=== PATIENT | female | born 1940 | race Caucasian/White ===

== ENCOUNTER 2016-03-29 20:23 | Inpatient (IN) | payer MEDICARE, BC ==
[2016-03-29 20:57] LABS: Basophils # (A) 0.1 k/uL (0-0.2); Basophils % (A) 1 %; CH 30.2; Eosinophils # (A) 0.1 k/uL (0-0.7); Eosinophils % (A) 1 %; HCT 44.2 % (34.0-46.0); HDW 2.35; HGB 13.9 gm/dL (11.4-16.0); Luc # (Auto) 0.12; Luc % (Auto) 1; Lymphocytes # (A) 1.9 k/uL (1.0-4.8); Lymphocytes % (A) 15 %; MCH 29.8 pg (25.0-35.0); MCHC 31.4 g/dL (31.0-37.0); Mean Platelet Volume 7.9; Monocytes # (A) 0.6 k/uL (0-1.0); Monocytes % (A) 5 %; Neutrophils # (A) 9.8 k/uL (1.3-7.7); Neutrophils % (A) 77 %; RBC 4.65 m/uL (3.80-5.40); RDW 12.7 % (11.5-15.5); WBC 12.6 k/uL (3.8-10.6)
[2016-03-29 21:14] LABS: Calcium 10.4 mg/dL (8.4-10.2); Potassium 4.7 mmol/L (3.5-5.1); Total Bilirubin 0.6 mg/dL (0.2-1.3); Total Protein 8.1 g/dL (6.3-8.2)
[2016-03-29 21:15] LABS: INR 1.2 (<1.1); Partial Thromboplastin Time 25.5 sec (22.0-30.0); Prothrombin Time 11.5 sec (9.0-12.0)
[2016-03-29 21:35] LABS: Creatine Kinase 48 U/L (30-135)
--- NOTE | 2016-03-29 21:37 | XR ---
EXAMINATION TYPE: XR chest 1V portable DATE OF EXAM: 03/29/2016 9:01 PM COMPARISON: August 07, 2013 HISTORY: Pain TECHNIQUE: Single frontal view of the chest is obtained. FINDINGS: EKG leads are noted. There is mild silhouetting of the pulmonary vasculature bilaterally by a subtle fine reticular pattern of increased density. This suggests mild interstitial phase pulmonar y edema if clinically corroborated. Cardiac silhouette size appears top normal. Pleural spaces are negative. Bones and soft tissues are unremarkable. IMPRESSION: SUBTLE BILATERAL INTERSTITIAL PATTERN SUGGESTS MILD INTERSTITIAL PHASE PULMONARY EDEMA.
--- NOTE | 2016-03-29 21:45 | ED ---
Chest Pain HPI - General Chief Complaint: Chest Pain Stated Complaint: Dr Mcadams/Chest tightness Time Seen by Provider: 03/29/16 20:37 Source: patient, family, RN notes reviewed Mode of arrival: ambulatory Limitations: no limitations - History of Present Illness Initial Comments: This patient is a 75-year-old woman who complains of some episodes of chest pain which is been going on yesterday and today. The patient states that she gets a heavy feeling when she exerts like going up and down the stairs. She states that it is over the sternal area, mild, heavy, and intermittent. She states that it goes away after she sits and rests for moment. The patient also has been having a little bit of dyspnea when she exerts herself. She denies diaphoresis, nausea or vomiting, dyspnea at rest, palpitations or syncope. The patient notes that probably last week she had cold-like symptoms and thought that she had cold or flu. She still has just a little bit of a nonproductive cough, though she states that symptoms are better than they had been. She had not had any preceding chest pains. MD Complaint: chest pain Onset/Timin -: days(s) Onset: during exertion Pain Location: substernal Pain Radiation: none Severity: mild Quality: heaviness Consistency: intermittent Improves With: rest Worsens With: exertion Other Symptoms: cough Treatments Prior to Arrival: none - Related Data Home Medications Medication Instructions Recorded Confirmed Calcium Carbonate [Calcium] 600 mg PO DAILY 03/29/16 03/29/16 Fenofibrate Nanocrystallized 145 mg PO HS 03/29/16 03/29/16 [Fenofibrate] Levothyroxine Sodium [Synthroid] 125 mcg PO DAILY 03/29/16 03/29/16 Loratadine [Claritin] 10 mg PO DAILY 03/29/16 03/29/16 Metoprolol Succinate (ER) [Toprol 25 mg PO HS 03/29/16 03/29/16 Xl] Metoprolol Succinate (ER) [Toprol 50 mg PO [facility] 03/29/16 03/29/16 Xl] Multivit-Min/FA/Lycopene/Lut 1 tab PO DAILY 03/29/16 03/29/16 [Centrum Silver Tablet] Omeprazole 20 mg PO DAILY PRN 03/29/16 03/29/16 Previous Rx's Medication Instructions Recorded Furosemide [Lasix] 20 mg PO DAILY #10 tab 03/29/16 Allergies Allergy/AdvReac Type Severity Reaction Status Date / Time clarithromycin [From Biaxin] Allergy Unknown Verified 03/29/16 20:55 gemifloxacin [From Factive] Allergy Unknown Verified 03/29/16 20:55 prednisone Allergy Unknown Verified 03/29/16 20:55 Review of Systems ROS Statement: Those systems with pertinent positive or pertinent negative responses have been documented in the HPI. ROS Other: All systems not noted in ROS Statement are negative. Constitutional: Denies: fever, chills, weakness Respiratory: Reports: cough. Denies: dyspnea, wheezes, hemoptysis Cardiovascular: Reports: chest pain, dyspnea on exertion, orthopnea. Denies: palpitations, edema, syncope Gastrointestinal: Denies: abdominal pain, nausea, vomiting Genitourinary: Denies: dysuria, hematuria Musculoskeletal: Denies: back pain Skin: Denies: rash Neurological: Denies: headache, weakness, numbness EKG Findings - EKG Results: EKG: interpreted by KARLENE, sinus rhythm, normal axis, normal QRS, normal ST/T EKG shows: tachycardia (Rate 111) Past Medical History Past Medical History: Hyperlipidemia, Hypertension, Thyroid Disorder History of Any Multi-Drug Resistant Organisms: None Reported Past Surgical History: Section, Orthopedic Surgery Additional Past Surgical History / Comment(s): total right knee replacement Past Psychological History: No Psychological Hx Reported Smoking Status: Never smoker Past Alcohol Use History: None Reported Past Drug Use History: None Reported General Exam Limitations: no limitations General appearance: alert, in no apparent distress Head exam: Present: atraumatic, normocephalic Eye exam: Present: normal appearance. Absent: scleral icterus, conjunctival injection ENT exam: Present: normal oropharynx Neck exam: Present: normal inspection Respiratory exam: Present: rales (Bilateral lower lung stoll). Absent: respiratory distress, wheezes, rhonchi, stridor, chest wall tenderness, accessory muscle use, decreased breath sounds, prolonged expiratory Cardiovascular Exam: Present: regular rate, normal rhythm, normal heart sounds. Absent: systolic murmur, diastolic murmur, rubs, gallop GI/Abdominal exam: Present: soft. Absent: distended, tenderness, guarding, rebound, mass Extremities exam: Present: normal inspection, normal capillary refill. Absent: pedal edema, calf tenderness Back exam: Present: normal inspection. Absent: CVA tenderness (R), CVA tenderness (L) Neurological exam: Present: alert Skin exam: Present: warm, dry, intact, normal color. Absent: rash, cyanosis, diaphoretic, erythema, petechiae, pallor, mottled Course Vital Signs 03/29/16 03/29/16 03/29/16 20:32 21:02 21:37 Temperature 97.6 F 98.3 F Pulse Rate 102 H 88 Respiratory 20 22 20 Rate Blood Pressure 175/77 156/92 O2 Sat by Pulse 88 L 97 Oximetry 03/29/16 03/29/16 22:00 22:45 Temperature Pulse Rate 97 99 Respiratory 18 20 Rate Blood Pressure 155/70 153/72 O2 Sat by Pulse 97 85 L Oximetry - Reevaluation(s) Reevaluation #1: 03/29/16 23:02 Patient ambulated to the bathroom prior to discharge and pulse oximetry is down to 85% and she does have some dyspnea, therefore will admit patient to have the echocardiogram and cardiology consultation. Sats have improved with the nasal cannula. Chest Pain MDM - MDM Patient is a 75-year-old woman who presents mainly with exertional dyspnea and on the exam she does have some findings suggestive of mild CHF. In addition her room air pulse oximetry was low on arrival. The workup does reveal some mild CHF. I discussed the findings with the patient and I was going to admit her in the hospital to have echocardiogram and cardiology consultation, but the patient states that she would like to have this done as outpatient possible, and she does feel better following medications. Will give a course of diuretics to use at home and we have reviewed appropriate return parameters. She is going to call the cardiology office in the morning to establish follow- up if there is any difficulty with this plan return here to have the workup as an inpatient. At this point I suspect the patient may have had some mild cardiomyopathy following the upper respiratory infection as she does not describe any symptoms suggestive of a missed WI or ischemia. Disposition Clinical Impression: CHF (congestive heart failure) Disposition: ADMITTED IP TO THIS HOSP Condition: Fair Instructions: Heart Failure (ED) Additional Instructions: As we discussed, follow-up with the applications consultant's tomorrow or the next day. Call the office first thing for an appointment. They will perform an echocardiogram. If your symptoms recur return to the hospital and this test and a cardiology consultation will be arranged as an inpatient. Should any of the other symptoms that we discussed develop return immediately. Prescriptions: Furosemide [Lasix] 20 mg PO DAILY #10 tab Referrals: Paul Bonilla DO [Primary Care Provider] - 1-2 days Melvin Oviedo MD [STAFF PHYSICIAN] - 1-2 days
[2016-03-29 21:47] LABS: Creatine Kinase MB 1.2 ng/mL (0.0-2.4); Troponin I <0.012 ng/mL (0.000-0.034)
[2016-03-29] MEDS ORDERED: NITROGLYCERIN OINT 1 INCH/GM PACKET TOPICAL STA (21:54)
[2016-03-29] MEDS ORDERED: FUROSEMIDE 10 MG/ML 4 ML VIAL IV STA (21:54)
[2016-03-29] MEDS ORDERED: PANTOPRAZOLE 40 MG TABLET PO PRN (23:01)
[2016-03-30] MEDS: FUROSEMIDE 10 MG/ML 4 ML VIAL IV SCH ×2 (01:04→12:01)
[2016-03-30 03:38] VITALS: BMI 26.6
[2016-03-30] MEDS ORDERED: METOPROLOL TARTRATE 50 MG TAB PO SCH (09:00)
[2016-03-30] MEDS: CALCIUM CARBONATE 500 MG CHEWABLE PO SCH (09:01)
[2016-03-30] MEDS: MULTIVITAMINS, THERA 1 EACH TAB PO SCH (09:02)
[2016-03-30] MEDS: NITROGLYCERIN OINT 1 INCH/GM PACKET TOPICAL SCH ×2 (09:02→12:00)
[2016-03-30] MEDS: LEVOTHYROXINE 125 MCG TAB PO SCH (09:02)
[2016-03-30] MEDS ORDERED: NITROGLYCERIN SL TABS 0.4 MG TAB SUBLINGUAL PRN (10:12)
[2016-03-30 10:47] LABS: Cholesterol 168 mg/dL (<200); HDL Cholesterol 34 mg/dL (40-60); Triglycerides 156 mg/dL (<150)
--- NOTE | 2016-03-30 11:50 | ECHOF ---
Referral Reason:Heart Failure MEASUREMENTS -------- HEIGHT: 157.5 cm WEIGHT: 65.8 kg BP: 138/70 RVIDd: 2.1 cm (< 3.3) IVSd: 1.1 cm (0.6 - 1.1) LVIDd: 4.3 cm (3.9 - 5.3) LVPWd: 1.2 cm (0.6 - 1.1) IVSs: 1.8 cm LVIDs: 3.2 cm LVPWs: 1.7 cm LA Diam: 3.8 cm (2.7 - 3.8) LAESV Index (A-L): 31.08 ml/m Ao Diam: 2.5 cm (2.0 - 3.7) AV Cusp: 1.2 cm (1.5 - 2.6) LA Diam: 4.0 cm (2.7 - 3.8) MV EXCURSION: 9.024 mm (> 18.000) MV EF SLOPE: 17 mm/s (70 - 150) EPSS: 1.0 cm MV E Lobo: 1.38 m/s MV DecT: 273 ms MV A Lobo: 0.03 m/s MV E/A Ratio: 53.54 AV maxP.29 mmHg AV meanP.45 mmHg AR PHT: 2656 ms RAP: 5.00 mmHg RVSP: 43.21 mmHg FINDINGS -------- Sinus rhythm. This was a technically good study. There is borderline concentric left ventricular hypertrophy. Overall left ventricular systolic function is normal with, an EF between 55 - 60 %. The right ventricle is normal in size. LA is midly dilated 29-33ml/m2. The right atrial size is normal. Aortic valve is trileaflet and is mildly thickened. There is mild aortic regurgitation. Peak/mean gradient across the Aortic Valve is 19.29mmHg / 9.45mmHg. The mitral valve leaflets are mildly thickened. Mild mitral annular calcification present. There is trace mitral regurgitation. The peak and mean MV gradients are 20.38mmHg 8.84mmHg as measured by doppler. Mild mitral stenosis. Mild tricuspid regurgitation present. There is mild pulmonary hypertension. The right ventricular systolic pressure, as measured by Doppler, is 43.21mmHg. Pulmonic valve appears structurally normal. The aortic root size is normal. Normal inferior vena cava with normal inspiratory collapse consistent with estimated right atrial pressure of 5 mmHg. There is a small, generalized pericardial effusion present. CONCLUSIONS -------- 1. Sinus rhythm. 2. Peak/mean gradient across the Aortic Valve is 19.29mmHg / 9.45mmHg. 3. The mitral valve leaflets are mildly thickened. 4. Mild mitral annular calcification present. 5. There is trace mitral regurgitation. 6. The peak and mean MV gradients are 20.38mmHg 8.84mmHg as measured by doppler. 7. Mild mitral stenosis. 8. Mild tricuspid regurgitation present. 9. There is mild pulmonary hypertension. 10. The right ventricular systolic pressure, as measured by Doppler, is 43.21mmHg. 11. Pulmonic valve appears structurally normal. 12. This was a technically good study. 13. The aortic root size is normal. 14. There is a small, generalized pericardial effusion present. 15. There is borderline concentric left ventricular hypertrophy. 16. Overall left ventricular systolic function is normal with, an EF between 55 - 60 %. 17. The right ventricle is normal in size. 18. LA is midly dilated 29-33ml/m2. 19. The right atrial size is normal. 20. Aortic valve is trileaflet and is mildly thickened. 21. There is mild aortic regurgitation. CENTRIFUGE SEPARATOR TENDER: Karen Raygoza RDCS
--- NOTE | 2016-03-30 13:21 | ECHOS ---
DATE OF SERVICE: 03/30/2016 AGE: 75Y SEX: F HT: 62 WT: 145 lbs. Protocol Hamzah: X Others: Stress Echo Stage: II Dur. of Exercise: 4 minutes *Heart Rate Blood Pressure *Rest: 86 Rest: 120/61 * *Max. Achieved: 125 Maximum BP: 147/56 85% PMHR: 125 100% PMHR: 147 *METS: 5 INDICATIONS: Chest pain. MEDICATIONS: CLINICAL INFORMATION: Patient admitted to the hospital with chest pressure suggestive of angina, some left ventricular dysfunction, possibly felt to be secondary to ischemia, history of hypertension, family history of coronary artery disease. Patient is not a smoker. Not a diabetic. Patient has mild aortic regurgitation, mild mitral regurgitation and mitral annular stenosis. Resting ECG shows sinus rhythm, rate of 86 beats per minute, LA interval of 0.16, QRS of 0.08, normal ST-T waves. Utilizing a standard Hamzah protocol, a symptom limited treadmill test was performed. Patient exercised for total of 4 minutes, attained a peak heart rate of 125 beats per minute, which is approximately 85% predicted maximum heart rate. Exercise test was terminated because of fatigue and leg cramps. Patient did not have any significant ST segment deviations indicative of ischemia. Minimal J-point depression was noted without any symptoms. Patient's baseline images show normal thickening and contractility. Postexercise images show improved contractility and thickening consistent with normal stress echocardiogram. STOCKROOM WORKER IMPRESSION: 1. Normal stress echocardiogram. 2. Patient has average level of cardiopulmonary fitness as indicated by VO2 max and METs. The patient attained peak metabolic activity equivalent to 5 METs.
--- NOTE | 2016-03-30 14:31 | CONS ---
DATE OF CONSULTATION: PATIENT IS ALLERGIC TO ( ) ERYTHROMYCIN, PREDNISONE, ( )FLOXACIN. Patient admitted to the hospital with increasing chest heaviness and pressure with exertion and also some shortness of breath. Patient was found to have mild pulmonary congestion. Patient is known to have long-standing history of hypertension for over 10 years, has been on metoprolol 75 mg p.o. daily. Patient is also on Lasix 20 mg p.o. daily at home. Patient is on Fenofibrate 160 mg p.o. daily. Patient is a nonsmoker. Other medications include: 1. Protonix 40 mg p.o. daily. 2. Levothyroxine 125 mcg p.o. daily. 3. Aspirin 1 tablet daily. Patient is a nonsmoker, not a diabetic. No previous history of myocardial infarction. Patient is fairly active, walks about 1 and 1/4 mile every day. Lives with her . Patient has 2 sons and one daughter and babysits her grandkids and fairly active. Patient has been experiencing these symptoms of exertional chest pain, heaviness and pressure, across the epicardium, associated with some shortness of breath for the last couple of weeks. Patient's symptoms highly suggestive of new onset of angina. Needs work-up for angina. We will get an echocardiogram and a stress echo and patient is on appropriate medications and has been on nitrates and beta blockers. Patient needs to be checked for any lipid panel, was not done. Patient's past history and review of systems are essentially unremarkable other than what is stated in the presenting illness. Physical examination revealed well-developed, well-nourished 75-year-old female not in acute distress, oriented x3 with a pulse rate of 90 beats per minute and regular, blood pressure of 120/74, respirations 20. Head normocephalic. HEENT unremarkable. Neck is supple. No JVD. CARDIAC EXAMINATION: Regular rate and rhythm. S1 and S2. Early diastolic murmur noted in the aortic area, grade 2/6 and S3 gallop is noted. Lungs are clinically clear to auscultation and percussion. ABDOMEN: Soft, no organomegaly. Active bowel sounds. EXTREMITIES: Peripheral pulses. No pedal edema. SENIOR DIRECTOR examination: Grossly within normal limits. We will also do BNP levels and get the stress echo. We will also get a lipid panel. ASSESSMENT: 1. New onset of unstable angina. 2. Left ventricular dysfunction, probably secondary to ischemia without any overt failure. 3. Hypertension. 4. Rule out hyperlipidemia. RECOMMENDATIONS: Concur with current therapy. Will proceed with stress echocardiogram and echocardiogram and get BNP levels and lipid panel. If lipids are elevated, we will start her on lipid-lowering agents.
--- NOTE | 2016-03-30 14:47 | CONS ---
DATE OF CONSULTATION: ADDENDUM: Addendum to the additional diagnosis is mild mitral stenosis. RECOMMENDATIONS: Patient advised to increase the Lopressor to 50 mg p.o. b.i.d., continue Lasix 40 mg p.o. daily along with Fenofibrate, aspirin, nitroglycerin as needed. Patient advised to follow with me in 1 to 2 weeks from now. Patient had a normal stress echo and normal stress echo. Echocardiogram showed mild aortic regurgitation, mild mitral regurgitation and beta rosario is recommended because of mitral stenosis.
[2016-03-30] MEDS: IPRATROPIUM-ALBUTEROL 3 ML NEB INHALATION SCH ×3 (15:36→19:30)
--- NOTE | 2016-03-30 16:03 | HP ---
DATE OF ADMISSION: 03/30/2016 PRESENTING COMPLAINT: Short of breath, cough. HISTORY OF PRESENTING COMPLAINT: This is a very pleasant 75-year-old patient of Dr. Jj whose chronic stable medical conditions include hypertension, hyperlipidemia, hypothyroid. The patient does not have any prior cardiac history. Patient has been battling a cold for about 3 weeks, for one week she has become more short of breath and some chest tightness. Denies any edema. No orthopnea. She has got a cough. No fever. Feels congested. Patient went to her family doctor. She was told she has an enlarged heart and possibly CHF and came to the ER, given Lasix. The patient now having some chest tightness. REVIEW OF SYSTEMS: CONSTITUTIONAL: Tired. HEENT: None. RESPIRATORY: As above. CARDIOVASCULAR: As above. GASTROINTESTINAL: None. GENITOURINARY: None. MUSCULOSKELETAL: None. Dermatological: None. HEMATOLOGICAL: None. LYMPHATICS: None. PSYCHIATRY: None. NEUROLOGICAL: None. PAST MEDICAL HISTORY: Hypertension, hyperlipidemia and hypothyroid. PAST SURGICAL HISTORY: , right total knee replacement. SOCIAL HISTORY: No smoking. No alcohol. . FAMILY HISTORY: Noncontributory to presentation. HOME MEDICATIONS: 1. Omeprazole 20 mg daily p.r.n. 2. Centrum Silver 1 tablet p.o. daily. 3. Toprol-XL 25 mg at night. 50 mg in morning. 4. ( ). 5. Biaxin. 6. Prednisone. On examination vital signs on presentation: Temperature 97.6, pulse 102, respirations 20, blood pressure 175/77, pulse ox 88% on room air. Repeat 156/92. GENERAL APPEARANCE: Average build, sitting up, not in distress. EYES: Pupils equal. Conjunctivae normal. HEENT: External appearance of nose and ears normal. Oral cavity normal. NECK: JVD not raised. Mass not palpable. RESPIRATORY: Effort increased. LUNGS: Bilateral coarse basal crackles. CARDIOVASCULAR: First and second sounds normal. No edema. ABDOMEN: Soft, nontender. Liver and spleen not palpable. LYMPHATIC: No lymph nodes palpable in the neck and axilla. PSYCHIATRY: Alert and oriented x3. Mood and affect normal. Dermatological: Pupils equal. Cranial nerves grossly intact. Power and sensation grossly intact. INVESTIGATIONS: White count 12.6, hemoglobin 13.9. Potassium 4.7. BUN 21, creatinine 1.16. Troponin is actually negative, proBNP 496. Chest x-ray shows some bilateral interstitial pattern. 2-D echocardiogram shows preserved LV function. EF 55% to 60%. ASSESSMENT: 1. Possible bilateral viral pneumonitis. Given that patient proBNP is low, no edema. No JVD. Minimal orthopnea. 2. Possible mild congestive heart failure exacerbation on presentation from diastolic dysfunction. 3. Essential hypertension. 4. Hyperlipidemia. 5. Hypothyroidism. PLAN: Patient initially put on Lasix. We will put the patient on Claritin-D, bronchodilator. Home medications will be resumed. Cardiology was consulted, who ordered a stress test. Care was discussed in detail with the patient and at the bedside. Questions were answered.
[2016-03-30] MEDS: guaiFENesin 600 MG TABLET.ER PO SCH (16:14)
[2016-03-30] MEDS: LORATADINE-PSEUDOEPH 5-120 MG 1 EACH TAB.ER.12H PO SCH (16:14)
[2016-03-30] MEDS: ENOXAPARIN 40 MG/0.4 ML SYRINGE SQ SCH (16:15)
[2016-03-30] MEDS ORDERED: METOPROLOL TARTRATE 25 MG TAB PO SCH (21:00)
[2016-03-30] MEDS ORDERED: FENOFIBRATE 160 MG TAB PO SCH (21:00)
[2016-03-31] MEDS: guaiFENesin 600 MG TABLET.ER PO SCH ×2 (00:39→08:20)
[2016-03-31] MEDS: LORATADINE-PSEUDOEPH 5-120 MG 1 EACH TAB.ER.12H PO SCH ×2 (00:39→08:19)
[2016-03-31] MEDS: METOPROLOL TARTRATE 50 MG TAB PO SCH ×2 (00:39→08:19)
[2016-03-31] MEDS: CALCIUM CARBONATE 500 MG CHEWABLE PO SCH (00:40)
[2016-03-31] MEDS: ASPIRIN 325 MG TAB PO SCH ×2 (00:41→08:19)
[2016-03-31 07:18] VITALS: BP 150/63; RESP 16; TEMP 97.5
[2016-03-31] MEDS: LEVOTHYROXINE 125 MCG TAB PO SCH (08:19)
[2016-03-31] MEDS: MULTIVITAMINS, THERA 1 EACH TAB PO SCH (08:19)
[2016-03-31] MEDS: ENOXAPARIN 40 MG/0.4 ML SYRINGE SQ SCH (08:20)
[2016-03-31] MEDS ORDERED: LORATADINE 10 MG TAB PO SCH (09:00)
[2016-03-31] MEDS ORDERED: FUROSEMIDE 40 MG TAB PO SCH (09:00)
[2016-03-31] MEDS: IPRATROPIUM-ALBUTEROL 3 ML NEB INHALATION SCH ×2 (09:12→12:04)
[2016-03-31 12:16] VITALS: PULSE 84
--- NOTE | 2016-04-01 15:28 | DS ---
DATE OF ADMISSION: 03/29/2016 DATE OF DISCHARGE: 03/31/2016 FINAL DIAGNOSES: 1. Possible bilateral viral pneumonitis. 2. 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 3. Essential hypertension. 4. Hyperlipidemia. 5. Hypothyroidism. HOSPITAL COURSE: This patient for about a month has been having short of breath, cough, some ( ) sputum production. Physical exam did show bilateral crackles. A 2-D echo showed preserved LV function, even with Lasix the crackles did not change much. I think probably the patient has viral pneumonitis. BNP was not bad. There is low white count. The patient does feel better with better with Claritin-D and some bronchodilators. If the patient's symptoms do not get better as an outpatient, she will need a ( ) CT scan to rule out any pulmonary fibrosis, but I still think it is primarily a viral pneumonitis. CONSULTATIONS: Dr. Delta Schaefer from Cardiology. Patient did have a stress echocardiogram that was unremarkable. Day of discharge care was discussed in detail with the patient. On examination showed bilateral crackles bases. A 2-D echo showed preserved LV function. LDL is 108. Troponins are negative. ProBNP if 496; repeat is 574. DISCHARGE MEDICATIONS: 1. Calcium 600 mg p.o. daily. 2. TriCor 145 p.o. q.h.s. 3. Lasix 20 mg p.o. daily. 4. Synthroid 125 mcg p.o. daily. 5. Centrum Silver 1 tablet p.o. daily. 6. Omeprazole 20 mg daily. 7. Ventolin HFA 1 to 2 puffs q.6 p.r.n. 8. Lasix 20 mg daily. 9. Claritin-D 1 tablet twice a day, 14 tablets. 10. Lopressor 50 mg p.o. b.i.d., new dose. 11. Mucinex 1200 mg p.o. q.12. Follow with Dr. Oviedo in 10 days; follow with Dr. Bonilla in 3 days. DC planning more than 35 minutes.
== END 2016-03-31 15:19 | disposition home or self-care (01) | DRG 193 ==
LOC: EC 20:23 → 3SUR 22:57
PROVIDERS: ADMIT Hospitalist; ATTEND Hospitalist
PROC: 4A02XM4 Measurement of Cardiac Total Activity, External Approach (ICD-10-PCS; principal; 2016-03-30)
PROC: B246ZZZ Ultrasonography of Right and Left Heart (ICD-10-PCS; 2016-03-30)
DX: J12.9 Viral pneumonia, unspecified (principal); I50.33 Acute on chronic diastolic (congestive) heart failure; I11.0 Hypertensive heart disease with heart failure; E78.5 Hyperlipidemia, unspecified; R00.0 Tachycardia, unspecified; E03.9 Hypothyroidism, unspecified; I08.0 Rheumatic disorders of both mitral and aortic valves; Z79.899 Other long term (current) drug therapy; Z88.8 Allergy status to other drugs, medicaments and biological substances; Z88.1 Allergy status to other antibiotic agents; Z96.651 Presence of right artificial knee joint; Z86.19 Personal history of other infectious and parasitic diseases
CPT/HCPCS: 36415; 71010; 80053; 80061; 82550; 82553; 83735; 83880; 84484; 85025; 85610; 85730; 93005; 93017; 93306; 93350; 94640; 94760; 96374; 99285

== ENCOUNTER 2016-04-01 09:39 | Inpatient (IN) | payer MEDICARE, BC ==
[2016-04-01] MEDS ORDERED: IBUPROFEN 600 MG TAB PO STA (10:01)
[2016-04-01] MEDS ORDERED: ACETAMINOPHEN TAB 500 MG TAB PO STA (10:01)
--- NOTE | 2016-04-01 10:16 | ED ---
General Adult HPI - General Chief complaint: Shortness of Breath Stated complaint: SOB, RECENTLY DISCHARGED Time Seen by Provider: 04/01/16 09:45 Source: patient, RN notes reviewed Mode of arrival: ambulatory Limitations: no limitations - History of Present Illness Initial comments: This is a 75-year-old female presents to the emergency department complaining of difficulty breathing. Patient states she came into the hospital on was discharged yesterday and told she had some fluid on the lungs. Patient states at home today she was still having difficulty breathing and felt some chills. Patient denies any chest pain or palpitations. Patient denies coughing up any sputum. Patient denies any significant cough. Patient denies any lightheadedness dizziness or near syncopal episode. Patient denies any headache. Patient denies abdominal pain patient denies nausea vomiting or diarrhea. She states she has been on Lasix but has not helped her shortness of breath. - Related Data Home Medications Medication Instructions Recorded Confirmed Calcium Carbonate [Calcium] 600 mg PO DAILY 03/29/16 04/01/16 Fenofibrate Nanocrystallized 145 mg PO HS 03/29/16 04/01/16 [Fenofibrate] Levothyroxine Sodium [Synthroid] 125 mcg PO DAILY 03/29/16 04/01/16 Multivit-Min/FA/Lycopene/Lut 1 tab PO DAILY 03/29/16 04/01/16 [Centrum Silver Tablet] Omeprazole 20 mg PO DAILY PRN 03/29/16 04/01/16 Previous Rx's Medication Instructions Recorded Furosemide [Lasix] 20 mg PO DAILY #10 tab 03/29/16 Albuterol Inhaler [Ventolin Hfa 1 - 2 puff INHALATION Q6HR PRN #1 03/31/16 Inhaler] inhaler Furosemide [Lasix] 20 mg PO DAILY #30 tab 03/31/16 Loratadine-Pseudoeph 5-120 mg 1 each PO Q12HR #14 tab.er.12h 03/31/16 [Claritin-D 12 Hour] Metoprolol Tartrate [Lopressor] 50 mg PO BID #60 tab 03/31/16 guaiFENesin [Mucinex] 1,200 mg PO Q12HR #20 tablet.er 03/31/16 Allergies Allergy/AdvReac Type Severity Reaction Status Date / Time clarithromycin [From Biaxin] Allergy Unknown Verified 04/01/16 09:46 gemifloxacin [From Factive] Allergy Unknown Verified 04/01/16 09:46 prednisone Allergy Unknown Verified 04/01/16 09:46 Review of Systems ROS Statement: Those systems with pertinent positive or pertinent negative responses have been documented in the HPI. ROS Other: All systems not noted in ROS Statement are negative. Past Medical History Past Medical History: Hyperlipidemia, Hypertension, Thyroid Disorder History of Any Multi-Drug Resistant Organisms: None Reported Past Surgical History: Section, Orthopedic Surgery Additional Past Surgical History / Comment(s): total right knee replacement Past Anesthesia/Blood Transfusion Reactions: No Reported Reaction Past Psychological History: No Psychological Hx Reported Smoking Status: Never smoker Past Alcohol Use History: None Reported Past Drug Use History: None Reported General Exam - General Exam Comments Initial Comments: GENERAL: Patient is well-developed and well-nourished. Patient is nontoxic and well- hydrated and is in mild distress. ENT: Neck is soft and supple. No significant lymphadenopathy is noted. Oropharynx is clear. Moist mucous membranes. Neck has full range of motion without eliciting any pain. EYES: The sclera were anicteric and conjunctiva were pink and moist. Extraocular movements were intact and pupils were equal round and reactive to light. Eyelids were unremarkable. PULMONARY: Crackles bilateral bases CARDIOVASCULAR: Patient is tachycardic at 130 beats a minute. ABDOMEN: Soft and nontender with normal bowel sounds. No palpable organomegaly was noted. There is no palpable pulsatile mass. SKIN: Skin is clear with no lesions or rashes and otherwise unremarkable. NEUROLOGIC: Patient is alert and oriented x3. Cranial nerves II through XII are grossly intact. Motor and sensory are also intact. Normal speech, volume and content. Symmetrical smile. MUSCULOSKELETAL: Normal extremities with adequate strength and full range of motion. s. LYMPHATICS: No significant lymphadenopathy is noted PSYCHIATRIC: Normal psychiatric evaluation. Limitations: no limitations Course Vital Signs 04/01/16 04/01/16 04/01/16 09:41 10:00 11:10 Temperature 97.2 F L 100.9 F H 97.9 F Pulse Rate 132 H 114 H Respiratory 24 17 Rate Blood Pressure 125/58 124/60 O2 Sat by Pulse 84 L 92 L Oximetry 04/01/16 04/01/16 11:31 11:57 Temperature 99.2 F Pulse Rate 111 H 113 H Respiratory 20 24 Rate Blood Pressure 113/53 O2 Sat by Pulse 91 L 84 L Oximetry Medical Decision Making - Medical Decision Making EKG shows sinus tachycardia with an occasional PAC at 126 bpm. It is under 28 QRS 72 QT interval 326 QTC of 472. Patient's EKG shows no ST segment elevation or depression or T-wave abdomen is noted Patient's computed tomography scan showed no pulmonary embolism or pneumonia. Patient's CAT scan did show some mediastinal adenopathy. Patient however continued to sat in the low 80s when he took her off the oxygen and when she ambulated. I spoke with Dr. Monroy on going to start steroids and the patient start the patient on antibiotics and consult pulmonology as well as infectious disease. Patient also to breathing treatments on the floor. Wrote admitting orders. - Lab Data Result diagrams: 04/01/16 10:03 04/01/16 10:03 Lab Results 04/01/16 04/01/16 04/01/16 Range/Units 10:03 10:03 10:03 WBC 24.2 H (3.8-10.6) k/uL RBC 4.55 (3.80-5.40) m/uL Hgb 13.9 (11.4-16.0) gm/dL Hct 42.4 (34.0-46.0) % MCV 93.2 (80.0-100.0) fL MCH 30.5 (25.0-35.0) pg MCHC 32.7 (31.0-37.0) g/dL RDW 12.7 (11.5-15.5) % Plt Count 370 (150-450) k/uL Neutrophils % 94 % Lymphocytes % 3 % Monocytes % 2 % Eosinophils % 1 % Basophils % 0 % Neutrophils # 22.6 H (1.3-7.7) k/uL Lymphocytes # 0.6 L (1.0-4.8) k/uL Monocytes # 0.4 (0-1.0) k/uL Eosinophils # 0.3 (0-0.7) k/uL Basophils # 0.1 (0-0.2) k/uL PT (9.0-12.0) sec INR (<1.1) APTT (22.0-30.0) sec D-Dimer 1.89 H (<0.60) mg/L FEU Sodium (137-145) mmol/L Potassium (3.5-5.1) mmol/L Chloride (98-107) mmol/L Carbon Dioxide (22-30) mmol/L Anion Gap mmol/L BUN (7-17) mg/dL Creatinine (0.52-1.04) mg/dL Est GFR (MDRD) Af Amer (>60 ml/min/1.73 sqM) Est GFR (MDRD) Non-Af (>60 ml/min/1.73 sqM) Glucose (74-99) mg/dL Plasma Lactic Acid Gabriel (0.7-2.0) mmol/L Calcium (8.4-10.2) mg/dL Total Bilirubin (0.2-1.3) mg/dL AST (14-36) U/L ALT (9-52) U/L Alkaline Phosphatase (38-126) U/L Total Creatine Kinase 61 (30-135) U/L CK-MB (CK-2) 1.0 (0.0-2.4) ng/mL CK-MB (CK-2) Rel Index 1.6 Troponin I 0.013 (0.000-0.034) ng/mL NT-Pro-B Natriuret Pep pg/mL Total Protein (6.3-8.2) g/dL Albumin (3.5-5.0) g/dL Urine Color Urine Appearance (Clear) Urine pH (5.0-8.0) Ur Specific [place] (1.001-1.035) Urine Protein (Negative) Urine Glucose (UA) (Negative) Urine Ketones (Negative) Urine Blood (Negative) Urine Nitrate (Negative) Urine Bilirubin (Negative) Urine Urobilinogen (<2.0) mg/dL Ur Leukocyte Esterase (Negative) Urine RBC (0-5) /hpf Urine WBC (0-5) /hpf Ur Squamous Epith Cells (0-4) /hpf Urine Bacteria (None) /hpf Hyaline Casts (0-2) /lpf Urine Mucus (None) /hpf Influenza Type A RNA (Not Detectd) Influenza Type B (PCR) (Not Detectd) 04/01/16 04/01/16 04/01/16 Range/Units 10:03 10:03 10:03 WBC (3.8-10.6) k/uL RBC (3.80-5.40) m/uL Hgb (11.4-16.0) gm/dL Hct (34.0-46.0) % MCV (80.0-100.0) fL MCH (25.0-35.0) pg MCHC (31.0-37.0) g/dL RDW (11.5-15.5) % Plt Count (150-450) k/uL Neutrophils % % Lymphocytes % % Monocytes % % Eosinophils % % Basophils % % Neutrophils # (1.3-7.7) k/uL Lymphocytes # (1.0-4.8) k/uL Monocytes # (0-1.0) k/uL Eosinophils # (0-0.7) k/uL Basophils # (0-0.2) k/uL PT (9.0-12.0) sec INR (<1.1) APTT (22.0-30.0) sec D-Dimer (<0.60) mg/L FEU Sodium 141 (137-145) mmol/L Potassium 4.7 (3.5-5.1) mmol/L Chloride 100 (98-107) mmol/L Carbon Dioxide 26 (22-30) mmol/L Anion Gap 15 mmol/L BUN 27 H (7-17) mg/dL Creatinine 0.89 (0.52-1.04) mg/dL Est GFR (MDRD) Af Amer >60 (>60 ml/min/1.73 sqM) Est GFR (MDRD) Non-Af >60 (>60 ml/min/1.73 sqM) Glucose 148 H (74-99) mg/dL Plasma Lactic Acid Gabriel 2.2 H* (0.7-2.0) mmol/L Calcium 10.3 H (8.4-10.2) mg/dL Total Bilirubin 1.1 (0.2-1.3) mg/dL AST 37 H (14-36) U/L ALT 33 (9-52) U/L Alkaline Phosphatase 81 (38-126) U/L Total Creatine Kinase (30-135) U/L CK-MB (CK-2) (0.0-2.4) ng/mL CK-MB (CK-2) Rel Index Troponin I (0.000-0.034) ng/mL NT-Pro-B Natriuret Pep 639 pg/mL Total Protein 7.9 (6.3-8.2) g/dL Albumin 4.0 (3.5-5.0) g/dL Urine Color Urine Appearance (Clear) Urine pH (5.0-8.0) Ur Specific [place] (1.001-1.035) Urine Protein (Negative) Urine Glucose (UA) (Negative) Urine Ketones (Negative) Urine Blood (Negative) Urine Nitrate (Negative) Urine Bilirubin (Negative) Urine Urobilinogen (<2.0) mg/dL Ur Leukocyte Esterase (Negative) Urine RBC (0-5) /hpf Urine WBC (0-5) /hpf Ur Squamous Epith Cells (0-4) /hpf Urine Bacteria (None) /hpf Hyaline Casts (0-2) /lpf Urine Mucus (None) /hpf Influenza Type A RNA (Not Detectd) Influenza Type B (PCR) (Not Detectd) 04/01/16 04/01/16 04/01/16 Range/Units 10:03 10:40 10:45 WBC (3.8-10.6) k/uL RBC (3.80-5.40) m/uL Hgb (11.4-16.0) gm/dL Hct (34.0-46.0) % MCV (80.0-100.0) fL MCH (25.0-35.0) pg MCHC (31.0-37.0) g/dL RDW (11.5-15.5) % Plt Count (150-450) k/uL Neutrophils % % Lymphocytes % % Monocytes % % Eosinophils % % Basophils % % Neutrophils # (1.3-7.7) k/uL Lymphocytes # (1.0-4.8) k/uL Monocytes # (0-1.0) k/uL Eosinophils # (0-0.7) k/uL Basophils # (0-0.2) k/uL PT 11.8 (9.0-12.0) sec INR 1.2 (<1.1) APTT 23.4 (22.0-30.0) sec D-Dimer (<0.60) mg/L FEU Sodium (137-145) mmol/L Potassium (3.5-5.1) mmol/L Chloride (98-107) mmol/L Carbon Dioxide (22-30) mmol/L Anion Gap mmol/L BUN (7-17) mg/dL Creatinine (0.52-1.04) mg/dL Est GFR (MDRD) Af Amer (>60 ml/min/1.73 sqM) Est GFR (MDRD) Non-Af (>60 ml/min/1.73 sqM) Glucose (74-99) mg/dL Plasma Lactic Acid Gabriel (0.7-2.0) mmol/L Calcium (8.4-10.2) mg/dL Total Bilirubin (0.2-1.3) mg/dL AST (14-36) U/L ALT (9-52) U/L Alkaline Phosphatase (38-126) U/L Total Creatine Kinase (30-135) U/L CK-MB (CK-2) (0.0-2.4) ng/mL CK-MB (CK-2) Rel Index Troponin I (0.000-0.034) ng/mL NT-Pro-B Natriuret Pep pg/mL Total Protein (6.3-8.2) g/dL Albumin (3.5-5.0) g/dL Urine Color Yellow Urine Appearance Cloudy H (Clear) Urine pH 5.0 (5.0-8.0) Ur Specific [place] 1.019 (1.001-1.035) Urine Protein 1+ H (Negative) Urine Glucose (UA) Negative (Negative) Urine Ketones Negative (Negative) Urine Blood Trace H (Negative) Urine Nitrate Negative (Negative) Urine Bilirubin Negative (Negative) Urine Urobilinogen 2.0 (<2.0) mg/dL Ur Leukocyte Esterase Trace H (Negative) Urine RBC 2 (0-5) /hpf Urine WBC 5 (0-5) /hpf Ur Squamous Epith Cells 2 (0-4) /hpf Urine Bacteria Rare H (None) /hpf Hyaline Casts 5 H (0-2) /lpf Urine Mucus Many H (None) /hpf Influenza Type A RNA Not Detected (Not Detectd) Influenza Type B (PCR) Not Detected (Not Detectd) Critical Care Time Critical Care Time: Yes Total Critical Care Time: 35 Disposition Clinical Impression: Dyspnea, Leukocytosis, Mediastinal adenopathy, Hypoxia Disposition: ADMITTED IP TO THIS [facility] Time of Disposition: 12:44
[2016-04-01 10:22] LABS: Basophils # (A) 0.1 k/uL (0-0.2); Basophils % (A) 0 %; CH 30.2; CHCM 32.5; Eosinophils # (A) 0.3 k/uL (0-0.7); Eosinophils % (A) 1 %; HCT 42.4 % (34.0-46.0); HDW 2.35; HGB 13.9 gm/dL (11.4-16.0); Luc # (Auto) 0.14; Luc % (Auto) 1; Lymphocytes # (A) 0.6 k/uL (1.0-4.8); Lymphocytes % (A) 3 %; MCH 30.5 pg (25.0-35.0); MCHC 32.7 g/dL (31.0-37.0); MCV 93.2 fL (80.0-100.0); Mean Platelet Volume 7.4; Monocytes # (A) 0.4 k/uL (0-1.0); Monocytes % (A) 2 %; Neutrophils # (A) 22.6 k/uL (1.3-7.7); Neutrophils % (A) 94 %; RBC 4.55 m/uL (3.80-5.40); RDW 12.7 % (11.5-15.5); WBC 24.2 k/uL (3.8-10.6); WBC (Perox) 25.24
[2016-04-01 10:28] LABS: ALT 33 U/L (9-52); AST 37 U/L (14-36); Alkaline Phosphatase 81 U/L (38-126); Anion Gap 15 mmol/L; Blood Urea Nitrogen 27 mg/dL (7-17); Calcium 10.3 mg/dL (8.4-10.2); Carbon Dioxide 26 mmol/L (22-30); Chloride 100 mmol/L (98-107); Glucose 148 mg/dL (74-99); INR 1.2 (<1.1); Non-African American GFR(MDRD) >60 (>60 ml/min/1.73 sqM); Partial Thromboplastin Time 23.4 sec (22.0-30.0); Potassium 4.7 mmol/L (3.5-5.1); Prothrombin Time 11.8 sec (9.0-12.0); Sodium 141 mmol/L (137-145); Total Bilirubin 1.1 mg/dL (0.2-1.3); Total Protein 7.9 g/dL (6.3-8.2)
--- NOTE | 2016-04-01 10:40 | XR ---
EXAMINATION TYPE: XR chest 2V DATE OF EXAM: 04/01/2016 10:21 AM COMPARISON: 03/29/2016 INDICATION: Short of breath TECHNIQUE: Frontal and lateral views of the chest are obtained. FINDINGS: The heart size is normal. The pulmonary vasculature is normal. The lungs are clear. IMPRESSION: 1. No acute pulmonary process.
[2016-04-01] MEDS ORDERED: SODIUM CHLORIDE 0.9% 500 ML IV STA (10:43)
[2016-04-01 10:52] LABS: Troponin I 0.013 ng/mL (0.000-0.034)
[2016-04-01 10:55] LABS: Appearance,Urine Cloudy (Clear); Bacteria,Urine Rare /hpf; Bilirubin,Urine Negative (Negative); Glucose,Urine (UA) Negative (Negative); Ketones,Urine Negative (Negative); Leukocyte Esterase,Urine Trace (Negative); Mucus,Urine Many /hpf; Nitrite,Urine Negative (Negative); Protein,Urine 1+ (Negative); RBC,Urine 2 /hpf (0-5); Specific Gravity,Urine 1.019 (1.001-1.035); Squamous Epithelial Cell,Urine 2 /hpf (0-4); UA Billing (MACRO vs. MICRO) MICRO; WBC,Urine 5 /hpf (0-5)
[2016-04-01] MEDS ORDERED: RX INFO: IV CONTRAST WAS GIVEN 1 EACH MISC MISCELLANE PRN (11:32)
[2016-04-01] MEDS ORDERED: SODIUM CHLORIDE 0.9% 1,000 ML IV ONE ×2 (11:32→12:44)
--- NOTE | 2016-04-01 12:03 | CT ---
CT CHEST FOR PULMONARY EMBOLISM. EXAMINATION TYPE: CT chest angio for PE DATE OF EXAM: 04/01/2016 11:52 AM INDICATION: SOB CT DLP: 194 mGycm, Automated exposure control for dose reduction was used. CONTRAST: Patient injected with 62 ml mL of Omnipaque 350. COMPARISON: NONE TECHNIQUE: CT of the chest is performed on a spiral scan at 2 mm thick sections. Study is performed with intravenous contrast timed for evaluation for pulmonary embolism. This will limit additional po rtions of the evaluation. 3-D MIP images reconstructed by the technologist are reviewed on the compu ter in the coronal and sagittal planes. FINDINGS: No persistent filling defects are evident to suggest an acute pulmonary embolism. There is enlarged nodes adjacent aortic arch. Measure 1. 2.1 cm in the 1.1 cm pretracheal lymph node is enlarged present. Subcarinal adenopathy is present. Some smaller additional adenopathy is present. Some right hilar adenopathy is likely present. Small axillary lymph nodes are present bilaterally. S upaclavicular adenopathy not identified. The ascending aorta diameter at the level of the main pulmo nary artery is 3.6 cm. The main pulmonary artery diameter at the bifurcation is 3.2 cm. Coronary art edilia calcification may be present. No suspicious infiltrates or lung masses are identified in the lung windows. Limited CT section through the upper abdomen are unremarkable. IMPRESSIONS: 1. No acute pulmonary embolism. 2. Enlarged mediastinal adenopathy. Additional workup is
[2016-04-01] MEDS ORDERED: methylPREDNISolone SOD SUCCI 125 MG/2 ML VIAL IV STA (12:20)
[2016-04-01] MEDS ORDERED: IPRATROPIUM-ALBUTEROL 3 ML NEB INHALATION STA (12:20)
[2016-04-01] MEDS ORDERED: PIPERACILLIN-TAZOBACTAM 3.375 GM in DEXTROSE/WATER 1 50ML.BAG IVPB STA (12:46)
[2016-04-01 14:25] VITALS: BMI 26.6
[2016-04-01] MEDS: IPRATROPIUM-ALBUTEROL 3 ML NEB INHALATION SCH ×2 (15:50→19:50)
[2016-04-01 17:15] LABS: Glucose,Whole Blood 186 mg/dL (75-99)
[2016-04-01] MEDS: methylPREDNISolone SOD SUCCI 125 MG/2 ML VIAL IV SCH (17:26)
[2016-04-01] MEDS: INSULIN LISPRO (humaLOG) 300 UNIT/3 ML VIAL SQ SCH ×2 (17:26→22:19)
[2016-04-01 21:46] LABS: Glucose,Whole Blood 236 mg/dL (75-99)
[2016-04-01] MEDS: PIPERACILLIN-TAZOBACTAM 3.375 GM in DEXTROSE/WATER 1 50ML.BAG IVPB SCH (22:19)
[2016-04-01] MEDS: FENOFIBRATE 160 MG TAB PO SCH (22:19)
[2016-04-01] MEDS: METOPROLOL TARTRATE 50 MG TAB PO SCH (22:19)
[2016-04-02] MEDS: IPRATROPIUM-ALBUTEROL 3 ML NEB INHALATION SCH ×7 (00:33→23:37)
[2016-04-02] MEDS: methylPREDNISolone SOD SUCCI 125 MG/2 ML VIAL IV SCH ×2 (01:20→05:38)
[2016-04-02] MEDS: PIPERACILLIN-TAZOBACTAM 3.375 GM in DEXTROSE/WATER 1 50ML.BAG IVPB SCH ×3 (05:39→21:20)
[2016-04-02 07:12] LABS: Glucose,Whole Blood 162 mg/dL (75-99)
[2016-04-02] MEDS: PANTOPRAZOLE 40 MG TABLET PO PRN (08:38)
[2016-04-02] MEDS: DOXYCYCLINE 50 MG CAP PO SCH ×2 (08:38→21:09)
[2016-04-02] MEDS: METOPROLOL TARTRATE 50 MG TAB PO SCH ×2 (08:40→21:09)
[2016-04-02] MEDS: LEVOTHYROXINE 125 MCG TAB PO SCH (08:40)
[2016-04-02] MEDS: INSULIN LISPRO (humaLOG) 300 UNIT/3 ML VIAL SQ SCH ×4 (08:40→21:10)
--- NOTE | 2016-04-02 10:45 | CONS ---
DATE OF CONSULTATION: 04/01/2016 Reason for consultation is pneumonia. HISTORY OF PRESENT ILLNESS: The patient is a 75-year-old female who was recently admitted to [facility] from 03/30 to 03/31 where the patient was treated for possible mild congestive heart failure exacerbation from diastolic and possible bilateral viral pneumonitis. The patient was discharged home on Lasix, Claritin-D, Mucinex and was to follow up with the Cardiology and her primary care physician. The patient said she went home. She was doing okay; however, in the evening, the patient started having increasing shortness of breath. The patient does have a cough, producing some yellowish sputum but no hemoptysis and the patient complaining of pain in the lower side of the chest area as well. With these symptoms, the patient presented back to the [facility] ER. The patient did have a fever of 100.9. Patient did have a CT angiogram that was negative for PE; however, it shows evidence of a pretracheal and subchondral left adenopathy. No suspicious inferior lung masses on the lung window. Patient also had a chest x-ray which was negative for any acute pulmonary process. The patient did have elevated white count of 4000. was significant positive, influenza PCR was negative. Patient was started on Zosyn. I was asked to see the patient for further recommendation regarding antibiotic. REVIEW OF SYSTEMS: CONSTITUTIONAL: Positive for weakness along with a fever. EYES: No complaint. ENT: No complaint. RESPIRATORY: As per HPI. CARDIOVASCULAR: No complaint. GENITOURINARY: No complaint. GASTROINTESTINAL: No complaint. MUSCULOSKELETAL: No complaint. ENT: No complaint. PSYCHOLOGICAL: No complaint. ENDOCRINE: No complaint. NEUROLOGIC: No complaint. Past medical history is significant for hypertension, hyperlipidemia, hypothyroidism, and diastolic dysfunction. PAST SURGICAL HISTORY: , right knee replacement. SOCIAL HISTORY: No history of smoking, drinking or drug use. She is , lives with her . FAMILY HISTORY: Pertinent findings were noticed. Allergic to CLARITHROMYCIN, PREDNISONE and GEMIFLOXACIN. Medications currently include the patient is on Humalog, Solu-Medrol, pip-tazobactam. On examination, blood pressure is 117/62 with a pulse of 71, temperature 98.3, T-max is 100.9, she is 93% on 2 L nasal cannula. General description is an elderly female, lying in bed, in no distress. No tachypnea or accessory muscle of respiration use. HEENT examination shows pallor or scleral icterus. Oral mucosal membranes dry. NECK: Trachea central. There is no thyromegaly. LUNGS: Unlabored breathing. Coarse breath sounds on the right base. No wheeze. HEART: S1, S2 with regular rate and rhythm. Abdomen is soft, no tenderness. EXTREMITIES: No edema of the feet. SKIN EXAMINATION: No rash or mass palpable. NEUROLOGICAL: Patient is awake, alert, oriented x3. Mood and affect normal. LABS: Hemoglobin is 13.9, white count of 24.2 with a BUN of 27, creatinine 0.89, plasma lactic acid elevated at 2.2. Urine is negative. She did have blood cultures obtained which are currently pending. DIAGNOSTIC IMPRESSION AND PLAN: 1. Patient presents to the hospital with sepsis and patient did have fever of 101 with elevated white count and tachycardia meeting criteria for SIRS/ sepsis Source is likely pneumonia. The patient has been in the hospital and is treated for possible viral bronchitis, more likely to include bacteria pneumonia, community acquired with gram-negative pathogen. 2. Patient to have CLARITHROMYCIN and GEMIFLOXACIN allergy to limit the number of antibiotics that will be safe to use. PLAN: 1. We will continue patient is Zosyn. I will add doxycycline for atypical. 2. Obtain sputum for culture and sensitivity. 3. Will follow up on clinical condition and cultures to further adjust the medication if needed. Thank you for this consultation. Will follow this patient along with you. ZHANE
--- NOTE | 2016-04-02 10:58 | P.CNPUL ---
History of Present Illness Consult date: 04/02/16 Reason for consult: dyspnea, asthma, abnormal CXR/CT Chief complaint: Shortness of breath History of present illness: This is a 75-year-old female who apparently was recently inpatient for an episode of shortness of breath possibly related to fluid overload. She was recently in the hospital and discharged with a diagnosis of possible CHF/fluid overload. She was given some diuretics. She was readmitted to the hospital with complaints of increasing shortness of breath. She had a CT angiogram of the chest which was negative for PE PE. The patient's CT did show evidence of some diffuse adenopathy which will require further evaluation. No infiltrates. There was no fluid overload. Her BNP was only modestly elevated. She apparently had seen Dr. Dean in the past without a firm diagnosis. She'll need a follow-up in our clinic for better evaluation. No coughing. No phlegm production. Review of Systems A 12 point review of system is positive for shortness of breath. The patient's had 2 admissions in the hospital recently for the same complaint. She feels a lot better currently. Doesn't take any pulmonary medications at home on a regular basis. Past Medical History Past Medical History: Hyperlipidemia, Hypertension, Thyroid Disorder History of Any Multi-Drug Resistant Organisms: None Reported Past Surgical History: Section, Orthopedic Surgery Additional Past Surgical History / Comment(s): total right knee replacement Past Anesthesia/Blood Transfusion Reactions: No Reported Reaction Past Psychological History: No Psychological Hx Reported Smoking Status: Never smoker Past Alcohol Use History: None Reported Past Drug Use History: None Reported Medications and Allergies Home Medications Medication Instructions Recorded Confirmed Type Calcium Carbonate [Calcium] 600 mg PO DAILY 03/29/16 04/01/16 History Fenofibrate Nanocrystallized 145 mg PO HS 03/29/16 04/01/16 History [Fenofibrate] Levothyroxine Sodium [Synthroid] 125 mcg PO DAILY 03/29/16 04/01/16 History Multivit-Min/FA/Lycopene/Lut 1 tab PO DAILY 03/29/16 04/01/16 History [Centrum Silver Tablet] Omeprazole 20 mg PO DAILY PRN 03/29/16 04/01/16 History Albuterol Inhaler [Ventolin Hfa 1 - 2 puff INHALATION RT-Q6H PRN 04/01/16 History Inhaler] Cholecalciferol [Vitamin D3] 1,000 unit PO DAILY 04/01/16 04/01/16 History Loratadine [Claritin] 10 mg PO DAILY PRN 04/01/16 04/01/16 History Metoprolol Tartrate [Lopressor] 25 mg PO HS 04/01/16 04/01/16 History Metoprolol Tartrate [Lopressor] 50 mg PO QAM 04/01/16 04/01/16 History guaiFENesin [Mucinex] 1,200 mg PO Q12HR PRN 04/01/16 04/01/16 History Allergies Allergy/AdvReac Type Severity Reaction Status Date / Time clarithromycin [From Biaxin] Allergy Unknown Verified 04/01/16 12:55 gemifloxacin [From Factive] Allergy Unknown Verified 04/01/16 12:55 prednisone Allergy Unknown Verified 04/01/16 12:55 Physical Exam Osteopathic Statement: *. No significant issues noted on an osteopathic structural exam other than those noted in the History and Physical/Consult. Vitals: Vital Signs Temp Pulse Pulse Resp BP BP Pulse Ox 04/02/16 08:45 96 04/02/16 08:35 96 97 04/02/16 07:00 96.4 F L 94 18 117/53 97 04/02/16 04:11 92 04/02/16 04:01 88 04/02/16 01:19 97.7 F 118/56 04/01/16 23:00 91 16 97/52 95 04/01/16 22:18 114 H 136/63 04/01/16 20:01 109 H 04/01/16 19:54 108 H 04/01/16 16:24 71 18 04/01/16 15:00 98.3 F 71 18 117/62 93 L 04/01/16 13:12 95 04/01/16 13:00 97.3 F L 96 107 H 17 104/57 89 L 04/01/16 12:57 98.0 F 96 17 104/55 92 L Intake and Output 04/01/16 04/02/16 04/02/16 22:59 06:59 14:59 Other: # Voids 2 1 Weight 70 kg Patient Weight 04/03/16 06:59 Weight 70 kg No acute distress, oriented 3. HEENT examination is grossly unremarkable. Mucous membranes are moist. She is wearing nasal O2. Supple. Full range of motion. No adenopathy. Cardiovascular examination reveals regular rhythm rate. S1-S2 normal. Lungs are clear breath sounds are equal. No wheezes or rhonchi. There is no crackles. Abdomen soft bowel sounds are heard. Extremities are intact. Results - Laboratory Findings CBC and BMP: 04/01/16 10:03 04/01/16 10:03 PT/INR, D-dimer PT 11.8 sec (9.0-12.0) 04/01/16 10:03 INR 1.2 (<1.1) 04/01/16 10:03 D-Dimer 1.89 mg/L FEU (<0.60) H 04/01/16 10:03 Abnormal lab findings: Abnormal Labs 04/01/16 04/01/16 04/02/16 17:14 21:36 07:10 POC Glucose (mg/dL) 186 H 236 H 162 H - Diagnostic Findings Chest x-ray: image reviewed CT scan - chest: image reviewed (Chest x-ray CAT scan are reviewed. There is no evidence of pulmonary embolism. There are some borderline enlarged lymph nodes in the chest. This could represent either lymphoma or sarcoidosis or some other entity altogether. Additional outpatient evaluation is warranted.) Assessment and Plan (1) Dyspnea Status: Acute (2) Mediastinal adenopathy Status: Acute (3) CHF (congestive heart failure) Status: Acute Plan: Plan The patient's labs x-rays and other data is reviewed. The patient may have something such as sarcoidosis going on. Another possibility would be lymphoma. She does not appear to be significantly ill at this time and I would suspect the former as opposed to the latter. She'll need a Mike level and a 24-hour urine calcium. A sed rate is not ready done should be done. This recommendation suggestions are forthcoming. Additional studies: Include a PET scan and sampling of the lymph nodes. Additional recommendations suggestions are forthcoming. Prognosis is guarded. Time with Patient: Greater than 30
[2016-04-02 11:43] LABS: Glucose,Whole Blood 126 mg/dL (75-99)
--- NOTE | 2016-04-02 12:57 | HP ---
DATE OF ADMISSION: 04/01/2016 PRESENTING COMPLAINT: Short of breath. HISTORY OF PRESENTING COMPLAINT: This is a pleasant 75-year-old patient who I discharged yesterday. The patient initially admitted to the hospital on 03/31 and initially felt to be congestive heart failure. The patient 2-D echo showed preserved LV function. A stress test was negative. Patient had significant bilateral crackles and was felt to be more of viral pneumonitis. Patient's BNP in fact done twice was only 496 and 574. The patient is felt to have viral pneumonitis. Patient was treated with Claritin-D, some bronchodilators, after which she really felt much better. Patient went home and overnight patient started feeling tired, low-grade fever, some more cough ( ) with a low fever, tachycardia. White count had jumped up. At this point, patient may be felt to have a secondary bacterial infection. CT scan of the chest was negative for PE. REVIEW OF SYSTEMS: CONSTITUTIONAL: Weak, tired, febrile. HEENT: None. RESPIRATORY: Short of breath, cough, some sputum. CARDIOVASCULAR: None. GASTROINTESTINAL: None. GENITOURINARY: None. MUSCULOSKELETAL: None. Dermatological: None. HEMATOLOGICAL: None. LYMPHATICS: None. PSYCHIATRY: None. NEUROLOGICAL: None. past medical history of hypertension, hyperlipidemia and hypothyroid. PAST SURGICAL HISTORY: , right total knee joint replacement. SOCIAL HISTORY: No smoking or alcohol. . FAMILY HISTORY: Noncontributory to the presentation. HOME MEDICATIONS: per discharge summary on 03/31/2016: 1. Calcium 600 mg p.o. daily. 2. TriCor 145 mg p.o. q.h.s. 3. Lasix 20 mg p.o. daily. 4. Synthroid 125 mcg p.o. daily. 5. Centrum Silver 1 tablet p.o. daily. 6. Omeprazole 20 mg p.o. daily. 7. Ventolin HFA 1 to 2 puffs q.6 p.r.n. 8. Lasix. 9. Claritin-D one tablet p.o. q.12. for 14 tablets. 10. Lopressor 50 mg b.i.d. 11. ( ) mg p.o. q.12. On examination T-max 100.9, pulse 130, respiratory rate 24, blood pressure 125/58, pulse ox 84% on room air. GENERAL APPEARANCE: Sitting up, tired appearing. EYES: Pupils equal, conjunctivae normal. HEENT: Oral cavity normal. NECK: JVD not raised. Mass not palpable. RESPIRATORY: Effort increased. LUNGS: Bilateral crackles. CARDIOVASCULAR: First and second seconds are normal. No edema. ABDOMEN: Soft. Liver and spleen not palpable. LYMPHATIC: No lymph nodes palpable in the neck or axilla. PSYCHIATRY: Alert and oriented x3. Mood and affect normal. NEUROLOGICAL: Pupils equal. Cranial nerves grossly intact. Power and sensation grossly intact. INVESTIGATIONS: White count 24.2, potassium 4.7. BUN 27, creatinine 0.89. Lactic acid 2.2. CT scan of the chest negative for PE. ASSESSMENT: 1. Acute viral bilateral pneumonitis with possibly superimposed bacterial infection causing sepsis-like picture. 2. Essential hypertension. 3. Hyperlipidemia. 4. Hypothyroidism. PLAN: Patient's home medications will be resumed. Patient is put on IV Zosyn and IV Solu-Medrol. Care was discussed with the patient. Consultation to pulmonary; ID, we will also get a cardiology opinion. Care was discussed at length with the patient.
--- NOTE | 2016-04-02 13:41 | P.CRDCN ---
History of Present Illness Consult date: 04/02/16 Chief complaint: Shortness of breath History of present illness: This is a 75-year-old female with history of hypertension and was recently admitted to the hospital with increasing cough and shortness of breath. Patient had cardiac evaluation at the time with an echocardiogram and also a stress echo. Echo Cardigan showed normal LV function and a stress echo was negative for ischemia. It was felt that patient most probably has viral pneumonia and bronchitis and was treated with bronchodilators . Apparently patient felt better and was discharged home but within 24 hours patient came back with complaints of increasing shortness of breath and some cough. Her chest x-ray did not reveal any significant pathology. Her white count was elevated to 24,000. Her BNP level is within normal limits for the age. Patient has significant bilateral inspiratory rales disproportionate to the findings on the chest x-ray. Computed tomography scan of the chest was negative for pulmonary emboli but has shown enlargement of the mediastinal lymph nodes. The possibility of sarcoidosis is being considered. The possibility of pulmonary fibrosis also may be considered. The findings are not consistent with CHF. She was put on steroids and antibiotics and she seemed to be feeling better at this time. I'm not suggesting any further cardiac workup at this stage. Further recommendations depend upon the clinical course and input from the emery grinder. Review of Systems REVIEW OF SYSTEMS: CONSTITUTIONAL:. Patient is doing better since admission EYES: Denies diplopia, blurring of vision EARS, NOSE, MOUTH, THROAT: Denies headaches, denies sore throat. CARDIOVASCULAR: As per the chart GASTROINTESTINAL: Denies change in appetite, denies abdominal pain, denies diarrhea GENITOURINARY: Denies hematuria, denies infections. MUSKULOSKELETAL: Denies pain, denies swelling. Denies any cramps or claudication INTEGUMENTARY: Denies rash, denies eczema. NEUROLOGICAL: Denies focal weakness, or visual disturbance. Denies any dizziness or syncope PSYCHIATRIC: Denies anxiety, denies depression. HEMATOLOGIC/LYMPHATIC: Denies any bleeding, denies enlarged lymph nodes. Past Medical History Past Medical History: Hyperlipidemia, Hypertension, Thyroid Disorder History of Any Multi-Drug Resistant Organisms: None Reported Past Surgical History: Section, Orthopedic Surgery Additional Past Surgical History / Comment(s): total right knee replacement Past Anesthesia/Blood Transfusion Reactions: No Reported Reaction Past Psychological History: No Psychological Hx Reported Smoking Status: Never smoker Past Alcohol Use History: None Reported Past Drug Use History: None Reported Medications and Allergies Home Medications Medication Instructions Recorded Confirmed Type Calcium Carbonate [Calcium] 600 mg PO DAILY 03/29/16 04/01/16 History Fenofibrate Nanocrystallized 145 mg PO HS 03/29/16 04/01/16 History [Fenofibrate] Levothyroxine Sodium [Synthroid] 125 mcg PO DAILY 03/29/16 04/01/16 History Multivit-Min/FA/Lycopene/Lut 1 tab PO DAILY 03/29/16 04/01/16 History [Centrum Silver Tablet] Omeprazole 20 mg PO DAILY PRN 03/29/16 04/01/16 History Albuterol Inhaler [Ventolin Hfa 1 - 2 puff INHALATION RT-Q6H PRN 04/01/16 History Inhaler] Cholecalciferol [Vitamin D3] 1,000 unit PO DAILY 04/01/16 04/01/16 History Loratadine [Claritin] 10 mg PO DAILY PRN 04/01/16 04/01/16 History Metoprolol Tartrate [Lopressor] 25 mg PO HS 04/01/16 04/01/16 History Metoprolol Tartrate [Lopressor] 50 mg PO QAM 04/01/16 04/01/16 History guaiFENesin [Mucinex] 1,200 mg PO Q12HR PRN 04/01/16 04/01/16 History Allergies Allergy/AdvReac Type Severity Reaction Status Date / Time clarithromycin [From Biaxin] Allergy Unknown Verified 04/01/16 12:55 gemifloxacin [From Factive] Allergy Unknown Verified 04/01/16 12:55 prednisone Allergy Unknown Verified 04/01/16 12:55 Physical Exam Vitals: Vital Signs Temp Pulse Pulse Resp BP Pulse Ox 04/02/16 08:45 96 04/02/16 08:35 96 97 04/02/16 08:00 18 04/02/16 07:00 96.4 F L 94 18 117/53 97 04/02/16 04:11 92 04/02/16 04:01 88 04/02/16 01:19 97.7 F 118/56 04/01/16 23:00 91 16 97/52 95 04/01/16 22:18 114 H 136/63 04/01/16 20:01 109 H 04/01/16 19:54 108 H 04/01/16 16:24 71 18 04/01/16 15:00 98.3 F 71 18 117/62 93 L Intake and Output 04/01/16 04/02/16 04/02/16 22:59 06:59 14:59 Other: # Voids 2 1 Weight 70 kg Patient Weight 04/03/16 06:59 Weight 70 kg GENERAL EXAM: Patient is alert and oriented and doesn't appear to be in any acute distress HEENT: Normocephalic. Normal reaction of pupils, equal size, normal range of extraocular motion. No erythema or exudates in the throat. NECK: No masses, no nuchal rigidity. CHEST: No chest wall deformity. LUNGS: Equal air entry with with bilateral inspiratory rales HEART: S1 and S2 normal with no audible mumurs or gallops. Regular rhythm, femorals equal on both sides.. ABDOMEN: No hepatosplenomegaly, normal bowel sounds, no guarding or rigidity. SKIN: No rashes CENTRAL NERVOUS SYSTEM: No focal deficits. EXTREMITIES: No cyanosis, clubbing or edema. Results 04/01/16 10:03 04/01/16 10:03 Current Medications Generic Name Dose Route Start Last Admin Trade Name Freq PRN Reason Stop Dose Admin Albuterol/Ipratropium 3 ml 04/01/16 16:00 04/02/16 12:31 Duoneb 0.5 Mg-3 Mg/3 Ml Soln INHALATION Not Given RT-Q4H PAUL Doxycycline Monohydrate 100 mg 04/02/16 09:00 04/02/16 08:38 Vibramycin PO 100 mg BID PAUL Administration Fenofibrate 160 mg 04/01/16 21:00 04/01/16 22:19 Lofibra PO 160 mg HS PAUL Administration Piperacillin/Tazobactam/ 50 mls @ 12.5 mls/hr 04/01/16 22:00 04/02/16 13:18 Dextrose 3.375 gm/ IV Solution IVPB 12.5 mls/hr Q8H PAUL Administration Insulin Human Lispro 0 unit 04/01/16 17:30 04/02/16 12:41 Humalog SQ Not Given ACHS PAUL Protocol Levothyroxine Sodium 125 mcg 04/02/16 09:00 04/02/16 08:40 Synthroid PO 125 mcg DAILY PAUL Administration Metoprolol Tartrate 25 mg 04/01/16 21:00 04/01/16 22:19 Lopressor PO 25 mg HS PAUL Administration Metoprolol Tartrate 50 mg 04/02/16 09:00 04/02/16 08:40 Lopressor PO 50 mg QAM PAUL Administration Miscellaneous Information 1 each 04/01/16 11:32 04/01/16 11:59 Rx Info: Iv Contrast Was Given MISCELLANE 04/03/16 11:32 1 each DAILY PRN Administration Per Protocol Pantoprazole Sodium 40 mg 04/01/16 20:31 04/02/16 08:38 Protonix PO 40 mg DAILY PRN Administration Heartburn Intake and Output 04/01/16 04/02/16 04/02/16 22:59 06:59 14:59 Other: # Voids 2 1 Weight 70 kg Patient Weight 04/03/16 06:59 Weight 70 kg EKG Interpretations (text) Sinus rhythm without any acute changes Assessment and Plan (1) Pneumonia Status: Acute (2) Dyspnea Status: Acute (3) Leukocytosis Status: Acute (4) Mediastinal adenopathy Status: Acute Plan: Clinically her findings are not consistent with congestive heart failure. BNP levels are all within normal limits. Echo Cardigan showed normal LV function. I feel that her symptoms are mostly pulmonary related. The possibility of sarcoidosis, idiopathic pulmonary fibrosis should be considered . No further cardiac testing is suggested. Further recommendation will depend upon the clinical course and recommendations from emery grinder
[2016-04-02 16:03] LABS: CH 29.7; CHCM 30.7; HCT 37.3 % (34.0-46.0); HGB 11.4 gm/dL (11.4-16.0); Hypochromasia Slight; MCH 29.7 pg (25.0-35.0); MCHC 30.5 g/dL (31.0-37.0); MCV 97.2 fL (80.0-100.0); Mean Platelet Volume 7.3; RBC 3.84 m/uL (3.80-5.40); RDW 12.7 % (11.5-15.5); WBC 24.2 k/uL (3.8-10.6)
[2016-04-02 17:02] LABS: Glucose,Whole Blood 163 mg/dL (75-99)
[2016-04-02 20:38] LABS: Glucose,Whole Blood 151 mg/dL (75-99)
[2016-04-02] MEDS: FENOFIBRATE 160 MG TAB PO SCH (21:09)
--- NOTE | 2016-04-02 23:46 | PN ---
DATE OF SERVICE: 04/02/2016 PRESENTING COMPLAINT: Short of breath. INTERVAL HISTORY: This patient is feeling much better today. [place] to be ( ) infection, probably viral pneumonitis. Feels much better. Does not seem to have any cardiac presentation. Feels much better today. Tolerating a diet. Seen by Pulmonary and ID. Review of systems done for constitutional, cardiovascular, GI, pulmonary; relevant findings as above. Current medications include Vibramycin and IV Zosyn. Steroids were discontinued. On examination, temperature 97.2, pulse 90, respiration 17, blood pressure 120/76, pulse ox 94% on 2 L. GENERAL APPEARANCE: Sitting up, not in distress. EYES: Pupils equal. Conjunctivae normal. NECK: JVD not raised. Mass not palpable. RESPIRATORY: Effort increased. LUNGS: Bilateral crackles. CARDIOVASCULAR: First and second sounds normal. No edema. ABDOMEN: Soft, non-tender. Liver and spleen not palpable. PSYCHIATRY: Alert and oriented x3. Mood and affect normal. INVESTIGATIONS: White count 24.2, hemoglobin 11.4. Accu-Cheks are noted. ESR 49. ASSESSMENT: 1. Acute viral bilateral pneumonitis with possible superimposed bacterial infection causing sepsis on presentation. Responded well to antibiotics. Patient is clinically doing much better. Differential includes sarcoidosis per Pulmonary ( ) acute white count rise and addition of antibiotics with significant clinical improvement is more of an infection picture. Of course, underlying sarcoidosis cannot be ruled out. 2. Essential hypertension. 3. Hyperlipidemia. 4. Hypothyroidism. PLAN: Continue with antibiotics right now. Care was discussed with the patient. ( ) come back. Clinically patient is doing much better.
[2016-04-03] MEDS: IPRATROPIUM-ALBUTEROL 3 ML NEB INHALATION SCH ×5 (03:50→19:32)
[2016-04-03] MEDS: PIPERACILLIN-TAZOBACTAM 3.375 GM in DEXTROSE/WATER 1 50ML.BAG IVPB SCH ×3 (05:42→21:05)
[2016-04-03 07:12] LABS: Glucose,Whole Blood 100 mg/dL (75-99)
[2016-04-03] MEDS: INSULIN LISPRO (humaLOG) 300 UNIT/3 ML VIAL SQ SCH ×2 (07:41→12:38)
[2016-04-03] MEDS: LEVOTHYROXINE 125 MCG TAB PO SCH (08:00)
[2016-04-03] MEDS: DOXYCYCLINE 50 MG CAP PO SCH ×2 (08:01→21:06)
[2016-04-03] MEDS: METOPROLOL TARTRATE 50 MG TAB PO SCH ×2 (08:01→21:36)
--- NOTE | 2016-04-03 09:49 | PN ---
DATE OF SERVICE: 04/02/2016 Reason for follow-up is pneumonia. INTERVAL HISTORY: The patient is afebrile. Her breathing has slightly improved. She continues to have a cough though not as productive. The patient denies having any chest pain, abdominal pain or any diarrhea. On examination, blood pressure is 121/76 with a pulse of 92, temperature 97.2. She is 94% on 2 liters nasal cannula. General description is an elderly female in the bed in no distress. RESPIRATORY SYSTEM: Unlabored breathing. Some coarse crackles at the bases. HEART: S1, S2 regular rate and rhythm. ABDOMEN: Soft, no tenderness. EXTREMITIES: No the feet. LABS: White count still elevated 24.2. Blood culture negative. Sputum is currently pending. DIAGNOSTIC IMPRESSION AND PLAN: Patient with left lower lobe pneumonia, likely community-acquired, but gram-negative cannot be entirely excluded. We are waiting for the sputum culture to finalize. Though the patient's fever has improved, white count still elevated and could be related to the steroid the patient was one. Continue with supportive care. Continue with Zosyn at this point. Family present at beside. Their questions and concerns were answered. HZANE
[2016-04-03 10:03] LABS: ALT 34 U/L (9-52); AST 33 U/L (14-36); Alkaline Phosphatase 81 U/L (38-126); Anion Gap 11 mmol/L; Blood Urea Nitrogen 22 mg/dL (7-17); Calcium 9.9 mg/dL (8.4-10.2); Carbon Dioxide 26 mmol/L (22-30); Chloride 106 mmol/L (98-107); Glucose 89 mg/dL (74-99); Non-African American GFR(MDRD) 54 (>60 ml/min/1.73 sqM); Potassium 4.7 mmol/L (3.5-5.1); Sodium 143 mmol/L (137-145); Total Bilirubin 0.5 mg/dL (0.2-1.3); Total Protein 6.3 g/dL (6.3-8.2)
[2016-04-03 10:32] LABS: Basophils % (A) 0 %; CH 29.5; CHCM 30.2; Eosinophils % (A) 0 %; HCT 35.9 % (34.0-46.0); HDW 2.27; HGB 11.2 gm/dL (11.4-16.0); Hypochromasia Moderate; Luc # (Auto) 0.16; Luc % (Auto) 1; Lymphocytes # (A) 2.1 k/uL (1.0-4.8); Lymphocytes % (A) 11 %; MCH 30.5 pg (25.0-35.0); MCHC 31.1 g/dL (31.0-37.0); MCV 98.1 fL (80.0-100.0); Mean Platelet Volume 7.1; Monocytes # (A) 0.8 k/uL (0-1.0); Monocytes % (A) 4 %; Neutrophils # (A) 16.8 k/uL (1.3-7.7); Neutrophils % (A) 84 %; RBC 3.67 m/uL (3.80-5.40); RDW 12.7 % (11.5-15.5); WBC 19.9 k/uL (3.8-10.6)
[2016-04-03 12:27] LABS: Glucose,Whole Blood 102 mg/dL (75-99)
--- NOTE | 2016-04-03 13:49 | P.PN ---
Subjective Progress note dated 04/03/2016 This is a 75-year-old female Y saw in consultation yesterday. She was initially admitted with a diagnosis of shortness of breath, likely related to underlying fluid overload CHF. She was treated with diuretics and did seem to improve a bit. She was discharged and readmitted. She had increasing shortness of breath. She was CT angiogram the chest which was negative for pulmonary embolism. She had some diffuse adenopathy though in the mediastinum and thoracic areas of this will need to be evaluated further. This could be related this could relate to a reactive adenopathy or something ominous like lymphoma or something less significant like sarcoidosis. Anyway the patient is doing much better today. Will likely be discharged. The patient will need follow-up with me. I give the patient my business cards today. The patient will probably benefit from pulmonary function testing. We did order an Mike level sed rate and serum calcium and 24-hour urine calcium. The patient will also probably benefit from PET scan. May benefit from a biopsy down the road. Objective - Vital Signs Vital signs: Vital Signs Temp 97.3 F L 04/03/16 07:00 Pulse 72 04/03/16 12:17 Resp 18 04/03/16 08:00 BP 120/68 04/03/16 07:00 Pulse Ox 95 04/03/16 07:00 Intake & Output 04/02/16 04/03/16 04/03/16 18:59 06:59 18:59 Intake Total 850 Output Total 100 Balance -100 850 Weight 70 kg 72 kg Intake: Oral 850 Output: Urine 100 Other: # Voids 2 3 - Exam No acute distress, oriented 3. HEENT examination is grossly unremarkable Supple. Full range of motion. No adenopathy or thyromegaly. Neck veins are flat. Cardiovascular examination reveals regular rhythm rate. S1-S2 normal. No murmur. No S3-S4. Lungs reveal relatively clear breath sounds. A few scattered mild rhonchi. No wheezes or crackles. Abdomen soft Extremities are intact. - Labs CBC & Chem 7: 04/03/16 08:50 04/03/16 08:50 Labs: Abnormal Lab Results - Last 24 Hours (Table) 04/02/16 04/02/16 04/02/16 Range/Units 11:20 15:56 17:00 WBC 24.2 H (3.8-10.6) k/uL RBC (3.80-5.40) m/uL Hgb (11.4-16.0) gm/dL MCHC 30.5 L (31.0-37.0) g/dL Neutrophils # (1.3-7.7) k/uL ESR 49 H (0-20) mm/hr BUN (7-17) mg/dL POC Glucose (mg/dL) 163 H (75-99) mg/dL Albumin (3.5-5.0) g/dL 04/02/16 04/03/16 04/03/16 Range/Units 20:21 07:10 08:50 WBC 19.9 H (3.8-10.6) k/uL RBC 3.67 L (3.80-5.40) m/uL Hgb 11.2 L (11.4-16.0) gm/dL MCHC (31.0-37.0) g/dL Neutrophils # 16.8 H (1.3-7.7) k/uL ESR (0-20) mm/hr BUN (7-17) mg/dL POC Glucose (mg/dL) 151 H 100 H (75-99) mg/dL Albumin (3.5-5.0) g/dL 04/03/16 04/03/16 Range/Units 08:50 12:25 WBC (3.8-10.6) k/uL RBC (3.80-5.40) m/uL Hgb (11.4-16.0) gm/dL MCHC (31.0-37.0) g/dL Neutrophils # (1.3-7.7) k/uL ESR (0-20) mm/hr BUN 22 H (7-17) mg/dL POC Glucose (mg/dL) 102 H (75-99) mg/dL Albumin 3.2 L (3.5-5.0) g/dL Assessment and Plan (1) Dyspnea Status: Acute (2) Mediastinal adenopathy Status: Acute (3) CHF (congestive heart failure) Status: Acute Plan: Plan The patient's labs x-rays and other data is reviewed. The patient may have something such as sarcoidosis going on. Another possibility would be lymphoma. She does not appear to be significantly ill at this time and I would suspect the former as opposed to the latter. She'll need a Mike level and a 24-hour urine calcium. A sed rate is not ready done should be done. This recommendation suggestions are forthcoming. Additional studies: Include a PET scan and sampling of the lymph nodes. Additional recommendations suggestions are forthcoming. Prognosis is guarded. Plan dated 04/03/2016 The patient's doing relatively well. The patient will likely be discharged. I did order a sed rate and an Mike level. We also ordered a 24-hour urine calcium. The patient will follow-up in the office. We gave the patient one of my cards. As mentioned above, the patient will probably benefit from a pulmonary function test in 6 [address] distance possible PET scan and/or biopsy. Additional recommendations suggestions are forthcoming. Time with Patient: Less than 30
[2016-04-03] MEDS ORDERED: INFLUENZA VACCINE (3YR+) 60 MCG/0.5 ML SYRINGE IM ONE (15:18)
[2016-04-03 16:45] LABS: Glucose,Whole Blood 139 mg/dL (75-99)
[2016-04-03] MEDS ORDERED: IPRATROPIUM-ALBUTEROL 3 ML NEB INHALATION PRN (20:00)
[2016-04-03 20:28] LABS: Glucose,Whole Blood 105 mg/dL (75-99)
[2016-04-03] MEDS: FENOFIBRATE 160 MG TAB PO SCH (21:06)
[2016-04-03] MEDS ORDERED: METOPROLOL TARTRATE 25 MG TAB PO SCH (21:30)
--- NOTE | 2016-04-03 22:50 | PN ---
DATE OF SERVICE: 04/03/2016 PRESENTING COMPLAINT: Short of breath. INTERVAL HISTORY: This is a patient who presented with viral pneumonitis with secondary bacterial infection. Doing better. Sputum cultures are pending. I discussed with Dr. Patrick from [place]. Patient has been up and about in the hallway. Dr. Freed ( ) work her up for sarcoidosis as an outpatient. Review of systems done for constitutional, cardiovascular, GI, pulmonary; relevant findings as above. Current medications are reviewed and include IV Zosyn. On examination, temperature 96.2, pulse 84, respiration 18, blood pressure 140/84, pulse ox 93% on room air. GENERAL APPEARANCE: Comfortable. EYES: Pupils equal. Conjunctivae normal. NECK: JVD not raised. Mass not palpable. RESPIRATORY: Effort increased. LUNGS: Bilateral lower base crackles. CARDIOVASCULAR: First and second sounds normal. No edema. ABDOMEN: Soft, nontender. Liver and spleen not palpable. PSYCHIATRY: Alert and oriented x3. Mood and affect normal. INVESTIGATIONS: White count 9.9. Potassium 4.7. BUN 22, creatinine 1.0. ASSESSMENT: 1. Acute viral bilateral pneumonitis with superimposed secondary bacterial infection with clinical improvement. 2. Essential hypertension. 3. Hyperlipidemia. 4. Hypothyroidism. 5. Outpatient workup to rule out sarcoidosis. PLAN: Care was discussed with the patient. Await sputum cultures. Continue with antibiotics. Looking at discharge hopefully tomorrow based on sputum culture results. Patient's blood cultures have been negative.
[2016-04-03] MEDS: PANTOPRAZOLE 40 MG TABLET PO PRN (23:55)
[2016-04-04] MEDS: PIPERACILLIN-TAZOBACTAM 3.375 GM in DEXTROSE/WATER 1 50ML.BAG IVPB SCH ×2 (05:44→12:44)
--- NOTE | 2016-04-04 08:01 | PN ---
DATE OF SERVICE: 04/03/2016 Reason for followup is pneumonia. INTERVAL HISTORY: The patient is afebrile. Her breathing has slightly improved. She continued to have a cough that is getting more clear sputum. No hemoptysis. Denies any chest pain. No abdominal pain. No nausea, vomiting or any diarrhea. On examination, blood pressure is 140/84 with a pulse of 70, temperature 96.2. She is 93% on room air. General description is an elderly female, up in the bed in no distress. RESPIRATORY SYSTEM: Unlabored breathing. Coarse crackles at right base. No wheeze. HEART: S1, S2. Regular rate and rhythm. ABDOMEN: Soft, no tenderness. EXTREMITIES: No edema of feet. LABS: Hemoglobin 11.2, white count 19.9 with a BUN of 22, creatinine 1.0. Sputum cultures are currently pending. Blood culture has been negative. DIAGNOSTIC IMPRESSION AND PLAN: Patient with left lower lobe pneumonia in a patient who had been recently hospitalized and treated for viral pneumonitis and possible congestive heart failure coming back with bacterial pneumonia with a question of community acquired versus nasocomial pathogen. Patient responded to Zosyn that will be continued. Awaiting for the sputum culture to finalize to determine discharge antibiotics. Continue supportive care. ZHANE
[2016-04-04] MEDS: IPRATROPIUM-ALBUTEROL 3 ML NEB INHALATION SCH ×3 (08:13→15:40)
[2016-04-04 08:18] VITALS: BP 136/76; RESP 19; TEMP 97.5
[2016-04-04] MEDS: DOXYCYCLINE 50 MG CAP PO SCH (08:22)
[2016-04-04] MEDS: LEVOTHYROXINE 125 MCG TAB PO SCH (08:23)
[2016-04-04] MEDS: METOPROLOL TARTRATE 50 MG TAB PO SCH (08:23)
[2016-04-04 09:27] LABS: CH 29.9; CHCM 30.6; HCT 41.1 % (34.0-46.0); HDW 2.29; HGB 12.6 gm/dL (11.4-16.0); Hypochromasia Slight; MCHC 30.7 g/dL (31.0-37.0); MCV 97.8 fL (80.0-100.0); Mean Platelet Volume 7.8; RDW 12.6 % (11.5-15.5); WBC 13.4 k/uL (3.8-10.6)
--- NOTE | 2016-04-04 16:05 | PN ---
DATE OF SERVICE: 04/04/2016 Reason for follow-up pneumonia. INTERVAL HISTORY: The patient is afebrile. Breathing has improved. Denies having any chest pain. Occasional cough. Getting more clear now. No hemoptysis. No abdominal pain. No diarrhea. On examination, blood pressure is 136/76 with a pulse of 84, temperature 97.5. She is 91% on room air. General description is an elderly female, up in the bed in no distress. RESPIRATORY SYSTEM: Unlabored breathing. Some coarse crackles at the base. No wheeze. HEART: S1, S2. Regular rate and rhythm. ABDOMEN: Soft, no tenderness. LABS: Hemoglobin is 12.3, white count 13.4. Sputum is usual respiratory bertrand. DIAGNOSTIC IMPRESSION AND PLAN: Patient with pneumonia, likely community acquired. Sputum has been negative for any resistant pathogen. Patient with multiple allergies, antibiotics for discharge will be Ceftin 500 mg b.i.d. for another 10 days with outpatient follow-up. [facility]
[2016-04-04 17:20] VITALS: PULSE 85
--- NOTE | 2016-04-06 10:25 | DS ---
DATE OF ADMISSION: 04/01/2016 DATE OF DISCHARGE: 04/04/2016 FINAL DIAGNOSES: 1. Acute viral bacterial pneumonitis with superimposed secondary bacterial infection, possible pneumonia. 2. Essential hypertension. 3. Hyperlipidemia. 4. Hypothyroidism. CONSULTATION: Dr. Patrick from infectious disease, Dr. Valencia from cardiology, Dr. Freed from pulmonary. HOSPITAL COURSE: This very pleasant lady was just discharged from the hospital, readmitted not feeling well; cough, some sputum production. White count had gone up. Patient was put on antibiotics in form of Zosyn to which she responded well. Seen by Dr. Freed from pulmonary. He will do further workup as an outpatient for sarcoidosis. I discussed with Dr. Patrick. Patient's sputum cultures were negative. Blood cultures were negative. Patient responded well to the antibiotics. The diagnosis entirely clear at this point, but the patient really felt well, very keen to go home. On exam, the patient has crackles. Congestive heart failure was not felt to be present. DISCHARGE MEDICATIONS: 1. TriCor 145 mg p.o. q.h.s. 2. Synthroid 125 mcg p.o. daily. 3. Centrum Silver 1 tablet p.o. daily. 4. Omeprazole 20 mg daily. 5. Ventolin 1 to 2 puffs every 6 hours p.r.n. 6. Vitamin D3 1000 units p.o. daily. 7. Claritin 10 mg p.o. daily. 8. Mucinex 1200 mg p.o. q.12 p.r.n. 9. Ceftin 500 mg p.o. b.i.d. for 20 tablets. 10. Lopressor 50 mg p.o. b.i.d. Follow up with Dr. Freed on 04/12/2016, Dr. Bonilla on 04/11/2016, Dr. Patrick on 04/12/2016. Care was discussed with the patient.
== END 2016-04-04 17:30 | disposition home or self-care (01) | DRG 871 ==
LOC: EC 09:39 → 4MS4W 12:44
PROVIDERS: ADMIT Hospitalist; ATTEND Hospitalist
PROC: 3E0234Z Introduction of Serum, Toxoid and Vaccine into Muscle, Percutaneous Approach (ICD-10-PCS; principal; 2016-04-03)
DX: A41.9 Sepsis, unspecified organism (principal); J12.9 Viral pneumonia, unspecified; I11.0 Hypertensive heart disease with heart failure; J15.9 Unspecified bacterial pneumonia; I50.30 Unspecified diastolic (congestive) heart failure; E87.5 Hyperkalemia; J20.8 Acute bronchitis due to other specified organisms; Z23 Encounter for immunization; E78.5 Hyperlipidemia, unspecified; E03.9 Hypothyroidism, unspecified; R59.0 Localized enlarged lymph nodes; Z96.651 Presence of right artificial knee joint; J45.909 Unspecified asthma, uncomplicated; D86.9 Sarcoidosis, unspecified; Z79.899 Other long term (current) drug therapy
CPT/HCPCS: 36415; 71020; 71275; 80053; 81001; 81050; 82164; 82340; 82550; 82553; 83605; 83880; 84484; 85025; 85027; 85379; 85610; 85652; 85730; 87040; 87070; 87205; 87502; 93005; 94640; 94760; 96361; 96374; 99291

== ENCOUNTER 2016-04-05 13:57 | Inpatient (IN) | payer MEDICARE, BC ==
[2016-04-05] MEDS ORDERED: ACETAMINOPHEN TAB 500 MG TAB PO STA (14:18)
[2016-04-05] MEDS ORDERED: IBUPROFEN IV 600 MG in SODIUM CHLORIDE 0.9% 250 ML IV STA (14:18)
[2016-04-05] MEDS ORDERED: SODIUM CHLORIDE 0.9% 500 ML IV SCH (14:30)
[2016-04-05] MEDS ORDERED: methylPREDNISolone SOD SUCCI 125 MG/2 ML VIAL IV STA (14:56)
[2016-04-05] MEDS ORDERED: IPRATROPIUM-ALBUTEROL 3 ML NEB INHALATION STA (14:56)
--- NOTE | 2016-04-05 15:01 | ED ---
General Adult HPI - General Chief complaint: Shortness of Breath Stated complaint: SOB Time Seen by Provider: 04/05/16 14:00 Source: patient, RN notes reviewed Mode of arrival: wheelchair Limitations: no limitations - History of Present Illness Initial comments: This is a 75-year-old female whose been to the emergency department 2 times before for shortness of breath. Patient comes in and complains that she continues to be short of breath and is satting at 84% on a pulse oximeter home. Patient states she was in the hospital and told she had a bacterial infection or possibly sarcoidosis and sent home but she didn't have a nebulizer or any steroids at home and she does not have any oxygen home in the hospital sitting in bed she is oxygenating at 85% on room air. Patient denies any fever or chills. Patient denies any chest pain or palpitations. Patient denies any headache patient denies numbness weakness. Patient denies abdominal pain patient denies nausea vomiting or diarrhea. - Related Data Home Medications Medication Instructions Recorded Confirmed Fenofibrate Nanocrystallized 145 mg PO HS 03/29/16 04/05/16 [Fenofibrate] Levothyroxine Sodium [Synthroid] 125 mcg PO DAILY 03/29/16 04/05/16 Multivit-Min/FA/Lycopene/Lut 1 tab PO DAILY 03/29/16 04/05/16 [Centrum Silver Tablet] Omeprazole 20 mg PO DAILY PRN 03/29/16 04/05/16 Albuterol Inhaler [Ventolin Hfa 1 - 2 puff INHALATION RT-Q6H PRN 04/01/16 Inhaler] Cholecalciferol [Vitamin D3] 1,000 unit PO DAILY 04/01/16 04/05/16 Loratadine [Claritin] 10 mg PO DAILY PRN 04/01/16 04/05/16 guaiFENesin [Mucinex] 1,200 mg PO Q12HR PRN 04/01/16 04/05/16 Previous Rx's Medication Instructions Recorded Cefuroxime Axetil [Ceftin] 500 mg PO BID #20 tab 04/04/16 Metoprolol Tartrate [Lopressor] 50 mg PO BID #0 04/04/16 Allergies Allergy/AdvReac Type Severity Reaction Status Date / Time clarithromycin [From Biaxin] Allergy Unknown Verified 04/05/16 14:07 gemifloxacin [From Factive] Allergy Unknown Verified 04/05/16 14:07 prednisone Allergy Unknown Verified 04/05/16 14:07 Review of Systems ROS Statement: Those systems with pertinent positive or pertinent negative responses have been documented in the HPI. ROS Other: All systems not noted in ROS Statement are negative. Past Medical History Past Medical History: Heart Failure, Hyperlipidemia, Hypertension, Thyroid Disorder History of Any Multi-Drug Resistant Organisms: None Reported Past Surgical History: Section, Orthopedic Surgery Additional Past Surgical History / Comment(s): total right knee replacement Past Anesthesia/Blood Transfusion Reactions: No Reported Reaction Past Psychological History: No Psychological Hx Reported Smoking Status: Never smoker Past Alcohol Use History: None Reported Past Drug Use History: None Reported General Exam - General Exam Comments Initial Comments: GENERAL: Patient is well-developed and well-nourished. Patient is nontoxic and well- hydrated and is in mild distress. ENT: Neck is soft and supple. No significant lymphadenopathy is noted. Oropharynx is clear. Moist mucous membranes. Neck has full range of motion without eliciting any pain. There is no thyroid enlargement and no masses were felt. EYES: The sclera were anicteric and conjunctiva were pink and moist. Extraocular movements were intact and pupils were equal round and reactive to light. Eyelids were unremarkable. PULMONARY: Patient has crackles in bilateral bases. CARDIOVASCULAR: There is a regular rate and rhythm without any murmurs gallops or rubs. ABDOMEN: Soft and nontender with normal bowel sounds. No palpable organomegaly was noted. There is no palpable pulsatile mass. SKIN: Skin is clear with no lesions or rashes and otherwise unremarkable. NEUROLOGIC: Patient is alert and oriented x3. Cranial nerves II through XII are grossly intact. Motor and sensory are also intact. Normal speech, volume and content. Symmetrical smile. MUSCULOSKELETAL: Normal extremities with adequate strength and full range of motion. No lower extremity swelling or edema. No calf tenderness. LYMPHATICS: No significant lymphadenopathy is noted PSYCHIATRIC: Normal psychiatric evaluation. Limitations: no limitations Course Vital Signs 04/05/16 04/05/16 04/05/16 14:04 15:19 15:22 Temperature 97.8 F Pulse Rate 96 88 88 Respiratory 20 17 Rate Blood Pressure 137/89 125/66 O2 Sat by Pulse 85 L 92 L Oximetry 04/05/16 15:32 Temperature Pulse Rate 90 Respiratory Rate Blood Pressure O2 Sat by Pulse Oximetry Medical Decision Making - Medical Decision Making EKG shows normal sinus rhythm at a rate of 92 bpm VA interval 244 QRS is 70 QT interval 366 Q-T C is 452 per patient's EKG shows no ST segment elevation or depression or T wave abnormalities are noted Chest x-ray shows no acute abnormality. Once patient states oxygen she sats in the low 90s feels considerably better. Patient received breathing treatments and steroids in the emergency department. Spoke Dr. Monroy admit the patient consult pulmonology and hematology. Patient will receive breathing treatments and steroids on the floor hematology and pulmonology will be consult. - Lab Data Result diagrams: 04/05/16 14:21 04/05/16 14:21 Lab Results 04/05/16 04/05/16 04/05/16 Range/Units 14:21 14:21 14:21 WBC 26.6 H* (3.8-10.6) k/uL RBC 4.43 (3.80-5.40) m/uL Hgb 13.3 (11.4-16.0) gm/dL Hct 42.0 (34.0-46.0) % MCV 94.6 (80.0-100.0) fL MCH 29.9 (25.0-35.0) pg MCHC 31.6 (31.0-37.0) g/dL RDW 12.7 (11.5-15.5) % Plt Count 399 (150-450) k/uL Neutrophils % PURCHASING COORDINATOR Neutrophils % (Manual) 89.5 % Lymphocytes % PURCHASING COORDINATOR Lymphocytes % (Manual) 7.0 % Monocytes % PURCHASING COORDINATOR Monocytes % (Manual) 2.5 % Eosinophils % PURCHASING COORDINATOR Eosinophils % (Manual) 1.0 % Basophils % PURCHASING COORDINATOR Neutrophils # PURCHASING COORDINATOR Neutrophils # (Manual) 23.8 H (1.3-7.7) k/uL Lymphocytes # PURCHASING COORDINATOR Lymphocytes # (Manual) 1.9 (1.0-4.8) k/uL Monocytes # PURCHASING COORDINATOR Monocytes # (Manual) 0.7 (0-1.0) k/uL Eosinophils # PURCHASING COORDINATOR Eosinophils # (Manual) 0.3 (0-0.7) k/uL Basophils # PURCHASING COORDINATOR Nucleated RBCs 0 (0-0) /100 WBC Manual Slide Review Performed RBC Morphology Normal Sodium 140 (137-145) mmol/L Potassium 4.6 (3.5-5.1) mmol/L Chloride 101 (98-107) mmol/L Carbon Dioxide 27 (22-30) mmol/L Anion Gap 12 mmol/L BUN 21 H (7-17) mg/dL Creatinine 0.90 (0.52-1.04) mg/dL Est GFR (MDRD) Af Amer >60 (>60 ml/min/1.73 sqM) Est GFR (MDRD) Non-Af >60 (>60 ml/min/1.73 sqM) Glucose 105 H (74-99) mg/dL Calcium 10.2 (8.4-10.2) mg/dL Total Bilirubin 0.9 (0.2-1.3) mg/dL AST 29 (14-36) U/L ALT 33 (9-52) U/L Alkaline Phosphatase 70 (38-126) U/L Total Creatine Kinase 22 L (30-135) U/L CK-MB (CK-2) 0.6 (0.0-2.4) ng/mL CK-MB (CK-2) Rel Index 2.7 Troponin I <0.012 (0.000-0.034) ng/mL Total Protein 7.2 (6.3-8.2) g/dL Albumin 3.7 (3.5-5.0) g/dL Disposition Clinical Impression: Dyspnea, Leukocytosis, Hypoxia Disposition: ADMITTED IP TO THIS HOSP Referrals: Paul Bonilla DO [Primary Care Provider] - 1-2 days Time of Disposition: 16:03
[2016-04-05 15:14] LABS: ALT 33 U/L (9-52); AST 29 U/L (14-36); Alkaline Phosphatase 70 U/L (38-126); Anion Gap 12 mmol/L; Blood Urea Nitrogen 21 mg/dL (7-17); Calcium 10.2 mg/dL (8.4-10.2); Carbon Dioxide 27 mmol/L (22-30); Chloride 101 mmol/L (98-107); Glucose 105 mg/dL (74-99); Non-African American GFR(MDRD) >60 (>60 ml/min/1.73 sqM); Potassium 4.6 mmol/L (3.5-5.1); Sodium 140 mmol/L (137-145); Total Bilirubin 0.9 mg/dL (0.2-1.3); Total Protein 7.2 g/dL (6.3-8.2)
[2016-04-05 15:15] LABS: CH 30.1; CHCM 31.9; HDW 2.19; HGB 13.3 gm/dL (11.4-16.0); MCH 29.9 pg (25.0-35.0); MCHC 31.6 g/dL (31.0-37.0); MCV 94.6 fL (80.0-100.0); Mean Platelet Volume 7.2; RBC 4.43 m/uL (3.80-5.40); RDW 12.7 % (11.5-15.5); WBC (Perox) 27.46
--- NOTE | 2016-04-05 15:19 | XR ---
EXAMINATION TYPE: XR chest 2V DATE OF EXAM: 04/05/2016 3:16 PM COMPARISON: 04/01/2016 HISTORY: Shortness of breath TECHNIQUE: Frontal and lateral views of the chest are obtained. FINDINGS: Scattered senescent parenchymal changes noted. Hyperinflation compatible with COPD. No evidence for infiltrate. No evidence for atelectasis. Heart size is stable. Mediastinal structures are stable and grossly unremarkable. No evidence for hilar prominence. Degenerative changes dorsal spine. IMPRESSION: 1. No evidence for acute pulmonary disease.
[2016-04-05 15:28] LABS: Creatine Kinase 22 U/L (30-135); WBC 26.6 k/uL (3.8-10.6)
[2016-04-05 15:42] LABS: Creatine Kinase MB 0.6 ng/mL (0.0-2.4); Troponin I <0.012 ng/mL (0.000-0.034)
[2016-04-05 15:43] LABS: Add Differential Manual Differential
[2016-04-05 15:47] LABS: Manual Review Performed; Nucleated Red Blood Cells 0 /100 WBC (0-0); RBC Morphology Normal; Total Cells Counted 200
[2016-04-05] MEDS: INSULIN LISPRO (humaLOG) 300 UNIT/3 ML VIAL SQ SCH ×2 (17:27→21:45)
[2016-04-05 17:28] LABS: Glucose,Whole Blood 118 mg/dL (75-99)
[2016-04-05] MEDS: IPRATROPIUM-ALBUTEROL 3 ML NEB INHALATION PRN (19:43)
[2016-04-05] MEDS: METOPROLOL TARTRATE 50 MG TAB PO SCH (20:36)
[2016-04-05] MEDS: CEFUROXIME 250 MG TAB PO SCH (20:37)
[2016-04-05] MEDS ORDERED: FENOFIBRATE 160 MG TAB PO SCH (21:00)
[2016-04-05 21:42] LABS: Glucose,Whole Blood 156 mg/dL (75-99)
[2016-04-05] MEDS: methylPREDNISolone SOD SUCCI 125 MG/2 ML VIAL IV SCH (23:09)
[2016-04-06] MEDS: methylPREDNISolone SOD SUCCI 125 MG/2 ML VIAL IV SCH ×2 (05:25→12:05)
[2016-04-06 07:33] LABS: Glucose,Whole Blood 153 mg/dL (75-99)
[2016-04-06] MEDS: IPRATROPIUM-ALBUTEROL 3 ML NEB INHALATION PRN ×2 (07:39→11:23)
[2016-04-06] MEDS: CEFUROXIME 250 MG TAB PO SCH (07:51)
[2016-04-06] MEDS: INSULIN LISPRO (humaLOG) 300 UNIT/3 ML VIAL SQ SCH ×2 (07:51→12:05)
[2016-04-06] MEDS: METOPROLOL TARTRATE 50 MG TAB PO SCH (07:51)
--- NOTE | 2016-04-06 10:17 | P.CNPUL ---
History of Present Illness Consult date: 04/06/16 Reason for consult: dyspnea, cough, asthma Chief complaint: Shortness of breath History of present illness: This is a 75-year-old female that has been admitted and discharged now for the third time. This is her third admission to the hospital for shortness of breath and low pulse oximetry. She was initially admitted and was diagnosed as having "" CHF. She was treated with diuretics seen by cardiology and discharged home. Subsequent to that she came back in and she was seen also by number of doctors on the second admission. I saw her for the pulmonary standpoint and thought that she had reactive bronchospasm and bronchial inflammation. She never mentioned to me that she was previously diagnosed with asthma. The other reason for my evaluation was that her she had a CAT scan which ruled out PE but did show some diffuse adenopathy and we gave some consideration to something like sarcoid. Anyway on this admission, she apparently was home and she noted that her pulse ox was again low. She apparently had a pulse oximetry that a friend had. She also was short of breath. A bit of a cough. Some wheezing. A bit of clear phlegm production. No fever no chills. For that reason she came back into the ER which she was evaluated and admitted. It comes out on this admission, that she did have a previous diagnosis of asthma I suspect this was going on. The patient initially began with this in mid February when she went to the [facility] and was diagnosed as having bronchitis and treated with an antibiotic. Since that time, she's had on and off episodes of shortness of breath cough wheezing and chest tightness. Also a bit of phlegm production. No fever no chills. No nausea vomiting or diarrhea. Review of Systems A 12 point review of system is positive for ongoing shortness breath chest tightness wheezing cough. The symptoms all began in mid February as mentioned above. Past Medical History Past Medical History: Heart Failure, Hyperlipidemia, Hypertension, Thyroid Disorder Additional Past Medical History / Comment(s): HAD A PNE VACCINE AFTER AGE 67 BUT NOT SURE OF DATE,OFFICE CLOSED AT TIME OF THIS ADMIT. History of Any Multi-Drug Resistant Organisms: None Reported Past Surgical History: Section, Orthopedic Surgery Additional Past Surgical History / Comment(s): total right knee replacement Past Anesthesia/Blood Transfusion Reactions: No Reported Reaction Additional Past Anesthesia/Blood Transfusion Reaction / Comment(s): clausterphobia Past Psychological History: No Psychological Hx Reported Smoking Status: Never smoker Past Alcohol Use History: Occasional Past Drug Use History: None Reported - Past Family History Father Additional Family Medical History / Comment(s): smoker-had problems related to that Mother Additional Family Medical History / Comment(s): smoker-problems related to that Medications and Allergies Home Medications Medication Instructions Recorded Confirmed Type Fenofibrate Nanocrystallized 145 mg PO HS 03/29/16 04/05/16 History [Fenofibrate] Levothyroxine Sodium [Synthroid] 125 mcg PO DAILY 03/29/16 04/05/16 History Multivit-Min/FA/Lycopene/Lut 1 tab PO DAILY 03/29/16 04/05/16 History [Centrum Silver Tablet] Omeprazole 20 mg PO DAILY PRN 03/29/16 04/05/16 History Albuterol Inhaler [Ventolin Hfa 1 - 2 puff INHALATION RT-Q6H PRN 04/01/16 History Inhaler] Cholecalciferol [Vitamin D3] 1,000 unit PO DAILY 04/01/16 04/05/16 History Loratadine [Claritin] 10 mg PO DAILY PRN 04/01/16 04/05/16 History guaiFENesin [Mucinex] 1,200 mg PO Q12HR PRN 04/01/16 04/05/16 History Allergies Allergy/AdvReac Type Severity Reaction Status Date / Time clarithromycin [From Biaxin] Allergy Unknown Verified 04/05/16 14:07 gemifloxacin [From Factive] Allergy Unknown Verified 04/05/16 14:07 prednisone Allergy Unknown Verified 04/05/16 14:07 Physical Exam Osteopathic Statement: *. No significant issues noted on an osteopathic structural exam other than those noted in the History and Physical/Consult. Vitals: Vital Signs Temp Pulse Pulse Resp BP BP Pulse Ox 04/06/16 07:53 80 04/06/16 07:39 76 04/06/16 07:00 96.8 F L 69 18 137/64 98 04/05/16 23:00 97.6 F 76 16 126/68 97 04/05/16 19:49 84 04/05/16 19:43 82 04/05/16 18:11 97.0 F L 88 16 120/68 94 L 04/05/16 16:57 98.1 F 95 17 140/65 92 L Intake and Output 04/05/16 04/06/16 04/06/16 22:59 06:59 14:59 Intake Total 240 60 Balance 240 60 Intake: Oral 240 60 Other: # Voids 2 1 # Bowel Movements 0 0 No acute distress. No audible wheezing. She's not dyspneic. She is wearing nasal O2. HEENT examination is grossly unremarkable. Mucous membranes are moist. No oral lesions. Neck supple. Full range of motion. No adenopathy. Cardiovascular examination reveals regular rhythm rate. S1-S2 normal. No S3- S4 or murmur. Lungs reveal a few scattered wheezes. Breath sounds diminished. Slight prolongation. No crackles. Abdomen soft bowel sounds are heard. Extremities are intact. Results - Laboratory Findings CBC and BMP: 04/05/16 14:21 04/05/16 14:21 Abnormal lab findings: Abnormal Labs 04/05/16 04/05/16 04/06/16 17:26 21:38 07:30 POC Glucose (mg/dL) 118 H 156 H 153 H - Diagnostic Findings Chest x-ray: image reviewed (Chest x-ray labs and medications are reviewed.) Assessment and Plan (1) Asthma Status: Acute (2) Bronchospasm with bronchitis, acute Status: Acute (3) Mediastinal adenopathy Status: Acute Plan: Plan I suspect the patient may have some underlying asthma. Is likely active which explains her clinical syndrome that she has been having since mid February. The patient should be given prednisone with a burst and taper. She can get 40 mg for 4 days 30 mg for 4 days 20 mm 4 days 10 mg 4 days and stop. In addition I will send her home on a rescue inhaler something like pro-air Proventil or Ventolin HFA. She should also go home on Singulair 10 g at bedtime finally, she should go home on a combination inhaled corticosteroid/long-acting beta agonist such as Advair or Breo dulera or Symbicort high-dose. She can come back and see me in the office to workup this problem and also to reevaluate her adenopathy which may be at reactive or may be something more significant. Time with Patient: Greater than 30
[2016-04-06 12:06] LABS: Glucose,Whole Blood 143 mg/dL (75-99)
[2016-04-06 15:13] VITALS: BP 147/74; PULSE 92; RESP 16; TEMP 97.2
[2016-04-06] MEDS ORDERED: SYMBICORT 160-4.5 MCG INHALER INHALATION SCH (20:00)
[2016-04-06] MEDS ORDERED: MONTELUKAST 10 MG TAB PO SCH (21:00)
--- NOTE | 2016-04-25 11:13 | HP ---
DATE OF ADMISSION: HISTORY AND PHYSICAL AND DISCHARGE SUMMARY CHIEF COMPLAINT: Difficulty in breathing. HISTORY OF PRESENT ILLNESS: This 75-year-old female that was seen by 2 other physicians in the past was admitted twice for difficulty in breathing. Patient initially was thought to be in congestive heart failure, was thereafter started on diuretics. Patient was having some wheezing, which was initially thought to be cardiac asthma. Patient was seen by our sizing end bander. Patient was thought to have some underlying reactive airway disease. Patient was recommended to be discharged home on prednisone and inhaled steroids and albuterol p.r.n. Patient; however, was sent home without an oral prednisone taper. Comes back in to the hospital, was improved by the time of my examination. States that she has cough with significant exertion. Denies having any chest pressure, nausea, vomiting, diarrhea, or urinary frequency or urgency. REVIEW OF SYSTEMS: Fourteen-point review of systems was done; none pertinent than what was mentioned. Past medical history includes diastolic congestive heart failure, hyperlipidemia, hypertension, thyroid disorder. SURGICAL HISTORY: and orthopedic surgery. Medications include: 1. Fenofibrate. 2. Synthroid. 3. Centrum. 4. Omeprazole. 5. Ventolin. 6. Vitamin D3. 7. Claritin. 8. Mucinex. Medications and doses were reviewed appropriately and reconciled on admission and discharge. ALLERGIES: CLARITHROMYCIN, GEMIFLOXACIN and PREDNISONE. PHYSICAL EXAM: VITALS: Heart rate is 80, temperature is 96.8, respiratory rate is 16, blood pressure 126/68. GENERALLY: Patient appears to be alert, oriented x3. HEENT: The pupils are equal and reactive to light and accommodation. HEART: S1, S2 present. No murmur appreciated. LUNGS: Scattered expiratory wheezing on deep effort. No rhonchi or rales noted. ABDOMINAL EXAM: Soft, nontender, no organomegaly appreciated. GENITOURINARY: No Caldwell in place. EXTREMITIES: Pulses can be palpated distally. Denies any tenderness on gross palpation. SKIN: On a gross skin exam does not appear to have any purpura or any skin rashes that were noted. NEUROLOGICALLY: Grossly cranial nerves 2-12 intact. No motor or sensory deficits noted. LABORATORY DATA: On the day of examination, hemoglobin 13.3, hematocrit 42, white count is 26.6, platelets 399. Sodium 140, potassium 4.6, chloride 101, bicarb 27, BUN 21, creatinine 0.90. ASSESSMENT AND PLAN: 1. Reactive airway disease with an acute exacerbation. 2. Acute bronchitis causing above. 3. Mediastinal adenopathy. 4. Diastolic congestive heart failure. 5. Hypertension. 6. Hypothyroidism. 7. Dyslipidemia. PLAN: Patient was improved on the day of discharge. Patient will be given a prolonged taper of steroids, inhaled steroids and Ventolin p.r.n. inhaler. Patient is to follow up with Dr. Abbe Freed for outpatient PFTs and continuation of treatment. This was discussed with the patient and patient's and her son. Time spent in the patient care was over 45 minutes.
== END 2016-04-06 16:03 | disposition home or self-care (01) | DRG 202 ==
LOC: EC 13:57 → 4MS4W 16:09
PROVIDERS: ADMIT Internal Medicine; ATTEND Internal Medicine
DX: J20.9 Acute bronchitis, unspecified (principal); J12.9 Viral pneumonia, unspecified; I50.9 Heart failure, unspecified; E03.9 Hypothyroidism, unspecified; I10 Essential (primary) hypertension; E78.5 Hyperlipidemia, unspecified; J45.909 Unspecified asthma, uncomplicated; R09.02 Hypoxemia; R59.0 Localized enlarged lymph nodes; D72.829 Elevated white blood cell count, unspecified; Z96.651 Presence of right artificial knee joint; Z79.899 Other long term (current) drug therapy; Z88.1 Allergy status to other antibiotic agents; Z88.8 Allergy status to other drugs, medicaments and biological substances
CPT/HCPCS: 36415; 71020; 80053; 82550; 82553; 83605; 84484; 85025; 93005; 94640; 96374; 99285

== ENCOUNTER → 2016-08-15 | Outpatient (CLI) | payer MEDICARE, BC ==
--- NOTE | 2016-08-15 12:02 | BD ---
EXAMINATION TYPE: MG DEXA axial skeleton. DATE OF EXAM: 08/15/2016 COMPARISON: NONE CLINICAL HISTORY: [id number] SCREENING FOR OSTEOPOROSIS Height: 62 Weight: 145.0 FRAX RISK QUESTIONS: Alcohol (3 or more units per day): no Family History (Parent hip fracture): no Glucocorticoids (More than 3mos): no (Ex: prednisone, prednisolone, methylprednisolone, dexamethasone, and hydrocortisone). History of Fracture in Adulthood: no Secondary Osteoporosis: 1. Type 1 Diabetes: no 2. Hyperthyroidism: no 3. Menopause before 45: no 4. Malnutrition: no 5. Chronic liver disease: no Rheumatoid Arthritis: no Current Tobacco Use: no RISK FACTORS HISTORY OF: Hip Fracture (Right/Left): no Spine Fracture: no History of Wrist Fracture: no Surgery to Spine/Hip(right/left)/Wrist (right/left): no Family History of Osteoporosis: yes mother Active: yes Diet low in dairy products/other sources of calcium: no Postmenopausal woman: age 56 Lost more than 2 inches in height since high school: no Frequent falls: no Adrenal Insufficiency: no MEDICATIONS: tri cor, Toprol, omeprazole, loratadine, singulair, Symbicort Thyroid Medications: synthroid How Lon years Additional History: EXAM MEASUREMENTS: Bone mineral densitometry was performed using the [employer] System. Bone mineral density as measured about the Lumbar spine is: ----- L1-L4(G/cm2): 1.206 T Score Values are as follows: ----- L2: -0.5 ----- L3: -1.1 ----- L4: 1.5 ----- L1-L4: 0.2 Bone mineral density has: increased 0.2 % since study of: 05.27.2013 Bone mineral density about the R hip (g/cm2): 0.878 Bone mineral density about the L hip (g/cm2): 0.901 T Score values are as follows: -----R Neck: -1.1 -----L Neck: -1.0 -----R Total: -1.0 -----L Total: -0.9 Bone mineral density has: decreased -5.4 % since study of: 05.27.2013 IMPRESSION: No evidence for osteoporosis or osteopenia. NOTE: T-SCORE=SD OF THE YOUNG ADULT MEAN.
== END | disposition home or self-care (01) ==
LOC: RADBDWWP 09:10
PROVIDERS: ATTEND Family Medicine
DX: Z13.820 Encounter for screening for osteoporosis (principal); Z78.0 Asymptomatic menopausal state
CPT/HCPCS: 77080

== ENCOUNTER → 2017-06-21 | Outpatient (CLI) | payer MEDICARE, BC ==
--- NOTE | 2017-06-25 09:53 | MM ---
Reason for exam: screening (asymptomatic). Last mammogram was performed 1 year and 4 months ago. History: Patient is postmenopausal. Physical Findings: A clinical breast exam by your physician is recommended on an annual basis and results should be correlated with mammographic findings. MG 3D Screening Mammo W/Cad Bilateral CC and MLO view(s) were taken. Prior study comparison: February 22, 2016, mammogram, performed at [facility]. November 09, 2014, mammogram, performed at [facility]. The breast tissue is heterogeneously dense. This may lower the sensitivity of mammography. Finding: There are typically benign linear calcifications in both breasts. There is a chronic nodularity bilaterally. There is no discrete abnormality. Left skin lesions. ASSESSMENT: Benign, BI-RAD 2 RECOMMENDATION: Routine screening mammogram of both breasts in 1 year.
== END ==
LOC: RADMAMWWP 06:58
PROVIDERS: ATTEND Family Medicine
DX: Z12.31 Encounter for screening mammogram for malignant neoplasm of breast (principal)
CPT/HCPCS: 77063; 77067

== ENCOUNTER 2017-08-04 06:30 | Inpatient (IN) | payer MEDICARE, BC ==
[2017-08-04] MEDS ORDERED: cefTRIAXone IN SWFI 2,000 MG/20 ML SYRINGE IVP STA (07:20)
[2017-08-04] MEDS ORDERED: IPRATROPIUM 0.5 MG/2.5 ML NEBU INHALATION STA (07:20)
[2017-08-04] MEDS ORDERED: SODIUM CHLORIDE 0.9% 1,000 ML IV STA (07:20)
[2017-08-04] MEDS ORDERED: ALBUTEROL NEBULIZED 2.5 MG/3 ML INHALATION STA (07:20)
[2017-08-04 07:30] LABS: Basophils # (A) 0.1 k/uL (0-0.2); Basophils % (A) 1 %; Eosinophils # (A) 0.1 k/uL (0-0.7); Eosinophils % (A) 1 %; HCT 41.5 % (34.0-46.0); HGB 13.2 gm/dL (11.4-16.0); Lymphocytes # (A) 1.4 k/uL (1.0-4.8); Lymphocytes % (A) 13 %; MCH 29.7 pg (25.0-35.0); MCHC 31.8 g/dL (31.0-37.0); MCV 93.6 fL (80.0-100.0); Mean Platelet Volume 7.5; Monocytes % (A) 10 %; Neutrophils # (A) 7.6 k/uL (1.3-7.7); Neutrophils % (A) 74 %; Platelet Count 403 k/uL (150-450); RBC 4.44 m/uL (3.80-5.40); RDW 13.2 % (11.5-15.5); WBC 10.4 k/uL (3.8-10.6)
[2017-08-04 07:42] LABS: Albumin 4.3 g/dL (3.5-5.0); Calcium 10.3 mg/dL (8.4-10.2); INR 1.1 (<1.2); Partial Thromboplastin Time 24.9 sec (22.0-30.0); Potassium 4.4 mmol/L (3.5-5.1); Prothrombin Time 10.9 sec (9.0-12.0); Total Bilirubin 0.7 mg/dL (0.2-1.3); Total Protein 8.4 g/dL (6.3-8.2)
--- NOTE | 2017-08-04 07:47 | XR ---
EXAMINATION TYPE: XR chest 2V DATE OF EXAM: 08/04/2017 COMPARISON: 04/05/2016 HISTORY: Cough and difficulty breathing. TECHNIQUE: Frontal and lateral views of the chest are obtained. FINDINGS: There is a new trace right pleural effusion obscuring the costophrenic angle. Interstitial prominence is unchanged from the prior of 04/05/2016. Cardia mediastinal silhouette is enlarged. Biap ical lucency and slight pulmonary hyperinflation are again compatible with underlying COPD. Degenerat hazel changes of the osseous structures are again noted. IMPRESSION: New trace right pleural effusion. No focal consolidation to suggest pneumonia. There is cardiomegaly and decompensated congestive heart failure could be considered.
[2017-08-04 08:05] LABS: D-Dimer 2.4 mg/L FEU (<0.60)
[2017-08-04 08:06] LABS: Creatine Kinase MB 0.9 ng/mL (0.0-2.4); Troponin I 0.02 ng/mL (0.000-0.034)
[2017-08-04] MEDS ORDERED: RX INFO: IV CONTRAST WAS GIVEN 1 EACH MISC MISCELLANE PRN (08:10)
[2017-08-04] MEDS ORDERED: FUROSEMIDE 10 MG/ML 4 ML VIAL IV STA (08:10)
--- NOTE | 2017-08-04 08:59 | CT ---
EXAMINATION TYPE: CT angio chest DATE OF EXAM: 08/04/2017 COMPARISON: NONE HISTORY: SOB, cough, elevated d dimer CT DLP: 186.7 mGycm. Automated Exposure Control for Dose Reduction was Utilized. CONTRAST: CTA scan of the thorax is performed with IV Contrast, patient injected with 51 mL of Isovue 370, pulm onary embolism protocol. MIP Images are created on CT scanner and reviewed. FINDINGS: LUNGS: The lungs are grossly clear, there is no concerning parenchymal mass or nodule identified. T here is no pleural effusion or there is a small layering right pleural effusion and associated right basilar subsegmental atelectasis. Focal patchy reticular nodular opacity seen within the inferior rig ht lower lobe on series 5 image 63 and 64 laterally. The tracheobronchial tree is patent. Pleural par enchymal scarring is seen at the lung bases. No pulmonary masses identified. MEDIASTINUM: There is satisfactory enhancement of the pulmonary artery and its branches, there is no CT evidence for pulmonary embolism. Mild prominent and few slightly enlarged mediastinal lymph nodes are seen. Enlarged mediastinal nodes within the prevascular space measures 1.1 cm in short axis. Prec arinal lymph node measures 1.2 cm in short axis. Subcarinal lymph node measures 1.0 cm in short axis. In conglomeration of right hilar lymph nodes measure 1.3 cm in short axis. No axillary adenopathy is visualized.. No cardiomegaly or pericardial effusion is seen. Main pulmonary artery is within norm al limits of size measuring 2.8 cm as is the ascending thoracic aorta measuring 3.7 cm. Moderate thre e-vessel coronary artery calcifications are noted. OTHER: Solitary benign granulomas seen within the spleen. Mild multilevel degenerative changes of the spine are noted. IMPRESSION: 1. No evidence of pulmonary embolism. 2. Small focal area of tree-in-bud opacity in the inferior right upper lobe indicates pneumonitis. Th is could be of infectious or inflammatory etiology. 3. Small right pleural effusion and right basilar compressive atelectasis. 4. Mild mediastinal adenopathy that may be reactive.
--- NOTE | 2017-08-04 10:21 | ED ---
SOB HPI - General Chief Complaint: Shortness of Breath Stated Complaint: SOB,cough Time Seen by Provider: 08/04/17 07:08 Source: patient, family Mode of arrival: ambulatory Limitations: no limitations - History of Present Illness Initial Comments: 76 years old female comes in with a shortness of breath for about 2 days she said she has been coughing up phlegm she denies any chest pain but she did notice some discomfort with deep breaths though when she coughs her chest hurts more so when she takes a deep breaths also causes chest to hurt. Denies any fever or any chills no headaches no neck stiffness no abdominal pain no frequency urgency dysuria no symptoms of TIA or CVA - Related Data Home Medications Medication Instructions Recorded Confirmed Fenofibrate Nanocrystallized 145 mg PO HS 03/29/16 08/04/17 [Fenofibrate] Multivit-Min/FA/Lycopen/Lutein 1 tab PO DAILY 03/29/16 08/04/17 [Centrum Silver Tablet] Omeprazole 20 mg PO DAILY PRN 03/29/16 08/04/17 Cholecalciferol [Vitamin D3] 1,000 unit PO DAILY 04/01/16 08/04/17 Loratadine [Claritin] 10 mg PO DAILY PRN 04/01/16 08/04/17 Albuterol Nebulized [Ventolin 2.5 mg INHALATION RT-Q4H PRN 08/04/17 08/04/17 Nebulized] Calcium Carbonate/Vitamin D3 1 tab PO DAILY 08/04/17 08/04/17 [Calcium 600-Vit D3 200 Tablet] Cyanocobalamin [Vitamin B-12] 500 mcg PO DAILY 08/04/17 08/04/17 Digoxin [Digitek] 125 mcg PO DAILY 08/04/17 08/04/17 Furosemide [Lasix] 20 mg PO DAILY 08/04/17 08/04/17 Levothyroxine Sodium [Synthroid] 175 mcg PO DAILY 08/04/17 08/04/17 Magnesium Oxide [Mag-Ox] 250 mg PO DAILY 08/04/17 08/04/17 Metoprolol Succinate (ER) [Toprol 75 mg PO DAILY 08/04/17 08/04/17 Xl] Potassium Chloride [K-Tab ER] 8 meq PO DAILY 08/04/17 08/04/17 Previous Rx's Medication Instructions Recorded Budesonide-Formot 160-4.5 Mcg 2 puff INHALATION RT-BID #1 inhaler 04/06/16 [Symbicort 160-4.5 Mcg Inhaler] Montelukast [Singulair] 10 mg PO HS #30 tab 04/06/16 Allergies Allergy/AdvReac Type Severity Reaction Status Date / Time clarithromycin [From Biaxin] Allergy Unknown Verified 08/04/17 10:06 gemifloxacin [From Factive] Allergy Unknown Verified 08/04/17 10:06 prednisone Allergy Unknown Verified 08/04/17 10:06 amoxicillin [From Augmentin] AdvReac Nausea & Verified 08/04/17 10:06 Vomiting & Diarrhea clavulanic acid AdvReac Nausea & Verified 08/04/17 10:06 [From Augmentin] Vomiting & Diarrhea Review of Systems ROS Statement: Those systems with pertinent positive or pertinent negative responses have been documented in the HPI. ROS Other: All systems not noted in ROS Statement are negative. Past Medical History Past Medical History: Heart Failure, Hyperlipidemia, Hypertension, Mitral Valve Prolapse (MVP), Thyroid Disorder Additional Past Medical History / Comment(s): HAD A PNE VACCINE AFTER AGE 67 BUT NOT SURE OF DATE,OFFICE CLOSED AT TIME OF THIS ADMIT. History of Any Multi-Drug Resistant Organisms: None Reported Past Surgical History: Section, Orthopedic Surgery Additional Past Surgical History / Comment(s): total right knee replacement Past Anesthesia/Blood Transfusion Reactions: No Reported Reaction Additional Past Anesthesia/Blood Transfusion Reaction / Comment(s): clausterphobia Past Psychological History: No Psychological Hx Reported Smoking Status: Never smoker Past Alcohol Use History: Occasional Past Drug Use History: None Reported - Past Family History Father Additional Family Medical History / Comment(s): smoker-had problems related to that Mother Additional Family Medical History / Comment(s): smoker-problems related to that General Exam - General Exam Comments Initial Comments: General: The patient is awake and alert, in no distress, and does not appear acutely ill. O2 sat is on the lower side was 87 Skin: Skin is warm and dry and no rashes or lesions are noted. Eye: Pupils are equal, round and reactive to light, extra-ocular movements are intact; there is normal conjunctiva bilaterally. Ears, nose, mouth and throat: There are moist mucous membranes and no oral lesions. Neck: The neck is supple, there is no tenderness or JVD. Cardiovascular: There is a regular rate and rhythm. No murmur, rub or gallop is appreciated. Respiratory: To auscultation bilateral, noticed crackles at the bases noticed loss of evidence of loss of secretions with inspiration and expiration bilateral Gastrointestinal: Soft, non-distended, non-tender abdomen without masses or organomegaly noted. There is no rebound or guarding present. Bowel sounds are unremarkable. Back: There is no tenderness to palpation in the midline. There is no obvious deformity. Musculoskeletal: Normal ROM, no tenderness, There is no pedal edema. There is no calf tenderness or swelling. No cords were appreciated. Neurological: CN II-XII intact, Cranial nerves III through XII are intact. There are no obvious motor or sensory deficits. Coordination appears grossly intact. Speech is normal. Psychiatric: Cooperative, appropriate mood & affect, normal judgment. Limitations: no limitations Course Vital Signs 08/04/17 08/04/17 08/04/17 06:33 07:34 07:52 Temperature 98 F Pulse Rate 98 88 93 Respiratory 20 Rate Blood Pressure 143/67 O2 Sat by Pulse 93 L Oximetry 08/04/17 09:19 Temperature 98.6 F Pulse Rate 93 Respiratory 22 Rate Blood Pressure 121/56 O2 Sat by Pulse 87 L Oximetry I am EKG is normal sinus rhythm ventricular rate is 90 MA interval is 148 QRS duration is 68 QT/QTc is 336/411. This EKG does not reveal any ST elevation or ST depression upon reassessment noticed that chest x-ray is positive for pneumonia and d- dimer is elevated we did the CT angiogram the study was negative CBC is unremarkable d-dimer was 2.4 troponin is fine EKG is normal O2 sat improved with the oxygen without the oxygen was 8586 and 87 considering his her question of pneumonia/pneumonitis some fluid overload she be admitted to the hospital this metabolic set and steroids though she has a prednisone ALLERGY listed on the chart but she said she tolerates that she has had several times in the past steroid courses she be on diuretics as well will allow consult Dr. Freed her claim adjuster Medical Decision Making - Lab Data Result diagrams: 08/04/17 06:50 08/04/17 06:50 Lab Results 08/04/17 08/04/17 08/04/17 Range/Units 06:50 06:50 06:50 WBC 10.4 (3.8-10.6) k/uL RBC 4.44 (3.80-5.40) m/uL Hgb 13.2 (11.4-16.0) gm/dL Hct 41.5 (34.0-46.0) % MCV 93.6 (80.0-100.0) fL MCH 29.7 (25.0-35.0) pg MCHC 31.8 (31.0-37.0) g/dL RDW 13.2 (11.5-15.5) % Plt Count 403 (150-450) k/uL Neutrophils % 74 % Lymphocytes % 13 % Monocytes % 10 % Eosinophils % 1 % Basophils % 1 % Neutrophils # 7.6 (1.3-7.7) k/uL Lymphocytes # 1.4 (1.0-4.8) k/uL Monocytes # 1.0 (0-1.0) k/uL Eosinophils # 0.1 (0-0.7) k/uL Basophils # 0.1 (0-0.2) k/uL PT (9.0-12.0) sec INR (<1.2) APTT (22.0-30.0) sec D-Dimer (<0.60) mg/L FEU Sodium 142 (137-145) mmol/L Potassium 4.4 (3.5-5.1) mmol/L Chloride 98 (98-107) mmol/L Carbon Dioxide 28 (22-30) mmol/L Anion Gap 16 mmol/L BUN 23 H (7-17) mg/dL Creatinine 0.86 (0.52-1.04) mg/dL Est GFR (CKD-EPI)AfAm 78 (>60 ml/min/1.73 sqM) Est GFR (CKD-EPI)NonAf 67 (>60 ml/min/1.73 sqM) Glucose 97 (74-99) mg/dL Calcium 10.3 H (8.4-10.2) mg/dL Total Bilirubin 0.7 (0.2-1.3) mg/dL AST 34 (14-36) U/L ALT 25 (9-52) U/L Alkaline Phosphatase 98 (38-126) U/L Total Creatine Kinase 47 (30-135) U/L CK-MB (CK-2) 0.9 (0.0-2.4) ng/mL CK-MB (CK-2) Rel Index 1.9 Troponin I 0.020 (0.000-0.034) ng/mL Total Protein 8.4 H (6.3-8.2) g/dL Albumin 4.3 (3.5-5.0) g/dL 08/04/17 Range/Units 06:50 WBC (3.8-10.6) k/uL RBC (3.80-5.40) m/uL Hgb (11.4-16.0) gm/dL Hct (34.0-46.0) % MCV (80.0-100.0) fL MCH (25.0-35.0) pg MCHC (31.0-37.0) g/dL RDW (11.5-15.5) % Plt Count (150-450) k/uL Neutrophils % % Lymphocytes % % Monocytes % % Eosinophils % % Basophils % % Neutrophils # (1.3-7.7) k/uL Lymphocytes # (1.0-4.8) k/uL Monocytes # (0-1.0) k/uL Eosinophils # (0-0.7) k/uL Basophils # (0-0.2) k/uL PT 10.9 (9.0-12.0) sec INR 1.1 (<1.2) APTT 24.9 (22.0-30.0) sec D-Dimer 2.40 H (<0.60) mg/L FEU Sodium (137-145) mmol/L Potassium (3.5-5.1) mmol/L Chloride (98-107) mmol/L Carbon Dioxide (22-30) mmol/L Anion Gap mmol/L BUN (7-17) mg/dL Creatinine (0.52-1.04) mg/dL Est GFR (CKD-EPI)AfAm (>60 ml/min/1.73 sqM) Est GFR (CKD-EPI)NonAf (>60 ml/min/1.73 sqM) Glucose (74-99) mg/dL Calcium (8.4-10.2) mg/dL Total Bilirubin (0.2-1.3) mg/dL AST (14-36) U/L ALT (9-52) U/L Alkaline Phosphatase (38-126) U/L Total Creatine Kinase (30-135) U/L CK-MB (CK-2) (0.0-2.4) ng/mL CK-MB (CK-2) Rel Index Troponin I (0.000-0.034) ng/mL Total Protein (6.3-8.2) g/dL Albumin (3.5-5.0) g/dL Disposition Clinical Impression: Hypoxia, Pneumonitis, Pneumonia Clinical Impression: (Ruled Out): CHF (congestive heart failure) Disposition: ADMITTED IP TO THIS HOSP Condition: Good Referrals: Paul Bonilla DO [Primary Care Provider] - 1-2 days
[2017-08-04] MEDS ORDERED: ALBUTEROL NEBULIZED 2.5 MG/3 ML INHALATION PRN (10:39)
[2017-08-04] MEDS ORDERED: LORATADINE 10 MG TAB PO PRN (10:39)
[2017-08-04] MEDS ORDERED: PANTOPRAZOLE 40 MG TABLET PO PRN (10:39)
[2017-08-04] MEDS ORDERED: LEVOFLOXACIN 750MG-D5W PMX 500 MG in DEXTROSE/WATER 1 150ML.BAG IVPB SCH (10:45)
[2017-08-04] MEDS ORDERED: IPRATROPIUM-ALBUTEROL 3 ML NEB INHALATION PRN (11:24)
--- NOTE | 2017-08-04 11:38 | P.CNPUL ---
History of Present Illness Consult date: 08/04/17 Reason for consult: dyspnea, cough, asthma, hypoxemia, pneumonia, abnormal CXR/ CT Chief complaint: Shortness of breath, wheezing History of present illness: Pulmonary consult dated 08/04/2017 76-year-old female with history of chronic bronchial asthma comes into the emergency part complaining of shortness of breath cough wheezing and shortness of breath. The patient was apparently seen at the outpatient clinic by mireille. She apparently was treated with some Augmentin and became nauseated with vomiting. She states that she's got chest tightness wheezing cough and shortness of breath. She believes her asthma is active. I see her in the office for asthma. Her asthma has been relatively stable maintained on Symbicort 160/4.5, 2 puffs twice a day Singulair 10 mg at bedtime and a rescue inhaler used when necessary. She does have a history of hypothyroidism hypertension CHF mitral valve prolapse and of course a chronic bronchial asthma. She also suffers from hyperlipidemia. She had a chest x-ray that suggested fluid overload. I don't believe that to be the case. In addition she had a computed tomography scan which suggested some pneumonitis/alveolitis. I don't believe she has deanna pneumonia. Review of Systems A 12 point review of system is positive for shortness of breath chest tightness wheezing cough chest congestion and minimal phlegm production. She also had some nausea vomiting secondary to Augmentin. Past Medical History Past Medical History: Heart Failure, Hyperlipidemia, Hypertension, Mitral Valve Prolapse (MVP), Thyroid Disorder Additional Past Medical History / Comment(s): HAD A PNE VACCINE AFTER AGE 67 BUT NOT SURE OF DATE,OFFICE CLOSED AT TIME OF THIS ADMIT. History of Any Multi-Drug Resistant Organisms: None Reported Past Surgical History: Section, Orthopedic Surgery Additional Past Surgical History / Comment(s): total right knee replacement Past Anesthesia/Blood Transfusion Reactions: No Reported Reaction Additional Past Anesthesia/Blood Transfusion Reaction / Comment(s): clausterphobia Past Psychological History: No Psychological Hx Reported Smoking Status: Never smoker Past Alcohol Use History: Occasional Past Drug Use History: None Reported - Past Family History Father Additional Family Medical History / Comment(s): smoker-had problems related to that Mother Additional Family Medical History / Comment(s): smoker-problems related to that Medications and Allergies Home Medications Medication Instructions Recorded Confirmed Type Fenofibrate Nanocrystallized 145 mg PO HS 03/29/16 08/04/17 History [Fenofibrate] Multivit-Min/FA/Lycopen/Lutein 1 tab PO DAILY 03/29/16 08/04/17 History [Centrum Silver Tablet] Omeprazole 20 mg PO DAILY PRN 03/29/16 08/04/17 History Cholecalciferol [Vitamin D3] 1,000 unit PO DAILY 04/01/16 08/04/17 History Loratadine [Claritin] 10 mg PO DAILY PRN 04/01/16 08/04/17 History Budesonide-Formot 160-4.5 Mcg 2 puff INHALATION RT-BID #1 inhaler 04/06/1608/04 Rx [Symbicort 160-4.5 Mcg Inhaler] Montelukast [Singulair] 10 mg PO HS #30 tab 04/06/16 08/04/17 Rx Albuterol Nebulized [Ventolin 2.5 mg INHALATION RT-Q4H PRN 08/04/17 08/04/17 History Nebulized] Calcium Carbonate/Vitamin D3 1 tab PO DAILY 08/04/17 08/04/17 History [Calcium 600-Vit D3 200 Tablet] Cyanocobalamin [Vitamin B-12] 500 mcg PO DAILY 08/04/17 08/04/17 History Digoxin [Digitek] 125 mcg PO DAILY 08/04/17 08/04/17 History Furosemide [Lasix] 20 mg PO DAILY 08/04/17 08/04/17 History Levothyroxine Sodium [Synthroid] 175 mcg PO DAILY 08/04/17 08/04/17 History Magnesium Oxide [Mag-Ox] 250 mg PO DAILY 08/04/17 08/04/17 History Metoprolol Succinate (ER) [Toprol 75 mg PO DAILY 08/04/17 08/04/17 History Xl] Potassium Chloride [K-Tab ER] 8 meq PO DAILY 08/04/17 08/04/17 History Allergies Allergy/AdvReac Type Severity Reaction Status Date / Time clarithromycin [From Biaxin] Allergy Unknown Verified 08/04/17 10:06 gemifloxacin [From Factive] Allergy Unknown Verified 08/04/17 10:06 prednisone Allergy Unknown Verified 08/04/17 10:06 amoxicillin [From Augmentin] AdvReac Nausea & Verified 08/04/17 10:06 Vomiting & Diarrhea clavulanic acid AdvReac Nausea & Verified 08/04/17 10:06 [From Augmentin] Vomiting & Diarrhea Physical Exam Osteopathic Statement: *. No significant issues noted on an osteopathic structural exam other than those noted in the History and Physical/Consult. Vitals: Vital Signs Temp Pulse Resp BP Pulse Ox 08/04/17 10:38 97.4 F L 89 16 127/64 96 08/04/17 09:19 98.6 F 93 22 121/56 87 L 08/04/17 07:52 93 08/04/17 07:34 88 08/04/17 06:33 98 F 98 20 143/67 93 L Intake and Output 08/03/17 08/04/17 08/04/17 22:59 06:59 14:59 Other: Weight 62.596 kg No acute distress, oriented 3. Nasal O2 in place. HEENT examination is grossly unremarkable. Mucous membranes are moist. No oral lesions. Neck supple. Full range of motion. No adenopathy thyromegaly or neck vein distention. Cardiovascular examination reveals regular rhythm rate. S1-S2 normal. No S3 or S4. No discernible murmur noted. Lungs reveal a few scattered rhonchi. There is some expiratory wheezing. Breath sounds are equal bilaterally. Slight prolongation on forced maneuver. Abdomen soft bowel sounds are heard. No masses or tenderness. Extremities are intact. No cyanosis clubbing or edema. Skin is without rash or lesion. Neurologic examination is brief but nonfocal. Results - Laboratory Findings CBC and BMP: 08/04/17 06:50 08/04/17 06:50 PT/INR, D-dimer PT 10.9 sec (9.0-12.0) 08/04/17 06:50 INR 1.1 (<1.2) 08/04/17 06:50 D-Dimer 2.40 mg/L FEU (<0.60) H 08/04/17 06:50 Abnormal lab findings: Abnormal Labs 08/04/17 08/04/17 06:50 06:50 D-Dimer 2.40 H BUN 23 H Calcium 10.3 H Total Protein 8.4 H - Diagnostic Findings Chest x-ray: report reviewed, image reviewed CT scan - chest: report reviewed (Labs x-rays and medications are all reviewed.) , image reviewed Assessment and Plan Assessment: Assessment Asthma exacerbation complicated by purulent tracheobronchitis/possible pneumonitis. I seriously doubt heart failure. History of hyperlipidemia History of hypertension History of mitral valve prolapse History of hypothyroidism History of heart failure Recent ALLERGIC reaction or side effect from Augmentin. Plan: Plan dated 08/04/2017 The patient will get Rocephin at 1 g every 24. She will get Solu-Medrol at 60 mg every 6. We added back her Singulair Symbicort and updrafts with albuterol and Atrovent. She probably could be discharged home tomorrow. She is also getting nasal O2 2 L. Chest x-ray and computed tomography scan are not very impressive. Labs are reviewed. Time with Patient: Greater than 30
[2017-08-04 11:40] VITALS: BMI 25.2
[2017-08-04] MEDS: IPRATROPIUM-ALBUTEROL 3 ML NEB INHALATION SCH ×3 (11:52→20:07)
[2017-08-04] MEDS: methylPREDNISolone SOD SUCCI 125 MG/2 ML VIAL IV SCH ×2 (12:10→17:17)
[2017-08-04] MEDS ORDERED: ACETAMINOPHEN TAB 500 MG TAB PO PRN (18:00)
[2017-08-04] MEDS ORDERED: ALPRAZolam 0.25 MG TAB PO PRN (18:00)
[2017-08-04] MEDS ORDERED: BUDESONIDE 0.5 MG/2 ML NEBU INHALATION SCH (20:00)
[2017-08-04] MEDS: SYMBICORT 160-4.5 MCG INHALER INHALATION SCH (20:07)
[2017-08-04 20:38] LABS: Glucose,Whole Blood 197 mg/dL (75-99)
[2017-08-04] MEDS ORDERED: MONTELUKAST 10 MG TAB PO SCH (21:00)
[2017-08-04] MEDS ORDERED: FENOFIBRATE 160 MG TAB PO SCH (21:00)
[2017-08-04] MEDS ORDERED: MELATONIN 3 MG TABLET PO SCH (21:00)
--- NOTE | 2017-08-04 21:35 | HP ---
HISTORY AND PHYSICAL DATE OF SERVICE: 08/04/2017 CHIEF COMPLAINT: Shortness of breath. HISTORY OF PRESENT ILLNESS: This 76-year-old woman with a past medical history of multiple medical problems, including CHF, history of hypertension, hyperlipidemia, of history of mitral valve prolapse, history of hypothyroidism, bronchial asthma, being followed by Dr. Bonilla in the outpatient setting, is having shortness of breath in the last 2 weeks. Because increasing shortness of breath, cough and sputum, patient came to [facility], admitted for further evaluation and treatment. A chest x-ray was done on admission which showed right pleural effusion. No focal signs for pneumonia as noted and a CTA was also done which showed some pneumonitis and small right pleural effusion and atelectasis. Otherwise no pulmonary embolism. Patient admitted for further evaluation and treatment. There is no history of fever, rigors. No history of headache, loss of consciousness, seizures. PAST MEDICAL HISTORY: History of CHF, hypertension, hypertension, mitral valve prolapse, history of hypothyroidism. MEDICATIONS PRIOR TO ADMISSION: Include home medications are: 1. Toprol-XL 70 mg p.o. daily. 2. Digitek 0.12 mg p.o. 3. Ventolin 2.5 q.4h p.r.n. 4. Magnesium oxide 250 mg daily. 5. B12 500 mcg p.o. daily. 6. Calcium with vitamin D p.o. daily. 7. Potassium chloride 8 mg p.o. daily. 8. Lasix 20 mg p.o. daily. 9. Omeprazole 20 mg daily p.r.n. 10.Multivitamin 1 p.o. daily. 11.Singular 10 mg q.h.s. 12.Claritin 10 mg daily p.r.n. 13.Synthroid 107 mcg p.o. daily. 14.Fenofibrate 140 mg p.o. q.h.s. 15.Vitamin D3 1000 daily. 16.Symbicort 160/4.5, 2 puffs b.i.d. ALLERGIES: CLARITIN, PREDNISONE, AMOXICILLIN. FAMILY HISTORY: History of smoking-related problems, COPD. SOCIAL HISTORY: No history of smoking. No history of alcohol intake. REVIEW OF SYSTEMS: ENT: Diminished hearing, diminished vision. CARDIOVASCULAR: As mentioned earlier. RESPIRATORY: As mentioned earlier. GI: No nausea or vomiting. : No dysuria. NERVOUS: No numbness or weakness. ALLERGY/IMMUNOLOGY: No asthma or hay fever. MUSCULOSKELETAL: As mentioned earlier. HEMATOLOGY/ONCOLOGY: No history of anemia. ENDOCRINE: No history of diabetes, hypothyroidism. CONSTITUTIONAL: As mentioned earlier. DERMATOLOGY: Negative. RHEUMATOLOGY: Negative. PSYCHIATRY: As mentioned earlier. PHYSICAL EXAMINATION: Alert and oriented x3. Pulse 92, blood pressure 130/60, respirations 18, temperature 98.2, pulse ox 98% on room air. HEENT: Conjunctivae normal. Oral mucosa moist. NECK: No jugular venous distention. No carotid bruits. No lymph node enlargement. CARDIOVASCULAR: S1, S2 muffled. RESPIRATORY: Breath sounds diminished in the bases. A few scattered rhonchi and crackles. Expiratory wheezing also present. ABDOMEN: Soft, nontender. No mass palpable. LEGS: No edema. No swelling. NERVOUS SYSTEM: Higher functions as mentioned earlier. Moves all 4 limbs. No focal motor or sensory deficits. LYMPHATIC: No lymphadenopathy in neck or axillae. SKIN: No ulcer, rash or bleeding. LABS: CBC within normal limits. is 2.40. Calcium is 10.3. ASSESSMENT: 1. Shortness of breath, possibly multifactorial, with asthma acute exacerbation as well as congestive heart failure acute exacerbation. 2. Possible pneumonia, right lower lobe. 3. History of congestive heart failure. 4. Hypertension. 5. Hyperlipidemia. 6. Mitral valve prolapse. 7. Hypothyroidism. 8.degenerative joint disease. 9. History of claustrophobia. RECOMMENDATIONS AND DISCUSSION: In this 76-year-old woman who presented with multiple complex medical issues, will monitor the patient closely. Continue with the current medications. Shortness of breath with a history of multifactorial. There could be a contribution of congestive heart failure exacerbation and minimal right pleural effusion. I would recommend IV diuretics, antibiotics, bronchodilators and closely follow with Dr. Freed. Otherwise, tree-in-bud appearance was appreciated. Resume the home medications. DVT prophylaxis. Prognosis guarded because of multiple complex medical issues. Further recommendations to follow. A copy of this will be forwarded to Dr. Bonilla, who is the primary care physician. See orders for further details. I would also recommend resuming the home medications and also monitor Accu-Cheks a.c. and at bedtime. IV steroids have been initiated. The prognosis is guarded because of multiple complex medical issues. MMODL / IJN: [id number] / ZHANE
[2017-08-04] MEDS: INSULIN ASPART 100 UNIT/ML 1 ML 10 ML VIAL SQ SCH (22:03)
[2017-08-04] MEDS: HEPARIN SODIUM,PORCINE 5,000 UNIT/ML 1 ML VIAL SQ SCH (22:04)
[2017-08-05] MEDS: methylPREDNISolone SOD SUCCI 125 MG/2 ML VIAL IV SCH ×3 (00:07→11:54)
[2017-08-05] MEDS ORDERED: LEVOTHYROXINE 88 MCG TAB PO SCH (06:30)
[2017-08-05] MEDS: IPRATROPIUM-ALBUTEROL 3 ML NEB INHALATION SCH ×2 (07:00→11:11)
[2017-08-05] MEDS: SYMBICORT 160-4.5 MCG INHALER INHALATION SCH (07:00)
[2017-08-05] MEDS: INSULIN ASPART 100 UNIT/ML 1 ML 10 ML VIAL SQ SCH ×2 (07:21→11:55)
[2017-08-05] MEDS: HEPARIN SODIUM,PORCINE 5,000 UNIT/ML 1 ML VIAL SQ SCH (07:23)
[2017-08-05 07:31] LABS: Glucose,Whole Blood 151 mg/dL (75-99)
[2017-08-05 07:45] LABS: Calcium 9.8 mg/dL (8.4-10.2); Potassium 4.6 mmol/L (3.5-5.1)
[2017-08-05 07:58] LABS: Basophils % (A) 0 %; Eosinophils % (A) 0 %; HCT 39.8 % (34.0-46.0); HGB 12.8 gm/dL (11.4-16.0); Lymphocytes # (A) 0.7 k/uL (1.0-4.8); Lymphocytes % (A) 12 %; MCHC 32.1 g/dL (31.0-37.0); MCV 93.5 fL (80.0-100.0); Mean Platelet Volume 7.4; Monocytes # (A) 0.3 k/uL (0-1.0); Monocytes % (A) 5 %; Neutrophils # (A) 5.3 k/uL (1.3-7.7); Neutrophils % (A) 83 %; Platelet Count 354 k/uL (150-450); RBC 4.26 m/uL (3.80-5.40); RDW 13.1 % (11.5-15.5); WBC 6.3 k/uL (3.8-10.6)
[2017-08-05] MEDS ORDERED: CHOLECALCIFEROL 1,000 UNIT TAB PO SCH (09:00)
[2017-08-05] MEDS ORDERED: METOPROLOL SUCCINATE (ER) 25 MG TAB.ER.24H PO SCH (09:00)
[2017-08-05] MEDS ORDERED: POTASSIUM CHLORIDE ER 10 MEQ TAB.ER.PRT PO SCH (09:00)
[2017-08-05] MEDS ORDERED: cefTRIAXone IN SWFI 2,000 MG/20 ML SYRINGE IVP SCH (09:00)
[2017-08-05] MEDS ORDERED: MAGNESIUM OXIDE 400 MG TAB PO SCH (09:00)
[2017-08-05] MEDS ORDERED: FUROSEMIDE 20 MG TAB PO SCH (09:00)
[2017-08-05] MEDS ORDERED: cefTRIAXone IN SWFI 1,000 MG/10 ML SYRINGE IVP SCH (09:00)
[2017-08-05] MEDS ORDERED: DIGOXIN 125 MCG TAB PO SCH (09:00)
[2017-08-05] MEDS ORDERED: CALCIUM CARB-VIT D 500MG-200UN 1 EACH TAB PO SCH (09:00)
[2017-08-05] MEDS ORDERED: FUROSEMIDE 40 MG TAB PO SCH (09:00)
[2017-08-05 11:24] VITALS: PULSE 88
[2017-08-05 11:38] LABS: Glucose,Whole Blood 143 mg/dL (75-99)
[2017-08-05] MEDS ORDERED: CYANOCOBALAMIN 500 MCG TAB PO SCH (12:00)
[2017-08-05] MEDS ORDERED: MULTIVITAMINS, THERA 1 EACH TAB PO SCH (12:00)
--- NOTE | 2017-08-05 14:27 | P.PN ---
Subjective Progress Note Date: 08/05/17 Principal diagnosis: Asthma exacerbation Progress note dated 08/05/2017 76-year-old female admitted with a diagnosis of asthma exacerbation complicated by purulent tracheobronchitis/possible pneumonitis. The patient is doing much better today. On room air her saturations between 92-95%. She's feeling well. Would like to be discharged. She has a history of hyperlipidemia hypertension mitral valve prolapse hypothyroidism and a history of heart failure. She also apparently recently had a reaction to Augmentin antibiotic. She denies any chest tightness wheezing cough or shortness of breath. No fever or chills. She is not coughing up any phlegm. Objective - Vital Signs Vital signs: Vital Signs Temp 97.4 F L 08/05/17 05:50 Pulse 88 08/05/17 11:23 Resp 18 08/05/17 05:50 BP 128/60 08/05/17 05:50 Pulse Ox 92 L 08/05/17 11:53 Intake & Output 08/04/17 08/05/17 08/05/17 18:59 06:59 18:59 Weight 62.596 kg Other: Voiding Method Toilet Toilet Toilet # Voids 2 1 - Exam No acute distress, oriented 3. HEENT examination is grossly unremarkable. Mucous membranes are moist. No oral lesions. Neck supple. Full range of motion. No adenopathy thyromegaly or neck vein distention. Cardiovascular examination reveals regular rhythm rate. S1-S2 normal. No S3 or S4. No discernible murmur noted. Lungs reveal scattered rhonchi. No crackles. No wheezes. Breath sounds are equal bilaterally. Breath sounds are much improved compared to yesterday's exam. Abdomen soft bowel sounds are heard. No masses or tenderness. Extremities are intact. No cyanosis clubbing or edema. Skin is without rash or lesion. Neurologic examination is brief but nonfocal. - Labs CBC & Chem 7: 08/05/17 07:06 08/05/17 07:06 Labs: Abnormal Lab Results - Last 24 Hours (Table) 08/04/17 08/05/17 08/05/17 Range/Units 20:24 07:06 07:06 Lymphocytes # 0.7 L (1.0-4.8) k/uL Chloride 97 L (98-107) mmol/L BUN 39 H (7-17) mg/dL Glucose 151 H (74-99) mg/dL POC Glucose (mg/dL) 197 H (75-99) mg/dL 08/05/17 08/05/17 Range/Units 07:09 11:32 Lymphocytes # (1.0-4.8) k/uL Chloride (98-107) mmol/L BUN (7-17) mg/dL Glucose (74-99) mg/dL POC Glucose (mg/dL) 151 H 143 H (75-99) mg/dL Assessment and Plan Assessment: Assessment Asthma exacerbation complicated by purulent tracheobronchitis/possible pneumonitis. I seriously doubt heart failure. History of hyperlipidemia History of hypertension History of mitral valve prolapse History of hypothyroidism History of heart failure Recent ALLERGIC reaction or side effect from Augmentin. Plan: Plan dated 08/04/2017 The patient will get Rocephin at 1 g every 24. She will get Solu-Medrol at 60 mg every 6. We added back her Singulair Symbicort and updrafts with albuterol and Atrovent. She probably could be discharged home tomorrow. She is also getting nasal O2 2 L. Chest x-ray and computed tomography scan are not very impressive. Labs are reviewed. Plan dated 08/05/2017 The patient's electrolyte profile looks pretty good. BUN and creatinine are 39 and 0.90. CBC is completely normal. CT angiogram was negative for pulmonary embolism. There was a small focal area of tree-in-bud opacity in the inferior right upper lobe indicating pneumonitis. There is a small right pleural effusion and some atelectasis at the right base. All in all she is doing well. She could be discharged home on her normal asthma medications a brief prednisone burst and taper 30 mg for 4 days 20 mg 4 days 10 mg for 4 days and stop. In addition, she should be sent home on a short course of antibiotics. I need to see my office in the next week or so. Time with Patient: Less than 30
[2017-08-05 14:33] VITALS: BP 125/68; RESP 16; TEMP 97.2
--- NOTE | 2017-08-06 06:28 | DS ---
DISCHARGE SUMMARY FINAL DIAGNOSES: 1. Shortness of breath, possibly acute asthma, acute exacerbation as well as acute tracheobronchitis. 2. Possible pneumonia right lower lobe. 3. History of congestive heart failure with possible acute on chronic congestive heart failure acute exacerbation. 4. Hypertension. 5. Hyperlipidemia. 6. Mitral valve prolapse. 7. Hypothyroidism. 8. History of degenerative joint disease. 9. History of claustrophobia. DISCHARGE DISPOSITION: The patient will be discharged in stable condition with guarded prognosis. HISTORY OF PRESENT ILLNESS: This 76-year-old woman with a past medical history of multiple medical problems was admitted with shortness of breath thought to be multifactorial and the patient was treated with diuretics. Patient improved significantly. On exam, vital signs stable. Cardiology: S1, S2. Abdomen soft. Nervous system: No focal deficits. Dr. Freed saw the patient, cleared the patient for discharge. DISCHARGE INSTRUCTIONS: 1. Discharge diet is cardiac diet. 2. Fluid restriction 1500 mL. 3. Follow up with Dr. Hermila Bonilla in 2 to 3 days. 4. Follow up with Dr. Freed as recommended. 5. Follow up with Cardiology as recommended. DISCHARGE MEDICATIONS: 1. Symbicort 160/4.5 two puffs b.i.d. 2. Calcium with vitamin D 1 p.o. daily. 3. Ceftin 500 mg p.o. b.i.d. for 4 days. 4. Vitamin D3 1000 daily. 5. Vitamin B12 500 mg. 6. Digitek 0.125 mg p.o. daily. 7. Fenofibrate 140 mg q.h.s. 8. Lasix 20 mg p.o. daily. 9. DuoNeb q.i.d. and p.r.n. 10.Synthroid 175 mcg. 11.Claritin 10 mg p.o. daily. 12.Magnesium oxide 250 mg b.i.d. 13.Metoprolol 75 mg. 14.Singular 10 mg q.h.s. 15.Multivitamins 1 p.o. daily. 16.Omeprazole 20 mg. 17.K-tab ER 8 mEq p.o. daily. 18.Prednisone 40 mg daily for 3 days, 30 for 3 days, 20 for 3 days, 10 for 3 days. Once again, the patient is being discharged in stable condition with guarded prognosis. MMODL / IJN: [id number] /
[2017-08-06 13:06] LABS: Hemoglobin A1C 5.7 % (4.0-6.0)
--- NOTE | 2017-08-12 10:08 | CDI ---
Documentation Clarification Form Date: 08/12/2017 12:00:00 AM From: Nicole Turner-- Phone: [phone] Admit Date: 08/04/2017 10:46:00 AM Patient Name: Ulises Grande Visit Number: [id number] Discharge Date: ATTENTION: The Clinical Documentation Specialists (CDI) and [facility] Coding Staff appreciate your assistance in clarifying documentation. Please respond to the clarification below the line at the bottom and electronically sign. The CDI & [facility] Coding staff will review the response and follow-up if needed. Please note: Queries are made part of the Legal Health Record. If you have any questions, please contact the author of this message via ITS. Dr. Jaya Chavarria: History/Risk Factors:. Documentation of Acute and Chronic CHF in H and P and DCS. Clinical Indicators: Patient had pneumonia and history of CHF VS/Pulse OX: 98% BNP: 1840 Echocardiogram Results: Chest X Ray: cardiomegaly and decompensated CHF to be considered. Treatment: diuretics Home on Lasix In your professional opinion, can you please clarify the acuity and type of CHF if known? Systolic Heart Failure: Diastolic Heart Failure: Systolic & Diastolic Heart Failure: Unable to Determine: Unable to Determine MTDD
== END 2017-08-05 17:09 | disposition home or self-care (01) | DRG 202 ==
LOC: EC 06:30 → 5MS5E 10:46
PROVIDERS: ADMIT Hospitalist; ATTEND Hospitalist
DX: J45.901 Unspecified asthma with (acute) exacerbation (principal); J18.9 Pneumonia, unspecified organism; J98.11 Atelectasis; J20.9 Acute bronchitis, unspecified; E03.9 Hypothyroidism, unspecified; E78.5 Hyperlipidemia, unspecified; F40.240 Claustrophobia; I11.0 Hypertensive heart disease with heart failure; I34.1 Nonrheumatic mitral (valve) prolapse; I50.9 Heart failure, unspecified; M19.90 Unspecified osteoarthritis, unspecified site; R09.02 Hypoxemia; Z79.51 Long term (current) use of inhaled steroids; Z79.899 Other long term (current) drug therapy; Z82.5 Family history of asthma and other chronic lower respiratory diseases; Z88.0 Allergy status to penicillin; Z96.651 Presence of right artificial knee joint; Z88.1 Allergy status to other antibiotic agents; Z88.2 Allergy status to sulfonamides; Z88.8 Allergy status to other drugs, medicaments and biological substances; Z79.890 Hormone replacement therapy
CPT/HCPCS: 36415; 71046; 71275; 80048; 80053; 82550; 82553; 83036; 83880; 84484; 85025; 85379; 85610; 85730; 93005; 94640; 94760; 96361; 96374; 96375; 99285

== ENCOUNTER → 2018-10-28 | Outpatient (CLI) | payer MEDICARE, BC ==
--- NOTE | 2018-10-29 09:57 | MM ---
Reason for exam: screening (asymptomatic). Last mammogram was performed 1 year and 4 months ago. History: Patient is postmenopausal. Physical Findings: A clinical breast exam by your physician is recommended on an annual basis and results should be correlated with mammographic findings. MG 3D Screening Mammo W/Cad Bilateral CC and MLO view(s) were taken. Prior study comparison: June 21, 2017, bilateral MG 3d screening mammo w/cad. February 22, 2016, mammogram, performed at [facility]. The breast tissue is heterogeneously dense. This may lower the sensitivity of mammography. Stable benign calcifications. There is no discrete abnormality. No significant changes when compared with prior studies. ASSESSMENT: Benign, BI-RAD 2 RECOMMENDATION: Routine screening mammogram of both breasts in 1 year.
== END | disposition home or self-care (01) ==
LOC: RADMAMWWP 07:37
PROVIDERS: ATTEND Family Medicine
DX: Z12.31 Encounter for screening mammogram for malignant neoplasm of breast (principal)
CPT/HCPCS: 77063; 77067

== ENCOUNTER → 2021-02-16 | Outpatient (CLI) | payer MEDICARE, BC ==
--- NOTE | 2021-02-17 08:51 | BD ---
EXAMINATION TYPE: Axial Bone Density DATE OF EXAM: 02/16/2021 COMPARISON: NONE CLINICAL HISTORY: Height: 5 FT 1 3/4 IN Weight: 127 FRAX RISK QUESTIONS: Alcohol (3 or more units per day): NO Family History (Parent hip fracture): NO Glucocorticoids (More than 3mos): MAYBE (Ex: prednisone, prednisolone, methylprednisolone, dexamethasone, and hydrocortisone). History of Fracture in Adulthood: YES Secondary Osteoporosis: 1. Type 1 Diabetes: NO 2. Hyperthyroidism: NO 3. Menopause before 45: NO 4. Malnutrition: NO 5. Chronic liver disease: NO Rheumatoid Arthritis: YES Current Tobacco Use: NO RISK FACTORS HISTORY OF: Surgery to Spine/Hip(right/left)/Wrist (right/left): NO Family History of Osteoporosis: NO Active: YES Diet low in dairy products/other sources of calcium: NO Postmenopausal woman: YES Take estrogen and/or progesterone medications: NO Lost more than 2 inches in height since high school: YES Frequent falls: NO Poor Health: GOOD Hyperparathyroidism: NO Adrenal Insufficiency: NO MEDICATIONS: Thyroid Medications: YES Which medication: LEVOTHYROXINE How Lon PLUS YEARS Additional Medications: LEVOTHYROXINE, METOPROLOL, DIGOXIN, H20 PILL, CHOLESTEROL, OMEPRAZOLE, SYMBIC ORT, SINGULAIR, LORATADINE, TOPROL, Additional History: EXAM MEASUREMENTS: Bone mineral densitometry was performed using the 10Six System. Bone mineral density as measured about the Lumbar spine is: ----- L1-L4(G/cm2): 1.128 T Score Values are as follows: ----- L2: -1.0 ----- L3: -0.1 ----- L4: -0.1 ----- L1-L4: -0.4 Bone mineral density has: INCREASED 3.8 % since study of: 2017 Bone mineral density about the R hip (g/cm2): 0.836 Bone mineral density about the L hip (g/cm2): 0.817 T Score values are as follows: -----R Neck: -1.5 -----L Neck: -1.6 -----R Total: -1.7 -----L Total: -1.8 Bone mineral density has: DECREASED -11.0% since study of: 2017 IMPRESSION: Osteopenia NOTE: T-SCORE=SD OF THE YOUNG ADULT MEAN.
== END | disposition home or self-care (01) ==
LOC: RADBDWWP 15:37
PROVIDERS: ATTEND Family Medicine
DX: M85.89 Other specified disorders of bone density and structure, multiple sites (principal); Z78.0 Asymptomatic menopausal state
CPT/HCPCS: 77080

== ENCOUNTER → 2021-06-09 | Outpatient (CLI) | payer MEDICARE, BC ==
--- NOTE | 2021-06-09 14:50 | CT ---
EXAMINATION TYPE: CT chest wo con DATE OF EXAM: 06/09/2021 INDICATION: Pulmonary hypertension and difficulty breathing. CT DLP: 378.5 mGy.cm Automated Exposure Control for Dose Reduction was Utilized. TECHNIQUE AND CONTRAST: Axial CT scan of the chest in the prone and supine position without IV contrast administration as per high-resolution protocol. COMPARISON: CT dated 08/04/2017 FINDINGS: Small right pleural fluid with suspected adjacent pleural thickening, empyema cannot be excluded. Min imal right posterior basal subpleural reticulation and minimal fibrotic changes. Bilateral basal line ar pulmonary atelectasis. Unremarkable remainder of the lungs with no areas of consolidation, groundglass opacities, other area s of reticulations, honeycombing, cystic changes, traction bronchiectasis or pulmonary calcification. Pulmonary nodules are suboptimally assessed by this CT scan. Patent trachea and main bronchi. No left-sided pleural effusion. Cardiomegaly with coronary and arter ial atherosclerotic calcifications. The pulmonary trunk measuring up to 2.4 cm suggestive of pulmonar y hypertension. Subcentimeter prevascular, other mediastinal and hilar lymph nodes, appreciated previously. 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 Questionable osteopenia. Degenerative changes of the thoracic spine. IMPRESSION: Small right pleural effusion with adjacent thickened pleura, empyema cannot be excluded, please corre late clinically. Minimal right basal posterior pulmonary changes, nonspecific. No convincing evidence of interstitial lung disease. Cardiomegaly with suspected pulmonary hypertension. Other findings as described above.
== END | disposition home or self-care (01) ==
LOC: RADCTMAIN 13:44
PROVIDERS: ATTEND Internal Medicine Critical Care Medicine
DX: I51.7 Cardiomegaly (principal); J98.4 Other disorders of lung
CPT/HCPCS: 71250

== ENCOUNTER 2021-08-09 18:30 | Inpatient (IN) | payer MEDICARE, BC ==
[2021-08-09] MEDS ORDERED: NITROGLYCERIN OINT 1 INCH/GM PACKET TOPICAL STA (18:50)
[2021-08-09] MEDS ORDERED: NITROGLYCERIN SL TABS 0.4 MG TAB SUBLINGUAL STA (18:50)
[2021-08-09] MEDS ORDERED: ASPIRIN 81 MG PO STA (18:50)
[2021-08-09] MEDS ORDERED: HEPARIN SODIUM 1,000 UN/ML (10ML VL) IVP ONE (18:59)
[2021-08-09] MEDS ORDERED: SODIUM CHLORIDE 0.9% 1,000 ML IV ONE (19:02)
--- NOTE | 2021-08-09 19:02 | ED ---
General Adult HPI - General Chief complaint: Chest Pain Stated complaint: Chest pain Time Seen by Provider: 08/09/21 18:45 Source: patient, RN notes reviewed, old records reviewed Mode of arrival: ambulatory Limitations: no limitations - History of Present Illness Initial comments: This is a 80-year-old female presents emergency Department complaining of severe chest heaviness starting at 3:00 this afternoon. Patient states she didn't come to the emergency department at that time because her grandson was there and she did not want interrupt his visit. Patient states she has shortness of breath and is very nauseated and vomited times one. Patient denies any coronary artery disease first out but states both of her parents had coronary artery disease per patient denies any smoking. Patient does have high blood pressure and high cholesterol. Patient states she's on digoxin but she does know what for. Patient denies any abdominal pain patient denies any back pain. Patient denies any extremity pain or jaw pain. Patient denies headache patient denies numbness weakness. Patient denies any swelling to the legs or calf tenderness. - Related Data Home Medications Medication Instructions Recorded Confirmed Multivit-Min/FA/Lycopen/Lutein 1 tab PO DAILY 03/29/16 08/09/21 [Centrum Silver Tablet] Omeprazole 20 mg PO DAILY 03/29/16 08/09/21 Digoxin [Digitek] 125 mcg PO DAILY 08/04/17 08/09/21 Furosemide [Lasix] 20 mg PO DAILY 08/04/17 08/09/21 Metoprolol Succinate (ER) [Toprol 75 mg PO DAILY 08/04/17 08/09/21 XL] Potassium Chloride [K-Tab ER] 8 meq PO DAILY 08/04/17 08/09/21 Albuterol Inhaler [Ventolin Hfa 2 puff INHALATION RT-QID PRN 08/09/21 08/09/21 Inhaler] Alendronate Sodium [Fosamax] 70 mg PO Q7D 08/09/21 08/09/21 Atorvastatin [Lipitor] 20 mg PO DAILY 08/09/21 08/09/21 Calcium Carbonate [Calcium] 600 mg PO DAILY 08/09/21 08/09/21 Cholecalciferol [Vitamin D3 (25 50 mcg PO DAILY 08/09/21 08/09/21 Mcg = 1000 Iu)] Ipratropium-Albuterol Nebulize 3 ml INHALATION RT-BID PRN 08/09/21 08/09/21 [Duoneb 0.5 mg-3 mg/3 ml Soln] Levothyroxine Sodium [Synthroid] 112 mcg PO DAILY 08/09/21 08/09/21 Magnesium Oxide [Darden] 500 mg PO DAILY 08/09/21 08/09/21 Montelukast [Singulair] 10 mg PO DAILY 08/09/21 08/09/21 Indiahoma-3 Acid Ethyl Esters [Lovaza] 1 gm PO QID 08/09/21 08/09/21 Previous Rx's Medication Instructions Recorded Budesonide-Formot 160-4.5 Mcg 2 puff INHALATION RT-BID #1 inhaler 04/06/16 [Symbicort 160-4.5 Mcg Inhaler] Allergies Allergy/AdvReac Type Severity Reaction Status Date / Time clarithromycin [From Biaxin] Allergy Unknown Verified 08/09/21 18:56 gemifloxacin [From Factive] Allergy Unknown Verified 08/09/21 18:56 prednisone Allergy Unknown Verified 08/09/21 18:56 amoxicillin [From Augmentin] AdvReac Nausea & Verified 08/09/21 18:56 Vomiting & Diarrhea clavulanic acid AdvReac Nausea & Verified 08/09/21 18:56 [From Augmentin] Vomiting & Diarrhea Review of Systems ROS Statement: Those systems with pertinent positive or pertinent negative responses have been documented in the HPI. ROS Other: All systems not noted in ROS Statement are negative. Past Medical History Past Medical History: Heart Failure, Hyperlipidemia, Hypertension, Mitral Valve Prolapse (MVP), Thyroid Disorder Additional Past Medical History / Comment(s): HAD A PNE VACCINE AFTER AGE 67 BUT NOT SURE OF DATE,OFFICE CLOSED AT TIME OF THIS ADMIT. History of Any Multi-Drug Resistant Organisms: None Reported Past Surgical History: Section, Orthopedic Surgery Additional Past Surgical History / Comment(s): total right knee replacement Past Anesthesia/Blood Transfusion Reactions: No Reported Reaction Additional Past Anesthesia/Blood Transfusion Reaction / Comment(s): claust erphobia Past Psychological History: No Psychological Hx Reported Smoking Status: Never smoker Past Alcohol Use History: Occasional Past Drug Use History: None Reported - Past Family History Father Additional Family Medical History / Comment(s): smoker-had problems related to that Mother Additional Family Medical History / Comment(s): smoker-problems related to that General Exam - General Exam Comments Initial Comments: GENERAL: Patient is well-developed and well-nourished. Patient is nontoxic and well- hydrated and is in mild distress. ENT: Neck is soft and supple. No significant lymphadenopathy is noted. Oropharynx is clear. Moist mucous membranes. Neck has full range of motion without eliciting any pain. EYES: The sclera were anicteric and conjunctiva were pink and moist. Extraocular movements were intact and pupils were equal round and reactive to light. Eyelids were unremarkable. PULMONARY: Unlabored respirations. Good breath sounds bilaterally. No audible rales rhonchi or wheezing was noted. CARDIOVASCULAR: There is a regular rate and rhythm without any murmurs gallops or rubs. ABDOMEN: Soft and nontender with normal bowel sounds. SKIN: Skin is clear with no lesions or rashes and otherwise unremarkable. NEUROLOGIC: Patient is alert and oriented x3. Cranial nerves II through XII are grossly intact. Motor and sensory are also intact. Normal speech, volume and content. Symmetrical smile. MUSCULOSKELETAL: Normal extremities with adequate strength and full range of motion. LYMPHATICS: No significant lymphadenopathy is noted PSYCHIATRIC: Normal psychiatric evaluation. Limitations: no limitations Course Vital Signs 08/09/21 08/09/21 18:33 18:47 Temperature 97.4 F L Pulse Rate 69 63 Respiratory 20 18 Rate Blood Pressure 183/68 184/82 O2 Sat by Pulse 97 97 Oximetry Medical Decision Making - Medical Decision Making EKG shows sinus rhythm at 63 bpm OH interval 137 QRS is 86 QT interval 384 QTC is 392. Patient has marked ST segment elevation in V1 and V2 and V3 and slight ST segment elevation in V4. Soon as I received EKG I called a STEMI overhead. I spoke with Dr. Schaefer shortly thereafter he agreed and stated that he will come in to take the patient to the catheterization lab. I spoke with [facility] hospitalist and they agreed to admit the patient and the patient remaining orders. Dr. Schaefer arrived at the emergency department at 7:21 PM - Lab Data Result diagrams: 08/09/21 18:56 08/09/21 18:56 Lab Results 08/09/21 08/09/21 08/09/21 Range/Units 18:56 18:56 18:56 WBC 12.9 H (3.8-10.6) k/uL RBC 4.24 (3.80-5.40) m/uL Hgb 13.0 (11.4-16.0) gm/dL Hct 41.7 (34.0-46.0) % MCV 98.3 (80.0-100.0) fL MCH 30.6 (25.0-35.0) pg MCHC 31.1 (31.0-37.0) g/dL RDW 12.2 (11.5-15.5) % Plt Count 337 (150-450) k/uL MPV 7.8 Neutrophils % 64 % Lymphocytes % 27 % Monocytes % 6 % Eosinophils % 0 % Basophils % 1 % Neutrophils # 8.2 H (1.3-7.7) k/uL Lymphocytes # 3.4 (1.0-4.8) k/uL Monocytes # 0.8 (0-1.0) k/uL Eosinophils # 0.1 (0-0.7) k/uL Basophils # 0.1 (0-0.2) k/uL PT 10.5 (9.0-12.0) sec INR 1.0 (<1.2) APTT 23.6 (22.0-30.0) sec Sodium 137 (137-145) mmol/L Potassium 4.2 (3.5-5.1) mmol/L Chloride 101 (98-107) mmol/L Carbon Dioxide 27 (22-30) mmol/L Anion Gap 9 mmol/L BUN 21 H (7-17) mg/dL Creatinine 0.91 (0.52-1.04) mg/dL Est GFR (CKD-EPI)AfAm 70 (>60 ml/min/1.73 sqM) Est GFR (CKD-EPI)NonAf 61 (>60 ml/min/1.73 sqM) Glucose 232 H (74-99) mg/dL Calcium 9.7 (8.4-10.2) mg/dL Magnesium 1.8 (1.6-2.3) mg/dL Total Bilirubin 0.4 (0.2-1.3) mg/dL AST 35 (14-36) U/L ALT 26 (4-34) U/L Alkaline Phosphatase 81 (38-126) U/L Total Protein 7.7 (6.3-8.2) g/dL Albumin 4.2 (3.5-5.0) g/dL Lipase 232 (23-300) U/L Critical Care Time Critical Care Time: Yes Total Critical Care Time: 35 Disposition Clinical Impression: ST elevation myocardial infarction (STEMI) Disposition: ADMITTED IP TO THIS HOSP Time of Disposition: 19:01
[2021-08-09 19:05] LABS: Basophils # (A) 0.1 k/uL (0-0.2); Basophils % (A) 1 %; Eosinophils # (A) 0.1 k/uL (0-0.7); Eosinophils % (A) 0 %; HCT 41.7 % (34.0-46.0); Lymphocytes # (A) 3.4 k/uL (1.0-4.8); Lymphocytes % (A) 27 %; MCH 30.6 pg (25.0-35.0); MCHC 31.1 g/dL (31.0-37.0); MCV 98.3 fL (80.0-100.0); Mean Platelet Volume 7.8; Monocytes # (A) 0.8 k/uL (0-1.0); Monocytes % (A) 6 %; Neutrophils # (A) 8.2 k/uL (1.3-7.7); Neutrophils % (A) 64 %; Platelet Count 337 k/uL (150-450); RBC 4.24 m/uL (3.80-5.40); RDW 12.2 % (11.5-15.5); WBC 12.9 k/uL (3.8-10.6)
[2021-08-09 19:11] LABS: Partial Thromboplastin Time 23.6 sec (22.0-30.0); Prothrombin Time 10.5 sec (9.0-12.0)
[2021-08-09 19:20] LABS: Albumin 4.2 g/dL (3.5-5.0); Calcium 9.7 mg/dL (8.4-10.2); Magnesium 1.8 mg/dL (1.6-2.3); Potassium 4.2 mmol/L (3.5-5.1); Total Bilirubin 0.4 mg/dL (0.2-1.3); Total Protein 7.7 g/dL (6.3-8.2)
[2021-08-09] MEDS ORDERED: VERAPAMIL 2.5 MG/ML 2 ML AMP ONE (19:28)
[2021-08-09] MEDS ORDERED: HEPARIN SODIUM,PORCINE 30 ML 30 ML ONE (19:36)
[2021-08-09] MEDS ORDERED: HEPARIN SODIUM 1,000 UN/ML (10ML VL) ONE (19:39)
[2021-08-09] MEDS ORDERED: LIDOCAINE 1% INJ 10MG/ML (30 ML VIAL-PF) SQ ONE (19:41)
[2021-08-09] MEDS ORDERED: MIDAZOLAM 2 MG/2 ML VIAL IV ONE (19:41)
--- NOTE | 2021-08-09 19:42 | XR ---
EXAMINATION TYPE: XR chest 1V portable DATE OF EXAM: 08/09/2021 7:13 PM COMPARISON: Chest radiographs from 08/04/2012 TECHNIQUE: XR chest 1V portable Frontal view of the chest. CLINICAL INDICATION:Female, 80 years old with history of Chest Pain; FINDINGS: Lungs/Pleura: There is no evidence of pleural effusion, focal consolidation, or pneumothorax. Pulmonary vascularity: Unremarkable. Heart/mediastinum: Cardiomediastinal silhouette is enlarged and stable. Musculoskeletal: No acute osseous pathology. IMPRESSION: 1. No acute cardiopulmonary disease/process. 2. Similar cardiomegaly
[2021-08-09] MEDS: HEPARIN SODIUM 1,000 UN/ML (10ML VL) IV ONE ×3 (19:47→20:41)
[2021-08-09] MEDS ORDERED: IV FLUID CONTINUATION 1,000 ML IV ONE ×2 (19:49)
[2021-08-09] MEDS ORDERED: HYDROmorphone 0.5 MG/0.5 ML SYRINGE IVP ONE (20:15)
--- NOTE | 2021-08-09 20:15 | CONS ---
CONSULTATION This is a 80-year-old lady with history of hypertension, hyperlipidemia, borderline diabetes, who is under the care of Dr. Bonilla and Dr. Valencia. She had a stress test 2 years ago, an echo about a year and a half ago, and these according to the patient were normal. She has been on a combination of beta blockers and also atorvastatin. She had chest discomfort, tightness and pressure at 3 p.m. which continued to persist, got worse at 6 p.m. and she decided to come into the emergency room. Earlier in the day she had no symptoms. She ambulated and went shopping. She also has bronchial asthma and hypothyroidism. I evaluated her in the emergency room. She was comfortable, had a pain of about 4/10. EKG revealed precordial ST elevation. Clinical picture was that of acute anterior ST-elevation PR and she was advised prompt cardiac catheterization. Rationale, risks, benefits and options were explained to the patient and her . They understood all details and wished to proceed with the procedure. MEDICATIONS: Medications at home include levothyroxine, atorvastatin, potassium supplements, Singulair, metoprolol succinate 75 mg daily, digoxin 0.125 mg daily, Fosamax and Lasix 20 mg daily. ALLERGIES: She is allergic to SOME ANTIBIOTICS IN THE FORM OF AMOXICILLIN AND BIAXIN. PHYSICAL EXAMINATION: On examination, blood pressure is 160/70, pulse rate is 70 per minute, regular. HEENT unremarkable. Fundus was not examined by me. Neck is supple. There is no JVD. I do not hear a carotid bruit. Heart exam reveals S1, S2 with an ejection systolic murmur 2/6 at the base of the heart with well preserved second heart sound. Lungs are clear. Abdomen is soft, nontender. Lower extremities reveal palpable pulses. No edema. Central nervous system was normal. EKG revealed a sinus mechanism with precordial ST elevation. IMPRESSION: 1. Acute anterior ST-elevation myocardial infarction. 2. History of hypertension. 3. Hyperlipidemia. 4. Hypothyroidism. 5. History of borderline diabetes. RECOMMENDATIONS: Prompt cardiac cardiac catheterization and PCI advised. Risks, benefits and options explained. Patient and her understand and wish to proceed with the procedure. MMODL / IJN: [id number] /
[2021-08-09] MEDS ORDERED: CLOPIDOGREL 75 MG TAB ONE (20:25)
[2021-08-09] MEDS ORDERED: CLOPIDOGREL 75 MG TAB PO ONE (20:30)
[2021-08-09] MEDS ORDERED: IOPAMIDOL-370 125ML BTL INJ ONE (20:30)
[2021-08-09] MEDS ORDERED: IOPAMIDOL-370 100ML BTL INJ ONE (20:42)
[2021-08-09] MEDS ORDERED: amLODIPine 5 MG TAB ONE (20:48)
[2021-08-09] MEDS ORDERED: amLODIPine 5 MG TAB PO ONE (20:50)
[2021-08-09] MEDS ORDERED: MAG HYDROX/AL HYDROX/SIMETH 30 ML CUP PO PRN (21:18)
[2021-08-09] MEDS ORDERED: ATROPINE SULFATE 0.1 MG/ML 10ML SYRINGE IV PRN (21:18)
[2021-08-09] MEDS ORDERED: RX INFO: IV CONTRAST WAS GIVEN 1 EACH MISC MISCELLANE PRN (21:18)
[2021-08-09] MEDS ORDERED: NITROGLYCERIN SL TABS 0.4 MG TAB SUBLINGUAL PRN (21:18)
[2021-08-09 21:29] LABS: Glucose,Whole Blood 139 mg/dL (75-99)
[2021-08-09] MEDS ORDERED: SODIUM CHLORIDE 0.9% 1,000 ML in EMPTY BAG 1 BAG IV SCH (21:30)
[2021-08-09] MEDS: lisinopriL 10 MG TAB PO SCH (22:19)
[2021-08-09] MEDS: ATORVASTATIN 80 MG TAB PO SCH (22:19)
[2021-08-09] MEDS: ZOLPIDEM 5 MG TAB PO PRN (22:56)
[2021-08-09 23:10] LABS: ALT 28 U/L (4-34); AST 79 U/L (14-36); African American GFR (CKD) 79 (>60 ml/min/1.73 sqM); Albumin 3.8 g/dL (3.5-5.0); Alkaline Phosphatase 80 U/L (38-126); Anion Gap 7 mmol/L; Blood Urea Nitrogen 18 mg/dL (7-17); Calcium 9.1 mg/dL (8.4-10.2); Carbon Dioxide 28 mmol/L (22-30); Chloride 101 mmol/L (98-107); Glucose 145 mg/dL (74-99); Non-African American GFR(CKD) 69 (>60 ml/min/1.73 sqM); Potassium 4.5 mmol/L (3.5-5.1); Sodium 136 mmol/L (137-145); Total Bilirubin 0.4 mg/dL (0.2-1.3); Total Protein 7.2 g/dL (6.3-8.2)
[2021-08-09 23:27] LABS: T4, Free (Free Thyroxine) 2.35 ng/dL (0.78-2.19)
[2021-08-10] MEDS ORDERED: ACETAMINOPHEN TAB 325 MG TAB PO PRN (00:50)
[2021-08-10 07:22] LABS: African American GFR (CKD) >90 (>60 ml/min/1.73 sqM); Anion Gap 7 mmol/L; Blood Urea Nitrogen 17 mg/dL (7-17); Carbon Dioxide 25 mmol/L (22-30); Chloride 106 mmol/L (98-107); Glucose 104 mg/dL (74-99); Non-African American GFR(CKD) 86 (>60 ml/min/1.73 sqM); Sodium 138 mmol/L (137-145)
[2021-08-10 07:30] LABS: Potassium 4.7 mmol/L (3.5-5.1)
--- NOTE | 2021-08-10 08:12 | CC ---
CARDIAC CATHETERIZATION REPORT DATE OF SERVICE: 08/09/2021. PROCEDURE: 1. Left heart catheterization and coronary angiography. 2. PTCA and stenting of a subtotally occluded mid LAD, heavily calcified with 3 drug- eluting stents. Performed in the setting of an acute anterior ST-elevation IN with reperfusion accomplished in 86 minutes. PERFORMED BY: Dr. Marion Schaefer. Moderate conscious sedation time was 1 hour and 3 minutes. CLINICAL INFORMATION: Mrs. Ulises Grande is 80 years of age and she has hypothyroidism bronchial asthma, hypertension, and hyperlipidemia. She had chest pain around 2:30 or 3 o'clock this afternoon and continued to persist, came into the emergency room, had precordial ST elevation. Was advised prompt cardiac catheterization and PCI and brought in for the procedure. PROCEDURE NOTE: Under local anesthesia and strict aseptic precautions, a 6-Marshallese introducer was placed in the right femoral artery. I started off with a standard left 6-Marshallese Jose M type guide catheter of 4.0 curved and performed intervention of the LAD. I then used a right Jose M catheter to check LV pressures and right coronary angiography was performed. Then the sheath was taken out and Angio-Seal device used to secure hemostasis and she was sent to the room in a stable condition. Results were discussed with the patient and her . CARDIAC CATHETERIZATION FINDINGS: Left ventricular end-diastolic pressure was 16 mmHg with less than 10 mm gradient across aortic valve. CORONARY ANGIOGRAPHY FINDINGS: RIGHT CORONARY ARTERY: This is a dominant vessel, has minor irregularities. No significant obstructive disease and distally bifurcates into larger PDA a smaller PLV, both of which supply a sizable amount of myocardium. There are minor irregularities in the branches of the RCA, but no significant disease. LEFT MAIN CORONARY ARTERY: Short, patent disease-free vessel that immediately bifurcates into LAD and circumflex. No significant disease. LEFT ANTERIOR DESCENDING CORONARY ARTERY: This is a good caliber vessel extends along the anterior wall. There is a heavy calcification of the LAD noted. The proximal portion of the LAD is heavily calcified and there is evidence of a good-sized septal branch and a good-sized diagonal branch which is actually the second diagonal branch and immediately after the diagonal branch there was a 99% stenosis with haziness and thrombus and sluggish flow in the rest of the LAD. The mid LAD is the culprit lesion with thrombus and calcification but proximal to the lesion there is a long area of about 35% narrowing with heavy calcification noted. There is a smaller diagonal that comes off proximal to it which has about 60% narrowing, but it is a very small diagonal. LEFT POSTERIOR CIRCUMFLEX CORONARY ARTERY: Nondominant vessel large in caliber and distribution gives off 2 large obtuse marginals and distally continues as a posterolateral branch. There are minor irregularities but no significant disease. Left ventriculogram was not performed. FINAL IMPRESSION: This patient has a subtotal 99% mid LAD lesion with thrombus and proximal LAD is heavily calcified. Circumflex has no significant disease and RCA is dominant without significant disease. Filling pressures are mildly elevated. Left main is free of significant disease. RECOMMENDATIONS: I proceeded to perform PCI of LAD expeditiously. PCI PROCEDURE DETAILS: I used a left standard Jose M type guide catheter to cannulate the left coronary artery and a run-through wire was advanced and positioned in the diagonal. A whisper wire with a J-tip and a steep curve was used to get into the LAD and wire was kept distally. A 3.0 caliber trek balloon was used to pre-dilate the lesion. Reperfusion was accomplished in 86 minutes. I then tried to deploy a stent but I had difficulty because of proximal calcification. I then used a 3.0 caliber NC Trek balloon and dilated the proximal area. I deployed a 3.25 caliber 15 mm long Xience stent starting just before the lesion extending into the LAD and jailing the diagonal branch. Excellent angiographic result was achieved and the flow in the diagonal was preserved, but proximal to the lesion there was a significant area of narrowing noted hazy and also heavily calcified. I pre-dilated the proximal segment and then deployed an 18 mm long 3.25 caliber Xience stent and deployed this at 13-14 atmospheres. I noted that proximal to it was an area of heavy calcification and this was addressed with another 3.25 caliber 8 mm long Xience stent, which was the most proximal stent. The entire stented segment was then post dilated with a 3.5 caliber 20 mm NC Trek balloon. The proximal area was difficult to open. After considerable efforts at 15 atmospheres with a 4.0 NC Trek balloon, I was able to open the proximal segment. Excellent flow was noted. Patient was symptom free. EKG improved. The sheath was taken out and Angio- Seal device used to secure hemostasis. I gave patient a total of nearly 6500 of heparin from the time she came to the ER and ACT was 248. There was a small hematoma in the right groin and therefore did not give any additional heparin. Instead I gave 600 mg of Plavix. She was sent to the room in a stable condition and results were discussed with the patient and family. Excellent angiographic result was achieved. There was heavy calcification proximal to the lesion but at the lesion there was thrombus. Excellent angiographic result was achieved with complete resolution of chest pain, improvement in EKG remarkably, and patient was hemodynamically stable. The patient will be on dual antiplatelet therapy for 1 year without interruption. The patient was sent to the ICU. Details were discussed with the patient and family. MMAMPAROL / IJN: [id number] /
[2021-08-10 08:45] LABS: Basophils # (A) 0.1 k/uL (0-0.2); Basophils % (A) 0 %; Eosinophils % (A) 0 %; HGB 11.6 gm/dL (11.4-16.0); Lymphocytes # (A) 2.2 k/uL (1.0-4.8); Lymphocytes % (A) 18 %; MCH 31.1 pg (25.0-35.0); MCHC 32.1 g/dL (31.0-37.0); Mean Platelet Volume 8.7; Monocytes % (A) 8 %; Neutrophils # (A) 8.8 k/uL (1.3-7.7); Neutrophils % (A) 72 %; Platelet Count 256 k/uL (150-450); RBC 3.71 m/uL (3.80-5.40); RDW 12.1 % (11.5-15.5); WBC 12.3 k/uL (3.8-10.6)
--- NOTE | 2021-08-10 08:51 | P.HPIM ---
History of Present Illness This is a pleasant 80 years old female with past medical history of Heart Failure, Hyperlipidemia, Hypertension, Mitral Valve Prolapse (MVP), Rheumatoid Arthritis, hypothyroidism Presents because of chest pain, found to have STEMI and patient underwent urgent cardiac cath and already 3 stents placed in her coronary arteries as per patient (no full report) This morning she was lying in her recliner, she denies chest pain currently, no dyspnea, no other complaints. Her chest pain was 10 on admission and currently 0/10. She denies any vomiting or diarrhea, no urinary symptoms, no headache or weakness or numbness She denies smoking, alcohol or illicit drugs. She is breathing quietly. Patient hemodynamically stable, slightly tachypneic. She is saturating 93% on room air. CBC of WBC 12.9. Trace of CBC Is Unremarkable, INR, BMP and Liver Enzymes Are Unremarkable. Glucose Is Elevated at 139. TSH Is Normal. Chest x-ray: No acute cardiopulmonary process EKG showing ST elevation in the V2 to V4. Review of Systems CONSTITUTIONAL: No fever, no malaise, no fatigue. HEENT: No recent visual problems or hearing problems. Denied any sore throat. CARDIOVASCULAR: No orthopnea, PND, no palpitations, no syncope. PULMONARY: No shortness of breath, no cough, no hemoptysis. GASTROINTESTINAL: No diarrhea, no nausea, no vomiting, no abdominal pain. Normoactive bowel sounds. NEUROLOGICAL: No headaches, no weakness, no numbness. HEMATOLOGICAL: Denies any bleeding or petechiae. GENITOURINARY: Denies any burning micturition, frequency, or urgency. MUSCULOSKELETAL/RHEUMATOLOGICAL: Denies any joint pain, swelling, or any muscle pain. ENDOCRINE: Denies any polyuria or polydipsia. Past Medical History Past Medical History: Heart Failure, Hyperlipidemia, Hypertension, Mitral Valve Prolapse (MVP), Rheumatoid Arthritis (RA), Thyroid Disorder Additional Past Medical History / Comment(s): HAD A PNE VACCINE AFTER AGE 67 BUT NOT SURE OF DATE,OFFICE CLOSED AT TIME OF THIS ADMIT. History of Any Multi-Drug Resistant Organisms: None Reported Past Surgical History: Section, Orthopedic Surgery Additional Past Surgical History / Comment(s): total right knee replacement Past Anesthesia/Blood Transfusion Reactions: No Reported Reaction Additional Past Anesthesia/Blood Transfusion Reaction / Comment(s): clausterphobia Past Psychological History: No Psychological Hx Reported Smoking Status: Never smoker Past Alcohol Use History: Occasional Past Drug Use History: None Reported - Past Family History Father Additional Family Medical History / Comment(s): smoker-had problems related to that Mother Additional Family Medical History / Comment(s): smoker-problems related to that Medications and Allergies Home Medications Medication Instructions Recorded Confirmed Type Multivit-Min/FA/Lycopen/Lutein 1 tab PO DAILY 03/29/16 08/09/21 History [Centrum Silver Tablet] Omeprazole 20 mg PO DAILY 03/29/16 08/09/21 History Budesonide-Formot 160-4.5 Mcg 2 puff INHALATION RT-BID #1 inhaler 04/06/16 08/09/21 Rx [Symbicort 160-4.5 Mcg Inhaler] Digoxin [Digitek] 125 mcg PO DAILY 08/04/17 08/09/21 History Furosemide [Lasix] 20 mg PO DAILY 08/04/17 08/09/21 History Metoprolol Succinate (ER) [Toprol 75 mg PO DAILY 08/04/17 08/09/21 History XL] Potassium Chloride [K-Tab ER] 8 meq PO DAILY 08/04/17 08/09/21 History Albuterol Inhaler [Ventolin Hfa 2 puff INHALATION RT-QID PRN 08/09/21 08/09/21 History Inhaler] Alendronate Sodium [Fosamax] 70 mg PO Q7D 08/09/21 08/09/21 History Atorvastatin [Lipitor] 20 mg PO DAILY 08/09/21 08/09/21 History Calcium Carbonate [Calcium] 600 mg PO DAILY 08/09/21 08/09/21 History Cholecalciferol [Vitamin D3 (25 50 mcg PO DAILY 08/09/21 08/09/21 History Mcg = 1000 Iu)] Ipratropium-Albuterol Nebulize 3 ml INHALATION RT-BID PRN 08/09/21 08/09/21 History [Duoneb 0.5 mg-3 mg/3 ml Soln] Levothyroxine Sodium [Synthroid] 112 mcg PO DAILY 08/09/21 08/09/21 History Magnesium Oxide [Darden] 500 mg PO DAILY 08/09/21 08/09/21 History Montelukast [Singulair] 10 mg PO DAILY 08/09/21 08/09/21 History Goode-3 Acid Ethyl Esters [Lovaza] 1 gm PO QID 08/09/21 08/09/21 History Allergies Allergy/AdvReac Type Severity Reaction Status Date / Time clarithromycin [From Biaxin] Allergy Unknown Verified 08/09/21 18:56 gemifloxacin [From Factive] Allergy Unknown Verified 08/09/21 18:56 prednisone Allergy Unknown Verified 08/09/21 18:56 amoxicillin [From Augmentin] AdvReac Nausea & Verified 08/09/21 18:56 Vomiting & Diarrhea clavulanic acid AdvReac Nausea & Verified 08/09/21 18:56 [From Augmentin] Vomiting & Diarrhea Physical Exam Vitals: Vital Signs Temp Pulse Pulse Resp BP BP Pulse Ox 08/10/21 06:30 66 28 H 93 L 08/10/21 06:15 64 5 L 118/64 85 L 08/10/21 06:00 64 32 H 113/58 93 L 08/10/21 05:45 65 14 104/54 94 L 08/10/21 05:30 66 12 107/55 94 L 08/10/21 05:15 64 12 113/98 92 L 08/10/21 05:00 69 13 103/70 94 L 08/10/21 04:45 66 14 104/77 94 L 08/10/21 04:30 12 118/50 94 L 08/10/21 04:15 64 10 L 108/63 94 L 08/10/21 04:00 64 73 9 L 112/75 93 L 08/10/21 03:45 65 11 L 94/59 95 08/10/21 03:30 66 20 102/60 92 L 08/10/21 03:15 65 19 106/58 92 L 08/10/21 03:00 64 24 108/60 92 L 08/10/21 02:45 67 17 132/68 91 L 08/10/21 02:30 70 19 114/59 95 08/10/21 02:15 68 5 L 119/61 92 L 08/10/21 02:00 68 14 127/61 93 L 08/10/21 01:45 67 0 L 129/62 93 L 08/10/21 01:30 68 0 L 134/71 92 L 08/10/21 01:15 70 13 122/62 94 L 08/10/21 01:00 68 4 L 118/60 93 L 06/02/22 00:45 67 16 103/91 97 08/10/21 00:30 64 10 L 64/54 94 L 08/10/21 00:15 66 11 L 116/73 94 L 08/10/21 00:00 98 F 64 73 20 120/66 94 L 08/09/21 23:45 65 10 L 88/62 94 L 08/09/21 23:30 67 11 L 130/71 95 08/09/21 23:15 69 6 L 115/54 92 L 08/09/21 23:10 67 5 L 115/54 95 08/09/21 23:00 65 4 L 128/66 95 08/09/21 22:45 70 18 118/103 95 08/09/21 22:33 73 16 133/75 08/09/21 22:30 75 15 133/95 94 L 08/09/21 22:15 73 21 135/73 95 08/09/21 22:03 80 14 135/73 08/09/21 22:00 76 17 111/72 94 L 08/09/21 21:48 84 14 111/72 08/09/21 21:45 85 11 L 119/78 08/09/21 21:33 97.7 F 81 15 119/78 08/09/21 21:30 83 15 133/82 94 L 08/09/21 21:23 94 L 08/09/21 19:10 71 18 184/89 98 08/09/21 18:58 68 18 181/74 98 08/09/21 18:53 74 18 178/88 98 08/09/21 18:47 63 18 184/82 97 08/09/21 18:33 97.4 F L 69 20 183/68 97 Intake and Output 08/09/21 08/09/21 08/10/21 14:59 22:59 06:59 Intake Total 475 600 Output Total 100 300 Balance 375 300 Intake: IV 475 600 Sodium Chloride 0.9% 1, 75 600 000 ml @ 75 mls/hr IV . [id number] ONE Rx#:[id number] Output: Urine 100 300 Other: Voiding Method External Catheter # Voids 1 1 Weight 56.699 kg 61.8 kg GENERAL: The patient is alert and oriented x3, not in any acute distress. Well developed, well nourished. HEENT: Pupils are round and equally reacting to light. EOMI. No scleral icterus. No conjunctival pallor. Normocephalic, atraumatic. No pharyngeal erythema. No thyromegaly. CARDIOVASCULAR: S1 and S2 present. No murmurs, rubs, or gallops. PULMONARY: Chest is clear to auscultation, no wheezing or crackles. ABDOMEN: Soft, nontender, nondistended, normoactive bowel sounds. No palpable o rganomegaly. MUSCULOSKELETAL: No joint swelling or deformity. EXTREMITIES: No cyanosis, clubbing, or pedal edema. NEUROLOGICAL: Gross neurological examination did not reveal any focal deficits. SKIN: No rashes. No petechiae Results CBC & Chem 7: 08/10/21 06:25 08/10/21 06:25 Labs: Abnormal Lab Results - Last 24 Hours (Table) 08/09/21 08/09/21 08/09/21 Range/Units 13:00 18:56 18:56 WBC 12.9 H (3.8-10.6) k/uL Neutrophils # 8.2 H (1.3-7.7) k/uL Sodium 136 L (137-145) mmol/L BUN 18 H 21 H (7-17) mg/dL Glucose 145 H 232 H (74-99) mg/dL POC Glucose (mg/dL) (75-99) mg/dL AST 79 H (14-36) U/L Troponin I (0.000-0.034) ng/mL Free T4 2.35 H (0.78-2.19) ng/dL 08/09/21 08/09/21 Range/Units 21:26 21:44 WBC (3.8-10.6) k/uL Neutrophils # (1.3-7.7) k/uL Sodium (137-145) mmol/L BUN (7-17) mg/dL Glucose (74-99) mg/dL POC Glucose (mg/dL) 139 H (75-99) mg/dL AST (14-36) U/L Troponin I 13.500 H* (0.000-0.034) ng/mL Free T4 (0.78-2.19) ng/dL Thrombosis Risk Factor Assmnt - Choose All That Apply Any of the Below Risk Factors Present?: Yes Each Factor Represents 1 point: Acute AL Other Risk Factors: Yes Each Risk Factor Represents 2 Points: Patient confined to bed Each Risk Factor Represents 3 Points: Age 75 years or older Other congenital or acquired thrombophilia - If yes, enter type in comment: No Thrombosis Risk Factor Assessment Total Risk Factor Score: 6 Thrombosis Risk Factor Assessment Level: High Risk Assessment and Plan Assessment: Chest pain suspicious for acute anterior STEMI, status post and the cath and stent placement Hyperlipidemia Hypertension History of mitral valve prolapse History of rheumatoid arthritis History of chronic heart failure, no acute exacerbation Hypothyroidism Plan: This is a pleasant 80 years old female who presents with STEMI status post cardiac cath Continue with aspirin and Plavix Cardiology consult Continue with metoprolol and statin Labs and medication were reviewed.. Continue same treatment. Continue with symptomatic treatment. Resume home medication. Monitor lytes and vitals. DVT and GI prophylaxis. Further recommendations depends on the clinical course of the patient DVT prophylaxis: Subcutaneous heparin GI Prophylaxis: Pepcid
[2021-08-10] MEDS ORDERED: FAMOTIDINE 20 MG/2 ML VIAL IV SCH (09:00)
[2021-08-10] MEDS: METOPROLOL TARTRATE 12.5 MG TAB PO SCH ×2 (09:28→20:00)
[2021-08-10] MEDS: CLOPIDOGREL 75 MG TAB PO SCH (09:29)
[2021-08-10] MEDS: HEPARIN SODIUM,PORCINE/PF 5,000 UNIT/0.5 ML SYRINGE SQ SCH ×2 (09:29→20:00)
[2021-08-10] MEDS: lisinopriL 10 MG TAB PO SCH (09:29)
[2021-08-10] MEDS: ASPIRIN 81 MG PO SCH (09:29)
[2021-08-10 09:45] LABS: LDL Cholesterol,Calculated 77.4 mg/dL (0.0-131.0); VLDL Calculation 14.04 mg/dL (5.00-40.00)
--- NOTE | 2021-08-10 10:13 | CA ---
Transthoracic Echo Report Name: Ulises Grande Age: 80 Gender: F : 1940 Exam Date: 08/10/2021 07:31 Exam Location: [facility] Ht (in): 62 Wt (lb): 125 Ordering Physician: Aniya Schaefer MD ([id number]) Attending/Referring Phys: Saddle Maker Pita Bennett RDCS Procedure CPT: Indications: STEMI ANT Assess LV FX Cardiac Hx: Technical Quality: Fair Contrast 1: Total Dose (mL): Contrast 2: Total Dose (mL): MEASUREMENTS (Male / Female) Normal Values 2D ECHO LV Diastolic Diameter PLAX 4.1 cm 4.2 - 5.9 / 3.9 - 5.3 cm LV Systolic Diameter PLAX 2.3 cm IVS Diastolic Thickness 1.3 cm 0.6 - 1.0 / 0.6 - 0.9 cm LVPW Diastolic Thickness 1.6 cm 0.6 - 1.0 / 0.6 - 0.9 cm LV Relative Wall Thickness 0.7 RV Internal Dim ED PLAX 2.2 cm LA Volume 74.7 cm??? 18 - 58 / 22 - 52 cm??? M-MODE Aortic Root Diameter MM 2.9 cm AV Cusp Separation MM 1.6 cm DOPPLER AV Peak Velocity 266.2 cm/s AV Peak Gradient 28.3 mmHg AV Mean Velocity 189.2 cm/s AV Mean Gradient 16.6 mmHg AV Velocity Time Integral 56.5 cm AI Peak Velocity 408.5 cm/s AI Peak Gradient 66.7 mmHg AI Pressure Half Time 445.1 ms LVOT Peak Velocity 144.9 cm/s LVOT Peak Gradient 8.4 mmHg MV Peak Velocity 243.2 cm/s MV Peak Gradient 23.7 mmHg MV Mean Velocity 178.3 cm/s MV Mean Gradient 13.4 mmHg MV Velocity Time Integral 92.2 cm MV Area PHT 1.5 cm??? Mitral E Point Velocity 189.8 cm/s Mitral A Point Velocity 196.8 cm/s Mitral E to A Ratio 1.0 MV Deceleration Time 512.3 ms MV E' Velocity 3.2 cm/s Mitral E to MV E' Ratio 59.3 TR Peak Velocity 346.0 cm/s TR Peak Gradient 47.9 mmHg Right Ventricular Systolic Press 51.5 mmHg FINDINGS Left Ventricle Mildly increased left ventricular wall thickness. Apical septal, apex, inferior apex is hypokinetic. Left ventricular ejection fraction is estimated at 45-50 %. Right Ventricle Normal right ventricular size. Moderate to severe pulmonary hypertension. Right Atrium Normal right atrial size. Left Atrium Severely increased left atrial volume. Mitral Valve Severe mitral annular calcification. Mild to moderate mitral regurgitation. [id number]-lojchq mitral stenosis. Aortic Valve Trileaflet aortic valve. Mild aortic stenosis with a peak gradient of 28 mmHg and a mean gradient of 16 mmHg. [id number]-rw-jruenctv aortic regurgitation. Tricuspid Valve Structurally normal tricuspid valve. Moderate tricuspid regurgitation. Pulmonic Valve Structurally normal pulmonic valve. Trace pulmonic regurgitation. Pericardium No pericardial effusion. Aorta Normal size aortic root and proximal ascending aorta. CONCLUSIONS Mild LVH Left ventricular ejection fraction 45-50% with apical septum, apex and inferior apex hypokinesis Moderate to severe pulmonary hypertension with RVSP 58 Severely dilated left atrium Severe mitral annular calcification Mild to moderate mitral regurgitation Mitral valve area 1.5 cm??? by pressure half time however more significant by mean gradient Moderate to severe mitral stenosis with a mean gradient of 14 mmHg at a heart rate of 79. Consider WILLIAM to further assess severity of mitral stenosis if clinically indicated. Mild to moderate aortic regurgitation Mild aortic stenosis with mean gradient 16 mmHg Moderate tricuspid regurgitation No pericardial effusion Previewed by: Dr. Kaleb Jain DO (Electronically Signed) Final Date: 10 August 2021 10:12
[2021-08-10 10:34] VITALS: BMI 24.9
--- NOTE | 2021-08-10 14:32 | PN ---
PROGRESS NOTE Mrs. Mchugh presented with acute anterior ST-elevation MT yesterday. I performed stenting of LAD, a very heavily calcified vessel, with excellent result. She is doing well. Her groin site is clean and dry with a good pulse. Vitals are stable. No JVD. S1- S2 heard normally. Short systolic murmur at the base is audible, unchanged. Lungs are clear. Abdomen and lower extremity exam unchanged. Plan is to continue current medications, increase activity. She has an echocardiogram performed. We will see how it is. We will send her to telemetry. Possible discharge in the next 36 hours. Discussed my thoughts in detail with the patient. Will increase activity and continue current medications, including dual antiplatelet therapy. Her echocardiogram was performed earlier today and revealed an ejection fraction of 45% to 50% with apical septal and inferoapical hypokinesia with moderate to severe pulmonary hypertension and mild aortic stenosis. Will continue current medications, increase activity, and move her to telemetry. MMAMPAROL / IJN: [id number] /
[2021-08-10] MEDS ORDERED: ALBUTEROL NEBULIZED 2.5 MG/3 ML INHALATION PRN (19:54)
[2021-08-10] MEDS ORDERED: IPRATROPIUM-ALBUTEROL 3 ML NEB INHALATION PRN (19:54)
[2021-08-10] MEDS: ZOLPIDEM 5 MG TAB PO PRN (20:00)
[2021-08-10] MEDS: ATORVASTATIN 80 MG TAB PO SCH (20:00)
[2021-08-10] MEDS: SYMBICORT 160-4.5 MCG INHALER INHALATION SCH (20:09)
[2021-08-11] MEDS ORDERED: LEVOTHYROXINE 112 MCG TAB PO SCH (06:30)
[2021-08-11] MEDS: SYMBICORT 160-4.5 MCG INHALER INHALATION SCH (08:05)
[2021-08-11] MEDS ORDERED: FAMOTIDINE 20 MG/2 ML VIAL IV SCH (09:00)
[2021-08-11] MEDS: ASPIRIN 81 MG PO SCH (09:45)
[2021-08-11] MEDS: CLOPIDOGREL 75 MG TAB PO SCH (09:45)
[2021-08-11] MEDS: lisinopriL 10 MG TAB PO SCH (09:45)
[2021-08-11] MEDS: METOPROLOL TARTRATE 12.5 MG TAB PO SCH (09:45)
[2021-08-11] MEDS: HEPARIN SODIUM,PORCINE/PF 5,000 UNIT/0.5 ML SYRINGE SQ SCH (09:45)
[2021-08-11 10:59] LABS: Basophils % (A) 0 %; Eosinophils % (A) 0 %; HCT 38.4 % (34.0-46.0); HGB 11.7 gm/dL (11.4-16.0); Lymphocytes # (A) 1.6 k/uL (1.0-4.8); Lymphocytes % (A) 16 %; MCH 30.3 pg (25.0-35.0); MCHC 30.4 g/dL (31.0-37.0); MCV 99.5 fL (80.0-100.0); Mean Platelet Volume 7.6; Monocytes # (A) 0.9 k/uL (0-1.0); Monocytes % (A) 9 %; Neutrophils # (A) 7.2 k/uL (1.3-7.7); Neutrophils % (A) 73 %; Platelet Count 255 k/uL (150-450); RBC 3.86 m/uL (3.80-5.40); RDW 12.2 % (11.5-15.5); WBC 9.9 k/uL (3.8-10.6)
[2021-08-11 16:23] VITALS: BP 104/53; PULSE 78; RESP 15; TEMP 98.1
--- NOTE | 2021-08-11 16:56 | PN ---
PROGRESS NOTE Mrs. Grande underwent stenting of LAD performed by me day before yesterday. She is doing well, has no chest pain or shortness of breath. Ejection fraction is 45% to 50% with wall motion abnormality and pulmonary hypertension. She has mild aortic stenosis and also some calcific mitral valve narrowing with pulmonary hypertension. She is doing well overall. No chest pain. Ambulating without symptoms. Vitals are stable. JVD 1 cm. S1-S2 heard normally. Short systolic murmur at the base is audible. Lungs are clear. Abdomen is soft, nontender. Right groin is clean and dry with a good pulse. Patient will be discharged later on today and she will see Dr. Oviedo in one week. Advised to continue current medications, including dual antiplatelet therapy. MMODL / IJN: [id number] /
--- NOTE | 2021-08-11 21:13 | P.DS ---
Providers Date of admission: 08/09/21 19:02 Attending physician: Jaya Chavarria Consults: 08/09/21 19:02 Consult Physician Urgent Consulting Provider: Cardiology [place] Consult Reason/Comments: STEMI Do you want consulting provider notified?: Yes 08/09/21 21:18 Consult Physician Routine Consulting Provider: Cardiology Francisco Consult Reason/Comments: Post Interventional patient Do you want consulting provider notified?: Already Contacted Primary care physician: Paul Bonilla [facility] Course: Anterior STEMI status post PCI to LAD Ischemic cardiomyopathy with ejection fraction 45-50%, mild Moderate stenosis, mitral regurgitation and tricuspid regurgitation, symptomatic. Follow-up as an outpatient with educational psychology professor Hyperlipidemia Hypertension History of mitral valve prolapse History of rheumatoid arthritis History of chronic heart failure, no acute exacerbation Hypothyroidism Hospital course: This is a pleasant 80 years old female with past medical history of Heart Failure, Hyperlipidemia, Hypertension, Mitral Valve Prolapse (MVP), Rheumatoid Arthritis, hypothyroidism Presents because of chest pain, found to have STEMI and patient underwent urgent cardiac cath and already stents placed in her coronary arteries Importance of adherence to aspirin and Plavix are explained to the patient extensively Hemoglobin A1c is 6.2% On the day of discharge patient denies chest pain or dyspnea, no abdominal pain, no change in urine or bowel habits. No fever Patient was cleared for discharge by educational psychology professor. Problems and management plan were discussed with the patient and he verbalized understanding and acceptance Patient was found stable and can be discharged home however he needs follow-up as an outpatient. Patient was instructed to follow up with PCP Dr. Bonilla within one week and patient agrees Patient was instructed to follow up with educational psychology professor Dr. Oviedo in one week and she agrees Physical exam Gen: patient is a AAOx3, no distress CVS: S1-S2, RRR, no murmur Lungs: B/L CTA, no wheezing Abdomen: soft, no distention, no tenderness, positive bowel sounds Extremity: no leg edema or induration Time spent more than 35 minutes Plan - Discharge Summary Discharge Rx Participant: No New Discharge Prescriptions: New Aspirin 81 mg PO DAILY #30 tab Nitroglycerin Sl Tabs [Nitrostat] 0.4 mg SUBLINGUAL Q5M PRN #14 tab PRN Reason: Chest Pain Clopidogrel [Plavix] 75 mg PO DAILY #30 tab Atorvastatin [Lipitor] 80 mg PO HS #30 tab Metoprolol Tartrate [Lopressor] 12.5 mg PO BID #60 tab lisinopriL [Zestril] 10 mg PO DAILY #30 tab Continue Omeprazole 20 mg PO DAILY Multivit-Min/FA/Lycopen/Lutein [Centrum Silver Tablet] 1 tab PO DAILY Budesonide-Formot 160-4.5 Mcg [Symbicort 160-4.5 Mcg Inhaler] 2 puff INHALATION RT-BID #1 inhaler Ipratropium-Albuterol Nebulize [Duoneb 0.5 mg-3 mg/3 ml Soln] 3 ml INHALATION RT-BID PRN PRN Reason: Shortness Of Breath [place]-3 Acid Ethyl Esters [Lovaza] 1 gm PO QID Magnesium Oxide [Darden] 500 mg PO DAILY Levothyroxine Sodium [Synthroid] 112 mcg PO DAILY Cholecalciferol [Vitamin D3 (25 Mcg = 1000 Iu)] 50 mcg PO DAILY Montelukast [Singulair] 10 mg PO DAILY Albuterol Inhaler [Ventolin Hfa Inhaler] 2 puff INHALATION RT-QID PRN PRN Reason: Shortness Of Breath Alendronate Sodium [Fosamax] 70 mg PO Q7D Discontinued Metoprolol Succinate (ER) [Toprol XL] 75 mg PO DAILY Digoxin [Digitek] 125 mcg PO DAILY Potassium Chloride [K-Tab ER] 8 meq PO DAILY Furosemide [Lasix] 20 mg PO DAILY Calcium Carbonate [Calcium] 600 mg PO DAILY Atorvastatin [Lipitor] 20 mg PO DAILY Discharge Medication List Multivit-Min/FA/Lycopen/Lutein [Centrum Silver Tablet] 1 tab PO DAILY 03/29/16 [History] Omeprazole 20 mg PO DAILY 03/29/16 [History] Budesonide-Formot 160-4.5 Mcg [Symbicort 160-4.5 Mcg Inhaler] 2 puff INHALATION RT-BID #1 inhaler 04/06/16 [Rx] Albuterol Inhaler [Ventolin Hfa Inhaler] 2 puff INHALATION RT-QID PRN 08/09/21 [History] Alendronate Sodium [Fosamax] 70 mg PO Q7D 08/09/21 [History] Cholecalciferol [Vitamin D3 (25 Mcg = 1000 Iu)] 50 mcg PO DAILY 08/09/21 [History] Ipratropium-Albuterol Nebulize [Duoneb 0.5 mg-3 mg/3 ml Soln] 3 ml INHALATION RT-BID PRN 08/09/21 [History] Levothyroxine Sodium [Synthroid] 112 mcg PO DAILY 08/09/21 [History] Magnesium Oxide [Darden] 500 mg PO DAILY 08/09/21 [History] Montelukast [Singulair] 10 mg PO DAILY 08/09/21 [History] [place]-3 Acid Ethyl Esters [Lovaza] 1 gm PO QID 08/09/21 [History] Aspirin 81 mg PO DAILY #30 tab 08/11/21 [Rx] Atorvastatin [Lipitor] 80 mg PO HS #30 tab 08/11/21 [Rx] Clopidogrel [Plavix] 75 mg PO DAILY #30 tab 08/11/21 [Rx] Metoprolol Tartrate [Lopressor] 12.5 mg PO BID #60 tab 08/11/21 [Rx] Nitroglycerin Sl Tabs [Nitrostat] 0.4 mg SUBLINGUAL Q5M PRN #14 tab 08/11/21 [Rx] lisinopriL [Zestril] 10 mg PO DAILY #30 tab 08/11/21 [Rx] Follow up Appointment(s)/Referral(s): Melvin Oviedo MD [STAFF PHYSICIAN] - 08/18/21 3:30 pm (Patient will be seeing Dr Sandra) Paul Bonilla DO [Primary Care Provider] - 08/15/21 1:30 pm ( Patient will be seeing Nurse Practitioner Rafi) Patient Instructions/Handouts: Heart Attack (DC), Heart Healthy Diet (DC), Hypertension (DC), Hyperlipidemia (DC) Activity/Diet/Wound Care/Special Instructions: Heart healthy diet activity is restricted until you see your doctor Discharge Disposition: HOME SELF-CARE
--- NOTE | 2021-08-16 06:38 | CDI ---
Documentation Clarification Form Date: 08/16/21 From: Sarahi Gomes Admit Date: 08/09/2021 07:02:00 PM Patient Name: Ulises Grande Visit Number: [id number] Discharge Date: 08/11/2021 05:58:00 PM ATTENTION: The Clinical Documentation Specialists (CDI) and [facility] Coding Staff appreciate your assistance in clarifying documentation. Please respond to the clarification below the line at the bottom and electronically sign. The CDI & [facility] Coding staff will review the response and follow-up if needed. Please note: Queries are made part of the Legal Health Record. If you have any questions, please contact the author of this message via ITS. Dr. Aniya Schaefer, Your patient has the documented diagnosis of chronic heart failure, no acute exacerbation in the H&P. Additional information regarding the type of CHF is requested. History/Risk Factors: Pulmonary HTN, HTN, CAD with calcification, involvement of all 3 valves, rheumatoid arthritis, ischemic cardiomyopathy, hypothyroidism, hypercholesterolemia, HLD, bronchial asthma, prediabetic Clinical Indicators: Presents with STEMI of anterior wall and ischemic cardiomyopathy. Has chronic heart failure. VS/Pulse OX: T 97.4, P 69, R 20, BP 183/60, O2 97 BNP: None Echocardiogram Results: Left ventricular ejection fraction is estimated at 45- 50 Chest X Ray: No acute cardiopulmonary disease/process. Treatment: Lasix 20 mg PO daily, Toprol XL 75 mg PO, Lopressor 12.5 mg PO BID In your professional opinion, can you please clarify the type of CHF if known? [ ] Chronic Systolic Heart Failure (reduced EF) [ ] Chronic Diastolic Heart Failure (preserved EF) [ ] Chronic Systolic & Diastolic Heart Failure [ ] Other, please specify_Acute on chronic systolic Heart Failure [ ] Unable to determine MTDD
== END 2021-08-11 17:58 | disposition home or self-care (01) | DRG 246 ==
LOC: EC 18:30 → 2SICU 19:02
PROVIDERS: ADMIT Hospitalist; ATTEND Hospitalist
PROC: 4A023N7 Measurement of Cardiac Sampling and Pressure, Left Heart, Percutaneous Approach (ICD-10-PCS; principal; 2021-08-09 19:24)
PROC: B2111ZZ Fluoroscopy of Multiple Coronary Arteries using Low Osmolar Contrast (ICD-10-PCS; principal; 2021-08-09 19:24)
PROC: 027036Z Dilation of Coronary Artery, One Artery with Three Drug-eluting Intraluminal Devices, Percutaneous Approach (ICD-10-PCS; principal; 2021-08-09 19:24)
DX: I21.09 ST elevation (STEMI) myocardial infarction involving other coronary artery of anterior wall (principal); I50.23 Acute on chronic systolic (congestive) heart failure; I27.20 Pulmonary hypertension, unspecified; I11.0 Hypertensive heart disease with heart failure; I25.119 Atherosclerotic heart disease of native coronary artery with unspecified angina pectoris; M06.9 Rheumatoid arthritis, unspecified; I25.84 Coronary atherosclerosis due to calcified coronary lesion; I08.3 Combined rheumatic disorders of mitral, aortic and tricuspid valves; I25.5 Ischemic cardiomyopathy; E03.9 Hypothyroidism, unspecified; E78.00 Pure hypercholesterolemia, unspecified; E78.5 Hyperlipidemia, unspecified; J45.909 Unspecified asthma, uncomplicated; R73.03 Prediabetes; Z79.83 Long term (current) use of bisphosphonates; Z79.51 Long term (current) use of inhaled steroids; Z79.890 Hormone replacement therapy; Z79.899 Other long term (current) drug therapy; Z96.651 Presence of right artificial knee joint; Z98.891 History of uterine scar from previous surgery; Z88.1 Allergy status to other antibiotic agents; Z88.0 Allergy status to penicillin; Z88.8 Allergy status to other drugs, medicaments and biological substances; Z82.49 Family history of ischemic heart disease and other diseases of the circulatory system; Z81.2 Family history of tobacco abuse and dependence
CPT/HCPCS: 36415; 71045; 80048; 80053; 80061; 82306; 83036; 83690; 83735; 84439; 84443; 84484; 85025; 85610; 85730; 93005; 93306; 93458; 94640; 96374; 99285

== ENCOUNTER 2021-10-06 19:20 | Inpatient (IN) | payer MEDICARE, BC ==
[2021-10-06 20:09] LABS: Basophils % (A) 1 %; Eosinophils # (A) 0.1 k/uL (0-0.7); Eosinophils % (A) 1 %; HCT 36.8 % (34.0-46.0); HGB 11.9 gm/dL (11.4-16.0); Lymphocytes # (A) 1.8 k/uL (1.0-4.8); Lymphocytes % (A) 30 %; MCH 31.4 pg (25.0-35.0); MCHC 32.2 g/dL (31.0-37.0); MCV 97.2 fL (80.0-100.0); Mean Platelet Volume 7.7; Monocytes # (A) 0.5 k/uL (0-1.0); Monocytes % (A) 8 %; Neutrophils # (A) 3.5 k/uL (1.3-7.7); Neutrophils % (A) 59 %; Platelet Count 158 k/uL (150-450); RBC 3.79 m/uL (3.80-5.40); RDW 13.5 % (11.5-15.5); WBC 5.9 k/uL (3.8-10.6)
[2021-10-06 20:20] LABS: Albumin 4.1 g/dL (3.5-5.0); Calcium 9.2 mg/dL (8.4-10.2); Magnesium 1.9 mg/dL (1.6-2.3); Potassium 4.4 mmol/L (3.5-5.1); Total Bilirubin 0.6 mg/dL (0.2-1.3); Total Protein 7.4 g/dL (6.3-8.2)
[2021-10-06 20:21] LABS: Partial Thromboplastin Time 23.9 sec (22.0-30.0); Prothrombin Time 10.8 sec (9.0-12.0)
--- NOTE | 2021-10-06 20:42 | XR ---
EXAMINATION TYPE: XR chest 2V DATE OF EXAM: 10/06/2021 8:28 PM COMPARISON: Chest radiographs from 08/04/2017 TECHNIQUE: XR chest 2V Frontal view of the chest. CLINICAL INDICATION:Female, 81 years old with history of Chest Pain; FINDINGS: Lungs/Pleura: There is no evidence of pleural effusion, focal consolidation, or pneumothorax. Basila r atelectasis present. Pulmonary vascularity: Mild pulmonary vascular congestion. Heart/mediastinum: Cardiomediastinal silhouette is enlarged and stable. Musculoskeletal: No acute osseous pathology. IMPRESSION: Cardiomegaly with pulmonary vascular congestion correlate with serum BNP for congestive heart failure .
[2021-10-06] MEDS ORDERED: NITROGLYCERIN OINT 1 INCH/GM PACKET TOPICAL STA (21:11)
[2021-10-06] MEDS ORDERED: ALPRAZolam 0.25 MG TAB PO STA (21:12)
[2021-10-06] MEDS ORDERED: ASPIRIN 81 MG PO STA (21:12)
[2021-10-06] MEDS ORDERED: FUROSEMIDE 10 MG/ML 4 ML VIAL IV STA (21:12)
[2021-10-06] MEDS ORDERED: NALOXONE 0.4 MG/ML 1 ML VIAL IV PRN (21:13)
--- NOTE | 2021-10-06 21:13 | ED ---
Chest Pain HPI - General Chief Complaint: Chest Pain Stated Complaint: chest pain Source: patient, family Mode of arrival: ambulatory Limitations: no limitations - History of Present Illness Initial Comments: 81-year-old female with past history of coronary artery disease, status post STEMI with intervention last month who presents to the emergency department today with chest pain. States that she was at home watching TV when she had sudden onset of substernal chest pain. States it radiated up to her neck. She had associated shortness of breath. Has been taking her Plavix as directed without any missed doses. No history of DVT or PE. No calf pain or swelling. She did take 2 nitro's and states that it brought her pain from a 10 to a 5. No fevers, chills or cough. He follows with Dr. pickett. No other alleviating, precipitating or modifying factors - Related Data Home Medications Medication Instructions Recorded Confirmed Multivit-Min/FA/Lycopen/Lutein 1 tab PO DAILY 03/29/16 08/09/21 [Centrum Silver Tablet] Omeprazole 20 mg PO DAILY 03/29/16 08/09/21 Albuterol Inhaler [Ventolin Hfa 2 puff INHALATION RT-QID PRN 08/09/21 08/09/21 Inhaler] Alendronate Sodium [Fosamax] 70 mg PO Q7D 08/09/21 08/09/21 Cholecalciferol [Vitamin D3 (25 50 mcg PO DAILY 08/09/21 08/09/21 Mcg = 1000 Iu)] Ipratropium-Albuterol Nebulize 3 ml INHALATION RT-BID PRN 08/09/21 08/09/21 [Duoneb 0.5 mg-3 mg/3 ml Soln] Levothyroxine Sodium [Synthroid] 112 mcg PO DAILY 08/09/21 08/09/21 Magnesium Oxide [Darden] 500 mg PO DAILY 08/09/21 08/09/21 Montelukast [Singulair] 10 mg PO DAILY 08/09/21 08/09/21 [place]-3 Acid Ethyl Esters [Lovaza] 1 gm PO QID 08/09/21 08/09/21 Previous Rx's Medication Instructions Recorded Budesonide-Formot 160-4.5 Mcg 2 puff INHALATION RT-BID #1 inhaler 04/06/16 [Symbicort 160-4.5 Mcg Inhaler] Aspirin 81 mg PO DAILY #30 tab 08/11/21 Atorvastatin [Lipitor] 80 mg PO HS #30 tab 08/11/21 Clopidogrel [Plavix] 75 mg PO DAILY #30 tab 08/11/21 Metoprolol Tartrate [Lopressor] 12.5 mg PO BID #60 tab 08/11/21 Nitroglycerin Sl Tabs [Nitrostat] 0.4 mg SUBLINGUAL Q5M PRN #14 tab 08/11/21 lisinopriL [Zestril] 10 mg PO DAILY #30 tab 08/11/21 Allergies Allergy/AdvReac Type Severity Reaction Status Date / Time clarithromycin [From Biaxin] Allergy Unknown Verified 10/06/21 19:28 gemifloxacin [From Factive] Allergy Unknown Verified 10/06/21 19:28 prednisone Allergy Unknown Verified 10/06/21 19:28 amoxicillin [From Augmentin] AdvReac Nausea & Verified 10/06/21 19:28 Vomiting & Diarrhea clavulanic acid AdvReac Nausea & Verified 10/06/21 19:28 [From Augmentin] Vomiting & Diarrhea Review of Systems ROS Statement: Those systems with pertinent positive or pertinent negative responses have been documented in the HPI. ROS Other: All systems not noted in ROS Statement are negative. EKG Findings - EKG Comments: EKG Findings:: EKG demonstrates a sinus rhythm with a rate of 88. ND interval 176. QRS 78. QTC 373. No acute ST segment elevations or depressions Past Medical History Past Medical History: Heart Failure, Hyperlipidemia, Hypertension, Mitral Valve Prolapse (MVP), Rheumatoid Arthritis (RA), Thyroid Disorder Additional Past Medical History / Comment(s): HAD A PNE VACCINE AFTER AGE 67 BUT NOT SURE OF DATE,OFFICE CLOSED AT TIME OF THIS ADMIT. History of Any Multi-Drug Resistant Organisms: None Reported Past Surgical History: Section, Orthopedic Surgery Additional Past Surgical History / Comment(s): total right knee replacement Past Anesthesia/Blood Transfusion Reactions: No Reported Reaction Additional Past Anesthesia/Blood Transfusion Reaction / Comment(s): clausterphobia Past Psychological History: No Psychological Hx Reported Smoking Status: Never smoker Past Alcohol Use History: Occasional Past Drug Use History: None Reported - Past Family History Father Additional Family Medical History / Comment(s): smoker-had problems related to that Mother Additional Family Medical History / Comment(s): smoker-problems related to that General Exam Limitations: no limitations Course Vital Signs 10/06/21 10/06/21 19:24 21:34 Temperature 97.9 F Pulse Rate 99 90 Respiratory 20 16 Rate Blood Pressure 146/69 O2 Sat by Pulse 97 96 Oximetry Chest Pain MDM - MDM Upon arrival patient was placed into room 4. A thorough history and physical exam was performed. Patient given an aspirin and Nitropaste. Laboratory studies are conducted and reviewed. Troponin 0.025. Recommended admission in order trend her troponins which the patient did agree to. Chest x-ray demonstrates some vascular congestion and therefore I did give her dose of Lasix. Spoke with Dr. Campbell who agreed to admit the patient. Disposition Clinical Impression: CHF (congestive heart failure), Chest pain Disposition: ADMITTED IP TO THIS [facility] Condition: Stable Is patient prescribed a controlled substance at d/c from ED?: No Time of Disposition: 21:13 Decision to Admit Reason: Admit from EC Decision Date: 10/06/21 Decision Time: 21:13
[2021-10-07] MEDS ORDERED: HEPARIN SODIUM 1,000 UN/ML (10ML VL) IV ONE ×2 (01:55→16:16)
[2021-10-07] MEDS ORDERED: HEPARIN SODIUM 1,000 UN/ML (10ML VL) IV PRN (01:55)
[2021-10-07] MEDS: HEPARIN SOD,PORK IN 0.45% NACL 25,000 UNIT in 0.45% NACL 1 250ML.BAG IV SCH ×2 (02:34→22:03)
[2021-10-07 03:32] LABS: Basophils % (A) 0 %; Eosinophils % (A) 0 %; HCT 43.3 % (34.0-46.0); HGB 13.7 gm/dL (11.4-16.0); Lymphocytes # (A) 1.9 k/uL (1.0-4.8); Lymphocytes % (A) 23 %; MCH 31.1 pg (25.0-35.0); MCHC 31.7 g/dL (31.0-37.0); MCV 97.9 fL (80.0-100.0); Mean Platelet Volume 7.5; Monocytes # (A) 0.7 k/uL (0-1.0); Monocytes % (A) 8 %; Neutrophils # (A) 5.5 k/uL (1.3-7.7); Neutrophils % (A) 66 %; Platelet Count 178 k/uL (150-450); RBC 4.42 m/uL (3.80-5.40); RDW 13.4 % (11.5-15.5); WBC 8.3 k/uL (3.8-10.6)
--- NOTE | 2021-10-07 03:43 | P.HPIM ---
History of Present Illness H&P Date: 10/06/21 The patient is a 81-year-old female with a PMH of hypertension, hyperlipidemia, mitral valve prolapse, systolic CHF, CAD status post STEMI in 08/2021 status post PCI to LAD presents to the emergency room with complaints of chest discomfort. The patient reports that she was at home resting comfortably when she suddenly developed a pressure-like substernal chest discomfort, 10 out of 10, with associated palpitations, radiating up into the head. She reports that D Gonzalez improved her pain, and at time of interview it had improved to a 3 out of 10. She denied extremity shortness of breath, nausea, diaphoresis, dizziness, or vomiting. Reports the pain is somewhat similar to when she had her TN last month. Denied experiencing orthopnea, PND, lower extremity edema, fever, chills, cough, abdominal pain, diarrhea. EKG in the emergency room reveals sinus rhythm at 88 bpm with left axis deviation. Chest x-ray revealed cardiomegaly with pulmonary vascular congestion. Laboratory evaluation was remarkable for troponin of 0.025 and proBNP 79. Review of systems: Pertinent positives and negatives as discussed in HPI, a complete review of systems was performed and all other systems are negative. Physical examination: General: non toxic, no distress, appears at stated age, normal weight Derm: no unusual rashes/lesions, warm Head: atraumatic, normocephalic, symmetric Eyes: EOMI, no lid lag, anicteric sclera, pupils equal round reactive to light ENT: Nose and ears atraumatic Neck: No cervical lymphadenopathy, trachea midline, supple Mouth: no lip lesion, mucus membranes moist Cardiovascular: S1S2 reg, no murmur, positive dorsalis pedis pulse bilateral, no edema Lungs: CTA bilateral, no rhonchi, no rales, no accessory muscle use Abdominal: soft, nontender to palpation, no guarding Ext: muscle strength 5 out of 5 in all 4 extremities grossly, no gross muscle atrophy, no contractures, Neuro: CN II-XI grossly intact, no gross focal neuro deficits Psych: Alert, oriented, appropriate affect Assessment/plan Chest pain, rule out ACS -Continue with aspirin, statin -Cardiac monitoring -Cardiology consulted Chronic conditions: Hypertension, hyperlipidemia, asthma -Continue home meds DVT prophylaxis -Heparin subcu The patient is admitted with an anticipated less than 2 midnight stay for evaluation of chest pain CODE STATUS: Full Code Discussed with: Patient Anticipated discharge date: in am Anticipated discharge place: Home Past Medical History Past Medical History: Heart Failure, Hyperlipidemia, Hypertension, Mitral Valve Prolapse (MVP), Rheumatoid Arthritis (RA), Thyroid Disorder Additional Past Medical History / Comment(s): HAD A PNE VACCINE AFTER AGE 67 BUT NOT SURE OF DATE,OFFICE CLOSED AT TIME OF THIS ADMIT. History of Any Multi-Drug Resistant Organisms: None Reported Past Surgical History: Section, Orthopedic Surgery Additional Past Surgical History / Comment(s): total right knee replacement Past Anesthesia/Blood Transfusion Reactions: No Reported Reaction Additional Past Anesthesia/Blood Transfusion Reaction / Comment(s): clausterphobia Past Psychological History: No Psychological Hx Reported Smoking Status: Never smoker Past Alcohol Use History: Occasional Past Drug Use History: None Reported - Past Family History Father Additional Family Medical History / Comment(s): smoker-had problems related to that Mother Additional Family Medical History / Comment(s): smoker-problems related to that Medications and Allergies Home Medications Medication Instructions Recorded Confirmed Type Multivit-Min/FA/Lycopen/Lutein 1 tab PO DAILY 03/29/16 10/06/21 History [Centrum Silver Tablet] Omeprazole 20 mg PO DAILY 03/29/16 10/06/21 History Budesonide-Formot 160-4.5 Mcg 2 puff INHALATION RT-BID #1 inhaler 04/06/16 10/06/21 Rx [Symbicort 160-4.5 Mcg Inhaler] Albuterol Inhaler [Ventolin Hfa 2 puff INHALATION RT-QID PRN 08/09/21 10/06/21 History Inhaler] Alendronate Sodium [Fosamax] 70 mg PO MO 08/09/21 10/06/21 History Cholecalciferol [Vitamin D3 (25 50 mcg PO DAILY 08/09/21 10/06/21 History Mcg = 1000 Iu)] Ipratropium-Albuterol Nebulize 3 ml INHALATION RT-BID PRN 08/09/21 10/06/21 History [Duoneb 0.5 mg-3 mg/3 ml Soln] Levothyroxine Sodium [Synthroid] 112 mcg PO DAILY 08/09/21 10/06/21 History Magnesium Oxide [Darden] 500 mg PO DAILY 08/09/21 10/06/21 History Montelukast [Singulair] 10 mg PO DAILY 08/09/21 10/06/21 History [place]-3 Acid Ethyl Esters [Lovaza] 2 gm PO BID 08/09/21 10/06/21 History Aspirin 81 mg PO DAILY #30 tab 08/11/21 10/06/21 Rx Atorvastatin [Lipitor] 80 mg PO HS #30 tab 08/11/21 10/06/21 Rx Clopidogrel [Plavix] 75 mg PO DAILY #30 tab 08/11/21 10/06/21 Rx Nitroglycerin Sl Tabs [Nitrostat] 0.4 mg SUBLINGUAL Q5M PRN #14 tab 08/11/21 10/06/21 Rx ALPRAZolam [Xanax] 0.25 mg PO Q8HR PRN 10/06/21 10/06/21 History Empagliflozin [Jardiance] 10 mg PO DAILY 10/06/21 10/06/21 History Metoprolol Tartrate [Lopressor] 12.5 mg PO BID 10/06/21 10/06/21 History lisinopriL [Zestril] 10 mg PO HS 10/06/21 10/06/21 History modafiniL [Provigil] 100 mg PO DAILY PRN 10/06/21 10/06/21 History Allergies Allergy/AdvReac Type Severity Reaction Status Date / Time clarithromycin [From Biaxin] Allergy Unknown Verified 10/06/21 22:57 gemifloxacin [From Factive] Allergy Unknown Verified 10/06/21 22:57 prednisone Allergy Unknown Verified 10/06/21 22:57 amoxicillin [From Augmentin] AdvReac Nausea & Verified 10/06/21 22:57 Vomiting & Diarrhea clavulanic acid AdvReac Nausea & Verified 10/06/21 22:57 [From Augmentin] Vomiting & Diarrhea Physical Exam Vitals: Vital Signs Temp Pulse Pulse Resp BP BP Pulse Ox 10/06/21 22:21 98.1 F 88 18 127/69 96 10/06/21 21:34 90 16 146/69 96 10/06/21 19:24 97.9 F 99 20 97 Intake and Output 10/06/21 10/06/21 10/07/21 14:59 22:59 06:59 Other: Weight 56.699 kg Results CBC & Chem 7: 10/07/21 03:11 10/07/21 03:11 Labs: Abnormal Lab Results - Last 24 Hours (Table) 10/06/21 10/06/21 Range/Units 20:02 20:02 RBC 3.79 L (3.80-5.40) m/uL BUN 19 H (7-17) mg/dL Glucose 105 H (74-99) mg/dL AST 43 H (14-36) U/L Thrombosis Risk Factor Assmnt - Choose All That Apply Each Factor Represents 1 point: Heart failure (<1month) Each Risk Factor Represents 3 Points: Age 75 years or older Thrombosis Risk Factor Assessment Total Risk Factor Score: 4 Thrombosis Risk Factor Assessment Level: Moderate Risk
[2021-10-07] MEDS: ATORVASTATIN 80 MG TAB PO SCH ×2 (03:48→22:02)
[2021-10-07 03:53] LABS: Partial Thromboplastin Time 24.2 sec (22.0-30.0); Prothrombin Time 10.6 sec (9.0-12.0)
[2021-10-07 04:01] LABS: Calcium 9.8 mg/dL (8.4-10.2); Potassium 4.1 mmol/L (3.5-5.1)
[2021-10-07] MEDS: LEVOTHYROXINE 112 MCG TAB PO SCH (05:33)
[2021-10-07] MEDS ORDERED: HEPARIN SODIUM,PORCINE 10,000 UNIT in SODIUM CHLORIDE 0.9% 1,000 ML IRRIGATION PRN (07:00)
[2021-10-07] MEDS ORDERED: HEPARIN SODIUM,PORCINE 2,500 UNIT in SODIUM CHLORIDE 0.9% 250 ML IRRIGATION PRN (07:00)
[2021-10-07] MEDS ORDERED: NITROGLYCERIN SL TABS 0.4 MG TAB SUBLINGUAL ONE (08:16)
--- NOTE | 2021-10-07 08:18 | P.CRDCN ---
History of Present Illness History of present illness: HISTORY OF PRESENTING ILLNESS Patient is a pleasant 80-year-old female with history of hypertension and hyperlipidemia borderline diabetes mellitus CAD status post anterior STEMI August 2021 rheumatoid arthritis who presents secondary to feeling of chest pressure and feeling her heart racing. She states it feels similar to her [place] back in August. She denies any associated nausea or diaphoresis or significant shortness breath. She is having some leg cramping she relates to taking Lasix in termittently. She did have stenting of her LAD in August and felt much better after that. She has been doing very well up until last night. Blood work shows hemoglobin 11.9, platelets 158, white blood cell 5.9, troponin 0.02, her 0.06, 0.05, proBNP 789. She was given nitro yesterday as well as Nitropaste and feels much better with only a mild pressure type sensation however unclear if this is also related to how she was sleeping in bed. REVIEW OF SYSTEMS At the time of my exam: CONSTITUTIONAL: Denies fever or chills. CARDIOVASCULAR: +chest pain, No shortness of breath, orthopnea, PND or pa lpitations. RESPIRATORY: Denies cough. GASTROINTESTINAL: Denies abdominal pain, diarrhea, constipation, nausea or vomiting. MUSCULOSKELETAL: Denies myalgias. NEUROLOGIC: Denies numbness, tingling or weakness. ENDOCRINE: Denies fatigue, weight change, polydipsia or polyurina. GENITOURINARY: Denies burning, hematuria or urgency with micturation. HEMATOLOGIC: Denies history of anemia or bleeding. PHYSICAL EXAMINATION Vital signs reviewed. CONSTITUTIONAL: No apparent distress. HEENT: Head is normocephalic. Pupils are equal, round. Sclerae anicteric. Mucous membranes of the mouth are moist. No JVD. No carotid bruit. CHEST EXAMINATION: Lungs are clear to auscultation. No chest wall tenderness is noted on palpation or with deep breathing. HEART EXAMINATION: Regular rate and rhythm. S1, S2 heard. No murmurs, gallops or rub. ABDOMEN: Soft, nontender. Positive bowel sounds. EXTREMITIES: 2+ peripheral pulses, no lower extremity edema and no calf tenderness. NEUROLOGIC EXAMINATION: Patient is awake, alert and oriented x3. ASSESSMENT 1. Non-STEMI appears type I mechanism 2. CAD with prior history of STEMI and PCI of LAD August 2021 3. Hypertension 4. Moderate to severe mitral stenosis by prior echo 5. Aortic stenosis 6. Rheumatoid arthritis 7. Borderline diabetes mellitus PLAN New chest pain concerning for type I mechanism non-STEMI. Discussed recommendations for heart catheterization patient is agreeable. Continue with heparin IV. Check 2-D echo. Increase metoprolol to 25 twice a day which should help as well with possible mitral stenosis. Further recommendations follow. Past Medical History Past Medical History: Heart Failure, Hyperlipidemia, Hypertension, Mitral Valve Prolapse (MVP), Rheumatoid Arthritis (RA), Thyroid Disorder Additional Past Medical History / Comment(s): HAD A PNE VACCINE AFTER AGE 67 BUT NOT SURE OF DATE,OFFICE CLOSED AT TIME OF THIS ADMIT. History of Any Multi-Drug Resistant Organisms: None Reported Past Surgical History: Section, Orthopedic Surgery Additional Past Surgical History / Comment(s): total right knee replacement Past Anesthesia/Blood Transfusion Reactions: No Reported Reaction Additional Past Anesthesia/Blood Transfusion Reaction / Comment(s): clausterphobia Past Psychological History: No Psychological Hx Reported Smoking Status: Never smoker Past Alcohol Use History: Occasional Past Drug Use History: None Reported - Past Family History Father Additional Family Medical History / Comment(s): smoker-had problems related to that Mother Additional Family Medical History / Comment(s): smoker-problems related to that Medications and Allergies Home Medications Medication Instructions Recorded Confirmed Type Multivit-Min/FA/Lycopen/Lutein 1 tab PO DAILY 03/29/16 10/06/21 History [Centrum Silver Tablet] Omeprazole 20 mg PO DAILY 03/29/16 10/06/21 History Budesonide-Formot 160-4.5 Mcg 2 puff INHALATION RT-BID #1 inhaler 04/06/16 10/06/21 Rx [Symbicort 160-4.5 Mcg Inhaler] Albuterol Inhaler [Ventolin Hfa 2 puff INHALATION RT-QID PRN 08/09/21 10/06/21 History Inhaler] Alendronate Sodium [Fosamax] 70 mg PO MO 08/09/21 10/06/21 History Cholecalciferol [Vitamin D3 (25 50 mcg PO DAILY 08/09/21 10/06/21 History Mcg = 1000 Iu)] Ipratropium-Albuterol Nebulize 3 ml INHALATION RT-BID PRN 08/09/21 10/06/21 History [Duoneb 0.5 mg-3 mg/3 ml Soln] Levothyroxine Sodium [Synthroid] 112 mcg PO DAILY 08/09/21 10/06/21 History Magnesium Oxide [Darden] 500 mg PO DAILY 08/09/21 10/06/21 History Montelukast [Singulair] 10 mg PO DAILY 08/09/21 10/06/21 History [place]-3 Acid Ethyl Esters [Lovaza] 2 gm PO BID 08/09/21 10/06/21 History Aspirin 81 mg PO DAILY #30 tab 08/11/21 10/06/21 Rx Atorvastatin [Lipitor] 80 mg PO HS #30 tab 08/11/21 10/06/21 Rx Clopidogrel [Plavix] 75 mg PO DAILY #30 tab 08/11/21 10/06/21 Rx Nitroglycerin Sl Tabs [Nitrostat] 0.4 mg SUBLINGUAL Q5M PRN #14 tab 08/11/21 10/06/21 Rx ALPRAZolam [Xanax] 0.25 mg PO Q8HR PRN 10/06/21 10/06/21 History Empagliflozin [Jardiance] 10 mg PO DAILY 10/06/21 10/06/21 History Metoprolol Tartrate [Lopressor] 12.5 mg PO BID 10/06/21 10/06/21 History lisinopriL [Zestril] 10 mg PO HS 10/06/21 10/06/21 History modafiniL [Provigil] 100 mg PO DAILY PRN 10/06/21 10/06/21 History Allergies Allergy/AdvReac Type Severity Reaction Status Date / Time clarithromycin [From Biaxin] Allergy Unknown Verified 10/06/21 22:57 gemifloxacin [From Factive] Allergy Unknown Verified 10/06/21 22:57 prednisone Allergy Unknown Verified 10/06/21 22:57 amoxicillin [From Augmentin] AdvReac Nausea & Verified 10/06/21 22:57 Vomiting & Diarrhea clavulanic acid AdvReac Nausea & Verified 10/06/21 22:57 [From Augmentin] Vomiting & Diarrhea Physical Exam Vitals: Vital Signs Temp Pulse Pulse Resp BP BP Pulse Ox 10/07/21 07:00 98.3 F 109 H 20 164/64 96 10/07/21 04:08 88 18 10/07/21 02:21 97.9 F 88 18 147/72 97 10/06/21 22:21 98.1 F 88 18 127/69 96 10/06/21 21:34 90 16 146/69 96 10/06/21 19:24 97.9 F 99 20 97 Intake and Output 10/06/21 10/07/21 10/07/21 22:59 06:59 14:59 Other: Voiding Method Toilet # Voids 5 1 Weight 56.699 kg Results 10/07/21 03:11 10/07/21 03:11 Cardiac Enzymes 10/06/21 10/06/21 10/07/21 Range/Units 20:02 20:02 00:19 AST 43 H (14-36) U/L Troponin I 0.025 0.061 H* (0.000-0.034) ng/mL 10/07/21 Range/Units 03:11 AST (14-36) U/L Troponin I 0.058 H* (0.000-0.034) ng/mL Coagulation 10/06/21 10/07/21 Range/Units 20:02 03:11 PT 10.8 10.6 (9.0-12.0) sec APTT 23.9 24.2 (22.0-30.0) sec CBC 10/06/21 10/07/21 Range/Units 20:02 03:11 WBC 5.9 8.3 (3.8-10.6) k/uL RBC 3.79 L 4.42 (3.80-5.40) m/uL Hgb 11.9 13.7 (11.4-16.0) gm/dL Hct 36.8 43.3 (34.0-46.0) % Plt Count 158 178 (150-450) k/uL Comprehensive Metabolic Panel 10/06/21 10/07/21 Range/Units 20:02 03:11 Sodium 138 140 (137-145) mmol/L Potassium 4.4 4.1 (3.5-5.1) mmol/L Chloride 105 102 (98-107) mmol/L Carbon Dioxide 27 29 (22-30) mmol/L BUN 19 H 18 H (7-17) mg/dL Creatinine 0.88 0.89 (0.52-1.04) mg/dL Glucose 105 H 102 H (74-99) mg/dL Calcium 9.2 9.8 (8.4-10.2) mg/dL AST 43 H (14-36) U/L ALT 32 (4-34) U/L Alkaline Phosphatase 72 (38-126) U/L Total Protein 7.4 (6.3-8.2) g/dL Albumin 4.1 (3.5-5.0) g/dL Current Medications Generic Name Dose Route Start Last Admin Trade Name Freq PRN Reason Stop Dose Admin Atorvastatin Calcium 80 mg 10/07/21 03:30 10/07/21 03:48 Atorvastatin 80 Mg Tab PO 80 mg HS PAUL Administration Budesonide/Formoterol Fumarate 2 puff 10/07/21 08:00 Symbicort 160-4.5 Mcg Inhaler INHALATION RT-BID [facility] Clopidogrel Bisulfate 75 mg 10/07/21 09:00 Clopidogrel 75 Mg Tab PO DAILY [facility] Heparin Sodium (Porcine) 0 unit 10/07/21 01:55 Heparin Sodium 1,000 Un/Ml (10ml Vl) IV PER PROTOCOL PRN Low PTT Protocol Heparin Sodium/Sodium Chloride 250 mls @ 6.804 mls/hr 10/07/21 02:00 10/07/21 02:34 25,000 unit/ Sodium Chloride IV 12 units/kg/hr .Q24H PAUL 6.804 mls/hr Administration Protocol 12 UNITS/KG/HR Levothyroxine Sodium 112 mcg 10/07/21 06:30 10/07/21 05:33 Levothyroxine 112 Mcg Tab PO 112 mcg DAILY@0630 PAUL Administration Lisinopril 10 mg 10/07/21 21:00 Lisinopril 10 Mg Tab PO HS [facility] Metoprolol Tartrate 25 mg 10/07/21 09:00 Metoprolol Tartrate 25 Mg Tab PO BID [facility] Montelukast Sodium 10 mg 10/07/21 09:00 Montelukast 10 Mg Tab PO DAILY [facility] Naloxone HCl 0.2 mg 10/06/21 21:13 Naloxone 0.4 Mg/Ml 1 Ml Vial IV Q2M PRN Opioid Reversal Intake and Output 10/06/21 10/07/21 10/07/21 22:59 06:59 14:59 Other: Voiding Method Toilet # Voids 5 1 Weight 56.699 kg 10/07/21 03:11 10/07/21 03:11
[2021-10-07] MEDS ORDERED: ALPRAZolam 0.5 MG TAB PO PRN (08:19)
[2021-10-07] MEDS ORDERED: ATORVASTATIN 80 MG TAB PO STA (08:19)
[2021-10-07] MEDS ORDERED: ASPIRIN 325 MG TAB PO STA (08:19)
[2021-10-07] MEDS ORDERED: NITROGLYCERIN SL TABS 0.4 MG TAB SUBLINGUAL PRN (08:19)
[2021-10-07] MEDS: SYMBICORT 160-4.5 MCG INHALER INHALATION SCH ×2 (08:21→20:00)
[2021-10-07] MEDS: METOPROLOL TARTRATE 25 MG TAB PO SCH ×2 (08:47→22:02)
[2021-10-07] MEDS: CLOPIDOGREL 75 MG TAB PO SCH (08:47)
[2021-10-07] MEDS: MONTELUKAST 10 MG TAB PO SCH (08:47)
[2021-10-07] MEDS ORDERED: METOPROLOL TARTRATE 12.5 MG TAB PO SCH (09:00)
[2021-10-07 11:38] LABS: Glucose,Whole Blood 101 mg/dL (70-110)
--- NOTE | 2021-10-07 12:02 | CA ---
Transthoracic Echo Report Name: Ulises Grande Age: 81 Gender: F : 1940 Exam Date: 10/07/2021 09:02 Exam Location: [facility] Ht (in): 62 Wt (lb): 125 Ordering Physician: Kaleb Jain DO ([email or web address]) Attending/Referring Phys: Bakery Clerk Jennifer Nicole RDCS Procedure CPT: Indications: re: new NSTEMI Cardiac Hx: Technical Quality: Good Contrast 1: Total Dose (mL): Contrast 2: Total Dose (mL): MEASUREMENTS (Male / Female) Normal Values 2D ECHO LV Diastolic Diameter PLAX 3.5 cm 4.2 - 5.9 / 3.9 - 5.3 cm LV Systolic Diameter PLAX 2.9 cm IVS Diastolic Thickness 1.5 cm 0.6 - 1.0 / 0.6 - 0.9 cm LVPW Diastolic Thickness 1.3 cm 0.6 - 1.0 / 0.6 - 0.9 cm LV Relative Wall Thickness 0.8 RV Internal Dim ED PLAX 3.0 cm LVOT Diameter 2.0 cm LA Systolic Diameter LX 3.6 cm 3.0 - 4.0 / 2.7 - 3.8 cm LA Volume 49.3 cm??? 18 - 58 / 22 - 52 cm??? M-MODE Aortic Root Diameter MM 2.9 cm MV E Point Septal Separation 0.6 cm AV Cusp Separation MM 1.7 cm DOPPLER AV Peak Velocity 289.7 cm/s AV Peak Gradient 33.6 mmHg AV Mean Velocity 203.3 cm/s AV Mean Gradient 19.0 mmHg AV Velocity Time Integral 49.4 cm AI Peak Velocity 393.4 cm/s AI Peak Gradient 61.9 mmHg AI Pressure Half Time 456.2 ms MV Peak Velocity 210.9 cm/s MV Peak Gradient 17.8 mmHg MV Mean Velocity 150.4 cm/s MV Mean Gradient 10.1 mmHg MV Velocity Time Integral 57.4 cm MV Area PHT 1.6 cm??? Mitral E Point Velocity 189.8 cm/s Mitral A Point Velocity 207.6 cm/s Mitral E to A Ratio 0.9 MV Deceleration Time 479.5 ms TR Peak Velocity 344.3 cm/s TR Peak Gradient 47.4 mmHg Right Ventricular Systolic Press 51.2 mmHg FINDINGS Left Ventricle Left ventricular ejection fraction is estimated at 60-65 %. Left ventricular cavity size normal. Mild to moderate concentric left ventricular hypertrophy. Right Ventricle Normal right ventricular size and function. Moderate pulmonary hypertension. Right Atrium Normal right atrial size. Left Atrium Normal left atrial size. Mitral Valve Moderate thickening/calcification of the anterior mitral valve leaflet. Moderate thickening/calcification of the posterior mitral valve leaflet. Ncnjcfdj-em-adyare mitral stenosis with mean gradient of 10 mmHg Aortic Valve Focal thickening of the aortic valve cusps. Mild aortic stenosis with a peak gradient of 34 mmHg and a mean gradient of 19 mmHg. Mild aortic regurgitation. Tricuspid Valve Mild tricuspid regurgitation. Pulmonic Valve Trace pulmonic regurgitation. Pericardium No pericardial effusion. Normal pericardium. Aorta Normal size aortic root and proximal ascending aorta. CONCLUSIONS Left ventricular ejection fraction 60-65% Mild to moderate LVH RVSP 51 Moderate to severe mitral calcification Moderate to severe mitral stenosis with mean gradient 10 mmHg with a heart rate 88 bpm. Consider WILLIAM if mitral stenosis a clinical concern. Mild aortic regurgitation Mild aortic stenosis Previewed by: Dr. Kaleb Jain DO (Electronically Signed) Final Date: 07 October 2021 12:01
[2021-10-07] MEDS ORDERED: VERAPAMIL 2.5 MG/ML 2 ML AMP ONE (15:50)
[2021-10-07] MEDS ORDERED: IV FLUID CONTINUATION 1,000 ML IV ONE (15:53)
[2021-10-07] MEDS ORDERED: fentaNYL (PF) 50 MCG/ML 2 ML AMP ONE (16:04)
[2021-10-07] MEDS ORDERED: fentaNYL (PF) 50 MCG/ML 2 ML AMP IV ONE (16:06)
[2021-10-07] MEDS ORDERED: MIDAZOLAM 2 MG/2 ML VIAL IV ONE (16:06)
[2021-10-07] MEDS ORDERED: LIDOCAINE 1% INJ 10MG/ML (5 ML VIAL-PF) SQ ONE (16:10)
[2021-10-07] MEDS ORDERED: VERAPAMIL SYRINGE (5 MG/10 ML) INTRAARTER ONE (16:11)
[2021-10-07] MEDS ORDERED: IOPAMIDOL-370 125ML BTL INJ ONE (16:22)
[2021-10-07] MEDS ORDERED: RX INFO: IV CONTRAST WAS GIVEN 1 EACH MISC MISCELLANE PRN (16:39)
--- NOTE | 2021-10-07 16:39 | P.CARDCATH ---
Description of Procedure: PROCEDURES PERFORMED: Left heart catheterization, bilateral coronary angiography INDICATION: NSTEMI CONSENT:I have discussed the risks, benefits and alternative therapies for the above-mentioned procedure and for both sedation/analgesia as well as necessary blood product administration, if indicated, as they pertain to this patient. The patient has indicated understanding and acceptance of the risks and procedures discussed. PROCEDURE: After the risks, benefits and alternatives of the above mentioned procedure explained in detail with the patient, informed consent was obtained. Patient was taken to the catheterization lab and prepped and draped in usual fashion. 1% lidocaine was used to anesthetize the right radial artery. A 6- Luxembourger sheath was placed in the right radial artery using modified Seldinger technique. Left coronary angiography was performed with a 5-Luxembourger JL 3.5 catheter and right coronary angiography was performed with a 5-Luxembourger JR5 catheter in various views. A 5-Luxembourger FR5 catheter was inserted into the left ventricle and pressure measurements were obtained. The right radial sheath was removed and a TR band was placed with hemostasis achieved. The patient tolerated the procedure well. Patient was transported back to the post catheterization holding area in stable condition. Conscious Sedation: Patient was monitored under the direct supervision of vision of myself for conscious sedation using Versed and fentanyl for a total duration of 18 minutes HEMODYNAMICS: Aorta: 122/78 LV: 121/1, LVEDP 3 SELECTIVE CORONARY ARTERIOGRAPHY: LEFT MAIN: The left main is a large caliber vessel which bifurcates into the LAD and circumflex. There is no significant stenosis. LEFT ANTERIOR DESCENDING CORONARY ARTERY: LAD is a large caliber vessel which wraps around to the apex. There is a proximal LAD 30-40% stenosis at the level of the beginning of her stent and otherwise minimal 10% in-stent stenosis of the mid LAD. 30-40% stenosis appears similar to prior intervention. LEFT CIRCUMFLEX CORONARY ARTERY: Left circumflex is a moderate caliber vessel with mild luminal irregularities. RIGHT CORONARY ARTERY: The right coronary artery is a large caliber vessel which gives off a PDA and PLV branch and is the dominant vessel. There are mild luminal irregularities. FINAL IMPRESSION: 1. CAD as described above including minimal luminal irregularities, patent LAD stent with only 30-40% proximal LAD stenosis similar to prior intervention. 2. Low left sided filling pressures, however left atrial pressures may be elevated with history of mitral stenosis PLAN: 1. Aggressive risk factor modification per most recent ACC/AHA guidelines. 2. Symptoms of chest pressure and mildly elevated troponins may be a result of mitral stenosis. Aggressive rate controlling regimen and you increase beta rosario and monitor response.
[2021-10-07] MEDS ORDERED: SODIUM CHLORIDE 0.9% 1,000 ML IV SCH (16:45)
--- NOTE | 2021-10-07 18:16 | P.PN ---
Subjective Progress Note Date: 10/07/21 Hospital course: The patient is a 81-year-old female with a PMH of hypertension, hyperlipidemia, mitral valve prolapse, systolic CHF, CAD status post STEMI in 08/2021 status post PCI to LAD presents to the emergency room with complaints of chest discomfort. The patient reports that she was at home resting comfortably when she suddenly developed a pressure-like substernal chest discomfort, 10 out of 10, with associated palpitations, radiating up into the head. She reports that D Gonzalez improved her pain, and at time of interview it had improved to a 3 out of 10. She denied extremity shortness of breath, nausea, diaphoresis, dizziness, or vomiting. Reports the pain is somewhat similar to when she had her [place] last month. Denied experiencing orthopnea, PND, lower extremity edema, fever, chills, cough, abdominal pain, diarrhea. EKG in the emergency room reveals sinus rhythm at 88 bpm with left axis deviation. Chest x-ray revealed cardiomegaly with pulmonary vascular congestion. Laboratory evaluation was remarkable for troponin of 0.025 and proBNP 79. Patient was admitted under our services with consultation to cardiology. After admission it was noted patient's repeat troponin elevated from 0.025-0.061 patient was started on IV heparin per ACS protocol for NSTEMI. Third troponin resulting at 0.058. Echocardiogram completed revealing normal EF of 60-65% with mild to moderate LVH, moderate to severe mitral calcification, moderate to severe mitral stenosis, and mild aortic regurgitation and stenosis. Cardiology evaluated planning to take patient for cardiac cath later today. Physical examination: Patient seen and fully evaluated at bedside this morning. Patient was sitting up at the edge of bed and reported feeling well. Patient reports she has had full resolution of previous reported chest pain/discomfort. Patient on heparin infusion and awaiting to go down for cardiac cath later this afternoon. Morning labs unremarkable. General: non toxic, no distress, appears at stated age. Thin build. Derm: warm, dry Head: atraumatic, normocephalic, symmetric Eyes: EOMI, no lid lag, anicteric sclera Mouth: no lip lesion, mucus membranes moist Cardiovascular: S1S2 reg, systolic murmur, positive posterior tibial pulse bilateral, Lungs: CTA bilateral, no rhonchi, no rales , no accessory muscle use Abdominal: soft, nontender to palpation, no guarding, no appreciable organomegaly Ext: no gross muscle atrophy, no edema, no contractures Neuro: CN II-XI grossly intact, no focal neuro deficits Psych: Alert, oriented, appropriate affect Assessment/plan NSTEMI -Continue heparin infusion per ACS protocol. -Continue with aspirin, atorvastatin, Plavix, lisinopril, and metoprolol. -PRN sublingual nitro as needed for chest pain. -Continuous Cardiac monitoring -Cardiology following, planning to take patient for cardiac cath later today. Hypertension -Monitor vital signs and continue daily medication regimen with lisinopril and metoprolol. Hyperlipidemia -Continue daily medication regimen with atorvastatin. Hypothyroidism -Continue daily medication regimen with levothyroxine. COPD/asthma, not in acute exacerbation. -Continue Singulair and Symbicort daily Chronic conditions: Hypertension, hyperlipidemia, asthma -Continue home meds CODE STATUS: Full Code DVT prophylaxis: Heparin Discussed with: Patient and RN Anticipated discharge date: in am Anticipated discharge place: Home Objective - Vital Signs Vital signs: Vital Signs Temp 98.3 F 10/07/21 07:00 Pulse 109 H 10/07/21 07:00 Resp 20 10/07/21 07:00 BP 164/64 10/07/21 07:00 Pulse Ox 96 10/07/21 07:00 FiO2 Intake & Output 10/06/21 10/07/21 10/07/21 18:59 06:59 18:59 Weight 56.699 kg Other: Voiding Method Toilet # Voids 5 1 - Labs CBC & Chem 7: 10/07/21 03:11 10/07/21 03:11 Labs: Abnormal Lab Results - Last 24 Hours (Table) 10/06/21 10/06/21 10/07/21 Range/Units 20:02 20:02 00:19 RBC 3.79 L (3.80-5.40) m/uL BUN 19 H (7-17) mg/dL Glucose 105 H (74-99) mg/dL AST 43 H (14-36) U/L Troponin I 0.061 H* (0.000-0.034) ng/mL 10/07/21 10/07/21 Range/Units 03:11 03:11 RBC (3.80-5.40) m/uL BUN 18 H (7-17) mg/dL Glucose 102 H (74-99) mg/dL AST (14-36) U/L Troponin I 0.058 H* (0.000-0.034) ng/mL
[2021-10-07] MEDS ORDERED: MELATONIN 3 MG TABLET PO PRN (21:00)
[2021-10-07] MEDS: lisinopriL 10 MG TAB PO SCH (22:02)
[2021-10-07] MEDS: ALPRAZolam 0.25 MG TAB PO PRN (22:02)
[2021-10-08] MEDS: LEVOTHYROXINE 112 MCG TAB PO SCH (05:23)
[2021-10-08 06:46] LABS: INR 1.1 (<1.2); Prothrombin Time 11.7 sec (9.0-12.0)
[2021-10-08] MEDS: SYMBICORT 160-4.5 MCG INHALER INHALATION SCH ×2 (08:31→20:51)
[2021-10-08] MEDS: CLOPIDOGREL 75 MG TAB PO SCH (08:32)
[2021-10-08] MEDS: METOPROLOL TARTRATE 25 MG TAB PO SCH ×2 (08:32→20:30)
[2021-10-08] MEDS: MONTELUKAST 10 MG TAB PO SCH (08:32)
[2021-10-08 09:27] LABS: Basophils # (A) 0.02 X 10*3/uL (0.00-0.10); Basophils % (A) 0.3 %; Eosinophils # (A) 0.04 X 10*3/uL (0.04-0.35); Eosinophils % (A) 0.6 %; HGB 11.4 g/dL (12.0-15.0); Immature Grans, Automated 0.2 %; Lymphocytes # (A) 1.53 X 10*3/uL (0.90-5.00); Lymphocytes % (A) 24.8 %; MCH 29.9 pg (27.0-32.0); MCV 99.7 fL (80.0-97.0); Mean Platelet Volume 10.8 fL (9.5-12.2); Monocytes # (A) 0.88 X 10*3/uL (0.20-1.00); Monocytes % (A) 14.2 %; NRBC Per 100 WBC 0 /100 WBCS (0.0-0.0); Neutrophils % (A) 59.9 %; Platelet Count 158 X 10*3/uL (140-440); RBC 3.81 X 10*6/uL (4.10-5.20); RDW 13.6 % (11.5-14.5); WBC 6.18 X 10*3/uL (4.50-10.00)
--- NOTE | 2021-10-08 09:42 | P.PN ---
Subjective HISTORY OF PRESENTING ILLNESS Patient is a pleasant 80-year-old female with history of hypertension and hyperlipidemia borderline diabetes mellitus CAD status post anterior STEMI August 2021 rheumatoid arthritis who presents secondary to feeling of chest pressure and feeling her heart racing. She states it feels similar to her [place] back in August. She denies any associated nausea or diaphoresis or significant shortness breath. She is having some leg cramping she relates to taking Lasix intermittently. She did have stenting of her LAD in August and felt much better after that. She has been doing very well up until last night. Blood work shows hemoglobin 11.9, platelets 158, white blood cell 5.9, troponin 0.02, her 0.06, 0.05, proBNP 789. She was given nitro yesterday as well as Nitropaste and feels much better with only a mild pressure type sensation however unclear if this is also related to how she was sleeping in bed. 10/08 Patient seen and examined. Patient underwent left heart catheterization yesterday which showed only mild 30-40% proximal LAD stenosis of the previous stent which appears similar to previous. She was chest pain-free after receiving increased dose of metoprolol yesterday. Echo shows preserved EF with continued moderate to severe mitral stenosis. Initially symptoms felt possibly related to the mitral valve and therefore metoprolol had been increased to better control the heart rate. Unfortunately she had repeat episode of chest pain this morning with T-wave inversions noted on EKG during chest pain. Chest pain only lasted approximately 10-15 minutes and currently feels well. PHYSICAL EXAMINATION Vital signs reviewed. CONSTITUTIONAL: No apparent distress. HEENT: Head is normocephalic. Pupils are equal, round. Sclerae anicteric. Mucous membranes of the mouth are moist. No JVD. No carotid bruit. CHEST EXAMINATION: Lungs are clear to auscultation. No chest wall tenderness is noted on palpation or with deep breathing. HEART EXAMINATION: Regular rate and rhythm. S1, S2 heard. +2/4 diastolc murmur, gallops or rub. ABDOMEN: Soft, nontender. Positive bowel sounds. EXTREMITIES: 2+ peripheral pulses, no lower extremity edema and no calf tenderness. NEUROLOGIC EXAMINATION: Patient is awake, alert and oriented x3. ASSESSMENT 1. Non-STEMI 2. CAD with prior history of STEMI and PCI of LAD August 2021 3. Hypertension 4. Moderate to severe mitral stenosis by prior echo 5. Aortic stenosis 6. Rheumatoid arthritis 7. Borderline diabetes mellitus 8. Continued episodes of chest pain with new ischemic changes on EKG concerning for vasospasm PLAN Left heart catheterization shows only 30-40% proximal LAD stenosis without any significant findings of thrombus and appears similar to prior angiograms. Patient however did have recurrence of chest pain today lasting approximately 10 minutes with ischemic changes and T-wave inversions in the lateral leads which were different than presenting EKG. May be consideration of vasospasm. Initial STEMI also appeared to possibly be more thrombo embolic without much other significant disease however current situation does not appear thromboembolic. Her heart rate is 77 when she was having the chest pain and appears less likely related to her mitral stenosis. Continue with increased dose of metoprolol and add Imdur and monitor. If patient chest pain-free likely discharge home in the next 24 hours. If patient continues to have chest pain may consider repeat heart catheterization and iFR/IVUS LAD. Objective - Vital Signs Vital signs: Vital Signs Temp 97.5 F L 10/08/21 07:00 Pulse 66 10/08/21 07:00 Resp 18 10/08/21 07:00 BP 100/59 10/08/21 07:00 Pulse Ox 97 10/08/21 07:00 FiO2 Intake & Output 10/07/21 10/08/21 10/08/21 18:59 06:59 18:59 Intake Total 163.05 1500 Balance 163.05 1500 Intake: IV 100 Intake, IV Titration 63.05 1000 Amount Heparin Sod,Pork in 0.45% 63.05 NaCl 25,000 unit In 0.45 % NaCl 1 250ml.bag @ 12 UNITS/KG/HR 6.804 mls/hr IV .Q24H PAUL Rx#: [id number] Sodium Chloride 0.9% 1, 1000 000 ml @ 75 mls/hr IV . [id number] PAUL Rx#:[id number] Oral 500 Other: Voiding Method Toilet Toilet # Voids 1 - Labs CBC & Chem 7: 10/08/21 03:13 10/07/21 03:11 Labs: Abnormal Lab Results - Last 24 Hours (Table) 10/08/21 Range/Units 03:13 RBC 3.81 L (4.10-5.20) X 10*6/uL Hgb 11.4 L (12.0-15.0) g/dL MCV 99.7 H (80.0-97.0) fL MCHC 30.0 L (32.0-37.0) g/dL
[2021-10-08] MEDS: ISOSORBIDE MONONITRATE ER 30 MG TAB.ER.24H PO SCH (10:22)
--- NOTE | 2021-10-08 14:37 | P.PN ---
Subjective Progress Note Date: 10/08/21 Hospital course: The patient is a 81-year-old female with a PMH of hypertension, hyperlipidemia, mitral valve prolapse, systolic CHF, CAD status post STEMI in 08/10/21 status post PCI to LAD presents to the emergency room with complaints of chest discomfort. The patient reports that she was at home resting comfortably when she suddenly developed a pressure-like substernal chest discomfort, 10 out of 10, with associated palpitations, radiating up into the head. She reports that D Gonzalez improved her pain, and at time of interview it had improved to a 3 out of 10. She denied extremity shortness of breath, nausea, diaphoresis, dizziness, or vomiting. Reports the pain is somewhat similar to when she had her [place] last month. Denied experiencing orthopnea, PND, lower extremity edema, fever, chills, cough, abdominal pain, diarrhea. EKG in the emergency room reveals sinus rhythm at 88 bpm with left axis deviation. Chest x-ray revealed cardiomegaly with pulmonary vascular congestion. Laboratory evaluation was remarkable for troponin of 0.025 and proBNP 79. Patient was admitted under our services with consultation to cardiology. After admission it was noted patient's repeat troponin elevated from 0.025-0.061 patient was started on IV heparin per ACS protocol for NSTEMI. Third troponin resulting at 0.058. Echocardiogram completed revealing normal EF of 60-65% with mild to moderate LVH, moderate to severe mitral calcification, moderate to severe mitral stenosis, and mild aortic regurgitation and stenosis. Cardiology evaluated and took pt for cardiac cath on 10/07/21 . Cardiac cath revealed patent LAD stent with only 30-40% proximal LAD stenosis similar to prior intervention. Concerned that symptoms of chest pressure and mildly elevated troponins were a result of mitral stenosis and they are recommending aggressive rate controlling regimen with increasing beta rosario and monitoring response. He again monitored overnight Physical examination: Patient seen and fully evaluated at bedside this morning. Patient was sitting up at the edge of bed, reports that this morning she was having an episode of pain/discomfort to her midsternal chest similar to previous pain felt upon arrival. An EKG was completed during time of chest pain and revealed normal sinus rhythm at 73 bpm with new onset T-wave inversion in leads V2 through V5 when compared to EKGs completed 10/06/21 and 10/07/21. Patient's chest pain lasted approximately 15 minutes and resolved spontaneously. Patient reports previously felt pain came on suddenly while at rest. She denied having any other complaints including headache, lightheadedness, dizziness, palpitations, shortness of breath, nausea, or experiencing any numbness/tingling/weakness in her extremities. Discussed with cardiology recommending continuing increased dose of metoprolol and starting patient on Imdur 30 mg daily with continued overnight monitoring. Cardiology reporting if patient remains free from chest pain may consider discharge tomorrow morning, however if chest pain returns cardiology to consider a repeat heart catheterization and iFR/IVUS to LAD. Patient currently remains free from any further chest pain or complaints. General: non toxic, no distress, appears at stated age. Thin build. Derm: warm, dry Head: atraumatic, normocephalic, symmetric Eyes: EOMI, no lid lag, anicteric sclera Mouth: no lip lesion, mucus membranes moist Cardiovascular: S1S2 reg, systolic murmur, positive posterior tibial pulse bilateral, Lungs: CTA bilateral, no rhonchi, no rales , no accessory muscle use Abdominal: soft, nontender to palpation, no guarding, no appreciable organomegaly Ext: no gross muscle atrophy, no edema, no contractures Neuro: CN II-XI grossly intact, no focal neuro deficits Psych: Alert, oriented, appropriate affect Assessment and plan of care: NSTEMI CAD with recent STEMI 08/10/21 status post PCI to LAD Moderate left ventricular hypertrophy Moderate to severe mitral calcification and mitral stenosis -Continue heparin infusion per ACS protocol. -Continue with aspirin, atorvastatin, Plavix, lisinopril, and metoprolol. -PRN sublingual nitro as needed for chest pain. -Continuous Cardiac monitoring -Cardiology following, planning to take patient for cardiac cath later today. Hypertension -Monitor vital signs and continue daily medication regimen with lisinopril and metoprolol. Hyperlipidemia -Continue daily medication regimen with atorvastatin. Hypothyroidism -Continue daily medication regimen with levothyroxine. COPD/asthma, not in acute exacerbation. -Continue Singulair and Symbicort daily CODE STATUS: Full Code DVT prophylaxis: Heparin Discussed with: Patient and RN Anticipated discharge date: Likely tomorrow morning Anticipated discharge place: Home A total of 39 minutes was spent on the care of this complex patient more than 50% of the time was spent in counseling and care coordination. I reviewed the documentation as provided by the VANESSA above, who is the original author of this note. I agree with the documented assessment and plan, with the following changes: none Objective - Vital Signs Vital signs: Vital Signs Temp 97.5 F L 10/08/21 07:00 Pulse 66 10/08/21 07:00 Resp 18 10/08/21 07:00 BP 100/59 10/08/21 07:00 Pulse Ox 97 10/08/21 07:00 FiO2 Intake & Output 10/07/21 10/08/21 10/08/21 18:59 06:59 18:59 Intake Total 163.05 1500 Balance 163.05 1500 Intake: IV 100 Intake, IV Titration 63.05 1000 Amount Heparin Sod,Pork in 0.45% 63.05 NaCl 25,000 unit In 0.45 % NaCl 1 250ml.bag @ 12 UNITS/KG/HR 6.804 mls/hr IV .Q24H PAUL Rx#: [id number] Sodium Chloride 0.9% 1, 1000 000 ml @ 75 mls/hr IV . [id number] PAUL Rx#:[id number] Oral 500 Other: Voiding Method Toilet Toilet # Voids 1 - Labs CBC & Chem 7: 10/08/21 03:13 10/07/21 03:11 Labs: Abnormal Lab Results - Last 24 Hours (Table) 10/08/21 Range/Units 03:13 RBC 3.81 L (4.10-5.20) X 10*6/uL Hgb 11.4 L (12.0-15.0) g/dL MCV 99.7 H (80.0-97.0) fL MCHC 30.0 L (32.0-37.0) g/dL
[2021-10-08] MEDS: lisinopriL 10 MG TAB PO SCH (20:30)
[2021-10-08] MEDS: ATORVASTATIN 80 MG TAB PO SCH (20:30)
[2021-10-08] MEDS: ALPRAZolam 0.25 MG TAB PO PRN (22:01)
[2021-10-09] MEDS: LEVOTHYROXINE 112 MCG TAB PO SCH (05:13)
[2021-10-09] MEDS: SYMBICORT 160-4.5 MCG INHALER INHALATION SCH ×2 (07:21→19:06)
[2021-10-09] MEDS: VERAPAMIL 40 MG TAB PO SCH ×2 (09:39→16:27)
[2021-10-09] MEDS: MONTELUKAST 10 MG TAB PO SCH (09:39)
[2021-10-09] MEDS: CLOPIDOGREL 75 MG TAB PO SCH (09:39)
[2021-10-09] MEDS: ISOSORBIDE MONONITRATE ER 30 MG TAB.ER.24H PO SCH (09:39)
--- NOTE | 2021-10-09 10:28 | P.PN ---
Subjective Progress Note Date: 10/09/21 HISTORY OF PRESENT ILLNESS: Patient is a pleasant 80-year-old female with history of hypertension and hyperlipidemia borderline diabetes mellitus CAD status post anterior STEMI August 2021 rheumatoid arthritis who presents secondary to feeling of chest pressure and feeling her heart racing. She states it feels similar to her [place] back in August. She denies any associated nausea or diaphoresis or significant shortness breath. She is having some leg cramping she relates to taking Lasix intermittently. She did have stenting of her LAD in August and felt much better after that. She has been doing very well up until last night. Blood work shows hemoglobin 11.9, platelets 158, white blood cell 5.9, troponin 0.02, her 0.06, 0.05, proBNP 789. She was given nitro yesterday as well as Nitropaste and feels much better with only a mild pressure type sensation however unclear if this is also related to how she was sleeping in bed. 10/08 Patient seen and examined. Patient underwent left heart catheterization yesterday which showed only mild 30-40% proximal LAD stenosis of the previous stent which appears similar to previous. She was chest pain-free after receiving increased dose of metoprolol yesterday. Echo shows preserved EF with continued moderate to severe mitral stenosis. Initially symptoms felt possibly related to the mitral valve and therefore metoprolol had been increased to better control the heart rate. Unfortunately she had repeat episode of chest pain this morning with T-wave inversions noted on EKG during chest pain. Chest pain only lasted approximately 10-15 minutes and currently feels well. 10/09/2021 Patient examined this morning at the bedside. Patient denies any shortness of breath. She reports having some mild chest pressure this morning, but denies any chest pain. EKG completed this morning is unchanged. Vital signs are stabl e. PHYSICAL EXAM: VITAL SIGNS: Reviewed. GENERAL: Well-developed in no acute distress. NECK: Supple. No JVD or thyromegaly LUNGS: Respirations even and unlabored. Lungs essentially clear to auscultation bilaterally. HEART: Regular rate and rhythm. S1 and S2 heard. EXTREMITIES: Normal range of motion. No clubbing or cyanosis. Peripheral pulses intact. No lower extremity edema ASSESSMENT: 1. Non-STEMI 2. CAD with prior history of STEMI and PCI of LAD August 2021 3. Hypertension 4. Moderate to severe mitral stenosis by prior echo 5. Aortic stenosis 6. Rheumatoid arthritis 7. Borderline diabetes mellitus 8. Continued episodes of chest pain with new ischemic changes on EKG concerning for vasospasm PLAN: Obtain limited echo to assess for wall motion abnormalities Discontinue metoprolol Begin verapamil 40 mg 3 times a day If limited echo does not reveal any new wall motion abnormalities, the patient may be discharged home today from a cardiac exam point in follow-up on an outpatient basis Nurse practitioner note has been reviewed by physician. Signing provider agrees with the documented findings, assessment, and plan of care. Objective - Vital Signs Vital signs: Vital Signs Temp 98 F 10/09/21 07:00 Pulse 74 10/09/21 07:00 Resp 16 10/09/21 07:00 BP 124/66 10/09/21 07:00 Pulse Ox 96 10/09/21 07:00 FiO2 Intake & Output 10/08/21 10/09/21 10/09/21 18:59 06:59 18:59 Intake Total 118 Balance 118 Intake: Oral 118 Other: Voiding Method Toilet Toilet # Voids 1 2 - Labs CBC & Chem 7: 10/08/21 03:13 10/07/21 03:11
[2021-10-09] MEDS: ALPRAZolam 0.25 MG TAB PO PRN (14:23)
[2021-10-09 14:34] VITALS: BP 136/56; PULSE 88; RESP 17; TEMP 97.7
--- NOTE | 2021-10-09 17:16 | CA ---
Transthoracic Echo Report Name: Ulises Grande Age: 81 Gender: F : 1940 Exam Date: 10/09/2021 11:37 Exam Location: [facility] [facility] Ht (in): 62 Wt (lb): 125 Ordering Physician: Laura Christian Attending/Referring Phys: [id number], Anahi Registered Respiratory Therapist Pita Bennett RDCS Procedure CPT: Indications: LV function, look at anterior wall motion abn Cardiac Hx: Technical Quality: Fair Contrast 1: Total Dose (mL): Contrast 2: Total Dose (mL): MEASUREMENTS (Male / Female) Normal Values FINDINGS Left Ventricle Limited study. Normal left ventricular wall motion. Left ventricular ejection fraction is estimated at 55-60%. Right Ventricle Right Atrium Left Atrium Mitral Valve Aortic Valve Tricuspid Valve Pulmonic Valve Pericardium Aorta CONCLUSIONS Left ventricular hypertrophy with preserved systolic function No anterior wall hypokinesis Technical mild mitral leaflets Aortic sclerosis Previewed by: Dr. Austin Haskins MD (Electronically Signed) Final Date: 09 October 2021 17:15
--- NOTE | 2021-10-09 18:51 | P.DS ---
Providers Date of admission: 10/08/21 11:23 Expected date of discharge: 10/09/21 Attending physician: Serina Campbell MD Consults: 10/06/21 21:20 Consult Physician Urgent Consulting Provider: [facility] Consult Reason/Comments: acute chest pain, possible acs Do you want consulting provider notified?: Yes Primary care physician: [facility] Course: Discharge Diagnosis: NSTEMI, cardiac cath completed revealed patent LAD stent with only 30-40% proximal LAD stenosis similar to prior intervention. Cardiology recommending continued cardiac medication regimen. Patient was started on long-acting nitro, Imdur. Episodes of chest pain with no ischemic changes on EKG concerning for vasospasms, patient was started on Imdur and verapamil and had no further episodes of chest pain or discomfort. Repeat echocardiogram was completed revealing a normal EF of 55-60% with no anterior wall hypokinesis and normal left ventricular wall motion. Repeat troponins negative. Patient recommended to follow-up outpatient with PCP in 1-2 days and cardiology in 1 week. CAD with recent STEMI 08/10/21 status post PCI to LAD Moderate left ventricular hypertrophy Moderate to severe mitral calcification and mitral stenosis Aortic stenosis Hypertension. Monitor vital signs and continue daily medication regimen with lisinopril and verapamil. Hyperlipidemia. Continue daily medication regimen with atorvastatin. Hypothyroidism. Continue daily medication regimen with levothyroxine. COPD/asthma, not in acute exacerbation. Continue Singulair and Symbicort daily Hospital Course: The patient is a 81-year-old female with a PMH of hypertension, hyperlipidemia, mitral valve prolapse, systolic CHF, CAD status post STEMI in 08/10/21 status post PCI to LAD presents to the emergency room with complaints of chest discomfort. The patient reports that she was at home resting comfortably when she suddenly developed a pressure-like substernal chest discomfort, 10 out of 10, with associated palpitations, radiating up into the head. She reports that D Gonzalez improved her pain, and at time of interview it had improved to a 3 out of 10. She denied extremity shortness of breath, nausea, diaphoresis, dizziness, or vomiting. Reports the pain is somewhat similar to when she had her [place] last month. Denied experiencing orthopnea, PND, lower extremity edema, fever, chills, cough, abdominal pain, diarrhea. EKG in the emergency room reveals sinus rhythm at 88 bpm with left axis deviation. Chest x-ray revealed cardiomegaly with pulmonary vascular congestion. Laboratory evaluation was remarkable for troponin of 0.025 and proBNP 79. Patient was admitted under our services with consultation to cardiology. After admission it was noted patient's repeat troponin elevated from 0.025-0.061 patient was started on IV heparin per ACS protocol for NSTEMI. Third troponin resulting at 0.058. Echocardiogram completed revealing normal EF of 60-65% with mild to moderate LVH, moderate to severe mitral calcification, moderate to severe mitral stenosis, and mild aortic regurgitation and stenosis. Cardiology evaluated and took pt for cardiac cath on 10/07/21 . Cardiac cath revealed patent LAD stent with only 30-40% proximal LAD stenosis similar to prior intervention. Concerned that symptoms of chest pressure and mildly elevated troponins were a result of mitral stenosis and they are recommending aggressive rate controlling regimen with increasing beta rosario and monitoring response. Patient again monitored overnight and additional medication changes were made by cardiology. Patient being started on verapamil and metoprolol has been discontinued. A repeat Echocardiogram was completed to evaluate for any new wall motion abnormalities. Echocardiogram revealing normal EF of 55-60% with no anterior wall hypokinesis and normal left ventricular wall motion. Cardiology recommending patient outpatient follow-up in the office in one week. Patient medically stable for discharge at this time and currently remains free from any chest pain or complaints prescriptions for Imdur and verapamil.were sent to [facility] per patient's request. Patient medically stable and follow up outpatient with PCP in 1-2 days and cardiology in 1 week. Physical examination: General: non toxic, no distress, appears at stated age. Thin build. Derm: warm, dry Head: atraumatic, normocephalic, symmetric Eyes: EOMI, no lid lag, anicteric sclera Mouth: no lip lesion, mucus membranes moist Cardiovascular: S1S2 reg, systolic murmur, positive posterior tibial pulse bilateral, Lungs: CTA bilateral, no rhonchi, no rales , no accessory muscle use Abdominal: soft, nontender to palpation, no guarding, no appreciable organomegaly Ext: no gross muscle atrophy, no edema, no contractures Neuro: CN II-XI grossly intact, no focal neuro deficits Psych: Alert, oriented, appropriate affect A total of 39 minutes of time were spent preparing this complex discharge summary. Pt was discharged on 10/09/21 at 6:37 PM. Patient Condition at Discharge: Stable Plan - Discharge Summary Discharge Rx Participant: No New Discharge Prescriptions: New Isosorbide Mononitrate ER [Imdur] 30 mg PO DAILY 30 Days #30 tab Verapamil [Isoptin] 40 mg PO TID 30 Days #90 tab Continue Omeprazole 20 mg PO DAILY Multivit-Min/FA/Lycopen/Lutein [Centrum Silver Tablet] 1 tab PO DAILY Budesonide-Formot 160-4.5 Mcg [Symbicort 160-4.5 Mcg Inhaler] 2 puff INHALATION RT-BID #1 inhaler Ipratropium-Albuterol Nebulize [Duoneb 0.5 mg-3 mg/3 ml Soln] 3 ml INHALATION RT-BID PRN PRN Reason: Shortness Of Breath Aspirin 81 mg PO DAILY #30 tab Nitroglycerin Sl Tabs [Nitrostat] 0.4 mg SUBLINGUAL Q5M PRN #14 tab PRN Reason: Chest Pain Clopidogrel [Plavix] 75 mg PO DAILY #30 tab Empagliflozin [Jardiance] 10 mg PO DAILY modafiniL [Provigil] 100 mg PO DAILY PRN PRN Reason: Motion Sickness [place]-3 Acid Ethyl Esters [Lovaza] 2 gm PO BID Magnesium Oxide [Darden] 500 mg PO DAILY Levothyroxine Sodium [Synthroid] 112 mcg PO DAILY Cholecalciferol [Vitamin D3 (25 Mcg = 1000 Iu)] 50 mcg PO DAILY Montelukast [Singulair] 10 mg PO DAILY Albuterol Inhaler [Ventolin Hfa Inhaler] 2 puff INHALATION RT-QID PRN PRN Reason: Shortness Of Breath Alendronate Sodium [Fosamax] 70 mg PO MO Atorvastatin [Lipitor] 80 mg PO HS #30 tab ALPRAZolam [Xanax] 0.25 mg PO Q8HR PRN PRN Reason: Anxiety lisinopriL [Zestril] 10 mg PO HS Discontinued Metoprolol Tartrate [Lopressor] 12.5 mg PO BID Discharge Medication List Multivit-Min/FA/Lycopen/Lutein [Centrum Silver Tablet] 1 tab PO DAILY 03/29/16 [History] Omeprazole 20 mg PO DAILY 03/29/16 [History] Budesonide-Formot 160-4.5 Mcg [Symbicort 160-4.5 Mcg Inhaler] 2 puff INHALATION RT-BID #1 inhaler 04/06/16 [Rx] Albuterol Inhaler [Ventolin Hfa Inhaler] 2 puff INHALATION RT-QID PRN 08/09/21 [History] Alendronate Sodium [Fosamax] 70 mg PO MO 08/09/21 [History] Cholecalciferol [Vitamin D3 (25 Mcg = 1000 Iu)] 50 mcg PO DAILY 08/09/21 [History] Ipratropium-Albuterol Nebulize [Duoneb 0.5 mg-3 mg/3 ml Soln] 3 ml INHALATION RT-BID PRN 08/09/21 [History] Levothyroxine Sodium [Synthroid] 112 mcg PO DAILY 08/09/21 [History] Magnesium Oxide [Darden] 500 mg PO DAILY 08/09/21 [History] Montelukast [Singulair] 10 mg PO DAILY 08/09/21 [History] [place]-3 Acid Ethyl Esters [Lovaza] 2 gm PO BID 08/09/21 [History] Aspirin 81 mg PO DAILY #30 tab 08/11/21 [Rx] Atorvastatin [Lipitor] 80 mg PO HS #30 tab 08/11/21 [Rx] Clopidogrel [Plavix] 75 mg PO DAILY #30 tab 08/11/21 [Rx] Nitroglycerin Sl Tabs [Nitrostat] 0.4 mg SUBLINGUAL Q5M PRN #14 tab 08/11/21 [Rx] ALPRAZolam [Xanax] 0.25 mg PO Q8HR PRN 10/06/21 [History] Empagliflozin [Jardiance] 10 mg PO DAILY 10/06/21 [History] lisinopriL [Zestril] 10 mg PO HS 10/06/21 [History] modafiniL [Provigil] 100 mg PO DAILY PRN 10/06/21 [History] Isosorbide Mononitrate ER [Imdur] 30 mg PO DAILY 30 Days #30 tab 10/09/21 [Rx] Verapamil [Isoptin] 40 mg PO TID 30 Days #90 tab 10/09/21 [Rx] Follow up Appointment(s)/Referral(s): Kaleb Jain DO [STAFF PHYSICIAN] - 1 Week Paul Bonilla DO [Primary Care Provider] - 1-2 days Patient Instructions/Handouts: Verapamil (By mouth), Angina (DC), Chest Pain (DC) Activity/Diet/Wound Care/Special Instructions: Activity: As tolerated. Take breaks as needed. Diet: Heart healthy and carb consistent diet. Avoid salts, or foods with hidden salts such as canned or boxed foods and frozen dinners. Extra salt makes your heart work harder and traps the fluid in your body for longer. Special Instructions: Take all of your medications as directed and remember to keep all of your doctor's appointments and follow-up as needed. Metoprolol has been discontinued do not resume this medication. You have been started on verapamil and isosorbide mononitrate. These prescriptions have been sent to [facility], please take as directed. Thank you for allowing us to participate in your care, it was truly a pleasure having you for our patient!!! Discharge Disposition: HOME SELF-CARE
== END 2021-10-09 19:10 | disposition home or self-care (01) | DRG 281 ==
LOC: EC 19:20 → 6NMEDSUR 21:14 → OBSVTOIN 10-08 11:23
PROVIDERS: ADMIT Internal Medicine; ATTEND Internal Medicine
PROC: B2111ZZ Fluoroscopy of Multiple Coronary Arteries using Low Osmolar Contrast (ICD-10-PCS; 2021-10-07)
PROC: B246ZZ4 Ultrasonography of Right and Left Heart, Transesophageal (ICD-10-PCS; 2021-10-07)
PROC: 4A023N7 Measurement of Cardiac Sampling and Pressure, Left Heart, Percutaneous Approach (ICD-10-PCS; principal; 2021-10-07 16:00)
PROC: B246ZZ4 Ultrasonography of Right and Left Heart, Transesophageal (ICD-10-PCS; 2021-10-09)
DX: I21.4 Non-ST elevation (NSTEMI) myocardial infarction (principal); I50.22 Chronic systolic (congestive) heart failure; E03.9 Hypothyroidism, unspecified; J44.9 Chronic obstructive pulmonary disease, unspecified; E78.5 Hyperlipidemia, unspecified; I25.119 Atherosclerotic heart disease of native coronary artery with unspecified angina pectoris; I08.0 Rheumatic disorders of both mitral and aortic valves; I34.1 Nonrheumatic mitral (valve) prolapse; M06.9 Rheumatoid arthritis, unspecified; I11.0 Hypertensive heart disease with heart failure; I25.2 Old myocardial infarction; R73.03 Prediabetes; Z79.02 Long term (current) use of antithrombotics/antiplatelets; Z79.51 Long term (current) use of inhaled steroids; Z79.82 Long term (current) use of aspirin; Z79.83 Long term (current) use of bisphosphonates; Z79.84 Long term (current) use of oral hypoglycemic drugs; Z79.890 Hormone replacement therapy; Z79.899 Other long term (current) drug therapy; Z95.5 Presence of coronary angioplasty implant and graft; Z96.651 Presence of right artificial knee joint; Z88.1 Allergy status to other antibiotic agents; Z88.8 Allergy status to other drugs, medicaments and biological substances
CPT/HCPCS: 36415; 71046; 80048; 80053; 82272; 83690; 83735; 83880; 84484; 85025; 85610; 85730; 93005; 93306; 93308; 93458; 94640; 96374; 99285

== ENCOUNTER → 2022-03-13 | Outpatient (CLI) | payer MEDICARE, BC ==
[2022-03-13 14:30] LABS: HCT 43.4 % (37.2-46.3); HGB 12.9 g/dL (12.0-15.0); MCH 30.2 pg (27.0-32.0); MCHC 29.7 g/dL (32.0-37.0); MCV 101.6 fL (80.0-97.0); Mean Platelet Volume 9.9 fL (9.5-12.2); NRBC Per 100 WBC 0 /100 WBCS (0.0-0.0); Platelet Count 402 X 10*3/uL (140-440); RBC 4.27 X 10*6/uL (4.10-5.20); RDW 15.4 % (11.5-14.5); WBC 21.06 X 10*3/uL (4.50-10.00)
[2022-03-13 14:46] LABS: African American GFR (CKD) 57.2 (60.0-200.0); Albumin 3.6 g/dL (3.8-4.9); Anion Gap 8.1 mmol/L (10.00-18.00); BUN/Creat Ratio 23.93 Ratio (12.00-20.00); Blood Urea Nitrogen 25.6 mg/dL (9.0-27.0); Calcium 10.5 mg/dL (8.7-10.3); Carbon Dioxide 33.2 mmol/L (20.0-27.5); Non-African American GFR(CKD) 49.3 (60.0-200.0); Phosphorus 3.8 mg/dL (2.4-5.1); Potassium 4.3 mmol/L (3.5-5.5)
== END | disposition home or self-care (01) ==
LOC: LABWHC1 09:22
PROVIDERS: ATTEND Internal Medicine
DX: I50.9 Heart failure, unspecified (principal); R06.02 Shortness of breath
CPT/HCPCS: 36415; 80069; 83880; 85027

== ENCOUNTER 2022-03-19 09:25 | Observation (INO) | payer MEDICARE, BC ==
[2022-03-19] MEDS ORDERED: ASPIRIN 81 MG PO STA (09:27)
--- NOTE | 2022-03-19 09:31 | ED ---
General Adult HPI - General Stated complaint: chest pain, SOB Time Seen by Provider: 03/19/22 09:28 Source: patient, RN notes reviewed Mode of arrival: ambulatory Limitations: no limitations - History of Present Illness Initial comments: This is a 81 year old female that presents to the emergency Department which he went chest pain. Patient states pain started this morning. Patient states that she's had a prior MN with 3 cardiac stents. Patient's nutrition aide is Dr. Jain. Patient states that she had lab work 6 days ago showed elevated white count. She has mild cough. Patient did take 81 mg aspirins morning. Patient states she took 2 nitro with helped her pain. Patient states pain centralized substernal radiates to her back. - Related Data Home Medications Medication Instructions Recorded Confirmed Multivit-Min/FA/Lycopen/Lutein 1 tab PO DAILY 03/29/16 10/06/21 [Centrum Silver Tablet] Omeprazole 20 mg PO DAILY 03/29/16 10/06/21 Albuterol Inhaler [Ventolin Hfa 2 puff INHALATION RT-QID PRN 08/09/21 10/06/21 Inhaler] Alendronate Sodium [Fosamax] 70 mg PO MO 08/09/21 10/06/21 Cholecalciferol [Vitamin D3 (25 50 mcg PO DAILY 08/09/21 10/06/21 Mcg = 1000 Iu)] Ipratropium-Albuterol Nebulize 3 ml INHALATION RT-BID PRN 08/09/21 10/06/21 [Duoneb 0.5 mg-3 mg/3 ml Soln] Levothyroxine Sodium [Synthroid] 112 mcg PO DAILY 08/09/21 10/06/21 Magnesium Oxide [Darden] 500 mg PO DAILY 08/09/21 10/06/21 Montelukast [Singulair] 10 mg PO DAILY 08/09/21 10/06/21 Bartlett-3 Acid Ethyl Esters [Lovaza] 2 gm PO BID 08/09/21 10/06/21 ALPRAZolam [Xanax] 0.25 mg PO Q8HR PRN 10/06/21 10/06/21 Empagliflozin [Jardiance] 10 mg PO DAILY 10/06/21 10/06/21 lisinopriL [Zestril] 10 mg PO HS 10/06/21 10/06/21 modafiniL [Provigil] 100 mg PO DAILY PRN 10/06/21 10/06/21 Previous Rx's Medication Instructions Recorded Budesonide-Formot 160-4.5 Mcg 2 puff INHALATION RT-BID #1 inhaler 04/06/16 [Symbicort 160-4.5 Mcg Inhaler] Aspirin 81 mg PO DAILY #30 tab 08/11/21 Atorvastatin [Lipitor] 80 mg PO HS #30 tab 08/11/21 Clopidogrel [Plavix] 75 mg PO DAILY #30 tab 08/11/21 Nitroglycerin Sl Tabs [Nitrostat] 0.4 mg SUBLINGUAL Q5M PRN #14 tab 08/11/21 Isosorbide Mononitrate ER [Imdur] 30 mg PO DAILY 30 Days #30 tab 10/09/21 Verapamil [Isoptin] 40 mg PO TID 30 Days #90 tab 10/09/21 Allergies Allergy/AdvReac Type Severity Reaction Status Date / Time clarithromycin [From Biaxin] Allergy Unknown Verified 03/19/22 09:32 gemifloxacin [From Factive] Allergy Unknown Verified 03/19/22 09:32 prednisone Allergy Unknown Verified 03/19/22 09:32 amoxicillin [From Augmentin] AdvReac Nausea & Verified 03/19/22 09:32 Vomiting & Diarrhea clavulanic acid AdvReac Nausea & Verified 03/19/22 09:32 [From Augmentin] Vomiting & Diarrhea Review of Systems ROS Statement: Those systems with pertinent positive or pertinent negative responses have been documented in the HPI. ROS Other: All systems not noted in ROS Statement are negative. Past Medical History Past Medical History: Heart Failure, Hyperlipidemia, Hypertension, Mitral Valve Prolapse (MVP), Rheumatoid Arthritis (RA), Thyroid Disorder Additional Past Medical History / Comment(s): HAD A PNE VACCINE AFTER AGE 67 BUT NOT SURE OF DATE,OFFICE CLOSED AT TIME OF THIS ADMIT. History of Any Multi-Drug Resistant Organisms: None Reported Past Surgical History: Section, Orthopedic Surgery Additional Past Surgical History / Comment(s): total right knee replacement Past Anesthesia/Blood Transfusion Reactions: No Reported Reaction Additional Past Anesthesia/Blood Transfusion Reaction / Comment(s): clausterphobia Past Psychological History: No Psychological Hx Reported Smoking Status: Never smoker Past Alcohol Use History: Occasional Past Drug Use History: None Reported - Past Family History Father Additional Family Medical History / Comment(s): smoker-had problems related to that Mother Additional Family Medical History / Comment(s): smoker-problems related to that General Exam Limitations: no limitations General appearance: alert, in no apparent distress Head exam: Present: atraumatic, normocephalic, normal inspection Eye exam: Present: normal appearance, PERRL, EOMI. Absent: scleral icterus, conjunctival injection, periorbital swelling ENT exam: Present: normal exam, normal oropharynx, mucous membranes moist Neck exam: Present: normal inspection. Absent: tenderness, meningismus, lymphadenopathy Respiratory exam: Present: decreased breath sounds. Absent: normal lung sounds bilaterally, respiratory distress, wheezes, rales, rhonchi, stridor Cardiovascular Exam: Present: regular rate, normal rhythm, normal heart sounds. Absent: systolic murmur, diastolic murmur, rubs, gallop, clicks GI/Abdominal exam: Present: soft, normal bowel sounds. Absent: distended, tenderness, guarding, rebound, rigid Neurological exam: Present: alert Skin exam: Present: warm, dry, intact, normal color. Absent: rash Course Vital Signs 03/19/22 03/19/22 09:30 10:00 Temperature 98 F Pulse Rate 90 86 Respiratory 18 18 Rate Blood Pressure 107/65 151/72 O2 Sat by Pulse 91 L 90 L Oximetry EKG Findings - EKG Comments: EKG Findings:: EKG performed at 9:42 sinus rhythm rate of 88 NJ 165 QRS 71 QT/QTC 346/391 - EKG Results: EKG: interpreted by KARLENE Medical Decision Making - Medical Decision Making Was pt. sent in by a medical professional or institution (, PA, PAYROLL ACCOUNTANT, urgent care, hospital, or [place] [facility]...) When possible be specific @ -No Did you speak to anyone other than the patient for history (EMS, parent, family, police, friend...)? What history was obtained from this source @ -No Did you review nursing and triage notes (agree or disagree)? Why? @ -I reviewed and agree with nursing and triage notes Were old charts reviewed (outside hosp., previous admission, EMS record, old EKG, old radiological studies, urgent care reports/EKG's, [place] [facility] [place] records)? Report findings @ -No old charts were reviewed Differential Diagnosis (chest pain, altered mental status, abdominal pain women, abdominal pain men, vaginal bleeding, weakness, fever, dyspnea, syncope, headache, dizziness, GI bleed, back pain, seizure, CVA, palpatations, mental health)? @ -Chest pain, pneumonia, CHF, URI, this is not an all inclusive list EKG interpreted by me (3pts min.). @ -As above X-rays interpreted by me (1pt min.). @ -Chest x-ray shows evidence of mild pulmonary edema, no other acute changes CT interpreted by me (1pt min.). @ -None done U/S interpreted by me (1pt. min.). @ -None done What testing was considered but not performed or refused? (CT, X-rays, U/S, labs)? Why? @ -None What meds were considered but not given or refused? Why? @ -None Did you discuss the management of the patient with other professionals (professionals i.e. , PA, PAYROLL ACCOUNTANT, lab, RT, psych nurse, social services manager, corporate quality manager, teacher, agricultural extension officer, supportive employment case manager)? Give summary @ -Hospitalist- patient be admitted for further cardiac workup, evaluation of leukocytosis. Was smoking cessation discussed for >3mins.? @ -No Was critical care preformed (if so, how long)? @ -No Were there social determinants of health that impacted care today? How? (Homelessness, low income, unemployed, alcoholism, drug addiction, transportation, low edu. Level, literacy, decrease access to med. care, [place] [facility], rehab)? @ -No Was there de-escalation of care discussed even if they declined (Discuss DNR or withdrawal of care, Hospice)? DNR status @ -No What co-morbidities impacted this encounter? (DM, HTN, Smoking, COPD, CAD, Cancer, CVA, ARF, Chemo, Hep., AIDS, mental health diagnosis, sleep apnea, mo rbid obesity)? @ -CAD Was patient admitted / discharged? Hospital course, mention meds given and route, prescriptions, significant lab abnormalities, going to OR and other pertinent info. @ -hospital course Undiagnosed new problem with uncertain prognosis? @ -No Drug Therapy requiring intensive monitoring for toxicity (Heparin, Nitro, Insulin, Cardizem)? @ -No Were any procedures done? @ -No Diagnosis/symptom? @ -Chest pain Acute, or Chronic, or Acute on Chronic? @ -acute Uncomplicated (without systemic symptoms) or Complicated (systemic symptoms)? @ -Uncomplicated Side effects of treatment? @ -No Exacerbation, Progression, or Severe Exacerbation? @ -No Poses a threat to life or bodily function? How? (Chest pain, [place], [place], pneumonia, PE, COPD, DKA, ARF, appy, cholecystitis, CVA, Diverticulitis, Homicidal, Jesenia cidal, threat to staff... and all critical care pts) @ -Yes Diagnosis/symptom? @ -Leukocytosis Acute, or Chronic, or Acute on Chronic? @ -acute Uncomplicated (without systemic symptoms) or Complicated (systemic symptoms)? @ -Uncomplicated Side effects of treatment? @ -none Exacerbation, Progression, or Severe Exacerbation] @ -no Poses a threat to life or bodily function? @ -yes - Lab Data Result diagrams: 03/19/22 10:09 03/19/22 10:09 Lab Results 03/19/22 03/19/22 03/19/22 Range/Units 10:09 10: 10:09 WBC 28.8 H (3.8-10.6) k/uL RBC 4.00 (3.80-5.40) m/uL Hgb 12.6 (11.4-16.0) gm/dL Hct 39.0 (34.0-46.0) % MCV 97.4 (80.0-100.0) fL MCH 31.5 (25.0-35.0) pg MCHC 32.3 (31.0-37.0) g/dL RDW 14.7 (11.5-15.5) % Plt Count 412 (150-450) k/uL MPV 7.6 Neutrophils % (Manual) 82 % Lymphocytes % (Manual) 7 % Monocytes % (Manual) 11 % Neutrophils # (Manual) 23.62 H (1.3-7.7) k/uL Lymphocytes # (Manual) 2.02 (1.0-4.8) k/uL Monocytes # (Manual) 3.17 H (0-1.0) k/uL Nucleated RBCs 0 (0-0) /100 WBC Manual Slide Review Performed Hypochromasia Moderate PT 10.6 (9.0-12.0) sec INR 1.0 (<1.2) APTT 23.8 (22.0-30.0) sec Sodium 137 (137-145) mmol/L Potassium 4.3 (3.5-5.1) mmol/L Chloride 103 (98-107) mmol/L Carbon Dioxide 27 (22-30) mmol/L Anion Gap 7 mmol/L BUN 18 H (7-17) mg/dL Creatinine 0.87 (0.52-1.04) mg/dL Est GFR (CKD-EPI)AfAm 73 (>60 ml/min/1.73 sqM) Est GFR (CKD-EPI)NonAf 64 (>60 ml/min/1.73 sqM) Glucose 115 H (74-99) mg/dL Calcium 8.8 (8.4-10.2) mg/dL Magnesium 1.9 (1.6-2.3) mg/dL Total Bilirubin 1.0 (0.2-1.3) mg/dL AST 47 H (14-36) U/L ALT 33 (4-34) U/L Alkaline Phosphatase 94 (38-126) U/L Troponin I (0.000-0.034) ng/mL NT-Pro-B Natriuret Pep pg/mL Total Protein 7.4 (6.3-8.2) g/dL Albumin 3.7 (3.5-5.0) g/dL Urine Color Urine Appearance (Clear) Urine pH (5.0-8.0) Ur Specific Barton (1.001-1.035) Urine Protein (Negative) Urine Glucose (UA) (Negative) Urine Ketones (Negative) Urine Blood (Negative) Urine Nitrite (Negative) Urine Bilirubin (Negative) Urine Urobilinogen (<2.0) mg/dL Ur Leukocyte Esterase (Negative) Urine RBC (0-5) /hpf Urine WBC (0-5) /hpf Ur Squamous Epith Cells (0-4) /hpf 03/19/22 03/19/22 03/19/22 Range/Units 10:09 10:09 11:40 WBC (3.8-10.6) k/uL RBC (3.80-5.40) m/uL Hgb (11.4-16.0) gm/dL Hct (34.0-46.0) % MCV (80.0-100.0) fL MCH (25.0-35.0) pg MCHC (31.0-37.0) g/dL RDW (11.5-15.5) % Plt Count (150-450) k/uL MPV Neutrophils % (Manual) % Lymphocytes % (Manual) % Monocytes % (Manual) % Neutrophils # (Manual) (1.3-7.7) k/uL Lymphocytes # (Manual) (1.0-4.8) k/uL Monocytes # (Manual) (0-1.0) k/uL Nucleated RBCs (0-0) /100 WBC Manual Slide Review Hypochromasia PT (9.0-12.0) sec INR (<1.2) APTT (22.0-30.0) sec Sodium (137-145) mmol/L Potassium (3.5-5.1) mmol/L Chloride (98-107) mmol/L Carbon Dioxide (22-30) mmol/L Anion Gap mmol/L BUN (7-17) mg/dL Creatinine (0.52-1.04) mg/dL Est GFR (CKD-EPI)AfAm (>60 ml/min/1.73 sqM) Est GFR (CKD-EPI)NonAf (>60 ml/min/1.73 sqM) Glucose (74-99) mg/dL Calcium (8.4-10.2) mg/dL Magnesium (1.6-2.3) mg/dL Total Bilirubin (0.2-1.3) mg/dL AST (14-36) U/L ALT (4-34) U/L Alkaline Phosphatase (38-126) U/L Troponin I <0.012 (0.000-0.034) ng/mL NT-Pro-B Natriuret Pep 799 pg/mL Total Protein (6.3-8.2) g/dL Albumin (3.5-5.0) g/dL Urine Color Yellow Urine Appearance Clear (Clear) Urine pH 5.5 (5.0-8.0) Ur Specific Barton 1.031 (1.001-1.035) Urine Protein Negative (Negative) Urine Glucose (UA) 4+ H (Negative) Urine Ketones Negative (Negative) Urine Blood Negative (Negative) Urine Nitrite Negative (Negative) Urine Bilirubin Negative (Negative) Urine Urobilinogen <2.0 (<2.0) mg/dL Ur Leukocyte Esterase Trace H (Negative) Urine RBC 2 (0-5) /hpf Urine WBC 7 H (0-5) /hpf Ur Squamous Epith Cells <1 (0-4) /hpf Disposition Clinical Impression: Leukocytosis, Chest pain Disposition: ADMITTED IP TO THIS HOSP Referrals: Paul Bonilla DO [Primary Care Provider] - 1-2 days Time of Disposition: 12:19
[2022-03-19 10:19] LABS: HGB 12.6 gm/dL (11.4-16.0); Hypochromasia Moderate; MCH 31.5 pg (25.0-35.0); MCHC 32.3 g/dL (31.0-37.0); MCV 97.4 fL (80.0-100.0); Mean Platelet Volume 7.6; Platelet Count 412 k/uL (150-450); RDW 14.7 % (11.5-15.5); WBC 28.8 k/uL (3.8-10.6)
[2022-03-19 10:28] LABS: Albumin 3.7 g/dL (3.5-5.0); Calcium 8.8 mg/dL (8.4-10.2); Magnesium 1.9 mg/dL (1.6-2.3); Total Protein 7.4 g/dL (6.3-8.2)
[2022-03-19 10:32] LABS: Potassium 4.3 mmol/L (3.5-5.1)
[2022-03-19 10:40] LABS: Partial Thromboplastin Time 23.8 sec (22.0-30.0); Prothrombin Time 10.6 sec (9.0-12.0)
--- NOTE | 2022-03-19 10:40 | XR ---
EXAMINATION TYPE: XR chest 2V DATE OF EXAM: 03/19/2022 10:28 AM COMPARISON: Chest radiographs from; 2922 TECHNIQUE: XR chest 2V Frontal and lateral views of the chest. CLINICAL INDICATION:Female, 81 years old with history of Chest Pain; FINDINGS: Lungs/Pleura: There is no evidence of pleural effusion, focal consolidation, or pneumothorax. Pulmonary vascularity: Pulmonary vascular congestion. Heart/mediastinum: Cardiomediastinal silhouette is enlarged and stable. Musculoskeletal: No acute osseous pathology. IMPRESSION: Cardiomegaly with pulmonary vascular congestion correlate for CHF exacerbation.
[2022-03-19 11:09] LABS: Lymphocytes # (M) 2.02 k/uL (1.0-4.8); Monocytes # (M) 3.17 k/uL (0-1.0); Neutrophils # (M) 23.62 k/uL (1.3-7.7); Neutrophils % (M) 82 %; Nucleated Red Blood Cells 0 /100 WBC (0-0); Total Cells Counted 100
[2022-03-19 12:08] LABS: Appearance,Urine Clear (Clear); Bilirubin,Urine Negative (Negative); Blood,Urine Negative (Negative); Color,Urine Yellow; Glucose,Urine (UA) 4+ (Negative); Ketones,Urine Negative (Negative); Leukocyte Esterase,Urine Trace (Negative); Nitrite,Urine Negative (Negative); PH, Urine 5.5 (5.0-8.0); Protein,Urine Negative (Negative); RBC,Urine 2 /hpf (0-5); Specific Gravity,Urine 1.031 (1.001-1.035); Squamous Epithelial Cell,Urine <1 /hpf (0-4); Urobilinogen,Urine <2.0 mg/dL (<2.0); WBC,Urine 7 /hpf (0-5)
[2022-03-19] MEDS ORDERED: NITROGLYCERIN SL TABS 0.4 MG TAB SUBLINGUAL PRN ×2 (12:25→15:07)
--- NOTE | 2022-03-19 14:09 | P.CRDCN ---
History of Present Illness Consult date: 03/19/22 Consult reason: chest pain History of present illness: HISTORY OF PRESENTING ILLNESS Patient is a 81-year-old female patient of Dr. Jain with history of hypertension and hyperlipidemia borderline diabetes mellitus CAD status post anterior STEMI August 2021, rheumatoid arthritis. Patient was hospitalized in September 2021 for non-ST elevated myocardial infarction underwent cardiac catheterization at that time which revealed minimal luminal irregularities, patent LAD stent with only 30-40% proximal LAD stenosis similar to prior intervention. We have been asked to see the patient for chest pain. Patient presented to the emergency center with chest pain that started while she was in bed at 6 AM. She also states she felt her ears racing and she had shortness of breath and some cough. Yesterday, she had sputum production following nebulizer treatment but no sputum production today. She states she recently was seen by Dr. Jain in the office and he had ordered blood work which surprisingly came back with elevated white count of 21. Patient does state she was on steroids between and for bronchitis possible pneumonia. When she was seen Dr. Jain, he increased her blood pressure medicine and added a wate r pill which she took for 5 days and completed the course on Saturday. Patient complains of feeling somewhat lightheaded with the chest pain, no nausea no diaphoresis. Chest pain was in the midsternal area and she is now feeling well and does not seem to have any pain. She is not sure what relieved her pain but could be nitroglycerin although she still had the pain when she arrived to the emergency center. Oxygen may have helped. EKG is a sinus rhythm at 88 bpm WBC 28.8, hemoglobin 12.6, platelet count 412. INR 1.0. Potassium 4.3, BUN 18 and creatinine 0.87. Troponin negative 1. ProBNP 799. AST 47 otherwise liver function tests are within normal limits. Chest x-ray reveals cardiomegaly with pulmonary vascular congestion correlate for heart failure exacerbation Home cardiac medications include aspirin 81 mg daily, atorvastatin 80 mg at bedtime, Plavix 75 mg daily Imdur 30 mg daily, Toprol-XL 100 mg daily, verapamil 120 mg daily, jardiance 10 mg daily Limited echocardiograms 10/09/2021: EF 55-60%, left ventricular hypertrophy, aortic sclerosis. REVIEW OF SYSTEMS At the time of my exam: CONSTITUTIONAL: Denies fever or chills. CARDIOVASCULAR: Denies chest pain, No shortness of breath, orthopnea, PND or palpitations. RESPIRATORY: Reports cough. GASTROINTESTINAL: Denies abdominal pain, diarrhea, constipation, nausea or vomiting. MUSCULOSKELETAL: Denies myalgias. NEUROLOGIC: Denies numbness, tingling or weakness. ENDOCRINE: Denies fatigue, weight change, polydipsia or polyurina. GENITOURINARY: Denies burning, hematuria or urgency with micturation. HEMATOLOGIC: Denies history of anemia or bleeding. PHYSICAL EXAMINATION Vital signs reviewed. CONSTITUTIONAL: No apparent distress. HEENT: Head is normocephalic. Pupils are equal, round. Sclerae anicteric. Mucous membranes of the mouth are moist. No JVD. No carotid bruit. CHEST EXAMINATION: Scattered rhonchi. No wheezing. HEART EXAMINATION: Regular rate and rhythm. S1, S2 heard. No murmurs, gallops or rub. ABDOMEN: Soft, nontender. Positive bowel sounds. EXTREMITIES: 2+ peripheral pulses, no lower extremity edema and no calf tenderness. NEUROLOGIC EXAMINATION: Patient is awake, alert and oriented x3. ASSESSMENT Chest pain rule out acute coronary syndrome with serial troponins Leukocytosis possibly related to recent bronchitis/pneumonia, possibly related to steroids CAD with prior history of STEMI and PCI of LAD August 2021 Hypertension Moderate to severe mitral stenosis by prior echo Aortic stenosis Rheumatoid arthritis Diabetes mellitus PLAN Resume patient's home cardiac medications Serial troponins Further recommendations based on patient's progress Thank you kindly for this consultation. Nurse practitioner note has been reviewed, I agree with the documented findings and plan of care. Patient was seen and examined. Past Medical History Past Medical History: Heart Failure, Hyperlipidemia, Hypertension, Mitral Valve Prolapse (MVP), Rheumatoid Arthritis (RA), Thyroid Disorder Additional Past Medical History / Comment(s): HAD A PNE VACCINE AFTER AGE 67 BUT NOT SURE OF DATE,OFFICE CLOSED AT TIME OF THIS ADMIT. History of Any Multi-Drug Resistant Organisms: None Reported Past Surgical History: Section, Orthopedic Surgery Additional Past Surgical History / Comment(s): total right knee replacement Past Anesthesia/Blood Transfusion Reactions: No Reported Reaction Additional Past Anesthesia/Blood Transfusion Reaction / Comment(s): clausterphobia Past Psychological History: No Psychological Hx Reported Smoking Status: Never smoker Past Alcohol Use History: Occasional Past Drug Use History: None Reported - Past Family History Father Additional Family Medical History / Comment(s): smoker-had problems related to that Mother Additional Family Medical History / Comment(s): smoker-problems related to that Medications and Allergies Home Medications Medication Instructions Recorded Confirmed Type Multivit-Min/FA/Lycopen/Lutein 1 tab PO DAILY 03/29/16 03/19/22 History [Centrum Silver Tablet] Omeprazole 20 mg PO DAILY 03/29/16 03/19/22 History Budesonide-Formot 160-4.5 Mcg 2 puff INHALATION RT-BID #1 inhaler 04/06/16 03/19/22 Rx [Symbicort 160-4.5 Mcg Inhaler] Albuterol Inhaler [Ventolin Hfa 2 puff INHALATION RT-QID PRN 08/09/21 03/19/22 History Inhaler] Alendronate Sodium [Fosamax] 70 mg PO MO 08/09/21 03/19/22 History Cholecalciferol [Vitamin D3 (25 50 mcg PO DAILY 08/09/21 03/19/22 History Mcg = 1000 Iu)] Ipratropium-Albuterol Nebulize 3 ml INHALATION RT-BID PRN 08/09/21 03/19/22 History [Duoneb 0.5 mg-3 mg/3 ml Soln] Levothyroxine Sodium [Synthroid] 112 mcg PO MOTUWETHFR 08/09/21 03/19/22 History Magnesium Oxide [Darden] 500 mg PO DAILY 08/09/21 03/19/22 History Montelukast [Singulair] 10 mg PO DAILY 08/09/21 03/19/22 History Aspirin 81 mg PO DAILY #30 tab 08/11/21 03/19/22 Rx Atorvastatin [Lipitor] 80 mg PO HS #30 tab 08/11/21 03/19/22 Rx Clopidogrel [Plavix] 75 mg PO DAILY #30 tab 08/11/21 03/19/22 Rx Nitroglycerin Sl Tabs [Nitrostat] 0.4 mg SUBLINGUAL Q5M PRN #14 tab 08/11/21 03/19/22 Rx ALPRAZolam [Xanax] 0.25 mg PO Q8HR PRN 10/06/21 03/19/22 History modafiniL [Provigil] 100 mg PO DAILY PRN 10/06/21 03/19/22 History Isosorbide Mononitrate ER [Imdur] 30 mg PO DAILY 30 Days #30 tab 10/09/21 03/19/22 Rx Acetaminophen [Tylenol Arthritis] 650 mg PO Q8HR PRN 03/19/22 03/19/22 History Empagliflozin [Jardiance] 10 mg PO DAILY 03/19/22 03/19/22 History Fluticasone Propionate 2 spray EA NOSTRIL DAILY 03/19/22 03/19/22 History Levothyroxine Sodium [Synthroid] 56 mcg PO SUSA 03/19/22 03/19/22 History Metoprolol Succinate (ER) [Toprol 100 mg PO DAILY 03/19/22 03/19/22 History Xl] Verapamil HCl [Verapamil ER] 120 mg PO DAILY 03/19/22 03/19/22 History Allergies Allergy/AdvReac Type Severity Reaction Status Date / Time clarithromycin [From Biaxin] Allergy Unknown Verified 03/19/22 12:20 gemifloxacin [From Factive] Allergy Unknown Verified 03/19/22 12:20 prednisone Allergy Unknown Verified 03/19/22 12:20 amoxicillin [From Augmentin] AdvReac Nausea & Verified 03/19/22 12:20 Vomiting & Diarrhea clavulanic acid AdvReac Nausea & Verified 03/19/22 12:20 [From Augmentin] Vomiting & Diarrhea Physical Exam Vitals: Vital Signs Temp Pulse Resp BP Pulse Ox 03/19/22 13:04 79 18 104/60 97 03/19/22 12:00 86 181 H 112/61 98 03/19/22 11:00 80 20 92/60 96 03/19/22 10:00 86 18 151/72 90 L 03/19/22 09:30 98 F 90 18 107/65 91 L Intake and Output 03/18/22 03/19/22 03/19/22 22:59 06:59 14:59 Other: Weight 53.977 kg Results 03/19/22 10:09 03/19/22 10:09 Cardiac Enzymes 03/19/22 03/19/22 Range/Units 10:09 10:09 AST 47 H (14-36) U/L Troponin I <0.012 (0.000-0.034) ng/mL Coagulation 03/19/22 Range/Units 10:09 PT 10.6 (9.0-12.0) sec APTT 23.8 (22.0-30.0) sec CBC 03/19/22 Range/Units 10:09 WBC 28.8 H (3.8-10.6) k/uL RBC 4.00 (3.80-5.40) m/uL Hgb 12.6 (11.4-16.0) gm/dL Hct 39.0 (34.0-46.0) % Plt Count 412 (150-450) k/uL Comprehensive Metabolic Panel 03/19/22 Range/Units 10:09 Sodium 137 (137-145) mmol/L Potassium 4.3 (3.5-5.1) mmol/L Chloride 103 (98-107) mmol/L Carbon Dioxide 27 (22-30) mmol/L BUN 18 H (7-17) mg/dL Creatinine 0.87 (0.52-1.04) mg/dL Glucose 115 H (74-99) mg/dL Calcium 8.8 (8.4-10.2) mg/dL AST 47 H (14-36) U/L ALT 33 (4-34) U/L Alkaline Phosphatase 94 (38-126) U/L Total Protein 7.4 (6.3-8.2) g/dL Albumin 3.7 (3.5-5.0) g/dL Current Medications Generic Name Dose Route Start Last Admin Trade Name Freq PRN Reason Stop Dose Admin Aspirin 325 mg 03/20/22 09:00 Aspirin 325 Mg Tab PO DAILY PAUL Nitroglycerin 0.4 mg 03/19/22 12:25 Nitroglycerin Sl Tabs 0.4 Mg Tab SUBLINGUAL Q5M PRN Chest Pain Intake and Output 03/18/22 03/19/22 03/19/22 22:59 06:59 14:59 Other: Weight 53.977 kg Patient Weight 03/20/22 06:59 Weight 53.977 kg 03/19/22 10:09 03/19/22 10:09
[2022-03-19] MEDS ORDERED: ALBUTEROL HFA INHALER INHALATION PRN (15:07)
[2022-03-19] MEDS ORDERED: ALPRAZolam 0.25 MG TAB PO PRN (15:07)
[2022-03-19] MEDS ORDERED: IPRATROPIUM-ALBUTEROL 3 ML NEB INHALATION PRN (15:07)
[2022-03-19] MEDS ORDERED: ACETAMINOPHEN TAB 325 MG TAB PO PRN (15:07)
[2022-03-19] MEDS ORDERED: FUROSEMIDE 10 MG/ML 4 ML VIAL IV STA (15:15)
--- NOTE | 2022-03-19 15:17 | P.HPIM ---
History of Present Illness H&P Date: 03/19/22 Chief Complaint: CP Patient is a 81-year-old female with history of CAD status post stent, hypertension, dyslipidemia, diastolic CHF LVEF 55-60%, hypothyroidism, asthma presenting with chest pain. She claims that she has had a chest cold over the last 2 weeks. She's been taking antibiotics and steroids on and off for the last couple months. Her last time she took steroids were and New Year's. She claims that she normally ambulates on her own, and has been able to climb stairs without any issues. However over the last few weeks she's been noticing increased shortness of breath. This morning, at 6 AM she woke up and went to the bathroom and after returning back to bed she noted substernal chest pressure that radiated to her back. She was also noticing some shortness of breath, and lightheadedness. She denied any diaphoresis, nausea, abdominal pain. She denies any recent fevers or chills. She denies any recent diarrhea, constipation, or urinary complaints. She denies any recent travel or sick contacts. She was recently seen by cardiology in the office, and was given 5 days of oral Lasix. She denies any significant orthopnea, PND, lower extremity swelling. She does not use oxygen at home. She denies any smoking, alcohol, illicit drug use. In the ED, temperature was 98, respiratory rate 18, pulse 90, blood pressure 107/65, 91% on room air. Chest x-ray showed cardiomegaly with pulmonary vascular congestion per radiology report. EKG showed normal sinus rhythm, no significant ST-T wave changes, anteroseptal leads with Q waves, reviewed by me. Laboratory workup showed WBC 28.8, BUN of 18, proBNP 799 (similar to prior), t roponin negative 2. AST mildly elevated. Patient seen and examined at bedside. Pertinent positives and negatives as discussed in HPI, a complete review of systems was performed and all other systems are negative. Vital signs reviewed General: nontoxic, no distress, appears at stated age Derm: warm, dry Head: atraumatic, normocephalic, symmetric Eyes: EOMI, no lid lag, anicteric sclera, pupils equal round reactive to light ENT: Nose and ears atraumatic Neck: No thyromegaly, supple Mouth: no lip lesion, mucus membranes moist Cardiovascular: S1S2 reg, systolic murmur, no edema Lungs: Bilateral rales up to mid lungs, no wheeze, no accessory muscle use, supplemental oxygen Abdominal: soft, nontender to palpation, no guarding, no appreciable organomegaly Ext: no gross muscle atrophy, muscle strength muscle strength 5 out of 5 in all 4 extremities, no contractures Neuro: CN II-XII grossly intact Psych: Alert, oriented, appropriate affect Assessment/Plan: Acute chest pain, rule out ACS History of coronary artery disease status post stent -ASA, Plavix, statin -Telemetry -continue to trend troponin -EKG sinus rhythm reviewed by me -CXR reported as cardiomegaly with pulmonary vascular congestion -cardiology consult Acute hypoxic respiratory failure Mild Acute Diastolic CHF exacerbation -Most recent LVEF was 55-60% -Chest x-ray reportedly shows pulmonary vascular congestion -IV Lasix 40 once -Cardiology consulted -Monitor urine output, BMP -Echo pending Leukocytosis -Increased neutrophils and monocytes -Could possibly be reactive, steroid-induced, versus hematological disorder -Infectious cause less likely -Continue to trend -will likely need outpatient follow-up if not resolving Chronic medical conditions: Asthma Hypertension - held verapamil due to low blood pressures Dyslipidemia Hypothyroidism -Continue home medications The patient is admitted with an anticipated less than 2 midnight stay for evaluation of chest pain. Surrogate decision-maker: spouse CODE STATUS: Full Code DVT prophylaxis: Subcu heparin Anticipated discharge date: 1-[address]: Likely home A total of 65 minutes was spent on the care of this complex patient more than 50% of the time was spent in counseling and care coordination. Past Medical History Past Medical History: Heart Failure, Hyperlipidemia, Hypertension, Mitral Valve Prolapse (MVP), Rheumatoid Arthritis (RA), Thyroid Disorder Additional Past Medical History / Comment(s): HAD A PNE VACCINE AFTER AGE 67 BUT NOT SURE OF DATE,OFFICE CLOSED AT TIME OF THIS ADMIT. History of Any Multi-Drug Resistant Organisms: None Reported Past Surgical History: Section, Orthopedic Surgery Additional Past Surgical History / Comment(s): total right knee replacement Past Anesthesia/Blood Transfusion Reactions: No Reported Reaction Additional Past Anesthesia/Blood Transfusion Reaction / Comment(s): clausterphobia Past Psychological History: No Psychological Hx Reported Smoking Status: Never smoker Past Alcohol Use History: Occasional Past Drug Use History: None Reported - Past Family History Father Additional Family Medical History / Comment(s): smoker-had problems related to that Mother Additional Family Medical History / Comment(s): smoker-problems related to that Medications and Allergies Home Medications Medication Instructions Recorded Confirmed Type Multivit-Min/FA/Lycopen/Lutein 1 tab PO DAILY 03/29/16 03/19/22 History [Centrum Silver Tablet] Omeprazole 20 mg PO DAILY 03/29/16 03/19/22 History Budesonide-Formot 160-4.5 Mcg 2 puff INHALATION RT-BID #1 inhaler 04/06/16 03/19/22 Rx [Symbicort 160-4.5 Mcg Inhaler] Albuterol Inhaler [Ventolin Hfa 2 puff INHALATION RT-QID PRN 08/09/21 03/19/22 History Inhaler] Alendronate Sodium [Fosamax] 70 mg PO MO 08/09/21 03/19/22 History Cholecalciferol [Vitamin D3 (25 50 mcg PO DAILY 08/09/21 03/19/22 History Mcg = 1000 Iu)] Ipratropium-Albuterol Nebulize 3 ml INHALATION RT-BID PRN 08/09/21 03/19/22 History [Duoneb 0.5 mg-3 mg/3 ml Soln] Levothyroxine Sodium [Synthroid] 112 mcg PO MOTUWETHFR 08/09/21 03/19/22 History Magnesium Oxide [Darden] 500 mg PO DAILY 08/09/21 03/19/22 History Montelukast [Singulair] 10 mg PO DAILY 08/09/21 03/19/22 History Aspirin 81 mg PO DAILY #30 tab 08/11/21 03/19/22 Rx Atorvastatin [Lipitor] 80 mg PO HS #30 tab 08/11/21 03/19/22 Rx Clopidogrel [Plavix] 75 mg PO DAILY #30 tab 08/11/21 03/19/22 Rx Nitroglycerin Sl Tabs [Nitrostat] 0.4 mg SUBLINGUAL Q5M PRN #14 tab 08/11/21 03/19/22 Rx ALPRAZolam [Xanax] 0.25 mg PO Q8HR PRN 10/06/21 03/19/22 History modafiniL [Provigil] 100 mg PO DAILY PRN 10/06/21 03/19/22 History Isosorbide Mononitrate ER [Imdur] 30 mg PO DAILY 30 Days #30 tab 10/09/21 03/19/22 Rx Acetaminophen [Tylenol Arthritis] 650 mg PO Q8HR PRN 03/19/22 03/19/22 History Empagliflozin [Jardiance] 10 mg PO DAILY 03/19/22 03/19/22 History Fluticasone Propionate 2 spray EA NOSTRIL DAILY 03/19/22 03/19/22 History Levothyroxine Sodium [Synthroid] 56 mcg PO SUSA 03/19/22 03/19/22 History Metoprolol Succinate (ER) [Toprol 100 mg PO DAILY 03/19/22 03/19/22 History Xl] Verapamil HCl [Verapamil ER] 120 mg PO DAILY 03/19/22 03/19/22 History Allergies Allergy/AdvReac Type Severity Reaction Status Date / Time clarithromycin [From Biaxin] Allergy Unknown Verified 03/19/22 12:20 gemifloxacin [From Factive] Allergy Unknown Verified 03/19/22 12:20 prednisone Allergy Unknown Verified 03/19/22 12:20 amoxicillin [From Augmentin] AdvReac Nausea & Verified 03/19/22 12:20 Vomiting & Diarrhea clavulanic acid AdvReac Nausea & Verified 03/19/22 12:20 [From Augmentin] Vomiting & Diarrhea Physical Exam Vitals: Vital Signs Temp Pulse Resp BP Pulse Ox 03/19/22 13:04 79 18 104/60 97 03/19/22 12:00 86 181 H 112/61 98 03/19/22 11:00 80 20 92/60 96 03/19/22 10:00 86 18 151/72 90 L 03/19/22 09:30 98 F 90 18 107/65 91 L Intake and Output 03/19/22 03/19/22 03/19/22 06:59 14:59 22:59 Other: Weight 53.977 kg Results CBC & Chem 7: 03/19/22 10:09 03/19/22 10:09 Labs: Abnormal Lab Results - Last 24 Hours (Table) 03/19/22 03/19/22 03/19/22 Range/Units 10:09 10:09 11:40 WBC 28.8 H (3.8-10.6) k/uL Neutrophils # (Manual) 23.62 H (1.3-7.7) k/uL Monocytes # (Manual) 3.17 H (0-1.0) k/uL BUN 18 H (7-17) mg/dL Glucose 115 H (74-99) mg/dL AST 47 H (14-36) U/L Urine Glucose (UA) 4+ H (Negative) Ur Leukocyte Esterase Trace H (Negative) Urine WBC 7 H (0-5) /hpf
[2022-03-19] MEDS: LEVOTHYROXINE 112 MCG TAB PO SCH (15:41)
[2022-03-19] MEDS ORDERED: REGADENOSON 0.4 MG/5 ML SYRINGE IV PRN (18:10)
[2022-03-19] MEDS ORDERED: CAFFEINE CITRATE 60 MG/3 ML VIAL IV PRN (18:10)
[2022-03-19] MEDS ORDERED: AMINOPHYLLINE 500 MG/20 ML VIAL IV PRN (18:10)
[2022-03-19] MEDS: SYMBICORT 160-4.5 MCG INHALER INHALATION SCH (20:50)
[2022-03-19] MEDS ORDERED: ATORVASTATIN 80 MG TAB PO SCH (21:00)
[2022-03-20] MEDS: LEVOTHYROXINE 112 MCG TAB PO SCH (06:24)
[2022-03-20] MEDS: SYMBICORT 160-4.5 MCG INHALER INHALATION SCH (08:23)
[2022-03-20 08:49] LABS: Basophils # (A) 0.07 X 10*3/uL (0.00-0.10); Basophils % (A) 0.6 %; Eosinophils # (A) 0.15 X 10*3/uL (0.04-0.35); Eosinophils % (A) 1.2 %; HCT 37.7 % (37.2-46.3); HGB 11.3 g/dL (12.0-15.0); Immature Grans, Automated 0.4 %; Lymphocytes # (A) 2.17 X 10*3/uL (0.90-5.00); Lymphocytes % (A) 17.9 %; MCH 30.1 pg (27.0-32.0); MCV 100.5 fL (80.0-97.0); Monocytes # (A) 1.15 X 10*3/uL (0.20-1.00); Monocytes % (A) 9.5 %; NRBC Per 100 WBC 0 /100 WBCS (0.0-0.0); Neutrophils # (A) 8.52 X 10*3/uL (1.80-7.70); Neutrophils % (A) 70.4 %; Platelet Count 296 X 10*3/uL (140-440); RBC 3.75 X 10*6/uL (4.10-5.20); RDW 15.3 % (11.5-14.5); WBC 12.11 X 10*3/uL (4.50-10.00)
[2022-03-20] MEDS ORDERED: PANTOPRAZOLE 40 MG TABLET PO SCH (09:00)
[2022-03-20] MEDS ORDERED: ISOSORBIDE MONONITRATE ER 30 MG TAB.ER.24H PO SCH (09:00)
[2022-03-20] MEDS ORDERED: MONTELUKAST 10 MG TAB PO SCH (09:00)
[2022-03-20] MEDS ORDERED: ASPIRIN 325 MG TAB PO SCH (09:00)
[2022-03-20] MEDS ORDERED: CLOPIDOGREL 75 MG TAB PO SCH (09:00)
[2022-03-20] MEDS ORDERED: MAGNESIUM OXIDE 400 MG TAB PO SCH (09:00)
[2022-03-20] MEDS ORDERED: METOPROLOL SUCCINATE (ER) 100 MG TAB.ER.24H PO SCH (09:00)
[2022-03-20] MEDS ORDERED: ASPIRIN 81 MG PO SCH (09:00)
[2022-03-20] MEDS ORDERED: DAPAGLIFLOZIN PROPANEDIOL 5 MG TABLET PO SCH (09:00)
[2022-03-20] MEDS ORDERED: MULTIVITAMINS, THERA 1 EACH TAB PO SCH (09:00)
[2022-03-20] MEDS ORDERED: FLUTICASONE 50MCG/SPRAY NASAL 16GM EA NOSTRIL SCH (09:00)
[2022-03-20] MEDS ORDERED: CHOLECALCIFEROL 25 MCG (1000 IU) TABLET PO SCH (09:00)
[2022-03-20 09:33] LABS: African American GFR (CKD) 70.5 (60.0-200.0); BUN/Creat Ratio 20.78 Ratio (12.00-20.00); Blood Urea Nitrogen 18.7 mg/dL (9.0-27.0); Calcium 9.2 mg/dL (8.7-10.3); Carbon Dioxide 32.2 mmol/L (20.0-27.5); Chloride 101 mmol/L (96-109); Chol/HDL Ratio 2.85 Ratio; Glucose 97 mg/dL (70-110); LDL Cholesterol,Calculated 51.1 mg/dL (0.0-131.0); Magnesium 2.2 mg/dL (1.5-2.4); Non-African American GFR(CKD) 60.8 (60.0-200.0); Potassium 4.5 mmol/L (3.5-5.5); Sodium 140 mmol/L (135-145); VLDL Calculation 19.58 mg/dL (5.00-40.00)
--- NOTE | 2022-03-20 11:16 | CA ---
Lexiscan Nuclear Stress Test Report Name: Ulises Grande Exam Date: 03/20/2022 09:42 Exam Location: [place] Stress Ht (in): 62 Wt (lb): 119 BSA: 1.53 Ordering Phys: Aniya Edgar MD Referring Phys: GI EDGAR,, Technologist: Sam Mahajan Age: 81 Gender: F : 1940 Procedure CPT: Indications: Reflex order-Stress test ICD-10 Codes: Patient History: Medications: SEE LIST Meds past 24 hrs: Pretest Chest Pain: STRESS TEST Lexiscan Protocol Exercise Duration (min:sec): 02:[address] Depressions (mm): Angina Score: Moore Score: Resting HR (bpm): 70 Peak HR (bpm): 93 Resting BP (mmHg): 136 / 64 Peak BP (mmHg): 128 / 54 MPHR: 141 Target HR: 120 % MPHR: 66 METS: 1.0 Total Dose: Peak Dose: Atropine: Double Product: 19873 BP Response: Stress Termination: PROTOCOL COMPLETE Stress Symptoms: CHEST PRESSURE Stress Summary: ECG ANALYSIS Resting ECG: Stress ECG: CONCLUSIONS Baseline EKG revealed a normal sinus rhythm with poor R-wave progression over the precordial leads. No significant ST segment abnormalities. With Lexiscan administration the heart rate change from 70-93 bpm and the blood pressure changed from 136/74-118/58. Patient had mild chest discomfort. EKG remained unremarkable. By EKG criteria this is a unremarkable Lexiscan stress test. The nuclear scan results which are more pertinent will be reported by the radiologist. Dr. Aniya Edgar MD (Electronically Signed) Final Date: 20 March 2022 11:16
--- NOTE | 2022-03-20 12:42 | NM ---
EXAMINATION TYPE: NM stress lexiscan cardiolite DATE OF EXAM: 03/20/2022 COMPARISON: Prior study 2009 HISTORY: Chest pain and shortness of breath. History of hypertension and asthma. History of three-ves jermaine coronary angioplasty. TECHNIQUE: After the intravenous administration of 9.2 mCi Tc 99m Sestamibi - Cardiolite resting SPE CT images acquired 45 minutes post injection. The patient received 0.4mg Lexiscan, 24.7 mCi Tc 99m Sestamibi - Stress images obtained [address] injection FINDINGS: Review of stress and rest SPECT images demonstrates no distinct perfusion abnormality. Gated analysi s shows normal wall motion with an estimated left ventricular ejection fraction of 66 %. IMPRESSION: No scintigraphic evidence for reversible ischemia.
--- NOTE | 2022-03-20 14:13 | P.PN ---
Subjective Progress Note Date: 03/20/22 HISTORY OF PRESENTING ILLNESS Patient is a 81-year-old female patient of Dr. Jain with history of hype rtension and hyperlipidemia borderline diabetes mellitus CAD status post anterior STEMI August 2021, rheumatoid arthritis. Patient was hospitalized in September 2021 for non-ST elevated myocardial infarction underwent cardiac catheterization at that time which revealed minimal luminal irregularities, juares nt LAD stent with only 30-40% proximal LAD stenosis similar to prior intervention. We have been asked to see the patient for chest pain. Patient presented to the emergency center with chest pain that started while she was in bed at 6 AM. She also states she felt her ears racing and she had shortness of breath and some cough. Yesterday, she had sputum production following nebulizer treatment but no sputum production today. She states she recently was seen by Dr. Jain in the office and he had ordered blood work which surprisingly came back with elevated white count of 21. Patient does state she was on steroids between and for bronchitis possible pneumonia. When she was seen Dr. Jain, he increased her blood pressure medicine and added a water pill which she took for 5 days and completed the course on Saturday. Patient complains of feeling somewhat lightheaded with the chest pain, no nausea no diaphoresis. Chest pain was in the midsternal area and she is now feeling well and does not seem to have any pain. She is not sure what relieved her pain but could be nitroglycerin although she still had the pain when she arrived to the emergency center. Oxygen may have helped. EKG is a sinus rhythm at 88 bpm WBC 28.8, hemoglobin 12.6, platelet count 412. INR 1.0. Potassium 4.3, BUN 18 and creatinine 0.87. Troponin negative 1. ProBNP 799. AST 47 otherwise liver function tests are within normal limits. Chest x-ray reveals cardiomegaly with pulmonary vascular congestion correlate for heart failure exacerbation Home cardiac medications include aspirin 81 mg daily, atorvastatin 80 mg at bedtime, Plavix 75 mg daily Imdur 30 mg daily, Toprol-XL 100 mg daily, verapamil 120 mg daily, jardiance 10 mg daily Limited echocardiograms 10/09/2021: EF 55-60%, left ventricular hypertrophy, aortic sclerosis. 03/20 Patient denies any chest pain or shortness of breath. Heart rate has been in the 60s to 80s, blood pressure 134/57, pulse ox 95% on room air. ekg monitor tech has been a sinus rhythm. Repeat blood work reveals WBC improved to 12.1, hemoglobin 11.3, platelet count 297. BUN 18 and creatinine 0.9. Potassium 4.5. Triglycerides 97, cholesterol 109, HDL 38 LDL 51. TSH 8.85 with a normal free T4 1 0.33. She underwent Lexiscan stress test which was negative for reversible ischemia. PHYSICAL EXAMINATION Vital signs reviewed. CONSTITUTIONAL: No apparent distress. HEENT: Head is normocephalic. Pupils are equal, round. Sclerae anicteric. Mucous membranes of the mouth are moist. No JVD. No carotid bruit. CHEST EXAMINATION: Scattered rhonchi. No wheezing. HEART EXAMINATION: Regular rate and rhythm. S1, S2 heard. No murmurs, gallops or rub. ABDOMEN: Soft, nontender. Positive bowel sounds. EXTREMITIES: 2+ peripheral pulses, no lower extremity edema and no calf tenderness. NEUROLOGIC EXAMINATION: Patient is awake, alert and oriented x3. ASSESSMENT Chest pain rule out acute coronary syndrome with serial troponins Leukocytosis possibly related to recent bronchitis/pneumonia, possibly related to steroids CAD with prior history of STEMI and PCI of LAD August 2021 Hypertension Moderate to severe mitral stenosis by prior echo Aortic stenosis Rheumatoid arthritis Diabetes mellitus PLAN Resume patient's home cardiac medications Patient is cleared for discharge home and may follow-up with Dr. Jain in the next 1-2 weeks. Nurse practitioner note has been reviewed, I agree with the documented findings and plan of care. Patient was seen and examined. Objective - Vital Signs Vital signs: Vital Signs Temp 97.5 F L 03/20/22 07:00 Pulse 64 03/20/22 07:00 Resp 18 03/20/22 07:00 BP 111/58 03/20/22 07:00 Pulse Ox 100 03/20/22 07:00 FiO2 Intake & Output 03/19/22 03/20/22 03/20/22 18:59 06:59 18:59 Weight 53.977 kg Other: # Voids 4 - Labs CBC & Chem 7: 03/20/22 06:04 03/20/22 06:04 Labs: Abnormal Lab Results - Last 24 Hours (Table) 03/19/22 03/19/22 03/19/22 Range/Units 10:09 10:09 11:40 WBC 28.8 H (3.8-10.6) k/uL RBC (4.10-5.20) X 10*6/uL Hgb (12.0-15.0) g/dL MCV (80.0-97.0) fL MCHC (32.0-37.0) g/dL RDW (11.5-14.5) % Immature Gran # (0.00-0.04) X 10*3/uL Neutrophils # (1.80-7.70) X 10*3/uL Neutrophils # (Manual) 23.62 H (1.3-7.7) k/uL Monocytes # (0.20-1.00) X 10*3/uL Monocytes # (Manual) 3.17 H (0-1.0) k/uL BUN 18 H (7-17) mg/dL Glucose 115 H (74-99) mg/dL AST 47 H (14-36) U/L Urine Glucose (UA) 4+ H (Negative) Ur Leukocyte Esterase Trace H (Negative) Urine WBC 7 H (0-5) /hpf 03/20/22 Range/Units 06:04 WBC 12.11 H (3.8-10.6) k/uL RBC 3.75 L (4.10-5.20) X 10*6/uL Hgb 11.3 L (12.0-15.0) g/dL MCV 100.5 H (80.0-97.0) fL MCHC 30.0 L (32.0-37.0) g/dL RDW 15.3 H (11.5-14.5) % Immature Gran # 0.05 H (0.00-0.04) X 10*3/uL Neutrophils # 8.52 H (1.80-7.70) X 10*3/uL Neutrophils # (Manual) (1.3-7.7) k/uL Monocytes # 1.15 H (0.20-1.00) X 10*3/uL Monocytes # (Manual) (0-1.0) k/uL BUN (7-17) mg/dL Glucose (74-99) mg/dL AST (14-36) U/L Urine Glucose (UA) (Negative) Ur Leukocyte Esterase (Negative) Urine WBC (0-5) /hpf
--- NOTE | 2022-03-20 15:23 | P.DS ---
Providers Date of admission: 03/19/22 12:32 Expected date of discharge: 03/20/22 Attending physician: Carole Almaguer DO Consults: 03/19/22 12:25 Consult Physician Urgent Consulting Provider: Melvin Oviedo Consult Reason/Comments: chest pain Do you want consulting provider notified?: Yes Primary care physician: Paul Bonilla [facility] Course: Discharge Diagnosis: Acute chest pain History of coronary artery disease status post stents Acute hypoxic respiratory failure Mild acute diastolic CHF exacerbation Leukocytosis Hospital Course: 11-year-old female with history of CAD status post stent, hypertension, dyslipidemia, diastolic CHF LVEF 55-60%, hypothyroidism, asthma presenting with chest pain. In the ED, temperature was 98, respiratory rate 18, pulse 90, blood pressure 107/65, 91% on room air. Chest x-ray showed cardiomegaly with pulmonary vascular congestion per radiology report. EKG showed normal sinus rhythm, no significant ST-T wave changes, anteroseptal leads with Q waves. Laboratory workup showed WBC 28.8, BUN of 18, proBNP 799 (similar to prior), troponin negative 2. AST mildly elevated. Based on exam as well as history, patient likely mild acute diastolic CHF exacerbation, given 1 dose of IV Lasix. Cardiology consulted. Stress test showed no reversible ischemia. Patient to follow-up with cardiology outpatient for echocardiogram. Leukocytosis improved, Likely reactive. Needs repeat CBC as an outpatient. Patient seen and examined at bedside. Vital signs reviewed and stable. General: nontoxic, no distress, appears at stated age Derm: warm, dry Head: atraumatic, normocephalic, symmetric Eyes: EOMI, no lid lag, anicteric sclera Mouth: no lip lesion, mucus membranes moist Cardiovascular: S1S2 reg, systolic murmur Lungs: CTA bilateral, no rhonchi, no rales , no accessory muscle use Abdominal: soft, nontender to palpation, no guarding, no appreciable organomegaly Ext: no gross muscle atrophy, no edema, no contractures Neuro: CN II-XI grossly intact, no focal neuro deficits Psych: Alert, oriented, appropriate affect A total of 33 minutes of time were spent preparing this complex discharge summary. Patient was discharged on at 15:18. Patient Condition at Discharge: Stable Plan - Discharge Summary New Discharge Prescriptions: Continue Omeprazole 20 mg PO DAILY Multivit-Min/FA/Lycopen/Lutein [Centrum Silver Tablet] 1 tab PO DAILY Budesonide-Formot 160-4.5 Mcg [Symbicort 160-4.5 Mcg Inhaler] 2 puff INHALATION RT-BID #1 inhaler Ipratropium-Albuterol Nebulize [Duoneb 0.5 mg-3 mg/3 ml Soln] 3 ml INHALATION RT-BID PRN PRN Reason: Shortness Of Breath Aspirin 81 mg PO DAILY #30 tab Nitroglycerin Sl Tabs [Nitrostat] 0.4 mg SUBLINGUAL Q5M PRN #14 tab PRN Reason: Chest Pain Clopidogrel [Plavix] 75 mg PO DAILY #30 tab modafiniL [Provigil] 100 mg PO DAILY PRN PRN Reason: Motion Sickness Isosorbide Mononitrate ER [Imdur] 30 mg PO DAILY 30 Days #30 tab Fluticasone Propionate 2 spray EA NOSTRIL DAILY Levothyroxine Sodium [Synthroid] 56 mcg PO SUSA Empagliflozin [Jardiance] 10 mg PO DAILY Metoprolol Succinate (ER) [Toprol XL] 100 mg PO DAILY Acetaminophen [Tylenol Arthritis] 650 mg PO Q8HR PRN PRN Reason: Pain Magnesium Oxide [Darden] 500 mg PO DAILY Levothyroxine Sodium [Synthroid] 112 mcg PO MOTUWETHFR Cholecalciferol [Vitamin D3 (25 Mcg = 1000 Iu)] 50 mcg PO DAILY Montelukast [Singulair] 10 mg PO DAILY Albuterol Inhaler [Ventolin Hfa Inhaler] 2 puff INHALATION RT-QID PRN PRN Reason: Shortness Of Breath Alendronate Sodium [Fosamax] 70 mg PO MO Atorvastatin [Lipitor] 80 mg PO HS #30 tab ALPRAZolam [Xanax] 0.25 mg PO Q8HR PRN PRN Reason: Anxiety Verapamil HCl [Verapamil ER] 120 mg PO DAILY Discharge Medication List Multivit-Min/FA/Lycopen/Lutein [Centrum Silver Tablet] 1 tab PO DAILY 03/29/16 [History] Omeprazole 20 mg PO DAILY 03/29/16 [History] Budesonide-Formot 160-4.5 Mcg [Symbicort 160-4.5 Mcg Inhaler] 2 puff INHALATION RT-BID #1 inhaler 04/06/16 [Rx] Albuterol Inhaler [Ventolin Hfa Inhaler] 2 puff INHALATION RT-QID PRN 08/09/21 [History] Alendronate Sodium [Fosamax] 70 mg PO MO 08/09/21 [History] Cholecalciferol [Vitamin D3 (25 Mcg = 1000 Iu)] 50 mcg PO DAILY 08/09/21 [History] Ipratropium-Albuterol Nebulize [Duoneb 0.5 mg-3 mg/3 ml Soln] 3 ml INHALATION RT-BID PRN 08/09/21 [History] Levothyroxine Sodium [Synthroid] 112 mcg PO MOTUWETHFR 08/09/21 [History] Magnesium Oxide [Darden] 500 mg PO DAILY 08/09/21 [History] Montelukast [Singulair] 10 mg PO DAILY 08/09/21 [History] Aspirin 81 mg PO DAILY #30 tab 08/11/21 [Rx] Atorvastatin [Lipitor] 80 mg PO HS #30 tab 08/11/21 [Rx] Clopidogrel [Plavix] 75 mg PO DAILY #30 tab 08/11/21 [Rx] Nitroglycerin Sl Tabs [Nitrostat] 0.4 mg SUBLINGUAL Q5M PRN #14 tab 08/11/21 [Rx] ALPRAZolam [Xanax] 0.25 mg PO Q8HR PRN 10/06/21 [History] modafiniL [Provigil] 100 mg PO DAILY PRN 10/06/21 [History] Isosorbide Mononitrate ER [Imdur] 30 mg PO DAILY 30 Days #30 tab 10/09/21 [Rx] Acetaminophen [Tylenol Arthritis] 650 mg PO Q8HR PRN 03/19/22 [History] Empagliflozin [Jardiance] 10 mg PO DAILY 03/19/22 [History] Fluticasone Propionate 2 spray EA NOSTRIL DAILY 03/19/22 [History] Levothyroxine Sodium [Synthroid] 56 mcg PO SUSA 03/19/22 [History] Metoprolol Succinate (ER) [Toprol XL] 100 mg PO DAILY 03/19/22 [History] Verapamil HCl [Verapamil ER] 120 mg PO DAILY 03/19/22 [History] Follow up Appointment(s)/Referral(s): Kaleb Jain DO [STAFF PHYSICIAN] - 1 Week Paul Bonilla DO [Primary Care Provider] - 1-2 days Patient Instructions/Handouts: Chest Pain (DC) Activity/Diet/Wound Care/Special Instructions: Please see your PCP in 1-2 days, please see your show card writer as soon as possible. Discharge Disposition: HOME SELF-CARE
[2022-03-20 16:10] VITALS: BP 116/60; PULSE 75; RESP 16; TEMP 98.1
--- NOTE | 2022-03-21 07:11 | CA ---
Transthoracic Echo Report Name: Ulises Grande Age: 81 Gender: F : 1940 Exam Date: 03/20/2022 13:54 Exam Location: [facility] Ht (in): 62 Wt (lb): 119 Ordering Physician: Aron Sanderson Attending/Referring Phys: [id number], Kin Voicer Pita Bennett RDCS Procedure CPT: Indications: Chest Pain Cardiac Hx: Technical Quality: Fair Contrast 1: Total Dose (mL): Contrast 2: Total Dose (mL): MEASUREMENTS (Male / Female) Normal Values 2D ECHO LV Diastolic Diameter PLAX 3.5 cm 4.2 - 5.9 / 3.9 - 5.3 cm LV Systolic Diameter PLAX 2.3 cm IVS Diastolic Thickness 1.4 cm 0.6 - 1.0 / 0.6 - 0.9 cm LVPW Diastolic Thickness 1.6 cm 0.6 - 1.0 / 0.6 - 0.9 cm LV Relative Wall Thickness 0.8 RV Internal Dim ED PLAX 2.5 cm LA Volume 78.9 cm??? 18 - 58 / 22 - 52 cm??? M-MODE Aortic Root Diameter MM 3.0 cm LA Systolic Diameter MM 3.5 cm LA Ao Ratio MM 1.1 AV Cusp Separation MM 1.9 cm DOPPLER AV Peak Velocity 230.5 cm/s AV Peak Gradient 21.3 mmHg AV Mean Velocity 174.2 cm/s AV Mean Gradient 13.4 mmHg AV Velocity Time Integral 45.8 cm AI Peak Velocity 460.2 cm/s AI Peak Gradient 84.7 mmHg AI Pressure Half Time 495.8 ms LVOT Peak Velocity 119.0 cm/s LVOT Peak Gradient 5.7 mmHg MV Peak Velocity 230.5 cm/s MV Peak Gradient 21.3 mmHg MV Mean Velocity 184.8 cm/s MV Mean Gradient 14.1 mmHg MV Velocity Time Integral 80.2 cm MV Area PHT 1.6 cm??? Mitral E Point Velocity 217.9 cm/s Mitral A Point Velocity 225.5 cm/s Mitral E to A Ratio 1.0 MV Deceleration Time 471.5 ms MV E' Velocity 3.1 cm/s Mitral E to MV E' Ratio 70.4 TR Peak Velocity 349.0 cm/s TR Peak Gradient 48.7 mmHg Right Ventricular Systolic Press 53.7 mmHg FINDINGS Left Ventricle Moderately increased septal wall thickness. Moderately increased posterior wall thickness. Normal left ventricular systolic function with no obvious regional wall motion abnormalities. Left ventricular ejection fraction is estimated at 55-60 %. Right Ventricle Normal right ventricular size. Moderate pulmonary hypertension. Right ventricular systolic pressure estimated at 53 mm hg. Right Atrium Mild right atrial dilatation. Left Atrium Severely increased left atrial volume. Mildly increased left atrial area. Mitral Valve Severe mitral annular calcification. Moderate mitral stenosis. MV peak velocity 231 cm/s, MV peak Pg 21.3mmHg, mean Pg 14 mmHg, MV area by PHT 1.6 cm2. Moderate mitral regurgitation. Aortic Valve Mild aortic stenosis with a peak gradient of 21.3 mmHg and a mean gradient of 13.4 mmHg. [id number] aortic regurgitation. Tricuspid Valve Structurally normal tricuspid valve. Moderate tricuspid regurgitation. Pulmonic Valve Trace pulmonic regurgitation. Pericardium No pericardial effusion. Aorta Normal size aortic root and proximal ascending aorta. CONCLUSIONS Normal LV size and systolic function with [id number] concentric LVH. Enlarged atria. Calcified mitral annulus and mitral valve leaflets with some restriction suggestive mild to moderate mitral stenosis with mild to moderate regurgitation. There is also moderate pulmonary hypertension. There is mild to moderate aortic stenosis with calcification. Mild to moderate aortic regurgitation. No pericardial effusion Previewed by: Dr. Aniya Schaefer MD (Electronically Signed) Final Date: 21 March 2022 07:10
[2022-03-24] MEDS ORDERED: LEVOTHYROXINE 112 MCG TAB PO SCH (06:30)
== END 2022-03-20 16:37 | disposition home or self-care (01) ==
LOC: EC 09:25 → 6NMEDSUR 12:32
PROVIDERS: ADMIT Internal Medicine; ATTEND Internal Medicine
DX: R07.89 Other chest pain (principal); J96.01 Acute respiratory failure with hypoxia; I50.33 Acute on chronic diastolic (congestive) heart failure; I11.0 Hypertensive heart disease with heart failure; E11.9 Type 2 diabetes mellitus without complications; J45.909 Unspecified asthma, uncomplicated; I25.10 Atherosclerotic heart disease of native coronary artery without angina pectoris; I08.0 Rheumatic disorders of both mitral and aortic valves; I27.20 Pulmonary hypertension, unspecified; I25.2 Old myocardial infarction; D72.829 Elevated white blood cell count, unspecified; E03.9 Hypothyroidism, unspecified; R74.01 Elevation of levels of liver transaminase levels; E78.5 Hyperlipidemia, unspecified; M06.9 Rheumatoid arthritis, unspecified; F40.240 Claustrophobia; Z79.83 Long term (current) use of bisphosphonates; Z79.890 Hormone replacement therapy; Z79.84 Long term (current) use of oral hypoglycemic drugs; Z79.51 Long term (current) use of inhaled steroids; Z79.82 Long term (current) use of aspirin; Z79.02 Long term (current) use of antithrombotics/antiplatelets; Z79.899 Other long term (current) drug therapy; Z88.0 Allergy status to penicillin; Z88.1 Allergy status to other antibiotic agents; Z88.8 Allergy status to other drugs, medicaments and biological substances; Z95.5 Presence of coronary angioplasty implant and graft; Z96.651 Presence of right artificial knee joint; Z98.891 History of uterine scar from previous surgery; Z81.2 Family history of tobacco abuse and dependence
CPT/HCPCS: 96374; 99285; 36415; 94640 ×2; 93005; 93017; 93306; 84439; 83880; 80061; 80053; 80048; 84443; 83735 ×2; 84484; 85025 ×2; 85610; 85730; 81001; 87040; 83036; 71046; 78452; G0378 ×2; A9500; J1940; J2785

== ENCOUNTER 2022-03-30 10:54 | Observation (INO) | payer MEDICARE, BC ==
[2022-03-30] MEDS ORDERED: IPRATROPIUM-ALBUTEROL 3 ML NEB INHALATION STA (11:27)
--- NOTE | 2022-03-30 11:30 | ED ---
General Adult HPI - General Chief complaint: Shortness of Breath Stated complaint: low oxygen Time Seen by Provider: 03/30/22 11:00 Source: patient, family, RN notes reviewed Mode of arrival: ambulatory Limitations: no limitations - History of Present Illness Initial comments: Patient is a pleasant 81-year-old female presenting to the emergency Department with cough and dyspnea. Onset of symptoms was the past week. Patient has not felt well over the past 2 weeks. Patient does have cough with occasional green sputum. No fever. Patient feels fatigued and somewhat short of breath. She went to urgent care and was sent here secondary to hypoxia - Related Data Home Medications Medication Instructions Recorded Confirmed Multivit-Min/FA/Lycopen/Lutein 1 tab PO DAILY 03/29/16 03/30/22 [Centrum Silver Tablet] Omeprazole 20 mg PO DAILY 03/29/16 03/30/22 Albuterol Inhaler [Ventolin Hfa 2 puff INHALATION RT-QID PRN 08/09/21 03/30/22 Inhaler] Alendronate Sodium [Fosamax] 70 mg PO MO 08/09/21 03/30/22 Cholecalciferol [Vitamin D3 (25 50 mcg PO DAILY 08/09/21 03/30/22 Mcg = 1000 Iu)] Ipratropium-Albuterol Nebulize 3 ml INHALATION RT-BID PRN 08/09/21 03/30/22 [Duoneb 0.5 mg-3 mg/3 ml Soln] Levothyroxine Sodium [Synthroid] 112 mcg PO MOTUWETHFR 08/09/21 03/30/22 Magnesium Oxide [Darden] 500 mg PO DAILY 08/09/21 03/30/22 Montelukast [Singulair] 10 mg PO DAILY 08/09/21 03/30/22 ALPRAZolam [Xanax] 0.25 mg PO Q8HR PRN 10/06/21 03/30/22 modafiniL [Provigil] 100 mg PO DAILY PRN 10/06/21 03/30/22 Acetaminophen [Tylenol Arthritis] 650 mg PO Q8HR PRN 03/19/22 03/30/22 Empagliflozin [Jardiance] 10 mg PO DAILY 03/19/22 03/30/22 Fluticasone Propionate 2 spray EA NOSTRIL DAILY 03/19/22 03/30/22 Levothyroxine Sodium [Synthroid] 56 mcg PO SUSA 03/19/22 03/30/22 Metoprolol Succinate (ER) [Toprol 100 mg PO DAILY 03/19/22 03/30/22 XL] Verapamil HCl [Verapamil ER] 120 mg PO DAILY 03/19/22 03/30/22 Furosemide [Lasix] 40 mg PO DAILY 03/30/22 03/30/22 Previous Rx's Medication Instructions Recorded Budesonide-Formot 160-4.5 Mcg 2 puff INHALATION RT-BID #1 inhaler 04/06/16 [Symbicort 160-4.5 Mcg Inhaler] Aspirin 81 mg PO DAILY #30 tab 08/11/21 Atorvastatin [Lipitor] 80 mg PO HS #30 tab 08/11/21 Clopidogrel [Plavix] 75 mg PO DAILY #30 tab 08/11/21 Nitroglycerin Sl Tabs [Nitrostat] 0.4 mg SUBLINGUAL Q5M PRN #14 tab 08/11/21 Isosorbide Mononitrate ER [Imdur] 30 mg PO DAILY 30 Days #30 tab 10/09/21 Allergies Allergy/AdvReac Type Severity Reaction Status Date / Time clarithromycin [From Biaxin] Allergy Unknown Verified 03/30/22 12:34 gemifloxacin [From Factive] Allergy Unknown Verified 03/30/22 12:34 prednisone Allergy Unknown Verified 03/30/22 12:34 amoxicillin [From Augmentin] AdvReac Nausea & Verified 03/30/22 12:34 Vomiting & Diarrhea clavulanic acid AdvReac Nausea & Verified 03/30/22 12:34 [From Augmentin] Vomiting & Diarrhea Review of Systems ROS Statement: Those systems with pertinent positive or pertinent negative responses have been documented in the HPI. ROS Other: All systems not noted in ROS Statement are negative. Constitutional: Denies: fever Eyes: Denies: eye pain ENT: Denies: ear pain Respiratory: Reports: cough, dyspnea Cardiovascular: Denies: chest pain Endocrine: Reports: fatigue Gastrointestinal: Denies: abdominal pain Genitourinary: Denies: dysuria Musculoskeletal: Denies: back pain Skin: Denies: rash Neurological: Denies: weakness Past Medical History Past Medical History: Heart Failure, Hyperlipidemia, Hypertension, Mitral Valve Prolapse (MVP), Rheumatoid Arthritis (RA), Thyroid Disorder Additional Past Medical History / Comment(s): HAD A PNE VACCINE AFTER AGE 67 BUT NOT SURE OF DATE,OFFICE CLOSED AT TIME OF THIS ADMIT. History of Any Multi-Drug Resistant Organisms: None Reported Past Surgical History: Section, Orthopedic Surgery Additional Past Surgical History / Comment(s): total right knee replacement Past Anesthesia/Blood Transfusion Reactions: No Reported Reaction Additional Past Anesthesia/Blood Transfusion Reaction / Comment(s): clausterp hobia Past Psychological History: No Psychological Hx Reported Smoking Status: Never smoker Past Alcohol Use History: Occasional Past Drug Use History: None Reported - Past Family History Father Additional Family Medical History / Comment(s): smoker-had problems related to that Mother Additional Family Medical History / Comment(s): smoker-problems related to that General Exam Limitations: no limitations General appearance: alert, in no apparent distress Head exam: Present: normocephalic Eye exam: Present: normal appearance Neck exam: Present: normal inspection Respiratory exam: Present: rhonchi Cardiovascular Exam: Present: regular rate, normal rhythm GI/Abdominal exam: Present: soft. Absent: tenderness Extremities exam: Present: normal inspection. Absent: pedal edema, calf tenderness Neurological exam: Present: alert Psychiatric exam: Present: normal affect, normal mood Skin exam: Present: normal color Course Vital Signs 03/30/22 03/30/22 03/30/22 10:55 11:28 11:29 Temperature 97.6 F Pulse Rate 85 Respiratory 22 18 Rate Blood Pressure 124/63 O2 Sat by Pulse 92 L 88 L 97 Oximetry 03/30/22 03/30/22 03/30/22 12:31 12:58 13:03 Temperature Pulse Rate 71 73 77 Respiratory 18 Rate Blood Pressure 113/57 O2 Sat by Pulse 96 Oximetry EKG Findings - EKG Results: EKG: interpreted by ERMD (Left axis. Septal Q waves. No acute ST change.), sinus rhythm Medical Decision Making - Medical Decision Making Was pt. sent in by a medical professional or institution (, PA, [employer], urgent care, hospital, or usp...) When possible be specific @ -No Did you speak to anyone other than the patient for history (EMS, parent, family, police, friend...)? What history was obtained from this source @ - helps provide original history. Did you review nursing and triage notes (agree or disagree)? Why? @ -I reviewed and agree with nursing and triage notes Were old charts reviewed (outside hosp., previous admission, EMS record, old EKG, old radiological studies, urgent care reports/EKG's, usp records)? Report findings @ -No old charts were reviewed Differential Diagnosis (chest pain, altered mental status, abdominal pain women, abdominal pain men, vaginal bleeding, weakness, fever, dyspnea, syncope, headache, dizziness, GI bleed, back pain, seizure, CVA, palpatations, mental health)? @ -Differential Dyspnea: Coronary syndrome, arrhythmia, tamponade, asthma, COPD, pulmonary embolism, pneumonia, pneumothorax, pulmonary effusion, anaphylaxis, diabetic ketoacidosis, flailed chest, pulmonary contusion, diaphragmatic rupture, anemia, neuromusc ular, this is not meant to be an all-inclusive list. EKG interpreted by me (3pts min.). @ -As above X-rays interpreted by me (1pt min.). @ -As above CT interpreted by me (1pt min.). @ -None done U/S interpreted by me (1pt. min.). @ -None done What testing was considered but not performed or refused? (CT, X-rays, U/S, labs)? Why? @ -None What meds were considered but not given or refused? Why? @ -None Did you discuss the management of the patient with other professionals (professionals i.e. , PA, [employer], lab, RT, psych nurse, mental health social worker, lawyer criminal, teacher, low altitude air defense officer, child support case officer)? Give summary @ -Case discussed with Dr. Barry, who will admit cover Dr. Bonilla. She requests consult with Dr. Pascual Was smoking cessation discussed for >3mins.? @ -No Was critical care preformed (if so, how long)? @ -No Were there social determinants of health that impacted care today? How? (Homelessness, low income, unemployed, alcoholism, drug addiction, transportation, low edu. Level, literacy, decrease access to med. care, senior care, rehab)? @ -No Was there de-escalation of care discussed even if they declined (Discuss DNR or withdrawal of care, Hospice)? DNR status @ -No What co-morbidities impacted this encounter? (DM, HTN, Smoking, COPD, CAD, Cancer, CVA, ARF, Chemo, Hep., AIDS, mental health diagnosis, sleep apnea, morbid obesity)? @ -None Was patient admitted / discharged? Hospital course, mention meds given and rou te, prescriptions, significant lab abnormalities, going to OR and other pertinent info. @ -Patient reevaluated. Patient remains hypoxic. A barton will be admitted with specialist consult . Patient clinically presents as infectious/pneumonia. Chest x-ray and BNP are somewhat suspicious for possible CHF and this will need further evaluation Undiagnosed new problem with uncertain prognosis? @ -No Drug Therapy requiring intensive monitoring for toxicity (Heparin, Nitro, Insulin, Cardizem)? @ -No Were any procedures done? @ -No Diagnosis/symptom? @ -Dyspnea Acute, or Chronic, or Acute on Chronic? @ -Acute on chronic Uncomplicated (without systemic symptoms) or Complicated (systemic symptoms)? @ -Complicated with hypoxia Side effects of treatment? @ -No Exacerbation, Progression, or Severe Exacerbation? @ -Severe exacerbation Poses a threat to life or bodily function? How? (Chest pain, [place], [place], pneumonia, PE, COPD, DKA, ARF, appy, cholecystitis, CVA, Diverticulitis, Homicidal, Suicidal, threat to staff... and all critical care pts) @ -Potential threat to life and bodily function through hypoxia - Lab Data Result diagrams: 03/30/22 11:28 03/30/22 11:28 Lab Results 03/30/22 03/30/22 03/30/22 Range/Units 11:28 11:28 11:28 WBC 17.9 H (3.8-10.6) k/uL RBC 3.68 L (3.80-5.40) m/uL Hgb 11.3 L (11.4-16.0) gm/dL Hct 35.4 (34.0-46.0) % MCV 96.2 (80.0-100.0) fL MCH 30.8 (25.0-35.0) pg MCHC 32.0 (31.0-37.0) g/dL RDW 15.0 (11.5-15.5) % Plt Count 241 (150-450) k/uL MPV 8.2 Neutrophils % 87 % Lymphocytes % 8 % Monocytes % 4 % Eosinophils % 0 % Basophils % 0 % Neutrophils # 15.5 H (1.3-7.7) k/uL Lymphocytes # 1.4 (1.0-4.8) k/uL Monocytes # 0.7 (0-1.0) k/uL Eosinophils # 0.1 (0-0.7) k/uL Basophils # 0.0 (0-0.2) k/uL PT 10.3 (9.0-12.0) sec INR 1.0 (<1.2) APTT 25.0 (22.0-30.0) sec D-Dimer 0.59 (<0.60) mg/L FEU Sodium 137 (137-145) mmol/L Potassium 4.5 (3.5-5.1) mmol/L Chloride 98 (98-107) mmol/L Carbon Dioxide 33 H (22-30) mmol/L Anion Gap 6 mmol/L BUN 18 H (7-17) mg/dL Creatinine 0.75 (0.52-1.04) mg/dL Est GFR (CKD-EPI)AfAm 88 (>60 ml/min/1.73 sqM) Est GFR (CKD-EPI)NonAf 76 (>60 ml/min/1.73 sqM) Glucose 96 (74-99) mg/dL Plasma Lactic Acid Gabriel (0.7-2.0) mmol/L Calcium 9.6 (8.4-10.2) mg/dL Magnesium 2.1 (1.6-2.3) mg/dL Total Bilirubin 1.1 (0.2-1.3) mg/dL AST 55 H (14-36) U/L ALT 37 H (4-34) U/L Alkaline Phosphatase 113 (38-126) U/L Troponin I (0.000-0.034) ng/mL NT-Pro-B Natriuret Pep pg/mL Total Protein 8.2 (6.3-8.2) g/dL Albumin 3.8 (3.5-5.0) g/dL Influenza Type A (PCR) (Not Detectd) Influenza Type B (PCR) (Not Detectd) RSV (PCR) (Not Detectd) SARS-CoV-2 (PCR) (Not Detectd) 03/30/22 03/30/22 03/30/22 Range/Units 11:28 11:28 11:28 WBC (3.8-10.6) k/uL RBC (3.80-5.40) m/uL Hgb (11.4-16.0) gm/dL Hct (34.0-46.0) % MCV (80.0-100.0) fL MCH (25.0-35.0) pg MCHC (31.0-37.0) g/dL RDW (11.5-15.5) % Plt Count (150-450) k/uL MPV Neutrophils % % Lymphocytes % % Monocytes % % Eosinophils % % Basophils % % Neutrophils # (1.3-7.7) k/uL Lymphocytes # (1.0-4.8) k/uL Monocytes # (0-1.0) k/uL Eosinophils # (0-0.7) k/uL Basophils # (0-0.2) k/uL PT (9.0-12.0) sec INR (<1.2) APTT (22.0-30.0) sec D-Dimer (<0.60) mg/L FEU Sodium (137-145) mmol/L Potassium (3.5-5.1) mmol/L Chloride (98-107) mmol/L Carbon Dioxide (22-30) mmol/L Anion Gap mmol/L BUN (7-17) mg/dL Creatinine (0.52-1.04) mg/dL Est GFR (CKD-EPI)AfAm (>60 ml/min/1.73 sqM) Est GFR (CKD-EPI)NonAf (>60 ml/min/1.73 sqM) Glucose (74-99) mg/dL Plasma Lactic Acid Gabriel 1.3 (0.7-2.0) mmol/L Calcium (8.4-10.2) mg/dL Magnesium (1.6-2.3) mg/dL Total Bilirubin (0.2-1.3) mg/dL AST (14-36) U/L ALT (4-34) U/L Alkaline Phosphatase (38-126) U/L Troponin I <0.012 (0.000-0.034) ng/mL NT-Pro-B Natriuret Pep pg/mL Total Protein (6.3-8.2) g/dL Albumin (3.5-5.0) g/dL Influenza Type A (PCR) Not Detected (Not Detectd) Influenza Type B (PCR) Not Detected (Not Detectd) RSV (PCR) Not Detected (Not Detectd) SARS-CoV-2 (PCR) Not Detected (Not Detectd) 03/30/22 Range/Units 11:28 WBC (3.8-10.6) k/uL RBC (3.80-5.40) m/uL Hgb (11.4-16.0) gm/dL Hct (34.0-46.0) % MCV (80.0-100.0) fL MCH (25.0-35.0) pg MCHC (31.0-37.0) g/dL RDW (11.5-15.5) % Plt Count (150-450) k/uL MPV Neutrophils % % Lymphocytes % % Monocytes % % Eosinophils % % Basophils % % Neutrophils # (1.3-7.7) k/uL Lymphocytes # (1.0-4.8) k/uL Monocytes # (0-1.0) k/uL Eosinophils # (0-0.7) k/uL Basophils # (0-0.2) k/uL PT (9.0-12.0) sec INR (<1.2) APTT (22.0-30.0) sec D-Dimer (<0.60) mg/L FEU Sodium (137-145) mmol/L Potassium (3.5-5.1) mmol/L Chloride (98-107) mmol/L Carbon Dioxide (22-30) mmol/L Anion Gap mmol/L BUN (7-17) mg/dL Creatinine (0.52-1.04) mg/dL Est GFR (CKD-EPI)AfAm (>60 ml/min/1.73 sqM) Est GFR (CKD-EPI)NonAf (>60 ml/min/1.73 sqM) Glucose (74-99) mg/dL Plasma Lactic Acid Gabriel (0.7-2.0) mmol/L Calcium (8.4-10.2) mg/dL Magnesium (1.6-2.3) mg/dL Total Bilirubin (0.2-1.3) mg/dL AST (14-36) U/L ALT (4-34) U/L Alkaline Phosphatase (38-126) U/L Troponin I (0.000-0.034) ng/mL NT-Pro-B Natriuret Pep 1870 pg/mL Total Protein (6.3-8.2) g/dL Albumin (3.5-5.0) g/dL Influenza Type A (PCR) (Not Detectd) Influenza Type B (PCR) (Not Detectd) RSV (PCR) (Not Detectd) SARS-CoV-2 (PCR) (Not Detectd) - Radiology Data Interpreted by me: Chest x-ray does have increased interstitial markings and cardiomegaly. Disposition Clinical Impression: Dyspnea Disposition: ADMITTED IP TO THIS HOSP Is patient prescribed a controlled substance at d/c from ED?: No Referrals: Paul Bonilla DO [Primary Care Provider] - 1-2 days Time of Disposition: 13:46
[2022-03-30 11:58] LABS: Basophils % (A) 0 %; Eosinophils # (A) 0.1 k/uL (0-0.7); Eosinophils % (A) 0 %; HCT 35.4 % (34.0-46.0); HGB 11.3 gm/dL (11.4-16.0); Lymphocytes # (A) 1.4 k/uL (1.0-4.8); Lymphocytes % (A) 8 %; MCH 30.8 pg (25.0-35.0); MCV 96.2 fL (80.0-100.0); Mean Platelet Volume 8.2; Monocytes # (A) 0.7 k/uL (0-1.0); Monocytes % (A) 4 %; Neutrophils # (A) 15.5 k/uL (1.3-7.7); Neutrophils % (A) 87 %; Platelet Count 241 k/uL (150-450); RBC 3.68 m/uL (3.80-5.40); WBC 17.9 k/uL (3.8-10.6)
--- NOTE | 2022-03-30 12:01 | XR ---
EXAMINATION TYPE: XR chest 2V DATE OF EXAM: 03/30/2022 11:49 AM COMPARISON: Chest radiographs from 03/19/2022. TECHNIQUE: XR chest 2V Frontal and lateral views of the chest. CLINICAL INDICATION:Female, 81 years old with history of difficulty breathing; FINDINGS: Lungs/Pleura: No evidence of focal consolidation or pneumothorax. Blunting of the costophrenic angles is present. Pulmonary vascularity: Unremarkable. Heart/mediastinum: Cardiomediastinal silhouette is enlarged and stable. Atherosclerotic calcificatio ns are seen in the aorta. Musculoskeletal: Multiple level degenerative disc disease changes seen throughout the spine. No acute osseous abnormality. IMPRESSION: Cardiomegaly, pulmonary vascular congestion and trace bilateral pleural effusions. Correlate with BNP for congestive heart failure.
[2022-03-30 12:14] LABS: Prothrombin Time 10.3 sec (9.0-12.0)
[2022-03-30 12:21] LABS: Albumin 3.8 g/dL (3.5-5.0); Calcium 9.6 mg/dL (8.4-10.2); Magnesium 2.1 mg/dL (1.6-2.3); Total Bilirubin 1.1 mg/dL (0.2-1.3); Total Protein 8.2 g/dL (6.3-8.2)
[2022-03-30 12:26] LABS: Potassium 4.5 mmol/L (3.5-5.1)
[2022-03-30] MEDS ORDERED: IPRATROPIUM-ALBUTEROL 3 ML NEB INHALATION PRN (13:47)
[2022-03-30] MEDS ORDERED: LEVOFLOXACIN 750MG-D5W PMX 750 MG in DEXTROSE/WATER 1 150ML.BAG IVPB STA (13:47)
[2022-03-30] MEDS ORDERED: PNEUMONIA PROTOCOL UTILIZED 1 EACH MISC PO PRN (13:47)
[2022-03-30] MEDS ORDERED: ALBUTEROL HFA INHALER INHALATION PRN (17:48)
[2022-03-30] MEDS ORDERED: modafiniL 100 MG TAB PO PRN (17:48)
[2022-03-30] MEDS ORDERED: NITROGLYCERIN SL TABS 0.4 MG TAB SUBLINGUAL PRN (17:48)
[2022-03-30] MEDS ORDERED: ALPRAZolam 0.25 MG TAB PO PRN (17:48)
[2022-03-30] MEDS: LEVOTHYROXINE 112 MCG TAB PO SCH (18:02)
[2022-03-30] MEDS: ACETAMINOPHEN TAB 325 MG TAB PO PRN (18:35)
--- NOTE | 2022-03-30 19:05 | P.HPIM ---
History of Present Illness H&P Date: 03/30/22 Chief Complaint: Shortness of breath 81-year-old female with history of CHF, hypertension, hyperlipidemia, hypothyroidism, presenting to the emergency Department with cough and dyspnea. Onset of symptoms was the past week. Patient has not felt well over the past 2 weeks. Patient does have cough with occasional green sputum. No fever. Patient feels fatigued and somewhat short of breath. She went to urgent care and was sent here secondary to hypoxia Workup completed in ED EKG reveals sinus rhythm with left axis deviation, septal Q waves and no acute ST changes Chest x-ray reveals increased interstitial markings consistent with CHF Blood work reveals a WBC of 17.9, hemoglobin of 11.3 and platelet count of 241, sodium 137, potassium 4.5, BUN/creatinine of 18/0.75, AST/ALT elevated at 55/37, troponin of less than 0.012, BNP of 1870, Influenza A and B, RSV and COVID-19 is negative Review of Systems REVIEW OF SYSTEMS: CONSTITUTIONAL: No fever, no malaise, no fatigue. HEENT: No recent visual problems or hearing problems. Denied any sore throat. CARDIOVASCULAR: No chest pain, orthopnea, PND, no palpitations, no syncope. PULMONARY: shortness of breath, no cough, no hemoptysis. GASTROINTESTINAL: No diarrhea, no nausea, no vomiting, no abdominal pain. NEUROLOGICAL: No headaches, no weakness, no numbness. HEMATOLOGICAL: Denies any bleeding or petechiae. GENITOURINARY: Denies any burning micturition, frequency, or urgency. MUSCULOSKELETAL/RHEUMATOLOGICAL: Denies any joint pain, swelling, or any muscle pain. ENDOCRINE: Denies any polyuria or polydipsia. The rest of the 14-point review of systems is negative. Past Medical History Past Medical History: Heart Failure, Hyperlipidemia, Hypertension, Myocardial Infarction (NC), Mitral Valve Prolapse (MVP), Rheumatoid Arthritis (RA), Thyroid Disorder Additional Past Medical History / Comment(s): HAD A PNE VACCINE AFTER AGE 67 BUT NOT SURE OF DATE,OFFICE CLOSED AT TIME OF THIS ADMIT. Last Myocardial Infarction Date:: History of Any Multi-Drug Resistant Organisms: None Reported Past Surgical History: Section, Orthopedic Surgery Additional Past Surgical History / Comment(s): total right knee replacement, heart cath with three stens Past Anesthesia/Blood Transfusion Reactions: No Reported Reaction Additional Past Anesthesia/Blood Transfusion Reaction / Comment(s): clausterphobia Past Psychological History: No Psychological Hx Reported Smoking Status: Never smoker Past Alcohol Use History: Occasional Past Drug Use History: None Reported - Past Family History Father Additional Family Medical History / Comment(s): smoker-had problems related to that Mother Additional Family Medical History / Comment(s): smoker-problems related to that Medications and Allergies Home Medications Medication Instructions Recorded Confirmed Type Multivit-Min/FA/Lycopen/Lutein 1 tab PO DAILY 03/29/16 03/30/22 History [Centrum Silver Tablet] Omeprazole 20 mg PO DAILY 03/29/16 03/30/22 History Budesonide-Formot 160-4.5 Mcg 2 puff INHALATION RT-BID #1 inhaler 04/06/16 03/30/22 Rx [Symbicort 160-4.5 Mcg Inhaler] Albuterol Inhaler [Ventolin Hfa 2 puff INHALATION RT-QID PRN 08/09/21 03/30/22 History Inhaler] Alendronate Sodium [Fosamax] 70 mg PO MO 08/09/21 03/30/22 History Cholecalciferol [Vitamin D3 (25 50 mcg PO DAILY 08/09/21 03/30/22 History Mcg = 1000 Iu)] Ipratropium-Albuterol Nebulize 3 ml INHALATION RT-BID PRN 08/09/21 03/30/22 History [Duoneb 0.5 mg-3 mg/3 ml Soln] Levothyroxine Sodium [Synthroid] 112 mcg PO MOTUWETHFR 08/09/21 03/30/22 History Magnesium Oxide [Draden] 500 mg PO DAILY 08/09/21 03/30/22 History Montelukast [Singulair] 10 mg PO DAILY 08/09/21 03/30/22 History Aspirin 81 mg PO DAILY #30 tab 08/11/21 03/30/22 Rx Atorvastatin [Lipitor] 80 mg PO HS #30 tab 08/11/21 03/30/22 Rx Clopidogrel [Plavix] 75 mg PO DAILY #30 tab 08/11/21 03/30/22 Rx Nitroglycerin Sl Tabs [Nitrostat] 0.4 mg SUBLINGUAL Q5M PRN #14 tab 08/11/21 03/30/22 Rx ALPRAZolam [Xanax] 0.25 mg PO Q8HR PRN 10/06/21 03/30/22 History modafiniL [Provigil] 100 mg PO DAILY PRN 10/06/21 03/30/22 History Isosorbide Mononitrate ER [Imdur] 30 mg PO DAILY 30 Days #30 tab 10/09/21 03/30/22 Rx Acetaminophen [Tylenol Arthritis] 650 mg PO Q8HR PRN 03/19/22 03/30/22 History Empagliflozin [Jardiance] 10 mg PO DAILY 03/19/22 03/30/22 History Fluticasone Propionate 2 spray EA NOSTRIL DAILY 03/19/22 03/30/22 History Levothyroxine Sodium [Synthroid] 56 mcg PO SUSA 03/19/22 03/30/22 History Metoprolol Succinate (ER) [Toprol 100 mg PO DAILY 03/19/22 03/30/22 History XL] Verapamil HCl [Verapamil ER] 120 mg PO DAILY 03/19/22 03/30/22 History Furosemide [Lasix] 40 mg PO DAILY 03/30/22 03/30/22 History Allergies Allergy/AdvReac Type Severity Reaction Status Date / Time clarithromycin [From Biaxin] Allergy Unknown Verified 03/30/22 12:34 gemifloxacin [From Factive] Allergy Unknown Verified 03/30/22 12:34 prednisone Allergy Unknown Verified 03/30/22 12:34 amoxicillin [From Augmentin] AdvReac Nausea & Verified 03/30/22 12:34 Vomiting & Diarrhea clavulanic acid AdvReac Nausea & Verified 03/30/22 12:34 [From Augmentin] Vomiting & Diarrhea Physical Exam Vitals: Vital Signs Temp Pulse Pulse Resp BP BP BP 03/30/22 18:45 97.5 F L 79 101/53 03/30/22 14:55 97.8 F 78 114/56 03/30/22 14:39 97.8 F 03/30/22 14:00 77 18 104/63 03/30/22 13:03 77 03/30/22 13:00 74 113/57 03/30/22 12:58 73 03/30/22 12:31 71 18 113/57 03/30/22 11:29 03/30/22 11:28 18 03/30/22 10:55 97.6 F 85 22 124/63 Pulse Ox 03/30/22 18:45 98 03/30/22 14:55 96 03/30/22 14:39 03/30/22 14:00 95 03/30/22 13:03 03/30/22 13:00 99 03/30/22 12:58 03/30/22 12:31 96 03/30/22 11:29 97 03/30/22 11:28 88 L 03/30/22 10:55 92 L Intake and Output 03/30/22 03/30/22 03/30/22 06:59 14:59 22:59 Intake Total 118 Balance 118 Intake: Oral 118 Other: Weight 53.524 kg 53.524 kg PHYSICAL EXAMINATION: GENERAL: The patient is alert and oriented x3, not in any acute distress. Well developed, well nourished. HEENT: Pupils are round and equally reacting to light. EOMI. No scleral icterus. No conjunctival pallor. Normocephalic, atraumatic. No pharyngeal erythema. No thyromegaly. CARDIOVASCULAR: S1 and S2 present. No murmurs, rubs, or gallops. PULMONARY: Positive wheezing and crackles. ABDOMEN: Soft, nontender, nondistended, normoactive bowel sounds. No palpable organomegaly. MUSCULOSKELETAL: No joint swelling or deformity. EXTREMITIES: No cyanosis, clubbing, or pedal edema. NEUROLOGICAL: Gross neurological examination did not reveal any focal deficits. SKIN: No rashes. Results CBC & Chem 7: 03/30/22 11:28 03/30/22 11:28 Labs: Abnormal Lab Results - Last 24 Hours (Table) 03/30/22 03/30/22 Range/Units 11:28 11:28 WBC 17.9 H (3.8-10.6) k/uL RBC 3.68 L (3.80-5.40) m/uL Hgb 11.3 L (11.4-16.0) gm/dL Neutrophils # 15.5 H (1.3-7.7) k/uL Carbon Dioxide 33 H (22-30) mmol/L BUN 18 H (7-17) mg/dL AST 55 H (14-36) U/L ALT 37 H (4-34) U/L Thrombosis Risk Factor Assmnt - Choose All That Apply Any of the Below Risk Factors Present?: No Other Risk Factors: Yes Each Risk Factor Represents 2 Points: Age 61-74 years Thrombosis Risk Factor Assessment Total Risk Factor Score: 2 Thrombosis Risk Factor Assessment Level: Low Risk Assessment and Plan Assessment: 1. Community-acquired pneumonia/sepsis - As indicated by elevated white blood count of 17,000, tachypnea and pulse ox of 88% - Patient has been placed on Levaquin 750 mg IV daily - DuoNeb nebulizer treatments 4 times a day and when necessary - Consult ID for further evaluation 2. Acute exacerbation CHF; chest x-ray reveals increased interstitial markings consistent with CHF; BNP is elevated at 1870; troponin is negative at 0.012 - Patient has been placed on Lasix 40 mg IV every 12 hours; we will monitor strict LIBBY's, daily weights, low salt and fluid restricted diet - Continue with home dose of Farxiga - Consult cardiology for further recommendations 3. Transaminitis; AST/ALT is elevated at 55/37; possibly related to statin use; we will monitor liver enzymes closely and hold statins if transaminases continue to trend up 4. Mild AK I; BUN is elevated at 18 with creatinine normal at 0.75; we will hold off on IV fluid hydration given CHF exacerbation; we will monitor renal function and electrolytes; strict LIBBY's and daily weights; avoid nephrotoxins and hypotension 5. Hypertension; metoprolol 100 mg daily along with verapamil 120 mg daily 6. Hyperlipidemia; Lipitor 80 mg daily 7. Hypothyroidism; continue with home dose of levothyroxine 56 MCG alternating with 112 MCG daily 8. Asthma/COPD; we will continue with home inhaler therapy; DuoNeb nebulizer treatments; Singulair 10 mg daily 9. History of CAD; continue with home dose of aspirin, statins and Plavix along with Imdur 30 mg daily and beta blockers
[2022-03-30] MEDS: ATORVASTATIN 80 MG TAB PO SCH (19:51)
[2022-03-30] MEDS: FUROSEMIDE 10 MG/ML 4 ML VIAL IV SCH (19:51)
[2022-03-30] MEDS: IPRATROPIUM-ALBUTEROL 3 ML NEB INHALATION SCH ×2 (20:15)
[2022-03-30] MEDS: SYMBICORT 160-4.5 MCG INHALER INHALATION SCH (20:15)
--- NOTE | 2022-03-30 22:09 | P.CONS ---
History of Present Illness - Reason for Consult Consult date: 03/30/22 Dyspnea, leukocytosis Requesting physician: Shreyas Munson - Chief Complaint Shortness of breath and cough x few days - History of Present Illness Patient is a 81-year-old female with a past medical history significant for hypertension hyperlipidemia congestive heart failure presenting to ER for evaluation of increasing shortness of breath and cough and station sym ptom has been going on and off for the last few weeks and the patient mentions she has been treated with a 2 different courses of oral antibiotics and steroids last treatment has been around [place] patient mentioned started having increasing symptom or shortness of breath on minimal exertion even at rest for the last 1 week patient also have a cough which is motivated intensity milligrams some creamy sputum or hemoptysis patient denies having any pleuritic chest pain has been complaining of some chills but denies any high-grade fever with these symptoms the patient did went to the local urgent care with the patient was noticed to be hypoxic and the patient was sent to the ER for further evaluation on arrival to the ER patient was afebrile however she did have a white count of 17.9 with a left shift patient did have a chest x-ray with interstitial infiltrate consistent with possible CHF patient did have a negative influenza RSV and covid PCR patient was given a dose of Levaquin has been admitted to the hospital infectious disease was consulted for further management of antibiotic therapy Review of Systems Positive point has been mentioned in the HPI rest of the systems are negative Past Medical History Past Medical History: Heart Failure, Hyperlipidemia, Hypertension, Mitral Valve Prolapse (MVP), Rheumatoid Arthritis (RA), Thyroid Disorder Additional Past Medical History / Comment(s): HAD A PNE VACCINE AFTER AGE 67 BUT NOT SURE OF DATE,OFFICE CLOSED AT TIME OF THIS ADMIT. History of Any Multi-Drug Resistant Organisms: None Reported Past Surgical History: Section, Orthopedic Surgery Additional Past Surgical History / Comment(s): total right knee replacement Past Anesthesia/Blood Transfusion Reactions: No Reported Reaction Additional Past Anesthesia/Blood Transfusion Reaction / Comm: clausterphobia Past Psychological History: No Psychological Hx Reported Smoking Status: Never smoker Past Alcohol Use History: Occasional Past Drug Use History: None Reported - Past Family History Father Additional Family Medical History / Comment(s): smoker-had problems related to that Mother Additional Family Medical History / Comment(s): smoker-problems related to that Medications and Allergies Home Medications Medication Instructions Recorded Confirmed Type Multivit-Min/FA/Lycopen/Lutein 1 tab PO DAILY 03/29/16 03/30/22 History [Centrum Silver Tablet] Omeprazole 20 mg PO DAILY 03/29/16 03/30/22 History Budesonide-Formot 160-4.5 Mcg 2 puff INHALATION RT-BID #1 inhaler 04/06/16 03/30/22 Rx [Symbicort 160-4.5 Mcg Inhaler] Alendronate Sodium [Fosamax] 70 mg PO MO 08/09/21 03/30/22 History Cholecalciferol [Vitamin D3 (25 50 mcg PO DAILY 08/09/21 03/30/22 History Mcg = 1000 Iu)] Ipratropium-Albuterol Nebulize 3 ml INHALATION RT-BID PRN 08/09/21 03/30/22 History [Duoneb 0.5 mg-3 mg/3 ml Soln] Levothyroxine Sodium [Synthroid] 112 mcg PO MOTUWETHFR 08/09/21 03/30/22 History Magnesium Oxide [Darden] 500 mg PO DAILY 08/09/21 03/30/22 History Montelukast [Singulair] 10 mg PO DAILY 08/09/21 03/30/22 History Aspirin 81 mg PO DAILY #30 tab 08/11/21 03/30/22 Rx Atorvastatin [Lipitor] 80 mg PO HS #30 tab 08/11/21 03/30/22 Rx Clopidogrel [Plavix] 75 mg PO DAILY #30 tab 08/11/21 03/30/22 Rx Nitroglycerin Sl Tabs [Nitrostat] 0.4 mg SUBLINGUAL Q5M PRN #14 tab 08/11/21 03/30/22 Rx ALPRAZolam [Xanax] 0.25 mg PO Q8HR PRN 10/06/21 03/30/22 History modafiniL [Provigil] 100 mg PO DAILY PRN 10/06/21 03/30/22 History Isosorbide Mononitrate ER [Imdur] 30 mg PO DAILY 30 Days #30 tab 10/09/21 03/30/22 Rx Acetaminophen [Tylenol Arthritis] 650 mg PO Q8HR PRN 03/19/22 03/30/22 History Empagliflozin [Jardiance] 10 mg PO DAILY 03/19/22 03/30/22 History Fluticasone Propionate 2 spray EA NOSTRIL DAILY 03/19/22 03/30/22 History Levothyroxine Sodium [Synthroid] 56 mcg PO SUSA 03/19/22 03/30/22 History Metoprolol Succinate (ER) [Toprol 100 mg PO DAILY 03/19/22 03/30/22 History XL] Verapamil HCl [Verapamil ER] 120 mg PO DAILY 03/19/22 03/30/22 History Albuterol Inhaler [Ventolin Hfa 2 puff INHALATION RT-QID PRN #1 04/02/22 Rx Inhaler] each Furosemide [Lasix] 40 mg PO BID@0900,1600 #60 tab 04/02/22 Rx cefUROXime axetiL [Cefuroxime] 500 mg PO BID 7 Days #14 tab 04/02/22 Rx Allergies Allergy/AdvReac Type Severity Reaction Status Date / Time clarithromycin [From Biaxin] Allergy Unknown Verified 03/30/22 12:34 gemifloxacin [From Factive] Allergy Unknown Verified 03/30/22 12:34 prednisone Allergy Unknown Verified 03/30/22 12:34 amoxicillin [From Augmentin] AdvReac Nausea & Verified 03/30/22 12:34 Vomiting & Diarrhea clavulanic acid AdvReac Nausea & Verified 03/30/22 12:34 [From Augmentin] Vomiting & Diarrhea Physical Exam Vitals: Vital Signs Temp Pulse Resp BP Pulse Ox 03/30/22 13:03 77 03/30/22 13:00 74 113/57 99 03/30/22 12:58 73 03/30/22 12:31 71 18 113/57 96 03/30/22 11:29 97 03/30/22 11:28 18 88 L 03/30/22 10:55 97.6 F 85 22 124/63 92 L Intake and Output 03/29/22 03/30/22 03/30/22 22:59 06:59 14:59 Other: Weight 53.524 kg GENERAL DESCRIPTION: Elderly female lying in bed, no distress. No tachypnea or accessory muscle of respiration use. HEENT: Shows Pallor , no scleral icterus. Oral mucous membrane is dry. No pharyngeal erythema or thrush NECK: Trachea central, no thyromegaly. LUNGS: Unlabored breathing. Decreased breath sound the bases HEART: S1, S2, regular rate and rhythm. No loud murmur ABDOMEN: Soft, no tenderness , guarding or rigidity, no organomegaly EXTREMITIES: No edema of feet. SKIN: No rash, no masses palpable. NEUROLOGICAL: The patient is awake, alert, oriented x3, mood and affect normal. Results CBC & Chem 7: 04/02/22 05:43 04/02/22 05:43 Labs: Abnormal Lab Results - Last 24 Hours (Table) 03/30/22 03/30/22 Range/Units 11:28 11:28 WBC 17.9 H (3.8-10.6) k/uL RBC 3.68 L (3.80-5.40) m/uL Hgb 11.3 L (11.4-16.0) gm/dL Neutrophils # 15.5 H (1.3-7.7) k/uL Carbon Dioxide 33 H (22-30) mmol/L BUN 18 H (7-17) mg/dL AST 55 H (14-36) U/L ALT 37 H (4-34) U/L Assessment and Plan (1) Leukocytosis Current Visit: No Status: Acute Code(s): D72.829 - ELEVATED WHITE BLOOD CELL COUNT, UNSPECIFIED SNOMED Code(s): 504694324 (2) Pneumonia Current Visit: No Status: Acute Code(s): J18.9 - PNEUMONIA, UNSPECIFIED ORGANISM SNOMED Code(s): 974057358 Plan: 1patient presented to hospital with increasing shortness of breath cough bringing up some greenish sputum symptom has been going on for about a week patient did have elevated white count chest x-ray with interstitial infiltrate with concern for possible committed community-acquired pneumonia 2we will obtain a sputum for gram stain and culture 3-we will check a CRP and pro calcitonin level 4Patient with multiple antibiotic ALLERGIES that would limit the number of antibiotic safe to use 5we will start the patient on Rocephin and Zithromax while waiting for the culture finalized We will follow on clinical condition and cultures to further adjust medication if needed Thank you for this consultation will follow this patient with you Time with Patient: Greater than 30
[2022-03-31] MEDS: LEVOTHYROXINE 112 MCG TAB PO SCH (05:51)
[2022-03-31] MEDS: PANTOPRAZOLE 40 MG TABLET PO SCH (05:51)
--- NOTE | 2022-03-31 07:49 | XR ---
EXAMINATION TYPE: XR chest 2V DATE OF EXAM: 03/31/2022 COMPARISON: 03/30/2022 HISTORY: Shortness of breath TECHNIQUE: Frontal and lateral views of the chest are obtained. FINDINGS: There is mild pulmonary vascular congestion and a small right pleural effusion unchanged c ompared to previous. There is no airspace consolidation.. The heart is not enlarged. The osseous stru ctures are intact. IMPRESSION: No significant interval change in the mild acute cardiopulmonary disease. Findings are m ore consistent with mild CHF versus pneumonia although interstitial pneumonia not excluded. Short-ter m follow-up to resolution is recommended.
[2022-03-31] MEDS: FUROSEMIDE 10 MG/ML 4 ML VIAL IV SCH ×2 (08:12→19:48)
[2022-03-31] MEDS: DAPAGLIFLOZIN PROPANEDIOL 5 MG TABLET PO SCH (08:12)
[2022-03-31] MEDS: ASPIRIN 81 MG PO SCH (08:12)
[2022-03-31] MEDS: CLOPIDOGREL 75 MG TAB PO SCH (08:12)
[2022-03-31] MEDS: AZITHROMYCIN 250 MG TAB PO SCH (08:13)
[2022-03-31] MEDS: MULTIVITAMINS, THERA 1 EACH TAB PO SCH (08:13)
[2022-03-31] MEDS: VERAPAMIL SR 120 MG TABLET.ER PO SCH (08:13)
[2022-03-31] MEDS: CHOLECALCIFEROL 25 MCG (1000 IU) TABLET PO SCH (08:13)
[2022-03-31] MEDS: METOPROLOL SUCCINATE (ER) 100 MG TAB.ER.24H PO SCH (08:13)
[2022-03-31] MEDS: MONTELUKAST 10 MG TAB PO SCH (08:13)
[2022-03-31] MEDS: MAGNESIUM OXIDE 400 MG TAB PO SCH (08:13)
[2022-03-31] MEDS: ISOSORBIDE MONONITRATE ER 30 MG TAB.ER.24H PO SCH (08:14)
[2022-03-31] MEDS: FLUTICASONE 50MCG/SPRAY NASAL 16GM EA NOSTRIL SCH (08:14)
--- NOTE | 2022-03-31 08:15 | P.CRDCN ---
History of Present Illness Consult date: 03/31/22 Chief complaint: SOB History of present illness: This is a very pleasant 81-year-old female patient with a past medical history significant for coronary artery disease with previous stenting of the LAD and recent heart catheterization showing patent stent in the LAD and mild nonobstructive coronary artery disease as well as borderline diabetes and hypertension and dyslipidemia and valvular heart disease presented to the hospital complaining of increasing shortness of breath. The symptoms started about a week ago. She describes progressive exertional dyspnea with no orthopnea or PND. She has no cough and no sputum production beach she has no fever and no chills. No symptoms of chest pain or chest discomfort and no lower extremities edema noted. She has no change in her weight. She has been compliant with her medications. Because of the shortness of breath became worse. To the hospital for further investigation. She underwent a workup including chest x-ray showed evidence of heart failure and pulmonary vascular congestions and possible underlying pneumonia. The EKG showed sinus rhythm with Q waves anteriorly and multiple patient QRS. NT proBNP came to be elevated. The rest of the blood work came in to be unremarkable. She was given Lasix and she has improved in the shortness of breath. When she was seen and evaluated this morning bilateral rhonchi and diminished breathing sounds bilaterally but she has no lower extremities edema noted. The most recent echo from 2022 revealed normal biventricular systolic function with evidence of moderate aortic regurgitation and moderate aortic stenosis and moderate mitral regurgitation and moderate mitral stenosis and moderate pulmonary hypertension. Assessment Congestive heart failure exacerbation with evidence off left more than right heart failure, related to heart failure with preserved ejection fraction inpatient was underlying valvular heart disease Coronary artery disease with previous stenting of the LAD. The stent is patent on recent heart catheterization Borderline diabetes and hypertension and dyslipidemia Plan Agree about keeping the patient on IV Lasix for additional 24 hours Monitor the kidney function and electrolytes Further recommendation to follow No need to repeat an echocardiogram in the light of recent echo Past Medical History Past Medical History: Heart Failure, Hyperlipidemia, Hypertension, Mitral Valve Prolapse (MVP), Rheumatoid Arthritis (RA), Thyroid Disorder Additional Past Medical History / Comment(s): HAD A PNE VACCINE AFTER AGE 67 BUT NOT SURE OF DATE,OFFICE CLOSED AT TIME OF THIS ADMIT. Last Myocardial Infarction Date:: History of Any Multi-Drug Resistant Organisms: None Reported Past Surgical History: Section, Orthopedic Surgery Additional Past Surgical History / Comment(s): total right knee replacement Past Anesthesia/Blood Transfusion Reactions: No Reported Reaction Additional Past Anesthesia/Blood Transfusion Reaction / Comment(s): clausterphobia Past Psychological History: No Psychological Hx Reported Smoking Status: Never smoker Past Alcohol Use History: Occasional Past Drug Use History: None Reported - Past Family History Father Additional Family Medical History / Comment(s): smoker-had problems related to that Mother Additional Family Medical History / Comment(s): smoker-problems related to that Medications and Allergies Home Medications Medication Instructions Recorded Confirmed Type Multivit-Min/FA/Lycopen/Lutein 1 tab PO DAILY 03/29/16 03/30/22 History [Centrum Silver Tablet] Omeprazole 20 mg PO DAILY 03/29/16 03/30/22 History Budesonide-Formot 160-4.5 Mcg 2 puff INHALATION RT-BID #1 inhaler 04/06/16 03/30/22 Rx [Symbicort 160-4.5 Mcg Inhaler] Albuterol Inhaler [Ventolin Hfa 2 puff INHALATION RT-QID PRN 08/09/21 03/30/22 History Inhaler] Alendronate Sodium [Fosamax] 70 mg PO MO 08/09/21 03/30/22 History Cholecalciferol [Vitamin D3 (25 50 mcg PO DAILY 08/09/21 03/30/22 History Mcg = 1000 Iu)] Ipratropium-Albuterol Nebulize 3 ml INHALATION RT-BID PRN 08/09/21 03/30/22 History [Duoneb 0.5 mg-3 mg/3 ml Soln] Levothyroxine Sodium [Synthroid] 112 mcg PO MOTUWETHFR 08/09/21 03/30/22 History Magnesium Oxide [Darden] 500 mg PO DAILY 08/09/21 03/30/22 History Montelukast [Singulair] 10 mg PO DAILY 08/09/21 03/30/22 History Aspirin 81 mg PO DAILY #30 tab 08/11/21 03/30/22 Rx Atorvastatin [Lipitor] 80 mg PO HS #30 tab 08/11/21 03/30/22 Rx Clopidogrel [Plavix] 75 mg PO DAILY #30 tab 08/11/21 03/30/22 Rx Nitroglycerin Sl Tabs [Nitrostat] 0.4 mg SUBLINGUAL Q5M PRN #14 tab 08/11/21 03/30/22 Rx ALPRAZolam [Xanax] 0.25 mg PO Q8HR PRN 10/06/21 03/30/22 History modafiniL [Provigil] 100 mg PO DAILY PRN 10/06/21 03/30/22 History Isosorbide Mononitrate ER [Imdur] 30 mg PO DAILY 30 Days #30 tab 10/09/21 03/30/22 Rx Acetaminophen [Tylenol Arthritis] 650 mg PO Q8HR PRN 03/19/22 03/30/22 History Empagliflozin [Jardiance] 10 mg PO DAILY 03/19/22 03/30/22 History Fluticasone Propionate 2 spray EA NOSTRIL DAILY 03/19/22 03/30/22 History Levothyroxine Sodium [Synthroid] 56 mcg PO SUSA 03/19/22 03/30/22 History Metoprolol Succinate (ER) [Toprol 100 mg PO DAILY 03/19/22 03/30/22 History XL] Verapamil HCl [Verapamil ER] 120 mg PO DAILY 03/19/22 03/30/22 History Furosemide [Lasix] 40 mg PO DAILY 03/30/22 03/30/22 History Allergies Allergy/AdvReac Type Severity Reaction Status Date / Time clarithromycin [From Biaxin] Allergy Unknown Verified 03/30/22 12:34 gemifloxacin [From Factive] Allergy Unknown Verified 03/30/22 12:34 prednisone Allergy Unknown Verified 03/30/22 12:34 amoxicillin [From Augmentin] AdvReac Nausea & Verified 03/30/22 12:34 Vomiting & Diarrhea clavulanic acid AdvReac Nausea & Verified 03/30/22 12:34 [From Augmentin] Vomiting & Diarrhea Physical Exam Vitals: Vital Signs Temp Pulse Pulse Resp BP BP BP 03/31/22 07:00 97.9 F 84 16 110/63 03/31/22 00:43 98.2 F 84 18 113/55 03/30/22 20:30 76 03/30/22 20:15 78 03/30/22 18:45 97.5 F L 79 101/53 03/30/22 14:55 97.8 F 78 114/56 03/30/22 14:39 97.8 F 03/30/22 14:00 77 18 104/63 03/30/22 13:03 77 03/30/22 13:00 74 113/57 03/30/22 12:58 73 03/30/22 12:31 71 18 113/57 03/30/22 11:29 03/30/22 11:28 18 03/30/22 10:55 97.6 F 85 22 124/63 Pulse Ox 03/31/22 07:00 96 03/31/22 00:43 97 03/30/22 20:30 03/30/22 20:15 03/30/22 18:45 98 03/30/22 14:55 96 03/30/22 14:39 03/30/22 14:00 95 03/30/22 13:03 03/30/22 13:00 99 03/30/22 12:58 03/30/22 12:31 96 03/30/22 11:29 97 03/30/22 11:28 88 L 03/30/22 10:55 92 L Intake and Output 03/30/22 03/31/22 03/31/22 22:59 06:59 14:59 Intake Total 118 Balance 118 Intake: Oral 118 Other: Voiding Method Toilet # Voids 1 5 Weight 53.524 kg Results 03/30/22 11:28 03/30/22 11:28 Cardiac Enzymes 03/30/22 03/30/22 Range/Units 11:28 11:28 AST 55 H (14-36) U/L Troponin I <0.012 (0.000-0.034) ng/mL Coagulation 03/30/22 Range/Units 11:28 PT 10.3 (9.0-12.0) sec APTT 25.0 (22.0-30.0) sec CBC 03/30/22 Range/Units 11:28 WBC 17.9 H (3.8-10.6) k/uL RBC 3.68 L (3.80-5.40) m/uL Hgb 11.3 L (11.4-16.0) gm/dL Hct 35.4 (34.0-46.0) % Plt Count 241 (150-450) k/uL Comprehensive Metabolic Panel 03/30/22 Range/Units 11:28 Sodium 137 (137-145) mmol/L Potassium 4.5 (3.5-5.1) mmol/L Chloride 98 (98-107) mmol/L Carbon Dioxide 33 H (22-30) mmol/L BUN 18 H (7-17) mg/dL Creatinine 0.75 (0.52-1.04) mg/dL Glucose 96 (74-99) mg/dL Calcium 9.6 (8.4-10.2) mg/dL AST 55 H (14-36) U/L ALT 37 H (4-34) U/L Alkaline Phosphatase 113 (38-126) U/L Total Protein 8.2 (6.3-8.2) g/dL Albumin 3.8 (3.5-5.0) g/dL Current Medications Generic Name Dose Route Start Last Admin Trade Name Freq PRN Reason Stop Dose Admin Acetaminophen 650 mg 03/30/22 17:48 03/30/22 18:35 Acetaminophen Tab 325 Mg Tab PO 650 mg Q6HR PRN Administration Fever and/ or Pain Albuterol Sulfate 2 puff 03/30/22 17:48 Albuterol Hfa Inhaler INHALATION RT-QID PRN Shortness Of Breath Albuterol/Ipratropium 3 ml 03/30/22 16:00 03/30/22 20:15 Ipratropium-Albuterol 3 Ml Neb INHALATION 3 ml RT-QID PAUL Administration Albuterol/Ipratropium 3 ml 03/30/22 13:47 Ipratropium-Albuterol 3 Ml Neb INHALATION RT-Q4H PRN shortness of breath Alprazolam 0.25 mg 03/30/22 17:48 Alprazolam 0.25 Mg Tab PO Q8HR PRN Anxiety Aspirin 81 mg 03/31/22 09:00 Aspirin 81 Mg PO DAILY [facility] Atorvastatin Calcium 80 mg 03/30/22 21:00 03/30/22 19:51 Atorvastatin 80 Mg Tab PO 80 mg HS PAUL Administration Azithromycin 250 mg 03/31/22 09:00 Azithromycin 250 Mg Tab PO 04/02/22 09:01 DAILY [facility] Protocol Budesonide/Formoterol Fumarate 2 puff 03/30/22 20:00 03/30/22 20:15 Symbicort 160-4.5 Mcg Inhaler INHALATION 2 puff RT-BID PAUL Administration Cholecalciferol 50 mcg 03/31/22 09:00 Cholecalciferol 25 Mcg (1000 Iu) Tablet PO DAILY [facility] Clopidogrel Bisulfate 75 mg 03/31/22 09:00 Clopidogrel 75 Mg Tab PO DAILY [facility] Dapagliflozin 5 mg 03/31/22 09:00 Dapagliflozin Propanediol 5 Mg Tablet PO DAILY [facility] Fluticasone Propionate 2 spray 03/31/22 09:00 Fluticasone 50mcg/[place] Nasal 16gm EA NOSTRIL DAILY [facility] Furosemide 40 mg 03/30/22 21:00 03/30/22 19:51 Furosemide 10 Mg/Ml 4 Ml Vial IV 40 mg Q12HR [facility] Administration Ceftriaxone Sodium 2 gm/ 50 mls @ 100 mls/hr 03/31/22 09:00 Sodium Chloride IVPB Q24HR [facility] Protocol Isosorbide Mononitrate 30 mg 03/31/22 09:00 Isosorbide Mononitrate Er 30 Mg Tab.Er.24h PO DAILY [facility] Levothyroxine Sodium 56 mcg 03/31/22 06:30 03/31/22 05:51 Levothyroxine 112 Mcg Tab PO 56 mcg SUSA [facility] Administration Levothyroxine Sodium 112 mcg 03/30/22 18:00 03/30/22 18:02 Levothyroxine 112 Mcg Tab PO Not Given [id number] [facility] Magnesium Oxide 400 mg 03/31/22 09:00 Magnesium Oxide 400 Mg Tab PO DAILY [facility] Metoprolol Succinate 100 mg 03/31/22 09:00 Metoprolol Succinate (Er) 100 Mg Tab.Er.24h PO DAILY [facility] Miscellaneous Information 1 each 03/30/22 13:47 Pneumonia Protocol Utilized 1 Each Misc PO ONCE PRN Per Protocol Modafinil 100 mg 03/30/22 17:48 Modafinil 100 Mg Tab PO DAILY PRN Motion Sickness Montelukast Sodium 10 mg 03/31/22 09:00 Montelukast 10 Mg Tab PO DAILY [facility] Multivitamins 1 each 03/31/22 09:00 Multivitamins, Thera 1 Each Tab PO DAILY [facility] Nitroglycerin 0.4 mg 03/30/22 17:48 Nitroglycerin Sl Tabs 0.4 Mg Tab SUBLINGUAL Q5M PRN Chest Pain Pantoprazole Sodium 40 mg 03/31/22 07:30 03/31/22 05:51 Pantoprazole 40 Mg Tablet PO 40 mg DAILY@0730 [facility] Administration Verapamil HCl 120 mg 03/31/22 09:00 Verapamil Sr 120 Mg Tablet.Er PO DAILY PAUL Intake and Output 03/30/22 03/31/22 03/31/22 22:59 06:59 14:59 Intake Total 118 Balance 118 Intake: Oral 118 Other: Voiding Method Toilet # Voids 1 5 Weight 53.524 kg 03/30/22 11:28 03/30/22 11:28
[2022-03-31] MEDS: IPRATROPIUM-ALBUTEROL 3 ML NEB INHALATION SCH ×4 (08:41→20:06)
[2022-03-31] MEDS: SYMBICORT 160-4.5 MCG INHALER INHALATION SCH ×2 (08:42→20:06)
[2022-03-31] MEDS ORDERED: FUROSEMIDE 40 MG TAB PO SCH (09:00)
[2022-03-31 09:18] LABS: Basophils # (A) 0.06 X 10*3/uL (0.00-0.10); Basophils % (A) 0.6 %; Eosinophils # (A) 0.03 X 10*3/uL (0.04-0.35); Eosinophils % (A) 0.3 %; HCT 35.2 % (37.2-46.3); HGB 10.5 g/dL (12.0-15.0); Immature Grans, Automated 0.6 %; Lymphocytes # (A) 1.81 X 10*3/uL (0.90-5.00); MCH 30.3 pg (27.0-32.0); MCHC 29.8 g/dL (32.0-37.0); MCV 101.7 fL (80.0-97.0); Mean Platelet Volume 10.8 fL (9.5-12.2); Monocytes # (A) 0.96 X 10*3/uL (0.20-1.00); Monocytes % (A) 9.6 %; NRBC Per 100 WBC 0 /100 WBCS (0.0-0.0); Neutrophils # (A) 7.13 X 10*3/uL (1.80-7.70); Neutrophils % (A) 70.9 %; Platelet Count 200 X 10*3/uL (140-440); RBC 3.46 X 10*6/uL (4.10-5.20); RDW 14.9 % (11.5-14.5); WBC 10.05 X 10*3/uL (4.50-10.00)
[2022-03-31 09:47] LABS: ALT 33 U/L (8-44); AST 39 U/L (13-35); African American GFR (CKD) 62.1 (60.0-200.0); Albumin 3.5 g/dL (3.8-4.9); Albumin/Globulin Ratio 0.92 (1.60-3.17); Alkaline Phosphatase 83 U/L (41-126); Bilirubin, Conjugated <0.20 mg/dL (0.20-0.40); Blood Urea Nitrogen 14.8 mg/dL (9.0-27.0); Calcium 9.9 mg/dL (8.7-10.3); Carbon Dioxide 33.4 mmol/L (20.0-27.5); Chloride 97 mmol/L (96-109); Globulin 3.8 g/dL (1.6-3.3); Glucose 91 mg/dL (70-110); Non-African American GFR(CKD) 53.5 (60.0-200.0); Potassium 4.2 mmol/L (3.5-5.5); Sodium 139 mmol/L (135-145); Total Protein 7.3 g/dL (6.2-8.2)
--- NOTE | 2022-03-31 12:33 | P.PN ---
Subjective Progress Note Date: 03/31/22 Principal diagnosis: Leukocytosis and possible pneumonia Patient is a 81-year-old female with a past medical history significant for hypertension hyperlipidemia congestive heart failure presenting to ER for evaluation of increasing shortness of breath and cough and station symptom has been going on and off for the last few weeks, patient sent to the ER because of hypoxemia noticed to have an elevated white count and concern for possible pneumonia. on today's evaluation that is 03/31/2022, the patient denies having any fever or any chills, the patient is breathing comfortably currently on room air however did mention slight shortness of breath on exertion no chest pain though no worsening cough or sputum production no abdominal pain no diarrhea Objective - Vital Signs Vital signs: Vital Signs Temp 97.9 F 03/31/22 07:00 Pulse 80 03/31/22 08:54 Resp 16 03/31/22 07:00 BP 110/63 03/31/22 07:00 Pulse Ox 95 03/31/22 08:42 FiO2 Intake & Output 03/30/22 03/31/22 03/31/22 18:59 06:59 18:59 Intake Total 118 118 Balance 118 118 Weight 53.524 kg Intake: Oral 118 118 Other: Voiding Method Toilet # Voids 5 - Exam GENERAL DESCRIPTION: An elderly female up in the chair RESPIRATORY SYSTEM: Unlabored breathing , decreased breath sounds at bases HEART: S1 S2 regular rate and rhythm , ABDOMEN: Soft , no tenderness EXTREMITIES: No edema feet - Labs CBC & Chem 7: 03/31/22 05:58 03/31/22 05:58 Labs: Abnormal Lab Results - Last 24 Hours (Table) 03/30/22 03/30/22 03/31/22 Range/Units 11:28 11:28 05:58 WBC 17.9 H 10.05 H (3.8-10.6) k/uL RBC 3.68 L 3.46 L (3.80-5.40) m/uL Hgb 11.3 L 10.5 L (11.4-16.0) gm/dL Hct 35.2 L (37.2-46.3) % MCV 101.7 H (80.0-97.0) fL MCHC 29.8 L (32.0-37.0) g/dL RDW 14.9 H (11.5-14.5) % Immature Gran # 0.06 H (0.00-0.04) X 10*3/uL Neutrophils # 15.5 H (1.3-7.7) k/uL Eosinophils # 0.03 L (0.04-0.35) X 10*3/uL Carbon Dioxide 33 H (22-30) mmol/L Anion Gap (10.00-18.00) mmol/L BUN 18 H (7-17) mg/dL Est GFR (CKD-EPI)NonAf (60.0-200.0) Conjugated Bilirubin (0.20-0.40) mg/dL AST 55 H (14-36) U/L ALT 37 H (4-34) U/L C-Reactive Protein (0.00-0.80) mg/dL Albumin (3.8-4.9) g/dL Globulin (1.6-3.3) g/dL Albumin/Globulin Ratio (1.60-3.17) g/dL 03/31/22 Range/Units 05:58 WBC (3.8-10.6) k/uL RBC (3.80-5.40) m/uL Hgb (11.4-16.0) gm/dL Hct (37.2-46.3) % MCV (80.0-97.0) fL MCHC (32.0-37.0) g/dL RDW (11.5-14.5) % Immature Gran # (0.00-0.04) X 10*3/uL Neutrophils # (1.3-7.7) k/uL Eosinophils # (0.04-0.35) X 10*3/uL Carbon Dioxide 33.4 H (22-30) mmol/L Anion Gap 8.60 L (10.00-18.00) mmol/L BUN (7-17) mg/dL Est GFR (CKD-EPI)NonAf 53.5 L (60.0-200.0) Conjugated Bilirubin <0.20 L (0.20-0.40) mg/dL AST 39 H (14-36) U/L ALT (4-34) U/L C-Reactive Protein 6.00 H (0.00-0.80) mg/dL Albumin 3.5 L (3.8-4.9) g/dL Globulin 3.8 H (1.6-3.3) g/dL Albumin/Globulin Ratio 0.92 L (1.60-3.17) g/dL Microbiology - Last 24 Hours (Table) 03/31/22 00:03 Sputum Culture - Preliminary Sputum Assessment and Plan (1) Pneumonia Current Visit: No Status: Acute Code(s): J18.9 - PNEUMONIA, UNSPECIFIED ORGANISM SNOMED Code(s): 538664428 Plan: 1patient presented to hospital with increasing shortness of breath cough bringing up some greenish sputum symptom has been going on for about a week patient did have elevated white count chest x-ray with interstitial infiltrate with concern for possible committed community-acquired pneumonia 2 sputum for gram stain and culture are currently pending 3- CRP and pro calcitonin level currently pending 4patient to continue with Rocephin and Zithromax while waiting for the culture finalized and monitor clinical course closely Time with Patient: Less than 30
[2022-03-31] MEDS ORDERED: LEVOFLOXACIN 750 MG TAB PO SCH (14:00)
--- NOTE | 2022-03-31 19:15 | P.PN ---
Subjective Progress Note Date: 03/31/22 81-year-old female with history of CHF, hypertension, hyperlipidemia, hypothyroidism, presenting to the emergency Department with cough and dyspnea. Onset of symptoms was the past week. Patient has not felt well over the past 2 weeks. Patient does have cough with occasional green sputum. No fever. Vamsi khanna feels fatigued and somewhat short of breath. She went to urgent care and was sent here secondary to hypoxia Workup completed in ED EKG reveals sinus rhythm with left axis deviation, septal Q waves and no acute ST changes Chest x-ray reveals increased interstitial markings consistent with CHF Blood work reveals a WBC of 17.9, hemoglobin of 11.3 and platelet count of 241, sodium 137, potassium 4.5, BUN/creatinine of 18/0.75, AST/ALT elevated at 55/37, troponin of less than 0.012, BNP of 1870, Influenza A and B, RSV and COVID-19 is negative Objective - Vital Signs Vital signs: Vital Signs Temp 97.8 F 03/31/22 13:42 Pulse 84 03/31/22 13:42 Resp 16 03/31/22 13:42 BP 107/61 03/31/22 13:42 Pulse Ox 94 L 03/31/22 13:42 FiO2 Intake & Output 03/30/22 03/31/22 03/31/22 18:59 06:59 18:59 Intake Total 118 243 Balance 118 243 Weight 53.524 kg Intake: Oral 118 243 Other: Voiding Method Toilet # Voids 5 - Exam GENERAL: The patient is alert and oriented x3, not in any acute distress. Well developed, well nourished. HEENT: Pupils are round and equally reacting to light. EOMI. No scleral icterus. No conjunctival pallor. Normocephalic, atraumatic. No pharyngeal erythema. No thyromegaly. CARDIOVASCULAR: S1 and S2 present. No murmurs, rubs, or gallops. PULMONARY: Positive wheezing and crackles. ABDOMEN: Soft, nontender, nondistended, normoactive bowel sounds. No palpable organomegaly. MUSCULOSKELETAL: No joint swelling or deformity. EXTREMITIES: No cyanosis, clubbing, or pedal edema. NEUROLOGICAL: Gross neurological examination did not reveal any focal deficits. SKIN: No rashes. - Labs CBC & Chem 7: 03/31/22 05:58 03/31/22 05:58 Labs: Abnormal Lab Results - Last 24 Hours (Table) 03/31/22 03/31/22 Range/Units 05:58 05:58 WBC 10.05 H (4.50-10.00) X 10*3/uL RBC 3.46 L (4.10-5.20) X 10*6/uL Hgb 10.5 L (12.0-15.0) g/dL Hct 35.2 L (37.2-46.3) % MCV 101.7 H (80.0-97.0) fL MCHC 29.8 L (32.0-37.0) g/dL RDW 14.9 H (11.5-14.5) % Immature Gran # 0.06 H (0.00-0.04) X 10*3/uL Eosinophils # 0.03 L (0.04-0.35) X 10*3/uL Carbon Dioxide 33.4 H (20.0-27.5) mmol/L Anion Gap 8.60 L (10.00-18.00) mmol/L Est GFR (CKD-EPI)NonAf 53.5 L (60.0-200.0) Conjugated Bilirubin <0.20 L (0.20-0.40) mg/dL AST 39 H (13-35) U/L C-Reactive Protein 6.00 H (0.00-0.80) mg/dL Albumin 3.5 L (3.8-4.9) g/dL Globulin 3.8 H (1.6-3.3) g/dL Albumin/Globulin Ratio 0.92 L (1.60-3.17) g/dL Microbiology - Last 24 Hours (Table) 03/30/22 11:41 Blood Culture - Preliminary Blood No Growth after 24 hours 03/30/22 11:24 Blood Culture - Preliminary Blood No Growth after 24 hours 03/31/22 00:03 Sputum Culture - Preliminary Sputum Assessment and Plan Assessment: 1. Community-acquired pneumonia/sepsis - As indicated by elevated white blood count of 17,000, tachypnea and pulse ox of 88% - Patient has been placed on Levaquin 750 mg IV daily - DuoNeb nebulizer treatments 4 times a day and when necessary - Consult ID for further evaluation 2. Acute exacerbation CHF; chest x-ray reveals increased interstitial markings consistent with CHF; BNP is elevated at 1870; troponin is negative at 0.012 - Patient has been placed on Lasix 40 mg IV every 12 hours; we will monitor strict LIBBY's, daily weights, low salt and fluid restricted diet - Continue with home dose of Farxiga - Consult cardiology for further recommendations 3. Transaminitis; AST/ALT is elevated at 55/37; possibly related to statin use; we will monitor liver enzymes closely and hold statins if transaminases continue to trend up 4. Mild AK I; BUN is elevated at 18 with creatinine normal at 0.75; we will hold off on IV fluid hydration given CHF exacerbation; we will monitor renal function and electrolytes; strict LIBBY's and daily weights; avoid nephrotoxins and hypotension 5. Hypertension; metoprolol 100 mg daily along with verapamil 120 mg daily 6. Hyperlipidemia; Lipitor 80 mg daily 7. Hypothyroidism; continue with home dose of levothyroxine 56 MCG alternating with 112 MCG daily 8. Asthma/COPD; we will continue with home inhaler therapy; DuoNeb nebulizer treatments; Singulair 10 mg daily 9. History of CAD; continue with home dose of aspirin, statins and Plavix along with Imdur 30 mg daily and beta blockers
[2022-03-31] MEDS: ATORVASTATIN 80 MG TAB PO SCH (19:48)
[2022-04-01 02:18] VITALS: RESP 16
[2022-04-01] MEDS: PANTOPRAZOLE 40 MG TABLET PO SCH (06:12)
[2022-04-01] MEDS: LEVOTHYROXINE 112 MCG TAB PO SCH (06:12)
[2022-04-01] MEDS: VERAPAMIL SR 120 MG TABLET.ER PO SCH (08:28)
[2022-04-01] MEDS: ASPIRIN 81 MG PO SCH (08:28)
[2022-04-01] MEDS: FUROSEMIDE 10 MG/ML 4 ML VIAL IV SCH (08:28)
[2022-04-01] MEDS: DAPAGLIFLOZIN PROPANEDIOL 5 MG TABLET PO SCH (08:28)
[2022-04-01] MEDS: AZITHROMYCIN 250 MG TAB PO SCH (08:28)
[2022-04-01] MEDS: METOPROLOL SUCCINATE (ER) 100 MG TAB.ER.24H PO SCH (08:28)
[2022-04-01] MEDS: MONTELUKAST 10 MG TAB PO SCH (08:28)
[2022-04-01] MEDS: CHOLECALCIFEROL 25 MCG (1000 IU) TABLET PO SCH (08:28)
[2022-04-01] MEDS: MAGNESIUM OXIDE 400 MG TAB PO SCH (08:28)
[2022-04-01] MEDS: CLOPIDOGREL 75 MG TAB PO SCH (08:28)
[2022-04-01] MEDS: MULTIVITAMINS, THERA 1 EACH TAB PO SCH (08:28)
[2022-04-01] MEDS: ISOSORBIDE MONONITRATE ER 30 MG TAB.ER.24H PO SCH (08:28)
--- NOTE | 2022-04-01 08:28 | P.PN ---
Subjective Progress Note Date: 04/01/22 Principal diagnosis: Heart failure This is a very pleasant 81-year-old female patient with a past medical history significant for coronary artery disease with previous stenting of the LAD and recent heart catheterization showing patent stent in the LAD and mild nonobstructive coronary artery disease as well as borderline diabetes and hypertension and dyslipidemia and valvular heart disease presented to the hospital complaining of increasing shortness of breath. The symptoms started about a week ago. She describes progressive exertional dyspnea with no orthopnea or PND. She has no cough and no sputum production beach she has no fever and no chills. No symptoms of chest pain or chest discomfort and no lower extremities edema noted. She has no change in her weight. She has been compliant with her medications. Because of the shortness of breath became worse. To the hospital for further investigation. She underwent a workup including chest x-ray showed evidence of heart failure and pulmonary vascular congestions and possible underlying pneumonia. The EKG showed sinus rhythm with Q waves anteriorly and multiple patient QRS. NT proBNP came to be elevated. The rest of the blood work came in to be unremarkable. She was given Lasix and she has improved in the shortness of breath. When she was seen and evaluated this morning bilateral rhonchi and diminished breathing sounds bilaterally but she has no lower extremities edema noted. The most recent echo from 2022 revealed normal biventricular systolic function with evidence of moderate aortic regurgitation and moderate aortic stenosis and moderate mitral regurgitation and moderate mitral stenosis and moderate pulmonary hypertension. April [id number] The patient was seen this morning. She is feeling better. The shortness of breath has improved. No lower extremities edema noted as well. She is not on oxygen at this point. On physical examination she does have clear breathing sounds bilaterally with no lower exam is edema noted. From a perivascular standpoint of view, the patient is discharged home. I'm going to stop the Lasix IV and start the patient on Lasix by mouth with a higher dose than before at 40 mg twice a day. The patient can be discharged home later on today. Assessment Congestive heart failure exacerbation with evidence off left more than right heart failure, related to heart failure with preserved ejection fraction inpatient was underlying valvular heart disease Coronary artery disease with previous stenting of the LAD. The stent is patent on recent heart catheterization Borderline diabetes and hypertension and dyslipidemia Plan DC Lasix IV and start the patient on Lasix by mouth The patient can be discharged Objective - Vital Signs Vital signs: Vital Signs Temp 98.1 F 04/01/22 07:00 Pulse 79 04/01/22 07:00 Resp 16 04/01/22 07:00 BP 118/63 04/01/22 07:00 Pulse Ox 91 L 04/01/22 07:00 FiO2 Intake & Output 03/31/22 04/01/22 04/01/22 18:59 06:59 18:59 Intake Total 368 Balance 368 Intake: Oral 368 Other: Voiding Method Toilet # Voids 6 4 - Labs CBC & Chem 7: 03/31/22 05:58 03/31/22 05:58 Labs: Abnormal Lab Results - Last 24 Hours (Table) 03/31/22 03/31/22 Range/Units 05:58 05:58 WBC 10.05 H (4.50-10.00) X 10*3/uL RBC 3.46 L (4.10-5.20) X 10*6/uL Hgb 10.5 L (12.0-15.0) g/dL Hct 35.2 L (37.2-46.3) % MCV 101.7 H (80.0-97.0) fL MCHC 29.8 L (32.0-37.0) g/dL RDW 14.9 H (11.5-14.5) % Immature Gran # 0.06 H (0.00-0.04) X 10*3/uL Eosinophils # 0.03 L (0.04-0.35) X 10*3/uL Carbon Dioxide 33.4 H (20.0-27.5) mmol/L Anion Gap 8.60 L (10.00-18.00) mmol/L Est GFR (CKD-EPI)NonAf 53.5 L (60.0-200.0) Conjugated Bilirubin <0.20 L (0.20-0.40) mg/dL AST 39 H (13-35) U/L C-Reactive Protein 6.00 H (0.00-0.80) mg/dL Albumin 3.5 L (3.8-4.9) g/dL Globulin 3.8 H (1.6-3.3) g/dL Albumin/Globulin Ratio 0.92 L (1.60-3.17) g/dL Microbiology - Last 24 Hours (Table) 03/31/22 00:03 Gram Stain - Preliminary Sputum Sputum Culture - Preliminary 03/30/22 11:41 Blood Culture - Preliminary Blood No Growth after 24 hours 03/30/22 11:24 Blood Culture - Preliminary Blood No Growth after 24 hours
[2022-04-01] MEDS: FLUTICASONE 50MCG/SPRAY NASAL 16GM EA NOSTRIL SCH (08:29)
[2022-04-01] MEDS: IPRATROPIUM-ALBUTEROL 3 ML NEB INHALATION SCH ×4 (08:34→19:40)
[2022-04-01] MEDS: SYMBICORT 160-4.5 MCG INHALER INHALATION SCH ×2 (08:34→19:40)
[2022-04-01 09:40] LABS: Basophils # (A) 0.06 X 10*3/uL (0.00-0.10); Basophils % (A) 0.6 %; Eosinophils # (A) 0.03 X 10*3/uL (0.04-0.35); Eosinophils % (A) 0.3 %; HCT 35.7 % (37.2-46.3); HGB 10.7 g/dL (12.0-15.0); Lymphocytes # (A) 2.08 X 10*3/uL (0.90-5.00); MCH 30.1 pg (27.0-32.0); MCV 100.3 fL (80.0-97.0); Mean Platelet Volume 10.3 fL (9.5-12.2); Monocytes # (A) 1.17 X 10*3/uL (0.20-1.00); Monocytes % (A) 11.8 %; NRBC Per 100 WBC 0 /100 WBCS (0.0-0.0); Neutrophils # (A) 6.46 X 10*3/uL (1.80-7.70); Neutrophils % (A) 65.3 %; Platelet Count 230 X 10*3/uL (140-440); RBC 3.56 X 10*6/uL (4.10-5.20); RDW 14.7 % (11.5-14.5)
[2022-04-01 10:15] LABS: African American GFR (CKD) 55.3 (60.0-200.0); Anion Gap 9.2 mmol/L (10.00-18.00); BUN/Creat Ratio 12.73 Ratio (12.00-20.00); Calcium 9.8 mg/dL (8.7-10.3); Carbon Dioxide 33.8 mmol/L (20.0-27.5); Non-African American GFR(CKD) 47.7 (60.0-200.0); Potassium 4.3 mmol/L (3.5-5.5)
[2022-04-01] MEDS: ACETAMINOPHEN TAB 325 MG TAB PO PRN (15:37)
[2022-04-01] MEDS: FUROSEMIDE 40 MG TAB PO SCH (15:44)
--- NOTE | 2022-04-01 18:06 | P.PN ---
Subjective Progress Note Date: 04/01/22 Principal diagnosis: Leukocytosis and possible pneumonia Patient is a 81-year-old female with a past medical history significant for hypertension hyperlipidemia congestive heart failure presenting to ER for evaluation of increasing shortness of breath and cough and station symptom has been going on and off for the last few weeks, patient sent to the ER because of hypoxemia noticed to have an elevated white count and concern for possible pneumonia. on today's evaluation that is 04/01/2022, the patient remains to be afebrile, the patient is breathing comfortably on room air , the patient denies chest pain though no worsening cough or sputum production no abdominal pain no diarrhea Objective - Vital Signs Vital signs: Vital Signs Temp 98 F 04/01/22 14:25 Pulse 99 04/01/22 14:25 Resp 16 04/01/22 14:25 BP 109/53 04/01/22 14:25 Pulse Ox 98 04/01/22 14:25 FiO2 Intake & Output 03/31/22 04/01/22 04/01/22 18:59 06:59 18:59 Intake Total 368 118 Balance 368 118 Intake: Oral 368 118 Other: Voiding Method Toilet Toilet # Voids 6 4 7 - Exam GENERAL DESCRIPTION: An elderly female up in the chair RESPIRATORY SYSTEM: Unlabored breathing , decreased breath sounds at bases HEART: S1 S2 regular rate and rhythm , ABDOMEN: Soft , no tenderness EXTREMITIES: No edema feet - Labs CBC & Chem 7: 04/01/22 03:16 04/01/22 03:16 Labs: Abnormal Lab Results - Last 24 Hours (Table) 04/01/22 04/01/22 Range/Units 03:16 03:16 RBC 3.56 L (4.10-5.20) X 10*6/uL Hgb 10.7 L (12.0-15.0) g/dL Hct 35.7 L (37.2-46.3) % MCV 100.3 H (80.0-97.0) fL MCHC 30.0 L (32.0-37.0) g/dL RDW 14.7 H (11.5-14.5) % Immature Gran # 0.10 H (0.00-0.04) X 10*3/uL Monocytes # 1.17 H (0.20-1.00) X 10*3/uL Eosinophils # 0.03 L (0.04-0.35) X 10*3/uL Chloride 95 L (96-109) mmol/L Carbon Dioxide 33.8 H (20.0-27.5) mmol/L Anion Gap 9.20 L (10.00-18.00) mmol/L Est GFR (CKD-EPI)AfAm 55.3 L (60.0-200.0) Est GFR (CKD-EPI)NonAf 47.7 L (60.0-200.0) Glucose 111 H (70-110) mg/dL Microbiology - Last 24 Hours (Table) 03/30/22 11:41 Blood Culture - Preliminary Blood No Growth after 48 hours 03/30/22 11:24 Blood Culture - Preliminary Blood No Growth after 48 hours 03/31/22 00:03 Gram Stain - Preliminary Sputum Sputum Culture - Preliminary Assessment and Plan (1) Pneumonia Current Visit: No Status: Acute Code(s): J18.9 - PNEUMONIA, UNSPECIFIED ORGANISM SNOMED Code(s): 111239310 Plan: 1patient presented to hospital with increasing shortness of breath cough bringing up some greenish sputum symptom has been going on for about a week patient did have elevated white count chest x-ray with interstitial infiltrate with concern for possible committed community-acquired pneumonia 2 sputum for gram stain and culture currently pending 3- CRP and pro calcitonin level mildly elevated 4patient to continue with Rocephin and Zithromax while waiting for the culture finalized and hopefully finish therapy with oral antibiotics Time with Patient: Less than 30
--- NOTE | 2022-04-01 18:56 | P.PN ---
Subjective Progress Note Date: 04/01/22 Principal diagnosis: Community-acquired pneumonia/sepsis Acute exacerbation CHF Transaminitis Mild acute renal injury 81-year-old female with history of CHF, hypertension, hyperlipidemia, hypothyroidism, presenting to the emergency Department with cough and dyspnea. Onset of symptoms was the past week. Patient has not felt well over the past 2 weeks. Patient does have cough with occasional green sputum. No fever. Patient feels fatigued and somewhat short of breath. She went to urgent care and was sent here secondary to hypoxia Workup completed in ED EKG reveals sinus rhythm with left axis deviation, septal Q waves and no acute ST changes Chest x-ray reveals increased interstitial markings consistent with CHF Blood work reveals a WBC of 17.9, hemoglobin of 11.3 and platelet count of 241, sodium 137, potassium 4.5, BUN/creatinine of 18/0.75, AST/ALT elevated at 55/37, troponin of less than 0.012, BNP of 1870, Influenza A and B, RSV and COVID-19 is negative 04/01/2022, the patient is seen and evaluated in room at bedside; remains to be afebrile, the patient is breathing comfortably on room air , the patient denies chest pain though no worsening cough or sputum production no abdominal pain no diarrhea patient presented to hospital with increasing shortness of breath cough bringing up some greenish sputum symptom has been going on for about a week patient did have elevated white count chest x-ray with interstitial infiltrate with concern for possible committed community-acquired pneumonia sputum for gram stain and culture currently pending - CRP and pro calcitonin level mildly elevated patient to continue with Rocephin and Zithromax while waiting for the culture finalized and hopefully finish therapy with oral antibiotics Objective - Vital Signs Vital signs: Vital Signs Temp 98.1 F 04/01/22 07:00 Pulse 84 04/01/22 12:20 Resp 16 04/01/22 07:00 BP 118/63 04/01/22 07:00 Pulse Ox 92 L 04/01/22 08:37 FiO2 Intake & Output 03/31/22 04/01/22 04/01/22 18:59 06:59 18:59 Intake Total 368 Balance 368 Intake: Oral 368 Other: Voiding Method Toilet Toilet # Voids 6 4 - Exam GENERAL: The patient is alert and oriented x3, not in any acute distress. Well developed, well nourished. HEENT: Pupils are round and equally reacting to light. EOMI. No scleral icterus. No conjunctival pallor. Normocephalic, atraumatic. No pharyngeal erythema. No thyromegaly. CARDIOVASCULAR: S1 and S2 present. No murmurs, rubs, or gallops. PULMONARY: Positive wheezing and crackles. ABDOMEN: Soft, nontender, nondistended, normoactive bowel sounds. No palpable organomegaly. MUSCULOSKELETAL: No joint swelling or deformity. EXTREMITIES: No cyanosis, clubbing, or pedal edema. NEUROLOGICAL: Gross neurological examination did not reveal any focal deficits. SKIN: No rashes. - Labs CBC & Chem 7: 04/01/22 03:16 04/01/22 03:16 Labs: Abnormal Lab Results - Last 24 Hours (Table) 04/01/22 04/01/22 Range/Units 03:16 03:16 RBC 3.56 L (4.10-5.20) X 10*6/uL Hgb 10.7 L (12.0-15.0) g/dL Hct 35.7 L (37.2-46.3) % MCV 100.3 H (80.0-97.0) fL MCHC 30.0 L (32.0-37.0) g/dL RDW 14.7 H (11.5-14.5) % Immature Gran # 0.10 H (0.00-0.04) X 10*3/uL Monocytes # 1.17 H (0.20-1.00) X 10*3/uL Eosinophils # 0.03 L (0.04-0.35) X 10*3/uL Chloride 95 L (96-109) mmol/L Carbon Dioxide 33.8 H (20.0-27.5) mmol/L Anion Gap 9.20 L (10.00-18.00) mmol/L Est GFR (CKD-EPI)AfAm 55.3 L (60.0-200.0) Est GFR (CKD-EPI)NonAf 47.7 L (60.0-200.0) Glucose 111 H (70-110) mg/dL Microbiology - Last 24 Hours (Table) 03/31/22 00:03 Gram Stain - Preliminary Sputum Sputum Culture - Preliminary 03/30/22 11:41 Blood Culture - Preliminary Blood No Growth after 24 hours 03/30/22 11:24 Blood Culture - Preliminary Blood No Growth after 24 hours Assessment and Plan Assessment: 1. Community-acquired pneumonia/sepsis - As indicated by elevated white blood count of 17,000, tachypnea and pulse ox of 88% - Patient has been placed on Levaquin 750 mg IV daily - DuoNeb nebulizer treatments 4 times a day and when necessary - Consult ID for further evaluation 2. Acute exacerbation CHF; chest x-ray reveals increased interstitial markings consistent with CHF; BNP is elevated at 1870; troponin is negative at 0.012 - Patient has been placed on Lasix 40 mg IV every 12 hours; we will monitor strict LIBBY's, daily weights, low salt and fluid restricted diet - Continue with home dose of Farxiga - Consult cardiology for further recommendations 3. Transaminitis; AST/ALT is elevated at 55/37; possibly related to statin use; we will monitor liver enzymes closely and hold statins if transaminases continue to trend up 4. Mild AK I; BUN is elevated at 18 with creatinine normal at 0.75; we will hold off on IV fluid hydration given CHF exacerbation; we will monitor renal function and electrolytes; strict LIBBY's and daily weights; avoid nephrotoxins and hypotension 5. Hypertension; metoprolol 100 mg daily along with verapamil 120 mg daily 6. Hyperlipidemia; Lipitor 80 mg daily 7. Hypothyroidism; continue with home dose of levothyroxine 56 MCG alternating with 112 MCG daily 8. Asthma/COPD; we will continue with home inhaler therapy; DuoNeb nebulizer treatments; Singulair 10 mg daily 9. History of CAD; continue with home dose of aspirin, statins and Plavix along with Imdur 30 mg daily and beta blockers
[2022-04-01] MEDS: ATORVASTATIN 80 MG TAB PO SCH (20:07)
[2022-04-02] MEDS: LEVOTHYROXINE 112 MCG TAB PO SCH (06:40)
[2022-04-02] MEDS: PANTOPRAZOLE 40 MG TABLET PO SCH (06:41)
[2022-04-02] MEDS: IPRATROPIUM-ALBUTEROL 3 ML NEB INHALATION SCH ×2 (07:16→11:07)
[2022-04-02] MEDS: SYMBICORT 160-4.5 MCG INHALER INHALATION SCH (07:16)
[2022-04-02 08:25] VITALS: BP 111/60; TEMP 97.7
[2022-04-02] MEDS: ASPIRIN 81 MG PO SCH (08:43)
[2022-04-02] MEDS: CLOPIDOGREL 75 MG TAB PO SCH (08:44)
[2022-04-02] MEDS: CHOLECALCIFEROL 25 MCG (1000 IU) TABLET PO SCH (08:44)
[2022-04-02] MEDS: AZITHROMYCIN 250 MG TAB PO SCH (08:44)
[2022-04-02] MEDS: FLUTICASONE 50MCG/SPRAY NASAL 16GM EA NOSTRIL SCH (08:45)
[2022-04-02] MEDS: ISOSORBIDE MONONITRATE ER 30 MG TAB.ER.24H PO SCH (08:45)
[2022-04-02] MEDS: DAPAGLIFLOZIN PROPANEDIOL 5 MG TABLET PO SCH (08:45)
[2022-04-02] MEDS: FUROSEMIDE 40 MG TAB PO SCH (08:45)
[2022-04-02] MEDS: METOPROLOL SUCCINATE (ER) 100 MG TAB.ER.24H PO SCH (08:46)
[2022-04-02] MEDS: MONTELUKAST 10 MG TAB PO SCH (08:46)
[2022-04-02] MEDS: VERAPAMIL SR 120 MG TABLET.ER PO SCH (08:46)
[2022-04-02] MEDS: MAGNESIUM OXIDE 400 MG TAB PO SCH (08:46)
[2022-04-02] MEDS: MULTIVITAMINS, THERA 1 EACH TAB PO SCH (08:46)
[2022-04-02 08:51] LABS: Basophils # (A) 0.07 X 10*3/uL (0.00-0.10); Basophils % (A) 0.8 %; Eosinophils # (A) 0.05 X 10*3/uL (0.04-0.35); Eosinophils % (A) 0.5 %; HCT 34.4 % (37.2-46.3); HGB 10.5 g/dL (12.0-15.0); Immature Grans, Automated 1.3 %; Lymphocytes % (A) 23.8 %; MCH 30.1 pg (27.0-32.0); MCHC 30.5 g/dL (32.0-37.0); MCV 98.6 fL (80.0-97.0); Mean Platelet Volume 10.3 fL (9.5-12.2); Monocytes # (A) 0.98 X 10*3/uL (0.20-1.00); Monocytes % (A) 10.6 %; NRBC Per 100 WBC 0 /100 WBCS (0.0-0.0); Neutrophils # (A) 5.83 X 10*3/uL (1.80-7.70); Platelet Count 212 X 10*3/uL (140-440); RBC 3.49 X 10*6/uL (4.10-5.20); RDW 14.8 % (11.5-14.5); WBC 9.25 X 10*3/uL (4.50-10.00)
[2022-04-02 09:33] LABS: African American GFR (CKD) 81.3 (60.0-200.0); BUN/Creat Ratio 17.75 Ratio (12.00-20.00); Blood Urea Nitrogen 14.2 mg/dL (9.0-27.0); Calcium 9.4 mg/dL (8.7-10.3); Non-African American GFR(CKD) 70.1 (60.0-200.0); Potassium 4.1 mmol/L (3.5-5.5)
--- NOTE | 2022-04-02 10:03 | P.PN ---
Subjective Progress Note Date: 04/02/22 History of present illness: This is a very pleasant 81-year-old female patient with a past medical history significant for coronary artery disease with previous stenting of the LAD and recent heart catheterization showing patent stent in the LAD and mild nonobstructive coronary artery disease as well as borderline diabetes and hypertension and dyslipidemia and valvular heart [facility]ness of breath. The symptoms started about a week ago. She describes progressive exertional dyspnea with no orthopnea or PND. She has no cough and no sputum production beach she has no fever and no chills. No symptoms of chest pain or chest discomfort and no lower extremities edema noted. She has no change in her weight. She has been compliant with her medications. Because of the shortness of breath became worse. To the hospital for further investigation. She underwent a workup including chest x-ray showed evidence of heart failure and pulmonary vascular congestions and possible underlying pneumonia. The EKG showed sinus rhythm with Q waves anteriorly and multiple patient QRS. NT proBNP came to be elevated. The rest of the blood work came in to be unremarkable. She was given Lasix and she has improved in the shortness of breath. When she was seen and evaluated this morning bilateral rhonchi and diminished breathing sounds bilaterally but she has no lower extremities edema noted. The most recent echo from 2022 revealed normal biventricular systolic function with evidence of moderate aortic regurgitation and moderate aortic stenosis and moderate mitral regurgitation and moderate mitral stenosis and moderate pulmonary hypertension. April [id number] The patient was seen this morning. She is feeling better. The shortness of b reath has improved. No lower extremities edema noted as well. She is not on oxygen at this point. On physical examination she does have clear breathing sounds bilaterally with no lower exam is edema noted. From a perivascular standpoint of view, the patient is discharged home. I'm going to stop the Lasix IV and start the patient on Lasix by mouth with a higher dose than before at 40 mg twice a day. The patient can be discharged home later on today. 04/02 Patient has been transitioned to oral Lasix patient denies any new concerns today. Pulse ox is 92-95% on room air, heart rate in the 70s, blood pressure 111/60. Repeat blood work reveals WBC 9.2, hemoglobin 10.5. Potassium 4.1, BUN 14 and creatinine 0.8. Physical examination: Gen: This i 81-year-old female. She is resting in bed and appears to be comfortable and in no acute distress. VS: reviewed HEENT: Head is atraumatic, normocephalic. Pupils equal, round. Sclerae is anicteric. NECK: Supple. No JVD. LUNGS: Clear to auscultation. No wheezes or rhonchi. No intercostal retractions. HEART: Regular rate and rhythm. ABDOMEN: Soft. No tenderness. EXTREMITIES: No pedal edema. NEUROLOGICAL: Patient is awake, alert and oriented x3. Assessment: Congestive heart failure exacerbation with evidence of left more than right heart failure, related to heart failure with preserved ejection fraction inpatient was underlying valvular heart disease Coronary artery disease with previous stenting of the LAD. The stent is patent on recent heart catheterization Borderline diabetes and hypertension and dyslipidemia Plan: Continue oral Lasix Patient is cleared for discharge and follow-up with Dr. Jain in the officerse practitioner note has been reviewed, I agree with documented findings and plan of care. Patient was seen and examined. Objective - Vital Signs Vital signs: Vital Signs Temp 97.7 F 04/02/22 07:00 Pulse 78 04/02/22 07:29 Resp 16 04/02/22 07:00 BP 111/60 04/02/22 07:00 Pulse Ox 92 L 04/02/22 07:16 FiO2 Intake & Output 04/01/22 04/02/22 04/02/22 18:59 06:59 18:59 Intake Total 118 Balance 118 Intake: Oral 118 Other: Voiding Method Toilet Toilet # Voids 7 2 - Labs CBC & Chem 7: 04/02/22 05:43 04/02/22 05:43 Labs: Abnormal Lab Results - Last 24 Hours (Table) 03/31/22 04/01/22 04/01/22 Range/Units 05:58 03:16 03:16 RBC 3.56 L (4.10-5.20) X 10*6/uL Hgb 10.7 L (12.0-15.0) g/dL Hct 35.7 L (37.2-46.3) % MCV 100.3 H (80.0-97.0) fL MCHC 30.0 L (32.0-37.0) g/dL RDW 14.7 H (11.5-14.5) % Immature Gran # 0.10 H (0.00-0.04) X 10*3/uL Monocytes # 1.17 H (0.20-1.00) X 10*3/uL Eosinophils # 0.03 L (0.04-0.35) X 10*3/uL Chloride 95 L (96-109) mmol/L Carbon Dioxide 33.8 H (20.0-27.5) mmol/L Anion Gap 9.20 L (10.00-18.00) mmol/L Est GFR (CKD-EPI)AfAm 55.3 L (60.0-200.0) Est GFR (CKD-EPI)NonAf 47.7 L (60.0-200.0) Glucose 111 H (70-110) mg/dL Procalcitonin 0.14 H (0.02-0.09) ng/mL Microbiology - Last 24 Hours (Table) 03/30/22 11:41 Blood Culture - Preliminary Blood No Growth after 48 hours 03/30/22 11:24 Blood Culture - Preliminary Blood No Growth after 48 hours 03/31/22 00:03 Gram Stain - Preliminary Sputum Sputum Culture - Preliminary
--- NOTE | 2022-04-02 10:55 | XR ---
EXAMINATION TYPE: XR chest 1V DATE OF EXAM: 04/02/2022 CLINICAL HISTORY: Difficulty breathing progress study. TECHNIQUE: Single AP portable upright view of the chest is obtained. COMPARISON: Chest x-ray from 2 days earlier and older studies FINDINGS: Osseous structures remain demineralized. Stable mild cardiomegaly. Stable small right pleu ral effusion. Some increased interstitial markings bilaterally remain present. No new focal airspace opacity or pneumothorax seen bilaterally. IMPRESSION: No significant change from 2 days earlier. Possible continued CHF exacerbation with mild cardiomegaly and possible mild interstitial edema and perhaps small right pleural effusion or pleural thickening
[2022-04-02 11:19] VITALS: PULSE 74
--- NOTE | 2022-04-02 12:15 | P.PN ---
Subjective Progress Note Date: 04/02/22 Principal diagnosis: Leukocytosis and possible pneumonia Patient is a 81-year-old female with a past medical history significant for hypertension hyperlipidemia congestive heart failure presenting to ER for evaluation of increasing shortness of breath and cough and station symptom has been going on and off for the last few weeks, patient sent to the ER because of hypoxemia noticed to have an elevated white count and concern for possible pneumonia. on today's evaluation that is 04/02/2022, the patient continues to be afebrile, the patient is breathing comfortably on room air , the patient denies chest pain, breathing more comfortably, occasional cough and sputum production no nausea no vomiting no diarrhea Objective - Vital Signs Vital signs: Vital Signs Temp 97.7 F 04/02/22 07:00 Pulse 78 04/02/22 07:29 Resp 16 04/02/22 07:00 BP 111/60 04/02/22 07:00 Pulse Ox 92 L 04/02/22 07:16 FiO2 Intake & Output 04/01/22 04/02/22 04/02/22 18:59 06:59 18:59 Intake Total 118 Balance 118 Intake: Oral 118 Other: Voiding Method Toilet Toilet # Voids 7 2 - Exam GENERAL DESCRIPTION: An elderly female up in the chair RESPIRATORY SYSTEM: Unlabored breathing , decreased breath sounds at bases HEART: S1 S2 regular rate and rhythm , ABDOMEN: Soft , no tenderness EXTREMITIES: No edema feet - Labs CBC & Chem 7: 04/02/22 05:43 04/02/22 05:43 Labs: Abnormal Lab Results - Last 24 Hours (Table) 03/31/22 04/02/22 04/02/22 Range/Units 05:58 05:43 05:43 RBC 3.49 L (4.10-5.20) X 10*6/uL Hgb 10.5 L (12.0-15.0) g/dL Hct 34.4 L (37.2-46.3) % MCV 98.6 H (80.0-97.0) fL MCHC 30.5 L (32.0-37.0) g/dL RDW 14.8 H (11.5-14.5) % Immature Gran # 0.12 H (0.00-0.04) X 10*3/uL Carbon Dioxide 33.0 H (20.0-27.5) mmol/L Anion Gap 8.00 L (10.00-18.00) mmol/L Procalcitonin 0.14 H (0.02-0.09) ng/mL Microbiology - Last 24 Hours (Table) 03/30/22 11:41 Blood Culture - Preliminary Blood No Growth after 48 hours 03/30/22 11:24 Blood Culture - Preliminary Blood No Growth after 48 hours 03/31/22 00:03 Gram Stain - Preliminary Sputum Sputum Culture - Preliminary Assessment and Plan (1) Pneumonia Current Visit: No Status: Acute Code(s): J18.9 - PNEUMONIA, UNSPECIFIED ORGANISM SNOMED Code(s): 351668439 Plan: 1patient presented to hospital with increasing shortness of breath cough bringing up some greenish sputum symptom has been going on for about a week patient did have elevated white count chest x-ray with interstitial infiltrate with concern for possible committed community-acquired pneumonia 2 sputum for gram stain and culture currently pending 3- CRP and pro calcitonin level mildly elevated 4patient seemed to have shown clinical improvement on Rocephin and Zithromax plan to finish short course of oral Ceftin and close outpatient follow-up Time with Patient: Less than 30
[2022-04-02] MEDS ORDERED: NON FORMULARY DRUG (Alendronate Sodium [Fosamax] 70 MG Tablet) PO SCH (17:48)
--- NOTE | 2022-04-02 19:18 | P.DS ---
Providers Date of admission: 03/30/22 13:47 Attending physician: Marc Pimentel MD Consults: 03/30/22 13:47 Consult Physician Routine Consulting Provider: Patricia Patrick Consult Reason/Comments: dyspnea Do you want consulting provider notified?: Yes 03/30/22 13:51 Consult Physician Routine Consulting Provider: Melvin Oviedo Consult Reason/Comments: dyspnea, eval for chf Do you want consulting provider notified?: Yes Primary care physician: Paul Bonilla Hospital Course: Diagnoses: 1. Community-acquired pneumonia/sepsis improved 2. Acute exacerbation CHF; improved 3. Transaminitis; AST/ALT is elevated . Significantly improved 4. Mild LETICIA; improved 5. Hypertension; 6. Hyperlipidemia; 7. Hypothyroidism; 8. Asthma/COPD; 9. History of CAD; Hospital course: This is a pleasant 81-year-old female with history of CHF, hypertension, hyperlipidemia, hypothyroidism, presenting to the emergency Department with cough and dyspnea. Onset of symptoms was the past week. Patient has not felt well over the past 2 weeks. Patient was found to have community acquired pneumonia, acute CHF exacerbation, she was been treated with ceftriaxone and Zithromax and diuretics, reverser and infectious disease evaluated the patient. Patient showed interval improvement. Today she was sitting up in bed, already dressed up and ready for discharge as she stated to me when i walked into her room this morning. Labs came back normal and stable, discussed the case with infectious disease team who cleared her for discharge with short course of oral Ceftin. Patient does not qualify for home oxygen, checked with the bed side nurse Marv. Patient denies any other new symptoms. Problems and management plan were discussed with the patient and he verbalized understanding and acceptance Patient was found stable and can be discharged home in guarded prognosis however he needs follow-up as an outpatient. Patient was instructed to follow up with PCP Dr. Bonilla within one week and patient agrees Patient was instructed to follow up with her reverser Dr. Jain in [address] Sherman is Dr. Crowe and she confirmed to me she has appointment with them on 04/26 that she is to follow up with Physical exam Gen: patient is a AAOx3, no distress CVS: S1-S2, RRR, no murmur Lungs: B/L CTA, no wheezing Abdomen: soft, no distention, no tenderness, positive bowel sounds Extremity: no leg edema or induration Time spent more than 35 minutes Patient Condition at Discharge: Good Plan - Discharge Summary Discharge Rx Participant: No New Discharge Prescriptions: New Furosemide [Lasix] 40 mg PO BID@0900,1600 #60 tab cefUROXime axetiL [Cefuroxime] 500 mg PO BID 7 Days #14 tab Continue Omeprazole 20 mg PO DAILY Multivit-Min/FA/Lycopen/Lutein [Centrum Silver Tablet] 1 tab PO DAILY Budesonide-Formot 160-4.5 Mcg [Symbicort 160-4.5 Mcg Inhaler] 2 puff INHALATION RT-BID #1 inhaler Ipratropium-Albuterol Nebulize [Duoneb 0.5 mg-3 mg/3 ml Soln] 3 ml INHALATION RT-BID PRN PRN Reason: Shortness Of Breath Aspirin 81 mg PO DAILY #30 tab Nitroglycerin Sl Tabs [Nitrostat] 0.4 mg SUBLINGUAL Q5M PRN #14 tab PRN Reason: Chest Pain Clopidogrel [Plavix] 75 mg PO DAILY #30 tab modafiniL [Provigil] 100 mg PO DAILY PRN PRN Reason: Motion Sickness Isosorbide Mononitrate ER [Imdur] 30 mg PO DAILY 30 Days #30 tab Fluticasone Propionate 2 spray EA NOSTRIL DAILY Levothyroxine Sodium [Synthroid] 56 mcg PO SUSA Empagliflozin [Jardiance] 10 mg PO DAILY Metoprolol Succinate (ER) [Toprol XL] 100 mg PO DAILY Acetaminophen [Tylenol Arthritis] 650 mg PO Q8HR PRN PRN Reason: Pain Magnesium Oxide [Darden] 500 mg PO DAILY Levothyroxine Sodium [Synthroid] 112 mcg PO MOTUWETHFR Cholecalciferol [Vitamin D3 (25 Mcg = 1000 Iu)] 50 mcg PO DAILY Montelukast [Singulair] 10 mg PO DAILY Alendronate Sodium [Fosamax] 70 mg PO MO Atorvastatin [Lipitor] 80 mg PO HS #30 tab ALPRAZolam [Xanax] 0.25 mg PO Q8HR PRN PRN Reason: Anxiety Verapamil HCl [Verapamil ER] 120 mg PO DAILY Albuterol Inhaler [Ventolin Hfa Inhaler] 2 puff INHALATION RT-QID PRN #1 each PRN Reason: Shortness Of Breath Discontinued Furosemide [Lasix] 40 mg PO DAILY Discharge Medication List Multivit-Min/FA/Lycopen/Lutein [Centrum Silver Tablet] 1 tab PO DAILY 03/29/16 [History] Omeprazole 20 mg PO DAILY 03/29/16 [History] Budesonide-Formot 160-4.5 Mcg [Symbicort 160-4.5 Mcg Inhaler] 2 puff INHALATION RT-BID #1 inhaler 04/06/16 [Rx] Alendronate Sodium [Fosamax] 70 mg PO MO 08/09/21 [History] Cholecalciferol [Vitamin D3 (25 Mcg = 1000 Iu)] 50 mcg PO DAILY 08/09/21 [History] Ipratropium-Albuterol Nebulize [Duoneb 0.5 mg-3 mg/3 ml Soln] 3 ml INHALATION RT-BID PRN 08/09/21 [History] Levothyroxine Sodium [Synthroid] 112 mcg PO MOTUWETHFR 08/09/21 [History] Magnesium Oxide [Darden] 500 mg PO DAILY 08/09/21 [History] Montelukast [Singulair] 10 mg PO DAILY 08/09/21 [History] Aspirin 81 mg PO DAILY #30 tab 08/11/21 [Rx] Atorvastatin [Lipitor] 80 mg PO HS #30 tab 08/11/21 [Rx] Clopidogrel [Plavix] 75 mg PO DAILY #30 tab 08/11/21 [Rx] Nitroglycerin Sl Tabs [Nitrostat] 0.4 mg SUBLINGUAL Q5M PRN #14 tab 08/11/21 [Rx] ALPRAZolam [Xanax] 0.25 mg PO Q8HR PRN 10/06/21 [History] modafiniL [Provigil] 100 mg PO DAILY PRN 10/06/21 [History] Isosorbide Mononitrate ER [Imdur] 30 mg PO DAILY 30 Days #30 tab 10/09/21 [Rx] Acetaminophen [Tylenol Arthritis] 650 mg PO Q8HR PRN 03/19/22 [History] Empagliflozin [Jardiance] 10 mg PO DAILY 03/19/22 [History] Fluticasone Propionate 2 spray EA NOSTRIL DAILY 03/19/22 [History] Levothyroxine Sodium [Synthroid] 56 mcg PO SUSA 03/19/22 [History] Metoprolol Succinate (ER) [Toprol XL] 100 mg PO DAILY 03/19/22 [History] Verapamil HCl [Verapamil ER] 120 mg PO DAILY 03/19/22 [History] Albuterol Inhaler [Ventolin Hfa Inhaler] 2 puff INHALATION RT-QID PRN #1 each 04/02/22 [Rx] Furosemide [Lasix] 40 mg PO BID@0900,1600 #60 tab 04/02/22 [Rx] cefUROXime axetiL [Cefuroxime] 500 mg PO BID 7 Days #14 tab 04/02/22 [Rx] Follow up Appointment(s)/Referral(s): Kaleb Jain DO [STAFF PHYSICIAN] - 04/11/22 3:00 pm Abbe Freed DO [Doctor of Osteopathic Medicine] - 04/26/22 Paul Bonilla DO [Primary Care Provider] - 1-2 days Patient Instructions/Handouts: Heart Failure (DC), Pneumonia (DC) Activity/Diet/Wound Care/Special Instructions: Heart healthy diet activity is restricted till you see your doctor Discharge Disposition: HOME SELF-CARE
== END 2022-04-02 12:47 | disposition home or self-care (01) ==
LOC: EC 10:54 → 6NMEDSUR 13:47
PROVIDERS: ADMIT Internal Medicine; ATTEND Internal Medicine
DX: R06.02 Shortness of breath (principal); A41.9 Sepsis, unspecified organism; J18.9 Pneumonia, unspecified organism; I50.9 Heart failure, unspecified; R74.01 Elevation of levels of liver transaminase levels; R94.5 Abnormal results of liver function studies; I10 Essential (primary) hypertension; E03.9 Hypothyroidism, unspecified; I25.2 Old myocardial infarction; Z20.822 Contact with and (suspected) exposure to COVID-19; J45.909 Unspecified asthma, uncomplicated; I25.10 Atherosclerotic heart disease of native coronary artery without angina pectoris; Z95.5 Presence of coronary angioplasty implant and graft; N17.9 Acute kidney failure, unspecified; R73.03 Prediabetes; E78.5 Hyperlipidemia, unspecified; I34.1 Nonrheumatic mitral (valve) prolapse; M06.9 Rheumatoid arthritis, unspecified; E07.9 Disorder of thyroid, unspecified; Z79.51 Long term (current) use of inhaled steroids; Z79.82 Long term (current) use of aspirin; Z79.02 Long term (current) use of antithrombotics/antiplatelets; Z79.890 Hormone replacement therapy; Z79.899 Other long term (current) drug therapy; Z88.1 Allergy status to other antibiotic agents; Z88.0 Allergy status to penicillin; Z88.8 Allergy status to other drugs, medicaments and biological substances
CPT/HCPCS: 96376 ×2; 96366 ×4; 96375; 96365; 99285; 36415; 94640 ×8; 94760 ×3; 93005; 85379; 83880; 80053; 80048 ×3; 80076; 83605; 83735; 84484; 85025 ×4; 85610; 85730; 86140; 87040; 87070; 87205; 84145; 87636; 71045; 71046 ×2; G0378 ×4; J1940 ×3; J0696 ×3; J1956

== ENCOUNTER → 2022-06-15 | Outpatient (CLI) | payer MEDICARE, BC ==
[2022-06-16 04:08] LABS: T4, Free (Free Thyroxine) 1.82 ng/dL (0.800-1.800)
== END | disposition home or self-care (01) ==
LOC: LABWHC1 15:26
PROVIDERS: ATTEND Family Medicine
DX: E03.8 Other specified hypothyroidism (principal)
CPT/HCPCS: 36415; 84439; 84443

== ENCOUNTER → 2022-08-13 | Outpatient (CLI) | payer MEDICARE, BC ==
[2022-08-13 16:01] LABS: Chol/HDL Ratio 5.29 Ratio; LDL Cholesterol,Calculated 167.2 mg/dL
[2022-08-13 16:02] LABS: ALT 27 U/L; AST 27 U/L
== END | disposition home or self-care (01) ==
LOC: LABWHC1 09:31
PROVIDERS: ATTEND Nurse Practitioner Acute Care
DX: E78.2 Mixed hyperlipidemia (principal)
CPT/HCPCS: 36415; 80061; 84450; 84460

== ENCOUNTER 2023-03-17 13:07 | Emergency (ER) | payer MEDICARE, BC ==
[2023-03-17] MEDS ORDERED: LIDOCAINE 1%-EPI 1:100,000 20 ML VIAL SQ STA (13:25)
[2023-03-17] MEDS ORDERED: DIPH,PERTUS(ACELL)TETVAC-LF 0.5 ML VIAL IM ONE (13:26)
--- NOTE | 2023-03-17 13:50 | ED ---
General Adult HPI - General Chief complaint: Fall Stated complaint: Fall/head injury Time Seen by Provider: 03/17/23 13:16 Source: patient Mode of arrival: ambulatory Limitations: no limitations - History of Present Illness Initial comments: Dictation was produced using [employer] dictation software. please excuse any grammatical, word or spelling errors. Chief Complaint: 82-year-old female presents after fall History of Present Illness: Patient is an 82-year-old female presents emergency department after fall. Fall occurred approximately 20 minutes prior to arrival. She states that she was walking she was in pain intention holding onto a dog leash when she tripped and fell forward. She hit her head. No loss of consciousness. No headache. No take any blood thinners. Patient otherwise relatively healthy. The ROS documented in this emergency department record has been reviewed and confirmed by me. Those systems with pertinent positive or negative responses have been documented in the HPI. All other systems are other negative and/or noncontributory. - Related Data Home Medications Medication Instructions Recorded Confirmed Multivit-Min/FA/Lycopen/Lutein 1 tab PO DAILY 03/29/16 03/30/22 [Centrum Silver Tablet] Omeprazole 20 mg PO DAILY 03/29/16 03/30/22 Alendronate Sodium [Fosamax] 70 mg PO MO 08/09/21 03/30/22 Cholecalciferol [Vitamin D3 (25 50 mcg PO DAILY 08/09/21 03/30/22 Mcg = 1000 Iu)] Ipratropium-Albuterol Nebulize 3 ml INHALATION RT-BID PRN 08/09/21 03/30/22 [Duoneb 0.5 mg-3 mg/3 ml Soln] Levothyroxine Sodium [Synthroid] 112 mcg PO MOTUWETHFR 08/09/21 03/30/22 Magnesium Oxide [Darden] 500 mg PO DAILY 08/09/21 03/30/22 Montelukast [Singulair] 10 mg PO DAILY 08/09/21 03/30/22 ALPRAZolam [Xanax] 0.25 mg PO Q8HR PRN 10/06/21 03/30/22 modafiniL [Provigil] 100 mg PO DAILY PRN 10/06/21 03/30/22 Acetaminophen [Tylenol Arthritis] 650 mg PO Q8HR PRN 03/19/22 03/30/22 Empagliflozin [Jardiance] 10 mg PO DAILY 03/19/22 03/30/22 Fluticasone Propionate 2 spray EA NOSTRIL DAILY 03/19/22 03/30/22 Levothyroxine Sodium [Synthroid] 56 mcg PO SUSA 03/19/22 03/30/22 Metoprolol Succinate (ER) [Toprol 100 mg PO DAILY 03/19/22 03/30/22 XL] Verapamil HCl [Verapamil ER] 120 mg PO DAILY 03/19/22 03/30/22 Previous Rx's Medication Instructions Recorded Budesonide-Formot 160-4.5 Mcg 2 puff INHALATION RT-BID #1 inhaler 04/06/16 [Symbicort 160-4.5 Mcg Inhaler] Aspirin 81 mg PO DAILY #30 tab 08/11/21 Atorvastatin [Lipitor] 80 mg PO HS #30 tab 08/11/21 Clopidogrel [Plavix] 75 mg PO DAILY #30 tab 08/11/21 Nitroglycerin Sl Tabs [Nitrostat] 0.4 mg SUBLINGUAL Q5M PRN #14 tab 08/11/21 Isosorbide Mononitrate ER [Imdur] 30 mg PO DAILY 30 Days #30 tab 10/09/21 Albuterol Inhaler [Ventolin Hfa 2 puff INHALATION RT-QID PRN #1 04/02/22 Inhaler] each Furosemide [Lasix] 40 mg PO BID@0900,1600 #60 tab 04/02/22 cefUROXime axetiL [Cefuroxime] 500 mg PO BID 7 Days #14 tab 04/02/22 Allergies Allergy/AdvReac Type Severity Reaction Status Date / Time clarithromycin [From Biaxin] Allergy Unknown Verified 03/17/23 13:14 gemifloxacin [From Factive] Allergy Unknown Verified 03/17/23 13:14 prednisone Allergy Unknown Verified 03/17/23 13:14 amoxicillin [From Augmentin] AdvReac Nausea & Verified 03/17/23 13:14 Vomiting & Diarrhea clavulanic acid AdvReac Nausea & Verified 03/17/23 13:14 [From Augmentin] Vomiting & Diarrhea Review of Systems ROS Statement: Those systems with pertinent positive or pertinent negative responses have been documented in the HPI. ROS Other: All systems not noted in ROS Statement are negative. Past Medical History Past Medical History: Heart Failure, Hyperlipidemia, Hypertension, Mitral Valve Prolapse (MVP), Rheumatoid Arthritis (RA), Thyroid Disorder Additional Past Medical History / Comment(s): HAD A PNE VACCINE AFTER AGE 67 BUT NOT SURE OF DATE,OFFICE CLOSED AT TIME OF THIS ADMIT. Last Myocardial Infarction Date:: History of Any Multi-Drug Resistant Organisms: None Reported Past Surgical History: Section, Orthopedic Surgery Additional Past Surgical History / Comment(s): total right knee replacement Past Anesthesia/Blood Transfusion Reactions: No Reported Reaction Additional Past Anesthesia/Blood Transfusion Reaction / Comment(s): clausterphobia Past Psychological History: No Psychological Hx Reported Smoking Status: Never smoker Past Alcohol Use History: Occasional Past Drug Use History: None Reported - Past Family History Father Additional Family Medical History / Comment(s): smoker-had problems related to that Mother Additional Family Medical History / Comment(s): smoker-problems related to that General Exam - General Exam Comments Initial Comments: PHYSICAL EXAM: General Impression: Alert and oriented x3, not in acute distress HEENT: Abrasion to the left forehead and left cheek, extra-ocular movements intact, pupils equal and reactive to light bilaterally, mucous membranes moist. Cardiovascular: Heart regular rate and rhythm Chest: Able to complete full sentences, no retractions, no tachypnea Abdomen: abdomen soft, non-tender, non-distended, no organomegaly Musculoskeletal: Pulses present and equal in all extremities, no peripheral edema Motor: no focal deficits noted Neurological: CN II-XII grossly intact, no focal motor or sensory deficits noted Skin: Intact with no visualized rashes Psych: Normal affect and mood Limitations: no limitations Course Vital Signs 03/17/23 13:12 Temperature 98 F Pulse Rate 79 Respiratory 20 Rate Blood Pressure 141/64 O2 Sat by Pulse 99 Oximetry Procedures - Laceration Laceration #1 Consent Obtained: verbal consent Indication: laceration Site: face Description: linear Size of Sutures: 6-0 Technique: simple, interrupted Patient Tolerated Procedure: well Medical Decision Making - Medical Decision Making Was pt. sent in by a medical professional or institution (, PA, ENVELOPE MACHINE ADJUSTER, urgent care, hospital, or correction...) When possible be specific @ -No Did you speak to anyone other than the patient for history (EMS, parent, family, police, friend...)? What history was obtained from this source @ -No Did you review nursing and triage notes (agree or disagree)? Why? @ -I reviewed and agree with nursing and triage notes Were old charts reviewed (outside hosp., previous admission, EMS record, old EKG, old radiological studies, urgent care reports/EKG's, correction records)? Report findings @ -No old charts were reviewed Differential Diagnosis (chest pain, altered mental status, abdominal pain women, abdominal pain men, vaginal bleeding, musculoskeletal, weakness, fever, dyspnea, syncope, headache, dizziness, GI bleed, back pain, seizure, CVA, palpatations, mental health)? @ -not applicable EKG interpreted by me (3pts min.). @ -None done X-rays interpreted by me (1pt min.). @ -None done CT interpreted by me (1pt min.). @ -Computed tomography scan of brain and C-spine shows no acute process U/S interpreted by me (1pt. min.). @ -None done What testing was considered but not performed or refused? (CT, X-rays, U/S, labs)? Why? @ -None What meds were considered but not given or refused? Why? @ -None Did you discuss the management of the patient with other professionals (professionals i.e. , PA, ENVELOPE MACHINE ADJUSTER, lab, RT, psych nurse, social media marketing analyst, breading machine tender, teacher, medical officer, shoe parts caser)? Give summary @ -No Was smoking cessation discussed for >3mins.? @ -No Was critical care preformed (if so, how long)? @ -No Were there social determinants of health that impacted care today? How? (Homelessness, low income, unemployed, alcoholism, drug addiction, transportation, low edu. Level, literacy, decrease access to med. care, longterm, rehab)? @ -No Was there de-escalation of care discussed even if they declined (Discuss DNR or withdrawal of care, Hospice)? DNR status @ -No What co-morbidities impacted this encounter? (DM, HTN, Smoking, COPD, CAD, Cancer, CVA, ARF, Chemo, Hep., AIDS, mental health diagnosis, sleep apnea, morbid obesity)? @ -None Was patient admitted / discharged? Hospital course, mention meds given and route, prescriptions, significant lab abnormalities, going to OR and other pertinent info. @ -82-year-old female presents to the emergency department after head injury secondary to trip and fall. Vital signs upon arrival are stable. Patient does not taken and correlation medications. Computed tomography scan unremarkable. Lacerations were repaired at the bedside using nonabsorbable sutures. See procedure note for further detail. Patient instructed to have sutures removed in 3-5 days Undiagnosed new problem with uncertain prognosis? @ -No Drug Therapy requiring intensive monitoring for toxicity (Heparin, Nitro, Insulin, Cardizem)? @ -No Were any procedures done? @ -No Diagnosis/symptom? Acute, or Chronic, or Acute on Chronic? Uncomplicated (without systemic symptoms) or Complicated (systemic symptoms)? @ -Closed head injury, facial lacerations Side effects of treatment? @ -No Exacerbation, Progression, or Severe Exacerbation? @ -No Poses a threat to life or bodily function? How? (Chest pain, [place], [place], pneumonia, PE, COPD, DKA, ARF, appy, cholecystitis, CVA, Diverticulitis, Homicidal, Suicidal, threat to staff... and all critical care pts) @ -No Disposition Clinical Impression: Laceration Disposition: HOME SELF-CARE Condition: Good Instructions (If sedation given, give patient instructions): Fall Prevention for Older Adults (ED) Additional Instructions: suture removal in 5 days Is patient prescribed a controlled substance at d/c from ED?: No Referrals: Paul Bonilla DO [Primary Care Provider] - 1-2 days Time of Disposition: 14:39
--- NOTE | 2023-03-17 14:28 | CT ---
EXAMINATION TYPE: CT brain franklyn wo con DATE OF EXAM: 03/17/2023 COMPARISON: None HISTORY: 82-year-old female Pain after Fall CT DLP: 1204.4 mGycm Automated exposure control for dose reduction was used. Technique: Examination of the head was done in axial plane without intravenous contrast. Coronal and sagittal reconstructions performed. CT of the cervical spine was obtained in axial plane without intravenous injection of contrast mater ial. Coronal and sagittal reformatted images were obtained from the axial views for evaluation of f ractures, spinal alignment and canal. FINDINGS: Head: There is no evidence of acute intracranial hemorrhage, acute ischemic changes, mass, mass-effect, or extra-axial fluid collection. There is no effacement of cerebral sulci or basal subarachnoid cister ns. There is no hydrocephalus. There is no midline shift. Hall-white matter distinction is preserv ed. Benign basal ganglionic calcifications on the right. Paranasal sinuses and mastoid air cells well pneumatized. Leftward nasal septal deviation. Cervical spine: No greatest cervical junction anomaly, predental space widening, or prevertebral soft tissue swelling . Moderate to advanced spondylitic change mid to lower cervical spine. Degenerative grade 1 retrolisthesis C3-C4, C4-C5, C5-C6. 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 Additional disc osteophyte complexes. This may contribute to severe spinal canal stenosis at C5-C6, m oderate to severe at T6-T7, and moderate at C4-C5. Mild additional levels which could be further eval uated with MRI if indicated. No acute fracture seen of the cervical spine. Variable moderate neuroforaminal stenoses throughout, more moderate to severe on the right at C5-C6. Sagittal and coronal reformatted images confirm above findings. COMBINED IMPRESSION: 1. No acute intracranial abnormality seen. 2. No acute fracture of the cervical spine. Moderately advanced spondylotic change with degenerative grade 1 retrolisthesis C3-C6 levels. 3. Disc osteophyte complexes may contribute to severe spinal canal stenosis at C5-C6 and moderate to severe at C6-C7. Consider outpatient MRI to further evaluate if clinically indicated.
[2023-03-17 15:16] VITALS: BP 129/71; PULSE 74; RESP 18; TEMP 98.1
== END 2023-03-17 15:36 | disposition home or self-care (01) ==
LOC: EC 13:07
DX: S01.412A Laceration without foreign body of left cheek and temporomandibular area, initial encounter (principal); I11.0 Hypertensive heart disease with heart failure; I50.9 Heart failure, unspecified; I25.2 Old myocardial infarction; E07.9 Disorder of thyroid, unspecified; Z23 Encounter for immunization; Z79.890 Hormone replacement therapy; Z88.8 Allergy status to other drugs, medicaments and biological substances; Z88.0 Allergy status to penicillin; Z88.1 Allergy status to other antibiotic agents; W01.10XA Fall on same level from slipping, tripping and stumbling with subsequent striking against unspecified object, initial encounter
CPT/HCPCS: 12011; 70450; 72125; 90471; 90715; 99284

== ENCOUNTER 2023-03-25 13:17 | Emergency (ER) | payer MEDICARE, BC ==
[2023-03-25] MEDS ORDERED: ACETAMINOPHEN TAB 325 MG TAB PO STA (14:14)
--- NOTE | 2023-03-25 15:19 | CT ---
EXAMINATION TYPE: CT brain wo con CT DLP: 1132.4 mGycm, Automated exposure control for dose reduction was used. DATE OF EXAM: 03/25/2023 3:13 PM COMPARISON: 03/17/2023. CLINICAL INDICATION:Female, 82 years old with history of head injury, pt tripped over a wood sign tod ay and hit left side of forehead TECHNIQUE: Brain: Axial CT images of the brain were obtained with coronal and sagittal reformats created and rev iewed. Contrast used: None. Oral contrast used: None. FINDINGS: Brain: Extra-axial spaces: No abnormal extra-axial fluid collections. Ventricular system: Within normal limits Cerebral parenchyma: No acute intraparenchymal hemorrhage or mass effect. The rodríguez-white junction is well differentiated. Cerebellum: Unremarkable. Mass effect: No evidence of midline shift. Intracranial vasculature: unremarkable Soft tissues: Left clavicle subcutaneous hematoma with foci of gas. Measuring 22 by millimeters. Calvarium/osseous structures: No depressed skull fracture. Paranasal sinuses and mastoid air cells: Mild scattered paranasal sinus disease. Visualized orbits: Orbital contents are intact. IMPRESSION: 1. No acute intracranial process. 2. Left frontal scalp hematoma/laceration without evidence of fracture.
--- NOTE | 2023-03-25 16:04 | ED ---
Fall HPI - General Chief Complaint: Fall Stated Complaint: fell facial injury Time Seen by Provider: 03/25/23 14:07 Source: patient, RN notes reviewed Mode of arrival: wheelchair - History of Present Illness Initial Comments: Patient an 82-year-old female presented ER with chief complaint of a fall. Patient states she was trying to walk around her car and tripped over a wood b eam. Patient states she did hit her head but denies any loss of consciousness. She does take a baby aspirin daily. Patient denies any neck pain. Patient denies any other injuries. - Related Data Home Medications Medication Instructions Recorded Confirmed Multivit-Min/FA/Lycopen/Lutein 1 tab PO DAILY 03/29/16 03/30/22 [Centrum Silver Tablet] Omeprazole 20 mg PO DAILY 03/29/16 03/30/22 Alendronate Sodium [Fosamax] 70 mg PO MO 08/09/21 03/30/22 Cholecalciferol [Vitamin D3 (25 50 mcg PO DAILY 08/09/21 03/30/22 Mcg = 1000 Iu)] Ipratropium-Albuterol Nebulize 3 ml INHALATION RT-BID PRN 08/09/21 03/30/22 [Duoneb 0.5 mg-3 mg/3 ml Soln] Levothyroxine Sodium [Synthroid] 112 mcg PO MOTUWETHFR 08/09/21 03/30/22 Magnesium Oxide [Darden] 500 mg PO DAILY 08/09/21 03/30/22 Montelukast [Singulair] 10 mg PO DAILY 08/09/21 03/30/22 ALPRAZolam [Xanax] 0.25 mg PO Q8HR PRN 10/06/21 03/30/22 modafiniL [Provigil] 100 mg PO DAILY PRN 10/06/21 03/30/22 Acetaminophen [Tylenol Arthritis] 650 mg PO Q8HR PRN 03/19/22 03/30/22 Empagliflozin [Jardiance] 10 mg PO DAILY 03/19/22 03/30/22 Fluticasone Propionate 2 spray EA NOSTRIL DAILY 03/19/22 03/30/22 Levothyroxine Sodium [Synthroid] 56 mcg PO SUSA 03/19/22 03/30/22 Metoprolol Succinate (ER) [Toprol 100 mg PO DAILY 03/19/22 03/30/22 XL] Verapamil HCl [Verapamil ER] 120 mg PO DAILY 03/19/22 03/30/22 Previous Rx's Medication Instructions Recorded Budesonide-Formot 160-4.5 Mcg 2 puff INHALATION RT-BID #1 inhaler 04/06/16 [Symbicort 160-4.5 Mcg Inhaler] Aspirin 81 mg PO DAILY #30 tab 08/11/21 Atorvastatin [Lipitor] 80 mg PO HS #30 tab 08/11/21 Clopidogrel [Plavix] 75 mg PO DAILY #30 tab 08/11/21 Nitroglycerin Sl Tabs [Nitrostat] 0.4 mg SUBLINGUAL Q5M PRN #14 tab 08/11/21 Isosorbide Mononitrate ER [Imdur] 30 mg PO DAILY 30 Days #30 tab 10/09/21 Albuterol Inhaler [Ventolin Hfa 2 puff INHALATION RT-QID PRN #1 04/02/22 Inhaler] each Furosemide [Lasix] 40 mg PO BID@0900,1600 #60 tab 04/02/22 cefUROXime axetiL [Cefuroxime] 500 mg PO BID 7 Days #14 tab 04/02/22 Allergies Allergy/AdvReac Type Severity Reaction Status Date / Time clarithromycin [From Biaxin] Allergy Unknown Verified 03/25/23 13:55 gemifloxacin [From Factive] Allergy Unknown Verified 03/25/23 13:55 prednisone Allergy Unknown Verified 03/25/23 13:55 amoxicillin [From Augmentin] AdvReac Nausea & Verified 03/25/23 13:55 Vomiting & Diarrhea clavulanic acid AdvReac Nausea & Verified 03/25/23 13:55 [From Augmentin] Vomiting & Diarrhea Review of Systems ROS Statement: Those systems with pertinent positive or pertinent negative responses have been documented in the HPI. ROS Other: All systems not noted in ROS Statement are negative. Past Medical History Past Medical History: Heart Failure, Hyperlipidemia, Hypertension, Mitral Valve Prolapse (MVP), Rheumatoid Arthritis (RA), Thyroid Disorder Additional Past Medical History / Comment(s): HAD A PNE VACCINE AFTER AGE 67 BUT NOT SURE OF DATE,OFFICE CLOSED AT TIME OF THIS ADMIT. Last Myocardial Infarction Date:: History of Any Multi-Drug Resistant Organisms: None Reported Past Surgical History: Section, Orthopedic Surgery Additional Past Surgical History / Comment(s): total right knee replacement Past Anesthesia/Blood Transfusion Reactions: No Reported Reaction Additional Past Anesthesia/Blood Transfusion Reaction / Comment(s): clausterphobia Past Psychological History: No Psychological Hx Reported Smoking Status: Never smoker Past Alcohol Use History: Occasional Past Drug Use History: None Reported - Past Family History Father Additional Family Medical History / Comment(s): smoker-had problems related to that Mother Additional Family Medical History / Comment(s): smoker-problems related to that General Exam Limitations: no limitations General appearance: alert, in no apparent distress Head exam: Present: atraumatic, normocephalic, other (Abrasion and hematoma noted to left forehead) Eye exam: Present: normal appearance, PERRL, EOMI. Absent: scleral icterus, conjunctival injection, periorbital swelling Pupils: Present: normal accommodation ENT exam: Present: normal exam, normal oropharynx, mucous membranes moist Neck exam: Present: normal inspection. Absent: tenderness, meningismus, lymphadenopathy Respiratory exam: Present: normal lung sounds bilaterally. Absent: respiratory distress, wheezes, rales, rhonchi, stridor Cardiovascular Exam: Present: regular rate, normal rhythm, normal heart sounds. Absent: systolic murmur, diastolic murmur, rubs, gallop, clicks Neurological exam: Present: alert, oriented X3, CN II-XII intact Psychiatric exam: Present: normal affect, normal mood Skin exam: Present: warm, dry, intact, normal color. Absent: rash Course Vital Signs 03/25/23 13:53 Temperature 98 F Pulse Rate 85 Respiratory 16 Rate Blood Pressure 132/63 O2 Sat by Pulse 96 Oximetry Medical Decision Making - Medical Decision Making Was pt. sent in by a medical professional or institution (, PA, SHOT CORE DRILL OPERATOR, urgent care, hospital, or care home...) When possible be specific @ -No Did you speak to anyone other than the patient for history (EMS, parent, family, police, friend...)? What history was obtained from this source @ -No Did you review nursing and triage notes (agree or disagree)? Why? @ -I reviewed and agree with nursing and triage notes Were old charts reviewed (outside hosp., previous admission, EMS record, old EKG, old radiological studies, urgent care reports/EKG's, care home records)? Report findings @ -No old charts were reviewed Differential Diagnosis (chest pain, altered mental status, abdominal pain women, abdominal pain men, vaginal bleeding, weakness, fever, dyspnea, syncope, headache, dizziness, GI bleed, back pain, seizure, CVA, palpatations, mental health, musculoskeletal)? @ -[Differential Headache: Migraine, tension, cluster, carbon monoxide, central venous thrombosis, pension karma temporal arteritis, acute closure glaucoma, intercranial hemorrhage, mastoiditis, sinusitis, head injury, this is not meant to be an all-inclusive list. EKG interpreted by me (3pts min.). @ -None X-rays interpreted by me (1pt min.). @ -None done CT interpreted by me (1pt min.). @ -CT brain in by me shows no acute intracranial process. There is a scalp hematoma present on left forehead. U/S interpreted by me (1pt. min.). @ -None done What testing was considered but not performed or refused? (CT, X-rays, U/S, labs)? Why? @ -None What meds were considered but not given or refused? Why? @ -None Did you discuss the management of the patient with other professionals (professionals i.e. , PA, SHOT CORE DRILL OPERATOR, lab, RT, psych nurse, social science professor, business solutions architect, teacher, disabilities services officer, clinical case manager)? Give summary @ -No Was smoking cessation discussed for >3mins.? @ -No Was critical care preformed (if so, how long)? @ -No Were there social determinants of health that impacted care today? How? (Homelessness, low income, unemployed, alcoholism, drug addiction, transportation, low edu. Level, literacy, decrease access to med. care, fpc, rehab)? @ -No Was there de-escalation of care discussed even if they declined (Discuss DNR or withdrawal of care, Hospice)? DNR status @ -No What co-morbidities impacted this encounter? (DM, HTN, Smoking, COPD, CAD, Cancer, CVA, ARF, Chemo, Hep., AIDS, mental health diagnosis, sleep apnea, morbid obesity)? @ -None Was patient admitted / discharged? Hospital course, mention meds given and route, prescriptions, significant lab abnormalities, going to OR and other pertinent info. @ -Discharge. Patient is an 82-year-old female presented ER with chief complaint of a fall and head injury. Vitals stable. History and physical exam were completed. No acute neurological findings. There was a small abrasion noted to left forehead. Minimal active bleeding. Patient's tetanus is up-to-date. CT brain tumor by me shows no acute intracranial process. There is a scalp hematoma present. I discussed imaging findings with patient. Return parameters were discussed. Patient be discharged stable condition with follow- up to PCP. Patient expressed understanding and agreement with care plan. Undiagnosed new problem with uncertain prognosis? @ -No Drug Therapy requiring intensive monitoring for toxicity (Heparin, Nitro, Insulin, Cardizem)? @ -No Were any procedures done? @ -No Diagnosis/symptom? @ -Scalp hematoma Acute, or Chronic, or Acute on Chronic? @ -Acute Uncomplicated (without systemic symptoms) or Complicated (systemic symptoms)? @ -Uncomplicated Side effects of treatment? @ -No Exacerbation, Progression, or Severe Exacerbation? @ -No Poses a threat to life or bodily function? How? (Chest pain, [place], [place], pneumonia, PE, COPD, DKA, ARF, appy, cholecystitis, CVA, Diverticulitis, Homicidal, Suicidal, threat to staff... and all critical care pts) @ -No - Radiology Data Radiology results: report reviewed, image reviewed Disposition Clinical Impression: Fall, Scalp hematoma Disposition: HOME SELF-CARE Condition: Stable Instructions (If sedation given, give patient instructions): Fall Prevention (ED) Additional Instructions: Please return to ER for any new or worsening symptoms. Is patient prescribed a controlled substance at d/c from ED?: No Referrals: Paul Bonilla DO [Primary Care Provider] - 1-2 days Time of Disposition: 16:03
[2023-03-25 16:48] VITALS: BP 127/68; PULSE 80; RESP 18; TEMP 97.6
== END 2023-03-25 16:35 | disposition home or self-care (01) ==
LOC: EC 13:17
DX: S01.01XA Laceration without foreign body of scalp, initial encounter (principal); I11.0 Hypertensive heart disease with heart failure; I25.2 Old myocardial infarction; E78.5 Hyperlipidemia, unspecified; I50.9 Heart failure, unspecified; E07.9 Disorder of thyroid, unspecified; Z79.02 Long term (current) use of antithrombotics/antiplatelets; Z79.82 Long term (current) use of aspirin; Z79.84 Long term (current) use of oral hypoglycemic drugs; Z79.899 Other long term (current) drug therapy; Z79.890 Hormone replacement therapy; Z88.0 Allergy status to penicillin; Z88.1 Allergy status to other antibiotic agents; Z88.8 Allergy status to other drugs, medicaments and biological substances; W18.30XA Fall on same level, unspecified, initial encounter; Y93.01 Activity, walking, marching and hiking
CPT/HCPCS: 70450; 99284

== ENCOUNTER → 2023-04-18 | Outpatient (CLI) | payer MEDICARE, BC ==
--- NOTE | 2023-04-19 10:35 | MM ---
Reason for Exam: Screening (asymptomatic). Last mammogram was performed 1 year(s) and 1 month(s) ago. Patient History: Menarche at age 20. First Full-Term at age 27. Postmenopausal. Risk Values: Nicci 5 year model risk: 1.7%. NCI Lifetime model risk: 2.6%. Prior Study Comparison: 02/22/2016 Screening Mammogram, [facility]. 06/21/2017 Bilateral Screening Mammogram, [facility]. 10/28/2018 Bilateral Screening Mammogram, [facility]. Tissue Density: The breast tissue is heterogeneously dense. This may lower the sensitivity of mammography. Findings: Analyzed By CAD. There is no suspicious group of microcalcifications or new suspicious mass in either breast. Overall Assessment: Benign, BI-RAD 2 Management: Screening Mammogram of both breasts in 1 year. . Patient should continue monthly self-breast exams. A clinical breast exam by your physician is recommended on an annual basis. This exam should not preclude additional follow-up of suspicious palpable abnormalities. Note on Nicci scores and lifetime risk: 1. A Nicci score greater than 3% is considered moderate risk. If this is the case, consider specialist referral to assess eligibility for a risk reducing agent. 2. If overall lifetime risk for the development of breast cancer is 20% or higher, the patient may qualify for future screening with alternating mammogram and breast MRI. Electronically signed and approved by: Francisco Osorio M.D. Radiologis
== END | disposition home or self-care (01) ==
LOC: RADMAMWWP 08:34
PROVIDERS: ATTEND Family Medicine
DX: Z12.31 Encounter for screening mammogram for malignant neoplasm of breast (principal); Z78.0 Asymptomatic menopausal state
CPT/HCPCS: 77063; 77067

== ENCOUNTER 2023-05-26 09:39 | Inpatient (IN) | payer MEDICARE, BC ==
[2023-05-26] MEDS: FUROSEMIDE 10 MG/ML 4 ML VIAL IV STA (09:58)
--- NOTE | 2023-05-26 09:58 | ED ---
General Adult HPI - General Chief complaint: Shortness of Breath Stated complaint: sob/chest pain Time Seen by Provider: 05/26/23 09:40 Source: patient, EMS, RN notes reviewed, old records reviewed Mode of arrival: EMS Limitations: no limitations - History of Present Illness Initial comments: This is an 82-year-old female who has a past medical history significant for coronary artery disease and has had a stent placed, she also is a diabetic and she also has aortic stenosis. Patient comes in today stating that she started having difficulty breathing this morning at about 7:00 she stated that it came on rather quickly. Patient states she felt relatively well yesterday. Patient states initially she had chest pressure that is let up quite a bit at this point in time. Patient denies any fever chills or cough or patient Nuys abdominal pain patient has nausea vomiting diarrhea. Patient Nuys any history of congestive heart failure. Patient denies any history of COPD. Patient states she never smoked. Patient denies any headache patient denies lightheadedness or dizziness. Patient's main complaint now is that she is having significant dy spnea. Patient was put on nonrebreather because when EMS arrived to the house she was oxygenating in high 60s the patient was 87% on arrival to the emergency department and once we got her settled in on a nonrebreather she was 90% - Related Data Home Medications Medication Instructions Recorded Confirmed Multivit-Min/FA/Lycopen/Lutein 1 tab PO DAILY 03/29/16 05/26/23 [Centrum Silver Tablet] Omeprazole 20 mg PO DAILY 03/29/16 05/26/23 Alendronate Sodium [Fosamax] 70 mg PO MO 08/09/21 05/26/23 Cholecalciferol [Vitamin D3 (25 50 mcg PO DAILY 08/09/21 05/26/23 Mcg = 1000 Iu)] Levothyroxine Sodium [Synthroid] 112 mcg PO MOTUWETHFR 08/09/21 05/26/23 Magnesium Oxide [Darden] 500 mg PO DAILY 08/09/21 05/26/23 Montelukast [Singulair] 10 mg PO HS 08/09/21 05/26/23 ALPRAZolam [Xanax] 0.25 mg PO Q8HR PRN 10/06/21 05/26/23 modafiniL [Provigil] 200 mg PO DAILY PRN 10/06/21 05/26/23 Acetaminophen [Tylenol Arthritis] 650 mg PO Q8HR PRN 03/19/22 05/26/23 Empagliflozin [Jardiance] 10 mg PO DAILY 03/19/22 05/26/23 Levothyroxine Sodium [Synthroid] 56 mcg PO SUSA 03/19/22 05/26/23 Metoprolol Succinate (ER) [Toprol 100 mg PO DAILY 03/19/22 05/26/23 XL] Ascorbic Acid [Vitamin C] 1,000 mg PO DAILY 05/26/23 05/26/23 Aspirin 81 mg PO AC-BRKFST 05/26/23 05/26/23 Atorvastatin [Lipitor] 80 mg PO DAILY 05/26/23 05/26/23 Calcium Carbonate [Calcium] 600 mg PO DAILY 05/26/23 05/26/23 Furosemide [Lasix] 40 mg PO DAILY 05/26/23 05/26/23 Verapamil HCl [Verapamil ER PM] 1 cap PO DAILY 05/26/23 05/26/23 Zinc 200mg 200 mg PO DAILY 05/26/23 05/26/23 Previous Rx's Medication Instructions Recorded Budesonide-Formot 160-4.5 Mcg 2 puff INHALATION RT-BID #1 inhaler 04/06/16 [Symbicort 160-4.5 Mcg Inhaler] Isosorbide Mononitrate ER [Imdur] 30 mg PO DAILY 30 Days #30 tab 10/09/21 Allergies Allergy/AdvReac Type Severity Reaction Status Date / Time clarithromycin [From Biaxin] Allergy Unknown Verified 05/26/23 11:52 gemifloxacin [From Factive] Allergy Unknown Verified 05/26/23 11:52 prednisone Allergy Unknown Verified 05/26/23 11:52 amoxicillin [From Augmentin] AdvReac Nausea & Verified 05/26/23 11:52 Vomiting & Diarrhea clavulanic acid AdvReac Nausea & Verified 05/26/23 11:52 [From Augmentin] Vomiting & Diarrhea Review of Systems ROS Statement: Those systems with pertinent positive or pertinent negative responses have been documented in the HPI. ROS Other: All systems not noted in ROS Statement are negative. Past Medical History Past Medical History: Heart Failure, Hyperlipidemia, Hypertension, Mitral Valve Prolapse (MVP), Rheumatoid Arthritis (RA), Thyroid Disorder Additional Past Medical History / Comment(s): HAD A PNE VACCINE AFTER AGE 67 BUT NOT SURE OF DATE,OFFICE CLOSED AT TIME OF THIS ADMIT. Last Myocardial Infarction Date:: History of Any Multi-Drug Resistant Organisms: None Reported Past Surgical History: Section, Orthopedic Surgery Additional Past Surgical History / Comment(s): total right knee replacement Past Anesthesia/Blood Transfusion Reactions: No Reported Reaction Additional Past Anesthesia/Blood Transfusion Reaction / Comment(s): clausterphobia Past Psychological History: No Psychological Hx Reported Smoking Status: Never smoker Past Alcohol Use History: Occasional Past Drug Use History: None Reported - Past Family History Father Additional Family Medical History / Comment(s): smoker-had problems related to that Mother Additional Family Medical History / Comment(s): smoker-problems related to that General Exam - General Exam Comments Initial Comments: GENERAL: Patient is well-developed and well-nourished. Patient is nontoxic and well- hydrated and is in moderate distress. ENT: Neck is soft and supple. No significant lymphadenopathy is noted. Oropharynx is clear. Moist mucous membranes. Neck has full range of motion without eliciting any pain. EYES: The sclera were anicteric and conjunctiva were pink and moist. Extraocular movements were intact and pupils were equal round and reactive to light. Eyelids were unremarkable. PULMONARY: Patient's respiratory rate is 30. Patient has crackles bilaterally up through the midportion of her lungs. CARDIOVASCULAR: There is a regular rate and rhythm without any murmurs gallops or rubs. ABDOMEN: Soft and nontender with normal bowel sounds. SKIN: Skin is clear with no lesions or rashes and otherwise unremarkable. NEUROLOGIC: Patient is alert and oriented x3. Cranial nerves II through XII are grossly intact. Motor and sensory are also intact. Normal speech, volume and content. Symmetrical smile. MUSCULOSKELETAL: Normal extremities with adequate strength and full range of motion. No lower extremity swelling or edema. No calf tenderness. LYMPHATICS: No significant lymphadenopathy is noted PSYCHIATRIC: Normal psychiatric evaluation. Limitations: no limitations Course Vital Signs 05/26/23 05/26/23 05/26/23 09:42 09:46 09:54 Temperature 98.2 F Pulse Rate 94 92 Respiratory 30 H 30 H 11 L Rate Blood Pressure 146/71 145/74 O2 Sat by Pulse 87 L 94 L Oximetry 05/26/23 05/26/23 05/26/23 10:00 10:05 11:00 Temperature Pulse Rate 92 90 89 Respiratory 26 H 30 H 34 H Rate Blood Pressure 145/74 128/63 120/57 O2 Sat by Pulse 94 L 98 Oximetry 05/26/23 05/26/23 05/26/23 11:21 11:30 11:38 Temperature Pulse Rate 90 93 99 Respiratory 25 H Rate Blood Pressure 109/58 O2 Sat by Pulse 98 Oximetry Medical Decision Making - Medical Decision Making EKG is interpreted by myself. EKG is of poor quality and shows a sinus rhythm with occasional PVC at 93 bpm [place] interval 132 QRS of 74 QT interval 356 QTc is 407. No obvious ST segment ovation is noted Was pt. sent in by a medical professional or institution (, PA, PROGRAM SUPPORT ASSISTANT, urgent care, hospital, or senior care...) When possible be specific @ -No Did you speak to anyone other than the patient for history (EMS, parent, family, police, friend...)? What history was obtained from this source @ -Family and EMS gave most of the history Did you review nursing and triage notes (agree or disagree)? Why? @ -I reviewed and agree with nursing and triage notes Were old charts reviewed (outside hosp., previous admission, EMS record, old EKG, old radiological studies, urgent care reports/EKG's, senior care records)? Report findings @ -I reviewed prior charts and prior lab work and prior radiological studies on this patient Differential Diagnosis (chest pain, altered mental status, abdominal pain women, abdominal pain men, vaginal bleeding, weakness, fever, dyspnea, syncope, headache, dizziness, GI bleed, back pain, seizure, CVA, palpatations, mental health, musculoskeletal)? @ -MDM differential dyspnea EKG interpreted by me (3pts min.). @ -As above X-rays interpreted by me (1pt min.). @ -Chest x-ray shows diffuse pneumonia CT interpreted by me (1pt min.). @ -None done U/S interpreted by me (1pt. min.). @ -None done What testing was considered but not performed or refused? (CT, X-rays, U/S, labs)? Why? @ -None What meds were considered but not given or refused? Why? @ -None Did you discuss the management of the patient with other professionals (prof kavon i.e. , PA, PROGRAM SUPPORT ASSISTANT, lab, RT, psych nurse, social sciences lecturer, burglar alarm operator, teacher, weapons officer naval activity, case specialist)? Give summary @ -I spoke with Dr. Pimentel and she agreed to admit the patient Was smoking cessation discussed for >3mins.? @ -No Was critical care preformed (if so, how long)? @ -35 minutes Were there social determinants of health that impacted care today? How? (Homelessness, low income, unemployed, alcoholism, drug addiction, transportation, low edu. Level, literacy, decrease access to med. care, correction, rehab)? @ -No Was there de-escalation of care discussed even if they declined (Discuss DNR or withdrawal of care, Hospice)? DNR status @ -No What co-morbidities impacted this encounter? (DM, HTN, Smoking, COPD, CAD, Cancer, CVA, ARF, Chemo, Hep., AIDS, mental health diagnosis, sleep apnea, morbid obesity)? @ -None Was patient admitted / discharged? Hospital course, mention meds given and route, prescriptions, significant lab abnormalities, going to OR and other pertinent info. @ -Patient received a breathing treatment while in the emergency department and was feeling considerably better and oxygenating much better. Patient also was given antibiotics in the emergency department. I spoke with Dr. Pimentel and she agreed to admit the patient admit the patient wrote admitting Ortho consulted pulmonary and ID Undiagnosed new problem with uncertain prognosis? @ -No Drug Therapy requiring intensive monitoring for toxicity (Heparin, Nitro, Insulin, Cardizem)? @ -No Were any procedures done? @ -No Diagnosis/symptom? @ -Pneumonia Acute, or Chronic, or Acute on Chronic? @ -Acute Uncomplicated (without systemic symptoms) or Complicated (systemic symptoms)? @ -Complicated Side effects of treatment? @ -No Exacerbation, Progression, or Severe Exacerbation? @ -No Poses a threat to life or bodily function? How? (Chest pain, USA, ME, pneumonia, PE, COPD, DKA, ARF, appy, cholecystitis, CVA, Diverticulitis, Homicidal, Suicidal, threat to staff... and all critical care pts) @ -Yes this could lead to hypoxia and endorgan dysfunction Diagnosis/symptom? @ -Sepsis Acute, or Chronic, or Acute on Chronic? @ -Acute Uncomplicated (without systemic symptoms) or Complicated (systemic symptoms)? @ -Default Side effects of treatment? @ -None Exacerbation, Progression, or Severe Exacerbation] @ -No Poses a threat to life or bodily function? @ -Yes this can lead to hypotension and endorgan dysfunction - Lab Data Result diagrams: 05/26/23 09:54 05/26/23 09:54 Lab Results 05/26/23 05/26/23 05/26/23 Range/Units 09:54 09:54 09:54 WBC 24.4 H (3.8-10.6) k/uL RBC 4.14 (3.80-5.40) m/uL Hgb 12.8 (11.4-16.0) gm/dL Hct 41.5 (34.0-46.0) % MCV 100.4 H (80.0-100.0) fL MCH 31.0 (25.0-35.0) pg MCHC 30.9 L (31.0-37.0) g/dL RDW 15.7 H (11.5-15.5) % Plt Count 300 (150-450) k/uL MPV 8.3 Neutrophils % 88 % Lymphocytes % 7 % Monocytes % 3 % Eosinophils % 0 % Basophils % 0 % Neutrophils # 21.6 H (1.3-7.7) k/uL Lymphocytes # 1.7 (1.0-4.8) k/uL Monocytes # 0.8 (0-1.0) k/uL Eosinophils # 0.1 (0-0.7) k/uL Basophils # 0.1 (0-0.2) k/uL Hypochromasia Slight Macrocytosis Slight PT 11.0 (10.0-12.5) sec INR 1.0 (<1.2) APTT 23.9 (22.0-30.0) sec D-Dimer 1.04 H (<0.60) mg/L FEU Sodium 142 (137-145) mmol/L Potassium 4.2 (3.5-5.1) mmol/L Chloride 107 (98-107) mmol/L Carbon Dioxide 28 (22-30) mmol/L Anion Gap 7 mmol/L BUN 15 (7-17) mg/dL Creatinine 0.73 (0.52-1.04) mg/dL Est GFR (CKD-EPI)AfAm >90 (>60 ml/min/1.73 sqM) Est GFR (CKD-EPI)NonAf 78 (>60 ml/min/1.73 sqM) Glucose 111 H (74-99) mg/dL Plasma Lactic Acid Gabriel (0.7-2.0) mmol/L Calcium 8.7 (8.4-10.2) mg/dL Magnesium 2.2 (1.6-2.3) mg/dL Total Bilirubin 0.7 (0.2-1.3) mg/dL AST 41 H (14-36) U/L ALT 27 (4-34) U/L Alkaline Phosphatase 96 (38-126) U/L Troponin I (0.000-0.034) ng/mL NT-Pro-B Natriuret Pep 875 pg/mL Total Protein 7.7 (6.3-8.2) g/dL Albumin 3.6 (3.5-5.0) g/dL Urine Color Urine Appearance (Clear) Urine pH (5.0-8.0) Ur Specific [place] (1.001-1.035) Urine Protein (Negative) Urine Glucose (UA) (Negative) Urine Ketones (Negative) Urine Blood (Negative) Urine Nitrite (Negative) Urine Bilirubin (Negative) Urine Urobilinogen (<2.0) mg/dL Ur Leukocyte Esterase (Negative) 05/26/23 05/26/23 05/26/23 Range/Units 09:54 09:54 11:24 WBC (3.8-10.6) k/uL RBC (3.80-5.40) m/uL Hgb (11.4-16.0) gm/dL Hct (34.0-46.0) % MCV (80.0-100.0) fL MCH (25.0-35.0) pg MCHC (31.0-37.0) g/dL RDW (11.5-15.5) % Plt Count (150-450) k/uL MPV Neutrophils % % Lymphocytes % % Monocytes % % Eosinophils % % Basophils % % Neutrophils # (1.3-7.7) k/uL Lymphocytes # (1.0-4.8) k/uL Monocytes # (0-1.0) k/uL Eosinophils # (0-0.7) k/uL Basophils # (0-0.2) k/uL Hypochromasia Macrocytosis PT (10.0-12.5) sec INR (<1.2) APTT (22.0-30.0) sec D-Dimer (<0.60) mg/L FEU Sodium (137-145) mmol/L Potassium (3.5-5.1) mmol/L Chloride (98-107) mmol/L Carbon Dioxide (22-30) mmol/L Anion Gap mmol/L BUN (7-17) mg/dL Creatinine (0.52-1.04) mg/dL Est GFR (CKD-EPI)AfAm (>60 ml/min/1.73 sqM) Est GFR (CKD-EPI)NonAf (>60 ml/min/1.73 sqM) Glucose (74-99) mg/dL Plasma Lactic Acid Gabriel 1.5 (0.7-2.0) mmol/L Calcium (8.4-10.2) mg/dL Magnesium (1.6-2.3) mg/dL Total Bilirubin (0.2-1.3) mg/dL AST (14-36) U/L ALT (4-34) U/L Alkaline Phosphatase (38-126) U/L Troponin I <0.012 (0.000-0.034) ng/mL NT-Pro-B Natriuret Pep pg/mL Total Protein (6.3-8.2) g/dL Albumin (3.5-5.0) g/dL Urine Color Colorless Urine Appearance Clear (Clear) Urine pH 6.5 (5.0-8.0) Ur Specific [place] 1.006 (1.001-1.035) Urine Protein Negative (Negative) Urine Glucose (UA) 4+ H (Negative) Urine Ketones Negative (Negative) Urine Blood Negative (Negative) Urine Nitrite Negative (Negative) Urine Bilirubin Negative (Negative) Urine Urobilinogen <2.0 (<2.0) mg/dL Ur Leukocyte Esterase Negative (Negative) 05/26/23 Range/Units 11:24 WBC (3.8-10.6) k/uL RBC (3.80-5.40) m/uL Hgb (11.4-16.0) gm/dL Hct (34.0-46.0) % MCV (80.0-100.0) fL MCH (25.0-35.0) pg MCHC (31.0-37.0) g/dL RDW (11.5-15.5) % Plt Count (150-450) k/uL MPV Neutrophils % % Lymphocytes % % Monocytes % % Eosinophils % % Basophils % % Neutrophils # (1.3-7.7) k/uL Lymphocytes # (1.0-4.8) k/uL Monocytes # (0-1.0) k/uL Eosinophils # (0-0.7) k/uL Basophils # (0-0.2) k/uL Hypochromasia Macrocytosis PT (10.0-12.5) sec INR (<1.2) APTT (22.0-30.0) sec D-Dimer (<0.60) mg/L FEU Sodium (137-145) mmol/L Potassium (3.5-5.1) mmol/L Chloride (98-107) mmol/L Carbon Dioxide (22-30) mmol/L Anion Gap mmol/L BUN (7-17) mg/dL Creatinine (0.52-1.04) mg/dL Est GFR (CKD-EPI)AfAm (>60 ml/min/1.73 sqM) Est GFR (CKD-EPI)NonAf (>60 ml/min/1.73 sqM) Glucose (74-99) mg/dL Plasma Lactic Acid Gabriel 1.3 (0.7-2.0) mmol/L Calcium (8.4-10.2) mg/dL Magnesium (1.6-2.3) mg/dL Total Bilirubin (0.2-1.3) mg/dL AST (14-36) U/L ALT (4-34) U/L Alkaline Phosphatase (38-126) U/L Troponin I (0.000-0.034) ng/mL NT-Pro-B Natriuret Pep pg/mL Total Protein (6.3-8.2) g/dL Albumin (3.5-5.0) g/dL Urine Color Urine Appearance (Clear) Urine pH (5.0-8.0) Ur Specific [place] (1.001-1.035) Urine Protein (Negative) Urine Glucose (UA) (Negative) Urine Ketones (Negative) Urine Blood (Negative) Urine Nitrite (Negative) Urine Bilirubin (Negative) Urine Urobilinogen (<2.0) mg/dL Ur Leukocyte Esterase (Negative) Critical Care Time Critical Care Time: Yes Total Critical Care Time: 35 Disposition Clinical Impression: Pneumonia, Sepsis Disposition: ADMITTED IP TO THIS HOSP Referrals: Paul Bonilla DO [Primary Care Provider] - 1-2 days Time of Disposition: 12:32
[2023-05-26] MEDS: NITROGLYCERIN OINT 1 INCH/GM PACKET TOPICAL STA (10:08)
[2023-05-26 10:19] LABS: Basophils # (A) 0.1 k/uL (0-0.2); Basophils % (A) 0 %; Eosinophils # (A) 0.1 k/uL (0-0.7); Eosinophils % (A) 0 %; HCT 41.5 % (34.0-46.0); HGB 12.8 gm/dL (11.4-16.0); Hypochromasia Slight; Lymphocytes # (A) 1.7 k/uL (1.0-4.8); Lymphocytes % (A) 7 %; MCHC 30.9 g/dL (31.0-37.0); MCV 100.4 fL (80.0-100.0); Macrocytosis Slight; Mean Platelet Volume 8.3; Monocytes # (A) 0.8 k/uL (0-1.0); Monocytes % (A) 3 %; Neutrophils # (A) 21.6 k/uL (1.3-7.7); Neutrophils % (A) 88 %; Platelet Count 300 k/uL (150-450); RBC 4.14 m/uL (3.80-5.40); RDW 15.7 % (11.5-15.5); WBC 24.4 k/uL (3.8-10.6)
[2023-05-26 10:26] LABS: ALT 27 U/L (4-34); AST 41 U/L (14-36); African American GFR (CKD) >90 (>60 ml/min/1.73 sqM); Albumin 3.6 g/dL (3.5-5.0); Alkaline Phosphatase 96 U/L (38-126); Anion Gap 7 mmol/L; Blood Urea Nitrogen 15 mg/dL (7-17); Calcium 8.7 mg/dL (8.4-10.2); Carbon Dioxide 28 mmol/L (22-30); Chloride 107 mmol/L (98-107); Glucose 111 mg/dL (74-99); Magnesium 2.2 mg/dL (1.6-2.3); Non-African American GFR(CKD) 78 (>60 ml/min/1.73 sqM); Potassium 4.2 mmol/L (3.5-5.1); Sodium 142 mmol/L (137-145); Total Bilirubin 0.7 mg/dL (0.2-1.3); Total Protein 7.7 g/dL (6.3-8.2)
[2023-05-26 10:30] LABS: Partial Thromboplastin Time 23.9 sec (22.0-30.0)
[2023-05-26 10:34] LABS: NT-Pro-B-Type Natriuretic Pept 875 pg/mL
--- NOTE | 2023-05-26 10:56 | XR ---
EXAMINATION TYPE: XR chest 2V DATE OF EXAM: 05/26/2023 10:18 AM CLINICAL INDICATION:Female, 82 years old with history of difficulty breathing; [facility] COMPARISON: Chest radiographs from 03/30/2022 TECHNIQUE: XR chest 2V Frontal and lateral views of the chest. FINDINGS: Lungs/Pleura: No evidence of focal consolidation or pneumothorax. Blunting of the costophrenic angles is present. Pulmonary vascularity: Pulmonary vascular congestion. Heart/mediastinum: Cardiomediastinal silhouette is enlarged and stable. Musculoskeletal: No acute osseous pathology. IMPRESSION: 1. Similar multifocal airspace opacities. 2. Stable support lines and tubes.
[2023-05-26] MEDS: IPRATROPIUM-ALBUTEROL 3 ML NEB INHALATION STA (11:21)
[2023-05-26] MEDS: cefTRIAXone IN SWFI 1,000 MG/10 ML SYRINGE IVP STA ×2 (11:29→11:30)
[2023-05-26 12:22] LABS: Appearance,Urine Clear (Clear); Bilirubin,Urine Negative (Negative); Blood,Urine Negative (Negative); Color,Urine Colorless; Glucose,Urine (UA) 4+ (Negative); Ketones,Urine Negative (Negative); Leukocyte Esterase,Urine Negative (Negative); Nitrite,Urine Negative (Negative); PH, Urine 6.5 (5.0-8.0); Protein,Urine Negative (Negative); Specific Gravity,Urine 1.006 (1.001-1.035); Urobilinogen,Urine <2.0 mg/dL (<2.0)
[2023-05-26] MEDS ORDERED: PNEUMONIA PROTOCOL UTILIZED 1 EACH MISC PO PRN (12:32)
--- NOTE | 2023-05-26 13:04 | CT ---
EXAMINATION TYPE: CT chest angio for PE CT DLP: 198.9 mGycm, Automated exposure control for dose reduction was used. DATE OF EXAM: 05/26/2023 12:47 PM COMPARISON: Chest radiograph from same day. Multiple CTs of the chest with most recent on . 06/09/2021 CLINICAL INDICATION:Female, 82 years old with history of Elevated D-dimer, dyspnea; pe TECHNIQUE/CONTRAST: CTA scan of the thorax is performed with IV Contrast, patient injected with 65 mL of Isovue 370, MIP images are created and reviewed these are created on a separate workstation.. FINDINGS: Pulmonary Artery: There is no evidence for a filling defect within the pulmonary vasculature to sugge st acute pulmonary embolism. The pulmonary artery is of normal size. Lungs/Pleura: No evidence of focal consolidation, pleural effusion or pneumothorax. Multifocal airspa ce opacities are seen throughout the lungs. Airway: Large airways are patent. Heart: Enlarged enlarged for size. There is severe coronary artery atherosclerosis. Mild aortic valve calcifications are present. Vasculature: No evidence of aortic aneurysm. Mediastinum: Nonenlarged lymph nodes throughout the mediastinum including right low paratracheal [place] uring 14 mm short axis, AP window measuring 18 mm in short axis, subcarinal measuring 19 mm in short axis. Small hiatal hernia is present. Musculoskeletal: No acute osseous abnormalities Soft Tissues: Unremarkable. Lower neck: No significant findings. Upper Abdomen: No significant findings. IMPRESSION: 1. No evidence of pulmonary embolism. 2. Scattered airspace opacities throughout the lungs with cardiomegaly. Findings could represent mult ifocal pneumonia with superimposed congestive heart failure changes not excluded. Correlate with seru m BNP and clinical correlation. Follow up recommendations for incidental pulmonary nodules, if there are any, are per Fleisch 3. Multiple enlarged lymph nodes are seen throughout the mediastinum which have been seen dating back to 2017 appears slightly larger on today's exam. Given acute process in the chest/infection/congesti ve heart failure this could be reactive. Attention follow-up imaging
[2023-05-26] MEDS: AZITHROMYCIN 500 MG in SODIUM CHLORIDE 0.9% 250 ML IVPB STA (13:29)
[2023-05-26] MEDS: methylPREDNISolone SOD SUCCI 125 MG/2 ML VIAL IV STA (13:33)
--- NOTE | 2023-05-26 14:39 | P.HPIM ---
History of Present Illness H&P Date: 05/26/23 Chief Complaint: Shortness of breath 82-year-old female who has a past medical history significant for hypertension, hyperlipidemia, hypothyroidism, coronary artery disease and has had a stent placed, she also is a diabetic and she also has aortic stenosis. Patient comes in today stating that she started having difficulty breathing this morning at about 7:00 she stated that it came on rather quickly. Patient states she felt relatively well yesterday. Patient states initially she had chest pressure that is let up quite a bit at this point in time. Patient denies any fever chills or cough or patient Nuys abdominal pain patient has nausea vomiting diarrhea. Patient Nuys any history of congestive heart failure. Patient denies any history of COPD. Patient states she never smoked. Patient denies any headache patient denies lightheadedness or dizziness. Patient's main complaint now is that she is having significant dyspnea. Patient was put on nonrebreather b ecause when EMS arrived to the house she was oxygenating in high 60s the patient was 87% on arrival to the emergency department and once we got her settled in on a nonrebreather she was 90% Blood work completed in ED reveals a WBC of 24.4, hemoglobin of 12.8 and platelet count of 300, D-dimer elevated at 1.04, sodium 142, potassium 4.2, BUN/creatinine of 15/0.73, AST mildly elevated at 41 BNP of 875, UA is unremarkable Chest x-ray reveals multifocal airspace opacities CTA chest is negative for PE reveals scattered airspace opacities; throughout the lungs with cardiomegaly consistent with multifocal pneumonia with superimposed CHF multiple enlarged lymph nodes are seen throughout the mediast inum; which are slightly larger than previous exams in 2017; given possible infectious process, enlarged lymph nodes could be reactive Review of Systems REVIEW OF SYSTEMS: CONSTITUTIONAL: No fever, no malaise, no fatigue. HEENT: No recent visual problems or hearing problems. Denied any sore throat. CARDIOVASCULAR: No chest pain, orthopnea, PND, no palpitations, no syncope. PULMONARY: No shortness of breath, no cough, no hemoptysis. GASTROINTESTINAL: No diarrhea, no nausea, no vomiting, no abdominal pain. NEUROLOGICAL: No headaches, no weakness, no numbness. HEMATOLOGICAL: Denies any bleeding or petechiae. GENITOURINARY: Denies any burning micturition, frequency, or urgency. MUSCULOSKELETAL/RHEUMATOLOGICAL: Denies any joint pain, swelling, or any muscle pain. ENDOCRINE: Denies any polyuria or polydipsia. The rest of the 14-point review of systems is negative. Past Medical History Past Medical History: Heart Failure, Hyperlipidemia, Hypertension, Mitral Valve Prolapse (MVP), Rheumatoid Arthritis (RA), Thyroid Disorder Additional Past Medical History / Comment(s): HAD A PNE VACCINE AFTER AGE 67 BUT NOT SURE OF DATE,OFFICE CLOSED AT TIME OF THIS ADMIT. Last Myocardial Infarction Date:: History of Any Multi-Drug Resistant Organisms: None Reported Past Surgical History: Section, Orthopedic Surgery Additional Past Surgical History / Comment(s): total right knee replacement Past Anesthesia/Blood Transfusion Reactions: No Reported Reaction Additional Past Anesthesia/Blood Transfusion Reaction / Comment(s): cla usterphobia Past Psychological History: No Psychological Hx Reported Smoking Status: Never smoker Past Alcohol Use History: Occasional Past Drug Use History: None Reported - Past Family History Father Additional Family Medical History / Comment(s): smoker-had problems related to that Mother Additional Family Medical History / Comment(s): smoker-problems related to that Medications and Allergies Home Medications Medication Instructions Recorded Confirmed Type Multivit-Min/FA/Lycopen/Lutein 1 tab PO DAILY 03/29/16 05/26/23 History [Centrum Silver Tablet] Omeprazole 20 mg PO DAILY 03/29/16 05/26/23 History Budesonide-Formot 160-4.5 Mcg 2 puff INHALATION RT-BID #1 inhaler 04/06/16 05/26/23 Rx [Symbicort 160-4.5 Mcg Inhaler] Alendronate Sodium [Fosamax] 70 mg PO MO 08/09/21 05/26/23 History Cholecalciferol [Vitamin D3 (25 50 mcg PO DAILY 08/09/21 05/26/23 History Mcg = 1000 Iu)] Levothyroxine Sodium [Synthroid] 112 mcg PO MOTUWETHFR 08/09/21 05/26/23 History Magnesium Oxide [Darden] 500 mg PO DAILY 08/09/21 05/26/23 History Montelukast [Singulair] 10 mg PO HS 08/09/21 05/26/23 History ALPRAZolam [Xanax] 0.25 mg PO Q8HR PRN 07/29/22 03/17/24 History modafiniL [Provigil] 200 mg PO DAILY PRN 10/06/21 05/26/23 History Isosorbide Mononitrate ER [Imdur] 30 mg PO DAILY 30 Days #30 tab 10/09/21 05/26/23 Rx Acetaminophen [Tylenol Arthritis] 650 mg PO Q8HR PRN 03/19/22 05/26/23 History Empagliflozin [Jardiance] 10 mg PO DAILY 03/19/22 05/26/23 History Levothyroxine Sodium [Synthroid] 56 mcg PO SUSA 03/19/22 05/26/23 History Metoprolol Succinate (ER) [Toprol 100 mg PO DAILY 03/19/22 05/26/23 History XL] Ascorbic Acid [Vitamin C] 1,000 mg PO DAILY 05/26/23 05/26/23 History Aspirin 81 mg PO AC-BRKFST 05/26/23 05/26/23 History Atorvastatin [Lipitor] 80 mg PO DAILY 05/26/23 05/26/23 History Calcium Carbonate [Calcium] 600 mg PO DAILY 05/26/23 05/26/23 History Furosemide [Lasix] 40 mg PO DAILY 05/26/23 05/26/23 History Verapamil HCl [Verapamil ER PM] 1 cap PO DAILY 05/26/23 05/26/23 History Zinc 200mg 200 mg PO DAILY 05/26/23 05/26/23 History Allergies Allergy/AdvReac Type Severity Reaction Status Date / Time clarithromycin [From Biaxin] Allergy Unknown Verified 05/26/23 11:52 gemifloxacin [From Factive] Allergy Unknown Verified 05/26/23 11:52 prednisone Allergy Unknown Verified 05/26/23 11:52 amoxicillin [From Augmentin] AdvReac Nausea & Verified 05/26/23 11:52 Vomiting & Diarrhea clavulanic acid AdvReac Nausea & Verified 05/26/23 11:52 [From Augmentin] Vomiting & Diarrhea Physical Exam Vitals: Vital Signs Temp Pulse Resp BP Pulse Ox 05/26/23 13:20 98.2 F 97 20 112/57 94 L 05/26/23 11:38 99 05/26/23 11:30 93 25 H 109/58 98 05/26/23 11:21 90 05/26/23 11:00 89 34 H 120/57 05/26/23 10:05 90 30 H 128/63 98 05/26/23 10:00 92 26 H 145/74 94 L 05/26/23 09:54 92 11 L 145/74 94 L 05/26/23 09:46 30 H 05/26/23 09:42 98.2 F 94 30 H 146/71 87 L Intake and Output 05/25/23 05/26/23 05/26/23 22:59 06:59 14:59 Other: Weight 65.771 kg General appearance: Present: average body habitus, cooperative, no acute distress Eyes: Present: anicteric sclerae, EOMI, PERRLA, normal appearance ENT: Present: hearing grossly normal, normal oropharynx Neck: Present: normal ROM. Absent: lymphadenopathy, rigidity, thyromegaly Carotids: negative: bruit present Thyroid: bilateral: normal size, negative: enlarged, nodule Respiratory: bilateral: CTA, negative: rales, rhonchi, wheezing Cardiovascular: regular: normal: S1, S2 Gastrointestinal: Present: normal bowel sounds, soft. Absent: distended, organomegaly, tenderness Integumentary: Present: normal turgor. Absent: jaundiced, rash, ulcer Neurologic: Present: CNII-XII intact. Absent: focal deficits Musculoskeletal: Present: gait normal, strength equal bilaterally Psychiatric: Present: A&O x's 3, appropriate affect, intact judgment & insight Results CBC & Chem 7: 05/26/23 09:54 05/26/23 09:54 Labs: Abnormal Lab Results - Last 24 Hours (Table) 05/26/23 05/26/23 05/26/23 Range/Units 09:54 09:54 09:54 WBC 24.4 H (3.8-10.6) k/uL MCV 100.4 H (80.0-100.0) fL MCHC 30.9 L (31.0-37.0) g/dL RDW 15.7 H (11.5-15.5) % Neutrophils # 21.6 H (1.3-7.7) k/uL D-Dimer 1.04 H (<0.60) mg/L FEU Glucose 111 H (74-99) mg/dL AST 41 H (14-36) U/L Urine Glucose (UA) (Negative) 05/26/23 Range/Units 11:24 WBC (3.8-10.6) k/uL MCV (80.0-100.0) fL MCHC (31.0-37.0) g/dL RDW (11.5-15.5) % Neutrophils # (1.3-7.7) k/uL D-Dimer (<0.60) mg/L FEU Glucose (74-99) mg/dL AST (14-36) U/L Urine Glucose (UA) 4+ H (Negative) Assessment and Plan Assessment: 1. Multifocal pneumonia -Patient has been placed on IV Rocephin 2 g daily along with azithromycin 500 mg IV daily; continue with O2 per nasal cannula with plans to titrate keeping O2 saturation greater than 92% -Will monitor CBC, CRP and procalcitonin 2. Acute exacerbation CHF -Patient takes Lasix 40 mg daily at home; will hold with home dose and start patient on Lasix 40 mg IV every 12 hours; will monitor strict LIBBY's, daily weights, low-salt and fluid restricted diet -- Monitor EKG and trend troponin; order 2D echo -Consult cardiology 3. Leukocytosis; likely related to multifocal pneumonia; white blood count is up to 24 upon admission; patient has been placed on IV antibiotics; will monitor CBC, CRP and procalcitonin 4. Hypertension; Toprol-XL 100 mg daily, verapamil ER 100 mg capsule daily 5. Hyperlipidemia; Lipitor 80 mg daily 6. Hypothyroidism; levothyroxine 112 mcg's every Saturday and Saturday and 56 mcg on Saturdays and Sundays 7. History of CAD/CHF; patient takes aspirin, atorvastatin, metoprolol, Imdur 30 mg daily and Lasix 40 mg daily; Jardiance 10 mg daily 8. COPD; not in exacerbation; will continue with home inhaler therapy, Singulair 10 mg daily DVT prophylaxis; SCDs/subcu heparin CODE STATUS; full code
[2023-05-26] MEDS: ACETAMINOPHEN TAB 325 MG TAB PO PRN (15:30)
[2023-05-26] MEDS: IPRATROPIUM-ALBUTEROL 3 ML NEB INHALATION SCH (15:44)
[2023-05-26 16:37] LABS: Glucose,Whole Blood 169 mg/dL (70-110)
[2023-05-26] MEDS: methylPREDNISolone SOD SUCCI 125 MG/2 ML VIAL IV SCH (17:52)
[2023-05-26] MEDS: LEVOTHYROXINE 50 MCG TAB PO SCH (17:53)
[2023-05-26] MEDS: SYMBICORT 160-4.5 MCG INHALER INHALATION SCH (20:29)
--- NOTE | 2023-05-26 20:54 | P.CONS ---
History of Present Illness - Reason for Consult Consult date: 05/26/23 Pneumonia Requesting physician: Raghu Roberts - Chief Complaint Increasing shortness of breath x 1 day - History of Present Illness Patient is a 82-year-old female with a past medical history significant for hypertension hyperlipidemia rheumatoid arthritis mitral valve prolapse and heart failure with presenting to the hospital for evaluation of increasing shortness of breath. The patient mention she has not been feeling well for the last few days however this morning when she woke up noticed to have increasing shortness of breath felt very weak and did have some chest pressure patient also have a cough which has been moderate intensity but not bring up any sputum patient denies having any nausea no vomiting no choking on the food no abdominal pain or any diarrhea with the symptoms the patient was brought into the hospital on arrival to the ER the patient was afebrile patient was nontachycardic or hypotensive patient was hypoxic with O2 sats of 87% on room air patient had 104.4 with a left shift creatinine was 0.73 liver isms normal electrolytes are normal urine has been negative patient did have a chest x-ray multifocal airspace opacity correlate for pneumonia versus CHF patient also have a CT angiogram of the chest negative for PE did show scattered airspace opacity throughout the lungs with cardiomegaly multifocal pneumonia with superimposed congestive heart failure patient has been admitted to the hospital started on Rocephin and Zithromax infectious disease was consulted for further management of antibiotic therapy Review of Systems Positive point and negatives has been mentioned in the HPI, complete review of systems was performed and all other systems are negative Past Medical History Past Medical History: Heart Failure, Hyperlipidemia, Hypertension, Mitral Valve Prolapse (MVP), Rheumatoid Arthritis (RA), Thyroid Disorder Additional Past Medical History / Comment(s): HAD A PNE VACCINE AFTER AGE 67 BUT NOT SURE OF DATE,OFFICE CLOSED AT TIME OF THIS ADMIT. Last Myocardial Infarction Date:: History of Any Multi-Drug Resistant Organisms: None Reported Past Surgical History: Section, Orthopedic Surgery Additional Past Surgical History / Comment(s): total right knee replacement Past Anesthesia/Blood Transfusion Reactions: No Reported Reaction Additional Past Anesthesia/Blood Transfusion Reaction / Comm: clausterphobia Past Psychological History: No Psychological Hx Reported Smoking Status: Never smoker Past Alcohol Use History: Occasional Past Drug Use History: None Reported - Past Family History Father Additional Family Medical History / Comment(s): smoker-had problems related to that Mother Additional Family Medical History / Comment(s): smoker-problems related to that Medications and Allergies Home Medications Medication Instructions Recorded Confirmed Type Multivit-Min/FA/Lycopen/Lutein 1 tab PO DAILY 03/29/16 05/26/23 History [Centrum Silver Tablet] Omeprazole 20 mg PO DAILY 03/29/16 05/26/23 History Budesonide-Formot 160-4.5 Mcg 2 puff INHALATION RT-BID #1 inhaler 04/06/16 05/26/23 Rx [Symbicort 160-4.5 Mcg Inhaler] Alendronate Sodium [Fosamax] 70 mg PO MO 08/09/21 05/26/23 History Cholecalciferol [Vitamin D3 (25 50 mcg PO DAILY 08/09/21 05/26/23 History Mcg = 1000 Iu)] Levothyroxine Sodium [Synthroid] 112 mcg PO MOTUWETHFR 08/09/21 05/26/23 History Magnesium Oxide [Darden] 500 mg PO DAILY 08/09/21 05/26/23 History Montelukast [Singulair] 10 mg PO HS 08/09/21 05/26/23 History ALPRAZolam [Xanax] 0.25 mg PO Q8HR PRN 10/06/21 05/26/23 History modafiniL [Provigil] 200 mg PO DAILY PRN 10/06/21 05/26/23 History Isosorbide Mononitrate ER [Imdur] 30 mg PO DAILY 30 Days #30 tab 10/09/21 05/26/23 Rx Acetaminophen [Tylenol Arthritis] 650 mg PO Q8HR PRN 03/19/22 05/26/23 History Empagliflozin [Jardiance] 10 mg PO DAILY 03/19/22 05/26/23 History Levothyroxine Sodium [Synthroid] 56 mcg PO SUSA 03/19/22 05/26/23 History Metoprolol Succinate (ER) [Toprol 100 mg PO DAILY 03/19/22 05/26/23 History XL] Ascorbic Acid [Vitamin C] 1,000 mg PO DAILY 05/26/23 05/26/23 History Aspirin 81 mg PO AC-BRKFST 05/26/23 05/26/23 History Atorvastatin [Lipitor] 80 mg PO DAILY 05/26/23 05/26/23 History Calcium Carbonate [Calcium] 600 mg PO DAILY 05/26/23 05/26/23 History Furosemide [Lasix] 40 mg PO DAILY 05/26/23 05/26/23 History Verapamil HCl [Verapamil ER PM] 1 cap PO DAILY 05/26/23 05/26/23 History Zinc 200mg 200 mg PO DAILY 05/26/23 05/26/23 History Albuterol Inhaler [Ventolin Hfa 2 puff INHALATION RT-QID PRN #1 05/31/23 Rx Inhaler] each predniSONE See Taper PO DIRECTED #30 tab 05/31/23 Rx Allergies Allergy/AdvReac Type Severity Reaction Status Date / Time clarithromycin [From Biaxin] Allergy Unknown Verified 05/26/23 11:52 gemifloxacin [From Factive] Allergy Unknown Verified 05/26/23 11:52 prednisone Allergy Unknown Verified 05/26/23 11:52 amoxicillin [From Augmentin] AdvReac Nausea & Verified 05/26/23 11:52 Vomiting & Diarrhea clavulanic acid AdvReac Nausea & Verified 05/26/23 11:52 [From Augmentin] Vomiting & Diarrhea Physical Exam Vitals: Vital Signs Temp Pulse Resp BP Pulse Ox 05/26/23 13:20 98.2 F 97 20 112/57 94 L 05/26/23 11:38 99 05/26/23 11:30 93 25 H 109/58 98 05/26/23 11:21 90 05/26/23 11:00 89 34 H 120/57 05/26/23 10:05 90 30 H 128/63 98 05/26/23 10:00 92 26 H 145/74 94 L 05/26/23 09:54 92 11 L 145/74 94 L 05/26/23 09:46 30 H 05/26/23 09:42 98.2 F 94 30 H 146/71 87 L Intake and Output 05/25/23 05/26/23 05/26/23 22:59 06:59 14:59 Other: Weight 65.771 kg GENERAL DESCRIPTION: Elderly female lying in bed, no distress. No tachypnea or accessory muscle of respiration use. HEENT: Shows Pallor , no scleral icterus. Oral mucous membrane is dry. No pha ryngeal erythema or thrush NECK: Trachea central, no thyromegaly. LUNGS: Unlabored breathing. Coarse breath sounds bilaterally HEART: S1, S2, regular rate and rhythm. No loud murmur ABDOMEN: Soft, no tenderness , guarding or rigidity, no organomegaly EXTREMITIES: No edema of feet. SKIN: No rash, no masses palpable. NEUROLOGICAL: The patient is awake, alert, oriented x3, mood and affect normal. Results CBC & Chem 7: 05/31/23 10:19 05/31/23 10:19 Labs: Abnormal Lab Results - Last 24 Hours (Table) 05/26/23 05/26/23 05/26/23 Range/Units 09:54 09:54 09:54 WBC 24.4 H (3.8-10.6) k/uL MCV 100.4 H (80.0-100.0) fL MCHC 30.9 L (31.0-37.0) g/dL RDW 15.7 H (11.5-15.5) % Neutrophils # 21.6 H (1.3-7.7) k/uL D-Dimer 1.04 H (<0.60) mg/L FEU Glucose 111 H (74-99) mg/dL AST 41 H (14-36) U/L Urine Glucose (UA) (Negative) 05/26/23 Range/Units 11:24 WBC (3.8-10.6) k/uL MCV (80.0-100.0) fL MCHC (31.0-37.0) g/dL RDW (11.5-15.5) % Neutrophils # (1.3-7.7) k/uL D-Dimer (<0.60) mg/L FEU Glucose (74-99) mg/dL AST (14-36) U/L Urine Glucose (UA) 4+ H (Negative) Assessment and Plan (1) Leukocytosis Status: Acute Code(s): D72.829 - ELEVATED WHITE BLOOD CELL COUNT, UNSPECIFIED SNOMED Code(s): 073951473 (2) Pneumonia Status: Acute Code(s): J18.9 - PNEUMONIA, UNSPECIFIED ORGANISM SNOMED Code(s): 639801375 Plan: 1patient presented hospital with increasing shortness of breath which is likely multifactorial question of possible fluid overload with congestive heart failure underlying pneumonia cannot entirely excluded 2-we will try to obtain a sputum for Gram stain culture check a CRP and procalcitonin and NT-proBNP level 3-continue with Rocephin and Zithromax while waiting for the workup to be completed We will follow on clinical condition and cultures to further adjust medication if needed Thank you for this consultation we will follow the patient along with you Dictation was produced using [employer] dictation software. please excuse any grammatical, word or spelling errors. Time with Patient: Greater than 30
[2023-05-26 20:55] LABS: Glucose,Whole Blood 205 mg/dL (70-110)
[2023-05-26 21:52] LABS: Magnesium 2.4 mg/dL (1.6-2.3); Potassium 4.1 mmol/L (3.5-5.1)
[2023-05-26] MEDS: MONTELUKAST 10 MG TAB PO SCH (22:38)
[2023-05-26] MEDS: FUROSEMIDE 10 MG/ML 4 ML VIAL IV SCH (22:38)
[2023-05-26] MEDS: ALPRAZolam 0.25 MG TAB PO PRN (22:39)
--- NOTE | 2023-05-27 01:26 | P.CNPUL ---
History of Present Illness Consult date: 05/27/23 Requesting physician: Raghu Roberts Reason for consult: pneumonia Chief complaint: Shortness of breath and cough History of present illness: I am seeing this patient in consultation today 05/27/2023 after she presented with several days of cough and developed acute shortness of breath starting yesterday morning. Patient is an 82-year-old white female with past medical history significant for chronic bronchial asthma, mitral valve prolapse, hypertension, hyperlipidemia, CAD with previous stent, and a lifelong non- smoker. She does follow in the pulmonary office with Dr. Freed for management of her asthma. She is currently taking combination of Symbicort inhaler, DuoNebs [id number], albuterol rescue inhaler, and Singulair. She was to be transitioned to Trelegy inhaler on her last office visit. Last week, she noted that her grandson has been coughing and sneezing for the last 3 to 4 days, he comes to their house after school. She then developed similar symptoms including a dry nonproductive cough, chills, myalgias. When she woke up yesterday morning, she was acutely short of breath, and could not catch her breath. On arrival to the emergency room she was found to be hypoxic with an SpO2 in the 60s. She did test positive for COVID on arrival. She has received her initial set of COVID vaccinations along with 1 booster injection. She was initially placed on a nonrebreather. Chest x-ray showed multifocal airspace disease and blunting of bilateral costophrenic angles. Chest CTA did not show any evidence of pulmonary embolism. It did show scattered airspace opacities throughout bilateral lungs with cardiomegaly. Concerning for multifocal pneumonia, however, superimposed congestive heart failure changes were not excluded. There were multiple enlarged lymph nodes seen throughout the mediastinum which have been previously noted dating back to 2017, however slightly larger on this exam, likely reactive. CBC on arrival shows leukocytosis with a WBC count of 24.4, hemoglobin 12.8, hematocrit 41.5, platelets 300. D-dimer was 1.04. BMP unremarkable. Troponin less than 0.012. NT proBNP 875. Lactic acid level 1.5. Patient is currently resting comfortably in bed, on 6 L/min high flow nasal cannula, in no acute distress. She is afebrile. Vital signs are stable. Review of Systems REVIEW OF SYSTEMS: CONSTITUTIONAL: Denies any recent significant weight loss or weight gain. Admits generalized fatigue, malaise, and myalgias. Admits to chills. Denies fever. EYES: Denies change in vision. EARS, NOSE, MOUTH, THROAT: Denies headaches, denies sore throat. CARDIOVASCULAR: Denies chest pain, palpitations, syncope, lower extremity swelling RESPIRATORY: See HPI GASTROINTESTINAL: Denies change in appetite, abdominal pain, nausea and vomiting, or diarrhea GENITOURINARY: Denies hematuria, denies infections. MUSKULOSKELETAL: Denies pain, denies swelling. INTEGUMENTARY: Denies rash, denies eczema. NEUROLOGICAL: Denies recent memory loss, no recent seizure activity. PSYCHIATRIC: Denies anxiety, denies depression. HEMATOLOGIC/LYMPHATIC: Denies anemia, denies enlarged lymph node Past Medical History Past Medical History: Heart Failure, Hyperlipidemia, Hypertension, Mitral Valve Prolapse (MVP), Rheumatoid Arthritis (RA), Thyroid Disorder Additional Past Medical History / Comment(s): HAD A PNE VACCINE AFTER AGE 67 BUT NOT SURE OF DATE,OFFICE CLOSED AT TIME OF THIS ADMIT. Last Myocardial Infarction Date:: History of Any Multi-Drug Resistant Organisms: None Reported Past Surgical History: Section, Orthopedic Surgery Additional Past Surgical History / Comment(s): total right knee replacement Past Anesthesia/Blood Transfusion Reactions: No Reported Reaction Additional Past Anesthesia/Blood Transfusion Reaction / Comment(s): clausterphobia Past Psychological History: No Psychological Hx Reported Smoking Status: Never smoker Past Alcohol Use History: Occasional Past Drug Use History: None Reported - Past Family History Father Additional Family Medical History / Comment(s): smoker-had problems related to that Mother Additional Family Medical History / Comment(s): smoker-problems related to that Medications and Allergies Home Medications Medication Instructions Recorded Confirmed Type Multivit-Min/FA/Lycopen/Lutein 1 tab PO DAILY 03/29/16 05/26/23 History [Centrum Silver Tablet] Omeprazole 20 mg PO DAILY 03/29/16 05/26/23 History Budesonide-Formot 160-4.5 Mcg 2 puff INHALATION RT-BID #1 inhaler 04/06/16 05/26/23 Rx [Symbicort 160-4.5 Mcg Inhaler] Alendronate Sodium [Fosamax] 70 mg PO MO 08/09/21 05/26/23 History Cholecalciferol [Vitamin D3 (25 50 mcg PO DAILY 08/09/21 05/26/23 History Mcg = 1000 Iu)] Levothyroxine Sodium [Synthroid] 112 mcg PO MOTUWETHFR 08/09/21 05/26/23 History Magnesium Oxide [Darden] 500 mg PO DAILY 08/09/21 05/26/23 History Montelukast [Singulair] 10 mg PO HS 08/09/21 05/26/23 History ALPRAZolam [Xanax] 0.25 mg PO Q8HR PRN 10/06/21 05/26/23 History modafiniL [Provigil] 200 mg PO DAILY PRN 10/06/21 05/26/23 History Isosorbide Mononitrate ER [Imdur] 30 mg PO DAILY 30 Days #30 tab 10/09/21 05/26/23 Rx Acetaminophen [Tylenol Arthritis] 650 mg PO Q8HR PRN 03/19/22 05/26/23 History Empagliflozin [Jardiance] 10 mg PO DAILY 03/19/22 05/26/23 History Levothyroxine Sodium [Synthroid] 56 mcg PO SUSA 03/19/22 05/26/23 History Metoprolol Succinate (ER) [Toprol 100 mg PO DAILY 03/19/22 05/26/23 History XL] Ascorbic Acid [Vitamin C] 1,000 mg PO DAILY 05/26/23 05/26/23 History Aspirin 81 mg PO AC-BRKFST 05/26/23 05/26/23 History Atorvastatin [Lipitor] 80 mg PO DAILY 05/26/23 05/26/23 History Calcium Carbonate [Calcium] 600 mg PO DAILY 05/26/23 05/26/23 History Furosemide [Lasix] 40 mg PO DAILY 05/26/23 05/26/23 History Verapamil HCl [Verapamil ER PM] 1 cap PO DAILY 05/26/23 05/26/23 History Zinc 200mg 200 mg PO DAILY 05/26/23 05/26/23 History Allergies Allergy/AdvReac Type Severity Reaction Status Date / Time clarithromycin [From Biaxin] Allergy Unknown Verified 05/26/23 11:52 gemifloxacin [From Factive] Allergy Unknown Verified 05/26/23 11:52 prednisone Allergy Unknown Verified 05/26/23 11:52 amoxicillin [From Augmentin] AdvReac Nausea & Verified 05/26/23 11:52 Vomiting & Diarrhea clavulanic acid AdvReac Nausea & Verified 05/26/23 11:52 [From Augmentin] Vomiting & Diarrhea Physical Exam Vitals: Vital Signs Temp Pulse Pulse Resp BP BP Pulse Ox 05/26/23 23:08 96 05/26/23 20:45 93 05/26/23 20:30 94 05/26/23 20:00 98.8 F 98 20 134/80 90 L 05/26/23 17:15 98.4 F 94 21 111/53 96 05/26/23 15:54 90 05/26/23 15:44 92 92 L 05/26/23 14:00 96 21 05/26/23 13:50 97.5 F L 96 21 107/50 94 L 05/26/23 13:20 98.2 F 97 20 112/57 94 L 05/26/23 11:38 99 05/26/23 11:30 93 25 H 109/58 98 05/26/23 11:21 90 05/26/23 11:00 89 34 H 120/57 05/26/23 10:05 90 30 H 128/63 98 05/26/23 10:00 92 26 H 145/74 94 L 05/26/23 09:54 92 11 L 145/74 94 L 05/26/23 09:46 30 H 05/26/23 09:42 98.2 F 94 30 H 146/71 87 L Intake and Output 05/26/23 05/26/23 05/27/23 14:59 22:59 06:59 Intake Total 118 Balance 118 Intake: Oral 118 Other: Voiding Method External Catheter Weight 65.771 kg GENERAL EXAM: Alert, 82-year-old white female appearing stated age, comfortable in no apparent distress. HEAD: Normocephalic and atraumatic EYES: Normal reaction of pupils, equal size. NOSE: Clear with pink turbinates. THROAT: No erythema or exudates. NECK: No masses, no JVD. CHEST: No chest wall deformity. LUNGS: Equal air entry with diffuse rhonchi and crackles. On 6 L high flow nasal cannula. no conversational dyspnea or accessory muscle use while at rest CVS: S1 and S2 normal with grade 3 systolic murmur, regular rhythm. No other extra heart sounds ABDOMEN: No hepatosplenomegaly, active bowel sounds, no guarding or rigidity. SPINE: No scoliosis or deformity SKIN: No rashes CENTRAL NERVOUS SYSTEM: No focal deficits, tone is normal in all 4 extremities. EXTREMITIES: There is no peripheral edema, clubbing, or cyanosis. Peripheral pulses are intact. Results - Laboratory Findings CBC and BMP: 05/26/23 09:54 05/26/23 21:02 PT/INR, D-dimer PT 11.0 sec (10.0-12.5) 05/26/23 09:54 INR 1.0 (<1.2) 05/26/23 09:54 D-Dimer 1.04 mg/L FEU (<0.60) H 05/26/23 09:54 Abnormal lab findings: Abnormal Labs 05/26/23 05/26/23 05/26/23 09:54 09:54 09:54 WBC 24.4 H MCV 100.4 H MCHC 30.9 L RDW 15.7 H Neutrophils # 21.6 H D-Dimer 1.04 H Glucose 111 H POC Glucose (mg/dL) Magnesium AST 41 H Urine Glucose (UA) SARS-CoV-2 (PCR) 05/26/23 05/26/23 05/26/23 11:24 16:36 20:54 WBC MCV MCHC RDW Neutrophils # D-Dimer Glucose POC Glucose (mg/dL) 169 H 205 H Magnesium AST Urine Glucose (UA) 4+ H SARS-CoV-2 (PCR) 05/26/23 05/26/23 21:02 21:10 WBC MCV MCHC RDW Neutrophils # D-Dimer Glucose POC Glucose (mg/dL) Magnesium 2.4 H AST Urine Glucose (UA) SARS-CoV-2 (PCR) Detected A - Diagnostic Findings Chest x-ray: image reviewed CT scan - chest: image reviewed Assessment and Plan Assessment: Acute hypoxemic respiratory failure, secondary to acute COVID-pneumonia, Chest CTA did show scattered airspace opacities throughout bilateral lungs, concerning for multifocal pneumonia. Cardiomegaly noted. There were also multiple enlarged lymph nodes seen throughout the mediastinum dating back to 2017, however, slightly larger on this exam and likely reactive. Acute exacerbation of chronic bronchial asthma, secondary to above History of coronary artery disease with previous PCI/stent History of hyperlipidemia History of hypertension History of mitral valve prolapse History of heart failure preserved ejection fraction History of hypothyroidism Lifelong non-smoker Plan: Patient's medications, labs, imaging were reviewed Continue supplemental oxygen, currently on 6 L high flow nasal cannula, wean FiO2 as tolerated Continue supportive treatment. Continue combination of bronchodilators, Symbicort inhaler, and high-dose IV Solu-Medrol Continue empiric antibiotics, and a procalcitonin level is pending Lovenox for DVT prophylaxis Prognosis is guarded We will continue to follow, and additional recommendations are forthcoming I have personally seen and examined the patient, performed the documentation and the assessment and plan as written. Number of minutes spent on the visit:20 Time with Patient: Greater than 30
[2023-05-27] MEDS: ASPIRIN 81 MG PO SCH (06:21)
[2023-05-27 06:33] LABS: Glucose,Whole Blood 142 mg/dL (70-110)
--- NOTE | 2023-05-27 07:50 | XR ---
EXAMINATION TYPE: XR chest 1V portable DATE OF EXAM: 05/27/2023 7:06 AM CLINICAL INDICATION:Female, 82 years old with history of pneumonia; [facility] COMPARISON: Chest radiograph from one day prior. TECHNIQUE: XR chest 1V portable Frontal view of the chest. FINDINGS: Lungs/Pleura: Prominent interstitial lung markings are seen scattered throughout the lungs. No eviden ce of pneumothorax or pleural effusion. Pulmonary vascularity: Unremarkable. Heart/mediastinum: Cardiomediastinal silhouette is enlarged and stable. Musculoskeletal: No acute osseous pathology. IMPRESSION: Multifocal reticular opacities correlate for chronic interstitial lung disease with superimposed pneu monia/pulmonary vascular congestion not excluded.
[2023-05-27 08:13] LABS: African American GFR (CKD) 89 (>60 ml/min/1.73 sqM); Anion Gap 7 mmol/L; Blood Urea Nitrogen 20 mg/dL (7-17); Calcium 8.4 mg/dL (8.4-10.2); Carbon Dioxide 28 mmol/L (22-30); Chloride 104 mmol/L (98-107); Glucose 174 mg/dL (74-99); Non-African American GFR(CKD) 77 (>60 ml/min/1.73 sqM); Potassium 3.7 mmol/L (3.5-5.1); Sodium 139 mmol/L (137-145)
[2023-05-27 08:50] LABS: Basophils % (A) 0 %; Eosinophils % (A) 0 %; HCT 39.1 % (34.0-46.0); HGB 11.9 gm/dL (11.4-16.0); Hypochromasia Moderate; Lymphocytes # (A) 0.8 k/uL (1.0-4.8); Lymphocytes % (A) 4 %; MCH 31.2 pg (25.0-35.0); MCHC 30.5 g/dL (31.0-37.0); MCV 102.4 fL (80.0-100.0); Macrocytosis Slight; Mean Platelet Volume 8.3; Monocytes # (A) 0.4 k/uL (0-1.0); Monocytes % (A) 2 %; Neutrophils # (A) 17.2 k/uL (1.3-7.7); Neutrophils % (A) 93 %; Platelet Count 241 k/uL (150-450); RBC 3.82 m/uL (3.80-5.40); RDW 15.4 % (11.5-15.5); WBC 18.5 k/uL (3.8-10.6)
[2023-05-27] MEDS: PANTOPRAZOLE 40 MG TABLET PO SCH (09:14)
[2023-05-27] MEDS: ENOXAPARIN 40 MG/0.4 ML SYRINGE SQ SCH (09:14)
[2023-05-27] MEDS: ISOSORBIDE MONONITRATE ER 30 MG TAB.ER.24H PO SCH (09:15)
[2023-05-27] MEDS: AZITHROMYCIN 500 MG TAB PO SCH (09:15)
[2023-05-27] MEDS: ASCORBIC ACID 500 MG TAB PO SCH (09:15)
[2023-05-27] MEDS: CHOLECALCIFEROL 25 MCG (1000 IU) TABLET PO SCH (09:15)
[2023-05-27] MEDS: CALCIUM CARBONATE 500 MG CHEWABLE PO SCH (09:15)
[2023-05-27] MEDS: METOPROLOL SUCCINATE (ER) 100 MG TAB.ER.24H PO SCH (09:15)
[2023-05-27] MEDS: DAPAGLIFLOZIN PROPANEDIOL 5 MG TABLET PO SCH (09:15)
[2023-05-27] MEDS: ATORVASTATIN 80 MG TAB PO SCH (09:15)
[2023-05-27] MEDS: MAGNESIUM OXIDE 400 MG TAB PO SCH (09:19)
[2023-05-27 11:35] LABS: Glucose,Whole Blood 183 mg/dL (70-110)
[2023-05-27] MEDS: REMDESIVIR 200 MG in SODIUM CHLORIDE 0.9% 250 ML IVPB ONE (12:48)
--- NOTE | 2023-05-27 13:42 | P.CNPUL ---
History of Present Illness Consult date: 05/27/23 Reason for consult: dyspnea, pneumonia History of present illness: This is a 82-year-old female patient presented to the hospital because of wors ening shortness of breath and her symptoms started last week specifically around 05/22/2023. The patient and her were both sick. The patient came into the hospital and the patient was diagnosed having an acute COVID-19 infection and the presentation is typical of an acute COVID-19 pneumonia. The patient is currently on 6 L of O2 nasal cannula. She has received vaccination x 2 without any booster. She is known to have chronic bronchial asthma, coronary artery disease with previous stent and she is a lifetime non-smoker and she has history of hypertension hyperlipidemia. She has been followed up in our office regarding her asthma and she has been maintained on Symbicort as maintenance. Her symptoms are essentially related to cough which is essentially nonproductive and the patient generalized weakness and fatigue and congestion. Subsequently, the patient became progressively more short of breath and she came into the emergency room where she was found to be hypoxic. CT scan of the chest was done and showed no evidence of any pulm embolism and the patient had scattered b ilateral pulmonary airspace opacities throughout the lung stoll along with cardiomegaly. The patient has a white cell count of 18.5, hemoglobin 11.9 and a platelet count of 241. BUN is at 20 with a creatinine of 0.7 and sodium levels at 139. Procalcitonin level was also elevated at 3.27 with a LDH of 388. At this point in time, the patient is on a combination of Rocephin and Zithromax. The patient on IV Solu-Medrol. I discussed the case with infectious disease and opted to start the patient on remdesivir regarding her COVID-19 infection as the patient's presentation is more consistent with viral over bacterial pneumonia. Echocardiogram from 2022 showed normal LV function with an EF of around 55 to 60% and the patient had moderate-severe pulmonary artery pressure of 53. Review of Systems CONSTITUTIONAL: Denies any recent significant weight loss or weight gain. Admits generalized fatigue, malaise, and myalgias. Admits to chills. Denies fever. EYES: Denies change in vision. EARS, NOSE, MOUTH, THROAT: Denies headaches, denies sore throat. CARDIOVASCULAR: Denies chest pain, palpitations, syncope, lower extremity swelling RESPIRATORY: See HPI GASTROINTESTINAL: Denies change in appetite, abdominal pain, nausea and vomiting, or diarrhea GENITOURINARY: Denies hematuria, denies infections. MUSKULOSKELETAL: Denies pain, denies swelling. INTEGUMENTARY: Denies rash, denies eczema. NEUROLOGICAL: Denies recent memory loss, no recent seizure activity. PSYCHIATRIC: Denies anxiety, denies depression. HEMATOLOGIC/LYMPHATIC: Denies anemia, denies enlarged lymph node Past Medical History Past Medical History: Heart Failure, Hyperlipidemia, Hypertension, Mitral Valve Prolapse (MVP), Rheumatoid Arthritis (RA), Thyroid Disorder Additional Past Medical History / Comment(s): HAD A PNE VACCINE AFTER AGE 67 BUT NOT SURE OF DATE,OFFICE CLOSED AT TIME OF THIS ADMIT. Last Myocardial Infarction Date:: History of Any Multi-Drug Resistant Organisms: None Reported Past Surgical History: Section, Orthopedic Surgery Additional Past Surgical History / Comment(s): total right knee replacement Past Anesthesia/Blood Transfusion Reactions: No Reported Reaction Additional Past Anesthesia/Blood Transfusion Reaction / Comment(s): cl austerphobia Past Psychological History: No Psychological Hx Reported Smoking Status: Never smoker Past Alcohol Use History: Occasional Past Drug Use History: None Reported - Past Family History Father Additional Family Medical History / Comment(s): smoker-had problems related to that Mother Additional Family Medical History / Comment(s): smoker-problems related to that Medications and Allergies Home Medications Medication Instructions Recorded Confirmed Type Multivit-Min/FA/Lycopen/Lutein 1 tab PO DAILY 03/29/16 05/26/23 History [Centrum Silver Tablet] Omeprazole 20 mg PO DAILY 03/29/16 05/26/23 History Budesonide-Formot 160-4.5 Mcg 2 puff INHALATION RT-BID #1 inhaler 04/06/16 05/26/23 Rx [Symbicort 160-4.5 Mcg Inhaler] Alendronate Sodium [Fosamax] 70 mg PO MO 08/09/21 05/26/23 History Cholecalciferol [Vitamin D3 (25 50 mcg PO DAILY 08/09/21 05/26/23 History Mcg = 1000 Iu)] Levothyroxine Sodium [Synthroid] 112 mcg PO MOTUWETHFR 08/09/21 05/26/23 History Magnesium Oxide [Darden] 500 mg PO DAILY 08/09/21 05/26/23 History Montelukast [Singulair] 10 mg PO HS 08/09/21 05/26/23 History ALPRAZolam [Xanax] 0.25 mg PO Q8HR PRN 10/06/21 05/26/23 History modafiniL [Provigil] 200 mg PO DAILY PRN 10/06/21 05/26/23 History Isosorbide Mononitrate ER [Imdur] 30 mg PO DAILY 30 Days #30 tab 10/09/21 05/26/23 Rx Acetaminophen [Tylenol Arthritis] 650 mg PO Q8HR PRN 03/19/22 05/26/23 History Empagliflozin [Jardiance] 10 mg PO DAILY 03/19/22 05/26/23 History Levothyroxine Sodium [Synthroid] 56 mcg PO SUSA 03/19/22 05/26/23 History Metoprolol Succinate (ER) [Toprol 100 mg PO DAILY 03/19/22 05/26/23 History XL] Ascorbic Acid [Vitamin C] 1,000 mg PO DAILY 05/26/23 05/26/23 History Aspirin 81 mg PO AC-BRKFST 05/26/23 05/26/23 History Atorvastatin [Lipitor] 80 mg PO DAILY 05/26/23 05/26/23 History Calcium Carbonate [Calcium] 600 mg PO DAILY 05/26/23 05/26/23 History Furosemide [Lasix] 40 mg PO DAILY 05/26/23 05/26/23 History Verapamil HCl [Verapamil ER PM] 1 cap PO DAILY 05/26/23 05/26/23 History Zinc 200mg 200 mg PO DAILY 05/26/23 05/26/23 History Allergies Allergy/AdvReac Type Severity Reaction Status Date / Time clarithromycin [From Biaxin] Allergy Unknown Verified 05/26/23 11:52 gemifloxacin [From Factive] Allergy Unknown Verified 05/26/23 11:52 prednisone Allergy Unknown Verified 05/26/23 11:52 amoxicillin [From Augmentin] AdvReac Nausea & Verified 05/26/23 11:52 Vomiting & Diarrhea clavulanic acid AdvReac Nausea & Verified 05/26/23 11:52 [From Augmentin] Vomiting & Diarrhea Physical Exam Vitals: Vital Signs Temp Pulse Pulse Resp BP BP Pulse Ox 05/27/23 08:34 90 03/18/24 08:21 92 99 05/27/23 04:00 84 20 108/54 96 05/27/23 00:00 98.2 F 90 20 110/80 95 05/26/23 23:08 96 05/26/23 20:45 93 05/26/23 20:30 94 05/26/23 20:00 98.8 F 98 20 134/80 90 L 05/26/23 17:15 98.4 F 94 21 111/53 96 05/26/23 15:54 90 05/26/23 15:44 92 92 L 05/26/23 14:00 96 21 05/26/23 13:50 97.5 F L 96 21 107/50 94 L 05/26/23 13:20 98.2 F 97 20 112/57 94 L 05/26/23 11:38 99 05/26/23 11:30 93 25 H 109/58 98 05/26/23 11:21 90 05/26/23 11:00 89 34 H 120/57 Intake and Output 05/26/23 05/27/23 05/27/23 22:59 06:59 14:59 Intake Total 118 180 Output Total 1250 Balance 118 -1250 180 Intake: Oral 118 180 Output: Urine 1250 Other: Voiding Method External Catheter External Catheter Weight 62 kg 52 kg GENERAL EXAM: Alert, 82-year-old white female appearing stated age, comfortable in no apparent distress. Patient is currently on 6 days of O2 nasal cannula HEAD: Normocephalic and atraumatic EYES: Normal reaction of pupils, equal size. NOSE: Clear with pink turbinates. THROAT: No erythema or exudates. NECK: No masses, no JVD. CHEST: No chest wall deformity. LUNGS: Equal air entry with diffuse rhonchi and crackles. no conversational dyspnea or accessory muscle use while at rest CVS: S1 and S2 normal with grade 3 systolic murmur, regular rhythm. No other extra heart sounds ABDOMEN: No hepatosplenomegaly, active bowel sounds, no guarding or rigidity. SPINE: No scoliosis or deformity SKIN: No rashes CENTRAL NERVOUS SYSTEM: No focal deficits, tone is normal in all 4 extremities. EXTREMITIES: There is no peripheral edema, clubbing, or cyanosis. Peripheral pulses are intact. Results - Laboratory Findings CBC and BMP: 05/27/23 07:18 05/27/23 07:18 PT/INR, D-dimer PT 11.0 sec (10.0-12.5) 05/26/23 09:54 INR 1.0 (<1.2) 05/26/23 09:54 D-Dimer 1.04 mg/L FEU (<0.60) H 05/26/23 09:54 Abnormal lab findings: Abnormal Labs 05/26/23 05/26/23 05/26/23 09:54 09:54 09:54 WBC 24.4 H MCV 100.4 H MCHC 30.9 L RDW 15.7 H Neutrophils # 21.6 H Lymphocytes # D-Dimer 1.04 H BUN Glucose 111 H POC Glucose (mg/dL) Magnesium AST 41 H Urine Glucose (UA) SARS-CoV-2 (PCR) 05/26/23 05/26/23 05/26/23 11:24 16:36 20:54 WBC MCV MCHC RDW Neutrophils # Lymphocytes # D-Dimer BUN Glucose POC Glucose (mg/dL) 169 H 205 H Magnesium AST Urine Glucose (UA) 4+ H SARS-CoV-2 (PCR) 05/26/23 05/26/23 05/27/23 21:02 21:10 06:31 WBC MCV MCHC RDW Neutrophils # Lymphocytes # D-Dimer BUN Glucose POC Glucose (mg/dL) 142 H Magnesium 2.4 H AST Urine Glucose (UA) SARS-CoV-2 (PCR) Detected A 05/27/23 05/27/23 07:18 07:18 WBC 18.5 H MCV 102.4 H MCHC 30.5 L RDW Neutrophils # 17.2 H Lymphocytes # 0.8 L D-Dimer BUN 20 H Glucose 174 H POC Glucose (mg/dL) Magnesium AST Urine Glucose (UA) SARS-CoV-2 (PCR) - Diagnostic Findings Chest x-ray: image reviewed CT scan - chest: image reviewed Assessment and Plan Plan: Acute hypoxemic respiratory failure, currently on 6 L of O2 nasal cannula Acute COVID-19 related pneumonia with secondary hypoxic respiratory failure. Possibility of superinfection with bacteria is likely with an elevated procalcitonin level although the presentation is more consistent with a viral over bacterial infection. Chest CTA did show scattered airspace opacities throughout bilateral lungs, concerning for multifocal pneumonia. Cardiomegaly noted. There were also multiple enlarged lymph nodes seen throughout the mediastinum dating back to 2017, however, slightly larger on this exam and likely reactive. Acute exacerbation of chronic bronchial asthma, secondary to above Shortness of breath secondary to above Elevated procalcitonin level History of coronary artery disease with previous PCI/stent x3 History of hyperlipidemia History of hypertension Present LV function with normal ejection fraction. The patient has moderate to severe mitral calcification and moderate to severe mitral stenosis and mild aortic regurgitation and stenosis. LV function is preserved and the patient has an ejection fraction of 60 to 65%. RA History of hypothyroidism Lifelong non-smoker Plan Keep the patient on O2 and titrate oxygen flow to maintain saturation above 90% Continue IV Solu-Medrol start the patient on remdesivir per protocol Empiric antibiotic coverage with a combination of Rocephin and Zithromax IV Lasix Lovenox 40 mg subcu for DVT prophylaxis Monitor procalcitonin level LDH level is mildly elevated Repeat chest x-ray in the morning Resume home medications. Will continue to monitor the progress along with the rest of the consultants
[2023-05-27] MEDS: LEVOTHYROXINE 112 MCG TAB PO SCH (14:24)
[2023-05-27 16:18] LABS: Glucose,Whole Blood 171 mg/dL (70-110)
--- NOTE | 2023-05-27 17:33 | P.PN ---
Subjective Progress Note Date: 05/27/23 Principal diagnosis: Reason for follow-up is COVID-19 and pneumonia Patient is a 82-year-old female with a past medical history significant for hypertension hyperlipidemia rheumatoid arthritis mitral valve prolapse and heart failure with presenting to the hospital for evaluation of increasing shortness of breath., Patient COVID-19 PCR came back positive CT angiogram chest was negative for PE did shows scattered airspace opacity throughout the lungs concerning for pneumonia. On today's evaluation that is 05/27/2023, Patient is afebrile patient is currently on 2 L nasal cannula oxygen and mention breathing more comfortably today, the patient denies any chest pain or worsening cough and not bring up any sputum, the patient denies any nausea vomiting did not have any abdominal pain and no diarrhea Patient white count is down to 18.5 creatinine 0.74 procalcitonin 3.27, COVID test came back positive Objective - Vital Signs Vital signs: Vital Signs Temp 98.1 F 05/27/23 08:20 Pulse 86 05/27/23 11:44 Resp 19 05/27/23 08:20 BP 110/55 05/27/23 08:20 Pulse Ox 99 05/27/23 08:21 FiO2 Intake & Output 05/26/23 05/27/23 05/27/23 18:59 06:59 18:59 Intake Total 118 180 Output Total 1250 Balance 118 -1250 180 Weight 65.771 kg 62 kg 52 kg Intake: Oral 118 180 Output: Urine 1250 Other: Voiding Method External Catheter External Catheter External Catheter - Exam GENERAL DESCRIPTION: An elderly female lying in bed in no distress RESPIRATORY SYSTEM: Unlabored breathing , coarse breath sounds bilaterally HEART: S1 S2 regular rate and rhythm , ABDOMEN: Soft , no tenderness EXTREMITIES: No edema feet - Labs CBC & Chem 7: 05/27/23 07:18 05/27/23 07:18 Labs: Abnormal Lab Results - Last 24 Hours (Table) 05/26/23 05/26/23 05/26/23 Range/Units 16:36 20:54 21:02 WBC (3.8-10.6) k/uL MCV (80.0-100.0) fL MCHC (31.0-37.0) g/dL Neutrophils # (1.3-7.7) k/uL Lymphocytes # (1.0-4.8) k/uL BUN (7-17) mg/dL Glucose (74-99) mg/dL POC Glucose (mg/dL) 169 H 205 H (70-110) mg/dL Magnesium 2.4 H (1.6-2.3) mg/dL Lactate Dehydrogenase (120-246) U/L Procalcitonin (0.02-0.09) ng/mL SARS-CoV-2 (PCR) (Not Detectd) 05/26/23 05/27/23 05/27/23 Range/Units 21:10 06:31 07:18 WBC (3.8-10.6) k/uL MCV (80.0-100.0) fL MCHC (31.0-37.0) g/dL Neutrophils # (1.3-7.7) k/uL Lymphocytes # (1.0-4.8) k/uL BUN (7-17) mg/dL Glucose (74-99) mg/dL POC Glucose (mg/dL) 142 H (70-110) mg/dL Magnesium (1.6-2.3) mg/dL Lactate Dehydrogenase (120-246) U/L Procalcitonin 3.27 H (0.02-0.09) ng/mL SARS-CoV-2 (PCR) Detected A (Not Detectd) 05/27/23 05/27/23 05/27/23 Range/Units 07:18 07:18 07:18 WBC 18.5 H (3.8-10.6) k/uL MCV 102.4 H (80.0-100.0) fL MCHC 30.5 L (31.0-37.0) g/dL Neutrophils # 17.2 H (1.3-7.7) k/uL Lymphocytes # 0.8 L (1.0-4.8) k/uL BUN 20 H (7-17) mg/dL Glucose 174 H (74-99) mg/dL POC Glucose (mg/dL) (70-110) mg/dL Magnesium (1.6-2.3) mg/dL Lactate Dehydrogenase 388 H (120-246) U/L Procalcitonin (0.02-0.09) ng/mL SARS-CoV-2 (PCR) (Not Detectd) 05/27/23 Range/Units 11:34 WBC (3.8-10.6) k/uL MCV (80.0-100.0) fL MCHC (31.0-37.0) g/dL Neutrophils # (1.3-7.7) k/uL Lymphocytes # (1.0-4.8) k/uL BUN (7-17) mg/dL Glucose (74-99) mg/dL POC Glucose (mg/dL) 183 H (70-110) mg/dL Magnesium (1.6-2.3) mg/dL Lactate Dehydrogenase (120-246) U/L Procalcitonin (0.02-0.09) ng/mL SARS-CoV-2 (PCR) (Not Detectd) Assessment and Plan (1) COVID-19 Current Visit: Yes Status: Acute Code(s): U07.1 - COVID-19 SNOMED Code(s): 642118887 (2) Pneumonia Current Visit: Yes Status: Acute Code(s): J18.9 - PNEUMONIA, UNSPECIFIED ORGANISM SNOMED Code(s): 859472967 Plan: 1patient presented hospital with increasing shortness of breath which is likely multifactorial, the patient did have a COVID-19 collected evening of 05/26/2023 that came back positive last night patient also have elevated procalcitonin more likely combination of COVID-19 and possible component of secondary bacterial pneumonia 2patient has been started on remdesivir appropriately to continue along with steroids Lovenox and Rocephin, try to obtain a sputum to narrow down on antibiotics Dictation was produced using [email or web address] dictation software. please excuse any grammatical, word or spelling errors. Time with Patient: Less than 30
[2023-05-27 20:06] LABS: Glucose,Whole Blood 234 mg/dL (70-110)
[2023-05-27] MEDS ORDERED: DEXTROSE 50% SYRINGE 50 ML IVP PRN ×2 (20:27)
[2023-05-27] MEDS: INSULIN ASPART (NovoLOG) 100 UNIT/ML VIAL SQ SCH (20:43)
[2023-05-28 06:00] LABS: Glucose,Whole Blood 185 mg/dL (70-110)
[2023-05-28] MEDS: LEVOTHYROXINE 112 MCG TAB PO SCH (06:29)
--- NOTE | 2023-05-28 08:53 | XR ---
EXAMINATION TYPE: XR chest 1V DATE OF EXAM: 05/28/2023 6:32 AM CLINICAL INDICATION:Female, 82 years old with history of Pneumonia; COMPARISON: Chest radiograph from one day prior. TECHNIQUE: XR chest 1V Frontal view of the chest. FINDINGS: Lungs/Pleura: Similar multifocal reticular and hazy opacities throughout the lungs. There is no evide nce of pleural effusion, focal consolidation, or pneumothorax. Pulmonary vascularity: Pulmonary vascular congestion. Heart/mediastinum: Cardiomediastinal silhouette is enlarged and stable. Musculoskeletal: No acute osseous pathology. IMPRESSION: Multifocal reticular and hazy opacities not significantly changed given differences in technique. Fin dings could represent pulmonary vascular congestion with superimposed infection not excluded given po sitive covid test.
[2023-05-28] MEDS: ALBUTEROL HFA INHALER INHALATION SCH (09:09)
[2023-05-28 10:21] LABS: Basophils % (A) 0 %; Eosinophils % (A) 0 %; HGB 11.5 gm/dL (11.4-16.0); Hypochromasia Moderate; Lymphocytes # (A) 0.7 k/uL (1.0-4.8); Lymphocytes % (A) 3 %; MCH 31.1 pg (25.0-35.0); MCHC 30.4 g/dL (31.0-37.0); MCV 102.4 fL (80.0-100.0); Macrocytosis Slight; Mean Platelet Volume 7.8; Monocytes # (A) 0.8 k/uL (0-1.0); Monocytes % (A) 3 %; Neutrophils # (A) 21.1 k/uL (1.3-7.7); Neutrophils % (A) 93 %; Platelet Count 303 k/uL (150-450); RBC 3.71 m/uL (3.80-5.40); RDW 15.4 % (11.5-15.5); WBC 22.7 k/uL (3.8-10.6)
[2023-05-28 10:35] LABS: African American GFR (CKD) 86 (>60 ml/min/1.73 sqM); Anion Gap 11 mmol/L; Blood Urea Nitrogen 26 mg/dL (7-17); Calcium 8.2 mg/dL (8.4-10.2); Carbon Dioxide 27 mmol/L (22-30); Chloride 104 mmol/L (98-107); Glucose 180 mg/dL (74-99); Non-African American GFR(CKD) 75 (>60 ml/min/1.73 sqM); Potassium 3.9 mmol/L (3.5-5.1); Sodium 142 mmol/L (137-145)
--- NOTE | 2023-05-28 11:04 | P.PN ---
Subjective Progress Note Date: 05/28/23 This is a 82-year-old female patient presented to the hospital because of worsening shortness of breath and her symptoms started last week specifically around 05/22/2023. The patient and her were both sick. The patient came into the hospital and the patient was diagnosed having an acute COVID-19 infection and the presentation is typical of an acute COVID-19 pneumonia. The patient is currently on 6 L of O2 nasal cannula. She has received vaccination x 2 without any booster. She is known to have chronic bronchial asthma, coronary artery disease with previous stent and she is a lifetime non-smoker and she has history of hypertension hyperlipidemia. She has been followed up in our office regarding her asthma and she has been maintained on Symbicort as maintenance. Her symptoms are essentially related to cough which is essentially nonproductive and the patient generalized weakness and fatigue and congestion. Subsequently, the patient became progressively more short of breath and she came into the emergency room where she was found to be hypoxic. CT scan of the chest was done and showed no evidence of any pulm embolism and the patient had scattered bilateral pulmonary airspace opacities throughout the lung stoll along with cardiomegaly. The patient has a white cell count of 18.5, hemoglobin 11.9 and a platelet count of 241. BUN is at 20 with a creatinine of 0.7 and sodium levels at 139. Procalcitonin level was also elevated at 3.27 with a LDH of 388. At this point in time, the patient is on a combination of Rocephin and Zithromax. The patient on IV Solu-Medrol. I discussed the case with infectious disease and opted to start the patient on remdesivir regarding her COVID-19 infection as the patient's presentation is more consistent with viral over bacterial pneumonia. Echocardiogram from 2022 showed normal LV function with an EF of around 55 to 60% and the patient had moderate-severe pulmonary artery pressure of 53. On today's evaluation of 05/28/2023, the patient is being seen for a follow-up. The patient is feeling well. She gets short of breath with mobility and activity. No significant dyspnea at rest. Oxygenation is improved and the patient has been weaned down from 6 L down to 2 L of oxygen by nasal cannula. Noted the patient is currently on Solu-Medrol and remdesivir regarding COVID-19 related pneumonia. Her procalcitonin level was elevated at 3.27. Based on that, the patient was also covered with a combination of Rocephin and Zithromax. Remains on IV Solu-Medrol 60 mg every 6 hours. No new complaints. Sodium is at 142 with a potassium level of 3.9, BUN is at 26 with a creatinine of 0.7 and the patient CBC shows a WBC count 22.7 with a hemoglobin 11.5 and a platelet count of 303. She has neutrophilia. No significant lymphocytosis. Coagulation profile was normal with a D-dimer of 1.04 at the time of admission. She remains on Symbicort. She remains on lateral HFA [id number]. Repeat chest x-ray shows still bilateral pulm infiltrates although slightly improved compared to yesterday. Objective - Vital Signs Vital signs: Vital Signs Temp 97.6 F 05/28/23 08:09 Pulse 89 05/28/23 08:09 Resp 20 05/28/23 08:09 BP 117/56 05/28/23 08:09 Pulse Ox 97 05/28/23 08:09 FiO2 Intake & Output 05/27/23 05/28/23 05/28/23 18:59 06:59 18:59 Intake Total 950 500 Output Total 900 Balance 950 -400 Weight 52 kg 53 kg Intake: Intake, IV Titration 250 Amount Remdesivir 100 mg In 200 Sodium Chloride 0.9% 250 ml @ 250 mls/hr IVPB DAILY@1100 [facility] Rx#: [id number] cefTRIAXone 2 gm In 50 Sodium Chloride 0.9% 50 ml @ 100 mls/hr IVPB Q24HR [facility] Rx#:[id number] Oral 700 500 Output: Urine 900 Other: Voiding Method External Catheter Toilet External Catheter # Bowel Movements 1 - Exam GENERAL EXAM: Alert, 82-year-old white female appearing stated age, comfortable in no apparent distress. Patient is currently on 2 days of O2 nasal cannula HEAD: Normocephalic and atraumatic EYES: Normal reaction of pupils, equal size. NOSE: Clear with pink turbinates. THROAT: No erythema or exudates. NECK: No masses, no JVD. CHEST: No chest wall deformity. LUNGS: Equal air entry with diffuse rhonchi and crackles. no conversational dyspnea or accessory muscle use while at rest CVS: S1 and S2 normal with grade 3 systolic murmur, regular rhythm. No other extra heart sounds ABDOMEN: No hepatosplenomegaly, active bowel sounds, no guarding or rigidity. SPINE: No scoliosis or deformity SKIN: No rashes CENTRAL NERVOUS SYSTEM: No focal deficits, tone is normal in all 4 extremities. EXTREMITIES: There is no peripheral edema, clubbing, or cyanosis. Peripheral pulses are intact. - Labs CBC & Chem 7: 05/28/23 09:24 05/28/23 09:24 Labs: Abnormal Lab Results - Last 24 Hours (Table) 05/27/23 05/27/23 05/27/23 Range/Units 07:18 07:18 11:34 POC Glucose (mg/dL) 183 H (70-110) mg/dL Lactate Dehydrogenase 388 H (120-246) U/L Procalcitonin 3.27 H (0.02-0.09) ng/mL 05/27/23 05/27/23 05/28/23 Range/Units 16:17 20:04 05:59 POC Glucose (mg/dL) 171 H 234 H 185 H (70-110) mg/dL Lactate Dehydrogenase (120-246) U/L Procalcitonin (0.02-0.09) ng/mL Microbiology - Last 24 Hours (Table) 05/26/23 11:15 Blood Culture - Preliminary Blood 05/26/23 11:24 Blood Culture - Preliminary Blood Assessment and Plan Plan: Acute hypoxemic respiratory failure, currently on 2 L of O2 nasal cannula Acute COVID-19 related pneumonia with secondary hypoxic respiratory failure. Possibility of superinfection with bacteria is likely with an elevated procalcitonin level although the presentation is more consistent with a viral over bacterial infection. Chest CTA did show scattered airspace opacities throughout bilateral lungs, concerning for multifocal pneumonia. Cardiomegaly noted. There were also multiple enlarged lymph nodes seen throughout the mediastinum dating back to 2017, however, slightly larger on this exam and likely reactive. Acute exacerbation of chronic bronchial asthma, secondary to above Shortness of breath secondary to above Elevated procalcitonin level History of coronary artery disease with previous PCI/stent x3 History of hyperlipidemia History of hypertension Present LV function with normal ejection fraction. The patient has moderate to severe mitral calcification and moderate to severe mitral stenosis and mild aortic regurgitation and stenosis. LV function is preserved and the patient has an ejection fraction of 60 to 65%. RA History of hypothyroidism Lifelong non-smoker Plan Keep the patient on O2 and titrate oxygen flow to maintain saturation above 90%, currently improved and she is down to 2 L of oxygen by nasal cannula Continue IV Solu-Medrol Continue remdesivir per protocol Empiric antibiotic coverage with a combination of Rocephin Monitor procalcitonin level IV Lasix Lovenox 40 mg subcu for DVT prophylaxis LDH level is mildly elevated Repeat chest x-ray in the morning Resume home medications. Will continue to monitor the progress along with the rest of the consultants
[2023-05-28 11:32] LABS: Glucose,Whole Blood 153 mg/dL (70-110)
--- NOTE | 2023-05-28 11:39 | CA ---
Transthoracic Echo Report Name: Juan Francisco Grande Age: 82 Gender: F : 1940 Exam Date: 05/27/2023 14:24 Exam Location: [facility] Ht (in): Wt (lb): Ordering Physician: Marc Pimentel MD Attending/Referring Phys: [id number], Margarito [employer]ker Jennifer Nicole RDCS Procedure CPT: Indications: chf exacerbation Cardiac Hx: Technical Quality: Fair Contrast 1: Total Dose (mL): Contrast 2: Total Dose (mL): MEASUREMENTS (Male / Female) Normal Values 2D ECHO LV Diastolic Diameter PLAX 4.1 cm 4.2 - 5.9 / 3.9 - 5.3 cm LV Systolic Diameter PLAX 2.7 cm IVS Diastolic Thickness 1.1 cm 0.6 - 1.0 / 0.6 - 0.9 cm LVPW Diastolic Thickness 1.0 cm 0.6 - 1.0 / 0.6 - 0.9 cm LV Relative Wall Thickness 0.5 RV Internal Dim ED PLAX 2.9 cm LVOT Diameter 2.1 cm LA Systolic Diameter LX 4.4 cm 3.0 - 4.0 / 2.7 - 3.8 cm LV Diastolic Volume MOD BP 43.6 cm??? 67 - 155 / 56 - 104 cm??? LV Systolic Volume MOD BP 13.0 cm??? 22 - 58 / 19 - 49 cm??? LV Ejection Fraction MOD BP 70.3 % >= 55 % LV Diastolic Volume MOD 4C 38.9 cm??? LV Systolic Volume MOD 4C 11.0 cm??? LV Ejection Fraction MOD 4C 71.7 % LV Diastolic Length 4C 5.8 cm LV Systolic Length 4C 4.5 cm LV Diastolic Volume MOD 2C 49.7 cm??? LV Systolic Volume MOD 2C 15.2 cm??? LV Ejection Fraction MOD 2C 69.4 % LV Diastolic Length 2C 5.9 cm LV Systolic Length 2C 4.9 cm LA Volume 57.9 cm??? 18 - 58 / 22 - 52 cm??? DOPPLER AV Peak Velocity 259.1 cm/s AV Peak Gradient 26.9 mmHg AV Mean Velocity 178.3 cm/s AV Mean Gradient 14.3 mmHg AV Velocity Time Integral 51.6 cm AI Peak Velocity 369.2 cm/s AI Peak Gradient 54.5 mmHg AI Pressure Half Time 436.1 ms LVOT Peak Velocity 124.2 cm/s LVOT Peak Gradient 6.2 mmHg AV Area Cont Eq pk 1.6 cm??? MV Peak Velocity 289.8 cm/s MV Peak Gradient 33.6 mmHg MV Mean Velocity 219.9 cm/s MV Mean Gradient 21.0 mmHg MV Velocity Time Integral 87.4 cm MV Area PHT 1.4 cm??? MR Peak Velocity 416.2 cm/s MR Peak Gradient 69.3 mmHg TR Peak Velocity 364.9 cm/s TR Peak Gradient 53.3 mmHg Right Ventricular Systolic Press 57.9 mmHg FINDINGS Left Ventricle Left ventricular ejection fraction is estimated at 60-65 %. Left ventricular cavity size normal. Mildly increased septal wall thickness. Mildly increased posterior wall thickness. Right Ventricle Normal right ventricular size. Severe pulmonary hypertension. Right ventricular systolic pressure estimated at 58 mm hg. Right Atrium Right atrium not well visualized. Left Atrium Severe left atrial dilatation Mitral Valve Moderate thickening/calcification of the anterior mitral valve leaflet. Moderate thickening/calcification of the posterior mitral valve leaflet. Moderate mitral annular calcification. Mean gradient of 21 mmhg at heart rate 101 bpm which can falsely elevate gradients. Mitral valve area by pressure half time is 1.4 cm which puts it at severe stenosis range Aortic Valve Trileaflet aortic valve. Aortic valve sclerosis. Mild aortic stenosis with a peak gradient of 27 mmHg and a mean gradient of 14 mmHg. Mild aortic regurgitation. Tricuspid Valve Structurally normal tricuspid valve. [id number] tricuspid regurgitation. Pulmonic Valve Structurally normal pulmonic valve. Trace pulmonic regurgitation. Pericardium No pericardial effusion. Aorta Normal size aortic root and proximal ascending aorta. CONCLUSIONS Left ventricular ejection fraction is estimated at 60-65 %. Mild concentric LVH Severe pulmonary hypertension with RVSP estimated at 58 mmHg, Severe left atrial dilatation Polyvalvular calcification Suspect severe mitral stenosis with area 1.4 cm??? by PHT Mild aortic stenosis and aortic regurgitation Previewed by: Dr Toni Hong (Electronically Signed) Final Date: 28 May 2023 11:38
[2023-05-28] MEDS: REMDESIVIR 100 MG in SODIUM CHLORIDE 0.9% 250 ML IVPB SCH (12:45)
--- NOTE | 2023-05-28 14:54 | P.PN ---
Subjective Progress Note Date: 05/28/23 Principal diagnosis: Reason for follow-up is COVID-19 and pneumonia Patient is a 82-year-old female with a past medical history significant for hypertension hyperlipidemia rheumatoid arthritis mitral valve prolapse and heart failure with presenting to the hospital for evaluation of increasing shortness of breath., Patient COVID-19 PCR came back positive CT angiogram chest was negative for PE did shows scattered airspace opacity throughout the lungs concerning for pneumonia. On today's evaluation that is 05/28/2023, patient has been afebrile, patient is breathing comfortably today, patient is currently on 2 L nasal cannula oxygen, patient coughing decreased intensity with occasional sputum no chest pain no nausea vomiting no abdominal pain or diarrhea. Patient white count is 22.7, creatinine 0.76 blood cultures pending sputum cultures pending Objective - Vital Signs Vital signs: Vital Signs Temp 97.9 F 05/28/23 11:50 Pulse 84 05/28/23 11:50 Resp 18 05/28/23 11:50 BP 111/62 05/28/23 11:50 Pulse Ox 98 05/28/23 11:50 FiO2 Intake & Output 05/27/23 05/28/23 05/28/23 18:59 06:59 18:59 Intake Total 950 500 50 Output Total 900 Balance 950 -400 50 Weight 52 kg 53 kg Intake: Intake, IV Titration 250 50 Amount Remdesivir 100 mg In 200 Sodium Chloride 0.9% 250 ml @ 250 mls/hr IVPB DAILY@1100 [facility] Rx#: [id number] cefTRIAXone 2 gm In 50 50 Sodium Chloride 0.9% 50 ml @ 100 mls/hr IVPB Q24HR [facility] Rx#:[id number] Oral 700 500 Output: Urine 900 Other: Voiding Method External Catheter Toilet External Catheter # Bowel Movements 1 - Exam GENERAL DESCRIPTION: An elderly female lying in bed in no distress RESPIRATORY SYSTEM: Unlabored breathing , coarse breath sounds bilaterally HEART: S1 S2 regular rate and rhythm , ABDOMEN: Soft , no tenderness EXTREMITIES: No edema feet - Labs CBC & Chem 7: 05/28/23 09:24 05/28/23 09:24 Labs: Abnormal Lab Results - Last 24 Hours (Table) 05/27/23 05/27/23 05/28/23 Range/Units 16:17 20:04 05:59 WBC (3.8-10.6) k/uL RBC (3.80-5.40) m/uL MCV (80.0-100.0) fL MCHC (31.0-37.0) g/dL Neutrophils # (1.3-7.7) k/uL Lymphocytes # (1.0-4.8) k/uL BUN (7-17) mg/dL Glucose (74-99) mg/dL POC Glucose (mg/dL) 171 H 234 H 185 H (70-110) mg/dL Calcium (8.4-10.2) mg/dL 05/28/23 05/28/23 05/28/23 Range/Units 09:24 09:24 11:30 WBC 22.7 H (3.8-10.6) k/uL RBC 3.71 L (3.80-5.40) m/uL MCV 102.4 H (80.0-100.0) fL MCHC 30.4 L (31.0-37.0) g/dL Neutrophils # 21.1 H (1.3-7.7) k/uL Lymphocytes # 0.7 L (1.0-4.8) k/uL BUN 26 H (7-17) mg/dL Glucose 180 H (74-99) mg/dL POC Glucose (mg/dL) 153 H (70-110) mg/dL Calcium 8.2 L (8.4-10.2) mg/dL Microbiology - Last 24 Hours (Table) 05/26/23 11:15 Blood Culture - Preliminary Blood 05/26/23 11:24 Blood Culture - Preliminary Blood Assessment and Plan (1) COVID-19 Current Visit: Yes Status: Acute Code(s): U07.1 - COVID-19 SNOMED Code(s): 192654062 (2) Pneumonia Current Visit: Yes Status: Acute Code(s): J18.9 - PNEUMONIA, UNSPECIFIED ORGANISM SNOMED Code(s): 094386150 Plan: 1patient presented hospital with increasing shortness of breath which is likely multifactorial, the patient did have a COVID-19 collected evening of 05/26/2023 that came back positive last night patient also have elevated procalcitonin more likely combination of COVID-19 and possible component of secondary bacterial pneumonia 2patient did have some positive improvement and will continue with the remdesivir, along with steroids Lovenox and Rocephin, will follow-up on the sputum cultures 3worsening leukocytosis more likely steroid related and will monitor closely Dictation was produced using [employer] dictation software. please excuse any grammatical, word or spelling errors. Time with Patient: Less than 30
[2023-05-28 16:28] LABS: Glucose,Whole Blood 168 mg/dL (70-110)
[2023-05-28 20:15] LABS: Glucose,Whole Blood 215 mg/dL (70-110)
[2023-05-29 06:11] LABS: Glucose,Whole Blood 149 mg/dL (70-110)
--- NOTE | 2023-05-29 08:41 | XR ---
EXAMINATION TYPE: XR chest 1V DATE OF EXAM: 05/29/2023 6:53 AM CLINICAL INDICATION:Female, 82 years old with history of Pneumonia follow-up; COMPARISON: Chest radiographs from 05/28/2023 TECHNIQUE: XR chest 1V Frontal view of the chest. FINDINGS: Lungs/Pleura: Improved aeration of lungs on today's exam there is anything upper lobe airspace opacit ies present in right lower lobe airspace opacities. There is no evidence of pleural effusion, focal c onsolidation, or pneumothorax. Pulmonary vascularity: Unremarkable. Heart/mediastinum: Cardiomediastinal silhouette is enlarged and stable. Musculoskeletal: No acute osseous pathology. IMPRESSION: Improved aeration of the lungs with persistent multifocal airspace opacities.
[2023-05-29 09:54] LABS: African American GFR (CKD) >90 (>60 ml/min/1.73 sqM); Anion Gap 11 mmol/L; Blood Urea Nitrogen 30 mg/dL (7-17); Calcium 8.4 mg/dL (8.4-10.2); Carbon Dioxide 29 mmol/L (22-30); Chloride 100 mmol/L (98-107); Glucose 277 mg/dL (74-99); Non-African American GFR(CKD) 82 (>60 ml/min/1.73 sqM); Potassium 3.6 mmol/L (3.5-5.1); Sodium 140 mmol/L (137-145)
[2023-05-29 10:44] LABS: Basophils % (A) 0 %; Eosinophils % (A) 0 %; HCT 38.8 % (34.0-46.0); HGB 11.9 gm/dL (11.4-16.0); Hypochromasia Marked; Lymphocytes # (A) 0.6 k/uL (1.0-4.8); Lymphocytes % (A) 4 %; MCH 31.4 pg (25.0-35.0); MCHC 30.6 g/dL (31.0-37.0); MCV 102.7 fL (80.0-100.0); Macrocytosis Slight; Mean Platelet Volume 8.4; Monocytes # (A) 0.4 k/uL (0-1.0); Monocytes % (A) 2 %; Neutrophils # (A) 14.3 k/uL (1.3-7.7); Neutrophils % (A) 93 %; Platelet Count 264 k/uL (150-450); RBC 3.78 m/uL (3.80-5.40); RDW 15.4 % (11.5-15.5); WBC 15.3 k/uL (3.8-10.6)
[2023-05-29 11:21] LABS: Glucose,Whole Blood 193 mg/dL (70-110)
--- NOTE | 2023-05-29 11:51 | P.PN ---
Subjective Progress Note Date: 05/29/23 This is a 82-year-old female patient presented to the hospital because of worsening shortness of breath and her symptoms started last week specifically around 05/22/2023. The patient and her were both sick. The patient came into the hospital and the patient was diagnosed having an acute COVID-19 infection and the presentation is typical of an acute COVID-19 pneumonia. The patient is currently on 6 L of O2 nasal cannula. She has received vaccination x 2 without any booster. She is known to have chronic bronchial asthma, coronary artery disease with previous stent and she is a lifetime non-smoker and she has history of hypertension hyperlipidemia. She has been followed up in our office regarding her asthma and she has been maintained on Symbicort as maintenance. Her symptoms are essentially related to cough which is essentially nonproductive and the patient generalized weakness and fatigue and congestion. Subsequently, the patient became progressively more short of breath and she came into the emergency room where she was found to be hypoxic. CT scan of the chest was done and showed no evidence of any pulm embolism and the patient had scattered bilateral pulmonary airspace opacities throughout the lung stoll along with cardiomegaly. The patient has a white cell count of 18.5, hemoglobin 11.9 and a platelet count of 241. BUN is at 20 with a creatinine of 0.7 and sodium levels at 139. Procalcitonin level was also elevated at 3.27 with a LDH of 388. At this point in time, the patient is on a combination of Rocephin and Zithromax. The patient on IV Solu-Medrol. I discussed the case with infectious disease and opted to start the patient on remdesivir regarding her COVID-19 infection as the patient's presentation is more consistent with viral over bacterial pneumonia. Echocardiogram from 2022 showed normal LV function with an EF of around 55 to 60% and the patient had moderate-severe pulmonary artery pressure of 53. On today's evaluation of 05/28/2023, the patient is being seen for a follow-up. The patient is feeling well. She gets short of breath with mobility and activity. No significant dyspnea at rest. Oxygenation is improved and the patient has been weaned down from 6 L down to 2 L of oxygen by nasal cannula. Noted the patient is currently on Solu-Medrol and remdesivir regarding COVID-19 related pneumonia. Her procalcitonin level was elevated at 3.27. Based on that, the patient was also covered with a combination of Rocephin and Zithromax. Remains on IV Solu-Medrol 60 mg every 6 hours. No new complaints. Sodium is at 142 with a potassium level of 3.9, BUN is at 26 with a creatinine of 0.7 and the patient CBC shows a WBC count 22.7 with a hemoglobin 11.5 and a platelet count of 303. She has neutrophilia. No significant lymphocytosis. Coagulation profile was normal with a D-dimer of 1.04 at the time of admission. She remains on Symbicort. She remains on lateral HFA [id number]. Repeat chest x-ray shows still bilateral pulm infiltrates although slightly improved compared to yesterday. On today's evaluation of 05/29/2023, the patient is being seen for a follow-up. The patient is feeling better. She continues to have some persistent cough. Nevertheless, the repeat chest x-ray was done this morning shows improvement in the aeration of the lungs and there is some persistent multifocal pulmonary opacities. The patient remains on IV Solu-Medrol. The patient remains on remdesivir per protocol. The patient is also covered with Rocephin as a broad- spectrum antibiotic coverage. Repeat procalcitonin level from today is pending. Remains on Lovenox for DVT prophylaxis at 40 mg subcu on a daily basis. The white cell count is at 15.3 with a hemoglobin 11.9, BUN is at 30 with a catheter of 0.7 and sodium levels of 140. No other significant issues otherwise for now. She feels that she is gradually improving. Objective - Vital Signs Vital signs: Vital Signs Temp 98.1 F 05/29/23 04:00 Pulse 78 05/29/23 04:00 Resp 19 05/29/23 04:00 BP 120/62 05/29/23 04:00 Pulse Ox 99 05/29/23 08:21 FiO2 Intake & Output 05/28/23 05/29/23 05/29/23 18:59 06:59 18:59 Intake Total 650 720 Output Total 500 Balance 650 220 Weight 52.9 kg Intake: Intake, IV Titration 50 Amount cefTRIAXone 2 gm In 50 Sodium Chloride 0.9% 50 ml @ 100 mls/hr IVPB Q24HR [facility] Rx#:[id number] Oral 600 720 Output: Urine 500 Other: Voiding Method Toilet External Catheter - Exam GENERAL EXAM: Alert, 82-year-old white female appearing stated age, comfortable in no apparent distress. Patient is currently on 2 days of O2 nasal cannula HEAD: Normocephalic and atraumatic EYES: Normal reaction of pupils, equal size. NOSE: Clear with pink turbinates. THROAT: No erythema or exudates. NECK: No masses, no JVD. CHEST: No chest wall deformity. LUNGS: Equal air entry with diffuse rhonchi and crackles. no conversational dyspnea or accessory muscle use while at rest CVS: S1 and S2 normal with grade 3 systolic murmur, regular rhythm. No other extra heart sounds ABDOMEN: No hepatosplenomegaly, active bowel sounds, no guarding or rigidity. SPINE: No scoliosis or deformity SKIN: No rashes CENTRAL NERVOUS SYSTEM: No focal deficits, tone is normal in all 4 extremities. EXTREMITIES: There is no peripheral edema, clubbing, or cyanosis. Peripheral pulses are intact. - Labs CBC & Chem 7: 05/29/23 09:16 05/29/23 09:16 Labs: Abnormal Lab Results - Last 24 Hours (Table) 05/28/23 05/28/23 05/28/23 Range/Units 09:24 09:24 09:24 WBC 22.7 H (3.8-10.6) k/uL RBC 3.71 L (3.80-5.40) m/uL MCV 102.4 H (80.0-100.0) fL MCHC 30.4 L (31.0-37.0) g/dL Neutrophils # 21.1 H (1.3-7.7) k/uL Lymphocytes # 0.7 L (1.0-4.8) k/uL BUN 26 H (7-17) mg/dL Glucose 180 H (74-99) mg/dL POC Glucose (mg/dL) (70-110) mg/dL Hemoglobin A1c 6.2 H (<=6.0) % Calcium 8.2 L (8.4-10.2) mg/dL 05/28/23 05/28/23 05/28/23 Range/Units 11:30 16:27 20:13 WBC (3.8-10.6) k/uL RBC (3.80-5.40) m/uL MCV (80.0-100.0) fL MCHC (31.0-37.0) g/dL Neutrophils # (1.3-7.7) k/uL Lymphocytes # (1.0-4.8) k/uL BUN (7-17) mg/dL Glucose (74-99) mg/dL POC Glucose (mg/dL) 153 H 168 H 215 H (70-110) mg/dL Hemoglobin A1c (<=6.0) % Calcium (8.4-10.2) mg/dL 05/29/23 Range/Units 06:07 WBC (3.8-10.6) k/uL RBC (3.80-5.40) m/uL MCV (80.0-100.0) fL MCHC (31.0-37.0) g/dL Neutrophils # (1.3-7.7) k/uL Lymphocytes # (1.0-4.8) k/uL BUN (7-17) mg/dL Glucose (74-99) mg/dL POC Glucose (mg/dL) 149 H (70-110) mg/dL Hemoglobin A1c (<=6.0) % Calcium (8.4-10.2) mg/dL Microbiology - Last 24 Hours (Table) 05/26/23 11:15 Blood Culture - Preliminary Blood 05/26/23 11:24 Blood Culture - Preliminary Blood Assessment and Plan Plan: Acute hypoxemic respiratory failure, currently on 2 L of O2 nasal cannula, oxygenation is gradually improving Acute COVID-19 related pneumonia with secondary hypoxic respiratory failure. Possibility of superinfection with bacteria is likely with an elevated procalcitonin level although the presentation is more consistent with a viral over bacterial infection. Chest CTA did show scattered airspace opacities throughout bilateral lungs, concerning for multifocal pneumonia. Repeat chest x-ray from yesterday and today shows improvement in the aeration and pulmonary infiltrates although the patient continues to have bilateral persistent pulmonary infiltration and she has not completely recovered. She remains on Rocephin, IV Solu-Medrol and remdesivir. Acute exacerbation of chronic bronchial asthma, secondary to above, improving Shortness of breath secondary to above, improving Elevated procalcitonin level History of coronary artery disease with previous PCI/stent x3 History of hyperlipidemia History of hypertension Present LV function with normal ejection fraction. The patient has moderate to severe mitral calcification and moderate to severe mitral stenosis and mild aortic regurgitation and stenosis. LV function is preserved and the patient has an ejection fraction of 60 to 65%. RA History of hypothyroidism Lifelong non-smoker Plan Will continue same treatment for now as the patient continues to improve Chest x-ray shows improvement in aeration. There is some persistent filtration bilaterally Keep the patient on O2 and titrate oxygen flow to maintain saturation above 90%, currently improved and she is down to 2 L of oxygen by nasal cannula Continue IV Solu-Medrol Continue remdesivir per protocol Empiric antibiotic coverage with a combination of Rocephin Monitor procalcitonin level, repeat procalcitonin level from today still pending IV Lasix Lovenox 40 mg subcu for DVT prophylaxis LDH level is mildly elevated Resume home medications. Will continue to monitor the progress along with the rest of the consultants
--- NOTE | 2023-05-29 12:21 | P.PN ---
Subjective Progress Note Date: 05/27/23 82-year-old female who has a past medical history significant for hypertension, hyperlipidemia, hypothyroidism, coronary artery disease and has had a stent placed, she also is a diabetic and she also has aortic stenosis. Patient comes in today stating that she started having difficulty breathing this morning at about 7:00 she stated that it came on rather quickly. Patient states she felt relatively well yesterday. Patient states initially she had chest pressure that is let up quite a bit at this point in time. Patient denies any fever chills or cough or patient Nuys abdominal pain patient has nausea vomiting diarrhea. Patient Nuys any history of congestive heart failure. Patient denies any h istory of COPD. Patient states she never smoked. Patient denies any headache patient denies lightheadedness or dizziness. Patient's main complaint now is that she is having significant dyspnea. Patient was put on nonrebreather because when EMS arrived to the house she was oxygenating in high 60s the patient was 87% on arrival to the emergency department and once we got her settled in on a nonrebreather she was 90% Blood work completed in ED reveals a WBC of 24.4, hemoglobin of 12.8 and plate let count of 300, D-dimer elevated at 1.04, sodium 142, potassium 4.2, BUN/creatinine of 15/0.73, AST mildly elevated at 41 BNP of 875, UA is unremarkable Chest x-ray reveals multifocal airspace opacities CTA chest is negative for PE reveals scattered airspace opacities; throughout the lungs with cardiomegaly consistent with multifocal pneumonia with superimposed CHF multiple enlarged lymph nodes are seen throughout the mediastinum; which are slightly larger than previous exams in 2017; given p ossible infectious process, enlarged lymph nodes could be reactive 05/27/2023 Patient is sitting in the chair. Awake alert and oriented x 3. No complaints of chest pain. Still having shortness of breath and exertional dyspnea. Requiring oxygen at 6 L high flow this morning. Patient has been afebrile. No nausea or vomiting. Tolerating oral diet. Laboratory data showed WBC 18.4 hemoglobin 11.9 and platelets 241 LDH 388 and procalcitonin level is 3.27. Patient is being continued on antibiotics for pneumonia and continue with droplet and contact precautions. Current medications reviewed. Objective - Vital Signs Vital signs: Vital Signs Temp 98.1 F 05/27/23 08:20 Pulse 90 05/27/23 08:34 Resp 19 05/27/23 08:20 BP 110/55 05/27/23 08:20 Pulse Ox 99 05/27/23 08:21 FiO2 Intake & Output 05/26/23 05/27/23 05/27/23 18:59 06:59 18:59 Intake Total 118 180 Output Total 1250 Balance 118 -1250 180 Weight 65.771 kg 62 kg 52 kg Intake: Oral 118 180 Output: Urine 1250 Other: Voiding Method External Catheter External Catheter External Catheter - Exam PHYSICAL EXAMINATION: Patient is lying in the bed comfortably, no acute distress, awake alert and oriented.. HEENT: Normocephalic. Neck is supple. Pupils reactive. Nostrils clear. Oral cavity is moist. Neck reveals no JVD, carotid bruits, or thyromegaly. CHEST EXAMINATION: Trachea is central. Symmetrical expansion. Bilateral coarse breath sounds. Minimal expiratory wheeze. Nonlabored breathing.. CARDIAC: Normal S1, S2 with no gallops. No murmurs ABDOMEN: Soft. Bowel sounds normal. No organomegaly. No abdominal bruits. Extremities: reveal no edema. No clubbing or cyanosis Neurologically awake, alert, oriented x3 with well-coordinated movements. No focal deficits noted Skin: No rash or skin lesions. Psychiatric: Coperative. Nonsuicidal Musculoskeletal: No joint swelling or deformity. Normal range of motion. - Labs CBC & Chem 7: 05/29/23 09:16 05/29/23 09:16 Labs: Abnormal Lab Results - Last 24 Hours (Table) 05/26/23 05/26/23 05/26/23 Range/Units 11:24 16:36 20:54 WBC (3.8-10.6) k/uL MCV (80.0-100.0) fL MCHC (31.0-37.0) g/dL Neutrophils # (1.3-7.7) k/uL Lymphocytes # (1.0-4.8) k/uL BUN (7-17) mg/dL Glucose (74-99) mg/dL POC Glucose (mg/dL) 169 H 205 H (70-110) mg/dL Magnesium (1.6-2.3) mg/dL Lactate Dehydrogenase (120-246) U/L Urine Glucose (UA) 4+ H (Negative) SARS-CoV-2 (PCR) (Not Detectd) 05/26/23 05/26/23 05/27/23 Range/Units 21:02 21:10 06:31 WBC (3.8-10.6) k/uL MCV (80.0-100.0) fL MCHC (31.0-37.0) g/dL Neutrophils # (1.3-7.7) k/uL Lymphocytes # (1.0-4.8) k/uL BUN (7-17) mg/dL Glucose (74-99) mg/dL POC Glucose (mg/dL) 142 H (70-110) mg/dL Magnesium 2.4 H (1.6-2.3) mg/dL Lactate Dehydrogenase (120-246) U/L Urine Glucose (UA) (Negative) SARS-CoV-2 (PCR) Detected A (Not Detectd) 05/27/23 05/27/23 05/27/23 Range/Units 07:18 07:18 07:18 WBC 18.5 H (3.8-10.6) k/uL MCV 102.4 H (80.0-100.0) fL MCHC 30.5 L (31.0-37.0) g/dL Neutrophils # 17.2 H (1.3-7.7) k/uL Lymphocytes # 0.8 L (1.0-4.8) k/uL BUN 20 H (7-17) mg/dL Glucose 174 H (74-99) mg/dL POC Glucose (mg/dL) (70-110) mg/dL Magnesium (1.6-2.3) mg/dL Lactate Dehydrogenase 388 H (120-246) U/L Urine Glucose (UA) (Negative) SARS-CoV-2 (PCR) (Not Detectd) Assessment and Plan Assessment: Acute hypoxic respiratory failure requiring oxygen 6 L high flow via nasal cannu la. Acute COVID-19 infection with superimposed bacterial pneumonia. Procalcitonin level is elevated. Acute exacerbation of chronic bronchial asthma Coronary artery disease history of stent placement Chronic CHF with diastolic dysfunction. Moderate to severe mitral stenosis and mild aortic regurgitation and stenosis. EF 60 to 65%. Hypothyroidism Hyperlipidemia GI and DVT prophylaxis. On Lovenox subcu Plan: Patient is being continued on oxygen supplementation via nasal cannula. Patient was started on remdesivir course. Continue with IV Solu-Medrol and DuoNebs Continue with antibiotics ceftriaxone azithromycin and follow-up culture reports. Patient is on IV Lasix 40 mg twice daily Continue GI and DVT prophylaxis. Continue home medications and follow-up closely. Pulmonary is on board. Time with Patient: Greater than 30
--- NOTE | 2023-05-29 12:25 | P.PN ---
Subjective Progress Note Date: 05/28/23 82-year-old female who has a past medical history significant for hypertension, hyperlipidemia, hypothyroidism, coronary artery disease and has had a stent placed, she also is a diabetic and she also has aortic stenosis. Patient comes in today stating that she started having difficulty breathing this morning at about 7:00 she stated that it came on rather quickly. Patient states she felt relatively well yesterday. Patient states initially she had chest pressure that is let up quite a bit at this point in time. Patient denies any fever chills or cough or patient Nuys abdominal pain patient has nausea vomiting diarrhea. Patient Nuys any history of congestive heart failure. Patient denies any h istory of COPD. Patient states she never smoked. Patient denies any headache patient denies lightheadedness or dizziness. Patient's main complaint now is that she is having significant dyspnea. Patient was put on nonrebreather because when EMS arrived to the house she was oxygenating in high 60s the patient was 87% on arrival to the emergency department and once we got her settled in on a nonrebreather she was 90% Blood work completed in ED reveals a WBC of 24.4, hemoglobin of 12.8 and plate let count of 300, D-dimer elevated at 1.04, sodium 142, potassium 4.2, BUN/creatinine of 15/0.73, AST mildly elevated at 41 BNP of 875, UA is unremarkable Chest x-ray reveals multifocal airspace opacities CTA chest is negative for PE reveals scattered airspace opacities; throughout the lungs with cardiomegaly consistent with multifocal pneumonia with superimposed CHF multiple enlarged lymph nodes are seen throughout the mediastinum; which are slightly larger than previous exams in 2017; given p ossible infectious process, enlarged lymph nodes could be reactive 05/27/2023 Patient is sitting in the chair. Awake alert and oriented x 3. No complaints of chest pain. Still having shortness of breath and exertional dyspnea. Requiring oxygen at 6 L high flow this morning. Patient has been afebrile. No nausea or vomiting. Tolerating oral diet. Laboratory data showed WBC 18.4 hemoglobin 11.9 and platelets 241 LDH 388 and procalcitonin level is 3.27. Patient is being continued on antibiotics for pneumonia and continue with droplet and contact precautions. 05/28/2023 Patient is sitting in a chair. Awake alert and oriented x 3. No complaints of chest pain. Still having shortness of breath and exertional dyspnea. Currently on high flow 2 L via nasal cannula. Patient is being continued on IV Solu-Medrol and remdesivir course. Patient is also on antibiotics for possible superimposed bacterial pneumonia. Patient is on DVT prophylax with Lovenox subcu. Repeat chest x-ray showed bilateral pulmonary infiltrates slightly improved compared to yesterday. Patient is also on IV Lasix 40 mg twice daily. Laboratory data showed WBC 22.7 hemoglobin 11.5 and platelets 303 sodium 142 pot assium 3.9 chloride 104 bicarb is 27 BUN 26 and creatinine 0.76 and blood sugar 180. A1c level is 6.2 and calcium 8.2. Current medications reviewed. Objective - Vital Signs Vital signs: Vital Signs Temp 98.2 F 05/28/23 20:00 Pulse 61 05/28/23 20:00 Resp 19 05/28/23 20:00 BP 139/67 05/28/23 20:00 Pulse Ox 96 05/28/23 20:00 FiO2 Intake & Output 05/28/23 05/28/23 05/29/23 06:59 18:59 06:59 Intake Total 500 650 720 Output Total 900 Balance -400 650 720 Weight 53 kg Intake: Intake, IV Titration 50 Amount cefTRIAXone 2 gm In 50 Sodium Chloride 0.9% 50 ml @ 100 mls/hr IVPB Q24HR [facility] Rx#:[id number] Oral 500 600 720 Output: Urine 900 Other: Voiding Method Toilet Toilet External Catheter External Catheter - Exam PHYSICAL EXAMINATION: Patient is lying in the bed comfortably, no acute distress, awake alert and oriented.. HEENT: Normocephalic. Neck is supple. Pupils reactive. Nostrils clear. Oral cavity is moist. Neck reveals no JVD, carotid bruits, or thyromegaly. CHEST EXAMINATION: Trachea is central. Symmetrical expansion. Bilateral coarse breath sounds. Minimal expiratory wheeze. Nonlabored breathing.. CARDIAC: Normal S1, S2 with no gallops. No murmurs ABDOMEN: Soft. Bowel sounds normal. No organomegaly. No abdominal bruits. Extremities: reveal no edema. No clubbing or cyanosis Neurologically awake, alert, oriented x3 with well-coordinated movements. No focal deficits noted Skin: No rash or skin lesions. Psychiatric: Coperative. Nonsuicidal Musculoskeletal: No joint swelling or deformity. Normal range of motion. - Labs CBC & Chem 7: 05/29/23 09:16 05/29/23 09:16 Labs: Abnormal Lab Results - Last 24 Hours (Table) 05/28/23 05/28/23 05/28/23 Range/Units 05:59 09:24 09:24 WBC 22.7 H (3.8-10.6) k/uL RBC 3.71 L (3.80-5.40) m/uL MCV 102.4 H (80.0-100.0) fL MCHC 30.4 L (31.0-37.0) g/dL Neutrophils # 21.1 H (1.3-7.7) k/uL Lymphocytes # 0.7 L (1.0-4.8) k/uL BUN (7-17) mg/dL Glucose (74-99) mg/dL POC Glucose (mg/dL) 185 H (70-110) mg/dL Hemoglobin A1c 6.2 H (<=6.0) % Calcium (8.4-10.2) mg/dL 05/28/23 05/28/23 05/28/23 Range/Units 09:24 11:30 16:27 WBC (3.8-10.6) k/uL RBC (3.80-5.40) m/uL MCV (80.0-100.0) fL MCHC (31.0-37.0) g/dL Neutrophils # (1.3-7.7) k/uL Lymphocytes # (1.0-4.8) k/uL BUN 26 H (7-17) mg/dL Glucose 180 H (74-99) mg/dL POC Glucose (mg/dL) 153 H 168 H (70-110) mg/dL Hemoglobin A1c (<=6.0) % Calcium 8.2 L (8.4-10.2) mg/dL 05/28/23 Range/Units 20:13 WBC (3.8-10.6) k/uL RBC (3.80-5.40) m/uL MCV (80.0-100.0) fL MCHC (31.0-37.0) g/dL Neutrophils # (1.3-7.7) k/uL Lymphocytes # (1.0-4.8) k/uL BUN (7-17) mg/dL Glucose (74-99) mg/dL POC Glucose (mg/dL) 215 H (70-110) mg/dL Hemoglobin A1c (<=6.0) % Calcium (8.4-10.2) mg/dL Microbiology - Last 24 Hours (Table) 05/26/23 11:15 Blood Culture - Preliminary Blood 05/26/23 11:24 Blood Culture - Preliminary Blood Assessment and Plan Assessment: Acute hypoxic respiratory failure requiring oxygen 6 L high flow via nasal cannul->2L today Acute COVID-19 infection with superimposed bacterial pneumonia. Procalcitonin level is elevated. Acute exacerbation of chronic bronchial asthma Coronary artery disease history of stent placement Chronic CHF with diastolic dysfunction. Moderate to severe mitral stenosis and mild aortic regurgitation and stenosis. EF 60 to 65%. Hypothyroidism Hyperlipidemia GI and DVT prophylaxis. On Lovenox subcu Plan: Patient is being continued on oxygen supplementation via nasal cannula. Patient was started on remdesivir course. Continue with IV Solu-Medrol and DuoNebs Continue with antibiotics ceftriaxone azithromycin and follow-up culture rep orts. Patient is on IV Lasix 40 mg twice daily Continue GI and DVT prophylaxis. Continue home medications and follow-up closely. Pulmonary is on board. Time with Patient: Greater than 30
--- NOTE | 2023-05-29 15:02 | CDI ---
Documentation Clarification Form Date: 05/29/2023 02:44:56 PM From: Hermila Rizzo RN CCDS Phone: [phone] Admit Date: 05/26/2023 12:32:00 PM Patient Name: Juan Francisco Grande Visit Number: [id number] Discharge Date: ATTENTION: The Clinical Documentation Specialists (CDI) and [facility] Coding Staff appreciate your assistance in clarifying documentation. Please respond to the clarification below the line at the bottom and electronically sign. The CDI & [facility] Coding staff will review the response and follow-up if needed. Please note: Queries are made part of the Legal Health Record. If you have any questions, please contact the author of this message via ITS. Dr. Darren Iyer, The patient has Sepsis documented in the ED note 05/25. Based on this information and the findings below, is there an additional diagnosis that is clinically appropriate for this patient? History/Risk Factors: 82 year-old female presents to the ED for difficulty breathing that came on quickly with chest pressure. Medical History: Heart failure, HLD, HTN and RA. 05/25, H&P. Clinical Indicators: WBC, 05/25: 24.4 Procalcitonin, 05/26: 3.27 Lactate Dehydrogenase, 05/26: 388 SARS-CoV-2 (PCR), 05/25: Detected A Blood cultures, 05/28: No growth after 48 hours Sputum culture, 05/28: Gram stain Preliminary Few Polymorphonuclear leukocytes Few Gram Positive Cocci Vitals signs, 05/25: B/P 146/71; HR 94; Temp 98.2 F Oral; RR 30; SpO2 87% Non- Rebreather 15L Treatment: 05/26 Remdesivir 200mg IVPB x 1; 05/27 Remdesivir 100mg IVPB Daily x 4 bags ID Consult: Antibiotics: 05/25 Rocephin 1,000mg IVP x 2; Azithromycin 500mg IVPB x 1; 05/26 Zithromax 500mg PO Daily x 2 doses; 05/26 Ceftriaxone 2gm IVPB Q24H x 4 bags; Is there an additional diagnosis that is clinically appropriate for this patient? [ x ] Sepsis secondary to COVID 19 and bacterial pneumonia, present on admission [ ] No additional diagnosis/not clinically significant [ ] Other, please specify [ ] Unable to determine SIRS Criteria: 2 or more of the following may indicate SIRS Temperature < 96.8F (36C) or > 101.0F (38.3C) Heart Rate > 90 bpm Respiratory Rate > 20 breaths/min or PaCO2 < 32 mmHg White Blood Cell Count > 12,000 or < 4,000 cells/mm3 or > 10% bands (Template Last Reviewed: March 2022) MTDD
[2023-05-29 16:29] LABS: Glucose,Whole Blood 199 mg/dL (70-110)
[2023-05-29 20:03] LABS: Glucose,Whole Blood 171 mg/dL (70-110)
[2023-05-30 05:59] LABS: Glucose,Whole Blood 151 mg/dL (70-110)
[2023-05-30 08:09] LABS: Basophils % (A) 0 %; Eosinophils % (A) 0 %; HCT 36.9 % (34.0-46.0); HGB 11.3 gm/dL (11.4-16.0); Hypochromasia Slight; Lymphocytes # (A) 0.9 k/uL (1.0-4.8); Lymphocytes % (A) 7 %; MCH 30.7 pg (25.0-35.0); MCHC 30.6 g/dL (31.0-37.0); MCV 100.3 fL (80.0-100.0); Macrocytosis Slight; Mean Platelet Volume 8.3; Monocytes # (A) 0.5 k/uL (0-1.0); Monocytes % (A) 4 %; Neutrophils # (A) 10.9 k/uL (1.3-7.7); Neutrophils % (A) 88 %; Platelet Count 322 k/uL (150-450); RBC 3.68 m/uL (3.80-5.40); RDW 15.4 % (11.5-15.5); WBC 12.4 k/uL (3.8-10.6)
[2023-05-30 08:34] LABS: African American GFR (CKD) >90 (>60 ml/min/1.73 sqM); Anion Gap 5 mmol/L; Blood Urea Nitrogen 35 mg/dL (7-17); Calcium 8.8 mg/dL (8.4-10.2); Carbon Dioxide 32 mmol/L (22-30); Chloride 101 mmol/L (98-107); Glucose 161 mg/dL (74-99); Non-African American GFR(CKD) 83 (>60 ml/min/1.73 sqM); Potassium 3.9 mmol/L (3.5-5.1); Sodium 138 mmol/L (137-145)
[2023-05-30] MEDS: FUROSEMIDE 40 MG TAB PO SCH (10:11)
[2023-05-30 11:55] LABS: Glucose,Whole Blood 181 mg/dL (70-110)
--- NOTE | 2023-05-30 13:20 | P.PN ---
Subjective Progress Note Date: 05/29/23 Principal diagnosis: Reason for follow-up is COVID-19 and pneumonia Patient is a 82-year-old female with a past medical history significant for hypertension hyperlipidemia rheumatoid arthritis mitral valve prolapse and heart failure with presenting to the hospital for evaluation of increasing shortness of breath., Patient COVID-19 PCR came back positive CT angiogram chest was negative for PE did shows scattered airspace opacity throughout the lungs concerning for pneumonia. On today's evaluation that is 05/29/2023,the patient denies any fever or any chills, patient is breathing comfortably on 2 L nasal cannula oxygen the patient denies chest pain shortness of breath and cough is slightly decreased intensity mostly dry in nature, patient denies abdominal pain, no nausea vomiting or diarrhea. Patient white count is down to 15.3, creatinine 0.70 Objective - Vital Signs Vital signs: Vital Signs Temp 97.9 F 05/29/23 16:00 Pulse 75 05/29/23 16:00 Resp 18 05/29/23 16:00 BP 121/60 05/29/23 16:00 Pulse Ox 98 05/29/23 16:00 FiO2 Intake & Output 05/29/23 05/29/23 05/30/23 06:59 18:59 06:59 Intake Total 720 460 240 Output Total 500 900 Balance 220 -440 240 Weight 52.9 kg Intake: Oral 720 460 240 Output: Urine 500 900 Other: Voiding Method Toilet Toilet External Catheter External Catheter # Voids 2 - Exam GENERAL DESCRIPTION: An elderly female lying in bed in no distress RESPIRATORY SYSTEM: Unlabored breathing , coarse breath sounds bilaterally HEART: S1 S2 regular rate and rhythm , ABDOMEN: Soft , no tenderness EXTREMITIES: No edema feet - Labs CBC & Chem 7: 05/30/23 07:32 05/30/23 07:32 Labs: Abnormal Lab Results - Last 24 Hours (Table) 05/29/23 05/29/23 05/29/23 Range/Units 06:07 09:16 09:16 WBC 15.3 H (3.8-10.6) k/uL RBC 3.78 L (3.80-5.40) m/uL MCV 102.7 H (80.0-100.0) fL MCHC 30.6 L (31.0-37.0) g/dL Neutrophils # 14.3 H (1.3-7.7) k/uL Lymphocytes # 0.6 L (1.0-4.8) k/uL BUN (7-17) mg/dL Glucose (74-99) mg/dL POC Glucose (mg/dL) 149 H (70-110) mg/dL Procalcitonin 1.38 H (0.02-0.09) ng/mL 05/29/23 05/29/23 05/29/23 Range/Units 09:16 11:16 16:26 WBC (3.8-10.6) k/uL RBC (3.80-5.40) m/uL MCV (80.0-100.0) fL MCHC (31.0-37.0) g/dL Neutrophils # (1.3-7.7) k/uL Lymphocytes # (1.0-4.8) k/uL BUN 30 H (7-17) mg/dL Glucose 277 H (74-99) mg/dL POC Glucose (mg/dL) 193 H 199 H (70-110) mg/dL Procalcitonin (0.02-0.09) ng/mL 05/29/23 Range/Units 20:01 WBC (3.8-10.6) k/uL RBC (3.80-5.40) m/uL MCV (80.0-100.0) fL MCHC (31.0-37.0) g/dL Neutrophils # (1.3-7.7) k/uL Lymphocytes # (1.0-4.8) k/uL BUN (7-17) mg/dL Glucose (74-99) mg/dL POC Glucose (mg/dL) 171 H (70-110) mg/dL Procalcitonin (0.02-0.09) ng/mL Microbiology - Last 24 Hours (Table) 05/28/23 12:12 Gram Stain - Preliminary Sputum 05/26/23 11:15 Blood Culture - Preliminary Blood 05/26/23 11:24 Blood Culture - Preliminary Blood Assessment and Plan (1) COVID-19 Current Visit: Yes Status: Acute Code(s): U07.1 - COVID-19 SNOMED Code(s): 246969070 (2) Pneumonia Current Visit: Yes Status: Acute Code(s): J18.9 - PNEUMONIA, UNSPECIFIED ORGANISM SNOMED Code(s): 879952357 Plan: 1patient presented hospital with increasing shortness of breath which is likely multifactorial, the patient did have a COVID-19 collected evening of 05/26/2023 that came back positive last night patient also have elevated procalcitonin more likely combination of COVID-19 and possible component of secondary bacterial pneumonia 2patient to continue with the remdesivir antibiotic treatment on 5, along with steroids Lovenox and Rocephin, cultures currently pending 3patient white count is trending down we will monitor closely Dictation was produced using [employer] dictation software. please excuse any grammatical, word or spelling errors. Time with Patient: Less than 30
--- NOTE | 2023-05-30 13:21 | P.PN ---
Subjective Progress Note Date: 05/30/23 Principal diagnosis: Reason for follow-up is COVID-19 and pneumonia Patient is a 82-year-old female with a past medical history significant for hypertension hyperlipidemia rheumatoid arthritis mitral valve prolapse and heart failure with presenting to the hospital for evaluation of increasing shortness of breath., Patient COVID-19 PCR came back positive CT angiogram chest was negative for PE did shows scattered airspace opacity throughout the lungs concerning for pneumonia. On today's evaluation that is 05/30/2023,the patient remains to be afebrile, patient is breathing comfortably on room air without need for supplemental oxygen, the patient denies chest pain shortness of breath patient coughing decreased in intensity and more lucid per the patient, patient denies abdominal pain, no nausea vomiting or diarrhea. Patient white count is 12.4, creatinine 0.68, blood and sputum culture has been negative Objective - Vital Signs Vital signs: Vital Signs Temp 98.2 F 05/29/23 20:00 Pulse 88 05/30/23 04:00 Resp 18 05/30/23 04:00 BP 117/58 05/30/23 04:00 Pulse Ox 92 L 05/30/23 04:00 FiO2 Intake & Output 05/29/23 05/30/23 05/30/23 18:59 06:59 18:59 Intake Total 460 240 118 Output Total 900 200 Balance -440 40 118 Weight 52.4 kg Intake: Oral 460 240 118 Output: Urine 900 200 Other: Voiding Method Toilet Toilet External Catheter # Voids 2 - Exam GENERAL DESCRIPTION: An elderly female lying in bed in no distress RESPIRATORY SYSTEM: Unlabored breathing , clear to auscultation HEART: S1 S2 regular rate and rhythm , ABDOMEN: Soft , no tenderness EXTREMITIES: No edema feet - Labs CBC & Chem 7: 05/30/23 07:32 05/30/23 07:32 Labs: Abnormal Lab Results - Last 24 Hours (Table) 05/29/23 05/29/23 05/29/23 Range/Units 09:16 16:26 20:01 WBC (3.8-10.6) k/uL RBC (3.80-5.40) m/uL Hgb (11.4-16.0) gm/dL MCV (80.0-100.0) fL MCHC (31.0-37.0) g/dL Neutrophils # (1.3-7.7) k/uL Lymphocytes # (1.0-4.8) k/uL Carbon Dioxide (22-30) mmol/L BUN (7-17) mg/dL Glucose (74-99) mg/dL POC Glucose (mg/dL) 199 H 171 H (70-110) mg/dL Procalcitonin 1.38 H (0.02-0.09) ng/mL 05/30/23 05/30/23 05/30/23 Range/Units 05:56 07:32 07:32 WBC 12.4 H (3.8-10.6) k/uL RBC 3.68 L (3.80-5.40) m/uL Hgb 11.3 L (11.4-16.0) gm/dL MCV 100.3 H (80.0-100.0) fL MCHC 30.6 L (31.0-37.0) g/dL Neutrophils # 10.9 H (1.3-7.7) k/uL Lymphocytes # 0.9 L (1.0-4.8) k/uL Carbon Dioxide 32 H (22-30) mmol/L BUN 35 H (7-17) mg/dL Glucose 161 H (74-99) mg/dL POC Glucose (mg/dL) 151 H (70-110) mg/dL Procalcitonin (0.02-0.09) ng/mL 05/30/23 Range/Units 11:54 WBC (3.8-10.6) k/uL RBC (3.80-5.40) m/uL Hgb (11.4-16.0) gm/dL MCV (80.0-100.0) fL MCHC (31.0-37.0) g/dL Neutrophils # (1.3-7.7) k/uL Lymphocytes # (1.0-4.8) k/uL Carbon Dioxide (22-30) mmol/L BUN (7-17) mg/dL Glucose (74-99) mg/dL POC Glucose (mg/dL) 181 H (70-110) mg/dL Procalcitonin (0.02-0.09) ng/mL Microbiology - Last 24 Hours (Table) 05/28/23 12:12 Gram Stain - Final Sputum Sputum Culture - Final 05/26/23 11:15 Blood Culture - Preliminary Blood 05/26/23 11:24 Blood Culture - Preliminary Blood Assessment and Plan (1) COVID-19 Current Visit: Yes Status: Acute Code(s): U07.1 - COVID-19 SNOMED Code(s): 802790548 (2) Pneumonia Current Visit: Yes Status: Acute Code(s): J18.9 - PNEUMONIA, UNSPECIFIED ORGANISM SNOMED Code(s): 813342668 Plan: 1patient presented hospital with increasing shortness of breath which is likely multifactorial, the patient did have a COVID-19 collected evening of 05/26/2023 that came back positive last night patient also have elevated procalcitonin more likely combination of COVID-19 and possible component of secondary bacterial pneumonia 2patient to continue with the remdesivir day number 4 out of 5, along with steroids which has been switched to p.o. Lovenox 3as far as component of bacterial pneumonia sputum culture has been negative for any resistant pathogen and patient has completed 5-day course of Rocephin white count is trending down Dictation was produced using [employer] software. please excuse any grammatical, word or spelling errors. Time with Patient: Less than 30
[2023-05-30] MEDS: predniSONE 20 MG TAB PO SCH (14:19)
[2023-05-30 16:50] LABS: Glucose,Whole Blood 151 mg/dL (70-110)
--- NOTE | 2023-05-30 17:10 | P.PN ---
Subjective Progress Note Date: 05/30/23 This is a 82-year-old female patient presented to the hospital because of worsening shortness of breath and her symptoms started last week specifically around 05/22/2023. The patient and her were both sick. The patient came into the hospital and the patient was diagnosed having an acute COVID-19 infection and the presentation is typical of an acute COVID-19 pneumonia. The patient is currently on 6 L of O2 nasal cannula. She has received vaccination x 2 without any booster. She is known to have chronic bronchial asthma, coronary artery disease with previous stent and she is a lifetime non-smoker and she has history of hypertension hyperlipidemia. She has been followed up in our office regarding her asthma and she has been maintained on Symbicort as maintenance. Her symptoms are essentially related to cough which is essentially nonproductive and the patient generalized weakness and fatigue and congestion. Subsequently, the patient became progressively more short of breath and she came into the emergency room where she was found to be hypoxic. CT scan of the chest was done and showed no evidence of any pulm embolism and the patient had scattered bilateral pulmonary airspace opacities throughout the lung stoll along with cardiomegaly. The patient has a white cell count of 18.5, hemoglobin 11.9 and a platelet count of 241. BUN is at 20 with a creatinine of 0.7 and sodium levels at 139. Procalcitonin level was also elevated at 3.27 with a LDH of 388. At this point in time, the patient is on a combination of Rocephin and Zithromax. The patient on IV Solu-Medrol. I discussed the case with infectious disease and opted to start the patient on remdesivir regarding her COVID-19 infection as the patient's presentation is more consistent with viral over bacterial pneumonia. Echocardiogram from 2022 showed normal LV function with an EF of around 55 to 60% and the patient had moderate-severe pulmonary artery pressure of 53. On today's evaluation of 05/28/2023, the patient is being seen for a follow-up. The patient is feeling well. She gets short of breath with mobility and activity. No significant dyspnea at rest. Oxygenation is improved and the patient has been weaned down from 6 L down to 2 L of oxygen by nasal cannula. Noted the patient is currently on Solu-Medrol and remdesivir regarding COVID-19 related pneumonia. Her procalcitonin level was elevated at 3.27. Based on that, the patient was also covered with a combination of Rocephin and Zithromax. Remains on IV Solu-Medrol 60 mg every 6 hours. No new complaints. Sodium is at 142 with a potassium level of 3.9, BUN is at 26 with a creatinine of 0.7 and the patient CBC shows a WBC count 22.7 with a hemoglobin 11.5 and a platelet count of 303. She has neutrophilia. No significant lymphocytosis. Coagulation profile was normal with a D-dimer of 1.04 at the time of admission. She remains on Symbicort. She remains on lateral HFA [id number]. Repeat chest x-ray shows still bilateral pulm infiltrates although slightly improved compared to yesterday. On today's evaluation of 05/29/2023, the patient is being seen for a follow-up. The patient is feeling better. She continues to have some persistent cough. Nevertheless, the repeat chest x-ray was done this morning shows improvement in the aeration of the lungs and there is some persistent multifocal pulmonary opacities. The patient remains on IV Solu-Medrol. The patient remains on remdesivir per protocol. The patient is also covered with Rocephin as a broad- spectrum antibiotic coverage. Repeat procalcitonin level from today is pending. Remains on Lovenox for DVT prophylaxis at 40 mg subcu on a daily basis. The white cell count is at 15.3 with a hemoglobin 11.9, BUN is at 30 with a catheter of 0.7 and sodium levels of 140. No other significant issues otherwise for now. She feels that she is gradually improving. On today's evaluation of 05/30/2023, the patient is being seen for a follow-up. Doing well. No specific complaints. She is currently on room air oxygen with a pulse ox of 94%. Continues to have some cough. No significant sputum production. Labs from today showed a white cell count of 12, hemoglobin 11 and a platelet count of 322, BUN is at 35 with a creatinine of 0.68 and a sodium le vels at 138. Today's day 4 of remdesivir and the patient remains on IV Solu- Medrol which will be switched to oral prednisone. The patient is also on IV Rocephin. Clinically improving. Remains on Lasix 40 mg p.o. daily. Objective - Vital Signs Vital signs: Vital Signs Temp 98.2 F 05/29/23 20:00 Pulse 88 05/30/23 04:00 Resp 18 05/30/23 04:00 BP 117/58 05/30/23 04:00 Pulse Ox 92 L 05/30/23 04:00 FiO2 Intake & Output 05/29/23 05/30/23 05/30/23 18:59 06:59 18:59 Intake Total 460 240 118 Output Total 900 200 Balance -440 40 118 Weight 52.4 kg Intake: Oral 460 240 118 Output: Urine 900 200 Other: Voiding Method Toilet Toilet External Catheter # Voids 2 - Exam GENERAL EXAM: Alert, 82-year-old white female appearing stated age, comfortable in no apparent distress. Patient is currently on room air oxygen HEAD: Normocephalic and atraumatic EYES: Normal reaction of pupils, equal size. NOSE: Clear with pink turbinates. THROAT: No erythema or exudates. NECK: No masses, no JVD. CHEST: No chest wall deformity. LUNGS: Equal air entry with diffuse rhonchi and crackles. no conversational dyspnea or accessory muscle use while at rest CVS: S1 and S2 normal with grade 3 systolic murmur, regular rhythm. No other extra heart sounds ABDOMEN: No hepatosplenomegaly, active bowel sounds, no guarding or rigidity. SPINE: No scoliosis or deformity SKIN: No rashes CENTRAL NERVOUS SYSTEM: No focal deficits, tone is normal in all 4 extremities. EXTREMITIES: There is no peripheral edema, clubbing, or cyanosis. Peripheral pulses are intact. - Labs CBC & Chem 7: 05/30/23 07:32 05/30/23 07:32 Labs: Abnormal Lab Results - Last 24 Hours (Table) 05/29/23 05/29/23 05/29/23 Range/Units 09:16 09:16 11:16 WBC 15.3 H (3.8-10.6) k/uL RBC 3.78 L (3.80-5.40) m/uL Hgb (11.4-16.0) gm/dL MCV 102.7 H (80.0-100.0) fL MCHC 30.6 L (31.0-37.0) g/dL Neutrophils # 14.3 H (1.3-7.7) k/uL Lymphocytes # 0.6 L (1.0-4.8) k/uL Carbon Dioxide (22-30) mmol/L BUN (7-17) mg/dL Glucose (74-99) mg/dL POC Glucose (mg/dL) 193 H (70-110) mg/dL Procalcitonin 1.38 H (0.02-0.09) ng/mL 05/29/23 05/29/23 05/30/23 Range/Units 16:26 20:01 05:56 WBC (3.8-10.6) k/uL RBC (3.80-5.40) m/uL Hgb (11.4-16.0) gm/dL MCV (80.0-100.0) fL MCHC (31.0-37.0) g/dL Neutrophils # (1.3-7.7) k/uL Lymphocytes # (1.0-4.8) k/uL Carbon Dioxide (22-30) mmol/L BUN (7-17) mg/dL Glucose (74-99) mg/dL POC Glucose (mg/dL) 199 H 171 H 151 H (70-110) mg/dL Procalcitonin (0.02-0.09) ng/mL 05/30/23 05/30/23 Range/Units 07:32 07:32 WBC 12.4 H (3.8-10.6) k/uL RBC 3.68 L (3.80-5.40) m/uL Hgb 11.3 L (11.4-16.0) gm/dL MCV 100.3 H (80.0-100.0) fL MCHC 30.6 L (31.0-37.0) g/dL Neutrophils # 10.9 H (1.3-7.7) k/uL Lymphocytes # 0.9 L (1.0-4.8) k/uL Carbon Dioxide 32 H (22-30) mmol/L BUN 35 H (7-17) mg/dL Glucose 161 H (74-99) mg/dL POC Glucose (mg/dL) (70-110) mg/dL Procalcitonin (0.02-0.09) ng/mL Microbiology - Last 24 Hours (Table) 05/26/23 11:15 Blood Culture - Preliminary Blood 05/26/23 11:24 Blood Culture - Preliminary Blood 05/28/23 12:12 Gram Stain - Preliminary Sputum Assessment and Plan Plan: Acute hypoxemic respiratory failure, currently on room air oxygen Acute COVID-19 related pneumonia with secondary hypoxic respiratory failure. Possibility of superinfection with bacteria is likely with an elevated procalcitonin level although the presentation is more consistent with a viral over bacterial infection. Chest CTA did show scattered airspace opacities throughout bilateral lungs, concerning for multifocal pneumonia. Repeat chest x-ray from yesterday and today shows improvement in the aeration and pulmonary infiltrates although the patient continues to have bilateral persistent pulmonary infiltration and she has not completely recovered. She remains on Rocephin, IV Solu-Medrol and remdesivir day #4 Acute exacerbation of chronic bronchial asthma, secondary to above, improving Shortness of breath secondary to above, improving Elevated procalcitonin level History of coronary artery disease with previous PCI/stent x3 History of hyperlipidemia History of hypertension Present LV function with normal ejection fraction. The patient has moderate to severe mitral calcification and moderate to severe mitral stenosis and mild aortic regurgitation and stenosis. LV function is preserved and the patient has an ejection fraction of 60 to 65%. RA History of hypothyroidism Lifelong non-smoker Plan Will continue same treatment for now as the patient continues to improve Chest x-ray from yesterday was showing improvement Keep the patient on O2 and titrate oxygen flow to maintain saturation above 90%, currently improved and she is down to room air oxygen Stop IV Solu-Medrol start the patient on prednisone burst taper Continue remdesivir per protocol, currently day #4 Empiric antibiotic coverage with a combination of Rocephin Monitor procalcitonin level, repeat procalcitonin level has been downtrending IV LasixHas been discontinued and the patient is currently on 40 mg of Lasix Lovenox 40 mg subcu for DVT prophylaxis LDH level is mildly elevated Repeat chest x-ray in the morning will continue to follow
[2023-05-30 20:10] LABS: Glucose,Whole Blood 197 mg/dL (70-110)
[2023-05-31 06:23] LABS: Glucose,Whole Blood 108 mg/dL (70-110)
--- NOTE | 2023-05-31 08:37 | XR ---
EXAMINATION TYPE: XR chest 1V DATE OF EXAM: 05/31/2023 7:12 AM CLINICAL INDICATION:Female, 82 years old with history of pneumonia; [facility] COMPARISON: Chest radiographs from 05/29/2023 TECHNIQUE: XR chest 1V Frontal view of the chest. FINDINGS: Lungs/Pleura: Improved aeration of lungs on today's exam. No evidence of pneumothorax or large pleura l effusion. Pulmonary vascularity: Unremarkable. Heart/mediastinum: Cardiomediastinal silhouette is enlarged and stable. Musculoskeletal: No acute osseous pathology. IMPRESSION: Improved aeration of the lungs.
[2023-05-31 10:08] VITALS: BP 130/65; PULSE 79; RESP 16; TEMP 98.2
[2023-05-31 10:39] LABS: Basophils % (A) 0 %; Eosinophils # (A) 0.1 k/uL (0-0.7); Eosinophils % (A) 1 %; HCT 37.3 % (34.0-46.0); HGB 11.4 gm/dL (11.4-16.0); Hypochromasia Slight; Lymphocytes # (A) 1.9 k/uL (1.0-4.8); Lymphocytes % (A) 12 %; MCH 30.7 pg (25.0-35.0); MCHC 30.6 g/dL (31.0-37.0); MCV 100.2 fL (80.0-100.0); Macrocytosis Slight; Mean Platelet Volume 8.1; Monocytes # (A) 0.9 k/uL (0-1.0); Monocytes % (A) 6 %; Neutrophils # (A) 12.3 k/uL (1.3-7.7); Neutrophils % (A) 80 %; Platelet Count 354 k/uL (150-450); RBC 3.72 m/uL (3.80-5.40); RDW 15.2 % (11.5-15.5); WBC 15.4 k/uL (3.8-10.6)
[2023-05-31 11:45] LABS: Glucose,Whole Blood 120 mg/dL (70-110)
--- NOTE | 2023-05-31 11:48 | P.PN ---
Subjective Progress Note Date: 05/29/23 82-year-old female who has a past medical history significant for hypertension, hyperlipidemia, hypothyroidism, coronary artery disease and has had a stent placed, she also is a diabetic and she also has aortic stenosis. Patient comes in today stating that she started having difficulty breathing this morning at about 7:00 she stated that it came on rather quickly. Patient states she felt relatively well yesterday. Patient states initially she had chest pressure that is let up quite a bit at this point in time. Patient denies any fever chills or cough or patient Nuys abdominal pain patient has nausea vomiting diarrhea. Patient Nuys any history of congestive heart failure. Patient denies any h istory of COPD. Patient states she never smoked. Patient denies any headache patient denies lightheadedness or dizziness. Patient's main complaint now is that she is having significant dyspnea. Patient was put on nonrebreather because when EMS arrived to the house she was oxygenating in high 60s the patient was 87% on arrival to the emergency department and once we got her settled in on a nonrebreather she was 90% Blood work completed in ED reveals a WBC of 24.4, hemoglobin of 12.8 and plate let count of 300, D-dimer elevated at 1.04, sodium 142, potassium 4.2, BUN/creatinine of 15/0.73, AST mildly elevated at 41 BNP of 875, UA is unremarkable Chest x-ray reveals multifocal airspace opacities CTA chest is negative for PE reveals scattered airspace opacities; throughout the lungs with cardiomegaly consistent with multifocal pneumonia with superimposed CHF multiple enlarged lymph nodes are seen throughout the mediastinum; which are slightly larger than previous exams in 2017; given p ossible infectious process, enlarged lymph nodes could be reactive 05/27/2023 Patient is sitting in the chair. Awake alert and oriented x 3. No complaints of chest pain. Still having shortness of breath and exertional dyspnea. Requiring oxygen at 6 L high flow this morning. Patient has been afebrile. No nausea or vomiting. Tolerating oral diet. Laboratory data showed WBC 18.4 hemoglobin 11.9 and platelets 241 LDH 388 and procalcitonin level is 3.27. Patient is being continued on antibiotics for pneumonia and continue with droplet and contact precautions. 05/28/2023 Patient is sitting in a chair. Awake alert and oriented x 3. No complaints of chest pain. Still having shortness of breath and exertional dyspnea. Currently on high flow 2 L via nasal cannula. Patient is being continued on IV Solu-Medrol and remdesivir course. Patient is also on antibiotics for possible superimposed bacterial pneumonia. Patient is on DVT prophylax with Lovenox subcu. Repeat chest x-ray showed bilateral pulmonary infiltrates slightly improved compared to yesterday. Patient is also on IV Lasix 40 mg twice daily. Laboratory data showed WBC 22.7 hemoglobin 11.5 and platelets 303 sodium 142 pot assium 3.9 chloride 104 bicarb is 27 BUN 26 and creatinine 0.76 and blood sugar 180. A1c level is 6.2 and calcium 8.2. 05/29/2023 Patient is currently sitting in the chair. Feels better. Requiring 2 L oxygen via nasal cannula. No complaints of chest pain . Patient does have exertional dyspnea. No" complaints of fever or chills. No nausea vomiting. Patient is being continued on remdesivir and IV steroids anD Lasix is being changed to p.o. The laboratory data showed WBC 15.3 hemoglobin 11.9 and platelets 264 Sodium 140 potassium 3.6 1200 bicarb is 29 BUN 13 creatinine 0.70 and blood sugar 277 And procalcitonin level 1.33 Current medications reviewed. Objective - Vital Signs Vital signs: Vital Signs Temp 96.9 F L 05/29/23 08:40 Pulse 96 05/29/23 08:40 Resp 20 05/29/23 08:40 BP 143/66 05/29/23 08:40 Pulse Ox 99 05/29/23 08:40 FiO2 Intake & Output 05/28/23 05/29/23 05/29/23 18:59 06:59 18:59 Intake Total 650 720 110 Output Total 500 900 Balance 650 220 -790 Weight 52.9 kg Intake: Intake, IV Titration 50 Amount cefTRIAXone 2 gm In 50 Sodium Chloride 0.9% 50 ml @ 100 mls/hr IVPB Q24HR [facility] Rx#:[id number] Oral 600 720 110 Output: Urine 500 900 Other: Voiding Method Toilet Toilet External Catheter External Catheter - Exam PHYSICAL EXAMINATION: Patient is lying in the bed comfortably, no acute distress, awake alert and oriented.. HEENT: Normocephalic. Neck is supple. Pupils reactive. Nostrils clear. Oral cavity is moist. Neck reveals no JVD, carotid bruits, or thyromegaly. CHEST EXAMINATION: Trachea is central. Symmetrical expansion. Bilateral coarse breath sounds. Minimal expiratory wheeze. Nonlabored breathing.. CARDIAC: Normal S1, S2 with no gallops. No murmurs ABDOMEN: Soft. Bowel sounds normal. No organomegaly. No abdominal bruits. Extremities: reveal no edema. No clubbing or cyanosis Neurologically awake, alert, oriented x3 with well-coordinated movements. No focal deficits noted Skin: No rash or skin lesions. Psychiatric: Coperative. Nonsuicidal Musculoskeletal: No joint swelling or deformity. Normal range of motion. - Labs CBC & Chem 7: 05/31/23 10:19 05/30/23 07:32 Labs: Abnormal Lab Results - Last 24 Hours (Table) 05/28/23 05/28/23 05/28/23 Range/Units 09:24 16:27 20:13 WBC (3.8-10.6) k/uL RBC (3.80-5.40) m/uL MCV (80.0-100.0) fL MCHC (31.0-37.0) g/dL Neutrophils # (1.3-7.7) k/uL Lymphocytes # (1.0-4.8) k/uL BUN (7-17) mg/dL Glucose (74-99) mg/dL POC Glucose (mg/dL) 168 H 215 H (70-110) mg/dL Hemoglobin A1c 6.2 H (<=6.0) % 05/29/23 05/29/23 05/29/23 Range/Units 06:07 09:16 09:16 WBC 15.3 H (3.8-10.6) k/uL RBC 3.78 L (3.80-5.40) m/uL MCV 102.7 H (80.0-100.0) fL MCHC 30.6 L (31.0-37.0) g/dL Neutrophils # 14.3 H (1.3-7.7) k/uL Lymphocytes # 0.6 L (1.0-4.8) k/uL BUN 30 H (7-17) mg/dL Glucose 277 H (74-99) mg/dL POC Glucose (mg/dL) 149 H (70-110) mg/dL Hemoglobin A1c (<=6.0) % 05/29/23 Range/Units 11:16 WBC (3.8-10.6) k/uL RBC (3.80-5.40) m/uL MCV (80.0-100.0) fL MCHC (31.0-37.0) g/dL Neutrophils # (1.3-7.7) k/uL Lymphocytes # (1.0-4.8) k/uL BUN (7-17) mg/dL Glucose (74-99) mg/dL POC Glucose (mg/dL) 193 H (70-110) mg/dL Hemoglobin A1c (<=6.0) % Microbiology - Last 24 Hours (Table) 05/28/23 12:12 Gram Stain - Preliminary Sputum 05/26/23 11:15 Blood Culture - Preliminary Blood 05/26/23 11:24 Blood Culture - Preliminary Blood Assessment and Plan Assessment: Acute hypoxic respiratory failure requiring oxygen 6 L high flow via nasal cannul->2L today Acute COVID-19 infection with superimposed bacterial pneumonia. Procalcitonin level is elevated. Acute exacerbation of chronic bronchial asthma Coronary artery disease history of stent placement Chronic CHF with diastolic dysfunction. Moderate to severe mitral stenosis and mild aortic regurgitation and stenosis. EF 60 to 65%. Hypothyroidism Hyperlipidemia GI and DVT prophylaxis. On Lovenox subcu Plan: Patient is being continued on oxygen supplementation via nasal cannula. Patient was started on remdesivir course. Continue with IV Solu-Medrol and DuoNebs Continue with antibiotics ceftriaxone azithromycin and follow-up culture reports. Patient is on IV Lasix 40 mg twice daily. . Changed to by mouth. Continue GI and DVT prophylaxis. Continue home medications and follow-up closely. Pulmonary is on board. Time with Patient: Greater than 30
--- NOTE | 2023-05-31 11:49 | P.PN ---
Subjective Progress Note Date: 05/30/23 82-year-old female who has a past medical history significant for hypertension, hyperlipidemia, hypothyroidism, coronary artery disease and has had a stent placed, she also is a diabetic and she also has aortic stenosis. Patient comes in today stating that she started having difficulty breathing this morning at about 7:00 she stated that it came on rather quickly. Patient states she felt relatively well yesterday. Patient states initially she had chest pressure that is let up quite a bit at this point in time. Patient denies any fever chills or cough or patient Nuys abdominal pain patient has nausea vomiting diarrhea. Patient Nuys any history of congestive heart failure. Patient denies any h istory of COPD. Patient states she never smoked. Patient denies any headache patient denies lightheadedness or dizziness. Patient's main complaint now is that she is having significant dyspnea. Patient was put on nonrebreather because when EMS arrived to the house she was oxygenating in high 60s the patient was 87% on arrival to the emergency department and once we got her settled in on a nonrebreather she was 90% Blood work completed in ED reveals a WBC of 24.4, hemoglobin of 12.8 and plate let count of 300, D-dimer elevated at 1.04, sodium 142, potassium 4.2, BUN/creatinine of 15/0.73, AST mildly elevated at 41 BNP of 875, UA is unremarkable Chest x-ray reveals multifocal airspace opacities CTA chest is negative for PE reveals scattered airspace opacities; throughout the lungs with cardiomegaly consistent with multifocal pneumonia with superimposed CHF multiple enlarged lymph nodes are seen throughout the mediastinum; which are slightly larger than previous exams in 2017; given p ossible infectious process, enlarged lymph nodes could be reactive 05/27/2023 Patient is sitting in the chair. Awake alert and oriented x 3. No complaints of chest pain. Still having shortness of breath and exertional dyspnea. Requiring oxygen at 6 L high flow this morning. Patient has been afebrile. No nausea or vomiting. Tolerating oral diet. Laboratory data showed WBC 18.4 hemoglobin 11.9 and platelets 241 LDH 388 and procalcitonin level is 3.27. Patient is being continued on antibiotics for pneumonia and continue with droplet and contact precautions. 05/28/2023 Patient is sitting in a chair. Awake alert and oriented x 3. No complaints of chest pain. Still having shortness of breath and exertional dyspnea. Currently on high flow 2 L via nasal cannula. Patient is being continued on IV Solu-Medrol and remdesivir course. Patient is also on antibiotics for possible superimposed bacterial pneumonia. Patient is on DVT prophylax with Lovenox subcu. Repeat chest x-ray showed bilateral pulmonary infiltrates slightly improved compared to yesterday. Patient is also on IV Lasix 40 mg twice daily. Laboratory data showed WBC 22.7 hemoglobin 11.5 and platelets 303 sodium 142 pot assium 3.9 chloride 104 bicarb is 27 BUN 26 and creatinine 0.76 and blood sugar 180. A1c level is 6.2 and calcium 8.2. 05/29/2023 Patient is currently sitting in the chair. Feels better. Requiring 2 L oxygen via nasal cannula. No complaints of chest pain . Patient does have exertional dyspnea. No" complaints of fever or chills. No nausea vomiting. Patient is being continued on remdesivir and IV steroids anD Lasix is being changed to p.o. The laboratory data showed WBC 15.3 hemoglobin 11.9 and platelets 264 Sodium 140 potassium 3.6 1200 bicarb is 29 BUN 13 creatinine 0.70 and blood sugar 277 And procalcitonin level 1.33 05/30/2023 Patient is currently sitting in the chair. Able to walk to the bathroom. Shortness of breath is improving. Patient does have cough without sputum produc tion. No chest tightness. No complaints of chest pain. Patient has been afebrile. Oxygen titrated down to room air now. Patient is being continued on remdesivir and IV steroids and breathing treat ments. Patient is also on antibiotics for pneumonia Laboratory data showed Sodium 138 potassium 3.9 chloride 101 bicarb 32 BUN 35 and creatinine 0.68 and blood sugar 161 , Calcium 8.8 WBC 12.4 hemoglobin 11.3 and platelets 322 Current medications reviewed. Objective - Vital Signs Vital signs: Vital Signs Temp 98.2 F 05/29/23 20:00 Pulse 88 05/30/23 04:00 Resp 18 05/30/23 04:00 BP 117/58 05/30/23 04:00 Pulse Ox 92 L 05/30/23 04:00 FiO2 Intake & Output 05/29/23 05/30/23 05/30/23 18:59 06:59 18:59 Intake Total 460 240 118 Output Total 900 200 Balance -440 40 118 Weight 52.4 kg Intake: Oral 460 240 118 Output: Urine 900 200 Other: Voiding Method Toilet Toilet External Catheter # Voids 2 - Exam PHYSICAL EXAMINATION: Patient is lying in the bed comfortably, no acute distress, awake alert and oriented.. HEENT: Normocephalic. Neck is supple. Pupils reactive. Nostrils clear. Oral cavity is moist. Neck reveals no JVD, carotid bruits, or thyromegaly. CHEST EXAMINATION: Trachea is central. Symmetrical expansion. Bilateral coarse breath sounds. Minimal expiratory wheeze. Nonlabored breathing.. CARDIAC: Normal S1, S2 with no gallops. No murmurs ABDOMEN: Soft. Bowel sounds normal. No organomegaly. No abdominal bruits. Extremities: reveal no edema. No clubbing or cyanosis Neurologically awake, alert, oriented x3 with well-coordinated movements. No focal deficits noted Skin: No rash or skin lesions. Psychiatric: Coperative. Nonsuicidal Musculoskeletal: No joint swelling or deformity. Normal range of motion. - Labs CBC & Chem 7: 05/31/23 10:19 05/30/23 07:32 Labs: Abnormal Lab Results - Last 24 Hours (Table) 05/29/23 05/29/23 05/29/23 Range/Units 09:16 16:26 20:01 WBC (3.8-10.6) k/uL RBC (3.80-5.40) m/uL Hgb (11.4-16.0) gm/dL MCV (80.0-100.0) fL MCHC (31.0-37.0) g/dL Neutrophils # (1.3-7.7) k/uL Lymphocytes # (1.0-4.8) k/uL Carbon Dioxide (22-30) mmol/L BUN (7-17) mg/dL Glucose (74-99) mg/dL POC Glucose (mg/dL) 199 H 171 H (70-110) mg/dL Procalcitonin 1.38 H (0.02-0.09) ng/mL 05/30/23 05/30/23 05/30/23 Range/Units 05:56 07:32 07:32 WBC 12.4 H (3.8-10.6) k/uL RBC 3.68 L (3.80-5.40) m/uL Hgb 11.3 L (11.4-16.0) gm/dL MCV 100.3 H (80.0-100.0) fL MCHC 30.6 L (31.0-37.0) g/dL Neutrophils # 10.9 H (1.3-7.7) k/uL Lymphocytes # 0.9 L (1.0-4.8) k/uL Carbon Dioxide 32 H (22-30) mmol/L BUN 35 H (7-17) mg/dL Glucose 161 H (74-99) mg/dL POC Glucose (mg/dL) 151 H (70-110) mg/dL Procalcitonin (0.02-0.09) ng/mL 05/30/23 Range/Units 11:54 WBC (3.8-10.6) k/uL RBC (3.80-5.40) m/uL Hgb (11.4-16.0) gm/dL MCV (80.0-100.0) fL MCHC (31.0-37.0) g/dL Neutrophils # (1.3-7.7) k/uL Lymphocytes # (1.0-4.8) k/uL Carbon Dioxide (22-30) mmol/L BUN (7-17) mg/dL Glucose (74-99) mg/dL POC Glucose (mg/dL) 181 H (70-110) mg/dL Procalcitonin (0.02-0.09) ng/mL Microbiology - Last 24 Hours (Table) 05/28/23 12:12 Gram Stain - Final Sputum Sputum Culture - Final 05/26/23 11:15 Blood Culture - Preliminary Blood 05/26/23 11:24 Blood Culture - Preliminary Blood Assessment and Plan Assessment: Acute hypoxic respiratory failure requiring oxygen 6 L high flow via nasal cannul->2L -->RA today Acute COVID-19 infection with superimposed bacterial pneumonia. Procalcitonin level is elevated. Acute exacerbation of chronic bronchial asthma Coronary artery disease history of stent placement Chronic CHF with diastolic dysfunction. Moderate to severe mitral stenosis and mild aortic regurgitation and stenosis. EF 60 to 65%. Hypothyroidism Hyperlipidemia GI and DVT prophylaxis. On Lovenox subcu Plan: Patient is being continued on oxygen supplementation via nasal cannula. Patient was started on remdesivir course. Continue with IV Solu-Medrol and DuoNebs Continue with antibiotics ceftriaxone azithromycin and follow-up culture reports. Patient is on IV Lasix 40 mg twice daily. . Changed to by mouth. Continue GI and DVT prophylaxis. Continue home medications and follow-up closely. Pulmonary is on board. Time with Patient: Greater than 30
[2023-05-31 12:02] LABS: Calcium 9.3 mg/dL (8.4-10.2); Glucose 116 mg/dL (74-99); Potassium 3.7 mmol/L (3.5-5.1); Sodium 139 mmol/L (137-145)
[2023-05-31 12:34] LABS: African American GFR (CKD) 74 (>60 ml/min/1.73 sqM); Anion Gap 6 mmol/L; Blood Urea Nitrogen 40 mg/dL (7-17); Carbon Dioxide 36 mmol/L (22-30); Chloride 97 mmol/L (98-107); Non-African American GFR(CKD) 65 (>60 ml/min/1.73 sqM)
[2023-05-31 13:08] VITALS: BMI 20.5
--- NOTE | 2023-05-31 15:38 | P.PN ---
Subjective Progress Note Date: 05/31/23 This is a 82-year-old female patient presented to the hospital because of worsening shortness of breath and her symptoms started last week specifically around 05/22/2023. The patient and her were both sick. The patient came into the hospital and the patient was diagnosed having an acute COVID-19 infection and the presentation is typical of an acute COVID-19 pneumonia. The patient is currently on 6 L of O2 nasal cannula. She has received vaccination x 2 without any booster. She is known to have chronic bronchial asthma, coronary artery disease with previous stent and she is a lifetime non-smoker and she has history of hypertension hyperlipidemia. She has been followed up in our office regarding her asthma and she has been maintained on Symbicort as maintenance. Her symptoms are essentially related to cough which is essentially nonproductive and the patient generalized weakness and fatigue and congestion. Subsequently, the patient became progressively more short of breath and she came into the emergency room where she was found to be hypoxic. CT scan of the chest was done and showed no evidence of any pulm embolism and the patient had scattered bilateral pulmonary airspace opacities throughout the lung stoll along with cardiomegaly. The patient has a white cell count of 18.5, hemoglobin 11.9 and a platelet count of 241. BUN is at 20 with a creatinine of 0.7 and sodium levels at 139. Procalcitonin level was also elevated at 3.27 with a LDH of 388. At this point in time, the patient is on a combination of Rocephin and Zithromax. The patient on IV Solu-Medrol. I discussed the case with infectious disease and opted to start the patient on remdesivir regarding her COVID-19 infection as the patient's presentation is more consistent with viral over bacterial pneumonia. Echocardiogram from 2022 showed normal LV function with an EF of around 55 to 60% and the patient had moderate-severe pulmonary artery pressure of 53. On today's evaluation of 05/28/2023, the patient is being seen for a follow-up. The patient is feeling well. She gets short of breath with mobility and activity. No significant dyspnea at rest. Oxygenation is improved and the patient has been weaned down from 6 L down to 2 L of oxygen by nasal cannula. Noted the patient is currently on Solu-Medrol and remdesivir regarding COVID-19 related pneumonia. Her procalcitonin level was elevated at 3.27. Based on that, the patient was also covered with a combination of Rocephin and Zithromax. Remains on IV Solu-Medrol 60 mg every 6 hours. No new complaints. Sodium is at 142 with a potassium level of 3.9, BUN is at 26 with a creatinine of 0.7 and the patient CBC shows a WBC count 22.7 with a hemoglobin 11.5 and a platelet count of 303. She has neutrophilia. No significant lymphocytosis. Coagulation profile was normal with a D-dimer of 1.04 at the time of admission. She remains on Symbicort. She remains on lateral HFA [id number]. Repeat chest x-ray shows still bilateral pulm infiltrates although slightly improved compared to yesterday. On today's evaluation of 05/29/2023, the patient is being seen for a follow-up. The patient is feeling better. She continues to have some persistent cough. Nevertheless, the repeat chest x-ray was done this morning shows improvement in the aeration of the lungs and there is some persistent multifocal pulmonary opacities. The patient remains on IV Solu-Medrol. The patient remains on remdesivir per protocol. The patient is also covered with Rocephin as a broad- spectrum antibiotic coverage. Repeat procalcitonin level from today is pending. Remains on Lovenox for DVT prophylaxis at 40 mg subcu on a daily basis. The white cell count is at 15.3 with a hemoglobin 11.9, BUN is at 30 with a catheter of 0.7 and sodium levels of 140. No other significant issues otherwise for now. She feels that she is gradually improving. On today's evaluation of 05/30/2023, the patient is being seen for a follow-up. Doing well. No specific complaints. She is currently on room air oxygen with a pulse ox of 94%. Continues to have some cough. No significant sputum production. Labs from today showed a white cell count of 12, hemoglobin 11 and a platelet count of 322, BUN is at 35 with a creatinine of 0.68 and a sodium le vels at 138. Today's day 4 of remdesivir and the patient remains on IV Solu- Medrol which will be switched to oral prednisone. The patient is also on IV Rocephin. Clinically improving. Remains on Lasix 40 mg p.o. daily. On today's evaluation of 05/31/2023, the patient is being seen for a follow-up. The patient is doing very well. No specific complaints. Cough is still present although subsided significantly and the patient has no significant shortness of breath. Repeat chest x-ray was done today and the patient showed improved aeration of the lungs and there is improvement in the bilateral pulm infiltrates noted. The patient has no other active issues. Hemodynamically stable. Curr ently on prednisone burst taper and the patient is also completing her course of remdesivir today. White cell count of 15.4 with a hemoglobin 11.4 and a platelet count of 354. The BUN is at 40 with a creatinine of 0.8 and a sodium levels at 139. Her procalcitonin level has dropped from 3.2 down to 1.38. The patient is likely getting discharged today. She is on Lasix 40 mg p.o. daily. Objective - Vital Signs Vital signs: Vital Signs Temp 98.2 F 05/31/23 09:00 Pulse 79 05/31/23 09:00 Resp 16 05/31/23 09:00 BP 130/65 05/31/23 09:00 Pulse Ox 96 05/31/23 09:00 FiO2 Intake & Output 05/30/23 05/31/23 05/31/23 18:59 06:59 18:59 Intake Total 236 358 Output Total 1600 600 Balance -1364 -242 Weight 52.4 kg Intake: Oral 236 358 Output: Urine 1600 600 Other: Voiding Method Toilet Toilet # Voids 1 1 - Exam GENERAL EXAM: Alert, 82-year-old white female appearing stated age, comfortable in no apparent distress. Patient is currently on room air oxygen HEAD: Normocephalic and atraumatic EYES: Normal reaction of pupils, equal size. NOSE: Clear with pink turbinates. THROAT: No erythema or exudates. NECK: No masses, no JVD. CHEST: No chest wall deformity. LUNGS: Equal air entry with diffuse rhonchi and crackles. no conversational dyspnea or accessory muscle use while at rest CVS: S1 and S2 normal with grade 3 systolic murmur, regular rhythm. No other extra heart sounds ABDOMEN: No hepatosplenomegaly, active bowel sounds, no guarding or rigidity. SPINE: No scoliosis or deformity SKIN: No rashes CENTRAL NERVOUS SYSTEM: No focal deficits, tone is normal in all 4 extremities. EXTREMITIES: There is no peripheral edema, clubbing, or cyanosis. Peripheral pulses are intact. - Labs CBC & Chem 7: 05/31/23 10:19 05/31/23 10:19 Labs: Abnormal Lab Results - Last 24 Hours (Table) 05/30/23 05/30/23 05/31/23 Range/Units 16:48 20:03 10:19 WBC 15.4 H (3.8-10.6) k/uL RBC 3.72 L (3.80-5.40) m/uL MCV 100.2 H (80.0-100.0) fL MCHC 30.6 L (31.0-37.0) g/dL Neutrophils # 12.3 H (1.3-7.7) k/uL Chloride (98-107) mmol/L Carbon Dioxide (22-30) mmol/L BUN (7-17) mg/dL Glucose (74-99) mg/dL POC Glucose (mg/dL) 151 H 197 H (70-110) mg/dL 05/31/23 05/31/23 Range/Units 10:19 11:44 WBC (3.8-10.6) k/uL RBC (3.80-5.40) m/uL MCV (80.0-100.0) fL MCHC (31.0-37.0) g/dL Neutrophils # (1.3-7.7) k/uL Chloride 97 L (98-107) mmol/L Carbon Dioxide 36 H (22-30) mmol/L BUN 40 H (7-17) mg/dL Glucose 116 H (74-99) mg/dL POC Glucose (mg/dL) 120 H (70-110) mg/dL Microbiology - Last 24 Hours (Table) 05/28/23 12:12 Gram Stain - Final Sputum Sputum Culture - Final Assessment and Plan Plan: Acute hypoxemic respiratory failure, currently on room air oxygen Acute COVID-19 related pneumonia with secondary hypoxic respiratory failure. Possibility of superinfection with bacteria is likely with an elevated procalcitonin level although the presentation is more consistent with a viral over bacterial infection. Chest CTA did show scattered airspace opacities throughout bilateral lungs, concerning for multifocal pneumonia. Repeat chest x-ray from yesterday and today shows improvement in the aeration and pulmonary infiltrates although the patient continues to have bilateral persistent pulmonary infiltration and she has not completely recovered. She remains on Rocephin, IV Solu-Medrol and remdesivir day # 5. Clinically much improved and the patient has minimal residual cough. No significant shortness of breath. Chest x-ray from today shows further improvement in the bilateral pulmonary filtrates and the aeration bilaterally. Acute exacerbation of chronic bronchial asthma, secondary to above, improving Shortness of breath secondary to above, improving Elevated procalcitonin level History of coronary artery disease with previous PCI/stent x3 History of hyperlipidemia History of hypertension Present LV function with normal ejection fraction. The patient has moderate to severe mitral calcification and moderate to severe mitral stenosis and mild aortic regurgitation and stenosis. LV function is preserved and the patient has an ejection fraction of 60 to 65%. RA History of hypothyroidism Lifelong non-smoker Plan Patient is currently on room air oxygen Chest x-ray from today shows interval improvement of the bilateral pulm infiltrates Keep the patient on O2 and titrate oxygen flow to maintain saturation above 90%, currently improved and she is down to room air oxygen Completed prednisone burst taper on outpatient basis Completed a total of 5-day course of remdesivir Completed the course of IV antibiotics Monitor procalcitonin level, repeat procalcitonin level has been downtrending Lasix 40 mg p.o. daily Discharged home to be followed up on outpatient basis
--- NOTE | 2023-05-31 16:24 | P.PN ---
Subjective Progress Note Date: 05/31/23 Principal diagnosis: Reason for follow-up is COVID-19 and pneumonia Patient is a 82-year-old female with a past medical history significant for hypertension hyperlipidemia rheumatoid arthritis mitral valve prolapse and heart failure with presenting to the hospital for evaluation of increasing shortness of breath., Patient COVID-19 PCR came back positive CT angiogram chest was negative for PE did shows scattered airspace opacity throughout the lungs concerning for pneumonia. On today's evaluation that is 05/31/2023, the patient continues to be afebrile, the patient is on room air and breathing comfortably, the Pt denies having any chest pain cough has decreased in intensity with occasional sputum production, the patient denies having any abdominal pain no vomiting or any diarrhea, feeling better ready go home. Patient white count is 15.4, creatinine 0.86 Objective - Vital Signs Vital signs: Vital Signs Temp 98.2 F 05/31/23 09:00 Pulse 79 05/31/23 09:00 Resp 16 05/31/23 09:00 BP 130/65 05/31/23 09:00 Pulse Ox 96 05/31/23 09:00 FiO2 Intake & Output 05/30/23 05/31/23 05/31/23 18:59 06:59 18:59 Intake Total 236 240 Output Total 1600 600 Balance -1364 -360 Weight 52.4 kg Intake: Oral 236 240 Output: Urine 1600 600 Other: Voiding Method Toilet Toilet # Voids 1 1 - Exam GENERAL DESCRIPTION: An elderly female lying in bed in no distress RESPIRATORY SYSTEM: Unlabored breathing , clear to auscultation HEART: S1 S2 regular rate and rhythm , ABDOMEN: Soft , no tenderness EXTREMITIES: No edema feet - Labs CBC & Chem 7: 05/31/23 10:19 05/31/23 10:19 Labs: Abnormal Lab Results - Last 24 Hours (Table) 05/30/23 05/30/23 05/31/23 Range/Units 16:48 20:03 10:19 WBC 15.4 H (3.8-10.6) k/uL RBC 3.72 L (3.80-5.40) m/uL MCV 100.2 H (80.0-100.0) fL MCHC 30.6 L (31.0-37.0) g/dL Neutrophils # 12.3 H (1.3-7.7) k/uL Chloride (98-107) mmol/L Carbon Dioxide (22-30) mmol/L BUN (7-17) mg/dL Glucose (74-99) mg/dL POC Glucose (mg/dL) 151 H 197 H (70-110) mg/dL 05/31/23 05/31/23 Range/Units 10:19 11:44 WBC (3.8-10.6) k/uL RBC (3.80-5.40) m/uL MCV (80.0-100.0) fL MCHC (31.0-37.0) g/dL Neutrophils # (1.3-7.7) k/uL Chloride 97 L (98-107) mmol/L Carbon Dioxide 36 H (22-30) mmol/L BUN 40 H (7-17) mg/dL Glucose 116 H (74-99) mg/dL POC Glucose (mg/dL) 120 H (70-110) mg/dL Microbiology - Last 24 Hours (Table) 05/28/23 12:12 Gram Stain - Final Sputum Sputum Culture - Final Assessment and Plan (1) COVID-19 Status: Acute Code(s): U07.1 - COVID-19 SNOMED Code(s): 907092325 (2) Pneumonia Status: Acute Code(s): J18.9 - PNEUMONIA, UNSPECIFIED ORGANISM SNOMED Code(s): 043818439 Plan: 1patient presented hospital with increasing shortness of breath which is likely multifactorial, the patient did have a COVID-19 collected evening of 05/26/2023 that came back positive last night patient also have elevated procalcitonin more likely combination of COVID-19 and possible component of secondary bacterial pneumonia 2patient to complete her 5-day course of remdesivir today, steroids on discha rge on discharge per Pulmonary 3patient has completed 5-day course of Rocephin for possible component of community-acquired pneumonia sputum culture negative for resistant pathogen patient seen doing well off antibiotic today Dictation was produced using [employer] software. please excuse any grammatical, word or spelling errors. Time with Patient: Less than 30
[2023-06-01] MEDS ORDERED: LEVOTHYROXINE 50 MCG TAB PO SCH ×2 (06:30)
--- NOTE | 2023-06-01 23:58 | P.DS ---
Providers Date of admission: 05/26/23 12:32 Expected date of discharge: 05/31/23 Attending physician: Marc Pimentel MD Consults: 05/26/23 13:04 Consult Physician Urgent Consulting Provider: Abbe Freed Consult Reason/Comments: Pneumonia Do you want consulting provider notified?: Yes 05/26/23 13:05 Consult Physician Urgent Consulting Provider: Patricia Patrick Consult Reason/Comments: Pneumonia Do you want consulting provider notified?: Yes Primary care physician: Paul Bonilla [facility] Course: Discharge diagnosis Acute hypoxic respiratory failure requiring oxygen 6 L high flow via nasal cannul->2L -->RA today Acute COVID-19 infection with superimposed bacterial pneumonia. Procalcitonin level is elevated. Completed antibiotic course and 5 days of remdesivir. Continue with prednisone taper. Acute exacerbation of chronic bronchial asthma Coronary artery disease history of stent placement Chronic CHF with diastolic dysfunction. Moderate to severe mitral stenosis and mild aortic regurgitation and stenosis. EF 60 to 65%. Hypothyroidism Hyperlipidemia GI and DVT prophylaxis. On [facility] course 82-year-old female who has a past medical history significant for hypertension, hyperlipidemia, hypothyroidism, coronary artery disease and has had a stent placed, she also is a diabetic and she also has aortic stenosis. Patient comes in today stating that she started having difficulty breathing this morning at about 7:00 she stated that it came on rather quickly. Patient states she felt relatively well yesterday. Patient states initially she had chest pressure that is let up quite a bit at this point in time. Patient denies any fever chills or cough or patient Nuys abdominal pain patient has nausea vomiting diarrhea. Patient Nuys any history of congestive heart failure. Patient denies any history of COPD. Patient states she never smoked. Patient denies any headache patient denies lightheadedness or dizziness. Patient's main complaint now is that she is having significant dyspnea. Patient was put on nonrebreather because when EMS arrived to the house she was oxygenating in high 60s the patient was 87% on arrival to the emergency department and once we got her settled in on a nonrebreather she was 90% Blood work completed in ED reveals a WBC of 24.4, hemoglobin of 12.8 and platelet count of 300, D-dimer elevated at 1.04, sodium 142, potassium 4.2, BUN/creatinine of 15/0.73, AST mildly elevated at 41 BNP of 875, UA is unremarkable Chest x-ray reveals multifocal airspace opacities CTA chest is negative for PE reveals scattered airspace opacities; throughout the lungs with cardiomegaly consistent with multifocal pneumonia with superimposed CHF multiple enlarged lymph nodes are seen throughout the mediastinum; which are slightly larger than previous exams in 2017; given possible infectious process, enlarged lymph nodes could be reactive 05/27/2023 Patient is sitting in the chair. Awake alert and oriented x 3. No complaints of chest pain. Still having shortness of breath and exertional dyspnea. Requiring oxygen at 6 L high flow this morning. Patient has been afebrile. No nausea or vomiting. Tolerating oral diet. Laboratory data showed WBC 18.4 hemoglobin 11.9 and platelets 241 LDH 388 and procalcitonin level is 3.27. Patient is being continued on antibiotics for pneumonia and continue with emma plet and contact precautions. 05/28/2023 Patient is sitting in a chair. Awake alert and oriented x 3. No complaints of chest pain. Still having shortness of breath and exertional dyspnea. Currently on high flow 2 L via nasal cannula. Patient is being continued on IV Solu-Medrol and remdesivir course. Patient is also on antibiotics for possible superimposed bacterial pneumonia. Patient is on DVT prophylax with Lovenox subcu. Repeat chest x-ray showed bilateral pulmonary infiltrates slightly improved compared to yesterday. Patient is also on IV Lasix 40 mg twice daily. Laboratory data showed WBC 22.7 hemoglobin 11.5 and platelets 303 sodium 142 potassium 3.9 chloride 104 bicarb is 27 BUN 26 and creatinine 0.76 and blood sugar 180. A1c level is 6.2 and calcium 8.2. 05/29/2023 Patient is currently sitting in the chair. Feels better. Requiring 2 L oxygen via nasal cannula. No complaints of chest pain . Patient does have exertional dyspnea. No" complaints of fever or chills. No nausea vomiting. Patient is being continued on remdesivir and IV steroids anD Lasix is being changed to p.o. The laboratory data showed WBC 15.3 hemoglobin 11.9 and platelets 264 Sodium 140 potassium 3.6 1200 bicarb is 29 BUN 13 creatinine 0.70 and blood sugar 277 And procalcitonin level 1.33 05/30/2023 Patient is currently sitting in the chair. Able to walk to the bathroom. Shortness of breath is improving. Patient does have cough without sputum production. No chest tightness. No complaints of chest pain. Patient has been afebrile. Oxygen titrated down to room air now. Patient is being continued on remdesivir and IV steroids and breathing treatments. Patient is also on antibiotics for pneumonia Laboratory data showed Sodium 138 potassium 3.9 chloride 101 bicarb 32 BUN 35 and creatinine 0.68 and blood sugar 161 , Calcium 8.8 WBC 12.4 hemoglobin 11.3 and platelets 322 05/31/2023 Patient is sitting in the chair. Awake alert and orient x 3. Currently on room air. No complaints of chest pain. Shortness of breath is much improved. Patient has been afebrile. No nausea vomiting abdominal pain or diarrhea. Minimal cough. No sputum production. Patient did complete antibiotic course while in the hospital. Patient will receive remdesivir IV today 07/13. Continue with prednisone tapering course. Laboratory data showed WBC 15.4 hemoglobin 11.4 and platelets 354 Sodium 139 potassium 3.7 chloride 97 bicarb 36 BUN 14 creatinine 0.86 and blood sugar 116. Patient will need to follow-up with pulmonary and hematology as well as primary care physician. PHYSICAL EXAMINATION: Patient is lying in the bed comfortably, no acute distress, awake alert and oriented.. HEENT: Normocephalic. Neck is supple. Pupils reactive. Nostrils clear. Oral cavity is moist. Neck reveals no JVD, carotid bruits, or thyromegaly. CHEST EXAMINATION: Trachea is central. Symmetrical expansion. Bilateral coarse breath sounds. no wheeze. Nonlabored breathing.. CARDIAC: Normal S1, S2 with no gallops. No murmurs ABDOMEN: Soft. Bowel sounds normal. No organomegaly. No abdominal bruits. Extremities: reveal no edema. No clubbing or cyanosis Neurologically awake, alert, oriented x3 with well-coordinated movements. No focal deficits noted Skin: No rash or skin lesions. Psychiatric: Coperative. Nonsuicidal Musculoskeletal: No joint swelling or deformity. Normal range of motion. Vital signs: Vital Signs Temp 98.2 F 05/31/23 09:00 Pulse 79 05/31/23 09:00 Resp 16 05/31/23 09:00 BP 130/65 05/31/23 09:00 Pulse Ox 96 05/31/23 09:00 FiO2 Intake & Output 05/30/23 05/31/23 05/31/23 18:59 06:59 18:59 Intake Total 236 358 Output Total 1600 600 Balance -1364 -242 Weight 52.4 kg Intake: Oral 236 358 Output: Urine 1600 600 Other: Voiding Method Toilet Toilet # Voids 1 1 - Patient Condition at Discharge: Stable Plan - Discharge Summary Discharge Rx Participant: No New Discharge Prescriptions: New predniSONE See Taper PO DIRECTED #30 tab Albuterol Inhaler [Ventolin Hfa Inhaler] 2 puff INHALATION RT-QID PRN #1 each PRN Reason: Shortness Of Breath Continue Omeprazole 20 mg PO DAILY Multivit-Min/FA/Lycopen/Lutein [Centrum Silver Tablet] 1 tab PO DAILY Budesonide-Formot 160-4.5 Mcg [Symbicort 160-4.5 Mcg Inhaler] 2 puff INHALATION RT-BID #1 inhaler modafiniL [Provigil] 200 mg PO DAILY PRN PRN Reason: excessive sleepiness Isosorbide Mononitrate ER [Imdur] 30 mg PO DAILY 30 Days #30 tab Levothyroxine Sodium [Synthroid] 56 mcg PO SUSA Empagliflozin [Jardiance] 10 mg PO DAILY Metoprolol Succinate (ER) [Toprol XL] 100 mg PO DAILY Acetaminophen [Tylenol Arthritis] 650 mg PO Q8HR PRN PRN Reason: Pain Zinc 200mg 200 mg PO DAILY Calcium Carbonate [Calcium] 600 mg PO DAILY Aspirin 81 mg PO AC-BRKFST Magnesium Oxide [Darden] 500 mg PO DAILY Levothyroxine Sodium [Synthroid] 112 mcg PO MOTUWETH Cholecalciferol [Vitamin D3 (25 Mcg = 1000 Iu)] 50 mcg PO DAILY Montelukast [Singulair] 10 mg PO HS Alendronate Sodium [Fosamax] 70 mg PO MO ALPRAZolam [Xanax] 0.25 mg PO Q8HR PRN PRN Reason: Anxiety Ascorbic Acid [Vitamin C] 1,000 mg PO DAILY Verapamil HCl [Verapamil ER PM] 1 cap PO DAILY Atorvastatin [Lipitor] 80 mg PO DAILY Furosemide [Lasix] 40 mg PO DAILY Discharge Medication List Multivit-Min/FA/Lycopen/Lutein [Centrum Silver Tablet] 1 tab PO DAILY 03/29/16 [History] Omeprazole 20 mg PO DAILY 03/29/16 [History] Budesonide-Formot 160-4.5 Mcg [Symbicort 160-4.5 Mcg Inhaler] 2 puff INHALATION RT-BID #1 inhaler 04/06/16 [Rx] Alendronate Sodium [Fosamax] 70 mg PO MO 08/09/21 [History] Cholecalciferol [Vitamin D3 (25 Mcg = 1000 Iu)] 50 mcg PO DAILY 08/09/21 [History] Levothyroxine Sodium [Synthroid] 112 mcg PO MOTUWETHFR 08/09/21 [History] Magnesium Oxide [Darden] 500 mg PO DAILY 08/09/21 [History] Montelukast [Singulair] 10 mg PO HS 08/09/21 [History] ALPRAZolam [Xanax] 0.25 mg PO Q8HR PRN 10/06/21 [History] modafiniL [Provigil] 200 mg PO DAILY PRN 10/06/21 [History] Isosorbide Mononitrate ER [Imdur] 30 mg PO DAILY 30 Days #30 tab 10/09/21 [Rx] Acetaminophen [Tylenol Arthritis] 650 mg PO Q8HR PRN 03/19/22 [History] Empagliflozin [Jardiance] 10 mg PO DAILY 03/19/22 [History] Levothyroxine Sodium [Synthroid] 56 mcg PO SUSA 03/19/22 [History] Metoprolol Succinate (ER) [Toprol XL] 100 mg PO DAILY 03/19/22 [History] Ascorbic Acid [Vitamin C] 1,000 mg PO DAILY 05/26/23 [History] Aspirin 81 mg PO AC-BRKFST 05/26/23 [History] Atorvastatin [Lipitor] 80 mg PO DAILY 05/26/23 [History] Calcium Carbonate [Calcium] 600 mg PO DAILY 05/26/23 [History] Furosemide [Lasix] 40 mg PO DAILY 05/26/23 [History] Verapamil HCl [Verapamil ER PM] 1 cap PO DAILY 05/26/23 [History] Zinc 200mg 200 mg PO DAILY 05/26/23 [History] Albuterol Inhaler [Ventolin Hfa Inhaler] 2 puff INHALATION RT-QID PRN #1 each 05/31/23 [Rx] predniSONE See Taper PO DIRECTED #30 tab 05/31/23 [Rx] Follow up Appointment(s)/Referral(s): Abbe Freed DO [Doctor of Osteopathic Medicine] - 06/18/23 1:30 pm Paul Bonilla DO [Primary Care Provider] - 06/05/23 3:00 pm (To call office for a telehealth visit.) Patient Instructions/Handouts: COVID-19 (Coronavirus Disease 2019) (DC) Discharge Disposition: HOME SELF-CARE
== END 2023-05-31 15:31 | disposition home or self-care (01) | DRG 871 ==
LOC: EC 09:39 → 3SCARD 12:32
PROVIDERS: ADMIT Internal Medicine; ATTEND Internal Medicine
PROC: 8E0ZXY6 Isolation (ICD-10-PCS; principal; 2023-05-26)
PROC: XW033E5 Introduction of Remdesivir Anti-infective into Peripheral Vein, Percutaneous Approach, New Technology Group 5 (ICD-10-PCS; 2023-05-27)
DX: A41.89 Other specified sepsis (principal); J12.82 Pneumonia due to coronavirus disease 2019; U07.1 COVID-19; J96.01 Acute respiratory failure with hypoxia; J15.9 Unspecified bacterial pneumonia; I50.32 Chronic diastolic (congestive) heart failure; J45.901 Unspecified asthma with (acute) exacerbation; I27.20 Pulmonary hypertension, unspecified; M06.9 Rheumatoid arthritis, unspecified; I11.0 Hypertensive heart disease with heart failure; I25.10 Atherosclerotic heart disease of native coronary artery without angina pectoris; E11.9 Type 2 diabetes mellitus without complications; E78.5 Hyperlipidemia, unspecified; E03.9 Hypothyroidism, unspecified; I08.0 Rheumatic disorders of both mitral and aortic valves; I49.3 Ventricular premature depolarization; Z96.651 Presence of right artificial knee joint; Z88.1 Allergy status to other antibiotic agents; Z88.8 Allergy status to other drugs, medicaments and biological substances; Z88.0 Allergy status to penicillin; Z95.5 Presence of coronary angioplasty implant and graft; Z79.899 Other long term (current) drug therapy; Z79.890 Hormone replacement therapy; Z79.84 Long term (current) use of oral hypoglycemic drugs; Z79.83 Long term (current) use of bisphosphonates; Z79.82 Long term (current) use of aspirin; Z79.51 Long term (current) use of inhaled steroids; I25.2 Old myocardial infarction
CPT/HCPCS: 36415; 71045; 71046; 71275; 80048; 80053; 81003; 83036; 83605; 83615; 83735; 83880; 84132; 84145; 84484; 85025; 85379; 85610; 85730; 87040; 87070; 87205; 87449; 87636; 93005; 93306; 94640; 94760; 96374; 96375; 99291

== ENCOUNTER 2023-06-09 07:20 | Inpatient (IN) | payer MEDICARE, BC ==
--- NOTE | 2023-06-09 07:35 | ED ---
General Adult HPI - General Chief complaint: Shortness of Breath Stated complaint: LEX Time Seen by Provider: 06/09/23 07:22 Source: patient, EMS, RN notes reviewed Mode of arrival: EMS Limitations: no limitations - History of Present Illness Initial comments: Patient is a pleasant 82-year-old female present to the emergency department with difficulty breathing. Onset was yesterday. Patient has had a cough for over a week. Patient has occasional yellow sputum. Patient did have COVID-19 pneumonia couple weeks ago and was in the hospital and discharged home. Patient is unaware of any fevers at home. Patient has chronic interstitial lung diseas e. - Related Data Home Medications Medication Instructions Recorded Confirmed Multivit-Min/FA/Lycopen/Lutein 1 tab PO DAILY 03/29/16 06/09/23 [Centrum Silver Tablet] Omeprazole 20 mg PO DAILY 03/29/16 06/09/23 Alendronate Sodium [Fosamax] 70 mg PO MO 08/09/21 06/09/23 Cholecalciferol [Vitamin D3 (25 50 mcg PO DAILY 08/09/21 06/09/23 Mcg = 1000 Iu)] Levothyroxine Sodium [Synthroid] 112 mcg PO MOTUWETHFR 08/09/21 06/09/23 Magnesium Oxide [Darden] 500 mg PO DAILY 08/09/21 06/09/23 Montelukast [Singulair] 10 mg PO HS 08/09/21 06/09/23 ALPRAZolam [Xanax] 0.25 mg PO Q8HR PRN 10/06/21 06/09/23 modafiniL [Provigil] 200 mg PO DAILY PRN 10/06/21 06/09/23 Acetaminophen [Tylenol Arthritis] 650 mg PO Q8HR PRN 03/19/22 06/09/23 Empagliflozin [Jardiance] 10 mg PO DAILY 03/19/22 06/09/23 Levothyroxine Sodium [Synthroid] 56 mcg PO SUSA 03/19/22 06/09/23 Metoprolol Succinate (ER) [Toprol 100 mg PO DAILY 03/19/22 06/09/23 XL] Ascorbic Acid [Vitamin C] 1,000 mg PO DAILY 05/26/23 06/09/23 Aspirin 81 mg PO AC-BRKFST 05/26/23 06/09/23 Atorvastatin [Lipitor] 80 mg PO DAILY 05/26/23 06/09/23 Calcium Carbonate [Calcium] 600 mg PO DAILY 05/26/23 06/09/23 Furosemide [Lasix] 40 mg PO DAILY 05/26/23 06/09/23 Verapamil HCl [Verapamil ER PM] 1 cap PO DAILY 05/26/23 06/09/23 Zinc 200mg 200 mg PO DAILY 05/26/23 06/09/23 Previous Rx's Medication Instructions Recorded Budesonide-Formot 160-4.5 Mcg 2 puff INHALATION RT-BID #1 inhaler 04/06/16 [Symbicort 160-4.5 Mcg Inhaler] Isosorbide Mononitrate ER [Imdur] 30 mg PO DAILY 30 Days #30 tab 10/09/21 Albuterol Inhaler [Ventolin Hfa 2 puff INHALATION RT-QID PRN #1 05/31/23 Inhaler] each predniSONE See Taper PO DIRECTED #30 tab 05/31/23 Allergies Allergy/AdvReac Type Severity Reaction Status Date / Time clarithromycin [From Biaxin] Allergy Unknown Verified 06/09/23 09:06 gemifloxacin [From Factive] Allergy Unknown Verified 06/09/23 09:06 prednisone Allergy Unknown Verified 06/09/23 09:06 amoxicillin [From Augmentin] AdvReac Nausea & Verified 06/09/23 09:06 Vomiting & Diarrhea clavulanic acid AdvReac Nausea & Verified 06/09/23 09:06 [From Augmentin] Vomiting & Diarrhea Review of Systems ROS Statement: Those systems with pertinent positive or pertinent negative responses have been documented in the HPI. ROS Other: All systems not noted in ROS Statement are negative. Constitutional: Reports: as per HPI Eyes: Denies: eye pain ENT: Denies: ear pain Respiratory: Reports: as per HPI, cough, dyspnea Cardiovascular: Denies: chest pain Endocrine: Denies: fatigue Gastrointestinal: Denies: abdominal pain Genitourinary: Denies: dysuria Musculoskeletal: Denies: back pain Past Medical History Past Medical History: Heart Failure, Hyperlipidemia, Hypertension, Mitral Valve Prolapse (MVP), Rheumatoid Arthritis (RA), Thyroid Disorder Additional Past Medical History / Comment(s): HAD A PNE VACCINE AFTER AGE 67 BUT NOT SURE OF DATE,OFFICE CLOSED AT TIME OF THIS ADMIT. Last Myocardial Infarction Date:: History of Any Multi-Drug Resistant Organisms: None Reported Past Surgical History: Section, Orthopedic Surgery Additional Past Surgical History / Comment(s): total right knee replacement Past Anesthesia/Blood Transfusion Reactions: No Reported Reaction Additional Past Anesthesia/Blood Transfusion Reaction / Comment(s): c lausterphobia Past Psychological History: No Psychological Hx Reported Smoking Status: Never smoker Past Alcohol Use History: Occasional Past Drug Use History: None Reported - Past Family History Father Additional Family Medical History / Comment(s): smoker-had problems related to that Mother Additional Family Medical History / Comment(s): smoker-problems related to that General Exam Limitations: no limitations General appearance: alert, in no apparent distress Head exam: Present: normocephalic Eye exam: Present: normal appearance Neck exam: Present: normal inspection Respiratory exam: Present: wheezes, decreased breath sounds Cardiovascular Exam: Present: regular rate, normal rhythm GI/Abdominal exam: Present: soft. Absent: tenderness Extremities exam: Present: normal inspection. Absent: pedal edema, calf tenderness Neurological exam: Present: alert Psychiatric exam: Present: normal affect, normal mood Skin exam: Present: normal color Course Vital Signs 06/09/23 06/09/23 06/09/23 07:25 07:29 07:30 Temperature 99.7 F H Pulse Rate 100 Respiratory 18 17 Rate Blood Pressure 107/58 O2 Sat by Pulse 90 L 96 Oximetry 06/09/23 06/09/23 06/09/23 08:10 08:39 08:48 Temperature 99.1 F Pulse Rate 91 87 88 Respiratory 17 Rate Blood Pressure 101/47 O2 Sat by Pulse 95 Oximetry 06/09/23 09:00 Temperature 98.2 F Pulse Rate 89 Respiratory 20 Rate Blood Pressure 111/49 O2 Sat by Pulse 95 Oximetry EKG Findings - EKG Results: EKG: interpreted by ERMD (Left axis. Septal Q waves.), sinus rhythm, normal ST/T Medical Decision Making - Medical Decision Making Was pt. sent in by a medical professional or institution (, PA, DONOR FLOOR TECHNICIAN, urgent ca re, hospital, or jail...) When possible be specific @ -No Did you speak to anyone other than the patient for history (EMS, parent, family, police, friend...)? What history was obtained from this source @ -Family is present and also provides history including recent admission for COVID-19 Did you review nursing and triage notes (agree or disagree)? Why? @ -I reviewed and agree with nursing and triage notes Were old charts reviewed (outside hosp., previous admission, EMS record, old EKG, old radiological studies, urgent care reports/EKG's, jail records)? Report findings @ -Previous chest x-ray reviewed Differential Diagnosis (chest pain, altered mental status, abdominal pain women, abdominal pain men, vaginal bleeding, weakness, fever, dyspnea, syncope, headache, dizziness, GI bleed, back pain, seizure, CVA, palpatations, mental health, musculoskeletal)? @ -Differential Dyspnea: Coronary syndrome, arrhythmia, tamponade, asthma, COPD, pulmonary embolism, pneumonia, pneumothorax, pulmonary effusion, anaphylaxis, diabetic ketoacidosis, flailed chest, pulmonary contusion, diaphragmatic rupture, anemia, neuromuscular, this is not meant to be an all-inclusive list. EKG interpreted by me (3pts min.). @ -As above X-rays interpreted by me (1pt min.). @ -This x-ray shows diffuse interstitial changes CT interpreted by me (1pt min.). @ -None done U/S interpreted by me (1pt. min.). @ -None done What testing was considered but not performed or refused? (CT, X-rays, U/S, labs)? Why? @ -None What meds were considered but not given or refused? Why? @ -None Did you discuss the management of the patient with other professionals (professionals i.e. , PA, DONOR FLOOR TECHNICIAN, lab, RT, psych nurse, social worker aide, block out machine operator, teacher, quarantine officer, case checker)? Give summary @ -Case discussed with Dr. Crowe who did come and evaluate patient. Case also discussed with Dr. Thurston who will admit covering Dr. Bonilla Was smoking cessation discussed for >3mins.? @ -No Was critical care preformed (if so, how long)? @ -31 minutes critical care Were there social determinants of health that impacted care today? How? (Homelessness, low income, unemployed, alcoholism, drug addiction, transportation, low edu. Level, literacy, decrease access to med. care, usp, rehab)? @ -No Was there de-escalation of care discussed even if they declined (Discuss DNR or withdrawal of care, Hospice)? DNR status @ -No What co-morbidities impacted this encounter? (DM, HTN, Smoking, COPD, CAD, Cancer, CVA, ARF, Chemo, Hep., AIDS, mental health diagnosis, sleep apnea, morbid obesity)? @ -Underlying interstitial lung disease Was patient admitted / discharged? Hospital course, mention meds given and route, prescriptions, significant lab abnormalities, going to OR and other pertinent info. @ -There is concern for sepsis pneumonia diagnosed at 9:35 AM. Blood culture and lactic acid and IV antibiotics have all been ordered. Patient reevaluated and updated. Patient has diffuse interstitial changes with recent COVID-19 infection and hypoxia. Patient will be admitted with oxygen. Admission orders written. Undiagnosed new problem with uncertain prognosis? @ -No Drug Therapy requiring intensive monitoring for toxicity (Heparin, Nitro, Insulin, Cardizem)? @ -No Were any procedures done? @ -No Diagnosis/symptom? @ -COVID-19, pneumonia, sepsis Acute, or Chronic, or Acute on Chronic? @ -Acute on chronic, acute, acute Uncomplicated (without systemic symptoms) or Complicated (systemic symptoms)? @ -Default Side effects of treatment? @ -No Exacerbation, Progression, or Severe Exacerbation? @ -No Poses a threat to life or bodily function? How? (Chest pain, USA, NC, pneumonia, PE, COPD, DKA, ARF, appy, cholecystitis, CVA, Diverticulitis, Homicidal, Suicidal, threat to staff... and all critical care pts) @ -No - Lab Data Result diagrams: 06/09/23 07:59 06/09/23 07:59 Lab Results 06/09/23 06/09/23 06/09/23 Range/Units 07:59 07:59 07:59 WBC 16.9 H (3.8-10.6) k/uL RBC 3.20 L (3.80-5.40) m/uL Hgb 10.2 L (11.4-16.0) gm/dL Hct 31.9 L (34.0-46.0) % MCV 99.7 (80.0-100.0) fL MCH 31.8 (25.0-35.0) pg MCHC 31.9 (31.0-37.0) g/dL RDW 15.2 (11.5-15.5) % Plt Count 265 (150-450) k/uL MPV 8.3 Neutrophils % 91 % Lymphocytes % 4 % Monocytes % 4 % Eosinophils % 1 % Basophils % 0 % Neutrophils # 15.3 H (1.3-7.7) k/uL Lymphocytes # 0.7 L (1.0-4.8) k/uL Monocytes # 0.7 (0-1.0) k/uL Eosinophils # 0.1 (0-0.7) k/uL Basophils # 0.0 (0-0.2) k/uL Hypochromasia Slight Macrocytosis Slight PT 11.0 (10.0-12.5) sec INR 1.0 (<1.2) APTT 22.8 (22.0-30.0) sec Sodium 137 (137-145) mmol/L Potassium 4.1 (3.5-5.1) mmol/L Chloride 103 (98-107) mmol/L Carbon Dioxide 29 (22-30) mmol/L Anion Gap 5 mmol/L BUN 21 H (7-17) mg/dL Creatinine 0.51 L (0.52-1.04) mg/dL Est GFR (CKD-EPI)AfAm >90 (>60 ml/min/1.73 sqM) Est GFR (CKD-EPI)NonAf >90 (>60 ml/min/1.73 sqM) Glucose 96 (74-99) mg/dL Plasma Lactic Acid Gabriel (0.7-2.0) mmol/L Calcium 8.3 L (8.4-10.2) mg/dL Magnesium 2.0 (1.6-2.3) mg/dL Total Bilirubin 1.2 (0.2-1.3) mg/dL AST 69 H (14-36) U/L ALT 41 H (4-34) U/L Alkaline Phosphatase 62 (38-126) U/L NT-Pro-B Natriuret Pep 2430 pg/mL Total Protein 5.9 L (6.3-8.2) g/dL Albumin 2.7 L (3.5-5.0) g/dL 06/09/23 Range/Units 07:59 WBC (3.8-10.6) k/uL RBC (3.80-5.40) m/uL Hgb (11.4-16.0) gm/dL Hct (34.0-46.0) % MCV (80.0-100.0) fL MCH (25.0-35.0) pg MCHC (31.0-37.0) g/dL RDW (11.5-15.5) % Plt Count (150-450) k/uL MPV Neutrophils % % Lymphocytes % % Monocytes % % Eosinophils % % Basophils % % Neutrophils # (1.3-7.7) k/uL Lymphocytes # (1.0-4.8) k/uL Monocytes # (0-1.0) k/uL Eosinophils # (0-0.7) k/uL Basophils # (0-0.2) k/uL Hypochromasia Macrocytosis PT (10.0-12.5) sec INR (<1.2) APTT (22.0-30.0) sec Sodium (137-145) mmol/L Potassium (3.5-5.1) mmol/L Chloride (98-107) mmol/L Carbon Dioxide (22-30) mmol/L Anion Gap mmol/L BUN (7-17) mg/dL Creatinine (0.52-1.04) mg/dL Est GFR (CKD-EPI)AfAm (>60 ml/min/1.73 sqM) Est GFR (CKD-EPI)NonAf (>60 ml/min/1.73 sqM) Glucose (74-99) mg/dL Plasma Lactic Acid Gabriel 1.1 (0.7-2.0) mmol/L Calcium (8.4-10.2) mg/dL Magnesium (1.6-2.3) mg/dL Total Bilirubin (0.2-1.3) mg/dL AST (14-36) U/L ALT (4-34) U/L Alkaline Phosphatase (38-126) U/L NT-Pro-B Natriuret Pep pg/mL Total Protein (6.3-8.2) g/dL Albumin (3.5-5.0) g/dL Critical Care Time Critical Care Time: Yes Total Critical Care Time: 31 Disposition Clinical Impression: Sepsis, Pneumonia, COVID-19 Disposition: ADMITTED IP TO THIS HOSP Condition: Serious Is patient prescribed a controlled substance at d/c from ED?: No Referrals: Paul Bonilla DO [Primary Care Provider] - 1-2 days Time of Disposition: 09:39
[2023-06-09 08:10] LABS: Basophils % (A) 0 %; Eosinophils # (A) 0.1 k/uL (0-0.7); Eosinophils % (A) 1 %; HCT 31.9 % (34.0-46.0); HGB 10.2 gm/dL (11.4-16.0); Hypochromasia Slight; Lymphocytes # (A) 0.7 k/uL (1.0-4.8); Lymphocytes % (A) 4 %; MCH 31.8 pg (25.0-35.0); MCHC 31.9 g/dL (31.0-37.0); MCV 99.7 fL (80.0-100.0); Macrocytosis Slight; Mean Platelet Volume 8.3; Monocytes # (A) 0.7 k/uL (0-1.0); Monocytes % (A) 4 %; Neutrophils # (A) 15.3 k/uL (1.3-7.7); Neutrophils % (A) 91 %; Platelet Count 265 k/uL (150-450); RDW 15.2 % (11.5-15.5); WBC 16.9 k/uL (3.8-10.6)
[2023-06-09] MEDS: ACETAMINOPHEN TAB 325 MG TAB PO STA (08:12)
[2023-06-09] MEDS: methylPREDNISolone SOD SUCCI 125 MG/2 ML VIAL IV STA (08:13)
[2023-06-09 08:20] LABS: ALT 41 U/L (4-34); AST 69 U/L (14-36); African American GFR (CKD) >90 (>60 ml/min/1.73 sqM); Albumin 2.7 g/dL (3.5-5.0); Alkaline Phosphatase 62 U/L (38-126); Anion Gap 5 mmol/L; Blood Urea Nitrogen 21 mg/dL (7-17); Calcium 8.3 mg/dL (8.4-10.2); Carbon Dioxide 29 mmol/L (22-30); Chloride 103 mmol/L (98-107); Glucose 96 mg/dL (74-99); Non-African American GFR(CKD) >90 (>60 ml/min/1.73 sqM); Sodium 137 mmol/L (137-145); Total Bilirubin 1.2 mg/dL (0.2-1.3); Total Protein 5.9 g/dL (6.3-8.2)
[2023-06-09 08:28] LABS: NT-Pro-B-Type Natriuretic Pept 2430 pg/mL
[2023-06-09 08:35] LABS: Potassium 4.1 mmol/L (3.5-5.1)
[2023-06-09] MEDS: IPRATROPIUM-ALBUTEROL 3 ML NEB INHALATION STA (08:38)
--- NOTE | 2023-06-09 08:58 | XR ---
EXAMINATION TYPE: XR chest 2V DATE OF EXAM: 06/09/2023 COMPARISON: 05/31/2023 INDICATION: Difficulty breathing, covid TECHNIQUE: Frontal and lateral views of the chest are obtained. FINDINGS: The heart size is normal. The pulmonary vasculature is indistinct. There is patchy infiltrates throughout bilateral lung stoll. Findings can be compatible with atypica l pneumonia.. IMPRESSION: 1. Patchy bilateral lung infiltrates which can be compatible with atypical pneumonia.
[2023-06-09] MEDS: FUROSEMIDE 10 MG/ML 4 ML VIAL IV STA (09:05)
[2023-06-09 09:06] LABS: Partial Thromboplastin Time 22.8 sec (22.0-30.0)
[2023-06-09] MEDS: CEFEPIME 1 GM in SODIUM CHLORIDE 0.9% 50 ML IVPB STA (09:15)
[2023-06-09] MEDS: VANCOMYCIN 1,000 MG in SODIUM CHLORIDE 0.9% 250 ML IVPB STA (09:20)
[2023-06-09] MEDS ORDERED: IPRATROPIUM-ALBUTEROL 3 ML NEB INHALATION PRN (09:40)
[2023-06-09] MEDS ORDERED: PNEUMONIA PROTOCOL UTILIZED 1 EACH MISC PO PRN (09:40)
[2023-06-09] MEDS: SODIUM CHLORIDE 0.9% 1,000 ML IV SCH (09:49)
[2023-06-09] MEDS: IPRATROPIUM-ALBUTEROL 3 ML NEB INHALATION SCH (11:11)
[2023-06-09] MEDS: METOPROLOL SUCCINATE (ER) 100 MG TAB.ER.24H PO SCH (12:19)
[2023-06-09] MEDS: ZINC SULFATE 220 MG CAP PO SCH (12:19)
[2023-06-09] MEDS: ATORVASTATIN 80 MG TAB PO SCH (12:19)
[2023-06-09] MEDS: LEVOTHYROXINE 112 MCG TAB PO SCH (12:19)
[2023-06-09] MEDS: PANTOPRAZOLE 40 MG TABLET PO SCH (12:19)
[2023-06-09] MEDS: ISOSORBIDE MONONITRATE ER 30 MG TAB.ER.24H PO SCH (12:19)
[2023-06-09] MEDS: methylPREDNISolone SOD SUCCI 125 MG/2 ML VIAL IV SCH (12:20)
[2023-06-09] MEDS: MAGNESIUM OXIDE 400 MG TAB PO SCH (12:20)
--- NOTE | 2023-06-09 13:38 | P.CNPUL ---
History of Present Illness Consult date: 06/09/23 Requesting physician: Lincoln Duron Reason for consult: dyspnea, COPD, pulmonary fibrosis, abnormal CXR/CT Chief complaint: Shortness of breath, cough, congestion History of present illness: This is a very pleasant 82-year-old female patient with a known history of chronic bronchial asthma, mitral valve prolapse, hypertension, hyperlipidemia, CAD with previous stent, and a lifelong non-smoker. She was just recently discharged from here on the 2023 after being treated for COVID-19 pneumonia . She did received remdesivir, bronchodilators and steroids. She is presented back to the emergency room this morning June 09, 2023 with complaints of increasing shortness of breath cough and congestion that started last evening. She did utilize her 's home oxygen without much improvement. She herself is not on home oxygen. X-ray shows patchy bilateral lung infiltrates compatible with atypical pneumonia possibly ongoing COVID-pneumonia. Suspect some underlying interstitial lung disease as well. White count 16.9. Hemoglobin 10.2. Platelets 265. Sodium 137. Potassium 4.1. Bicarb 29. BUN 21. Creatinine 0.51. proBNP 2430. AST 69. ALT 41. Procalcitonin 0.12. She is seen today in the emergency room in consultation. She is sitting up in the stretcher. Awake and alert in no acute distress. Maintaining O2 saturations in the upper 90s on 2 L/min per nasal cannula. She is afebrile. Hemodynamically stable. Review of Systems REVIEW OF SYSTEMS: CONSTITUTIONAL: Denies any recent significant weight loss or weight gain. EYES: Denies change in vision. EARS, NOSE, MOUTH, THROAT: Denies headaches, denies sore throat. CARDIOVASCULAR: Denies chest pain, palpitations or syncopal episodes. RESPIRATORY: Positive for shortness of breath, cough, congestion no hemoptysis. GASTROINTESTINAL: Denies change in appetite, denies abdominal pain GENITOURINARY: Denies hematuria, denies infections. MUSKULOSKELETAL: Denies pain, denies swelling. INTEGUMENTARY: Denies rash, denies eczema. NEUROLOGICAL: Denies recent memory loss, no recent seizure activity. PSYCHIATRIC: Denies anxiety, denies depression. HEMATOLOGIC/LYMPHATIC: Denies anemia, denies enlarged lymph nodes. Past Medical History Past Medical History: Heart Failure, Hyperlipidemia, Hypertension, Mitral Valve Prolapse (MVP), Rheumatoid Arthritis (RA), Thyroid Disorder Additional Past Medical History / Comment(s): HAD A PNE VACCINE AFTER AGE 67 BUT NOT SURE OF DATE,OFFICE CLOSED AT TIME OF THIS ADMIT. Last Myocardial Infarction Date:: History of Any Multi-Drug Resistant Organisms: None Reported Past Surgical History: Section, Orthopedic Surgery Additional Past Surgical History / Comment(s): total right knee replacement Past Anesthesia/Blood Transfusion Reactions: No Reported Reaction Additional Past Anesthesia/Blood Transfusion Reaction / Comment(s): clausterphobia Past Psychological History: No Psychological Hx Reported Smoking Status: Never smoker Past Alcohol Use History: Occasional Past Drug Use History: None Reported - Past Family History Father Additional Family Medical History / Comment(s): smoker-had problems related to that Mother Additional Family Medical History / Comment(s): smoker-problems related to that Medications and Allergies Home Medications Medication Instructions Recorded Confirmed Type Multivit-Min/FA/Lycopen/Lutein 1 tab PO DAILY 03/29/16 06/09/23 History [Centrum Silver Tablet] Omeprazole 20 mg PO DAILY 03/29/16 06/09/23 History Budesonide-Formot 160-4.5 Mcg 2 puff INHALATION RT-BID #1 inhaler 04/06/16 06/09/23 Rx [Symbicort 160-4.5 Mcg Inhaler] Alendronate Sodium [Fosamax] 70 mg PO MO 08/09/21 06/09/23 History Cholecalciferol [Vitamin D3 (25 50 mcg PO DAILY 08/09/21 06/09/23 History Mcg = 1000 Iu)] Levothyroxine Sodium [Synthroid] 112 mcg PO MOTUWETHFR 08/09/21 06/09/23 History Magnesium Oxide [Darden] 500 mg PO DAILY 08/09/21 06/09/23 History Montelukast [Singulair] 10 mg PO HS 08/09/21 06/09/23 History ALPRAZolam [Xanax] 0.25 mg PO Q8HR PRN 10/06/21 06/09/23 History modafiniL [Provigil] 200 mg PO DAILY PRN 10/06/21 06/09/23 History Isosorbide Mononitrate ER [Imdur] 30 mg PO DAILY 30 Days #30 tab 10/09/21 06/09/23 Rx Acetaminophen [Tylenol Arthritis] 650 mg PO Q8HR PRN 03/19/22 06/09/23 History Empagliflozin [Jardiance] 10 mg PO DAILY 03/19/22 06/09/23 History Levothyroxine Sodium [Synthroid] 56 mcg PO SUSA 03/19/22 06/09/23 History Metoprolol Succinate (ER) [Toprol 100 mg PO DAILY 03/19/22 06/09/23 History XL] Ascorbic Acid [Vitamin C] 1,000 mg PO DAILY 05/26/23 06/09/23 History Aspirin 81 mg PO AC-BRKFST 05/26/23 06/09/23 History Atorvastatin [Lipitor] 80 mg PO DAILY 05/26/23 06/09/23 History Calcium Carbonate [Calcium] 600 mg PO DAILY 05/26/23 06/09/23 History Furosemide [Lasix] 40 mg PO DAILY 05/26/23 06/09/23 History Verapamil HCl [Verapamil ER PM] 1 cap PO DAILY 05/26/23 06/09/23 History Zinc 200mg 200 mg PO DAILY 05/26/23 06/09/23 History Albuterol Inhaler [Ventolin Hfa 2 puff INHALATION RT-QID PRN #1 05/31/23 06/09/23 Rx Inhaler] each predniSONE See Taper PO DIRECTED #30 tab 05/31/23 06/09/23 Rx Allergies Allergy/AdvReac Type Severity Reaction Status Date / Time clarithromycin [From Biaxin] Allergy Unknown Verified 06/09/23 09:06 gemifloxacin [From Factive] Allergy Unknown Verified 06/09/23 09:06 prednisone Allergy Unknown Verified 06/09/23 09:06 amoxicillin [From Augmentin] AdvReac Nausea & Verified 06/09/23 09:06 Vomiting & Diarrhea clavulanic acid AdvReac Nausea & Verified 06/09/23 09:06 [From Augmentin] Vomiting & Diarrhea Physical Exam Vitals: Vital Signs Temp Pulse Resp BP Pulse Ox 06/09/23 12:18 99.0 F 85 17 107/55 97 06/09/23 11:22 87 06/09/23 11:11 84 94 L 06/09/23 10:01 83 17 95/54 97 06/09/23 09:00 98.2 F 89 20 111/49 97 06/09/23 08:48 88 06/09/23 08:39 87 06/09/23 08:10 99.1 F 91 17 101/47 95 06/09/23 07:30 17 06/09/23 07:29 96 06/09/23 07:25 99.7 F H 100 18 107/58 90 L Intake and Output 06/08/23 06/09/23 06/09/23 22:59 06:59 14:59 Other: Weight 49.442 kg GENERAL EXAM: Alert, pleasant 82-year-old female, on 2 L nasal cannula,, comfortable in no apparent distress. HEAD: Normocephalic. EYES: Normal reaction of pupils, equal size. NOSE: Clear with pink turbinates. THROAT: No erythema or exudates. NECK: No masses, no JVD. CHEST: No chest wall deformity. LUNGS: Equal air entry with coarse crackles in the bilateral bases. CVS: S1 and S2 normal with no audible murmur, regular rhythm. ABDOMEN: No hepatosplenomegaly, normal bowel sounds, no guarding or rigidity. SPINE: No scoliosis or deformity SKIN: No rashes CENTRAL NERVOUS SYSTEM: No focal deficits, tone is normal in all 4 extremities. EXTREMITIES: There is no peripheral edema. No clubbing, no cyanosis. Peripher al pulses are intact. Results - Laboratory Findings CBC and BMP: 06/09/23 07:59 06/09/23 07:59 PT/INR, D-dimer PT 11.0 sec (10.0-12.5) 06/09/23 07:59 INR 1.0 (<1.2) 06/09/23 07:59 Abnormal lab findings: Abnormal Labs 06/09/23 06/09/23 06/09/23 07:59 07:59 07:59 WBC 16.9 H RBC 3.20 L Hgb 10.2 L Hct 31.9 L Neutrophils # 15.3 H Lymphocytes # 0.7 L BUN 21 H Creatinine 0.51 L Calcium 8.3 L AST 69 H ALT 41 H Total Protein 5.9 L Albumin 2.7 L Procalcitonin 0.12 H - Diagnostic Findings Chest x-ray: image reviewed Assessment and Plan Assessment: Acute hypoxic respiratory failure secondary to possible hospital-acquired pneumonia versus ongoing/worsening COVID-19 pneumonia and chronic bronchial asthma. Procalcitonin 0.12 Acute exacerbation of mild intermittent chronic bronchial asthma Recent discharge on May 31, 2023 for COVID-19 pneumonia, treated with remdesivir Possible underlying interstitial lung disease History of coronary artery disease with previous PCI/stent x3 History of hyperlipidemia History of hypertension Moderate to severe mitral calcification and moderate to severe mitral stenosis and mild aortic regurgitation and stenosis. LV function is preserved and the patient has an ejection fraction of 60 to 65%. Rheumatoid arthritis History of hypothyroidism Lifelong non-smoker Plan: The patient was seen and evaluated Chest x-ray, labs and medications reviewed Chest x-ray shows significant worsening compared to 05/31/2023 at discharge Suspect worsening COVID-pneumonia versus hospital-acquired pneumonia Procalcitonin 0.12 Initiated on vancomycin and cefepime Initiated on Solu-Medrol and bronchodilators Continue oral diuretics Titrate the FiO2 as tolerated We will continue to follow and make further recommendations based on her clinical status I have personally seen and examined the patient, performed the documentation and the assessment and plan as written. Number of minutes spent on the visit: 20.
--- NOTE | 2023-06-09 14:40 | P.HPIM ---
History of Present Illness H&P Date: 06/09/23 Chief Complaint: Shortness of breath 82-year-old female, history of hypertension, hyperlipidemia, mitral valve prolapse, hypothyroidism, rheumatoid arthritis, CHF present to the emergency department with difficulty breathing. Onset was yesterday. Patient has had a cough for over a week. Patient has occasional yellow sputum. Patient did have COVID-19 pneumonia couple weeks ago and was in the hospital and discharged home. Patient is unaware of any fevers at home. Patient has chronic interstitial lung disease. She was just recently discharged from here on the 2023 after being treated for COVID-19 pneumonia. She did received remdesivir, bronchodilators and st eroids. She is presented back to the emergency room this morning June 09, 2023 with complaints of increasing shortness of breath cough and congestion that started last evening. She did utilize her 's home oxygen without much improvement. She herself is not on home oxygen. X-ray shows patchy bilateral lung infiltrates compatible with atypical pneumonia possibly ongoing COVID-pneumonia. Suspect some underlying interstitial lung disease as well. White count 16.9. Hemoglobin 10.2. Platelets 265. Sodium 137. Potassium 4.1. Bicarb 29. BUN 21. Creatinine 0.51. proBNP 2430. AST 69. ALT 41. Procalcitonin 0.12. Review of Systems REVIEW OF SYSTEMS: CONSTITUTIONAL: No fever, no malaise, no fatigue. HEENT: No recent visual problems or hearing problems. Denied any sore throat. CARDIOVASCULAR: No chest pain, orthopnea, PND, no palpitations, no syncope. PULMONARY: No shortness of breath, no cough, no hemoptysis. GASTROINTESTINAL: No diarrhea, no nausea, no vomiting, no abdominal pain. NEUROLOGICAL: No headaches, no weakness, no numbness. HEMATOLOGICAL: Denies any bleeding or petechiae. GENITOURINARY: Denies any burning micturition, frequency, or urgency. MUSCULOSKELETAL/RHEUMATOLOGICAL: Denies any joint pain, swelling, or any muscle pain. ENDOCRINE: Denies any polyuria or polydipsia. The rest of the 14-point review of systems is negative. Past Medical History Past Medical History: Heart Failure, Hyperlipidemia, Hypertension, Mitral Valve Prolapse (MVP), Rheumatoid Arthritis (RA), Thyroid Disorder Additional Past Medical History / Comment(s): HAD A PNE VACCINE AFTER AGE 67 BUT NOT SURE OF DATE,OFFICE CLOSED AT TIME OF THIS ADMIT. Last Myocardial Infarction Date:: History of Any Multi-Drug Resistant Organisms: None Reported Past Surgical History: Section, Orthopedic Surgery Additional Past Surgical History / Comment(s): total right knee replacement Past Anesthesia/Blood Transfusion Reactions: No Reported Reaction Additional Past Anesthesia/Blood Transfusion Reaction / Comment(s): clausterphobia Past Psychological History: No Psychological Hx Reported Smoking Status: Never smoker Past Alcohol Use History: Occasional Past Drug Use History: None Reported - Past Family History Father Additional Family Medical History / Comment(s): smoker-had problems related to that Mother Additional Family Medical History / Comment(s): smoker-problems related to that Medications and Allergies Home Medications Medication Instructions Recorded Confirmed Type Multivit-Min/FA/Lycopen/Lutein 1 tab PO DAILY 03/29/16 06/09/23 History [Centrum Silver Tablet] Omeprazole 20 mg PO DAILY 03/29/16 06/09/23 History Budesonide-Formot 160-4.5 Mcg 2 puff INHALATION RT-BID #1 inhaler 04/06/16 06/09/23 Rx [Symbicort 160-4.5 Mcg Inhaler] Alendronate Sodium [Fosamax] 70 mg PO MO 08/09/21 06/09/23 History Cholecalciferol [Vitamin D3 (25 50 mcg PO DAILY 08/09/21 06/09/23 History Mcg = 1000 Iu)] Levothyroxine Sodium [Synthroid] 112 mcg PO MOTUWETHFR 08/09/21 06/09/23 History Magnesium Oxide [Darden] 500 mg PO DAILY 08/09/21 06/09/23 History Montelukast [Singulair] 10 mg PO HS 08/09/21 06/09/23 History ALPRAZolam [Xanax] 0.25 mg PO Q8HR PRN 10/06/21 06/09/23 History modafiniL [Provigil] 200 mg PO DAILY PRN 10/06/21 06/09/23 History Isosorbide Mononitrate ER [Imdur] 30 mg PO DAILY 30 Days #30 tab 10/09/21 06/09/23 Rx Acetaminophen [Tylenol Arthritis] 650 mg PO Q8HR PRN 03/19/22 06/09/23 History Empagliflozin [Jardiance] 10 mg PO DAILY 03/19/22 06/09/23 History Levothyroxine Sodium [Synthroid] 56 mcg PO SUSA 03/19/22 06/09/23 History Metoprolol Succinate (ER) [Toprol 100 mg PO DAILY 03/19/22 06/09/23 History XL] Ascorbic Acid [Vitamin C] 1,000 mg PO DAILY 05/26/23 06/09/23 History Aspirin 81 mg PO AC-BRKFST 05/26/23 06/09/23 History Atorvastatin [Lipitor] 80 mg PO DAILY 05/26/23 06/09/23 History Calcium Carbonate [Calcium] 600 mg PO DAILY 05/26/23 06/09/23 History Furosemide [Lasix] 40 mg PO DAILY 05/26/23 06/09/23 History Verapamil HCl [Verapamil ER PM] 1 cap PO DAILY 05/26/23 06/09/23 History Zinc 200mg 200 mg PO DAILY 05/26/23 06/09/23 History Albuterol Inhaler [Ventolin Hfa 2 puff INHALATION RT-QID PRN #1 05/31/23 06/09/23 Rx Inhaler] each predniSONE See Taper PO DIRECTED #30 tab 05/31/23 06/09/23 Rx Allergies Allergy/AdvReac Type Severity Reaction Status Date / Time clarithromycin [From Biaxin] Allergy Unknown Verified 06/09/23 09:06 gemifloxacin [From Factive] Allergy Unknown Verified 06/09/23 09:06 prednisone Allergy Unknown Verified 06/09/23 09:06 amoxicillin [From Augmentin] AdvReac Nausea & Verified 06/09/23 09:06 Vomiting & Diarrhea clavulanic acid AdvReac Nausea & Verified 06/09/23 09:06 [From Augmentin] Vomiting & Diarrhea Physical Exam Vitals: Vital Signs Temp Pulse Resp BP Pulse Ox 06/09/23 11:22 87 06/09/23 11:11 84 94 L 06/09/23 10:01 83 17 95/54 97 06/09/23 09:00 98.2 F 89 20 111/49 97 06/09/23 08:48 88 06/09/23 08:39 87 06/09/23 08:10 99.1 F 91 17 101/47 95 06/09/23 07:30 17 06/09/23 07:29 96 06/09/23 07:25 99.7 F H 100 18 107/58 90 L Intake and Output 06/08/23 06/09/23 06/09/23 22:59 06:59 14:59 Other: Weight 49.442 kg General appearance: alert, in no apparent distress Head exam: Present: normocephalic Eye exam: Present: normal appearance Neck exam: Present: normal inspection Respiratory exam: Present: wheezes, decreased breath sounds Cardiovascular Exam: Present: regular rate, normal rhythm GI/Abdominal exam: Present: soft. Absent: tenderness Extremities exam: Present: normal inspection. Absent: pedal edema, calf tenderness Neurological exam: Present: alert Psychiatric exam: Present: normal affect, normal mood Skin exam: Present: normal color Results CBC & Chem 7: 06/09/23 07:59 06/09/23 07:59 Labs: Abnormal Lab Results - Last 24 Hours (Table) 06/09/23 06/09/23 Range/Units 07:59 07:59 WBC 16.9 H (3.8-10.6) k/uL RBC 3.20 L (3.80-5.40) m/uL Hgb 10.2 L (11.4-16.0) gm/dL Hct 31.9 L (34.0-46.0) % Neutrophils # 15.3 H (1.3-7.7) k/uL Lymphocytes # 0.7 L (1.0-4.8) k/uL BUN 21 H (7-17) mg/dL Creatinine 0.51 L (0.52-1.04) mg/dL Calcium 8.3 L (8.4-10.2) mg/dL AST 69 H (14-36) U/L ALT 41 H (4-34) U/L Total Protein 5.9 L (6.3-8.2) g/dL Albumin 2.7 L (3.5-5.0) g/dL Assessment and Plan Assessment: 1. Acute hypoxic respiratory failure; multifactorial; hospital-acquired p neumonia versus COVID-19 pneumonia versus bronchial asthma -- Continue with O2 per nasal cannula with plans to titrate or wean as able keeping O2 saturation greater than 92% 2. Acute exacerbation of asthma -IV Solu-Medrol 60 mg every 6 hours; DuoNeb nebulizer treatments 4 times daily and as needed 3. Mild LETICIA; hold off on IV fluid therapy given worsening chest congestion; we will monitor renal function electrolytes closely; avoid nephrotoxins and hypotension 4. Hospital-acquired pneumonia; chest x-ray reveals significant worsening of pneumonia compared to 05/31/2023 -- Pulmonary on board and patient has been placed on IV cefepime and vancomycin 5. COVID-19 pneumonia; patient was recently admitted with COVID-19 pneumonia at which time she was treated with a full course of remdesivir -- Patient is placed on IV Solu-Medrol and bronchodilator therapy -- Patient remains on COVID-19 vitamin cocktail 6. Hypertension; verapamil SR 120 mg daily; metoprolol 100 mg daily and Imdur 30 mg daily 7. Hyperlipidemia; Lipitor 40 mg daily 8. Hypothyroidism; levothyroxine 112 mcg Saturday through Saturday and 56 mcg Saturday and Saturday 9. Coronary artery disease/CHF; status post PCI/stent x 3; patient remains on aspirin, Lipitor, Imdur -- Lasix 40 mg daily and Farxiga 5 mg daily 10. Mitral stenosis; patient has moderate to severe mitral calcifications causing moderate to severe mitral stenosis and mild aortic regurgitation and stenosis -- Last echocardiogram reveals an EF of 60 to 65% DVT prophylaxis; SCDs/subcu heparin CODE STATUS; full code
[2023-06-09] MEDS: CEFEPIME 1 GM in SODIUM CHLORIDE 0.9% 50 ML IVPB SCH (20:32)
[2023-06-09] MEDS: MONTELUKAST 10 MG TAB PO SCH (20:33)
[2023-06-09] MEDS: VANCOMYCIN 1,000 MG in SODIUM CHLORIDE 0.9% 250 ML IVPB SCH (20:33)
[2023-06-09] MEDS: ALPRAZolam 0.25 MG TAB PO PRN (22:46)
[2023-06-10 05:57] LABS: Glucose,Whole Blood 139 mg/dL (70-110)
[2023-06-10] MEDS: LEVOTHYROXINE 112 MCG TAB PO SCH (06:09)
[2023-06-10] MEDS: ASPIRIN 81 MG PO SCH (06:39)
[2023-06-10 07:52] LABS: African American GFR (CKD) >90 (>60 ml/min/1.73 sqM); Anion Gap 9 mmol/L; Blood Urea Nitrogen 26 mg/dL (7-17); Calcium 8.6 mg/dL (8.4-10.2); Carbon Dioxide 23 mmol/L (22-30); Chloride 108 mmol/L (98-107); Glucose 138 mg/dL (74-99); Non-African American GFR(CKD) 84 (>60 ml/min/1.73 sqM); Potassium 4.3 mmol/L (3.5-5.1); Sodium 140 mmol/L (137-145)
[2023-06-10] MEDS: DAPAGLIFLOZIN PROPANEDIOL 5 MG TABLET PO SCH (07:55)
[2023-06-10] MEDS: VERAPAMIL SR 120 MG TABLET.ER PO SCH (07:55)
[2023-06-10] MEDS: CALCIUM CARBONATE 500 MG CHEWABLE PO SCH (07:55)
[2023-06-10] MEDS: FUROSEMIDE 40 MG TAB PO SCH (07:55)
[2023-06-10] MEDS: CHOLECALCIFEROL 25 MCG (1000 IU) TABLET PO SCH (07:55)
[2023-06-10] MEDS: ASCORBIC ACID 500 MG TAB PO SCH (07:55)
--- NOTE | 2023-06-10 11:14 | XR ---
EXAMINATION TYPE: XR chest 1V portable DATE OF EXAM: 06/10/2023 COMPARISON: 06/09/2023 INDICATION: Pneumonia TECHNIQUE: Single frontal view of the chest is obtained. FINDINGS: The heart size is normal. The pulmonary vasculature is prominent. There is diffuse patchy infiltrates present bilaterally. Findings appear stable from comparison. Sarahi elate for pneumonia and atypical pneumonia. Follow-up is recommended. IMPRESSION: 1. Patchy bilateral lung infiltrates, stable from comparison. Correlate for pneumonia or atypical pne umonia.
--- NOTE | 2023-06-10 11:21 | P.PN ---
Subjective 82-year-old female, history of hypertension, hyperlipidemia, mitral valve prolapse, hypothyroidism, rheumatoid arthritis, CHF present to the emergency department with difficulty breathing. Onset was yesterday. Patient has had a cough for over a week. Patient has occasional yellow sputum. Patient did have COVID-19 pneumonia couple weeks ago and was in the hospital and discharged home. Patient is unaware of any fevers at home. Patient has chronic interstitial lung disease. She was just recently discharged from here on the 2023 after being treated for COVID-19 pneumonia. She did received remdesivir, bronchodilators and steroids. She is presented back to the emergency room this morning June 09, 2023 with complaints of increasing shortness of breath cough and congestion that started last evening. She did utilize her 's home oxygen without much improvement. She herself is not on home oxygen. X-ray shows patchy bilateral lung infiltrates compatible with atypical pneumonia possibly ongoing COVID-pneumonia. Suspect some underlying interstitial lung disease as well. White count 16.9. Hemoglobin 10.2. Platelets 265. Sodium 137. Potassium 4.1. Bicarb 29. BUN 21. Creatinine 0.51. proBNP 2430. AST 69. ALT 41. Procalcitonin 0.12. 06/10/2023 Patient awake and alert She has more shortness of breath today improved with higher oxygen from 2 up to 3 L/min Repeat chest x-ray showing patchy bilateral infiltrates, stable exam. No fever today but hemodynamically stable BMP is unremarkable Patient remains on IV cefepime, IV vancomycin and IV Solu-Medrol 60 mg and normal saline 75 mL/h Review of systems NEUROLOGICAL: No headaches, no weakness, no numbness. HEMATOLOGICAL: Denies any bleeding or petechiae. GENITOURINARY: Denies any burning micturition, frequency, or urgency. MUSCULOSKELETAL/RHEUMATOLOGICAL: Denies any joint pain, swelling, or any muscle pain. ENDOCRINE: Denies any polyuria or polydipsia. Active Medications Generic Name Dose Route Start Last Admin Trade Name Freq PRN Reason Stop Dose Admin Albuterol/Ipratropium 3 ml 06/09/23 12:00 06/10/23 09:47 Ipratropium-Albuterol 3 Ml Neb INHALATION Not Given RT-QID PAUL Albuterol/Ipratropium 3 ml 06/09/23 09:40 Ipratropium-Albuterol 3 Ml Neb INHALATION RT-Q4H PRN shortness of breath Alprazolam 0.25 mg 06/09/23 11:33 06/09/23 22:46 Alprazolam 0.25 Mg Tab PO 0.25 mg Q8HR PRN Administration Anxiety Ascorbic Acid 1,000 mg 06/10/23 09:00 06/10/23 07:55 Ascorbic Acid 500 Mg Tab PO 1,000 mg DAILY PAUL Administration Aspirin 81 mg 06/10/23 07:30 06/10/23 06:39 Aspirin 81 Mg PO 81 mg AC-BRKFST PAUL Administration Atorvastatin Calcium 80 mg 06/09/23 11:45 06/10/23 07:54 Atorvastatin 80 Mg Tab PO 80 mg DAILY PAUL Administration Budesonide 1 mg 06/10/23 20:00 Budesonide 1 Mg/2 Ml Nebu INHALATION RT-BID PAUL Calcium Carbonate/Glycine 500 mg 06/10/23 09:00 06/10/23 07:55 Calcium Carbonate 500 Mg Chewable PO 500 mg DAILY PAUL Administration Cholecalciferol 50 mcg 06/10/23 09:00 06/10/23 07:55 Cholecalciferol 25 Mcg (1000 Iu) Tablet PO 50 mcg DAILY PAUL Administration Dapagliflozin 5 mg 06/10/23 09:00 06/10/23 07:55 Dapagliflozin Propanediol 5 Mg Tablet PO 5 mg DAILY PAUL Administration Formoterol Fumarate 20 mcg 06/10/23 20:00 Formoterol Fumarate 20 Mcg/2 Ml Nebu INHALATION RT-BID PAUL Furosemide 40 mg 06/10/23 09:00 06/10/23 07:55 Furosemide 40 Mg Tab PO 40 mg DAILY PAUL Administration Sodium Chloride 1,000 mls @ 75 mls/hr 06/09/23 09:45 06/09/23 22:46 Saline 0.9% IV 75 mls/hr .[id number] PAUL Administration Cefepime HCl 1 gm/ Sodium 50 mls @ 12.5 mls/hr 06/09/23 21:00 06/10/23 07:55 Chloride IVPB 12.5 mls/hr Q12HR PAUL Administration Protocol Vancomycin HCl 1,000 mg/ 250 mls @ 125 mls/hr 06/11/23 02:00 Sodium Chloride IVPB Q16H PAUL Isosorbide Mononitrate 30 mg 06/09/23 11:45 06/10/23 07:55 Isosorbide Mononitrate Er 30 Mg Tab.Er.24h PO 30 mg DAILY PAUL Administration Levothyroxine Sodium 56 mcg 06/09/23 11:45 06/09/23 12:19 Levothyroxine 112 Mcg Tab PO 56 mcg [id number]@0630 PAUL Administration Levothyroxine Sodium 112 mcg 06/10/23 06:30 06/10/23 06:09 Levothyroxine 112 Mcg Tab PO 112 mcg [id number]@0630 PAUL Administration Magnesium Oxide 400 mg 06/09/23 11:45 06/10/23 07:55 Magnesium Oxide 400 Mg Tab PO 400 mg DAILY PAUL Administration Methylprednisolone Sodium Succinate 60 mg 06/09/23 12:00 06/10/23 06:08 Methylprednisolone Sod Succi 125 Mg/2 Ml Vial IV 60 mg Q6HR PAUL Administration Metoprolol Succinate 100 mg 06/09/23 11:45 06/10/23 09:07 Metoprolol Succinate (Er) 100 Mg Tab.Er.24h PO 100 mg DAILY PAUL Administration Miscellaneous Information 1 each 06/09/23 09:40 Pneumonia Protocol Utilized 1 Each Misc PO ONCE PRN Per Protocol Miscellaneous Information 0 each 06/11/23 17:00 Vancomycin Trough Due 1 Each Misc MISCELLANE 06/11/23 17:01 DIRECTED ONE Montelukast Sodium 10 mg 06/09/23 21:00 06/09/23 20:33 Montelukast 10 Mg Tab PO 10 mg HS PAUL Administration Pantoprazole Sodium 40 mg 06/09/23 11:45 06/10/23 06:39 Pantoprazole 40 Mg Tablet PO 40 mg AC-BRKFST PAUL Administration Verapamil HCl 120 mg 06/10/23 09:00 06/10/23 07:55 Verapamil Sr 120 Mg Tablet.Er PO 120 mg DAILY PAUL Administration Zinc Sulfate 220 mg 06/09/23 11:45 06/10/23 07:58 Zinc Sulfate 220 Mg Cap PO 220 mg DAILY PAUL Administration Objective - Vital Signs Vital signs: Vital Signs Temp 98.1 F 06/10/23 07:27 Pulse 82 06/10/23 07:27 Resp 19 06/10/23 07:27 BP 118/72 06/10/23 07:27 Pulse Ox 97 06/10/23 09:45 FiO2 Intake & Output 06/09/23 06/10/2306/09/24 18:59 06:59 18:59 Intake Total 1200 Balance 1200 Weight 49.442 kg 49.442 kg Intake: Oral 1200 Other: # Voids 4 - Exam GENERAL: The patient is alert and oriented x3, not in any acute distress. Well developed, well nourished. HEENT: Pupils are round and equally reacting to light. EOMI. No scleral icterus. No conjunctival pallor. Normocephalic, atraumatic. No pharyngeal erythema. No thyromegaly. CARDIOVASCULAR: S1 and S2 present. No murmurs, rubs, or gallops. -PULMONARY: Chest is clear to auscultation, no wheezing , bilateral crackles. Tachypneic, mild ABDOMEN: Soft, nontender, nondistended, normoactive bowel sounds. No palpable organomegaly. MUSCULOSKELETAL: No joint swelling or deformity. EXTREMITIES: No cyanosis, clubbing, or pedal edema. NEUROLOGICAL: Gross neurological examination did not reveal any focal deficits. SKIN: No rashes. no petechiae. - Labs CBC & Chem 7: 06/09/23 07:59 06/10/23 06:39 Labs: Abnormal Lab Results - Last 24 Hours (Table) 06/09/23 06/10/23 06/10/23 Range/Units 07:59 05:56 06:39 Chloride 108 H (98-107) mmol/L BUN 26 H (7-17) mg/dL Glucose 138 H (74-99) mg/dL POC Glucose (mg/dL) 139 H (70-110) mg/dL Procalcitonin 0.12 H (0.02-0.09) ng/mL Assessment and Plan Assessment: 1. Acute hypoxic respiratory failure; multifactorial; hospital-acquired pneumonia versus COVID-19 pneumonia versus bronchial asthma -- Continue with O2 per nasal cannula with plans to titrate or wean as able keeping O2 saturation greater than 92% 2. Acute exacerbation of asthma -IV Solu-Medrol 60 mg every 6 hours; DuoNeb nebulizer treatments 4 times daily and as needed 3. Mild LETICIA; hold off on IV fluid therapy given worsening chest congestion; we will monitor renal function electrolytes closely; avoid nephrotoxins and hypotension 4. Hospital-acquired pneumonia; chest x-ray reveals significant worsening of pneumonia compared to 05/31/2023 -- Pulmonary on board and patient has been placed on IV cefepime and vancomycin 5. COVID-19 pneumonia; patient was recently admitted with COVID-19 pneumonia at which time she was treated with a full course of remdesivir -- Patient is placed on IV Solu-Medrol and bronchodilator therapy -- Patient remains on COVID-19 vitamin cocktail 6. Hypertension; verapamil SR 120 mg daily; metoprolol 100 mg daily and Imdur 30 mg daily 7. Hyperlipidemia; Lipitor 40 mg daily 8. Hypothyroidism; levothyroxine 112 mcg Saturday through Saturday and 56 mcg Saturday and Saturday 9. Coronary artery disease/CHF; status post PCI/stent x 3; patient remains on aspirin, Lipitor, Imdur -- Lasix 40 mg daily and Farxiga 5 mg daily 10. Mitral stenosis; patient has moderate to severe mitral calcifications causing moderate to severe mitral stenosis and mild aortic regurgitation and stenosis -- Last echocardiogram reveals an EF of 60 to 65% DVT prophylaxis; SCDs/subcu heparin CODE STATUS; full code
[2023-06-10 11:46] LABS: Glucose,Whole Blood 219 mg/dL (70-110)
[2023-06-10 11:57] LABS: Basophils # (A) 0.02 X 10*3/uL (0.00-0.10); Basophils % (A) 0.1 %; Eosinophils # (A) 0 X 10*3/uL (0.04-0.35); Eosinophils % (A) 0 %; HCT 32.1 % (37.2-46.3); HGB 9.5 g/dL (12.0-15.0); Lymphocytes # (A) 0.49 X 10*3/uL (0.90-5.00); Lymphocytes % (A) 2.6 %; MCH 30.7 pg (27.0-32.0); MCHC 29.6 g/dL (32.0-37.0); MCV 103.9 FL (80.0-97.0); Mean Platelet Volume 10.6 FL (9.5-12.2); Monocytes # (A) 0.59 X 10*3/uL (0.20-1.00); Monocytes % (A) 3.1 %; NRBC Per 100 WBC 0 X 10*3/uL (0.00-0.01); Neutrophils # (A) 17.19 X 10*3/uL (1.80-7.70); Neutrophils % (A) 90.8 %; Platelet Count 239 X 10*3/uL (140-440); RBC 3.09 X 10*6/uL (4.10-5.20); RDW 15.1 % (11.5-14.5); WBC 18.94 X 10*3/uL (4.50-10.00)
[2023-06-10] MEDS: ACETAMINOPHEN TAB 325 MG TAB PO PRN (12:46)
[2023-06-10] MEDS ORDERED: ALBUTEROL HFA INHALER INHALATION PRN (12:46)
[2023-06-10] MEDS: ALBUTEROL HFA INHALER INHALATION SCH (12:56)
--- NOTE | 2023-06-10 14:29 | P.PN ---
Subjective Progress Note Date: 06/10/23 This is a very pleasant 82-year-old female patient with a known history of chronic bronchial asthma, mitral valve prolapse, hypertension, hyperlipidemia, CAD with previous stent, and a lifelong non-smoker. She was just recently discharged from here on the 2023 after being treated for COVID-19 pneumo nitesh. She did received remdesivir, bronchodilators and steroids. She is presented back to the emergency room this morning June 09, 2023 with complaints of increasing shortness of breath cough and congestion that started last evening. She did utilize her 's home oxygen without much improvement. She herself is not on home oxygen. X-ray shows patchy bilateral lung infiltrates compatible with atypical pneumonia possibly ongoing COVID-pneumonia. Suspect some underlying interstitial lung disease as well. White count 16.9. Hemoglobin 10.2. Platelets 265. Sodium 137. Potassium 4.1. Bicarb 29. BUN 21. Creatinine 0.51. proBNP 2430. AST 69. ALT 41. Procalcitonin 0.12. She is seen today in the emergency room in consultation. She is sitting up in the stretcher. Awake and alert in no acute distress. Maintaining O2 saturations in the upper 90s on 2 L/min per nasal cannula. She is afebrile. Hemodynamically stable. The patient is seen today June 10, 2023 in follow-up on the regular medical floor. She is currently sitting up in bed. Awake and alert in no acute distres s. She still has a loose congested cough. Still dyspneic with conversation. Dyspneic with minimal exertion. She is maintaining O2 saturation in the 90s on 3 L/min per nasal cannula. No IV fluids. Her procalcitonin was 0.12. She is continued on vancomycin and cefepime. Her COVID screen today is positive still. Chest x-ray continues to show patchy bilateral infiltrates stable compared to previous. She remains on bronchodilators and steroids. White count 18.9. Hemoglobin 9.5. Platelets 239. Sodium 140. Potassium 4.3. Bicarb 23. BUN 26. Creatinine 0.65. Glucose 138. Objective - Vital Signs Vital signs: Vital Signs Temp 98.1 F 06/10/23 07:27 Pulse 82 06/10/23 07:27 Resp 19 06/10/23 07:27 BP 118/72 06/10/23 07:27 Pulse Ox 97 06/10/23 09:45 FiO2 Intake & Output 06/09/23 06/10/23 06/10/23 18:59 06:59 18:59 Intake Total 1200 Balance 1200 Weight 49.442 kg 49.442 kg Intake: Oral 1200 Other: # Voids 4 - Exam GENERAL EXAM: Alert, 82-year-old female, on 2 L nasal cannula, in no apparent distress. HEAD: Normocephalic. EYES: Normal reaction of pupils, equal size. NOSE: Clear with pink turbinates. THROAT: No erythema or exudates. NECK: No masses, no JVD. CHEST: No chest wall deformity. LUNGS: Equal air entry with coarse crackles in the bilateral bases. CVS: S1 and S2 normal with no audible murmur, regular rhythm. ABDOMEN: No hepatosplenomegaly, normal bowel sounds, no guarding or rigidity. SPINE: No scoliosis or deformity SKIN: No rashes CENTRAL NERVOUS SYSTEM: No focal deficits, tone is normal in all 4 extremities. EXTREMITIES: There is no peripheral edema. No clubbing, no cyanosis. Peripheral pulses are intact. - Labs CBC & Chem 7: 06/10/23 07:05 06/10/23 06:39 Labs: Abnormal Lab Results - Last 24 Hours (Table) 06/10/23 06/10/23 06/10/23 Range/Units 05:56 06:39 07:05 WBC 18.94 H (4.50-10.00) X 10*3/uL RBC 3.09 L (4.10-5.20) X 10*6/uL Hgb 9.5 L (12.0-15.0) g/dL Hct 32.1 L (37.2-46.3) % MCV 103.9 H (80.0-97.0) FL MCHC 29.6 L (32.0-37.0) g/dL RDW 15.1 H (11.5-14.5) % Immature Gran # 0.65 H (0.00-0.04) X 10*3/uL Neutrophils # 17.19 H (1.80-7.70) X 10*3/uL Lymphocytes # 0.49 L (0.90-5.00) X 10*3/uL Eosinophils # 0 L (0.04-0.35) X 10*3/uL Chloride 108 H (98-107) mmol/L BUN 26 H (7-17) mg/dL Glucose 138 H (74-99) mg/dL POC Glucose (mg/dL) 139 H (70-110) mg/dL SARS-CoV-2 (PCR) (Not Detectd) 06/10/23 06/10/23 Range/Units 11:45 12:48 WBC (4.50-10.00) X 10*3/uL RBC (4.10-5.20) X 10*6/uL Hgb (12.0-15.0) g/dL Hct (37.2-46.3) % MCV (80.0-97.0) FL MCHC (32.0-37.0) g/dL RDW (11.5-14.5) % Immature Gran # (0.00-0.04) X 10*3/uL Neutrophils # (1.80-7.70) X 10*3/uL Lymphocytes # (0.90-5.00) X 10*3/uL Eosinophils # (0.04-0.35) X 10*3/uL Chloride (98-107) mmol/L BUN (7-17) mg/dL Glucose (74-99) mg/dL POC Glucose (mg/dL) 219 H (70-110) mg/dL SARS-CoV-2 (PCR) Detected A (Not Detectd) Assessment and Plan Assessment: Acute hypoxic respiratory failure secondary to possible hospital-acquired pneumonia versus ongoing/worsening COVID-19 pneumonia and chronic bronchial asthma. Procalcitonin 0.12 Acute exacerbation of mild intermittent chronic bronchial asthma Recent discharge on May 31, 2023 for COVID-19 pneumonia, treated with remdesivir. Still testing positive Possible underlying interstitial lung disease History of coronary artery disease with previous PCI/stent x3 History of hyperlipidemia History of hypertension Moderate to severe mitral calcification and moderate to severe mitral stenosis and mild aortic regurgitation and stenosis. LV function is preserved and the patient has an ejection fraction of 60 to 65%. Rheumatoid arthritis History of hypothyroidism Lifelong non-smoker Plan: The patient was seen and evaluated Chest x-ray, labs and medications reviewed Continue vancomycin and cefepime Continue Solu-Medrol and bronchodilators Continue oral diuretics Titrate the FiO2 as tolerated We will continue to follow I have personally seen and examined the patient, performed the documentation and the assessment and plan as written. Number of minutes spent on the visit: 10.
[2023-06-10 16:37] LABS: Glucose,Whole Blood 190 mg/dL (70-110)
[2023-06-10] MEDS: SYMBICORT 160-4.5 MCG INHALER INHALATION SCH (19:39)
[2023-06-10] MEDS ORDERED: BUDESONIDE 1 MG/2 ML NEBU INHALATION SCH (20:00)
[2023-06-10] MEDS ORDERED: FORMOTEROL FUMARATE 20 MCG/2 ML NEBU INHALATION SCH (20:00)
[2023-06-10 20:15] LABS: Glucose,Whole Blood 349 mg/dL (70-110)
[2023-06-11] MEDS: VANCOMYCIN 1,000 MG in SODIUM CHLORIDE 0.9% 250 ML IVPB SCH (02:14)
[2023-06-11 05:38] LABS: Glucose,Whole Blood 182 mg/dL (70-110)
[2023-06-11 07:57] LABS: Basophils # (A) 0.1 k/uL (0-0.2); Basophils % (A) 0 %; Eosinophils % (A) 0 %; HCT 33.2 % (34.0-46.0); HGB 9.7 gm/dL (11.4-16.0); Hypochromasia Marked; Lymphocytes # (A) 0.1 k/uL (1.0-4.8); Lymphocytes % (A) 1 %; MCH 31.2 pg (25.0-35.0); MCHC 29.2 g/dL (31.0-37.0); Macrocytosis Moderate; Mean Platelet Volume 8.1; Monocytes # (A) 0.4 k/uL (0-1.0); Monocytes % (A) 2 %; Neutrophils # (A) 21.6 k/uL (1.3-7.7); Neutrophils % (A) 97 %; Platelet Count 275 k/uL (150-450); RBC 3.11 m/uL (3.80-5.40); RDW 14.8 % (11.5-15.5); WBC 22.3 k/uL (3.8-10.6)
[2023-06-11 07:58] LABS: MCV 106.9 fL (80.0-100.0)
[2023-06-11] MEDS: BENZONATATE 100 MG CAP PO PRN (09:04)
[2023-06-11 11:20] LABS: BUN/Creat Ratio 38.86 Ratio (12.00-20.00); Blood Urea Nitrogen 27.2 mg/dL (9.0-27.0); Carbon Dioxide 25.1 mmol/L (21.6-31.8); Chloride 106 mmol/L (96-109); Glucose 156 mg/dL (70-110); Potassium 4.6 mmol/L (3.5-5.5); Sodium 143 mmol/L (135-145)
[2023-06-11] MEDS: LORazepam 2 MG/ML INJ IV STA (11:24)
[2023-06-11 11:51] LABS: Glucose,Whole Blood 183 mg/dL (70-110)
--- NOTE | 2023-06-11 12:25 | P.PN ---
Subjective 82-year-old female, history of hypertension, hyperlipidemia, mitral valve prolapse, hypothyroidism, rheumatoid arthritis, CHF present to the emergency department with difficulty breathing. Onset was yesterday. Patient has had a cough for over a week. Patient has occasional yellow sputum. Patient did have COVID-19 pneumonia couple weeks ago and was in the hospital and discharged home. Patient is unaware of any fevers at home. Patient has chronic interstitial lung disease. She was just recently discharged from here on the 2023 after being treated for COVID-19 pneumonia. She did received remdesivir, bronchodilators and steroids. She is presented back to the emergency room this morning June 09, 2023 with complaints of increasing shortness of breath cough and congestion that started last evening. She did utilize her 's home oxygen without much improvement. She herself is not on home oxygen. X-ray shows patchy bilateral lung infiltrates compatible with atypical pneumonia possibly ongoing COVID-pneumonia. Suspect some underlying interstitial lung disease as well. White count 16.9. Hemoglobin 10.2. Platelets 265. Sodium 137. Potassium 4.1. Bicarb 29. BUN 21. Creatinine 0.51. proBNP 2430. AST 69. ALT 41. Procalcitonin 0.12. 06/10/2023 Patient awake and alert She has more shortness of breath today improved with higher oxygen from 2 up to 3 L/min Repeat chest x-ray showing patchy bilateral infiltrates, stable exam. No fever today but hemodynamically stable BMP is unremarkable Patient remains on IV cefepime, IV vancomycin and IV Solu-Medrol 60 mg and normal saline 75 mL/h 06/11/2023 Patient breathing is worse today, she is requiring nonrebreather 60 L/min with FiO2 of 90% and also she is tachypneic and anxious, As per staff patient and family declining intubation and if she deteriorates she might need to be placed on BiPAP WBC is 22.3, hemoglobin stable 9.7 She is currently covered with IV cefepime and IV vancomycin and IV Solu-Medrol. IV fluids was discontinued Review of systems NEUROLOGICAL: No headaches, no weakness, no numbness. HEMATOLOGICAL: Denies any bleeding or petechiae. GENITOURINARY: Denies any burning micturition, frequency, or urgency. MUSCULOSKELETAL/RHEUMATOLOGICAL: Denies any joint pain, swelling, or any muscle pain. ENDOCRINE: Denies any polyuria or polydipsia. Active Medications Generic Name Dose Route Start Last Admin Trade Name Freq PRN Reason Stop Dose Admin Acetaminophen 650 mg 06/10/23 12:38 06/11/23 06:42 Acetaminophen Tab 325 Mg Tab PO 650 mg Q6HR PRN Administration Fever and/ or Pain Albuterol Sulfate 2 puff 06/10/23 13:00 06/11/23 11:23 Albuterol Hfa Inhaler INHALATION 2 puff RT-QID PAUL Administration Albuterol Sulfate 2 puff 06/10/23 12:46 Albuterol Hfa Inhaler INHALATION RT-Q4H PRN shortness of breath Alprazolam 0.25 mg 06/09/23 11:33 06/11/23 09:04 Alprazolam 0.25 Mg Tab PO 0.25 mg Q8HR PRN Administration Anxiety Ascorbic Acid 1,000 mg 06/10/23 09:00 06/11/23 08:54 Ascorbic Acid 500 Mg Tab PO 1,000 mg DAILY PAUL Administration Aspirin 81 mg 06/10/23 07:30 06/11/23 06:42 Aspirin 81 Mg PO 81 mg [id number] PAUL Administration Atorvastatin Calcium 80 mg 06/09/23 11:45 06/11/23 08:55 Atorvastatin 80 Mg Tab PO 80 mg DAILY PAUL Administration Benzonatate 200 mg 06/11/23 07:00 06/11/23 09:04 Benzonatate 100 Mg Cap PO 200 mg TID PRN Administration Cough Budesonide/Formoterol Fumarate 2 puff 06/10/23 20:00 06/11/23 07:56 Symbicort 160-4.5 Mcg Inhaler INHALATION 2 puff RT-BID PAUL Administration Calcium Carbonate/Glycine 500 mg 06/10/23 09:00 06/11/23 08:52 Calcium Carbonate 500 Mg Chewable PO 500 mg DAILY PAUL Administration Cholecalciferol 50 mcg 06/10/23 09:00 06/11/23 08:55 Cholecalciferol 25 Mcg (1000 Iu) Tablet PO 50 mcg DAILY PAUL Administration Dapagliflozin 5 mg 06/10/23 09:00 06/11/23 08:53 Dapagliflozin Propanediol 5 Mg Tablet PO 5 mg DAILY PAUL Administration Furosemide 40 mg 06/10/23 09:00 06/11/23 08:55 Furosemide 40 Mg Tab PO 40 mg DAILY PAUL Administration Sodium Chloride 1,000 mls @ 75 mls/hr 06/09/23 09:45 06/11/23 01:57 Saline 0.9% IV Not Given .[id number] PAUL Cefepime HCl 1 gm/ Sodium 50 mls @ 12.5 mls/hr 06/09/23 21:00 06/11/23 08:55 Chloride IVPB 12.5 mls/hr Q12HR PAUL Administration Protocol Vancomycin HCl 1,000 mg/ 250 mls @ 125 mls/hr 06/11/23 02:00 06/11/23 02:14 Sodium Chloride IVPB 125 mls/hr Q16H PAUL Administration Isosorbide Mononitrate 30 mg 06/09/23 11:45 06/11/23 08:55 Isosorbide Mononitrate Er 30 Mg Tab.Er.24h PO 30 mg DAILY PAUL Administration Levothyroxine Sodium 56 mcg 06/09/23 11:45 06/09/23 12:19 Levothyroxine 112 Mcg Tab PO 56 mcg [id number] PAUL Administration Levothyroxine Sodium 112 mcg 06/10/23 06:30 06/11/23 06:37 Levothyroxine 112 Mcg Tab PO 112 mcg [id number] PAUL Administration Magnesium Oxide 400 mg 06/09/23 11:45 06/11/23 08:55 Magnesium Oxide 400 Mg Tab PO 400 mg DAILY PAUL Administration Methylprednisolone Sodium Succinate 60 mg 06/09/23 12:00 06/11/23 11:28 Methylprednisolone Sod Succi 125 Mg/2 Ml Vial IV 60 mg Q6HR PAUL Administration Metoprolol Succinate 100 mg 06/09/23 11:45 06/11/23 08:53 Metoprolol Succinate (Er) 100 Mg Tab.Er.24h PO 100 mg DAILY PAUL Administration Miscellaneous Information 1 each 06/09/23 09:40 Pneumonia Protocol Utilized 1 Each Misc PO ONCE PRN Per Protocol Miscellaneous Information 0 each 06/11/23 17:00 Vancomycin Trough Due 1 Each Misc MISCELLANE 06/11/23 17:01 DIRECTED ONE Montelukast Sodium 10 mg 06/09/23 21:00 06/10/23 20:19 Montelukast 10 Mg Tab PO 10 mg HS PAUL Administration Pantoprazole Sodium 40 mg 06/09/23 11:45 06/11/23 06:42 Pantoprazole 40 Mg Tablet PO 40 mg AC-[id number] PAUL Administration Verapamil HCl 120 mg 06/10/23 09:00 06/11/23 08:53 Verapamil Sr 120 Mg Tablet.Er PO 120 mg DAILY PAUL Administration Zinc Sulfate 220 mg 06/09/23 11:45 06/11/23 08:53 Zinc Sulfate 220 Mg Cap PO 220 mg DAILY PAUL Administration Objective - Vital Signs Vital signs: Vital Signs Temp 97.7 F 06/11/23 07:06 Pulse 93 06/11/23 07:06 Resp 30 H 06/11/23 10:34 BP 141/69 06/11/23 07:06 Pulse Ox 92 L 06/11/23 10:08 FiO2 90 06/11/23 11:24 Intake & Output 06/10/23 06/11/23 06/11/23 18:59 06:59 18:59 Intake Total 360 Balance 360 Intake: Oral 360 Other: Voiding Method Toilet # Voids 3 - Exam GENERAL: The patient is alert and oriented x3, not in any acute distress. Well developed, well nourished. HEENT: Pupils are round and equally reacting to light. EOMI. No scleral icterus. No conjunctival pallor. Normocephalic, atraumatic. No pharyngeal erythema. No thyromegaly. CARDIOVASCULAR: S1 and S2 present. No murmurs, rubs, or gallops. -PULMONARY: Chest is clear to auscultation, no wheezing , bilateral crackles. Tachypneic, mild ABDOMEN: Soft, nontender, nondistended, normoactive bowel sounds. No palpable organomegaly. MUSCULOSKELETAL: No joint swelling or deformity. EXTREMITIES: No cyanosis, clubbing, or pedal edema. NEUROLOGICAL: Gross neurological examination did not reveal any focal deficits. SKIN: No rashes. no petechiae. - Labs CBC & Chem 7: 06/11/23 05:50 06/11/23 05:50 Labs: Abnormal Lab Results - Last 24 Hours (Table) 06/10/23 06/10/23 06/10/23 Range/Units 12:48 16:36 20:14 WBC (3.8-10.6) k/uL RBC (3.80-5.40) m/uL Hgb (11.4-16.0) gm/dL Hct (34.0-46.0) % MCV (80.0-100.0) fL MCHC (31.0-37.0) g/dL Neutrophils # (1.3-7.7) k/uL Lymphocytes # (1.0-4.8) k/uL BUN (9.0-27.0) mg/dL BUN/Creatinine Ratio (12.00-20.00) Ratio Glucose (70-110) mg/dL POC Glucose (mg/dL) 190 H 349 H (70-110) mg/dL SARS-CoV-2 (PCR) Detected A (Not Detectd) 06/11/23 06/11/23 06/11/23 Range/Units 05:36 05:50 05:50 WBC 22.3 H (3.8-10.6) k/uL RBC 3.11 L (3.80-5.40) m/uL Hgb 9.7 L (11.4-16.0) gm/dL Hct 33.2 L (34.0-46.0) % MCV 106.9 H D (80.0-100.0) fL MCHC 29.2 L (31.0-37.0) g/dL Neutrophils # 21.6 H (1.3-7.7) k/uL Lymphocytes # 0.1 L (1.0-4.8) k/uL BUN 27.2 H (9.0-27.0) mg/dL BUN/Creatinine Ratio 38.86 H (12.00-20.00) Ratio Glucose 156 H (70-110) mg/dL POC Glucose (mg/dL) 182 H (70-110) mg/dL SARS-CoV-2 (PCR) (Not Detectd) 06/11/23 Range/Units 11:50 WBC (3.8-10.6) k/uL RBC (3.80-5.40) m/uL Hgb (11.4-16.0) gm/dL Hct (34.0-46.0) % MCV (80.0-100.0) fL MCHC (31.0-37.0) g/dL Neutrophils # (1.3-7.7) k/uL Lymphocytes # (1.0-4.8) k/uL BUN (9.0-27.0) mg/dL BUN/Creatinine Ratio (12.00-20.00) Ratio Glucose (70-110) mg/dL POC Glucose (mg/dL) 183 H (70-110) mg/dL SARS-CoV-2 (PCR) (Not Detectd) Microbiology - Last 24 Hours (Table) 06/09/23 09:15 Nasal Screen MRSA/MSSA - Final Nasal Swab 06/09/23 07:55 Blood Culture - Preliminary Blood 06/09/23 07:40 Blood Culture - Preliminary Blood Assessment and Plan Assessment: 1. Acute hypoxic respiratory failure; multifactorial; hospital-acquired pneumonia versus COVID-19 pneumonia versus bronchial asthma --Increased oxygen requirement to high flow nasal cannula 2. Acute exacerbation of asthma -IV Solu-Medrol 60 mg every 6 hours; DuoNeb nebulizer treatments 4 times daily and as needed 3. Mild LETICIA; hold off on IV fluid therapy given worsening chest congestion; we will monitor renal function electrolytes closely; avoid nephrotoxins and hypotension 4. Hospital-acquired pneumonia; chest x-ray reveals significant worsening of pneumonia compared to 05/31/2023 -- Pulmonary on board and patient has been placed on IV cefepime and vancomycin 5. COVID-19 pneumonia; patient was recently admitted with COVID-19 pneumonia at which time she was treated with a full course of remdesivir -- Patient is placed on IV Solu-Medrol and bronchodilator therapy -- Patient remains on COVID-19 vitamin cocktail 6. Hypertension; verapamil SR 120 mg daily; metoprolol 100 mg daily and Imdur 30 mg daily 7. Hyperlipidemia; Lipitor 40 mg daily 8. Hypothyroidism; levothyroxine 112 mcg Saturday through Saturday and 56 mcg Saturday and Saturday 9. Coronary artery disease/CHF; status post PCI/stent x 3; patient remains on aspirin, Lipitor, Imdur -- Lasix 40 mg daily and Farxiga 5 mg daily 10. Mitral stenosis; patient has moderate to severe mitral calcifications causing moderate to severe mitral stenosis and mild aortic regurgitation and stenosis -- Last echocardiogram reveals an EF of 60 to 65% DVT prophylaxis; SCDs/subcu heparin CODE STATUS; full code
--- NOTE | 2023-06-11 14:58 | P.PN ---
Subjective Progress Note Date: 06/11/23 This is a very pleasant 82-year-old female patient with a known history of chronic bronchial asthma, mitral valve prolapse, hypertension, hyperlipidemia, CAD with previous stent, and a lifelong non-smoker. She was just recently discharged from here on the 2023 after being treated for COVID-19 pneumo nitesh. She did received remdesivir, bronchodilators and steroids. She is presented back to the emergency room this morning June 09, 2023 with complaints of increasing shortness of breath cough and congestion that started last evening. She did utilize her 's home oxygen without much improvement. She herself is not on home oxygen. X-ray shows patchy bilateral lung infiltrates compatible with atypical pneumonia possibly ongoing COVID-pneumonia. Suspect some underlying interstitial lung disease as well. White count 16.9. Hemoglobin 10.2. Platelets 265. Sodium 137. Potassium 4.1. Bicarb 29. BUN 21. Creatinine 0.51. proBNP 2430. AST 69. ALT 41. Procalcitonin 0.12. She is seen today in the emergency room in consultation. She is sitting up in the stretcher. Awake and alert in no acute distress. Maintaining O2 saturations in the upper 90s on 2 L/min per nasal cannula. She is afebrile. Hemodynamically stable. The patient is seen today June 10, 2023 in follow-up on the regular medical floor. She is currently sitting up in bed. Awake and alert in no acute distres s. She still has a loose congested cough. Still dyspneic with conversation. Dyspneic with minimal exertion. She is maintaining O2 saturation in the 90s on 3 L/min per nasal cannula. No IV fluids. Her procalcitonin was 0.12. She is continued on vancomycin and cefepime. Her COVID screen today is positive still. Chest x-ray continues to show patchy bilateral infiltrates stable compared to previous. She remains on bronchodilators and steroids. White count 18.9. Hemoglobin 9.5. Platelets 239. Sodium 140. Potassium 4.3. Bicarb 23. BUN 26. Creatinine 0.65. Glucose 138. The patient is seen today June 11, 2023 in follow-up on the regular medical floor. She is currently seen at the bedside. Family is in the room. She had a rough night. She was having increasing shortness of breath cough and congestion. She was increased to 5 L/min per nasal cannula. She was initiated on Tessalon Perles. Her procalcitonin was 0.12. She continues on cefepime and vancomycin. She remains on Symbicort, albuterol, Solu-Medrol. Blood cultures revealed no growth. Nasal swab was negative for MRSA. White count 22.3. Hemoglobin 9.7. Platelets 275. Sodium 143. Potassium 4.6. Bicarb 25. BUN 27. Creatinine 0.7. Glucose 156. Remains on diuretics. Objective - Vital Signs Vital signs: Vital Signs Temp 97.7 F 06/11/23 07:06 Pulse 93 06/11/23 07:06 Resp 30 H 06/11/23 10:34 BP 141/69 06/11/23 07:06 Pulse Ox 92 L 06/11/23 10:08 FiO2 90 06/11/23 11:24 Intake & Output 06/10/23 06/11/23 06/11/23 18:59 06:59 18:59 Intake Total 360 Balance 360 Intake: Oral 360 Other: Voiding Method Toilet # Voids 3 - Exam GENERAL EXAM: Alert, 82-year-old female, on 5 L nasal cannula, in mild respiratory distress. HEAD: Normocephalic. EYES: Normal reaction of pupils, equal size. NOSE: Clear with pink turbinates. THROAT: No erythema or exudates. NECK: No masses, no JVD. CHEST: No chest wall deformity. LUNGS: Equal air entry with coarse crackles in the bilateral bases. CVS: S1 and S2 normal with no audible murmur, regular rhythm. ABDOMEN: No hepatosplenomegaly, normal bowel sounds, no guarding or rigidity. SPINE: No scoliosis or deformity SKIN: No rashes CENTRAL NERVOUS SYSTEM: No focal deficits, tone is normal in all 4 extremities. EXTREMITIES: There is no peripheral edema. No clubbing, no cyanosis. Peripheral pulses are intact. - Labs CBC & Chem 7: 06/11/23 05:50 06/11/23 05:50 Labs: Abnormal Lab Results - Last 24 Hours (Table) 06/10/23 06/10/23 06/11/23 Range/Units 16:36 20:14 05:36 WBC (3.8-10.6) k/uL RBC (3.80-5.40) m/uL Hgb (11.4-16.0) gm/dL Hct (34.0-46.0) % MCV (80.0-100.0) fL MCHC (31.0-37.0) g/dL Neutrophils # (1.3-7.7) k/uL Lymphocytes # (1.0-4.8) k/uL BUN (9.0-27.0) mg/dL BUN/Creatinine Ratio (12.00-20.00) Ratio Glucose (70-110) mg/dL POC Glucose (mg/dL) 190 H 349 H 182 H (70-110) mg/dL 06/11/23 06/11/23 06/11/23 Range/Units 05:50 05:50 11:50 WBC 22.3 H (3.8-10.6) k/uL RBC 3.11 L (3.80-5.40) m/uL Hgb 9.7 L (11.4-16.0) gm/dL Hct 33.2 L (34.0-46.0) % MCV 106.9 H D (80.0-100.0) fL MCHC 29.2 L (31.0-37.0) g/dL Neutrophils # 21.6 H (1.3-7.7) k/uL Lymphocytes # 0.1 L (1.0-4.8) k/uL BUN 27.2 H (9.0-27.0) mg/dL BUN/Creatinine Ratio 38.86 H (12.00-20.00) Ratio Glucose 156 H (70-110) mg/dL POC Glucose (mg/dL) 183 H (70-110) mg/dL Microbiology - Last 24 Hours (Table) 06/09/23 09:15 Nasal Screen MRSA/MSSA - Final Nasal Swab 06/09/23 07:55 Blood Culture - Preliminary Blood 06/09/23 07:40 Blood Culture - Preliminary Blood Assessment and Plan Assessment: Acute hypoxic respiratory failure secondary to possible hospital-acquired pneumonia versus ongoing/worsening COVID-19 pneumonia and chronic bronchial asthma. Procalcitonin 0.12 Acute exacerbation of mild intermittent chronic bronchial asthma Recent discharge on May 31, 2023 for COVID-19 pneumonia, treated with remdesivir. Still testing positive Possible underlying interstitial lung disease History of coronary artery disease with previous PCI/stent x3 History of hyperlipidemia History of hypertension Moderate to severe mitral calcification and moderate to severe mitral stenosis and mild aortic regurgitation and stenosis. LV function is preserved and the patient has an ejection fraction of 60 to 65%. Rheumatoid arthritis History of hypothyroidism Lifelong non-smoker Plan: The patient was seen and evaluated Labs and medications reviewed Discontinue vancomycin Continue cefepime Continue Solu-Medrol and bronchodilators Continue oral diuretics Lovenox for DVT prophylaxis Titrate the FiO2 as tolerated Condition is guarded Patient and family discussing CODE STATUS We will continue to follow I have personally seen and examined the patient, performed the documentation and the assessment and plan as written. Number of minutes spent on the visit: 10.
[2023-06-11] MEDS: ENOXAPARIN 40 MG/0.4 ML SYRINGE SQ SCH (15:24)
[2023-06-11] MEDS ORDERED: VANCOMYCIN TROUGH DUE 1 EACH MISC MISCELLANE ONE (17:00)
[2023-06-11 17:57] LABS: Glucose,Whole Blood 165 mg/dL (70-110)
--- NOTE | 2023-06-12 07:23 | XR ---
EXAMINATION TYPE: XR chest 1V portable DATE OF EXAM: 06/12/2023 COMPARISON: 06/10/2023 INDICATION: Pneumonia TECHNIQUE: Single frontal view of the chest is obtained. FINDINGS: The heart size is normal. The pulmonary vasculature is normal. Diffuse patchy infiltrate is present throughout the bilateral lung stoll. Correlate for pneumonia. F indings are worsening from comparison IMPRESSION: 1. Worsening bilateral lung opacifications. Correlate for pneumonia. Consider ARDS.
--- NOTE | 2023-06-12 10:35 | P.PN ---
Subjective 82-year-old female, history of hypertension, hyperlipidemia, mitral valve prolapse, hypothyroidism, rheumatoid arthritis, CHF present to the emergency department with difficulty breathing. Onset was yesterday. Patient has had a cough for over a week. Patient has occasional yellow sputum. Patient did have COVID-19 pneumonia couple weeks ago and was in the hospital and discharged home. Patient is unaware of any fevers at home. Patient has chronic interstitial lung disease. She was just recently discharged from here on the 2023 after being treated for COVID-19 pneumonia. She did received remdesivir, bronchodilators and steroids. She is presented back to the emergency room this morning June 09, 2023 with complaints of increasing shortness of breath cough and congestion that started last evening. She did utilize her 's home oxygen without much improvement. She herself is not on home oxygen. X-ray shows patchy bilateral lung infiltrates compatible with atypical pneumonia possibly ongoing COVID-pneumonia. Suspect some underlying interstitial lung disease as well. White count 16.9. Hemoglobin 10.2. Platelets 265. Sodium 137. Potassium 4.1. Bicarb 29. BUN 21. Creatinine 0.51. proBNP 2430. AST 69. ALT 41. Procalcitonin 0.12. 06/10/2023 Patient awake and alert She has more shortness of breath today improved with higher oxygen from 2 up to 3 L/min Repeat chest x-ray showing patchy bilateral infiltrates, stable exam. No fever today but hemodynamically stable BMP is unremarkable Patient remains on IV cefepime, IV vancomycin and IV Solu-Medrol 60 mg and normal saline 75 mL/h 06/11/2023 Patient breathing is worse today, she is requiring nonrebreather 60 L/min with FiO2 of 90% and also she is tachypneic and anxious, As per staff patient and family declining intubation and if she deteriorates she might need to be placed on BiPAP WBC is 22.3, hemoglobin stable 9.7 She is currently covered with IV cefepime and IV vancomycin and IV Solu-Medrol. IV fluids was discontinued 06/12/2023 patient awake and alert, in mild distress because of her tachypnea but is improving Oxygen requirement down to 45 L/m No other new complaints. She remains on IV Solu-Medrol 60 mg in the broad-spectrum antibiotics cefepime and IV vancomycin Objective - Vital Signs Vital signs: Vital Signs Temp 97.9 F 06/12/23 07:45 Pulse 76 06/12/23 07:45 Resp 17 06/12/23 07:45 BP 147/76 06/12/23 07:45 Pulse Ox 95 06/12/23 07:45 FiO2 55 06/12/23 07:25 Intake & Output 06/11/23 06/12/23 06/12/23 18:59 06:59 18:59 Other: # Voids 2 2 # Bowel Movements 1 1 - Exam GENERAL: The patient is alert and oriented x3, not in any acute distress. Well developed, well nourished. HEENT: Pupils are round and equally reacting to light. EOMI. No scleral icterus. No conjunctival pallor. Normocephalic, atraumatic. No pharyngeal erythema. No thyromegaly. CARDIOVASCULAR: S1 and S2 present. No murmurs, rubs, or gallops. -PULMONARY: Chest is clear to auscultation, no wheezing , bilateral crackles. Tachypneic, mild ABDOMEN: Soft, nontender, nondistended, normoactive bowel sounds. No palpable organomegaly. MUSCULOSKELETAL: No joint swelling or deformity. EXTREMITIES: No cyanosis, clubbing, or pedal edema. NEUROLOGICAL: Gross neurological examination did not reveal any focal deficits. SKIN: No rashes. no petechiae. - Labs CBC & Chem 7: 06/11/23 05:50 06/11/23 05:50 Labs: Abnormal Lab Results - Last 24 Hours (Table) 06/11/23 06/11/23 06/11/23 Range/Units 05:50 11:50 17:55 BUN 27.2 H (9.0-27.0) mg/dL BUN/Creatinine Ratio 38.86 H (12.00-20.00) Ratio Glucose 156 H (70-110) mg/dL POC Glucose (mg/dL) 183 H 165 H (70-110) mg/dL Microbiology - Last 24 Hours (Table) 06/11/23 08:00 Gram Stain - Preliminary Sputum 06/09/23 07:55 Blood Culture - Preliminary Blood 06/09/23 07:40 Blood Culture - Preliminary Blood Assessment and Plan Assessment: 1. Acute hypoxic respiratory failure; multifactorial; hospital-acquired pneumonia versus COVID-19 pneumonia versus bronchial asthma --Increased oxygen requirement to high flow nasal cannula 2. Acute exacerbation of asthma -IV Solu-Medrol 60 mg every 6 hours; DuoNeb nebulizer treatments 4 times daily and as needed 3. Mild LETICIA; hold off on IV fluid therapy given worsening chest congestion; we will monitor renal function electrolytes closely; avoid nephrotoxins and hypotension 4. Hospital-acquired pneumonia; chest x-ray reveals significant worsening of pneumonia compared to 05/31/2023 -- Pulmonary on board and patient has been placed on IV cefepime and vancomycin 5. COVID-19 pneumonia; patient was recently admitted with COVID-19 pneumonia at which time she was treated with a full course of remdesivir -- Patient is placed on IV Solu-Medrol and bronchodilator therapy -- Patient remains on COVID-19 vitamin cocktail 6. Hypertension; verapamil SR 120 mg daily; metoprolol 100 mg daily and Imdur 30 mg daily 7. Hyperlipidemia; Lipitor 40 mg daily 8. Hypothyroidism; levothyroxine 112 mcg Saturday through Saturday and 56 mcg Saturday and Saturday 9. Coronary artery disease/CHF; status post PCI/stent x 3; patient remains on aspirin, Lipitor, Imdur -- Lasix 40 mg daily and Farxiga 5 mg daily 10. Mitral stenosis; patient has moderate to severe mitral calcifications causing moderate to severe mitral stenosis and mild aortic regurgitation and stenosis -- Last echocardiogram reveals an EF of 60 to 65% DVT prophylaxis; SCDs/subcu heparin CODE STATUS; full code
--- NOTE | 2023-06-12 13:54 | P.PN ---
Subjective Progress Note Date: 06/12/23 Principal diagnosis: Pneumonia. This is a very pleasant 82-year-old female patient with a known history of chronic bronchial asthma, mitral valve prolapse, hypertension, hyperlipidemia, CAD with previous stent, and a lifelong non-smoker. She was just recently discharged from here on the 2023 after being treated for COVID-19 pneumonia. She did received remdesivir, bronchodilators and steroids. She is presented back to the emergency room this morning June 09, 2023 with complaints of increasing shortness of breath cough and congestion that started last evening. She did utilize her 's home oxygen without much improvement. She herself is not on home oxygen. X-ray shows patchy bilateral lung infiltrates compatible with atypical pneumonia possibly ongoing COVID-pneumonia. Suspect some underlying interstitial lung disease as well. White count 16.9. Hemoglobin 10.2. Platelets 265. Sodium 137. Potassium 4.1. Bicarb 29. BUN 21. Creatinine 0.51. proBNP 2430. AST 69. ALT 41. Procalcitonin 0.12. She is seen today in the emergency room in consultation. She is sitting up in the stretcher. Awake and alert in no acute distress. Maintaining O2 saturations in the upper 90s on 2 L/min per nasal cannula. She is afebrile. Hemodynamically stable. The patient is seen today June 10, 2023 in follow-up on the regular medical floor. She is currently sitting up in bed. Awake and alert in no acute distress. She still has a loose congested cough. Still dyspneic with conversation. Dyspneic with minimal exertion. She is maintaining O2 saturation in the 90s on 3 L/min per nasal cannula. No IV fluids. Her procalcitonin was 0.12. She is continued on vancomycin and cefepime. Her COVID screen today is positive still. Chest x-ray continues to show patchy bilateral infiltrates stable compared to previous. She remains on bronchodilators and steroids. White count 18.9. Hemoglobin 9.5. Platelets 239. Sodium 140. Potassium 4.3. Bicarb 23. BUN 26. Creatinine 0.65. Glucose 138. The patient is seen today June 11, 2023 in follow-up on the regular medical floor. She is currently seen at the bedside. Family is in the room. She had a rough night. She was having increasing shortness of breath cough and congestion. She was increased to 5 L/min per nasal cannula. She was initiated on Tessalon Perles. Her procalcitonin was 0.12. She continues on cefepime and vancomycin. She remains on Symbicort, albuterol, Solu-Medrol. Blood cultures revealed no growth. Nasal swab was negative for MRSA. White count 22.3. Hemoglobin 9.7. Platelets 275. Sodium 143. Potassium 4.6. Bicarb 25. BUN 27. Creatinine 0.7. Glucose 156. Remains on diuretics. Progress note dated June 12, 2023. This is an 82-year-old female that I see in the office for asthma. She presented to the hospital, few days ago, with increasing shortness of breath, and had a chest x-ray that was suggestive of pneumonia. The patient recently had coronavirus infection. Currently, the patient's respiratory status is declining, and she is now on Airvo. Airvo settings include 45 L/min, and 55%, with a saturation of 95%. The patient is not receiving any IV fluids. She is getting both cefepime and vancomycin. In addition, the patient is receiving Solu-Medrol, albuterol inhaler, and Symbicort inhaler. She did test positive for coronavirus, but is unclear as to whether or not this is a residual positive test from her recent episode of coronavirus, or she has coronavirus again. We had a long conversation yesterday about CODE STATUS. She would want to be on the mechanical ventilator, if it came to that. No new labs today. Labs from June 10 have been reviewed. This morning's chest x-ray, may be a bit worse. Objective - Vital Signs Vital signs: Vital Signs Temp 97.9 F 06/12/23 07:45 Pulse 76 06/12/23 07:45 Resp 17 06/12/23 07:45 BP 147/76 06/12/23 07:45 Pulse Ox 95 06/12/23 07:45 FiO2 55 06/12/23 11:08 Intake & Output 06/11/23 06/12/23 06/12/23 18:59 06:59 18:59 Other: # Voids 2 2 # Bowel Movements 1 1 - Exam No acute distress, oriented 3. Currently on the Airvo device. Mild conversational dyspnea. HEENT examination is grossly unremarkable. Mucous membranes are moist. No oral lesions. Neck supple. Full range of motion. No adenopathy thyromegaly or neck vein distention. Cardiovascular examination reveals regular rhythm rate. S1-S2 normal. No S3 or S4. No discernible murmur noted. Heart sounds are distant. Heart rate 76 bpm. Lungs reveal coarse breath inspiratory and expiratory rhonchi and crackles. No wheezes. Breath sounds are equal bilaterally. Saturations on Airvo, are in the mid 90s. The patient does have some mild conversational dyspnea. Abdomen soft bowel sounds are heard. No masses or tenderness. Extremities are intact. No cyanosis clubbing or edema. Skin is without rash or lesion. Neurologic examination is brief but nonfocal. - Labs CBC & Chem 7: 06/11/23 05:50 06/11/23 05:50 Labs: Abnormal Lab Results - Last 24 Hours (Table) 06/11/23 Range/Units 17:55 POC Glucose (mg/dL) 165 H (70-110) mg/dL Microbiology - Last 24 Hours (Table) 06/11/23 08:00 Gram Stain - Preliminary Sputum 06/09/23 07:55 Blood Culture - Preliminary Blood 06/09/23 07:40 Blood Culture - Preliminary Blood Assessment and Plan Assessment: Acute hypoxic respiratory failure secondary to possible hospital-acquired pneumonia versus ongoing/worsening COVID-19 pneumonia and chronic bronchial asthma. Procalcitonin 0.12. Acute exacerbation of mild intermittent chronic bronchial asthma. Recent discharge on May 31, 2023 for COVID-19 pneumonia. Possible underlying interstitial lung disease. History of coronary artery disease with previous PCI/stent x3 . History of hyperlipidemia. History of hypertension. Moderate to severe mitral calcification and moderate to severe mitral stenosis and mild aortic regurgitation and stenosis. LV function is preserved and the patient has an ejection fraction of 60 to 65%. Rheumatoid arthritis. History of hypothyroidism. Lifelong non-smoker. Plan: Plan dated June 12, 2023. Currently, the patient is on appropriate medications including antibiotics in the form of vancomycin and cefepime, Solu-Medrol, albuterol inhaler, and Symbicort inhaler. In addition, to optimize oxygen to the patient, we placed her on Airvo, with settings of 45 L/min, and an FiO2 of 55%. Her saturations are 95%. I have asked her to either sit up in bed, or sit up in the chair. That way, her diaphragm works more optimally. Prognosis is guarded. Today's chest x-ray looks a bit worse. We will continue to follow make recommendations along the way. The patient was agreeable to intubation and mechanical ventilation should it come to that. Time with Patient: Less than 30
--- NOTE | 2023-06-13 09:29 | P.PN ---
Subjective 82-year-old female, history of hypertension, hyperlipidemia, mitral valve prolapse, hypothyroidism, rheumatoid arthritis, CHF present to the emergency department with difficulty breathing. Onset was yesterday. Patient has had a cough for over a week. Patient has occasional yellow sputum. Patient did have COVID-19 pneumonia couple weeks ago and was in the hospital and discharged home. Patient is unaware of any fevers at home. Patient has chronic interstitial lung disease. She was just recently discharged from here on the 2023 after being treated for COVID-19 pneumonia. She did received remdesivir, bronchodilators and steroids. She is presented back to the emergency room this morning June 09, 2023 with complaints of increasing shortness of breath cough and congestion that started last evening. She did utilize her 's home oxygen without much improvement. She herself is not on home oxygen. X-ray shows patchy bilateral lung infiltrates compatible with atypical pneumonia possibly ongoing COVID-pneumonia. Suspect some underlying interstitial lung disease as well. White count 16.9. Hemoglobin 10.2. Platelets 265. Sodium 137. Potassium 4.1. Bicarb 29. BUN 21. Creatinine 0.51. proBNP 2430. AST 69. ALT 41. Procalcitonin 0.12. 06/10/2023 Patient awake and alert She has more shortness of breath today improved with higher oxygen from 2 up to 3 L/min Repeat chest x-ray showing patchy bilateral infiltrates, stable exam. No fever today but hemodynamically stable BMP is unremarkable Patient remains on IV cefepime, IV vancomycin and IV Solu-Medrol 60 mg and normal saline 75 mL/h 06/11/2023 Patient breathing is worse today, she is requiring nonrebreather 60 L/min with FiO2 of 90% and also she is tachypneic and anxious, As per staff patient and family declining intubation and if she deteriorates she might need to be placed on BiPAP WBC is 22.3, hemoglobin stable 9.7 She is currently covered with IV cefepime and IV vancomycin and IV Solu-Medrol. IV fluids was discontinued 06/12/2023 patient awake and alert, in mild distress because of her tachypnea but is improving Oxygen requirement down to 45 L/m No other new complaints. She remains on IV Solu-Medrol 60 mg in the broad-spectrum antibiotics cefepime and IV vancomycin 06/13/2023 Patient sitting up in chair, her breathing rate is similar to yesterday She is still on high flow nasal cannula at 45 L/min She remains on IV cefepime and Vanco vancomycin, she is on IV Solu-Medrol. No IV fluid Daughter at bedside and all questions answered and they are agreeable with the plan Objective - Vital Signs Vital signs: Vital Signs Temp 97.6 F 06/13/23 07:30 Pulse 66 06/13/23 07:30 Resp 18 06/13/23 07:30 BP 123/73 06/13/23 07:30 Pulse Ox 96 06/13/23 08:38 FiO2 50 06/13/23 08:38 Intake & Output 06/12/23 06/13/23 06/13/23 18:59 06:59 18:59 Other: Voiding Method Bedside Commode # Voids 3 2 - Exam GENERAL: The patient is alert and oriented x3, not in any acute distress. Well developed, well nourished. HEENT: Pupils are round and equally reacting to light. EOMI. No scleral icterus. No conjunctival pallor. Normocephalic, atraumatic. No pharyngeal erythema. No thyromegaly. CARDIOVASCULAR: S1 and S2 present. No murmurs, rubs, or gallops. -PULMONARY: Chest is clear to auscultation, no wheezing , bilateral crackles. Tachypneic, mild ABDOMEN: Soft, nontender, nondistended, normoactive bowel sounds. No palpable organomegaly. MUSCULOSKELETAL: No joint swelling or deformity. EXTREMITIES: No cyanosis, clubbing, or pedal edema. NEUROLOGICAL: Gross neurological examination did not reveal any focal deficits. SKIN: No rashes. no petechiae. - Labs CBC & Chem 7: 06/11/23 05:50 06/11/23 05:50 Labs: Microbiology - Last 24 Hours (Table) 06/09/23 07:55 Blood Culture - Preliminary Blood 06/09/23 07:40 Blood Culture - Preliminary Blood 06/11/23 08:00 Gram Stain - Preliminary Sputum Assessment and Plan Assessment: 1. Acute hypoxic respiratory failure; multifactorial; hospital-acquired pneumonia versus COVID-19 pneumonia versus bronchial asthma --Increased oxygen requirement to high flow nasal cannula 2. Acute exacerbation of asthma -IV Solu-Medrol 60 mg every 6 hours; DuoNeb nebulizer treatments 4 times daily and as needed 3. Mild LETICIA; hold off on IV fluid therapy given worsening chest congestion; we will monitor renal function electrolytes closely; avoid nephrotoxins and hypotension 4. Hospital-acquired pneumonia; chest x-ray reveals significant worsening of pneumonia compared to 05/31/2023 -- Pulmonary on board and patient has been placed on IV cefepime and vancomycin 5. COVID-19 pneumonia; patient was recently admitted with COVID-19 pneumonia at which time she was treated with a full course of remdesivir -- Patient is placed on IV Solu-Medrol and bronchodilator therapy -- Patient remains on COVID-19 vitamin cocktail 6. Hypertension; verapamil SR 120 mg daily; metoprolol 100 mg daily and Imdur 30 mg daily 7. Hyperlipidemia; Lipitor 40 mg daily 8. Hypothyroidism; levothyroxine 112 mcg Saturday through Saturday and 56 mcg Saturday and Saturday 9. Coronary artery disease/CHF; status post PCI/stent x 3; patient remains on aspirin, Lipitor, Imdur -- Lasix 40 mg daily and Farxiga 5 mg daily 10. Mitral stenosis; patient has moderate to severe mitral calcifications causing moderate to severe mitral stenosis and mild aortic regurgitation and stenosis -- Last echocardiogram reveals an EF of 60 to 65% DVT prophylaxis; SCDs/subcu heparin CODE STATUS; full code
[2023-06-13 10:04] LABS: Basophils # (A) 0.01 X 10*3/uL (0.00-0.10); Basophils % (A) 0.1 %; Eosinophils # (A) 0.02 X 10*3/uL (0.04-0.35); Eosinophils % (A) 0.2 %; HCT 30.6 % (37.2-46.3); Lymphocytes # (A) 0.36 X 10*3/uL (0.90-5.00); Lymphocytes % (A) 2.9 %; MCH 30.6 pg (27.0-32.0); MCHC 29.4 g/dL (32.0-37.0); MCV 104.1 FL (80.0-97.0); Mean Platelet Volume 10.6 FL (9.5-12.2); Monocytes # (A) 0.22 X 10*3/uL (0.20-1.00); Monocytes % (A) 1.8 %; NRBC Per 100 WBC 0 X 10*3/uL (0.00-0.01); Neutrophils # (A) 11.56 X 10*3/uL (1.80-7.70); Neutrophils % (A) 94.3 %; Platelet Count 180 X 10*3/uL (140-440); RBC 2.94 X 10*6/uL (4.10-5.20); WBC 12.26 X 10*3/uL (4.50-10.00)
[2023-06-13 10:18] LABS: Blood Urea Nitrogen 32.9 mg/dL (9.0-27.0); Calcium 8.7 mg/dL (8.7-10.3); Carbon Dioxide 31.1 mmol/L (21.6-31.8); Chloride 104 mmol/L (96-109); Glucose 175 mg/dL (70-110); Potassium 4.6 mmol/L (3.5-5.5); Sodium 143 mmol/L (135-145)
--- NOTE | 2023-06-13 11:53 | P.PN ---
Subjective Progress Note Date: 06/13/23 This is a very pleasant 82-year-old female patient with a known history of chronic bronchial asthma, mitral valve prolapse, hypertension, hyperlipidemia, CAD with previous stent, and a lifelong non-smoker. She was just recently discharged from here on the 2023 after being treated for COVID-19 pneumo nitesh. She did received remdesivir, bronchodilators and steroids. She is presented back to the emergency room this morning June 09, 2023 with complaints of increasing shortness of breath cough and congestion that started last evening. She did utilize her 's home oxygen without much improvement. She herself is not on home oxygen. X-ray shows patchy bilateral lung infiltrates compatible with atypical pneumonia possibly ongoing COVID-pneumonia. Suspect some underlying interstitial lung disease as well. White count 16.9. Hemoglobin 10.2. Platelets 265. Sodium 137. Potassium 4.1. Bicarb 29. BUN 21. Creatinine 0.51. proBNP 2430. AST 69. ALT 41. Procalcitonin 0.12. She is seen today in the emergency room in consultation. She is sitting up in the stretcher. Awake and alert in no acute distress. Maintaining O2 saturations in the upper 90s on 2 L/min per nasal cannula. She is afebrile. Hemodynamically stable. The patient is seen today June 10, 2023 in follow-up on the regular medical floor. She is currently sitting up in bed. Awake and alert in no acute distres s. She still has a loose congested cough. Still dyspneic with conversation. Dyspneic with minimal exertion. She is maintaining O2 saturation in the 90s on 3 L/min per nasal cannula. No IV fluids. Her procalcitonin was 0.12. She is continued on vancomycin and cefepime. Her COVID screen today is positive still. Chest x-ray continues to show patchy bilateral infiltrates stable compared to previous. She remains on bronchodilators and steroids. White count 18.9. Hemoglobin 9.5. Platelets 239. Sodium 140. Potassium 4.3. Bicarb 23. BUN 26. Creatinine 0.65. Glucose 138. The patient is seen today June 11, 2023 in follow-up on the regular medical floor. She is currently seen at the bedside. Family is in the room. She had a rough night. She was having increasing shortness of breath cough and congestion. She was increased to 5 L/min per nasal cannula. She was initiated on Tessalon Perles. Her procalcitonin was 0.12. She continues on cefepime and vancomycin. She remains on Symbicort, albuterol, Solu-Medrol. Blood cultures revealed no growth. Nasal swab was negative for MRSA. White count 22.3. Hemoglobin 9.7. Platelets 275. Sodium 143. Potassium 4.6. Bicarb 25. BUN 27. Creatinine 0.7. Glucose 156. Remains on diuretics. Progress note dated June 12, 2023. This is an 82-year-old female that I see in the office for asthma. She presented to the hospital, few days ago, with increasing shortness of breath, and had a chest x-ray that was suggestive of pneumonia. The patient recently had coronavirus infection. Currently, the patient's respiratory status is declining, and she is now on Airvo. Airvo settings include 45 L/min, and 55%, with a saturation of 95%. The patient is not receiving any IV fluids. She is getting both cefepime and vancomycin. In addition, the patient is receiving Solu-Medrol, albuterol inhaler, and Symbicort inhaler. She did test positive for coronavirus, but is unclear as to whether or not this is a residual positive test from her recent episode of coronavirus, or she has coronavirus again. We had a long conversation yesterday about CODE STATUS. She would want to be on the mechanical ventilator, if it came to that. No new labs today. Labs from June 10 have been reviewed. This morning's chest x-ray, may be a bit worse. The patient is seen today June 13, 2023 in follow-up on the regular medical floor. She is currently sitting up in a chair at the bedside. Awake and alert in no acute distress. She is breathing a bit easier today compared to yesterday. Her Airvo has been decreased to 45 L and 50% FiO2 with O2 saturation in the low 90s. Blood cultures revealed no growth. Sputum culture revealed no growth. White count 12.2. Hemoglobin 9.0. Platelets 180. Sodium 143. Potassium 4.6. Bicarb 31. BUN 33. Creatinine 0.7. Glucose 175. She is continued on cefepime. Remains on bronchodilators, steroids, vitamin supplements. Remains on oral diuretics. Objective - Vital Signs Vital signs: Vital Signs Temp 97.6 F 06/13/23 07:30 Pulse 66 06/13/23 07:30 Resp 18 06/13/23 07:30 BP 123/73 06/13/23 07:30 Pulse Ox 96 06/13/23 08:38 FiO2 50 06/13/23 08:38 Intake & Output 06/12/23 06/13/23 06/13/23 18:59 06:59 18:59 Other: Voiding Method Bedside Commode # Voids 3 2 - Exam GENERAL EXAM: Alert, 82-year-old female, up in a chair, on Airvo high flow oxygen at 45 L and 50% FiO2, in mild respiratory distress. HEAD: Normocephalic. EYES: Normal reaction of pupils, equal size. NOSE: Clear with pink turbinates. THROAT: No erythema or exudates. NECK: No masses, no JVD. CHEST: No chest wall deformity. LUNGS: Equal air entry with coarse crackles in the bilateral bases. CVS: S1 and S2 normal with no audible murmur, regular rhythm. ABDOMEN: No hepatosplenomegaly, normal bowel sounds, no guarding or rigidity. SPINE: No scoliosis or deformity SKIN: No rashes CENTRAL NERVOUS SYSTEM: No focal deficits, tone is normal in all 4 extremities. EXTREMITIES: There is no peripheral edema. No clubbing, no cyanosis. Peripheral pulses are intact. - Labs CBC & Chem 7: 06/13/23 07:45 06/13/23 07:45 Labs: Abnormal Lab Results - Last 24 Hours (Table) 06/13/23 06/13/23 Range/Units 07:45 07:45 WBC 12.26 H (4.50-10.00) X 10*3/uL RBC 2.94 L (4.10-5.20) X 10*6/uL Hgb 9.0 L (12.0-15.0) g/dL Hct 30.6 L (37.2-46.3) % MCV 104.1 H (80.0-97.0) FL MCHC 29.4 L (32.0-37.0) g/dL RDW 15.0 H (11.5-14.5) % Immature Gran # 0.09 H (0.00-0.04) X 10*3/uL Neutrophils # 11.56 H (1.80-7.70) X 10*3/uL Lymphocytes # 0.36 L (0.90-5.00) X 10*3/uL Eosinophils # 0.02 L (0.04-0.35) X 10*3/uL BUN 32.9 H (9.0-27.0) mg/dL BUN/Creatinine Ratio 47.00 H (12.00-20.00) Ratio Glucose 175 H (70-110) mg/dL Microbiology - Last 24 Hours (Table) 06/11/23 08:00 Gram Stain - Final Sputum Sputum Culture - Final 06/09/23 07:55 Blood Culture - Preliminary Blood 06/09/23 07:40 Blood Culture - Preliminary Blood Assessment and Plan Assessment: Acute hypoxic respiratory failure secondary to possible hospital-acquired pneumonia versus ongoing/worsening COVID-19 pneumonia and chronic bronchial asthma. Procalcitonin 0.12, remains on cefepime. Requiring Airvo high flow oxygen currently at 45 L and 50% FiO2. Continued on bronchodilators and steroids, vitamin supplements Acute exacerbation of mild intermittent chronic bronchial asthma Recent discharge on May 31, 2023 for COVID-19 pneumonia, treated with remdesivir. Still testing positive Possible underlying interstitial lung disease History of coronary artery disease with previous PCI/stent x3 History of hyperlipidemia History of hypertension Moderate to severe mitral calcification and moderate to severe mitral stenosis and mild aortic regurgitation and stenosis. LV function is preserved and the patient has an ejection fraction of 60 to 65%. Rheumatoid arthritis History of hypothyroidism Lifelong non-smoker Plan: The patient was seen and evaluated Labs and medications reviewed Continue the current treatment plan Remains on Airvo high flow oxygen Titrate the FiO2 as tolerated Condition is guarded Patient requests full CODE STATUS We will continue to follow I have personally seen and examined the patient, performed the documentation and the assessment and plan as written. Number of minutes spent on the visit: 10.
[2023-06-14 10:03] VITALS: BMI 19.9
[2023-06-14 10:25] LABS: Basophils # (A) 0.01 X 10*3/uL (0.00-0.10); Basophils % (A) 0.1 %; Eosinophils # (A) 0 X 10*3/uL (0.04-0.35); Eosinophils % (A) 0 %; HCT 29.2 % (37.2-46.3); HGB 8.7 g/dL (12.0-15.0); Lymphocytes # (A) 0.37 X 10*3/uL (0.90-5.00); Lymphocytes % (A) 2.8 %; MCH 30.6 pg (27.0-32.0); MCHC 29.8 g/dL (32.0-37.0); MCV 102.8 FL (80.0-97.0); Mean Platelet Volume 10.6 FL (9.5-12.2); Monocytes # (A) 0.27 X 10*3/uL (0.20-1.00); Monocytes % (A) 2.1 %; NRBC Per 100 WBC 0 X 10*3/uL (0.00-0.01); Neutrophils # (A) 12.47 X 10*3/uL (1.80-7.70); Neutrophils % (A) 94.7 %; Platelet Count 171 X 10*3/uL (140-440); RBC 2.84 X 10*6/uL (4.10-5.20); RDW 14.8 % (11.5-14.5); WBC 13.16 X 10*3/uL (4.50-10.00)
--- NOTE | 2023-06-14 12:22 | P.PN ---
Subjective Progress Note Date: 06/14/23 Principal diagnosis: Pneumonia. This is a very pleasant 82-year-old female patient with a known history of chronic bronchial asthma, mitral valve prolapse, hypertension, hyperlipidemia, CAD with previous stent, and a lifelong non-smoker. She was just recently discharged from here on the 2023 after being treated for COVID-19 pneumonia. She did received remdesivir, bronchodilators and steroids. She is presented back to the emergency room this morning June 09, 2023 with complaints of increasing shortness of breath cough and congestion that started last evening. She did utilize her 's home oxygen without much improvement. She herself is not on home oxygen. X-ray shows patchy bilateral lung infiltrates compatible with atypical pneumonia possibly ongoing COVID-pneumonia. Suspect some underlying interstitial lung disease as well. White count 16.9. Hemoglobin 10.2. Platelets 265. Sodium 137. Potassium 4.1. Bicarb 29. BUN 21. Creatinine 0.51. proBNP 2430. AST 69. ALT 41. Procalcitonin 0.12. She is seen today in the emergency room in consultation. She is sitting up in the stretcher. Awake and alert in no acute distress. Maintaining O2 saturations in the upper 90s on 2 L/min per nasal cannula. She is afebrile. Hemodynamically stable. The patient is seen today June 10, 2023 in follow-up on the regular medical floor. She is currently sitting up in bed. Awake and alert in no acute distress. She still has a loose congested cough. Still dyspneic with conversation. Dyspneic with minimal exertion. She is maintaining O2 saturation in the 90s on 3 L/min per nasal cannula. No IV fluids. Her procalcitonin was 0.12. She is continued on vancomycin and cefepime. Her COVID screen today is positive still. Chest x-ray continues to show patchy bilateral infiltrates stable compared to previous. She remains on bronchodilators and steroids. White count 18.9. Hemoglobin 9.5. Platelets 239. Sodium 140. Potassium 4.3. Bicarb 23. BUN 26. Creatinine 0.65. Glucose 138. The patient is seen today June 11, 2023 in follow-up on the regular medical floor. She is currently seen at the bedside. Family is in the room. She had a rough night. She was having increasing shortness of breath cough and congestion. She was increased to 5 L/min per nasal cannula. She was initiated on Tessalon Perles. Her procalcitonin was 0.12. She continues on cefepime and vancomycin. She remains on Symbicort, albuterol, Solu-Medrol. Blood cultures revealed no growth. Nasal swab was negative for MRSA. White count 22.3. Hemoglobin 9.7. Platelets 275. Sodium 143. Potassium 4.6. Bicarb 25. BUN 27. Creatinine 0.7. Glucose 156. Remains on diuretics. Progress note dated June 12, 2023. This is an 82-year-old female that I see in the office for asthma. She presented to the hospital, few days ago, with increasing shortness of breath, and had a chest x-ray that was suggestive of pneumonia. The patient recently had coronavirus infection. Currently, the patient's respiratory status is declining, and she is now on Airvo. Airvo settings include 45 L/min, and 55%, with a saturation of 95%. The patient is not receiving any IV fluids. She is getting both cefepime and vancomycin. In addition, the patient is receiving Solu-Medrol, albuterol inhaler, and Symbicort inhaler. She did test positive for coronavirus, but is unclear as to whether or not this is a residual positive test from her recent episode of coronavirus, or she has coronavirus again. We had a long conversation yesterday about CODE STATUS. She would want to be on the mechanical ventilator, if it came to that. No new labs today. Labs from June 10 have been reviewed. This morning's chest x-ray, may be a bit worse. Progress note dated June 14, 2023. 82-year-old female with a history of asthma, and aortic stenosis. The patient was admitted with a diagnosis of possible pneumonia. The patient had a recent episode of coronavirus infection, and did test positive on this admission again for coronavirus. Today she is sitting in a chair next to her hospital bed. She has been weaned off Airvo, down to high flow nasal cannula at 7 L. She is receiving cefepime. She does feel better. Current labs include a white count of 13.2, hemoglobin 8.7, hematocrit 29.2, and a platelet count of 171,000. Objective - Vital Signs Vital signs: Vital Signs Temp 97.9 F 06/14/23 07:39 Pulse 73 06/14/23 07:39 Resp 20 06/14/23 10:21 BP 137/68 06/14/23 07:39 Pulse Ox 96 06/14/23 09:23 FiO2 40 06/13/23 16:02 Intake & Output 06/13/23 06/14/23 06/14/23 18:59 06:59 18:59 Weight 49.442 kg Other: Voiding Method Bedside Commode Bedside Commode Bedside Commode # Voids 2 1 - Exam No acute distress, oriented 3. Currently on high flow nasal O2 at 7 L. HEENT examination is grossly unremarkable. Mucous membranes are moist. No oral lesions. Neck supple. Full range of motion. No adenopathy thyromegaly or neck vein distention. Cardiovascular examination reveals regular rhythm rate. S1-S2 normal. No S3 or S4. The patient has a harsh systolic murmur consistent with her known history of aortic stenosis. Heart sounds are distant. Heart rate 73 bpm. Lungs reveal coarse breath inspiratory and expiratory rhonchi and crackles. No wheezes. Breath sounds are equal bilaterally. Saturations are 96%, to 97%, on high flow nasal cannula. Abdomen soft bowel sounds are heard. No masses or tenderness. Extremities are intact. No cyanosis clubbing or edema. Skin is without rash or lesion. Neurologic examination is brief but nonfocal. - Labs CBC & Chem 7: 06/14/23 07:39 06/13/23 07:45 Labs: Abnormal Lab Results - Last 24 Hours (Table) 06/14/23 Range/Units 07:39 WBC 13.16 H (4.50-10.00) X 10*3/uL RBC 2.84 L (4.10-5.20) X 10*6/uL Hgb 8.7 L (12.0-15.0) g/dL Hct 29.2 L (37.2-46.3) % MCV 102.8 H (80.0-97.0) FL MCHC 29.8 L (32.0-37.0) g/dL RDW 14.8 H (11.5-14.5) % Neutrophils # 12.47 H (1.80-7.70) X 10*3/uL Lymphocytes # 0.37 L (0.90-5.00) X 10*3/uL Eosinophils # 0 L (0.04-0.35) X 10*3/uL Microbiology - Last 24 Hours (Table) 06/11/23 08:00 Gram Stain - Final Sputum Sputum Culture - Final Assessment and Plan Assessment: Acute hypoxic respiratory failure secondary to possible hospital-acquired pneumonia versus ongoing/worsening COVID-19 pneumonia and chronic bronchial asthma. Procalcitonin 0.12. Acute exacerbation of mild intermittent chronic bronchial asthma. Recent discharge on May 31, 2023 for COVID-19 pneumonia. Possible underlying interstitial lung disease. History of aortic stenosis. History of coronary artery disease with previous PCI/stent x3 . History of hyperlipidemia. History of hypertension. Moderate to severe mitral calcification and moderate to severe mitral stenosis and mild aortic regurgitation and stenosis. LV function is preserved and the patient has an ejection fraction of 60 to 65%. Rheumatoid arthritis. History of hypothyroidism. Lifelong non-smoker. Plan: Plan dated June 12, 2023. Currently, the patient is on appropriate medications including antibiotics in the form of vancomycin and cefepime, Solu-Medrol, albuterol inhaler, and Symbicort inhaler. In addition, to optimize oxygen to the patient, we placed her on Airvo, with settings of 45 L/min, and an FiO2 of 55%. Her saturations are 95%. I have asked her to either sit up in bed, or sit up in the chair. That way, her diaphragm works more optimally. Prognosis is guarded. Today's chest x-ray looks a bit worse. We will continue to follow make recommendations along the way. The patient was agreeable to intubation and mechanical ventilation should it come to that. Plan dated June 14, 2023. The patient appears to be doing a bit better today. She has been weaned down to high flow nasal cannula, at 6 L. Saturations are 96%. Labs, x-rays, medications are reviewed. The patient is receiving appropriate medications including Solu-Medrol, cefepime, albuterol inhaler, and Symbicort. We will continue to follow make recommendations along the way. Prognosis is certainly guarded. Time with Patient: Less than 30
--- NOTE | 2023-06-14 13:12 | P.PN ---
Subjective Progress Note Date: 06/14/23 82-year-old female, history of hypertension, hyperlipidemia, mitral valve prolapse, hypothyroidism, rheumatoid arthritis, CHF present to the emergency department with difficulty breathing. Onset was yesterday. Patient has had a cough for over a week. Patient has occasional yellow sputum. Patient did have COVID-19 pneumonia couple weeks ago and was in the hospital and discharged home. Patient is unaware of any fevers at home. Patient has chronic interstitial lung disease. She was just recently discharged from here on the 2023 after being treated for COVID-19 pneumonia. She did received remdesivir, bronchodilators and steroids. She is presented back to the emergency room this morning June 09, 2023 with complaints of increasing shortness of breath cough and congestion that started last evening. She did utilize her 's home oxygen without much improvement. She herself is not on home oxygen. X-ray shows patchy bilateral lung infiltrates compatible with atypical pneumonia possibly ongoing COVID-pneumonia. Suspect some underlying interstitial lung disease as well. White count 16.9. Hemoglobin 10.2. Platelets 265. Sodium 137. Potassium 4.1. Bicarb 29. BUN 21. Creatinine 0.51. proBNP 2430. AST 69. ALT 41. Procalcitonin 0.12. 06/10/2023 Patient awake and alert She has more shortness of breath today improved with higher oxygen from 2 up to 3 L/min Repeat chest x-ray showing patchy bilateral infiltrates, stable exam. No fever today but hemodynamically stable BMP is unremarkable Patient remains on IV cefepime, IV vancomycin and IV Solu-Medrol 60 mg and n ormal saline 75 mL/h 06/11/2023 Patient breathing is worse today, she is requiring nonrebreather 60 L/min with FiO2 of 90% and also she is tachypneic and anxious, As per staff patient and family declining intubation and if she deteriorates she might need to be placed on BiPAP WBC is 22.3, hemoglobin stable 9.7 She is currently covered with IV cefepime and IV vancomycin and IV Solu-Medrol. IV fluids was discontinued 06/12/2023 patient awake and alert, in mild distress because of her tachypnea but is improving Oxygen requirement down to 45 L/m No other new complaints. She remains on IV Solu-Medrol 60 mg in the broad-spectrum antibiotics cefepime and IV vancomycin 06/13/2023 Patient sitting up in chair, her breathing rate is similar to yesterday She is still on high flow nasal cannula at 45 L/min She remains on IV cefepime and Vanco vancomycin, she is on IV Solu-Medrol. No IV fluid Daughter at bedside and all questions answered and they are agreeable with the plan 06/13. Patient seen and examined. Patient oxygen is improved, currently on 3 L of oxygen via nasal cannula. Still is weak. Gets short of breath on exertion. REVIEW OF SYSTEMS: CONSTITUTIONAL: No fever, no malaise,. CARDIOVASCULAR: No chest pain, no palpitations, no syncope. PULMONARY: As mentioned above GASTROINTESTINAL: No diarrhea, no nausea, no vomiting, no abdominal pain. NEUROLOGICAL: No headaches, no weakness, PHYSICAL EXAMINATION: GENERAL: The patient is alert and oriented x3, not in any acute distress. Well developed, well nourished. HEENT: Pupils are round and equally reacting to light. EOMI. No scleral icterus. No conjunctival pallor. Normocephalic, atraumatic. No pharyngeal erythema. No thyromegaly. CARDIOVASCULAR: S1 and S2 present. No murmurs, rubs, or gallops. PULMONARY: Coarse breath sounds bilaterally, bilateral expiratory rhonchi audible . ABDOMEN: Soft, nontender, nondistended, normoactive bowel sounds. No palpable organomegaly. MUSCULOSKELETAL: No joint swelling or deformity. EXTREMITIES: No cyanosis, clubbing, or pedal edema. NEUROLOGICAL: Gross neurological examination did not reveal any focal deficits. SKIN: No rashes. Assessment and plan Acute hypoxic respiratory failure hospital-acquired pneumonia COVID-19 pneumonia Acute exacerbation of asthma Mild LETICIA Hypertension Hyperlipidemia; Lipitor 40 mg daily Hypothyroidism; levothyroxine 112 mcg Saturday through Saturday and 56 mcg Saturday and Saturday Coronary artery disease/CHF; status post PCI/stent x 3; patient remains on aspirin, Lipitor, Imdur Mitral stenosis; patient has moderate to severe mitral calcifications causing moderate to severe mitral stenosis and mild aortic regurgitation and stenosis -- Last echocardiogram reveals an EF of 60 to 65% Monitor vital signs Monitor CBC Monitor CMP Continue telemetry monitoring Encourage use of incentive spirometer Continue oxygen supplementation Continue breathing treatments Continue IV cefepime vancomycin Pulmonology following Labs and medication were reviewed.. Continue same treatment. Continue with symptomatic treatment. Resume home medication. Monitor labs and vitals. DVT and GI prophylaxis. Further recommendations as per clinical course of the patient Dictation was produced using [employer] dictation software. please excuse any grammatical, word or spelling errors. Objective - Vital Signs Vital signs: Vital Signs Temp 97.9 F 06/14/23 07:39 Pulse 73 06/14/23 07:39 Resp 19 06/14/23 07:39 BP 137/68 06/14/23 07:39 Pulse Ox 96 06/14/23 09:23 FiO2 40 06/13/23 16:02 Intake & Output 06/13/23 06/14/23 06/14/23 18:59 06:59 18:59 Weight 49.442 kg Other: Voiding Method Bedside Commode Bedside Commode # Voids 2 1 - Labs CBC & Chem 7: 06/14/23 07:39 06/13/23 07:45 Labs: Abnormal Lab Results - Last 24 Hours (Table) 06/13/23 06/13/23 Range/Units 07:45 07:45 WBC 12.26 H (4.50-10.00) X 10*3/uL RBC 2.94 L (4.10-5.20) X 10*6/uL Hgb 9.0 L (12.0-15.0) g/dL Hct 30.6 L (37.2-46.3) % MCV 104.1 H (80.0-97.0) FL MCHC 29.4 L (32.0-37.0) g/dL RDW 15.0 H (11.5-14.5) % Immature Gran # 0.09 H (0.00-0.04) X 10*3/uL Neutrophils # 11.56 H (1.80-7.70) X 10*3/uL Lymphocytes # 0.36 L (0.90-5.00) X 10*3/uL Eosinophils # 0.02 L (0.04-0.35) X 10*3/uL BUN 32.9 H (9.0-27.0) mg/dL BUN/Creatinine Ratio 47.00 H (12.00-20.00) Ratio Glucose 175 H (70-110) mg/dL Microbiology - Last 24 Hours (Table) 06/11/23 08:00 Gram Stain - Final Sputum Sputum Culture - Final
[2023-06-15 00:57] LABS: Glucose,Whole Blood 246 mg/dL (70-110)
--- NOTE | 2023-06-15 12:40 | P.PN ---
Subjective Progress Note Date: 06/15/23 This is a very pleasant 82-year-old female patient with a known history of chronic bronchial asthma, mitral valve prolapse, hypertension, hyperlipidemia, CAD with previous stent, and a lifelong non-smoker. She was just recently discharged from here on the 2023 after being treated for COVID-19 pneumo nitesh. She did received remdesivir, bronchodilators and steroids. She is presented back to the emergency room this morning June 09, 2023 with complaints of increasing shortness of breath cough and congestion that started last evening. She did utilize her 's home oxygen without much improvement. She herself is not on home oxygen. X-ray shows patchy bilateral lung infiltrates compatible with atypical pneumonia possibly ongoing COVID-pneumonia. Suspect some underlying interstitial lung disease as well. White count 16.9. Hemoglobin 10.2. Platelets 265. Sodium 137. Potassium 4.1. Bicarb 29. BUN 21. Creatinine 0.51. proBNP 2430. AST 69. ALT 41. Procalcitonin 0.12. She is seen today in the emergency room in consultation. She is sitting up in the stretcher. Awake and alert in no acute distress. Maintaining O2 saturations in the upper 90s on 2 L/min per nasal cannula. She is afebrile. Hemodynamically stable. The patient is seen today June 10, 2023 in follow-up on the regular medical floor. She is currently sitting up in bed. Awake and alert in no acute distres s. She still has a loose congested cough. Still dyspneic with conversation. Dyspneic with minimal exertion. She is maintaining O2 saturation in the 90s on 3 L/min per nasal cannula. No IV fluids. Her procalcitonin was 0.12. She is continued on vancomycin and cefepime. Her COVID screen today is positive still. Chest x-ray continues to show patchy bilateral infiltrates stable compared to previous. She remains on bronchodilators and steroids. White count 18.9. Hemoglobin 9.5. Platelets 239. Sodium 140. Potassium 4.3. Bicarb 23. BUN 26. Creatinine 0.65. Glucose 138. The patient is seen today June 11, 2023 in follow-up on the regular medical floor. She is currently seen at the bedside. Family is in the room. She had a rough night. She was having increasing shortness of breath cough and congestion. She was increased to 5 L/min per nasal cannula. She was initiated on Tessalon Perles. Her procalcitonin was 0.12. She continues on cefepime and vancomycin. She remains on Symbicort, albuterol, Solu-Medrol. Blood cultures revealed no growth. Nasal swab was negative for MRSA. White count 22.3. Hemoglobin 9.7. Platelets 275. Sodium 143. Potassium 4.6. Bicarb 25. BUN 27. Creatinine 0.7. Glucose 156. Remains on diuretics. Progress note dated June 12, 2023. This is an 82-year-old female that I see in the office for asthma. She presented to the hospital, few days ago, with increasing shortness of breath, and had a chest x-ray that was suggestive of pneumonia. The patient recently had coronavirus infection. Currently, the patient's respiratory status is declining, and she is now on Airvo. Airvo settings include 45 L/min, and 55%, with a saturation of 95%. The patient is not receiving any IV fluids. She is getting both cefepime and vancomycin. In addition, the patient is receiving Solu-Medrol, albuterol inhaler, and Symbicort inhaler. She did test positive for coronavirus, but is unclear as to whether or not this is a residual positive test from her recent episode of coronavirus, or she has coronavirus again. We had a long conversation yesterday about CODE STATUS. She would want to be on the mechanical ventilator, if it came to that. No new labs today. Labs from June 10 have been reviewed. This morning's chest x-ray, may be a bit worse. The patient is seen today June 13, 2023 in follow-up on the regular medical floor. She is currently sitting up in a chair at the bedside. Awake and alert in no acute distress. She is breathing a bit easier today compared to yesterday. Her Airvo has been decreased to 45 L and 50% FiO2 with O2 saturation in the low 90s. Blood cultures revealed no growth. Sputum culture revealed no growth. White count 12.2. Hemoglobin 9.0. Platelets 180. Sodium 143. Potassium 4.6. Bicarb 31. BUN 33. Creatinine 0.7. Glucose 175. She is continued on cefepime. Remains on bronchodilators, steroids, vitamin supplements. Remains on oral diuretics. Progress note dated June 14, 2023. 82-year-old female with a history of asthma, and aortic stenosis. The patient was admitted with a diagnosis of possible pneumonia. The patient had a recent episode of coronavirus infection, and did test positive on this admission again for coronavirus. Today she is sitting in a chair next to her hospital bed. She has been weaned off Airvo, down to high flow nasal cannula at 7 L. She is receiving cefepime. She does feel better. Current labs include a white count of 13.2, hemoglobin 8.7, hematocrit 29.2, and a platelet count of 171,000. The patient is seen today June 15, 2023 in follow-up on the regular medical floor. She is currently sitting up in a chair at the bedside. Awake and alert in no acute distress. Breathing a bit easier today compared to yesterday. She is currently on 7 L high flow nasal cannula maintaining O2 saturation in the low 90s. She is continued on cefepime. Blood cultures revealed no growth. Sputum culture reveals no growth. Glucose 246. She remains on bronchodilators and steroids. Remains on oral diuretics. Lovenox for DVT prophylaxis. Continued on multivitamins. Objective - Vital Signs Vital signs: Vital Signs Temp 97.6 F 06/15/23 07:20 Pulse 68 06/15/23 07:20 Resp 16 06/15/23 07:20 BP 144/70 06/15/23 07:20 Pulse Ox 97 06/15/23 07:48 FiO2 40 06/13/23 16:02 Intake & Output 06/14/23 06/15/23 06/15/23 18:59 06:59 18:59 Intake Total 100 900 Balance 100 900 Weight 49.442 kg Intake: Oral 100 900 Other: Voiding Method Bedside Commode Bedside Commode # Voids 2 3 # Bowel Movements 1 - Exam GENERAL EXAM: Alert, pleasant 82-year-old female, up in a chair, on 7 L high flow nasal cannula, in mild respiratory distress. HEAD: Normocephalic. EYES: Normal reaction of pupils, equal size. NOSE: Clear with pink turbinates. THROAT: No erythema or exudates. NECK: No masses, no JVD. CHEST: No chest wall deformity. LUNGS: Equal air entry with coarse crackles in the bilateral bases. CVS: S1 and S2 normal with no audible murmur, regular rhythm. ABDOMEN: No hepatosplenomegaly, normal bowel sounds, no guarding or rigidity. SPINE: No scoliosis or deformity SKIN: No rashes CENTRAL NERVOUS SYSTEM: No focal deficits, tone is normal in all 4 extremities. EXTREMITIES: There is no peripheral edema. No clubbing, no cyanosis. Peripheral pulses are intact. - Labs CBC & Chem 7: 06/14/23 07:39 06/13/23 07:45 Labs: Abnormal Lab Results - Last 24 Hours (Table) 06/15/23 Range/Units 00:56 POC Glucose (mg/dL) 246 H (70-110) mg/dL Microbiology - Last 24 Hours (Table) 06/09/23 07:55 Blood Culture - Final Blood 06/09/23 07:40 Blood Culture - Final Blood Assessment and Plan Assessment: Acute hypoxic respiratory failure secondary to possible hospital-acquired pneumonia versus ongoing/worsening COVID-19 pneumonia and chronic bronchial asthma. Procalcitonin 0.12, remains on cefepime. Currently on 7 L high flow nasal cannula continued on bronchodilators and steroids, vitamin supplements Acute exacerbation of mild intermittent chronic bronchial asthma Recent discharge on May 31, 2023 for COVID-19 pneumonia, treated with remdesivir. Still testing positive Possible underlying interstitial lung disease History of coronary artery disease with previous PCI/stent x3 History of hyperlipidemia History of hypertension Moderate to severe mitral calcification and moderate to severe mitral stenosis and mild aortic regurgitation and stenosis. LV function is preserved and the patient has an ejection fraction of 60 to 65%. Rheumatoid arthritis History of hypothyroidism Lifelong non-smoker Plan: The patient was seen and evaluated Labs and medications reviewed Continue the current treatment plan Remains on 7 L high flow nasal cannula Titrate the FiO2 as tolerated We will continue to follow I have personally seen and examined the patient, performed the documentation and the assessment and plan as written. Number of minutes spent on the visit: 10.
--- NOTE | 2023-06-15 12:58 | P.PN ---
Subjective Progress Note Date: 06/15/23 82-year-old female, history of hypertension, hyperlipidemia, mitral valve prolapse, hypothyroidism, rheumatoid arthritis, CHF present to the emergency department with difficulty breathing. Onset was yesterday. Patient has had a cough for over a week. Patient has occasional yellow sputum. Patient did have COVID-19 pneumonia couple weeks ago and was in the hospital and discharged home. Patient is unaware of any fevers at home. Patient has chronic interstitial lung disease. She was just recently discharged from here on the 2023 after being treated for COVID-19 pneumonia. She did received remdesivir, bronchodilators and steroids. She is presented back to the emergency room this morning June 09, 2023 with complaints of increasing shortness of breath cough and congestion that started last evening. She did utilize her 's home oxygen without much improvement. She herself is not on home oxygen. X-ray shows patchy bilateral lung infiltrates compatible with atypical pneumonia possibly ongoing COVID-pneumonia. Suspect some underlying interstitial lung disease as well. White count 16.9. Hemoglobin 10.2. Platelets 265. Sodium 137. Potassium 4.1. Bicarb 29. BUN 21. Creatinine 0.51. proBNP 2430. AST 69. ALT 41. Procalcitonin 0.12. 06/10/2023 Patient awake and alert She has more shortness of breath today improved with higher oxygen from 2 up to 3 L/min Repeat chest x-ray showing patchy bilateral infiltrates, stable exam. No fever today but hemodynamically stable BMP is unremarkable Patient remains on IV cefepime, IV vancomycin and IV Solu-Medrol 60 mg and n ormal saline 75 mL/h 06/11/2023 Patient breathing is worse today, she is requiring nonrebreather 60 L/min with FiO2 of 90% and also she is tachypneic and anxious, As per staff patient and family declining intubation and if she deteriorates she might need to be placed on BiPAP WBC is 22.3, hemoglobin stable 9.7 She is currently covered with IV cefepime and IV vancomycin and IV Solu-Medrol. IV fluids was discontinued 06/12/2023 patient awake and alert, in mild distress because of her tachypnea but is improving Oxygen requirement down to 45 L/m No other new complaints. She remains on IV Solu-Medrol 60 mg in the broad-spectrum antibiotics cefepime and IV vancomycin 06/13/2023 Patient sitting up in chair, her breathing rate is similar to yesterday She is still on high flow nasal cannula at 45 L/min She remains on IV cefepime and Vanco vancomycin, she is on IV Solu-Medrol. No IV fluid Daughter at bedside and all questions answered and they are agreeable with the plan 06/13. Patient seen and examined. Patient oxygen is improved, currently on 3 L of oxygen via nasal cannula. Still is weak. Gets short of breath on exertion. 06/14. Patient seen and examined. Vital signs this morning show temperature 97.6, heart rate 68, respirations 16, blood pressure 140/70, currently on 7 L of oxygen. States she does not feel as good as yesterday. Gets short of breath on minimal exertion. REVIEW OF SYSTEMS: CONSTITUTIONAL: No fever, no malaise,. CARDIOVASCULAR: No chest pain, no palpitations, no syncope. PULMONARY: As mentioned above GASTROINTESTINAL: No diarrhea, no nausea, no vomiting, no abdominal pain. NEUROLOGICAL: No headaches, no weakness, PHYSICAL EXAMINATION: GENERAL: The patient is alert and oriented x3, not in any acute distress. Well developed, well nourished. HEENT: Pupils are round and equally reacting to light. EOMI. No scleral icterus. No conjunctival pallor. Normocephalic, atraumatic. No pharyngeal erythema. No thyromegaly. CARDIOVASCULAR: S1 and S2 present. No murmurs, rubs, or gallops. PULMONARY: Tachypneic, coarse breath sounds bilaterally, bilateral expiratory rhonchi audible . ABDOMEN: Soft, nontender, nondistended, normoactive bowel sounds. No palpable organomegaly. MUSCULOSKELETAL: No joint swelling or deformity. EXTREMITIES: No cyanosis, clubbing, or pedal edema. NEUROLOGICAL: Gross neurological examination did not reveal any focal deficits. SKIN: No rashes. Assessment and plan Acute hypoxic respiratory failure hospital-acquired pneumonia COVID-19 pneumonia Acute exacerbation of asthma Mild LETICIA Hypertension Hyperlipidemia; Lipitor 40 mg daily Hypothyroidism; levothyroxine 112 mcg Saturday through Saturday and 56 mcg Saturday and Saturday Coronary artery disease/CHF; status post PCI/stent x 3; patient remains on aspirin, Lipitor, Imdur Mitral stenosis; patient has moderate to severe mitral calcifications causing moderate to severe mitral stenosis and mild aortic regurgitation and stenosis -- Last echocardiogram reveals an EF of 60 to 65% Monitor vital signs Monitor CBC Monitor CMP Continue telemetry monitoring Encourage use of incentive spirometer Continue oxygen supplementation Continue breathing treatments Continue IV cefepime Continue IV Solu-Medrol Continue aspirin, Lipitor Continue Farxiga, Lasix, Imdur Continue Synthroid Pulmonology following Labs and medication were reviewed.. Continue same treatment. Continue with symptomatic treatment. Resume home medication. Monitor labs and vitals. DVT and GI prophylaxis. Further recommendations as per clinical course of the patient Dictation was produced using [employer] dictation software. please excuse any grammatical, word or spelling errors. Objective - Vital Signs Vital signs: Vital Signs Temp 97.6 F 06/15/23 07:20 Pulse 68 06/15/23 07:20 Resp 16 06/15/23 07:20 BP 144/70 06/15/23 07:20 Pulse Ox 97 06/15/23 07:48 FiO2 40 06/13/23 16:02 Intake & Output 06/14/23 06/15/23 06/15/23 18:59 06:59 18:59 Intake Total 100 900 Balance 100 900 Weight 49.442 kg Intake: Oral 100 900 Other: Voiding Method Bedside Commode Bedside Commode # Voids 2 3 # Bowel Movements 1 - Labs CBC & Chem 7: 06/14/23 07:39 06/13/23 07:45 Labs: Abnormal Lab Results - Last 24 Hours (Table) 06/14/23 06/15/23 Range/Units 07:39 00:56 WBC 13.16 H (4.50-10.00) X 10*3/uL RBC 2.84 L (4.10-5.20) X 10*6/uL Hgb 8.7 L (12.0-15.0) g/dL Hct 29.2 L (37.2-46.3) % MCV 102.8 H (80.0-97.0) FL MCHC 29.8 L (32.0-37.0) g/dL RDW 14.8 H (11.5-14.5) % Neutrophils # 12.47 H (1.80-7.70) X 10*3/uL Lymphocytes # 0.37 L (0.90-5.00) X 10*3/uL Eosinophils # 0 L (0.04-0.35) X 10*3/uL POC Glucose (mg/dL) 246 H (70-110) mg/dL Microbiology - Last 24 Hours (Table) 06/09/23 07:55 Blood Culture - Final Blood 06/09/23 07:40 Blood Culture - Final Blood
[2023-06-15] MEDS ORDERED: DEXTROSE 50% SYRINGE 50 ML IVP PRN ×2 (16:06)
[2023-06-15 16:37] LABS: Glucose,Whole Blood 227 mg/dL (70-110)
[2023-06-15] MEDS: INSULIN ASPART (NovoLOG) 100 UNIT/ML VIAL SQ SCH (17:12)
[2023-06-15 21:02] LABS: Glucose,Whole Blood 226 mg/dL (70-110)
[2023-06-16 06:36] LABS: Glucose,Whole Blood 199 mg/dL (70-110)
--- NOTE | 2023-06-16 07:55 | XR ---
EXAMINATION TYPE: XR chest 1V portable DATE OF EXAM: 06/16/2023 HISTORY: Shortness of breath. COMPARISON: 06/12/2023 TECHNIQUE: Single view of the chest is submitted. FINDINGS: Demonstrated are scattered senescent parenchymal change. Diffuse airspace infiltrates persist without significant change. The heart is stable. Hilar and mediastinal structures are within normal limits. Degenerative changes are seen of the dorsal spine. IMPRESSION: 1. Diffuse airspace infiltrates persist without significant change.
[2023-06-16 09:52] LABS: Basophils # (A) 0.01 X 10*3/uL (0.00-0.10); Basophils % (A) 0.1 %; Eosinophils # (A) 0 X 10*3/uL (0.04-0.35); Eosinophils % (A) 0 %; HCT 28.9 % (37.2-46.3); HGB 8.7 g/dL (12.0-15.0); Lymphocytes # (A) 0.24 X 10*3/uL (0.90-5.00); Lymphocytes % (A) 1.5 %; MCH 30.9 pg (27.0-32.0); MCHC 30.1 g/dL (32.0-37.0); MCV 102.5 FL (80.0-97.0); Mean Platelet Volume 10.7 FL (9.5-12.2); Monocytes # (A) 0.27 X 10*3/uL (0.20-1.00); Monocytes % (A) 1.6 %; NRBC Per 100 WBC 0 X 10*3/uL (0.00-0.01); Neutrophils # (A) 15.91 X 10*3/uL (1.80-7.70); Neutrophils % (A) 96.4 %; Platelet Count 149 X 10*3/uL (140-440); RBC 2.82 X 10*6/uL (4.10-5.20); RDW 14.7 % (11.5-14.5); WBC 16.49 X 10*3/uL (4.50-10.00)
[2023-06-16 09:54] LABS: ALT 58 U/L (8-44); AST 57 U/L (13-35); Albumin 3.1 g/dL (3.8-4.9); Albumin/Globulin Ratio 1.03 Ratio (1.60-3.17); Alkaline Phosphatase 186 U/L (41-126); Blood Urea Nitrogen 35.4 mg/dL (9.0-27.0); Carbon Dioxide 35.8 mmol/L (21.6-31.8); Chloride 102 mmol/L (96-109); Glucose 178 mg/dL (70-110); Potassium 4.4 mmol/L (3.5-5.5); Sodium 145 mmol/L (135-145); Total Bilirubin 0.7 mg/dL (0.3-1.2); Total Protein 6.1 g/dL (6.2-8.2)
--- NOTE | 2023-06-16 10:41 | US ---
EXAMINATION TYPE: US venous doppler duplex LE DATE OF EXAM: 06/16/2023 10:32 AM COMPARISON: NONE CLINICAL INDICATION: Female, 82 years old with history of Hypoxemia; SOB SIDE PERFORMED: Bilateral TECHNIQUE: The lower extremity deep venous system is examined utilizing real time linear array sonog prieto with graded compression, doppler sonography and color-flow sonography. VESSELS IMAGED: Common Femoral Vein Deep Femoral Vein Greater Saphenous Vein * Femoral Vein Popliteal Vein Small Saphenous Vein * Proximal Calf Veins (* superficial vessels) Pt scanned in recliner Right Leg: Appeared Negative for DVT Left Leg: Appeared Negative for DVT IMPRESSION: Grayscale, color doppler, spectral doppler imaging performed of the deep veins of the lo wer extremities. There is normal flow, compressibility, vascular waveforms.
[2023-06-16] MEDS: FUROSEMIDE 10 MG/ML 4 ML VIAL IV STA (10:57)
--- NOTE | 2023-06-16 11:30 | P.PN ---
Subjective Progress Note Date: 06/16/23 This is a very pleasant 82-year-old female patient with a known history of chronic bronchial asthma, mitral valve prolapse, hypertension, hyperlipidemia, CAD with previous stent, and a lifelong non-smoker. She was just recently discharged from here on the 2023 after being treated for COVID-19 pneumo nitesh. She did received remdesivir, bronchodilators and steroids. She is presented back to the emergency room this morning June 09, 2023 with complaints of increasing shortness of breath cough and congestion that started last evening. She did utilize her 's home oxygen without much improvement. She herself is not on home oxygen. X-ray shows patchy bilateral lung infiltrates compatible with atypical pneumonia possibly ongoing COVID-pneumonia. Suspect some underlying interstitial lung disease as well. White count 16.9. Hemoglobin 10.2. Platelets 265. Sodium 137. Potassium 4.1. Bicarb 29. BUN 21. Creatinine 0.51. proBNP 2430. AST 69. ALT 41. Procalcitonin 0.12. She is seen today in the emergency room in consultation. She is sitting up in the stretcher. Awake and alert in no acute distress. Maintaining O2 saturations in the upper 90s on 2 L/min per nasal cannula. She is afebrile. Hemodynamically stable. The patient is seen today June 10, 2023 in follow-up on the regular medical floor. She is currently sitting up in bed. Awake and alert in no acute distres s. She still has a loose congested cough. Still dyspneic with conversation. Dyspneic with minimal exertion. She is maintaining O2 saturation in the 90s on 3 L/min per nasal cannula. No IV fluids. Her procalcitonin was 0.12. She is continued on vancomycin and cefepime. Her COVID screen today is positive still. Chest x-ray continues to show patchy bilateral infiltrates stable compared to previous. She remains on bronchodilators and steroids. White count 18.9. Hemoglobin 9.5. Platelets 239. Sodium 140. Potassium 4.3. Bicarb 23. BUN 26. Creatinine 0.65. Glucose 138. The patient is seen today June 11, 2023 in follow-up on the regular medical floor. She is currently seen at the bedside. Family is in the room. She had a rough night. She was having increasing shortness of breath cough and congestion. She was increased to 5 L/min per nasal cannula. She was initiated on Tessalon Perles. Her procalcitonin was 0.12. She continues on cefepime and vancomycin. She remains on Symbicort, albuterol, Solu-Medrol. Blood cultures revealed no growth. Nasal swab was negative for MRSA. White count 22.3. Hemoglobin 9.7. Platelets 275. Sodium 143. Potassium 4.6. Bicarb 25. BUN 27. Creatinine 0.7. Glucose 156. Remains on diuretics. Progress note dated June 12, 2023. This is an 82-year-old female that I see in the office for asthma. She presented to the hospital, few days ago, with increasing shortness of breath, and had a chest x-ray that was suggestive of pneumonia. The patient recently had coronavirus infection. Currently, the patient's respiratory status is declining, and she is now on Airvo. Airvo settings include 45 L/min, and 55%, with a saturation of 95%. The patient is not receiving any IV fluids. She is getting both cefepime and vancomycin. In addition, the patient is receiving Solu-Medrol, albuterol inhaler, and Symbicort inhaler. She did test positive for coronavirus, but is unclear as to whether or not this is a residual positive test from her recent episode of coronavirus, or she has coronavirus again. We had a long conversation yesterday about CODE STATUS. She would want to be on the mechanical ventilator, if it came to that. No new labs today. Labs from June 10 have been reviewed. This morning's chest x-ray, may be a bit worse. The patient is seen today June 13, 2023 in follow-up on the regular medical floor. She is currently sitting up in a chair at the bedside. Awake and alert in no acute distress. She is breathing a bit easier today compared to yesterday. Her Airvo has been decreased to 45 L and 50% FiO2 with O2 saturation in the low 90s. Blood cultures revealed no growth. Sputum culture revealed no growth. White count 12.2. Hemoglobin 9.0. Platelets 180. Sodium 143. Potassium 4.6. Bicarb 31. BUN 33. Creatinine 0.7. Glucose 175. She is continued on cefepime. Remains on bronchodilators, steroids, vitamin supplements. Remains on oral diuretics. Progress note dated June 14, 2023. 82-year-old female with a history of asthma, and aortic stenosis. The patient was admitted with a diagnosis of possible pneumonia. The patient had a recent episode of coronavirus infection, and did test positive on this admission again for coronavirus. Today she is sitting in a chair next to her hospital bed. She has been weaned off Airvo, down to high flow nasal cannula at 7 L. She is receiving cefepime. She does feel better. Current labs include a white count of 13.2, hemoglobin 8.7, hematocrit 29.2, and a platelet count of 171,000. The patient is seen today June 15, 2023 in follow-up on the regular medical floor. She is currently sitting up in a chair at the bedside. Awake and alert in no acute distress. Breathing a bit easier today compared to yesterday. She is currently on 7 L high flow nasal cannula maintaining O2 saturation in the low 90s. She is continued on cefepime. Blood cultures revealed no growth. Sputum culture reveals no growth. Glucose 246. She remains on bronchodilators and steroids. Remains on oral diuretics. Lovenox for DVT prophylaxis. Continued on multivitamins. The patient is seen today June 16, 2023 in follow-up on the regular medical floor. She is currently sitting up in a chair at the bedside. Awake and alert. She is back on Airvo high flow oxygen at 40 L and 50% FiO2. She has been very slow to progress. Her chest x-ray shows worsening bilateral infiltrates. She remains on Symbicort, albuterol, Singulair, Solu-Medrol. Remains on antibiotics in the form of cefepime. Continued on vitamin supplements. Remains on oral diuretics. Doppler of the lower extremities are negative for DVT. Blood cultures revealed no growth. Sputum culture revealed no growth. White count 16.4. Hemoglobin 8.7. Platelets 149. Sodium 145. Potassium 4.4. Bicarb 36. BUN 35. Creatinine 0.6. Glucose 178. AST 57. ALT 58. Lovenox for DVT prophylaxis. Objective - Vital Signs Vital signs: Vital Signs Temp 97.8 F 06/16/23 07:37 Pulse 82 06/16/23 07:37 Resp 18 06/16/23 07:37 BP 147/73 06/16/23 07:37 Pulse Ox 92 L 06/16/23 09:10 FiO2 57 06/16/23 09:10 Intake & Output 06/15/23 06/16/23 06/16/23 18:59 06:59 18:59 Other: Voiding Method Bedside Commode # Voids 4 1 - Exam GENERAL EXAM: Alert, weak 82-year-old female, up in a chair, on Airvo high flow oxygen at 40 L and 50% FiO2, in mild respiratory distress. HEAD: Normocephalic. EYES: Normal reaction of pupils, equal size. NOSE: Clear with pink turbinates. THROAT: No erythema or exudates. NECK: No masses, no JVD. CHEST: No chest wall deformity. LUNGS: Equal air entry with coarse crackles in the bilateral bases. CVS: S1 and S2 normal with no audible murmur, regular rhythm. ABDOMEN: No hepatosplenomegaly, normal bowel sounds, no guarding or rigidity. SPINE: No scoliosis or deformity SKIN: No rashes CENTRAL NERVOUS SYSTEM: No focal deficits, tone is normal in all 4 extremities. EXTREMITIES: There is no peripheral edema. No clubbing, no cyanosis. Peripheral pulses are intact. - Labs CBC & Chem 7: 06/16/23 05:38 06/16/23 05:38 Labs: Abnormal Lab Results - Last 24 Hours (Table) 06/15/23 06/15/23 06/16/23 Range/Units 16:36 21:01 05:38 WBC 16.49 H (4.50-10.00) X 10*3/uL RBC 2.82 L (4.10-5.20) X 10*6/uL Hgb 8.7 L (12.0-15.0) g/dL Hct 28.9 L (37.2-46.3) % MCV 102.5 H (80.0-97.0) FL MCHC 30.1 L (32.0-37.0) g/dL RDW 14.7 H (11.5-14.5) % Immature Gran # 0.06 H (0.00-0.04) X 10*3/uL Neutrophils # 15.91 H (1.80-7.70) X 10*3/uL Lymphocytes # 0.24 L (0.90-5.00) X 10*3/uL Eosinophils # 0 L (0.04-0.35) X 10*3/uL Carbon Dioxide (21.6-31.8) mmol/L BUN (9.0-27.0) mg/dL BUN/Creatinine Ratio (12.00-20.00) Ratio Glucose (70-110) mg/dL POC Glucose (mg/dL) 227 H 226 H (70-110) mg/dL AST (13-35) U/L ALT (8-44) U/L Alkaline Phosphatase (41-126) U/L Total Protein (6.2-8.2) g/dL Albumin (3.8-4.9) g/dL Albumin/Globulin Ratio (1.60-3.17) Ratio 06/16/23 06/16/23 Range/Units 05:38 06:35 WBC (4.50-10.00) X 10*3/uL RBC (4.10-5.20) X 10*6/uL Hgb (12.0-15.0) g/dL Hct (37.2-46.3) % MCV (80.0-97.0) FL MCHC (32.0-37.0) g/dL RDW (11.5-14.5) % Immature Gran # (0.00-0.04) X 10*3/uL Neutrophils # (1.80-7.70) X 10*3/uL Lymphocytes # (0.90-5.00) X 10*3/uL Eosinophils # (0.04-0.35) X 10*3/uL Carbon Dioxide 35.8 H (21.6-31.8) mmol/L BUN 35.4 H (9.0-27.0) mg/dL BUN/Creatinine Ratio 59.00 H (12.00-20.00) Ratio Glucose 178 H (70-110) mg/dL POC Glucose (mg/dL) 199 H (70-110) mg/dL AST 57 H (13-35) U/L ALT 58 H (8-44) U/L Alkaline Phosphatase 186 H (41-126) U/L Total Protein 6.1 L (6.2-8.2) g/dL Albumin 3.1 L (3.8-4.9) g/dL Albumin/Globulin Ratio 1.03 L (1.60-3.17) Ratio Assessment and Plan Assessment: Acute hypoxic respiratory failure secondary to possible hospital-acquired pneumonia versus ongoing/worsening COVID-19 pneumonia and chronic bronchial asthma. Procalcitonin 0.12, remains on cefepime. Currently on Airvo high flow nasal cannula at 40 L and 50% FiO2, continued on bronchodilators and steroids, vitamin supplements. Today's chest x-ray is showing worsening diffuse airspace infiltrates bilaterally. Dopplers of the bilateral lower extremities revealed no evidence of DVT Acute exacerbation of mild intermittent chronic bronchial asthma Recent discharge on May 31, 2023 for COVID-19 pneumonia, treated with remdesivir. Still testing positive Possible underlying interstitial lung disease History of coronary artery disease with previous PCI/stent x3 History of hyperlipidemia History of hypertension Moderate to severe mitral calcification and moderate to severe mitral stenosis and mild aortic regurgitation and stenosis. LV function is preserved and the patient has an ejection fraction of 60 to 65%. Rheumatoid arthritis History of hypothyroidism Lifelong non-smoker Plan: The patient was seen and evaluated X-ray, labs and medications reviewed X-ray shows worsening infiltrates Give Lasix 40 mg IVP x 1 Placed back on Airvo high flow oxygen Titrate the FiO2 as tolerated May need BiPAP support Dopplers revealed no DVT Condition is guarded We will continue to follow I have personally seen and examined the patient, performed the documentation and the assessment and plan as written. Number of minutes spent on the visit: 10.
[2023-06-16 11:45] LABS: Glucose,Whole Blood 361 mg/dL (70-110)
--- NOTE | 2023-06-16 12:43 | P.PN ---
Subjective Progress Note Date: 06/16/23 82-year-old female, history of hypertension, hyperlipidemia, mitral valve prolapse, hypothyroidism, rheumatoid arthritis, CHF present to the emergency department with difficulty breathing. Onset was yesterday. Patient has had a cough for over a week. Patient has occasional yellow sputum. Patient did have COVID-19 pneumonia couple weeks ago and was in the hospital and discharged home. Patient is unaware of any fevers at home. Patient has chronic interstitial lung disease. She was just recently discharged from here on the 2023 after being treated for COVID-19 pneumonia. She did received remdesivir, bronchodilators and steroids. She is presented back to the emergency room this morning June 09, 2023 with complaints of increasing shortness of breath cough and congestion that started last evening. She did utilize her 's home oxygen without much improvement. She herself is not on home oxygen. X-ray shows patchy bilateral lung infiltrates compatible with atypical pneumonia possibly ongoing COVID-pneumonia. Suspect some underlying interstitial lung disease as well. White count 16.9. Hemoglobin 10.2. Platelets 265. Sodium 137. Potassium 4.1. Bicarb 29. BUN 21. Creatinine 0.51. proBNP 2430. AST 69. ALT 41. Procalcitonin 0.12. 06/10/2023 Patient awake and alert She has more shortness of breath today improved with higher oxygen from 2 up to 3 L/min Repeat chest x-ray showing patchy bilateral infiltrates, stable exam. No fever today but hemodynamically stable BMP is unremarkable Patient remains on IV cefepime, IV vancomycin and IV Solu-Medrol 60 mg and n ormal saline 75 mL/h 06/11/2023 Patient breathing is worse today, she is requiring nonrebreather 60 L/min with FiO2 of 90% and also she is tachypneic and anxious, As per staff patient and family declining intubation and if she deteriorates she might need to be placed on BiPAP WBC is 22.3, hemoglobin stable 9.7 She is currently covered with IV cefepime and IV vancomycin and IV Solu-Medrol. IV fluids was discontinued 06/12/2023 patient awake and alert, in mild distress because of her tachypnea but is improving Oxygen requirement down to 45 L/m No other new complaints. She remains on IV Solu-Medrol 60 mg in the broad-spectrum antibiotics cefepime and IV vancomycin 06/13/2023 Patient sitting up in chair, her breathing rate is similar to yesterday She is still on high flow nasal cannula at 45 L/min She remains on IV cefepime and Vanco vancomycin, she is on IV Solu-Medrol. No IV fluid Daughter at bedside and all questions answered and they are agreeable with the plan 06/13. Patient seen and examined. Patient oxygen is improved, currently on 3 L of oxygen via nasal cannula. Still is weak. Gets short of breath on exertion. 06/14. Patient seen and examined. Vital signs this morning show temperature 97.6, heart rate 68, respirations 16, blood pressure 140/70, currently on 7 L of oxygen. States she does not feel as good as yesterday. Gets short of breath on minimal exertion. 06/15. Patient seen and examined. Vital signs this morning areTemperature 97.8, heart rate of 82, respiration 18, blood pressure 140/73, Checks x-ray done in the morning showed diffuse airspace infiltrates persist without significant change. Patient respiratory status deteriorated overnight, currently on Airvo at 40 L, patient states she is tired. Gets short of breath on minimal exertion. Patient received 1 dose of Lasix IV from pulmonology, will switch oral Lasix to IV twice a day from [facility]. REVIEW OF SYSTEMS: CONSTITUTIONAL: No fever, no malaise,. CARDIOVASCULAR: No chest pain, no palpitations, no syncope. PULMONARY: As mentioned above GASTROINTESTINAL: No diarrhea, no nausea, no vomiting, no abdominal pain. NEUROLOGICAL: No headaches, no weakness, PHYSICAL EXAMINATION: GENERAL: The patient is alert and oriented x3, not in any acute distress. Well developed, well nourished. HEENT: Pupils are round and equally reacting to light. EOMI. No scleral icterus. No conjunctival pallor. Normocephalic, atraumatic. No pharyngeal erythema. No thyromegaly. CARDIOVASCULAR: S1 and S2 present. No murmurs, rubs, or gallops. PULMONARY: Tachypneic, coarse breath sounds bilaterally, bilateral expiratory rhonchi audible . ABDOMEN: Soft, nontender, nondistended, normoactive bowel sounds. No palpable organomegaly. MUSCULOSKELETAL: No joint swelling or deformity. EXTREMITIES: No cyanosis, clubbing, or pedal edema. NEUROLOGICAL: Gross neurological examination did not reveal any focal deficits. SKIN: No rashes. Assessment and plan Acute hypoxic respiratory failure hospital-acquired pneumonia COVID-19 pneumonia Acute exacerbation of asthma Mild LETICIA Hypertension Hyperlipidemia; Lipitor 40 mg daily Hypothyroidism; levothyroxine 112 mcg Saturday through Saturday and 56 mcg Saturday and Saturday Coronary artery disease/CHF; status post PCI/stent x 3; patient remains on aspirin, Lipitor, Imdur Mitral stenosis; patient has moderate to severe mitral calcifications causing moderate to severe mitral stenosis and mild aortic regurgitation and stenosis -- Last echocardiogram reveals an EF of 60 to 65% Monitor vital signs Monitor CBC Monitor CMP Continue telemetry monitoring Encourage use of incentive spirometer Continue oxygen supplementation Continue breathing treatments Continue IV cefepime Continue IV Solu-Medrol Continue aspirin, Lipitor Continue Farxiga, Lasix, Imdur Start IV Lasix 40 mg twice a day Continue Synthroid Pulmonology following Labs and medication were reviewed.. Continue same treatment. Continue with symptomatic treatment. Resume home medication. Monitor labs and vitals. DVT and GI prophylaxis. Further recommendations as per clinical course of the patient Dictation was produced using [employer] dictation software. please excuse any grammatical, word or spelling errors. Objective - Vital Signs Vital signs: Vital Signs Temp 97.8 F 06/16/23 07:37 Pulse 82 06/16/23 07:37 Resp 18 06/16/23 07:37 BP 147/73 06/16/23 07:37 Pulse Ox 92 L 06/16/23 09:10 FiO2 57 06/16/23 09:10 Intake & Output 06/15/23 06/16/23 06/16/23 18:59 06:59 18:59 Other: Voiding Method Bedside Commode # Voids 4 1 - Labs CBC & Chem 7: 06/16/23 05:38 06/16/23 05:38 Labs: Abnormal Lab Results - Last 24 Hours (Table) 06/15/23 06/15/23 06/16/23 Range/Units 16:36 21:01 06:35 POC Glucose (mg/dL) 227 H 226 H 199 H (70-110) mg/dL
[2023-06-16 16:21] LABS: Glucose,Whole Blood 222 mg/dL (70-110)
[2023-06-16 16:35] LABS: Appearance,Urine Clear (Clear); Bacteria,Urine Rare /hpf; Bilirubin,Urine Negative (Negative); Blood,Urine Small (Negative); Budding Yeast,Urine Many /hpf; Color,Urine Colorless; Glucose,Urine (UA) 4+ (Negative); Hyaline Casts,Urine 6 /lpf (0-2); Ketones,Urine Negative (Negative); Leukocyte Esterase,Urine Negative (Negative); Mucus,Urine Rare /hpf; Nitrite,Urine Negative (Negative); Protein,Urine Negative (Negative); RBC,Urine 13 /hpf (0-5); Specific Gravity,Urine 1.009 (1.001-1.035); Urobilinogen,Urine <2.0 mg/dL (<2.0); WBC,Urine 3 /hpf (0-5)
[2023-06-16 19:56] LABS: Glucose,Whole Blood 274 mg/dL (70-110)
[2023-06-16] MEDS: FUROSEMIDE 10 MG/ML 4 ML VIAL IV SCH (20:42)
[2023-06-17 06:31] LABS: Glucose,Whole Blood 255 mg/dL (70-110)
[2023-06-17 07:04] LABS: HCT 29.3 % (34.0-46.0); HGB 9.6 gm/dL (11.4-16.0); Hypochromasia Slight; MCH 31.5 pg (25.0-35.0); MCHC 32.7 g/dL (31.0-37.0); Mean Platelet Volume 8.5; Platelet Count 140 k/uL (150-450); RBC 3.04 m/uL (3.80-5.40); RDW 15.6 % (11.5-15.5); WBC 17.2 k/uL (3.8-10.6)
[2023-06-17 07:08] LABS: ALT 75 U/L (4-34); AST 74 U/L (14-36); African American GFR (CKD) >90 (>60 ml/min/1.73 sqM); Albumin 2.8 g/dL (3.5-5.0); Albumin/Globulin Ratio 0.9; Alkaline Phosphatase 185 U/L (38-126); Anion Gap 6 mmol/L; Blood Urea Nitrogen 43 mg/dL (7-17); Calcium 8.5 mg/dL (8.4-10.2); Carbon Dioxide 39 mmol/L (22-30); Chloride 97 mmol/L (98-107); Globulin 3.1 g/dL; Glucose 209 mg/dL (74-99); Non-African American GFR(CKD) 82 (>60 ml/min/1.73 sqM); Potassium 3.5 mmol/L (3.5-5.1); Sodium 142 mmol/L (137-145); Total Bilirubin 1.2 mg/dL (0.2-1.3); Total Protein 5.9 g/dL (6.3-8.2)
[2023-06-17 07:13] LABS: MCV 96.3 fL (80.0-100.0)
--- NOTE | 2023-06-17 08:34 | XR ---
EXAMINATION TYPE: XR chest 1V portable DATE OF EXAM: 06/17/2023 HISTORY: Shortness of breath. COMPARISON: 06/16/2023 TECHNIQUE: Single view of the chest is submitted. FINDINGS: Demonstrated are scattered senescent parenchymal change. Diffuse airspace infiltrates persist throughout both lung stoll with minimal improvement suggested. Correlate clinically and progress studies are advised. The heart is stable. Hilar and mediastinal structures are within normal limits. Degenerative changes are seen of the dorsal spine. IMPRESSION: 1. Diffuse airspace infiltrates persist throughout both lung stoll with minimal improvement suggest ed. Correlate clinically and progress studies are advised.
[2023-06-17 11:50] LABS: Glucose,Whole Blood 305 mg/dL (70-110)
--- NOTE | 2023-06-17 12:10 | P.PN ---
Subjective Progress Note Date: 06/17/23 82-year-old female, history of hypertension, hyperlipidemia, mitral valve prolapse, hypothyroidism, rheumatoid arthritis, CHF present to the emergency department with difficulty breathing. Onset was yesterday. Patient has had a cough for over a week. Patient has occasional yellow sputum. Patient did have COVID-19 pneumonia couple weeks ago and was in the hospital and discharged home. Patient is unaware of any fevers at home. Patient has chronic interstitial lung disease. She was just recently discharged from here on the 2023 after being treated for COVID-19 pneumonia. She did received remdesivir, bronchodilators and steroids. She is presented back to the emergency room this morning June 09, 2023 with complaints of increasing shortness of breath cough and congestion that started last evening. She did utilize her 's home oxygen without much improvement. She herself is not on home oxygen. X-ray shows patchy bilateral lung infiltrates compatible with atypical pneumonia possibly ongoing COVID-pneumonia. Suspect some underlying interstitial lung disease as well. White count 16.9. Hemoglobin 10.2. Platelets 265. Sodium 137. Potassium 4.1. Bicarb 29. BUN 21. Creatinine 0.51. proBNP 2430. AST 69. ALT 41. Procalcitonin 0.12. 06/10/2023 Patient awake and alert She has more shortness of breath today improved with higher oxygen from 2 up to 3 L/min Repeat chest x-ray showing patchy bilateral infiltrates, stable exam. No fever today but hemodynamically stable BMP is unremarkable Patient remains on IV cefepime, IV vancomycin and IV Solu-Medrol 60 mg and n ormal saline 75 mL/h 06/11/2023 Patient breathing is worse today, she is requiring nonrebreather 60 L/min with FiO2 of 90% and also she is tachypneic and anxious, As per staff patient and family declining intubation and if she deteriorates she might need to be placed on BiPAP WBC is 22.3, hemoglobin stable 9.7 She is currently covered with IV cefepime and IV vancomycin and IV Solu-Medrol. IV fluids was discontinued 06/12/2023 patient awake and alert, in mild distress because of her tachypnea but is improving Oxygen requirement down to 45 L/m No other new complaints. She remains on IV Solu-Medrol 60 mg in the broad-spectrum antibiotics cefepime and IV vancomycin 06/13/2023 Patient sitting up in chair, her breathing rate is similar to yesterday She is still on high flow nasal cannula at 45 L/min She remains on IV cefepime and Vanco vancomycin, she is on IV Solu-Medrol. No IV fluid Daughter at bedside and all questions answered and they are agreeable with the plan 06/13. Patient seen and examined. Patient oxygen is improved, currently on 3 L of oxygen via nasal cannula. Still is weak. Gets short of breath on exertion. 06/14. Patient seen and examined. Vital signs this morning show temperature 97.6, heart rate 68, respirations 16, blood pressure 140/70, currently on 7 L of oxygen. States she does not feel as good as yesterday. Gets short of breath on minimal exertion. 06/15. Patient seen and examined. Vital signs this morning areTemperature 97.8, heart rate of 82, respiration 18, blood pressure 140/73, Checks x-ray done in the morning showed diffuse airspace infiltrates persist without significant change. Patient respiratory status deteriorated overnight, currently on Airvo at 40 L, patient states she is tired. Gets short of breath on minimal exertion. Patient received 1 dose of Lasix IV from pulmonology, will switch oral Lasix to IV twice a day from [facility]. 06/16. Patient seen and examined. Sitting upright in the chair. Continues to be on Airvo. States breathing is improving. States appetite is improved compared to yesterday REVIEW OF SYSTEMS: CONSTITUTIONAL: No fever, no malaise,. CARDIOVASCULAR: No chest pain, no palpitations, no syncope. PULMONARY: As mentioned above GASTROINTESTINAL: No diarrhea, no nausea, no vomiting, no abdominal pain. NEUROLOGICAL: No headaches, no weakness, PHYSICAL EXAMINATION: GENERAL: The patient is alert and oriented x3 ill looking tomorrow HEENT: Pupils are round and equally reacting to light. EOMI. No scleral icterus. No conjunctival pallor. Normocephalic, atraumatic. No pharyngeal erythema. No thyromegaly. CARDIOVASCULAR: S1 and S2 present. No murmurs, rubs, or gallops. PULMONARY: Tachypneic, coarse breath sounds bilaterally, bilateral expiratory rhonchi audible . ABDOMEN: Soft, nontender, nondistended, normoactive bowel sounds. No palpable organomegaly. MUSCULOSKELETAL: No joint swelling or deformity. EXTREMITIES: No cyanosis, clubbing, or pedal edema. NEUROLOGICAL: Gross neurological examination did not reveal any focal deficits. SKIN: No rashes. Assessment and plan Acute hypoxic respiratory failure hospital-acquired pneumonia COVID-19 pneumonia Acute exacerbation of asthma Mild LETICIA Hypertension Hyperlipidemia; Lipitor 40 mg daily Hypothyroidism; levothyroxine 112 mcg Saturday through Saturday and 56 mcg Saturday and Saturday Coronary artery disease/CHF; status post PCI/stent x 3; patient remains on aspirin, Lipitor, Imdur Mitral stenosis; patient has moderate to severe mitral calcifications causing moderate to severe mitral stenosis and mild aortic regurgitation and stenosis -- Last echocardiogram reveals an EF of 60 to 65% Monitor vital signs Monitor CBC Monitor CMP Continue telemetry monitoring Encourage use of incentive spirometer Continue oxygen supplementation Continue breathing treatments Continue IV cefepime Continue IV Solu-Medrol Continue aspirin, Lipitor Continue Farxiga, Lasix, Imdur Continue IV Lasix 40 mg twice a day Continue Synthroid Pulmonology following Prognosis guarded Labs and medication were reviewed.. Continue same treatment. Continue with symptomatic treatment. Resume home medication. Monitor labs and vitals. DVT and GI prophylaxis. Further recommendations as per clinical course of the patient Dictation was produced using [employer] dictation software. please excuse any grammatical, word or spelling errors. Objective - Vital Signs Vital signs: Vital Signs Temp 97.8 F 06/17/23 07:17 Pulse 72 06/17/23 07:17 Resp 20 06/17/23 07:17 BP 142/62 06/17/23 07:17 Pulse Ox 92 L 06/17/23 10:04 FiO2 60 06/17/23 10:04 Intake & Output 06/16/23 06/17/23 06/17/23 18:59 06:59 18:59 Intake Total 1010 Output Total 1000 600 600 Balance -1000 410 -600 Intake: Intake, IV Titration 50 Amount Cefepime 1 gm In Sodium 50 Chloride 0.9% 50 ml @ 12. 5 mls/hr IVPB Q12HR [facility] Rx#:[id number] Oral 960 Output: Urine 1000 600 600 Other: Voiding Method Bedside Commode Bedside Commode # Voids 1 - Labs CBC & Chem 7: 06/17/23 06:15 06/17/23 06:15 Labs: Abnormal Lab Results - Last 24 Hours (Table) 06/16/23 06/16/23 06/16/23 Range/Units 16:20 16:20 19:55 WBC (3.8-10.6) k/uL RBC (3.80-5.40) m/uL Hgb (11.4-16.0) gm/dL Hct (34.0-46.0) % RDW (11.5-15.5) % Plt Count (150-450) k/uL Chloride (98-107) mmol/L Carbon Dioxide (22-30) mmol/L BUN (7-17) mg/dL Glucose (74-99) mg/dL POC Glucose (mg/dL) 222 H 274 H (70-110) mg/dL AST (14-36) U/L ALT (4-34) U/L Alkaline Phosphatase (38-126) U/L Total Protein (6.3-8.2) g/dL Albumin (3.5-5.0) g/dL Urine Glucose (UA) 4+ H (Negative) Urine Blood Small H (Negative) Urine RBC 13 H (0-5) /hpf Urine Bacteria Rare H (None) /hpf Hyaline Casts 6 H (0-2) /lpf Urine Mucus Rare H (None) /hpf Urine Yeast (Budding) Many H (None) /hpf 06/17/23 06/17/23 06/17/23 Range/Units 06:15 06:15 06:30 WBC 17.2 H (3.8-10.6) k/uL RBC 3.04 L (3.80-5.40) m/uL Hgb 9.6 L (11.4-16.0) gm/dL Hct 29.3 L (34.0-46.0) % RDW 15.6 H (11.5-15.5) % Plt Count 140 L (150-450) k/uL Chloride 97 L (98-107) mmol/L Carbon Dioxide 39 H (22-30) mmol/L BUN 43 H (7-17) mg/dL Glucose 209 H (74-99) mg/dL POC Glucose (mg/dL) 255 H (70-110) mg/dL AST 74 H (14-36) U/L ALT 75 H (4-34) U/L Alkaline Phosphatase 185 H (38-126) U/L Total Protein 5.9 L (6.3-8.2) g/dL Albumin 2.8 L (3.5-5.0) g/dL Urine Glucose (UA) (Negative) Urine Blood (Negative) Urine RBC (0-5) /hpf Urine Bacteria (None) /hpf Hyaline Casts (0-2) /lpf Urine Mucus (None) /hpf Urine Yeast (Budding) (None) /hpf 06/17/23 Range/Units 11:49 WBC (3.8-10.6) k/uL RBC (3.80-5.40) m/uL Hgb (11.4-16.0) gm/dL Hct (34.0-46.0) % RDW (11.5-15.5) % Plt Count (150-450) k/uL Chloride (98-107) mmol/L Carbon Dioxide (22-30) mmol/L BUN (7-17) mg/dL Glucose (74-99) mg/dL POC Glucose (mg/dL) 305 H (70-110) mg/dL AST (14-36) U/L ALT (4-34) U/L Alkaline Phosphatase (38-126) U/L Total Protein (6.3-8.2) g/dL Albumin (3.5-5.0) g/dL Urine Glucose (UA) (Negative) Urine Blood (Negative) Urine RBC (0-5) /hpf Urine Bacteria (None) /hpf Hyaline Casts (0-2) /lpf Urine Mucus (None) /hpf Urine Yeast (Budding) (None) /hpf
[2023-06-17] MEDS: FUROSEMIDE 100 MG in SODIUM CHLORIDE 0.9% 90 ML IV SCH (14:59)
[2023-06-17 16:53] LABS: Glucose,Whole Blood 319 mg/dL (70-110)
--- NOTE | 2023-06-17 18:59 | P.PN ---
Subjective Progress Note Date: 06/17/23 This is a very pleasant 82-year-old female patient with a known history of chronic bronchial asthma, mitral valve prolapse, hypertension, hyperlipidemia, CAD with previous stent, and a lifelong non-smoker. She was just recently discharged from here on the 2023 after being treated for COVID-19 pneum onia. She did received remdesivir, bronchodilators and steroids. She is presented back to the emergency room this morning June 09, 2023 with complaints of increasing shortness of breath cough and congestion that started last evening. She did utilize her 's home oxygen without much improvement. She herself is not on home oxygen. X-ray shows patchy bilateral lung infiltrates compatible with atypical pneumonia possibly ongoing COVID-pneumonia. Suspect some underlying interstitial lung disease as well. White count 16.9. Hemoglobin 10.2. Platelets 265. Sodium 137. Potassium 4.1. Bicarb 29. BUN 21. Creatinine 0.51. proBNP 2430. AST 69. ALT 41. Procalcitonin 0.12. She is seen today in the emergency room in consultation. She is sitting up in the stretcher. Awake and alert in no acute distress. Maintaining O2 saturations in the upper 90s on 2 L/min per nasal cannula. She is afebrile. Hemodynamically stable. The patient is seen today June 10, 2023 in follow-up on the regular medical floor. She is currently sitting up in bed. Awake and alert in no acute distre ss. She still has a loose congested cough. Still dyspneic with conversation. Dyspneic with minimal exertion. She is maintaining O2 saturation in the 90s on 3 L/min per nasal cannula. No IV fluids. Her procalcitonin was 0.12. She is continued on vancomycin and cefepime. Her COVID screen today is positive still. Chest x-ray continues to show patchy bilateral infiltrates stable compared to p revious. She remains on bronchodilators and steroids. White count 18.9. Hemoglobin 9.5. Platelets 239. Sodium 140. Potassium 4.3. Bicarb 23. BUN 26. Creatinine 0.65. Glucose 138. The patient is seen today June 11, 2023 in follow-up on the regular medical floor. She is currently seen at the bedside. Family is in the room. She had a rough night. She was having increasing shortness of breath cough and congestion. She was increased to 5 L/min per nasal cannula. She was initiated on Tessalon Perles. Her procalcitonin was 0.12. She continues on cefepime and vancomycin. She remains on Symbicort, albuterol, Solu-Medrol. Blood cultures revealed no growth. Nasal swab was negative for MRSA. White count 22.3. Hemoglobin 9.7. Platelets 275. Sodium 143. Potassium 4.6. Bicarb 25. BUN 27. Creatinine 0.7. Glucose 156. Remains on diuretics. Progress note dated June 12, 2023. This is an 82-year-old female that I see in the office for asthma. She presented to the hospital, few days ago, with increasing shortness of breath, and had a chest x-ray that was suggestive of pneumonia. The patient recently had coronavirus infection. Currently, the patient's respiratory status is declining, and she is now on Airvo. Airvo settings include 45 L/min, and 55%, with a saturation of 95%. The patient is not receiving any IV fluids. She is getting both cefepime and vancomycin. In addition, the patient is receiving Solu-Medrol, albuterol inhaler, and Symbicort inhaler. She did test positive for coronavirus, but is unclear as to whether or not this is a residual positive test from her recent episode of coronavirus, or she has coronavirus again. We had a long conversation yesterday about CODE STATUS. She would want to be on the mechanical ventilator, if it came to that. No new labs today. Labs from June 10 have been reviewed. This morning's chest x-ray, may be a bit worse. The patient is seen today June 13, 2023 in follow-up on the regular medical floor. She is currently sitting up in a chair at the bedside. Awake and alert in no acute distress. She is breathing a bit easier today compared to yesterday. Her Airvo has been decreased to 45 L and 50% FiO2 with O2 saturation in the low 90s. Blood cultures revealed no growth. Sputum culture revealed no growth. White count 12.2. Hemoglobin 9.0. Platelets 180. Sodium 143. Potassium 4.6. Bicarb 31. BUN 33. Creatinine 0.7. Glucose 175. She is continued on cefepime. Remains on bronchodilators, steroids, vitamin supplements. Remains on oral diuretics. Progress note dated June 14, 2023. 82-year-old female with a history of asthma, and aortic stenosis. The patient was admitted with a diagnosis of possible pneumonia. The patient had a recent episode of coronavirus infection, and did test positive on this admission again for coronavirus. Today she is sitting in a chair next to her hospital bed. She has been weaned off Airvo, down to high flow nasal cannula at 7 L. She is receiving cefepime. She does feel better. Current labs include a white count of 13.2, hemoglobin 8.7, hematocrit 29.2, and a platelet count of 171,000. The patient is seen today June 15, 2023 in follow-up on the regular medical floor. She is currently sitting up in a chair at the bedside. Awake and alert in no acute distress. Breathing a bit easier today compared to yesterday. She is currently on 7 L high flow nasal cannula maintaining O2 saturation in the low 90s. She is continued on cefepime. Blood cultures revealed no growth. Sputum culture reveals no growth. Glucose 246. She remains on bronchodilators and steroids. Remains on oral diuretics. Lovenox for DVT prophylaxis. Continued on multivitamins. The patient is seen today June 16, 2023 in follow-up on the regular medical floo r. She is currently sitting up in a chair at the bedside. Awake and alert. She is back on Airvo high flow oxygen at 40 L and 50% FiO2. She has been very slow to progress. Her chest x-ray shows worsening bilateral infiltrates. She remains on Symbicort, albuterol, Singulair, Solu-Medrol. Remains on antibiotics in the form of cefepime. Continued on vitamin supplements. Remains on oral diuretics. Doppler of the lower extremities are negative for DVT. Blood cultures revealed no growth. Sputum culture revealed no growth. White count 16.4. Hemoglobin 8.7. Platelets 149. Sodium 145. Potassium 4.4. Bicarb 36. BUN 35. Creatinine 0.6. Glucose 178. AST 57. ALT 58. Lovenox for DVT prophylaxis. On today's evaluation of 06/17/2023, I am seeing the patient for a follow-up. The patient remains hypoxic with a chest x-ray showing diffuse bilateral pulmonary filtrates consistent with either cardiogenic versus noncardiogenic pulmonary edema. The patient diffuse airspace pulmonary filtrates throughout the lung stoll bilaterally. Noted the patient was hospitalized approximate 2 to 3 weeks ago for COVID-19 related pneumonia and CHF and the patient was treated and the chest x-ray prior to her discharge showed complete clearing. She is also noted to have mitral stenosis. For now, the patient is on high flow oxygen utilizing Airvo system with a flow of 40 L and FiO2 of 60%. The Doppler of the lower extremity was done and showed no evidence of any DVT and this was done on 06/16/2023. The patient is afebrile. The patient is hemodynamically stable. The patient remains on bronchodilators and the patient is currently on Ventolin HFA 4 times a day, Symbicort as maintenance the patient is empirically covered with IV cefepime and she is also on IV Solu-Medrol 60 mg every 6 hours. Suggested starting the patient on Lasix drip to optimize her volume status. Her most recent echocardiogram that was done on 05/27/2023 showed a preserved LV function. Nevertheless, the patient had moderate thickening and calcification of the anterior and the posterior mitral valve leaflet and the mitral valve was severely stenotic. There was mild aortic stenosis in addition. Right vent ricular systolic pressure was diminished to be around 58. There is severe LA dilatation. Objective - Vital Signs Vital signs: Vital Signs Temp 97.8 F 06/17/23 07:17 Pulse 72 06/17/23 07:17 Resp 20 06/17/23 07:17 BP 142/62 06/17/23 07:17 Pulse Ox 92 L 06/17/23 10:04 FiO2 60 06/17/23 10:04 Intake & Output 06/16/23 06/17/23 06/17/23 18:59 06:59 18:59 Intake Total 1010 Output Total 1000 600 600 Balance -1000 410 -600 Intake: Intake, IV Titration 50 Amount Cefepime 1 gm In Sodium 50 Chloride 0.9% 50 ml @ 12. 5 mls/hr IVPB Q12HR [facility] Rx#:[id number] Oral 960 Output: Urine 1000 600 600 Other: Voiding Method Bedside Commode Bedside Commode # Voids 1 - Exam GENERAL EXAM: Alert, 82-year-old white female appearing stated age, comfortable in no apparent distress. Patient is currently on Airvo. No apparent respiratory distress. HEAD: Normocephalic and atraumatic EYES: Normal reaction of pupils, equal size. NOSE: Clear with pink turbinates. THROAT: No erythema or exudates. NECK: No masses, no JVD. CHEST: No chest wall deformity. LUNGS: Equal air entry with diffuse rhonchi and crackles. no conversational dyspnea or accessory muscle use while at rest CVS: S1 and S2 normal with grade 4 diastolic/systolic murmur, regular rhythm. No other extra heart sounds ABDOMEN: No hepatosplenomegaly, active bowel sounds, no guarding or rigidity. SPINE: No scoliosis or deformity SKIN: No rashes CENTRAL NERVOUS SYSTEM: No focal deficits, tone is normal in all 4 extremities. EXTREMITIES: There is no peripheral edema, clubbing, or cyanosis. Peripheral pulses are intact. - Labs CBC & Chem 7: 06/17/23 06:15 06/17/23 06:15 Labs: Abnormal Lab Results - Last 24 Hours (Table) 06/16/23 06/16/23 06/16/23 Range/Units 16:20 16:20 19:55 WBC (3.8-10.6) k/uL RBC (3.80-5.40) m/uL Hgb (11.4-16.0) gm/dL Hct (34.0-46.0) % RDW (11.5-15.5) % Plt Count (150-450) k/uL Chloride (98-107) mmol/L Carbon Dioxide (22-30) mmol/L BUN (7-17) mg/dL Glucose (74-99) mg/dL POC Glucose (mg/dL) 222 H 274 H (70-110) mg/dL AST (14-36) U/L ALT (4-34) U/L Alkaline Phosphatase (38-126) U/L Total Protein (6.3-8.2) g/dL Albumin (3.5-5.0) g/dL Urine Glucose (UA) 4+ H (Negative) Urine Blood Small H (Negative) Urine RBC 13 H (0-5) /hpf Urine Bacteria Rare H (None) /hpf Hyaline Casts 6 H (0-2) /lpf Urine Mucus Rare H (None) /hpf Urine Yeast (Budding) Many H (None) /hpf 06/17/23 06/17/23 06/17/23 Range/Units 06:15 06:15 06:30 WBC 17.2 H (3.8-10.6) k/uL RBC 3.04 L (3.80-5.40) m/uL Hgb 9.6 L (11.4-16.0) gm/dL Hct 29.3 L (34.0-46.0) % RDW 15.6 H (11.5-15.5) % Plt Count 140 L (150-450) k/uL Chloride 97 L (98-107) mmol/L Carbon Dioxide 39 H (22-30) mmol/L BUN 43 H (7-17) mg/dL Glucose 209 H (74-99) mg/dL POC Glucose (mg/dL) 255 H (70-110) mg/dL AST 74 H (14-36) U/L ALT 75 H (4-34) U/L Alkaline Phosphatase 185 H (38-126) U/L Total Protein 5.9 L (6.3-8.2) g/dL Albumin 2.8 L (3.5-5.0) g/dL Urine Glucose (UA) (Negative) Urine Blood (Negative) Urine RBC (0-5) /hpf Urine Bacteria (None) /hpf Hyaline Casts (0-2) /lpf Urine Mucus (None) /hpf Urine Yeast (Budding) (None) /hpf 06/17/23 Range/Units 11:49 WBC (3.8-10.6) k/uL RBC (3.80-5.40) m/uL Hgb (11.4-16.0) gm/dL Hct (34.0-46.0) % RDW (11.5-15.5) % Plt Count (150-450) k/uL Chloride (98-107) mmol/L Carbon Dioxide (22-30) mmol/L BUN (7-17) mg/dL Glucose (74-99) mg/dL POC Glucose (mg/dL) 305 H (70-110) mg/dL AST (14-36) U/L ALT (4-34) U/L Alkaline Phosphatase (38-126) U/L Total Protein (6.3-8.2) g/dL Albumin (3.5-5.0) g/dL Urine Glucose (UA) (Negative) Urine Blood (Negative) Urine RBC (0-5) /hpf Urine Bacteria (None) /hpf Hyaline Casts (0-2) /lpf Urine Mucus (None) /hpf Urine Yeast (Budding) (None) /hpf Assessment and Plan Plan: Acute hypoxic respiratory failure most likely secondary to pulmonary edema related to her valvular heart disease. The patient has severe mitral stenosis, mild aortic stenosis in addition to severe pulm hypertension. LV function is preserved. Other less likely possibilities include hospital-acquired pneumonia versus ongoing/worsening COVID-19 pneumonia. The patient developed diffuse bilateral pulmonary filtrates with acute hypoxic respiratory failure the patient is currently on air Vo. She is also covered with cefepime and IV Solu-Medrol. Acute exacerbation of mild intermittent chronic bronchial asthma Recent discharge on May 31, 2023 for COVID-19 pneumonia, treated with remdesivir. Still testing positive. Noted the patient has complete clearing of the bilateral pulmonary filtrates on previous hospitalization and the chest x- ray was initially clear prior to her discharge. History of coronary artery disease with previous PCI/stent x3 History of hyperlipidemia History of hypertension Moderate to severe mitral calcification and moderate to severe mitral stenosis and mild aortic regurgitation and stenosis. LV function is preserved and the patient has an ejection fraction of 60 to 65%. Pulmonary hypertension WHO class II Rheumatoid arthritis History of hypothyroidism Lifelong non-smoker Plan: The patient will be given a trial of diuresis. The patient was placed on Lasix drip and repeat chest x-ray will be obtained tomorrow. Will monitor oxygenation Keep the patient on Airvo high flow oxygen Titrate the FiO2 as tolerated May need BiPAP support Dopplers revealed no DVT Condition is guarded We will continue to follow Case was discussed with the family at the bedside.
[2023-06-17 20:31] LABS: Glucose,Whole Blood 362 mg/dL (70-110)
[2023-06-18 05:58] LABS: Glucose,Whole Blood 226 mg/dL (70-110)
[2023-06-18 10:02] LABS: Glucose,Whole Blood 334 mg/dL (70-110)
--- NOTE | 2023-06-18 10:35 | XR ---
EXAMINATION TYPE: XR chest 1V portable DATE OF EXAM: 06/18/2023 10:27 AM CLINICAL INDICATION:Female, 82 years old with history of sob; [facility] COMPARISON: Chest radiographs from chest radiograph aspect of 06/12/2023. TECHNIQUE: XR chest 1V portable Frontal view of the chest. FINDINGS: Lungs/Pleura: There is no evidence of pleural effusion, focal consolidation, or pneumothorax. Pulmonary vascularity: Unremarkable. Heart/mediastinum: Cardiomediastinal silhouette is unremarkable. Musculoskeletal: No acute osseous pathology. Other findings: None IMPRESSION: Diffuse airspace opacities at the lung which are not significantly changed from priors given differen destiny in inspiration.
[2023-06-18] MEDS: AMIODARONE 360 MG in DEXTROSE 5% IN WATER 200 ML IV ONE (10:50)
[2023-06-18] MEDS: DEXTROSE 5% IN WATER 100 ML with AMIODARONE 150 MG IV ONE (10:51)
[2023-06-18] MEDS: HEPARIN SOD,PORK IN 0.45% NACL 25,000 UNIT in 0.45% NACL 1 250ML.BAG IV SCH (10:57)
[2023-06-18] MEDS: HEPARIN SODIUM 1,000 UN/ML (10ML VL) IV ONE (10:59)
[2023-06-18] MEDS ORDERED: ETOMIDATE 2 MG/ML 10 ML VIAL ONE (11:04)
[2023-06-18] MEDS ORDERED: NALOXONE 0.4 MG/ML 1 ML VIAL IV PRN (11:07)
[2023-06-18 11:21] LABS: INR 1.2 (<1.2); Partial Thromboplastin Time 22.5 sec (22.0-30.0); Prothrombin Time 12.7 sec (10.0-12.5)
[2023-06-18 11:24] LABS: African American GFR (CKD) 64 (>60 ml/min/1.73 sqM); Blood Urea Nitrogen 50 mg/dL (7-17); Chloride 87 mmol/L (98-107); Glucose 355 mg/dL (74-99); Non-African American GFR(CKD) 56 (>60 ml/min/1.73 sqM); Sodium 137 mmol/L (137-145)
[2023-06-18 11:26] LABS: Basophils % (A) 0 %; Eosinophils # (A) 0.1 k/uL (0-0.7); Eosinophils % (A) 0 %; HCT 28.5 % (34.0-46.0); HGB 9.1 gm/dL (11.4-16.0); Hypochromasia Moderate; Lymphocytes # (A) 0.3 k/uL (1.0-4.8); Lymphocytes % (A) 1 %; MCH 31.8 pg (25.0-35.0); MCHC 31.8 g/dL (31.0-37.0); Macrocytosis Slight; Mean Platelet Volume 9.4; Monocytes # (A) 0.7 k/uL (0-1.0); Monocytes % (A) 3 %; Neutrophils # (A) 21.1 k/uL (1.3-7.7); Neutrophils % (A) 96 %; Platelet Count 180 k/uL (150-450); RBC 2.85 m/uL (3.80-5.40); RDW 15.6 % (11.5-15.5); WBC 22.1 k/uL (3.8-10.6)
[2023-06-18 11:32] LABS: Anion Gap 12 mmol/L
[2023-06-18 11:37] LABS: Glucose,Whole Blood 363 mg/dL (70-110)
[2023-06-18 11:54] LABS: Carbon Dioxide 38 mmol/L (22-30); Potassium 2.7 mmol/L (3.5-5.1)
[2023-06-18] MEDS ORDERED: Potassium Replacement Protocol 1 EACH MISC MISCELLANE PRN ×2 (11:57→20:13)
[2023-06-18] MEDS: POTASSIUM CHLORIDE 20 MEQ in WATER FOR INJECTION 1 100ML.BAG IVPB SCH ×2 (12:15→22:35)
--- NOTE | 2023-06-18 12:58 | P.PN ---
Subjective Progress Note Date: 06/18/23 This is a very pleasant 82-year-old female patient with a known history of chronic bronchial asthma, mitral valve prolapse, hypertension, hyperlipidemia, CAD with previous stent, and a lifelong non-smoker. She was just recently discharged from here on the 2023 after being treated for COVID-19 pneum onia. She did received remdesivir, bronchodilators and steroids. She is presented back to the emergency room this morning June 09, 2023 with complaints of increasing shortness of breath cough and congestion that started last evening. She did utilize her 's home oxygen without much improvement. She herself is not on home oxygen. X-ray shows patchy bilateral lung infiltrates compatible with atypical pneumonia possibly ongoing COVID-pneumonia. Suspect some underlying interstitial lung disease as well. White count 16.9. Hemoglobin 10.2. Platelets 265. Sodium 137. Potassium 4.1. Bicarb 29. BUN 21. Creatinine 0.51. proBNP 2430. AST 69. ALT 41. Procalcitonin 0.12. She is seen today in the emergency room in consultation. She is sitting up in the stretcher. Awake and alert in no acute distress. Maintaining O2 saturations in the upper 90s on 2 L/min per nasal cannula. She is afebrile. Hemodynamically stable. The patient is seen today June 10, 2023 in follow-up on the regular medical floor. She is currently sitting up in bed. Awake and alert in no acute distre ss. She still has a loose congested cough. Still dyspneic with conversation. Dyspneic with minimal exertion. She is maintaining O2 saturation in the 90s on 3 L/min per nasal cannula. No IV fluids. Her procalcitonin was 0.12. She is continued on vancomycin and cefepime. Her COVID screen today is positive still. Chest x-ray continues to show patchy bilateral infiltrates stable compared to p revious. She remains on bronchodilators and steroids. White count 18.9. Hemoglobin 9.5. Platelets 239. Sodium 140. Potassium 4.3. Bicarb 23. BUN 26. Creatinine 0.65. Glucose 138. The patient is seen today June 11, 2023 in follow-up on the regular medical floor. She is currently seen at the bedside. Family is in the room. She had a rough night. She was having increasing shortness of breath cough and congestion. She was increased to 5 L/min per nasal cannula. She was initiated on Tessalon Perles. Her procalcitonin was 0.12. She continues on cefepime and vancomycin. She remains on Symbicort, albuterol, Solu-Medrol. Blood cultures revealed no growth. Nasal swab was negative for MRSA. White count 22.3. Hemoglobin 9.7. Platelets 275. Sodium 143. Potassium 4.6. Bicarb 25. BUN 27. Creatinine 0.7. Glucose 156. Remains on diuretics. Progress note dated June 12, 2023. This is an 82-year-old female that I see in the office for asthma. She presented to the hospital, few days ago, with increasing shortness of breath, and had a chest x-ray that was suggestive of pneumonia. The patient recently had coronavirus infection. Currently, the patient's respiratory status is declining, and she is now on Airvo. Airvo settings include 45 L/min, and 55%, with a saturation of 95%. The patient is not receiving any IV fluids. She is getting both cefepime and vancomycin. In addition, the patient is receiving Solu-Medrol, albuterol inhaler, and Symbicort inhaler. She did test positive for coronavirus, but is unclear as to whether or not this is a residual positive test from her recent episode of coronavirus, or she has coronavirus again. We had a long conversation yesterday about CODE STATUS. She would want to be on the mechanical ventilator, if it came to that. No new labs today. Labs from June 10 have been reviewed. This morning's chest x-ray, may be a bit worse. The patient is seen today June 13, 2023 in follow-up on the regular medical floor. She is currently sitting up in a chair at the bedside. Awake and alert in no acute distress. She is breathing a bit easier today compared to yesterday. Her Airvo has been decreased to 45 L and 50% FiO2 with O2 saturation in the low 90s. Blood cultures revealed no growth. Sputum culture revealed no growth. White count 12.2. Hemoglobin 9.0. Platelets 180. Sodium 143. Potassium 4.6. Bicarb 31. BUN 33. Creatinine 0.7. Glucose 175. She is continued on cefepime. Remains on bronchodilators, steroids, vitamin supplements. Remains on oral diuretics. Progress note dated June 14, 2023. 82-year-old female with a history of asthma, and aortic stenosis. The patient was admitted with a diagnosis of possible pneumonia. The patient had a recent episode of coronavirus infection, and did test positive on this admission again for coronavirus. Today she is sitting in a chair next to her hospital bed. She has been weaned off Airvo, down to high flow nasal cannula at 7 L. She is receiving cefepime. She does feel better. Current labs include a white count of 13.2, hemoglobin 8.7, hematocrit 29.2, and a platelet count of 171,000. The patient is seen today June 15, 2023 in follow-up on the regular medical floor. She is currently sitting up in a chair at the bedside. Awake and alert in no acute distress. Breathing a bit easier today compared to yesterday. She is currently on 7 L high flow nasal cannula maintaining O2 saturation in the low 90s. She is continued on cefepime. Blood cultures revealed no growth. Sputum culture reveals no growth. Glucose 246. She remains on bronchodilators and steroids. Remains on oral diuretics. Lovenox for DVT prophylaxis. Continued on multivitamins. The patient is seen today June 16, 2023 in follow-up on the regular medical floo r. She is currently sitting up in a chair at the bedside. Awake and alert. She is back on Airvo high flow oxygen at 40 L and 50% FiO2. She has been very slow to progress. Her chest x-ray shows worsening bilateral infiltrates. She remains on Symbicort, albuterol, Singulair, Solu-Medrol. Remains on antibiotics in the form of cefepime. Continued on vitamin supplements. Remains on oral diuretics. Doppler of the lower extremities are negative for DVT. Blood cultures revealed no growth. Sputum culture revealed no growth. White count 16.4. Hemoglobin 8.7. Platelets 149. Sodium 145. Potassium 4.4. Bicarb 36. BUN 35. Creatinine 0.6. Glucose 178. AST 57. ALT 58. Lovenox for DVT prophylaxis. On today's evaluation of 06/17/2023, I am seeing the patient for a follow-up. The patient remains hypoxic with a chest x-ray showing diffuse bilateral pulmonary filtrates consistent with either cardiogenic versus noncardiogenic pulmonary edema. The patient diffuse airspace pulmonary filtrates throughout the lung stoll bilaterally. Noted the patient was hospitalized approximate 2 to 3 weeks ago for COVID-19 related pneumonia and CHF and the patient was treated and the chest x-ray prior to her discharge showed complete clearing. She is also noted to have mitral stenosis. For now, the patient is on high flow oxygen utilizing Airvo system with a flow of 40 L and FiO2 of 60%. The Doppler of the lower extremity was done and showed no evidence of any DVT and this was done on 06/16/2023. The patient is afebrile. The patient is hemodynamically stable. The patient remains on bronchodilators and the patient is currently on Ventolin HFA 4 times a day, Symbicort as maintenance the patient is empirically covered with IV cefepime and she is also on IV Solu-Medrol 60 mg every 6 hours. Suggested starting the patient on Lasix drip to optimize her volume status. Her most recent echocardiogram that was done on 05/27/2023 showed a preserved LV function. Nevertheless, the patient had moderate thickening and calcification of the anterior and the posterior mitral valve leaflet and the mitral valve was severely stenotic. There was mild aortic stenosis in addition. Right vent ricular systolic pressure was diminished to be around 58. There is severe LA dilatation. On today's evaluation of 06/17/2022, the patient got transferred to the intensive care unit. I attended on this patient as the patient developed shortness of breath and acute tachycardia and the patient was found to be in new onset atrial fibrillation with rapid ventricular response. Heart rate was around 170. The patient was still maintaining her home blood pressure. She was transferred to the ICU and the patient was started on amiodarone initially a bolus of 150 mg was given. During this time, the patient developed some hypotension with a systolic blood pressure in the low 80s. Based on that, cardiology was involved and the patient was immediately cardioverted. The patient underwent DC cardiov ersion that was successful and the patient is currently back in normal sinus rhythm. Amiodarone is running at 1 mg/min at this point in time. At the same time, the patient remains on Lasix drip at 5 mg an hour. The fluid balance has been negative at least 3 L over the past 24 hours. Chest x-ray still showing diffuse bilateral pulmonary filtrates consistent with pulmonary edema. Noncardiogenic cause of pulm edema is also considered although I favor valvular heart disease with secondary atrial fibrillation and heart failure. The patient has severe mitral stenosis. WBC count is at 22 with a hemoglobin 9.1 and a platelet count of 180. Potassium level is at 2.7 needs to be replaced with a BUN of 50 and a creatinine of 0.9 and a sodium levels at 137. Blood sugars also elevated this morning at 363. The patient was also started on IV heparin. During the process, the patient remained alert and awake. She feels less short of breath post cardioversion. Family has been updated periodically on her condition. At this point in time, the patient is on metoprolol 100 mg p.o. 3 times daily. The patient is also on amiodarone drip and IV heparin. The patient is post cardioversion. The patient is receiving IV cefepime and IV Solu-Medrol. Objective - Vital Signs Vital signs: Vital Signs Temp 97.7 F 06/18/23 08:00 Pulse 74 06/18/23 08:00 Resp 18 06/18/23 08:00 BP 120/58 06/18/23 08:00 Pulse Ox 93 L 06/18/23 09:16 FiO2 50 06/18/23 09:16 Intake & Output 06/17/23 06/18/23 06/18/23 18:59 06:59 18:59 Intake Total 100 Output Total 1900 1200 Balance -1900 -1100 Intake: Intake, IV Titration 100 Amount Furosemide 100 mg In 100 Sodium Chloride 0.9% 90 ml @ 10 MG/HR 10 mls/hr IV .Q10H [facility] Rx#: [id number] Output: Urine 1900 1200 Other: Voiding Method Bedside Commode - Exam GENERAL EXAM: Alert, 82-year-old white female appearing stated age, comfortable in no apparent distress. Patient is currently on Airvo. Shortness of breath improved post cardioversion. HEAD: Normocephalic and atraumatic EYES: Normal reaction of pupils, equal size. NOSE: Clear with pink turbinates. THROAT: No erythema or exudates. NECK: No masses, no JVD. CHEST: No chest wall deformity. LUNGS: Equal air entry with diffuse rhonchi and crackles. no conversational dyspnea or accessory muscle use while at rest CVS: S1 and S2 normal with grade 4 diastolic/systolic murmur, regular rhythm. No other extra heart sounds ABDOMEN: No hepatosplenomegaly, active bowel sounds, no guarding or rigidity. SPINE: No scoliosis or deformity SKIN: No rashes CENTRAL NERVOUS SYSTEM: No focal deficits, tone is normal in all 4 extremities. EXTREMITIES: There is no peripheral edema, clubbing, or cyanosis. Peripheral pulses are intact. - Labs CBC & Chem 7: 06/18/23 10:58 06/18/23 10:58 Labs: Abnormal Lab Results - Last 24 Hours (Table) 06/17/23 06/17/23 06/17/23 Range/Units 11:49 16:51 20:30 POC Glucose (mg/dL) 305 H 319 H 362 H (70-110) mg/dL 06/18/23 Range/Units 05:55 POC Glucose (mg/dL) 226 H (70-110) mg/dL Assessment and Plan Plan: Acute hypoxic respiratory failure most likely secondary to pulmonary edema related to her valvular heart disease. The patient has severe mitral stenosis, mild aortic stenosis in addition to severe pulm hypertension. LV function is preserved. Other less likely possibilities include hospital-acquired pneumonia versus ongoing/worsening COVID-19 pneumonia. The patient developed diffuse bilateral pulmonary filtrates with acute hypoxic respiratory failure the patient is currently on air Vo. She is also covered with cefepime and IV Solu-Medrol. Chest x-ray from today still showing diffuse bilateral pulm infiltrates. The patient has been diuresed and the patient has been negative fluid balance of at least 3 L over the past 24 hours New onset atrial fibrillation with RVR. The patient became hemodynamically unstable/hypotensive and the patient received cardioversion. Currently back to normal sinus rhythm. Currently on metoprolol 1 mg 3 times daily and amiodarone loading. She is also on IV heparin. Acute exacerbation of mild intermittent chronic bronchial asthma Recent discharge on May 31, 2023 for COVID-19 pneumonia, treated with remdesivir. Still testing positive. Noted the patient has complete clearing of the bilateral pulmonary filtrates on previous hospitalization and the chest x- ray was initially clear prior to her discharge. History of coronary artery disease with previous PCI/stent x3 History of hyperlipidemia History of hypertension Moderate to severe mitral calcification and moderate to severe mitral stenosis and mild aortic regurgitation and stenosis. LV function is preserved and the patient has an ejection fraction of 60 to 65%. Pulmonary hypertension WHO class II Rheumatoid arthritis History of hypothyroidism Lifelong non-smoker Plan: The patient is currently in the intensive care unit for close monitoring. Will monitor oxygenation Keep the patient on Airvo high flow oxygen Continue IV heparin Continue amiodarone loading Continue metoprolol 100 mg 3 times daily Replace potassium Titrate the FiO2 as tolerated May need BiPAP support Continue IV cefepime Changed to Solu-Medrol to 40 mg every 12 hours Dopplers revealed no DVT Condition is guarded We will continue to follow Case was discussed with the family at the bedside. Condition is somewhat critical and the patient will be kept here in the ICU for now. This evaluation was done more than 30 minutes. Family was updated and the case was also discussed with cardiology. Time with Patient: Greater than 30
[2023-06-18] MEDS: INSULIN DETEMIR (LEVEMIR) 100 UNIT/ML SYR SQ SCH (14:20)
[2023-06-18] MEDS ORDERED: AMIODARONE 450 MG in DEXTROSE 5% IN WATER 250 ML IV SCH (16:15)
[2023-06-18 18:08] LABS: Glucose,Whole Blood 223 mg/dL (70-110)
[2023-06-18] MEDS: METOPROLOL TARTRATE 50 MG TAB PO SCH ×2 (18:19→20:50)
[2023-06-18] MEDS: AMIODARONE 360 MG in DEXTROSE 5% IN WATER 200 ML IV SCH (18:21)
[2023-06-18] MEDS ORDERED: Magnesium Replacement Protocol 1 EACH MISC MISCELLANE PRN (20:13)
--- NOTE | 2023-06-18 20:13 | P.PN ---
Subjective 82-year-old female, history of hypertension, hyperlipidemia, mitral valve prolapse, hypothyroidism, rheumatoid arthritis, CHF present to the emergency department with difficulty breathing. Onset was yesterday. Patient has had a cough for over a week. Patient has occasional yellow sputum. Patient did have COVID-19 pneumonia couple weeks ago and was in the hospital and discharged home. Patient is unaware of any fevers at home. Patient has chronic interstitial lung disease. She was just recently discharged from here on the 2023 after being treated for COVID-19 pneumonia. She did received remdesivir, bronchodilators and steroids. She is presented back to the emergency room this morning June 09, 2023 with complaints of increasing shortness of breath cough and congestion that started last evening. She did utilize her 's home oxygen without much improvement. She herself is not on home oxygen. X-ray shows patchy bilateral lung infiltrates compatible with atypical pneumonia possibly ongoing COVID-pneumonia. Suspect some underlying interstitial lung disease as well. White count 16.9. Hemoglobin 10.2. Platelets 265. Sodium 137. Potassium 4.1. Bicarb 29. BUN 21. Creatinine 0.51. proBNP 2430. AST 69. ALT 41. Procalcitonin 0.12. 06/10/2023 Patient awake and alert She has more shortness of breath today improved with higher oxygen from 2 up to 3 L/min Repeat chest x-ray showing patchy bilateral infiltrates, stable exam. No fever today but hemodynamically stable BMP is unremarkable Patient remains on IV cefepime, IV vancomycin and IV Solu-Medrol 60 mg and normal saline 75 mL/h 06/11/2023 Patient breathing is worse today, she is requiring nonrebreather 60 L/min with FiO2 of 90% and also she is tachypneic and anxious, As per staff patient and family declining intubation and if she deteriorates she might need to be placed on BiPAP WBC is 22.3, hemoglobin stable 9.7 She is currently covered with IV cefepime and IV vancomycin and IV Solu-Medrol. IV fluids was discontinued 06/12/2023 patient awake and alert, in mild distress because of her tachypnea but is improving Oxygen requirement down to 45 L/m No other new complaints. She remains on IV Solu-Medrol 60 mg in the broad-spectrum antibiotics cefepime and IV vancomycin 06/13/2023 Patient sitting up in chair, her breathing rate is similar to yesterday She is still on high flow nasal cannula at 45 L/min She remains on IV cefepime and Vanco vancomycin, she is on IV Solu-Medrol. No IV fluid Daughter at bedside and all questions answered and they are agreeable with the plan I am resuming the care of the patient on 06/18/2023 Patient was looking tired today, awake and alert but she was short of breath Although oxygen saturation show improvement down to 40 L/min compared to yesterday 45 L/min. After rounding I got a call from the nurse patient is becoming tachycardic, EKG showing A-fib and RVR. Heart rate went up to 174 and patient was hypotensive therefore we transferred the patient to the intensive care unit and amiodarone bolus and drip was started. Cardiology team evaluated the patient and patient is status post cardioversion which she changed back to sinus rhythm. Hypokalemia 2.7 been replaced. Also patient started on metoprolol 100 mg 3 times daily and IV heparin drip. Currently patient looks more comfortable and heart rate and blood pressure improved and stabilized, heart rate is in 65. Chest x-ray repeated today showing bilateral infiltrates slightly better compared to last chest x-ray, consistent with pulmonary edema with proBNP is elevated to 430. While pro- Calcitonin is low or mildly elevated 0.12. Patient also kept on IV Solu-Medrol 40 mg instead of 60 mg yesterday. Is given twice daily. Glucose is elevated and patient started on Levemir 10 units daily review of systems CONSTITUTIONAL: No fever, no malaise, no fatigue. HEENT: No recent visual problems or hearing problems. Denied any sore throat. GASTROINTESTINAL: No diarrhea, no nausea, no vomiting, no abdominal pain. Normoactive bowel sounds. NEUROLOGICAL: No headaches, no weakness, no numbness. HEMATOLOGICAL: Denies any bleeding or petechiae. GENITOURINARY: Denies any burning micturition, frequency, or urgency. MUSCULOSKELETAL/RHEUMATOLOGICAL: Denies any joint pain, swelling, or any muscle pain. ENDOCRINE: Denies any polyuria or polydipsia. Active Medications Generic Name Dose Route Start Last Admin Trade Name Freq PRN Reason Stop Dose Admin Acetaminophen 650 mg 06/10/23 12:38 06/17/23 21:12 Acetaminophen Tab 325 Mg Tab PO 650 mg Q6HR PRN Administration Fever and/ or Pain Albuterol Sulfate 2 puff 06/10/23 13:00 06/18/23 20:10 Albuterol Hfa Inhaler INHALATION 2 puff RT-QID PAUL Administration Albuterol Sulfate 2 puff 06/10/23 12:46 Albuterol Hfa Inhaler INHALATION RT-Q4H PRN shortness of breath Alprazolam 0.25 mg 06/09/23 11:33 06/18/23 09:30 Alprazolam 0.25 Mg Tab PO 0.25 mg Q8HR PRN Administration Anxiety Ascorbic Acid 1,000 mg 06/10/23 09:00 06/18/23 10:23 Ascorbic Acid 500 Mg Tab PO Not Given DAILY [facility] Aspirin 81 mg 06/10/23 07:30 06/18/23 07:01 Aspirin 81 Mg PO 81 mg AC-BRKFST PAUL Administration Atorvastatin Calcium 80 mg 06/09/23 11:45 06/18/23 10:24 Atorvastatin 80 Mg Tab PO Not Given DAILY [facility] Benzonatate 200 mg 06/11/23 07:00 06/14/23 12:52 Benzonatate 100 Mg Cap PO 200 mg TID PRN Administration Cough Budesonide/Formoterol Fumarate 2 puff 06/10/23 20:00 06/18/23 20:10 Symbicort 160-4.5 Mcg Inhaler INHALATION 2 puff RT-BID PAUL Administration Calcium Carbonate/Glycine 500 mg 06/10/23 09:00 06/18/23 10:24 Calcium Carbonate 500 Mg Chewable PO Not Given DAILY PAUL Cholecalciferol 50 mcg 06/10/23 09:00 06/18/23 09:30 Cholecalciferol 25 Mcg (1000 Iu) Tablet PO 50 mcg DAILY PAUL Administration Dapagliflozin 5 mg 06/10/23 09:00 06/18/23 09:29 Dapagliflozin Propanediol 5 Mg Tablet PO 5 mg DAILY PAUL Administration Dextrose/Water 25 ml 06/15/23 16:06 Dextrose 50% Syringe 50 Ml IVP PER PROTOCOL PRN Hypoglycemia Protocol Dextrose/Water 50 ml 06/15/23 16:06 Dextrose 50% Syringe 50 Ml IVP PER PROTOCOL PRN Hypoglycemia Protocol Heparin Sodium (Porcine) 0 unit 06/18/23 10:13 Heparin Sodium 1,000 Un/Ml (10ml Vl) IV PER PROTOCOL PRN Low PTT Protocol Cefepime HCl 1 gm/ Sodium 50 mls @ 12.5 mls/hr 06/09/23 21:00 06/18/23 11:37 Chloride IVPB 12.5 mls/hr Q12HR [facility] Administration Protocol Furosemide 100 mg/ Sodium 100 mls @ 10 mls/hr 06/17/23 12:45 06/18/23 11:36 Chloride IV 5 mg/hr .Q10H PAUL 5 mls/hr Administration 10 MG/HR Heparin Sodium/Sodium Chloride 250 mls @ 5.933 mls/hr 06/18/23 10:15 06/18/23 10:57 25,000 unit/ Sodium Chloride IV 12 units/kg/hr .Q24H PAUL 5.933 mls/hr Administration Protocol 12 UNITS/KG/HR Amiodarone HCl 360 mg/ 200 mls @ 33.333 mls/hr 06/18/23 16:45 06/18/23 18:21 Dextrose/Water IV 1 mg/min .Q6H PAUL 33.333 mls/hr Administration Protocol 1 MG/MIN Insulin Aspart 0 unit 06/15/23 17:30 06/18/23 18:09 Insulin Aspart (Novolog) 100 Unit/Ml Vial SQ 2 unit ACHS [facility] Administration Protocol Insulin Detemir 10 unit 06/18/23 13:30 06/18/23 14:20 Insulin Detemir (Levemir) 100 Unit/Ml Syr SQ 10 unit DAILY@0700 [facility] Administration Levothyroxine Sodium 56 mcg 06/09/23 11:45 06/16/23 06:24 Levothyroxine 112 Mcg Tab PO 56 mcg SuSa@0630 [facility] Administration Levothyroxine Sodium 112 mcg 06/10/23 06:30 06/18/23 07:01 Levothyroxine 112 Mcg Tab PO 112 mcg [id number]@0630 [facility] Administration Magnesium Oxide 400 mg 06/09/23 11:45 06/18/23 10:24 Magnesium Oxide 400 Mg Tab PO Not Given DAILY [facility] Methylprednisolone Sodium Succinate 40 mg 06/18/23 21:00 Methylprednisolone Sod Succi 40 Mg/Ml 1 Ml Vial IV Q12HR [facility] Metoprolol Tartrate 100 mg 06/18/23 16:00 06/18/23 18:19 Metoprolol Tartrate 50 Mg Tab PO Not Given TID [facility] Miscellaneous Information 1 each 06/09/23 09:40 Pneumonia Protocol Utilized 1 Each Misc PO ONCE PRN Per Protocol Miscellaneous Information 1 each 06/18/23 11:57 Potassium Replacement Protocol 1 Each Misc MISCELLANE DAILY PRN Per Protocol Protocol Montelukast Sodium 10 mg 06/09/23 21:00 06/17/23 21:12 Montelukast 10 Mg Tab PO 10 mg HS PAUL Administration Naloxone HCl 0.2 mg 06/18/23 11:07 Naloxone 0.4 Mg/Ml 1 Ml Vial IV Q2M PRN Opioid Reversal Pantoprazole Sodium 40 mg 06/09/23 11:45 06/18/23 07:01 Pantoprazole 40 Mg Tablet PO 40 mg AC-BRKFST PAUL Administration Zinc Sulfate 220 mg 06/09/23 11:45 06/18/23 10:24 Zinc Sulfate 220 Mg Cap PO Not Given DAILY [facility] Objective - Vital Signs Vital signs: Vital Signs Temp 97.7 F 06/18/23 08:00 Pulse 74 06/18/23 08:00 Resp 18 06/18/23 08:00 BP 120/58 06/18/23 08:00 Pulse Ox 93 L 06/18/23 09:16 FiO2 50 06/18/23 09:16 Intake & Output 06/17/23 06/18/23 06/18/23 18:59 06:59 18:59 Intake Total 100 Output Total 1900 1200 Balance -1900 -1100 Intake: Intake, IV Titration 100 Amount Furosemide 100 mg In 100 Sodium Chloride 0.9% 90 ml @ 10 MG/HR 10 mls/hr IV .Q10H [facility] Rx#: [id number] Output: Urine 1900 1200 Other: Voiding Method Bedside Commode - Exam GENERAL: The patient is alert and oriented x3, not in any acute distress. Well developed, well nourished. HEENT: Pupils are round and equally reacting to light. EOMI. No scleral icterus. No conjunctival pallor. Normocephalic, atraumatic. No pharyngeal erythema. No thyromegaly. CARDIOVASCULAR: S1 and S2 present. No murmurs, rubs, or gallops. -PULMONARY: Chest is clear to auscultation, no wheezing , bilateral crackles. Tachypneic, mild ABDOMEN: Soft, nontender, nondistended, normoactive bowel sounds. No palpable organomegaly. MUSCULOSKELETAL: No joint swelling or deformity. EXTREMITIES: No cyanosis, clubbing, or pedal edema. NEUROLOGICAL: Gross neurological examination did not reveal any focal deficits. SKIN: No rashes. no petechiae. - Labs CBC & Chem 7: 06/18/23 10:58 06/18/23 10:58 Labs: Abnormal Lab Results - Last 24 Hours (Table) 06/17/23 06/17/23 06/17/23 Range/Units 11:49 16:51 20:30 POC Glucose (mg/dL) 305 H 319 H 362 H (70-110) mg/dL 06/18/23 Range/Units 05:55 POC Glucose (mg/dL) 226 H (70-110) mg/dL Assessment and Plan Assessment: 1. Acute hypoxic respiratory failure; multifactorial; hospital-acquired pneumonia versus --Increased oxygen requirement to high flow nasal cannula acute diastolic heart failure with ejection fraction 60 to 65% --Lasix drip 2. Acute exacerbation of asthma -IV Solu-Medrol 40 mg every 12 hours; DuoNeb nebulizer treatments 4 times daily and as needed 3. Mild LETICIA; hold off on IV fluid therapy given worsening chest congestion; we will monitor renal function electrolytes closely; avoid nephrotoxins and hypotension 4. Hospital-acquired pneumonia;-- Pulmonary on board and patient has been placed on IV cefepime and vancomycin 5. New onset A-fib and RVR, s/p cardioversion Currently on metoprolol 100 mg and amiodarone. Also patient started on IV heparin 6. Hypertension; verapamil SR 120 mg daily; metoprolol 100 mg 3 times daily 7. Hyperlipidemia; Lipitor 40 mg daily 8. Hypothyroidism; levothyroxine 112 mcg Saturday through Saturday and 56 mcg and Saturday 9. Coronary artery disease/CHF; status post PCI/stent x 3; patient remains on aspirin, Lipitor, Imdur -- Lasix 40 mg daily and Farxiga 5 mg daily 10. Mitral stenosis; patient has moderate to severe mitral calcifications causing moderate to severe mitral stenosis and mild aortic regurgitation and stenosis -- Last echocardiogram reveals an EF of 60 to 65% DVT prophylaxis; SCDs/subcu heparin CODE STATUS; full code
[2023-06-18 20:41] LABS: Glucose,Whole Blood 155 mg/dL (70-110)
[2023-06-18] MEDS: methylPREDNISolone SOD SUCCI 40 MG/ML 1 ML VIAL IV SCH (20:50)
[2023-06-18 21:35] LABS: HCT 27.1 % (34.0-46.0); HGB 8.4 gm/dL (11.4-16.0); Hypochromasia Slight; Macrocytosis Slight; Mean Platelet Volume 8.5; Platelet Count 143 k/uL (150-450); RBC 2.71 m/uL (3.80-5.40); RDW 15.5 % (11.5-15.5); WBC 16.1 k/uL (3.8-10.6)
[2023-06-18] MEDS: POTASSIUM CHLORIDE ER 20 MEQ TAB.ER PO SCH (22:36)
[2023-06-19 06:45] LABS: African American GFR (CKD) >90 (>60 ml/min/1.73 sqM); Blood Urea Nitrogen 47 mg/dL (7-17); Calcium 8.7 mg/dL (8.4-10.2); Chloride 95 mmol/L (98-107); Glucose 131 mg/dL (74-99); Magnesium 2.1 mg/dL (1.6-2.3); Non-African American GFR(CKD) 82 (>60 ml/min/1.73 sqM); Potassium 4.9 mmol/L (3.5-5.1); Sodium 137 mmol/L (137-145)
[2023-06-19 06:46] LABS: Glucose,Whole Blood 141 mg/dL (70-110)
[2023-06-19 06:53] LABS: Anion Gap 7 mmol/L; Anisocytosis Slight; Basophils % (A) 0 %; Eosinophils % (A) 0 %; HGB 8.8 gm/dL (11.4-16.0); Hypochromasia Slight; Lymphocytes # (A) 0.2 k/uL (1.0-4.8); Lymphocytes % (A) 1 %; MCH 30.6 pg (25.0-35.0); MCHC 31.5 g/dL (31.0-37.0); MCV 97.4 fL (80.0-100.0); Macrocytosis Slight; Mean Platelet Volume 9.6; Monocytes # (A) 0.6 k/uL (0-1.0); Monocytes % (A) 3 %; Neutrophils # (A) 16.8 k/uL (1.3-7.7); Neutrophils % (A) 95 %; Platelet Count 143 k/uL (150-450); RBC 2.87 m/uL (3.80-5.40); WBC 17.7 k/uL (3.8-10.6)
[2023-06-19 06:58] LABS: Carbon Dioxide 35 mmol/L (22-30)
--- NOTE | 2023-06-19 07:41 | XR ---
EXAMINATION TYPE: XR chest 1V portable DATE OF EXAM: 06/19/2023 HISTORY: Shortness of breath. COMPARISON: 06/18/2023 TECHNIQUE: Single view of the chest is submitted. FINDINGS: Demonstrated are scattered senescent parenchymal change. Airspace infiltrates throughout both lung stoll persist unchanged. Findings suspected to reflect pne umonia. Superimposed pulmonary edema difficult to exclude. The heart is stable. Hilar and mediastinal structures are within normal limits. Degenerative changes are seen of the dorsal spine. IMPRESSION: 1. Airspace infiltrates throughout both lung stoll persist unchanged. Findings suspected to reflect pneumonia. Superimposed pulmonary edema difficult to exclude.
[2023-06-19] MEDS: HEPARIN SODIUM 1,000 UN/ML (10ML VL) IV PRN (07:45)
[2023-06-19] MEDS: AMIODARONE 200 MG TAB PO SCH (08:50)
--- NOTE | 2023-06-19 09:26 | P.CRDCN ---
History of Present Illness Consult date: 06/19/23 Consult reason: atrial fibrillation History of present illness: The patient is an 82-year-old female who follows in the office with Dr. Jain. Patient was recently admitted to the hospital with COVID 19 and discharged. She returned to the hospital with shortness of breath and has subsequently been treated for pneumonia. Yesterday the patient developed A-fib with RVR and became hemodynamically unstable. She had increased oxygen requirem ents as well as hypotension. She underwent cardioversion and was started on IV amiodarone. The patient has a known history of severe mitral stenosis, which is being monitored by Dr. Jain. DIAGNOSTICS: EKG showed A-fib with RVR with a heart rate of 153 Telemetry shows sinus mechanism with heart rate averaging in the 60s post cardioversion Echocardiogram from 05/27/23 showed preserved LV function, mild LVH, severe mitral stenosis and severe pulmonary hypertension Lab data: WBC 17.7, hemoglobin 8.8, hematocrit 28.0, platelet 143, sodium 137, potassium 4.9, BUN 47, creatinine 0.70, AST 74, ALT 75 REVIEW OF SYSTEMS: No fever or chills. No cough or expectoration. No diaphoresis. Patient denies headache, dizziness, blurred vision, double vision. Patient denies any stomach discomfort. No nausea, vomiting. No hematochezia. No hematemesis. Denies any black stools or blood in his stools. Denies dysuria or hematuria. No muscle weakness or numbness. Positive for shortness of breath. Denies chest pain or pressure. PHYSICAL EXAMINATION: This is a 82-year-old female in no apparent distress at the time of my examination. HEENT: Head is atraumatic, normocephalic. Pupils are equal, round. There is no jugular venous distention. No carotid bruit is heard. CHEST EXAMINATION: Lungs are diminished to auscultation. No chest wall tenderness is noted on palpation or with deep breathing. HEART EXAMINATION: Heart regular rate and rhythm. S1, S2 heard. Systolic murmur. ABDOMEN: Soft, nontender. Bowel sounds are heard. No organomegaly noted. EXTREMITIES: 2+ peripheral pulses with no evidence of peripheral edema and no calf tenderness noted. NEUROLOGIC EXAMINATION: Patient is awake, alert and oriented x3. FINAL ASSESSMENT AND PLAN: A-fib with RVR, hemodynamically unstable Mitral stenosis, rheumatic History of CAD Recent COVID-pneumonia Pulmonary hypertension Hyperlipidemia Hypertension History of bronchial asthma PLAN: Transition to oral anticoagulation with warfarin. Continue heparin until INR is therapeutic between 2 and 3. Transition to oral amiodarone Aggressive pulmonary hygiene Further recommendations to be based upon clinical course I am dictating on behalf of Dr Austin Haskins's history/physical and assessment/plan. Past Medical History Past Medical History: Heart Failure, Hyperlipidemia, Hypertension, Mitral Valve Prolapse (MVP), Rheumatoid Arthritis (RA), Thyroid Disorder Additional Past Medical History / Comment(s): HAD A PNE VACCINE AFTER AGE 67 BUT NOT SURE OF DATE,OFFICE CLOSED AT TIME OF THIS ADMIT. Last Myocardial Infarction Date:: History of Any Multi-Drug Resistant Organisms: None Reported Past Surgical History: Section, Orthopedic Surgery Additional Past Surgical History / Comment(s): total right knee replacement Past Anesthesia/Blood Transfusion Reactions: No Reported Reaction Additional Past Anesthesia/Blood Transfusion Reaction / Comment(s): clausterphobia Past Psychological History: No Psychological Hx Reported Smoking Status: Never smoker Past Alcohol Use History: Occasional Past Drug Use History: None Reported - Past Family History Father Additional Family Medical History / Comment(s): smoker-had problems related to that Mother Additional Family Medical History / Comment(s): smoker-problems related to that Medications and Allergies Home Medications Medication Instructions Recorded Confirmed Type Multivit-Min/FA/Lycopen/Lutein 1 tab PO DAILY 03/29/16 06/09/23 History [Centrum Silver Tablet] Omeprazole 20 mg PO DAILY 03/29/16 06/09/23 History Budesonide-Formot 160-4.5 Mcg 2 puff INHALATION RT-BID #1 inhaler 04/06/16 06/09/23 Rx [Symbicort 160-4.5 Mcg Inhaler] Alendronate Sodium [Fosamax] 70 mg PO MO 08/09/21 06/09/23 History Cholecalciferol [Vitamin D3 (25 50 mcg PO DAILY 08/09/21 06/09/23 History Mcg = 1000 Iu)] Levothyroxine Sodium [Synthroid] 112 mcg PO MOTUWETHFR 08/09/21 06/09/23 History Magnesium Oxide [Darden] 500 mg PO DAILY 08/09/21 06/09/23 History Montelukast [Singulair] 10 mg PO HS 08/09/21 06/09/23 History ALPRAZolam [Xanax] 0.25 mg PO Q8HR PRN 10/06/21 06/09/23 History modafiniL [Provigil] 200 mg PO DAILY PRN 10/06/21 06/09/23 History Isosorbide Mononitrate ER [Imdur] 30 mg PO DAILY 30 Days #30 tab 10/09/21 06/09/23 Rx Acetaminophen [Tylenol Arthritis] 650 mg PO Q8HR PRN 03/19/22 06/09/23 History Empagliflozin [Jardiance] 10 mg PO DAILY 03/19/22 06/09/23 History Levothyroxine Sodium [Synthroid] 56 mcg PO SUSA 03/19/22 06/09/23 History Metoprolol Succinate (ER) [Toprol 100 mg PO DAILY 03/19/22 06/09/23 History XL] Ascorbic Acid [Vitamin C] 1,000 mg PO DAILY 05/26/23 06/09/23 History Aspirin 81 mg PO AC-BRKFST 05/26/23 06/09/23 History Atorvastatin [Lipitor] 80 mg PO DAILY 05/26/23 06/09/23 History Calcium Carbonate [Calcium] 600 mg PO DAILY 05/26/23 06/09/23 History Furosemide [Lasix] 40 mg PO DAILY 05/26/23 06/09/23 History Verapamil HCl [Verapamil ER PM] 1 cap PO DAILY 05/26/23 06/09/23 History Zinc 200mg 200 mg PO DAILY 05/26/23 06/09/23 History Albuterol Inhaler [Ventolin Hfa 2 puff INHALATION RT-QID PRN #1 05/31/23 06/09/23 Rx Inhaler] each predniSONE See Taper PO DIRECTED #30 tab 05/31/23 06/09/23 Rx Allergies Allergy/AdvReac Type Severity Reaction Status Date / Time clarithromycin [From Biaxin] Allergy Unknown Verified 06/09/23 09:06 gemifloxacin [From Factive] Allergy Unknown Verified 06/09/23 09:06 prednisone Allergy Unknown Verified 06/09/23 09:06 amoxicillin [From Augmentin] AdvReac Nausea & Verified 06/09/23 09:06 Vomiting & Diarrhea clavulanic acid AdvReac Nausea & Verified 06/09/23 09:06 [From Augmentin] Vomiting & Diarrhea Physical Exam Vitals: Vital Signs Temp Pulse Resp BP Pulse Ox FiO2 06/19/23 08:00 98.0 F 67 23 117/58 92 L 35 06/19/23 07:21 35 06/19/23 07:00 60 16 112/62 95 40 06/19/23 06:00 61 18 120/55 97 06/19/23 05:30 56 L 17 117/70 97 06/19/23 05:00 58 L 14 112/60 95 06/19/23 04:30 59 L 17 113/56 97 06/19/23 04:29 95 40 06/19/23 04:00 98.7 F 60 21 102/61 98 45 06/19/23 03:30 57 L 19 110/60 98 06/19/23 03:00 58 L 23 109/65 97 06/19/23 02:30 62 24 112/61 97 06/19/23 02:00 60 19 118/59 99 06/19/23 01:30 57 L 19 105/50 98 06/19/23 01:00 56 L 17 127/60 99 06/19/23 00:30 56 L 14 109/60 99 06/19/23 00:29 98 45 06/19/23 00:00 97.5 F L 56 L 16 121/53 97 45 06/18/23 23:30 55 L 22 114/63 99 06/18/23 23:00 57 L 22 96/53 99 06/18/23 22:45 56 L 24 96/53 99 06/18/23 22:30 56 L 18 96/53 98 06/18/23 22:00 53 L 17 103/55 98 06/18/23 21:30 57 L 19 117/66 99 06/18/23 21:00 69 26 H 107/68 97 06/18/23 20:30 66 17 111/63 99 06/18/23 20:10 97 50 06/18/23 20:00 97.1 F L 68 19 106/51 97 50 06/18/23 19:30 68 34 H 115/61 97 06/18/23 19:00 68 20 110/55 97 06/18/23 18:30 68 18 119/52 98 06/18/23 18:00 68 18 110/57 98 06/18/23 17:30 65 25 H 113/60 97 06/18/23 17:00 71 22 107/70 97 06/18/23 16:30 77 14 113/55 97 06/18/23 16:00 98.4 F 75 35 H 118/53 96 06/18/23 15:40 50 06/18/23 15:30 69 15 115/60 96 06/18/23 15:00 80 18 116/52 97 06/18/23 14:30 73 20 120/55 96 06/18/23 14:00 72 21 114/56 97 06/18/23 13:30 75 14 119/59 97 06/18/23 13:00 80 17 125/64 93 L 06/18/23 12:50 86 29 H 125/64 95 06/18/23 12:40 78 27 H 123/61 93 L 06/18/23 12:30 82 15 123/61 93 L 06/18/23 12:20 88 20 113/59 93 L 06/18/23 12:10 79 18 117/63 92 L 06/18/23 12:00 98.4 F 85 34 H 118/63 93 L 50 06/18/23 11:50 86 18 92 L 06/18/23 11:40 86 22 119/52 91 L 06/18/23 11:30 86 18 117/55 92 L 06/18/23 11:20 76 31 H 124/57 99 06/18/23 11:10 138 H 18 83/54 96 06/18/23 11:07 50 06/18/23 11:00 142 H 14 97/65 93 L 06/18/23 10:50 154 H 26 H 88/61 90 L 50 06/18/23 10:40 158 H 24 77/63 06/18/23 10:30 174 H 35 H 06/18/23 10:29 40 H 06/18/23 09:16 93 L 50 Intake and Output 06/18/23 06/19/23 06/19/23 22:59 06:59 14:59 Intake Total 525.0 901.443 133.604 Output Total 565 495 150 Balance -40.0 406.443 -16.396 Intake: IV 225.0 435.0 10 0.9 Normal Saline @ KVO 50 60 10 10mL/hr Cefepime 1 gm In Sodium 25.0 25.0 Chloride 0.9% 50 ml @ 12. 5 mls/hr IVPB Q12HR PAUL Rx#:[id number] Potassium Chloride 20 meq 150 350 In Water For Injection 1 100ml.bag @ 50 mls/hr IVPB Q2H PAUL Rx#: [id number] Intake, IV Titration 300 466.443 123.604 Amount Amiodarone 360 mg In 374.443 Dextrose 5% in Water 200 ml @ 1 MG/MIN 33.333 mls/ hr IV .Q6H PAUL Rx#: [id number] Furosemide 100 mg In 92 Sodium Chloride 0.9% 90 ml @ 10 MG/HR 10 mls/hr IV .Q10H PAUL Rx#: [id number] Heparin Sod,Pork in 0.45% 123.604 NaCl 25,000 unit In 0.45 % NaCl 1 250ml.bag @ 12 UNITS/KG/HR 5.933 mls/hr IV .Q24H PAUL Rx#: [id number] Potassium Chloride 20 meq 300 In Water For Injection 1 100ml.bag @ 50 mls/hr IVPB Q2H PAUL Rx#: [id number] Output: Urine 565 495 150 Other: Voiding Method Indwelling Catheter Indwelling Catheter Weight 51.4 kg Results 06/19/23 05:31 06/19/23 05:31 Coagulation 06/18/23 06/18/23 06/19/23 Range/Units 10:58 15:52 05:31 PT 12.7 H (10.0-12.5) sec APTT 22.5 55.0 H 42.2 H (22.0-30.0) sec CBC 06/18/23 06/18/23 06/19/23 Range/Units 10:58 21:16 05:31 WBC 22.1 H 16.1 H 17.7 H (3.8-10.6) k/uL RBC 2.85 L 2.71 L 2.87 L (3.80-5.40) m/uL Hgb 9.1 L 8.4 L 8.8 L (11.4-16.0) gm/dL Hct 28.5 L 27.1 L 28.0 L (34.0-46.0) % Plt Count 180 143 L 143 L (150-450) k/uL Comprehensive Metabolic Panel 06/18/23 06/18/23 06/19/23 Range/Units 10:58 21:16 05:31 Sodium 137 137 (137-145) mmol/L Potassium 2.7 L* 3.0 L 4.9 (3.5-5.1) mmol/L Chloride 87 L 95 L (98-107) mmol/L Carbon Dioxide 38 H 35 H (22-30) mmol/L BUN 50 H 47 H (7-17) mg/dL Creatinine 0.97 0.70 (0.52-1.04) mg/dL Glucose 355 H 131 H (74-99) mg/dL Calcium 8.0 L 8.7 (8.4-10.2) mg/dL Current Medications Generic Name Dose Route Start Last Admin Trade Name Freq PRN Reason Stop Dose Admin Acetaminophen 650 mg 06/10/23 12:38 06/17/23 21:12 Acetaminophen Tab 325 Mg Tab PO 650 mg Q6HR PRN Administration Fever and/ or Pain Albuterol Sulfate 2 puff 06/10/23 13:00 06/19/23 08:01 Albuterol Hfa Inhaler INHALATION 2 puff RT-QID PAUL Administration Albuterol Sulfate 2 puff 06/10/23 12:46 Albuterol Hfa Inhaler INHALATION RT-Q4H PRN shortness of breath Alprazolam 0.25 mg 06/09/23 11:33 06/18/23 20:50 Alprazolam 0.25 Mg Tab PO 0.25 mg Q8HR PRN Administration Anxiety Amiodarone HCl 400 mg 06/19/23 09:00 06/19/23 08:50 Amiodarone 200 Mg Tab PO 400 mg BID PAUL Administration Ascorbic Acid 1,000 mg 06/10/23 09:00 06/19/23 08:50 Ascorbic Acid 500 Mg Tab PO 1,000 mg DAILY PAUL Administration Aspirin 81 mg 06/10/23 07:30 06/19/23 06:52 Aspirin 81 Mg PO 81 mg AC-BRKFST PAUL Administration Atorvastatin Calcium 80 mg 06/09/23 11:45 06/19/23 08:50 Atorvastatin 80 Mg Tab PO 80 mg DAILY PAUL Administration Benzonatate 200 mg 06/11/23 07:00 06/14/23 12:52 Benzonatate 100 Mg Cap PO 200 mg TID PRN Administration Cough Budesonide/Formoterol Fumarate 2 puff 06/10/23 20:00 06/19/23 08:02 Symbicort 160-4.5 Mcg Inhaler INHALATION 2 puff RT-BID PAUL Administration Calcium Carbonate/Glycine 500 mg 06/10/23 09:00 06/19/23 08:50 Calcium Carbonate 500 Mg Chewable PO 500 mg DAILY PAUL Administration Cholecalciferol 50 mcg 06/10/23 09:00 06/19/23 08:50 Cholecalciferol 25 Mcg (1000 Iu) Tablet PO 50 mcg DAILY PAUL Administration Dapagliflozin 5 mg 06/10/23 09:00 06/19/23 08:50 Dapagliflozin Propanediol 5 Mg Tablet PO 5 mg DAILY PAUL Administration Dextrose/Water 25 ml 06/15/23 16:06 Dextrose 50% Syringe 50 Ml IVP PER PROTOCOL PRN Hypoglycemia Protocol Dextrose/Water 50 ml 06/15/23 16:06 Dextrose 50% Syringe 50 Ml IVP PER PROTOCOL PRN Hypoglycemia Protocol Heparin Sodium (Porcine) 0 unit 06/18/23 10:13 06/19/23 07:45 Heparin Sodium 1,000 Un/Ml (10ml Vl) IV 1,285 unit PER PROTOCOL PRN Administration Low PTT Protocol Cefepime HCl 1 gm/ Sodium 50 mls @ 12.5 mls/hr 06/09/23 21:00 06/19/23 08:50 Chloride IVPB 12.5 mls/hr Q12HR PAUL Administration Protocol Furosemide 100 mg/ Sodium 100 mls @ 10 mls/hr 06/17/23 12:45 06/19/23 05:30 Chloride IV 10 mg/hr .Q10H PAUL 10 mls/hr Administration 10 MG/HR Heparin Sodium/Sodium Chloride 250 mls @ 5.933 mls/hr 06/18/23 10:15 06/19/23 07:47 25,000 unit/ Sodium Chloride IV 14 units/kg/hr .Q24H PAUL 6.922 mls/hr Titration Protocol 12 UNITS/KG/HR Insulin Aspart 0 unit 06/15/23 17:30 06/19/23 06:48 Insulin Aspart (Novolog) 100 Unit/Ml Vial SQ Not Given ACHS PAUL Protocol Insulin Detemir 10 unit 06/18/23 13:30 06/19/23 06:51 Insulin Detemir (Levemir) 100 Unit/Ml Syr SQ 10 unit DAILY@0700 PAUL Administration Levothyroxine Sodium 56 mcg 06/09/23 11:45 06/16/23 06:24 Levothyroxine 112 Mcg Tab PO 56 mcg SuSa@0630 PAUL Administration Levothyroxine Sodium 112 mcg 06/10/23 06:30 06/19/23 06:52 Levothyroxine 112 Mcg Tab PO 112 mcg MoTuWeThFr@0630 PAUL Administration Magnesium Oxide 400 mg 06/09/23 11:45 06/19/23 08:50 Magnesium Oxide 400 Mg Tab PO 400 mg DAILY PAUL Administration Methylprednisolone Sodium Succinate 40 mg 06/18/23 21:00 06/18/23 20:50 Methylprednisolone Sod Succi 40 Mg/Ml 1 Ml Vial IV 40 mg Q12HR PAUL Administration Metoprolol Tartrate 50 mg 06/18/23 21:00 06/19/23 08:50 Metoprolol Tartrate 50 Mg Tab PO 50 mg BID PAUL Administration Miscellaneous Information 1 each 06/09/23 09:40 Pneumonia Protocol Utilized 1 Each Misc PO ONCE PRN Per Protocol Miscellaneous Information 1 each 06/18/23 11:57 Potassium Replacement Protocol 1 Each Misc MISCELLANE DAILY PRN Per Protocol Protocol Miscellaneous Information 1 each 06/18/23 20:13 Potassium Replacement Protocol 1 Each Misc MISCELLANE DAILY PRN Per Protocol Protocol Miscellaneous Information 1 each 06/18/23 20:13 Magnesium Replacement Protocol 1 Each Misc MISCELLANE DAILY PRN Per Protocol Protocol Montelukast Sodium 10 mg 06/09/23 21:00 06/18/23 20:50 Montelukast 10 Mg Tab PO 10 mg HS PAUL Administration Naloxone HCl 0.2 mg 06/18/23 11:07 Naloxone 0.4 Mg/Ml 1 Ml Vial IV Q2M PRN Opioid Reversal Pantoprazole Sodium 40 mg 06/09/23 11:45 06/19/23 06:52 Pantoprazole 40 Mg Tablet PO 40 mg AC-BRKFST PAUL Administration Zinc Sulfate 220 mg 06/09/23 11:45 06/19/23 08:50 Zinc Sulfate 220 Mg Cap PO 220 mg DAILY PAUL Administration Intake and Output 06/18/23 06/19/23 06/19/23 22:59 06:59 14:59 Intake Total 525.0 901.443 133.604 Output Total 565 495 150 Balance -40.0 406.443 -16.396 Intake: IV 225.0 435.0 10 0.9 Normal Saline @ KVO 50 60 10 10mL/hr Cefepime 1 gm In Sodium 25.0 25.0 Chloride 0.9% 50 ml @ 12. 5 mls/hr IVPB Q12HR PAUL Rx#:[id number] Potassium Chloride 20 meq 150 350 In Water For Injection 1 100ml.bag @ 50 mls/hr IVPB Q2H PAUL Rx#: [id number] Intake, IV Titration 300 466.443 123.604 Amount Amiodarone 360 mg In 374.443 Dextrose 5% in Water 200 ml @ 1 MG/MIN 33.333 mls/ hr IV .Q6H PAUL Rx#: [id number] Furosemide 100 mg In 92 Sodium Chloride 0.9% 90 ml @ 10 MG/HR 10 mls/hr IV .Q10H PAUL Rx#: [id number] Heparin Sod,Pork in 0.45% 123.604 NaCl 25,000 unit In 0.45 % NaCl 1 250ml.bag @ 12 UNITS/KG/HR 5.933 mls/hr IV .Q24H PAUL Rx#: [id number] Potassium Chloride 20 meq 300 In Water For Injection 1 100ml.bag @ 50 mls/hr IVPB Q2H PAUL Rx#: [id number] Output: Urine 565 495 150 Other: Voiding Method Indwelling Catheter Indwelling Catheter Weight 51.4 kg 06/19/23 05:31 06/19/23 05:31
--- NOTE | 2023-06-19 10:34 | P.PN ---
Subjective Progress Note Date: 06/19/23 This is a very pleasant 82-year-old female patient with a known history of chronic bronchial asthma, mitral valve prolapse, hypertension, hyperlipidemia, CAD with previous stent, and a lifelong non-smoker. She was just recently discharged from here on the 2023 after being treated for COVID-19 pneum onia. She did received remdesivir, bronchodilators and steroids. She is presented back to the emergency room this morning June 09, 2023 with complaints of increasing shortness of breath cough and congestion that started last evening. She did utilize her 's home oxygen without much improvement. She herself is not on home oxygen. X-ray shows patchy bilateral lung infiltrates compatible with atypical pneumonia possibly ongoing COVID-pneumonia. Suspect some underlying interstitial lung disease as well. White count 16.9. Hemoglobin 10.2. Platelets 265. Sodium 137. Potassium 4.1. Bicarb 29. BUN 21. Creatinine 0.51. proBNP 2430. AST 69. ALT 41. Procalcitonin 0.12. She is seen today in the emergency room in consultation. She is sitting up in the stretcher. Awake and alert in no acute distress. Maintaining O2 saturations in the upper 90s on 2 L/min per nasal cannula. She is afebrile. Hemodynamically stable. The patient is seen today June 10, 2023 in follow-up on the regular medical floor. She is currently sitting up in bed. Awake and alert in no acute distre ss. She still has a loose congested cough. Still dyspneic with conversation. Dyspneic with minimal exertion. She is maintaining O2 saturation in the 90s on 3 L/min per nasal cannula. No IV fluids. Her procalcitonin was 0.12. She is continued on vancomycin and cefepime. Her COVID screen today is positive still. Chest x-ray continues to show patchy bilateral infiltrates stable compared to p revious. She remains on bronchodilators and steroids. White count 18.9. Hemoglobin 9.5. Platelets 239. Sodium 140. Potassium 4.3. Bicarb 23. BUN 26. Creatinine 0.65. Glucose 138. The patient is seen today June 11, 2023 in follow-up on the regular medical floor. She is currently seen at the bedside. Family is in the room. She had a rough night. She was having increasing shortness of breath cough and congestion. She was increased to 5 L/min per nasal cannula. She was initiated on Tessalon Perles. Her procalcitonin was 0.12. She continues on cefepime and vancomycin. She remains on Symbicort, albuterol, Solu-Medrol. Blood cultures revealed no growth. Nasal swab was negative for MRSA. White count 22.3. Hemoglobin 9.7. Platelets 275. Sodium 143. Potassium 4.6. Bicarb 25. BUN 27. Creatinine 0.7. Glucose 156. Remains on diuretics. Progress note dated June 12, 2023. This is an 82-year-old female that I see in the office for asthma. She presented to the hospital, few days ago, with increasing shortness of breath, and had a chest x-ray that was suggestive of pneumonia. The patient recently had coronavirus infection. Currently, the patient's respiratory status is declining, and she is now on Airvo. Airvo settings include 45 L/min, and 55%, with a saturation of 95%. The patient is not receiving any IV fluids. She is getting both cefepime and vancomycin. In addition, the patient is receiving Solu-Medrol, albuterol inhaler, and Symbicort inhaler. She did test positive for coronavirus, but is unclear as to whether or not this is a residual positive test from her recent episode of coronavirus, or she has coronavirus again. We had a long conversation yesterday about CODE STATUS. She would want to be on the mechanical ventilator, if it came to that. No new labs today. Labs from June 10 have been reviewed. This morning's chest x-ray, may be a bit worse. The patient is seen today June 13, 2023 in follow-up on the regular medical floor. She is currently sitting up in a chair at the bedside. Awake and alert in no acute distress. She is breathing a bit easier today compared to yesterday. Her Airvo has been decreased to 45 L and 50% FiO2 with O2 saturation in the low 90s. Blood cultures revealed no growth. Sputum culture revealed no growth. White count 12.2. Hemoglobin 9.0. Platelets 180. Sodium 143. Potassium 4.6. Bicarb 31. BUN 33. Creatinine 0.7. Glucose 175. She is continued on cefepime. Remains on bronchodilators, steroids, vitamin supplements. Remains on oral diuretics. Progress note dated June 14, 2023. 82-year-old female with a history of asthma, and aortic stenosis. The patient was admitted with a diagnosis of possible pneumonia. The patient had a recent episode of coronavirus infection, and did test positive on this admission again for coronavirus. Today she is sitting in a chair next to her hospital bed. She has been weaned off Airvo, down to high flow nasal cannula at 7 L. She is receiving cefepime. She does feel better. Current labs include a white count of 13.2, hemoglobin 8.7, hematocrit 29.2, and a platelet count of 171,000. The patient is seen today June 15, 2023 in follow-up on the regular medical floor. She is currently sitting up in a chair at the bedside. Awake and alert in no acute distress. Breathing a bit easier today compared to yesterday. She is currently on 7 L high flow nasal cannula maintaining O2 saturation in the low 90s. She is continued on cefepime. Blood cultures revealed no growth. Sputum culture reveals no growth. Glucose 246. She remains on bronchodilators and steroids. Remains on oral diuretics. Lovenox for DVT prophylaxis. Continued on multivitamins. The patient is seen today June 16, 2023 in follow-up on the regular medical floo r. She is currently sitting up in a chair at the bedside. Awake and alert. She is back on Airvo high flow oxygen at 40 L and 50% FiO2. She has been very slow to progress. Her chest x-ray shows worsening bilateral infiltrates. She remains on Symbicort, albuterol, Singulair, Solu-Medrol. Remains on antibiotics in the form of cefepime. Continued on vitamin supplements. Remains on oral diuretics. Doppler of the lower extremities are negative for DVT. Blood cultures revealed no growth. Sputum culture revealed no growth. White count 16.4. Hemoglobin 8.7. Platelets 149. Sodium 145. Potassium 4.4. Bicarb 36. BUN 35. Creatinine 0.6. Glucose 178. AST 57. ALT 58. Lovenox for DVT prophylaxis. On today's evaluation of 06/17/2023, I am seeing the patient for a follow-up. The patient remains hypoxic with a chest x-ray showing diffuse bilateral pulmonary filtrates consistent with either cardiogenic versus noncardiogenic pulmonary edema. The patient diffuse airspace pulmonary filtrates throughout the lung stoll bilaterally. Noted the patient was hospitalized approximate 2 to 3 weeks ago for COVID-19 related pneumonia and CHF and the patient was treated and the chest x-ray prior to her discharge showed complete clearing. She is also noted to have mitral stenosis. For now, the patient is on high flow oxygen utilizing Airvo system with a flow of 40 L and FiO2 of 60%. The Doppler of the lower extremity was done and showed no evidence of any DVT and this was done on 06/16/2023. The patient is afebrile. The patient is hemodynamically stable. The patient remains on bronchodilators and the patient is currently on Ventolin HFA 4 times a day, Symbicort as maintenance the patient is empirically covered with IV cefepime and she is also on IV Solu-Medrol 60 mg every 6 hours. Suggested starting the patient on Lasix drip to optimize her volume status. Her most recent echocardiogram that was done on 05/27/2023 showed a preserved LV function. Nevertheless, the patient had moderate thickening and calcification of the anterior and the posterior mitral valve leaflet and the mitral valve was severely stenotic. There was mild aortic stenosis in addition. Right vent ricular systolic pressure was diminished to be around 58. There is severe LA dilatation. On today's evaluation of 06/17/2022, the patient got transferred to the intensive care unit. I attended on this patient as the patient developed shortness of breath and acute tachycardia and the patient was found to be in new onset atrial fibrillation with rapid ventricular response. Heart rate was around 170. The patient was still maintaining her home blood pressure. She was transferred to the ICU and the patient was started on amiodarone initially a bolus of 150 mg was given. During this time, the patient developed some hypotension with a systolic blood pressure in the low 80s. Based on that, cardiology was involved and the patient was immediately cardioverted. The patient underwent DC cardiov ersion that was successful and the patient is currently back in normal sinus rhythm. Amiodarone is running at 1 mg/min at this point in time. At the same time, the patient remains on Lasix drip at 5 mg an hour. The fluid balance has been negative at least 3 L over the past 24 hours. Chest x-ray still showing diffuse bilateral pulmonary filtrates consistent with pulmonary edema. Noncardiogenic cause of pulm edema is also considered although I favor valvular heart disease with secondary atrial fibrillation and heart failure. The patient has severe mitral stenosis. WBC count is at 22 with a hemoglobin 9.1 and a platelet count of 180. Potassium level is at 2.7 needs to be replaced with a BUN of 50 and a creatinine of 0.9 and a sodium levels at 137. Blood sugars also elevated this morning at 363. The patient was also started on IV heparin. During the process, the patient remained alert and awake. She feels less short of breath post cardioversion. Family has been updated periodically on her condition. At this point in time, the patient is on metoprolol 100 mg p.o. 3 times daily. The patient is also on amiodarone drip and IV heparin. The patient is post cardioversion. The patient is receiving IV cefepime and IV Solu-Medrol. On today's evaluation of 06/19/2023, I am seeing the patient for a follow-up. The patient is sitting up on the chair and the patient continues to be on high flow oxygen and currently she is on 35 L with an FiO2 of 35%. Oxygenation is improved and the patient is gradually being weaned off on the high flow and the patient will be attempted on nasal cannula. Chest x-ray still showing diffuse bilateral pulmonary filtrates consistent with pulmonary edema. The patient remains on amiodarone drip and the cardiac rhythm has remained sinus throughout the day the patient remains on IV heparin. The patient is post cardioversion. At the same time, the patient is being diuresed with IV Lasix. The patient remains on Lasix drip at 10 mg an hour. Fluid balance is -732 cc and overall fluid balance is -4 L over the past 24 hours. WBC count at 17.7, hemoglobin of 8.8, potassium level is at 4.9 and has been replaced. Sodium is at 137 with a B UN of 47 and a creatinine of 0.7. Remains on IV cefepime. Remains on IV Solu- Medrol. Remains on rest of the medications. Discussed the case with cardiology. Will transition this patient to warfarin for valvular A-fib. She is awake and alert. She denies having any specific complaints. She reports improvement in her overall respiratory status. Objective - Vital Signs Vital signs: Vital Signs Temp 98.0 F 06/19/23 08:00 Pulse 70 06/19/23 09:00 Resp 27 H 06/19/23 09:00 BP 110/49 06/19/23 09:00 Pulse Ox 92 L 06/19/23 09:00 FiO2 35 06/19/23 09:00 Intake & Output 06/18/23 06/19/23 06/19/23 18:59 06:59 18:59 Intake Total 227.854 0933.443 193.604 Output Total 1505 790 245 Balance -1039.167 306.443 -51.396 Weight 51.4 kg Intake: IV 70 630.0 70 0.9 Normal Saline @ KVO 70 80 20 10mL/hr Cefepime 1 gm In Sodium 50.0 50 Chloride 0.9% 50 ml @ 12. 5 mls/hr IVPB Q12HR PAUL Rx#:[id number] Potassium Chloride 20 meq 500 In Water For Injection 1 100ml.bag @ 50 mls/hr IVPB Q2H PAUL Rx#: [id number] Intake, IV Titration 395.833 466.443 123.604 Amount Amiodarone 360 mg In 374.443 Dextrose 5% in Water 200 ml @ 1 MG/MIN 33.333 mls/ hr IV .Q6H PAUL Rx#: [id number] Furosemide 100 mg In 95.833 92 Sodium Chloride 0.9% 90 ml @ 10 MG/HR 10 mls/hr IV .Q10H PAUL Rx#: [id number] Heparin Sod,Pork in 0.45% 123.604 NaCl 25,000 unit In 0.45 % NaCl 1 250ml.bag @ 12 UNITS/KG/HR 5.933 mls/hr IV .Q24H PAUL Rx#: [id number] Potassium Chloride 20 meq 300 In Water For Injection 1 100ml.bag @ 50 mls/hr IVPB Q2H PAUL Rx#: [id number] Output: Urine 1505 790 245 Other: Voiding Method Indwelling Catheter Indwelling Catheter Indwelling Catheter - Exam GENERAL EXAM: Alert, 82-year-old white female appearing stated age, comfortable in no apparent distress. Patient is currently on Airvo. The patient is on 35 L with an FiO2 of 35%. HEAD: Normocephalic and atraumatic EYES: Normal reaction of pupils, equal size. NOSE: Clear with pink turbinates. THROAT: No erythema or exudates. NECK: No masses, no JVD. CHEST: No chest wall deformity. LUNGS: Equal air entry with diffuse rhonchi and crackles. no conversational dyspnea or accessory muscle use while at rest CVS: S1 and S2 normal with grade 4 diastolic/systolic murmur, regular rhythm. No other extra heart sounds ABDOMEN: No hepatosplenomegaly, active bowel sounds, no guarding or rigidity. SPINE: No scoliosis or deformity SKIN: No rashes CENTRAL NERVOUS SYSTEM: No focal deficits, tone is normal in all 4 extremities. EXTREMITIES: There is no peripheral edema, clubbing, or cyanosis. Peripheral pulses are intact. - Labs CBC & Chem 7: 06/19/23 05:31 06/19/23 05:31 Labs: Abnormal Lab Results - Last 24 Hours (Table) 06/18/23 06/18/23 06/18/23 Range/Units 10:58 10:58 10:58 WBC 22.1 H (3.8-10.6) k/uL RBC 2.85 L (3.80-5.40) m/uL Hgb 9.1 L (11.4-16.0) gm/dL Hct 28.5 L (34.0-46.0) % RDW 15.6 H (11.5-15.5) % Plt Count (150-450) k/uL Neutrophils # 21.1 H (1.3-7.7) k/uL Lymphocytes # 0.3 L (1.0-4.8) k/uL PT 12.7 H (10.0-12.5) sec INR 1.2 H (<1.2) APTT (22.0-30.0) sec Potassium 2.7 L* (3.5-5.1) mmol/L Chloride 87 L (98-107) mmol/L Carbon Dioxide 38 H (22-30) mmol/L BUN 50 H (7-17) mg/dL Glucose 355 H (74-99) mg/dL POC Glucose (mg/dL) (70-110) mg/dL Calcium 8.0 L (8.4-10.2) mg/dL 06/18/23 06/18/23 06/18/23 Range/Units 11:36 15:52 18:07 WBC (3.8-10.6) k/uL RBC (3.80-5.40) m/uL Hgb (11.4-16.0) gm/dL Hct (34.0-46.0) % RDW (11.5-15.5) % Plt Count (150-450) k/uL Neutrophils # (1.3-7.7) k/uL Lymphocytes # (1.0-4.8) k/uL PT (10.0-12.5) sec INR (<1.2) APTT 55.0 H (22.0-30.0) sec Potassium (3.5-5.1) mmol/L Chloride (98-107) mmol/L Carbon Dioxide (22-30) mmol/L BUN (7-17) mg/dL Glucose (74-99) mg/dL POC Glucose (mg/dL) 363 H 223 H (70-110) mg/dL Calcium (8.4-10.2) mg/dL 06/18/23 06/18/23 06/18/23 Range/Units 20:39 21:16 21:16 WBC 16.1 H (3.8-10.6) k/uL RBC 2.71 L (3.80-5.40) m/uL Hgb 8.4 L (11.4-16.0) gm/dL Hct 27.1 L (34.0-46.0) % RDW (11.5-15.5) % Plt Count 143 L (150-450) k/uL Neutrophils # (1.3-7.7) k/uL Lymphocytes # (1.0-4.8) k/uL PT (10.0-12.5) sec INR (<1.2) APTT (22.0-30.0) sec Potassium 3.0 L (3.5-5.1) mmol/L Chloride (98-107) mmol/L Carbon Dioxide (22-30) mmol/L BUN (7-17) mg/dL Glucose (74-99) mg/dL POC Glucose (mg/dL) 155 H (70-110) mg/dL Calcium (8.4-10.2) mg/dL 06/19/23 06/19/23 06/19/23 Range/Units 05:31 05:31 05:31 WBC 17.7 H (3.8-10.6) k/uL RBC 2.87 L (3.80-5.40) m/uL Hgb 8.8 L (11.4-16.0) gm/dL Hct 28.0 L (34.0-46.0) % RDW 16.0 H (11.5-15.5) % Plt Count 143 L (150-450) k/uL Neutrophils # 16.8 H (1.3-7.7) k/uL Lymphocytes # 0.2 L (1.0-4.8) k/uL PT (10.0-12.5) sec INR (<1.2) APTT 42.2 H (22.0-30.0) sec Potassium (3.5-5.1) mmol/L Chloride 95 L (98-107) mmol/L Carbon Dioxide 35 H (22-30) mmol/L BUN 47 H (7-17) mg/dL Glucose 131 H (74-99) mg/dL POC Glucose (mg/dL) (70-110) mg/dL Calcium (8.4-10.2) mg/dL 06/19/23 Range/Units 06:45 WBC (3.8-10.6) k/uL RBC (3.80-5.40) m/uL Hgb (11.4-16.0) gm/dL Hct (34.0-46.0) % RDW (11.5-15.5) % Plt Count (150-450) k/uL Neutrophils # (1.3-7.7) k/uL Lymphocytes # (1.0-4.8) k/uL PT (10.0-12.5) sec INR (<1.2) APTT (22.0-30.0) sec Potassium (3.5-5.1) mmol/L Chloride (98-107) mmol/L Carbon Dioxide (22-30) mmol/L BUN (7-17) mg/dL Glucose (74-99) mg/dL POC Glucose (mg/dL) 141 H (70-110) mg/dL Calcium (8.4-10.2) mg/dL Assessment and Plan Plan: Acute hypoxic respiratory failure most likely secondary to pulmonary edema related to her valvular heart disease. The patient has severe mitral stenosis, mild aortic stenosis in addition to severe pulm hypertension. LV function is pr eserved. Other less likely possibilities include hospital-acquired pneumonia versus ongoing/worsening COVID-19 pneumonia. The patient developed diffuse bilateral pulmonary filtrates with acute hypoxic respiratory failure the patient is currently on air Vo. She is also covered with cefepime and IV Solu-Medrol. The patient was started Lasix drip at 10 mg an hour. The patient is produced at least 4 L of fluid balance over the past 28 to 48 hours. Chest x-ray shows showing stable bilateral pulmonary infiltrates, essentially unchanged compared to yesterday. Clinically however the patient is improved. The patient FiO2 has been dropped down to 35% with a high flow oxygen at 35 L utilizing the Airvo system. The patient is overall respiratory status is much more comfortable. Cardiac rhythm is sinus on amiodarone drip. New onset atrial fibrillation with RVR. The patient became hemodynamically unstable/hypotensive and the patient received cardioversion. Currently back to normal sinus rhythm. Currently loaded with amiodarone and amiodarone as a maintenance. This will be switched to oral amiodarone. The patient is also on metoprolol 50 mg p.o. twice a day. Cardiac rhythm is sinus. Patient is also on IV heparin to be transition to oral anticoagulants. Acute exacerbation of mild intermittent chronic bronchial asthma Recent discharge on May 31, 2023 for COVID-19 pneumonia, treated with remdesivir. Still testing positive. Noted the patient has complete clearing of the bilateral pulmonary filtrates on previous hospitalization and the chest x- ray was initially clear prior to her discharge. History of coronary artery disease with previous PCI/stent x3 History of hyperlipidemia History of hypertension Moderate to severe mitral calcification and moderate to severe mitral stenosis and mild aortic regurgitation and stenosis. LV function is preserved and the patient has an ejection fraction of 60 to 65%. Pulmonary hypertension WHO class II Rheumatoid arthritis History of hypothyroidism Lifelong non-smoker Plan: The patient is currently in the intensive care unit for close monitoring. Will monitor oxygenation Keep the patient on Airvo high flow oxygen, transition this patient to nasal cannula if possible as long as the saturation remained above 90% Continue IV heparin, based on her valvular heart disease the patient can be transition to oral warfarin. She does have valvular atrial fibrillation. Continue amiodarone and switch this patient to 400 mg p.o. twice a day Continue metoprolol Continue Lasix drip at 10 mg an hour Replace potassium Titrate the FiO2 as tolerated May need BiPAP support Continue IV cefepime Changed to Solu-Medrol to 40 mg every 12 hours Dopplers revealed no DVT Condition is guarded We will continue to follow Case was discussed with the family at the bedside. Repeat chest x-ray in the morning and will continue to follow.
[2023-06-19 11:49] LABS: Glucose,Whole Blood 168 mg/dL (70-110)
--- NOTE | 2023-06-19 12:26 | P.EPPROC ---
- EP Procedure Note Electrophysiology Procedure Note: Diagnosis Symptomatic A-fib with RVR associated with hypotension Moderate to severe mitral stenosis Recent COVID pneumonitis Details The patient was started on IV amiodarone bolus 300 mg as well as beta-blockers as well as IV heparin Her rates were not well-controlled and she was hypotensive Anesthesia was called Under conscious sedation electrical cardioversion was performed successfully to sinus rhythm In sinus rhythm her blood pressure normalized transition Plan Continue IV amiodarone and transition to oral amiodarone after 24 hours Continue IV heparin and start oral Coumadin since she has severe mitral stenosis Continue beta-blockers
--- NOTE | 2023-06-19 14:19 | P.PN ---
Subjective 82-year-old female, history of hypertension, hyperlipidemia, mitral valve prolapse, hypothyroidism, rheumatoid arthritis, CHF present to the emergency department with difficulty breathing. Onset was yesterday. Patient has had a cough for over a week. Patient has occasional yellow sputum. Patient did have COVID-19 pneumonia couple weeks ago and was in the hospital and discharged home. Patient is unaware of any fevers at home. Patient has chronic interstitial lung disease. She was just recently discharged from here on the 2023 after being treated for COVID-19 pneumonia. She did received remdesivir, bronchodilators and steroids. She is presented back to the emergency room this morning June 09, 2023 with complaints of increasing shortness of breath cough and congestion that started last evening. She did utilize her 's home oxygen without much improvement. She herself is not on home oxygen. X-ray shows patchy bilateral lung infiltrates compatible with atypical pneumonia possibly ongoing COVID-pneumonia. Suspect some underlying interstitial lung disease as well. White count 16.9. Hemoglobin 10.2. Platelets 265. Sodium 137. Potassium 4.1. Bicarb 29. BUN 21. Creatinine 0.51. proBNP 2430. AST 69. ALT 41. Procalcitonin 0.12. 06/10/2023 Patient awake and alert She has more shortness of breath today improved with higher oxygen from 2 up to 3 L/min Repeat chest x-ray showing patchy bilateral infiltrates, stable exam. No fever today but hemodynamically stable BMP is unremarkable Patient remains on IV cefepime, IV vancomycin and IV Solu-Medrol 60 mg and normal saline 75 mL/h 06/11/2023 Patient breathing is worse today, she is requiring nonrebreather 60 L/min with FiO2 of 90% and also she is tachypneic and anxious, As per staff patient and family declining intubation and if she deteriorates she might need to be placed on BiPAP WBC is 22.3, hemoglobin stable 9.7 She is currently covered with IV cefepime and IV vancomycin and IV Solu-Medrol. IV fluids was discontinued 06/12/2023 patient awake and alert, in mild distress because of her tachypnea but is improving Oxygen requirement down to 45 L/m No other new complaints. She remains on IV Solu-Medrol 60 mg in the broad-spectrum antibiotics cefepime and IV vancomycin 06/13/2023 Patient sitting up in chair, her breathing rate is similar to yesterday She is still on high flow nasal cannula at 45 L/min She remains on IV cefepime and Vanco vancomycin, she is on IV Solu-Medrol. No IV fluid Daughter at bedside and all questions answered and they are agreeable with the plan I am resuming the care of the patient on 06/18/2023 Patient was looking tired today, awake and alert but she was short of breath Although oxygen saturation show improvement down to 40 L/min compared to yesterday 45 L/min. After rounding I got a call from the nurse patient is becoming tachycardic, EKG showing A-fib and RVR. Heart rate went up to 174 and patient was hypotensive therefore we transferred the patient to the intensive care unit and amiodarone bolus and drip was started. Cardiology team evaluated the patient and patient is status post cardioversion which she changed back to sinus rhythm. Hypokalemia 2.7 been replaced. Also patient started on metoprolol 100 mg 3 times daily and IV heparin drip. Currently patient looks more comfortable and heart rate and blood pressure improved and stabilized, heart rate is in 65. Chest x-ray repeated today showing bilateral infiltrates slightly better compared to last chest x-ray, consistent with pulmonary edema with proBNP is elevated to 430. While pro- Calcitonin is low or mildly elevated 0.12. Patient also kept on IV Solu-Medrol 40 mg instead of 60 mg yesterday. Is given twice daily. Glucose is elevated and patient started on Levemir 10 units daily review of systems CONSTITUTIONAL: No fever, no malaise, no fatigue. HEENT: No recent visual problems or hearing problems. Denied any sore throat. GASTROINTESTINAL: No diarrhea, no nausea, no vomiting, no abdominal pain. Normoactive bowel sounds. NEUROLOGICAL: No headaches, no weakness, no numbness. HEMATOLOGICAL: Denies any bleeding or petechiae. GENITOURINARY: Denies any burning micturition, frequency, or urgency. MUSCULOSKELETAL/RHEUMATOLOGICAL: Denies any joint pain, swelling, or any muscle pain. ENDOCRINE: Denies any polyuria or polydipsia. Active Medications Generic Name Dose Route Start Last Admin Trade Name Freq PRN Reason Stop Dose Admin Acetaminophen 650 mg 06/10/23 12:38 06/17/23 21:12 Acetaminophen Tab 325 Mg Tab PO 650 mg Q6HR PRN Administration Fever and/ or Pain Albuterol Sulfate 2 puff 06/10/23 13:00 06/18/23 20:10 Albuterol Hfa Inhaler INHALATION 2 puff RT-QID PAUL Administration Albuterol Sulfate 2 puff 06/10/23 12:46 Albuterol Hfa Inhaler INHALATION RT-Q4H PRN shortness of breath Alprazolam 0.25 mg 06/09/23 11:33 06/18/23 09:30 Alprazolam 0.25 Mg Tab PO 0.25 mg Q8HR PRN Administration Anxiety Ascorbic Acid 1,000 mg 06/10/23 09:00 06/18/23 10:23 Ascorbic Acid 500 Mg Tab PO Not Given DAILY [facility] Aspirin 81 mg 06/10/23 07:30 06/18/23 07:01 Aspirin 81 Mg PO 81 mg AC-BRKFST PAUL Administration Atorvastatin Calcium 80 mg 06/09/23 11:45 06/18/23 10:24 Atorvastatin 80 Mg Tab PO Not Given DAILY [facility] Benzonatate 200 mg 06/11/23 07:00 06/14/23 12:52 Benzonatate 100 Mg Cap PO 200 mg TID PRN Administration Cough Budesonide/Formoterol Fumarate 2 puff 06/10/23 20:00 06/18/23 20:10 Symbicort 160-4.5 Mcg Inhaler INHALATION 2 puff RT-BID PAUL Administration Calcium Carbonate/Glycine 500 mg 06/10/23 09:00 06/18/23 10:24 Calcium Carbonate 500 Mg Chewable PO Not Given DAILY [facility] Cholecalciferol 50 mcg 06/10/23 09:00 06/18/23 09:30 Cholecalciferol 25 Mcg (1000 Iu) Tablet PO 50 mcg DAILY PAUL Administration Dapagliflozin 5 mg 06/10/23 09:00 06/18/23 09:29 Dapagliflozin Propanediol 5 Mg Tablet PO 5 mg DAILY PAUL Administration Dextrose/Water 25 ml 06/15/23 16:06 Dextrose 50% Syringe 50 Ml IVP PER PROTOCOL PRN Hypoglycemia Protocol Dextrose/Water 50 ml 06/15/23 16:06 Dextrose 50% Syringe 50 Ml IVP PER PROTOCOL PRN Hypoglycemia Protocol Heparin Sodium (Porcine) 0 unit 06/18/23 10:13 Heparin Sodium 1,000 Un/Ml (10ml Vl) IV PER PROTOCOL PRN Low PTT Protocol Cefepime HCl 1 gm/ Sodium 50 mls @ 12.5 mls/hr 06/09/23 21:00 06/18/23 11:37 Chloride IVPB 12.5 mls/hr Q12HR [facility] Administration Protocol Furosemide 100 mg/ Sodium 100 mls @ 10 mls/hr 06/17/23 12:45 06/18/23 11:36 Chloride IV 5 mg/hr .Q10H PAUL 5 mls/hr Administration 10 MG/HR Heparin Sodium/Sodium Chloride 250 mls @ 5.933 mls/hr 06/18/23 10:15 06/18/23 10:57 25,000 unit/ Sodium Chloride IV 12 units/kg/hr .Q24H PAUL 5.933 mls/hr Administration Protocol 12 UNITS/KG/HR Amiodarone HCl 360 mg/ 200 mls @ 33.333 mls/hr 06/18/23 16:45 06/18/23 18:21 Dextrose/Water IV 1 mg/min .Q6H PAUL 33.333 mls/hr Administration Protocol 1 MG/MIN Insulin Aspart 0 unit 06/15/23 17:30 06/18/23 18:09 Insulin Aspart (Novolog) 100 Unit/Ml Vial SQ 2 unit ACHS [facility] Administration Protocol Insulin Detemir 10 unit 06/18/23 13:30 06/18/23 14:20 Insulin Detemir (Levemir) 100 Unit/Ml Syr SQ 10 unit DAILY@0700 [facility] Administration Levothyroxine Sodium 56 mcg 06/09/23 11:45 06/16/23 06:24 Levothyroxine 112 Mcg Tab PO 56 mcg SuSa@0630 [facility] Administration Levothyroxine Sodium 112 mcg 06/10/23 06:30 06/18/23 07:01 Levothyroxine 112 Mcg Tab PO 112 mcg MoTuWeThFr@0630 [facility] Administration Magnesium Oxide 400 mg 06/09/23 11:45 06/18/23 10:24 Magnesium Oxide 400 Mg Tab PO Not Given DAILY [facility] Methylprednisolone Sodium Succinate 40 mg 06/18/23 21:00 Methylprednisolone Sod Succi 40 Mg/Ml 1 Ml Vial IV Q12HR [facility] Metoprolol Tartrate 100 mg 06/18/23 16:00 06/18/23 18:19 Metoprolol Tartrate 50 Mg Tab PO Not Given TID [facility] Miscellaneous Information 1 each 06/09/23 09:40 Pneumonia Protocol Utilized 1 Each Misc PO ONCE PRN Per Protocol Miscellaneous Information 1 each 06/18/23 11:57 Potassium Replacement Protocol 1 Each Misc MISCELLANE DAILY PRN Per Protocol Protocol Montelukast Sodium 10 mg 06/09/23 21:00 06/17/23 21:12 Montelukast 10 Mg Tab PO 10 mg HS PAUL Administration Naloxone HCl 0.2 mg 06/18/23 11:07 Naloxone 0.4 Mg/Ml 1 Ml Vial IV Q2M PRN Opioid Reversal Pantoprazole Sodium 40 mg 06/09/23 11:45 06/18/23 07:01 Pantoprazole 40 Mg Tablet PO 40 mg AC-BRKFST PAUL Administration Zinc Sulfate 220 mg 06/09/23 11:45 06/18/23 10:24 Zinc Sulfate 220 Mg Cap PO Not Given DAILY [facility] Objective - Vital Signs Vital signs: Vital Signs Temp 97.7 F 06/19/23 12:00 Pulse 64 06/19/23 12:00 Resp 28 H 06/19/23 12:00 BP 109/47 06/19/23 12:00 Pulse Ox 89 L 06/19/23 12:00 FiO2 35 06/19/23 09:00 Intake & Output 06/18/23 06/19/23 06/19/23 18:59 06:59 18:59 Intake Total 100.031 1852.443 223.604 Output Total 1505 790 940 Balance -1039.167 306.443 -716.396 Weight 51.4 kg Intake: IV 70 630.0 100 0.9 Normal Saline @ KVO 70 80 50 10mL/hr Cefepime 1 gm In Sodium 50.0 50 Chloride 0.9% 50 ml @ 12. 5 mls/hr IVPB Q12HR [facility] Rx#:[id number] Potassium Chloride 20 meq 500 In Water For Injection 1 100ml.bag @ 50 mls/hr IVPB Q2H PAUL Rx#: [id number] Intake, IV Titration 395.833 466.443 123.604 Amount Amiodarone 360 mg In 374.443 Dextrose 5% in Water 200 ml @ 1 MG/MIN 33.333 mls/ hr IV .Q6H PAUL Rx#: [id number] Furosemide 100 mg In 95.833 92 Sodium Chloride 0.9% 90 ml @ 10 MG/HR 10 mls/hr IV .Q10H PAUL Rx#: [id number] Heparin Sod,Pork in 0.45% 123.604 NaCl 25,000 unit In 0.45 % NaCl 1 250ml.bag @ 12 UNITS/KG/HR 5.933 mls/hr IV .Q24H PAUL Rx#: [id number] Potassium Chloride 20 meq 300 In Water For Injection 1 100ml.bag @ 50 mls/hr IVPB Q2H PAUL Rx#: [id number] Output: Urine 1505 790 940 Other: Voiding Method Indwelling Catheter Indwelling Catheter Indwelling Catheter - Exam GENERAL: The patient is alert and oriented x3, not in any acute distress. Well developed, well nourished. HEENT: Pupils are round and equally reacting to light. EOMI. No scleral icterus. No conjunctival pallor. Normocephalic, atraumatic. No pharyngeal erythema. No thyromegaly. CARDIOVASCULAR: S1 and S2 present. No murmurs, rubs, or gallops. -PULMONARY: Chest is clear to auscultation, no wheezing , bilateral crackles. T achypneic, mild ABDOMEN: Soft, nontender, nondistended, normoactive bowel sounds. No palpable organomegaly. MUSCULOSKELETAL: No joint swelling or deformity. EXTREMITIES: No cyanosis, clubbing, or pedal edema. NEUROLOGICAL: Gross neurological examination did not reveal any focal deficits. SKIN: No rashes. no petechiae. - Labs CBC & Chem 7: 06/19/23 05:31 06/19/23 05:31 Labs: Abnormal Lab Results - Last 24 Hours (Table) 06/18/23 06/18/23 06/18/23 Range/Units 15:52 18:07 20:39 WBC (3.8-10.6) k/uL RBC (3.80-5.40) m/uL Hgb (11.4-16.0) gm/dL Hct (34.0-46.0) % RDW (11.5-15.5) % Plt Count (150-450) k/uL Neutrophils # (1.3-7.7) k/uL Lymphocytes # (1.0-4.8) k/uL APTT 55.0 H (22.0-30.0) sec Potassium (3.5-5.1) mmol/L Chloride (98-107) mmol/L Carbon Dioxide (22-30) mmol/L BUN (7-17) mg/dL Glucose (74-99) mg/dL POC Glucose (mg/dL) 223 H 155 H (70-110) mg/dL 06/18/23 06/18/23 06/19/23 Range/Units 21:16 21:16 05:31 WBC 16.1 H 17.7 H (3.8-10.6) k/uL RBC 2.71 L 2.87 L (3.80-5.40) m/uL Hgb 8.4 L 8.8 L (11.4-16.0) gm/dL Hct 27.1 L 28.0 L (34.0-46.0) % RDW 16.0 H (11.5-15.5) % Plt Count 143 L 143 L (150-450) k/uL Neutrophils # 16.8 H (1.3-7.7) k/uL Lymphocytes # 0.2 L (1.0-4.8) k/uL APTT (22.0-30.0) sec Potassium 3.0 L (3.5-5.1) mmol/L Chloride (98-107) mmol/L Carbon Dioxide (22-30) mmol/L BUN (7-17) mg/dL Glucose (74-99) mg/dL POC Glucose (mg/dL) (70-110) mg/dL 06/19/23 06/19/23 06/19/23 Range/Units 05:31 05:31 06:45 WBC (3.8-10.6) k/uL RBC (3.80-5.40) m/uL Hgb (11.4-16.0) gm/dL Hct (34.0-46.0) % RDW (11.5-15.5) % Plt Count (150-450) k/uL Neutrophils # (1.3-7.7) k/uL Lymphocytes # (1.0-4.8) k/uL APTT 42.2 H (22.0-30.0) sec Potassium (3.5-5.1) mmol/L Chloride 95 L (98-107) mmol/L Carbon Dioxide 35 H (22-30) mmol/L BUN 47 H (7-17) mg/dL Glucose 131 H (74-99) mg/dL POC Glucose (mg/dL) 141 H (70-110) mg/dL 06/19/23 Range/Units 11:47 WBC (3.8-10.6) k/uL RBC (3.80-5.40) m/uL Hgb (11.4-16.0) gm/dL Hct (34.0-46.0) % RDW (11.5-15.5) % Plt Count (150-450) k/uL Neutrophils # (1.3-7.7) k/uL Lymphocytes # (1.0-4.8) k/uL APTT (22.0-30.0) sec Potassium (3.5-5.1) mmol/L Chloride (98-107) mmol/L Carbon Dioxide (22-30) mmol/L BUN (7-17) mg/dL Glucose (74-99) mg/dL POC Glucose (mg/dL) 168 H (70-110) mg/dL Assessment and Plan Assessment: 1. Acute hypoxic respiratory failure; multifactorial; hospital-acquired pneumonia versus --Increased oxygen requirement to high flow nasal cannula acute diastolic heart failure with ejection fraction 60 to 65% --Lasix drip 2. Acute exacerbation of asthma -IV Solu-Medrol 40 mg every 12 hours; DuoNeb nebulizer treatments 4 times daily and as needed 3. Mild LETICIA; hold off on IV fluid therapy given worsening chest congestion; we will monitor renal function electrolytes closely; avoid nephrotoxins and hypot ension 4. Hospital-acquired pneumonia;-- Pulmonary on board and patient has been placed on IV cefepime and vancomycin 5. New onset A-fib and RVR, s/p cardioversion Currently on metoprolol 100 mg and amiodarone. Also patient was started on IV heparin Which is switched to warfarin pharmacy to dose 6. Hypertension; verapamil SR 120 mg daily; metoprolol 100 mg 3 times daily 7. Hyperlipidemia; Lipitor 40 mg daily 8. Hypothyroidism; levothyroxine 112 mcg Saturday through Saturday and 56 mcg Saturday and Saturday 9. Coronary artery disease/CHF; status post PCI/stent x 3; patient remains on aspirin, Lipitor, Imdur -- Lasix 40 mg daily and Farxiga 5 mg daily 10. Mitral stenosis; patient has moderate to severe mitral calcifications causing moderate to severe mitral stenosis and mild aortic regurgitation and stenosis -- Last echocardiogram reveals an EF of 60 to 65% DVT prophylaxis; SCDs/subcu heparin CODE STATUS; full code
[2023-06-19 16:43] LABS: Glucose,Whole Blood 225 mg/dL (70-110)
[2023-06-19] MEDS: WARFARIN 5 MG TAB PO ONE (17:53)
[2023-06-19 20:09] LABS: Glucose,Whole Blood 286 mg/dL (70-110)
[2023-06-19 20:30] LABS: Glucose,Whole Blood 256 mg/dL (70-110)
[2023-06-20 06:11] LABS: Glucose,Whole Blood 219 mg/dL (70-110)
[2023-06-20 06:33] LABS: Anisocytosis Slight; Basophils % (A) 0 %; Eosinophils # (A) 0.1 k/uL (0-0.7); Eosinophils % (A) 1 %; Hypochromasia Slight; Lymphocytes # (A) 0.2 k/uL (1.0-4.8); Lymphocytes % (A) 2 %; MCH 30.8 pg (25.0-35.0); MCHC 30.9 g/dL (31.0-37.0); MCV 99.6 fL (80.0-100.0); Macrocytosis Slight; Mean Platelet Volume 8.8; Monocytes # (A) 0.4 k/uL (0-1.0); Monocytes % (A) 3 %; Neutrophils # (A) 12.8 k/uL (1.3-7.7); Neutrophils % (A) 95 %; Platelet Count 170 k/uL (150-450); RBC 2.91 m/uL (3.80-5.40); WBC 13.6 k/uL (3.8-10.6)
[2023-06-20 06:36] LABS: African American GFR (CKD) >90 (>60 ml/min/1.73 sqM); Anion Gap 7 mmol/L; Blood Urea Nitrogen 57 mg/dL (7-17); Calcium 8.8 mg/dL (8.4-10.2); Chloride 90 mmol/L (98-107); Glucose 156 mg/dL (74-99); Non-African American GFR(CKD) 83 (>60 ml/min/1.73 sqM); Potassium 4.2 mmol/L (3.5-5.1); Sodium 137 mmol/L (137-145)
[2023-06-20 06:38] LABS: INR 1.3 (<1.2); Prothrombin Time 13.4 sec (10.0-12.5)
[2023-06-20 06:44] LABS: Carbon Dioxide 40 mmol/L (22-30)
--- NOTE | 2023-06-20 08:07 | XR ---
EXAMINATION TYPE: XR chest 1V portable DATE OF EXAM: 06/20/2023 HISTORY: Shortness of breath. COMPARISON: 06/19/2023 TECHNIQUE: Single view of the chest is submitted. FINDINGS: Demonstrated are scattered senescent parenchymal change. Diffuse airspace infiltrates persist and may be slightly improved in the interval. The heart is stable. Hilar and mediastinal structures are within normal limits. Degenerative changes are seen of the dorsal spine. IMPRESSION: 1. Slight interval improvement in diffuse airspace infiltrates suggesting superimposed pulmonary derek ma on pneumonia. Correlate clinically and progress studies are recommended
[2023-06-20] MEDS: DOCUSATE 100 MG CAP PO SCH (08:31)
--- NOTE | 2023-06-20 09:33 | P.PN ---
Subjective Progress Note Date: 06/20/23 The patient is an 82-year-old female who follows in the office with Dr. Jain. The patient is currently admitted and being treated for pneumonia after recent COVID-19 infection. Shortly after her admission she developed A- fib with RVR and became hemodynamically unstable. She underwent cardioversion a nd has since remained in sinus rhythm on amiodarone. No recurrence in her A-fib over the last 24 hours. Patient was interviewed and examined sitting up in the recliner chair. She states she still has shortness of breath and is currently on high flow nasal cannula. We discussed the importance of pulmonary hygiene. She denies any chest pain or chest pressure. No dizziness or lightheadedness upon standing. GENERAL: Well-appearing, well-nourished and in no acute distress. NECK: Supple without JVD or thyromegaly. LUNGS: Breath sounds diminished to auscultation bilaterally. Respiration equal and unlabored. No wheezes, rales or rhonchi. HEART: Regular rate and rhythm without rubs or gallops. S1 and S2 heard. Systolic murmur EXTREMITIES: Normal range of motion, no edema. No clubbing or cyanosis. Peripheral pulses intact and strong. TELEMETRY: Sinus rhythm overnight. No ectopy IMPRESSION: A-fib with RVR, hemodynamically unstable Mitral stenosis, rheumatic History of CAD Recent COVID-pneumonia Pulmonary hypertension Hyperlipidemia Hypertension History of bronchial asthma PLAN: Continue heparin until INR is therapeutic Aggressive pulmonary hygiene Patient may be downgraded to 3 [place] I am dictating on behalf of Dr Austin Haskins's history/physical and assessment/plan. Objective - Vital Signs Vital signs: Vital Signs Temp 97.5 F L 06/20/23 08:00 Pulse 70 06/20/23 08:00 Resp 27 H 06/20/23 08:00 BP 119/73 06/20/23 08:00 Pulse Ox 91 L 06/20/23 08:06 FiO2 35 06/20/23 08:02 Intake & Output 06/19/23 06/20/23 06/20/23 18:59 06:59 18:59 Intake Total 393.604 500.794 70 Output Total 2335 1550 325 Balance -1941.396 -1049.206 -255 Weight 50.1 kg Intake: IV 170 110 70 0.9 Normal Saline @ KVO 120 110 20 10mL/hr Cefepime 1 gm In Sodium 50 50 Chloride 0.9% 50 ml @ 12. 5 mls/hr IVPB Q12HR PAUL Rx#:[id number] Intake, IV Titration 223.604 190.794 Amount Furosemide 100 mg In 100 100 Sodium Chloride 0.9% 90 ml @ 10 MG/HR 10 mls/hr IV .Q10H PAUL Rx#: [id number] Heparin Sod,Pork in 0.45% 123.604 90.794 NaCl 25,000 unit In 0.45 % NaCl 1 250ml.bag @ 12 UNITS/KG/HR 5.933 mls/hr IV .Q24H PAUL Rx#: [id number] Oral 200 Output: Urine 2335 1550 325 Other: Voiding Method Indwelling Catheter Indwelling Catheter # Bowel Movements 0 - Labs CBC & Chem 7: 06/20/23 05:38 06/20/23 05:38 Labs: Abnormal Lab Results - Last 24 Hours (Table) 06/19/23 06/19/23 06/19/23 Range/Units 11:47 16:41 17:07 WBC (3.8-10.6) k/uL RBC (3.80-5.40) m/uL Hgb (11.4-16.0) gm/dL Hct (34.0-46.0) % MCHC (31.0-37.0) g/dL RDW (11.5-15.5) % Neutrophils # (1.3-7.7) k/uL Lymphocytes # (1.0-4.8) k/uL PT (10.0-12.5) sec INR (<1.2) APTT 48.1 H (22.0-30.0) sec Chloride (98-107) mmol/L Carbon Dioxide (22-30) mmol/L BUN (7-17) mg/dL Glucose (74-99) mg/dL POC Glucose (mg/dL) 168 H 225 H (70-110) mg/dL 06/19/23 06/19/23 06/20/23 Range/Units 20:07 20:28 05:38 WBC 13.6 H (3.8-10.6) k/uL RBC 2.91 L (3.80-5.40) m/uL Hgb 9.0 L (11.4-16.0) gm/dL Hct 29.0 L (34.0-46.0) % MCHC 30.9 L (31.0-37.0) g/dL RDW 16.0 H (11.5-15.5) % Neutrophils # 12.8 H (1.3-7.7) k/uL Lymphocytes # 0.2 L (1.0-4.8) k/uL PT (10.0-12.5) sec INR (<1.2) APTT (22.0-30.0) sec Chloride (98-107) mmol/L Carbon Dioxide (22-30) mmol/L BUN (7-17) mg/dL Glucose (74-99) mg/dL POC Glucose (mg/dL) 286 H 256 H (70-110) mg/dL 06/20/23 06/20/23 06/20/23 Range/Units 05:38 05:38 06:09 WBC (3.8-10.6) k/uL RBC (3.80-5.40) m/uL Hgb (11.4-16.0) gm/dL Hct (34.0-46.0) % MCHC (31.0-37.0) g/dL RDW (11.5-15.5) % Neutrophils # (1.3-7.7) k/uL Lymphocytes # (1.0-4.8) k/uL PT 13.4 H (10.0-12.5) sec INR 1.3 H (<1.2) APTT (22.0-30.0) sec Chloride 90 L (98-107) mmol/L Carbon Dioxide 40 H (22-30) mmol/L BUN 57 H (7-17) mg/dL Glucose 156 H (74-99) mg/dL POC Glucose (mg/dL) 219 H (70-110) mg/dL 06/20/23 Range/Units 07:45 WBC (3.8-10.6) k/uL RBC (3.80-5.40) m/uL Hgb (11.4-16.0) gm/dL Hct (34.0-46.0) % MCHC (31.0-37.0) g/dL RDW (11.5-15.5) % Neutrophils # (1.3-7.7) k/uL Lymphocytes # (1.0-4.8) k/uL PT (10.0-12.5) sec INR (<1.2) APTT 58.4 H (22.0-30.0) sec Chloride (98-107) mmol/L Carbon Dioxide (22-30) mmol/L BUN (7-17) mg/dL Glucose (74-99) mg/dL POC Glucose (mg/dL) (70-110) mg/dL
[2023-06-20 11:02] LABS: Glucose,Whole Blood 303 mg/dL (70-110)
--- NOTE | 2023-06-20 12:35 | P.PN ---
Subjective Progress Note Date: 06/20/23 This is a very pleasant 82-year-old female patient with a known history of chronic bronchial asthma, mitral valve prolapse, hypertension, hyperlipidemia, CAD with previous stent, and a lifelong non-smoker. She was just recently discharged from here on the 2023 after being treated for COVID-19 pneum onia. She did received remdesivir, bronchodilators and steroids. She is presented back to the emergency room this morning June 09, 2023 with complaints of increasing shortness of breath cough and congestion that started last evening. She did utilize her 's home oxygen without much improvement. She herself is not on home oxygen. X-ray shows patchy bilateral lung infiltrates compatible with atypical pneumonia possibly ongoing COVID-pneumonia. Suspect some underlying interstitial lung disease as well. White count 16.9. Hemoglobin 10.2. Platelets 265. Sodium 137. Potassium 4.1. Bicarb 29. BUN 21. Creatinine 0.51. proBNP 2430. AST 69. ALT 41. Procalcitonin 0.12. She is seen today in the emergency room in consultation. She is sitting up in the stretcher. Awake and alert in no acute distress. Maintaining O2 saturations in the upper 90s on 2 L/min per nasal cannula. She is afebrile. Hemodynamically stable. The patient is seen today June 10, 2023 in follow-up on the regular medical floor. She is currently sitting up in bed. Awake and alert in no acute distre ss. She still has a loose congested cough. Still dyspneic with conversation. Dyspneic with minimal exertion. She is maintaining O2 saturation in the 90s on 3 L/min per nasal cannula. No IV fluids. Her procalcitonin was 0.12. She is continued on vancomycin and cefepime. Her COVID screen today is positive still. Chest x-ray continues to show patchy bilateral infiltrates stable compared to p revious. She remains on bronchodilators and steroids. White count 18.9. Hemoglobin 9.5. Platelets 239. Sodium 140. Potassium 4.3. Bicarb 23. BUN 26. Creatinine 0.65. Glucose 138. The patient is seen today June 11, 2023 in follow-up on the regular medical floor. She is currently seen at the bedside. Family is in the room. She had a rough night. She was having increasing shortness of breath cough and congestion. She was increased to 5 L/min per nasal cannula. She was initiated on Tessalon Perles. Her procalcitonin was 0.12. She continues on cefepime and vancomycin. She remains on Symbicort, albuterol, Solu-Medrol. Blood cultures revealed no growth. Nasal swab was negative for MRSA. White count 22.3. Hemoglobin 9.7. Platelets 275. Sodium 143. Potassium 4.6. Bicarb 25. BUN 27. Creatinine 0.7. Glucose 156. Remains on diuretics. Progress note dated June 12, 2023. This is an 82-year-old female that I see in the office for asthma. She presented to the hospital, few days ago, with increasing shortness of breath, and had a chest x-ray that was suggestive of pneumonia. The patient recently had coronavirus infection. Currently, the patient's respiratory status is declining, and she is now on Airvo. Airvo settings include 45 L/min, and 55%, with a saturation of 95%. The patient is not receiving any IV fluids. She is getting both cefepime and vancomycin. In addition, the patient is receiving Solu-Medrol, albuterol inhaler, and Symbicort inhaler. She did test positive for coronavirus, but is unclear as to whether or not this is a residual positive test from her recent episode of coronavirus, or she has coronavirus again. We had a long conversation yesterday about CODE STATUS. She would want to be on the mechanical ventilator, if it came to that. No new labs today. Labs from June 10 have been reviewed. This morning's chest x-ray, may be a bit worse. The patient is seen today June 13, 2023 in follow-up on the regular medical floor. She is currently sitting up in a chair at the bedside. Awake and alert in no acute distress. She is breathing a bit easier today compared to yesterday. Her Airvo has been decreased to 45 L and 50% FiO2 with O2 saturation in the low 90s. Blood cultures revealed no growth. Sputum culture revealed no growth. White count 12.2. Hemoglobin 9.0. Platelets 180. Sodium 143. Potassium 4.6. Bicarb 31. BUN 33. Creatinine 0.7. Glucose 175. She is continued on cefepime. Remains on bronchodilators, steroids, vitamin supplements. Remains on oral diuretics. Progress note dated June 14, 2023. 82-year-old female with a history of asthma, and aortic stenosis. The patient was admitted with a diagnosis of possible pneumonia. The patient had a recent episode of coronavirus infection, and did test positive on this admission again for coronavirus. Today she is sitting in a chair next to her hospital bed. She has been weaned off Airvo, down to high flow nasal cannula at 7 L. She is receiving cefepime. She does feel better. Current labs include a white count of 13.2, hemoglobin 8.7, hematocrit 29.2, and a platelet count of 171,000. The patient is seen today June 15, 2023 in follow-up on the regular medical floor. She is currently sitting up in a chair at the bedside. Awake and alert in no acute distress. Breathing a bit easier today compared to yesterday. She is currently on 7 L high flow nasal cannula maintaining O2 saturation in the low 90s. She is continued on cefepime. Blood cultures revealed no growth. Sputum culture reveals no growth. Glucose 246. She remains on bronchodilators and steroids. Remains on oral diuretics. Lovenox for DVT prophylaxis. Continued on multivitamins. The patient is seen today June 16, 2023 in follow-up on the regular medical floo r. She is currently sitting up in a chair at the bedside. Awake and alert. She is back on Airvo high flow oxygen at 40 L and 50% FiO2. She has been very slow to progress. Her chest x-ray shows worsening bilateral infiltrates. She remains on Symbicort, albuterol, Singulair, Solu-Medrol. Remains on antibiotics in the form of cefepime. Continued on vitamin supplements. Remains on oral diuretics. Doppler of the lower extremities are negative for DVT. Blood cultures revealed no growth. Sputum culture revealed no growth. White count 16.4. Hemoglobin 8.7. Platelets 149. Sodium 145. Potassium 4.4. Bicarb 36. BUN 35. Creatinine 0.6. Glucose 178. AST 57. ALT 58. Lovenox for DVT prophylaxis. On today's evaluation of 06/17/2023, I am seeing the patient for a follow-up. The patient remains hypoxic with a chest x-ray showing diffuse bilateral pulmonary filtrates consistent with either cardiogenic versus noncardiogenic pulmonary edema. The patient diffuse airspace pulmonary filtrates throughout the lung stoll bilaterally. Noted the patient was hospitalized approximate 2 to 3 weeks ago for COVID-19 related pneumonia and CHF and the patient was treated and the chest x-ray prior to her discharge showed complete clearing. She is also noted to have mitral stenosis. For now, the patient is on high flow oxygen utilizing Airvo system with a flow of 40 L and FiO2 of 60%. The Doppler of the lower extremity was done and showed no evidence of any DVT and this was done on 06/16/2023. The patient is afebrile. The patient is hemodynamically stable. The patient remains on bronchodilators and the patient is currently on Ventolin HFA 4 times a day, Symbicort as maintenance the patient is empirically covered with IV cefepime and she is also on IV Solu-Medrol 60 mg every 6 hours. Suggested starting the patient on Lasix drip to optimize her volume status. Her most recent echocardiogram that was done on 05/27/2023 showed a preserved LV function. Nevertheless, the patient had moderate thickening and calcification of the anterior and the posterior mitral valve leaflet and the mitral valve was severely stenotic. There was mild aortic stenosis in addition. Right vent ricular systolic pressure was diminished to be around 58. There is severe LA dilatation. On today's evaluation of 06/17/2022, the patient got transferred to the intensive care unit. I attended on this patient as the patient developed shortness of breath and acute tachycardia and the patient was found to be in new onset atrial fibrillation with rapid ventricular response. Heart rate was around 170. The patient was still maintaining her home blood pressure. She was transferred to the ICU and the patient was started on amiodarone initially a bolus of 150 mg was given. During this time, the patient developed some hypotension with a systolic blood pressure in the low 80s. Based on that, cardiology was involved and the patient was immediately cardioverted. The patient underwent DC cardiov ersion that was successful and the patient is currently back in normal sinus rhythm. Amiodarone is running at 1 mg/min at this point in time. At the same time, the patient remains on Lasix drip at 5 mg an hour. The fluid balance has been negative at least 3 L over the past 24 hours. Chest x-ray still showing diffuse bilateral pulmonary filtrates consistent with pulmonary edema. Noncardiogenic cause of pulm edema is also considered although I favor valvular heart disease with secondary atrial fibrillation and heart failure. The patient has severe mitral stenosis. WBC count is at 22 with a hemoglobin 9.1 and a platelet count of 180. Potassium level is at 2.7 needs to be replaced with a BUN of 50 and a creatinine of 0.9 and a sodium levels at 137. Blood sugars also elevated this morning at 363. The patient was also started on IV heparin. During the process, the patient remained alert and awake. She feels less short of breath post cardioversion. Family has been updated periodically on her condition. At this point in time, the patient is on metoprolol 100 mg p.o. 3 times daily. The patient is also on amiodarone drip and IV heparin. The patient is post cardioversion. The patient is receiving IV cefepime and IV Solu-Medrol. On today's evaluation of 06/19/2023, I am seeing the patient for a follow-up. The patient is sitting up on the chair and the patient continues to be on high flow oxygen and currently she is on 35 L with an FiO2 of 35%. Oxygenation is improved and the patient is gradually being weaned off on the high flow and the patient will be attempted on nasal cannula. Chest x-ray still showing diffuse bilateral pulmonary filtrates consistent with pulmonary edema. The patient remains on amiodarone drip and the cardiac rhythm has remained sinus throughout the day the patient remains on IV heparin. The patient is post cardioversion. At the same time, the patient is being diuresed with IV Lasix. The patient remains on Lasix drip at 10 mg an hour. Fluid balance is -732 cc and overall fluid balance is -4 L over the past 24 hours. WBC count at 17.7, hemoglobin of 8.8, potassium level is at 4.9 and has been replaced. Sodium is at 137 with a B UN of 47 and a creatinine of 0.7. Remains on IV cefepime. Remains on IV Solu- Medrol. Remains on rest of the medications. Discussed the case with cardiology. Will transition this patient to warfarin for valvular A-fib. She is awake and alert. She denies having any specific complaints. She reports improvement in her overall respiratory status. On today's evaluation of 06/20/2023, the patient is on oxygen at 15 L nasal cannula with a pulse ox of 94%. She is calm and comfortable. She feels that she is gradually improving. Her chest x-ray shows slight improvement in the diffuse bilateral pulmonary filtrates compared to yesterday's chest x-ray. The patient continues to be on Lasix drip at 10 mg an hour and the fluid balance is -2.9 L over the past 24 hours. The serum bicarb is up to 40. Sodium is at 137, BUN is at 57 with a creatinine of 0.69. WBC count is at 15.6 with a hemoglobin 9 and a platelet count of 170. No chest pain. Cardiac rhythm remained sinus. She is on oral amiodarone. She is on IV heparin and the patient was started on anticoagulation with warfarin. She is also on metoprolol at a dose of 50 mg twice daily. Objective - Vital Signs Vital signs: Vital Signs Temp 97.9 F 06/20/23 12:00 Pulse 57 L 06/20/23 12:00 Resp 21 06/20/23 12:00 BP 122/56 06/20/23 12:00 Pulse Ox 98 06/20/23 12:00 FiO2 35 06/20/23 12:00 Intake & Output 06/19/23 06/20/23 06/20/23 18:59 06:59 18:59 Intake Total 393.604 500.794 141.833 Output Total 2335 1550 990 Balance -1941.396 -1049.206 -848.167 Weight 50.1 kg Intake: IV 170 110 110 0.9 Normal Saline @ KVO 120 110 60 10mL/hr Cefepime 1 gm In Sodium 50 50 Chloride 0.9% 50 ml @ 12. 5 mls/hr IVPB Q12HR PAUL Rx#:[id number] Intake, IV Titration 223.604 190.794 31.833 Amount Furosemide 100 mg In 100 100 31.833 Sodium Chloride 0.9% 90 ml @ 10 MG/HR 10 mls/hr IV .Q10H PAUL Rx#: [id number] Heparin Sod,Pork in 0.45% 123.604 90.794 NaCl 25,000 unit In 0.45 % NaCl 1 250ml.bag @ 12 UNITS/KG/HR 5.933 mls/hr IV .Q24H PAUL Rx#: [id number] Oral 200 Output: Urine 2335 1550 990 Other: Voiding Method Indwelling Catheter Indwelling Catheter Indwelling Catheter # Bowel Movements 0 - Exam GENERAL EXAM: Alert, 82-year-old white female appearing stated age, comfortable in no apparent distress. Patient is currently on 15 L of O2 nasal cannula HEAD: Normocephalic and atraumatic EYES: Normal reaction of pupils, equal size. NOSE: Clear with pink turbinates. THROAT: No erythema or exudates. NECK: No masses, no JVD. CHEST: No chest wall deformity. LUNGS: Equal air entry with diffuse rhonchi and crackles. no conversational dyspnea or accessory muscle use while at rest CVS: S1 and S2 normal with grade 4 diastolic/systolic murmur, regular rhythm. No other extra heart sounds ABDOMEN: No hepatosplenomegaly, active bowel sounds, no guarding or rigidity. SPINE: No scoliosis or deformity SKIN: No rashes CENTRAL NERVOUS SYSTEM: No focal deficits, tone is normal in all 4 extremities. EXTREMITIES: There is no peripheral edema, clubbing, or cyanosis. Peripheral pulses are intact. - Labs CBC & Chem 7: 06/20/23 05:38 06/20/23 05:38 Labs: Abnormal Lab Results - Last 24 Hours (Table) 06/19/23 06/19/23 06/19/23 Range/Units 16:41 17:07 20:07 WBC (3.8-10.6) k/uL RBC (3.80-5.40) m/uL Hgb (11.4-16.0) gm/dL Hct (34.0-46.0) % MCHC (31.0-37.0) g/dL RDW (11.5-15.5) % Neutrophils # (1.3-7.7) k/uL Lymphocytes # (1.0-4.8) k/uL PT (10.0-12.5) sec INR (<1.2) APTT 48.1 H (22.0-30.0) sec Chloride (98-107) mmol/L Carbon Dioxide (22-30) mmol/L BUN (7-17) mg/dL Glucose (74-99) mg/dL POC Glucose (mg/dL) 225 H 286 H (70-110) mg/dL 06/19/23 06/20/23 06/20/23 Range/Units 20:28 05:38 05:38 WBC 13.6 H (3.8-10.6) k/uL RBC 2.91 L (3.80-5.40) m/uL Hgb 9.0 L (11.4-16.0) gm/dL Hct 29.0 L (34.0-46.0) % MCHC 30.9 L (31.0-37.0) g/dL RDW 16.0 H (11.5-15.5) % Neutrophils # 12.8 H (1.3-7.7) k/uL Lymphocytes # 0.2 L (1.0-4.8) k/uL PT (10.0-12.5) sec INR (<1.2) APTT (22.0-30.0) sec Chloride 90 L (98-107) mmol/L Carbon Dioxide 40 H (22-30) mmol/L BUN 57 H (7-17) mg/dL Glucose 156 H (74-99) mg/dL POC Glucose (mg/dL) 256 H (70-110) mg/dL 06/20/23 06/20/23 06/20/23 Range/Units 05:38 06:09 07:45 WBC (3.8-10.6) k/uL RBC (3.80-5.40) m/uL Hgb (11.4-16.0) gm/dL Hct (34.0-46.0) % MCHC (31.0-37.0) g/dL RDW (11.5-15.5) % Neutrophils # (1.3-7.7) k/uL Lymphocytes # (1.0-4.8) k/uL PT 13.4 H (10.0-12.5) sec INR 1.3 H (<1.2) APTT 58.4 H (22.0-30.0) sec Chloride (98-107) mmol/L Carbon Dioxide (22-30) mmol/L BUN (7-17) mg/dL Glucose (74-99) mg/dL POC Glucose (mg/dL) 219 H (70-110) mg/dL 06/20/23 Range/Units 11:01 WBC (3.8-10.6) k/uL RBC (3.80-5.40) m/uL Hgb (11.4-16.0) gm/dL Hct (34.0-46.0) % MCHC (31.0-37.0) g/dL RDW (11.5-15.5) % Neutrophils # (1.3-7.7) k/uL Lymphocytes # (1.0-4.8) k/uL PT (10.0-12.5) sec INR (<1.2) APTT (22.0-30.0) sec Chloride (98-107) mmol/L Carbon Dioxide (22-30) mmol/L BUN (7-17) mg/dL Glucose (74-99) mg/dL POC Glucose (mg/dL) 303 H (70-110) mg/dL Assessment and Plan Plan: Acute hypoxic respiratory failure most likely secondary to pulmonary edema related to her valvular heart disease. The patient has severe mitral stenosis, mild aortic stenosis in addition to severe pulm hypertension. LV function is preserved. Other less likely possibilities include hospital-acquired pneumonia versus ongoing/worsening COVID-19 pneumonia. The patient developed diffuse bilateral pulmonary filtrates. She is also covered with cefepime and IV Solu- Medrol. The patient was started Lasix drip at 10 mg an hour. Fluid balance remains negative. Slight improvement in the chest x-ray findings. Oxygenation continues to improve and the patient is currently on 15 L nasal cannula. New onset atrial fibrillation with RVR. The patient became hemodynamically unstable/hypotensive and the patient received cardioversion. Currently back to normal sinus rhythm. Currently loaded with amiodarone and amiodarone as a maintenance. This will be switched to oral amiodarone. The patient is also on metoprolol 50 mg p.o. twice a day. Cardiac rhythm is sinus. Patient is also on IV heparin to be transition to oral anticoagulants. The patient was started on warfarin. Acute exacerbation of mild intermittent chronic bronchial asthma Recent discharge on May 31, 2023 for COVID-19 pneumonia, treated with remdesivir. Still testing positive. Noted the patient has complete clearing of the bilateral pulmonary filtrates on previous hospitalization and the chest x- ray was initially clear prior to her discharge. History of coronary artery disease with previous PCI/stent x3 History of hyperlipidemia History of hypertension Moderate to severe mitral calcification and moderate to severe mitral stenosis and mild aortic regurgitation and stenosis. LV function is preserved and the patient has an ejection fraction of 60 to 65%. Pulmonary hypertension WHO class II Rheumatoid arthritis History of hypothyroidism Lifelong non-smoker Plan: The patient is currently in the intensive care unit for close monitoring. Will monitor oxygenation Keep the patient on high flow oxygen at 15 L and gradually wean it down as tole rated Continue IV heparin, based on her valvular heart disease the patient can be transition to oral warfarin. She does have valvular atrial fibrillation. Continue amiodarone 400 mg p.o. twice a day Continue metoprolol 50 mg p.o. twice a day Continue Lasix drip at 10 mg an hour Replace potassium Give a dose of Diamox 500 mg IV push x 1 Titrate the FiO2 as tolerated Discontinued IV Solu-Medrol start the patient on prednisone 20 mg p.o. daily Continue IV cefepime Dopplers revealed no DVT Condition is guarded We will continue to follow Case was discussed with the family at the bedside. Repeat chest x-ray in the morning and will continue to follow.
[2023-06-20 16:04] LABS: Glucose,Whole Blood 309 mg/dL (70-110)
[2023-06-20] MEDS: WARFARIN 5 MG TAB PO ONE (18:06)
[2023-06-20 20:14] LABS: Glucose,Whole Blood 361 mg/dL (70-110)
[2023-06-20] MEDS: CEFEPIME 2 GM in SODIUM CHLORIDE 0.9% 100 ML IVPB SCH (20:37)
--- NOTE | 2023-06-20 23:14 | P.PN ---
Subjective 82-year-old female, history of hypertension, hyperlipidemia, mitral valve prolapse, hypothyroidism, rheumatoid arthritis, CHF present to the emergency department with difficulty breathing. Onset was yesterday. Patient has had a cough for over a week. Patient has occasional yellow sputum. Patient did have COVID-19 pneumonia couple weeks ago and was in the hospital and discharged home. Patient is unaware of any fevers at home. Patient has chronic interstitial lung disease. She was just recently discharged from here on the 2023 after being treated for COVID-19 pneumonia. She did received remdesivir, bronchodilators and steroids. She is presented back to the emergency room this morning June 09, 2023 with complaints of increasing shortness of breath cough and congestion that started last evening. She did utilize her 's home oxygen without much improvement. She herself is not on home oxygen. X-ray shows patchy bilateral lung infiltrates compatible with atypical pneumonia possibly ongoing COVID-pneumonia. Suspect some underlying interstitial lung disease as well. White count 16.9. Hemoglobin 10.2. Platelets 265. Sodium 137. Potassium 4.1. Bicarb 29. BUN 21. Creatinine 0.51. proBNP 2430. AST 69. ALT 41. Procalcitonin 0.12. 06/10/2023 Patient awake and alert She has more shortness of breath today improved with higher oxygen from 2 up to 3 L/min Repeat chest x-ray showing patchy bilateral infiltrates, stable exam. No fever today but hemodynamically stable BMP is unremarkable Patient remains on IV cefepime, IV vancomycin and IV Solu-Medrol 60 mg and normal saline 75 mL/h 06/11/2023 Patient breathing is worse today, she is requiring nonrebreather 60 L/min with FiO2 of 90% and also she is tachypneic and anxious, As per staff patient and family declining intubation and if she deteriorates she might need to be placed on BiPAP WBC is 22.3, hemoglobin stable 9.7 She is currently covered with IV cefepime and IV vancomycin and IV Solu-Medrol. IV fluids was discontinued 06/12/2023 patient awake and alert, in mild distress because of her tachypnea but is improving Oxygen requirement down to 45 L/m No other new complaints. She remains on IV Solu-Medrol 60 mg in the broad-spectrum antibiotics cefepime and IV vancomycin 06/13/2023 Patient sitting up in chair, her breathing rate is similar to yesterday She is still on high flow nasal cannula at 45 L/min She remains on IV cefepime and Vanco vancomycin, she is on IV Solu-Medrol. No IV fluid Daughter at bedside and all questions answered and they are agreeable with the plan I am resuming the care of the patient on 06/18/2023 Patient was looking tired today, awake and alert but she was short of breath Although oxygen saturation show improvement down to 40 L/min compared to yesterday 45 L/min. After rounding I got a call from the nurse patient is becoming tachycardic, EKG showing A-fib and RVR. Heart rate went up to 174 and patient was hypotensive therefore we transferred the patient to the intensive care unit and amiodarone bolus and drip was started. Cardiology team evaluated the patient and patient is status post cardioversion which she changed back to sinus rhythm. Hypokalemia 2.7 been replaced. Also patient started on metoprolol 100 mg 3 times daily and IV heparin drip. Currently patient looks more comfortable and heart rate and blood pressure improved and stabilized, heart rate is in 65. Chest x-ray repeated today showing bilateral infiltrates slightly better compared to last chest x-ray, consistent with pulmonary edema with proBNP is elevated to 430. While pro- Calcitonin is low or mildly elevated 0.12. Patient also kept on IV Solu-Medrol 40 mg instead of 60 mg yesterday. Is given twice daily. Glucose is elevated and patient started on Levemir 10 units daily 06/20/2023 Patient seen and examined at bedside Related is improving today her oxygen requirement dropped from 15 L to 4 L IV Solu-Medrol switched to prednisone 20 mg daily. Patient continued with IV heparin drip and Coumadin for her new onset A-fib. Currently rate controlled She complains from constipation Colace added No other new complaint review of systems CONSTITUTIONAL: No fever, no malaise, no fatigue. HEENT: No recent visual problems or hearing problems. Denied any sore throat. GASTROINTESTINAL: No diarrhea, no nausea, no vomiting, no abdominal pain. Normoactive bowel sounds. NEUROLOGICAL: No headaches, no weakness, no numbness. HEMATOLOGICAL: Denies any bleeding or petechiae. GENITOURINARY: Denies any burning micturition, frequency, or urgency. MUSCULOSKELETAL/RHEUMATOLOGICAL: Denies any joint pain, swelling, or any muscle pain. ENDOCRINE: Denies any polyuria or polydipsia. Active Medications Generic Name Dose Route Start Last Admin Trade Name Freq PRN Reason Stop Dose Admin Acetaminophen 650 mg 06/10/23 12:38 06/17/23 21:12 Acetaminophen Tab 325 Mg Tab PO 650 mg Q6HR PRN Administration Fever and/ or Pain Albuterol Sulfate 2 puff 06/10/23 13:00 06/18/23 20:10 Albuterol Hfa Inhaler INHALATION 2 puff RT-QID PAUL Administration Albuterol Sulfate 2 puff 06/10/23 12:46 Albuterol Hfa Inhaler INHALATION RT-Q4H PRN shortness of breath Alprazolam 0.25 mg 06/09/23 11:33 06/18/23 09:30 Alprazolam 0.25 Mg Tab PO 0.25 mg Q8HR PRN Administration Anxiety Ascorbic Acid 1,000 mg 06/10/23 09:00 06/18/23 10:23 Ascorbic Acid 500 Mg Tab PO Not Given DAILY [facility] Aspirin 81 mg 06/10/23 07:30 06/18/23 07:01 Aspirin 81 Mg PO 81 mg AC-BRKFST PAUL Administration Atorvastatin Calcium 80 mg 06/09/23 11:45 06/18/23 10:24 Atorvastatin 80 Mg Tab PO Not Given DAILY [facility] Benzonatate 200 mg 06/11/23 07:00 06/14/23 12:52 Benzonatate 100 Mg Cap PO 200 mg TID PRN Administration Cough Budesonide/Formoterol Fumarate 2 puff 06/10/23 20:00 06/18/23 20:10 Symbicort 160-4.5 Mcg Inhaler INHALATION 2 puff RT-BID PAUL Administration Calcium Carbonate/Glycine 500 mg 06/10/23 09:00 06/18/23 10:24 Calcium Carbonate 500 Mg Chewable PO Not Given DAILY [facility] Cholecalciferol 50 mcg 06/10/23 09:00 06/18/23 09:30 Cholecalciferol 25 Mcg (1000 Iu) Tablet PO 50 mcg DAILY PAUL Administration Dapagliflozin 5 mg 06/10/23 09:00 06/18/23 09:29 Dapagliflozin Propanediol 5 Mg Tablet PO 5 mg DAILY PAUL Administration Dextrose/Water 25 ml 06/15/23 16:06 Dextrose 50% Syringe 50 Ml IVP PER PROTOCOL PRN Hypoglycemia Protocol Dextrose/Water 50 ml 06/15/23 16:06 Dextrose 50% Syringe 50 Ml IVP PER PROTOCOL PRN Hypoglycemia Protocol Heparin Sodium (Porcine) 0 unit 06/18/23 10:13 Heparin Sodium 1,000 Un/Ml (10ml Vl) IV PER PROTOCOL PRN Low PTT Protocol Cefepime HCl 1 gm/ Sodium 50 mls @ 12.5 mls/hr 06/09/23 21:00 06/18/23 11:37 Chloride IVPB 12.5 mls/hr Q12HR PAUL Administration Protocol Furosemide 100 mg/ Sodium 100 mls @ 10 mls/hr 06/17/23 12:45 06/18/23 11:36 Chloride IV 5 mg/hr .Q10H PAUL 5 mls/hr Administration 10 MG/HR Heparin Sodium/Sodium Chloride 250 mls @ 5.933 mls/hr 06/18/23 10:15 06/18/23 10:57 25,000 unit/ Sodium Chloride IV 12 units/kg/hr .Q24H PAUL 5.933 mls/hr Administration Protocol 12 UNITS/KG/HR Amiodarone HCl 360 mg/ 200 mls @ 33.333 mls/hr 06/18/23 16:45 06/18/23 18:21 Dextrose/Water IV 1 mg/min .Q6H PAUL 33.333 mls/hr Administration Protocol 1 MG/MIN Insulin Aspart 0 unit 06/15/23 17:30 06/18/23 18:09 Insulin Aspart (Novolog) 100 Unit/Ml Vial SQ 2 unit ACHS PAUL Administration Protocol Insulin Detemir 10 unit 06/18/23 13:30 06/18/23 14:20 Insulin Detemir (Levemir) 100 Unit/Ml Syr SQ 10 unit DAILY@0700 [facility] Administration Levothyroxine Sodium 56 mcg 06/09/23 11:45 06/16/23 06:24 Levothyroxine 112 Mcg Tab PO 56 mcg SuSa@0630 PAUL Administration Levothyroxine Sodium 112 mcg 06/10/23 06:30 06/18/23 07:01 Levothyroxine 112 Mcg Tab PO 112 mcg MoTuWeThFr@0630 PAUL Administration Magnesium Oxide 400 mg 06/09/23 11:45 06/18/23 10:24 Magnesium Oxide 400 Mg Tab PO Not Given DAILY [facility] Methylprednisolone Sodium Succinate 40 mg 06/18/23 21:00 Methylprednisolone Sod Succi 40 Mg/Ml 1 Ml Vial IV Q12HR [facility] Metoprolol Tartrate 100 mg 06/18/23 16:00 06/18/23 18:19 Metoprolol Tartrate 50 Mg Tab PO Not Given TID [facility] Miscellaneous Information 1 each 06/09/23 09:40 Pneumonia Protocol Utilized 1 Each Misc PO ONCE PRN Per Protocol Miscellaneous Information 1 each 06/18/23 11:57 Potassium Replacement Protocol 1 Each Misc MISCELLANE DAILY PRN Per Protocol Protocol Montelukast Sodium 10 mg 06/09/23 21:00 06/17/23 21:12 Montelukast 10 Mg Tab PO 10 mg HS PAUL Administration Naloxone HCl 0.2 mg 06/18/23 11:07 Naloxone 0.4 Mg/Ml 1 Ml Vial IV Q2M PRN Opioid Reversal Pantoprazole Sodium 40 mg 06/09/23 11:45 06/18/23 07:01 Pantoprazole 40 Mg Tablet PO 40 mg AC-BRKFST PAUL Administration Zinc Sulfate 220 mg 06/09/23 11:45 06/18/23 10:24 Zinc Sulfate 220 Mg Cap PO Not Given DAILY [facility] Objective - Vital Signs Vital signs: Vital Signs Temp 97.9 F 06/20/23 12:00 Pulse 57 L 06/20/23 12:00 Resp 21 06/20/23 12:00 BP 122/56 06/20/23 12:00 Pulse Ox 98 06/20/23 12:00 FiO2 35 06/20/23 12:00 Intake & Output 06/19/23 06/20/23 06/20/23 18:59 06:59 18:59 Intake Total 393.604 500.794 141.833 Output Total 2335 1550 990 Balance -1941.396 -1049.206 -848.167 Weight 50.1 kg Intake: IV 170 110 110 0.9 Normal Saline @ KVO 120 110 60 10mL/hr Cefepime 1 gm In Sodium 50 50 Chloride 0.9% 50 ml @ 12. 5 mls/hr IVPB Q12HR [facility] Rx#:[id number] Intake, IV Titration 223.604 190.794 31.833 Amount Furosemide 100 mg In 100 100 31.833 Sodium Chloride 0.9% 90 ml @ 10 MG/HR 10 mls/hr IV .Q10H PAUL Rx#: [id number] Heparin Sod,Pork in 0.45% 123.604 90.794 NaCl 25,000 unit In 0.45 % NaCl 1 250ml.bag @ 12 UNITS/KG/HR 5.933 mls/hr IV .Q24H PAUL Rx#: [id number] Oral 200 Output: Urine 2335 1550 990 Other: Voiding Method Indwelling Catheter Indwelling Catheter Indwelling Catheter # Bowel Movements 0 - Exam GENERAL: The patient is alert and oriented x3, not in any acute distress. Well developed, well nourished. HEENT: Pupils are round and equally reacting to light. EOMI. No scleral icterus. No conjunctival pallor. Normocephalic, atraumatic. No pharyngeal erythema. No thyromegaly. CARDIOVASCULAR: S1 and S2 present. No murmurs, rubs, or gallops. -PULMONARY: Chest is clear to auscultation, no wheezing , bilateral crackles. Tachypneic, mild ABDOMEN: Soft, nontender, nondistended, normoactive bowel sounds. No palpable organomegaly. MUSCULOSKELETAL: No joint swelling or deformity. EXTREMITIES: No cyanosis, clubbing, or pedal edema. NEUROLOGICAL: Gross neurological examination did not reveal any focal deficits. SKIN: No rashes. no petechiae. - Labs CBC & Chem 7: 06/20/23 05:38 06/20/23 05:38 Labs: Abnormal Lab Results - Last 24 Hours (Table) 06/19/23 06/19/23 06/19/23 Range/Units 16:41 17:07 20:07 WBC (3.8-10.6) k/uL RBC (3.80-5.40) m/uL Hgb (11.4-16.0) gm/dL Hct (34.0-46.0) % MCHC (31.0-37.0) g/dL RDW (11.5-15.5) % Neutrophils # (1.3-7.7) k/uL Lymphocytes # (1.0-4.8) k/uL PT (10.0-12.5) sec INR (<1.2) APTT 48.1 H (22.0-30.0) sec Chloride (98-107) mmol/L Carbon Dioxide (22-30) mmol/L BUN (7-17) mg/dL Glucose (74-99) mg/dL POC Glucose (mg/dL) 225 H 286 H (70-110) mg/dL 06/19/23 06/20/23 06/20/23 Range/Units 20:28 05:38 05:38 WBC 13.6 H (3.8-10.6) k/uL RBC 2.91 L (3.80-5.40) m/uL Hgb 9.0 L (11.4-16.0) gm/dL Hct 29.0 L (34.0-46.0) % MCHC 30.9 L (31.0-37.0) g/dL RDW 16.0 H (11.5-15.5) % Neutrophils # 12.8 H (1.3-7.7) k/uL Lymphocytes # 0.2 L (1.0-4.8) k/uL PT (10.0-12.5) sec INR (<1.2) APTT (22.0-30.0) sec Chloride 90 L (98-107) mmol/L Carbon Dioxide 40 H (22-30) mmol/L BUN 57 H (7-17) mg/dL Glucose 156 H (74-99) mg/dL POC Glucose (mg/dL) 256 H (70-110) mg/dL 06/20/23 06/20/23 06/20/23 Range/Units 05:38 06:09 07:45 WBC (3.8-10.6) k/uL RBC (3.80-5.40) m/uL Hgb (11.4-16.0) gm/dL Hct (34.0-46.0) % MCHC (31.0-37.0) g/dL RDW (11.5-15.5) % Neutrophils # (1.3-7.7) k/uL Lymphocytes # (1.0-4.8) k/uL PT 13.4 H (10.0-12.5) sec INR 1.3 H (<1.2) APTT 58.4 H (22.0-30.0) sec Chloride (98-107) mmol/L Carbon Dioxide (22-30) mmol/L BUN (7-17) mg/dL Glucose (74-99) mg/dL POC Glucose (mg/dL) 219 H (70-110) mg/dL 06/20/23 Range/Units 11:01 WBC (3.8-10.6) k/uL RBC (3.80-5.40) m/uL Hgb (11.4-16.0) gm/dL Hct (34.0-46.0) % MCHC (31.0-37.0) g/dL RDW (11.5-15.5) % Neutrophils # (1.3-7.7) k/uL Lymphocytes # (1.0-4.8) k/uL PT (10.0-12.5) sec INR (<1.2) APTT (22.0-30.0) sec Chloride (98-107) mmol/L Carbon Dioxide (22-30) mmol/L BUN (7-17) mg/dL Glucose (74-99) mg/dL POC Glucose (mg/dL) 303 H (70-110) mg/dL Assessment and Plan Assessment: 1. Acute hypoxic respiratory failure; multifactorial; hospital-acquired pneumonia versus --Increased oxygen requirement to high flow nasal cannula acute diastolic heart failure with ejection fraction 60 to 65% --Lasix drip 2. Acute exacerbation of asthma -IV Solu-Medrol 40 mg every 12 hours; DuoNeb nebulizer treatments 4 times daily and as needed 3. Mild LETICIA; hold off on IV fluid therapy given worsening chest congestion; we will monitor renal function electrolytes closely; avoid nephrotoxins and hypotension 4. Hospital-acquired pneumonia;-- Pulmonary on board and patient has been placed on IV cefepime and vancomycin 5. New onset A-fib and RVR, s/p cardioversion Currently on metoprolol 100 mg and amiodarone. Also patient was started on IV heparin Which is switched to warfarin pharmacy to dose 6. Hypertension; verapamil SR 120 mg daily; metoprolol 100 mg 3 times daily 7. Hyperlipidemia; Lipitor 40 mg daily 8. Hypothyroidism; levothyroxine 112 mcg Saturday through Saturday and 56 mcg Saturday and Saturday 9. Coronary artery disease/CHF; status post PCI/stent x 3; patient remains on aspirin, Lipitor, Imdur -- Lasix 40 mg daily and Farxiga 5 mg daily 10. Mitral stenosis; patient has moderate to severe mitral calcifications causing moderate to severe mitral stenosis and mild aortic regurgitation and stenosis -- Last echocardiogram reveals an EF of 60 to 65% DVT prophylaxis; SCDs/subcu heparin CODE STATUS; full code
[2023-06-20] MEDS ORDERED: INSULIN DETEMIR (LEVEMIR) 100 UNIT/ML SYR SQ ONE (23:15)
[2023-06-21 05:16] LABS: HGB 9.2 gm/dL (11.4-16.0); Hypochromasia Slight; MCH 31.7 pg (25.0-35.0); MCHC 31.9 g/dL (31.0-37.0); MCV 99.5 fL (80.0-100.0); Macrocytosis Slight; Mean Platelet Volume 8.9; Platelet Count 187 k/uL (150-450); RBC 2.91 m/uL (3.80-5.40); RDW 15.8 % (11.5-15.5); WBC 15.1 k/uL (3.8-10.6)
[2023-06-21 05:24] LABS: Partial Thromboplastin Time 72.4 sec (22.0-30.0); Prothrombin Time 29.2 sec (10.0-12.5)
[2023-06-21 05:47] LABS: African American GFR (CKD) 54 (>60 ml/min/1.73 sqM); Anion Gap 7 mmol/L; Blood Urea Nitrogen 50 mg/dL (7-17); Calcium 8.9 mg/dL (8.4-10.2); Chloride 90 mmol/L (98-107); Glucose 87 mg/dL (74-99); Non-African American GFR(CKD) 47 (>60 ml/min/1.73 sqM); Potassium 3.7 mmol/L (3.5-5.1); Sodium 137 mmol/L (137-145)
[2023-06-21 06:05] LABS: Carbon Dioxide 39 mmol/L (22-30)
[2023-06-21 06:21] LABS: Glucose,Whole Blood 95 mg/dL (70-110)
[2023-06-21] MEDS: POTASSIUM CHLORIDE ER 20 MEQ TAB.ER PO SCH ×2 (06:44→12:32)
--- NOTE | 2023-06-21 07:29 | XR ---
EXAMINATION TYPE: XR chest 1V portable DATE OF EXAM: 06/21/2023 HISTORY: Shortness of breath. COMPARISON: 06/20/2023 TECHNIQUE: Single view of the chest is submitted. FINDINGS: Demonstrated are scattered senescent parenchymal change. Diffuse airspace infiltrates persist with slight interval improvement suggested. The heart is stable. Hilar and mediastinal structures are within normal limits. Degenerative changes are seen of the dorsal spine. IMPRESSION: 1. Diffuse airspace infiltrates persist with slight interval improvement suggested.
[2023-06-21] MEDS: predniSONE 20 MG TAB PO SCH (08:33)
--- NOTE | 2023-06-21 09:42 | P.PN ---
Subjective Progress Note Date: 06/21/23 The patient is an 82-year-old female who follows in the office with Dr. Jain. The patient is currently admitted and being treated for pneumonia after recent COVID-19 infection. Shortly after her admission she developed A- fib with RVR and became hemodynamically unstable. She underwent cardioversion a nd has since remained in sinus rhythm on amiodarone. No recurrence in her A-fib over the last 48 hours. Patient was interviewed and examined sitting up in the recliner chair. She has been weaned off of the high flow nasal cannula over the last 24 hours. Unfortunately she is yet to be up and ambulate. She denies any chest pain or chest pressure. No dizziness or lightheadedness upon standing. GENERAL: Well-appearing, well-nourished and in no acute distress. NECK: Supple without JVD or thyromegaly. LUNGS: Breath sounds diminished to auscultation bilaterally. Respiration equal and unlabored. No wheezes, rales or rhonchi. HEART: Regular rate and rhythm without rubs or gallops. S1 and S2 heard. Systolic murmur EXTREMITIES: Normal range of motion, no edema. No clubbing or cyanosis. Radha pheral pulses intact and strong. TELEMETRY: Sinus rhythm overnight. No ectopy IMPRESSION: A-fib with RVR, hemodynamically unstable Mitral stenosis, rheumatic History of CAD Recent COVID-pneumonia Pulmonary hypertension Hyperlipidemia Hypertension History of bronchial asthma PLAN: Continue warfarin Aggressive pulmonary hygiene Outpatient follow-up with primary collections manager Dr. Jain 1 week after discharge No further recommendations from the cardiac standpoint I am dictating on behalf of Dr Austin Haskins's history/physical and assessment/plan. Objective - Vital Signs Vital signs: Vital Signs Temp 98.0 F 06/21/23 08:00 Pulse 68 06/21/23 08:00 Resp 22 06/21/23 08:00 BP 123/62 06/21/23 08:00 Pulse Ox 97 06/21/23 08:38 FiO2 35 06/20/23 13:00 Intake & Output 06/20/23 06/21/23 06/21/23 18:59 06:59 18:59 Intake Total 570.437 1426.954 20 Output Total 2160 1870 150 Balance -1865.834 -846.046 -130 Weight 50.1 kg Intake: IV 170 120 20 0.9 Normal Saline @ KVO 120 120 20 10mL/hr Cefepime 1 gm In Sodium 50 Chloride 0.9% 50 ml @ 12. 5 mls/hr IVPB Q12HR [facility] Rx#:[id number] Intake, IV Titration 124.166 403.954 Amount Cefepime 2 gm In Sodium 100 Chloride 0.9% 100 ml @ 25 mls/hr IVPB Q12HR [facility] Rx #:[id number] Furosemide 100 mg In 124.166 89.833 Sodium Chloride 0.9% 90 ml @ 10 MG/HR 10 mls/hr IV .Q10H PAUL Rx#: [id number] Heparin Sod,Pork in 0.45% 214.121 NaCl 25,000 unit In 0.45 % NaCl 1 250ml.bag @ 12 UNITS/KG/HR 5.933 mls/hr IV .Q24H PAUL Rx#: [id number] Oral 500 Output: Urine 2160 1870 150 Other: Voiding Method Indwelling Catheter Indwelling Catheter # Bowel Movements 0 - Labs CBC & Chem 7: 06/21/23 04:58 06/21/23 04:58 Labs: Abnormal Lab Results - Last 24 Hours (Table) 06/20/23 06/20/23 06/20/23 Range/Units 11:01 16:03 20:12 WBC (3.8-10.6) k/uL RBC (3.80-5.40) m/uL Hgb (11.4-16.0) gm/dL Hct (34.0-46.0) % RDW (11.5-15.5) % PT (10.0-12.5) sec INR (<1.2) APTT (22.0-30.0) sec Chloride (98-107) mmol/L Carbon Dioxide (22-30) mmol/L BUN (7-17) mg/dL Creatinine (0.52-1.04) mg/dL POC Glucose (mg/dL) 303 H 309 H 361 H (70-110) mg/dL 06/21/23 06/21/23 06/21/23 Range/Units 04:58 04:58 04:58 WBC 15.1 H (3.8-10.6) k/uL RBC 2.91 L (3.80-5.40) m/uL Hgb 9.2 L (11.4-16.0) gm/dL Hct 29.0 L (34.0-46.0) % RDW 15.8 H (11.5-15.5) % PT 29.2 H (10.0-12.5) sec INR 3.0 H (<1.2) APTT 72.4 H (22.0-30.0) sec Chloride 90 L (98-107) mmol/L Carbon Dioxide 39 H (22-30) mmol/L BUN 50 H (7-17) mg/dL Creatinine 1.11 H (0.52-1.04) mg/dL POC Glucose (mg/dL) (70-110) mg/dL
[2023-06-21 11:38] LABS: Glucose,Whole Blood 157 mg/dL (70-110)
--- NOTE | 2023-06-21 12:18 | P.PN ---
Progress Note - Text Patient has severe mitral stenosis as well as atrial fibrillation with RVR She underwent electrical cardioversion successfully after an amiodarone IV bolus She has maintained sinus rhythm on oral amiodarone Continue beta-blockers and oral amiodarone and keep heart rates below 60 bpm to minimize symptoms related to mitral stenosis Coumadin as the anticoagulant in view of severe mitral stenosis as needed follow-up
--- NOTE | 2023-06-21 13:40 | P.PN ---
Subjective Progress Note Date: 06/21/23 This is a very pleasant 82-year-old female patient with a known history of chronic bronchial asthma, mitral valve prolapse, hypertension, hyperlipidemia, CAD with previous stent, and a lifelong non-smoker. She was just recently discharged from here on the 2023 after being treated for COVID-19 pneum onia. She did received remdesivir, bronchodilators and steroids. She is presented back to the emergency room this morning June 09, 2023 with complaints of increasing shortness of breath cough and congestion that started last evening. She did utilize her 's home oxygen without much improvement. She herself is not on home oxygen. X-ray shows patchy bilateral lung infiltrates compatible with atypical pneumonia possibly ongoing COVID-pneumonia. Suspect some underlying interstitial lung disease as well. White count 16.9. Hemoglobin 10.2. Platelets 265. Sodium 137. Potassium 4.1. Bicarb 29. BUN 21. Creatinine 0.51. proBNP 2430. AST 69. ALT 41. Procalcitonin 0.12. She is seen today in the emergency room in consultation. She is sitting up in the stretcher. Awake and alert in no acute distress. Maintaining O2 saturations in the upper 90s on 2 L/min per nasal cannula. She is afebrile. Hemodynamically stable. The patient is seen today June 10, 2023 in follow-up on the regular medical floor. She is currently sitting up in bed. Awake and alert in no acute distre ss. She still has a loose congested cough. Still dyspneic with conversation. Dyspneic with minimal exertion. She is maintaining O2 saturation in the 90s on 3 L/min per nasal cannula. No IV fluids. Her procalcitonin was 0.12. She is continued on vancomycin and cefepime. Her COVID screen today is positive still. Chest x-ray continues to show patchy bilateral infiltrates stable compared to p revious. She remains on bronchodilators and steroids. White count 18.9. Hemoglobin 9.5. Platelets 239. Sodium 140. Potassium 4.3. Bicarb 23. BUN 26. Creatinine 0.65. Glucose 138. The patient is seen today June 11, 2023 in follow-up on the regular medical floor. She is currently seen at the bedside. Family is in the room. She had a rough night. She was having increasing shortness of breath cough and congestion. She was increased to 5 L/min per nasal cannula. She was initiated on Tessalon Perles. Her procalcitonin was 0.12. She continues on cefepime and vancomycin. She remains on Symbicort, albuterol, Solu-Medrol. Blood cultures revealed no growth. Nasal swab was negative for MRSA. White count 22.3. Hemoglobin 9.7. Platelets 275. Sodium 143. Potassium 4.6. Bicarb 25. BUN 27. Creatinine 0.7. Glucose 156. Remains on diuretics. Progress note dated June 12, 2023. This is an 82-year-old female that I see in the office for asthma. She presented to the hospital, few days ago, with increasing shortness of breath, and had a chest x-ray that was suggestive of pneumonia. The patient recently had coronavirus infection. Currently, the patient's respiratory status is declining, and she is now on Airvo. Airvo settings include 45 L/min, and 55%, with a saturation of 95%. The patient is not receiving any IV fluids. She is getting both cefepime and vancomycin. In addition, the patient is receiving Solu-Medrol, albuterol inhaler, and Symbicort inhaler. She did test positive for coronavirus, but is unclear as to whether or not this is a residual positive test from her recent episode of coronavirus, or she has coronavirus again. We had a long conversation yesterday about CODE STATUS. She would want to be on the mechanical ventilator, if it came to that. No new labs today. Labs from June 10 have been reviewed. This morning's chest x-ray, may be a bit worse. The patient is seen today June 13, 2023 in follow-up on the regular medical floor. She is currently sitting up in a chair at the bedside. Awake and alert in no acute distress. She is breathing a bit easier today compared to yesterday. Her Airvo has been decreased to 45 L and 50% FiO2 with O2 saturation in the low 90s. Blood cultures revealed no growth. Sputum culture revealed no growth. White count 12.2. Hemoglobin 9.0. Platelets 180. Sodium 143. Potassium 4.6. Bicarb 31. BUN 33. Creatinine 0.7. Glucose 175. She is continued on cefepime. Remains on bronchodilators, steroids, vitamin supplements. Remains on oral diuretics. Progress note dated June 14, 2023. 82-year-old female with a history of asthma, and aortic stenosis. The patient was admitted with a diagnosis of possible pneumonia. The patient had a recent episode of coronavirus infection, and did test positive on this admission again for coronavirus. Today she is sitting in a chair next to her hospital bed. She has been weaned off Airvo, down to high flow nasal cannula at 7 L. She is receiving cefepime. She does feel better. Current labs include a white count of 13.2, hemoglobin 8.7, hematocrit 29.2, and a platelet count of 171,000. The patient is seen today June 15, 2023 in follow-up on the regular medical floor. She is currently sitting up in a chair at the bedside. Awake and alert in no acute distress. Breathing a bit easier today compared to yesterday. She is currently on 7 L high flow nasal cannula maintaining O2 saturation in the low 90s. She is continued on cefepime. Blood cultures revealed no growth. Sputum culture reveals no growth. Glucose 246. She remains on bronchodilators and steroids. Remains on oral diuretics. Lovenox for DVT prophylaxis. Continued on multivitamins. The patient is seen today June 16, 2023 in follow-up on the regular medical floo r. She is currently sitting up in a chair at the bedside. Awake and alert. She is back on Airvo high flow oxygen at 40 L and 50% FiO2. She has been very slow to progress. Her chest x-ray shows worsening bilateral infiltrates. She remains on Symbicort, albuterol, Singulair, Solu-Medrol. Remains on antibiotics in the form of cefepime. Continued on vitamin supplements. Remains on oral diuretics. Doppler of the lower extremities are negative for DVT. Blood cultures revealed no growth. Sputum culture revealed no growth. White count 16.4. Hemoglobin 8.7. Platelets 149. Sodium 145. Potassium 4.4. Bicarb 36. BUN 35. Creatinine 0.6. Glucose 178. AST 57. ALT 58. Lovenox for DVT prophylaxis. On today's evaluation of 06/17/2023, I am seeing the patient for a follow-up. The patient remains hypoxic with a chest x-ray showing diffuse bilateral pulmonary filtrates consistent with either cardiogenic versus noncardiogenic pulmonary edema. The patient diffuse airspace pulmonary filtrates throughout the lung stoll bilaterally. Noted the patient was hospitalized approximate 2 to 3 weeks ago for COVID-19 related pneumonia and CHF and the patient was treated and the chest x-ray prior to her discharge showed complete clearing. She is also noted to have mitral stenosis. For now, the patient is on high flow oxygen utilizing Airvo system with a flow of 40 L and FiO2 of 60%. The Doppler of the lower extremity was done and showed no evidence of any DVT and this was done on 06/16/2023. The patient is afebrile. The patient is hemodynamically stable. The patient remains on bronchodilators and the patient is currently on Ventolin HFA 4 times a day, Symbicort as maintenance the patient is empirically covered with IV cefepime and she is also on IV Solu-Medrol 60 mg every 6 hours. Suggested starting the patient on Lasix drip to optimize her volume status. Her most recent echocardiogram that was done on 05/27/2023 showed a preserved LV function. Nevertheless, the patient had moderate thickening and calcification of the anterior and the posterior mitral valve leaflet and the mitral valve was severely stenotic. There was mild aortic stenosis in addition. Right vent ricular systolic pressure was diminished to be around 58. There is severe LA dilatation. On today's evaluation of 06/17/2022, the patient got transferred to the intensive care unit. I attended on this patient as the patient developed shortness of breath and acute tachycardia and the patient was found to be in new onset atrial fibrillation with rapid ventricular response. Heart rate was around 170. The patient was still maintaining her home blood pressure. She was transferred to the ICU and the patient was started on amiodarone initially a bolus of 150 mg was given. During this time, the patient developed some hypotension with a systolic blood pressure in the low 80s. Based on that, cardiology was involved and the patient was immediately cardioverted. The patient underwent DC cardiov ersion that was successful and the patient is currently back in normal sinus rhythm. Amiodarone is running at 1 mg/min at this point in time. At the same time, the patient remains on Lasix drip at 5 mg an hour. The fluid balance has been negative at least 3 L over the past 24 hours. Chest x-ray still showing diffuse bilateral pulmonary filtrates consistent with pulmonary edema. Noncardiogenic cause of pulm edema is also considered although I favor valvular heart disease with secondary atrial fibrillation and heart failure. The patient has severe mitral stenosis. WBC count is at 22 with a hemoglobin 9.1 and a platelet count of 180. Potassium level is at 2.7 needs to be replaced with a BUN of 50 and a creatinine of 0.9 and a sodium levels at 137. Blood sugars also elevated this morning at 363. The patient was also started on IV heparin. During the process, the patient remained alert and awake. She feels less short of breath post cardioversion. Family has been updated periodically on her condition. At this point in time, the patient is on metoprolol 100 mg p.o. 3 times daily. The patient is also on amiodarone drip and IV heparin. The patient is post cardioversion. The patient is receiving IV cefepime and IV Solu-Medrol. On today's evaluation of 06/19/2023, I am seeing the patient for a follow-up. The patient is sitting up on the chair and the patient continues to be on high flow oxygen and currently she is on 35 L with an FiO2 of 35%. Oxygenation is improved and the patient is gradually being weaned off on the high flow and the patient will be attempted on nasal cannula. Chest x-ray still showing diffuse bilateral pulmonary filtrates consistent with pulmonary edema. The patient remains on amiodarone drip and the cardiac rhythm has remained sinus throughout the day the patient remains on IV heparin. The patient is post cardioversion. At the same time, the patient is being diuresed with IV Lasix. The patient remains on Lasix drip at 10 mg an hour. Fluid balance is -732 cc and overall fluid balance is -4 L over the past 24 hours. WBC count at 17.7, hemoglobin of 8.8, potassium level is at 4.9 and has been replaced. Sodium is at 137 with a B UN of 47 and a creatinine of 0.7. Remains on IV cefepime. Remains on IV Solu- Medrol. Remains on rest of the medications. Discussed the case with cardiology. Will transition this patient to warfarin for valvular A-fib. She is awake and alert. She denies having any specific complaints. She reports improvement in her overall respiratory status. On today's evaluation of 06/20/2023, the patient is on oxygen at 15 L nasal cannula with a pulse ox of 94%. She is calm and comfortable. She feels that she is gradually improving. Her chest x-ray shows slight improvement in the diffuse bilateral pulmonary filtrates compared to yesterday's chest x-ray. The patient continues to be on Lasix drip at 10 mg an hour and the fluid balance is -2.9 L over the past 24 hours. The serum bicarb is up to 40. Sodium is at 137, BUN is at 57 with a creatinine of 0.69. WBC count is at 15.6 with a hemoglobin 9 and a platelet count of 170. No chest pain. Cardiac rhythm remained sinus. She is on oral amiodarone. She is on IV heparin and the patient was started on anticoagulation with warfarin. She is also on metoprolol at a dose of 50 mg twice daily. On 06/21/2023, the patient is being seen for a follow-up. The patient has been weaned down to 2 L of oxygen by nasal cannula. Reports less shortness of breath. Chest x-ray continues to show slow but ongoing improvement in the bilateral pulmonary filtrates. The patient remains on Lasix drip which is running at 10 mg an hour. Overall fluid balance over the past 24 hours has been -2.9 L and the patient is 2.7 L negative for today. BUN is 50 with a creatinine of 1.1. INR is at 3.0 as the patient is being anticoagulated with warfarin. WB C count is 15.1 with a hemoglobin 9.2. No fever. No chills. Remains on prednisone 20 mg p.o. daily. Remains on IV cefepime which is essentially an empiric antibiotic coverage. Cardiac rhythm is sinus. Patient remains on amiodarone 4 mg p.o. twice a day and metoprolol 50 mg twice a day. Awake and alert and communicating. No significant shortness of breath at today's evaluation. Objective - Vital Signs Vital signs: Vital Signs Temp 98.4 F 06/21/23 12:00 Pulse 72 06/21/23 12:00 Resp 25 H 06/21/23 12:00 BP 104/70 06/21/23 12:00 Pulse Ox 96 06/21/23 12:00 FiO2 35 06/20/23 13:00 Intake & Output 06/20/23 06/21/23 06/21/23 18:59 06:59 18:59 Intake Total 985.881 5029.954 147.167 Output Total 2160 1870 475 Balance -1865.834 -846.046 -327.833 Weight 50.1 kg Intake: IV 170 120 60 0.9 Normal Saline @ KVO 120 120 60 10mL/hr Cefepime 1 gm In Sodium 50 Chloride 0.9% 50 ml @ 12. 5 mls/hr IVPB Q12HR [facility] Rx#:[id number] Intake, IV Titration 124.166 403.954 87.167 Amount Cefepime 2 gm In Sodium 100 Chloride 0.9% 100 ml @ 25 mls/hr IVPB Q12HR [facility] Rx #:[id number] Furosemide 100 mg In 124.166 89.833 87.167 Sodium Chloride 0.9% 90 ml @ 10 MG/HR 10 mls/hr IV .Q10H [facility] Rx#: [id number] Heparin Sod,Pork in 0.45% 214.121 NaCl 25,000 unit In 0.45 % NaCl 1 250ml.bag @ 12 UNITS/KG/HR 5.933 mls/hr IV .Q24H [facility]UL Rx#: [id number] Oral 500 Output: Urine 2160 1870 475 Other: Voiding Method Indwelling Catheter Indwelling Catheter Indwelling Catheter # Bowel Movements 0 - Exam GENERAL EXAM: Alert, 82-year-old white female appearing stated age, comfortable on 2 L of oxygen by nasal cannula HEAD: Normocephalic and atraumatic EYES: Normal reaction of pupils, equal size. NOSE: Clear with pink turbinates. THROAT: No erythema or exudates. NECK: No masses, no JVD. CHEST: No chest wall deformity. LUNGS: Equal air entry with diffuse rhonchi and crackles. no conversational dyspnea or accessory muscle use while at rest CVS: S1 and S2 normal with grade 4 diastolic/systolic murmur, regular rhythm. No other extra heart sounds ABDOMEN: No hepatosplenomegaly, active bowel sounds, no guarding or rigidity. SPINE: No scoliosis or deformity SKIN: No rashes CENTRAL NERVOUS SYSTEM: No focal deficits, tone is normal in all 4 extremities. EXTREMITIES: There is no peripheral edema, clubbing, or cyanosis. Peripheral pulses are intact. - Labs CBC & Chem 7: 06/21/23 04:58 06/21/23 10:46 Labs: Abnormal Lab Results - Last 24 Hours (Table) 06/20/23 06/20/23 06/21/23 Range/Units 16:03 20:12 04:58 WBC 15.1 H (3.8-10.6) k/uL RBC 2.91 L (3.80-5.40) m/uL Hgb 9.2 L (11.4-16.0) gm/dL Hct 29.0 L (34.0-46.0) % RDW 15.8 H (11.5-15.5) % PT (10.0-12.5) sec INR (<1.2) APTT (22.0-30.0) sec Chloride (98-107) mmol/L Carbon Dioxide (22-30) mmol/L BUN (7-17) mg/dL Creatinine (0.52-1.04) mg/dL POC Glucose (mg/dL) 309 H 361 H (70-110) mg/dL 06/21/23 06/21/23 06/21/23 Range/Units 04:58 04:58 11:37 WBC (3.8-10.6) k/uL RBC (3.80-5.40) m/uL Hgb (11.4-16.0) gm/dL Hct (34.0-46.0) % RDW (11.5-15.5) % PT 29.2 H (10.0-12.5) sec INR 3.0 H (<1.2) APTT 72.4 H (22.0-30.0) sec Chloride 90 L (98-107) mmol/L Carbon Dioxide 39 H (22-30) mmol/L BUN 50 H (7-17) mg/dL Creatinine 1.11 H (0.52-1.04) mg/dL POC Glucose (mg/dL) 157 H (70-110) mg/dL Assessment and Plan Plan: Acute hypoxic respiratory failure most likely secondary to pulmonary edema related to her valvular heart disease. The patient has severe mitral stenosis, mild aortic stenosis in addition to severe pulm hypertension. LV function is preserved. Other less likely possibilities include hospital-acquired pneumonia versus ongoing/worsening COVID-19 pneumonia. The patient developed diffuse bilateral pulmonary filtrates. She is also covered with cefepime and IV Solu-M edrol. The patient was started Lasix drip at 10 mg an hour. Fluid balance remains negative. Slight improvement in the chest x-ray findings. Oxygenation continues to improve and the patient is currently on 2 L of oxygen by nasal cannula. The patient is diuresing aggressively. Cardiac rhythm remained sinus. New onset atrial fibrillation with RVR. The patient became hemodynamically unstable/hypotensive and the patient received cardioversion. Currently back to normal sinus rhythm. Currently loaded with amiodarone and amiodarone as a maintenance. This will be switched to oral amiodarone. The patient is also on metoprolol 50 mg p.o. twice a day. Cardiac rhythm is sinus. Patient is an ticoagulated with warfarin and INR is therapeutic at this point in time. Acute exacerbation of mild intermittent chronic bronchial asthma Recent discharge on May 31, 2023 for COVID-19 pneumonia, treated with remdesivir. Still testing positive. Noted the patient has complete clearing of the bilateral pulmonary filtrates on previous hospitalization and the chest x- ray was initially clear prior to her discharge. History of coronary artery disease with previous PCI/stent x3 History of hyperlipidemia History of hypertension Moderate to severe mitral calcification and moderate to severe mitral stenosis and mild aortic regurgitation and stenosis. LV function is preserved and the patient has an ejection fraction of 60 to 65%. Pulmonary hypertension WHO class II Rheumatoid arthritis History of hypothyroidism Lifelong non-smoker Plan: The patient is currently in the intensive care unit for close monitoring. Will monitor oxygenation, the patient is improved and the patient is currently down to 2 L of oxygen by nasal cannula. Anticoagulation with warfarin and patient's INR is therapeutic at this point. Continue amiodarone 400 mg p.o. twice a day Continue metoprolol 50 mg p.o. twice a day Continue Lasix drip at 10 mg an hour for another 24 hours Replace potassium Monitor chest x-ray Titrate the FiO2 as tolerated Continue n prednisone 20 mg p.o. daily Continue IV cefepime Dopplers revealed no DVT Condition is guarded We will continue to follow Case was discussed with the family at the bedside. Repeat chest x-ray in the morning and will continue to follow.
[2023-06-21 15:58] LABS: Glucose,Whole Blood 192 mg/dL (70-110)
[2023-06-21] MEDS: WARFARIN 1 MG TAB PO ONE (16:52)
[2023-06-21] MEDS: LIDOCAINE 4% PATCH TOPICAL SCH (18:52)
[2023-06-21 20:25] LABS: Glucose,Whole Blood 185 mg/dL (70-110)
--- NOTE | 2023-06-22 00:18 | P.PN ---
Subjective 82-year-old female, history of hypertension, hyperlipidemia, mitral valve prolapse, hypothyroidism, rheumatoid arthritis, CHF present to the emergency department with difficulty breathing. Onset was yesterday. Patient has had a cough for over a week. Patient has occasional yellow sputum. Patient did have COVID-19 pneumonia couple weeks ago and was in the hospital and discharged home. Patient is unaware of any fevers at home. Patient has chronic interstitial lung disease. She was just recently discharged from here on the 2023 after being treated for COVID-19 pneumonia. She did received remdesivir, bronchodilators and steroids. She is presented back to the emergency room this morning June 09, 2023 with complaints of increasing shortness of breath cough and congestion that started last evening. She did utilize her 's home oxygen without much improvement. She herself is not on home oxygen. X-ray shows patchy bilateral lung infiltrates compatible with atypical pneumonia possibly ongoing COVID-pneumonia. Suspect some underlying interstitial lung disease as well. White count 16.9. Hemoglobin 10.2. Platelets 265. Sodium 137. Potassium 4.1. Bicarb 29. BUN 21. Creatinine 0.51. proBNP 2430. AST 69. ALT 41. Procalcitonin 0.12. 06/10/2023 Patient awake and alert She has more shortness of breath today improved with higher oxygen from 2 up to 3 L/min Repeat chest x-ray showing patchy bilateral infiltrates, stable exam. No fever today but hemodynamically stable BMP is unremarkable Patient remains on IV cefepime, IV vancomycin and IV Solu-Medrol 60 mg and normal saline 75 mL/h 06/11/2023 Patient breathing is worse today, she is requiring nonrebreather 60 L/min with FiO2 of 90% and also she is tachypneic and anxious, As per staff patient and family declining intubation and if she deteriorates she might need to be placed on BiPAP WBC is 22.3, hemoglobin stable 9.7 She is currently covered with IV cefepime and IV vancomycin and IV Solu-Medrol. IV fluids was discontinued 06/12/2023 patient awake and alert, in mild distress because of her tachypnea but is improving Oxygen requirement down to 45 L/m No other new complaints. She remains on IV Solu-Medrol 60 mg in the broad-spectrum antibiotics cefepime and IV vancomycin 06/13/2023 Patient sitting up in chair, her breathing rate is similar to yesterday She is still on high flow nasal cannula at 45 L/min She remains on IV cefepime and Vanco vancomycin, she is on IV Solu-Medrol. No IV fluid Daughter at bedside and all questions answered and they are agreeable with the plan I am resuming the care of the patient on 06/18/2023 Patient was looking tired today, awake and alert but she was short of breath Although oxygen saturation show improvement down to 40 L/min compared to yesterday 45 L/min. After rounding I got a call from the nurse patient is becoming tachycardic, EKG showing A-fib and RVR. Heart rate went up to 174 and patient was hypotensive therefore we transferred the patient to the intensive care unit and amiodarone bolus and drip was started. Cardiology team evaluated the patient and patient is status post cardioversion which she changed back to sinus rhythm. Hypokalemia 2.7 been replaced. Also patient started on metoprolol 100 mg 3 times daily and IV heparin drip. Currently patient looks more comfortable and heart rate and blood pressure improved and stabilized, heart rate is in 65. Chest x-ray repeated today showing bilateral infiltrates slightly better compared to last chest x-ray, consistent with pulmonary edema with proBNP is elevated to 430. While pro- Calcitonin is low or mildly elevated 0.12. Patient also kept on IV Solu-Medrol 40 mg instead of 60 mg yesterday. Is given twice daily. Glucose is elevated and patient started on Levemir 10 units daily 06/20/2023 Patient seen and examined at bedside Related is improving today her oxygen requirement dropped from 15 L to 4 L IV Solu-Medrol switched to prednisone 20 mg daily. Patient continued with IV heparin drip and Coumadin for her new onset A-fib. Currently rate controlled She complains from constipation Colace added No other new complaint 06/21/2023 Patient oxygen status; from 15 L/min 2 days ago and currently on 2 L oxygen via nasal cannula She is on constipation placed on Colace She has some low back pain, ordered lidocaine She is on cefepime and prednisone 20 mg Continue with anticoagulation for warfarin and monitor INR after 2-3 Objective - Vital Signs Vital signs: Vital Signs Temp 98.4 F 06/21/23 12:00 Pulse 72 06/21/23 12:00 Resp 25 H 06/21/23 12:00 BP 104/70 06/21/23 12:00 Pulse Ox 96 06/21/23 12:00 FiO2 35 06/20/23 13:00 Intake & Output 06/20/23 06/21/23 06/21/23 18:59 06:59 18:59 Intake Total 951.446 0533.954 147.167 Output Total 2160 1870 475 Balance -1865.834 -846.046 -327.833 Weight 50.1 kg Intake: IV 170 120 60 0.9 Normal Saline @ KVO 120 120 60 10mL/hr Cefepime 1 gm In Sodium 50 Chloride 0.9% 50 ml @ 12. 5 mls/hr IVPB Q12HR PAUL Rx#:[id number] Intake, IV Titration 124.166 403.954 87.167 Amount Cefepime 2 gm In Sodium 100 Chloride 0.9% 100 ml @ 25 mls/hr IVPB Q12HR PAUL Rx #:[id number] Furosemide 100 mg In 124.166 89.833 87.167 Sodium Chloride 0.9% 90 ml @ 10 MG/HR 10 mls/hr IV .Q10H PAUL Rx#: [id number] Heparin Sod,Pork in 0.45% 214.121 NaCl 25,000 unit In 0.45 % NaCl 1 250ml.bag @ 12 UNITS/KG/HR 5.933 mls/hr IV .Q24H PAUL Rx#: [id number] Oral 500 Output: Urine 2160 1870 475 Other: Voiding Method Indwelling Catheter Indwelling Catheter Indwelling Catheter # Bowel Movements 0 - Exam GENERAL: The patient is alert and oriented x3, not in any acute distress. Well developed, well nourished. HEENT: Pupils are round and equally reacting to light. EOMI. No scleral icterus. No conjunctival pallor. Normocephalic, atraumatic. No pharyngeal erythema. No thyromegaly. CARDIOVASCULAR: S1 and S2 present. No murmurs, rubs, or gallops. -PULMONARY: Chest is clear to auscultation, no wheezing , bilateral crackles. Tachypneic, mild ABDOMEN: Soft, nontender, nondistended, normoactive bowel sounds. No palpable organomegaly. MUSCULOSKELETAL: No joint swelling or deformity. EXTREMITIES: No cyanosis, clubbing, or pedal edema. NEUROLOGICAL: Gross neurological examination did not reveal any focal deficits. SKIN: No rashes. no petechiae. - Labs CBC & Chem 7: 06/21/23 04:58 06/21/23 10:46 Labs: Abnormal Lab Results - Last 24 Hours (Table) 06/20/23 06/20/23 06/21/23 Range/Units 16:03 20:12 04:58 WBC 15.1 H (3.8-10.6) k/uL RBC 2.91 L (3.80-5.40) m/uL Hgb 9.2 L (11.4-16.0) gm/dL Hct 29.0 L (34.0-46.0) % RDW 15.8 H (11.5-15.5) % PT (10.0-12.5) sec INR (<1.2) APTT (22.0-30.0) sec Chloride (98-107) mmol/L Carbon Dioxide (22-30) mmol/L BUN (7-17) mg/dL Creatinine (0.52-1.04) mg/dL POC Glucose (mg/dL) 309 H 361 H (70-110) mg/dL 06/21/23 06/21/23 06/21/23 Range/Units 04:58 04:58 11:37 WBC (3.8-10.6) k/uL RBC (3.80-5.40) m/uL Hgb (11.4-16.0) gm/dL Hct (34.0-46.0) % RDW (11.5-15.5) % PT 29.2 H (10.0-12.5) sec INR 3.0 H (<1.2) APTT 72.4 H (22.0-30.0) sec Chloride 90 L (98-107) mmol/L Carbon Dioxide 39 H (22-30) mmol/L BUN 50 H (7-17) mg/dL Creatinine 1.11 H (0.52-1.04) mg/dL POC Glucose (mg/dL) 157 H (70-110) mg/dL Assessment and Plan Assessment: 1. Acute hypoxic respiratory failure; multifactorial; hospital-acquired pneumonia versus --Increased oxygen requirement to high flow nasal cannula acute diastolic heart failure with ejection fraction 60 to 65% --Lasix drip 2. Acute exacerbation of asthma -IV Solu-Medrol 40 mg every 12 hours; DuoNeb nebulizer treatments 4 times daily and as needed 3. Mild LETICIA; hold off on IV fluid therapy given worsening chest congestion; we will monitor renal function electrolytes closely; avoid nephrotoxins and hypotension 4. Hospital-acquired pneumonia;-- Pulmonary on board and patient has been placed on IV cefepime and vancomycin 5. New onset A-fib and RVR, s/p cardioversion Currently on metoprolol 100 mg and amiodarone. Also patient was started on IV heparin Which is switched to warfarin pharmacy to dose 6. Hypertension; verapamil SR 120 mg daily; metoprolol 100 mg 3 times daily 7. Hyperlipidemia; Lipitor 40 mg daily 8. Hypothyroidism; levothyroxine 112 mcg Saturday through Saturday and 56 mcg Saturday and Saturday 9. Coronary artery disease/CHF; status post PCI/stent x 3; patient remains on aspirin, Lipitor, Imdur -- Lasix 40 mg daily and Farxiga 5 mg daily 10. Mitral stenosis; patient has moderate to severe mitral calcifications causing moderate to severe mitral stenosis and mild aortic regurgitation and stenosis -- Last echocardiogram reveals an EF of 60 to 65% DVT prophylaxis; SCDs/subcu heparin CODE STATUS; full code
[2023-06-22 05:27] LABS: Anisocytosis Slight; HGB 9.1 gm/dL (11.4-16.0); Hypochromasia Moderate; MCH 31.9 pg (25.0-35.0); MCHC 31.4 g/dL (31.0-37.0); MCV 101.4 fL (80.0-100.0); Macrocytosis Slight; Mean Platelet Volume 9.1; Platelet Count 205 k/uL (150-450); RBC 2.86 m/uL (3.80-5.40); RDW 16.3 % (11.5-15.5); WBC 12.1 k/uL (3.8-10.6)
[2023-06-22 05:36] LABS: African American GFR (CKD) 40 (>60 ml/min/1.73 sqM); Anion Gap 5 mmol/L; Blood Urea Nitrogen 60 mg/dL (7-17); Calcium 8.9 mg/dL (8.4-10.2); Carbon Dioxide 38 mmol/L (22-30); Chloride 92 mmol/L (98-107); Glucose 80 mg/dL (74-99); Non-African American GFR(CKD) 35 (>60 ml/min/1.73 sqM); Potassium 4.1 mmol/L (3.5-5.1); Sodium 135 mmol/L (137-145)
[2023-06-22 05:38] LABS: INR 4.8 (<1.2); Prothrombin Time 47.2 sec (10.0-12.5)
[2023-06-22 06:32] LABS: Glucose,Whole Blood 88 mg/dL (70-110)
[2023-06-22] MEDS ORDERED: LIDOCAINE 4% PATCH TOPICAL SCH (09:00)
[2023-06-22] MEDS: FUROSEMIDE 40 MG TAB PO STA (09:40)
[2023-06-22 10:57] LABS: Glucose,Whole Blood 239 mg/dL (70-110)
--- NOTE | 2023-06-22 14:12 | P.PN ---
Subjective Progress Note Date: 06/22/23 This is a very pleasant 82-year-old female patient with a known history of chronic bronchial asthma, mitral valve prolapse, hypertension, hyperlipidemia, CAD with previous stent, and a lifelong non-smoker. She was just recently discharged from here on the 2023 after being treated for COVID-19 pneum onia. She did received remdesivir, bronchodilators and steroids. She is presented back to the emergency room this morning June 09, 2023 with complaints of increasing shortness of breath cough and congestion that started last evening. She did utilize her 's home oxygen without much improvement. She herself is not on home oxygen. X-ray shows patchy bilateral lung infiltrates compatible with atypical pneumonia possibly ongoing COVID-pneumonia. Suspect some underlying interstitial lung disease as well. White count 16.9. Hemoglobin 10.2. Platelets 265. Sodium 137. Potassium 4.1. Bicarb 29. BUN 21. Creatinine 0.51. proBNP 2430. AST 69. ALT 41. Procalcitonin 0.12. She is seen today in the emergency room in consultation. She is sitting up in the stretcher. Awake and alert in no acute distress. Maintaining O2 saturations in the upper 90s on 2 L/min per nasal cannula. She is afebrile. Hemodynamically stable. The patient is seen today June 10, 2023 in follow-up on the regular medical floor. She is currently sitting up in bed. Awake and alert in no acute distre ss. She still has a loose congested cough. Still dyspneic with conversation. Dyspneic with minimal exertion. She is maintaining O2 saturation in the 90s on 3 L/min per nasal cannula. No IV fluids. Her procalcitonin was 0.12. She is continued on vancomycin and cefepime. Her COVID screen today is positive still. Chest x-ray continues to show patchy bilateral infiltrates stable compared to p revious. She remains on bronchodilators and steroids. White count 18.9. Hemoglobin 9.5. Platelets 239. Sodium 140. Potassium 4.3. Bicarb 23. BUN 26. Creatinine 0.65. Glucose 138. The patient is seen today June 11, 2023 in follow-up on the regular medical floor. She is currently seen at the bedside. Family is in the room. She had a rough night. She was having increasing shortness of breath cough and congestion. She was increased to 5 L/min per nasal cannula. She was initiated on Tessalon Perles. Her procalcitonin was 0.12. She continues on cefepime and vancomycin. She remains on Symbicort, albuterol, Solu-Medrol. Blood cultures revealed no growth. Nasal swab was negative for MRSA. White count 22.3. Hemoglobin 9.7. Platelets 275. Sodium 143. Potassium 4.6. Bicarb 25. BUN 27. Creatinine 0.7. Glucose 156. Remains on diuretics. Progress note dated June 12, 2023. This is an 82-year-old female that I see in the office for asthma. She presented to the hospital, few days ago, with increasing shortness of breath, and had a chest x-ray that was suggestive of pneumonia. The patient recently had coronavirus infection. Currently, the patient's respiratory status is declining, and she is now on Airvo. Airvo settings include 45 L/min, and 55%, with a saturation of 95%. The patient is not receiving any IV fluids. She is getting both cefepime and vancomycin. In addition, the patient is receiving Solu-Medrol, albuterol inhaler, and Symbicort inhaler. She did test positive for coronavirus, but is unclear as to whether or not this is a residual positive test from her recent episode of coronavirus, or she has coronavirus again. We had a long conversation yesterday about CODE STATUS. She would want to be on the mechanical ventilator, if it came to that. No new labs today. Labs from June 10 have been reviewed. This morning's chest x-ray, may be a bit worse. The patient is seen today June 13, 2023 in follow-up on the regular medical floor. She is currently sitting up in a chair at the bedside. Awake and alert in no acute distress. She is breathing a bit easier today compared to yesterday. Her Airvo has been decreased to 45 L and 50% FiO2 with O2 saturation in the low 90s. Blood cultures revealed no growth. Sputum culture revealed no growth. White count 12.2. Hemoglobin 9.0. Platelets 180. Sodium 143. Potassium 4.6. Bicarb 31. BUN 33. Creatinine 0.7. Glucose 175. She is continued on cefepime. Remains on bronchodilators, steroids, vitamin supplements. Remains on oral diuretics. Progress note dated June 14, 2023. 82-year-old female with a history of asthma, and aortic stenosis. The patient was admitted with a diagnosis of possible pneumonia. The patient had a recent episode of coronavirus infection, and did test positive on this admission again for coronavirus. Today she is sitting in a chair next to her hospital bed. She has been weaned off Airvo, down to high flow nasal cannula at 7 L. She is receiving cefepime. She does feel better. Current labs include a white count of 13.2, hemoglobin 8.7, hematocrit 29.2, and a platelet count of 171,000. The patient is seen today June 15, 2023 in follow-up on the regular medical floor. She is currently sitting up in a chair at the bedside. Awake and alert in no acute distress. Breathing a bit easier today compared to yesterday. She is currently on 7 L high flow nasal cannula maintaining O2 saturation in the low 90s. She is continued on cefepime. Blood cultures revealed no growth. Sputum culture reveals no growth. Glucose 246. She remains on bronchodilators and steroids. Remains on oral diuretics. Lovenox for DVT prophylaxis. Continued on multivitamins. The patient is seen today June 16, 2023 in follow-up on the regular medical floo r. She is currently sitting up in a chair at the bedside. Awake and alert. She is back on Airvo high flow oxygen at 40 L and 50% FiO2. She has been very slow to progress. Her chest x-ray shows worsening bilateral infiltrates. She remains on Symbicort, albuterol, Singulair, Solu-Medrol. Remains on antibiotics in the form of cefepime. Continued on vitamin supplements. Remains on oral diuretics. Doppler of the lower extremities are negative for DVT. Blood cultures revealed no growth. Sputum culture revealed no growth. White count 16.4. Hemoglobin 8.7. Platelets 149. Sodium 145. Potassium 4.4. Bicarb 36. BUN 35. Creatinine 0.6. Glucose 178. AST 57. ALT 58. Lovenox for DVT prophylaxis. On today's evaluation of 06/17/2023, I am seeing the patient for a follow-up. The patient remains hypoxic with a chest x-ray showing diffuse bilateral pulmonary filtrates consistent with either cardiogenic versus noncardiogenic pulmonary edema. The patient diffuse airspace pulmonary filtrates throughout the lung stoll bilaterally. Noted the patient was hospitalized approximate 2 to 3 weeks ago for COVID-19 related pneumonia and CHF and the patient was treated and the chest x-ray prior to her discharge showed complete clearing. She is also noted to have mitral stenosis. For now, the patient is on high flow oxygen utilizing Airvo system with a flow of 40 L and FiO2 of 60%. The Doppler of the lower extremity was done and showed no evidence of any DVT and this was done on 06/16/2023. The patient is afebrile. The patient is hemodynamically stable. The patient remains on bronchodilators and the patient is currently on Ventolin HFA 4 times a day, Symbicort as maintenance the patient is empirically covered with IV cefepime and she is also on IV Solu-Medrol 60 mg every 6 hours. Suggested starting the patient on Lasix drip to optimize her volume status. Her most recent echocardiogram that was done on 05/27/2023 showed a preserved LV function. Nevertheless, the patient had moderate thickening and calcification of the anterior and the posterior mitral valve leaflet and the mitral valve was severely stenotic. There was mild aortic stenosis in addition. Right vent ricular systolic pressure was diminished to be around 58. There is severe LA dilatation. On today's evaluation of 06/17/2022, the patient got transferred to the intensive care unit. I attended on this patient as the patient developed shortness of breath and acute tachycardia and the patient was found to be in new onset atrial fibrillation with rapid ventricular response. Heart rate was around 170. The patient was still maintaining her home blood pressure. She was transferred to the ICU and the patient was started on amiodarone initially a bolus of 150 mg was given. During this time, the patient developed some hypotension with a systolic blood pressure in the low 80s. Based on that, cardiology was involved and the patient was immediately cardioverted. The patient underwent DC cardiov ersion that was successful and the patient is currently back in normal sinus rhythm. Amiodarone is running at 1 mg/min at this point in time. At the same time, the patient remains on Lasix drip at 5 mg an hour. The fluid balance has been negative at least 3 L over the past 24 hours. Chest x-ray still showing diffuse bilateral pulmonary filtrates consistent with pulmonary edema. Noncardiogenic cause of pulm edema is also considered although I favor valvular heart disease with secondary atrial fibrillation and heart failure. The patient has severe mitral stenosis. WBC count is at 22 with a hemoglobin 9.1 and a platelet count of 180. Potassium level is at 2.7 needs to be replaced with a BUN of 50 and a creatinine of 0.9 and a sodium levels at 137. Blood sugars also elevated this morning at 363. The patient was also started on IV heparin. During the process, the patient remained alert and awake. She feels less short of breath post cardioversion. Family has been updated periodically on her condition. At this point in time, the patient is on metoprolol 100 mg p.o. 3 times daily. The patient is also on amiodarone drip and IV heparin. The patient is post cardioversion. The patient is receiving IV cefepime and IV Solu-Medrol. On today's evaluation of 06/19/2023, I am seeing the patient for a follow-up. The patient is sitting up on the chair and the patient continues to be on high flow oxygen and currently she is on 35 L with an FiO2 of 35%. Oxygenation is improved and the patient is gradually being weaned off on the high flow and the patient will be attempted on nasal cannula. Chest x-ray still showing diffuse bilateral pulmonary filtrates consistent with pulmonary edema. The patient remains on amiodarone drip and the cardiac rhythm has remained sinus throughout the day the patient remains on IV heparin. The patient is post cardioversion. At the same time, the patient is being diuresed with IV Lasix. The patient remains on Lasix drip at 10 mg an hour. Fluid balance is -732 cc and overall fluid balance is -4 L over the past 24 hours. WBC count at 17.7, hemoglobin of 8.8, potassium level is at 4.9 and has been replaced. Sodium is at 137 with a B UN of 47 and a creatinine of 0.7. Remains on IV cefepime. Remains on IV Solu- Medrol. Remains on rest of the medications. Discussed the case with cardiology. Will transition this patient to warfarin for valvular A-fib. She is awake and alert. She denies having any specific complaints. She reports improvement in her overall respiratory status. On today's evaluation of 06/20/2023, the patient is on oxygen at 15 L nasal cannula with a pulse ox of 94%. She is calm and comfortable. She feels that she is gradually improving. Her chest x-ray shows slight improvement in the diffuse bilateral pulmonary filtrates compared to yesterday's chest x-ray. The patient continues to be on Lasix drip at 10 mg an hour and the fluid balance is -2.9 L over the past 24 hours. The serum bicarb is up to 40. Sodium is at 137, BUN is at 57 with a creatinine of 0.69. WBC count is at 15.6 with a hemoglobin 9 and a platelet count of 170. No chest pain. Cardiac rhythm remained sinus. She is on oral amiodarone. She is on IV heparin and the patient was started on anticoagulation with warfarin. She is also on metoprolol at a dose of 50 mg twice daily. On 06/21/2023, the patient is being seen for a follow-up. The patient has been weaned down to 2 L of oxygen by nasal cannula. Reports less shortness of breath. Chest x-ray continues to show slow but ongoing improvement in the bilateral pulmonary filtrates. The patient remains on Lasix drip which is running at 10 mg an hour. Overall fluid balance over the past 24 hours has been -2.9 L and the patient is 2.7 L negative for today. BUN is 50 with a creatinine of 1.1. INR is at 3.0 as the patient is being anticoagulated with warfarin. WB C count is 15.1 with a hemoglobin 9.2. No fever. No chills. Remains on prednisone 20 mg p.o. daily. Remains on IV cefepime which is essentially an empiric antibiotic coverage. Cardiac rhythm is sinus. Patient remains on amiodarone 4 mg p.o. twice a day and metoprolol 50 mg twice a day. Awake and alert and communicating. No significant shortness of breath at today's evaluation. On today's evaluation on 06/22/2023, patient is being seen for a follow-up. The patient is currently on 2 L of oxygen by nasal cannula. Chest x-ray is improving. She has become prerenal due to her aggressive diuresis. Lasix drip will be discontinued today. BUN is at 60 with a creatinine of 1.4. Sodium lev els at 135. Patient is also on anticoagulation with warfarin. INR today is at 4.2. No Coumadin will be given to her today. WBC count is at 12.1 and hemoglobin 9.1. She is feeling weak. No fever. No chest pain. Shortness of breath obviously improving. Remains on IV cefepime. Remains on prednisone 20 mg p.o. daily. Levemir insulin 10 units along with sliding scale coverage. Objective - Vital Signs Vital signs: Vital Signs Temp 97.5 F L 06/22/23 00:00 Pulse 62 06/22/23 13:00 Resp 28 H 06/22/23 13:00 BP 94/41 06/22/23 13:00 Pulse Ox 97 06/22/23 13:00 FiO2 35 06/20/23 13:00 Intake & Output 06/21/23 06/22/23 06/22/23 18:59 06:59 18:59 Intake Total 417.167 345.667 280 Output Total 825 705 400 Balance -407.833 -359.333 -120 Weight 46.2 kg Intake: IV 130 80 40 0.9 Normal Saline @ KVO 130 80 40 10mL/hr Intake, IV Titration 87.167 265.667 Amount Cefepime 2 gm In Sodium 100 Chloride 0.9% 100 ml @ 25 mls/hr IVPB Q12HR [facility] Rx #:[id number] Furosemide 100 mg In 87.167 165.667 Sodium Chloride 0.9% 90 ml @ 10 MG/HR 10 mls/hr IV .Q10H [facility]UL Rx#: [id number] Oral 200 240 Output: Urine 825 705 400 Other: Voiding Method Indwelling Catheter Indwelling Catheter Indwelling Catheter - Exam GENERAL EXAM: Alert, 82-year-old white female appearing stated age, comfortable on 2 L of oxygen by nasal cannula HEAD: Normocephalic and atraumatic EYES: Normal reaction of pupils, equal size. NOSE: Clear with pink turbinates. THROAT: No erythema or exudates. NECK: No masses, no JVD. CHEST: No chest wall deformity. LUNGS: Equal air entry with diffuse rhonchi and crackles. no conversational dyspnea or accessory muscle use while at rest CVS: S1 and S2 normal with grade 4 diastolic/systolic murmur, regular rhythm. No other extra heart sounds ABDOMEN: No hepatosplenomegaly, active bowel sounds, no guarding or rigidity. SPINE: No scoliosis or deformity SKIN: No rashes CENTRAL NERVOUS SYSTEM: No focal deficits, tone is normal in all 4 extremities. EXTREMITIES: There is no peripheral edema, clubbing, or cyanosis. Peripheral p ulses are intact. - Labs CBC & Chem 7: 06/22/23 04:42 06/22/23 04:42 Labs: Abnormal Lab Results - Last 24 Hours (Table) 06/21/23 06/21/23 06/22/23 Range/Units 15:56 20:23 04:37 WBC (3.8-10.6) k/uL RBC (3.80-5.40) m/uL Hgb (11.4-16.0) gm/dL Hct (34.0-46.0) % MCV (80.0-100.0) fL RDW (11.5-15.5) % PT 47.2 H (10.0-12.5) sec INR 4.8 H (<1.2) Sodium (137-145) mmol/L Chloride (98-107) mmol/L Carbon Dioxide (22-30) mmol/L BUN (7-17) mg/dL Creatinine (0.52-1.04) mg/dL POC Glucose (mg/dL) 192 H 185 H (70-110) mg/dL 06/22/23 06/22/23 06/22/23 Range/Units 04:42 04:42 10:55 WBC 12.1 H (3.8-10.6) k/uL RBC 2.86 L (3.80-5.40) m/uL Hgb 9.1 L (11.4-16.0) gm/dL Hct 29.0 L (34.0-46.0) % MCV 101.4 H (80.0-100.0) fL RDW 16.3 H (11.5-15.5) % PT (10.0-12.5) sec INR (<1.2) Sodium 135 L (137-145) mmol/L Chloride 92 L (98-107) mmol/L Carbon Dioxide 38 H (22-30) mmol/L BUN 60 H (7-17) mg/dL Creatinine 1.42 H (0.52-1.04) mg/dL POC Glucose (mg/dL) 239 H (70-110) mg/dL Assessment and Plan Plan: Acute hypoxic respiratory failure most likely secondary to pulmonary edema related to her valvular heart disease. The patient has severe mitral stenosis, mild aortic stenosis in addition to severe pulm hypertension. LV function is preserved. Other less likely possibilities include hospital-acquired pneumonia versus ongoing/worsening COVID-19 pneumonia. The patient developed diffuse bilateral pulmonary filtrates. She is Improved considerably and she is c urrently on 2 L of oxygen by nasal cannula. Chest x-ray is also improving. New onset atrial fibrillation with RVR. The patient became hemodynamically unstable/hypotensive and the patient received cardioversion. Currently back to normal sinus rhythm. Currently loaded with amiodarone and amiodarone as a maintenance. This will be switched to oral amiodarone. The patient is also on metoprolol 50 mg p.o. twice a day. Cardiac rhythm is sinus. Patient is anticoagulated with warfarin and INR is Supratherapeutic and Coumadin will be placed on hold Acute kidney injury, related to prerenal factors secondary to aggressive diuresis. Patient has been negative fluid balance. Acute exacerbation of mild intermittent chronic bronchial asthma Recent discharge on May 31, 2023 for COVID-19 pneumonia, treated with remdesivir. Still testing positive. Noted the patient has complete clearing of the bilateral pulmonary filtrates on previous hospitalization and the chest x- ray was initially clear prior to her discharge. History of coronary artery disease with previous PCI/stent x3 History of hyperlipidemia History of hypertension Moderate to severe mitral calcification and moderate to severe mitral stenosis and mild aortic regurgitation and stenosis. LV function is preserved and the patient has an ejection fraction of 60 to 65%. Pulmonary hypertension WHO class II Rheumatoid arthritis History of hypothyroidism Lifelong non-smoker Plan: Will monitor oxygenation, the patient is improved and the patient is currently down to 2 L of oxygen by nasal cannula. Anticoagulation with warfarin and patient's INR is supratherapeutic and Coumadin will be placed on hold for today Continue amiodarone 400 mg p.o. twice a day Continue metoprolol 50 mg p.o. twice a day Discontinue the Lasix drip and start the patient on lower Lasix 40 mg p.o. daily Replace potassium Monitor chest x-ray Titrate the FiO2 as tolerated Continue n prednisone 20 mg p.o. daily Discontinue cefepime Dopplers revealed no DVT Condition is guarded We will continue to follow Case was discussed with the family at the bedside. Repeat chest x-ray in the morning and will continue to follow.
--- NOTE | 2023-06-22 15:10 | XR ---
EXAM: XR chest 1V portable CLINICAL INDICATION:Female, 82 years old with history of assess lungs; [facility] COMPARISON: 06/21/2023 and 06/20/2023 TECHNIQUE: Chest single view. FINDINGS: Lines/tubes/devices: EKG leads overlie the chest. No indwelling lines are seen. Cardiomediastinum: Cardiac silhouette appears mildly enlarged. Stable mediastinal silhouette. Vasculature: No increased pulmonary vasculature. Lungs/pleura: Similar appearance of diffuse hazy interstitial and airspace opacities throughout both lungs. Some marquez perimposed nodularity cannot be excluded--CT at some point could better evaluate this. No sizable ple ural effusion or pneumothorax demonstrated. Bones/soft tissues: Bony thorax appears grossly unchanged as seen. Degenerative changes of the spine and shoulders. Regio nal soft tissues appear unremarkable. IMPRESSION: Diffuse bilateral pulmonary opacities, without significant interval change.
[2023-06-22 16:15] LABS: Glucose,Whole Blood 176 mg/dL (70-110)
[2023-06-22] MEDS: WARFARIN 0.5 MG TAB PO ONE (18:13)
[2023-06-22 22:37] LABS: Glucose,Whole Blood 197 mg/dL (70-110)
--- NOTE | 2023-06-23 00:51 | P.PN ---
Subjective 82-year-old female, history of hypertension, hyperlipidemia, mitral valve prolapse, hypothyroidism, rheumatoid arthritis, CHF present to the emergency department with difficulty breathing. Onset was yesterday. Patient has had a cough for over a week. Patient has occasional yellow sputum. Patient did have COVID-19 pneumonia couple weeks ago and was in the hospital and discharged home. Patient is unaware of any fevers at home. Patient has chronic interstitial lung disease. She was just recently discharged from here on the 2023 after being treated for COVID-19 pneumonia. She did received remdesivir, bronchodilators and steroids. She is presented back to the emergency room this morning June 09, 2023 with complaints of increasing shortness of breath cough and congestion that started last evening. She did utilize her 's home oxygen without much improvement. She herself is not on home oxygen. X-ray shows patchy bilateral lung infiltrates compatible with atypical pneumonia possibly ongoing COVID-pneumonia. Suspect some underlying interstitial lung disease as well. White count 16.9. Hemoglobin 10.2. Platelets 265. Sodium 137. Potassium 4.1. Bicarb 29. BUN 21. Creatinine 0.51. proBNP 2430. AST 69. ALT 41. Procalcitonin 0.12. 06/10/2023 Patient awake and alert She has more shortness of breath today improved with higher oxygen from 2 up to 3 L/min Repeat chest x-ray showing patchy bilateral infiltrates, stable exam. No fever today but hemodynamically stable BMP is unremarkable Patient remains on IV cefepime, IV vancomycin and IV Solu-Medrol 60 mg and normal saline 75 mL/h 06/11/2023 Patient breathing is worse today, she is requiring nonrebreather 60 L/min with FiO2 of 90% and also she is tachypneic and anxious, As per staff patient and family declining intubation and if she deteriorates she might need to be placed on BiPAP WBC is 22.3, hemoglobin stable 9.7 She is currently covered with IV cefepime and IV vancomycin and IV Solu-Medrol. IV fluids was discontinued 06/12/2023 patient awake and alert, in mild distress because of her tachypnea but is improving Oxygen requirement down to 45 L/m No other new complaints. She remains on IV Solu-Medrol 60 mg in the broad-spectrum antibiotics cefepime and IV vancomycin 06/13/2023 Patient sitting up in chair, her breathing rate is similar to yesterday She is still on high flow nasal cannula at 45 L/min She remains on IV cefepime and Vanco vancomycin, she is on IV Solu-Medrol. No IV fluid Daughter at bedside and all questions answered and they are agreeable with the plan I am resuming the care of the patient on 06/18/2023 Patient was looking tired today, awake and alert but she was short of breath Although oxygen saturation show improvement down to 40 L/min compared to yesterday 45 L/min. After rounding I got a call from the nurse patient is becoming tachycardic, EKG showing A-fib and RVR. Heart rate went up to 174 and patient was hypotensive therefore we transferred the patient to the intensive care unit and amiodarone bolus and drip was started. Cardiology team evaluated the patient and patient is status post cardioversion which she changed back to sinus rhythm. Hypokalemia 2.7 been replaced. Also patient started on metoprolol 100 mg 3 times daily and IV heparin drip. Currently patient looks more comfortable and heart rate and blood pressure improved and stabilized, heart rate is in 65. Chest x-ray repeated today showing bilateral infiltrates slightly better compared to last chest x-ray, consistent with pulmonary edema with proBNP is elevated to 430. While pro- Calcitonin is low or mildly elevated 0.12. Patient also kept on IV Solu-Medrol 40 mg instead of 60 mg yesterday. Is given twice daily. Glucose is elevated and patient started on Levemir 10 units daily 06/20/2023 Patient seen and examined at bedside Related is improving today her oxygen requirement dropped from 15 L to 4 L IV Solu-Medrol switched to prednisone 20 mg daily. Patient continued with IV heparin drip and Coumadin for her new onset A-fib. Currently rate controlled She complains from constipation Colace added No other new complaint 06/21/2023 Patient oxygen status; from 15 L/min 2 days ago and currently on 2 L oxygen via nasal cannula She is on constipation placed on Colace She has some low back pain, ordered lidocaine She is on cefepime and prednisone 20 mg Continue with anticoagulation for warfarin and monitor INR after 2-3 06/22/2023 Patient looks little tired, she is lying in bed she is generally weak Her breathing is improved to 2 L/min Creatinine went up to 1.4. Lasix drip was discontinued Coumadin is on hold for INR 4.8 Monitor labs tomorrow Objective - Vital Signs Vital signs: Vital Signs Temp 97.5 F L 06/22/23 00:00 Pulse 65 06/22/23 19:00 Resp 26 H 06/22/23 19:00 BP 101/41 06/22/23 19:00 Pulse Ox 98 06/22/23 19:00 FiO2 35 06/20/23 13:00 Intake & Output 06/22/23 06/22/23 06/23/23 06:59 18:59 06:59 Intake Total 345.667 280 Output Total 705 770 60 Balance -359.333 -490 -60 Weight 46.2 kg Intake: IV 80 40 0.9 Normal Saline @ KVO 80 40 10mL/hr Intake, IV Titration 265.667 Amount Cefepime 2 gm In Sodium 100 Chloride 0.9% 100 ml @ 25 mls/hr IVPB Q12HR PAUL Rx #:[id number] Furosemide 100 mg In 165.667 Sodium Chloride 0.9% 90 ml @ 10 MG/HR 10 mls/hr IV .Q10H PAUL Rx#: [id number] Oral 240 Output: Urine 705 770 60 Other: Voiding Method Indwelling Catheter Indwelling Catheter - Exam GENERAL: The patient is alert and oriented x3, not in any acute distress. Well developed, well nourished. HEENT: Pupils are round and equally reacting to light. EOMI. No scleral icterus. No conjunctival pallor. Normocephalic, atraumatic. No pharyngeal erythema. No thyromegaly. CARDIOVASCULAR: S1 and S2 present. No murmurs, rubs, or gallops. -PULMONARY: Chest is clear to auscultation, no wheezing , bilateral crackles. Tachypneic, mild ABDOMEN: Soft, nontender, nondistended, normoactive bowel sounds. No palpable organomegaly. MUSCULOSKELETAL: No joint swelling or deformity. EXTREMITIES: No cyanosis, clubbing, or pedal edema. NEUROLOGICAL: Gross neurological examination did not reveal any focal deficits. SKIN: No rashes. no petechiae. - Labs CBC & Chem 7: 06/22/23 04:42 06/22/23 04:42 Labs: Abnormal Lab Results - Last 24 Hours (Table) 0406/22/23 06/22/23 Range/Units 20:23 04:37 04:42 WBC 12.1 H (3.8-10.6) k/uL RBC 2.86 L (3.80-5.40) m/uL Hgb 9.1 L (11.4-16.0) gm/dL Hct 29.0 L (34.0-46.0) % MCV 101.4 H (80.0-100.0) fL RDW 16.3 H (11.5-15.5) % PT 47.2 H (10.0-12.5) sec INR 4.8 H (<1.2) Sodium (137-145) mmol/L Chloride (98-107) mmol/L Carbon Dioxide (22-30) mmol/L BUN (7-17) mg/dL Creatinine (0.52-1.04) mg/dL POC Glucose (mg/dL) 185 H (70-110) mg/dL 06/22/23 06/22/23 06/22/23 Range/Units 04:42 10:55 16:13 WBC (3.8-10.6) k/uL RBC (3.80-5.40) m/uL Hgb (11.4-16.0) gm/dL Hct (34.0-46.0) % MCV (80.0-100.0) fL RDW (11.5-15.5) % PT (10.0-12.5) sec INR (<1.2) Sodium 135 L (137-145) mmol/L Chloride 92 L (98-107) mmol/L Carbon Dioxide 38 H (22-30) mmol/L BUN 60 H (7-17) mg/dL Creatinine 1.42 H (0.52-1.04) mg/dL POC Glucose (mg/dL) 239 H 176 H (70-110) mg/dL Assessment and Plan Assessment: 1. Acute hypoxic respiratory failure; multifactorial; hospital-acquired pneumonia versus --Increased oxygen requirement to high flow nasal cannula acute diastolic heart failure with ejection fraction 60 to 65% --Lasix drip 2. Acute exacerbation of asthma -IV Solu-Medrol 40 mg every 12 hours; DuoNeb nebulizer treatments 4 times daily and as needed 3. Mild LETICIA; hold off on IV fluid therapy given worsening chest congestion; we will monitor renal function electrolytes closely; avoid nephrotoxins and hypotension 4. Hospital-acquired pneumonia;-- Pulmonary on board and patient has been placed on IV cefepime and vancomycin 5. New onset A-fib and RVR, s/p cardioversion Currently on metoprolol 100 mg and amiodarone. Also patient was started on IV heparin Which is switched to warfarin pharmacy to dose 6. Hypertension; verapamil SR 120 mg daily; metoprolol 100 mg 3 times daily 7. Hyperlipidemia; Lipitor 40 mg daily 8. Hypothyroidism; levothyroxine 112 mcg Saturday through Saturday and 56 mcg Saturday and Saturday 9. Coronary artery disease/CHF; status post PCI/stent x 3; patient remains on aspirin, Lipitor, Imdur -- Lasix 40 mg daily and Farxiga 5 mg daily 10. Mitral stenosis; patient has moderate to severe mitral calcifications causing moderate to severe mitral stenosis and mild aortic regurgitation and stenosis -- Last echocardiogram reveals an EF of 60 to 65% DVT prophylaxis; SCDs/subcu heparin CODE STATUS; full code
[2023-06-23 04:37] LABS: Anisocytosis Slight; HCT 28.8 % (34.0-46.0); HGB 8.9 gm/dL (11.4-16.0); Hypochromasia Slight; MCH 31.3 pg (25.0-35.0); MCV 101.1 fL (80.0-100.0); Macrocytosis Slight; Mean Platelet Volume 9.2; Platelet Count 209 k/uL (150-450); RBC 2.85 m/uL (3.80-5.40); RDW 16.4 % (11.5-15.5); WBC 13.8 k/uL (3.8-10.6)
[2023-06-23 04:49] LABS: INR 3.5 (<1.2); Prothrombin Time 33.9 sec (10.0-12.5)
[2023-06-23 05:03] LABS: African American GFR (CKD) 44 (>60 ml/min/1.73 sqM); Blood Urea Nitrogen 64 mg/dL (7-17); Calcium 8.6 mg/dL (8.4-10.2); Chloride 91 mmol/L (98-107); Glucose 118 mg/dL (74-99); Non-African American GFR(CKD) 38 (>60 ml/min/1.73 sqM); Potassium 3.7 mmol/L (3.5-5.1); Sodium 134 mmol/L (137-145)
[2023-06-23 05:09] LABS: Anion Gap 5 mmol/L
[2023-06-23 05:11] LABS: Carbon Dioxide 38 mmol/L (22-30)
[2023-06-23] MEDS: POTASSIUM CHLORIDE ER 20 MEQ TAB.ER PO SCH (05:47)
[2023-06-23 06:40] LABS: Glucose,Whole Blood 160 mg/dL (70-110)
--- NOTE | 2023-06-23 08:35 | P.PN ---
Subjective Progress Note Date: 06/23/23 This is a very pleasant 82-year-old female patient with a known history of chronic bronchial asthma, mitral valve prolapse, hypertension, hyperlipidemia, CAD with previous stent, and a lifelong non-smoker. She was just recently discharged from here on the 2023 after being treated for COVID-19 pneum onia. She did received remdesivir, bronchodilators and steroids. She is presented back to the emergency room this morning June 09, 2023 with complaints of increasing shortness of breath cough and congestion that started last evening. She did utilize her 's home oxygen without much improvement. She herself is not on home oxygen. X-ray shows patchy bilateral lung infiltrates compatible with atypical pneumonia possibly ongoing COVID-pneumonia. Suspect some underlying interstitial lung disease as well. White count 16.9. Hemoglobin 10.2. Platelets 265. Sodium 137. Potassium 4.1. Bicarb 29. BUN 21. Creatinine 0.51. proBNP 2430. AST 69. ALT 41. Procalcitonin 0.12. She is seen today in the emergency room in consultation. She is sitting up in the stretcher. Awake and alert in no acute distress. Maintaining O2 saturations in the upper 90s on 2 L/min per nasal cannula. She is afebrile. Hemodynamically stable. The patient is seen today June 10, 2023 in follow-up on the regular medical floor. She is currently sitting up in bed. Awake and alert in no acute distre ss. She still has a loose congested cough. Still dyspneic with conversation. Dyspneic with minimal exertion. She is maintaining O2 saturation in the 90s on 3 L/min per nasal cannula. No IV fluids. Her procalcitonin was 0.12. She is continued on vancomycin and cefepime. Her COVID screen today is positive still. Chest x-ray continues to show patchy bilateral infiltrates stable compared to p revious. She remains on bronchodilators and steroids. White count 18.9. Hemoglobin 9.5. Platelets 239. Sodium 140. Potassium 4.3. Bicarb 23. BUN 26. Creatinine 0.65. Glucose 138. The patient is seen today June 11, 2023 in follow-up on the regular medical floor. She is currently seen at the bedside. Family is in the room. She had a rough night. She was having increasing shortness of breath cough and congestion. She was increased to 5 L/min per nasal cannula. She was initiated on Tessalon Perles. Her procalcitonin was 0.12. She continues on cefepime and vancomycin. She remains on Symbicort, albuterol, Solu-Medrol. Blood cultures revealed no growth. Nasal swab was negative for MRSA. White count 22.3. Hemoglobin 9.7. Platelets 275. Sodium 143. Potassium 4.6. Bicarb 25. BUN 27. Creatinine 0.7. Glucose 156. Remains on diuretics. Progress note dated June 12, 2023. This is an 82-year-old female that I see in the office for asthma. She presented to the hospital, few days ago, with increasing shortness of breath, and had a chest x-ray that was suggestive of pneumonia. The patient recently had coronavirus infection. Currently, the patient's respiratory status is declining, and she is now on Airvo. Airvo settings include 45 L/min, and 55%, with a saturation of 95%. The patient is not receiving any IV fluids. She is getting both cefepime and vancomycin. In addition, the patient is receiving Solu-Medrol, albuterol inhaler, and Symbicort inhaler. She did test positive for coronavirus, but is unclear as to whether or not this is a residual positive test from her recent episode of coronavirus, or she has coronavirus again. We had a long conversation yesterday about CODE STATUS. She would want to be on the mechanical ventilator, if it came to that. No new labs today. Labs from June 10 have been reviewed. This morning's chest x-ray, may be a bit worse. The patient is seen today June 13, 2023 in follow-up on the regular medical floor. She is currently sitting up in a chair at the bedside. Awake and alert in no acute distress. She is breathing a bit easier today compared to yesterday. Her Airvo has been decreased to 45 L and 50% FiO2 with O2 saturation in the low 90s. Blood cultures revealed no growth. Sputum culture revealed no growth. White count 12.2. Hemoglobin 9.0. Platelets 180. Sodium 143. Potassium 4.6. Bicarb 31. BUN 33. Creatinine 0.7. Glucose 175. She is continued on cefepime. Remains on bronchodilators, steroids, vitamin supplements. Remains on oral diuretics. Progress note dated June 14, 2023. 82-year-old female with a history of asthma, and aortic stenosis. The patient was admitted with a diagnosis of possible pneumonia. The patient had a recent episode of coronavirus infection, and did test positive on this admission again for coronavirus. Today she is sitting in a chair next to her hospital bed. She has been weaned off Airvo, down to high flow nasal cannula at 7 L. She is receiving cefepime. She does feel better. Current labs include a white count of 13.2, hemoglobin 8.7, hematocrit 29.2, and a platelet count of 171,000. The patient is seen today June 15, 2023 in follow-up on the regular medical floor. She is currently sitting up in a chair at the bedside. Awake and alert in no acute distress. Breathing a bit easier today compared to yesterday. She is currently on 7 L high flow nasal cannula maintaining O2 saturation in the low 90s. She is continued on cefepime. Blood cultures revealed no growth. Sputum culture reveals no growth. Glucose 246. She remains on bronchodilators and steroids. Remains on oral diuretics. Lovenox for DVT prophylaxis. Continued on multivitamins. The patient is seen today June 16, 2023 in follow-up on the regular medical floo r. She is currently sitting up in a chair at the bedside. Awake and alert. She is back on Airvo high flow oxygen at 40 L and 50% FiO2. She has been very slow to progress. Her chest x-ray shows worsening bilateral infiltrates. She remains on Symbicort, albuterol, Singulair, Solu-Medrol. Remains on antibiotics in the form of cefepime. Continued on vitamin supplements. Remains on oral diuretics. Doppler of the lower extremities are negative for DVT. Blood cultures revealed no growth. Sputum culture revealed no growth. White count 16.4. Hemoglobin 8.7. Platelets 149. Sodium 145. Potassium 4.4. Bicarb 36. BUN 35. Creatinine 0.6. Glucose 178. AST 57. ALT 58. Lovenox for DVT prophylaxis. On today's evaluation of 06/17/2023, I am seeing the patient for a follow-up. The patient remains hypoxic with a chest x-ray showing diffuse bilateral pulmonary filtrates consistent with either cardiogenic versus noncardiogenic pulmonary edema. The patient diffuse airspace pulmonary filtrates throughout the lung stoll bilaterally. Noted the patient was hospitalized approximate 2 to 3 weeks ago for COVID-19 related pneumonia and CHF and the patient was treated and the chest x-ray prior to her discharge showed complete clearing. She is also noted to have mitral stenosis. For now, the patient is on high flow oxygen utilizing Airvo system with a flow of 40 L and FiO2 of 60%. The Doppler of the lower extremity was done and showed no evidence of any DVT and this was done on 06/16/2023. The patient is afebrile. The patient is hemodynamically stable. The patient remains on bronchodilators and the patient is currently on Ventolin HFA 4 times a day, Symbicort as maintenance the patient is empirically covered with IV cefepime and she is also on IV Solu-Medrol 60 mg every 6 hours. Suggested starting the patient on Lasix drip to optimize her volume status. Her most recent echocardiogram that was done on 05/27/2023 showed a preserved LV function. Nevertheless, the patient had moderate thickening and calcification of the anterior and the posterior mitral valve leaflet and the mitral valve was severely stenotic. There was mild aortic stenosis in addition. Right vent ricular systolic pressure was diminished to be around 58. There is severe LA dilatation. On today's evaluation of 06/17/2022, the patient got transferred to the intensive care unit. I attended on this patient as the patient developed shortness of breath and acute tachycardia and the patient was found to be in new onset atrial fibrillation with rapid ventricular response. Heart rate was around 170. The patient was still maintaining her home blood pressure. She was transferred to the ICU and the patient was started on amiodarone initially a bolus of 150 mg was given. During this time, the patient developed some hypotension with a systolic blood pressure in the low 80s. Based on that, cardiology was involved and the patient was immediately cardioverted. The patient underwent DC cardiov ersion that was successful and the patient is currently back in normal sinus rhythm. Amiodarone is running at 1 mg/min at this point in time. At the same time, the patient remains on Lasix drip at 5 mg an hour. The fluid balance has been negative at least 3 L over the past 24 hours. Chest x-ray still showing diffuse bilateral pulmonary filtrates consistent with pulmonary edema. Noncardiogenic cause of pulm edema is also considered although I favor valvular heart disease with secondary atrial fibrillation and heart failure. The patient has severe mitral stenosis. WBC count is at 22 with a hemoglobin 9.1 and a platelet count of 180. Potassium level is at 2.7 needs to be replaced with a BUN of 50 and a creatinine of 0.9 and a sodium levels at 137. Blood sugars also elevated this morning at 363. The patient was also started on IV heparin. During the process, the patient remained alert and awake. She feels less short of breath post cardioversion. Family has been updated periodically on her condition. At this point in time, the patient is on metoprolol 100 mg p.o. 3 times daily. The patient is also on amiodarone drip and IV heparin. The patient is post cardioversion. The patient is receiving IV cefepime and IV Solu-Medrol. On today's evaluation of 06/19/2023, I am seeing the patient for a follow-up. The patient is sitting up on the chair and the patient continues to be on high flow oxygen and currently she is on 35 L with an FiO2 of 35%. Oxygenation is improved and the patient is gradually being weaned off on the high flow and the patient will be attempted on nasal cannula. Chest x-ray still showing diffuse bilateral pulmonary filtrates consistent with pulmonary edema. The patient remains on amiodarone drip and the cardiac rhythm has remained sinus throughout the day the patient remains on IV heparin. The patient is post cardioversion. At the same time, the patient is being diuresed with IV Lasix. The patient remains on Lasix drip at 10 mg an hour. Fluid balance is -732 cc and overall fluid balance is -4 L over the past 24 hours. WBC count at 17.7, hemoglobin of 8.8, potassium level is at 4.9 and has been replaced. Sodium is at 137 with a B UN of 47 and a creatinine of 0.7. Remains on IV cefepime. Remains on IV Solu- Medrol. Remains on rest of the medications. Discussed the case with cardiology. Will transition this patient to warfarin for valvular A-fib. She is awake and alert. She denies having any specific complaints. She reports improvement in her overall respiratory status. On today's evaluation of 06/20/2023, the patient is on oxygen at 15 L nasal cannula with a pulse ox of 94%. She is calm and comfortable. She feels that she is gradually improving. Her chest x-ray shows slight improvement in the diffuse bilateral pulmonary filtrates compared to yesterday's chest x-ray. The patient continues to be on Lasix drip at 10 mg an hour and the fluid balance is -2.9 L over the past 24 hours. The serum bicarb is up to 40. Sodium is at 137, BUN is at 57 with a creatinine of 0.69. WBC count is at 15.6 with a hemoglobin 9 and a platelet count of 170. No chest pain. Cardiac rhythm remained sinus. She is on oral amiodarone. She is on IV heparin and the patient was started on anticoagulation with warfarin. She is also on metoprolol at a dose of 50 mg twice daily. On 06/21/2023, the patient is being seen for a follow-up. The patient has been weaned down to 2 L of oxygen by nasal cannula. Reports less shortness of breath. Chest x-ray continues to show slow but ongoing improvement in the bilateral pulmonary filtrates. The patient remains on Lasix drip which is running at 10 mg an hour. Overall fluid balance over the past 24 hours has been -2.9 L and the patient is 2.7 L negative for today. BUN is 50 with a creatinine of 1.1. INR is at 3.0 as the patient is being anticoagulated with warfarin. WB C count is 15.1 with a hemoglobin 9.2. No fever. No chills. Remains on prednisone 20 mg p.o. daily. Remains on IV cefepime which is essentially an empiric antibiotic coverage. Cardiac rhythm is sinus. Patient remains on amiodarone 4 mg p.o. twice a day and metoprolol 50 mg twice a day. Awake and alert and communicating. No significant shortness of breath at today's evaluation. On today's evaluation on 06/22/2023, patient is being seen for a follow-up. The patient is currently on 2 L of oxygen by nasal cannula. Chest x-ray is improving. She has become prerenal due to her aggressive diuresis. Lasix drip will be discontinued today. BUN is at 60 with a creatinine of 1.4. Sodium lev els at 135. Patient is also on anticoagulation with warfarin. INR today is at 4.2. No Coumadin will be given to her today. WBC count is at 12.1 and hemoglobin 9.1. She is feeling weak. No fever. No chest pain. Shortness of breath obviously improving. Remains on IV cefepime. Remains on prednisone 20 mg p.o. daily. Levemir insulin 10 units along with sliding scale coverage. 06/23/2023, the patient is on 2 L of oxygen by nasal cannula. I took the patient off the Lasix drip yesterday. I switched to Lasix 40 mg p.o. daily. Creatinine is improved compared to yesterday is currently down to 1.3. Fluid balance is - 767 cc over the past 24 hours. No significant respiratory distress. Cardiac rhythm is sinus. INR from today is at 3.5 which is improved compared to yesterday. No signs of any bleeding. She is a bit weak and lethargic. She is arousable. Tolerating diet. Using incentive spirometer. Antibiotics have been discontinued. The patient was also placed on prednisone as part of burst taper currently on 20 mg p.o. daily. She remains on beta-blockers and the patient is on metoprolol 50 twice daily 50 mg p.o. twice a day. She remains on amiodarone 400 mg p.o. twice a day. She remains on Synthroid supplements. Objective - Vital Signs Vital signs: Vital Signs Temp 97.6 F 06/23/23 04:00 Pulse 60 06/23/23 04:00 Resp 23 06/23/23 04:00 BP 108/53 06/23/23 04:00 Pulse Ox 97 06/23/23 07:37 FiO2 35 06/20/23 13:00 Intake & Output 06/22/23 06/23/23 06/23/23 18:59 06:59 18:59 Intake Total 280 200 Output Total 770 340 Balance -490 -140 Weight 49.4 kg Intake: IV 40 0.9 Normal Saline @ KVO 40 10mL/hr Oral 240 200 Output: Urine 770 340 Other: Voiding Method Indwelling Catheter Indwelling Catheter - Exam GENERAL EXAM: Alert, 82-year-old white female appearing stated age, comfortable on 2 L of oxygen by nasal cannula HEAD: Normocephalic and atraumatic EYES: Normal reaction of pupils, equal size. NOSE: Clear with pink turbinates. THROAT: No erythema or exudates. NECK: No masses, no JVD. CHEST: No chest wall deformity. LUNGS: Equal air entry with diffuse rhonchi and crackles. no conversational dyspnea or accessory muscle use while at rest CVS: S1 and S2 normal with grade 4 diastolic/systolic murmur, regular rhythm. No other extra heart sounds ABDOMEN: No hepatosplenomegaly, active bowel sounds, no guarding or rigidity. SPINE: No scoliosis or deformity SKIN: No rashes CENTRAL NERVOUS SYSTEM: No focal deficits, tone is normal in all 4 extremities. EXTREMITIES: There is no peripheral edema, clubbing, or cyanosis. Peripheral pulses are intact. - Labs CBC & Chem 7: 06/23/23 03:37 06/23/23 03:37 Labs: Abnormal Lab Results - Last 24 Hours (Table) 06/22/23 06/22/23 06/22/23 Range/Units 10:55 16:13 22:36 WBC (3.8-10.6) k/uL RBC (3.80-5.40) m/uL Hgb (11.4-16.0) gm/dL Hct (34.0-46.0) % MCV (80.0-100.0) fL RDW (11.5-15.5) % PT (10.0-12.5) sec INR (<1.2) Sodium (137-145) mmol/L Chloride (98-107) mmol/L Carbon Dioxide (22-30) mmol/L BUN (7-17) mg/dL Creatinine (0.52-1.04) mg/dL Glucose (74-99) mg/dL POC Glucose (mg/dL) 239 H 176 H 197 H (70-110) mg/dL 06/23/23 06/23/23 06/23/23 Range/Units 03:37 03:37 03:37 WBC 13.8 H (3.8-10.6) k/uL RBC 2.85 L (3.80-5.40) m/uL Hgb 8.9 L (11.4-16.0) gm/dL Hct 28.8 L (34.0-46.0) % MCV 101.1 H (80.0-100.0) fL RDW 16.4 H (11.5-15.5) % PT 33.9 H (10.0-12.5) sec INR 3.5 H (<1.2) Sodium 134 L (137-145) mmol/L Chloride 91 L (98-107) mmol/L Carbon Dioxide 38 H (22-30) mmol/L BUN 64 H (7-17) mg/dL Creatinine 1.32 H (0.52-1.04) mg/dL Glucose 118 H (74-99) mg/dL POC Glucose (mg/dL) (70-110) mg/dL 06/23/23 Range/Units 06:39 WBC (3.8-10.6) k/uL RBC (3.80-5.40) m/uL Hgb (11.4-16.0) gm/dL Hct (34.0-46.0) % MCV (80.0-100.0) fL RDW (11.5-15.5) % PT (10.0-12.5) sec INR (<1.2) Sodium (137-145) mmol/L Chloride (98-107) mmol/L Carbon Dioxide (22-30) mmol/L BUN (7-17) mg/dL Creatinine (0.52-1.04) mg/dL Glucose (74-99) mg/dL POC Glucose (mg/dL) 160 H (70-110) mg/dL Assessment and Plan Plan: Acute hypoxic respiratory failure most likely secondary to pulmonary edema re lated to her valvular heart disease. The patient has severe mitral stenosis, mild aortic stenosis in addition to severe pulm hypertension. LV function is preserved. Other less likely possibilities include hospital-acquired pneumonia versus ongoing/worsening COVID-19 pneumonia. The patient developed diffuse bilateral pulmonary filtrates. She is Improved considerably and she is currently on 2 L of oxygen by nasal cannula. Chest x-ray is also improving. New onset atrial fibrillation with RVR. The patient became hemodynamically unstable/hypotensive and the patient received cardioversion. Currently back to normal sinus rhythm. Currently loaded with amiodarone and amiodarone as a maint enance. This will be switched to oral amiodarone. The patient is also on metoprolol 50 mg p.o. twice a day. Cardiac rhythm is sinus. Patient is anticoagulated with warfarin and INR is Supratherapeutic and Coumadin will be placed on hold, INR is currently down to 3.5. The patient is off warfarin for now. Acute kidney injury, related to prerenal factors secondary to aggressive diuresis. Patient has been negative fluid balance. The patient was taken off the Lasix drip and the patient is currently on Lasix 40 mg p.o. daily. Creatinine is improved compared to yesterday. Acute exacerbation of mild intermittent chronic bronchial asthma Recent discharge on May 31, 2023 for COVID-19 pneumonia, treated with remdesivir. Still testing positive. Noted the patient has complete clearing of the bilateral pulmonary filtrates on previous hospitalization and the chest x- ray was initially clear prior to her discharge. History of coronary artery disease with previous PCI/stent x3 History of hyperlipidemia History of hypertension Moderate to severe mitral calcification and moderate to severe mitral stenosis and mild aortic regurgitation and stenosis. LV function is preserved and the patient has an ejection fraction of 60 to 65%. Pulmonary hypertension WHO class II Rheumatoid arthritis History of hypothyroidism Lifelong non-smoker Plan: Will monitor oxygenation, the patient is improved and the patient is currently down to 2 L of oxygen by nasal cannula. Anticoagulation with warfarin and patient's INR is supratherapeutic and Coumadin will be placed on hold for today, INR is at 3.5 Continue amiodarone 400 mg p.o. twice a day Continue metoprolol 50 mg p.o. twice a day Continue Lasix 40 mg p.o. daily Replace potassium at 3.7 Monitor chest x-ray and repeat chest x-ray will be obtained for tomorrow Titrate the FiO2 as tolerated Continue n prednisone 20 mg p.o. daily Discontinue cefepime Dopplers revealed no DVT Condition is guarded We will continue to follow Case was discussed with the family at the bedside. Repeat chest x-ray in the morning and will continue to follow. The patient can be transferred to S. Will involve physical therapy. [employer] on the case. Respiratory failure was sent related to severe pulmonary edema related to valvular heart disease/severe mitral stenosis.
[2023-06-23 11:06] LABS: Glucose,Whole Blood 228 mg/dL (70-110)
[2023-06-23] MEDS: WARFARIN 0.5 MG TAB PO ONE (11:37)
[2023-06-23 16:01] LABS: Glucose,Whole Blood 143 mg/dL (70-110)
--- NOTE | 2023-06-23 18:13 | XR ---
EXAMINATION TYPE: XR KUB portable DATE OF EXAM: 06/23/2023 6:02 PM CLINICAL INDICATION:Female, 82 years old with history of distension; [facility] COMPARISON: None. TECHNIQUE: One radiographic view of the abdomen was obtained. FINDINGS: Moderate amount stool throughout the colon The bowel gas pattern is nonspecific without dil ated loops of small or large bowel. There is no evidence for organomegaly or pneumoperitoneum. The o sseous structures are intact. No abnormal calcifications are present. Fecal material and gas are dem onstrated throughout the colon and rectum. Degeneration changes of absent osteophyte formation joint space narrowing. IMPRESSION: Moderate amount stool throughout the colon. Nonspecific bowel gas pattern without radiographic eviden ce for acute process.
[2023-06-23 19:52] LABS: Glucose,Whole Blood 117 mg/dL (70-110)
[2023-06-24 06:32] LABS: Anisocytosis Slight; HCT 27.1 % (34.0-46.0); HGB 8.9 gm/dL (11.4-16.0); Hypochromasia Slight; MCH 32.3 pg (25.0-35.0); MCHC 32.7 g/dL (31.0-37.0); MCV 98.9 fL (80.0-100.0); Macrocytosis Slight; Mean Platelet Volume 9.4; Platelet Count 214 k/uL (150-450); RBC 2.75 m/uL (3.80-5.40); RDW 16.5 % (11.5-15.5)
[2023-06-24 06:38] LABS: INR 2.1 (<1.2)
[2023-06-24 06:47] LABS: Glucose,Whole Blood 131 mg/dL (70-110)
[2023-06-24 07:40] LABS: African American GFR (CKD) 39 (>60 ml/min/1.73 sqM); Anion Gap 4 mmol/L; Blood Urea Nitrogen 69 mg/dL (7-17); Calcium 8.5 mg/dL (8.4-10.2); Carbon Dioxide 39 mmol/L (22-30); Chloride 93 mmol/L (98-107); Glucose 53 mg/dL (74-99); Non-African American GFR(CKD) 34 (>60 ml/min/1.73 sqM); Potassium 4.4 mmol/L (3.5-5.1); Sodium 136 mmol/L (137-145)
--- NOTE | 2023-06-24 07:59 | XR ---
EXAMINATION TYPE: XR chest 1V portable DATE OF EXAM: 06/24/2023 COMPARISON: 06/22/2023 INDICATION: Recent pneumonia CHF , COVID TECHNIQUE: Single frontal view of the chest is obtained. FINDINGS: The heart size is upper limits for normal. The pulmonary vasculature is diffusely prominent. Diffuse increased lung markings are present bilaterally. Findings can be compatible with atypical pne umonia. IMPRESSION: 1. Clinical correlation recommended for worsening congestive heart failure or atypical pneumonia.
[2023-06-24 11:35] LABS: Glucose,Whole Blood 142 mg/dL (70-110)
--- NOTE | 2023-06-24 11:36 | P.PN ---
Subjective Progress Note Date: 06/24/23 Principal diagnosis: Acute hypoxic respiratory failure, multifactorial, secondary to pulmonary edema, valvular heart disease, and COVID-19 pneumonia. Well as hospital-acquired pne cesar This is a very pleasant 82-year-old female patient with a known history of chronic bronchial asthma, mitral valve prolapse, hypertension, hyperlipidemia, CAD with previous stent, and a lifelong non-smoker. She was just recently discharged from here on the 2023 after being treated for COVID-19 pneumonia. She did received remdesivir, bronchodilators and steroids. She is presented back to the emergency room this morning June 09, 2023 with complaints of increasing shortness of breath cough and congestion that started last evening. She did utilize her 's home oxygen without much improvement. She herself is not on home oxygen. X-ray shows patchy bilateral lung infiltrat es compatible with atypical pneumonia possibly ongoing COVID-pneumonia. Suspect some underlying interstitial lung disease as well. White count 16.9. Hemoglobin 10.2. Platelets 265. Sodium 137. Potassium 4.1. Bicarb 29. BUN 21. Creatinine 0.51. proBNP 2430. AST 69. ALT 41. Procalcitonin 0.12. She is seen today in the emergency room in consultation. She is sitting up in the stretcher. Awake and alert in no acute distress. Maintaining O2 saturations in the upper 90s on 2 L/min per nasal cannula. She is afebrile. Hemodynamically stable. The patient is seen today June 10, 2023 in follow-up on the regular medical floor. She is currently sitting up in bed. Awake and alert in no acute distress. She still has a loose congested cough. Still dyspneic with conversation. Dyspneic with minimal exertion. She is maintaining O2 saturation in the 90s on 3 L/min per nasal cannula. No IV fluids. Her procalcitonin was 0.12. She is continued on vancomycin and cefepime. Her COVID screen today is positive still. Chest x-ray continues to show patchy bilateral infiltrates stable compared to previous. She remains on bronchodilators and steroids. White count 18.9. Hemoglobin 9.5. Platelets 239. Sodium 140. Potassium 4.3. Bicarb 23. BUN 26. Creatinine 0.65. Glucose 138. The patient is seen today June 11, 2023 in follow-up on the regular medical floor. She is currently seen at the bedside. Family is in the room. She had a rough night. She was having increasing shortness of breath cough and congestion. She was increased to 5 L/min per nasal cannula. She was initiated on Tessalon Perles. Her procalcitonin was 0.12. She continues on cefepime and vancomycin. She remains on Symbicort, albuterol, Solu-Medrol. Blood cultures revealed no growth. Nasal swab was negative for MRSA. White count 22.3. Hemoglobin 9.7. Platelets 275. Sodium 143. Potassium 4.6. Bicarb 25. BUN 27. Creatinine 0.7. Glucose 156. Remains on diuretics. Progress note dated June 12, 2023. This is an 82-year-old female that I see in the office for asthma. She presented to the hospital, few days ago, with increasing shortness of breath, and had a chest x-ray that was suggestive of pneumonia. The patient recently had coronavirus infection. Currently, the patient's respiratory status is declining, and she is now on Airvo. Airvo settings include 45 L/min, and 55%, with a saturation of 95%. The patient is not receiving any IV fluids. She is getting both cefepime and vancomycin. In addition, the patient is receiving Solu-Medrol, albuterol inhaler, and Symbicort inhaler. She did test positive for coronavirus, but is unclear as to whether or not this is a residual positive test from her recent episode of coronavirus, or she has coronavirus again. We had a long conversation yesterday about CODE STATUS. She would want to be on the mechanical ventilator, if it came to that. No new labs today. Labs from June 10 have been reviewed. This morning's chest x-ray, may be a bit worse. The patient is seen today June 13, 2023 in follow-up on the regular medical floor. She is currently sitting up in a chair at the bedside. Awake and alert in no acute distress. She is breathing a bit easier today compared to yesterday. Her Airvo has been decreased to 45 L and 50% FiO2 with O2 saturation in the low 90s. Blood cultures revealed no growth. Sputum culture revealed no growth. White count 12.2. Hemoglobin 9.0. Platelets 180. Sodium 143. Potassium 4.6. Bicarb 31. BUN 33. Creatinine 0.7. Glucose 175. She is continued on cefepime. Remains on bronchodilators, steroids, vitamin supplements. Remains on oral diuretics. Progress note dated June 14, 2023. 82-year-old female with a history of asthma, and aortic stenosis. The patient was admitted with a diagnosis of possible pneumonia. The patient had a recent episode of coronavirus infection, and did test positive on this admission again for coronavirus. Today she is sitting in a chair next to her hospital bed. She has been weaned off Airvo, down to high flow nasal cannula at 7 L. She is receiving cefepime. She does feel better. Current labs include a white count of 13.2, hemoglobin 8.7, hematocrit 29.2, and a platelet count of 171,000. The patient is seen today June 15, 2023 in follow-up on the regular medical floor. She is currently sitting up in a chair at the bedside. Awake and alert in no acute distress. Breathing a bit easier today compared to yesterday. She is currently on 7 L high flow nasal cannula maintaining O2 saturation in the low 90s. She is continued on cefepime. Blood cultures revealed no growth. Sputum culture reveals no growth. Glucose 246. She remains on bronchodilators and steroids. Remains on oral diuretics. Lovenox for DVT prophylaxis. Continued on multivitamins. The patient is seen today June 16, 2023 in follow-up on the regular medical floor. She is currently sitting up in a chair at the bedside. Awake and alert. She is back on Airvo high flow oxygen at 40 L and 50% FiO2. She has been very slow to progress. Her chest x-ray shows worsening bilateral infiltrates. She remains on Symbicort, albuterol, Singulair, Solu-Medrol. Remains on antibiotics in the form of cefepime. Continued on vitamin supplements. Remains on oral diuretics. Doppler of the lower extremities are negative for DVT. Blood cultures revealed no growth. Sputum culture revealed no growth. White count 16.4. Hemoglobin 8.7. Platelets 149. Sodium 145. Potassium 4.4. Bicarb 36. BUN 35. Creatinine 0.6. Glucose 178. AST 57. ALT 58. Lovenox for DVT prophylaxis. On today's evaluation of 06/17/2023, I am seeing the patient for a follow-up. The patient remains hypoxic with a chest x-ray showing diffuse bilateral pulmonary filtrates consistent with either cardiogenic versus noncardiogenic pulmonary edema. The patient diffuse airspace pulmonary filtrates throughout the lung stoll bilaterally. Noted the patient was hospitalized approximate 2 to 3 weeks ago for COVID-19 related pneumonia and CHF and the patient was treated and the chest x-ray prior to her discharge showed complete clearing. She is also noted to have mitral stenosis. For now, the patient is on high flow oxygen utilizing Airvo system with a flow of 40 L and FiO2 of 60%. The Doppler of the lower extremity was done and showed no evidence of any DVT and this was done on 06/16/2023. The patient is afebrile. The patient is hemodynamically stable. The patient remains on bronchodilators and the patient is currently on Ventolin HFA 4 times a day, Symbicort as maintenance the patient is empirically covered with IV cefepime and she is also on IV Solu-Medrol 60 mg every 6 hours. Suggested starting the patient on Lasix drip to optimize her volume status. Her most recent echocardiogram that was done on 05/27/2023 showed a preserved LV function. Nevertheless, the patient had moderate thickening and calcification of the anterior and the posterior mitral valve leaflet and the mitral valve was severely stenotic. There was mild aortic stenosis in addition. Right ventricular systolic pressure was diminished to be around 58. There is severe LA dilatation. On today's evaluation of 06/17/2022, the patient got transferred to the intensive care unit. I attended on this patient as the patient developed shortness of breath and acute tachycardia and the patient was found to be in new onset atrial fibrillation with rapid ventricular response. Heart rate was around 170. The patient was still maintaining her home blood pressure. She was transferred to the ICU and the patient was started on amiodarone initially a bolus of 150 mg was given. During this time, the patient developed some hypotension with a systolic blood pressure in the low 80s. Based on that, cardiology was involved and the patient was immediately cardioverted. The patient underwent DC cardioversion that was successful and the patient is currently back in normal sinus rhythm. Amiodarone is running at 1 mg/min at this point in time. At the same time, the patient remains on Lasix drip at 5 mg an hour. The fluid balance has been negative at least 3 L over the past 24 hours. Chest x-ray still showing diffuse bilateral pulmonary filtrates consistent with pulmonary edema. Noncardiogenic cause of pulm edema is also considered although I favor valvular heart disease with secondary atrial fibrillation and heart failure. The patient has severe mitral stenosis. WBC count is at 22 with a hemoglobin 9.1 and a platelet count of 180. Potassium level is at 2.7 needs to be replaced with a BUN of 50 and a creatinine of 0.9 and a sodium levels at 137. Blood sugars also elevated this morning at 363. The patient was also started on IV heparin. During the process, the patient remained alert and awake. She feels less short of breath post cardioversion. Family has been updated periodically on her condition. At this point in time, the patient is on metoprolol 100 mg p.o. 3 times daily. The patient is also on amiodarone drip and IV heparin. The patient is post cardioversion. The patient is receiving IV cefepime and IV Solu-Medrol. On today's evaluation of 06/19/2023, I am seeing the patient for a follow-up. The patient is sitting up on the chair and the patient continues to be on high flow oxygen and currently she is on 35 L with an FiO2 of 35%. Oxygenation is improved and the patient is gradually being weaned off on the high flow and the patient will be attempted on nasal cannula. Chest x-ray still showing diffuse bilateral pulmonary filtrates consistent with pulmonary edema. The patient remains on amiodarone drip and the cardiac rhythm has remained sinus throughout the day the patient remains on IV heparin. The patient is post cardioversion. At the same time, the patient is being diuresed with IV Lasix. The patient remains on Lasix drip at 10 mg an hour. Fluid balance is -732 cc and overall fluid balance is -4 L over the past 24 hours. WBC count at 17.7, hemoglobin of 8.8, potassium level is at 4.9 and has been replaced. Sodium is at 137 with a BUN of 47 and a creatinine of 0.7. Remains on IV cefepime. Remains on IV Solu-Medrol. Remains on rest of the medications. Discussed the case with cardiology. Will transition this patient to warfarin for valvular A-fib. She is awake and alert. She denies having any specific complaints. She reports improvement in her overall respiratory status. On today's evaluation of 06/20/2023, the patient is on oxygen at 15 L nasal cannula with a pulse ox of 94%. She is calm and comfortable. She feels that she is gradually improving. Her chest x-ray shows slight improvement in the dif fuse bilateral pulmonary filtrates compared to yesterday's chest x-ray. The patient continues to be on Lasix drip at 10 mg an hour and the fluid balance is -2.9 L over the past 24 hours. The serum bicarb is up to 40. Sodium is at 137, BUN is at 57 with a creatinine of 0.69. WBC count is at 15.6 with a hemoglobin 9 and a platelet count of 170. No chest pain. Cardiac rhythm remained sinus. She is on oral amiodarone. She is on IV heparin and the patient was started on anticoagulation with warfarin. She is also on metoprolol at a dose of 50 mg twice daily. On 06/21/2023, the patient is being seen for a follow-up. The patient has been weaned down to 2 L of oxygen by nasal cannula. Reports less shortness of breath. Chest x-ray continues to show slow but ongoing improvement in the mirela ateral pulmonary filtrates. The patient remains on Lasix drip which is running at 10 mg an hour. Overall fluid balance over the past 24 hours has been -2.9 L and the patient is 2.7 L negative for today. BUN is 50 with a creatinine of 1.1. INR is at 3.0 as the patient is being anticoagulated with warfarin. WBC count is 15.1 with a hemoglobin 9.2. No fever. No chills. Remains on prednisone 20 mg p.o. daily. Remains on IV cefepime which is essentially an empiric antibiotic coverage. Cardiac rhythm is sinus. Patient remains on amiodarone 4 mg p.o. twice a day and metoprolol 50 mg twice a day. Awake and alert and communicating. No significant shortness of breath at today's evaluation. On today's evaluation on 06/22/2023, patient is being seen for a follow-up. The patient is currently on 2 L of oxygen by nasal cannula. Chest x-ray is improving. She has become prerenal due to her aggressive diuresis. Lasix drip will be discontinued today. BUN is at 60 with a creatinine of 1.4. Sodium levels at 135. Patient is also on anticoagulation with warfarin. INR today is at 4.2. No Coumadin will be given to her today. WBC count is at 12.1 and hemoglobin 9.1. She is feeling weak. No fever. No chest pain. Shortness of breath obviously improving. Remains on IV cefepime. Remains on prednisone 20 mg p.o. daily. Levemir insulin 10 units along with sliding scale coverage. 06/23/2023, the patient is on 2 L of oxygen by nasal cannula. I took the patient off the Lasix drip yesterday. I switched to Lasix 40 mg p.o. daily. Creatinine is improved compared to yesterday is currently down to 1.3. Fluid balance is - 767 cc over the past 24 hours. No significant respiratory distress. Cardiac rhythm is sinus. INR from today is at 3.5 which is improved compared to yesterd ay. No signs of any bleeding. She is a bit weak and lethargic. She is arousable. Tolerating diet. Using incentive spirometer. Antibiotics have been discontinued. The patient was also placed on prednisone as part of burst taper currently on 20 mg p.o. daily. She remains on beta-blockers and the patient is on metoprolol 50 twice daily 50 mg p.o. twice a day. She remains on amiodarone 400 mg p.o. twice a day. She remains on Synthroid supplements. Reevaluate on 06/24/2023, patient remains in the ICU, she is actually an overflow. Patient is supposed to be transferred to a cardiac floor, and I will change the transfer to a medical surgical floor. Patient is doing well she is on 2 L nasal cannula, not in any distress, placement in [facility] possibly morbid is also in progress. Patient has been in the hospital now since 06/09/2023. She seems to be calm, not in distress, her chest x-ray continues to show bilateral interstitial infiltrate/edema. But the patient is much improved compared to baseline when she came in initially 2 weeks ago. WBC count is 13 hemoglobin 8.9 INR is 2.1 basic metabolic profile is normal bicarb is 39 BUN is 69 creatinine 1.47 chest x-ray continues to show evidence of congestive heart failure or atypical pneumonia Objective - Vital Signs Vital signs: Vital Signs Temp 97.5 F L 06/24/23 08:00 Pulse 66 06/24/23 08:00 Resp 17 06/24/23 08:00 BP 108/52 06/24/23 08:00 Pulse Ox 98 06/24/23 08:37 FiO2 35 06/20/23 13:00 Intake & Output 06/23/23 06/24/23 06/24/23 18:59 06:59 18:59 Intake Total 250 120 Output Total 250 350 Balance 0 -230 Weight 46.4 kg Intake: Oral 250 120 Output: Urine 250 350 Other: Voiding Method Indwelling Catheter Indwelling Catheter Indwelling Catheter - Exam GENERAL EXAM: 82-year-old in no distress, on 2 L nasal cannula HEAD: Normocephalic and atraumatic EYES: Normal reaction of pupils, equal size. NOSE: Clear with pink turbinates. THROAT: No erythema or exudates. NECK: No masses, no JVD. CHEST: No chest wall deformity. LUNGS: Fine crackles and rhonchi noted bilaterally. CVS: S1 and S2 normal with grade 4 diastolic/systolic murmur, regular rhythm. No other extra heart sounds ABDOMEN: No hepatosplenomegaly, active bowel sounds, no guarding or rigidity. SPINE: No scoliosis or deformity SKIN: No rashes CENTRAL NERVOUS SYSTEM: Alert and oriented x 3 no gross focal deficit EXTREMITIES: Clubbing edema or cyanosis good pulses bilaterally - Labs CBC & Chem 7: 06/24/23 05:30 06/24/23 05:30 Labs: Abnormal Lab Results - Last 24 Hours (Table) 06/23/23 06/23/23 06/24/23 Range/Units 16:00 19:51 05:30 WBC (3.8-10.6) k/uL RBC (3.80-5.40) m/uL Hgb (11.4-16.0) gm/dL Hct (34.0-46.0) % RDW (11.5-15.5) % PT 21.0 H (10.0-12.5) sec INR 2.1 H (<1.2) Sodium (137-145) mmol/L Chloride (98-107) mmol/L Carbon Dioxide (22-30) mmol/L BUN (7-17) mg/dL Creatinine (0.52-1.04) mg/dL Glucose (74-99) mg/dL POC Glucose (mg/dL) 143 H 117 H (70-110) mg/dL 06/24/23 06/24/23 06/24/23 Range/Units 05:30 05:30 06:46 WBC 13.0 H (3.8-10.6) k/uL RBC 2.75 L (3.80-5.40) m/uL Hgb 8.9 L (11.4-16.0) gm/dL Hct 27.1 L (34.0-46.0) % RDW 16.5 H (11.5-15.5) % PT (10.0-12.5) sec INR (<1.2) Sodium 136 L (137-145) mmol/L Chloride 93 L (98-107) mmol/L Carbon Dioxide 39 H (22-30) mmol/L BUN 69 H (7-17) mg/dL Creatinine 1.46 H (0.52-1.04) mg/dL Glucose 53 L (74-99) mg/dL POC Glucose (mg/dL) 131 H (70-110) mg/dL Assessment and Plan Assessment: Impression: Acute hypoxic respiratory failure, multifactorial Acute COVID-19 pneumonia with possible underlying bacterial pneumonia, exact etiology is not clear. Treated with remdesivir. Acute congestive heart failure with preserved LV function, diastolic in nature and likely related to her underlying valvular heart disease New onset atrial fibrillation on anticoagulation therapy Acute kidney injury History of underlying coronary artery disease and previous stent placement x 3 Severe mitral stenosis and mild aortic stenosis with severe pulmonary hypertension Rheumatoid arthritis History of hypothyroidism Lifelong non-smoker Recommendation: Continue anticoagulation therapy Continue diuretics/Lasix 40 mg p.o. daily Continue metoprolol twice daily 50 mg Titrate FiO2 accordingly presently on 2 L Continue prednisone 20 mg p.o. daily Antibiotics have been discontinued patient received adequate therapy empirically Transfer patient out of the ICU to a medical floor or to a medical floor with monitor Continue workup on placement possibly [place]. Will continue to follow and titrate FiO2 accordingly. Time with Patient: Less than 30
--- NOTE | 2023-06-24 13:39 | P.PN ---
Subjective Progress Note Date: 06/24/23 82-year-old female, history of hypertension, hyperlipidemia, mitral valve prolapse, hypothyroidism, rheumatoid arthritis, CHF present to the emergency department with difficulty breathing. Onset was yesterday. Patient has had a cough for over a week. Patient has occasional yellow sputum. Patient did have COVID-19 pneumonia couple weeks ago and was in the hospital and discharged home. Patient is unaware of any fevers at home. Patient has chronic interstitial lung disease. She was just recently discharged from here on the 2023 after being treated for COVID-19 pneumonia. She did received remdesivir, bronchodilators and steroids. She is presented back to the emergency room this morning June 09, 2023 with complaints of increasing shortness of breath cough and congestion that started last evening. She did utilize her 's home oxygen without much improvement. She herself is not on home oxygen. X-ray shows patchy bilateral lung infiltrates compatible with atypical pneumonia possibly ongoing COVID-pneumonia. Suspect some underlying interstitial lung disease as well. White count 16.9. Hemoglobin 10.2. Platelets 265. Sodium 137. Potassium 4.1. Bicarb 29. BUN 21. Creatinine 0.51. proBNP 2430. AST 69. ALT 41. Procalcitonin 0.12. 06/10/2023 Patient awake and alert She has more shortness of breath today improved with higher oxygen from 2 up to 3 L/min Repeat chest x-ray showing patchy bilateral infiltrates, stable exam. No fever today but hemodynamically stable BMP is unremarkable Patient remains on IV cefepime, IV vancomycin and IV Solu-Medrol 60 mg and normal saline 75 mL/h 06/11/2023 Patient breathing is worse today, she is requiring nonrebreather 60 L/min with FiO2 of 90% and also she is tachypneic and anxious, As per staff patient and family declining intubation and if she deteriorates she might need to be placed on BiPAP WBC is 22.3, hemoglobin stable 9.7 She is currently covered with IV cefepime and IV vancomycin and IV Solu-Medrol. IV fluids was discontinued 06/12/2023 patient awake and alert, in mild distress because of her tachypnea but is improving Oxygen requirement down to 45 L/m No other new complaints. She remains on IV Solu-Medrol 60 mg in the broad-spectrum antibiotics cefepime and IV vancomycin 06/13/2023 Patient sitting up in chair, her breathing rate is similar to yesterday She is still on high flow nasal cannula at 45 L/min She remains on IV cefepime and Vanco vancomycin, she is on IV Solu-Medrol. No IV fluid Daughter at bedside and all questions answered and they are agreeable with the plan I am resuming the care of the patient on 06/18/2023 Patient was looking tired today, awake and alert but she was short of breath Although oxygen saturation show improvement down to 40 L/min compared to yesterday 45 L/min. After rounding I got a call from the nurse patient is becoming tachycardic, EKG showing A-fib and RVR. Heart rate went up to 174 and patient was hypotensive therefore we transferred the patient to the intensive care unit and amiodarone bolus and drip was started. Cardiology team evaluated the patient and patient is status post cardioversion which she changed back to sinus rhythm. Hypokalemia 2.7 been replaced. Also patient started on metoprolol 100 mg 3 times daily and IV heparin drip. Currently patient looks more comfortable and heart rate and blood pressure improved and stabilized, heart rate is in 65. Chest x-ray repeated today showing bilateral infiltrates slightly better compared to last chest x-ray, consistent with pulmonary edema with proBNP is elevated to 430. While pro- Calcitonin is low or mildly elevated 0.12. Patient also kept on IV Solu-Medrol 40 mg instead of 60 mg yesterday. Is given twice daily. Glucose is elevated and patient started on Levemir 10 units daily 06/20/2023 Patient seen and examined at bedside Related is improving today her oxygen requirement dropped from 15 L to 4 L IV Solu-Medrol switched to prednisone 20 mg daily. Patient continued with IV heparin drip and Coumadin for her new onset A-fib. Currently rate controlled She complains from constipation Colace added No other new complaint 06/21/2023 Patient oxygen status; from 15 L/min 2 days ago and currently on 2 L oxygen via nasal cannula She is on constipation placed on Colace She has some low back pain, ordered lidocaine She is on cefepime and prednisone 20 mg Continue with anticoagulation for warfarin and monitor INR after 2-3 06/22/2023 Patient looks little tired, she is lying in bed she is generally weak Her breathing is improved to 2 L/min Creatinine went up to 1.4. Lasix drip was discontinued Coumadin is on hold for INR 4.8 Monitor labs tomorrow 06/23. Patient seen and examined. Patient states she is doing much better. Complaining of constipation. Gets short of breath on exertion. REVIEW OF SYSTEMS: CONSTITUTIONAL: No fever, no malaise,. CARDIOVASCULAR: No chest pain, no palpitations, no syncope. PULMONARY: As mentioned above GASTROINTESTINAL: No diarrhea, no nausea, no vomiting, no abdominal pain. NEUROLOGICAL: No headaches, no weakness, PHYSICAL EXAMINATION: GENERAL: The patient is alert and oriented x3, not in any acute distress. Well developed, well nourished. HEENT: Pupils are round and equally reacting to light. EOMI. No scleral icterus. No conjunctival pallor. Normocephalic, atraumatic. No pharyngeal erythema. No thyromegaly. CARDIOVASCULAR: S1 and S2 present. Murmur audible PULMONARY: Diminished breath sounds at bases, no wheezing or crackles. ABDOMEN: Soft, nontender, nondistended, normoactive bowel sounds. No palpable organomegaly. MUSCULOSKELETAL: No joint swelling or deformity. EXTREMITIES: No cyanosis, clubbing, or pedal edema. NEUROLOGICAL: Gross neurological examination did not reveal any focal deficits. SKIN: No rashes. Assessment and plan Acute hypoxic respiratory failure most likely secondary to pulmonary edema related to her valvular heart disease. hospital-acquired pneumonia versus ongoing/worsening COVID-19 pneumonia. New onset atrial fibrillation with RVR. Acute kidney injury, related to prerenal factors secondary to aggressive diuresis. Acute exacerbation of mild intermittent chronic bronchial asthma History of coronary artery disease with previous PCI/stent x3 History of hyperlipidemia History of hypertension Moderate to severe mitral calcification and moderate to severe mitral stenosis and mild aortic regurgitation and stenosis. Pulmonary hypertension WHO class II Rheumatoid arthritis History of hypothyroidism Lifelong non-smoker Monitor vital signs Monitor CBC Monitor CMP Continue telemetry monitoring Continue amiodarone 400 mg p.o. twice a day Continue metoprolol 50 mg p.o. twice a day Continue Lasix 40 mg p.o. daily Continue Coumadin pharmacy to dose Titrate the FiO2 as tolerated Continue prednisone 20 mg p.o. daily Cardiology following Pulmonology following Labs and medication were reviewed.. Continue same treatment. Continue with symptomatic treatment. Resume home medication. Monitor labs and vitals. DVT and GI prophylaxis. Further recommendations as per clinical course of the patient Dictation was produced using [employer] dictation software. please excuse any grammatical, word or spelling errors. Objective - Vital Signs Vital signs: Vital Signs Temp 97.5 F L 06/24/23 08:00 Pulse 66 06/24/23 08:00 Resp 17 06/24/23 08:00 BP 108/52 06/24/23 08:00 Pulse Ox 98 06/24/23 08:37 FiO2 35 06/20/23 13:00 Intake & Output 06/23/23 06/24/23 06/24/23 18:59 06:59 18:59 Intake Total 250 120 Output Total 250 350 Balance 0 -230 Weight 46.4 kg Intake: Oral 250 120 Output: Urine 250 350 Other: Voiding Method Indwelling Catheter Indwelling Catheter - Labs CBC & Chem 7: 06/24/23 05:30 06/24/23 05:30 Labs: Abnormal Lab Results - Last 24 Hours (Table) 06/23/23 06/23/23 06/23/23 Range/Units 11:04 16:00 19:51 WBC (3.8-10.6) k/uL RBC (3.80-5.40) m/uL Hgb (11.4-16.0) gm/dL Hct (34.0-46.0) % RDW (11.5-15.5) % PT (10.0-12.5) sec INR (<1.2) Sodium (137-145) mmol/L Chloride (98-107) mmol/L Carbon Dioxide (22-30) mmol/L BUN (7-17) mg/dL Creatinine (0.52-1.04) mg/dL Glucose (74-99) mg/dL POC Glucose (mg/dL) 228 H 143 H 117 H (70-110) mg/dL 06/24/23 06/24/23 06/24/23 Range/Units 05:30 05:30 05:30 WBC 13.0 H (3.8-10.6) k/uL RBC 2.75 L (3.80-5.40) m/uL Hgb 8.9 L (11.4-16.0) gm/dL Hct 27.1 L (34.0-46.0) % RDW 16.5 H (11.5-15.5) % PT 21.0 H (10.0-12.5) sec INR 2.1 H (<1.2) Sodium 136 L (137-145) mmol/L Chloride 93 L (98-107) mmol/L Carbon Dioxide 39 H (22-30) mmol/L BUN 69 H (7-17) mg/dL Creatinine 1.46 H (0.52-1.04) mg/dL Glucose 53 L (74-99) mg/dL POC Glucose (mg/dL) (70-110) mg/dL 06/24/23 Range/Units 06:46 WBC (3.8-10.6) k/uL RBC (3.80-5.40) m/uL Hgb (11.4-16.0) gm/dL Hct (34.0-46.0) % RDW (11.5-15.5) % PT (10.0-12.5) sec INR (<1.2) Sodium (137-145) mmol/L Chloride (98-107) mmol/L Carbon Dioxide (22-30) mmol/L BUN (7-17) mg/dL Creatinine (0.52-1.04) mg/dL Glucose (74-99) mg/dL POC Glucose (mg/dL) 131 H (70-110) mg/dL
[2023-06-24 17:30] LABS: Glucose,Whole Blood 245 mg/dL (70-110)
[2023-06-24] MEDS: WARFARIN 2 MG TAB PO ONE (18:04)
[2023-06-24 20:38] LABS: Glucose,Whole Blood 358 mg/dL (70-110)
[2023-06-24] MEDS: polyethylene glycoL 3350 17 GM POWD.PACK PO SCH (21:04)
[2023-06-25 06:00] LABS: Glucose,Whole Blood 115 mg/dL (70-110)
[2023-06-25 08:34] LABS: INR 2.4 (<1.2); Prothrombin Time 23.8 sec (10.0-12.5)
[2023-06-25] MEDS: predniSONE 20 MG TAB PO SCH (08:49)
[2023-06-25] MEDS: CEFEPIME 1 GM in SODIUM CHLORIDE 0.9% 50 ML IVPB SCH (08:53)
[2023-06-25] MEDS: FUROSEMIDE 40 MG TAB PO SCH (10:12)
[2023-06-25 12:29] LABS: Glucose,Whole Blood 145 mg/dL (70-110)
[2023-06-25 12:29] LABS: HCT 29.3 % (37.2-46.3); HGB 8.8 g/dL (12.0-15.0); MCH 31.3 pg (27.0-32.0); MCV 104.3 FL (80.0-97.0); Mean Platelet Volume 11.3 FL (9.5-12.2); NRBC Per 100 WBC 0 X 10*3/uL (0.00-0.01); Platelet Count 249 X 10*3/uL (140-440); RBC 2.81 X 10*6/uL (4.10-5.20); RDW 16.8 % (11.5-14.5); WBC 13.02 X 10*3/uL (4.50-10.00)
[2023-06-25 12:30] LABS: Basophils # (A) 0.01 X 10*3/uL (0.00-0.10); Basophils % (A) 0.1 %; Eosinophils # (A) 0.02 X 10*3/uL (0.04-0.35); Eosinophils % (A) 0.2 %; Lymphocytes # (A) 1.14 X 10*3/uL (0.90-5.00); Lymphocytes % (A) 8.8 %; Monocytes # (A) 0.81 X 10*3/uL (0.20-1.00); Monocytes % (A) 6.2 %; Neutrophils # (A) 10.98 X 10*3/uL (1.80-7.70); Neutrophils % (A) 84.2 %
[2023-06-25 12:34] LABS: ALT 241 U/L (8-44); AST 212 U/L (13-35); Albumin 2.9 g/dL (3.8-4.9); Albumin/Globulin Ratio 1.04 Ratio (1.60-3.17); Alkaline Phosphatase 82 U/L (41-126); Blood Urea Nitrogen 54.8 mg/dL (9.0-27.0); Carbon Dioxide 37.1 mmol/L (21.6-31.8); Chloride 92 mmol/L (96-109); Globulin 2.8 g/dL (1.6-3.3); Glucose 119 mg/dL (70-110); Potassium 4.2 mmol/L (3.5-5.5); Sodium 140 mmol/L (135-145); Total Bilirubin 0.6 mg/dL (0.3-1.2); Total Protein 5.7 g/dL (6.2-8.2)
--- NOTE | 2023-06-25 12:43 | P.PN ---
Subjective Progress Note Date: 06/25/23 This is a very pleasant 82-year-old female patient with a known history of chronic bronchial asthma, mitral valve prolapse, hypertension, hyperlipidemia, CAD with previous stent, and a lifelong non-smoker. She was just recently discharged from here on the 2023 after being treated for COVID-19 pneumo nitesh. She did received remdesivir, bronchodilators and steroids. She is presented back to the emergency room this morning June 09, 2023 with complaints of increasing shortness of breath cough and congestion that started last evening. She did utilize her 's home oxygen without much improvement. She herself is not on home oxygen. X-ray shows patchy bilateral lung infiltrates compatible with atypical pneumonia possibly ongoing COVID-pneumonia. Suspect some underlying interstitial lung disease as well. White count 16.9. Hemoglobin 10.2. Platelets 265. Sodium 137. Potassium 4.1. Bicarb 29. BUN 21. Creatinine 0.51. proBNP 2430. AST 69. ALT 41. Procalcitonin 0.12. She is seen today in the emergency room in consultation. She is sitting up in the stretcher. Awake and alert in no acute distress. Maintaining O2 saturations in the upper 90s on 2 L/min per nasal cannula. She is afebrile. Hemodynamically stable. The patient is seen today June 10, 2023 in follow-up on the regular medical floor. She is currently sitting up in bed. Awake and alert in no acute distres s. She still has a loose congested cough. Still dyspneic with conversation. Dyspneic with minimal exertion. She is maintaining O2 saturation in the 90s on 3 L/min per nasal cannula. No IV fluids. Her procalcitonin was 0.12. She is continued on vancomycin and cefepime. Her COVID screen today is positive still. Chest x-ray continues to show patchy bilateral infiltrates stable compared to previous. She remains on bronchodilators and steroids. White count 18.9. Hemoglobin 9.5. Platelets 239. Sodium 140. Potassium 4.3. Bicarb 23. BUN 26. Creatinine 0.65. Glucose 138. The patient is seen today June 11, 2023 in follow-up on the regular medical floor. She is currently seen at the bedside. Family is in the room. She had a rough night. She was having increasing shortness of breath cough and congestion. She was increased to 5 L/min per nasal cannula. She was initiated on Tessalon Perles. Her procalcitonin was 0.12. She continues on cefepime and vancomycin. She remains on Symbicort, albuterol, Solu-Medrol. Blood cultures revealed no growth. Nasal swab was negative for MRSA. White count 22.3. Hemoglobin 9.7. Platelets 275. Sodium 143. Potassium 4.6. Bicarb 25. BUN 27. Creatinine 0.7. Glucose 156. Remains on diuretics. Progress note dated June 12, 2023. This is an 82-year-old female that I see in the office for asthma. She presented to the hospital, few days ago, with increasing shortness of breath, and had a chest x-ray that was suggestive of pneumonia. The patient recently had coronavirus infection. Currently, the patient's respiratory status is declining, and she is now on Airvo. Airvo settings include 45 L/min, and 55%, with a saturation of 95%. The patient is not receiving any IV fluids. She is getting both cefepime and vancomycin. In addition, the patient is receiving Solu-Medrol, albuterol inhaler, and Symbicort inhaler. She did test positive for coronavirus, but is unclear as to whether or not this is a residual positive test from her recent episode of coronavirus, or she has coronavirus again. We had a long conversation yesterday about CODE STATUS. She would want to be on the mechanical ventilator, if it came to that. No new labs today. Labs from June 10 have been reviewed. This morning's chest x-ray, may be a bit worse. The patient is seen today June 13, 2023 in follow-up on the regular medical floor. She is currently sitting up in a chair at the bedside. Awake and alert in no acute distress. She is breathing a bit easier today compared to yesterday. Her Airvo has been decreased to 45 L and 50% FiO2 with O2 saturation in the low 90s. Blood cultures revealed no growth. Sputum culture revealed no growth. White count 12.2. Hemoglobin 9.0. Platelets 180. Sodium 143. Potassium 4.6. Bicarb 31. BUN 33. Creatinine 0.7. Glucose 175. She is continued on cefepime. Remains on bronchodilators, steroids, vitamin supplements. Remains on oral diuretics. Progress note dated June 14, 2023. 82-year-old female with a history of asthma, and aortic stenosis. The patient was admitted with a diagnosis of possible pneumonia. The patient had a recent episode of coronavirus infection, and did test positive on this admission again for coronavirus. Today she is sitting in a chair next to her hospital bed. She has been weaned off Airvo, down to high flow nasal cannula at 7 L. She is receiving cefepime. She does feel better. Current labs include a white count of 13.2, hemoglobin 8.7, hematocrit 29.2, and a platelet count of 171,000. The patient is seen today June 15, 2023 in follow-up on the regular medical floor. She is currently sitting up in a chair at the bedside. Awake and alert in no acute distress. Breathing a bit easier today compared to yesterday. She is currently on 7 L high flow nasal cannula maintaining O2 saturation in the low 90s. She is continued on cefepime. Blood cultures revealed no growth. Sputum culture reveals no growth. Glucose 246. She remains on bronchodilators and steroids. Remains on oral diuretics. Lovenox for DVT prophylaxis. Continued on multivitamins. The patient is seen today June 16, 2023 in follow-up on the regular medical floor. She is currently sitting up in a chair at the bedside. Awake and alert. She is back on Airvo high flow oxygen at 40 L and 50% FiO2. She has been very slow to progress. Her chest x-ray shows worsening bilateral infiltrates. She remains on Symbicort, albuterol, Singulair, Solu-Medrol. Remains on antibiotics in the form of cefepime. Continued on vitamin supplements. Remains on oral diuretics. Doppler of the lower extremities are negative for DVT. Blood cultures revealed no growth. Sputum culture revealed no growth. White count 16.4. Hemoglobin 8.7. Platelets 149. Sodium 145. Potassium 4.4. Bicarb 36. BUN 35. Creatinine 0.6. Glucose 178. AST 57. ALT 58. Lovenox for DVT prophylaxis. The patient is seen today June 25, 2023 in follow-up on the regular medical floor. She was transferred out of the intensive care unit yesterday. She is doing quite well. She is sitting up in bed. She is maintaining O2 saturations in the high 90s on 2 L/min per nasal cannula. She remains on Symbicort and albuterol along with vitamin supplements. She is anticoagulated with warfarin. She is on a prednisone taper. She is on oral diuretics. White count 13.0. Hemoglobin 8.8. Platelets 249. INR 2.4. Sodium 140. Potassium 4.2. Bicarb 37. BUN 55. Creatinine 1.0. Glucose 119. Objective - Vital Signs Vital signs: Vital Signs Temp 97.9 F 06/25/23 07:20 Pulse 60 06/25/23 07:20 Resp 18 06/25/23 07:20 BP 110/55 06/25/23 07:20 Pulse Ox 99 06/25/23 07:20 FiO2 35 06/20/23 13:00 Intake & Output 06/24/23 06/25/23 06/25/23 18:59 06:59 18:59 Intake Total 118 Output Total 100 500 Balance -100 -500 118 Intake: Oral 118 Output: Urine 100 500 Other: Voiding Method Indwelling Catheter Indwelling Catheter - Exam GENERAL EXAM: Alert, weak 82-year-old female, resting in bed, on 2 L nasal cannula, in no acute respiratory distress. HEAD: Normocephalic. EYES: Normal reaction of pupils, equal size. NOSE: Clear with pink turbinates. THROAT: No erythema or exudates. NECK: No masses, no JVD. CHEST: No chest wall deformity. LUNGS: Equal air entry with coarse crackles in the bilateral bases. CVS: S1 and S2 normal with an audible murmur, regular rhythm. ABDOMEN: No hepatosplenomegaly, normal bowel sounds, no guarding or rigidity. SPINE: No scoliosis or deformity SKIN: No rashes CENTRAL NERVOUS SYSTEM: No focal deficits, tone is normal in all 4 extremities. EXTREMITIES: There is no peripheral edema. No clubbing, no cyanosis. Peripheral pulses are intact. - Labs CBC & Chem 7: 06/25/23 07:40 06/24/23 05:30 Labs: Abnormal Lab Results - Last 24 Hours (Table) 06/24/23 06/24/23 06/25/23 Range/Units 17:29 20:36 05:58 WBC (4.50-10.00) X 10*3/uL RBC (4.10-5.20) X 10*6/uL Hgb (12.0-15.0) g/dL Hct (37.2-46.3) % MCV (80.0-97.0) FL MCHC (32.0-37.0) g/dL RDW (11.5-14.5) % Immature Gran # (0.00-0.04) X 10*3/uL Neutrophils # (1.80-7.70) X 10*3/uL Eosinophils # (0.04-0.35) X 10*3/uL PT (10.0-12.5) sec INR (<1.2) POC Glucose (mg/dL) 245 H 358 H 115 H (70-110) mg/dL 06/25/23 06/25/23 06/25/23 Range/Units 07:40 07:40 12:29 WBC 13.02 H (4.50-10.00) X 10*3/uL RBC 2.81 L (4.10-5.20) X 10*6/uL Hgb 8.8 L (12.0-15.0) g/dL Hct 29.3 L (37.2-46.3) % MCV 104.3 H (80.0-97.0) FL MCHC 30.0 L (32.0-37.0) g/dL RDW 16.8 H (11.5-14.5) % Immature Gran # 0.06 H (0.00-0.04) X 10*3/uL Neutrophils # 10.98 H (1.80-7.70) X 10*3/uL Eosinophils # 0.02 L (0.04-0.35) X 10*3/uL PT 23.8 H (10.0-12.5) sec INR 2.4 H (<1.2) POC Glucose (mg/dL) 145 H (70-110) mg/dL Assessment and Plan Assessment: Acute hypoxic respiratory failure most likely secondary to pulmonary edema related to her valvular heart disease. The patient has severe mitral stenosis, mild aortic stenosis in addition to severe pulmonary hypertension. LV function is preserved. Other less likely possibilities include hospital-acquired pneum onia versus ongoing/worsening COVID-19 pneumonia. The patient developed diffuse bilateral pulmonary filtrates. She is improved considerably and she is currently on 2 L of oxygen by nasal cannula. Chest x-ray is also improving. New onset atrial fibrillation with RVR. The patient became hemodynamically unstable/hypotensive and the patient received cardioversion. Currently back to normal sinus rhythm. Loaded with amiodarone and amiodarone as a maintenance. This has been switched to oral amiodarone. The patient is also on metoprolol 50 mg p.o. twice a day. Cardiac rhythm is sinus. Patient is anticoagulated with warfarin and INR is therapeutic at 2.4 Acute kidney injury, related to prerenal factors secondary to aggressive diuresis. Patient has been negative fluid balance. The patient was taken off the Lasix drip and the patient is currently on Lasix 40 mg p.o. daily. Creatini ne is improved and currently 1.0 Acute exacerbation of mild intermittent chronic bronchial asthma Recent discharge on May 31, 2023 for COVID-19 pneumonia, treated with remdesivir. Still testing positive Possible underlying interstitial lung disease History of coronary artery disease with previous PCI/stent x3 History of hyperlipidemia History of hypertension Moderate to severe mitral calcification and moderate to severe mitral stenosis and mild aortic regurgitation and stenosis. LV function is preserved and the patient has an ejection fraction of 60 to 65%. Rheumatoid arthritis History of hypothyroidism Lifelong non-smoker Plan: The patient was seen and evaluated Labs and medications reviewed Improving significantly and on 2 L nasal cannula Continue the current treatment plan Remains on Symbicort, albuterol Remains on vitamin supplements Anticoagulated with warfarin Completing a prednisone taper Transitioned to oral diuretics Will require subacute rehabilitation post discharge This patient was seen independently by the pulmonary nurse practitioner addressing pulmonary issues I have personally seen and examined the patient, performed the documentation and the assessment and plan as written. Number of minutes spent on the visit: 24.
--- NOTE | 2023-06-25 13:38 | P.PN ---
Subjective Progress Note Date: 06/25/23 82-year-old female, history of hypertension, hyperlipidemia, mitral valve prolapse, hypothyroidism, rheumatoid arthritis, CHF present to the emergency department with difficulty breathing. Onset was yesterday. Patient has had a cough for over a week. Patient has occasional yellow sputum. Patient did have COVID-19 pneumonia couple weeks ago and was in the hospital and discharged home. Patient is unaware of any fevers at home. Patient has chronic interstitial lung disease. She was just recently discharged from here on the 2023 after being treated for COVID-19 pneumonia. She did received remdesivir, bronchodilators and steroids. She is presented back to the emergency room this morning June 09, 2023 with complaints of increasing shortness of breath cough and congestion that started last evening. She did utilize her 's home oxygen without much improvement. She herself is not on home oxygen. X-ray shows patchy bilateral lung infiltrates compatible with atypical pneumonia possibly ongoing COVID-pneumonia. Suspect some underlying interstitial lung disease as well. White count 16.9. Hemoglobin 10.2. Platelets 265. Sodium 137. Potassium 4.1. Bicarb 29. BUN 21. Creatinine 0.51. proBNP 2430. AST 69. ALT 41. Procalcitonin 0.12. 06/10/2023 Patient awake and alert She has more shortness of breath today improved with higher oxygen from 2 up to 3 L/min Repeat chest x-ray showing patchy bilateral infiltrates, stable exam. No fever today but hemodynamically stable BMP is unremarkable Patient remains on IV cefepime, IV vancomycin and IV Solu-Medrol 60 mg and normal saline 75 mL/h 06/11/2023 Patient breathing is worse today, she is requiring nonrebreather 60 L/min with FiO2 of 90% and also she is tachypneic and anxious, As per staff patient and family declining intubation and if she deteriorates she might need to be placed on BiPAP WBC is 22.3, hemoglobin stable 9.7 She is currently covered with IV cefepime and IV vancomycin and IV Solu-Medrol. IV fluids was discontinued 06/12/2023 patient awake and alert, in mild distress because of her tachypnea but is improving Oxygen requirement down to 45 L/m No other new complaints. She remains on IV Solu-Medrol 60 mg in the broad-spectrum antibiotics cefepime and IV vancomycin 06/13/2023 Patient sitting up in chair, her breathing rate is similar to yesterday She is still on high flow nasal cannula at 45 L/min She remains on IV cefepime and Vanco vancomycin, she is on IV Solu-Medrol. No IV fluid Daughter at bedside and all questions answered and they are agreeable with the plan I am resuming the care of the patient on 06/18/2023 Patient was looking tired today, awake and alert but she was short of breath Although oxygen saturation show improvement down to 40 L/min compared to yesterday 45 L/min. After rounding I got a call from the nurse patient is becoming tachycardic, EKG showing A-fib and RVR. Heart rate went up to 174 and patient was hypotensive therefore we transferred the patient to the intensive care unit and amiodarone bolus and drip was started. Cardiology team evaluated the patient and patient is status post cardioversion which she changed back to sinus rhythm. Hypokalemia 2.7 been replaced. Also patient started on metoprolol 100 mg 3 times daily and IV heparin drip. Currently patient looks more comfortable and heart rate and blood pressure improved and stabilized, heart rate is in 65. Chest x-ray repeated today showing bilateral infiltrates slightly better compared to last chest x-ray, consistent with pulmonary edema with proBNP is elevated to 430. While pro- Calcitonin is low or mildly elevated 0.12. Patient also kept on IV Solu-Medrol 40 mg instead of 60 mg yesterday. Is given twice daily. Glucose is elevated and patient started on Levemir 10 units daily 06/20/2023 Patient seen and examined at bedside Related is improving today her oxygen requirement dropped from 15 L to 4 L IV Solu-Medrol switched to prednisone 20 mg daily. Patient continued with IV heparin drip and Coumadin for her new onset A-fib. Currently rate controlled She complains from constipation Colace added No other new complaint 06/21/2023 Patient oxygen status; from 15 L/min 2 days ago and currently on 2 L oxygen via nasal cannula She is on constipation placed on Colace She has some low back pain, ordered lidocaine She is on cefepime and prednisone 20 mg Continue with anticoagulation for warfarin and monitor INR after 2-3 06/22/2023 Patient looks little tired, she is lying in bed she is generally weak Her breathing is improved to 2 L/min Creatinine went up to 1.4. Lasix drip was discontinued Coumadin is on hold for INR 4.8 Monitor labs tomorrow 06/23. Patient seen and examined. Patient states she is doing much better. Complaining of constipation. Gets short of breath on exertion. 06/24. Patient seen and examined. Patient continues to feel well. INR this m orning is 2.4. Breathing is improving. Denies any swelling of feet REVIEW OF SYSTEMS: CONSTITUTIONAL: No fever, no malaise,. CARDIOVASCULAR: No chest pain, no palpitations, no syncope. PULMONARY: As mentioned above GASTROINTESTINAL: No diarrhea, no nausea, no vomiting, no abdominal pain. NEUROLOGICAL: No headaches, no weakness, PHYSICAL EXAMINATION: GENERAL: The patient is alert and oriented x3, not in any acute distress. Well developed, well nourished. HEENT: Pupils are round and equally reacting to light. EOMI. No scleral icterus. No conjunctival pallor. Normocephalic, atraumatic. No pharyngeal erythema. No thyromegaly. CARDIOVASCULAR: S1 and S2 present. Murmur audible PULMONARY: Diminished breath sounds at bases, no wheezing or crackles. ABDOMEN: Soft, nontender, nondistended, normoactive bowel sounds. No palpable organomegaly. MUSCULOSKELETAL: No joint swelling or deformity. EXTREMITIES: No cyanosis, clubbing, or pedal edema. NEUROLOGICAL: Gross neurological examination did not reveal any focal deficits. SKIN: No rashes. Assessment and plan Acute hypoxic respiratory failure most likely secondary to pulmonary edema related to her valvular heart disease. hospital-acquired pneumonia versus ongoing/worsening COVID-19 pneumonia. New onset atrial fibrillation with RVR. Acute kidney injury, related to prerenal factors secondary to aggressive diuresis. Acute exacerbation of mild intermittent chronic bronchial asthma History of coronary artery disease with previous PCI/stent x3 History of hyperlipidemia History of hypertension Moderate to severe mitral calcification and moderate to severe mitral stenosis and mild aortic regurgitation and stenosis. Pulmonary hypertension WHO class II Rheumatoid arthritis History of hypothyroidism Lifelong non-smoker Monitor vital signs Monitor CBC Monitor CMP Continue telemetry monitoring Continue amiodarone 400 mg p.o. twice a day Continue metoprolol 50 mg p.o. twice a day Continue Lasix 40 mg p.o. daily Continue Coumadin pharmacy to dose Titrate the FiO2 as tolerated Continue prednisone 20 mg p.o. daily Cardiology following Pulmonology following Labs and medication were reviewed.. Continue same treatment. Continue with symptomatic treatment. Resume home medication. Monitor labs and vitals. DVT and GI prophylaxis. Further recommendations as per clinical course of the patient Dictation was produced using [employer] dictation software. please excuse any grammatical, word or spelling errors. Objective - Vital Signs Vital signs: Vital Signs Temp 97.9 F 06/25/23 07:20 Pulse 60 06/25/23 07:20 Resp 18 06/25/23 07:20 BP 110/55 06/25/23 07:20 Pulse Ox 99 06/25/23 07:20 FiO2 35 06/20/23 13:00 Intake & Output 06/24/23 06/25/23 06/25/23 18:59 06:59 18:59 Output Total 100 500 Balance -100 -500 Output: Urine 100 500 Other: Voiding Method Indwelling Catheter Indwelling Catheter - Labs CBC & Chem 7: 06/24/23 05:30 06/24/23 05:30 Labs: Abnormal Lab Results - Last 24 Hours (Table) 06/24/23 06/24/23 06/24/23 Range/Units 11:34 17:29 20:36 PT (10.0-12.5) sec INR (<1.2) POC Glucose (mg/dL) 142 H 245 H 358 H (70-110) mg/dL 06/25/23 06/25/23 Range/Units 05:58 07:40 PT 23.8 H (10.0-12.5) sec INR 2.4 H (<1.2) POC Glucose (mg/dL) 115 H (70-110) mg/dL
[2023-06-25 17:06] LABS: Glucose,Whole Blood 191 mg/dL (70-110)
[2023-06-25] MEDS: WARFARIN 2 MG TAB PO ONE (18:10)
[2023-06-25 19:51] LABS: Glucose,Whole Blood 275 mg/dL (70-110)
[2023-06-26 05:31] LABS: Glucose,Whole Blood 91 mg/dL (70-110)
--- NOTE | 2023-06-26 05:43 | P.PN ---
Subjective 82-year-old female, history of hypertension, hyperlipidemia, mitral valve prolapse, hypothyroidism, rheumatoid arthritis, CHF present to the emergency department with difficulty breathing. Onset was yesterday. Patient has had a cough for over a week. Patient has occasional yellow sputum. Patient did have COVID-19 pneumonia couple weeks ago and was in the hospital and discharged home. Patient is unaware of any fevers at home. Patient has chronic interstitial lung disease. She was just recently discharged from here on the 2023 after being treated for COVID-19 pneumonia. She did received remdesivir, bronchodilators and steroids. She is presented back to the emergency room this morning June 09, 2023 with complaints of increasing shortness of breath cough and congestion that started last evening. She did utilize her 's home oxygen without much improvement. She herself is not on home oxygen. X-ray shows patchy bilateral lung infiltrates compatible with atypical pneumonia possibly ongoing COVID-pneumonia. Suspect some underlying interstitial lung disease as well. White count 16.9. Hemoglobin 10.2. Platelets 265. Sodium 137. Potassium 4.1. Bicarb 29. BUN 21. Creatinine 0.51. proBNP 2430. AST 69. ALT 41. Procalcitonin 0.12. 06/10/2023 Patient awake and alert She has more shortness of breath today improved with higher oxygen from 2 up to 3 L/min Repeat chest x-ray showing patchy bilateral infiltrates, stable exam. No fever today but hemodynamically stable BMP is unremarkable Patient remains on IV cefepime, IV vancomycin and IV Solu-Medrol 60 mg and normal saline 75 mL/h 06/11/2023 Patient breathing is worse today, she is requiring nonrebreather 60 L/min with FiO2 of 90% and also she is tachypneic and anxious, As per staff patient and family declining intubation and if she deteriorates she might need to be placed on BiPAP WBC is 22.3, hemoglobin stable 9.7 She is currently covered with IV cefepime and IV vancomycin and IV Solu-Medrol. IV fluids was discontinued 06/12/2023 patient awake and alert, in mild distress because of her tachypnea but is improving Oxygen requirement down to 45 L/m No other new complaints. She remains on IV Solu-Medrol 60 mg in the broad-spectrum antibiotics cefepime and IV vancomycin 06/13/2023 Patient sitting up in chair, her breathing rate is similar to yesterday She is still on high flow nasal cannula at 45 L/min She remains on IV cefepime and Vanco vancomycin, she is on IV Solu-Medrol. No IV fluid Daughter at bedside and all questions answered and they are agreeable with the plan I am resuming the care of the patient on 06/18/2023 Patient was looking tired today, awake and alert but she was short of breath Although oxygen saturation show improvement down to 40 L/min compared to yesterday 45 L/min. After rounding I got a call from the nurse patient is becoming tachycardic, EKG showing A-fib and RVR. Heart rate went up to 174 and patient was hypotensive therefore we transferred the patient to the intensive care unit and amiodarone bolus and drip was started. Cardiology team evaluated the patient and patient is status post cardioversion which she changed back to sinus rhythm. Hypokalemia 2.7 been replaced. Also patient started on metoprolol 100 mg 3 times daily and IV heparin drip. Currently patient looks more comfortable and heart rate and blood pressure improved and stabilized, heart rate is in 65. Chest x-ray repeated today showing bilateral infiltrates slightly better compared to last chest x-ray, consistent with pulmonary edema with proBNP is elevated to 430. While pro- Calcitonin is low or mildly elevated 0.12. Patient also kept on IV Solu-Medrol 40 mg instead of 60 mg yesterday. Is given twice daily. Glucose is elevated and patient started on Levemir 10 units daily 06/20/2023 Patient seen and examined at bedside Related is improving today her oxygen requirement dropped from 15 L to 4 L IV Solu-Medrol switched to prednisone 20 mg daily. Patient continued with IV heparin drip and Coumadin for her new onset A-fib. Currently rate controlled She complains from constipation Colace added No other new complaint 06/21/2023 Patient oxygen status; from 15 L/min 2 days ago and currently on 2 L oxygen via nasal cannula She is on constipation placed on Colace She has some low back pain, ordered lidocaine She is on cefepime and prednisone 20 mg Continue with anticoagulation for warfarin and monitor INR after 2-3 06/22/2023 Patient looks little tired, she is lying in bed she is generally weak Her breathing is improved to 2 L/min Creatinine went up to 1.4. Belen bourneip was discontinued Coumadin is on hold for INR 4.8 Monitor labs tomorrow 06/23/2023 pt is getting up , in chair no chest pain , no dyspnea no new complaint monitor INR, Today INR is 3.5 on colace for constipation pt will be transferred out of the icu soon Objective - Vital Signs Vital signs: Vital Signs Temp 97.9 F 06/23/23 12:00 Pulse 58 L 06/23/23 12:00 Resp 15 06/23/23 12:00 BP 99/61 06/23/23 12:00 Pulse Ox 98 06/23/23 12:00 FiO2 35 06/20/23 13:00 Intake & Output 06/22/23 06/23/23 06/23/23 18:59 06:59 18:59 Intake Total 280 200 250 Output Total 770 340 250 Balance -490 -140 0 Weight 49.4 kg Intake: IV 40 0.9 Normal Saline @ KVO 40 10mL/hr Oral 240 200 250 Output: Urine 770 340 250 Other: Voiding Method Indwelling Catheter Indwelling Catheter Indwelling Catheter - Exam GENERAL: The patient is alert and oriented x3, not in any acute distress. Well developed, well nourished. HEENT: Pupils are round and equally reacting to light. EOMI. No scleral icterus. No conjunctival pallor. Normocephalic, atraumatic. No pharyngeal erythema. No thyromegaly. CARDIOVASCULAR: S1 and S2 present. No murmurs, rubs, or gallops. -PULMONARY: Chest is clear to auscultation, no wheezing , bilateral crackles. Tachypneic, mild ABDOMEN: Soft, nontender, nondistended, normoactive bowel sounds. No palpable organomegaly. MUSCULOSKELETAL: No joint swelling or deformity. EXTREMITIES: No cyanosis, clubbing, or pedal edema. NEUROLOGICAL: Gross neurological examination did not reveal any focal deficits. SKIN: No rashes. no petechiae. - Labs CBC & Chem 7: 06/25/23 07:40 06/25/23 07:40 Labs: Abnormal Lab Results - Last 24 Hours (Table) 06/22/23 06/23/23 06/23/23 Range/Units 22:36 03:37 03:37 WBC 13.8 H (3.8-10.6) k/uL RBC 2.85 L (3.80-5.40) m/uL Hgb 8.9 L (11.4-16.0) gm/dL Hct 28.8 L (34.0-46.0) % MCV 101.1 H (80.0-100.0) fL RDW 16.4 H (11.5-15.5) % PT 33.9 H (10.0-12.5) sec INR 3.5 H (<1.2) Sodium (137-145) mmol/L Chloride (98-107) mmol/L Carbon Dioxide (22-30) mmol/L BUN (7-17) mg/dL Creatinine (0.52-1.04) mg/dL Glucose (74-99) mg/dL POC Glucose (mg/dL) 197 H (70-110) mg/dL 06/23/23 06/23/23 06/23/23 Range/Units 03:37 06:39 11:04 WBC (3.8-10.6) k/uL RBC (3.80-5.40) m/uL Hgb (11.4-16.0) gm/dL Hct (34.0-46.0) % MCV (80.0-100.0) fL RDW (11.5-15.5) % PT (10.0-12.5) sec INR (<1.2) Sodium 134 L (137-145) mmol/L Chloride 91 L (98-107) mmol/L Carbon Dioxide 38 H (22-30) mmol/L BUN 64 H (7-17) mg/dL Creatinine 1.32 H (0.52-1.04) mg/dL Glucose 118 H (74-99) mg/dL POC Glucose (mg/dL) 160 H 228 H (70-110) mg/dL 06/23/23 Range/Units 16:00 WBC (3.8-10.6) k/uL RBC (3.80-5.40) m/uL Hgb (11.4-16.0) gm/dL Hct (34.0-46.0) % MCV (80.0-100.0) fL RDW (11.5-15.5) % PT (10.0-12.5) sec INR (<1.2) Sodium (137-145) mmol/L Chloride (98-107) mmol/L Carbon Dioxide (22-30) mmol/L BUN (7-17) mg/dL Creatinine (0.52-1.04) mg/dL Glucose (74-99) mg/dL POC Glucose (mg/dL) 143 H (70-110) mg/dL Assessment and Plan Assessment: 1. Acute hypoxic respiratory failure; multifactorial; hospital-acquired pneumonia versus --Increased oxygen requirement to high flow nasal cannula acute diastolic heart failure with ejection fraction 60 to 65% --Lasix drip 2. Acute exacerbation of asthma -IV Solu-Medrol 40 mg every 12 hours; DuoNeb nebulizer treatments 4 times daily and as needed 3. Mild LETICIA; hold off on IV fluid therapy given worsening chest congestion; we will monitor renal function electrolytes closely; avoid nephrotoxins and hypotension 4. Hospital-acquired pneumonia;-- Pulmonary on board and patient has been placed on IV cefepime and vancomycin 5. New onset A-fib and RVR, s/p cardioversion Currently on metoprolol 100 mg and amiodarone. Also patient was started on IV heparin Which is switched to warfarin pharmacy to dose 6. Hypertension; verapamil SR 120 mg daily; metoprolol 100 mg 3 times daily 7. Hyperlipidemia; Lipitor 40 mg daily 8. Hypothyroidism; levothyroxine 112 mcg Saturday through Saturday and 56 mcg Saturday and Saturday 9. Coronary artery disease/CHF; status post PCI/stent x 3; patient remains on aspirin, Lipitor, Imdur -- Lasix 40 mg daily and Farxiga 5 mg daily 10. Mitral stenosis; patient has moderate to severe mitral calcifications causing moderate to severe mitral stenosis and mild aortic regurgitation and stenosis -- Last echocardiogram reveals an EF of 60 to 65% DVT prophylaxis; SCDs/subcu heparin CODE STATUS; full code
[2023-06-26 08:05] LABS: INR 3.1 (<1.2)
[2023-06-26 08:22] VITALS: BP 110/55; PULSE 61; RESP 16; TEMP 97.8
[2023-06-26 11:18] LABS: Basophils # (A) 0.01 X 10*3/uL (0.00-0.10); Basophils % (A) 0.1 %; Eosinophils # (A) 0.01 X 10*3/uL (0.04-0.35); Eosinophils % (A) 0.1 %; HCT 28.7 % (37.2-46.3); HGB 8.6 g/dL (12.0-15.0); Lymphocytes # (A) 1.19 X 10*3/uL (0.90-5.00); Lymphocytes % (A) 7.9 %; MCV 103.6 FL (80.0-97.0); Mean Platelet Volume 11.1 FL (9.5-12.2); Monocytes # (A) 0.85 X 10*3/uL (0.20-1.00); Monocytes % (A) 5.6 %; NRBC Per 100 WBC 0 X 10*3/uL (0.00-0.01); Neutrophils # (A) 12.98 X 10*3/uL (1.80-7.70); Neutrophils % (A) 85.9 %; Platelet Count 287 X 10*3/uL (140-440); RBC 2.77 X 10*6/uL (4.10-5.20)
[2023-06-26 11:46] LABS: ALT 287 U/L (8-44); AST 239 U/L (13-35); Albumin 3.2 g/dL (3.8-4.9); Albumin/Globulin Ratio 1.03 Ratio (1.60-3.17); Alkaline Phosphatase 93 U/L (41-126); Blood Urea Nitrogen 56.6 mg/dL (9.0-27.0); Calcium 9.1 mg/dL (8.7-10.3); Carbon Dioxide 40.1 mmol/L (21.6-31.8); Chloride 91 mmol/L (96-109); Globulin 3.1 g/dL (1.6-3.3); Glucose 76 mg/dL (70-110); Potassium 4.3 mmol/L (3.5-5.5); Sodium 141 mmol/L (135-145); Total Bilirubin 0.7 mg/dL (0.3-1.2); Total Protein 6.3 g/dL (6.2-8.2)
[2023-06-26 12:17] LABS: Glucose,Whole Blood 67 mg/dL (70-110)
--- NOTE | 2023-06-26 12:19 | P.PN ---
Subjective Progress Note Date: 06/26/23 This is a very pleasant 82-year-old female patient with a known history of chronic bronchial asthma, mitral valve prolapse, hypertension, hyperlipidemia, CAD with previous stent, and a lifelong non-smoker. She was just recently discharged from here on the 2023 after being treated for COVID-19 pneumo nitesh. She did received remdesivir, bronchodilators and steroids. She is presented back to the emergency room this morning June 09, 2023 with complaints of increasing shortness of breath cough and congestion that started last evening. She did utilize her 's home oxygen without much improvement. She herself is not on home oxygen. X-ray shows patchy bilateral lung infiltrates compatible with atypical pneumonia possibly ongoing COVID-pneumonia. Suspect some underlying interstitial lung disease as well. White count 16.9. Hemoglobin 10.2. Platelets 265. Sodium 137. Potassium 4.1. Bicarb 29. BUN 21. Creatinine 0.51. proBNP 2430. AST 69. ALT 41. Procalcitonin 0.12. She is seen today in the emergency room in consultation. She is sitting up in the stretcher. Awake and alert in no acute distress. Maintaining O2 saturations in the upper 90s on 2 L/min per nasal cannula. She is afebrile. Hemodynamically stable. The patient is seen today June 10, 2023 in follow-up on the regular medical floor. She is currently sitting up in bed. Awake and alert in no acute distres s. She still has a loose congested cough. Still dyspneic with conversation. Dyspneic with minimal exertion. She is maintaining O2 saturation in the 90s on 3 L/min per nasal cannula. No IV fluids. Her procalcitonin was 0.12. She is continued on vancomycin and cefepime. Her COVID screen today is positive still. Chest x-ray continues to show patchy bilateral infiltrates stable compared to previous. She remains on bronchodilators and steroids. White count 18.9. Hemoglobin 9.5. Platelets 239. Sodium 140. Potassium 4.3. Bicarb 23. BUN 26. Creatinine 0.65. Glucose 138. The patient is seen today June 11, 2023 in follow-up on the regular medical floor. She is currently seen at the bedside. Family is in the room. She had a rough night. She was having increasing shortness of breath cough and congestion. She was increased to 5 L/min per nasal cannula. She was initiated on Tessalon Perles. Her procalcitonin was 0.12. She continues on cefepime and vancomycin. She remains on Symbicort, albuterol, Solu-Medrol. Blood cultures revealed no growth. Nasal swab was negative for MRSA. White count 22.3. Hemoglobin 9.7. Platelets 275. Sodium 143. Potassium 4.6. Bicarb 25. BUN 27. Creatinine 0.7. Glucose 156. Remains on diuretics. Progress note dated June 12, 2023. This is an 82-year-old female that I see in the office for asthma. She presented to the hospital, few days ago, with increasing shortness of breath, and had a chest x-ray that was suggestive of pneumonia. The patient recently had coronavirus infection. Currently, the patient's respiratory status is declining, and she is now on Airvo. Airvo settings include 45 L/min, and 55%, with a saturation of 95%. The patient is not receiving any IV fluids. She is getting both cefepime and vancomycin. In addition, the patient is receiving Solu-Medrol, albuterol inhaler, and Symbicort inhaler. She did test positive for coronavirus, but is unclear as to whether or not this is a residual positive test from her recent episode of coronavirus, or she has coronavirus again. We had a long conversation yesterday about CODE STATUS. She would want to be on the mechanical ventilator, if it came to that. No new labs today. Labs from June 10 have been reviewed. This morning's chest x-ray, may be a bit worse. The patient is seen today June 13, 2023 in follow-up on the regular medical floor. She is currently sitting up in a chair at the bedside. Awake and alert in no acute distress. She is breathing a bit easier today compared to yesterday. Her Airvo has been decreased to 45 L and 50% FiO2 with O2 saturation in the low 90s. Blood cultures revealed no growth. Sputum culture revealed no growth. White count 12.2. Hemoglobin 9.0. Platelets 180. Sodium 143. Potassium 4.6. Bicarb 31. BUN 33. Creatinine 0.7. Glucose 175. She is continued on cefepime. Remains on bronchodilators, steroids, vitamin supplements. Remains on oral diuretics. Progress note dated June 14, 2023. 82-year-old female with a history of asthma, and aortic stenosis. The patient was admitted with a diagnosis of possible pneumonia. The patient had a recent episode of coronavirus infection, and did test positive on this admission again for coronavirus. Today she is sitting in a chair next to her hospital bed. She has been weaned off Airvo, down to high flow nasal cannula at 7 L. She is receiving cefepime. She does feel better. Current labs include a white count of 13.2, hemoglobin 8.7, hematocrit 29.2, and a platelet count of 171,000. The patient is seen today June 15, 2023 in follow-up on the regular medical floor. She is currently sitting up in a chair at the bedside. Awake and alert in no acute distress. Breathing a bit easier today compared to yesterday. She is currently on 7 L high flow nasal cannula maintaining O2 saturation in the low 90s. She is continued on cefepime. Blood cultures revealed no growth. Sputum culture reveals no growth. Glucose 246. She remains on bronchodilators and steroids. Remains on oral diuretics. Lovenox for DVT prophylaxis. Continued on multivitamins. The patient is seen today June 16, 2023 in follow-up on the regular medical floor. She is currently sitting up in a chair at the bedside. Awake and alert. She is back on Airvo high flow oxygen at 40 L and 50% FiO2. She has been very slow to progress. Her chest x-ray shows worsening bilateral infiltrates. She remains on Symbicort, albuterol, Singulair, Solu-Medrol. Remains on antibiotics in the form of cefepime. Continued on vitamin supplements. Remains on oral diuretics. Doppler of the lower extremities are negative for DVT. Blood cultures revealed no growth. Sputum culture revealed no growth. White count 16.4. Hemoglobin 8.7. Platelets 149. Sodium 145. Potassium 4.4. Bicarb 36. BUN 35. Creatinine 0.6. Glucose 178. AST 57. ALT 58. Lovenox for DVT prophylaxis. The patient is seen today June 25, 2023 in follow-up on the regular medical floor. She was transferred out of the intensive care unit yesterday. She is doing quite well. She is sitting up in bed. She is maintaining O2 saturations in the high 90s on 2 L/min per nasal cannula. She remains on Symbicort and albuterol along with vitamin supplements. She is anticoagulated with warfarin. She is on a prednisone taper. She is on oral diuretics. White count 13.0. Hemoglobin 8.8. Platelets 249. INR 2.4. Sodium 140. Potassium 4.2. Bicarb 37. BUN 55. Creatinine 1.0. Glucose 119. The patient is seen today June 26, 2023 in follow-up on the regular medical floor. She is currently resting comfortably in bed. Awake and alert in no acute distress. She denies any worsening shortness of breath, cough or congestion. She is maintaining good O2 saturations in the 90s on 2 L/min per nasal cannula. She is afebrile. Hemodynamically stable. Blood cultures revealed no growth. Sputum culture revealed no growth. White count 15.1. Hemoglobin 8.6. Platelets 287. INR 3.1. Sodium 141. Potassium 4.3. Bicarb 40. BUN 56. Creatinine 1.0. AST 239. ALT 287. She is continued on Symbicort Singulair and albuterol as needed remains on vitamin supplements. Anticoagul ated with warfarin. Objective - Vital Signs Vital signs: Vital Signs Temp 97.8 F 06/26/23 08:00 Pulse 61 06/26/23 08:00 Resp 16 06/26/23 08:00 BP 110/55 06/26/23 08:00 Pulse Ox 99 06/26/23 09:36 FiO2 35 06/20/23 13:00 Intake & Output 06/25/23 06/26/23 06/26/23 18:59 06:59 18:59 Intake Total 233 Output Total 650 Balance 233 -650 Intake: Oral 233 Output: Urine 650 Other: Voiding Method Indwelling Catheter Indwelling Catheter # Bowel Movements 0 - Exam GENERAL EXAM: Alert, pleasant, weak 82-year-old female, on 2 L nasal cannula, in no acute distress. HEAD: Normocephalic. EYES: Normal reaction of pupils, equal size. NOSE: Clear with pink turbinates. THROAT: No erythema or exudates. NECK: No masses, no JVD. CHEST: No chest wall deformity. LUNGS: Equal air entry with coarse crackles in the bilateral bases. CVS: S1 and S2 normal with an audible murmur, regular rhythm. ABDOMEN: No hepatosplenomegaly, normal bowel sounds, no guarding or rigidity. SPINE: No scoliosis or deformity SKIN: No rashes CENTRAL NERVOUS SYSTEM: No focal deficits, tone is normal in all 4 extremities. EXTREMITIES: There is no peripheral edema. No clubbing, no cyanosis. Peripheral pulses are intact. - Labs CBC & Chem 7: 06/26/23 07:09 06/26/23 07:09 Labs: Abnormal Lab Results - Last 24 Hours (Table) 06/25/23 06/25/23 06/25/23 Range/Units 07:40 07:40 12:29 WBC 13.02 H (4.50-10.00) X 10*3/uL RBC 2.81 L (4.10-5.20) X 10*6/uL Hgb 8.8 L (12.0-15.0) g/dL Hct 29.3 L (37.2-46.3) % MCV 104.3 H (80.0-97.0) FL MCHC 30.0 L (32.0-37.0) g/dL RDW 16.8 H (11.5-14.5) % Immature Gran # 0.06 H (0.00-0.04) X 10*3/uL Neutrophils # 10.98 H (1.80-7.70) X 10*3/uL Eosinophils # 0.02 L (0.04-0.35) X 10*3/uL PT (10.0-12.5) sec INR (<1.2) Chloride 92 L (96-109) mmol/L Carbon Dioxide 37.1 H (21.6-31.8) mmol/L BUN 54.8 H (9.0-27.0) mg/dL Est GFR (CKD-EPI) 57 L (>=60) BUN/Creatinine Ratio 54.80 H (12.00-20.00) Ratio Glucose 119 H (70-110) mg/dL POC Glucose (mg/dL) 145 H (70-110) mg/dL AST 212 H (13-35) U/L ALT 241 H (8-44) U/L Total Protein 5.7 L (6.2-8.2) g/dL Albumin 2.9 L (3.8-4.9) g/dL Albumin/Globulin Ratio 1.04 L (1.60-3.17) Ratio 06/25/23 06/25/23 06/26/23 Range/Units 17:04 19:49 07:09 WBC (4.50-10.00) X 10*3/uL RBC (4.10-5.20) X 10*6/uL Hgb (12.0-15.0) g/dL Hct (37.2-46.3) % MCV (80.0-97.0) FL MCHC (32.0-37.0) g/dL RDW (11.5-14.5) % Immature Gran # (0.00-0.04) X 10*3/uL Neutrophils # (1.80-7.70) X 10*3/uL Eosinophils # (0.04-0.35) X 10*3/uL PT 30.0 H (10.0-12.5) sec INR 3.1 H (<1.2) Chloride (96-109) mmol/L Carbon Dioxide (21.6-31.8) mmol/L BUN (9.0-27.0) mg/dL Est GFR (CKD-EPI) (>=60) BUN/Creatinine Ratio (12.00-20.00) Ratio Glucose (70-110) mg/dL POC Glucose (mg/dL) 191 H 275 H (70-110) mg/dL AST (13-35) U/L ALT (8-44) U/L Total Protein (6.2-8.2) g/dL Albumin (3.8-4.9) g/dL Albumin/Globulin Ratio (1.60-3.17) Ratio 06/26/23 06/26/23 Range/Units 07:09 07:09 WBC 15.10 H (4.50-10.00) X 10*3/uL RBC 2.77 L (4.10-5.20) X 10*6/uL Hgb 8.6 L (12.0-15.0) g/dL Hct 28.7 L (37.2-46.3) % MCV 103.6 H (80.0-97.0) FL MCHC 30.0 L (32.0-37.0) g/dL RDW 17.0 H (11.5-14.5) % Immature Gran # 0.06 H (0.00-0.04) X 10*3/uL Neutrophils # 12.98 H (1.80-7.70) X 10*3/uL Eosinophils # 0.01 L (0.04-0.35) X 10*3/uL PT (10.0-12.5) sec INR (<1.2) Chloride 91 L (96-109) mmol/L Carbon Dioxide 40.1 A* (21.6-31.8) mmol/L BUN 56.6 H (9.0-27.0) mg/dL Est GFR (CKD-EPI) 57 L (>=60) BUN/Creatinine Ratio 56.60 H (12.00-20.00) Ratio Glucose (70-110) mg/dL POC Glucose (mg/dL) (70-110) mg/dL AST 239 H (13-35) U/L ALT 287 H (8-44) U/L Total Protein (6.2-8.2) g/dL Albumin 3.2 L (3.8-4.9) g/dL Albumin/Globulin Ratio 1.03 L (1.60-3.17) Ratio Assessment and Plan Assessment: Acute hypoxic respiratory failure most likely secondary to pulmonary edema related to her valvular heart disease. The patient has severe mitral stenosis, mild aortic stenosis in addition to severe pulmonary hypertension. LV function is preserved. Other less likely possibilities include hospital-acquired pneumonia versus ongoing/worsening COVID-19 pneumonia. The patient developed diffuse bilateral pulmonary filtrates. She is improved considerably and she is currently on 2 L of oxygen by nasal cannula. Chest x-ray is also improving. New onset atrial fibrillation with RVR. The patient became hemodynamically unstable/hypotensive and the patient received cardioversion. Currently back to normal sinus rhythm. Loaded with amiodarone and amiodarone as a maintenance. This has been switched to oral amiodarone. The patient is also on metoprolol 50 mg p.o. twice a day. Cardiac rhythm is sinus. Patient is anticoagulated with warfarin and INR is therapeutic at 3.1 Acute kidney injury, related to prerenal factors secondary to aggressive diuresis. Patient has been negative fluid balance. The patient was taken off the Lasix drip and the patient is currently on Lasix 40 mg p.o. daily. Creatinine is improved and currently 1.0 Acute exacerbation of mild intermittent chronic bronchial asthma Recent discharge on May 31, 2023 for COVID-19 pneumonia, treated with remdesivir. Possible underlying interstitial lung disease History of coronary artery disease with previous PCI/stent x3 History of hyperlipidemia History of hypertension Moderate to severe mitral calcification and moderate to severe mitral stenosis and mild aortic regurgitation and stenosis. LV function is preserved and the patient has an ejection fraction of 60 to 65%. Rheumatoid arthritis History of hypothyroidism Lifelong non-smoker Plan: The patient was seen and evaluated Labs and medications reviewed Stable and on 2 L nasal cannula Continue the current treatment plan Plan is for [facility] on the [place] at discharge This patient was seen independently by the pulmonary nurse practitioner addressing pulmonary issues I have personally seen and examined the patient, performed the documentation and the assessment and plan as written. Number of minutes spent on the visit: 22.
[2023-06-26 12:35] LABS: Glucose,Whole Blood 66 mg/dL (70-110)
--- NOTE | 2023-06-26 12:48 | P.DS ---
Providers Date of admission: 06/09/23 09:41 Expected date of discharge: 06/26/23 Attending physician: Lincoln Duron MD Consults: 06/09/23 09:40 Consult Physician Routine Consulting Provider: Oliverio Sarabia Consult Reason/Comments: Dyspnea Do you want consulting provider notified?: Already Contacted 06/17/23 12:44 Consult Physician Routine Consulting Provider: Kaleb Jain Consult Reason/Comments: Severe MS, CHF Do you want consulting provider notified?: Yes Primary care physician: Paul Bonilla Hospital Course: Discharge diagnoses; Acute hypoxic respiratory failure most likely secondary to pulmonary edema related to her valvular heart disease. hospital-acquired pneumonia versus ongoing/worsening COVID-19 pneumonia. New onset atrial fibrillation with RVR. Acute kidney injury, related to prerenal factors secondary to aggressive diuresis. Acute exacerbation of mild intermittent chronic bronchial asthma History of coronary artery disease with previous PCI/stent x3 History of hyperlipidemia History of hypertension Moderate to severe mitral calcification and moderate to severe mitral stenosis and mild aortic regurgitation and stenosis. Pulmonary hypertension WHO class II Rheumatoid arthritis History of hypothyroidism Lifelong non-smoker Hospital course; 82-year-old female, history of hypertension, hyperlipidemia, mitral valve prolapse, hypothyroidism, rheumatoid arthritis, CHF present to the emergency department with difficulty breathing. Onset was yesterday. Patient has had a cough for over a week. Patient has occasional yellow sputum. Patient did have COVID-19 pneumonia couple weeks ago and was in the hospital and discharged home. Patient is unaware of any fevers at home. Patient has chronic interstitial lung disease. She was just recently discharged from here on the 2023 after being treated for COVID-19 pneumonia. She did received remdesivir, bronchodilators and steroids. She is presented back to the emergency room this morning June 09, 2023 with complaints of increasing shortness of breath cough and congestion that started last evening. She did utilize her 's home oxygen without much improvement. She herself is not on home oxygen. X-ray shows patchy bilateral lung infiltrates compatible with atypical pneumonia possibly ongoing COVID-pneumonia. Suspect some underlying interstitial lung disease as well. White count 16.9. Hemoglobin 10.2. Platelets 265. Sodium 137. Potassium 4.1. Bicarb 29. BUN 21. Creatinine 0.51. proBNP 2430. AST 69. ALT 41. Procalcitonin 0.12. 06/10/2023 Patient awake and alert She has more shortness of breath today improved with higher oxygen from 2 up to 3 L/min Repeat chest x-ray showing patchy bilateral infiltrates, stable exam. No fever today but hemodynamically stable BMP is unremarkable Patient remains on IV cefepime, IV vancomycin and IV Solu-Medrol 60 mg and normal saline 75 mL/h 06/11/2023 Patient breathing is worse today, she is requiring nonrebreather 60 L/min with FiO2 of 90% and also she is tachypneic and anxious, As per staff patient and family declining intubation and if she deteriorates she might need to be placed on BiPAP WBC is 22.3, hemoglobin stable 9.7 She is currently covered with IV cefepime and IV vancomycin and IV Solu-Medrol. IV fluids was discontinued 06/12/2023 patient awake and alert, in mild distress because of her tachypnea but is improving Oxygen requirement down to 45 L/m No other new complaints. She remains on IV Solu-Medrol 60 mg in the broad-spectrum antibiotics cefepime and IV vancomycin 06/13/2023 Patient sitting up in chair, her breathing rate is similar to yesterday She is still on high flow nasal cannula at 45 L/min She remains on IV cefepime and Vanco vancomycin, she is on IV Solu-Medrol. No IV fluid Daughter at bedside and all questions answered and they are agreeable with the plan I am resuming the care of the patient on 06/18/2023 Patient was looking tired today, awake and alert but she was short of breath Although oxygen saturation show improvement down to 40 L/min compared to yesterday 45 L/min. After rounding I got a call from the nurse patient is becoming tachycardic, EKG showing A-fib and RVR. Heart rate went up to 174 and patient was hypotensive therefore we transferred the patient to the intensive care unit and amiodarone bolus and drip was started. Cardiology team evaluated the patient and patient is status post cardioversion which she changed back to sinus rhythm. Hypokalemia 2.7 been replaced. Also patient started on metoprolol 100 mg 3 times daily and IV heparin drip. Currently patient looks more comfortable and heart rate and blood pressure improved and stabilized, heart rate is in 65. Chest x-ray repeated today showing bilateral infiltrates slightly better compared to last chest x-ray, consistent with pulmonary edema with proBNP is elevated to 430. While pro- Calcitonin is low or mildly elevated 0.12. Patient also kept on IV Solu-Medrol 40 mg instead of 60 mg yesterday. Is given twice daily. Glucose is elevated and patient started on Levemir 10 units daily 06/20/2023 Patient seen and examined at bedside Related is improving today her oxygen requirement dropped from 15 L to 4 L IV Solu-Medrol switched to prednisone 20 mg daily. Patient continued with IV heparin drip and Coumadin for her new onset A-fib. Currently rate controlled She complains from constipation Colace added No other new complaint 06/21/2023 Patient oxygen status; from 15 L/min 2 days ago and currently on 2 L oxygen via nasal cannula She is on constipation placed on Colace She has some low back pain, ordered lidocaine She is on cefepime and prednisone 20 mg Continue with anticoagulation for warfarin and monitor INR after 2-3 06/22/2023 Patient looks little tired, she is lying in bed she is generally weak Her breathing is improved to 2 L/min Creatinine went up to 1.4. Lasix drip was discontinued Coumadin is on hold for INR 4.8 Monitor labs tomorrow 06/23. Patient seen and examined. Patient states she is doing much better. Complaining of constipation. Gets short of breath on exertion. 06/24. Patient seen and examined. Patient continues to feel well. INR this morning is 2.4. Breathing is improving. Denies any swelling of feet 06/25. Patient seen and examined. Pulmonology cleared the patient for discharge. Being discharged in stable condition PHYSICAL EXAMINATION: GENERAL: The patient is alert and oriented x3, not in any acute distress. Well developed, well nourished. HEENT: Pupils are round and equally reacting to light. EOMI. No scleral icterus. No conjunctival pallor. Normocephalic, atraumatic. No pharyngeal erythema. No thyromegaly. CARDIOVASCULAR: S1 and S2 present. Murmur audible PULMONARY: Diminished breath sounds at bases, no wheezing or crackles. ABDOMEN: Soft, nontender, nondistended, normoactive bowel sounds. No palpable organomegaly. MUSCULOSKELETAL: No joint swelling or deformity. EXTREMITIES: No cyanosis, clubbing, or pedal edema. NEUROLOGICAL: Gross neurological examination did not reveal any focal deficits. SKIN: No rashes. Dictation was produced using Caset[employer] dictation software. please excuse any g rammatical, word or spelling errors. Patient Condition at Discharge: Good Plan - Discharge Summary New Discharge Prescriptions: New Amiodarone [Cordarone] 400 mg PO BID tab Warfarin [Coumadin] 0.5 mg PO DAILY #3 tab INSULIN ASPART (NovoLOG) [NovoLOG (formulary)] 0 unit SQ ACHS each Benzonatate [Tessalon Perles] 200 mg PO TID PRN cap PRN Reason: Cough predniSONE [Deltasone] 20 mg PO DAILY tab Metoprolol Tartrate [Lopressor] 50 mg PO BID tab Nystatin 100,000 Unit/ml Susp [Mycostatin Oral Susp] 5 ml PO QID 7 Days #140 ml Continue Omeprazole 20 mg PO DAILY Multivit-Min/FA/Lycopen/Lutein [Centrum Silver Tablet] 1 tab PO DAILY Budesonide-Formot 160-4.5 Mcg [Symbicort 160-4.5 Mcg Inhaler] 2 puff INHALATION RT-BID #1 inhaler Levothyroxine Sodium [Synthroid] 56 mcg PO SUSA Empagliflozin [Jardiance] 10 mg PO DAILY Acetaminophen [Tylenol Arthritis] 650 mg PO Q8HR PRN PRN Reason: Pain Zinc 200mg 200 mg PO DAILY Calcium Carbonate [Calcium] 600 mg PO DAILY Aspirin 81 mg PO AC-BRKFST Magnesium Oxide [Darden] 500 mg PO DAILY Levothyroxine Sodium [Synthroid] 112 mcg PO MOTUWETHFR Cholecalciferol [Vitamin D3 (25 Mcg = 1000 Iu)] 50 mcg PO DAILY Montelukast [Singulair] 10 mg PO HS Alendronate Sodium [Fosamax] 70 mg PO MO Ascorbic Acid [Vitamin C] 1,000 mg PO DAILY Atorvastatin [Lipitor] 80 mg PO DAILY Furosemide [Lasix] 40 mg PO DAILY Albuterol Inhaler [Ventolin Hfa Inhaler] 2 puff INHALATION RT-QID PRN #1 each PRN Reason: Shortness Of Breath ALPRAZolam [Xanax] 0.25 mg PO Q8HR PRN 3 Days #9 tab PRN Reason: Anxiety Discontinued modafiniL [Provigil] 200 mg PO DAILY PRN PRN Reason: excessive sleepiness Isosorbide Mononitrate ER [Imdur] 30 mg PO DAILY 30 Days #30 tab Metoprolol Succinate (ER) [Toprol XL] 100 mg PO DAILY predniSONE See Taper PO DIRECTED #30 tab Verapamil HCl [Verapamil ER PM] 1 cap PO DAILY Discharge Medication List Multivit-Min/FA/Lycopen/Lutein [Centrum Silver Tablet] 1 tab PO DAILY 03/29/16 [History] Omeprazole 20 mg PO DAILY 03/29/16 [History] Budesonide-Formot 160-4.5 Mcg [Symbicort 160-4.5 Mcg Inhaler] 2 puff INHALATION RT-BID #1 inhaler 04/06/16 [Rx] Alendronate Sodium [Fosamax] 70 mg PO MO 08/09/21 [History] Cholecalciferol [Vitamin D3 (25 Mcg = 1000 Iu)] 50 mcg PO DAILY 08/09/21 [History] Levothyroxine Sodium [Synthroid] 112 mcg PO MOTUWETHFR 08/09/21 [History] Magnesium Oxide [Draden] 500 mg PO DAILY 08/09/21 [History] Montelukast [Singulair] 10 mg PO HS 08/09/21 [History] Acetaminophen [Tylenol Arthritis] 650 mg PO Q8HR PRN 03/19/22 [History] Empagliflozin [Jardiance] 10 mg PO DAILY 03/19/22 [History] Levothyroxine Sodium [Synthroid] 56 mcg PO SUSA 03/19/22 [History] Ascorbic Acid [Vitamin C] 1,000 mg PO DAILY 05/26/23 [History] Aspirin 81 mg PO AC-BRKFST 05/26/23 [History] Atorvastatin [Lipitor] 80 mg PO DAILY 05/26/23 [History] Calcium Carbonate [Calcium] 600 mg PO DAILY 05/26/23 [History] Furosemide [Lasix] 40 mg PO DAILY 05/26/23 [History] Zinc 200mg 200 mg PO DAILY 05/26/23 [History] Albuterol Inhaler [Ventolin Hfa Inhaler] 2 puff INHALATION RT-QID PRN #1 each 05/31/23 [Rx] ALPRAZolam [Xanax] 0.25 mg PO Q8HR PRN 3 Days #9 tab 06/26/23 [Rx] Amiodarone [Cordarone] 400 mg PO BID tab 06/26/23 [Rx] Benzonatate [Tessalon Perles] 200 mg PO TID PRN cap 06/26/23 [Rx] INSULIN ASPART (NovoLOG) [NovoLOG (formulary)] 0 unit SQ ACHS each 06/26/23 [Rx] Metoprolol Tartrate [Lopressor] 50 mg PO BID tab 06/26/23 [Rx] Nystatin 100,000 Unit/ml Susp [Mycostatin Oral Susp] 5 ml PO QID 7 Days #140 ml 06/26/23 [Rx] Warfarin [Coumadin] 0.5 mg PO DAILY #3 tab 06/26/23 [Rx] predniSONE [Deltasone] 20 mg PO DAILY tab 06/26/23 [Rx] Follow up Appointment(s)/Referral(s): Kaleb Jain DO [STAFF PHYSICIAN] - 07/03/23 8:45 am Abbe Freed DO [Doctor of Osteopathic Medicine] - 07/12/23 10:00 am Paul Bonilla DO [Primary Care Provider] - 1-2 days Discharge Disposition: TRANSFER TO SNF/ECF
[2023-06-26 12:52] LABS: Glucose,Whole Blood 90 mg/dL (70-110)
[2023-06-26] MEDS: NYSTATIN 100,000 UNIT/ML SUSP 500,000 UNIT/5 ML CUP PO SCH (14:14)
[2023-06-26] MEDS: ZINC OXIDE PASTE (Z-GUARD) 1 APPLIC TOPICAL PRN (14:15)
[2023-06-26] MEDS ORDERED: WARFARIN 0.5 MG TAB PO ONE (18:00)
== END 2023-06-26 14:48 | DRG 177 ==
LOC: EC 07:20 → 4SSUR 09:41 → 2SICU 06-18 10:14 → 6NMEDSUR 06-24 16:13
PROVIDERS: ADMIT Internal Medicine; ATTEND Internal Medicine
PROC: XW033E5 Introduction of Remdesivir Anti-infective into Peripheral Vein, Percutaneous Approach, New Technology Group 5 (ICD-10-PCS; principal; 2023-06-09)
PROC: 5A2204Z Restoration of Cardiac Rhythm, Single (ICD-10-PCS; 2023-06-18)
DX: U07.1 COVID-19 (principal); I50.31 Acute diastolic (congestive) heart failure; J12.82 Pneumonia due to coronavirus disease 2019; J96.01 Acute respiratory failure with hypoxia; N17.9 Acute kidney failure, unspecified; J45.901 Unspecified asthma with (acute) exacerbation; J44.0 Chronic obstructive pulmonary disease with (acute) lower respiratory infection; I11.0 Hypertensive heart disease with heart failure; I48.91 Unspecified atrial fibrillation; E87.6 Hypokalemia; I27.20 Pulmonary hypertension, unspecified; K59.00 Constipation, unspecified; T50.2X5A Adverse effect of carbonic-anhydrase inhibitors, benzothiadiazides and other diuretics, initial encounter; X58.XXXA Exposure to other specified factors, initial encounter; M06.9 Rheumatoid arthritis, unspecified; E03.9 Hypothyroidism, unspecified; Z79.890 Hormone replacement therapy; E78.5 Hyperlipidemia, unspecified; I08.0 Rheumatic disorders of both mitral and aortic valves; J84.89 Other specified interstitial pulmonary diseases; Y95 Nosocomial condition; I25.2 Old myocardial infarction; Z88.1 Allergy status to other antibiotic agents; Z88.8 Allergy status to other drugs, medicaments and biological substances; J84.10 Pulmonary fibrosis, unspecified; Z79.51 Long term (current) use of inhaled steroids; Z79.01 Long term (current) use of anticoagulants; Z79.82 Long term (current) use of aspirin; Z79.84 Long term (current) use of oral hypoglycemic drugs; Z79.83 Long term (current) use of bisphosphonates; Z79.899 Other long term (current) drug therapy; Z87.01 Personal history of pneumonia (recurrent); Z95.5 Presence of coronary angioplasty implant and graft; Z96.651 Presence of right artificial knee joint
CPT/HCPCS: 36415; 36600; 71045; 71046; 74018; 80048; 80053; 81001; 83605; 83735; 83880; 84132; 84145; 84443; 85025; 85027; 85610; 85730; 87040; 87070; 87205; 87449; 87635; 92960; 93005; 93970; 94640; 94760; 96361; 96365; 96366; 96367; 96375; 96376; 99291

== ENCOUNTER 2023-06-28 23:30 | Inpatient (IN) | payer MEDICARE, BC ==
--- NOTE | 2023-06-28 23:32 | ED ---
SOB HPI - General Stated Complaint: Hypoxia Time Seen by Provider: 06/28/23 23:31 Source: RN notes reviewed, old records reviewed Limitations: no limitations - History of Present Illness Initial Comments: This is a 82-year-old female to the ER for evaluation today. Patient presents today for evaluation of severe hypoxia. Patient is a poor historian regarding clinical events with recent hospital and patient hospitalization for similar symptoms but worsening currently. Patient does have known pneumonia and known coronavirus and known hypoxic respiratory distress. MD Complaint: shortness of breath, anxiety Severity: severe Consistency: constant Improves With: nothing Worsens With: nothing Known History Of: COPD, asthma, congestive heart failure Context: recent URI, recent illness Associated Symptoms: denies other symptoms - Related Data Home Medications Medication Instructions Recorded Confirmed Alendronate Sodium [Fosamax] 70 mg PO MO@0900 08/09/21 06/29/23 Cholecalciferol [Vitamin D3 (25 50 mcg PO DAILY 08/09/21 06/29/23 Mcg = 1000 Iu)] Levothyroxine Sodium [Synthroid] 112 mcg PO MOTUWETHFR@0600 08/09/21 06/29/23 Montelukast [Singulair] 10 mg PO HS 08/09/21 06/29/23 Acetaminophen [Tylenol Arthritis] 650 mg PO Q8HR PRN 03/19/22 06/29/23 Empagliflozin [Jardiance] 10 mg PO DAILY 03/19/22 06/29/23 Levothyroxine Sodium [Synthroid] 56 mcg PO SUSA@0600 03/19/22 06/29/23 Aspirin 81 mg PO DAILY@0600 05/26/23 06/29/23 Atorvastatin [Lipitor] 80 mg PO HS 05/26/23 06/29/23 Calcium Carbonate [Calcium] 600 mg PO DAILY 05/26/23 06/29/23 Furosemide [Lasix] 40 mg PO DAILY@0600 05/26/23 06/29/23 Ascorbic Acid [Vitamin C] 1,000 mg PO DAILY 06/29/23 06/29/23 INSULIN ASPART (NovoLOG) [NovoLOG See Protocol SQ ACHS 06/29/23 06/29/23 (formulary)] Magnesium Oxide [Mag-Ox] 400 mg PO DAILY 06/29/23 06/29/23 Metoprolol Tartrate [Lopressor] 50 mg PO Q12H 06/29/23 06/29/23 Multivitamins, Thera [Multivitamin 1 tab PO DAILY 06/29/23 06/29/23 (formulary)] Omeprazole Magnesium [PriLOSEC OTC] 20 mg PO HS 06/29/23 06/29/23 Sulfamethox-Tmp 800-160Mg [Bactrim 1 tab PO BID 06/29/23 06/29/23 DS 800-160 mg] Warfarin [Coumadin] 0.5 mg PO DAILY@1700 06/29/23 06/29/23 Zinc Sulfate [Orazinc] 220 mg PO DAILY 06/29/23 06/29/23 predniSONE See Taper PO DIRECTED 06/29/23 06/29/23 Previous Rx's Medication Instructions Recorded Budesonide-Formot 160-4.5 Mcg 2 puff INHALATION RT-BID #1 inhaler 04/06/16 [Symbicort 160-4.5 Mcg Inhaler] Albuterol Inhaler [Ventolin Hfa 2 puff INHALATION RT-QID PRN #1 05/31/23 Inhaler] each ALPRAZolam [Xanax] 0.25 mg PO Q8HR PRN 3 Days #9 tab 06/26/23 Amiodarone [Cordarone] 400 mg PO BID tab 06/26/23 Benzonatate [Tessalon Perles] 200 mg PO TID PRN cap 06/26/23 Nystatin 100,000 Unit/ml Susp 5 ml PO QID 7 Days #140 ml 06/26/23 [Mycostatin Oral Susp] Allergies Allergy/AdvReac Type Severity Reaction Status Date / Time clarithromycin [From Biaxin] Allergy Unknown Verified 06/29/23 08:45 gemifloxacin [From Factive] Allergy Unknown Verified 06/29/23 08:45 prednisone Allergy Unknown Verified 06/29/23 08:45 amoxicillin [From Augmentin] AdvReac Nausea & Verified 06/29/23 08:45 Vomiting & Diarrhea clavulanic acid AdvReac Nausea & Verified 06/29/23 08:45 [From Augmentin] Vomiting & Diarrhea Review of Systems ROS Statement: Those systems with pertinent positive or pertinent negative responses have been documented in the HPI. ROS Other: All systems not noted in ROS Statement are negative. Past Medical History Past Medical History: Heart Failure, Hyperlipidemia, Hypertension, Mitral Valve Prolapse (MVP), Rheumatoid Arthritis (RA), Thyroid Disorder Additional Past Medical History / Comment(s): HAD A PNE VACCINE AFTER AGE 67 BUT NOT SURE OF DATE,OFFICE CLOSED AT TIME OF THIS ADMIT. Last Myocardial Infarction Date:: History of Any Multi-Drug Resistant Organisms: None Reported Past Surgical History: Section, Orthopedic Surgery Additional Past Surgical History / Comment(s): total right knee replacement Past Anesthesia/Blood Transfusion Reactions: No Reported Reaction Additional Past Anesthesia/Blood Transfusion Reaction / Comment(s): clausterphobia Past Psychological History: No Psychological Hx Reported Smoking Status: Never smoker Past Alcohol Use History: Occasional Past Drug Use History: None Reported - Past Family History Father Additional Family Medical History / Comment(s): smoker-had problems related to that Mother Additional Family Medical History / Comment(s): smoker-problems related to that General Exam General appearance: alert, in no apparent distress Head exam: Present: atraumatic, normocephalic, normal inspection Eye exam: Present: normal appearance, PERRL, EOMI. Absent: scleral icterus, conjunctival injection, periorbital swelling ENT exam: Present: normal exam, mucous membranes moist Neck exam: Present: normal inspection. Absent: tenderness, meningismus, lymphadenopathy Respiratory exam: Present: normal lung sounds bilaterally. Absent: respiratory distress, wheezes, rales, rhonchi, stridor Cardiovascular Exam: Present: regular rate, normal rhythm, normal heart sounds. Absent: systolic murmur, diastolic murmur, rubs, gallop, clicks GI/Abdominal exam: Present: soft, normal bowel sounds. Absent: distended, t enderness, guarding, rebound, rigid Extremities exam: Present: normal inspection, full ROM, normal capillary refill. Absent: tenderness, pedal edema, joint swelling, calf tenderness Back exam: Present: normal inspection Neurological exam: Present: alert, oriented X3, CN II-XII intact Psychiatric exam: Present: normal affect, normal mood Skin exam: Present: warm, dry, intact, normal color. Absent: rash Course Vital Signs 06/28/23 06/29/23 06/29/23 23:32 00:00 00:01 Temperature 97.5 F L Pulse Rate 80 79 83 Pulse Rate [ Leadership Intern ] Respiratory 24 20 Rate Blood Pressure 124/77 124/77 Blood Pressure [Left Arm] O2 Sat by Pulse 90 L 95 Oximetry Fraction of Inspired Oxygen (FIO2) 06/29/23 06/29/23 06/29/23 00:07 00:29 01:00 Temperature Pulse Rate 88 77 Pulse Rate [ Leadership Intern ] Respiratory 30 H 20 Rate Blood Pressure 102/45 Blood Pressure [Left Arm] O2 Sat by Pulse 96 Oximetry Fraction of Inspired Oxygen (FIO2) 06/29/23 06/29/23 06/29/23 01:32 01:39 02:00 Temperature Pulse Rate 83 88 81 Pulse Rate [ Leadership Intern ] Respiratory 26 H Rate Blood Pressure 102/45 Blood Pressure [Left Arm] O2 Sat by Pulse 95 Oximetry Fraction of Inspired Oxygen (FIO2) 06/29/23 06/29/23 06/29/23 03:00 03:21 04:00 Temperature 99.3 F 99.3 F Pulse Rate 80 79 Pulse Rate [ Leadership Intern ] Respiratory 22 24 Rate Blood Pressure 105/48 102/48 Blood Pressure [Left Arm] O2 Sat by Pulse 100 96 Oximetry Fraction of Inspired Oxygen (FIO2) 06/29/23 06/29/23 06/29/23 05:00 06:00 06:09 Temperature 99.5 F Pulse Rate 80 78 Pulse Rate [ Leadership Intern ] Respiratory 24 22 Rate Blood Pressure 103/52 100/54 Blood Pressure [Left Arm] O2 Sat by Pulse 99 99 Oximetry Fraction of Inspired Oxygen (FIO2) 06/29/23 06/29/23 06/29/23 07:00 08:00 08:05 Temperature 99.5 F 97.6 F Pulse Rate 76 84 Pulse Rate [ 81 Leadership Intern ] Respiratory 26 H 14 Rate Blood Pressure 103/52 Blood Pressure 95/59 [Left Arm] O2 Sat by Pulse 95 96 94 L Oximetry Fraction of Inspired Oxygen (FIO2) 06/29/23 06/29/23 06/29/23 08:12 09:04 09:48 Temperature Pulse Rate 84 80 Pulse Rate [ Leadership Intern ] Respiratory 16 Rate Blood Pressure Blood Pressure [Left Arm] O2 Sat by Pulse 97 94 L Oximetry Fraction of 40 Inspired Oxygen (FIO2) 06/29/23 06/29/23 06/29/23 10:00 11:00 12:00 Temperature 97.8 F Pulse Rate 82 87 Pulse Rate [ Leadership Intern ] Respiratory 25 H 26 H 22 Rate Blood Pressure 93/45 98/43 104/63 Blood Pressure [Left Arm] O2 Sat by Pulse 94 L 95 96 Oximetry Fraction of 35 Inspired Oxygen (FIO2) 06/29/23 06/29/23 06/29/23 12:10 12:22 13:00 Temperature Pulse Rate 86 87 90 Pulse Rate [ Leadership Intern ] Respiratory 34 H Rate Blood Pressure 105/49 Blood Pressure [Left Arm] O2 Sat by Pulse 94 L Oximetry Fraction of 35 Inspired Oxygen (FIO2) 06/29/23 06/29/23 06/29/23 14:00 15:00 16:00 Temperature Pulse Rate 91 93 93 Pulse Rate [ Leadership Intern ] Respiratory 12 49 H 32 H Rate Blood Pressure 109/53 115/64 125/64 Blood Pressure [Left Arm] O2 Sat by Pulse 94 L 90 L 87 L Oximetry Fraction of 50 Inspired Oxygen (FIO2) 06/29/23 06/29/23 06/29/23 16:39 17:00 17:02 Temperature Pulse Rate 92 90 Pulse Rate [ Leadership Intern ] Respiratory 33 H Rate Blood Pressure 108/92 Blood Pressure [Left Arm] O2 Sat by Pulse 96 Oximetry Fraction of Inspired Oxygen (FIO2) 06/29/23 06/29/23 06/29/23 18:00 18:30 19:20 Temperature Pulse Rate 96 96 Pulse Rate [ Leadership Intern ] Respiratory 27 H Rate Blood Pressure 107/46 Blood Pressure [Left Arm] O2 Sat by Pulse 100 92 L Oximetry Fraction of 40 50 Inspired Oxygen (FIO2) 06/29/23 06/29/23 06/29/23 19:32 21:15 21:30 Temperature Pulse Rate 93 96 97 Pulse Rate [ Leadership Intern ] Respiratory 22 21 Rate Blood Pressure 107/42 117/63 Blood Pressure [Left Arm] O2 Sat by Pulse 98 96 Oximetry Fraction of Inspired Oxygen (FIO2) 06/29/23 06/29/23 06/30/23 22:00 23:00 00:00 Temperature 99.7 F H 99.7 F H 99.5 F Pulse Rate 93 77 81 Pulse Rate [ Leadership Intern ] Respiratory 20 20 19 Rate Blood Pressure 103/47 90/42 108/55 Blood Pressure [Left Arm] O2 Sat by Pulse 99 97 97 Oximetry Fraction of Inspired Oxygen (FIO2) 06/30/23 06/30/23 06/30/23 01:00 02:21 03:00 Temperature 99.5 F 99.0 F 99.0 F Pulse Rate 77 77 76 Pulse Rate [ Leadership Intern ] Respiratory 20 24 18 Rate Blood Pressure 89/46 97/47 98/46 Blood Pressure [Left Arm] O2 Sat by Pulse 98 96 99 Oximetry Fraction of Inspired Oxygen (FIO2) 06/30/23 06/30/23 06/30/23 04:00 05:00 06:00 Temperature 99.0 F 98.8 F 98.8 F Pulse Rate 74 77 76 Pulse Rate [ Leadership Intern ] Respiratory 21 22 18 Rate Blood Pressure 95/43 101/46 103/64 Blood Pressure [Left Arm] O2 Sat by Pulse 99 97 98 Oximetry Fraction of Inspired Oxygen (FIO2) 06/30/23 06/30/23 06/30/23 07:42 08:14 08:25 Temperature Pulse Rate 78 77 80 Pulse Rate [ Leadership Intern ] Respiratory 18 Rate Blood Pressure 93/40 Blood Pressure [Left Arm] O2 Sat by Pulse 100 92 L Oximetry Fraction of Inspired Oxygen (FIO2) 06/30/23 06/30/23 06/30/23 10:00 11:24 11:41 Temperature Pulse Rate 84 85 85 Pulse Rate [ Leadership Intern ] Respiratory 18 18 Rate Blood Pressure 99/49 91/47 Blood Pressure [Left Arm] O2 Sat by Pulse 95 95 Oximetry Fraction of Inspired Oxygen (FIO2) 06/30/23 06/30/23 06/30/23 11:52 12:55 14:20 Temperature Pulse Rate 80 88 98 Pulse Rate [ Leadership Intern ] Respiratory 20 20 Rate Blood Pressure 94/50 101/55 Blood Pressure [Left Arm] O2 Sat by Pulse 98 97 Oximetry Fraction of Inspired Oxygen (FIO2) - Reevaluation(s) Reevaluation #1: 06/29/23 00:02 Medical records reviewed Reevaluation #2: 06/29/23 00:02 Patient symptoms are improving with supplemental O2 Reevaluation #3: 06/29/23 01:15 Patient and family informed of results and questions answered Reevaluation #4: Was pt. sent in by a medical professional or institution (, PA, NEUROSURGERY PHYSICIAN, urgent care, hospital, or [facility]...) When possible be specific @ -no Did you speak to anyone other than the patient for history (EMS, parent, family, police, friend...)? What history was obtained from this source @ -no Did you review nursing and triage notes (agree or disagree)? Why? @ -agree Are old charts reviewed (outside hosp., previous admission, EMS record, old EKG, old radiological studies, urgent care reports/EKG's, [facility] records)? Report findings @ -yes Differential Diagnosis (chest pain, altered mental status, abdominal pain women, abdominal pain men, vaginal bleeding, weakness, fever, dyspnea, syncope, headac he, dizziness, GI bleed, back pain, seizure, CVA, palpatations, mental health, musculoskeletal)? @ -prior EKG interpreted by me (3pts min.). @ -yes X-rays interpreted by me (1pt min.). @ -yes negative for acute disease CT interpreted by me (1pt min.). @ -no U/S interpreted by me (1pt. min.). @ -no What testing was considered but not performed or refused? (CT, X-rays, U/S, labs)? Why? @ -none What meds were considered but not given or refused? Why? @ -none Did you discuss the management of the patient with other professionals (professionals i.e. , PA, NEUROSURGERY PHYSICIAN, lab, RT, psych nurse, social worker delinquency prevention, spinning lathe operator automatic, teacher, grant officer, keycase assembler)? Give summary @ -no Was smoking cessation discussed for >3mins.? @ -no Was critical care preformed (if so, how long)? @ -yes31 Were there social determinants of health that impacted care today? How? (Homelessness, low income, unemployed, alcoholism, drug addiction, transportation, low edu. Level, literacy, decrease access to med. care, alf, rehab)? @ -none Was there de-escalation of care discussed even if they declined (Discuss DNR or withdrawal of care, Hospice)? DNR status @ -no What co-morbidities impacted this encounter? (DM, HTN, Smoking, COPD, CAD, Cancer, CVA, ARF, Chemo, Hep., AIDS, mental health diagnosis, sleep apnea, mo rbid obesity)? @ -none Was patient admitted / discharged? Hospital course, mention meds given and r oute, prescriptions, significant lab abnormalities, going to OR and other pertinent info. @ - 82 female to ER for evaluation recent diagnosis of pneumonia coronavirus and patient presents today for hypoxia. Patient will be admitted for supportive care as she is in significant distress multiple electrode abnormalities Admitted Undiagnosed new problem with uncertain prognosis? @ -no Drug Therapy requiring intensive monitoring for toxicity (Heparin, Nitro, Insulin, Cardizem)? @ -no Were any procedures done? @ -no Diagnosis/symptom? @ -Weakness acute kidney injury, non-STEMI hyperkalemia asthma pneumonia Acute, or Chronic, or Acute on Chronic? @ -Acute Uncomplicated (without systemic symptoms) or Complicated (systemic symptoms)? @ -Complicated Side effects of treatment? @ -no Exacerbation, Progression, or Severe Exacerbation? @ -exacerbation Poses a threat to life or bodily function? How? (Chest pain, USA, PR, pneumonia, PE, COPD, DKA, ARF, appy, cholecystitis, CVA, Diverticulitis, Homicidal, Suicidal, threat to staff... and all critical care pts) @ -yes with significant extremes of age Reevaluation #5: Differential Dyspnea: Coronary syndrome, arrhythmia, tamponade, asthma, COPD, pulmonary embolism, pneumonia, pneumothorax, pulmonary effusion, anaphylaxis, diabetic ketoacidosis, flailed chest, pulmonary contusion, diaphragmatic rupture, anemia, neuromuscular, this is not meant to be an all-inclusive list. - Consultations Consultation #1: Spoke with [facility] who agrees to admit this patient Medical Decision Making - Medical Decision Making 82 female to ER for evaluation recent diagnosis of pneumonia coronavirus and patient presents today for hypoxia. Patient will be admitted for supportive care as she is in significant distress multiple electrode abnormalities - Lab Data Result diagrams: 07/08/23 05:38 07/08/23 05:38 Lab Results 06/28/23 06/28/23 06/28/23 Range/Units 23:52 23:52 23:52 WBC 28.0 H (3.8-10.6) k/uL RBC 3.44 L (3.80-5.40) m/uL Hgb 10.5 L (11.4-16.0) gm/dL Hct 34.6 (34.0-46.0) % MCV 100.6 H D (80.0-100.0) fL MCH 30.4 (25.0-35.0) pg MCHC 30.2 L (31.0-37.0) g/dL RDW 17.4 H (11.5-15.5) % Plt Count 332 (150-450) k/uL MPV 8.3 Neutrophils % 96 % Lymphocytes % 1 % Monocytes % 2 % Eosinophils % 1 % Basophils % 0 % Neutrophils # 26.9 H (1.3-7.7) k/uL Lymphocytes # 0.4 L (1.0-4.8) k/uL Monocytes # 0.4 (0-1.0) k/uL Eosinophils # 0.2 (0-0.7) k/uL Basophils # 0.0 (0-0.2) k/uL Manual Slide Review Performed Hypochromasia Slight Anisocytosis Slight Macrocytosis Moderate PT 36.6 H (10.0-12.5) sec INR 3.7 H (<1.2) APTT 29.8 (22.0-30.0) sec Sodium 138 (137-145) mmol/L Potassium 6.2 H* (3.5-5.1) mmol/L Chloride 94 L (98-107) mmol/L Carbon Dioxide 37 H (22-30) mmol/L Anion Gap 7 mmol/L BUN 79 H (7-17) mg/dL Creatinine 1.71 H (0.52-1.04) mg/dL Est GFR (CKD-EPI)AfAm 32 (>60 ml/min/1.73 sqM) Est GFR (CKD-EPI)NonAf 28 (>60 ml/min/1.73 sqM) Glucose 104 H (74-99) mg/dL POC Glucose (mg/dL) (70-110) mg/dL POC Glu Bottle Gauger ID Calcium 8.6 (8.4-10.2) mg/dL Magnesium 3.1 H (1.6-2.3) mg/dL Total Bilirubin 1.3 (0.2-1.3) mg/dL AST 378 H (14-36) U/L ALT 350 H (4-34) U/L Alkaline Phosphatase 359 H (38-126) U/L Troponin I (0.000-0.034) ng/mL NT-Pro-B Natriuret Pep 61509 pg/mL Total Protein 6.4 (6.3-8.2) g/dL Albumin 3.0 L (3.5-5.0) g/dL 06/28/23 06/28/23 Range/Units 23:52 23:52 WBC (3.8-10.6) k/uL RBC (3.80-5.40) m/uL Hgb (11.4-16.0) gm/dL Hct (34.0-46.0) % MCV (80.0-100.0) fL MCH (25.0-35.0) pg MCHC (31.0-37.0) g/dL RDW (11.5-15.5) % Plt Count (150-450) k/uL MPV Neutrophils % % Lymphocytes % % Monocytes % % Eosinophils % % Basophils % % Neutrophils # (1.3-7.7) k/uL Lymphocytes # (1.0-4.8) k/uL Monocytes # (0-1.0) k/uL Eosinophils # (0-0.7) k/uL Basophils # (0-0.2) k/uL Manual Slide Review Hypochromasia Anisocytosis Macrocytosis PT (10.0-12.5) sec INR (<1.2) APTT (22.0-30.0) sec Sodium (137-145) mmol/L Potassium (3.5-5.1) mmol/L Chloride (98-107) mmol/L Carbon Dioxide (22-30) mmol/L Anion Gap mmol/L BUN (7-17) mg/dL Creatinine (0.52-1.04) mg/dL Est GFR (CKD-EPI)AfAm (>60 ml/min/1.73 sqM) Est GFR (CKD-EPI)NonAf (>60 ml/min/1.73 sqM) Glucose (74-99) mg/dL POC Glucose (mg/dL) 113 H (70-110) mg/dL POC Glu Bottle Gauger ID Cosme Gunterle Calcium (8.4-10.2) mg/dL Magnesium (1.6-2.3) mg/dL Total Bilirubin (0.2-1.3) mg/dL AST (14-36) U/L ALT (4-34) U/L Alkaline Phosphatase (38-126) U/L Troponin I 0.247 H* (0.000-0.034) ng/mL NT-Pro-B Natriuret Pep pg/mL Total Protein (6.3-8.2) g/dL Albumin (3.5-5.0) g/dL - EKG Data -: EKG Interpreted by Me (EKG is sinus 81 DC 168 QRS 94 QTc 426) - Radiology Data Radiology results: report reviewed (X-rays negative for acute disease), image reviewed Critical Care Time Critical Care Time: Yes Total Critical Care Time: 31 Disposition Clinical Impression: CHF (congestive heart failure), Asthma, Bronchospasm with bronchitis, acute, Chest pain, Hypoxia, Pneumonia, Dyspnea, Pneumonitis, NSTEMI (non-ST elevated myocardial infarction), Hyperkalemia Disposition: ADMITTED IP TO THIS HOSP Condition: Critical Is patient prescribed a controlled substance at d/c from ED?: No Time of Disposition: 01:00
[2023-06-28 23:53] LABS: Glucose,Whole Blood 113 mg/dL (70-110)
[2023-06-29] MEDS: IPRATROPIUM-ALBUTEROL 3 ML NEB INHALATION STA ×2 (00:01→01:30)
[2023-06-29 00:03] LABS: Anisocytosis Slight; Basophils % (A) 0 %; Eosinophils # (A) 0.2 k/uL (0-0.7); Eosinophils % (A) 1 %; HCT 34.6 % (34.0-46.0); HGB 10.5 gm/dL (11.4-16.0); Hypochromasia Slight; Lymphocytes # (A) 0.4 k/uL (1.0-4.8); Lymphocytes % (A) 1 %; MCH 30.4 pg (25.0-35.0); MCHC 30.2 g/dL (31.0-37.0); Macrocytosis Moderate; Mean Platelet Volume 8.3; Monocytes # (A) 0.4 k/uL (0-1.0); Monocytes % (A) 2 %; Neutrophils # (A) 26.9 k/uL (1.3-7.7); Neutrophils % (A) 96 %; Platelet Count 332 k/uL (150-450); RBC 3.44 m/uL (3.80-5.40); RDW 17.4 % (11.5-15.5)
[2023-06-29 00:18] LABS: ALT 350 U/L (4-34); AST 378 U/L (14-36); African American GFR (CKD) 32 (>60 ml/min/1.73 sqM); Alkaline Phosphatase 359 U/L (38-126); Blood Urea Nitrogen 79 mg/dL (7-17); Calcium 8.6 mg/dL (8.4-10.2); Chloride 94 mmol/L (98-107); Glucose 104 mg/dL (74-99); Magnesium 3.1 mg/dL (1.6-2.3); Non-African American GFR(CKD) 28 (>60 ml/min/1.73 sqM); Sodium 138 mmol/L (137-145); Total Bilirubin 1.3 mg/dL (0.2-1.3); Total Protein 6.4 g/dL (6.3-8.2)
[2023-06-29 00:22] LABS: INR 3.7 (<1.2); Partial Thromboplastin Time 29.8 sec (22.0-30.0); Prothrombin Time 36.6 sec (10.0-12.5)
[2023-06-29 00:25] LABS: Anion Gap 7 mmol/L
[2023-06-29 00:27] LABS: NT-Pro-B-Type Natriuretic Pept 27700 pg/mL
[2023-06-29 00:32] LABS: Carbon Dioxide 37 mmol/L (22-30); Potassium 6.2 mmol/L (3.5-5.1)
[2023-06-29 00:34] LABS: MCV 100.6 fL (80.0-100.0)
[2023-06-29] MEDS ORDERED: NALOXONE 0.4 MG/ML 1 ML VIAL IV PRN (01:11)
[2023-06-29] MEDS ORDERED: HYDROmorphone 1 MG/ML 1 ML SYRINGE IVP PRN (01:11)
--- NOTE | 2023-06-29 01:26 | XR ---
EXAM: XR Chest, 1 View CLINICAL HISTORY: ITS.REASON XR Reason: sob TECHNIQUE: Frontal view of the chest. COMPARISON: No relevant prior studies available. IMPRESSION: Cardiomegaly. Moderate vascular congestion
[2023-06-29] MEDS ORDERED: VANCOMYCIN IV PER PHARMACY 1 EACH MISC MISCELLANE PRN (02:16)
[2023-06-29] MEDS: SODIUM CHLORIDE 0.9% 1,000 ML IV ONE (02:35)
[2023-06-29] MEDS: INSULIN REGULAR 100 UNIT/ML VIAL (IV) IV ONE (02:37)
[2023-06-29] MEDS: DEXTROSE 50% SYRINGE 50 ML IVP STA (02:41)
[2023-06-29] MEDS: methylPREDNISolone SOD SUCCI 125 MG/2 ML VIAL IV STA (02:45)
[2023-06-29] MEDS: SODIUM BICARB 8.4% 50 ML SYR (1 MEQ/ML) IV STA (02:48)
[2023-06-29] MEDS: VANCOMYCIN 750 MG in SODIUM CHLORIDE 0.9% 250 ML IVPB STA (02:50)
[2023-06-29] MEDS: DEXTROSE 5%-0.45% NACL 1,000 ML IV SCH (02:50)
[2023-06-29 03:28] LABS: ABG Base Excess 18.1 mmol/L; ABG Oxygen Saturation 95.4 % (94-97); ABG PCO2 48 mmHg (35-45); ABG PH 7.54 (7.35-7.45); ABG PO2 69 mmHg (83-108); ABG TCO2 42 mmol/L (19-24); Allen Test Performed? Yes
[2023-06-29 03:53] LABS: Cocaine Screen,Urine Not Detected (NotDetected); Phencyclidine Screen,Urine Not Detected (NotDetected); Urn Cannabinoid Scrn Not Detected (NotDetected)
[2023-06-29 03:54] LABS: Amphetamine Screen,Urine Not Detected (NotDetected); Barbiturate Screen,Urine Not Detected (NotDetected); Benzodiazepines Screen,Urine Detected (NotDetected); Methadone Screen, Urine Not Detected (NotDetected); Opiate Screen,Urine Not Detected (NotDetected); Oxycodone Screen, Urine Not Detected (NotDetected); Tricyclic Antidepressant,Urine Not Detected (NotDetected)
[2023-06-29 05:25] LABS: ABG HCO3 41 mmol/L (21-25)
[2023-06-29 07:15] LABS: Appearance,Urine Cloudy (Clear); Bilirubin,Urine Negative (Negative); Blood,Urine Moderate (Negative); Budding Yeast,Urine Many /hpf; Color,Urine Light Red; Glucose,Urine (UA) 2+ (Negative); Ketones,Urine Trace (Negative); Leukocyte Esterase,Urine Trace (Negative); Mucus,Urine Rare /hpf; Nitrite,Urine Negative (Negative); Protein,Urine 1+ (Negative); RBC,Urine 40 /hpf (0-5); Specific Gravity,Urine 1.018 (1.001-1.035); Squamous Epithelial Cell,Urine 1 /hpf (0-4); WBC,Urine 17 /hpf (0-5)
[2023-06-29] MEDS: ALBUTEROL NEBULIZED 2.5 MG/3 ML INHALATION SCH (07:59)
[2023-06-29] MEDS ORDERED: IPRATROPIUM-ALBUTEROL 3 ML NEB INHALATION PRN (08:00)
[2023-06-29] MEDS: IPRATROPIUM-ALBUTEROL 3 ML NEB INHALATION SCH (08:02)
[2023-06-29] MEDS ORDERED: CEFEPIME 2 GM in SODIUM CHLORIDE 0.9% 100 ML IVPB SCH (12:00)
[2023-06-29] MEDS: CEFEPIME 2 GM in SODIUM CHLORIDE 0.9% 100 ML IVPB ONE (12:43)
--- NOTE | 2023-06-29 12:50 | P.NPCON ---
History of Present Illness - Reason for Consult acute renal failure - History of Present Illness patient is an 82-year-old female with history of coronary artery disease, mitral valve prolapse, CHF. History of recent Covid pneumonia. Patient was recently discharged from the hospital on 06/26/2023. Patient was treated for CHF exacerbation and A. fib with RVR. Patient is admitted to the hospital again due to mental status changes and decreased oxygen saturation. Blood pressure has been low UA suggestive of UTI Potassium was elevated at 6.2. creatinine was 1.7. Liver enzymes are elevated. Patient was recently treated with Bactrim as outpatient for suspected UTI. currently with indwelling Caldwell catheter. chest x-ray shows suggestion of pulmonary vascular congestion. patient is currently maintained on nasal cannula with O2 sats at 94%. she is maintained on IV fluids at 50 mL an hour. mentation is slightly improved as per family members. Review of Systems as per HPI Past Medical History Past Medical History: Heart Failure, Hyperlipidemia, Hypertension, Mitral Valve Prolapse (MVP), Rheumatoid Arthritis (RA), Thyroid Disorder Additional Past Medical History / Comment(s): HAD A PNE VACCINE AFTER AGE 67 BUT NOT SURE OF DATE,OFFICE CLOSED AT TIME OF THIS ADMIT. Last Myocardial Infarction Date:: History of Any Multi-Drug Resistant Organisms: None Reported Past Surgical History: Section, Orthopedic Surgery Additional Past Surgical History / Comment(s): total right knee replacement Past Anesthesia/Blood Transfusion Reactions: No Reported Reaction Additional Past Anesthesia/Blood Transfusion Reaction / Comment(s): ana laura singh Past Psychological History: No Psychological Hx Reported Smoking Status: Never smoker Past Alcohol Use History: Occasional Past Drug Use History: None Reported - Past Family History Father Additional Family Medical History / Comment(s): smoker-had problems related to that Mother Additional Family Medical History / Comment(s): smoker-problems related to that Medications and Allergies Home Medications Medication Instructions Recorded Confirmed Type Budesonide-Formot 160-4.5 Mcg 2 puff INHALATION RT-BID #1 inhaler 04/06/16 06/29/23 Rx [Symbicort 160-4.5 Mcg Inhaler] Alendronate Sodium [Fosamax] 70 mg PO MO@0900 08/09/21 06/29/23 History Cholecalciferol [Vitamin D3 (25 50 mcg PO DAILY 08/09/21 06/29/23 History Mcg = 1000 Iu)] Levothyroxine Sodium [Synthroid] 112 mcg PO MOTUWETHFR@0600 08/09/21 06/29/23 History Montelukast [Singulair] 10 mg PO HS 08/09/21 06/29/23 History Acetaminophen [Tylenol Arthritis] 650 mg PO Q8HR PRN 03/19/22 06/29/23 History Empagliflozin [Jardiance] 10 mg PO DAILY 03/19/22 06/29/23 History Levothyroxine Sodium [Synthroid] 56 mcg PO SUSA@0600 03/19/22 06/29/23 History Aspirin 81 mg PO DAILY@0600 05/26/23 06/29/23 History Atorvastatin [Lipitor] 80 mg PO HS 05/26/23 06/29/23 History Calcium Carbonate [Calcium] 600 mg PO DAILY 05/26/23 06/29/23 History Furosemide [Lasix] 40 mg PO DAILY@0600 05/26/23 06/29/23 History Albuterol Inhaler [Ventolin Hfa 2 puff INHALATION RT-QID PRN #1 05/31/23 06/29/23 Rx Inhaler] each ALPRAZolam [Xanax] 0.25 mg PO Q8HR PRN 3 Days #9 tab 06/26/23 06/29/23 Rx Amiodarone [Cordarone] 400 mg PO BID tab 06/26/23 06/29/23 Rx Benzonatate [Tessalon Perles] 200 mg PO TID PRN cap 06/26/23 06/29/23 Rx Nystatin 100,000 Unit/ml Susp 5 ml PO QID 7 Days #140 ml 06/26/23 06/29/23 Rx [Mycostatin Oral Susp] Ascorbic Acid [Vitamin C] 1,000 mg PO DAILY 06/29/23 06/29/23 History INSULIN ASPART (NovoLOG) [NovoLOG See Protocol SQ ACHS 06/29/23 06/29/23 History (formulary)] Magnesium Oxide [Mag-Ox] 400 mg PO DAILY 06/29/23 06/29/23 History Metoprolol Tartrate [Lopressor] 50 mg PO Q12H 06/29/23 06/29/23 History Multivitamins, Thera [Multivitamin 1 tab PO DAILY 06/29/23 06/29/23 History (formulary)] Omeprazole Magnesium [PriLOSEC OTC] 20 mg PO HS 06/29/23 06/29/23 History Sulfamethox-Tmp 800-160Mg [Bactrim 1 tab PO BID 06/29/23 06/29/23 History DS 800-160 mg] Warfarin [Coumadin] 0.5 mg PO DAILY@1700 06/29/23 06/29/23 History Zinc Sulfate [Orazinc] 220 mg PO DAILY 06/29/23 06/29/23 History predniSONE See Taper PO DIRECTED 06/29/23 06/29/23 History Allergies Allergy/AdvReac Type Severity Reaction Status Date / Time clarithromycin [From Biaxin] Allergy Unknown Verified 06/29/23 08:45 gemifloxacin [From Factive] Allergy Unknown Verified 06/29/23 08:45 prednisone Allergy Unknown Verified 06/29/23 08:45 amoxicillin [From Augmentin] AdvReac Nausea & Verified 06/29/23 08:45 Vomiting & Diarrhea clavulanic acid AdvReac Nausea & Verified 06/29/23 08:45 [From Augmentin] Vomiting & Diarrhea Physical Exam Vitals: Vital Signs Temp Pulse Pulse Resp BP BP Pulse Ox 06/29/23 12:22 87 06/29/23 12:10 86 06/29/23 09:48 94 L 06/29/23 08:12 84 06/29/23 08:05 84 94 L 06/29/23 08:00 97.6 F 81 14 95/59 96 06/29/23 07:00 99.5 F 76 26 H 103/52 95 06/29/23 06:09 99.5 F 06/29/23 06:00 78 22 100/54 99 06/29/23 05:00 80 24 103/52 99 06/29/23 04:00 99.3 F 79 24 102/48 96 06/29/23 03:21 99.3 F 06/29/23 03:00 80 22 105/48 100 06/29/23 02:00 81 26 H 102/45 95 06/29/23 01:39 88 06/29/23 01:32 83 06/29/23 01:00 77 20 102/45 96 06/29/23 00:29 30 H 06/29/23 00:07 88 06/29/23 00:01 83 06/29/23 00:00 79 20 124/77 95 06/28/23 23:32 97.5 F L 80 24 124/77 90 L FiO2 06/29/23 12:22 06/29/23 12:10 06/29/23 09:48 40 06/29/23 08:12 06/29/23 08:05 06/29/23 08:00 06/29/23 07:00 06/29/23 06:09 06/29/23 06:00 06/29/23 05:00 06/29/23 04:00 06/29/23 03:21 06/29/23 03:00 06/29/23 02:00 06/29/23 01:39 06/29/23 01:32 06/29/23 01:00 06/29/23 00:29 06/29/23 00:07 06/29/23 00:01 06/29/23 00:00 06/28/23 23:32 Intake and Output 06/28/23 06/29/23 06/29/23 22:59 06:59 14:59 Output Total 200 Balance -200 Output: Urine 200 Other: Voiding Method Indwelling Catheter Weight 43.998 kg patient is awake, comfortable, in no acute distress Examination of the heart S1 and S2 Examination of the lungs bilateral breath sounds are heard Abdomen is soft nontender Examination of lower extremity shows no evidence of edema. Bruising noted on l eft ankle PAPER WINDER exam grossly intact with periods of confusion on and off Results - Lab Results Most recent lab results ABG pH 7.54 (7.35-7.45) H 06/29/23 03:25 ABG pCO2 48 mmHg (35-45) H 06/29/23 03:25 ABG pO2 69 mmHg (83-108) L 06/29/23 03:25 ABG HCO3 41 mmol/L (21-25) H* 06/29/23 03:25 ABG O2 Saturation 95.4 % (94-97) 06/29/23 03:25 Calcium 8.6 mg/dL (8.4-10.2) 06/28/23 23:52 Magnesium 3.1 mg/dL (1.6-2.3) H 06/28/23 23:52 06/28/23 23:52 06/28/23 23:52 Assessment and Plan Assessment: 1. Acute kidney injury, ATN currently nonoliguric secondary to underlying infection and hypotension. Serum creatinine also elevated from Bactrim which was started as outpatient.UA shows WBC 17 1+ protein with WBC clumps and yeast. Check ultrasound of the kidneys 2. Hyperkalemia associated with acute kidney injury and use of Bactrim 3. Pyuria rule out UTI 4. History of CHF, diastolic with recent echocardiogram on 05/28/2023 showing EF of 60-65% 5. Severe pulmonary hypertension 6. Severe mitral valve stenosis 7. Mental status changes likely related to underlying infection and hypotension Plan: continue with IV fluids Continue IV antibiotics rrepeat labs in a.m. Continue with Caldwell catheter Check ultrasound of the kidneys. thank you for the consultation. We will continue to follow the patient with you during her hospitalization.
--- NOTE | 2023-06-29 13:55 | P.CNPUL ---
History of Present Illness Consult date: 06/29/23 Requesting physician: Jaya Chavarria Reason for consult: dyspnea Chief complaint: Shortness of breath History of present illness: This is an 82-year-old female, familiar to my service, patient was recently in the hospital with acute COVID-19 pneumonia, congestive heart failure, atrial fibrillation with RVR, possible underlying interstitial lung disease, patient was discharged on 06/26/2023, pulmonary service has seen this patient initially on 06/09/2023, at that time the patient was admitted with acute hypoxic respiratory failure, acute COVID-19 pneumonia, chronic bronchial asthma, and possible hospital-acquired pneumonia. In addition the patient had mild intermittent asthma, congestive heart failure, severe mitral calcification and moderate to severe mitral stenosis with preserved LV function and preserved ejection fraction. She also has history of rheumatoid arthritis, hypothyroidism , and lifelong non-smoker. We saw this patient last on 06/26/2023,, she was on 2 L nasal cannula, her labs were unremarkable, her sputum cultures were nondiagnostic, blood cultures were nondiagnostic, she had relatively normal renal profile, and she was at the time on warfarin, Symbicort, Singulair and albuterol. Patient was discharged to the [facility] on the [place]. Patient was discharged on amiodarone, Coumadin, prednisone 20 mg daily, Lopressor, and nystatin swish and swallow. Otherwise the patient was kept on her usual medications including Symbicort, Jardiance, levothyroxine, Singulair, Fosamax, ascorbic acid, atorvastatin, Lasix 40 mg p.o. daily, and Xanax. As well as albuterol. Patient was sent from the [facility] down to the ER today mostly because of low O2 saturation, and patient was noted to have some shortness of breath. Chest x-ray on this admission showed cardiomegaly and mild pulmonary vascular congestion, no clear-cut evidence of pneumonia. As a matter fact her chest x-ray shows significant improvement compared to her initial chest x-ray on her last admission. In addition to her shortness of breath, patient was noted to have abnormal labs with a potassium of 6.2, her BUN is 79 and creatinine 1.71. Patient was also noted to have elevated BNP level of 27,000 and troponin leak. ABG on 50% FiO2 showed a pO2 of 69 pCO2 48 pH of 7.54. Patient is now on 3 L nasal cannula, seems to be comfortable, not in distress. Seen by nephrology for her acute kidney injury, ATN, hyperkalemia with acute kidney injury and apparently the patient was on Bactrim and the recommendation by nephrology was to continue with IV fluids, IV antibiotics, and repeat labs in AM. Patient has a very poor urine output, I did recommend a fluid bolus of 500 cc of saline while in the ER, blood pressure is marginal. Considering her marginal low blood pressure, I am recommending that the patient goes to the ICU. Nephrology is addressing her abnormal renal profile and hyperkalemia Review of Systems CONSTITUTIONAL: Generalized weakness, and weight loss EYES: Denies change in vision. EARS, NOSE, MOUTH, THROAT: Denies headaches, denies sore throat. CARDIOVASCULAR: Denies chest pain, history of chronic atrial fibrillation. RESPIRATORY: As noted in HPI GASTROINTESTINAL: Denies change in appetite, denies abdominal pain GENITOURINARY: Denies hematuria, denies infections. MUSKULOSKELETAL: Denies pain, denies swelling. INTEGUMENTARY: Patient had generalized ecchymosis and bruising. NEUROLOGICAL: Denies recent memory loss, no recent seizure activity. PSYCHIATRIC: Denies anxiety, denies depression. HEMATOLOGIC/LYMPHATIC: Denies anemia, denies enlarged lymph nodes. Past Medical History Past Medical History: Heart Failure, Hyperlipidemia, Hypertension, Mitral Valve Prolapse (MVP), Rheumatoid Arthritis (RA), Thyroid Disorder Additional Past Medical History / Comment(s): HAD A PNE VACCINE AFTER AGE 67 BUT NOT SURE OF DATE,OFFICE CLOSED AT TIME OF THIS ADMIT. Last Myocardial Infarction Date:: History of Any Multi-Drug Resistant Organisms: None Reported Past Surgical History: Section, Orthopedic Surgery Additional Past Surgical History / Comment(s): total right knee replacement Past Anesthesia/Blood Transfusion Reactions: No Reported Reaction Additional Past Anesthesia/Blood Transfusion Reaction / Comment(s): clauste rphobia Past Psychological History: No Psychological Hx Reported Smoking Status: Never smoker Past Alcohol Use History: Occasional Past Drug Use History: None Reported - Past Family History Father Additional Family Medical History / Comment(s): smoker-had problems related to that Mother Additional Family Medical History / Comment(s): smoker-problems related to that Medications and Allergies Home Medications Medication Instructions Recorded Confirmed Type Budesonide-Formot 160-4.5 Mcg 2 puff INHALATION RT-BID #1 inhaler 04/06/16 06/29/23 Rx [Symbicort 160-4.5 Mcg Inhaler] Alendronate Sodium [Fosamax] 70 mg PO MO@0900 08/09/21 06/29/23 History Cholecalciferol [Vitamin D3 (25 50 mcg PO DAILY 08/09/21 06/29/23 History Mcg = 1000 Iu)] Levothyroxine Sodium [Synthroid] 112 mcg PO MOTUWETHFR@0600 08/09/21 06/29/23 History Montelukast [Singulair] 10 mg PO HS 08/09/21 06/29/23 History Acetaminophen [Tylenol Arthritis] 650 mg PO Q8HR PRN 03/19/22 06/29/23 History Empagliflozin [Jardiance] 10 mg PO DAILY 03/19/22 06/29/23 History Levothyroxine Sodium [Synthroid] 56 mcg PO SUSA@0603/19/22 06/29/23 History Aspirin 81 mg PO DAILY@0605/26/23 06/29/23 History Atorvastatin [Lipitor] 80 mg PO HS 05/26/23 06/29/23 History Calcium Carbonate [Calcium] 600 mg PO DAILY 05/26/23 06/29/23 History Furosemide [Lasix] 40 mg PO DAILY@59905/26/23 06/29/23 History Albuterol Inhaler [Ventolin Hfa 2 puff INHALATION RT-QID PRN #1 05/31/23 06/29/23 Rx Inhaler] each ALPRAZolam [Xanax] 0.25 mg PO Q8HR PRN 3 Days #9 tab 06/26/23 06/29/23 Rx Amiodarone [Cordarone] 400 mg PO BID tab 06/26/23 06/29/23 Rx Benzonatate [Tessalon Perles] 200 mg PO TID PRN cap 06/26/23 06/29/23 Rx Nystatin 100,000 Unit/ml Susp 5 ml PO QID 7 Days #140 ml 06/26/23 06/29/23 Rx [Mycostatin Oral Susp] Ascorbic Acid [Vitamin C] 1,000 mg PO DAILY 06/29/23 06/29/23 History INSULIN ASPART (NovoLOG) [NovoLOG See Protocol SQ ACHS 06/29/23 06/29/23 History (formulary)] Magnesium Oxide [Mag-Ox] 400 mg PO DAILY 06/29/23 06/29/23 History Metoprolol Tartrate [Lopressor] 50 mg PO Q12H 06/29/23 06/29/23 History Multivitamins, Thera [Multivitamin 1 tab PO DAILY 06/29/23 06/29/23 History (formulary)] Omeprazole Magnesium [PriLOSEC OTC] 20 mg PO HS 06/29/23 06/29/23 History Sulfamethox-Tmp 800-160Mg [Bactrim 1 tab PO BID 06/29/23 06/29/23 History DS 800-160 mg] Warfarin [Coumadin] 0.5 mg PO DAILY@1700 06/29/23 06/29/23 History Zinc Sulfate [Orazinc] 220 mg PO DAILY 06/29/23 06/29/23 History predniSONE See Taper PO DIRECTED 06/29/23 06/29/23 History Allergies Allergy/AdvReac Type Severity Reaction Status Date / Time clarithromycin [From Biaxin] Allergy Unknown Verified 06/29/23 08:45 gemifloxacin [From Factive] Allergy Unknown Verified 06/29/23 08:45 prednisone Allergy Unknown Verified 06/29/23 08:45 amoxicillin [From Augmentin] AdvReac Nausea & Verified 06/29/23 08:45 Vomiting & Diarrhea clavulanic acid AdvReac Nausea & Verified 06/29/23 08:45 [From Augmentin] Vomiting & Diarrhea Physical Exam Vitals: Vital Signs Temp Pulse Pulse Resp BP BP Pulse Ox 06/29/23 12:22 87 06/29/23 12:10 86 06/29/23 09:48 94 L 06/29/23 08:12 84 06/29/23 08:05 84 94 L 06/29/23 08:00 97.6 F 81 14 95/59 96 06/29/23 07:00 99.5 F 76 26 H 103/52 95 06/29/23 06:09 99.5 F 06/29/23 06:00 78 22 100/54 99 06/29/23 05:00 80 24 103/52 99 06/29/23 04:00 99.3 F 79 24 102/48 96 06/29/23 03:21 99.3 F 04/20/24 03:00 80 22 105/48 100 06/29/23 02:00 81 26 H 102/45 95 06/29/23 01:39 88 06/29/23 01:32 83 06/29/23 01:00 77 20 102/45 96 06/29/23 00:29 30 H 06/29/23 00:07 88 06/29/23 00:01 83 06/29/23 00:00 79 20 124/77 95 06/28/23 23:32 97.5 F L 80 24 124/77 90 L FiO2 06/29/23 12:22 06/29/23 12:10 06/29/23 09:48 40 06/29/23 08:12 06/29/23 08:05 06/29/23 08:00 06/29/23 07:00 06/29/23 06:09 06/29/23 06:00 06/29/23 05:00 06/29/23 04:00 06/29/23 03:21 06/29/23 03:00 06/29/23 02:00 06/29/23 01:39 06/29/23 01:32 06/29/23 01:00 06/29/23 00:29 06/29/23 00:07 06/29/23 00:01 06/29/23 00:00 06/28/23 23:32 Intake and Output 06/28/23 06/29/23 06/29/23 22:59 06:59 14:59 Output Total 200 Balance -200 Output: Urine 200 Other: Voiding Method Indwelling Catheter Weight 43.998 kg GENERAL EXAM: Revealed 82-year-old female, looks frail, chronically ill, in no distress, on nasal cannula. HEAD: Normocephalic. EYES: Normal reaction of pupils, equal size. NOSE: Clear with pink turbinates. THROAT: No erythema or exudates. NECK: No masses, no JVD. CHEST: No chest wall deformity. LUNGS: Coarse crackles at the bases bilaterally. CVS: S1 and S2 normal with no audible murmur, regular rhythm. ABDOMEN: No hepatosplenomegaly, normal bowel sounds, no guarding or rigidity. SPINE: No scoliosis or deformity SKIN: Areas of ecchymosis and bruising noted throughout. CENTRAL NERVOUS SYSTEM: No focal deficits, tone is normal in all 4 extremities. Alert and oriented x 3. EXTREMITIES: There is no peripheral edema. No clubbing, no cyanosis. Peripheral pulses are intact. Results - Laboratory Findings CBC and BMP: 06/28/23 23:52 06/28/23 23:52 ABG ABG pH 7.54 (7.35-7.45) H 06/29/23 03:25 ABG pCO2 48 mmHg (35-45) H 06/29/23 03:25 ABG pO2 69 mmHg (83-108) L 06/29/23 03:25 ABG O2 Saturation 95.4 % (94-97) 06/29/23 03:25 PT/INR, D-dimer PT 36.6 sec (10.0-12.5) H 06/28/23 23:52 INR 3.7 (<1.2) H 06/28/23 23:52 Abnormal lab findings: Abnormal Labs 06/28/23 06/28/23 06/28/23 23:52 23:52 23:52 WBC 28.0 H RBC 3.44 L Hgb 10.5 L MCV 100.6 H D MCHC 30.2 L RDW 17.4 H Neutrophils # 26.9 H Lymphocytes # 0.4 L PT 36.6 H INR 3.7 H ABG pH ABG pCO2 ABG pO2 ABG HCO3 ABG Total CO2 Potassium 6.2 H* Chloride 94 L Carbon Dioxide 37 H BUN 79 H Creatinine 1.71 H Glucose 104 H POC Glucose (mg/dL) Magnesium 3.1 H AST 378 H ALT 350 H Alkaline Phosphatase 359 H Troponin I Albumin 3.0 L Urine Appearance Urine Protein Urine Glucose (UA) Urine Ketones Urine Blood Ur Leukocyte Esterase Urine RBC Urine WBC Urine WBC Clumps Urine Mucus Urine Yeast (Budding) U Benzodiazepines Scrn 06/28/23 06/28/23 06/29/23 23:52 23:52 03:25 WBC RBC Hgb MCV MCHC RDW Neutrophils # Lymphocytes # PT INR ABG pH 7.54 H ABG pCO2 48 H ABG pO2 69 L ABG HCO3 41 H* ABG Total CO2 42 H Potassium Chloride Carbon Dioxide BUN Creatinine Glucose POC Glucose (mg/dL) 113 H Magnesium AST ALT Alkaline Phosphatase Troponin I 0.247 H* Albumin Urine Appearance Urine Protein Urine Glucose (UA) Urine Ketones Urine Blood Ur Leukocyte Esterase Urine RBC Urine WBC Urine WBC Clumps Urine Mucus Urine Yeast (Budding) U Benzodiazepines Scrn 06/29/23 06/29/23 06/29/23 03:31 04:03 04:32 WBC RBC Hgb MCV MCHC RDW Neutrophils # Lymphocytes # PT INR ABG pH ABG pCO2 ABG pO2 ABG HCO3 ABG Total CO2 Potassium Chloride Carbon Dioxide BUN Creatinine Glucose POC Glucose (mg/dL) Magnesium AST ALT Alkaline Phosphatase Troponin I 0.286 H* Albumin Urine Appearance Cloudy H Urine Protein 1+ H Urine Glucose (UA) 2+ H Urine Ketones Trace H Urine Blood Moderate H Ur Leukocyte Esterase Trace H Urine RBC 40 H Urine WBC 17 H Urine WBC Clumps Rare H Urine Mucus Rare H Urine Yeast (Budding) Many H U Benzodiazepines Scrn Detected H 06/29/23 06:59 WBC RBC Hgb MCV MCHC RDW Neutrophils # Lymphocytes # PT INR ABG pH ABG pCO2 ABG pO2 ABG HCO3 ABG Total CO2 Potassium Chloride Carbon Dioxide BUN Creatinine Glucose POC Glucose (mg/dL) Magnesium AST ALT Alkaline Phosphatase Troponin I 0.286 H* Albumin Urine Appearance Urine Protein Urine Glucose (UA) Urine Ketones Urine Blood Ur Leukocyte Esterase Urine RBC Urine WBC Urine WBC Clumps Urine Mucus Urine Yeast (Budding) U Benzodiazepines Scrn - Diagnostic Findings Chest x-ray: image reviewed (Chest x-ray is consistent with mild interstitial edema. Underlying pneumonia is not entirely ruled out but felt to be less likely) Assessment and Plan Assessment: Impression: Acute on chronic hypoxic respiratory failure, multifactorial Acute on chronic congestive heart failure with preserved ejection fraction History of COVID-19 pneumonia and healthcare acquired pneumonia, patient was treated with remdesivir on the last admission History of rheumatoid arthritis and possibly some component of interstitial lung disease Severe mitral valve disease with severe mitral stenosis, and mild aortic regurgitation and stenosis. But the patient has relatively maintained ejection fraction. History of rheumatoid arthritis Hypothyroidism Lifelong non-smoker Mild intermittent asthma Acute kidney injury/ATN Acute hyperkalemia secondary to acute kidney injury, patient had recent treatment with Bactrim for a UTI. Pyuria, UTI, possible sepsis from urinary tract infection Recommendation: Will try to admit the patient to the ICU Continue gentle fluid boluses, considering the patient does have mild interstitial edema and she does have a presentation of sepsis with relatively low blood pressure. Antibiotics the patient is receiving cefepime, and she did receive a dose of vancomycin which I will likely discontinue after reviewing the next urine and blood cultures continue updrafts Close monitoring of blood pressure, electrolytes, renal profile, Resume home meds Will continue to follow Overall prognosis remains extremely poor and guarded, patient has been frequently in and out of the hospital recently, will discuss CODE STATUS with this patient in the next 24 hours. Time with Patient: Greater than 30
--- NOTE | 2023-06-29 14:33 | P.HPIM ---
History of Present Illness H&P Date: 06/29/23 History of present illness; patient is a 82-year-old lady with past medical his tory significant for congestive heart failure, atrial fibrillation with RVR,presented to the ER because of worsening shortness of breath. Patient was only recently discharged on 06/25 after being treated in the hospital for similar complaints.after discharge, patient was all right for 1 day but started noticing that she was getting more short of breath on exertion. Patient denied any chest pain. There was no complain of orthopnea or PND. There was no complain of swelling of feet. There was no complain of fever or chills. Patient oxygen requirements were also increasing so she was transferred back to the ER Initial lab work done in the ER showed WBC 28, hemoglobin 10.5, platelet count 332, INR 3.7, sodium 138, potassium 6.2, BUN 79, creatinine1.71, AST 378, ALT 350, troponin 0.247 EKG done in the ER showed heart rate of 81 , no ST segment elevation or depression seen, no T-wave inversions seen. Chest x-ray done in the ER showed cardiomegaly and moderate vascular congestion Patient admitted to internal medicine service REVIEW OF SYSTEMS: CONSTITUTIONAL: No fever, no malaise, no fatigue. HEENT: No recent visual problems or hearing problems. Denied any sore throat. CARDIOVASCULAR: as mentioned in HPI PULMONARY: as mentioned in HPI GASTROINTESTINAL: No diarrhea, no nausea, no vomiting, no abdominal pain. NEUROLOGICAL: No headaches, no weakness, no numbness. HEMATOLOGICAL: Denies any bleeding or petechiae. GENITOURINARY: Denies any burning micturition, frequency, or urgency. MUSCULOSKELETAL/RHEUMATOLOGICAL: Denies any joint pain, swelling, or any muscle pain. ENDOCRINE: Denies any polyuria or polydipsia. The rest of the 14-point review of systems is negative. PHYSICAL EXAMINATION: GENERAL: The patient is alert and oriented x3, not in any acute distress. cachectic, chronically ill-looking HEENT: Pupils are round and equally reacting to light. EOMI. No scleral icterus. No conjunctival pallor. Normocephalic, atraumatic. No pharyngeal erythema. No thyromegaly. CARDIOVASCULAR: S1 and S2 present. murmur audible PULMONARY: tachypneic, coarse breath sounds bilaterally, no wheeze, rhonchi audible ABDOMEN: Soft, nontender, nondistended, normoactive bowel sounds. No palpable organomegaly. MUSCULOSKELETAL: No joint swelling or deformity. EXTREMITIES: No cyanosis, clubbing, or pedal edema. NEUROLOGICAL: Gross neurological examination did not reveal any focal deficits. SKIN: No rashes. Assessment and plan acute on chronic hypoxic respiratory failure Non-ST elevation HI Hyperkalemia Acute kidney injury acute transaminitis Acute exacerbation of mild intermittent chronic bronchial asthma History of coronary artery disease with previous PCI/stent x3 History of hyperlipidemia History of hypertension Moderate to severe mitral calcification and moderate to severe mitral stenosis and mild aortic regurgitation and stenosis. Pulmonary hypertension WHO class II Rheumatoid arthritis History of hypothyroidism Lifelong non-smoker Monitor vital signs Monitor CBC Monitor CMP Continue telemetry monitoring continue oxygen supplementation Aggressive bronchopulmonary hygiene Strict I's and O's, daily weights avoid nephrotoxic agents check pro-Michele continue IV cefepime and vancomycin cardiology consulted Nephrology consulted Pulmonary consult Labs and medication were reviewed.. Continue same treatment. Continue with symptomatic treatment. Resume home medication. Monitor labs and vitals. DVT and GI prophylaxis. Further recommendations as per clinical course of the patient Dictation was produced using [employer] dictation software. please excuse any grammatical, word or spelling errors. Past Medical History Past Medical History: Heart Failure, Hyperlipidemia, Hypertension, Mitral Valve Prolapse (MVP), Rheumatoid Arthritis (RA), Thyroid Disorder Additional Past Medical History / Comment(s): HAD A PNE VACCINE AFTER AGE 67 BUT NOT SURE OF DATE,OFFICE CLOSED AT TIME OF THIS ADMIT. Last Myocardial Infarction Date:: History of Any Multi-Drug Resistant Organisms: None Reported Past Surgical History: Section, Orthopedic Surgery Additional Past Surgical History / Comment(s): total right knee replacement Past Anesthesia/Blood Transfusion Reactions: No Reported Reaction Additional Past Anesthesia/Blood Transfusion Reaction / Comment(s): clausterphobia Past Psychological History: No Psychological Hx Reported Smoking Status: Never smoker Past Alcohol Use History: Occasional Past Drug Use History: None Reported - Past Family History Father Additional Family Medical History / Comment(s): smoker-had problems related to that Mother Additional Family Medical History / Comment(s): smoker-problems related to that Medications and Allergies Home Medications Medication Instructions Recorded Confirmed Type Budesonide-Formot 160-4.5 Mcg 2 puff INHALATION RT-BID #1 inhaler 04/06/16 06/29/23 Rx [Symbicort 160-4.5 Mcg Inhaler] Alendronate Sodium [Fosamax] 70 mg PO MO@0900 08/09/21 06/29/23 History Cholecalciferol [Vitamin D3 (25 50 mcg PO DAILY 08/09/21 06/29/23 History Mcg = 1000 Iu)] Levothyroxine Sodium [Synthroid] 112 mcg PO MOTUWETHFR@0600 08/09/21 06/29/23 History Montelukast [Singulair] 10 mg PO HS 08/09/21 06/29/23 History Acetaminophen [Tylenol Arthritis] 650 mg PO Q8HR PRN 03/19/22 06/29/23 History Empagliflozin [Jardiance] 10 mg PO DAILY 03/19/22 06/29/23 History Levothyroxine Sodium [Synthroid] 56 mcg PO SUSA@0600 03/19/22 06/29/23 History Aspirin 81 mg PO DAILY@0605/26/23 06/29/23 History Atorvastatin [Lipitor] 80 mg PO HS 05/26/23 06/29/23 History Calcium Carbonate [Calcium] 600 mg PO DAILY 05/26/23 06/29/23 History Furosemide [Lasix] 40 mg PO DAILY@59905/26/23 06/29/23 History Albuterol Inhaler [Ventolin Hfa 2 puff INHALATION RT-QID PRN #1 05/31/23 06/29/23 Rx Inhaler] each ALPRAZolam [Xanax] 0.25 mg PO Q8HR PRN 3 Days #9 tab 06/26/23 06/29/23 Rx Amiodarone [Cordarone] 400 mg PO BID tab 06/26/23 06/29/23 Rx Benzonatate [Tessalon Perles] 200 mg PO TID PRN cap 06/26/23 06/29/23 Rx Nystatin 100,000 Unit/ml Susp 5 ml PO QID 7 Days #140 ml 06/26/23 06/29/23 Rx [Mycostatin Oral Susp] Ascorbic Acid [Vitamin C] 1,000 mg PO DAILY 06/29/23 06/29/23 History INSULIN ASPART (NovoLOG) [NovoLOG See Protocol SQ ACHS 06/29/23 06/29/23 History (formulary)] Magnesium Oxide [Mag-Ox] 400 mg PO DAILY 06/29/23 06/29/23 History Metoprolol Tartrate [Lopressor] 50 mg PO Q12H 06/29/23 06/29/23 History Multivitamins, Thera [Multivitamin 1 tab PO DAILY 06/29/23 06/29/23 History (formulary)] Omeprazole Magnesium [PriLOSEC OTC] 20 mg PO HS 06/29/23 06/29/23 History Sulfamethox-Tmp 800-160Mg [Bactrim 1 tab PO BID 06/29/23 06/29/23 History DS 800-160 mg] Warfarin [Coumadin] 0.5 mg PO DAILY@1700 06/29/23 06/29/23 History Zinc Sulfate [Orazinc] 220 mg PO DAILY 06/29/23 06/29/23 History predniSONE See Taper PO DIRECTED 06/29/23 06/29/23 History Allergies Allergy/AdvReac Type Severity Reaction Status Date / Time clarithromycin [From Biaxin] Allergy Unknown Verified 06/29/23 08:45 gemifloxacin [From Factive] Allergy Unknown Verified 06/29/23 08:45 prednisone Allergy Unknown Verified 06/29/23 08:45 amoxicillin [From Augmentin] AdvReac Nausea & Verified 06/29/23 08:45 Vomiting & Diarrhea clavulanic acid AdvReac Nausea & Verified 06/29/23 08:45 [From Augmentin] Vomiting & Diarrhea Physical Exam Vitals: Vital Signs Temp Pulse Pulse Resp BP BP Pulse Ox 06/29/23 09:48 94 L 06/29/23 08:12 84 06/29/23 08:05 84 94 L 06/29/23 08:00 97.6 F 81 14 95/59 96 06/29/23 07:00 99.5 F 76 26 H 103/52 95 06/29/23 06:09 99.5 F 06/29/23 06:00 78 22 100/54 99 06/29/23 05:00 80 24 103/52 99 06/29/23 04:00 99.3 F 79 24 102/48 96 06/29/23 03:21 99.3 F 06/29/23 03:00 80 22 105/48 100 06/29/23 02:00 81 26 H 102/45 95 04/20/24 01:39 88 06/29/23 01:32 83 06/29/23 01:00 77 20 102/45 96 06/29/23 00:29 30 H 06/29/23 00:07 88 06/29/23 00:01 83 06/29/23 00:00 79 20 124/77 95 06/28/23 23:32 97.5 F L 80 24 124/77 90 L FiO2 06/29/23 09:48 40 06/29/23 08:12 06/29/23 08:05 06/29/23 08:00 06/29/23 07:00 06/29/23 06:09 06/29/23 06:00 06/29/23 05:00 06/29/23 04:00 06/29/23 03:21 06/29/23 03:00 06/29/23 02:00 06/29/23 01:39 06/29/23 01:32 06/29/23 01:00 06/29/23 00:29 06/29/23 00:07 06/29/23 00:01 06/29/23 00:00 06/28/23 23:32 Intake and Output 06/28/23 06/29/23 06/29/23 22:59 06:59 14:59 Output Total 200 Balance -200 Output: Urine 200 Other: Weight 43.998 kg Results CBC & Chem 7: 06/28/23 23:52 06/28/23 23:52 Labs: Abnormal Lab Results - Last 24 Hours (Table) 06/28/23 06/28/23 06/28/23 Range/Units 23:52 23:52 23:52 WBC 28.0 H (3.8-10.6) k/uL RBC 3.44 L (3.80-5.40) m/uL Hgb 10.5 L (11.4-16.0) gm/dL MCV 100.6 H D (80.0-100.0) fL MCHC 30.2 L (31.0-37.0) g/dL RDW 17.4 H (11.5-15.5) % Neutrophils # 26.9 H (1.3-7.7) k/uL Lymphocytes # 0.4 L (1.0-4.8) k/uL PT 36.6 H (10.0-12.5) sec INR 3.7 H (<1.2) ABG pH (7.35-7.45) ABG pCO2 (35-45) mmHg ABG pO2 (83-108) mmHg ABG HCO3 (21-25) mmol/L ABG Total CO2 (19-24) mmol/L Potassium 6.2 H* (3.5-5.1) mmol/L Chloride 94 L (98-107) mmol/L Carbon Dioxide 37 H (22-30) mmol/L BUN 79 H (7-17) mg/dL Creatinine 1.71 H (0.52-1.04) mg/dL Glucose 104 H (74-99) mg/dL POC Glucose (mg/dL) (70-110) mg/dL Magnesium 3.1 H (1.6-2.3) mg/dL AST 378 H (14-36) U/L ALT 350 H (4-34) U/L Alkaline Phosphatase 359 H (38-126) U/L Troponin I (0.000-0.034) ng/mL Albumin 3.0 L (3.5-5.0) g/dL Urine Appearance (Clear) Urine Protein (Negative) Urine Glucose (UA) (Negative) Urine Ketones (Negative) Urine Blood (Negative) Ur Leukocyte Esterase (Negative) Urine RBC (0-5) /hpf Urine WBC (0-5) /hpf Urine WBC Clumps (None) /hpf Urine Mucus (None) /hpf Urine Yeast (Budding) (None) /hpf U Benzodiazepines Scrn (NotDetected) 06/28/23 06/28/23 06/29/23 Range/Units 23:52 23:52 03:25 WBC (3.8-10.6) k/uL RBC (3.80-5.40) m/uL Hgb (11.4-16.0) gm/dL MCV (80.0-100.0) fL MCHC (31.0-37.0) g/dL RDW (11.5-15.5) % Neutrophils # (1.3-7.7) k/uL Lymphocytes # (1.0-4.8) k/uL PT (10.0-12.5) sec INR (<1.2) ABG pH 7.54 H (7.35-7.45) ABG pCO2 48 H (35-45) mmHg ABG pO2 69 L (83-108) mmHg ABG HCO3 41 H* (21-25) mmol/L ABG Total CO2 42 H (19-24) mmol/L Potassium (3.5-5.1) mmol/L Chloride (98-107) mmol/L Carbon Dioxide (22-30) mmol/L BUN (7-17) mg/dL Creatinine (0.52-1.04) mg/dL Glucose (74-99) mg/dL POC Glucose (mg/dL) 113 H (70-110) mg/dL Magnesium (1.6-2.3) mg/dL AST (14-36) U/L ALT (4-34) U/L Alkaline Phosphatase (38-126) U/L Troponin I 0.247 H* (0.000-0.034) ng/mL Albumin (3.5-5.0) g/dL Urine Appearance (Clear) Urine Protein (Negative) Urine Glucose (UA) (Negative) Urine Ketones (Negative) Urine Blood (Negative) Ur Leukocyte Esterase (Negative) Urine RBC (0-5) /hpf Urine WBC (0-5) /hpf Urine WBC Clumps (None) /hpf Urine Mucus (None) /hpf Urine Yeast (Budding) (None) /hpf U Benzodiazepines Scrn (NotDetected) 06/29/23 06/29/23 06/29/23 Range/Units 03:31 04:03 04:32 WBC (3.8-10.6) k/uL RBC (3.80-5.40) m/uL Hgb (11.4-16.0) gm/dL MCV (80.0-100.0) fL MCHC (31.0-37.0) g/dL RDW (11.5-15.5) % Neutrophils # (1.3-7.7) k/uL Lymphocytes # (1.0-4.8) k/uL PT (10.0-12.5) sec INR (<1.2) ABG pH (7.35-7.45) ABG pCO2 (35-45) mmHg ABG pO2 (83-108) mmHg ABG HCO3 (21-25) mmol/L ABG Total CO2 (19-24) mmol/L Potassium (3.5-5.1) mmol/L Chloride (98-107) mmol/L Carbon Dioxide (22-30) mmol/L BUN (7-17) mg/dL Creatinine (0.52-1.04) mg/dL Glucose (74-99) mg/dL POC Glucose (mg/dL) (70-110) mg/dL Magnesium (1.6-2.3) mg/dL AST (14-36) U/L ALT (4-34) U/L Alkaline Phosphatase (38-126) U/L Troponin I 0.286 H* (0.000-0.034) ng/mL Albumin (3.5-5.0) g/dL Urine Appearance Cloudy H (Clear) Urine Protein 1+ H (Negative) Urine Glucose (UA) 2+ H (Negative) Urine Ketones Trace H (Negative) Urine Blood Moderate H (Negative) Ur Leukocyte Esterase Trace H (Negative) Urine RBC 40 H (0-5) /hpf Urine WBC 17 H (0-5) /hpf Urine WBC Clumps Rare H (None) /hpf Urine Mucus Rare H (None) /hpf Urine Yeast (Budding) Many H (None) /hpf U Benzodiazepines Scrn Detected H (NotDetected) 06/29/23 Range/Units 06:59 WBC (3.8-10.6) k/uL RBC (3.80-5.40) m/uL Hgb (11.4-16.0) gm/dL MCV (80.0-100.0) fL MCHC (31.0-37.0) g/dL RDW (11.5-15.5) % Neutrophils # (1.3-7.7) k/uL Lymphocytes # (1.0-4.8) k/uL PT (10.0-12.5) sec INR (<1.2) ABG pH (7.35-7.45) ABG pCO2 (35-45) mmHg ABG pO2 (83-108) mmHg ABG HCO3 (21-25) mmol/L ABG Total CO2 (19-24) mmol/L Potassium (3.5-5.1) mmol/L Chloride (98-107) mmol/L Carbon Dioxide (22-30) mmol/L BUN (7-17) mg/dL Creatinine (0.52-1.04) mg/dL Glucose (74-99) mg/dL POC Glucose (mg/dL) (70-110) mg/dL Magnesium (1.6-2.3) mg/dL AST (14-36) U/L ALT (4-34) U/L Alkaline Phosphatase (38-126) U/L Troponin I 0.286 H* (0.000-0.034) ng/mL Albumin (3.5-5.0) g/dL Urine Appearance (Clear) Urine Protein (Negative) Urine Glucose (UA) (Negative) Urine Ketones (Negative) Urine Blood (Negative) Ur Leukocyte Esterase (Negative) Urine RBC (0-5) /hpf Urine WBC (0-5) /hpf Urine WBC Clumps (None) /hpf Urine Mucus (None) /hpf Urine Yeast (Budding) (None) /hpf U Benzodiazepines Scrn (NotDetected)
[2023-06-29 14:40] LABS: African American GFR (CKD) 46 (>60 ml/min/1.73 sqM); Anion Gap 5 mmol/L; Blood Urea Nitrogen 72 mg/dL (7-17); Calcium 7.2 mg/dL (8.4-10.2); Carbon Dioxide 32 mmol/L (22-30); Chloride 99 mmol/L (98-107); Glucose 224 mg/dL (74-99); Non-African American GFR(CKD) 40 (>60 ml/min/1.73 sqM); Sodium 136 mmol/L (137-145)
[2023-06-29 14:52] LABS: Potassium 5.2 mmol/L (3.5-5.1)
--- NOTE | 2023-06-29 15:24 | P.CRDCN ---
History of Present Illness Consult date: 06/29/23 Chief complaint: Shortness of breath History of present illness: The patient is an 82-year-old female patient who is known to our service from [facility] with a past medical history significant for coronary artery disease with prior stenting of the left anterior descending artery as well as heart failure with preserved ejection fraction and also history of valvular heart disease and known severe mitral stenosis as well as severe pulmonary hypertension and also history of chronic obstructive pulmonary disease as well as multiple comorbid conditions. The patient is also known to have paroxysmal atrial fibrillation has been on oral anticoagulation the patient is a resident at [facility]. This time she was brought back to the emergency department because it was noted that she was hypoxic over there. The patient is extremely poor historian but she stated that she has been a bit more short of breath than normal. No pain in the chest and no dizziness or lightheadedness and no feeling of heart racing or fluttering. No change in mental status. When she was seen and evaluated though she was slightly lethargic. She underwent further investigation including an EKG and that showed sinus mechanism with diffuse nonspecific ST and T wave abnormalities. She underwent cardioversion recently. Troponin came in to be mildly abnormal but appears to be flat across the board. The chest x-ray showed finding consistent with heart failure. The NT proBNP came in to be severely elevated. The blood pressure has been marginal. The patient just was seen by our service back in June 2023 when she was admitted with atrial fibrillation with rapid ventricular response and underwent an echo which revealed preserved LV systolic function with evidence of severe mitral stenosis and severe pulmonary hypertension. Physical examination reveals slightly lethargic patient with regular rate and rhythm and systolic murmur and diminished breathing sounds bilaterally and bilateral lower extremities edema noted. Please note that also she underwent a urine analysis and that showed possible UTI/sepsis 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 Marginally low blood pressure Renal failure Paroxysmal atrial fibrillation UTI/sepsis Plan The patient is going to be admitted to the intensive care unit Consider starting the patient on vasopressors if the pressure remains low Antibiotic as recommended by the internal medicine team Avoid aggressive diuresis giving the marginally low blood pressure Follow-up with the patient Continue monitoring the hemoglobin and the kidney function and electrolytes Possible blood culture Overall the prognosis is poor Past Medical History Past Medical History: Heart Failure, Hyperlipidemia, Hypertension, Mitral Valve Prolapse (MVP), Rheumatoid Arthritis (RA), Thyroid Disorder Additional Past Medical History / Comment(s): HAD A PNE VACCINE AFTER AGE 67 BUT NOT SURE OF DATE,OFFICE CLOSED AT TIME OF THIS ADMIT. Last Myocardial Infarction Date:: History of Any Multi-Drug Resistant Organisms: None Reported Past Surgical History: Section, Orthopedic Surgery Additional Past Surgical History / Comment(s): total right knee replacement Past Anesthesia/Blood Transfusion Reactions: No Reported Reaction Additional Past Anesthesia/Blood Transfusion Reaction / Comment(s): clausterphobia Past Psychological History: No Psychological Hx Reported Smoking Status: Never smoker Past Alcohol Use History: Occasional Past Drug Use History: None Reported - Past Family History Father Additional Family Medical History / Comment(s): smoker-had problems related to that Mother Additional Family Medical History / Comment(s): smoker-problems related to that Medications and Allergies Home Medications Medication Instructions Recorded Confirmed Type Budesonide-Formot 160-4.5 Mcg 2 puff INHALATION RT-BID #1 inhaler 04/06/16 06/29/23 Rx [Symbicort 160-4.5 Mcg Inhaler] Alendronate Sodium [Fosamax] 70 mg PO MO@0908/09/21 06/29/23 History Cholecalciferol [Vitamin D3 (25 50 mcg PO DAILY 08/09/21 06/29/23 History Mcg = 1000 Iu)] Levothyroxine Sodium [Synthroid] 112 mcg PO MOTUWETHFR@0600 08/09/21 06/29/23 History Montelukast [Singulair] 10 mg PO HS 08/09/21 06/29/23 History Acetaminophen [Tylenol Arthritis] 650 mg PO Q8HR PRN 03/19/22 06/29/23 History Empagliflozin [Jardiance] 10 mg PO DAILY 03/19/22 06/29/23 History Levothyroxine Sodium [Synthroid] 56 mcg PO SUSA@0600 03/19/22 06/29/23 History Aspirin 81 mg PO DAILY@0600 05/26/23 06/29/23 History Atorvastatin [Lipitor] 80 mg PO HS 05/26/23 06/29/23 History Calcium Carbonate [Calcium] 600 mg PO DAILY 05/26/23 06/29/23 History Furosemide [Lasix] 40 mg PO DAILY@0600 05/26/23 06/29/23 History Albuterol Inhaler [Ventolin Hfa 2 puff INHALATION RT-QID PRN #1 05/31/23 06/29/23 Rx Inhaler] each ALPRAZolam [Xanax] 0.25 mg PO Q8HR PRN 3 Days #9 tab 06/26/23 06/29/23 Rx Amiodarone [Cordarone] 400 mg PO BID tab 06/26/23 06/29/23 Rx Benzonatate [Tessalon Perles] 200 mg PO TID PRN cap 06/26/23 06/29/23 Rx Nystatin 100,000 Unit/ml Susp 5 ml PO QID 7 Days #140 ml 06/26/23 06/29/23 Rx [Mycostatin Oral Susp] Ascorbic Acid [Vitamin C] 1,000 mg PO DAILY 06/29/23 06/29/23 History INSULIN ASPART (NovoLOG) [NovoLOG See Protocol SQ ACHS 06/29/23 06/29/23 History (formulary)] Magnesium Oxide [Mag-Ox] 400 mg PO DAILY 06/29/23 06/29/23 History Metoprolol Tartrate [Lopressor] 50 mg PO Q12H 06/29/23 06/29/23 History Multivitamins, Thera [Multivitamin 1 tab PO DAILY 06/29/23 06/29/23 History (formulary)] Omeprazole Magnesium [PriLOSEC OTC] 20 mg PO HS 06/29/23 06/29/23 History Sulfamethox-Tmp 800-160Mg [Bactrim 1 tab PO BID 06/29/23 06/29/23 History DS 800-160 mg] Warfarin [Coumadin] 0.5 mg PO DAILY@1700 06/29/23 06/29/23 History Zinc Sulfate [Orazinc] 220 mg PO DAILY 06/29/23 06/29/23 History predniSONE See Taper PO DIRECTED 06/29/23 06/29/23 History Allergies Allergy/AdvReac Type Severity Reaction Status Date / Time clarithromycin [From Biaxin] Allergy Unknown Verified 06/29/23 08:45 gemifloxacin [From Factive] Allergy Unknown Verified 06/29/23 08:45 prednisone Allergy Unknown Verified 06/29/23 08:45 amoxicillin [From Augmentin] AdvReac Nausea & Verified 06/29/23 08:45 Vomiting & Diarrhea clavulanic acid AdvReac Nausea & Verified 06/29/23 08:45 [From Augmentin] Vomiting & Diarrhea Physical Exam Vitals: Vital Signs Temp Pulse Pulse Resp BP BP Pulse Ox 06/29/23 12:22 87 06/29/23 12:10 86 06/29/23 09:48 94 L 06/29/23 08:12 84 06/29/23 08:05 84 94 L 06/29/23 08:00 97.6 F 81 14 95/59 96 06/29/23 07:00 99.5 F 76 26 H 103/52 95 06/29/23 06:09 99.5 F 06/29/23 06:00 78 22 100/54 99 06/29/23 05:00 80 24 103/52 99 06/29/23 04:00 99.3 F 79 24 102/48 96 06/29/23 03:21 99.3 F 06/29/23 03:00 80 22 105/48 100 06/29/23 02:00 81 26 H 102/45 95 06/29/23 01:39 88 06/29/23 01:32 83 06/29/23 01:00 77 20 102/45 96 06/29/23 00:29 30 H 06/29/23 00:07 88 06/29/23 00:01 83 06/29/23 00:00 79 20 124/77 95 06/28/23 23:32 97.5 F L 80 24 124/77 90 L FiO2 06/29/23 12:22 06/29/23 12:10 06/29/23 09:48 40 06/29/23 08:12 06/29/23 08:05 06/29/23 08:00 06/29/23 07:00 06/29/23 06:09 06/29/23 06:00 06/29/23 05:00 06/29/23 04:00 06/29/23 03:21 06/29/23 03:00 06/29/23 02:00 06/29/23 01:39 06/29/23 01:32 06/29/23 01:00 06/29/23 00:29 06/29/23 00:07 06/29/23 00:01 06/29/23 00:00 06/28/23 23:32 Intake and Output 06/29/23 06/29/23 06/29/23 06:59 14:59 22:59 Output Total 200 Balance -200 Output: Urine 200 Other: Voiding Method Indwelling Catheter Weight 43.998 kg Results 06/28/23 23:52 06/29/23 14:20 Cardiac Enzymes 06/28/23 06/28/23 06/29/23 Range/Units 23:52 23:52 04:32 AST 378 H (14-36) U/L Troponin I 0.247 H* 0.286 H* (0.000-0.034) ng/mL 06/29/23 Range/Units 06:59 AST (14-36) U/L Troponin I 0.286 H* (0.000-0.034) ng/mL Coagulation 06/28/23 Range/Units 23:52 PT 36.6 H (10.0-12.5) sec APTT 29.8 (22.0-30.0) sec CBC 06/28/23 Range/Units 23:52 WBC 28.0 H (3.8-10.6) k/uL RBC 3.44 L (3.80-5.40) m/uL Hgb 10.5 L (11.4-16.0) gm/dL Hct 34.6 (34.0-46.0) % Plt Count 332 (150-450) k/uL Comprehensive Metabolic Panel 06/28/23 06/29/23 Range/Units 23:52 14:20 Sodium 138 136 L (137-145) mmol/L Potassium 6.2 H* 5.2 H (3.5-5.1) mmol/L Chloride 94 L 99 (98-107) mmol/L Carbon Dioxide 37 H 32 H (22-30) mmol/L BUN 79 H 72 H (7-17) mg/dL Creatinine 1.71 H 1.28 H (0.52-1.04) mg/dL Glucose 104 H 224 H (74-99) mg/dL Calcium 8.6 7.2 L (8.4-10.2) mg/dL AST 378 H (14-36) U/L ALT 350 H (4-34) U/L Alkaline Phosphatase 359 H (38-126) U/L Total Protein 6.4 (6.3-8.2) g/dL Albumin 3.0 L (3.5-5.0) g/dL Current Medications Generic Name Dose Route Start Last Admin Trade Name Freq PRN Reason Stop Dose Admin Albuterol/Ipratropium 3 ml 06/29/23 08:00 06/29/23 12:07 Ipratropium-Albuterol 3 Ml Neb INHALATION 3 ml RT-QID PAUL Administration Albuterol/Ipratropium 3 ml 06/29/23 08:00 Ipratropium-Albuterol 3 Ml Neb INHALATION RT-Q2H PRN Shortness Of Breath Or Wheezing Dextrose/Sodium Chloride 1,000 mls @ 50 mls/hr 06/29/23 02:30 06/29/23 12:42 Dextrose 5%-1/2ns Iv Soln IV 50 mls/hr .Q20H PAUL Administration Vancomycin HCl 750 mg/ Sodium 250 mls @ 125 mls/hr 06/30/23 06:00 Chloride IVPB 06/30/23 07:59 ONCE ONE Cefepime HCl 1 gm/ Sodium 50 mls @ 12.5 mls/hr 06/29/23 21:00 Chloride IVPB Q12HR [facility] Miscellaneous Information 1 each 06/29/23 02:16 Vancomycin Iv Per Pharmacy 1 Each Misc MISCELLANE DIRECTED PRN Per Protocol Protocol Naloxone HCl 0.2 mg 06/29/23 01:11 Naloxone 0.4 Mg/Ml 1 Ml Vial IV Q2M PRN Opioid Reversal Ondansetron HCl 4 mg 06/29/23 01:11 Ondansetron 4 Mg/2 Ml Vial IVP Q8HR PRN Nausea And Vomiting Intake and Output 06/29/23 06/29/23 06/29/23 06:59 14:59 22:59 Output Total 200 Balance -200 Output: Urine 200 Other: Voiding Method Indwelling Catheter Weight 43.998 kg 06/28/23 23:52 06/29/23 14:20
--- NOTE | 2023-06-29 15:45 | CA ---
Transthoracic Echo Report Name: Juan Francisco Grande Age: 82 Gender: F : 1940 Exam Date: 06/29/2023 14:35 Exam Location: [place] [facility] [facility] Ht (in): 63 Wt (lb): 97 Ordering Physician: Melvin Oviedo MD ([id number]) Attending/Referring Phys: [employer] Supervisor Jennifer Nicole RDCS Procedure CPT: Indications: elevated troponin Cardiac Hx: Technical Quality: Good Contrast 1: Total Dose (mL): Contrast 2: Total Dose (mL): MEASUREMENTS (Male / Female) Normal Values 2D ECHO LV Diastolic Diameter PLAX 4.1 cm 4.2 - 5.9 / 3.9 - 5.3 cm LV Systolic Diameter PLAX 3.8 cm IVS Diastolic Thickness 1.4 cm 0.6 - 1.0 / 0.6 - 0.9 cm LVPW Diastolic Thickness 1.4 cm 0.6 - 1.0 / 0.6 - 0.9 cm LV Relative Wall Thickness 0.7 RV Internal Dim ED PLAX 2.4 cm LVOT Diameter 2.0 cm LA Systolic Diameter LX 3.7 cm 3.0 - 4.0 / 2.7 - 3.8 cm LA Volume 63.1 cm??? 18 - 58 / 22 - 52 cm??? LA Volume Index 45.5 cm???/m??? 16 - 28 cm???/m??? M-MODE Aortic Root Diameter MM 3.1 cm AV Cusp Separation MM 1.0 cm DOPPLER AV Peak Velocity 289.1 cm/s AV Peak Gradient 33.4 mmHg AV Mean Velocity 177.8 cm/s AV Mean Gradient 15.2 mmHg AV Velocity Time Integral 45.3 cm AI Peak Velocity 324.9 cm/s AI Peak Gradient 42.2 mmHg AI Pressure Half Time 383.4 ms LVOT Peak Velocity 141.9 cm/s LVOT Peak Gradient 8.1 mmHg AV Area Cont Eq pk 1.5 cm??? MV Peak Velocity 265.2 cm/s MV Peak Gradient 28.1 mmHg MV Mean Velocity 191.4 cm/s MV Mean Gradient 15.8 mmHg MV Velocity Time Integral 63.7 cm MV Area PHT 1.3 cm??? Mitral E Point Velocity 217.6 cm/s Mitral A Point Velocity 262.6 cm/s Mitral E to A Ratio 0.8 MV Deceleration Time 600.2 ms TR Peak Velocity 340.1 cm/s TR Peak Gradient 46.3 mmHg Right Ventricular Systolic Press 51.3 mmHg PV Peak Velocity 221.3 cm/s PV Peak Gradient 19.6 mmHg PV Mean Velocity 149.3 cm/s PV Mean Gradient 10.2 mmHg PV Velocity Time Integral 35.8 cm FINDINGS Left Ventricle Left ventricular ejection fraction is estimated at 70-75 %. Left ventricular cavity size normal. Moderately increased septal wall thickness. Moderately increased posterior wall thickness. No obvious regional wall motion abnormalities. Right Ventricle Normal right ventricular size. Moderate pulmonary hypertension. Right ventricular systolic pressure estimated at 51 mm hg. Right Atrium Normal right atrial size. Left Atrium Moderately increased left atrial volume. Mildly increased left atrial area. Mitral Valve Rheumatic mitral valve. Moderate mitral annular calcification. Severe mitral stenosis with mean gradient of 15 mmhg Aortic Valve Trileaflet aortic valve. Aortic valve sclerosis. Mild AOV stenosis with a peak gradient of 33 mmHg and a mean gradient of 15 mmHg. Moderate aortic regurgitation. Tricuspid Valve Structurally normal tricuspid valve. Mild tricuspid regurgitation. Pulmonic Valve Pulmonic valve not well visualized. Valvular pulmonic stenosis with mean gradient of 10 mmHg Pericardium No pericardial effusion. Aorta Normal size aortic root and proximal ascending aorta. CONCLUSIONS Hyperdynamic LV with an EF around 70% Mitral annular calcification with severe mitral stenosis and mean gradient exceeds 15 mmHg with a normal heart rate Aortic sclerosis with [id number] aortic stenosis and moderate aortic regurgitation Severe pulmonary hypertension with RVSP exceeding 50 mmHg Previewed by: Dr. Melvin Oviedo MD (Electronically Signed) Final Date: 29 June 2023 15:44
--- NOTE | 2023-06-29 15:49 | US ---
EXAMINATION TYPE: US kidneys/renal and bladder DATE OF EXAM: 06/29/2023 COMPARISON: NONE CLINICAL INDICATION: Female, 82 years old with history of leticia; LETICIA EXAM MEASUREMENTS: Right Kidney: 9.0 x 4.4 x 3.2 cm Left Kidney: 9.0 x 4.5 x 3.7 cm *Limitations due to overlying bowel gas and patient's limited mobility Right Kidney: no evidence of hydronephrosis Left Kidney: no evidence of hydronephrosis Bladder: Decompressed by Caldwell catheter and not well evaluated. There is no evidence for hydronephrosis at this point in time. No nephrolithiasis is seen. No emelyn s are identified. IMPRESSION: 1. No evidence of hydronephrosis. 2. Bladder decompressed by Caldwell catheter and not well evaluated.
[2023-06-29 20:32] LABS: Glucose,Whole Blood 237 mg/dL (70-110)
[2023-06-29 21:05] LABS: African American GFR (CKD) 43 (>60 ml/min/1.73 sqM); Anion Gap 3 mmol/L; Blood Urea Nitrogen 73 mg/dL (7-17); Calcium 7.1 mg/dL (8.4-10.2); Carbon Dioxide 34 mmol/L (22-30); Chloride 98 mmol/L (98-107); Glucose 220 mg/dL (74-99); Non-African American GFR(CKD) 37 (>60 ml/min/1.73 sqM); Potassium 4.8 mmol/L (3.5-5.1); Sodium 135 mmol/L (137-145)
[2023-06-29] MEDS: CEFEPIME 1 GM in SODIUM CHLORIDE 0.9% 50 ML IVPB SCH (21:25)
[2023-06-29] MEDS: INSULIN ASPART (NovoLOG) 100 UNIT/ML VIAL SQ SCH (21:26)
[2023-06-29] MEDS: NYSTATIN 100,000 UNIT/ML SUSP 500,000 UNIT/5 ML CUP PO SCH (21:26)
[2023-06-29] MEDS: AMIODARONE 200 MG TAB PO SCH (21:27)
[2023-06-29] MEDS: METOPROLOL TARTRATE 25 MG TAB PO SCH (21:27)
[2023-06-30] MEDS: VANCOMYCIN 750 MG in SODIUM CHLORIDE 0.9% 250 ML IVPB ONE (05:56)
[2023-06-30 07:40] LABS: Anisocytosis Slight; Basophils % (A) 0 %; Eosinophils # (A) 0.2 k/uL (0-0.7); Eosinophils % (A) 1 %; HCT 26.8 % (34.0-46.0); Hypochromasia Slight; Lymphocytes # (A) 0.3 k/uL (1.0-4.8); Lymphocytes % (A) 1 %; MCH 31.8 pg (25.0-35.0); MCV 99.2 fL (80.0-100.0); Macrocytosis Slight; Mean Platelet Volume 8.2; Monocytes # (A) 0.5 k/uL (0-1.0); Monocytes % (A) 2 %; Neutrophils # (A) 18.9 k/uL (1.3-7.7); Neutrophils % (A) 95 %; Platelet Count 210 k/uL (150-450); RDW 17.5 % (11.5-15.5); WBC 19.8 k/uL (3.8-10.6)
[2023-06-30 07:42] LABS: HGB 8.6 gm/dL (11.4-16.0)
--- NOTE | 2023-06-30 07:44 | XR ---
EXAMINATION TYPE: XR chest 1V DATE OF EXAM: 06/30/2023 COMPARISON: 06/29/2023 HISTORY: 82-year-old female hypoxia TECHNIQUE: Single frontal view of the chest is obtained. FINDINGS: Heart borderline in size. Hazy and patchy airspace opacity bilaterally similar to slightly worsened. No sizable pleural effusion. IMPRESSION: Diffuse hazy and patchy bilateral airspace disease similar to slightly worsened.
[2023-06-30 08:23] LABS: Glucose,Whole Blood 172 mg/dL (70-110)
[2023-06-30 08:26] LABS: ALT 242 U/L (4-34); AST 250 U/L (14-36); African American GFR (CKD) 49 (>60 ml/min/1.73 sqM); Alkaline Phosphatase 403 U/L (38-126); Anion Gap 3 mmol/L; Blood Urea Nitrogen 70 mg/dL (7-17); Calcium 6.8 mg/dL (8.4-10.2); Carbon Dioxide 32 mmol/L (22-30); Chloride 100 mmol/L (98-107); Glucose 149 mg/dL (74-99); Magnesium 2.7 mg/dL (1.6-2.3); Non-African American GFR(CKD) 43 (>60 ml/min/1.73 sqM); Phosphorus 3.6 mg/dL (2.5-4.5); Potassium 4.4 mmol/L (3.5-5.1); Sodium 135 mmol/L (137-145); Total Bilirubin 0.7 mg/dL (0.2-1.3); Total Protein 4.7 g/dL (6.3-8.2)
[2023-06-30] MEDS: FUROSEMIDE 10 MG/ML 4 ML VIAL IV STA (10:39)
--- NOTE | 2023-06-30 11:52 | P.PN ---
Subjective Patient is seen for follow-up for acute kidney injury. She was admitted to the hospital with mental status changes shortness of breath and hypoxia. Patient was also hypotensive. Currently maintained on gentle IV hydration. Maintain on antibiotics. Renal function has improved with creatinine down to 1.2 mg/dL. Chest x-ray shows bilateral airspace disease suggestive of CHF. Maintained on 6 L nasal cannula with O2 sats at 95%. Objective - Vital Signs Vital signs: Vital Signs Temp 98.8 F 06/30/23 06:00 Pulse 85 06/30/23 11:41 Resp 18 06/30/23 11:24 BP 91/47 06/30/23 11:24 Pulse Ox 95 06/30/23 11:24 FiO2 50 06/29/23 18:30 Intake & Output 06/29/23 06/30/23 06/30/23 18:59 06:59 18:59 Intake Total 500 Output Total 514 700 Balance -14 -700 Intake: Intake, IV Titration 500 Amount Dextrose 5%-0.45% NaCl 1, 500 000 ml @ 50 mls/hr IV . Q20H [facility] Rx#:[id number] Output: Urine 514 700 Other: Voiding Method Indwelling Catheter - Exam patient is awake, comfortable, in no acute distress Examination of the heart S1 and S2 Examination of the lungs bilateral breath sounds are heard Abdomen is soft nontender Examination of lower extremity shows no evidence of edema. Bruising noted on left ankle DISBURSING AGENT exam grossly intact with periods of confusion on and off - Labs CBC & Chem 7: 06/30/23 06:46 06/30/23 06:46 Labs: Abnormal Lab Results - Last 24 Hours (Table) 06/29/23 06/29/23 06/29/23 Range/Units 14:20 20:31 20:33 WBC (3.8-10.6) k/uL RBC (3.80-5.40) m/uL Hgb (11.4-16.0) gm/dL Hct (34.0-46.0) % RDW (11.5-15.5) % Neutrophils # (1.3-7.7) k/uL Lymphocytes # (1.0-4.8) k/uL Sodium 136 L 135 L (137-145) mmol/L Potassium 5.2 H (3.5-5.1) mmol/L Carbon Dioxide 32 H 34 H (22-30) mmol/L BUN 72 H 73 H (7-17) mg/dL Creatinine 1.28 H 1.35 H (0.52-1.04) mg/dL Glucose 224 H 220 H (74-99) mg/dL POC Glucose (mg/dL) 237 H (70-110) mg/dL Calcium 7.2 L 7.1 L (8.4-10.2) mg/dL Magnesium (1.6-2.3) mg/dL AST (14-36) U/L ALT (4-34) U/L Alkaline Phosphatase (38-126) U/L Total Protein (6.3-8.2) g/dL Albumin (3.5-5.0) g/dL 06/30/23 06/30/23 06/30/23 Range/Units 06:46 06:46 08:22 WBC 19.8 H (3.8-10.6) k/uL RBC 2.70 L (3.80-5.40) m/uL Hgb 8.6 L D (11.4-16.0) gm/dL Hct 26.8 L (34.0-46.0) % RDW 17.5 H (11.5-15.5) % Neutrophils # 18.9 H (1.3-7.7) k/uL Lymphocytes # 0.3 L (1.0-4.8) k/uL Sodium 135 L (137-145) mmol/L Potassium (3.5-5.1) mmol/L Carbon Dioxide 32 H (22-30) mmol/L BUN 70 H (7-17) mg/dL Creatinine 1.21 H (0.52-1.04) mg/dL Glucose 149 H (74-99) mg/dL POC Glucose (mg/dL) 172 H (70-110) mg/dL Calcium 6.8 L (8.4-10.2) mg/dL Magnesium 2.7 H (1.6-2.3) mg/dL AST 250 H (14-36) U/L ALT 242 H (4-34) U/L Alkaline Phosphatase 403 H (38-126) U/L Total Protein 4.7 L (6.3-8.2) g/dL Albumin 2.0 L (3.5-5.0) g/dL Assessment and Plan Assessment: 1. Acute kidney injury, ATN currently nonoliguric secondary to underlying infection and hypotension. Serum creatinine also elevated from Bactrim which was started as outpatient.UA shows WBC 17 1+ protein with WBC clumps and yeast. Ultrasound shows no evidence of obstructive uropathy. 2. Hyperkalemia associated with acute kidney injury and use of Bactrim 3. Pyuria rule out UTI 4. History of CHF, diastolic with recent echocardiogram on 05/28/2023 showing EF of 60-65% 5. Severe pulmonary hypertension 6. Severe mitral valve stenosis 7. Mental status changes likely related to underlying infection and hypotension Plan: DC IV fluids IV Lasix x 1 Continue with IV antibiotics Check urine culture. Repeat labs in a.m.
[2023-06-30 12:37] LABS: Glucose,Whole Blood 303 mg/dL (70-110)
--- NOTE | 2023-06-30 13:11 | P.PN ---
Subjective Progress Note Date: 06/30/23 patient is a 82-year-old lady with past medical history significant for co ngestive heart failure, atrial fibrillation with RVR,presented to the ER because of worsening shortness of breath. Patient was only recently discharged on 06/25 after being treated in the hospital for similar complaints.after discharge, patient was all right for 1 day but started noticing that she was getting more short of breath on exertion. Patient denied any chest pain. There was no complain of orthopnea or PND. There was no complain of swelling of feet. There was no complain of fever or chills. Patient oxygen requirements were also increasing so she was transferred back to the ER Initial lab work done in the ER showed WBC 28, hemoglobin 10.5, platelet count 332, INR 3.7, sodium 138, potassium 6.2, BUN 79, creatinine1.71, AST 378, ALT 350, troponin 0.247 EKG done in the ER showed heart rate of 81 , no ST segment elevation or depression seen, no T-wave inversions seen. Chest x-ray done in the ER showed cardiomegaly and moderate vascular congestion Patient admitted to internal medicine service 06/29. Patient seen and examined. Blood work done this morning showed WBC 19.8, hemoglobin 8.6, sodium 135, potassium 4.4, BUN 70, creatinine 1.21. Ox requirements have improved, currently on 6 L of oxygen. Patient is much more talkative compared to yesterday. Answering questions. REVIEW OF SYSTEMS: CONSTITUTIONAL: No fever, no malaise,. CARDIOVASCULAR: No chest pain, no palpitations, no syncope. PULMONARY: No shortness of breath, no cough, GASTROINTESTINAL: No diarrhea, no nausea, no vomiting, no abdominal pain. NEUROLOGICAL: No headaches, no weakness, PHYSICAL EXAMINATION: GENERAL: The patient is alert and oriented x3, not in any acute distress. Ill looking HEENT: Pupils are round and equally reacting to light. EOMI. No scleral icterus. No conjunctival pallor. Normocephalic, atraumatic. No pharyngeal erythema. No thyromegaly. CARDIOVASCULAR: S1 and S2 present. Murmur audible in the mitral area PULMONARY: Coarse breath sound bilaterally, expiratory rhonchi audible ABDOMEN: Soft, nontender, nondistended, normoactive bowel sounds. No palpable organomegaly. MUSCULOSKELETAL: No joint swelling or deformity. EXTREMITIES: No cyanosis, clubbing, or pedal edema. NEUROLOGICAL: Gross neurological examination did not reveal any focal deficits. SKIN: No rashes. Assessment and plan acute on chronic hypoxic respiratory failure Non-ST elevation MA Acute on chronic diastolic heart failure Hyperkalemia Acute kidney injury acute transaminitis Acute exacerbation of mild intermittent chronic bronchial asthma History of coronary artery disease with previous PCI/stent x3 History of hyperlipidemia History of hypertension Moderate to severe mitral calcification and moderate to severe mitral stenosis and mild aortic regurgitation and stenosis. Pulmonary hypertension WHO class II Rheumatoid arthritis History of hypothyroidism Lifelong non-smoker Monitor vital signs Monitor CBC Monitor CMP Continue telemetry monitoring continue oxygen supplementation Aggressive bronchopulmonary hygiene avoid nephrotoxic agents Continue breathing treatments DC fluids Strict I's and O's, daily weights, Lasix 40 mg every 12 continue IV cefepime and vancomycin cardiology following Nephrology following Pulmonary following Labs and medication were reviewed.. Continue same treatment. Continue with symptomatic treatment. Resume home medication. Monitor labs and vitals. DVT and GI prophylaxis. Further recommendations as per clinical course of the patient Dictation was produced using [employer] dictation software. please excuse any grammatical, word or spelling errors. Objective - Vital Signs Vital signs: Vital Signs Temp 98.8 F 06/30/23 06:00 Pulse 80 06/30/23 08:25 Resp 18 06/30/23 07:42 BP 93/40 06/30/23 07:42 Pulse Ox 92 L 06/30/23 08:14 FiO2 50 06/29/23 18:30 Intake & Output 06/29/23 06/30/23 06/30/23 18:59 06:59 18:59 Intake Total 500 Output Total 514 Balance -14 Intake: Intake, IV Titration 500 Amount Dextrose 5%-0.45% NaCl 1, 500 000 ml @ 50 mls/hr IV . Q20H [facility] Rx#:[id number] Output: Urine 514 Other: Voiding Method Indwelling Catheter - Labs CBC & Chem 7: 06/30/23 06:46 06/30/23 06:46 Labs: Abnormal Lab Results - Last 24 Hours (Table) 06/29/23 06/29/23 06/29/23 Range/Units 14:20 20:31 20:33 WBC (3.8-10.6) k/uL RBC (3.80-5.40) m/uL Hgb (11.4-16.0) gm/dL Hct (34.0-46.0) % RDW (11.5-15.5) % Neutrophils # (1.3-7.7) k/uL Lymphocytes # (1.0-4.8) k/uL Sodium 136 L 135 L (137-145) mmol/L Potassium 5.2 H (3.5-5.1) mmol/L Carbon Dioxide 32 H 34 H (22-30) mmol/L BUN 72 H 73 H (7-17) mg/dL Creatinine 1.28 H 1.35 H (0.52-1.04) mg/dL Glucose 224 H 220 H (74-99) mg/dL POC Glucose (mg/dL) 237 H (70-110) mg/dL Calcium 7.2 L 7.1 L (8.4-10.2) mg/dL Magnesium (1.6-2.3) mg/dL AST (14-36) U/L ALT (4-34) U/L Alkaline Phosphatase (38-126) U/L Total Protein (6.3-8.2) g/dL Albumin (3.5-5.0) g/dL 06/30/23 06/30/23 06/30/23 Range/Units 06:46 06:46 08:22 WBC 19.8 H (3.8-10.6) k/uL RBC 2.70 L (3.80-5.40) m/uL Hgb 8.6 L D (11.4-16.0) gm/dL Hct 26.8 L (34.0-46.0) % RDW 17.5 H (11.5-15.5) % Neutrophils # 18.9 H (1.3-7.7) k/uL Lymphocytes # 0.3 L (1.0-4.8) k/uL Sodium 135 L (137-145) mmol/L Potassium (3.5-5.1) mmol/L Carbon Dioxide 32 H (22-30) mmol/L BUN 70 H (7-17) mg/dL Creatinine 1.21 H (0.52-1.04) mg/dL Glucose 149 H (74-99) mg/dL POC Glucose (mg/dL) 172 H (70-110) mg/dL Calcium 6.8 L (8.4-10.2) mg/dL Magnesium 2.7 H (1.6-2.3) mg/dL AST 250 H (14-36) U/L ALT 242 H (4-34) U/L Alkaline Phosphatase 403 H (38-126) U/L Total Protein 4.7 L (6.3-8.2) g/dL Albumin 2.0 L (3.5-5.0) g/dL
--- NOTE | 2023-06-30 14:49 | P.PN ---
Subjective Progress Note Date: 06/30/23 This is an 82-year-old female, familiar to my service, patient was recently in the hospital with acute COVID-19 pneumonia, congestive heart failure, atrial fibrillation with RVR, possible underlying interstitial lung disease, patient was discharged on 06/26/2023, pulmonary service has seen this patient initially on 06/09/2023, at that time the patient was admitted with acute hypoxic respiratory failure, acute COVID-19 pneumonia, chronic bronchial asthma, and possible hospital-acquired pneumonia. In addition the patient had mild intermittent asthma, congestive heart failure, severe mitral calcification and moderate to severe mitral stenosis with preserved LV function and preserved ejection fraction. She also has history of rheumatoid arthritis, hypothyroidism, and lifelong non-smoker. We saw this patient last on 06/26/2023,, she was on 2 L nasal cannula, her labs were unremarkable, her sputum cultures were nondiagnostic, blood cultures were nondiagnostic, she had relatively normal renal profile, and she was at the time on warfarin, Symbicort, Singulair and albuterol. Patient was discharged to the [facility] on the [place]. Patient was discharged on amiodarone, Coumadin, prednisone 20 mg daily, Lopressor, and nystatin swish and swallow. Otherwise the patient was kept on her usual medications including Symbicort, Jardiance, levothyroxine, Singulair, Fosamax, ascorbic acid, atorvastatin, Lasix 40 mg p.o. daily, and Xanax. As well as albuterol. Patient was sent from the [facility] down to the ER today mostly because of low O2 saturation, and patient was noted to have some shortness of breath. Chest x-ray on this admission showed cardiomegaly and mild pulmonary vascular congestion, no clear-cut evidence of pneumonia. As a matter fact her chest x-ray shows significant improvement compared to her initial chest x-ray on her last admission. In addition to her shortness of breath, patient was noted to have abnormal labs with a potassium of 6.2, her BUN is 79 and creatinine 1.71. Patient was also noted to have elevated BNP level of 27,000 and troponin leak. ABG on 50% FiO2 showed a pO2 of 69 pCO2 48 pH of 7.54. Patient is now on 3 L nasal cannula, seems to be comfortable, not in distress. Seen by nephrology for her acute kidney injury, ATN, hyperkalemia with acute kidney injury and apparently the patient was on Bactrim and the recommendation by nephrology was to continue with IV fluids, IV antibiotics, and repeat labs in AM. Patient has a very poor urine output, I did recommend a fluid bolus of 500 cc of saline while in the ER, blood pressure is marginal. Considering her marginal low blood pressure, I am recommending that the patient goes to the ICU. Nephrology is addressing her abnormal renal profile and hyperkalemia The patient is seen today June 30, 2023 in follow-up in the emergency department. She is currently sitting up in the stretcher. Awake and alert in no acute distress. Doing quite a bit better today compared to yesterday. Tolerating a clear liquid breakfast. Maintaining O2 saturations in the upper 90s on 6 L/min per nasal cannula. She has been afebrile. Hemodynamically stable. X-ray reveals some diffuse hazy and patchy bilateral airspace disease. Blood cultures are pending. White count 19.8. Hemoglobin 8.6. Platelets 210. Sodium 135. Potassium 4.4. Bicarb 32. BUN 70. Creatinine 1.21. Glucose 149. AST 250. ALT 242. Alk phos 403. Echocardiogram reveals a hyperdynamic LV with a EF around 70%. There is severe mitral stenosis and moderate aortic stenosis. Severe pulmonary hypertension with an RVSP exceeding 50 mmHg. She is continued on DuoNeb ventilations, IV diuretics, antibiotics in the form of vancomycin and cefepime. Procalcitonin pending. Objective - Vital Signs Vital signs: Vital Signs Temp 98.8 F 06/30/23 06:00 Pulse 98 06/30/23 14:20 Resp 20 06/30/23 14:20 BP 101/55 06/30/23 14:20 Pulse Ox 97 06/30/23 14:20 FiO2 50 06/29/23 18:30 Intake & Output 06/29/23 06/30/23 06/30/23 18:59 06:59 18:59 Intake Total 500 Output Total 514 700 Balance -14 -700 Intake: Intake, IV Titration 500 Amount Dextrose 5%-0.45% NaCl 1, 500 000 ml @ 50 mls/hr IV . Q20H [facility] Rx#:[id number] Output: Urine 514 700 Other: Voiding Method Indwelling Catheter - Exam GENERAL EXAM: Alert, weak, frail 82-year-old female, on 6 L nasal cannula active, in no apparent distress. HEAD: Normocephalic. EYES: Normal reaction of pupils, equal size. NOSE: Clear with pink turbinates. THROAT: No erythema or exudates. NECK: No masses, no JVD. CHEST: No chest wall deformity. LUNGS: Equal air entry with crackles in the bilateral bases. CVS: S1 and S2 normal with no audible murmur, regular rhythm. ABDOMEN: No hepatosplenomegaly, normal bowel sounds, no guarding or rigidity. SPINE: No scoliosis or deformity SKIN: No rashes CENTRAL NERVOUS SYSTEM: No focal deficits, tone is normal in all 4 extremities. EXTREMITIES: There is no peripheral edema. No clubbing, no cyanosis. Peripheral pulses are intact. - Labs CBC & Chem 7: 06/30/23 06:46 06/30/23 06:46 Labs: Abnormal Lab Results - Last 24 Hours (Table) 06/29/23 06/29/23 06/29/23 Range/Units 14:20 20:31 20:33 WBC (3.8-10.6) k/uL RBC (3.80-5.40) m/uL Hgb (11.4-16.0) gm/dL Hct (34.0-46.0) % RDW (11.5-15.5) % Neutrophils # (1.3-7.7) k/uL Lymphocytes # (1.0-4.8) k/uL Sodium 136 L 135 L (137-145) mmol/L Potassium 5.2 H (3.5-5.1) mmol/L Carbon Dioxide 32 H 34 H (22-30) mmol/L BUN 72 H 73 H (7-17) mg/dL Creatinine 1.28 H 1.35 H (0.52-1.04) mg/dL Glucose 224 H 220 H (74-99) mg/dL POC Glucose (mg/dL) 237 H (70-110) mg/dL Calcium 7.2 L 7.1 L (8.4-10.2) mg/dL Magnesium (1.6-2.3) mg/dL AST (14-36) U/L ALT (4-34) U/L Alkaline Phosphatase (38-126) U/L Total Protein (6.3-8.2) g/dL Albumin (3.5-5.0) g/dL 06/30/23 06/30/23 06/30/23 Range/Units 06:46 06:46 08:22 WBC 19.8 H (3.8-10.6) k/uL RBC 2.70 L (3.80-5.40) m/uL Hgb 8.6 L D (11.4-16.0) gm/dL Hct 26.8 L (34.0-46.0) % RDW 17.5 H (11.5-15.5) % Neutrophils # 18.9 H (1.3-7.7) k/uL Lymphocytes # 0.3 L (1.0-4.8) k/uL Sodium 135 L (137-145) mmol/L Potassium (3.5-5.1) mmol/L Carbon Dioxide 32 H (22-30) mmol/L BUN 70 H (7-17) mg/dL Creatinine 1.21 H (0.52-1.04) mg/dL Glucose 149 H (74-99) mg/dL POC Glucose (mg/dL) 172 H (70-110) mg/dL Calcium 6.8 L (8.4-10.2) mg/dL Magnesium 2.7 H (1.6-2.3) mg/dL AST 250 H (14-36) U/L ALT 242 H (4-34) U/L Alkaline Phosphatase 403 H (38-126) U/L Total Protein 4.7 L (6.3-8.2) g/dL Albumin 2.0 L (3.5-5.0) g/dL 06/30/23 Range/Units 12:36 WBC (3.8-10.6) k/uL RBC (3.80-5.40) m/uL Hgb (11.4-16.0) gm/dL Hct (34.0-46.0) % RDW (11.5-15.5) % Neutrophils # (1.3-7.7) k/uL Lymphocytes # (1.0-4.8) k/uL Sodium (137-145) mmol/L Potassium (3.5-5.1) mmol/L Carbon Dioxide (22-30) mmol/L BUN (7-17) mg/dL Creatinine (0.52-1.04) mg/dL Glucose (74-99) mg/dL POC Glucose (mg/dL) 303 H (70-110) mg/dL Calcium (8.4-10.2) mg/dL Magnesium (1.6-2.3) mg/dL AST (14-36) U/L ALT (4-34) U/L Alkaline Phosphatase (38-126) U/L Total Protein (6.3-8.2) g/dL Albumin (3.5-5.0) g/dL Microbiology - Last 24 Hours (Table) 06/29/23 02:35 Blood Culture - Preliminary Blood 06/29/23 02:20 Blood Culture - Preliminary Blood Assessment and Plan Assessment: Acute on chronic hypoxic respiratory failure, multifactorial Acute on chronic congestive heart failure with preserved ejection fraction hyperdynamic LV with an ejection fraction of 70% Severe mitral stenosis Mild to moderate aortic stenosis Severe pulmonary hypertension with RVSP exceeding 50 mmHg History of COVID-19 pneumonia and healthcare acquired pneumonia, patient was treated with remdesivir on the last admission History of rheumatoid arthritis and possibly some component of interstitial lung disease Severe mitral valve disease with severe mitral stenosis, and mild aortic regurgitation and stenosis. But the patient has relatively maintained ejection fraction. History of rheumatoid arthritis Hypothyroidism Lifelong non-smoker Mild intermittent asthma Acute kidney injury/ATN Acute hyperkalemia secondary to acute kidney injury, patient had recent treatment with Bactrim for a UTI. Pyuria, UTI, possible sepsis from urinary tract infection Plan: The patient was seen and evaluated Chest x-ray, echocardiogram, labs and medications reviewed Currently stable and on 6 L nasal cannula Titrate the FiO2 as tolerated Continued on antibiotics Procalcitonin pending Continued on IV diuretics The patient is requesting a DNR/DNI CODE STATUS Improved and no need for ICU admission Transfer to the regular medical floor We will continue to follow I have personally seen and examined the patient, performed the documentation and the assessment and plan as written. Number of minutes spent on the visit: 10.
--- NOTE | 2023-06-30 15:37 | P.PN ---
Subjective Progress Note Date: 06/30/23 Principal diagnosis: Valvular heart disease The patient is an 82-year-old female patient who is known to our service from before with a past medical history significant for coronary artery disease with prior stenting of the left anterior descending artery as well as heart failure with preserved ejection fraction and also history of valvular heart disease and known severe mitral stenosis as well as severe pulmonary hypertension and also history of chronic obstructive pulmonary disease as well as multiple comorbid conditions. The patient is also known to have paroxysmal atrial fibrillation has been on oral anticoagulation the patient is a resident at [facility]. This time she was brought back to the emergency department because it was noted that she was hypoxic over there. The patient is extremely poor historian but she stated that she has been a bit more short of breath than normal. No pain in the chest and no dizziness or lightheadedness and no feeling of heart racing or fluttering. No change in mental status. When she was seen and evaluated though she was slightly lethargic. She underwent further investigation including an EKG and that showed sinus mechanism with diffuse nonspecific ST and T wave abnormalities. She underwent cardioversion recently. Troponin came in to be mildly abnormal but appears to be flat across the board. The chest x-ray showed finding consistent with heart failure. The NT proBNP came in to be severely elevated. The blood pressure has been marginal. The patient just was seen by our service back in June 2023 when she was admitted with atrial fibrillation with rapid ventricular response and underwent an echo which revealed preserved LV systolic function with evidence of severe mitral stenosis and severe pulmonary hypertension. Physical examination reveals slightly lethargic patient with regular rate and rhythm and systolic murmur and diminished breathing sounds bilaterally and bilateral lower extremities edema noted. Please note that also she underwent a urine analysis and that showed possible UTI/sepsis June 30, 2023 The patient was seen and evaluated. She continues to be in the emergency room at this point waiting for bed on the floor. She is feeling slightly better. She stated that the shortness of breath is slightly better. No symptoms of any pain in the chest. Her chest x-ray appears to be worse than before. She continues to be on Lasix IV at 40 mg twice daily. She is also on antibiotic for possible underlying pneumonia. Her hemoglobin has dropped. The examination revealed distant heart sounds with a systolic murmur and diminished breathing sounds bilaterally as well as bilateral rhonchi and mild bilateral lower extremities edema. 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 Marginally low blood pressure Chronic kidney disease Anemia Paroxysmal atrial fibrillation UTI/sepsis Plan Continue the current medical regimen Consider decreasing the dose of Lasix if the pressure remains marginal Continue antibiotic for possible underlying pneumonia and UTI Continue monitoring the hemoglobin The patient need to be evaluated for the severe mitral stenosis probably as an outpatient Objective - Vital Signs Vital signs: Vital Signs Temp 98.8 F 06/30/23 06:00 Pulse 98 06/30/23 14:20 Resp 20 06/30/23 14:20 BP 101/55 06/30/23 14:20 Pulse Ox 97 06/30/23 14:20 FiO2 50 06/29/23 18:30 Intake & Output 06/29/23 06/30/23 06/30/23 18:59 06:59 18:59 Intake Total 500 Output Total 514 700 Balance -14 -700 Intake: Intake, IV Titration 500 Amount Dextrose 5%-0.45% NaCl 1, 500 000 ml @ 50 mls/hr IV . Q20H [facility] Rx#:[id number] Output: Urine 514 700 Other: Voiding Method Indwelling Catheter - Labs CBC & Chem 7: 06/30/23 06:46 06/30/23 06:46 Labs: Abnormal Lab Results - Last 24 Hours (Table) 06/29/23 06/29/23 06/30/23 Range/Units 20:31 20:33 06:46 WBC 19.8 H (3.8-10.6) k/uL RBC 2.70 L (3.80-5.40) m/uL Hgb 8.6 L D (11.4-16.0) gm/dL Hct 26.8 L (34.0-46.0) % RDW 17.5 H (11.5-15.5) % Neutrophils # 18.9 H (1.3-7.7) k/uL Lymphocytes # 0.3 L (1.0-4.8) k/uL Sodium 135 L (137-145) mmol/L Carbon Dioxide 34 H (22-30) mmol/L BUN 73 H (7-17) mg/dL Creatinine 1.35 H (0.52-1.04) mg/dL Glucose 220 H (74-99) mg/dL POC Glucose (mg/dL) 237 H (70-110) mg/dL Calcium 7.1 L (8.4-10.2) mg/dL Magnesium (1.6-2.3) mg/dL AST (14-36) U/L ALT (4-34) U/L Alkaline Phosphatase (38-126) U/L Total Protein (6.3-8.2) g/dL Albumin (3.5-5.0) g/dL 06/30/23 06/30/23 06/30/23 Range/Units 06:46 08:22 12:36 WBC (3.8-10.6) k/uL RBC (3.80-5.40) m/uL Hgb (11.4-16.0) gm/dL Hct (34.0-46.0) % RDW (11.5-15.5) % Neutrophils # (1.3-7.7) k/uL Lymphocytes # (1.0-4.8) k/uL Sodium 135 L (137-145) mmol/L Carbon Dioxide 32 H (22-30) mmol/L BUN 70 H (7-17) mg/dL Creatinine 1.21 H (0.52-1.04) mg/dL Glucose 149 H (74-99) mg/dL POC Glucose (mg/dL) 172 H 303 H (70-110) mg/dL Calcium 6.8 L (8.4-10.2) mg/dL Magnesium 2.7 H (1.6-2.3) mg/dL AST 250 H (14-36) U/L ALT 242 H (4-34) U/L Alkaline Phosphatase 403 H (38-126) U/L Total Protein 4.7 L (6.3-8.2) g/dL Albumin 2.0 L (3.5-5.0) g/dL Microbiology - Last 24 Hours (Table) 06/29/23 02:35 Blood Culture - Preliminary Blood 06/29/23 02:20 Blood Culture - Preliminary Blood
[2023-06-30 17:00] LABS: Glucose,Whole Blood 258 mg/dL (70-110)
[2023-06-30 21:43] LABS: Glucose,Whole Blood 198 mg/dL (70-110)
[2023-06-30] MEDS: FUROSEMIDE 10 MG/ML 4 ML VIAL IV SCH (21:43)
[2023-07-01 06:39] LABS: African American GFR (CKD) 51 (>60 ml/min/1.73 sqM); Non-African American GFR(CKD) 44 (>60 ml/min/1.73 sqM)
[2023-07-01 06:41] LABS: Glucose,Whole Blood 121 mg/dL (70-110)
[2023-07-01 06:44] LABS: Vancomycin,Random 10.2 ug/mL
--- NOTE | 2023-07-01 10:46 | P.PN ---
Subjective Patient is seen in follow-up for acute kidney injury. Renal function improving. Oral intake good. Nonoliguric. Denies chest pain or shortness of breath. Vital signs are stable. General: No acute distress. HEENT: Head exam is unremarkable. LUNGS: No audible rhonchi or wheezes. HEART: Rate and Rhythm are regular. ABDOMEN: Nontender. EXTREMITITES: No edema. Objective - Vital Signs Vital signs: Vital Signs Temp 97.0 F L 07/01/23 07:32 Pulse 76 07/01/23 08:38 Resp 20 07/01/23 07:32 BP 92/47 07/01/23 07:32 Pulse Ox 98 07/01/23 08:26 FiO2 50 06/29/23 18:30 Intake & Output 06/30/23 07/01/23 07/01/23 18:59 06:59 18:59 Output Total 1275 350 Balance -1275 -350 Weight 43.998 kg 46.7 kg Output: Urine 1275 350 Other: Voiding Method Indwelling Catheter Indwelling Catheter # Bowel Movements 1 2 1 - Labs CBC & Chem 7: 06/30/23 06:46 07/01/23 05:41 Labs: Abnormal Lab Results - Last 24 Hours (Table) 06/30/23 06/30/23 06/30/23 Range/Units 12:36 16:56 21:39 Creatinine (0.52-1.04) mg/dL POC Glucose (mg/dL) 303 H 258 H (70-110) mg/dL Procalcitonin 1.16 H (0.02-0.09) ng/mL 06/30/23 07/01/23 07/01/23 Range/Units 21:41 05:41 06:38 Creatinine 1.18 H (0.52-1.04) mg/dL POC Glucose (mg/dL) 198 H 121 H (70-110) mg/dL Procalcitonin (0.02-0.09) ng/mL Microbiology - Last 24 Hours (Table) 06/29/23 02:35 Blood Culture - Preliminary Blood 06/29/23 02:20 Blood Culture - Preliminary Blood Assessment and Plan Plan: Assessment: 1. Acute kidney injury secondary to ATN secondary to severe sepsis. Was also on Bactrim prior to admission. No hydronephrosis noted on kidney ultrasound. Creatinine 1.7 on admission and down to 1.18 today. 2. Chronic diastolic CHF with severe pulmonary hypertension, mild to moderate aortic stenosis, moderate aortic regurgitation, severe mitral stenosis. 3. Hyperkalemia secondary to acute kidney injury on Bactrim. Improved. 4. Mild volume overload. 5. Anemia. Will trend deficiency. Plan: Maintain oral Lasix. Encouraged oral intake. Check iron studies. Avoid nephrotoxins. Continue to monitor renal function and urine output.
--- NOTE | 2023-07-01 11:09 | P.PN ---
Subjective HISTORY OF PRESENT ILLNESS: The patient is an 82-year-old female patient who is known to our service from before with a past medical history significant for coronary artery disease with prior stenting of the left anterior descending artery as well as heart failure with preserved ejection fraction and also history of valvular heart disease and known severe mitral stenosis as well as severe pulmonary hypertension and also history of chronic obstructive pulmonary disease as well as multiple comorbid conditions. The patient is also known to have paroxysmal atrial fibrillation has been on oral anticoagulation the patient is a resident at [facility]. This time she was brought back to the emergency department because it was noted that she was hypoxic over there. The patient is extremely poor historian but she stated that she has been a bit more short of breath than normal. No pain in the chest and no dizziness or lightheadedness and no feeling of heart racing or fluttering. No change in mental status. When she was seen and evaluated though she was slightly lethargic. She underwent further investigation including an EKG and that showed sinus mechanism with diffuse nonspecific ST and T wave abnormalities. She underwent cardioversion recently. Troponin came in to be mildly abnormal but appears to be flat across the board. The chest x-ray showed finding consistent with heart failure. The NT proBNP came in to be severely elevated. The blood pressure has been marginal. The patient just was seen by our service back in June 2023 when she was admitted with atrial fibrillation with rapid ventricular response and underwent an echo which revealed preserved LV systolic function with evidence of severe mitral st enosis and severe pulmonary hypertension. Physical examination reveals slightly lethargic patient with regular rate and rhythm and systolic murmur and diminished breathing sounds bilaterally and bilateral lower extremities edema noted. Please note that also she underwent a urine analysis and that showed possible UTI/sepsis June 30, 2023 The patient was seen and evaluated. She continues to be in the emergency room at this point waiting for bed on the floor. She is feeling slightly better. She stated that the shortness of breath is slightly better. No symptoms of any pain in the chest. Her chest x-ray appears to be worse than before. She continues to be on Lasix IV at 40 mg twice daily. She is also on antibiotic for possible underlying pneumonia. Her hemoglobin has dropped. The examination revealed distant heart sounds with a systolic murmur and diminished breathing sounds bilaterally as well as bilateral rhonchi and mild bilateral lower extremities edema. July 01, 2023 Patient examined this morning at bedside. Patient denies chest pain or pressure. She denies shortness of breath. Vital signs are stable. Telemetry reveals sinus mechanism. PHYSICAL EXAM: VITAL SIGNS: Reviewed. GENERAL: Well-developed in no acute distress. NECK: Supple. No JVD or thyromegaly LUNGS: Respirations even and unlabored. Lungs with rhonchi bilaterally HEART: Regular rate and rhythm. S1 and S2 heard. Systolic murmur noted. EXTREMITIES: Normal range of motion. No clubbing or cyanosis. Peripheral pulses intact. 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 Recommend decreasing to 100 mg daily upon discharge. Discontinue IV Lasix. Begin oral Lasix 40 mg daily Continue additional cardiac medications Patient is currently stable from a cardiac standpoint with no further inpatient recommendations We will sign off. Please reconsult if needed. Nurse practitioner note has been reviewed by physician. Signing provider agrees with the documented findings, assessment, and plan of care documented by [employer] as a scribe. Objective - Vital Signs Vital signs: Vital Signs Temp 97.0 F L 07/01/23 07:32 Pulse 76 07/01/23 08:38 Resp 20 07/01/23 07:32 BP 92/47 07/01/23 07:32 Pulse Ox 98 07/01/23 08:26 FiO2 50 06/29/23 18:30 Intake & Output 06/30/23 07/01/23 07/01/23 18:59 06:59 18:59 Output Total 1275 350 Balance -1275 -350 Weight 43.998 kg 46.7 kg Output: Urine 1275 350 Other: Voiding Method Indwelling Catheter Indwelling Catheter # Bowel Movements 1 2 1 - Labs CBC & Chem 7: 06/30/23 06:46 07/01/23 05:41 Labs: Abnormal Lab Results - Last 24 Hours (Table) 06/30/23 06/30/23 06/30/23 Range/Units 12:36 16:56 21:39 Creatinine (0.52-1.04) mg/dL POC Glucose (mg/dL) 303 H 258 H (70-110) mg/dL Procalcitonin 1.16 H (0.02-0.09) ng/mL 06/30/23 07/01/23 07/01/23 Range/Units 21:41 05:41 06:38 Creatinine 1.18 H (0.52-1.04) mg/dL POC Glucose (mg/dL) 198 H 121 H (70-110) mg/dL Procalcitonin (0.02-0.09) ng/mL Microbiology - Last 24 Hours (Table) 06/29/23 02:35 Blood Culture - Preliminary Blood 06/29/23 02:20 Blood Culture - Preliminary Blood
[2023-07-01 11:39] LABS: Glucose,Whole Blood 103 mg/dL (70-110)
[2023-07-01] MEDS: VANCOMYCIN 750 MG in SODIUM CHLORIDE 0.9% 250 ML IVPB SCH ×2 (12:16→12:28)
[2023-07-01 13:24] LABS: Prothrombin Time 63.1 sec (10.0-12.5)
[2023-07-01 13:43] LABS: INR 6.4 (<1.2)
--- NOTE | 2023-07-01 14:06 | P.CONS ---
History of Present Illness - Reason for Consult Consult date: 07/01/23 Rehab Needs - Chief Complaint SOB, weakness - History of Present Illness PMR Consult Mrs. Grande is a pleasant, right handed, woman who lives with her in a bilevel home. There is 1 step in then 7-8 steps to each level. Prior to initial hospitalization, she was independent with mobility and ADLS, and driving, though her son notes she's been bedridden for the last few weeks. She has 3 supportive adult children. She has a past medical history significant for coronary artery disease with prior stenting, known severe mitral stenosis as well as severe pulmonary hypertension and also history of chronic obstructive pulmonary disease. She was admitted last Saturday with SOB, low PSOX from [facility], where she was after her recent hospitalization. Back in early June, she was admitted with Afib and RVR s/p cardioversion, as well as an UTI per her son. After being stabilized, she went to [facility] for REVA. Per Cardiology, she had an EKG and that showed sinus mechanism with diffuse nonspecific ST and T wave abnormalities. Troponin came in to be mildly abnormal but appears to be flat across the board. The chest x-ray showed finding consistent with heart failure. The NT proBNP came in to be severely elevated. Back in June she underwent an echo which revealed preserved LV systolic function with evidence of severe mitral stenosis and severe pulmonary hypertension. Seen by nephrology for her acute kidney injury, ATN, hyperkalemia with acute kidney injury. X-ray reveals some diffuse hazy and patchy bilateral airspace disease. Blood cultures are pending. White count 19.8. Hemoglobin 8.6. Platelets 210. Sodium 135. Potassium 4.4. Bicarb 32. BUN 70. Creatinine 1.21. Glucose 149. AST 250. ALT 242. Alk phos 403. Consulted today for Rehab needs. Therapies are pending. She is not on home O2. Currently, at rest, she denies SOB. She is having difficulties swallowing and told some concern for aspiration, and SL is to see her. + cough, stomach cramps, sore throat, numbness if hands and feet, pain "in bottom" from sitting too long. Denies CP, palpitaitions, SHUKLA, or other pain complaints. Review of Systems + per above, o/w all systems reviewed negative. Past Medical History Past Medical History: Heart Failure, Hyperlipidemia, Hypertension, Mitral Valve Prolapse (MVP), Rheumatoid Arthritis (RA), Thyroid Disorder Additional Past Medical History / Comment(s): HAD A PNE VACCINE AFTER AGE 67 BUT NOT SURE OF DATE,OFFICE CLOSED AT TIME OF THIS ADMIT. Last Myocardial Infarction Date:: History of Any Multi-Drug Resistant Organisms: None Reported Past Surgical History: Section, Orthopedic Surgery Additional Past Surgical History / Comment(s): total right knee replacement Past Anesthesia/Blood Transfusion Reactions: No Reported Reaction Additional Past Anesthesia/Blood Transfusion Reaction / Comm: clausterphobia Smoking Status: Never smoker - Past Family History Father Additional Family Medical History / Comment(s): smoker-had problems related to that Mother Additional Family Medical History / Comment(s): smoker-problems related to that Medications and Allergies Home Medications Medication Instructions Recorded Confirmed Type Budesonide-Formot 160-4.5 Mcg 2 puff INHALATION RT-BID #1 inhaler 04/06/16 06/29/23 Rx [Symbicort 160-4.5 Mcg Inhaler] Alendronate Sodium [Fosamax] 70 mg PO MO@0900 08/09/21 06/29/23 History Cholecalciferol [Vitamin D3 (25 50 mcg PO DAILY 08/09/21 06/29/23 History Mcg = 1000 Iu)] Levothyroxine Sodium [Synthroid] 112 mcg PO MOTUWETHFR@00 08/09/21 06/29/23 History Montelukast [Singulair] 10 mg PO HS 08/09/21 06/29/23 History Acetaminophen [Tylenol Arthritis] 650 mg PO Q8HR PRN 03/19/22 06/29/23 History Empagliflozin [Jardiance] 10 mg PO DAILY 03/19/22 06/29/23 History Levothyroxine Sodium [Synthroid] 56 mcg PO SUSA@00 03/19/22 06/29/23 History Aspirin 81 mg PO DAILY@59905/26/23 06/29/23 History Atorvastatin [Lipitor] 80 mg PO HS 05/26/23 06/29/23 History Calcium Carbonate [Calcium] 600 mg PO DAILY 05/26/23 06/29/23 History Furosemide [Lasix] 40 mg PO DAILY@0600 05/26/23 06/29/23 History Albuterol Inhaler [Ventolin Hfa 2 puff INHALATION RT-QID PRN #1 05/31/23 06/29/23 Rx Inhaler] each ALPRAZolam [Xanax] 0.25 mg PO Q8HR PRN 3 Days #9 tab 06/26/23 06/29/23 Rx Amiodarone [Cordarone] 400 mg PO BID tab 06/26/23 06/29/23 Rx Benzonatate [Tessalon Perles] 200 mg PO TID PRN cap 06/26/23 06/29/23 Rx Nystatin 100,000 Unit/ml Susp 5 ml PO QID 7 Days #140 ml 06/26/23 06/29/23 Rx [Mycostatin Oral Susp] Ascorbic Acid [Vitamin C] 1,000 mg PO DAILY 06/29/23 06/29/23 History INSULIN ASPART (NovoLOG) [NovoLOG See Protocol SQ ACHS 06/29/23 06/29/23 History (formulary)] Magnesium Oxide [Mag-Ox] 400 mg PO DAILY 06/29/23 06/29/23 History Metoprolol Tartrate [Lopressor] 50 mg PO Q12H 06/29/23 06/29/23 History Multivitamins, Thera [Multivitamin 1 tab PO DAILY 06/29/23 06/29/23 History (formulary)] Omeprazole Magnesium [PriLOSEC OTC] 20 mg PO HS 06/29/23 06/29/23 History Sulfamethox-Tmp 800-160Mg [Bactrim 1 tab PO BID 06/29/23 06/29/23 History DS 800-160 mg] Warfarin [Coumadin] 0.5 mg PO DAILY@1700 06/29/23 06/29/23 History Zinc Sulfate [Orazinc] 220 mg PO DAILY 06/29/23 06/29/23 History predniSONE See Taper PO DIRECTED 06/29/23 06/29/23 History Allergies Allergy/AdvReac Type Severity Reaction Status Date / Time clarithromycin [From Biaxin] Allergy Unknown Verified 06/29/23 08:45 gemifloxacin [From Factive] Allergy Unknown Verified 06/29/23 08:45 prednisone Allergy Unknown Verified 06/29/23 08:45 amoxicillin [From Augmentin] AdvReac Nausea & Verified 06/29/23 08:45 Vomiting & Diarrhea clavulanic acid AdvReac Nausea & Verified 06/29/23 08:45 [From Augmentin] Vomiting & Diarrhea Physical Exam Vitals: Vital Signs Temp Pulse Pulse Resp BP BP Pulse Ox 07/01/23 11:22 64 07/01/23 08:38 76 07/01/23 08:26 68 98 07/01/23 07:32 97.0 F L 60 20 92/47 96 07/01/23 02:30 97.4 F L 86 16 94/56 100 06/30/23 22:47 85 96/56 100 06/30/23 21:40 96 06/30/23 21:32 95 06/30/23 19:40 98.3 F 85 16 106/62 100 06/30/23 16:27 96 06/30/23 16:07 96 06/30/23 14:55 97.9 F 87 18 97/61 98 06/30/23 14:20 98 20 101/55 97 Intake and Output 06/30/23 07/01/23 07/01/23 22:59 06:59 14:59 Output Total 575 350 Balance -575 -350 Output: Urine 575 350 Other: Voiding Method Indwelling Catheter Indwelling Catheter # Bowel Movements 1 2 1 Weight 43.998 kg 46.7 kg Gen: NAD, alert, pleasant, appears tired HEENT: PERRLA, EOMI CV: regular rate Lungs: non-labored respirations. On 6 L O2 Abd: soft nt nd + orellana Neuromuscular: A&Ox4, CN 2-12 grossly intact. Speech fluent, follows 3 step commands. MMT ~4/5 bilateral UE, 1-2/5 bilateral LE Sensation light touch decreased bilateral hands and feet. Ext: trace pedal edema, no calf TTP Skin: ecchymosis UE/LE. Results CBC & Chem 7: 06/30/23 06:46 07/01/23 05:41 Labs: Abnormal Lab Results - Last 24 Hours (Table) 06/30/23 06/30/23 06/30/23 Range/Units 16:56 21:39 21:41 Creatinine (0.52-1.04) mg/dL POC Glucose (mg/dL) 258 H 198 H (70-110) mg/dL Procalcitonin 1.16 H (0.02-0.09) ng/mL 07/01/23 07/01/23 Range/Units 05:41 06:38 Creatinine 1.18 H (0.52-1.04) mg/dL POC Glucose (mg/dL) 121 H (70-110) mg/dL Procalcitonin (0.02-0.09) ng/mL Microbiology - Last 24 Hours (Table) 06/29/23 02:35 Blood Culture - Preliminary Blood 06/29/23 02:20 Blood Culture - Preliminary Blood Assessment and Plan Assessment: # Decline in function/gait impairment # Swallow difficulties - PT/OT/Sl pending # Acute on chronic hypoxic respiratory failure, multifactorial # Acute on chronic congestive heart failure with preserved ejection fraction hyperdynamic LV with an ejection fraction of 70% # Severe mitral stenosis # Mild to moderate aortic stenosis # Severe pulmonary hypertension with RVSP exceeding 50 mmHg - on 6 L O2 ( would need to be on 5L or less for IPR to participate fully) # History of COVID-19 pneumonia and healthcare acquired pneumonia, patient was treated with remdesivir on the last admission # History of rheumatoid arthritis # Hypothyroidism # Acute kidney injury/ATN # Acute hyperkalemia secondary to acute kidney injury, patient had recent treatment with Bactrim for a UTI. # Pyuria, UTI, possible sepsis from urinary tract infection Recommendations: - per your medical management - continue PT/OT/SL - evals pending If able to participate in 3 hours of therapy a day as improves medically, could be appropriate for IPR. HOWEVER, at this time appears too weak to be able to fully participate, so more appropriate for REVA. As improves medically and able to work with therapies, will continue to reassess. Thank you for this consult and the opportunity to participate in the care of your pleasant patient.
--- NOTE | 2023-07-01 14:45 | P.PN ---
Subjective Progress Note Date: 07/01/23 This is an 82-year-old female, familiar to my service, patient was recently in the hospital with acute COVID-19 pneumonia, congestive heart failure, atrial fibrillation with RVR, possible underlying interstitial lung disease, patient was discharged on 06/26/2023, pulmonary service has seen this patient initially on 06/09/2023, at that time the patient was admitted with acute hypoxic respiratory failure, acute COVID-19 pneumonia, chronic bronchial asthma, and possible hospital-acquired pneumonia. In addition the patient had mild intermittent asthma, congestive heart failure, severe mitral calcification and moderate to severe mitral stenosis with preserved LV function and preserved ejection fraction. She also has history of rheumatoid arthritis, hypothyroidism, and lifelong non-smoker. We saw this patient last on 06/26/2023,, she was on 2 L nasal cannula, her labs were unremarkable, her sputum cultures were nondiagnostic, blood cultures were nondiagnostic, she had relatively normal renal profile, and she was at the time on warfarin, Symbicort, Singulair and albuterol. Patient was discharged to the [facility] [place]. Patient was discharged on amiodarone, Coumadin, prednisone 20 mg daily, Lopressor, and nystatin swish and swallow. Otherwise the patient was kept on her usual medications including Symbicort, Jardiance, levothyroxine, Singulair, Fosamax, ascorbic acid, atorvastatin, Lasix 40 mg p.o. daily, and Xanax. As well as albuterol. Patient was sent from the [facility] down to the ER today mostly because of low O2 saturation, and patient was noted to have some shortness of breath. Chest x-ray on this admission showed cardiomegaly and mild pulmonary vascular congestion, no clear-cut evidence of pneumonia. As a matter fact her chest x-ray shows significant improvement compared to her initial chest x-ray on her last admission. In addition to her shortness of breath, patient was noted to have abnormal labs with a potassium of 6.2, her BUN is 79 and creatinine 1.71. Patient was also noted to have elevated BNP level of 27,000 and troponin leak. ABG on 50% FiO2 showed a pO2 of 69 pCO2 48 pH of 7.54. Patient is now on 3 L nasal cannula, seems to be comfortable, not in distress. Seen by nephrology for her acute kidney injury, ATN, hyperkalemia with acute kidney injury and apparently the patient was on Bactrim and the recommendation by nephrology was to continue with IV fluids, IV antibiotics, and repeat labs in AM. Patient has a very poor urine output, I did recommend a fluid bolus of 500 cc of saline while in the ER, blood pressure is marginal. Considering her marginal low blood pressure, I am recommending that the patient goes to the ICU. Nephrology is addressing her abnormal renal profile and hyperkalemia The patient is seen today June 30, 2023 in follow-up in the emergency department. She is currently sitting up in the stretcher. Awake and alert in no acute distress. Doing quite a bit better today compared to yesterday. Tolerating a clear liquid breakfast. Maintaining O2 saturations in the upper 90s on 6 L/min per nasal cannula. She has been afebrile. Hemodynamically stable. X-ray reveals some diffuse hazy and patchy bilateral airspace disease. Blood cultures are pending. White count 19.8. Hemoglobin 8.6. Platelets 210. Sodium 135. Potassium 4.4. Bicarb 32. BUN 70. Creatinine 1.21. Glucose 149. AST 250. ALT 242. Alk phos 403. Echocardiogram reveals a hyperdynamic LV with a EF around 70%. There is severe mitral stenosis and moderate aortic stenosis. Severe pulmonary hypertension with an RVSP exceeding 50 mmHg. She is continued on DuoNeb ventilations, IV diuretics, antibiotics in the form of vancomycin and cefepime. Procalcitonin pending. The patient is seen today July 01, 2023 in follow-up on the regular medical floor. She is currently sitting up in bed. Awake and alert in no acute distress. She is maintaining O2 saturations in the 90s on 6 L high flow nasal cannula. Her procalcitonin was 1.16. She remains on cefepime and vancomycin. Cultures are pending. Creatinine 1.18. Glucose 121. INR 6.4. She remains on bronchodilators, oral diuretics, anticoagulated with warfarin. Objective - Vital Signs Vital signs: Vital Signs Temp 97.0 F L 07/01/23 07:32 Pulse 64 07/01/23 11:22 Resp 20 07/01/23 07:32 BP 92/47 07/01/23 07:32 Pulse Ox 98 07/01/23 08:26 FiO2 50 06/29/23 18:30 Intake & Output 06/30/23 07/01/23 07/01/23 18:59 06:59 18:59 Output Total 1275 350 Balance -1275 -350 Weight 43.998 kg 46.7 kg 46.7 kg Output: Urine 1275 350 Other: Voiding Method Indwelling Catheter Indwelling Catheter # Bowel Movements 1 2 1 - Exam GENERAL EXAM: Alert, frail 82-year-old female, on 6 L nasal cannula, in no apparent distress. HEAD: Normocephalic. EYES: Normal reaction of pupils, equal size. NOSE: Clear with pink turbinates. THROAT: No erythema or exudates. NECK: No masses, no JVD. CHEST: No chest wall deformity. LUNGS: Equal air entry with crackles in the bilateral bases. CVS: S1 and S2 normal with no audible murmur, regular rhythm. ABDOMEN: No hepatosplenomegaly, normal bowel sounds, no guarding or rigidity. SPINE: No scoliosis or deformity SKIN: No rashes CENTRAL NERVOUS SYSTEM: No focal deficits, tone is normal in all 4 extremities. EXTREMITIES: There is no peripheral edema. No clubbing, no cyanosis. Peripher al pulses are intact. - Labs CBC & Chem 7: 06/30/23 06:46 07/01/23 05:41 Labs: Abnormal Lab Results - Last 24 Hours (Table) 06/30/23 06/30/23 06/30/23 Range/Units 16:56 21:39 21:41 PT (10.0-12.5) sec INR (<1.2) Creatinine (0.52-1.04) mg/dL POC Glucose (mg/dL) 258 H 198 H (70-110) mg/dL Procalcitonin 1.16 H (0.02-0.09) ng/mL 07/01/23 07/01/23 07/01/23 Range/Units 05:41 06:38 12:51 PT 63.1 H (10.0-12.5) sec INR 6.4 H* (<1.2) Creatinine 1.18 H (0.52-1.04) mg/dL POC Glucose (mg/dL) 121 H (70-110) mg/dL Procalcitonin (0.02-0.09) ng/mL Microbiology - Last 24 Hours (Table) 06/29/23 02:35 Blood Culture - Preliminary Blood 06/29/23 02:20 Blood Culture - Preliminary Blood Assessment and Plan Assessment: Acute on chronic hypoxic respiratory failure, multifactorial Acute on chronic congestive heart failure with preserved ejection fraction hyperdynamic LV with an ejection fraction of 70% Severe mitral stenosis Mild to moderate aortic stenosis Severe pulmonary hypertension with RVSP exceeding 50 mmHg History of COVID-19 pneumonia and healthcare acquired pneumonia, patient was treated with remdesivir on the last admission History of rheumatoid arthritis and possibly some component of interstitial lung disease Severe mitral valve disease with severe mitral stenosis, and mild aortic regurgitation and stenosis. History of rheumatoid arthritis Hypothyroidism Lifelong non-smoker Mild intermittent asthma Acute kidney injury/ATN Acute hyperkalemia secondary to acute kidney injury, patient had recent treatment with Bactrim for a UTI. Pyuria, UTI, possible sepsis from urinary tract infection Plan: The patient was seen and evaluated Labs and medications reviewed Currently stable and on 6 L nasal cannula Titrate the FiO2 as tolerated Continued on antibiotics Continued diuretics Plan is to return to subacute rehab at discharge We will continue to follow I have personally seen and examined the patient, performed the documentation and the assessment and plan as written. Number of minutes spent on the visit: 10.
[2023-07-01 15:49] LABS: Anisocytosis Slight; Basophils % (A) 0 %; Eosinophils % (A) 1 %; Hypochromasia Marked; Lymphocytes # (A) 0.2 k/uL (1.0-4.8); Lymphocytes % (A) 3 %; MCH 31.4 pg (25.0-35.0); MCHC 29.4 g/dL (31.0-37.0); Macrocytosis Marked; Mean Platelet Volume 8.6; Monocytes # (A) 0.1 k/uL (0-1.0); Monocytes % (A) 2 %; Neutrophils # (A) 5.3 k/uL (1.3-7.7); Neutrophils % (A) 93 %; Platelet Count 126 k/uL (150-450); RBC 2.25 m/uL (3.80-5.40); RDW 17.1 % (11.5-15.5); WBC 5.7 k/uL (3.8-10.6)
[2023-07-01 16:04] LABS: HGB 7.1 gm/dL (11.4-16.0)
[2023-07-01 16:05] LABS: MCV 106.6 fL (80.0-100.0)
[2023-07-01 16:17] LABS: ALT 193 U/L (4-34); African American GFR (CKD) 44 (>60 ml/min/1.73 sqM); Albumin 1.8 g/dL (3.5-5.0); Albumin/Globulin Ratio 0.7; Alkaline Phosphatase 353 U/L (38-126); Anion Gap 1 mmol/L; Blood Urea Nitrogen 58 mg/dL (7-17); Calcium 7.2 mg/dL (8.4-10.2); Carbon Dioxide 32 mmol/L (22-30); Chloride 98 mmol/L (98-107); Globulin 2.7 g/dL; Glucose 249 mg/dL (74-99); Non-African American GFR(CKD) 38 (>60 ml/min/1.73 sqM); Potassium 3.4 mmol/L (3.5-5.1); Sodium 131 mmol/L (137-145); Total Bilirubin 0.6 mg/dL (0.2-1.3); Total Protein 4.5 g/dL (6.3-8.2)
[2023-07-01 16:18] LABS: AST 256 U/L (14-36)
[2023-07-01 16:51] LABS: Glucose,Whole Blood 239 mg/dL (70-110)
[2023-07-01] MEDS: WARFARIN 0.5 MG TAB PO ONE (18:10)
[2023-07-01] MEDS ORDERED: MORPHINE SULFATE 2 MG/ML SYRINGE IVP PRN (20:00)
[2023-07-01] MEDS: ACETAMINOPHEN TAB 325 MG TAB PO PRN (20:14)
[2023-07-01 20:30] LABS: Glucose,Whole Blood 191 mg/dL (70-110)
[2023-07-01] MEDS: POTASSIUM CHLORIDE ER 20 MEQ TAB.ER PO ONE (21:34)
--- NOTE | 2023-07-01 23:19 | P.CONS ---
History of Present Illness - Reason for Consult Consult date: 07/01/23 Sepsis Requesting physician: Janel Darden - Chief Complaint Increasing shortness of breath x few days - History of Present Illness Patient is a 82-year-old female with a past medical history significant for hypertension hyperlipidemia mitral valve prolapse rheumatoid arthritis heart failure patient has been brought into the hospital 3 days ago for evaluation of increasing shortness of breath and this patient was discharged from the hospital a day before presenting with increasing shortness of breath patient denies having any chest pain denies any high-grade fever or any chills and patient did have a low-grade fever of 99.7 during this hospital stay the patient also have a cough moderate intensity but not bring up any sputum denies any pleuritic chest pain some nausea and vomiting no abdominal pain or any diarrhea patient has mentioned that he has been running a low-grade fever however the patient was not tachycardic hypotensive she was hypoxic and is currently on 6 L high flow nasal cannula oxygen patient did have a white count of 20,000 admission with a left shift BUN/creatinine has been mildly elevated liver enzymes mildly elevated urine was mildly positive for procalcitonin is 1.16 urine drug screen is Positive for benzodiazepine patient did have a chest x-ray cardiomegaly moderate vascular congestion patient is currently on vancomy jake and cefepime infectious disease was consulted today for further management of antibiotic therapy Review of Systems Positive point and negatives has been mentioned in the HPI, complete review of systems was performed and all other systems are negative Past Medical History Past Medical History: Heart Failure, Hyperlipidemia, Hypertension, Mitral Valve Prolapse (MVP), Rheumatoid Arthritis (RA), Thyroid Disorder Additional Past Medical History / Comment(s): HAD A PNE VACCINE AFTER AGE 67 BUT NOT SURE OF DATE,OFFICE CLOSED AT TIME OF THIS ADMIT. Last Myocardial Infarction Date:: History of Any Multi-Drug Resistant Organisms: None Reported Past Surgical History: Section, Orthopedic Surgery Additional Past Surgical History / Comment(s): total right knee replacement Past Anesthesia/Blood Transfusion Reactions: No Reported Reaction Additional Past Anesthesia/Blood Transfusion Reaction / Comm: clausterphobia Smoking Status: Never smoker - Past Family History Father Additional Family Medical History / Comment(s): smoker-had problems related to that Mother Additional Family Medical History / Comment(s): smoker-problems related to that Medications and Allergies Home Medications Medication Instructions Recorded Confirmed Type Budesonide-Formot 160-4.5 Mcg 2 puff INHALATION RT-BID #1 inhaler 04/06/16 06/29/23 Rx [Symbicort 160-4.5 Mcg Inhaler] Alendronate Sodium [Fosamax] 70 mg PO MO@0900 08/09/21 06/29/23 History Cholecalciferol [Vitamin D3 (25 50 mcg PO DAILY 08/09/21 06/29/23 History Mcg = 1000 Iu)] Levothyroxine Sodium [Synthroid] 112 mcg PO MOTUWETHFR@0608/09/21 06/29/23 History Montelukast [Singulair] 10 mg PO HS 08/09/21 06/29/23 History Acetaminophen [Tylenol Arthritis] 650 mg PO Q8HR PRN 03/19/22 06/29/23 History Empagliflozin [Jardiance] 10 mg PO DAILY 03/19/22 06/29/23 History Levothyroxine Sodium [Synthroid] 56 mcg PO SUSA@59903/19/22 06/29/23 History Aspirin 81 mg PO DAILY@59905/26/23 06/29/23 History Atorvastatin [Lipitor] 80 mg PO HS 05/26/23 06/29/23 History Calcium Carbonate [Calcium] 600 mg PO DAILY 05/26/23 06/29/23 History Furosemide [Lasix] 40 mg PO DAILY@59905/26/23 06/29/23 History Albuterol Inhaler [Ventolin Hfa 2 puff INHALATION RT-QID PRN #1 05/31/23 06/29/23 Rx Inhaler] each ALPRAZolam [Xanax] 0.25 mg PO Q8HR PRN 3 Days #9 tab 06/26/23 06/29/23 Rx Amiodarone [Cordarone] 400 mg PO BID tab 06/26/23 06/29/23 Rx Benzonatate [Tessalon Perles] 200 mg PO TID PRN cap 06/26/23 06/29/23 Rx Nystatin 100,000 Unit/ml Susp 5 ml PO QID 7 Days #140 ml 06/26/23 06/29/23 Rx [Mycostatin Oral Susp] Ascorbic Acid [Vitamin C] 1,000 mg PO DAILY 06/29/23 06/29/23 History INSULIN ASPART (NovoLOG) [NovoLOG See Protocol SQ ACHS 06/29/23 06/29/23 History (formulary)] Magnesium Oxide [Mag-Ox] 400 mg PO DAILY 06/29/23 06/29/23 History Metoprolol Tartrate [Lopressor] 50 mg PO Q12H 06/29/23 06/29/23 History Multivitamins, Thera [Multivitamin 1 tab PO DAILY 06/29/23 06/29/23 History (formulary)] Omeprazole Magnesium [PriLOSEC OTC] 20 mg PO HS 06/29/23 06/29/23 History Sulfamethox-Tmp 800-160Mg [Bactrim 1 tab PO BID 06/29/23 06/29/23 History DS 800-160 mg] Warfarin [Coumadin] 0.5 mg PO DAILY@1700 06/29/23 06/29/23 History Zinc Sulfate [Orazinc] 220 mg PO DAILY 06/29/23 06/29/23 History predniSONE See Taper PO DIRECTED 06/29/23 06/29/23 History Allergies Allergy/AdvReac Type Severity Reaction Status Date / Time clarithromycin [From Biaxin] Allergy Unknown Verified 06/29/23 08:45 gemifloxacin [From Factive] Allergy Unknown Verified 06/29/23 08:45 prednisone Allergy Unknown Verified 06/29/23 08:45 amoxicillin [From Augmentin] AdvReac Nausea & Verified 06/29/23 08:45 Vomiting & Diarrhea clavulanic acid AdvReac Nausea & Verified 06/29/23 08:45 [From Augmentin] Vomiting & Diarrhea Physical Exam Vitals: Vital Signs Temp Pulse Pulse Resp BP Pulse Ox 07/01/23 21:28 64 07/01/23 21:19 63 07/01/23 19:32 98.2 F 84 17 102/54 100 07/01/23 15:41 64 07/01/23 15:29 63 07/01/23 15:07 98.1 F 75 17 99/55 100 07/01/23 11:30 68 07/01/23 11:22 64 07/01/23 08:38 76 07/01/23 08:26 68 98 07/01/23 07:32 97.0 F L 60 20 92/47 96 07/01/23 02:30 97.4 F L 86 16 94/56 100 06/30/23 22:47 85 96/56 100 Intake and Output 07/01/23 07/01/23 07/01/23 06:59 14:59 22:59 Output Total 350 425 Balance -350 -425 Output: Urine 350 425 Other: Voiding Method Indwelling Catheter # Bowel Movements 2 1 1 Weight 46.7 kg 46.7 kg GENERAL DESCRIPTION: Elderly female lying in bed, no distress. No tachypnea or accessory muscle of respiration use. HEENT: Shows Pallor , no scleral icterus. Oral mucous membrane is dry. No pharyngeal erythema or thrush NECK: Trachea central, no thyromegaly. LUNGS: Unlabored breathing. Decreased breath sound at the bases HEART: S1, S2, regular rate and rhythm. No loud murmur ABDOMEN: Soft, mild right-sided tenderness , no guarding or rigidity EXTREMITIES: No edema of feet. SKIN: No rash, no masses palpable. NEUROLOGICAL: The patient is lethargic but arousable mood and affect normal. Results CBC & Chem 7: 07/20/23 06:14 07/20/23 05:59 Labs: Abnormal Lab Results - Last 24 Hours (Table) 06/30/23 07/01/23 07/01/23 Range/Units 21:39 05:41 06:38 RBC (3.80-5.40) m/uL Hgb (11.4-16.0) gm/dL Hct (34.0-46.0) % MCV (80.0-100.0) fL MCHC (31.0-37.0) g/dL RDW (11.5-15.5) % Plt Count (150-450) k/uL Lymphocytes # (1.0-4.8) k/uL Macrocytosis PT (10.0-12.5) sec INR (<1.2) Sodium (137-145) mmol/L Potassium (3.5-5.1) mmol/L Carbon Dioxide (22-30) mmol/L BUN (7-17) mg/dL Creatinine 1.18 H (0.52-1.04) mg/dL Glucose (74-99) mg/dL POC Glucose (mg/dL) 121 H (70-110) mg/dL Calcium (8.4-10.2) mg/dL AST (14-36) U/L ALT (4-34) U/L Alkaline Phosphatase (38-126) U/L Total Protein (6.3-8.2) g/dL Albumin (3.5-5.0) g/dL Procalcitonin 1.16 H (0.02-0.09) ng/mL 07/01/23 07/01/23 07/01/23 Range/Units 12:51 15:20 15:20 RBC 2.25 L (3.80-5.40) m/uL Hgb 7.1 L D (11.4-16.0) gm/dL Hct 24.0 L (34.0-46.0) % MCV 106.6 H D (80.0-100.0) fL MCHC 29.4 L (31.0-37.0) g/dL RDW 17.1 H (11.5-15.5) % Plt Count 126 L (150-450) k/uL Lymphocytes # 0.2 L (1.0-4.8) k/uL Macrocytosis Marked A PT 63.1 H (10.0-12.5) sec INR 6.4 H* (<1.2) Sodium 131 L (137-145) mmol/L Potassium 3.4 L (3.5-5.1) mmol/L Carbon Dioxide 32 H (22-30) mmol/L BUN 58 H (7-17) mg/dL Creatinine 1.33 H (0.52-1.04) mg/dL Glucose 249 H (74-99) mg/dL POC Glucose (mg/dL) (70-110) mg/dL Calcium 7.2 L (8.4-10.2) mg/dL AST 256 H (14-36) U/L ALT 193 H (4-34) U/L Alkaline Phosphatase 353 H (38-126) U/L Total Protein 4.5 L (6.3-8.2) g/dL Albumin 1.8 L (3.5-5.0) g/dL Procalcitonin (0.02-0.09) ng/mL 07/01/23 07/01/23 Range/Units 16:49 20:23 RBC (3.80-5.40) m/uL Hgb (11.4-16.0) gm/dL Hct (34.0-46.0) % MCV (80.0-100.0) fL MCHC (31.0-37.0) g/dL RDW (11.5-15.5) % Plt Count (150-450) k/uL Lymphocytes # (1.0-4.8) k/uL Macrocytosis PT (10.0-12.5) sec INR (<1.2) Sodium (137-145) mmol/L Potassium (3.5-5.1) mmol/L Carbon Dioxide (22-30) mmol/L BUN (7-17) mg/dL Creatinine (0.52-1.04) mg/dL Glucose (74-99) mg/dL POC Glucose (mg/dL) 239 H 191 H (70-110) mg/dL Calcium (8.4-10.2) mg/dL AST (14-36) U/L ALT (4-34) U/L Alkaline Phosphatase (38-126) U/L Total Protein (6.3-8.2) g/dL Albumin (3.5-5.0) g/dL Procalcitonin (0.02-0.09) ng/mL Microbiology - Last 24 Hours (Table) 06/29/23 02:35 Blood Culture - Preliminary Blood 06/29/23 02:20 Blood Culture - Preliminary Blood Assessment and Plan (1) Allergy to multiple antibiotics Status: Acute Code(s): Z88.1 - ALLERGY STATUS TO OTHER ANTIBIOTIC AGENTS SNOMED Code(s): 203906204 (2) Pneumonia Status: Acute Code(s): J18.9 - PNEUMONIA, UNSPECIFIED ORGANISM SNOMED Code(s): 154178500 (3) Sepsis Status: Acute Code(s): A41.9 - SEPSIS, UNSPECIFIED ORGANISM SNOMED Code(s): 07538311 (4) UTI (urinary tract infection) Status: Acute Code(s): N39.0 - URINARY TRACT INFECTION, SITE NOT SPECIFIED SNOMED Code(s): 63752923 Plan: 1patient presented hospital with increasing shortness of breath which is likely multifactorial with a question of venous congestion/pneumonia not entirely exc luded possible gram-negative less likely aspiration etiology. 2we will try to obtain MRSA nasal screening and check a sputum for Gram stain culture that will help narrow down her antibiotic therapy 3-for now continue the vancomycin cefepime keeping in mind clinical improvement We will follow on clinical condition and cultures to further adjust medication if needed Thank you for this consultation we will follow the patient along with you Dictation was produced using [employer] dictation software. please excuse any grammatical, word or spelling errors. Time with Patient: Greater than 30
[2023-07-02 05:47] LABS: Glucose,Whole Blood 111 mg/dL (70-110)
[2023-07-02 06:52] LABS: INR 2.3 (<1.2); Prothrombin Time 22.7 sec (10.0-12.5)
--- NOTE | 2023-07-02 06:54 | P.PN ---
Subjective Progress Note Date: 07/01/23 patient is a 82-year-old lady with past medical history significant for congestive heart failure, atrial fibrillation with RVR,presented to the ER because of worsening shortness of breath. Patient was only recently discharged on 06/25 after being treated in the hospital for similar complaints.after discha rge, patient was all right for 1 day but started noticing that she was getting more short of breath on exertion. Patient denied any chest pain. There was no complain of orthopnea or PND. There was no complain of swelling of feet. There was no complain of fever or chills. Patient oxygen requirements were also increasing so she was transferred back to the ER Initial lab work done in the ER showed WBC 28, hemoglobin 10.5, platelet count 332, INR 3.7, sodium 138, potassium 6.2, BUN 79, creatinine1.71, AST 378, ALT 350, troponin 0.247 EKG done in the ER showed heart rate of [address] , no ST segment elevation or depression seen, no T-wave inversions seen. Chest x-ray done in the ER showed cardiomegaly and moderate vascular congestion Patient admitted to internal medicine service 06/29. Patient seen and examined. Blood work done this morning showed WBC 19.8, hemoglobin 8.6, sodium 135, potassium 4.4, BUN 70, creatinine 1.21. Ox requirements have improved, currently on 6 L of oxygen. Patient is much more talkative compared to yesterday. Answering questions. 07/01/2023 Patient examined today in follow up. Remains on 6L of oxygen, more awake and alert. She continues on clear liquid diet which will be upgraded pending speech therapy recommendations as there is concern for aspiration. Indwelling catheter remains in place for urinary retention with concern for acute UTI which family feels was caused from the IDC placed prior to her previous discharge. She has been started on cefepime and vancomycin with concern for sepsis. White blood cell count has normalized to 5.7. Hemoglobin 7.1. INR 6.4 and warfarin remains on hold. Renal function stable. LFTs remain significantly elevated. REVIEW OF SYSTEMS: CONSTITUTIONAL: No fever, no malaise,. CARDIOVASCULAR: No chest pain, no palpitations, no syncope. PULMONARY: No shortness of breath, no cough, GASTROINTESTINAL: No diarrhea, no nausea, no vomiting, no abdominal pain. NEUROLOGICAL: No headaches, no weakness, PHYSICAL EXAMINATION: GENERAL: The patient is alert and oriented x3, not in any acute distress. Ill looking HEENT: Pupils are round and equally reacting to light. EOMI. No scleral icterus. No conjunctival pallor. Normocephalic, atraumatic. No pharyngeal erythema. No thyromegaly. CARDIOVASCULAR: S1 and S2 present. Murmur audible in the mitral area PULMONARY: Coarse breath sound bilaterally, expiratory rhonchi audible ABDOMEN: Soft, nontender, nondistended, normoactive bowel sounds. No palpable organomegaly. MUSCULOSKELETAL: No joint swelling or deformity. EXTREMITIES: No cyanosis, clubbing, or pedal edema. NEUROLOGICAL: Gross neurological examination did not reveal any focal deficits. SKIN: No rashes. Assessment and plan Acute hypoxic respiratory failure on 6L family states patient does not wear oxygen usually Non-ST elevation MD Acute on chronic diastolic heart failure Hyperkalemia Acute kidney injury Acute transaminitis Acute exacerbation of mild intermittent chronic bronchial asthma History of coronary artery disease with previous PCI/stent x3 History of hyperlipidemia History of hypertension Moderate to severe mitral calcification and moderate to severe mitral stenosis and mild aortic regurgitation and stenosis. Pulmonary hypertension WHO class II Rheumatoid arthritis History of hypothyroidism Lifelong non-smoker GI prophylaxis DVT prophylaxis warfarin remains held INR supratherapeutic Full Code Plan Continue oxygen supplementation Aggressive bronchopulmonary hygiene Avoid nephrotoxic agents Strict I's and O's, daily weights, transitioned to oral lasix Continue IV cefepime and vancomycin, consult ID. Cultures pending. Covid PCR ordered Gallbladder ultrasound Speech therapy consultation PT/OT following Repeat labs in the AM. The impression and plan of care has been dictated by Janel Darden, Nurse Practitioner as directed. Dr. Brent MD I have performed a history and physical examination and medical decision making of this patient, discussed the same with the dictator, and agree with the dictators assessment and plan as written, documented as a scribe. Based on total visit time, I have performed more than 50% of this visit. Objective - Vital Signs Vital signs: Vital Signs Temp 98.1 F 07/01/23 15:07 Pulse 64 07/01/23 15:41 Resp 17 07/01/23 15:07 BP 99/55 07/01/23 15:07 Pulse Ox 100 07/01/23 15:07 FiO2 50 06/29/23 18:30 Intake & Output 07/01/23 07/01/23 07/02/23 06:59 18:59 06:59 Output Total 350 425 Balance -350 -425 Weight 46.7 kg 46.7 kg Output: Urine 350 425 Other: Voiding Method Indwelling Catheter Indwelling Catheter # Bowel Movements 2 1 - Labs CBC & Chem 7: 07/01/23 15:20 07/01/23 15:20 Labs: Abnormal Lab Results - Last 24 Hours (Table) 06/30/23 06/30/23 07/01/23 Range/Units 21:39 21:41 05:41 RBC (3.80-5.40) m/uL Hgb (11.4-16.0) gm/dL Hct (34.0-46.0) % MCV (80.0-100.0) fL MCHC (31.0-37.0) g/dL RDW (11.5-15.5) % Plt Count (150-450) k/uL Lymphocytes # (1.0-4.8) k/uL Macrocytosis PT (10.0-12.5) sec INR (<1.2) Sodium (137-145) mmol/L Potassium (3.5-5.1) mmol/L Carbon Dioxide (22-30) mmol/L BUN (7-17) mg/dL Creatinine 1.18 H (0.52-1.04) mg/dL Glucose (74-99) mg/dL POC Glucose (mg/dL) 198 H (70-110) mg/dL Calcium (8.4-10.2) mg/dL AST (14-36) U/L ALT (4-34) U/L Alkaline Phosphatase (38-126) U/L Total Protein (6.3-8.2) g/dL Albumin (3.5-5.0) g/dL Procalcitonin 1.16 H (0.02-0.09) ng/mL 07/01/23 07/01/23 07/01/23 Range/Units 06:38 12:51 15:20 RBC 2.25 L (3.80-5.40) m/uL Hgb 7.1 L D (11.4-16.0) gm/dL Hct 24.0 L (34.0-46.0) % MCV 106.6 H D (80.0-100.0) fL MCHC 29.4 L (31.0-37.0) g/dL RDW 17.1 H (11.5-15.5) % Plt Count 126 L (150-450) k/uL Lymphocytes # 0.2 L (1.0-4.8) k/uL Macrocytosis Marked A PT 63.1 H (10.0-12.5) sec INR 6.4 H* (<1.2) Sodium (137-145) mmol/L Potassium (3.5-5.1) mmol/L Carbon Dioxide (22-30) mmol/L BUN (7-17) mg/dL Creatinine (0.52-1.04) mg/dL Glucose (74-99) mg/dL POC Glucose (mg/dL) 121 H (70-110) mg/dL Calcium (8.4-10.2) mg/dL AST (14-36) U/L ALT (4-34) U/L Alkaline Phosphatase (38-126) U/L Total Protein (6.3-8.2) g/dL Albumin (3.5-5.0) g/dL Procalcitonin (0.02-0.09) ng/mL 07/01/23 07/01/23 07/01/23 Range/Units 15:20 16:49 20:23 RBC (3.80-5.40) m/uL Hgb (11.4-16.0) gm/dL Hct (34.0-46.0) % MCV (80.0-100.0) fL MCHC (31.0-37.0) g/dL RDW (11.5-15.5) % Plt Count (150-450) k/uL Lymphocytes # (1.0-4.8) k/uL Macrocytosis PT (10.0-12.5) sec INR (<1.2) Sodium 131 L (137-145) mmol/L Potassium 3.4 L (3.5-5.1) mmol/L Carbon Dioxide 32 H (22-30) mmol/L BUN 58 H (7-17) mg/dL Creatinine 1.33 H (0.52-1.04) mg/dL Glucose 249 H (74-99) mg/dL POC Glucose (mg/dL) 239 H 191 H (70-110) mg/dL Calcium 7.2 L (8.4-10.2) mg/dL AST 256 H (14-36) U/L ALT 193 H (4-34) U/L Alkaline Phosphatase 353 H (38-126) U/L Total Protein 4.5 L (6.3-8.2) g/dL Albumin 1.8 L (3.5-5.0) g/dL Procalcitonin (0.02-0.09) ng/mL Microbiology - Last 24 Hours (Table) 06/29/23 02:35 Blood Culture - Preliminary Blood 06/29/23 02:20 Blood Culture - Preliminary Blood Assessment and Plan Time with Patient: Less than 30
[2023-07-02] MEDS: AMIODARONE 200 MG TAB PO SCH (08:18)
[2023-07-02 09:07] LABS: HCT 23.3 % (37.2-46.3); MCH 30.9 pg (27.0-32.0); MCHC 29.6 g/dL (32.0-37.0); MCV 104.5 FL (80.0-97.0); Mean Platelet Volume 11.1 FL (9.5-12.2); NRBC Per 100 WBC 0 X 10*3/uL (0.00-0.01); Platelet Count 113 X 10*3/uL (140-440); RBC 2.23 X 10*6/uL (4.10-5.20); RDW 17.8 % (11.5-14.5); WBC 4.74 X 10*3/uL (4.50-10.00)
[2023-07-02 09:22] LABS: Basophils # (A) 0.02 X 10*3/uL (0.00-0.10); Basophils % (A) 0.4 %; Eosinophils # (A) 0.01 X 10*3/uL (0.04-0.35); Eosinophils % (A) 0.2 %; HGB 6.9 g/dL (12.0-15.0); Lymphocytes # (A) 0.34 X 10*3/uL (0.90-5.00); Lymphocytes % (A) 7.2 %; Monocytes # (A) 0.21 X 10*3/uL (0.20-1.00); Monocytes % (A) 4.4 %; Neutrophils # (A) 4.15 X 10*3/uL (1.80-7.70); Neutrophils % (A) 87.6 %; RBC Morphology Normal (Normal)
[2023-07-02 09:25] LABS: BUN/Creat Ratio 41.29 Ratio (12.00-20.00); Blood Urea Nitrogen 57.8 mg/dL (9.0-27.0); Calcium 7.7 mg/dL (8.7-10.3); Carbon Dioxide 28.9 mmol/L (21.6-31.8); Chloride 98 mmol/L (96-109); Glucose 103 mg/dL (70-110); Magnesium 2.5 mg/dL (1.5-2.4); Potassium 5.3 mmol/L (3.5-5.5); Sodium 135 mmol/L (135-145)
[2023-07-02] MEDS: FUROSEMIDE 40 MG TAB PO SCH (09:28)
--- NOTE | 2023-07-02 10:04 | US ---
EXAMINATION TYPE: US gallbladder DATE OF EXAM: 07/02/2023 COMPARISON: US Renal 2023 CLINICAL INDICATION: Female, 82 years old with history of elevated LFTs; Elevated LFTs TECHNIQUE: Multiple sonographic images of the right upper quadrant are obtained. FINDINGS: EXAM MEASUREMENTS: Liver Length: 11.7 cm Gallbladder Wall: 0.29 cm CBD: 0.43 cm Right Kidney: 10.8 x 4.9 x 5.6 cm [employer] NOTES: Exam is very limited due to gas. Pancreas: Tail was not seen. Appears hyperechoic. Liver: *Appears coarse in echotexture, limited due to gas. Gallbladder: *Echogenic material seen within measuring 4.6 x 2.8 x 3.3 cm. Hyperechoic focus seen within neck: 0.7 x 1.0 x 0.9 cm. Evidence for sonographic Rooney's sign: No CBD: Appears wnl Right Kidney: No hydronephrosis or masses seen, limited. Question possible some ascites seen adjacent to the liver. IMPRESSION: 1. Hepatic steatosis with ascites adjacent to the liver suspected. 2. Echogenic material within the gallbladder lumen with masslike appearance. Borderline gallbladder w all thickening.
--- NOTE | 2023-07-02 11:06 | P.PN ---
Subjective Patient is seen in follow-up for acute kidney injury. Renal function stable. Scheduled to receive a unit of blood today. No active bleeding. Oral intake fair. Nonoliguric. Denies chest pain or shortness of breath. Vital signs are stable. General: No acute distress. HEENT: Head exam is unremarkable. On nasal cannula. LUNGS: No audible rhonchi or wheezes. HEART: Rate and Rhythm are regular. ABDOMEN: Nontender. EXTREMITITES: No edema. Objective - Vital Signs Vital signs: Vital Signs Temp 97.5 F L 07/02/23 07:18 Pulse 63 07/02/23 07:18 Resp 17 07/02/23 07:18 BP 93/48 07/02/23 07:18 Pulse Ox 100 07/02/23 07:18 FiO2 50 06/29/23 18:30 Intake & Output 07/01/23 07/02/23 07/02/23 18:59 06:59 18:59 Output Total 425 200 Balance -425 -200 Weight 46.7 kg 53.5 kg Output: Urine 425 200 Uretheral ([place]) 200 Other: Voiding Method Indwelling Catheter Indwelling Catheter Indwelling Catheter # Bowel Movements 1 2 1 - Labs CBC & Chem 7: 07/02/23 06:00 07/02/23 06:00 Labs: Abnormal Lab Results - Last 24 Hours (Table) 07/01/23 07/01/23 07/01/23 Range/Units 12:51 15:20 15:20 RBC 2.25 L (3.80-5.40) m/uL Hgb 7.1 L D (11.4-16.0) gm/dL Hct 24.0 L (34.0-46.0) % MCV 106.6 H D (80.0-100.0) fL MCHC 29.4 L (31.0-37.0) g/dL RDW 17.1 H (11.5-15.5) % Plt Count 126 L (150-450) k/uL Lymphocytes # 0.2 L (1.0-4.8) k/uL Eosinophils # (0.04-0.35) X 10*3/uL Macrocytosis Marked A PT 63.1 H (10.0-12.5) sec INR 6.4 H* (<1.2) Sodium 131 L (137-145) mmol/L Potassium 3.4 L (3.5-5.1) mmol/L Carbon Dioxide 32 H (22-30) mmol/L BUN 58 H (7-17) mg/dL Creatinine 1.33 H (0.52-1.04) mg/dL Est GFR (CKD-EPI) (>=60) BUN/Creatinine Ratio (12.00-20.00) Ratio Glucose 249 H (74-99) mg/dL POC Glucose (mg/dL) (70-110) mg/dL Calcium 7.2 L (8.4-10.2) mg/dL Magnesium (1.5-2.4) mg/dL AST 256 H (14-36) U/L ALT 193 H (4-34) U/L Alkaline Phosphatase 353 H (38-126) U/L Total Protein 4.5 L (6.3-8.2) g/dL Albumin 1.8 L (3.5-5.0) g/dL 07/01/23 07/01/23 07/02/23 Range/Units 16:49 20:23 05:44 RBC (3.80-5.40) m/uL Hgb (11.4-16.0) gm/dL Hct (34.0-46.0) % MCV (80.0-100.0) fL MCHC (31.0-37.0) g/dL RDW (11.5-15.5) % Plt Count (150-450) k/uL Lymphocytes # (1.0-4.8) k/uL Eosinophils # (0.04-0.35) X 10*3/uL Macrocytosis PT (10.0-12.5) sec INR (<1.2) Sodium (137-145) mmol/L Potassium (3.5-5.1) mmol/L Carbon Dioxide (22-30) mmol/L BUN (7-17) mg/dL Creatinine (0.52-1.04) mg/dL Est GFR (CKD-EPI) (>=60) BUN/Creatinine Ratio (12.00-20.00) Ratio Glucose (74-99) mg/dL POC Glucose (mg/dL) 239 H 191 H 111 H (70-110) mg/dL Calcium (8.4-10.2) mg/dL Magnesium (1.5-2.4) mg/dL AST (14-36) U/L ALT (4-34) U/L Alkaline Phosphatase (38-126) U/L Total Protein (6.3-8.2) g/dL Albumin (3.5-5.0) g/dL 07/02/23 07/02/23 07/02/23 Range/Units 06:00 06:00 06:00 RBC 2.23 L (3.80-5.40) m/uL Hgb 6.9 A* (11.4-16.0) gm/dL Hct 23.3 L (34.0-46.0) % MCV 104.5 H (80.0-100.0) fL MCHC 29.6 L (31.0-37.0) g/dL RDW 17.8 H (11.5-15.5) % Plt Count 113 L (150-450) k/uL Lymphocytes # 0.34 L (1.0-4.8) k/uL Eosinophils # 0.01 L (0.04-0.35) X 10*3/uL Macrocytosis PT 22.7 H (10.0-12.5) sec INR 2.3 H (<1.2) Sodium (137-145) mmol/L Potassium (3.5-5.1) mmol/L Carbon Dioxide (22-30) mmol/L BUN 57.8 H (7-17) mg/dL Creatinine (0.52-1.04) mg/dL Est GFR (CKD-EPI) 38 L (>=60) BUN/Creatinine Ratio 41.29 H (12.00-20.00) Ratio Glucose (74-99) mg/dL POC Glucose (mg/dL) (70-110) mg/dL Calcium 7.7 L (8.4-10.2) mg/dL Magnesium 2.5 H (1.5-2.4) mg/dL AST (14-36) U/L ALT (4-34) U/L Alkaline Phosphatase (38-126) U/L Total Protein (6.3-8.2) g/dL Albumin (3.5-5.0) g/dL Microbiology - Last 24 Hours (Table) 06/29/23 02:35 Blood Culture - Preliminary Blood 06/29/23 02:20 Blood Culture - Preliminary Blood Assessment and Plan Plan: Assessment: 1. Acute kidney injury secondary to ATN secondary to severe sepsis. Was also on Bactrim prior to admission. No hydronephrosis noted on kidney ultrasound. Creatinine 1.7 on admission and fairly stable at 1.4 today. Now on lasix. 2. Chronic diastolic CHF with severe pulmonary hypertension, mild to moderate aortic stenosis, moderate aortic regurgitation, severe mitral stenosis. 3. Hyperkalemia secondary to acute kidney injury on Bactrim. Improved. 4. Mild volume overload. On Lasix. 5. Acute blood loss anemia. Scheduled to receive a unit of blood today. Plan: Maintain oral Lasix. Encouraged oral intake. F/u iron studies. Avoid nephrotoxins. Continue to monitor renal function and urine output.
[2023-07-02 11:47] LABS: Glucose,Whole Blood 97 mg/dL (70-110)
--- NOTE | 2023-07-02 12:55 | P.PN ---
Subjective Progress Note Date: 07/02/23 This is an 82-year-old female, familiar to my service, patient was recently in the hospital with acute COVID-19 pneumonia, congestive heart failure, atrial fibrillation with RVR, possible underlying interstitial lung disease, patient was discharged on 06/26/2023, pulmonary service has seen this patient initially on 06/09/2023, at that time the patient was admitted with acute hypoxic respiratory failure, acute COVID-19 pneumonia, chronic bronchial asthma, and possible hospital-acquired pneumonia. In addition the patient had mild intermittent asthma, congestive heart failure, severe mitral calcification and moderate to severe mitral stenosis with preserved LV function and preserved ejection fraction. She also has history of rheumatoid arthritis, hypothyroidism, and lifelong non-smoker. We saw this patient last on 06/26/2023,, she was on 2 L nasal cannula, her labs were unremarkable, her sputum cultures were nondiagnostic, blood cultures were nondiagnostic, she had relatively normal renal profile, and she was at the time on warfarin, Symbicort, Singulair and albuterol. Patient was discharged to the [facility] on the [place]. Patient was discharged on amiodarone, Coumadin, prednisone 20 mg daily, Lopressor, and nystatin swish and swallow. Otherwise the patient was kept on her usual medications including Symbicort, Jardiance, levothyroxine, Singulair, Fosamax, ascorbic acid, atorvastatin, Lasix 40 mg p.o. daily, and Xanax. As well as albuterol. Patient was sent from the [facility] down to the ER today mostly because of low O2 saturation, and patient was noted to have some shortness of breath. Chest x-ray on this admission showed cardiomegaly and mild pulmonary vascular congestion, no clear-cut evidence of pneumonia. As a matter fact her chest x-ray shows significant improvement compared to her initial chest x-ray on her last admission. In addition to her shortness of breath, patient was noted to have abnormal labs with a potassium of 6.2, her BUN is 79 and creatinine 1.71. Patient was also noted to have elevated BNP level of 27,000 and troponin leak. ABG on 50% FiO2 showed a pO2 of 69 pCO2 48 pH of 7.54. Patient is now on 3 L nasal cannula, seems to be comfortable, not in distress. Seen by nephrology for her acute kidney injury, ATN, hyperkalemia with acute kidney injury and apparently the patient was on Bactrim and the recommendation by nephrology was to continue with IV fluids, IV antibiotics, and repeat labs in AM. Patient has a very poor urine output, I did recommend a fluid bolus of 500 cc of saline while in the ER, blood pressure is marginal. Considering her marginal low blood pressure, I am recommending that the patient goes to the ICU. Nephrology is addressing her abnormal renal profile and hyperkalemia The patient is seen today June 30, 2023 in follow-up in the emergency department. She is currently sitting up in the stretcher. Awake and alert in no acute distress. Doing quite a bit better today compared to yesterday. Tolerating a clear liquid breakfast. Maintaining O2 saturations in the upper 90s on 6 L/min per nasal cannula. She has been afebrile. Hemodynamically stable. X-ray reveals some diffuse hazy and patchy bilateral airspace disease. Blood cultures are pending. White count 19.8. Hemoglobin 8.6. Platelets 210. Sodium 135. Potassium 4.4. Bicarb 32. BUN 70. Creatinine 1.21. Glucose 149. AST 250. ALT 242. Alk phos 403. Echocardiogram reveals a hyperdynamic LV with a EF around 70%. There is severe mitral stenosis and moderate aortic stenosis. Severe pulmonary hypertension with an RVSP exceeding 50 mmHg. She is continued on DuoNeb ventilations, IV diuretics, antibiotics in the form of vancomycin and cefepime. Procalcitonin pending. The patient is seen today July 01, 2023 in follow-up on the regular medical floor. She is currently sitting up in bed. Awake and alert in no acute distress. She is maintaining O2 saturations in the 90s on 6 L high flow nasal cannula. Her procalcitonin was 1.16. She remains on cefepime and vancomycin. Cultures are pending. Creatinine 1.18. Glucose 121. INR 6.4. She remains on bronchodilators, oral diuretics, anticoagulated with warfarin. The patient is seen today July 02, 2023 in follow-up on the regular medical floor. She is currently resting in bed. Awake and alert in no acute distress. She is maintaining good O2 saturations up to 100% on 6 L/min per nasal cannula. She is afebrile. Hemodynamically stable. Ultrasound of the abdomen reveals hepatic steatosis with ascites adjacent to the liver. Echogenic material within the gallbladder lumen with masslike appearance. Borderline gallbladder wall thickening. Hemoglobin 6.9. She is receiving 1 unit of packed red blood cells. Platelets 113. White count 4.7. INR 2.3. Sodium 135. Potassium 5.3. Bicarb 29. BUN 58. Creatinine 1.4. Glucose 103. She is continued on DuoNeb inh alations, cefepime and vancomycin. Remains on oral diuretics. Objective - Vital Signs Vital signs: Vital Signs Temp 97.1 F L 07/02/23 12:47 Pulse 64 07/02/23 12:47 Resp 14 07/02/23 12:47 BP 95/56 07/02/23 12:47 Pulse Ox 100 07/02/23 07:18 FiO2 50 06/29/23 18:30 Intake & Output 07/01/23 07/02/23 07/02/23 18:59 06:59 18:59 Intake Total 0 Output Total 425 200 Balance -425 -200 0 Weight 46.7 kg 53.5 kg Intake: Blood Product 0 Unit 0 Output: Urine 425 200 Uretheral ([place]) 200 Other: Voiding Method Indwelling Catheter Indwelling Catheter Indwelling Catheter # Bowel Movements 1 2 1 - Exam GENERAL EXAM: Alert, frail, pale 82-year-old female, resting in bed, on 6 L nasal cannula, in no apparent distress. HEAD: Normocephalic. EYES: Normal reaction of pupils, equal size. NOSE: Clear with pink turbinates. THROAT: No erythema or exudates. NECK: No masses, no JVD. CHEST: No chest wall deformity. LUNGS: Equal air entry with crackles in the bilateral bases. CVS: S1 and S2 normal with no audible murmur, regular rhythm. ABDOMEN: No hepatosplenomegaly, normal bowel sounds, no guarding or rigidity. SPINE: No scoliosis or deformity SKIN: No rashes CENTRAL NERVOUS SYSTEM: No focal deficits, tone is normal in all 4 extremities. EXTREMITIES: There is no peripheral edema. No clubbing, no cyanosis. Per ipheral pulses are intact. - Labs CBC & Chem 7: 07/02/23 06:00 07/02/23 06:00 Labs: Abnormal Lab Results - Last 24 Hours (Table) 07/01/23 07/01/23 07/01/23 Range/Units 12:51 15:20 15:20 RBC 2.25 L (3.80-5.40) m/uL Hgb 7.1 L D (11.4-16.0) gm/dL Hct 24.0 L (34.0-46.0) % MCV 106.6 H D (80.0-100.0) fL MCHC 29.4 L (31.0-37.0) g/dL RDW 17.1 H (11.5-15.5) % Plt Count 126 L (150-450) k/uL Lymphocytes # 0.2 L (1.0-4.8) k/uL Eosinophils # (0.04-0.35) X 10*3/uL Macrocytosis Marked A PT 63.1 H (10.0-12.5) sec INR 6.4 H* (<1.2) Sodium 131 L (137-145) mmol/L Potassium 3.4 L (3.5-5.1) mmol/L Carbon Dioxide 32 H (22-30) mmol/L BUN 58 H (7-17) mg/dL Creatinine 1.33 H (0.52-1.04) mg/dL Est GFR (CKD-EPI) (>=60) BUN/Creatinine Ratio (12.00-20.00) Ratio Glucose 249 H (74-99) mg/dL POC Glucose (mg/dL) (70-110) mg/dL Calcium 7.2 L (8.4-10.2) mg/dL Magnesium (1.5-2.4) mg/dL AST 256 H (14-36) U/L ALT 193 H (4-34) U/L Alkaline Phosphatase 353 H (38-126) U/L Total Protein 4.5 L (6.3-8.2) g/dL Albumin 1.8 L (3.5-5.0) g/dL Crossmatch 07/01/23 07/01/23 07/02/23 Range/Units 16:49 20:23 05:44 RBC (3.80-5.40) m/uL Hgb (11.4-16.0) gm/dL Hct (34.0-46.0) % MCV (80.0-100.0) fL MCHC (31.0-37.0) g/dL RDW (11.5-15.5) % Plt Count (150-450) k/uL Lymphocytes # (1.0-4.8) k/uL Eosinophils # (0.04-0.35) X 10*3/uL Macrocytosis PT (10.0-12.5) sec INR (<1.2) Sodium (137-145) mmol/L Potassium (3.5-5.1) mmol/L Carbon Dioxide (22-30) mmol/L BUN (7-17) mg/dL Creatinine (0.52-1.04) mg/dL Est GFR (CKD-EPI) (>=60) BUN/Creatinine Ratio (12.00-20.00) Ratio Glucose (74-99) mg/dL POC Glucose (mg/dL) 239 H 191 H 111 H (70-110) mg/dL Calcium (8.4-10.2) mg/dL Magnesium (1.5-2.4) mg/dL AST (14-36) U/L ALT (4-34) U/L Alkaline Phosphatase (38-126) U/L Total Protein (6.3-8.2) g/dL Albumin (3.5-5.0) g/dL Crossmatch 07/02/23 07/02/23 07/02/23 Range/Units 06:00 06:00 06:00 RBC 2.23 L (3.80-5.40) m/uL Hgb 6.9 A* (11.4-16.0) gm/dL Hct 23.3 L (34.0-46.0) % MCV 104.5 H (80.0-100.0) fL MCHC 29.6 L (31.0-37.0) g/dL RDW 17.8 H (11.5-15.5) % Plt Count 113 L (150-450) k/uL Lymphocytes # 0.34 L (1.0-4.8) k/uL Eosinophils # 0.01 L (0.04-0.35) X 10*3/uL Macrocytosis PT 22.7 H (10.0-12.5) sec INR 2.3 H (<1.2) Sodium (137-145) mmol/L Potassium (3.5-5.1) mmol/L Carbon Dioxide (22-30) mmol/L BUN 57.8 H (7-17) mg/dL Creatinine (0.52-1.04) mg/dL Est GFR (CKD-EPI) 38 L (>=60) BUN/Creatinine Ratio 41.29 H (12.00-20.00) Ratio Glucose (74-99) mg/dL POC Glucose (mg/dL) (70-110) mg/dL Calcium 7.7 L (8.4-10.2) mg/dL Magnesium 2.5 H (1.5-2.4) mg/dL AST (14-36) U/L ALT (4-34) U/L Alkaline Phosphatase (38-126) U/L Total Protein (6.3-8.2) g/dL Albumin (3.5-5.0) g/dL Crossmatch 07/02/23 Range/Units 10:49 RBC (3.80-5.40) m/uL Hgb (11.4-16.0) gm/dL Hct (34.0-46.0) % MCV (80.0-100.0) fL MCHC (31.0-37.0) g/dL RDW (11.5-15.5) % Plt Count (150-450) k/uL Lymphocytes # (1.0-4.8) k/uL Eosinophils # (0.04-0.35) X 10*3/uL Macrocytosis PT (10.0-12.5) sec INR (<1.2) Sodium (137-145) mmol/L Potassium (3.5-5.1) mmol/L Carbon Dioxide (22-30) mmol/L BUN (7-17) mg/dL Creatinine (0.52-1.04) mg/dL Est GFR (CKD-EPI) (>=60) BUN/Creatinine Ratio (12.00-20.00) Ratio Glucose (74-99) mg/dL POC Glucose (mg/dL) (70-110) mg/dL Calcium (8.4-10.2) mg/dL Magnesium (1.5-2.4) mg/dL AST (14-36) U/L ALT (4-34) U/L Alkaline Phosphatase (38-126) U/L Total Protein (6.3-8.2) g/dL Albumin (3.5-5.0) g/dL Crossmatch See Detail Microbiology - Last 24 Hours (Table) 06/29/23 02:35 Blood Culture - Preliminary Blood 06/29/23 02:20 Blood Culture - Preliminary Blood Assessment and Plan Assessment: Acute on chronic hypoxic respiratory failure, multifactorial Acute on chronic congestive heart failure with preserved ejection fraction hyperdynamic LV with an ejection fraction of 70% Acute anemia with a hemoglobin of 6.9, receiving 1 unit of packed red blood cells Echogenic material within the gallbladder lumen with masslike appearance. Borderline gallbladder thickening Hepatic steatosis with ascites adjacent to the liver suspected Severe mitral stenosis Mild to moderate aortic stenosis Severe pulmonary hypertension with RVSP exceeding 50 mmHg History of COVID-19 pneumonia and healthcare acquired pneumonia, patient was treated with remdesivir on the last admission History of rheumatoid arthritis and possibly some component of interstitial lung disease Severe mitral valve disease with severe mitral stenosis, and mild aortic regurgitation and stenosis. History of rheumatoid arthritis Hypothyroidism Lifelong non-smoker Mild intermittent asthma Acute kidney injury/ATN Acute hyperkalemia secondary to acute kidney injury, patient had recent treatment with Bactrim for a UTI. Pyuria, UTI, possible sepsis from urinary tract infection Plan: The patient was seen and evaluated Labs and medications reviewed Abdominal ultrasound reviewed Receiving 1 unit of packed red blood cells Currently stable and on 6 L nasal cannula Titrate down the FiO2 as tolerated Continued on antibiotics Continued diuretics Prognosis remains guarded We will continue to follow I have personally seen and examined the patient, performed the documentation and the assessment and plan as written. Number of minutes spent on the visit: 10.
[2023-07-02 14:18] LABS: % Iron Saturation 15.48 (12.00-45.00)
[2023-07-02 16:44] LABS: Glucose,Whole Blood 196 mg/dL (70-110)
[2023-07-02] MEDS: IOPAMIDOL CONTRAST (ORAL USE) VIAL PO PRN (17:47)
[2023-07-02 21:37] LABS: Glucose,Whole Blood 160 mg/dL (70-110)
--- NOTE | 2023-07-02 22:14 | P.PN ---
Subjective Progress Note Date: 07/02/23 patient is a 82-year-old lady with past medical history significant for congestive heart failure, atrial fibrillation with RVR,presented to the ER because of worsening shortness of breath. Patient was only recently discharged on 06/25 after being treated in the hospital for similar complaints.after discha rge, patient was all right for 1 day but started noticing that she was getting more short of breath on exertion. Patient denied any chest pain. There was no complain of orthopnea or PND. There was no complain of swelling of feet. There was no complain of fever or chills. Patient oxygen requirements were also increasing so she was transferred back to the ER Initial lab work done in the ER showed WBC 28, hemoglobin 10.5, platelet count 332, INR 3.7, sodium 138, potassium 6.2, BUN 79, creatinine1.71, AST 378, ALT 350, troponin 0.247 EKG done in the ER showed heart rate of [address] , no ST segment elevation or depression seen, no T-wave inversions seen. Chest x-ray done in the ER showed cardiomegaly and moderate vascular congestion Patient admitted to internal medicine service 06/29. Patient seen and examined. Blood work done this morning showed WBC 19.8, hemoglobin 8.6, sodium 135, potassium 4.4, BUN 70, creatinine 1.21. Ox requirements have improved, currently on 6 L of oxygen. Patient is much more talkative compared to yesterday. Answering questions. 07/01/2023 Patient examined today in follow up. Remains on 6L of oxygen, more awake and alert. She continues on clear liquid diet which will be upgraded pending speech therapy recommendations as there is concern for aspiration. Indwelling catheter remains in place for urinary retention with concern for acute UTI which family feels was caused from the IDC placed prior to her previous discharge. She has been started on cefepime and vancomycin with concern for sepsis. White blood cell count has normalized to 5.7. Hemoglobin 7.1. INR 6.4 and warfarin remains on hold. Renal function stable. LFTs remain significantly elevated. 07/02/2023 Patient is evaluated today on the medical floor. Weaned down to 4L of oxygen. LFTs remain elevated. Gallbladder ultrasound completed revealing hepatic steatosis with ascites adjacent to the liver suspected. Echogenic materinal within the gallbladder lumen with masslike appearance. Borderline wall thickening. Hemoglobin 6.9 today. Patient will receive 1 unit of blood. Covid PCR positive. REVIEW OF SYSTEMS: CONSTITUTIONAL: No fever, no malaise,. CARDIOVASCULAR: No chest pain, no palpitations, no syncope. PULMONARY: No shortness of breath, no cough, GASTROINTESTINAL: No diarrhea, no nausea, no vomiting, no abdominal pain. NEUROLOGICAL: No headaches, no weakness, PHYSICAL EXAMINATION: GENERAL: The patient is alert and oriented x3, not in any acute distress. Ill looking HEENT: Pupils are round and equally reacting to light. EOMI. No scleral icterus. No conjunctival pallor. Normocephalic, atraumatic. No pharyngeal erythema. No thyromegaly. CARDIOVASCULAR: S1 and S2 present. Murmur audible in the mitral area PULMONARY: Coarse breath sound bilaterally, expiratory rhonchi audible ABDOMEN: Soft, nontender, nondistended, normoactive bowel sounds. No palpable organomegaly. MUSCULOSKELETAL: No joint swelling or deformity. EXTREMITIES: No cyanosis, clubbing, or pedal edema. NEUROLOGICAL: Gross neurological examination did not reveal any focal deficits. Diffuse weakness. SKIN: No rashes. Assessment and plan Acute hypoxic respiratory failure on 4L [facility] patient does not wear oxygen usually Non-ST elevation GA Acute covid infection Acute on chronic diastolic heart failure Hyperkalemia normalized Anemia Acute kidney injury Acute transaminitis Acute exacerbation of mild intermittent chronic bronchial asthma History of coronary artery disease with previous PCI/stent x3 History of hyperlipidemia History of hypertension Moderate to severe mitral calcification and moderate to severe mitral stenosis and mild aortic regurgitation and stenosis. Pulmonary hypertension WHO class II Rheumatoid arthritis History of hypothyroidism Lifelong non-smoker GI prophylaxis DVT prophylaxis warfarin remains held INR supratherapeutic Full Code Plan Continue oxygen supplementation Aggressive bronchopulmonary hygiene Avoid nephrotoxic agents Strict I's and O's, daily weights, transitioned to oral lasix Continue IV cefepime and vancomycin, consult ID. Cultures pending. Covid PCR positive continue supportive care Wean oxygen as tolerated. PT/OT following Repeat labs in the AM. The impression and plan of care has been dictated by Janel Darden, Nurse Practitioner as directed. Dr. Brent MD I have performed a history and physical examination and medical decision making of this patient, discussed the same with the dictator, and agree with the dic tators assessment and plan as written, documented as a scribe. Based on total visit time, I have performed more than 50% of this visit. Objective - Vital Signs Vital signs: Vital Signs Temp 97.1 F L 07/02/23 12:56 Pulse 62 07/02/23 12:56 Resp 14 07/02/23 12:56 BP 106/61 07/02/23 12:56 Pulse Ox 100 07/02/23 07:18 FiO2 50 06/29/23 18:30 Intake & Output 07/01/23 07/02/23 07/02/23 18:59 06:59 18:59 Intake Total 0 Output Total 425 200 Balance -425 -200 0 Weight 46.7 kg 53.5 kg Intake: Blood Product 0 Unit 0 Output: Urine 425 200 Uretheral ([place]) 200 Other: Voiding Method Indwelling Catheter Indwelling Catheter Indwelling Catheter # Bowel Movements 1 2 1 - Labs CBC & Chem 7: 07/02/23 06:00 07/02/23 06:00 Labs: Abnormal Lab Results - Last 24 Hours (Table) 07/01/23 07/01/23 07/01/23 Range/Units 12:51 15:20 15:20 RBC 2.25 L (3.80-5.40) m/uL Hgb 7.1 L D (11.4-16.0) gm/dL Hct 24.0 L (34.0-46.0) % MCV 106.6 H D (80.0-100.0) fL MCHC 29.4 L (31.0-37.0) g/dL RDW 17.1 H (11.5-15.5) % Plt Count 126 L (150-450) k/uL Lymphocytes # 0.2 L (1.0-4.8) k/uL Eosinophils # (0.04-0.35) X 10*3/uL Macrocytosis Marked A PT 63.1 H (10.0-12.5) sec INR 6.4 H* (<1.2) Sodium 131 L (137-145) mmol/L Potassium 3.4 L (3.5-5.1) mmol/L Carbon Dioxide 32 H (22-30) mmol/L BUN 58 H (7-17) mg/dL Creatinine 1.33 H (0.52-1.04) mg/dL Est GFR (CKD-EPI) (>=60) BUN/Creatinine Ratio (12.00-20.00) Ratio Glucose 249 H (74-99) mg/dL POC Glucose (mg/dL) (70-110) mg/dL Calcium 7.2 L (8.4-10.2) mg/dL Magnesium (1.5-2.4) mg/dL AST 256 H (14-36) U/L ALT 193 H (4-34) U/L Alkaline Phosphatase 353 H (38-126) U/L Total Protein 4.5 L (6.3-8.2) g/dL Albumin 1.8 L (3.5-5.0) g/dL SARS-CoV-2 (PCR) (Not Detectd) Crossmatch 07/01/23 07/01/23 07/02/23 Range/Units 16:49 20:23 05:44 RBC (3.80-5.40) m/uL Hgb (11.4-16.0) gm/dL Hct (34.0-46.0) % MCV (80.0-100.0) fL MCHC (31.0-37.0) g/dL RDW (11.5-15.5) % Plt Count (150-450) k/uL Lymphocytes # (1.0-4.8) k/uL Eosinophils # (0.04-0.35) X 10*3/uL Macrocytosis PT (10.0-12.5) sec INR (<1.2) Sodium (137-145) mmol/L Potassium (3.5-5.1) mmol/L Carbon Dioxide (22-30) mmol/L BUN (7-17) mg/dL Creatinine (0.52-1.04) mg/dL Est GFR (CKD-EPI) (>=60) BUN/Creatinine Ratio (12.00-20.00) Ratio Glucose (74-99) mg/dL POC Glucose (mg/dL) 239 H 191 H 111 H (70-110) mg/dL Calcium (8.4-10.2) mg/dL Magnesium (1.5-2.4) mg/dL AST (14-36) U/L ALT (4-34) U/L Alkaline Phosphatase (38-126) U/L Total Protein (6.3-8.2) g/dL Albumin (3.5-5.0) g/dL SARS-CoV-2 (PCR) (Not Detectd) Crossmatch 07/02/23 07/02/23 07/02/23 Range/Units 06:00 06:00 06:00 RBC 2.23 L (3.80-5.40) m/uL Hgb 6.9 A* (11.4-16.0) gm/dL Hct 23.3 L (34.0-46.0) % MCV 104.5 H (80.0-100.0) fL MCHC 29.6 L (31.0-37.0) g/dL RDW 17.8 H (11.5-15.5) % Plt Count 113 L (150-450) k/uL Lymphocytes # 0.34 L (1.0-4.8) k/uL Eosinophils # 0.01 L (0.04-0.35) X 10*3/uL Macrocytosis PT 22.7 H (10.0-12.5) sec INR 2.3 H (<1.2) Sodium (137-145) mmol/L Potassium (3.5-5.1) mmol/L Carbon Dioxide (22-30) mmol/L BUN 57.8 H (7-17) mg/dL Creatinine (0.52-1.04) mg/dL Est GFR (CKD-EPI) 38 L (>=60) BUN/Creatinine Ratio 41.29 H (12.00-20.00) Ratio Glucose (74-99) mg/dL POC Glucose (mg/dL) (70-110) mg/dL Calcium 7.7 L (8.4-10.2) mg/dL Magnesium 2.5 H (1.5-2.4) mg/dL AST (14-36) U/L ALT (4-34) U/L Alkaline Phosphatase (38-126) U/L Total Protein (6.3-8.2) g/dL Albumin (3.5-5.0) g/dL SARS-CoV-2 (PCR) (Not Detectd) Crossmatch 07/02/23 07/02/23 Range/Units 10:49 10:56 RBC (3.80-5.40) m/uL Hgb (11.4-16.0) gm/dL Hct (34.0-46.0) % MCV (80.0-100.0) fL MCHC (31.0-37.0) g/dL RDW (11.5-15.5) % Plt Count (150-450) k/uL Lymphocytes # (1.0-4.8) k/uL Eosinophils # (0.04-0.35) X 10*3/uL Macrocytosis PT (10.0-12.5) sec INR (<1.2) Sodium (137-145) mmol/L Potassium (3.5-5.1) mmol/L Carbon Dioxide (22-30) mmol/L BUN (7-17) mg/dL Creatinine (0.52-1.04) mg/dL Est GFR (CKD-EPI) (>=60) BUN/Creatinine Ratio (12.00-20.00) Ratio Glucose (74-99) mg/dL POC Glucose (mg/dL) (70-110) mg/dL Calcium (8.4-10.2) mg/dL Magnesium (1.5-2.4) mg/dL AST (14-36) U/L ALT (4-34) U/L Alkaline Phosphatase (38-126) U/L Total Protein (6.3-8.2) g/dL Albumin (3.5-5.0) g/dL SARS-CoV-2 (PCR) Detected A (Not Detectd) Crossmatch See Detail Microbiology - Last 24 Hours (Table) 06/29/23 02:35 Blood Culture - Preliminary Blood 06/29/23 02:20 Blood Culture - Preliminary Blood Assessment and Plan Time with Patient: Less than 30
--- NOTE | 2023-07-03 00:24 | CT ---
EXAMINATION TYPE: CT abdomen pelvis wo con CT DLP: 431.3 mGycm, Automated exposure control for dose reduction was used. DATE OF EXAM: 07/02/2023 7:49 PM COMPARISON: None. CLINICAL INDICATION:Female, 82 years old with history of left lower quardant tenderness; left lower q uardant tenderness TECHNIQUE: Axial CT of the abdomen and pelvis. Sagittal and coronal reformats were created on a [employer] workstation. Contrast used: mL of , (none if empty) Oral contrast used: with Oral Contrast (none if empty) FINDINGS: Exam is limited without contrast. LOWER CHEST: Heart is moderately enlarged with a small amount of pericardial fluid noted. Heavy carlitos l valve calcifications. Mild aortic valve calcifications. There are moderate to severe consolidations or infiltrates in the visualized lower lungs. There is di ffuse bronchial wall thickening and small pleural effusions suggested. ABDOMEN LIVER: Unremarkable GALLBLADDER AND BILE DUCTS: Small calcified gallstone is present. Gallbladder is moderately distended . No significant biliary dilatation is seen. PANCREAS: Unremarkable. SPLEEN: Normal size with a couple calcified granulomas. Rounded peripherally calcified small density in the splenic hilum may relate to splenic artery aneurysm. ADRENAL GLANDS: Unremarkable. KIDNEYS AND URETERS: No evidence of renal/ureteric calculi or hydronephrosis PELVIS BLADDER: . Bladder is partially decompressed, contains a Caldwell balloon and catheter tip. Moderate krissy unt of gas is also seen within the anterior aspect of the bladder lumen, likely related to Caldwell. REPRODUCTIVE: Uterus appears anteverted, not well assessed by this exam. No pelvic mass is suggested. ABDOMEN & PELVIS STOMACH AND BOWEL: There is enteric contrast seen within the stomach with questionable mild wall thic kening of the proximal stomach and distal esophagus. Contrast has traversed the duodenum and there is contrast seen in multiple loops of jejunum and ileum without evidence of obstruction. The appendix i s not seen with certainty but no inflammatory process seen in the pericecal region. Moderate stool th roughout the colon. Multiple sigmoid region diverticula without clear evidence of diverticulitis. PERITONEUM/RETROPERITONEUM: No free fluid or free air in the abdomen. There is a small amount of fr ee fluid in the pelvis. There is also some fluid seen in the presacral space VASCULATURE: Moderate atherosclerotic calcifications are present throughout the abdominal aorta and i ts branches. No evidence of aortic aneurysm. LYMPH NODES: No enlarged nodes by CT size criteria.. SOFT TISSUE/ABDOMINAL WALL: Mild/moderate generalized body wall edema suggesting anasarca. There is l enticular enlargement of the left rectus abdominis muscle, reaching up to 6.8 x 2.6 cm axially and ex tends craniocaudally about 12 cm. MUSCULOSKELETAL: No acute osseous abnormalities. Moderate disc degeneration changes are present throu ghout the thoracolumbar spine. Moderate anterior wedge compression deformity of T12 with mild retrop ulsion posteriorly along the superior and posterior aspects, appears generally similar to previous. IMPRESSION: 1. Lenticular expansile appearance of the left abdominal rectus muscle, compatible with rectus hemat ashwin. Clinical correlation and follow-up advised. 2. Moderate cardiomegaly. Moderate to severe diffuse opacities in the imaged lungs, could be due to edema, atelectasis, and/or infection. 3. Other chronic and likely incidental findings, as described above.
[2023-07-03 06:25] LABS: Glucose,Whole Blood 98 mg/dL (70-110)
[2023-07-03 06:30] LABS: INR 1.3 (<1.2); Prothrombin Time 13.9 sec (10.0-12.5)
[2023-07-03 06:37] LABS: ALT 235 U/L (4-34); AST 292 U/L (14-36); African American GFR (CKD) 37 (>60 ml/min/1.73 sqM); Albumin 1.9 g/dL (3.5-5.0); Albumin/Globulin Ratio 0.7; Alkaline Phosphatase 294 U/L (38-126); Anion Gap 1 mmol/L; Blood Urea Nitrogen 57 mg/dL (7-17); Calcium 7.6 mg/dL (8.4-10.2); Carbon Dioxide 30 mmol/L (22-30); Chloride 99 mmol/L (98-107); Globulin 2.8 g/dL; Glucose 87 mg/dL (74-99); Magnesium 2.3 mg/dL (1.6-2.3); Non-African American GFR(CKD) 32 (>60 ml/min/1.73 sqM); Potassium 4.6 mmol/L (3.5-5.1); Sodium 130 mmol/L (137-145); Total Bilirubin 1.1 mg/dL (0.2-1.3); Total Protein 4.7 g/dL (6.3-8.2)
[2023-07-03 09:24] LABS: Basophils # (A) 0.02 X 10*3/uL (0.00-0.10); Basophils % (A) 0.4 %; Eosinophils # (A) 0.02 X 10*3/uL (0.04-0.35); Eosinophils % (A) 0.4 %; HCT 27.1 % (37.2-46.3); HGB 8.7 g/dL (12.0-15.0); Lymphocytes # (A) 0.42 X 10*3/uL (0.90-5.00); Lymphocytes % (A) 9.3 %; MCH 30.6 pg (27.0-32.0); MCHC 32.1 g/dL (32.0-37.0); MCV 95.4 FL (80.0-97.0); Mean Platelet Volume 11.4 FL (9.5-12.2); Monocytes # (A) 0.28 X 10*3/uL (0.20-1.00); Monocytes % (A) 6.2 %; NRBC Per 100 WBC 0 X 10*3/uL (0.00-0.01); Neutrophils # (A) 3.73 X 10*3/uL (1.80-7.70); Neutrophils % (A) 82.6 %; Platelet Count 110 X 10*3/uL (140-440); RBC 2.84 X 10*6/uL (4.10-5.20); RBC Morphology Normal (Normal); RDW 19.2 % (11.5-14.5); WBC 4.52 X 10*3/uL (4.50-10.00)
--- NOTE | 2023-07-03 11:23 | XR ---
EXAMINATION TYPE: XR ankle complete LT DATE OF EXAM: 07/03/2023 COMPARISON: NONE HISTORY: Pain TECHNIQUE: 3 views of the left ankle are submitted for evaluation. FINDINGS: There is no evidence for fracture or dislocation. Ankle mortise is intact. Mild soft tissue swelling noted. IMPRESSION: 1. No evidence for acute fracture.
[2023-07-03 11:39] LABS: Glucose,Whole Blood 152 mg/dL (70-110)
--- NOTE | 2023-07-03 12:00 | P.PN ---
Subjective Patient is seen in follow-up for acute kidney injury. Renal function fairly stable. Hemoglobin improved post blood transfusion. No active bleeding. Oral intake poor. Nonoliguric. Denies chest pain or shortness of breath. Vital signs are stable. General: No acute distress. HEENT: Head exam is unremarkable. On nasal cannula. LUNGS: No audible rhonchi or wheezes. HEART: Rate and Rhythm are regular. ABDOMEN: Nontender. EXTREMITITES: No edema. Objective - Vital Signs Vital signs: Vital Signs Temp 97.6 F 07/03/23 07:22 Pulse 79 07/03/23 09:02 Resp 17 07/03/23 08:00 BP 105/55 07/03/23 07:22 Pulse Ox 97 07/03/23 08:50 FiO2 50 06/29/23 18:30 Intake & Output 07/02/23 07/03/23 07/03/23 18:59 06:59 18:59 Intake Total 310 480 50 Output Total 800 Balance 310 -320 50 Weight 53.5 kg Intake: Intake, IV Titration 50 Amount Cefepime 1 gm In Sodium 50 Chloride 0.9% 50 ml @ 12. 5 mls/hr IVPB Q12HR [facility] Rx#:[id number] Oral 480 Blood Product 310 Rc As-1 Unit 310 [id number] Output: Urine 800 Other: Voiding Method Indwelling Catheter Indwelling Catheter Indwelling Catheter # Bowel Movements 1 7 1 - Labs CBC & Chem 7: 07/03/23 05:39 07/03/23 05:39 Labs: Abnormal Lab Results - Last 24 Hours (Table) 07/02/23 07/02/23 07/02/23 Range/Units 06:00 10:49 10:56 RBC (4.10-5.20) X 10*6/uL Hgb (12.0-15.0) g/dL Hct (37.2-46.3) % RDW (11.5-14.5) % Plt Count (140-440) X 10*3/uL Immature Gran # (0.00-0.04) X 10*3/uL Lymphocytes # (0.90-5.00) X 10*3/uL Eosinophils # (0.04-0.35) X 10*3/uL PT (10.0-12.5) sec INR (<1.2) Sodium (137-145) mmol/L BUN (7-17) mg/dL Creatinine (0.52-1.04) mg/dL POC Glucose (mg/dL) (70-110) mg/dL Calcium (8.4-10.2) mg/dL Iron 24 L (50-170) UG/DL TIBC 155 L (228-460) UG/DL Transferrin 111.0 L (204.0-354.0) mg/dL Ferritin 836.0 H (10.0-291.0) ng/mL AST (14-36) U/L ALT (4-34) U/L Alkaline Phosphatase (38-126) U/L Total Protein (6.3-8.2) g/dL Albumin (3.5-5.0) g/dL SARS-CoV-2 (PCR) Detected A (Not Detectd) Crossmatch See Detail 07/02/23 07/02/23 07/03/23 Range/Units 16:43 21:35 05:39 RBC (4.10-5.20) X 10*6/uL Hgb (12.0-15.0) g/dL Hct (37.2-46.3) % RDW (11.5-14.5) % Plt Count (140-440) X 10*3/uL Immature Gran # (0.00-0.04) X 10*3/uL Lymphocytes # (0.90-5.00) X 10*3/uL Eosinophils # (0.04-0.35) X 10*3/uL PT (10.0-12.5) sec INR (<1.2) Sodium 130 L (137-145) mmol/L BUN 57 H (7-17) mg/dL Creatinine 1.53 H (0.52-1.04) mg/dL POC Glucose (mg/dL) 196 H 160 H (70-110) mg/dL Calcium 7.6 L (8.4-10.2) mg/dL Iron (50-170) UG/DL TIBC (228-460) UG/DL Transferrin (204.0-354.0) mg/dL Ferritin (10.0-291.0) ng/mL AST 292 H (14-36) U/L ALT 235 H (4-34) U/L Alkaline Phosphatase 294 H (38-126) U/L Total Protein 4.7 L (6.3-8.2) g/dL Albumin 1.9 L (3.5-5.0) g/dL SARS-CoV-2 (PCR) (Not Detectd) Crossmatch 07/03/23 07/03/23 07/03/23 Range/Units 05:39 05:39 11:37 RBC 2.84 L (4.10-5.20) X 10*6/uL Hgb 8.7 L (12.0-15.0) g/dL Hct 27.1 L (37.2-46.3) % RDW 19.2 H (11.5-14.5) % Plt Count 110 L (140-440) X 10*3/uL Immature Gran # 0.05 H (0.00-0.04) X 10*3/uL Lymphocytes # 0.42 L (0.90-5.00) X 10*3/uL Eosinophils # 0.02 L (0.04-0.35) X 10*3/uL PT 13.9 H (10.0-12.5) sec INR 1.3 H (<1.2) Sodium (137-145) mmol/L BUN (7-17) mg/dL Creatinine (0.52-1.04) mg/dL POC Glucose (mg/dL) 152 H (70-110) mg/dL Calcium (8.4-10.2) mg/dL Iron (50-170) UG/DL TIBC (228-460) UG/DL Transferrin (204.0-354.0) mg/dL Ferritin (10.0-291.0) ng/mL AST (14-36) U/L ALT (4-34) U/L Alkaline Phosphatase (38-126) U/L Total Protein (6.3-8.2) g/dL Albumin (3.5-5.0) g/dL SARS-CoV-2 (PCR) (Not Detectd) Crossmatch Microbiology - Last 24 Hours (Table) 07/02/23 01:30 Nasal Screen MRSA/MSSA - Final Nasal Swab 06/29/23 02:35 Blood Culture - Preliminary Blood 06/29/23 02:20 Blood Culture - Preliminary Blood Assessment and Plan Plan: Assessment: 1. Acute kidney injury secondary to ATN secondary to severe sepsis. Was also on Bactrim prior to admission. No hydronephrosis noted on kidney ultrasound. Creatinine 1.7 on admission and fairly stable at 1.53 today. Now on lasix. 2. Chronic diastolic CHF with severe pulmonary hypertension, mild to moderate aortic stenosis, moderate aortic regurgitation, severe mitral stenosis. 3. Hyperkalemia secondary to acute kidney injury on Bactrim. Improved. 4. Mild volume overload. On Lasix. 5. Acute blood loss anemia. Status post blood transfusion this admission. Better. 6. Hyponatremia from poor solute intake. Hypervolemic. 7. Acute COVID infection. Plan: Maintain oral Lasix. Encouraged oral intake. Add 1500 cc fluid restriction. Add IV iron. Avoid nephrotoxins. Continue to monitor renal function and urine output.
[2023-07-03] MEDS: SODIUM FERRIC GLUCONAT-SUCROSE 125 MG in SODIUM CHLORIDE 0.9% 100 ML IVPB SCH (13:15)
--- NOTE | 2023-07-03 15:09 | P.PN ---
Subjective Progress Note Date: 07/03/23 This is an 82-year-old female, familiar to my service, patient was recently in the hospital with acute COVID-19 pneumonia, congestive heart failure, atrial fibrillation with RVR, possible underlying interstitial lung disease, patient was discharged on 06/26/2023, pulmonary service has seen this patient initially on 06/09/2023, at that time the patient was admitted with acute hypoxic respiratory failure, acute COVID-19 pneumonia, chronic bronchial asthma, and possible hospital-acquired pneumonia. In addition the patient had mild intermittent asthma, congestive heart failure, severe mitral calcification and moderate to severe mitral stenosis with preserved LV function and preserved ejection fraction. She also has history of rheumatoid arthritis, hypothyroidism, and lifelong non-smoker. We saw this patient last on 06/26/2023,, she was on 2 L nasal cannula, her labs were unremarkable, her sputum cultures were nondiagnostic, blood cultures were nondiagnostic, she had relatively normal renal profile, and she was at the time on warfarin, Symbicort, Singulair and albuterol. Patient was discharged to the [facility] on the [place]. Patient was discharged on amiodarone, Coumadin, prednisone 20 mg daily, Lopressor, and nystatin swish and swallow. Otherwise the patient was kept on her usual medications including Symbicort, Jardiance, levothyroxine, Singulair, Fosamax, ascorbic acid, atorvastatin, Lasix 40 mg p.o. daily, and Xanax. As well as albuterol. Patient was sent from the [facility] down to the ER today mostly because of low O2 saturation, and patient was noted to have some shortness of breath. Chest x-ray on this admission showed cardiomegaly and mild pulmonary vascular congestion, no clear-cut evidence of pneumonia. As a matter fact her chest x-ray shows significant improvement compared to her initial chest x-ray on her last admission. In addition to her shortness of breath, patient was noted to have abnormal labs with a potassium of 6.2, her BUN is 79 and creatinine 1.71. Patient was also noted to have elevated BNP level of 27,000 and troponin leak. ABG on 50% FiO2 showed a pO2 of 69 pCO2 48 pH of 7.54. Patient is now on 3 L nasal cannula, seems to be comfortable, not in distress. Seen by nephrology for her acute kidney injury, ATN, hyperkalemia with acute kidney injury and apparently the patient was on Bactrim and the recommendation by nephrology was to continue with IV fluids, IV antibiotics, and repeat labs in AM. Patient has a very poor urine output, I did recommend a fluid bolus of 500 cc of saline while in the ER, blood pressure is marginal. Considering her marginal low blood pressure, I am recommending that the patient goes to the ICU. Nephrology is addressing her abnormal renal profile and hyperkalemia The patient is seen today June 30, 2023 in follow-up in the emergency department. She is currently sitting up in the stretcher. Awake and alert in no acute distress. Doing quite a bit better today compared to yesterday. Tolerating a clear liquid breakfast. Maintaining O2 saturations in the upper 90s on 6 L/min per nasal cannula. She has been afebrile. Hemodynamically stable. X-ray reveals some diffuse hazy and patchy bilateral airspace disease. Blood cultures are pending. White count 19.8. Hemoglobin 8.6. Platelets 210. Sodium 135. Potassium 4.4. Bicarb 32. BUN 70. Creatinine 1.21. Glucose 149. AST 250. ALT 242. Alk phos 403. Echocardiogram reveals a hyperdynamic LV with a EF around 70%. There is severe mitral stenosis and moderate aortic stenosis. Severe pulmonary hypertension with an RVSP exceeding 50 mmHg. She is continued on DuoNeb ventilations, IV diuretics, antibiotics in the form of vancomycin and cefepime. Procalcitonin pending. The patient is seen today July 01, 2023 in follow-up on the regular medical floor. She is currently sitting up in bed. Awake and alert in no acute distress. She is maintaining O2 saturations in the 90s on 6 L high flow nasal cannula. Her procalcitonin was 1.16. She remains on cefepime and vancomycin. Cultures are pending. Creatinine 1.18. Glucose 121. INR 6.4. She remains on bronchodilators, oral diuretics, anticoagulated with warfarin. The patient is seen today July 02, 2023 in follow-up on the regular medical floor. She is currently resting in bed. Awake and alert in no acute distress. She is maintaining good O2 saturations up to 100% on 6 L/min per nasal cannula. She is afebrile. Hemodynamically stable. Ultrasound of the abdomen reveals hepatic steatosis with ascites adjacent to the liver. Echogenic material within the gallbladder lumen with masslike appearance. Borderline gallbladder wall thickening. Hemoglobin 6.9. She is receiving 1 unit of packed red blood cells. Platelets 113. White count 4.7. INR 2.3. Sodium 135. Potassium 5.3. Bicarb 29. BUN 58. Creatinine 1.4. Glucose 103. She is continued on DuoNeb inh alations, cefepime and vancomycin. Remains on oral diuretics. The patient is seen today July 03, 2023 in follow-up on the regular medical floor. She is awake and alert in no acute distress. Sitting up in bed. Denies any worsening shortness of breath, cough or congestion. She is down to 2 L/min per nasal cannula. No IV fluids. She is continued on Maxipime and vancomycin. CT scan of the abdomen and pelvis reveals a left rectus hematoma. Moderate cardiomegaly. Moderate to severe diffuse opacities in the lungs could be due to edema atelectasis or infection. Chronic and likely incidental findings. X-ray of the left ankle reveals no evidence of acute fracture. Status post 1 unit of packed red blood cells this admission. Current hemoglobin 8.7. White count 4.5. Platelets 110. Sodium 130. Potassium 4.6. Bicarb 30. BUN 57. Creatinine 1.53. Glucose 87. AST 292. ALT 235. Vancomycin trough 18.0. She remains on DuoNeb inhalations. Oral diuretics. Receiving iron supplements. Objective - Vital Signs Vital signs: Vital Signs Temp 97.7 F 07/03/23 14:27 Pulse 69 07/03/23 14:27 Resp 17 07/03/23 14:27 BP 112/57 07/03/23 14:27 Pulse Ox 100 07/03/23 14:27 FiO2 50 06/29/23 18:30 Intake & Output 07/02/23 07/03/23 07/03/23 18:59 06:59 18:59 Intake Total 310 480 50 Output Total 800 Balance 310 -320 50 Weight 53.5 kg Intake: Intake, IV Titration 50 Amount Cefepime 1 gm In Sodium 50 Chloride 0.9% 50 ml @ 12. 5 mls/hr IVPB Q12HR [facility] Rx#:[id number] Oral 480 Blood Product 310 Rc As-1 Unit 310 [id number] Output: Urine 800 Other: Voiding Method Indwelling Catheter Indwelling Catheter Indwelling Catheter # Bowel Movements 1 7 1 - Exam GENERAL EXAM: Alert, frail, weak 82-year-old female, resting in bed, on 2 L nasal cannula, in no apparent distress. HEAD: Normocephalic. EYES: Normal reaction of pupils, equal size. NOSE: Clear with pink turbinates. THROAT: No erythema or exudates. NECK: No masses, no JVD. CHEST: No chest wall deformity. LUNGS: Equal air entry with crackles in the bilateral bases. CVS: S1 and S2 normal with no audible murmur, regular rhythm. ABDOMEN: No hepatosplenomegaly, normal bowel sounds, no guarding or rigidity. SPINE: No scoliosis or deformity SKIN: No rashes CENTRAL NERVOUS SYSTEM: No focal deficits, tone is normal in all 4 extremities. EXTREMITIES: There is no peripheral edema. No clubbing, no cyanosis. Peripheral pulses are intact. - Labs CBC & Chem 7: 07/03/23 05:39 07/03/23 05:39 Labs: Abnormal Lab Results - Last 24 Hours (Table) 07/02/23 07/02/23 07/02/23 Range/Units 10:49 16:43 21:35 RBC (4.10-5.20) X 10*6/uL Hgb (12.0-15.0) g/dL Hct (37.2-46.3) % RDW (11.5-14.5) % Plt Count (140-440) X 10*3/uL Immature Gran # (0.00-0.04) X 10*3/uL Lymphocytes # (0.90-5.00) X 10*3/uL Eosinophils # (0.04-0.35) X 10*3/uL PT (10.0-12.5) sec INR (<1.2) Sodium (137-145) mmol/L BUN (7-17) mg/dL Creatinine (0.52-1.04) mg/dL POC Glucose (mg/dL) 196 H 160 H (70-110) mg/dL Calcium (8.4-10.2) mg/dL AST (14-36) U/L ALT (4-34) U/L Alkaline Phosphatase (38-126) U/L Total Protein (6.3-8.2) g/dL Albumin (3.5-5.0) g/dL Crossmatch See Detail 07/03/23 07/03/23 07/03/23 Range/Units 05:39 05:39 05:39 RBC 2.84 L (4.10-5.20) X 10*6/uL Hgb 8.7 L (12.0-15.0) g/dL Hct 27.1 L (37.2-46.3) % RDW 19.2 H (11.5-14.5) % Plt Count 110 L (140-440) X 10*3/uL Immature Gran # 0.05 H (0.00-0.04) X 10*3/uL Lymphocytes # 0.42 L (0.90-5.00) X 10*3/uL Eosinophils # 0.02 L (0.04-0.35) X 10*3/uL PT 13.9 H (10.0-12.5) sec INR 1.3 H (<1.2) Sodium 130 L (137-145) mmol/L BUN 57 H (7-17) mg/dL Creatinine 1.53 H (0.52-1.04) mg/dL POC Glucose (mg/dL) (70-110) mg/dL Calcium 7.6 L (8.4-10.2) mg/dL AST 292 H (14-36) U/L ALT 235 H (4-34) U/L Alkaline Phosphatase 294 H (38-126) U/L Total Protein 4.7 L (6.3-8.2) g/dL Albumin 1.9 L (3.5-5.0) g/dL Crossmatch 07/03/23 Range/Units 11:37 RBC (4.10-5.20) X 10*6/uL Hgb (12.0-15.0) g/dL Hct (37.2-46.3) % RDW (11.5-14.5) % Plt Count (140-440) X 10*3/uL Immature Gran # (0.00-0.04) X 10*3/uL Lymphocytes # (0.90-5.00) X 10*3/uL Eosinophils # (0.04-0.35) X 10*3/uL PT (10.0-12.5) sec INR (<1.2) Sodium (137-145) mmol/L BUN (7-17) mg/dL Creatinine (0.52-1.04) mg/dL POC Glucose (mg/dL) 152 H (70-110) mg/dL Calcium (8.4-10.2) mg/dL AST (14-36) U/L ALT (4-34) U/L Alkaline Phosphatase (38-126) U/L Total Protein (6.3-8.2) g/dL Albumin (3.5-5.0) g/dL Crossmatch Microbiology - Last 24 Hours (Table) 07/02/23 01:30 Nasal Screen MRSA/MSSA - Final Nasal Swab 06/29/23 02:35 Blood Culture - Preliminary Blood 06/29/23 02:20 Blood Culture - Preliminary Blood Assessment and Plan Assessment: Acute on chronic hypoxic respiratory failure, multifactorial Acute on chronic congestive heart failure with preserved ejection fraction hyperdynamic LV with an ejection fraction of 70% Acute anemia with a hemoglobin of 6.9, received 1 unit of packed red blood cells, current hemoglobin 8.7 Echogenic material within the gallbladder lumen with masslike appearance. Borderline gallbladder thickening Hepatic steatosis with ascites adjacent to the liver suspected Severe mitral stenosis Mild to moderate aortic stenosis Severe pulmonary hypertension with RVSP exceeding 50 mmHg History of COVID-19 pneumonia and healthcare acquired pneumonia, patient was treated with remdesivir on the last admission History of rheumatoid arthritis and possibly some component of interstitial lung disease Severe mitral valve disease with severe mitral stenosis, and mild aortic regurgitation and stenosis. History of rheumatoid arthritis Hypothyroidism Lifelong non-smoker Mild intermittent asthma Acute kidney injury/ATN Acute hyperkalemia secondary to acute kidney injury, patient had recent treatment with Bactrim for a UTI. Pyuria, UTI, possible sepsis from urinary tract infection Plan: The patient was seen and evaluated Labs and medications reviewed CT scan of the abdomen reviewed X-ray of the left ankle reviewed Currently stable and on 2 L nasal cannula Titrate down the FiO2 as tolerated Continued on antibiotics Continued diuretics Prognosis remains guarded Plan is for subacute versus inpatient rehabilitation at charge I have personally seen and examined the patient, performed the documentation and the assessment and plan as written. Number of minutes spent on the visit: 10.
--- NOTE | 2023-07-03 15:16 | P.GSCN ---
History of Present Illness Consult date: 07/03/23 History of present illness: CHIEF COMPLAINT: Shortness of breath HISTORY OF PRESENT ILLNESS: This is a 82-year-old female who presented with worsening shortness of breath. She is diagnosed with CHF exacerbation, COPD exacerbation and COVID infection. Patient was complaining of abdominal pain and had a CT scan abdomen and pelvis that revealed a rectus sheath hematoma on the left. Patient does have bruising along the lower suprapubic area and along the left lower flank. Patient does take Coumadin at home. She denies any injury to the abdomen. She does report having a mild cough. Her INR was 6.4 on admission now down to 1.3. Hemoglobin is currently 8.7 after she received a unit of blood for hemoglobin of 6.9. PAST MEDICAL HISTORY: Heart Failure, Hyperlipidemia, Hypertension, Mitral Valve Prolapse (MVP), Rheumatoid Arthritis (RA), Thyroid Disorder PAST SURGICAL HISTORY: Section, Orthopedic Surgery MEDICATIONS: See below ALLERGIES: See below SOCIAL HISTORY: No illicit drug use. REVIEW OF SYSTEMS: CONSTITUTIONAL: Denies fever or chills. HEENT: Denies blurred vision, vision changes, or eye pain. Denies hemoptysis CARDIOVASCULAR: Denies chest pain or pressure. RESPIRATORY: No shortness of breath. GASTROINTESTINAL: See HPI for pertinent findings HEMATOLOGIC: Denies bleeding disorders. GENITOURINARY: Denies any blood in urine or increased urinary frequency. SKIN: Denies pruitis. Denies rash. PHYSICAL EXAM: VITAL SIGNS: Reviewed GENERAL: Well-developed in no acute distress. HEENT: No sclera icterus. Extraocular movements grossly intact. Moist buccal mucosa. Head is atraumatic, normocephalic. No nasal drainage. ABDOMEN: Soft. Nondistended. Patient does have tenderness suprapubic area. There is ecchymosis noted to the suprapubic left lower quadrant and left lower flank that wraps around towards the back. NEUROLOGIC: Alert and oriented. Cranial nerves II through XII grossly intact. LABORATORY DATA: WBC 4.52 Hgb 10.5 on admission down to 6.9. Currently 8.7 after unit of blood platelets 110 INR 6.4 down to 1.3 Sodium is 130 potassium is 4.6 creatinine 1.53 Total bili 1.1 AST 292 ALT 235 alk phos 294 COVID-19 detected. IMAGING: CT scan abdomen and pelvis reporting left abdominal rectus sheath hematoma measuring 6.8 x 2.6 cm axially and extends craniocaudally up to 12 cm. Gallbladder ultrasound reports hepatic steatosis with ascites adjacent to the liver suspected. Echogenic material within the gallbladder lumen with masslike appearance. Borderline gallbladder wall thickening. ASSESSMENT: 1. Left abdominal rectus sheath hematoma 2. Coumadin toxicity 3. Echogenic material within the gallbladder lumen with masslike appearance and borderline gallbladder wall thickening noted on ultrasound 4. Elevated LFTs 5. Hepatic steatosis 6. COVID positive 7. Acute blood loss anemia due to rectus sheath hematoma. status post blood transfusion PLAN: -No surgical intervention planned for the rectus sheath hematoma. Continue to monitor hemoglobin. Continue to hold Coumadin -Continue regular diet -Repeat LFTs in a.m. Physician Access Manager note has been reviewed by physician. Signing provider agrees with the documented findings, assessment, and plan of care. Past Medical History Past Medical History: Heart Failure, Hyperlipidemia, Hypertension, Mitral Valve Prolapse (MVP), Rheumatoid Arthritis (RA), Thyroid Disorder Additional Past Medical History / Comment(s): HAD A PNE VACCINE AFTER AGE 67 BUT NOT SURE OF DATE,OFFICE CLOSED AT TIME OF THIS ADMIT. Last Myocardial Infarction Date:: History of Any Multi-Drug Resistant Organisms: None Reported Past Surgical History: Section, Orthopedic Surgery Additional Past Surgical History / Comment(s): total right knee replacement Past Anesthesia/Blood Transfusion Reactions: No Reported Reaction Additional Past Anesthesia/Blood Transfusion Reaction / Comm: clausterphobia Smoking Status: Never smoker - Past Family History Father Additional Family Medical History / Comment(s): smoker-had problems related to that Mother Additional Family Medical History / Comment(s): smoker-problems related to that Medications and Allergies Home Medications Medication Instructions Recorded Confirmed Type Budesonide-Formot 160-4.5 Mcg 2 puff INHALATION RT-BID #1 inhaler 04/06/16 06/29/23 Rx [Symbicort 160-4.5 Mcg Inhaler] Alendronate Sodium [Fosamax] 70 mg PO MO@0908/09/21 06/29/23 History Cholecalciferol [Vitamin D3 (25 50 mcg PO DAILY 08/09/21 06/29/23 History Mcg = 1000 Iu)] Levothyroxine Sodium [Synthroid] 112 mcg PO MOTUWETHFR@0600 08/09/21 06/29/23 History Montelukast [Singulair] 10 mg PO HS 08/09/21 06/29/23 History Acetaminophen [Tylenol Arthritis] 650 mg PO Q8HR PRN 03/19/22 06/29/23 History Empagliflozin [Jardiance] 10 mg PO DAILY 03/19/22 06/29/23 History Levothyroxine Sodium [Synthroid] 56 mcg PO SUSA@0600 03/19/22 06/29/23 History Aspirin 81 mg PO DAILY@0600 05/26/23 06/29/23 History Atorvastatin [Lipitor] 80 mg PO HS 05/26/23 06/29/23 History Calcium Carbonate [Calcium] 600 mg PO DAILY 05/26/23 06/29/23 History Furosemide [Lasix] 40 mg PO DAILY@0600 05/26/23 06/29/23 History Albuterol Inhaler [Ventolin Hfa 2 puff INHALATION RT-QID PRN #1 05/31/23 06/29/23 Rx Inhaler] each ALPRAZolam [Xanax] 0.25 mg PO Q8HR PRN 3 Days #9 tab 06/26/23 06/29/23 Rx Amiodarone [Cordarone] 400 mg PO BID tab 06/26/23 06/29/23 Rx Benzonatate [Tessalon Perles] 200 mg PO TID PRN cap 06/26/23 06/29/23 Rx Nystatin 100,000 Unit/ml Susp 5 ml PO QID 7 Days #140 ml 06/26/23 06/29/23 Rx [Mycostatin Oral Susp] Ascorbic Acid [Vitamin C] 1,000 mg PO DAILY 06/29/23 06/29/23 History INSULIN ASPART (NovoLOG) [NovoLOG See Protocol SQ ACHS 06/29/23 06/29/23 History (formulary)] Magnesium Oxide [Mag-Ox] 400 mg PO DAILY 06/29/23 06/29/23 History Metoprolol Tartrate [Lopressor] 50 mg PO Q12H 06/29/23 06/29/23 History Multivitamins, Thera [Multivitamin 1 tab PO DAILY 06/29/23 06/29/23 History (formulary)] Omeprazole Magnesium [PriLOSEC OTC] 20 mg PO HS 06/29/23 06/29/23 History Sulfamethox-Tmp 800-160Mg [Bactrim 1 tab PO BID 06/29/23 06/29/23 History DS 800-160 mg] Warfarin [Coumadin] 0.5 mg PO DAILY@1700 06/29/23 06/29/23 History Zinc Sulfate [Orazinc] 220 mg PO DAILY 06/29/23 06/29/23 History predniSONE See Taper PO DIRECTED 06/29/23 06/29/23 History Allergies Allergy/AdvReac Type Severity Reaction Status Date / Time clarithromycin [From Biaxin] Allergy Unknown Verified 06/29/23 08:45 gemifloxacin [From Factive] Allergy Unknown Verified 06/29/23 08:45 prednisone Allergy Unknown Verified 06/29/23 08:45 amoxicillin [From Augmentin] AdvReac Nausea & Verified 06/29/23 08:45 Vomiting & Diarrhea clavulanic acid AdvReac Nausea & Verified 06/29/23 08:45 [From Augmentin] Vomiting & Diarrhea Surgical - Exam Vital Signs Temp Pulse Resp BP Pulse Ox 97.5 F L 80 24 124/77 90 L 06/28/23 23:32 06/28/23 23:32 06/28/23 23:32 06/28/23 23:32 06/28/23 23:32 Results - Labs 07/03/23 05:39 07/03/23 05:39 Abnormal Lab Results - Last 24 Hours (Table) 07/02/23 07/02/23 07/02/23 Range/Units 10:49 16:43 21:35 RBC (4.10-5.20) X 10*6/uL Hgb (12.0-15.0) g/dL Hct (37.2-46.3) % RDW (11.5-14.5) % Plt Count (140-440) X 10*3/uL Immature Gran # (0.00-0.04) X 10*3/uL Lymphocytes # (0.90-5.00) X 10*3/uL Eosinophils # (0.04-0.35) X 10*3/uL PT (10.0-12.5) sec INR (<1.2) Sodium (137-145) mmol/L BUN (7-17) mg/dL Creatinine (0.52-1.04) mg/dL POC Glucose (mg/dL) 196 H 160 H (70-110) mg/dL Calcium (8.4-10.2) mg/dL AST (14-36) U/L ALT (4-34) U/L Alkaline Phosphatase (38-126) U/L Total Protein (6.3-8.2) g/dL Albumin (3.5-5.0) g/dL Crossmatch See Detail 07/03/23 07/03/23 07/03/23 Range/Units 05:39 05:39 05:39 RBC 2.84 L (4.10-5.20) X 10*6/uL Hgb 8.7 L (12.0-15.0) g/dL Hct 27.1 L (37.2-46.3) % RDW 19.2 H (11.5-14.5) % Plt Count 110 L (140-440) X 10*3/uL Immature Gran # 0.05 H (0.00-0.04) X 10*3/uL Lymphocytes # 0.42 L (0.90-5.00) X 10*3/uL Eosinophils # 0.02 L (0.04-0.35) X 10*3/uL PT 13.9 H (10.0-12.5) sec INR 1.3 H (<1.2) Sodium 130 L (137-145) mmol/L BUN 57 H (7-17) mg/dL Creatinine 1.53 H (0.52-1.04) mg/dL POC Glucose (mg/dL) (70-110) mg/dL Calcium 7.6 L (8.4-10.2) mg/dL AST 292 H (14-36) U/L ALT 235 H (4-34) U/L Alkaline Phosphatase 294 H (38-126) U/L Total Protein 4.7 L (6.3-8.2) g/dL Albumin 1.9 L (3.5-5.0) g/dL Crossmatch 07/03/23 Range/Units 11:37 RBC (4.10-5.20) X 10*6/uL Hgb (12.0-15.0) g/dL Hct (37.2-46.3) % RDW (11.5-14.5) % Plt Count (140-440) X 10*3/uL Immature Gran # (0.00-0.04) X 10*3/uL Lymphocytes # (0.90-5.00) X 10*3/uL Eosinophils # (0.04-0.35) X 10*3/uL PT (10.0-12.5) sec INR (<1.2) Sodium (137-145) mmol/L BUN (7-17) mg/dL Creatinine (0.52-1.04) mg/dL POC Glucose (mg/dL) 152 H (70-110) mg/dL Calcium (8.4-10.2) mg/dL AST (14-36) U/L ALT (4-34) U/L Alkaline Phosphatase (38-126) U/L Total Protein (6.3-8.2) g/dL Albumin (3.5-5.0) g/dL Crossmatch Microbiology - Last 24 Hours (Table) 07/02/23 01:30 Nasal Screen MRSA/MSSA - Final Nasal Swab 06/29/23 02:35 Blood Culture - Preliminary Blood 06/29/23 02:20 Blood Culture - Preliminary Blood Diabetes panel 07/03/23 Range/Units 05:39 Sodium 130 L (137-145) mmol/L Potassium 4.6 (3.5-5.1) mmol/L Chloride 99 (98-107) mmol/L Carbon Dioxide 30 (22-30) mmol/L BUN 57 H (7-17) mg/dL Creatinine 1.53 H (0.52-1.04) mg/dL Glucose 87 (74-99) mg/dL Calcium 7.6 L (8.4-10.2) mg/dL AST 292 H (14-36) U/L ALT 235 H (4-34) U/L Alkaline Phosphatase 294 H (38-126) U/L Total Protein 4.7 L (6.3-8.2) g/dL Albumin 1.9 L (3.5-5.0) g/dL Calcium panel 07/03/23 Range/Units 05:39 Calcium 7.6 L (8.4-10.2) mg/dL Albumin 1.9 L (3.5-5.0) g/dL Pituitary panel 07/03/23 Range/Units 05:39 Sodium 130 L (137-145) mmol/L Potassium 4.6 (3.5-5.1) mmol/L Chloride 99 (98-107) mmol/L Carbon Dioxide 30 (22-30) mmol/L BUN 57 H (7-17) mg/dL Creatinine 1.53 H (0.52-1.04) mg/dL Glucose 87 (74-99) mg/dL Calcium 7.6 L (8.4-10.2) mg/dL Adrenal panel 07/03/23 Range/Units 05:39 Sodium 130 L (137-145) mmol/L Potassium 4.6 (3.5-5.1) mmol/L Chloride 99 (98-107) mmol/L Carbon Dioxide 30 (22-30) mmol/L BUN 57 H (7-17) mg/dL Creatinine 1.53 H (0.52-1.04) mg/dL Glucose 87 (74-99) mg/dL Calcium 7.6 L (8.4-10.2) mg/dL Total Bilirubin 1.1 (0.2-1.3) mg/dL AST 292 H (14-36) U/L ALT 235 H (4-34) U/L Alkaline Phosphatase 294 H (38-126) U/L Total Protein 4.7 L (6.3-8.2) g/dL Albumin 1.9 L (3.5-5.0) g/dL
[2023-07-03 16:32] LABS: Glucose,Whole Blood 138 mg/dL (70-110)
[2023-07-03 20:23] LABS: Glucose,Whole Blood 189 mg/dL (70-110)
--- NOTE | 2023-07-03 20:40 | P.PN ---
Subjective Progress Note Date: 07/03/23 patient is a 82-year-old lady with past medical history significant for congestive heart failure, atrial fibrillation with RVR,presented to the ER because of worsening shortness of breath. Patient was only recently discharged on 06/25 after being treated in the hospital for similar complaints.after discha rge, patient was all right for 1 day but started noticing that she was getting more short of breath on exertion. Patient denied any chest pain. There was no complain of orthopnea or PND. There was no complain of swelling of feet. There was no complain of fever or chills. Patient oxygen requirements were also increasing so she was transferred back to the ER Initial lab work done in the ER showed WBC 28, hemoglobin 10.5, platelet count 332, INR 3.7, sodium 138, potassium 6.2, BUN 79, creatinine1.71, AST 378, ALT 350, troponin 0.247 EKG done in the ER showed heart rate of 81 , no ST segment elevation or depression seen, no T-wave inversions seen. Chest x-ray done in the ER showed cardiomegaly and moderate vascular congestion Patient admitted to internal medicine service 06/29. Patient seen and examined. Blood work done this morning showed WBC 19.8, hemoglobin 8.6, sodium 135, potassium 4.4, BUN 70, creatinine 1.21. Ox requirements have improved, currently on 6 L of oxygen. Patient is much more talkative compared to yesterday. Answering questions. 07/01/2023 Patient examined today in follow up. Remains on 6L of oxygen, more awake and alert. She continues on clear liquid diet which will be upgraded pending speech therapy recommendations as there is concern for aspiration. Indwelling catheter remains in place for urinary retention with concern for acute UTI which family feels was caused from the IDC placed prior to her previous discharge. She has been started on cefepime and vancomycin with concern for sepsis. White blood cell count has normalized to 5.7. Hemoglobin 7.1. INR 6.4 and warfarin remains on hold. Renal function stable. LFTs remain significantly elevated. 07/02/2023 Patient is evaluated today on the medical floor. Weaned down to 4L of oxygen. LFTs remain elevated. Gallbladder ultrasound completed revealing hepatic steatosis with ascites adjacent to the liver suspected. Echogenic materinal within the gallbladder lumen with masslike appearance. Borderline wall thickening. Hemoglobin 6.9 today. Patient will receive 1 unit of blood. Covid PCR positive. 07/03/2023 Patient continues to report feeling fatigued. Was able to be weaned down to 2L of oxygen. Does have visible bruising over the left abdomen. Had abdominal pelvis CT done today which reveals a 6.8 x 2.6 x 12 cm left abdominal rectus hematoma. INR has improved down to 1.2 and this will likely only need conservative management however general surgery was consulted. There is also mention of distended gallbladder although no mention of an acute cholecystitis, dilated ducted. Patient has consistently elevated LFTs this could be due to infection however general surgery recommending HIDA scan. Left ankle xray was completed due to the bruising and mild soft tissue swelling patient states this was injured end of March when she fell. There is no acute fracture noted and patient would benefit from icing and elevation as well as light compression. REVIEW OF SYSTEMS: CONSTITUTIONAL: No fever, no malaise,. CARDIOVASCULAR: No chest pain, no palpitations, no syncope. PULMONARY: No shortness of breath, no cough, GASTROINTESTINAL: No diarrhea, no nausea, no vomiting, no abdominal pain. NEUROLOGICAL: No headaches, no weakness, PHYSICAL EXAMINATION: GENERAL: The patient is alert and oriented x3, not in any acute distress. Ill looking HEENT: Pupils are round and equally reacting to light. EOMI. No scleral icterus. No conjunctival pallor. Normocephalic, atraumatic. No pharyngeal erythema. No thyromegaly. CARDIOVASCULAR: S1 and S2 present. Murmur audible in the mitral area PULMONARY: Coarse breath sound bilaterally, expiratory rhonchi audible ABDOMEN: Soft, nontender, nondistended, normoactive bowel sounds. No palpable organomegaly. abdominal bruising and swelling on left flank and suprapubic region. MUSCULOSKELETAL: No joint swelling or deformity. EXTREMITIES: No cyanosis, clubbing, or pedal edema. NEUROLOGICAL: Gross neurological examination did not reveal any focal deficits. Diffuse weakness. SKIN: No rashes. bruising to the left ankle. Assessment and plan Acute hypoxic respiratory failure on 4L family states patient does not wear oxygen usually Non-ST elevation NM Acute covid infection Acute on chronic diastolic heart failure Hyperkalemia normalized Anemia iron deficient with acute blood loss anemia from the left rectus sheath hematoma noted on abdominal pelvis CT. Left abdominal rectus sheath hematoma Acute kidney injury Acute transaminitis with concern for distended gallbladder with wall thickening/hepatic steatosis. Acute exacerbation of mild intermittent chronic bronchial asthma History of coronary artery disease with previous PCI/stent x3 History of hyperlipidemia History of hypertension Moderate to severe mitral calcification and moderate to severe mitral stenosis and mild aortic regurgitation and stenosis. Pulmonary hypertension WHO class II Rheumatoid arthritis History of hypothyroidism Lifelong non-smoker GI prophylaxis DVT prophylaxis warfarin remains held INR supratherapeutic Full Code Plan Continue oxygen supplementation Aggressive bronchopulmonary hygiene Avoid nephrotoxic agents Strict I's and O's, daily weights, transitioned to oral lasix Continue IV cefepime, ID following. Cultures pending. Covid PCR positive continue supportive care Wean oxygen as tolerated. On IV ferrlecit, status post 1 unit of PRBC. Hemoglobin improved. HIDA scan in the AM Coumadin has been held due to toxicity, INR currently 1.2. Remains on hold due to the anemia and rectus sheath hematoma. PT/OT following Repeat labs in the AM. The impression and plan of care has been dictated by Janel Darden, Nurse Practitioner as directed. Dr. Brent MD I have performed a history and physical examination and medical decision making of this patient, discussed the same with the dictator, and agree with the dictators assessment and plan as written, documented as a scribe. Based on total visit time, I have performed more than 50% of this visit. Objective - Vital Signs Vital signs: Vital Signs Temp 97.9 F 07/03/23 18:10 Pulse 72 07/03/23 18:10 Resp 16 07/03/23 18:10 BP 112/63 07/03/23 18:10 Pulse Ox 100 07/03/23 18:10 FiO2 50 06/29/23 18:30 Intake & Output 07/03/23 07/03/23 07/04/23 06:59 18:59 06:59 Intake Total 480 50 Output Total 800 300 Balance -320 -250 Weight 53.5 kg Intake: Intake, IV Titration 50 Amount Cefepime 1 gm In Sodium 50 Chloride 0.9% 50 ml @ 12. 5 mls/hr IVPB Q12HR [facility] Rx#:[id number] Oral 480 Output: Urine 800 300 Other: Voiding Method Indwelling Catheter Indwelling Catheter # Bowel Movements 7 1 - Labs CBC & Chem 7: 07/03/23 05:39 07/03/23 05:39 Labs: Abnormal Lab Results - Last 24 Hours (Table) 07/02/23 07/03/23 07/03/23 Range/Units 21:35 05:39 05:39 RBC (4.10-5.20) X 10*6/uL Hgb (12.0-15.0) g/dL Hct (37.2-46.3) % RDW (11.5-14.5) % Plt Count (140-440) X 10*3/uL Immature Gran # (0.00-0.04) X 10*3/uL Lymphocytes # (0.90-5.00) X 10*3/uL Eosinophils # (0.04-0.35) X 10*3/uL PT 13.9 H (10.0-12.5) sec INR 1.3 H (<1.2) Sodium 130 L (137-145) mmol/L BUN 57 H (7-17) mg/dL Creatinine 1.53 H (0.52-1.04) mg/dL POC Glucose (mg/dL) 160 H (70-110) mg/dL Calcium 7.6 L (8.4-10.2) mg/dL AST 292 H (14-36) U/L ALT 235 H (4-34) U/L Alkaline Phosphatase 294 H (38-126) U/L Total Protein 4.7 L (6.3-8.2) g/dL Albumin 1.9 L (3.5-5.0) g/dL 07/03/23 07/03/23 07/03/23 Range/Units 05:39 11:37 16:31 RBC 2.84 L (4.10-5.20) X 10*6/uL Hgb 8.7 L (12.0-15.0) g/dL Hct 27.1 L (37.2-46.3) % RDW 19.2 H (11.5-14.5) % Plt Count 110 L (140-440) X 10*3/uL Immature Gran # 0.05 H (0.00-0.04) X 10*3/uL Lymphocytes # 0.42 L (0.90-5.00) X 10*3/uL Eosinophils # 0.02 L (0.04-0.35) X 10*3/uL PT (10.0-12.5) sec INR (<1.2) Sodium (137-145) mmol/L BUN (7-17) mg/dL Creatinine (0.52-1.04) mg/dL POC Glucose (mg/dL) 152 H 138 H (70-110) mg/dL Calcium (8.4-10.2) mg/dL AST (14-36) U/L ALT (4-34) U/L Alkaline Phosphatase (38-126) U/L Total Protein (6.3-8.2) g/dL Albumin (3.5-5.0) g/dL 07/03/23 Range/Units 20:17 RBC (4.10-5.20) X 10*6/uL Hgb (12.0-15.0) g/dL Hct (37.2-46.3) % RDW (11.5-14.5) % Plt Count (140-440) X 10*3/uL Immature Gran # (0.00-0.04) X 10*3/uL Lymphocytes # (0.90-5.00) X 10*3/uL Eosinophils # (0.04-0.35) X 10*3/uL PT (10.0-12.5) sec INR (<1.2) Sodium (137-145) mmol/L BUN (7-17) mg/dL Creatinine (0.52-1.04) mg/dL POC Glucose (mg/dL) 189 H (70-110) mg/dL Calcium (8.4-10.2) mg/dL AST (14-36) U/L ALT (4-34) U/L Alkaline Phosphatase (38-126) U/L Total Protein (6.3-8.2) g/dL Albumin (3.5-5.0) g/dL Microbiology - Last 24 Hours (Table) 07/02/23 01:30 Nasal Screen MRSA/MSSA - Final Nasal Swab Assessment and Plan Time with Patient: Less than 30
[2023-07-04] MEDS: ALPRAZolam 0.25 MG TAB PO STA (06:05)
[2023-07-04 06:37] LABS: Glucose,Whole Blood 97 mg/dL (70-110)
[2023-07-04 07:33] LABS: Anisocytosis Slight; Basophils % (A) 0 %; Eosinophils % (A) 1 %; HCT 27.7 % (34.0-46.0); Hypochromasia Slight; Lymphocytes # (A) 0.5 k/uL (1.0-4.8); Lymphocytes % (A) 10 %; MCH 30.9 pg (25.0-35.0); MCHC 31.5 g/dL (31.0-37.0); Macrocytosis Slight; Mean Platelet Volume 8.8; Monocytes # (A) 0.2 k/uL (0-1.0); Monocytes % (A) 4 %; Neutrophils # (A) 3.8 k/uL (1.3-7.7); Neutrophils % (A) 84 %; Platelet Count 123 k/uL (150-450); RBC 2.83 m/uL (3.80-5.40); RDW 17.4 % (11.5-15.5); WBC 4.6 k/uL (3.8-10.6)
[2023-07-04 07:44] LABS: HGB 8.7 gm/dL (11.4-16.0)
[2023-07-04] MEDS: SODIUM CHLORIDE 0.9% 1,000 ML IV SCH (10:38)
--- NOTE | 2023-07-04 11:03 | P.PN ---
Subjective Patient is seen in follow-up for acute kidney injury. Renal function fairly stable as of yesterday. Hemoglobin improved post blood transfusion. No active bleeding. Oral intake poor. Nonoliguric. Denies chest pain or shortness of breath. Scheduled for cholecystectomy today. Vital signs are stable. General: No acute distress. HEENT: Head exam is unremarkable. On nasal cannula. LUNGS: No audible rhonchi or wheezes. HEART: Rate and Rhythm are regular. ABDOMEN: Nontender. EXTREMITITES: No edema. Objective - Vital Signs Vital signs: Vital Signs Temp 97.4 F L 07/04/23 08:56 Pulse 69 07/04/23 09:25 Resp 17 07/04/23 08:56 BP 106/52 07/04/23 08:56 Pulse Ox 95 07/04/23 09:16 FiO2 50 06/29/23 18:30 Intake & Output 07/03/23 07/04/23 07/04/23 18:59 06:59 18:59 Intake Total 50 Output Total 300 600 Balance -250 -600 Weight 53.5 kg Intake: Intake, IV Titration 50 Amount Cefepime 1 gm In Sodium 50 Chloride 0.9% 50 ml @ 12. 5 mls/hr IVPB Q12HR [facility] Rx#:[id number] Output: Urine 300 600 Other: Voiding Method Indwelling Catheter Indwelling Catheter # Bowel Movements 1 - Labs CBC & Chem 7: 07/04/23 06:49 07/03/23 05:39 Labs: Abnormal Lab Results - Last 24 Hours (Table) 07/03/23 07/03/23 07/03/23 Range/Units 11:37 16:31 20:17 RBC (3.80-5.40) m/uL Hgb (11.4-16.0) gm/dL Hct (34.0-46.0) % RDW (11.5-15.5) % Plt Count (150-450) k/uL Lymphocytes # (1.0-4.8) k/uL POC Glucose (mg/dL) 152 H 138 H 189 H (70-110) mg/dL 07/04/23 Range/Units 06:49 RBC 2.83 L (3.80-5.40) m/uL Hgb 8.7 L D (11.4-16.0) gm/dL Hct 27.7 L (34.0-46.0) % RDW 17.4 H (11.5-15.5) % Plt Count 123 L (150-450) k/uL Lymphocytes # 0.5 L (1.0-4.8) k/uL POC Glucose (mg/dL) (70-110) mg/dL Microbiology - Last 24 Hours (Table) 07/02/23 15:00 Urine Culture - Preliminary Urine,Catheterized 07/02/23 01:30 Nasal Screen MRSA/MSSA - Final Nasal Swab Assessment and Plan Plan: Assessment: 1. Acute kidney injury secondary to ATN secondary to severe sepsis. Was also on Bactrim prior to admission. No hydronephrosis noted on kidney ultrasound/CT. Creatinine 1.7 on admission and fairly stable at 1.53 yesterday. Now on lasix. 2. Chronic diastolic CHF with severe pulmonary hypertension, mild to moderate aortic stenosis, moderate aortic regurgitation, severe mitral stenosis. 3. Hyperkalemia secondary to acute kidney injury on Bactrim. Improved. 4. Mild volume overload. On Lasix. 5. Acute blood loss anemia. Status post blood transfusion this admission. Better. 6. Hyponatremia from poor solute intake. Hypervolemic. 7. Acute COVID infection. 8. Left abdominal rectus sheath hematoma. Surgery following. Plan: Maintain oral Lasix. Encouraged oral intake. Maintain 1500 cc fluid restriction. Maintain IV iron. Avoid nephrotoxins. Continue to monitor renal function and urine output.
[2023-07-04 11:12] LABS: ALT 214 U/L (8-44); AST 211 U/L (13-35); Albumin/Globulin Ratio 0.77 Ratio (1.60-3.17); Alkaline Phosphatase 164 U/L (41-126); BUN/Creat Ratio 39.23 Ratio (12.00-20.00); Calcium 7.9 mg/dL (8.7-10.3); Carbon Dioxide 25.7 mmol/L (21.6-31.8); Chloride 99 mmol/L (96-109); Globulin 2.6 g/dL (1.6-3.3); Glucose 87 mg/dL (70-110); Magnesium 2.1 mg/dL (1.5-2.4); Potassium 4.4 mmol/L (3.5-5.5); Sodium 133 mmol/L (135-145); Total Bilirubin 0.5 mg/dL (0.3-1.2); Total Protein 4.6 g/dL (6.2-8.2)
[2023-07-04 11:23] LABS: Prothrombin Time 11.3 sec (10.0-12.5)
[2023-07-04 11:51] LABS: Glucose,Whole Blood 92 mg/dL (70-110)
[2023-07-04] MEDS: ACETAMINOPHEN IV (For NPO) 1,000 MG in EMPTY BAG 1 BAG IVPB ONE (13:37)
--- NOTE | 2023-07-04 13:52 | P.PN ---
Subjective HISTORY OF PRESENT ILLNESS: The patient is an 82-year-old female patient who is known to our service from before with a past medical history significant for coronary artery disease with prior stenting of the left anterior descending artery as well as heart failure with preserved ejection fraction and also history of valvular heart disease and known severe mitral stenosis as well as severe pulmonary hypertension and also history of chronic obstructive pulmonary disease as well as multiple comorbid conditions. The patient is also known to have paroxysmal atrial fibrillation has been on oral anticoagulation the patient is a resident at [facility]. This time she was brought back to the emergency department because it was noted that she was hypoxic over there. The patient is extremely poor historian but she stated that she has been a bit more short of breath than normal. No pain in the chest and no dizziness or lightheadedness and no feeling of heart racing or fluttering. No change in mental status. When she was seen and evaluated though she was slightly lethargic. She underwent further investigation including an EKG and that showed sinus mechanism with diffuse nonspecific ST and T wave abnormalities. She underwent cardioversion recently. Troponin came in to be mildly abnormal but appears to be flat across the board. The chest x-ray showed finding consistent with heart failure. The NT proBNP came in to be severely elevated. The blood pressure has been marginal. The patient just was seen by our service back in June 2023 when she was admitted with atrial fibrillation with rapid ventricular response and underwent an echo which revealed preserved LV systolic function with evidence of severe mitral st enosis and severe pulmonary hypertension. Physical examination reveals slightly lethargic patient with regular rate and rhythm and systolic murmur and diminished breathing sounds bilaterally and bilateral lower extremities edema noted. Please note that also she underwent a urine analysis and that showed possible UTI/sepsis June 30, 2023 The patient was seen and evaluated. She continues to be in the emergency room at this point waiting for bed on the floor. She is feeling slightly better. She stated that the shortness of breath is slightly better. No symptoms of any pain in the chest. Her chest x-ray appears to be worse than before. She continues to be on Lasix IV at 40 mg twice daily. She is also on antibiotic for possible underlying pneumonia. Her hemoglobin has dropped. The examination revealed distant heart sounds with a systolic murmur and diminished breathing sounds bilaterally as well as bilateral rhonchi and mild bilateral lower extremities edema. July 01, 2023 Patient examined this morning at bedside. Patient denies chest pain or pressure. She denies shortness of breath. Vital signs are stable. Telemetry reveals sinus mechanism. 07/04/2023 Cardiology was reconsulted for surgical clearance. General surgery is planning for lap fernanda today. Patient denies chest pain or pressure. She denies shortness of breath. She reports having some gas pains. Patients coumadin has been on hold secondary to acute anemia and rectus sheath hematoma. Patient underwent CT abdomen pelvis on 07/02/2023 revealing moderate to severe consolidations or infiltrates in the visualized lower lungs. There is diffuse bronchial wall thickening and small pleural effusion suggested. Small calcified gallstone is present. Gallbladder is moderately distended. No significant biliary dilation is seen. PHYSICAL EXAM: VITAL SIGNS: Reviewed. GENERAL: Well-developed in no acute distress. NECK: Supple. No JVD or thyromegaly LUNGS: Respirations even and unlabored. Lungs with rhonchi bilaterally HEART: Regular rate and rhythm. S1 and S2 heard. Systolic murmur noted. EXTREMITIES: Normal range of motion. No clubbing or cyanosis. Peripheral pulses intact. No lower extremity edema ASSESSMENT: Acute hypoxic respiratory failure likely to be multifactorial COPD exacerbation with possible underlying pneumonia Heart failure exacerbation likely triggered by severe mitral stenosis Valvular heart disease with severe mitral stenosis, mild aortic stenosis, and moderate aortic regurgitation Severe pulmonary hypertension Marginally low blood pressure Chronic kidney disease Anemia Paroxysmal atrial fibrillation UTI/sepsis Rectus sheath hematoma, Coumadin on hold Moderate to severe consolidations/infiltrates and visualized lower lungs per CT scan, possibly amiodarone induced Cholelithiasis Echogenic material within the gallbladder lumen with masslike appearance with borderline gallbladder wall thickening PLAN: Discontinue amiodarone due to abnormal findings in the lungs on CT scan Will consider adding Multaq tomorrow for rhythm suppression Increase metoprolol to 37.5mg BID Recommend resuming anticoagulation when patient is stable Patients risk to undergo surgery from a cardiac standpoint is prohibitive. Patient is extremely high risk secondary to severe mitral stenosis and mixed aortic valve disease including mild aortic stenosis and moderate aortic regurgitation. Additionally patient has severe pulmonary hypertension and acute anemia from rectus steath hematoma. From a cardiac standpoint, recommend conversative management if possible. Will defer need for surgical intervention to Dr. Valentin When patients acute issues are resolved, recommend dedicated chest CT to evaluate abnormal findings of the lungs seen on abdominal CT Further recommendations pending patient course Nurse practitioner note has been reviewed by physician. Signing provider agrees with the documented findings, assessment, and plan of care documented by RET[employer] DEVELOPMENT MANAGER as a scribe. Objective - Vital Signs Vital signs: Vital Signs Temp 97.4 F L 07/04/23 08:56 Pulse 75 07/04/23 12:49 Resp 17 07/04/23 08:56 BP 106/52 07/04/23 08:56 Pulse Ox 95 07/04/23 09:16 FiO2 50 06/29/23 18:30 Intake & Output 07/03/23 07/04/23 07/04/23 18:59 06:59 18:59 Intake Total 50 Output Total 300 600 Balance -250 -600 Weight 53.5 kg Intake: Intake, IV Titration 50 Amount Cefepime 1 gm In Sodium 50 Chloride 0.9% 50 ml @ 12. 5 mls/hr IVPB Q12HR [facility] Rx#:[id number] Output: Urine 300 600 Other: Voiding Method Indwelling Catheter Indwelling Catheter Indwelling Catheter # Bowel Movements 1 - Labs CBC & Chem 7: 07/04/23 06:49 07/04/23 06:44 Labs: Abnormal Lab Results - Last 24 Hours (Table) 07/03/23 07/03/23 07/04/23 Range/Units 16:31 20:17 06:44 RBC (3.80-5.40) m/uL Hgb (11.4-16.0) gm/dL Hct (34.0-46.0) % RDW (11.5-15.5) % Plt Count (150-450) k/uL Lymphocytes # (1.0-4.8) k/uL Sodium 133 L (135-145) mmol/L BUN 51.0 H (9.0-27.0) mg/dL Est GFR (CKD-EPI) 42 L (>=60) BUN/Creatinine Ratio 39.23 H (12.00-20.00) Ratio POC Glucose (mg/dL) 138 H 189 H (70-110) mg/dL Calcium 7.9 L (8.7-10.3) mg/dL AST 211 H (13-35) U/L ALT 214 H (8-44) U/L Alkaline Phosphatase 164 H (41-126) U/L Total Protein 4.6 L (6.2-8.2) g/dL Albumin 2.0 L (3.8-4.9) g/dL Albumin/Globulin Ratio 0.77 L (1.60-3.17) Ratio 07/04/23 Range/Units 06:49 RBC 2.83 L (3.80-5.40) m/uL Hgb 8.7 L D (11.4-16.0) gm/dL Hct 27.7 L (34.0-46.0) % RDW 17.4 H (11.5-15.5) % Plt Count 123 L (150-450) k/uL Lymphocytes # 0.5 L (1.0-4.8) k/uL Sodium (135-145) mmol/L BUN (9.0-27.0) mg/dL Est GFR (CKD-EPI) (>=60) BUN/Creatinine Ratio (12.00-20.00) Ratio POC Glucose (mg/dL) (70-110) mg/dL Calcium (8.7-10.3) mg/dL AST (13-35) U/L ALT (8-44) U/L Alkaline Phosphatase (41-126) U/L Total Protein (6.2-8.2) g/dL Albumin (3.8-4.9) g/dL Albumin/Globulin Ratio (1.60-3.17) Ratio Microbiology - Last 24 Hours (Table) 06/29/23 02:35 Blood Culture - Final Blood 06/29/23 02:20 Blood Culture - Final Blood 07/02/23 15:00 Urine Culture - Preliminary Urine,Catheterized 07/02/23 01:30 Nasal Screen MRSA/MSSA - Final Nasal Swab
--- NOTE | 2023-07-04 14:13 | XR ---
EXAMINATION TYPE: XR chest 2V DATE OF EXAM: 07/04/2023 COMPARISON: 06/30/2023 HISTORY: Shortness of breath TECHNIQUE: Frontal and lateral views of the chest are obtained. FINDINGS: Scattered senescent parenchymal changes noted. Hyperinflation compatible with COPD. Stable scattered airspace disease throughout both lung stoll unchanged from prior study. Heart size is stable. Mediastinal structures are stable and grossly unremarkable. No evidence for hilar prominence. Degenerative changes dorsal spine. IMPRESSION: 1. Stable scattered airspace disease throughout both lung stoll unchanged from prior study.
--- NOTE | 2023-07-04 14:34 | P.PN ---
Subjective Progress Note Date: 07/04/23 CHIEF COMPLAINT: Shortness of breath HISTORY OF PRESENT ILLNESS: Surgical service following in regards to patient's acute cholecystitis and rectus sheath hematoma on the left. Patient denies any nausea or vomiting. Oral intake is decreased. She does have right upper quadrant tenderness. She had HIDA scan completed. Official results are pending. Afebrile. WBC is 4.6 Hgb 8.7 platelets 123 INR 1.0 sodium is 133 potassium 4.4 creatinine 1.3 total bilirubin 0.5 AST 211 ALT 214 alk phos 164 PHYSICAL EXAM: VITAL SIGNS: Reviewed. GENERAL: Well-developed in no acute distress. ABDOMEN: Soft. Nondistended. Tenderness with palpation right upper quadrant. Patient has tenderness with ecchymosis along suprapubic area and a lack along the left lower abdomen and into the back. NEUROLOGIC: Alert and oriented. Cranial nerves II through XII grossly intact. ASSESSMENT: 1. Acute cholecystitis. Echogenic material within the gallbladder lumen with masslike appearance and borderline gallbladder wall thickening noted on ultrasound 2. Elevated LFTs 3. Left abdominal rectus sheath hematoma with Coumadin toxicity present on admission 4. Acute blood loss anemia due to rectus sheath hematoma requiring blood transfusion PLAN: -Patient scheduled for laparoscopic cholecystectomy today with Dr. Valentin -Keep patient n.p.o. -Continue antibiotics -Start IV fluids while patient n.p.o. Physician Rn Icu note has been reviewed by physician. Signing provider agrees with the documented findings, assessment, and plan of care. Objective - Vital Signs Vital signs: Vital Signs Temp 97.4 F L 07/04/23 08:56 Pulse 69 07/04/23 09:25 Resp 17 07/04/23 08:56 BP 106/52 07/04/23 08:56 Pulse Ox 95 07/04/23 09:16 FiO2 50 06/29/23 18:30 Intake & Output 07/03/23 07/04/23 07/04/23 18:59 06:59 18:59 Intake Total 50 Output Total 300 600 Balance -250 -600 Weight 53.5 kg Intake: Intake, IV Titration 50 Amount Cefepime 1 gm In Sodium 50 Chloride 0.9% 50 ml @ 12. 5 mls/hr IVPB Q12HR [facility] Rx#:[id number] Output: Urine 300 600 Other: Voiding Method Indwelling Catheter Indwelling Catheter Indwelling Catheter # Bowel Movements 1 - Labs CBC & Chem 7: 07/04/23 06:49 07/04/23 06:44 Labs: Abnormal Lab Results - Last 24 Hours (Table) 07/03/23 07/03/23 07/04/23 Range/Units 16:31 20:17 06:44 RBC (3.80-5.40) m/uL Hgb (11.4-16.0) gm/dL Hct (34.0-46.0) % RDW (11.5-15.5) % Plt Count (150-450) k/uL Lymphocytes # (1.0-4.8) k/uL Sodium 133 L (135-145) mmol/L BUN 51.0 H (9.0-27.0) mg/dL Est GFR (CKD-EPI) 42 L (>=60) BUN/Creatinine Ratio 39.23 H (12.00-20.00) Ratio POC Glucose (mg/dL) 138 H 189 H (70-110) mg/dL Calcium 7.9 L (8.7-10.3) mg/dL AST 211 H (13-35) U/L ALT 214 H (8-44) U/L Alkaline Phosphatase 164 H (41-126) U/L Total Protein 4.6 L (6.2-8.2) g/dL Albumin 2.0 L (3.8-4.9) g/dL Albumin/Globulin Ratio 0.77 L (1.60-3.17) Ratio 07/04/23 Range/Units 06:49 RBC 2.83 L (3.80-5.40) m/uL Hgb 8.7 L D (11.4-16.0) gm/dL Hct 27.7 L (34.0-46.0) % RDW 17.4 H (11.5-15.5) % Plt Count 123 L (150-450) k/uL Lymphocytes # 0.5 L (1.0-4.8) k/uL Sodium (135-145) mmol/L BUN (9.0-27.0) mg/dL Est GFR (CKD-EPI) (>=60) BUN/Creatinine Ratio (12.00-20.00) Ratio POC Glucose (mg/dL) (70-110) mg/dL Calcium (8.7-10.3) mg/dL AST (13-35) U/L ALT (8-44) U/L Alkaline Phosphatase (41-126) U/L Total Protein (6.2-8.2) g/dL Albumin (3.8-4.9) g/dL Albumin/Globulin Ratio (1.60-3.17) Ratio Microbiology - Last 24 Hours (Table) 07/02/23 15:00 Urine Culture - Preliminary Urine,Catheterized 07/02/23 01:30 Nasal Screen MRSA/MSSA - Final Nasal Swab
--- NOTE | 2023-07-04 15:06 | P.PN ---
Subjective Progress Note Date: 07/04/23 This is an 82-year-old female, familiar to my service, patient was recently in the hospital with acute COVID-19 pneumonia, congestive heart failure, atrial fibrillation with RVR, possible underlying interstitial lung disease, patient was discharged on 06/26/2023, pulmonary service has seen this patient initially on 06/09/2023, at that time the patient was admitted with acute hypoxic respiratory failure, acute COVID-19 pneumonia, chronic bronchial asthma, and possible hospital-acquired pneumonia. In addition the patient had mild intermittent asthma, congestive heart failure, severe mitral calcification and moderate to severe mitral stenosis with preserved LV function and preserved ejection fraction. She also has history of rheumatoid arthritis, hypothyroidism, and lifelong non-smoker. We saw this patient last on 06/26/2023,, she was on 2 L nasal cannula, her labs were unremarkable, her sputum cultures were nondiagnostic, blood cultures were nondiagnostic, she had relatively normal renal profile, and she was at the time on warfarin, Symbicort, Singulair and albuterol. Patient was discharged to the [facility] on the [place]. Patient was discharged on amiodarone, Coumadin, prednisone 20 mg daily, Lopressor, and nystatin swish and swallow. Otherwise the patient was kept on her usual medications including Symbicort, Jardiance, levothyroxine, Singulair, Fosamax, ascorbic acid, atorvastatin, Lasix 40 mg p.o. daily, and Xanax. As well as albuterol. Patient was sent from the [facility] down to the ER today mostly because of low O2 saturation, and patient was noted to have some shortness of breath. Chest x-ray on this admission showed cardiomegaly and mild pulmonary vascular congestion, no clear-cut evidence of pneumonia. As a matter fact her chest x-ray shows significant improvement compared to her initial chest x-ray on her last admission. In addition to her shortness of breath, patient was noted to have abnormal labs with a potassium of 6.2, her BUN is 79 and creatinine 1.71. Patient was also noted to have elevated BNP level of 27,000 and troponin leak. ABG on 50% FiO2 showed a pO2 of 69 pCO2 48 pH of 7.54. Patient is now on 3 L nasal cannula, seems to be comfortable, not in distress. Seen by nephrology for her acute kidney injury, ATN, hyperkalemia with acute kidney injury and apparently the patient was on Bactrim and the recommendation by nephrology was to continue with IV fluids, IV antibiotics, and repeat labs in AM. Patient has a very poor urine output, I did recommend a fluid bolus of 500 cc of saline while in the ER, blood pressure is marginal. Considering her marginal low blood pressure, I am recommending that the patient goes to the ICU. Nephrology is addressing her abnormal renal profile and hyperkalemia The patient is seen today June 30, 2023 in follow-up in the emergency department. She is currently sitting up in the stretcher. Awake and alert in no acute distress. Doing quite a bit better today compared to yesterday. Tolerating a clear liquid breakfast. Maintaining O2 saturations in the upper 90s on 6 L/min per nasal cannula. She has been afebrile. Hemodynamically stable. X-ray reveals some diffuse hazy and patchy bilateral airspace disease. Blood cultures are pending. White count 19.8. Hemoglobin 8.6. Platelets 210. Sodium 135. Potassium 4.4. Bicarb 32. BUN 70. Creatinine 1.21. Glucose 149. AST 250. ALT 242. Alk phos 403. Echocardiogram reveals a hyperdynamic LV with a EF around 70%. There is severe mitral stenosis and moderate aortic stenosis. Severe pulmonary hypertension with an RVSP exceeding 50 mmHg. She is continued on DuoNeb ventilations, IV diuretics, antibiotics in the form of vancomycin and cefepime. Procalcitonin pending. The patient is seen today July 01, 2023 in follow-up on the regular medical floor. She is currently sitting up in bed. Awake and alert in no acute distress. She is maintaining O2 saturations in the 90s on 6 L high flow nasal cannula. Her procalcitonin was 1.16. She remains on cefepime and vancomycin. Cultures are pending. Creatinine 1.18. Glucose 121. INR 6.4. She remains on bronchodilators, oral diuretics, anticoagulated with warfarin. The patient is seen today July 02, 2023 in follow-up on the regular medical floor. She is currently resting in bed. Awake and alert in no acute distress. She is maintaining good O2 saturations up to 100% on 6 L/min per nasal cannula. She is afebrile. Hemodynamically stable. Ultrasound of the abdomen reveals hepatic steatosis with ascites adjacent to the liver. Echogenic material within the gallbladder lumen with masslike appearance. Borderline gallbladder wall thickening. Hemoglobin 6.9. She is receiving 1 unit of packed red blood cells. Platelets 113. White count 4.7. INR 2.3. Sodium 135. Potassium 5.3. Bicarb 29. BUN 58. Creatinine 1.4. Glucose 103. She is continued on DuoNeb inh alations, cefepime and vancomycin. Remains on oral diuretics. The patient is seen today July 03, 2023 in follow-up on the regular medical floor. She is awake and alert in no acute distress. Sitting up in bed. Denies any worsening shortness of breath, cough or congestion. She is down to 2 L/min per nasal cannula. No IV fluids. She is continued on Maxipime and vancomycin. CT scan of the abdomen and pelvis reveals a left rectus hematoma. Moderate cardiomegaly. Moderate to severe diffuse opacities in the lungs could be due to edema atelectasis or infection. Chronic and likely incidental findings. X-ray of the left ankle reveals no evidence of acute fracture. Status post 1 unit of packed red blood cells this admission. Current hemoglobin 8.7. White count 4.5. Platelets 110. Sodium 130. Potassium 4.6. Bicarb 30. BUN 57. Creatinine 1.53. Glucose 87. AST 292. ALT 235. Vancomycin trough 18.0. She remains on DuoNeb inhalations. Oral diuretics. Receiving iron supplements. The patient is seen today July 04, 2023 in follow-up on the regular medical floor. He is currently sitting up in bed. Awake and alert in no acute distress. Maintaining good O2 saturations in the 90s on 2 L/min per nasal cannula. She denies any worsening shortness of breath, cough or congestion. She denies any abdominal pain. No fever or chills. White count 4.6. Hemoglobin 8.7. Platelets 123. Sodium 133. Potassium 4.4. Bicarb 26. BUN 51. Creatinine 1.3. Glucose 97. AST 211. ALT 214. Alk phos 164. Hepatobiliary scan pending. Chest x-ray reveals stable scattered airspace disease unchanged compared to previous. Objective - Vital Signs Vital signs: Vital Signs Temp 97.4 F L 07/04/23 08:56 Pulse 75 07/04/23 12:49 Resp 17 07/04/23 08:56 BP 106/52 07/04/23 08:56 Pulse Ox 95 07/04/23 09:16 FiO2 50 06/29/23 18:30 Intake & Output 07/03/23 07/04/23 07/04/23 18:59 06:59 18:59 Intake Total 50 Output Total 300 600 Balance -250 -600 Weight 53.5 kg 53.5 kg Intake: Intake, IV Titration 50 Amount Cefepime 1 gm In Sodium 50 Chloride 0.9% 50 ml @ 12. 5 mls/hr IVPB Q12HR [facility] Rx#:[id number] Output: Urine 300 600 Other: Voiding Method Indwelling Catheter Indwelling Catheter Indwelling Catheter # Bowel Movements 1 - Exam GENERAL EXAM: Alert, frail, weak 82-year-old female, on 2 L nasal cannula, in no apparent distress. HEAD: Normocephalic. EYES: Normal reaction of pupils, equal size. NOSE: Clear with pink turbinates. THROAT: No erythema or exudates. NECK: No masses, no JVD. CHEST: No chest wall deformity. LUNGS: Equal air entry with crackles in the bilateral bases. CVS: S1 and S2 normal with no audible murmur, regular rhythm. ABDOMEN: No hepatosplenomegaly, normal bowel sounds, no guarding or rigidity. SPINE: No scoliosis or deformity SKIN: No rashes CENTRAL NERVOUS SYSTEM: No focal deficits, tone is normal in all 4 extremities. EXTREMITIES: There is no peripheral edema. No clubbing, no cyanosis. Peripheral pulses are intact. - Labs CBC & Chem 7: 07/04/23 06:49 07/04/23 06:44 Labs: Abnormal Lab Results - Last 24 Hours (Table) 07/03/23 07/03/23 07/04/23 Range/Units 16:31 20:17 06:44 RBC (3.80-5.40) m/uL Hgb (11.4-16.0) gm/dL Hct (34.0-46.0) % RDW (11.5-15.5) % Plt Count (150-450) k/uL Lymphocytes # (1.0-4.8) k/uL Sodium 133 L (135-145) mmol/L BUN 51.0 H (9.0-27.0) mg/dL Est GFR (CKD-EPI) 42 L (>=60) BUN/Creatinine Ratio 39.23 H (12.00-20.00) Ratio POC Glucose (mg/dL) 138 H 189 H (70-110) mg/dL Calcium 7.9 L (8.7-10.3) mg/dL AST 211 H (13-35) U/L ALT 214 H (8-44) U/L Alkaline Phosphatase 164 H (41-126) U/L Total Protein 4.6 L (6.2-8.2) g/dL Albumin 2.0 L (3.8-4.9) g/dL Albumin/Globulin Ratio 0.77 L (1.60-3.17) Ratio 07/04/23 Range/Units 06:49 RBC 2.83 L (3.80-5.40) m/uL Hgb 8.7 L D (11.4-16.0) gm/dL Hct 27.7 L (34.0-46.0) % RDW 17.4 H (11.5-15.5) % Plt Count 123 L (150-450) k/uL Lymphocytes # 0.5 L (1.0-4.8) k/uL Sodium (135-145) mmol/L BUN (9.0-27.0) mg/dL Est GFR (CKD-EPI) (>=60) BUN/Creatinine Ratio (12.00-20.00) Ratio POC Glucose (mg/dL) (70-110) mg/dL Calcium (8.7-10.3) mg/dL AST (13-35) U/L ALT (8-44) U/L Alkaline Phosphatase (41-126) U/L Total Protein (6.2-8.2) g/dL Albumin (3.8-4.9) g/dL Albumin/Globulin Ratio (1.60-3.17) Ratio Microbiology - Last 24 Hours (Table) 06/29/23 02:35 Blood Culture - Final Blood 06/29/23 02:20 Blood Culture - Final Blood 07/02/23 15:00 Urine Culture - Preliminary Urine,Catheterized Assessment and Plan Assessment: Acute on chronic hypoxic respiratory failure, multifactorial Acute on chronic congestive heart failure with preserved ejection fraction hyperdynamic LV with an ejection fraction of 70% Acute anemia with a hemoglobin of 6.9, received 1 unit of packed red blood cells, current hemoglobin 8.7 Echogenic material within the gallbladder lumen with masslike appearance. Borderline gallbladder thickening. Hepatobiliary scan pending Hepatic steatosis with ascites adjacent to the liver suspected Severe mitral stenosis Mild to moderate aortic stenosis Severe pulmonary hypertension with RVSP exceeding 50 mmHg History of COVID-19 pneumonia and healthcare acquired pneumonia, patient was treated with remdesivir on the last admission History of rheumatoid arthritis and possibly some component of interstitial lung disease Severe mitral valve disease with severe mitral stenosis, and mild aortic regurgitation and stenosis. History of rheumatoid arthritis Hypothyroidism Lifelong non-smoker Mild intermittent asthma Acute kidney injury/ATN Acute hyperkalemia secondary to acute kidney injury, patient had recent treatment with Bactrim for a UTI. Pyuria, UTI, possible sepsis from urinary tract infection Plan: The patient was seen and evaluated Chest x-ray, labs and medications reviewed Hepatobiliary scan pending Continued on antibiotics Continued diuretics Prognosis remains guarded I have personally seen and examined the patient, performed the documentation and the assessment and plan as written. Number of minutes spent on the visit: 10.
--- NOTE | 2023-07-04 15:08 | NM ---
EXAMINATION TYPE: NM hepatobiliary wo EF DATE OF EXAM: 07/04/2023 COMPARISON: NONE CLINICAL INDICATION: Female, 82 years old with history of abdominal pain, elevated LFTs; TECHNIQUE: After the intravenous administration of 4.9 mCi Tc 99m Mebrofenin hepatobiliary scintigrap hy is performed. Immediate images post injection. FINDINGS: There is uptake by the liver and excretion into the biliary tree. The gallbladder first appears 17. T here is progressive filling of the gallbladder with imaging taken out to 60 minutes. Activity in the GI tract is evident early on. IMPRESSION: Exam is within normal limits.
[2023-07-04 17:08] LABS: Glucose,Whole Blood 107 mg/dL (70-110)
--- NOTE | 2023-07-04 17:17 | P.PN ---
Subjective Progress Note Date: 07/02/23 Principal diagnosis: Reason for follow-up is sepsis UTI/pneumonia Patient is a 82-year-old female with a past medical history significant for hypertension hyperlipidemia mitral valve prolapse rheumatoid arthritis heart failure patient has been brought into the hospital for evaluation of increasing shortness of breath patient was initially admitted to the ICU concerning for sepsis secondary to possible pneumonia/UTI versus hepatobiliary source. On today's evaluation that is 07/02/2023, patient has been afebrile, patient is breathing comfortably and is currently on 2 L nasal cannula oxygen, patient denies having any significant cough no chest pain shortness of breath, patient denies nausea vomiting however has been complaining of left lower abdominal pain and also having some diarrhea Patient did have a white count of 4.74, creatinine is 1.4 liver enzymes not obtained today, blood culture has been negative Objective - Vital Signs Vital signs: Vital Signs Temp 97.7 F 07/02/23 13:16 Pulse 76 07/02/23 15:58 Resp 15 07/02/23 15:37 BP 96/57 07/02/23 15:37 Pulse Ox 98 07/02/23 15:37 FiO2 50 06/29/23 18:30 Intake & Output 07/01/23 07/02/23 07/02/23 18:59 06:59 18:59 Intake Total 310 Output Total 425 200 Balance -425 -200 310 Weight 46.7 kg 53.5 kg Intake: Blood Product 310 Rc As-1 Unit 310 [id number] Output: Urine 425 200 Uretheral ([place]) 200 Other: Voiding Method Indwelling Catheter Indwelling Catheter Indwelling Catheter # Bowel Movements 1 2 1 - Exam GENERAL DESCRIPTION: An elderly female lying in bed in no distress RESPIRATORY SYSTEM: Unlabored breathing , decreased breath sounds at bases HEART: S1 S2 regular rate and rhythm , ABDOMEN: Soft , left abdominal wall tenderness EXTREMITIES: No edema feet - Labs CBC & Chem 7: 07/04/23 06:49 07/04/23 06:44 Labs: Abnormal Lab Results - Last 24 Hours (Table) 07/01/23 07/01/23 07/01/23 Range/Units 15:20 15:20 16:49 RBC (4.10-5.20) X 10*6/uL Hgb (12.0-15.0) g/dL Hct (37.2-46.3) % MCV (80.0-97.0) FL MCHC (32.0-37.0) g/dL RDW (11.5-14.5) % Plt Count (140-440) X 10*3/uL Lymphocytes # 0.2 L (1.0-4.8) k/uL Eosinophils # (0.04-0.35) X 10*3/uL PT (10.0-12.5) sec INR (<1.2) Sodium 131 L (137-145) mmol/L Potassium 3.4 L (3.5-5.1) mmol/L Carbon Dioxide 32 H (22-30) mmol/L BUN 58 H (7-17) mg/dL Creatinine 1.33 H (0.52-1.04) mg/dL Est GFR (CKD-EPI) (>=60) BUN/Creatinine Ratio (12.00-20.00) Ratio Glucose 249 H (74-99) mg/dL POC Glucose (mg/dL) 239 H (70-110) mg/dL Calcium 7.2 L (8.4-10.2) mg/dL Magnesium (1.5-2.4) mg/dL Iron (50-170) UG/DL TIBC (228-460) UG/DL Transferrin (204.0-354.0) mg/dL Ferritin (10.0-291.0) ng/mL AST 256 H (14-36) U/L ALT 193 H (4-34) U/L Alkaline Phosphatase 353 H (38-126) U/L Total Protein 4.5 L (6.3-8.2) g/dL Albumin 1.8 L (3.5-5.0) g/dL SARS-CoV-2 (PCR) (Not Detectd) Crossmatch 07/01/23 07/02/23 07/02/23 Range/Units 20:23 05:44 06:00 RBC (4.10-5.20) X 10*6/uL Hgb (12.0-15.0) g/dL Hct (37.2-46.3) % MCV (80.0-97.0) FL MCHC (32.0-37.0) g/dL RDW (11.5-14.5) % Plt Count (140-440) X 10*3/uL Lymphocytes # (1.0-4.8) k/uL Eosinophils # (0.04-0.35) X 10*3/uL PT (10.0-12.5) sec INR (<1.2) Sodium (137-145) mmol/L Potassium (3.5-5.1) mmol/L Carbon Dioxide (22-30) mmol/L BUN 57.8 H (7-17) mg/dL Creatinine (0.52-1.04) mg/dL Est GFR (CKD-EPI) 38 L (>=60) BUN/Creatinine Ratio 41.29 H (12.00-20.00) Ratio Glucose (74-99) mg/dL POC Glucose (mg/dL) 191 H 111 H (70-110) mg/dL Calcium 7.7 L (8.4-10.2) mg/dL Magnesium 2.5 H (1.5-2.4) mg/dL Iron (50-170) UG/DL TIBC (228-460) UG/DL Transferrin (204.0-354.0) mg/dL Ferritin (10.0-291.0) ng/mL AST (14-36) U/L ALT (4-34) U/L Alkaline Phosphatase (38-126) U/L Total Protein (6.3-8.2) g/dL Albumin (3.5-5.0) g/dL SARS-CoV-2 (PCR) (Not Detectd) Crossmatch 07/02/23 07/02/23 07/02/23 Range/Units 06:00 06:00 06:00 RBC 2.23 L (4.10-5.20) X 10*6/uL Hgb 6.9 A* (12.0-15.0) g/dL Hct 23.3 L (37.2-46.3) % MCV 104.5 H (80.0-97.0) FL MCHC 29.6 L (32.0-37.0) g/dL RDW 17.8 H (11.5-14.5) % Plt Count 113 L (140-440) X 10*3/uL Lymphocytes # 0.34 L (1.0-4.8) k/uL Eosinophils # 0.01 L (0.04-0.35) X 10*3/uL PT 22.7 H (10.0-12.5) sec INR 2.3 H (<1.2) Sodium (137-145) mmol/L Potassium (3.5-5.1) mmol/L Carbon Dioxide (22-30) mmol/L BUN (7-17) mg/dL Creatinine (0.52-1.04) mg/dL Est GFR (CKD-EPI) (>=60) BUN/Creatinine Ratio (12.00-20.00) Ratio Glucose (74-99) mg/dL POC Glucose (mg/dL) (70-110) mg/dL Calcium (8.4-10.2) mg/dL Magnesium (1.5-2.4) mg/dL Iron 24 L (50-170) UG/DL TIBC 155 L (228-460) UG/DL Transferrin 111.0 L (204.0-354.0) mg/dL Ferritin 836.0 H (10.0-291.0) ng/mL AST (14-36) U/L ALT (4-34) U/L Alkaline Phosphatase (38-126) U/L Total Protein (6.3-8.2) g/dL Albumin (3.5-5.0) g/dL SARS-CoV-2 (PCR) (Not Detectd) Crossmatch 07/02/23 07/02/23 Range/Units 10:49 10:56 RBC (4.10-5.20) X 10*6/uL Hgb (12.0-15.0) g/dL Hct (37.2-46.3) % MCV (80.0-97.0) FL MCHC (32.0-37.0) g/dL RDW (11.5-14.5) % Plt Count (140-440) X 10*3/uL Lymphocytes # (1.0-4.8) k/uL Eosinophils # (0.04-0.35) X 10*3/uL PT (10.0-12.5) sec INR (<1.2) Sodium (137-145) mmol/L Potassium (3.5-5.1) mmol/L Carbon Dioxide (22-30) mmol/L BUN (7-17) mg/dL Creatinine (0.52-1.04) mg/dL Est GFR (CKD-EPI) (>=60) BUN/Creatinine Ratio (12.00-20.00) Ratio Glucose (74-99) mg/dL POC Glucose (mg/dL) (70-110) mg/dL Calcium (8.4-10.2) mg/dL Magnesium (1.5-2.4) mg/dL Iron (50-170) UG/DL TIBC (228-460) UG/DL Transferrin (204.0-354.0) mg/dL Ferritin (10.0-291.0) ng/mL AST (14-36) U/L ALT (4-34) U/L Alkaline Phosphatase (38-126) U/L Total Protein (6.3-8.2) g/dL Albumin (3.5-5.0) g/dL SARS-CoV-2 (PCR) Detected A (Not Detectd) Crossmatch See Detail Microbiology - Last 24 Hours (Table) 06/29/23 02:35 Blood Culture - Preliminary Blood 06/29/23 02:20 Blood Culture - Preliminary Blood Assessment and Plan (1) UTI (urinary tract infection) Current Visit: Yes Status: Acute Code(s): N39.0 - URINARY TRACT INFECTION, SITE NOT SPECIFIED SNOMED Code(s): 03478821 (2) Elevated liver enzymes Current Visit: Yes Status: Acute Code(s): R74.8 - ABNORMAL LEVELS OF OTHER SERUM ENZYMES SNOMED Code(s): 335764031 (3) Pneumonia Current Visit: Yes Status: Acute Code(s): J18.9 - PNEUMONIA, UNSPECIFIED ORGANISM SNOMED Code(s): 829563976 (4) Leukocytosis Current Visit: No Status: Acute Code(s): D72.829 - ELEVATED WHITE BLOOD CELL COUNT, UNSPECIFIED SNOMED Code(s): 821287985 (5) Diarrhea Current Visit: Yes Status: Acute Code(s): R19.7 - DIARRHEA, UNSPECIFIED SNOMED Code(s): 12069751 Plan: 1patient presented hospital with increasing shortness of breath which is likely multifactorial with a question of venous congestion/pneumonia not entirely excluded, patient also have a positive UA and elevated liver enzymes 2blood cultures currently pending MRSA nasal swab pending sputum not collected 3-patient did have significant abdominal tenderness and diarrhea we will check a stool for C. difficile check CT abdominal pelvis ordered continue with vancomycin and cefepime Dictation was produced using [employer] dictation software. please excuse any grammatical, word or spelling errors. Time with Patient: Less than 30
--- NOTE | 2023-07-04 17:31 | P.PN ---
Subjective Progress Note Date: 07/03/23 Principal diagnosis: Reason for follow-up is sepsis UTI/pneumonia Patient is a 82-year-old female with a past medical history significant for hypertension hyperlipidemia mitral valve prolapse rheumatoid arthritis heart failure patient has been brought into the hospital for evaluation of increasing shortness of breath patient was initially admitted to the ICU concerning for sepsis secondary to possible pneumonia/UTI versus hepatobiliary source. On today's evaluation that is 07/03/2023,the patient denies any fever or any chills, patient is breathing comfortably on 2 L nasal cannula oxygen the patient denies chest pain shortness of breath and no significant cough, patient abdominal pain has slightly decreased no nausea vomiting and no worsening diarrhea reported by the nursing staff. The patient white count is 4.52, creatinine is 1.53, CT abdominal pelvis with left rectus sheath hematoma moderate cardiomegaly and gallstone gallbladder was mildly distended Objective - Vital Signs Vital signs: Vital Signs Temp 97.6 F 07:22 Pulse 69 07:22 Resp 19 07:22 BP 105/55 07:22 Pulse Ox 99 07:22 FiO2 2l 07:22 Intake & Output 07/03/23 06:59 Intake Total 50 Output Total 300 Balance -250 Weight Intake: Intake, IV Titration 50 Amount Cefepime 1 gm In Sodium 50 Chloride 0.9% 50 ml @ 12. 5 mls/hr IVPB Q12HR [facility] Rx#:[id number] Output: Urine 300 Other: Voiding Method Indwelling Catheter # Bowel Movements 1 - Exam GENERAL DESCRIPTION: An elderly female lying in bed in no distress RESPIRATORY SYSTEM: Unlabored breathing , decreased breath sounds at bases HEART: S1 S2 regular rate and rhythm , ABDOMEN: Soft , left abdominal wall tenderness EXTREMITIES: No edema feet - Labs CBC & Chem 7: 07/04/23 06:49 07/04/23 06:44 Labs: Abnormal Lab Results - Last 24 Hours (Table) 07/03/23 07/04/23 07/04/23 Range/Units 20:17 06:44 06:49 RBC 2.83 L (3.80-5.40) m/uL Hgb 8.7 L D (11.4-16.0) gm/dL Hct 27.7 L (34.0-46.0) % RDW 17.4 H (11.5-15.5) % Plt Count 123 L (150-450) k/uL Lymphocytes # 0.5 L (1.0-4.8) k/uL Sodium 133 L (135-145) mmol/L BUN 51.0 H (9.0-27.0) mg/dL Est GFR (CKD-EPI) 42 L (>=60) BUN/Creatinine Ratio 39.23 H (12.00-20.00) Ratio POC Glucose (mg/dL) 189 H (70-110) mg/dL Calcium 7.9 L (8.7-10.3) mg/dL AST 211 H (13-35) U/L ALT 214 H (8-44) U/L Alkaline Phosphatase 164 H (41-126) U/L Total Protein 4.6 L (6.2-8.2) g/dL Albumin 2.0 L (3.8-4.9) g/dL Albumin/Globulin Ratio 0.77 L (1.60-3.17) Ratio Microbiology - Last 24 Hours (Table) 06/29/23 02:35 Blood Culture - Final Blood 06/29/23 02:20 Blood Culture - Final Blood 07/02/23 15:00 Urine Culture - Preliminary Urine,Catheterized Assessment and Plan (1) UTI (urinary tract infection) Current Visit: Yes Status: Acute Code(s): N39.0 - URINARY TRACT INFECTION, SITE NOT SPECIFIED SNOMED Code(s): 41275409 (2) Elevated liver enzymes Current Visit: Yes Status: Acute Code(s): R74.8 - ABNORMAL LEVELS OF OTHER SERUM ENZYMES SNOMED Code(s): 376032944 (3) Pneumonia Current Visit: Yes Status: Acute Code(s): J18.9 - PNEUMONIA, UNSPECIFIED ORGANISM SNOMED Code(s): 491356716 (4) Leukocytosis Current Visit: No Status: Acute Code(s): D72.829 - ELEVATED WHITE BLOOD CELL COUNT, UNSPECIFIED SNOMED Code(s): 722269578 (5) Diarrhea Current Visit: Yes Status: Acute Code(s): R19.7 - DIARRHEA, UNSPECIFIED SNOMED Code(s): 25291335 Plan: 1patient presented hospital with increasing shortness of breath which is likely multifactorial with a question of venous congestion/pneumonia not entirely excluded, patient also have a positive UA and elevated liver enzymes 2blood cultures currently pending MRSA nasal swab came back negative, vancomycin discontinued 3-patient CT abdominal pelvis with a rectus sheath hematoma also noticed to have a distended gallbladder HIDA scan has been ordered continue cefepime Dictation was produced using [employer] dictation software. please excuse any grammatical, word or spelling errors. Time with Patient: Less than 30
--- NOTE | 2023-07-04 17:32 | P.PN ---
Subjective Progress Note Date: 07/04/23 Principal diagnosis: Reason for follow-up is sepsis UTI/pneumonia Patient is a 82-year-old female with a past medical history significant for hypertension hyperlipidemia mitral valve prolapse rheumatoid arthritis heart failure patient has been brought into the hospital for evaluation of increasing shortness of breath patient was initially admitted to the ICU concerning for sepsis secondary to possible pneumonia/UTI versus hepatobiliary source. On today's evaluation that is 07/04/2023,the patient remains to be afebrile, patient is on 2 L nasal cannula supplemental oxygen and denies any shortness of breath no chest pain or cough.Patient denies having any nausea or vomiting, did have improvement in her abdominal pain and no worsening diarrhea reported by nursing staff Patient did have a HIDA scan that was normal, chest x-ray stable scattered airspace disease, patient did have a white count of 4.6 creatinine is 1.3 procalcitonin was 1.16 Objective - Vital Signs Vital signs: Vital Signs Temp 97.7 F 07/04/23 16:03 Pulse 80 07/04/23 16:21 Resp 19 07/04/23 16:03 BP 97/51 07/04/23 16:03 Pulse Ox 100 07/04/23 16:03 FiO2 50 06/29/23 18:30 Intake & Output 07/03/23 07/04/23 07/04/23 18:59 06:59 18:59 Intake Total 50 Output Total 694 065 2098 Balance -250 -600 -1100 Weight 53.5 kg 53.5 kg Intake: Intake, IV Titration 50 Amount Cefepime 1 gm In Sodium 50 Chloride 0.9% 50 ml @ 12. 5 mls/hr IVPB Q12HR [facility] Rx#:[id number] Output: Urine 493 [id number] 2759 Other: Voiding Method Indwelling Catheter Indwelling Catheter Indwelling Catheter # Bowel Movements 1 - Exam GENERAL DESCRIPTION: An elderly female lying in bed in no distress RESPIRATORY SYSTEM: Unlabored breathing , decreased breath sounds at bases HEART: S1 S2 regular rate and rhythm , ABDOMEN: Soft , left abdominal wall tenderness EXTREMITIES: No edema feet - Labs CBC & Chem 7: 07/04/23 06:49 07/04/23 06:44 Labs: Abnormal Lab Results - Last 24 Hours (Table) 07/03/23 07/04/23 07/04/23 Range/Units 20:17 06:44 06:49 RBC 2.83 L (3.80-5.40) m/uL Hgb 8.7 L D (11.4-16.0) gm/dL Hct 27.7 L (34.0-46.0) % RDW 17.4 H (11.5-15.5) % Plt Count 123 L (150-450) k/uL Lymphocytes # 0.5 L (1.0-4.8) k/uL Sodium 133 L (135-145) mmol/L BUN 51.0 H (9.0-27.0) mg/dL Est GFR (CKD-EPI) 42 L (>=60) BUN/Creatinine Ratio 39.23 H (12.00-20.00) Ratio POC Glucose (mg/dL) 189 H (70-110) mg/dL Calcium 7.9 L (8.7-10.3) mg/dL AST 211 H (13-35) U/L ALT 214 H (8-44) U/L Alkaline Phosphatase 164 H (41-126) U/L Total Protein 4.6 L (6.2-8.2) g/dL Albumin 2.0 L (3.8-4.9) g/dL Albumin/Globulin Ratio 0.77 L (1.60-3.17) Ratio Microbiology - Last 24 Hours (Table) 06/29/23 02:35 Blood Culture - Final Blood 06/29/23 02:20 Blood Culture - Final Blood 07/02/23 15:00 Urine Culture - Preliminary Urine,Catheterized Assessment and Plan (1) UTI (urinary tract infection) Current Visit: Yes Status: Acute Code(s): N39.0 - URINARY TRACT INFECTION, SITE NOT SPECIFIED SNOMED Code(s): 86317230 (2) Elevated liver enzymes Current Visit: Yes Status: Acute Code(s): R74.8 - ABNORMAL LEVELS OF OTHER SERUM ENZYMES SNOMED Code(s): 289338309 (3) Pneumonia Current Visit: Yes Status: Acute Code(s): J18.9 - PNEUMONIA, UNSPECIFIED ORGANISM SNOMED Code(s): 769370868 (4) Leukocytosis Current Visit: No Status: Acute Code(s): D72.829 - ELEVATED WHITE BLOOD CELL COUNT, UNSPECIFIED SNOMED Code(s): 500580169 (5) Diarrhea Current Visit: Yes Status: Acute Code(s): R19.7 - DIARRHEA, UNSPECIFIED SNOMED Code(s): 93787411 Plan: 1patient presented hospital with increasing shortness of breath which is likely multifactorial with a question of venous congestion/pneumonia not entirely excluded, patient also have a positive UA and elevated liver enzymes 2blood cultures currently pending MRSA nasal swab came back negative, vancomycin discontinued 3-patient CT abdominal pelvis with a rectus sheath hematoma also noticed to have a distended gallbladder HIDA scan has been negative, patient is currently cefepime to continue for now Daughter at the bedside multiple question concern answered Dictation was produced using [employer] dictation software. please excuse any grammatical, word or spelling errors. Time with Patient: Less than 30
--- NOTE | 2023-07-04 20:34 | P.PN ---
Subjective Progress Note Date: 07/04/23 patient is a 82-year-old lady with past medical history significant for congestive heart failure, atrial fibrillation with RVR,presented to the ER because of worsening shortness of breath. Patient was only recently discharged on 06/25 after being treated in the hospital for similar complaints.after discha rge, patient was all right for 1 day but started noticing that she was getting more short of breath on exertion. Patient denied any chest pain. There was no complain of orthopnea or PND. There was no complain of swelling of feet. There was no complain of fever or chills. Patient oxygen requirements were also increasing so she was transferred back to the ER Initial lab work done in the ER showed WBC 28, hemoglobin 10.5, platelet count 332, INR 3.7, sodium 138, potassium 6.2, BUN 79, creatinine1.71, AST 378, ALT 350, troponin 0.247 EKG done in the ER showed heart rate of 81 , no ST segment elevation or depression seen, no T-wave inversions seen. Chest x-ray done in the ER showed cardiomegaly and moderate vascular congestion Patient admitted to internal medicine service 06/29. Patient seen and examined. Blood work done this morning showed WBC 19.8, hemoglobin 8.6, sodium 135, potassium 4.4, BUN 70, creatinine 1.21. Ox requirements have improved, currently on 6 L of oxygen. Patient is much more talkative compared to yesterday. Answering questions. 07/01/2023 Patient examined today in follow up. Remains on 6L of oxygen, more awake and alert. She continues on clear liquid diet which will be upgraded pending speech therapy recommendations as there is concern for aspiration. Indwelling catheter remains in place for urinary retention with concern for acute UTI which family feels was caused from the IDC placed prior to her previous discharge. She has been started on cefepime and vancomycin with concern for sepsis. White blood cell count has normalized to 5.7. Hemoglobin 7.1. INR 6.4 and warfarin remains on hold. Renal function stable. LFTs remain significantly elevated. 07/02/2023 Patient is evaluated today on the medical floor. Weaned down to 4L of oxygen. LFTs remain elevated. Gallbladder ultrasound completed revealing hepatic steatosis with ascites adjacent to the liver suspected. Echogenic materinal within the gallbladder lumen with masslike appearance. Borderline wall thickening. Hemoglobin 6.9 today. Patient will receive 1 unit of blood. Covid PCR positive. 07/03/2023 Patient continues to report feeling fatigued. Was able to be weaned down to 2L of oxygen. Does have visible bruising over the left abdomen. Had abdominal pelvis CT done today which reveals a 6.8 x 2.6 x 12 cm left abdominal rectus hematoma. INR has improved down to 1.2 and this will likely only need conservative management however general surgery was consulted. There is also mention of distended gallbladder although no mention of an acute cholecystitis, dilated ducted. Patient has consistently elevated LFTs this could be due to infection however general surgery recommending HIDA scan. Left ankle xray was completed due to the bruising and mild soft tissue swelling patient states this was injured end of March when she fell. There is no acute fracture noted and patient would benefit from icing and elevation as well as light compression. 07/04/2023 Patient is evaluated on the medical floor. Continues to feel fatigued. Has not been out of bed much and has fair appetite. Family has been coming to assist with meal time feeding. General surgery following for the rectus sheath hematoma and INR has normalized and patient is being monitored off coumadin at this time. HIDA scan completed for further evaluation of the gallbladder which was normal. Recommendations for cholecystectomy however after cardiology re-evaluation felt patient was high risk for surgery. Patient has significant valvular heart disease and there is concern for possible interstitial lung disease she will be taken off the amiodarone at this time. Hemoglobin is stable at 8.7. REVIEW OF SYSTEMS: CONSTITUTIONAL: No fever, no malaise,. CARDIOVASCULAR: No chest pain, no palpitations, no syncope. PULMONARY: No shortness of breath, no cough, GASTROINTESTINAL: No diarrhea, no nausea, no vomiting, no abdominal pain. NEUROLOGICAL: No headaches, no weakness, PHYSICAL EXAMINATION: GENERAL: The patient is alert and oriented x3, not in any acute distress. Ill looking HEENT: Pupils are round and equally reacting to light. EOMI. No scleral icterus. No conjunctival pallor. Normocephalic, atraumatic. No pharyngeal erythema. No thyromegaly. CARDIOVASCULAR: S1 and S2 present. Murmur audible in the mitral area PULMONARY: Coarse breath sound bilaterally, expiratory rhonchi audible ABDOMEN: Soft, nontender, nondistended, normoactive bowel sounds. No palpable organomegaly. abdominal bruising and swelling on flank and suprapubic region. MUSCULOSKELETAL: No joint swelling or deformity. EXTREMITIES: No cyanosis, clubbing, or pedal edema. NEUROLOGICAL: Gross neurological examination did not reveal any focal deficits. Diffuse weakness. SKIN: No rashes. bruising to the left ankle. Assessment and plan Acute hypoxic respiratory failure on 2L [facility] states patient does not wear oxygen usually Non-ST elevation NC Positive covid PCR not in active infection. Was hospitalized back in May for covid. Acute on chronic diastolic heart failure Hyperkalemia normalized Anemia iron deficient with acute blood loss anemia from the left rectus sheath hematoma noted on abdominal pelvis CT. Left abdominal rectus sheath hematoma Acute kidney injury Warfarin toxicity Acute transaminitis with concern for distended gallbladder with wall thickening/hepatic steatosis. HIDA scan normal Acute exacerbation of mild intermittent chronic bronchial asthma History of coronary artery disease with previous PCI/stent x3 History of hyperlipidemia History of hypertension Moderate to severe mitral calcification and moderate to severe mitral stenosis and mild aortic regurgitation and stenosis. Pulmonary hypertension WHO class II Rheumatoid arthritis History of hypothyroidism Stage 2 pressure injury on right and left buttock present on admission Sacral decubitus ulcer, unstageable present on admission. Lifelong non-smoker GI prophylaxis DVT prophylaxis warfarin remains held INR supratherapeutic Full Code Plan Continue oxygen supplementation Aggressive bronchopulmonary hygiene Avoid nephrotoxic agents Strict I's and O's, daily weights, transitioned to oral lasix Continue IV cefepime, ID following. Cultures pending. Covid PCR positive continue supportive care Wean oxygen as tolerated. On IV ferrlecit, status post 1 unit of PRBC. Hemoglobin improved. Considered high risk for cholecystectomy and no plans for surgical intervention at this time. Coumadin has been held due to toxicity, INR currently 1.0. Remains on hold due to the anemia and rectus sheath hematoma. PT/OT following, on dysphagia chopped diet with thin liquids. Continue to turn the patient every 2 hours for pressure offloading. Zinc paste and optifoam barrier to be applied. Repeat labs in the AM. The impression and plan of care has been dictated by Janel Darden, Nurse Practitioner as directed. Dr. Brent MD I have performed a history and physical examination and medical decision making of this patient, discussed the same with the dictator, and agree with the dictators assessment and plan as written, documented as a scribe. Based on total visit time, I have performed more than 50% of this visit. Objective - Vital Signs Vital signs: Vital Signs Temp 97.4 F L 07/04/23 08:56 Pulse 75 07/04/23 12:49 Resp 17 07/04/23 08:56 BP 106/52 07/04/23 08:56 Pulse Ox 95 07/04/23 09:16 FiO2 50 06/29/23 18:30 Intake & Output 07/03/23 07/04/23 07/04/23 18:59 06:59 18:59 Intake Total 50 Output Total 300 600 Balance -250 -600 Weight 53.5 kg 53.5 kg Intake: Intake, IV Titration 50 Amount Cefepime 1 gm In Sodium 50 Chloride 0.9% 50 ml @ 12. 5 mls/hr IVPB Q12HR [facility] Rx#:[id number] Output: Urine 300 600 Other: Voiding Method Indwelling Catheter Indwelling Catheter Indwelling Catheter # Bowel Movements 1 - Labs CBC & Chem 7: 07/04/23 06:49 07/04/23 06:44 Labs: Abnormal Lab Results - Last 24 Hours (Table) 07/03/23 07/03/23 07/04/23 Range/Units 16:31 20:17 06:44 RBC (3.80-5.40) m/uL Hgb (11.4-16.0) gm/dL Hct (34.0-46.0) % RDW (11.5-15.5) % Plt Count (150-450) k/uL Lymphocytes # (1.0-4.8) k/uL Sodium 133 L (135-145) mmol/L BUN 51.0 H (9.0-27.0) mg/dL Est GFR (CKD-EPI) 42 L (>=60) BUN/Creatinine Ratio 39.23 H (12.00-20.00) Ratio POC Glucose (mg/dL) 138 H 189 H (70-110) mg/dL Calcium 7.9 L (8.7-10.3) mg/dL AST 211 H (13-35) U/L ALT 214 H (8-44) U/L Alkaline Phosphatase 164 H (41-126) U/L Total Protein 4.6 L (6.2-8.2) g/dL Albumin 2.0 L (3.8-4.9) g/dL Albumin/Globulin Ratio 0.77 L (1.60-3.17) Ratio 07/04/23 Range/Units 06:49 RBC 2.83 L (3.80-5.40) m/uL Hgb 8.7 L D (11.4-16.0) gm/dL Hct 27.7 L (34.0-46.0) % RDW 17.4 H (11.5-15.5) % Plt Count 123 L (150-450) k/uL Lymphocytes # 0.5 L (1.0-4.8) k/uL Sodium (135-145) mmol/L BUN (9.0-27.0) mg/dL Est GFR (CKD-EPI) (>=60) BUN/Creatinine Ratio (12.00-20.00) Ratio POC Glucose (mg/dL) (70-110) mg/dL Calcium (8.7-10.3) mg/dL AST (13-35) U/L ALT (8-44) U/L Alkaline Phosphatase (41-126) U/L Total Protein (6.2-8.2) g/dL Albumin (3.8-4.9) g/dL Albumin/Globulin Ratio (1.60-3.17) Ratio Microbiology - Last 24 Hours (Table) 06/29/23 02:35 Blood Culture - Final Blood 06/29/23 02:20 Blood Culture - Final Blood 07/02/23 15:00 Urine Culture - Preliminary Urine,Catheterized Assessment and Plan Time with Patient: Less than 30
[2023-07-04 20:53] LABS: Glucose,Whole Blood 168 mg/dL (70-110)
[2023-07-04] MEDS: METOPROLOL TARTRATE 25 MG TAB PO SCH (21:18)
[2023-07-04] MEDS: CALCIUM CARBONATE 500 MG CHEWABLE PO PRN (21:18)
[2023-07-05 05:57] LABS: Glucose,Whole Blood 95 mg/dL (70-110)
[2023-07-05] MEDS: METOPROLOL TARTRATE 25 MG TAB PO SCH (09:09)
[2023-07-05 10:32] LABS: HGB 8.6 g/dL (12.0-15.0); MCH 30.7 pg (27.0-32.0); MCHC 30.7 g/dL (32.0-37.0); Mean Platelet Volume 11.5 FL (9.5-12.2); NRBC Per 100 WBC 0 X 10*3/uL (0.00-0.01); Platelet Count 149 X 10*3/uL (140-440); RDW 18.6 % (11.5-14.5); WBC 8.04 X 10*3/uL (4.50-10.00)
--- NOTE | 2023-07-05 10:49 | P.PN ---
Subjective HISTORY OF PRESENT ILLNESS: The patient is an 82-year-old female patient who is known to our service from before with a past medical history significant for coronary artery disease with prior stenting of the left anterior descending artery as well as heart failure with preserved ejection fraction and also history of valvular heart disease and known severe mitral stenosis as well as severe pulmonary hypertension and also history of chronic obstructive pulmonary disease as well as multiple comorbid conditions. The patient is also known to have paroxysmal atrial fibrillation has been on oral anticoagulation the patient is a resident at [facility]. This time she was brought back to the emergency department because it was noted that she was hypoxic over there. The patient is extremely poor historian but she stated that she has been a bit more short of breath than normal. No pain in the chest and no dizziness or lightheadedness and no feeling of heart racing or fluttering. No change in mental status. When she was seen and evaluated though she was slightly lethargic. She underwent further investigation including an EKG and that showed sinus mechanism with diffuse nonspecific ST and T wave abnormalities. She underwent cardioversion recently. Troponin came in to be mildly abnormal but appears to be flat across the board. The chest x-ray showed finding consistent with heart failure. The NT proBNP came in to be severely elevated. The blood pressure has been marginal. The patient just was seen by our service back in June 2023 when she was admitted with atrial fibrillation with rapid ventricular response and underwent an echo which revealed preserved LV systolic function with evidence of severe mitral st enosis and severe pulmonary hypertension. Physical examination reveals slightly lethargic patient with regular rate and rhythm and systolic murmur and diminished breathing sounds bilaterally and bilateral lower extremities edema noted. Please note that also she underwent a urine analysis and that showed possible UTI/sepsis June 30, 2023 The patient was seen and evaluated. She continues to be in the emergency room at this point waiting for bed on the floor. She is feeling slightly better. She stated that the shortness of breath is slightly better. No symptoms of any pain in the chest. Her chest x-ray appears to be worse than before. She continues to be on Lasix IV at 40 mg twice daily. She is also on antibiotic for possible underlying pneumonia. Her hemoglobin has dropped. The examination revealed distant heart sounds with a systolic murmur and diminished breathing sounds bilaterally as well as bilateral rhonchi and mild bilateral lower extremities edema. July 01, 2023 Patient examined this morning at bedside. Patient denies chest pain or pressure. She denies shortness of breath. Vital signs are stable. Telemetry reveals sinus mechanism. 07/04/2023 Cardiology was reconsulted for surgical clearance. General surgery is planning for lap fernanda today. Patient denies chest pain or pressure. She denies shortness of breath. She reports having some gas pains. Patients coumadin has been on hold secondary to acute anemia and rectus sheath hematoma. Patient underwent CT abdomen pelvis on 07/02/2023 revealing moderate to severe consolidations or infiltrates in the visualized lower lungs. There is diffuse bronchial wall thickening and small pleural effusion suggested. Small calcified gallstone is present. Gallbladder is moderately distended. No significant biliary dilation is seen. 07/05/2023 Patient examined this morning the bedside. There is no family present. Patient denies chest pain or pressure. She denies shortness of breath. Denies abdominal pain. Vital signs are stable. She remains in sinus mechanism. Patient's blood pressures are borderline this morning with a systolic in the 90s. PHYSICAL EXAM: VITAL SIGNS: Reviewed. GENERAL: Well-developed in no acute distress. NECK: Supple. No JVD or thyromegaly LUNGS: Respirations even and unlabored. Lungs with rhonchi bilaterally HEART: Regular rate and rhythm. S1 and S2 heard. Systolic murmur noted. EXTREMITIES: Normal range of motion. No clubbing or cyanosis. Peripheral pulses intact. No lower extremity edema ASSESSMENT: Acute hypoxic respiratory failure likely to be multifactorial COPD exacerbation with possible underlying pneumonia Heart failure exacerbation likely triggered by severe mitral stenosis Valvular heart disease with severe mitral stenosis, mild aortic stenosis, and moderate aortic regurgitation Severe pulmonary hypertension Marginally low blood pressure Chronic kidney disease Anemia Paroxysmal atrial fibrillation UTI/sepsis Rectus sheath hematoma, Coumadin on hold Moderate to severe consolidations/infiltrates and visualized lower lungs per CT scan, possibly amiodarone induced Cholelithiasis Echogenic material within the gallbladder lumen with masslike appearance with borderline gallbladder wall thickening PLAN: 07/04/2023 Discontinue amiodarone due to abnormal findings in the lungs on CT scan Will consider adding Multaq tomorrow for rhythm suppression Increase metoprolol to 37.5mg BID Recommend resuming anticoagulation when patient is stable Patients risk to undergo surgery from a cardiac standpoint is prohibitive. Patient is extremely high risk secondary to severe mitral stenosis and mixed aortic valve disease including mild aortic stenosis and moderate aortic regurgitation. Additionally patient has severe pulmonary hypertension and acute anemia from rectus steath hematoma. From a cardiac standpoint, recommend conversative management if possible. Will defer need for surgical intervention to Dr. Valentin When patients acute issues are resolved, recommend dedicated chest CT to evaluate abnormal findings of the lungs seen on abdominal CT Further recommendations pending patient course 07/05/2023 Amiodarone had been discontinued Add Multaq 400 mg twice a day for rhythm suppression Decrease metoprolol back to 25 mg twice a day secondary to borderline hypotension Recommend resuming anticoagulation when cleared by general surgery due to risk of CVA from atrial fibrillation When patient's acute issues are resolved, recommend dedicated chest CT to evaluate abnormal findings of the lung seen on abdominal CT No further inpatient recommendations from a cardiac standpoint We will sign off. Please reconsult if needed. Nurse practitioner note has been reviewed by physician. Signing provider agrees with the documented findings, assessment, and plan of care documented by [employer] as a scribe. Objective - Vital Signs Vital signs: Vital Signs Temp 97.6 F 07/05/23 07:05 Pulse 68 07/05/23 07:54 Resp 17 07/05/23 07:05 BP 90/44 07/05/23 07:05 Pulse Ox 93 L 07/05/23 07:54 FiO2 21 07/05/23 07:54 Intake & Output 07/04/23 07/05/23 07/05/23 18:59 06:59 18:59 Intake Total 50 Output Total 1100 600 Balance -1050 -600 Weight 53.5 kg 53.5 kg Intake: Oral 50 Output: Urine 1100 600 Other: Voiding Method Indwelling Catheter Indwelling Catheter Indwelling Catheter # Bowel Movements 1 - Labs CBC & Chem 7: 07/05/23 07:48 07/04/23 06:44 Labs: Abnormal Lab Results - Last 24 Hours (Table) 07/04/23 07/04/23 07/05/23 Range/Units 06:44 20:41 07:48 RBC 2.80 L (4.10-5.20) X 10*6/uL Hgb 8.6 L (12.0-15.0) g/dL Hct 28.0 L (37.2-46.3) % MCV 100.0 H (80.0-97.0) FL MCHC 30.7 L (32.0-37.0) g/dL RDW 18.6 H (11.5-14.5) % Sodium 133 L (135-145) mmol/L BUN 51.0 H (9.0-27.0) mg/dL Est GFR (CKD-EPI) 42 L (>=60) BUN/Creatinine Ratio 39.23 H (12.00-20.00) Ratio POC Glucose (mg/dL) 168 H (70-110) mg/dL Calcium 7.9 L (8.7-10.3) mg/dL AST 211 H (13-35) U/L ALT 214 H (8-44) U/L Alkaline Phosphatase 164 H (41-126) U/L Total Protein 4.6 L (6.2-8.2) g/dL Albumin 2.0 L (3.8-4.9) g/dL Albumin/Globulin Ratio 0.77 L (1.60-3.17) Ratio Microbiology - Last 24 Hours (Table) 07/02/23 15:00 Urine Culture - Final Urine,Catheterized Chaparrita albicans 06/29/23 02:35 Blood Culture - Final Blood 06/29/23 02:20 Blood Culture - Final Blood
[2023-07-05 10:54] LABS: ALT 218 U/L (8-44); AST 184 U/L (13-35); Albumin/Globulin Ratio 0.74 Ratio (1.60-3.17); Alkaline Phosphatase 153 U/L (41-126); BUN/Creat Ratio 37.43 Ratio (12.00-20.00); Blood Urea Nitrogen 52.4 mg/dL (9.0-27.0); Calcium 8.3 mg/dL (8.7-10.3); Chloride 101 mmol/L (96-109); Globulin 2.7 g/dL (1.6-3.3); Glucose 108 mg/dL (70-110); Magnesium 1.9 mg/dL (1.5-2.4); Potassium 4.1 mmol/L (3.5-5.5); Sodium 136 mmol/L (135-145); Total Bilirubin 0.3 mg/dL (0.3-1.2); Total Protein 4.7 g/dL (6.2-8.2)
[2023-07-05 10:58] LABS: Basophils # (M) 0 X 10*3/uL (0.00-0.10); Eosinophils # (M) 0 X 10*3/uL (0.04-0.35); Lymphocytes # (M) 0.24 X 10*3/uL (0.90-5.00); Metamyelocytes % 4 % (0-0); Myelocytes % 1 % (0-0); Neutrophils # (M) 6.99 X 10*3/uL (1.80-7.70); Neutrophils % (M) 87 %; RBC Morphology Normal (Normal)
--- NOTE | 2023-07-05 11:04 | P.PN ---
Subjective Patient is seen in follow-up for acute kidney injury. Renal function stable. Hemoglobin improved post blood transfusion. No active bleeding. Oral intake poor. Nonoliguric. Denies chest pain or shortness of breath. Vital signs are stable. General: No acute distress. HEENT: Head exam is unremarkable. On nasal cannula. LUNGS: No audible rhonchi or wheezes. HEART: Rate and Rhythm are regular. ABDOMEN: Nontender. EXTREMITITES: No edema. Objective - Vital Signs Vital signs: Vital Signs Temp 97.6 F 07/05/23 07:05 Pulse 68 07/05/23 07:54 Resp 17 07/05/23 07:05 BP 90/44 07/05/23 07:05 Pulse Ox 93 L 07/05/23 07:54 FiO2 21 07/05/23 07:54 Intake & Output 07/04/23 07/05/23 07/05/23 18:59 06:59 18:59 Intake Total 50 Output Total 1100 600 Balance -1050 -600 Weight 53.5 kg 53.5 kg Intake: Oral 50 Output: Urine 1100 600 Other: Voiding Method Indwelling Catheter Indwelling Catheter Indwelling Catheter # Bowel Movements 1 - Labs CBC & Chem 7: 07/05/23 07:48 07/05/23 07:48 Labs: Abnormal Lab Results - Last 24 Hours (Table) 07/04/23 07/04/23 07/05/23 Range/Units 06:44 20:41 07:48 RBC (4.10-5.20) X 10*6/uL Hgb (12.0-15.0) g/dL Hct (37.2-46.3) % MCV (80.0-97.0) FL MCHC (32.0-37.0) g/dL RDW (11.5-14.5) % Lymphocytes # (Manual) (0.90-5.00) X 10*3/uL Eosinophils # (Manual) (0.04-0.35) X 10*3/uL Sodium 133 L (135-145) mmol/L BUN 51.0 H 52.4 H (9.0-27.0) mg/dL Est GFR (CKD-EPI) 42 L 38 L (>=60) BUN/Creatinine Ratio 39.23 H 37.43 H (12.00-20.00) Ratio POC Glucose (mg/dL) 168 H (70-110) mg/dL Calcium 7.9 L 8.3 L (8.7-10.3) mg/dL AST 211 H 184 H (13-35) U/L ALT 214 H 218 H (8-44) U/L Alkaline Phosphatase 164 H 153 H (41-126) U/L Total Protein 4.6 L 4.7 L (6.2-8.2) g/dL Albumin 2.0 L 2.0 L (3.8-4.9) g/dL Albumin/Globulin Ratio 0.77 L 0.74 L (1.60-3.17) Ratio 07/05/23 Range/Units 07:48 RBC 2.80 L (4.10-5.20) X 10*6/uL Hgb 8.6 L (12.0-15.0) g/dL Hct 28.0 L (37.2-46.3) % MCV 100.0 H (80.0-97.0) FL MCHC 30.7 L (32.0-37.0) g/dL RDW 18.6 H (11.5-14.5) % Lymphocytes # (Manual) 0.24 L (0.90-5.00) X 10*3/uL Eosinophils # (Manual) 0 L (0.04-0.35) X 10*3/uL Sodium (135-145) mmol/L BUN (9.0-27.0) mg/dL Est GFR (CKD-EPI) (>=60) BUN/Creatinine Ratio (12.00-20.00) Ratio POC Glucose (mg/dL) (70-110) mg/dL Calcium (8.7-10.3) mg/dL AST (13-35) U/L ALT (8-44) U/L Alkaline Phosphatase (41-126) U/L Total Protein (6.2-8.2) g/dL Albumin (3.8-4.9) g/dL Albumin/Globulin Ratio (1.60-3.17) Ratio Microbiology - Last 24 Hours (Table) 07/02/23 15:00 Urine Culture - Final Urine,Catheterized Chaparrita albicans 06/29/23 02:35 Blood Culture - Final Blood 06/29/23 02:20 Blood Culture - Final Blood Assessment and Plan Plan: Assessment: 1. Acute kidney injury secondary to ATN secondary to severe sepsis. Was also on Bactrim prior to admission. No hydronephrosis noted on kidney ultrasound/CT. Creatinine 1.7 on admission and fairly stable at 1.4 today. Now on lasix. 2. Chronic diastolic CHF with severe pulmonary hypertension, mild to moderate aortic stenosis, moderate aortic regurgitation, severe mitral stenosis. 3. Hyperkalemia secondary to acute kidney injury on Bactrim. Improved. 4. Mild volume overload. On Lasix. 5. Acute blood loss anemia. Status post blood transfusion this admission. Better. 6. Hyponatremia from poor solute intake. Hypervolemic. Improved. 7. Acute COVID infection. 8. Left abdominal rectus sheath hematoma. Surgery following. Plan: Maintain oral Lasix. Encouraged oral intake. Maintain 1500 cc fluid restriction. Maintain IV iron. Avoid nephrotoxins. Continue to monitor renal function and urine output. Add midodrine. Hold for systolic blood pressure greater than 110. Check a.m. cortisol level.
[2023-07-05 11:24] LABS: Glucose,Whole Blood 107 mg/dL (70-110)
[2023-07-05] MEDS: DRONEDARONE 400 MG TAB PO SCH (11:42)
[2023-07-05] MEDS: MIDODRINE 5 MG TAB PO SCH (11:42)
--- NOTE | 2023-07-05 15:04 | P.PN ---
Subjective Progress Note Date: 07/05/23 This is an 82-year-old female, familiar to my service, patient was recently in the hospital with acute COVID-19 pneumonia, congestive heart failure, atrial fibrillation with RVR, possible underlying interstitial lung disease, patient was discharged on 06/26/2023, pulmonary service has seen this patient initially on 06/09/2023, at that time the patient was admitted with acute hypoxic respiratory failure, acute COVID-19 pneumonia, chronic bronchial asthma, and possible hospital-acquired pneumonia. In addition the patient had mild intermittent asthma, congestive heart failure, severe mitral calcification and moderate to severe mitral stenosis with preserved LV function and preserved ejection fraction. She also has history of rheumatoid arthritis, hypothyroidism, and lifelong non-smoker. We saw this patient last on 06/26/2023,, she was on 2 L nasal cannula, her labs were unremarkable, her sputum cultures were nondiagnostic, blood cultures were nondiagnostic, she had relatively normal renal profile, and she was at the time on warfarin, Symbicort, Singulair and albuterol. Patient was discharged to the [facility] on the sixes. Patient was discharged on amiodarone, Coumadin, prednisone 20 mg daily, Lopressor, and nystatin swish and swallow. Otherwise the patient was kept on her usual medications including Symbicort, Jardiance, levothyroxine, Singulair, Fosamax, ascorbic acid, atorvastatin, Lasix 40 mg p.o. daily, and Xanax. As well as albuterol. Patient was sent from the [facility] down to the ER today mostly because of low O2 saturation, and patient was noted to have some shortness of breath. Chest x-ray on this admission showed cardiomegaly and mild pulmonary vascular congestion, no clear-cut evidence of pneumonia. As a matter fact her chest x-ray shows significant improvement compared to her initial chest x-ray on her last admission. In addition to her shortness of breath, patient was noted to have abnormal labs with a potassium of 6.2, her BUN is 79 and creatinine 1.71. Patient was also noted to have elevated BNP level of 27,000 and troponin leak. ABG on 50% FiO2 showed a pO2 of 69 pCO2 48 pH of 7.54. Patient is now on 3 L nasal cannula, seems to be comfortable, not in distress. Seen by nephrology for her acute kidney injury, ATN, hyperkalemia with acute kidney injury and apparently the patient was on Bactrim and the recommendation by nephrology was to continue with IV fluids, IV antibiotics, and repeat labs in AM. Patient has a very poor urine output, I did recommend a fluid bolus of 500 cc of saline while in the ER, blood pressure is marginal. Considering her marginal low blood pressure, I am recommending that the patient goes to the ICU. Nephrology is addressing her abnormal renal profile and hyperkalemia The patient is seen today June 30, 2023 in follow-up in the emergency department. She is currently sitting up in the stretcher. Awake and alert in no acute distress. Doing quite a bit better today compared to yesterday. Tolerating a clear liquid breakfast. Maintaining O2 saturations in the upper 90s on 6 L/min per nasal cannula. She has been afebrile. Hemodynamically stable. X-ray reveals some diffuse hazy and patchy bilateral airspace disease. Blood cultures are pending. White count 19.8. Hemoglobin 8.6. Platelets 210. Sodium 135. Potassium 4.4. Bicarb 32. BUN 70. Creatinine 1.21. Glucose 149. AST 250. ALT 242. Alk phos 403. Echocardiogram reveals a hyperdynamic LV with a EF around 70%. There is severe mitral stenosis and moderate aortic stenosis. Severe pulmonary hypertension with an RVSP exceeding 50 mmHg. She is continued on DuoNeb ventilations, IV diuretics, antibiotics in the form of vancomycin and cefepime. Procalcitonin pending. The patient is seen today July 01, 2023 in follow-up on the regular medical floor. She is currently sitting up in bed. Awake and alert in no acute distress. She is maintaining O2 saturations in the 90s on 6 L high flow nasal cannula. Her procalcitonin was 1.16. She remains on cefepime and vancomycin. Cultures are pending. Creatinine 1.18. Glucose 121. INR 6.4. She remains on bronchodilators, oral diuretics, anticoagulated with warfarin. The patient is seen today July 02, 2023 in follow-up on the regular medical floor. She is currently resting in bed. Awake and alert in no acute distress. She is maintaining good O2 saturations up to 100% on 6 L/min per nasal cannula. She is afebrile. Hemodynamically stable. Ultrasound of the abdomen reveals hepatic steatosis with ascites adjacent to the liver. Echogenic material within the gallbladder lumen with masslike appearance. Borderline gallbladder wall thickening. Hemoglobin 6.9. She is receiving 1 unit of packed red blood cells. Platelets 113. White count 4.7. INR 2.3. Sodium 135. Potassium 5.3. Bicarb 29. BUN 58. Creatinine 1.4. Glucose 103. She is continued on DuoNeb inh alations, cefepime and vancomycin. Remains on oral diuretics. The patient is seen today July 03, 2023 in follow-up on the regular medical floor. She is awake and alert in no acute distress. Sitting up in bed. Denies any worsening shortness of breath, cough or congestion. She is down to 2 L/min per nasal cannula. No IV fluids. She is continued on Maxipime and vancomycin. CT scan of the abdomen and pelvis reveals a left rectus hematoma. Moderate cardiomegaly. Moderate to severe diffuse opacities in the lungs could be due to edema atelectasis or infection. Chronic and likely incidental findings. X-ray of the left ankle reveals no evidence of acute fracture. Status post 1 unit of packed red blood cells this admission. Current hemoglobin 8.7. White count 4.5. Platelets 110. Sodium 130. Potassium 4.6. Bicarb 30. BUN 57. Creatinine 1.53. Glucose 87. AST 292. ALT 235. Vancomycin trough 18.0. She remains on DuoNeb inhalations. Oral diuretics. Receiving iron supplements. The patient is seen today July 04, 2023 in follow-up on the regular medical floor. He is currently sitting up in bed. Awake and alert in no acute distress. Maintaining good O2 saturations in the 90s on 2 L/min per nasal cannula. She denies any worsening shortness of breath, cough or congestion. She denies any abdominal pain. No fever or chills. White count 4.6. Hemoglobin 8.7. Platelets 123. Sodium 133. Potassium 4.4. Bicarb 26. BUN 51. Creatinine 1.3. Glucose 97. AST 211. ALT 214. Alk phos 164. Hepatobiliary scan pending. Chest x-ray reveals stable scattered airspace disease unchanged compared to previous. The patient is seen today July 05, 2023 in follow-up on the regular medical floor. She is resting comfortably in bed. Awake and alert in no acute distre ss. She is now on room air. No IV fluids. She remains on cefepime. Continued on bronchodilators. Continued on oral diuretics. Urine culture positive for Chaparrita. Blood cultures revealed no growth. White count 8.0. Hemoglobin 8.6. Platelets 149. Sodium 136. Potassium 4.1. Bicarb 52. Creatinine 1.4. AST 218. ALT 153. Hepatobiliary scan was within normal limits. Currently in a negative 1.6 L balance. Objective - Vital Signs Vital signs: Vital Signs Temp 97.5 F L 07/05/23 13:03 Pulse 75 07/05/23 13:03 Resp 17 07/05/23 13:03 BP 97/49 07/05/23 13:03 Pulse Ox 93 L 07/05/23 13:03 FiO2 21 07/05/23 07:54 Intake & Output 07/04/23 07/05/23 07/05/23 18:59 06:59 18:59 Intake Total 50 120 Output Total 1100 600 450 Balance -1050 -600 -330 Weight 53.5 kg 53.5 kg Intake: Oral 50 120 Output: Urine 1100 600 450 Other: Voiding Method Indwelling Catheter Indwelling Catheter Indwelling Catheter # Bowel Movements 1 2 - Exam GENERAL EXAM: Alert, frail, weak 82-year-old female, sitting up in bed, on room air, in no apparent distress. HEAD: Normocephalic. EYES: Normal reaction of pupils, equal size. NOSE: Clear with pink turbinates. THROAT: No erythema or exudates. NECK: No masses, no JVD. CHEST: No chest wall deformity. LUNGS: Equal air entry with crackles in the bilateral bases. CVS: S1 and S2 normal with no audible murmur, regular rhythm. ABDOMEN: No hepatosplenomegaly, normal bowel sounds, no guarding or rigidity. SPINE: No scoliosis or deformity SKIN: No rashes CENTRAL NERVOUS SYSTEM: No focal deficits, tone is normal in all 4 extremities. EXTREMITIES: There is no peripheral edema. No clubbing, no cyanosis. Peripheral pulses are intact. - Labs CBC & Chem 7: 07/05/23 07:48 07/05/23 07:48 Labs: Abnormal Lab Results - Last 24 Hours (Table) 07/04/23 07/05/23 07/05/23 Range/Units 20:41 07:48 07:48 RBC 2.80 L (4.10-5.20) X 10*6/uL Hgb 8.6 L (12.0-15.0) g/dL Hct 28.0 L (37.2-46.3) % MCV 100.0 H (80.0-97.0) FL MCHC 30.7 L (32.0-37.0) g/dL RDW 18.6 H (11.5-14.5) % Lymphocytes # (Manual) 0.24 L (0.90-5.00) X 10*3/uL Eosinophils # (Manual) 0 L (0.04-0.35) X 10*3/uL BUN 52.4 H (9.0-27.0) mg/dL Est GFR (CKD-EPI) 38 L (>=60) BUN/Creatinine Ratio 37.43 H (12.00-20.00) Ratio POC Glucose (mg/dL) 168 H (70-110) mg/dL Calcium 8.3 L (8.7-10.3) mg/dL AST 184 H (13-35) U/L ALT 218 H (8-44) U/L Alkaline Phosphatase 153 H (41-126) U/L Total Protein 4.7 L (6.2-8.2) g/dL Albumin 2.0 L (3.8-4.9) g/dL Albumin/Globulin Ratio 0.74 L (1.60-3.17) Ratio Microbiology - Last 24 Hours (Table) 07/02/23 15:00 Urine Culture - Final Urine,Catheterized Chaparrita albicans 06/29/23 02:35 Blood Culture - Final Blood 06/29/23 02:20 Blood Culture - Final Blood Assessment and Plan Assessment: Acute on chronic hypoxic respiratory failure, multifactorial, recovered and on room air Acute on chronic congestive heart failure with preserved ejection fraction hyperdynamic LV with an ejection fraction of 70% Acute anemia with a hemoglobin of 6.9, received 1 unit of packed red blood cells, current hemoglobin 8.6 Echogenic material within the gallbladder lumen with masslike appearance. Borderline gallbladder thickening. Hepatobiliary scan within normal limits Hepatic steatosis with ascites adjacent to the liver suspected Transaminitis Severe mitral stenosis Mild to moderate aortic stenosis Severe pulmonary hypertension with RVSP exceeding 50 mmHg History of COVID-19 pneumonia and healthcare acquired pneumonia, patient was treated with remdesivir on the last admission History of rheumatoid arthritis and possibly some component of interstitial lung disease Severe mitral valve disease with severe mitral stenosis, and mild aortic regurgitation and stenosis. History of rheumatoid arthritis Hypothyroidism Lifelong non-smoker Mild intermittent asthma Acute kidney injury/ATN Acute hyperkalemia secondary to acute kidney injury, patient had recent treatment with Bactrim for a UTI. Pyuria, UTI, possible sepsis from urinary tract infection Plan: The patient was seen and evaluated HIDA scan, labs and medications reviewed Stable and on room air Continued on antibiotics Continued diuretics Prognosis remains guarded Plan is for subacute rehab post discharge I have personally seen and examined the patient, performed the documentation and the assessment and plan as written. Number of minutes spent on the visit: 10.
[2023-07-05 16:38] LABS: Glucose,Whole Blood 126 mg/dL (70-110)
--- NOTE | 2023-07-05 17:00 | P.PN ---
Subjective Progress Note Date: 07/05/23 CHIEF COMPLAINT: Shortness of breath HISTORY OF PRESENT ILLNESS: Surgical service following in regards to patient's acute cholecystitis and Left rectus sheath hematoma on the left. Patient does complain of right lower abdominal pain. She is having diarrhea. She does report more pain on her bottom. Per nursing staff there are sores on her buttocks. Patient denies any nausea or vomiting. Afebrile. WBC 8.04 hemoglobin 8.6 LFTs elevated but trending down slightly. ALT is slightly up at 218 PHYSICAL EXAM: VITAL SIGNS: Reviewed. GENERAL: Well-developed in no acute distress. ABDOMEN: Soft. Nondistended. Mild tenderness with palpation of the right upper quadrant and right lower quadrant. Patient has tenderness with ecchymosis along suprapubic area and a lack along the left lower abdomen and into the back. NEUROLOGIC: Alert and oriented. Cranial nerves II through XII grossly intact. ASSESSMENT: 1. Acute cholecystitis. Echogenic material within the gallbladder lumen with masslike appearance and borderline gallbladder wall thickening noted on ultrasound 2. Elevated LFTs 3. Left abdominal rectus sheath hematoma with Coumadin toxicity present on admission 4. Acute blood loss anemia due to rectus sheath hematoma requiring blood transfusion PLAN: -Patient is a poor surgical candidate. No plans for surgical intervention for her acute cholecystitis. Recommend medical management. Continue antibiotics. -No surgical intervention planned on the rectus sheath hematoma. -Continue to hold Coumadin -Continue low-fat diet Physician [employer] Supply Supervisor note has been reviewed by physician. Signing provider agrees with the documented findings, assessment, and plan of care. Objective - Vital Signs Vital signs: Vital Signs Temp 97.5 F L 07/05/23 13:03 Pulse 70 07/05/23 15:03 Resp 17 07/05/23 13:03 BP 97/49 07/05/23 13:03 Pulse Ox 93 L 07/05/23 13:03 FiO2 21 07/05/23 07:54 Intake & Output 07/04/23 07/05/23 07/05/23 18:59 06:59 18:59 Intake Total 50 120 Output Total 1100 600 450 Balance -5660 -600 -540 Weight 53.5 kg 53.5 kg Intake: Oral 50 120 Output: Urine 1100 600 450 Other: Voiding Method Indwelling Catheter Indwelling Catheter Indwelling Catheter # Bowel Movements 1 1 - Labs CBC & Chem 7: 07/05/23 07:48 04/26/24 07:48 Labs: Abnormal Lab Results - Last 24 Hours (Table) 07/04/23 07/05/23 07/05/23 Range/Units 20:41 07:48 07:48 RBC 2.80 L (4.10-5.20) X 10*6/uL Hgb 8.6 L (12.0-15.0) g/dL Hct 28.0 L (37.2-46.3) % MCV 100.0 H (80.0-97.0) FL MCHC 30.7 L (32.0-37.0) g/dL RDW 18.6 H (11.5-14.5) % Lymphocytes # (Manual) 0.24 L (0.90-5.00) X 10*3/uL Eosinophils # (Manual) 0 L (0.04-0.35) X 10*3/uL BUN 52.4 H (9.0-27.0) mg/dL Est GFR (CKD-EPI) 38 L (>=60) BUN/Creatinine Ratio 37.43 H (12.00-20.00) Ratio POC Glucose (mg/dL) 168 H (70-110) mg/dL Calcium 8.3 L (8.7-10.3) mg/dL AST 184 H (13-35) U/L ALT 218 H (8-44) U/L Alkaline Phosphatase 153 H (41-126) U/L Total Protein 4.7 L (6.2-8.2) g/dL Albumin 2.0 L (3.8-4.9) g/dL Albumin/Globulin Ratio 0.74 L (1.60-3.17) Ratio 07/05/23 Range/Units 16:37 RBC (4.10-5.20) X 10*6/uL Hgb (12.0-15.0) g/dL Hct (37.2-46.3) % MCV (80.0-97.0) FL MCHC (32.0-37.0) g/dL RDW (11.5-14.5) % Lymphocytes # (Manual) (0.90-5.00) X 10*3/uL Eosinophils # (Manual) (0.04-0.35) X 10*3/uL BUN (9.0-27.0) mg/dL Est GFR (CKD-EPI) (>=60) BUN/Creatinine Ratio (12.00-20.00) Ratio POC Glucose (mg/dL) 126 H (70-110) mg/dL Calcium (8.7-10.3) mg/dL AST (13-35) U/L ALT (8-44) U/L Alkaline Phosphatase (41-126) U/L Total Protein (6.2-8.2) g/dL Albumin (3.8-4.9) g/dL Albumin/Globulin Ratio (1.60-3.17) Ratio Microbiology - Last 24 Hours (Table) 07/02/23 15:00 Urine Culture - Final Urine,Catheterized Chaparrita albicans 06/29/23 02:35 Blood Culture - Final Blood 06/29/23 02:20 Blood Culture - Final Blood
--- NOTE | 2023-07-05 17:41 | CDI ---
Documentation Clarification Form Date: 07/05/2023 04:27:46 PM From: Rula Garrison RN, CCDS Phone: [phone] Admit Date: 06/29/2023 01:11:00 AM Patient Name: Juan Francisco Grande Visit Number: [id number] Discharge Date: ATTENTION: The Clinical Documentation Specialists (CDI) and [facility] Coding Staff appreciate your assistance in clarifying documentation. Please respond to the clarification below the line at the bottom and electronically sign. The CDI & [facility] Coding staff will review the response and follow-up if needed. Please note: Queries are made part of the Legal Health Record. If you have any questions, please contact the author of this message via ITS. Dr. Kian Kennedy Your patient has sepsis documented in the Pulmonary and cardiology consult and subsequent progress notes starting 06/29/23. Based on this information and the findings below, is there an additional diagnosis that is clinically appropriate for this patient? Patient history/risk factors: Heart Failure, Hyperlipidemia, Hypertension, Mitral Valve Prolapse (MVP), Rheumatoid Arthritis (RA), Thyroid Disorder Clinical Indicators: 82-year-old female to the ER for evaluation of severe hypoxia. Patient does have known pneumonia and known coronavirus and known hypoxic respiratory distress. 06/28 (07:00) VS 103/52 76 26 99.5 Core 9%% 06/28 ([id number]:[id number] 93 20 99.7 99% Venti mask 06/27 Labs: WBC 28.0, Neutrophiles 26.9 , K+ 6.2 Cl 94 CO2 37, Troponin 0.247, 0.286, BNP 40124 UA: Leukocyte Esterase Trace 06/28 CXR: Moderate vascular congestion. 06/28 Pulmonary consult: Pyuria, UTI, possible sepsis from urinary tract infection. Continue gentle fluid boluses, considering the patient does have mild interstitial edema and she does have a presentation of sepsis with relatively low blood pressure. 06/28 Cardiology consult and progress notes: UTI/sepsis 07/02 Nephrology progress note: Acute kidney injury secondary to ATN secondary to severe sepsis. Was also on Bactrim prior to admission. Treatment: Cardiac/Telemetry monitoring Vancomycin 750 MG IVPB Once 06/28 then Vancomycin 750 MG IVPB Q 24 HRS 06/29-07/01 (PTD) Cefepime 1GM IVPB Q 12 HRS 06/28-07/04 Is there an additional diagnosis that is clinically appropriate for this patient? [ ] Sepsis due to UTI, POA, with culture positive for Chaparrita albicans [ ] Unable to determine [ ] Other, please specify (Template Last Reviewed: April 2022) This clearly is not it needed please look at the documentation , Progress note or discharge summary MTDD
--- NOTE | 2023-07-05 18:22 | CDI ---
Documentation Clarification Form Date: 07/05/2023 06:12:00 PM From: Rula Garrison RN, CCDS Phone: [phone] Admit Date: 06/29/2023 01:11:00 AM Patient Name: Juan Francisco Grande Visit Number: [id number] Discharge Date: ATTENTION: The Clinical Documentation Specialists (CDI) and [facility] Coding Staff appreciate your assistance in clarifying documentation. Please respond to the clarification below the line at the bottom and electronically sign. The CDI & [facility] Coding staff will review the response and follow-up if needed. Please note: Queries are made part of the Legal Health Record. If you have any questions, please contact the author of this message via ITS. Dr. Kian Kennedy The Registered Dietitian assessment on 07/01/23 indicates this patient meets criteria for malnutrition acute, . Based on this information and the findings below, is there an additional diagnosis that is clinically appropriate for this patient? History/Risk Factors: Hypoxia, PNA, NSTEMI, hyperkalemia CHF, Afib, MVP, RA, currently resides in [facility]. Clinical Indicators: 82-year-old female pt states it has been >1 week since she ate solid foods. Current BMI: 18.2 kg/m2, She is frail. multiple pressure injuries appetite poor, concerns for aspiration RD Consult Assessment: Underweight Malnutrition acute, severe Treatment: Full liquid and await TAIL [employer]ARD [employer] recommendation. Commercial beverage, Ensure compact TID Monitor PO, tolerance. Is there an additional diagnosis that is clinically appropriate for this patient? [ x] Mild Protein-Calorie Malnutrition [ ] Moderate Protein-Calorie Malnutrition [ ] Severe Protein-Calorie Malnutrition [ ] Other condition, please specify [ ] Unable to Determine (Template Last Revised: September 2022) MTDD
[2023-07-05 19:56] LABS: Glucose,Whole Blood 155 mg/dL (70-110)
--- NOTE | 2023-07-05 21:33 | P.PN ---
Subjective Progress Note Date: 07/05/23 patient is a 82-year-old lady with past medical history significant for congestive heart failure, atrial fibrillation with RVR,presented to the ER because of worsening shortness of breath. Patient was only recently discharged on 06/25 after being treated in the hospital for similar complaints.after discha rge, patient was all right for 1 day but started noticing that she was getting more short of breath on exertion. Patient denied any chest pain. There was no complain of orthopnea or PND. There was no complain of swelling of feet. There was no complain of fever or chills. Patient oxygen requirements were also increasing so she was transferred back to the ER Initial lab work done in the ER showed WBC 28, hemoglobin 10.5, platelet count 332, INR 3.7, sodium 138, potassium 6.2, BUN 79, creatinine1.71, AST 378, ALT 350, troponin 0.247 EKG done in the ER showed heart rate of 81 , no ST segment elevation or depression seen, no T-wave inversions seen. Chest x-ray done in the ER showed cardiomegaly and moderate vascular congestion Patient admitted to internal medicine service 06/29. Patient seen and examined. Blood work done this morning showed WBC 19.8, hemoglobin 8.6, sodium 135, potassium 4.4, BUN 70, creatinine 1.21. Ox requirements have improved, currently on 6 L of oxygen. Patient is much more talkative compared to yesterday. Answering questions. 07/01/2023 Patient examined today in follow up. Remains on 6L of oxygen, more awake and alert. She continues on clear liquid diet which will be upgraded pending speech therapy recommendations as there is concern for aspiration. Indwelling catheter remains in place for urinary retention with concern for acute UTI which family feels was caused from the IDC placed prior to her previous discharge. She has been started on cefepime and vancomycin with concern for sepsis. White blood cell count has normalized to 5.7. Hemoglobin 7.1. INR 6.4 and warfarin remains on hold. Renal function stable. LFTs remain significantly elevated. 07/02/2023 Patient is evaluated today on the medical floor. Weaned down to 4L of oxygen. LFTs remain elevated. Gallbladder ultrasound completed revealing hepatic steatosis with ascites adjacent to the liver suspected. Echogenic materinal within the gallbladder lumen with masslike appearance. Borderline wall thickening. Hemoglobin 6.9 today. Patient will receive 1 unit of blood. Covid PCR positive. 07/03/2023 Patient continues to report feeling fatigued. Was able to be weaned down to 2L of oxygen. Does have visible bruising over the left abdomen. Had abdominal pelvis CT done today which reveals a 6.8 x 2.6 x 12 cm left abdominal rectus hematoma. INR has improved down to 1.2 and this will likely only need conservative management however general surgery was consulted. There is also mention of distended gallbladder although no mention of an acute cholecystitis, dilated ducted. Patient has consistently elevated LFTs this could be due to infection however general surgery recommending HIDA scan. Left ankle xray was completed due to the bruising and mild soft tissue swelling patient states this was injured end of March when she fell. There is no acute fracture noted and patient would benefit from icing and elevation as well as light compression. 07/04/2023 Patient is evaluated on the medical floor. Continues to feel fatigued. Has not been out of bed much and has fair appetite. Family has been coming to assist with meal time feeding. General surgery following for the rectus sheath hematoma and INR has normalized and patient is being monitored off coumadin at this time. HIDA scan completed for further evaluation of the gallbladder which was normal. Recommendations for cholecystectomy however after cardiology re-evaluation felt patient was high risk for surgery. Patient has significant valvular heart disease and there is concern for possible interstitial lung disease she will be taken off the amiodarone at this time. Hemoglobin is stable at 8.7. 07/05/2023 Patient is evaluated today sitting up in the chair with at the bedside. Patient has been more awake and alert and has increased appetite. Family has been coming in to help her at every meal. Hemoglobin stable at 8.6. Patient is continued on IV cefepime with ID following closely. Not a surgical candidate. Abdominal bruising improving. IDC remains and family has concerns and would like it removed before discharge to rehab. Patient remains off coumadin at this time with general surgery recommendations to continue holding. INR 1.0 today. REVIEW OF SYSTEMS: CONSTITUTIONAL: No fever, no malaise,. CARDIOVASCULAR: No chest pain, no palpitations, no syncope. PULMONARY: No shortness of breath, no cough, GASTROINTESTINAL: No diarrhea, no nausea, no vomiting, no abdominal pain. NEUROLOGICAL: No headaches, no weakness, PHYSICAL EXAMINATION: GENERAL: The patient is alert and oriented x3, not in any acute distress. Ill looking HEENT: Pupils are round and equally reacting to light. EOMI. No scleral icterus. No conjunctival pallor. Normocephalic, atraumatic. No pharyngeal erythema. No thyromegaly. CARDIOVASCULAR: S1 and S2 present. Murmur audible in the mitral area PULMONARY: Coarse breath sound bilaterally, expiratory rhonchi audible ABDOMEN: Soft, nontender, nondistended, normoactive bowel sounds. No palpable organomegaly. abdominal bruising and swelling on flank and suprapubic region. MUSCULOSKELETAL: No joint swelling or deformity. EXTREMITIES: No cyanosis, clubbing, or pedal edema. NEUROLOGICAL: Gross neurological examination did not reveal any focal deficits. Diffuse weakness. SKIN: No rashes. bruising to the left ankle. Assessment and plan Acute hypoxic respiratory failure due to asthma exacerbation; requiring 6L and has weaned to room air. Non-ST elevation WI Left abdominal rectus sheath hematoma Acute on chronic diastolic heart failure; Moderate to severe mitral calcification, moderate to severe mitral stenosis, mild aortic regurgitation and stenosis, Pulmonary hypertension WHO class II. Hyperkalemia normalized Anemia iron deficient with acute blood loss anemia from the left rectus sheath hematoma Acute transaminitis with concern for acute cholecystitis, HIDA scan normal. Not a surgical candidate at this time. Acute UTI with sepsis POA. Acute kidney injury Recent hospitalization for COVID in May, PCR still positive; not in active infection. Warfarin toxicity resolved. Paroxysmal atrial fibrillation currently maintaining normal sinus rhyhtm. History of coronary artery disease with previous PCI/stent x3 History of hyperlipidemia History of hypertension Rheumatoid arthritis History of hypothyroidism Mild protein calorie malnutrition Stage 2 pressure injury on right and left buttock present on admission Sacral decubitus ulcer, unstageable present on admission. Lifelong non-smoker GI prophylaxis DVT prophylaxis anticoagulation remains on hold due to the rectus sheath hematoma. INR 1.0. Full Code Plan Patient was started on amiodarone and warfarin back on 06/18 due to findings of atrial fibrillation with RVR and severe mitral stenosis. Cardiology has concerns for interstitial lung disease and amiodarone has been discontinued. Patient has been started on dronedarone. Continue on midodrine for low blood pressures Continue supportive care. Strict I's and O's, daily weights, transitioned to oral lasix Continue IV cefepime, ID following. Cultures pending. On IV ferrlecit, status post 1 unit of PRBC. Hemoglobin improved. Considered high risk for cholecystectomy and no plans for surgical intervention at this time. Coumadin has been held due to toxicity, INR currently 1.0. Remains on hold due to the anemia and rectus sheath hematoma. PT/OT following, on dysphagia chopped diet with thin liquids. Continue to turn the patient every 2 hours for pressure offloading. Zinc paste and optifoam barrier to be applied. Repeat labs in the AM. The impression and plan of care has been dictated by Janel Darden Nurse Practitioner as directed. Dr. Brent MD I have performed a history and physical examination and medical decision making of this patient, discussed the same with the dictator, and agree with the dictators assessment and plan as written, documented as a scribe. Based on total visit time, I have performed more than 50% of this visit. Objective - Vital Signs Vital signs: Vital Signs Temp 97.6 F 07/05/23 07:05 Pulse 68 07/05/23 11:22 Resp 17 07/05/23 07:05 BP 90/44 07/05/23 07:05 Pulse Ox 93 L 07/05/23 07:54 FiO2 21 07/05/23 07:54 Intake & Output 07/04/23 07/05/23 07/05/23 18:59 06:59 18:59 Intake Total 50 120 Output Total 1100 600 Balance -1050 -600 120 Weight 53.5 kg 53.5 kg Intake: Oral 50 120 Output: Urine 1100 600 Other: Voiding Method Indwelling Catheter Indwelling Catheter Indwelling Catheter # Bowel Movements 1 - Labs CBC & Chem 7: 07/05/23 07:48 07/05/23 07:48 Labs: Abnormal Lab Results - Last 24 Hours (Table) 07/04/23 07/05/23 07/05/23 Range/Units 20:41 07:48 07:48 RBC 2.80 L (4.10-5.20) X 10*6/uL Hgb 8.6 L (12.0-15.0) g/dL Hct 28.0 L (37.2-46.3) % MCV 100.0 H (80.0-97.0) FL MCHC 30.7 L (32.0-37.0) g/dL RDW 18.6 H (11.5-14.5) % Lymphocytes # (Manual) 0.24 L (0.90-5.00) X 10*3/uL Eosinophils # (Manual) 0 L (0.04-0.35) X 10*3/uL BUN 52.4 H (9.0-27.0) mg/dL Est GFR (CKD-EPI) 38 L (>=60) BUN/Creatinine Ratio 37.43 H (12.00-20.00) Ratio POC Glucose (mg/dL) 168 H (70-110) mg/dL Calcium 8.3 L (8.7-10.3) mg/dL AST 184 H (13-35) U/L ALT 218 H (8-44) U/L Alkaline Phosphatase 153 H (41-126) U/L Total Protein 4.7 L (6.2-8.2) g/dL Albumin 2.0 L (3.8-4.9) g/dL Albumin/Globulin Ratio 0.74 L (1.60-3.17) Ratio Microbiology - Last 24 Hours (Table) 07/02/23 15:00 Urine Culture - Final Urine,Catheterized Chaparrita albicans 06/29/23 02:35 Blood Culture - Final Blood 06/29/23 02:20 Blood Culture - Final Blood Assessment and Plan Time with Patient: Less than 30
--- NOTE | 2023-07-05 21:46 | P.PN ---
Subjective Progress Note Date: 07/05/23 Principal diagnosis: Reason for follow-up is sepsis UTI/pneumonia Patient is a 82-year-old female with a past medical history significant for hypertension hyperlipidemia mitral valve prolapse rheumatoid arthritis heart failure patient has been brought into the hospital for evaluation of increasing shortness of breath patient was initially admitted to the ICU concerning for sepsis secondary to possible pneumonia/UTI versus hepatobiliary source. On today's evaluation that is 07/05/2023, the patient continues to be afebrile, the patient is on room air and breathing comfortably, the Pt denies having any chest pain or cough, the patient denies having any abdominal pain no vomiting or any diarrhea has been reported by the nursing staff, mention feeling slightly better today. Patient white count is 8.04 creatinine is 1.4 Objective - Vital Signs Vital signs: Vital Signs Temp 97.5 F L 07/05/23 13:03 Pulse 70 07/05/23 15:03 Resp 17 07/05/23 13:03 BP 97/49 07/05/23 13:03 Pulse Ox 93 L 07/05/23 13:03 FiO2 21 07/05/23 07:54 Intake & Output 07/05/23 07/05/23 07/06/23 06:59 18:59 06:59 Intake Total 870 Output Total 600 450 Balance -600 420 Weight 53.5 kg Intake: Intake, IV Titration 150 Amount Cefepime 1 gm In Sodium 50 Chloride 0.9% 50 ml @ 12. 5 mls/hr IVPB Q12HR PAUL Rx#:[id number] Sodium Ferric Gluconat- 100 Sucrose 125 mg In Sodium Chloride 0.9% 100 ml @ 100 mls/hr IVPB DAILY PAUL Rx#:[id number] Oral 720 Output: Urine 600 450 Other: Voiding Method Indwelling Catheter Indwelling Catheter # Bowel Movements 1 1 - Exam GENERAL DESCRIPTION: An elderly female lying in bed in no distress RESPIRATORY SYSTEM: Unlabored breathing , decreased breath sounds at bases HEART: S1 S2 regular rate and rhythm , ABDOMEN: Soft , left abdominal wall tenderness EXTREMITIES: No edema feet - Labs CBC & Chem 7: 07/05/23 07:48 07/05/23 07:48 Labs: Abnormal Lab Results - Last 24 Hours (Table) 07/05/23 07/05/23 07/05/23 Range/Units 07:48 07:48 16:37 RBC 2.80 L (4.10-5.20) X 10*6/uL Hgb 8.6 L (12.0-15.0) g/dL Hct 28.0 L (37.2-46.3) % MCV 100.0 H (80.0-97.0) FL MCHC 30.7 L (32.0-37.0) g/dL RDW 18.6 H (11.5-14.5) % Lymphocytes # (Manual) 0.24 L (0.90-5.00) X 10*3/uL Eosinophils # (Manual) 0 L (0.04-0.35) X 10*3/uL BUN 52.4 H (9.0-27.0) mg/dL Est GFR (CKD-EPI) 38 L (>=60) BUN/Creatinine Ratio 37.43 H (12.00-20.00) Ratio POC Glucose (mg/dL) 126 H (70-110) mg/dL Calcium 8.3 L (8.7-10.3) mg/dL AST 184 H (13-35) U/L ALT 218 H (8-44) U/L Alkaline Phosphatase 153 H (41-126) U/L Total Protein 4.7 L (6.2-8.2) g/dL Albumin 2.0 L (3.8-4.9) g/dL Albumin/Globulin Ratio 0.74 L (1.60-3.17) Ratio // Range/Units 19:53 RBC (4.10-5.20) X 10*6/uL Hgb (12.0-15.0) g/dL Hct (37.2-46.3) % MCV (80.0-97.0) FL MCHC (32.0-37.0) g/dL RDW (11.5-14.5) % Lymphocytes # (Manual) (0.90-5.00) X 10*3/uL Eosinophils # (Manual) (0.04-0.35) X 10*3/uL BUN (9.0-27.0) mg/dL Est GFR (CKD-EPI) (>=60) BUN/Creatinine Ratio (12.00-20.00) Ratio POC Glucose (mg/dL) 155 H (70-110) mg/dL Calcium (8.7-10.3) mg/dL AST (13-35) U/L ALT (8-44) U/L Alkaline Phosphatase (41-126) U/L Total Protein (6.2-8.2) g/dL Albumin (3.8-4.9) g/dL Albumin/Globulin Ratio (1.60-3.17) Ratio Microbiology - Last 24 Hours (Table) 07/02/23 15:00 Urine Culture - Final Urine,Catheterized Chaparrita albicans Assessment and Plan (1) UTI (urinary tract infection) Current Visit: Yes Status: Acute Code(s): N39.0 - URINARY TRACT INFECTION, SITE NOT SPECIFIED SNOMED Code(s): 15382091 (2) Elevated liver enzymes Current Visit: Yes Status: Acute Code(s): R74.8 - ABNORMAL LEVELS OF OTHER SERUM ENZYMES SNOMED Code(s): 964574315 (3) Pneumonia Current Visit: Yes Status: Acute Code(s): J18.9 - PNEUMONIA, UNSPECIFIED ORGANISM SNOMED Code(s): 530435429 (4) Leukocytosis Current Visit: No Status: Acute Code(s): D72.829 - ELEVATED WHITE BLOOD CELL COUNT, UNSPECIFIED SNOMED Code(s): 817231552 (5) Diarrhea Current Visit: Yes Status: Acute Code(s): R19.7 - DIARRHEA, UNSPECIFIED SNOMED Code(s): 36309506 Plan: 1patient presented hospital with increasing shortness of breath which is likely multifactorial with a question of venous congestion/pneumonia not entirely excluded, patient also have a positive UA and elevated liver enzymes 2blood cultures currently pending MRSA nasal swab came back negative, vancomycin discontinued 3-patient CT abdominal pelvis with a rectus sheath hematoma also noticed to have a distended gallbladder HIDA scan has been negative Forpatient is currently afebrile white count normal cultures have been negative on cefepime will transition to oral antibiotics On discharge Dictation was produced using [employer] dictation software. please excuse any grammatical, word or spelling errors. Time with Patient: Less than 30
[2023-07-06 07:07] LABS: Glucose,Whole Blood 99 mg/dL (70-110)
[2023-07-06 09:25] LABS: HCT 27.7 % (37.2-46.3); HGB 8.5 g/dL (12.0-15.0); MCH 29.6 pg (27.0-32.0); MCHC 30.7 g/dL (32.0-37.0); MCV 96.5 FL (80.0-97.0); Mean Platelet Volume 11.3 FL (9.5-12.2); NRBC Per 100 WBC 0.03 X 10*3/uL (0.00-0.01); Platelet Count 167 X 10*3/uL (140-440); RBC 2.87 X 10*6/uL (4.10-5.20); RDW 18.6 % (11.5-14.5); WBC 11.79 X 10*3/uL (4.50-10.00)
[2023-07-06 09:52] LABS: BUN/Creat Ratio 44.18 Ratio (12.00-20.00); Blood Urea Nitrogen 48.6 mg/dL (9.0-27.0); Calcium 8.3 mg/dL (8.7-10.3); Carbon Dioxide 25.7 mmol/L (21.6-31.8); Chloride 100 mmol/L (96-109); Glucose 88 mg/dL (70-110); Magnesium 1.8 mg/dL (1.5-2.4); Potassium 3.4 mmol/L (3.5-5.5); Sodium 137 mmol/L (135-145)
[2023-07-06 10:24] LABS: Basophils # (M) 0 X 10*3/uL (0.00-0.10); Eosinophils # (M) 0 X 10*3/uL (0.04-0.35); Lymphocytes # (M) 0.59 X 10*3/uL (0.90-5.00); Metamyelocytes % 1 % (0-0); Monocytes # (M) 0.35 X 10*3/uL (0.20-1.00); Myelocytes % 2 % (0-0); Neutrophils # (M) 10.14 X 10*3/uL (1.80-7.70); Neutrophils % (M) 86 %; Promyelocytes # (M) 0.35 k/uL (0); Promyelocytes % 3 %; RBC Morphology Normal (Normal)
[2023-07-06 11:09] LABS: Glucose,Whole Blood 135 mg/dL (70-110)
[2023-07-06] MEDS ORDERED: Potassium Replacement Protocol 1 EACH MISC MISCELLANE PRN (12:57)
[2023-07-06] MEDS: POTASSIUM CHLORIDE ER 20 MEQ TAB.ER PO SCH (14:00)
--- NOTE | 2023-07-06 14:05 | P.PN ---
Subjective Progress Note Date: 07/06/23 Patient is seen in follow-up for acute kidney injury. Renal function stable. Hemoglobin improved post blood transfusion. No active bleeding. Oral intake improving, will attempt to get up to chair today. Vital signs are stable. General: No acute distress. HEENT: Head exam is unremarkable. On nasal cannula. LUNGS: No audible rhonchi or wheezes. HEART: Rate and Rhythm are regular. ABDOMEN: Nontender. EXTREMITITES: No edema. Objective - Vital Signs Vital signs: Vital Signs Temp 97.4 F L 07/06/23 07:42 Pulse 68 07/06/23 11:34 Resp 17 07/06/23 07:42 BP 95/48 07/06/23 07:42 Pulse Ox 93 L 07/06/23 07:42 FiO2 21 07/05/23 07:54 Intake & Output 07/05/23 07/06/23 07/06/23 18:59 06:59 18:59 Intake Total 870 Output Total 450 1200 250 Balance 420 -1200 -250 Weight 53.5 kg Intake: Intake, IV Titration 150 Amount Cefepime 1 gm In Sodium 50 Chloride 0.9% 50 ml @ 12. 5 mls/hr IVPB Q12HR PAUL Rx#:[id number] Sodium Ferric Gluconat- 100 Sucrose 125 mg In Sodium Chloride 0.9% 100 ml @ 100 mls/hr IVPB DAILY PAUL Rx#:[id number] Oral 720 Output: Urine 450 1200 250 Other: Voiding Method Indwelling Catheter Indwelling Catheter # Bowel Movements 1 4 - Labs CBC & Chem 7: 07/06/23 03:59 07/06/23 03:59 Labs: Abnormal Lab Results - Last 24 Hours (Table) 07/05/23 07/05/23 07/06/23 Range/Units 16:37 19:53 03:59 WBC (4.50-10.00) X 10*3/uL RBC (4.10-5.20) X 10*6/uL Hgb (12.0-15.0) g/dL Hct (37.2-46.3) % MCHC (32.0-37.0) g/dL RDW (11.5-14.5) % Lymphocytes # (Manual) (0.90-5.00) X 10*3/uL Eosinophils # (Manual) (0.04-0.35) X 10*3/uL NRBC/100 WBC Diff (0.00-0.01) X 10*3/uL Potassium 3.4 L (3.5-5.5) mmol/L BUN 48.6 H (9.0-27.0) mg/dL Est GFR (CKD-EPI) 51 L (>=60) BUN/Creatinine Ratio 44.18 H (12.00-20.00) Ratio POC Glucose (mg/dL) 126 H 155 H (70-110) mg/dL Calcium 8.3 L (8.7-10.3) mg/dL 07/06/23 07/06/23 Range/Units 03:59 11:07 WBC 11.79 H (4.50-10.00) X 10*3/uL RBC 2.87 L (4.10-5.20) X 10*6/uL Hgb 8.5 L (12.0-15.0) g/dL Hct 27.7 L (37.2-46.3) % MCHC 30.7 L (32.0-37.0) g/dL RDW 18.6 H (11.5-14.5) % Lymphocytes # (Manual) 0.59 L (0.90-5.00) X 10*3/uL Eosinophils # (Manual) 0 L (0.04-0.35) X 10*3/uL NRBC/100 WBC Diff 0.03 H (0.00-0.01) X 10*3/uL Potassium (3.5-5.5) mmol/L BUN (9.0-27.0) mg/dL Est GFR (CKD-EPI) (>=60) BUN/Creatinine Ratio (12.00-20.00) Ratio POC Glucose (mg/dL) 135 H (70-110) mg/dL Calcium (8.7-10.3) mg/dL Assessment and Plan Plan: Assessment: 1. Acute kidney injury secondary to ATN secondary to severe sepsis. Was also on Bactrim prior to admission. No hydronephrosis noted on kidney ultrasound/CT. Creatinine 1.7 on admission and improved 1.1 today. Now on lasix. 2. Chronic diastolic CHF with severe pulmonary hypertension, mild to moderate aortic stenosis, moderate aortic regurgitation, severe mitral stenosis. 3. Hyperkalemia secondary to acute kidney injury on Bactrim. Improved. 4. Mild volume overload. On Lasix. 5. Acute blood loss anemia. Status post blood transfusion this admission. Bet ter. 6. Hyponatremia from poor solute intake. Hypervolemic. Improved. 7. Recent COVID infection. 8. Left abdominal rectus sheath hematoma. Surgery following. Plan: Maintain oral Lasix. Encouraged oral intake. Maintain 1500 cc fluid restriction. Maintain IV iron. Avoid nephrotoxins. Continue to monitor renal function and urine output. On midodrine. Hold for systolic blood pressure greater than 110.
--- NOTE | 2023-07-06 15:08 | P.PN ---
Subjective Progress Note Date: 07/06/23 This is an 82-year-old female, familiar to my service, patient was recently in the hospital with acute COVID-19 pneumonia, congestive heart failure, atrial fibrillation with RVR, possible underlying interstitial lung disease, patient was discharged on 06/26/2023, pulmonary service has seen this patient initially on 06/09/2023, at that time the patient was admitted with acute hypoxic respiratory failure, acute COVID-19 pneumonia, chronic bronchial asthma, and possible hospital-acquired pneumonia. In addition the patient had mild intermittent asthma, congestive heart failure, severe mitral calcification and moderate to severe mitral stenosis with preserved LV function and preserved ejection fraction. She also has history of rheumatoid arthritis, hypothyroidism, and lifelong non-smoker. We saw this patient last on 06/26/2023,, she was on 2 L nasal cannula, her labs were unremarkable, her sputum cultures were nondiagnostic, blood cultures were nondiagnostic, she had relatively normal renal profile, and she was at the time on warfarin, Symbicort, Singulair and albuterol. Patient was discharged to the [facility] on the [place]. Patient was discharged on amiodarone, Coumadin, prednisone 20 mg daily, Lopressor, and nystatin swish and swallow. Otherwise the patient was kept on her usual medications including Symbicort, Jardiance, levothyroxine, Singulair, Fosamax, ascorbic acid, atorvastatin, Lasix 40 mg p.o. daily, and Xanax. As well as albuterol. Patient was sent from the [facility] down to the ER today mostly because of low O2 saturation, and patient was noted to have some shortness of breath. Chest x-ray on this admission showed cardiomegaly and mild pulmonary vascular congestion, no clear-cut evidence of pneumonia. As a matter fact her chest x-ray shows significant improvement compared to her initial chest x-ray on her last admission. In addition to her shortness of breath, patient was noted to have abnormal labs with a potassium of 6.2, her BUN is 79 and creatinine 1.71. Patient was also noted to have elevated BNP level of 27,000 and troponin leak. ABG on 50% FiO2 showed a pO2 of 69 pCO2 48 pH of 7.54. Patient is now on 3 L nasal cannula, seems to be comfortable, not in distress. Seen by nephrology for her acute kidney injury, ATN, hyperkalemia with acute kidney injury and apparently the patient was on Bactrim and the recommendation by nephrology was to continue with IV fluids, IV antibiotics, and repeat labs in AM. Patient has a very poor urine output, I did recommend a fluid bolus of 500 cc of saline while in the ER, blood pressure is marginal. Considering her marginal low blood pressure, I am recommending that the patient goes to the ICU. Nephrology is addressing her abnormal renal profile and hyperkalemia The patient is seen today June 30, 2023 in follow-up in the emergency department. She is currently sitting up in the stretcher. Awake and alert in no acute distress. Doing quite a bit better today compared to yesterday. Tolerating a clear liquid breakfast. Maintaining O2 saturations in the upper 90s on 6 L/min per nasal cannula. She has been afebrile. Hemodynamically stable. X-ray reveals some diffuse hazy and patchy bilateral airspace disease. Blood cultures are pending. White count 19.8. Hemoglobin 8.6. Platelets 210. Sodium 135. Potassium 4.4. Bicarb 32. BUN 70. Creatinine 1.21. Glucose 149. AST 250. ALT 242. Alk phos 403. Echocardiogram reveals a hyperdynamic LV with a EF around 70%. There is severe mitral stenosis and moderate aortic stenosis. Severe pulmonary hypertension with an RVSP exceeding 50 mmHg. She is continued on DuoNeb ventilations, IV diuretics, antibiotics in the form of vancomycin and cefepime. Procalcitonin pending. The patient is seen today July 01, 2023 in follow-up on the regular medical floor. She is currently sitting up in bed. Awake and alert in no acute distress. She is maintaining O2 saturations in the 90s on 6 L high flow nasal cannula. Her procalcitonin was 1.16. She remains on cefepime and vancomycin. Cultures are pending. Creatinine 1.18. Glucose 121. INR 6.4. She remains on bronchodilators, oral diuretics, anticoagulated with warfarin. The patient is seen today July 02, 2023 in follow-up on the regular medical floor. She is currently resting in bed. Awake and alert in no acute distress. She is maintaining good O2 saturations up to 100% on 6 L/min per nasal cannula. She is afebrile. Hemodynamically stable. Ultrasound of the abdomen reveals hepatic steatosis with ascites adjacent to the liver. Echogenic material within the gallbladder lumen with masslike appearance. Borderline gallbladder wall thickening. Hemoglobin 6.9. She is receiving 1 unit of packed red blood cells. Platelets 113. White count 4.7. INR 2.3. Sodium 135. Potassium 5.3. Bicarb 29. BUN 58. Creatinine 1.4. Glucose 103. She is continued on DuoNeb inh alations, cefepime and vancomycin. Remains on oral diuretics. The patient is seen today July 03, 2023 in follow-up on the regular medical floor. She is awake and alert in no acute distress. Sitting up in bed. Denies any worsening shortness of breath, cough or congestion. She is down to 2 L/min per nasal cannula. No IV fluids. She is continued on Maxipime and vancomycin. CT scan of the abdomen and pelvis reveals a left rectus hematoma. Moderate cardiomegaly. Moderate to severe diffuse opacities in the lungs could be due to edema atelectasis or infection. Chronic and likely incidental findings. X-ray of the left ankle reveals no evidence of acute fracture. Status post 1 unit of packed red blood cells this admission. Current hemoglobin 8.7. White count 4.5. Platelets 110. Sodium 130. Potassium 4.6. Bicarb 30. BUN 57. Creatinine 1.53. Glucose 87. AST 292. ALT 235. Vancomycin trough 18.0. She remains on DuoNeb inhalations. Oral diuretics. Receiving iron supplements. The patient is seen today July 04, 2023 in follow-up on the regular medical floor. He is currently sitting up in bed. Awake and alert in no acute distress. Maintaining good O2 saturations in the 90s on 2 L/min per nasal cannula. She denies any worsening shortness of breath, cough or congestion. She denies any abdominal pain. No fever or chills. White count 4.6. Hemoglobin 8.7. Platelets 123. Sodium 133. Potassium 4.4. Bicarb 26. BUN 51. Creatinine 1.3. Glucose 97. AST 211. ALT 214. Alk phos 164. Hepatobiliary scan pending. Chest x-ray reveals stable scattered airspace disease unchanged compared to previous. The patient is seen today July 05, 2023 in follow-up on the regular medical floor. She is resting comfortably in bed. Awake and alert in no acute distre ss. She is now on room air. No IV fluids. She remains on cefepime. Continued on bronchodilators. Continued on oral diuretics. Urine culture positive for [place]. Blood cultures revealed no growth. White count 8.0. Hemoglobin 8.6. Platelets 149. Sodium 136. Potassium 4.1. Bicarb 52. Creatinine 1.4. AST 218. ALT 153. Hepatobiliary scan was within normal limits. Currently in a negative 1.6 L balance. The patient is seen today July 06, 2023 in follow-up on the regular medical [facility] or. She is sitting up in bed. Family is at the bedside. She remains quite weak and debilitated. She is maintaining good O2 saturations in the 90s on room air. She remains on cefepime. Continued on bronchodilators. Remains on oral diuretics. White count 11.7. Hemoglobin 8.5. Platelets 167. Sodium 137. Potassium 3.4. Bicarb 26. BUN 49. Creatinine 1.1. Glucose 88. Objective - Vital Signs Vital signs: Vital Signs Temp 97.6 F 07/06/23 13:56 Pulse 63 07/06/23 13:56 Resp 16 07/06/23 13:56 BP 91/50 07/06/23 13:56 Pulse Ox 95 07/06/23 13:56 FiO2 21 07/05/23 07:54 Intake & Output 07/05/23 07/06/23 07/06/23 18:59 06:59 18:59 Intake Total 870 Output Total 450 1200 250 Balance 420 -1200 -250 Weight 53.5 kg Intake: Intake, IV Titration 150 Amount Cefepime 1 gm In Sodium 50 Chloride 0.9% 50 ml @ 12. 5 mls/hr IVPB Q12HR [facility] Rx#:[id number] Sodium Ferric Gluconat- 100 Sucrose 125 mg In Sodium Chloride 0.9% 100 ml @ 100 mls/hr IVPB DAILY [facility] Rx#:[id number] Oral 720 Output: Urine 450 1200 250 Other: Voiding Method Indwelling Catheter Indwelling Catheter # Bowel Movements 1 4 - Exam GENERAL EXAM: Alert, frail, weak 82-year-old female, stable and on room air, in no apparent distress. HEAD: Normocephalic. EYES: Normal reaction of pupils, equal size. NOSE: Clear with pink turbinates. THROAT: No erythema or exudates. NECK: No masses, no JVD. CHEST: No chest wall deformity. LUNGS: Equal air entry with crackles in the bilateral bases. CVS: S1 and S2 normal with no audible murmur, regular rhythm. ABDOMEN: No hepatosplenomegaly, normal bowel sounds, no guarding or rigidity. SPINE: No scoliosis or deformity SKIN: No rashes CENTRAL NERVOUS SYSTEM: No focal deficits, tone is normal in all 4 extremities. EXTREMITIES: There is no peripheral edema. No clubbing, no cyanosis. Peripheral pulses are intact. - Labs CBC & Chem 7: 07/06/23 03:59 07/06/23 03:59 Labs: Abnormal Lab Results - Last 24 Hours (Table) 07/05/23 07/05/23 07/06/23 Range/Units 16:37 19:53 03:59 WBC (4.50-10.00) X 10*3/uL RBC (4.10-5.20) X 10*6/uL Hgb (12.0-15.0) g/dL Hct (37.2-46.3) % MCHC (32.0-37.0) g/dL RDW (11.5-14.5) % Lymphocytes # (Manual) (0.90-5.00) X 10*3/uL Eosinophils # (Manual) (0.04-0.35) X 10*3/uL NRBC/100 WBC Diff (0.00-0.01) X 10*3/uL Potassium 3.4 L (3.5-5.5) mmol/L BUN 48.6 H (9.0-27.0) mg/dL Est GFR (CKD-EPI) 51 L (>=60) BUN/Creatinine Ratio 44.18 H (12.00-20.00) Ratio POC Glucose (mg/dL) 126 H 155 H (70-110) mg/dL Calcium 8.3 L (8.7-10.3) mg/dL 07/06/23 07/06/23 Range/Units 03:59 11:07 WBC 11.79 H (4.50-10.00) X 10*3/uL RBC 2.87 L (4.10-5.20) X 10*6/uL Hgb 8.5 L (12.0-15.0) g/dL Hct 27.7 L (37.2-46.3) % MCHC 30.7 L (32.0-37.0) g/dL RDW 18.6 H (11.5-14.5) % Lymphocytes # (Manual) 0.59 L (0.90-5.00) X 10*3/uL Eosinophils # (Manual) 0 L (0.04-0.35) X 10*3/uL NRBC/100 WBC Diff 0.03 H (0.00-0.01) X 10*3/uL Potassium (3.5-5.5) mmol/L BUN (9.0-27.0) mg/dL Est GFR (CKD-EPI) (>=60) BUN/Creatinine Ratio (12.00-20.00) Ratio POC Glucose (mg/dL) 135 H (70-110) mg/dL Calcium (8.7-10.3) mg/dL Assessment and Plan Assessment: Acute on chronic hypoxic respiratory failure, multifactorial, recovered and on room air Acute on chronic congestive heart failure with preserved ejection fraction hyp erdynamic LV with an ejection fraction of 70% Acute anemia with a hemoglobin of 6.9, received 1 unit of packed red blood cells, current hemoglobin 8.5 Echogenic material within the gallbladder lumen with masslike appearance. Borderline gallbladder thickening. Hepatobiliary scan within normal limits Hepatic steatosis with ascites adjacent to the liver suspected Transaminitis, trending down Severe mitral stenosis Mild to moderate aortic stenosis Severe pulmonary hypertension with RVSP exceeding 50 mmHg History of COVID-19 pneumonia and healthcare acquired pneumonia, patient was treated with remdesivir on the last admission History of rheumatoid arthritis and possibly some component of interstitial lung disease Severe mitral valve disease with severe mitral stenosis, and mild aortic regurgitation and stenosis. History of rheumatoid arthritis Hypothyroidism Lifelong non-smoker Mild intermittent asthma Acute kidney injury/ATN Acute hyperkalemia secondary to acute kidney injury, patient had recent treatment with Bactrim for a UTI. Pyuria, UTI, possible sepsis from urinary tract infection Plan: The patient was seen and evaluated Labs and medications reviewed Stable and on room air Continue the current treatment plan Increase her activity as tolerated Plan is for subacute rehab post discharge I have personally seen and examined the patient, performed the documentation and the assessment and plan as written. Number of minutes spent on the visit: 10.
[2023-07-06 16:50] LABS: Glucose,Whole Blood 117 mg/dL (70-110)
--- NOTE | 2023-07-06 17:23 | P.PN ---
Subjective Progress Note Date: 07/06/23 Family at bedside. Patient is tolerating diet however "I want my ice chips." She is on fluid restrictions per nephrology for congestive heart failure and kidney disease. Abdomen: No peritonitis. Nontender. Plan: 1. Patient has rectus sheath hematoma including global severe heart disease for which surgical invention is not recommended. 2. Fluid restriction per nephrology. 3. Low-fat diet reiterated with family and patient. Objective - Vital Signs Vital signs: Vital Signs Temp 97.6 F 07/06/23 14:00 Pulse 72 07/06/23 15:28 Resp 18 07/06/23 14:00 BP 91/50 07/06/23 14:00 Pulse Ox 95 07/06/23 14:00 FiO2 21 07/05/23 07:54 Intake & Output 07/05/23 07/06/23 07/06/23 18:59 06:59 18:59 Intake Total 870 Output Total 450 1200 250 Balance 420 -1200 -250 Weight 53.5 kg Intake: Intake, IV Titration 150 Amount Cefepime 1 gm In Sodium 50 Chloride 0.9% 50 ml @ 12. 5 mls/hr IVPB Q12HR [facility] Rx#:[id number] Sodium Ferric Gluconat- 100 Sucrose 125 mg In Sodium Chloride 0.9% 100 ml @ 100 mls/hr IVPB DAILY [facility] Rx#:[id number] Oral 720 Output: Urine 450 1200 250 Other: Voiding Method Indwelling Catheter Indwelling Catheter # Bowel Movements 1 4 - Labs CBC & Chem 7: 07/06/23 03:59 07/06/23 03:59 Labs: Abnormal Lab Results - Last 24 Hours (Table) 07/05/23 07/06/23 07/06/23 Range/Units 19:53 03:59 03:59 WBC 11.79 H (4.50-10.00) X 10*3/uL RBC 2.87 L (4.10-5.20) X 10*6/uL Hgb 8.5 L (12.0-15.0) g/dL Hct 27.7 L (37.2-46.3) % MCHC 30.7 L (32.0-37.0) g/dL RDW 18.6 H (11.5-14.5) % Lymphocytes # (Manual) 0.59 L (0.90-5.00) X 10*3/uL Eosinophils # (Manual) 0 L (0.04-0.35) X 10*3/uL NRBC/100 WBC Diff 0.03 H (0.00-0.01) X 10*3/uL Potassium 3.4 L (3.5-5.5) mmol/L BUN 48.6 H (9.0-27.0) mg/dL Est GFR (CKD-EPI) 51 L (>=60) BUN/Creatinine Ratio 44.18 H (12.00-20.00) Ratio POC Glucose (mg/dL) 155 H (70-110) mg/dL Calcium 8.3 L (8.7-10.3) mg/dL 07/06/23 07/06/23 Range/Units 11:07 16:48 WBC (4.50-10.00) X 10*3/uL RBC (4.10-5.20) X 10*6/uL Hgb (12.0-15.0) g/dL Hct (37.2-46.3) % MCHC (32.0-37.0) g/dL RDW (11.5-14.5) % Lymphocytes # (Manual) (0.90-5.00) X 10*3/uL Eosinophils # (Manual) (0.04-0.35) X 10*3/uL NRBC/100 WBC Diff (0.00-0.01) X 10*3/uL Potassium (3.5-5.5) mmol/L BUN (9.0-27.0) mg/dL Est GFR (CKD-EPI) (>=60) BUN/Creatinine Ratio (12.00-20.00) Ratio POC Glucose (mg/dL) 135 H 117 H (70-110) mg/dL Calcium (8.7-10.3) mg/dL
[2023-07-06 17:45] LABS: INR 1.09 sec (0.93-1.11); Prothrombin Time 11.7 sec (9.9-11.9)
[2023-07-06 21:35] LABS: Glucose,Whole Blood 115 mg/dL (70-110)
[2023-07-06] MEDS: CEFEPIME 2 GM in SODIUM CHLORIDE 0.9% 100 ML IVPB SCH (22:10)
[2023-07-07] MEDS: ALPRAZolam 0.25 MG TAB PO PRN (01:15)
[2023-07-07 05:48] LABS: Glucose,Whole Blood 89 mg/dL (70-110)
--- NOTE | 2023-07-07 06:41 | P.PN ---
Subjective Progress Note Date: 07/06/23 patient is a 82-year-old lady with past medical history significant for congestive heart failure, atrial fibrillation with RVR,presented to the ER because of worsening shortness of breath. Patient was only recently discharged on 06/25 after being treated in the hospital for similar complaints.after dis charge, patient was all right for 1 day but started noticing that she was getting more short of breath on exertion. Patient denied any chest pain. There was no complain of orthopnea or PND. There was no complain of swelling of feet. There was no complain of fever or chills. Patient oxygen requirements were also increasing so she was transferred back to the ER Initial lab work done in the ER showed WBC 28, hemoglobin 10.5, platelet count 332, INR 3.7, sodium 138, potassium 6.2, BUN 79, creatinine1.71, AST 378, ALT 350, troponin 0.247 EKG done in the ER showed heart rate of 81 , no ST segment elevation or depression seen, no T-wave inversions seen. Chest x-ray done in the ER showed cardiomegaly and moderate vascular congestion Patient admitted to internal medicine service 06/29. Patient seen and examined. Blood work done this morning showed WBC 19.8, hemoglobin 8.6, sodium 135, potassium 4.4, BUN 70, creatinine 1.21. Ox requirements have improved, currently on 6 L of oxygen. Patient is much more talkative compared to yesterday. Answering questions. 07/01/2023 Patient examined today in follow up. Remains on 6L of oxygen, more awake and alert. She continues on clear liquid diet which will be upgraded pending speech therapy recommendations as there is concern for aspiration. Indwelling catheter remains in place for urinary retention with concern for acute UTI which family feels was caused from the IDC placed prior to her previous discharge. She has been started on cefepime and vancomycin with concern for sepsis. White blood cell count has normalized to 5.7. Hemoglobin 7.1. INR 6.4 and warfarin remains on hold. Renal function stable. LFTs remain significantly elevated. 07/02/2023 Patient is evaluated today on the medical floor. Weaned down to 4L of oxygen. LFTs remain elevated. Gallbladder ultrasound completed revealing hepatic steatosis with ascites adjacent to the liver suspected. Echogenic materinal within the gallbladder lumen with masslike appearance. Borderline wall thickening. Hemoglobin 6.9 today. Patient will receive 1 unit of blood. Covid PCR positive. 07/03/2023 Patient continues to report feeling fatigued. Was able to be weaned down to 2L of oxygen. Does have visible bruising over the left abdomen. Had abdominal pelvis CT done today which reveals a 6.8 x 2.6 x 12 cm left abdominal rectus hematoma. INR has improved down to 1.2 and this will likely only need conservative management however general surgery was consulted. There is also men tion of distended gallbladder although no mention of an acute cholecystitis, dilated ducted. Patient has consistently elevated LFTs this could be due to infection however general surgery recommending HIDA scan. Left ankle xray was completed due to the bruising and mild soft tissue swelling patient states this was injured end of March when she fell. There is no acute fracture noted and patient would benefit from icing and elevation as well as light compression. 07/04/2023 Patient is evaluated on the medical floor. Continues to feel fatigued. Has not been out of bed much and has fair appetite. Family has been coming to assist with meal time feeding. General surgery following for the rectus sheath hematoma and INR has normalized and patient is being monitored off coumadin at this time. HIDA scan completed for further evaluation of the gallbladder which was normal. Recommendations for cholecystectomy however after cardiology re-evaluation felt patient was high risk for surgery. Patient has significant valvular heart disease and there is concern for possible interstitial lung disease she will be taken off the amiodarone at this time. Hemoglobin is stable at 8.7. 07/05/2023 Patient is evaluated today sitting up in the chair with at the bedside. Patient has been more awake and alert and has increased appetite. Family has been coming in to help her at every meal. Hemoglobin stable at 8.6. Patient is continued on IV cefepime with ID following closely. Not a surgical candidate. Abdominal bruising improving. IDC remains and family has concerns and would like it removed before discharge to rehab. Patient remains off coumadin at this time with general surgery recommendations to continue holding. INR 1.0 today. 07/06/2023 Patient is seen and evaluated in follow-up this morning currently sitting up in bed asleep although arousable. Patient reports feeling tired and denies any significant pain. General surgery following with no plans of surgical intervention given significant comorbidities and not a surgical candidate. Patient is continued on IV antibiotics with infectious disease following. Nephrology following as well and patient is maintained on fluid restrictions. Oral intake remains poor to fair and is being encouraged to attempt to eat small frequent meals. Patient is currently maintaining oxygen saturations above 90% on room air and pulmonary is following closely. Awaiting PT/OT therapy to reevaluate patient will most definitely need rehab on discharge. REVIEW OF SYSTEMS: CONSTITUTIONAL: No fever, no malaise,. CARDIOVASCULAR: No chest pain, no palpitations, no syncope. PULMONARY: No shortness of breath, no cough GASTROINTESTINAL: No diarrhea, no nausea, no vomiting, no abdominal pain. Poor oral intake NEUROLOGICAL: No headaches, no weakness, PHYSICAL EXAMINATION: GENERAL: The patient is asleep although easily arousable, alert and oriented x3, not in any acute distress. Ill looking, elderly appearing, thin built. HEENT: Pupils are round and equally reacting to light. EOMI. No scleral icterus. No conjunctival pallor. Normocephalic, atraumatic. No pharyngeal erythema. No thyromegaly. CARDIOVASCULAR: S1 and S2 present. Murmur audible in the mitral area PULMONARY: Coarse breath sound bilaterally, expiratory rhonchi audible ABDOMEN: Soft, nontender, nondistended, normoactive bowel sounds. No palpable organomegaly. abdominal bruising and swelling on flank and suprapubic region. MUSCULOSKELETAL: No joint swelling or deformity. EXTREMITIES: No cyanosis, clubbing, or pedal edema. NEUROLOGICAL: Gross neurological examination did not reveal any focal deficits. Diffuse weakness. SKIN: No rashes. bruising to the left ankle. Assessment and plan Acute hypoxic respiratory failure due to asthma exacerbation; requiring 6L and has weaned to room air. Non-ST elevation DE Left abdominal rectus sheath hematoma Acute on chronic diastolic heart failure; Moderate to severe mitral calcification, moderate to severe mitral stenosis, mild aortic regurgitation and stenosis, Pulmonary hypertension WHO class II. Hyperkalemia normalized Anemia iron deficient with acute blood loss anemia from the left rectus sheath hematoma Acute transaminitis with concern for acute cholecystitis, HIDA scan normal. Not a surgical candidate at this time. Acute UTI with sepsis POA. Acute kidney injury Recent hospitalization for COVID in May, PCR still positive; not in active infection. Warfarin toxicity resolved. Paroxysmal atrial fibrillation currently maintaining normal sinus [id number]. History of coronary artery disease with previous PCI/stent x3 History of hyperlipidemia History of hypertension Rheumatoid arthritis History of hypothyroidism Mild protein calorie malnutrition Stage 2 pressure injury on right and left buttock present on admission Sacral decubitus ulcer, unstageable present on admission. Lifelong non-smoker GI prophylaxis DVT prophylaxis anticoagulation remains on hold due to the rectus sheath hematoma. INR 1.0. Full Code Plan Patient was started on amiodarone and warfarin back on 06/18 due to findings of atrial fibrillation with RVR and severe mitral stenosis. Cardiology has concerns for interstitial lung disease and amiodarone has been discontinued. Patient has been started on dronedarone. Continue on midodrine for low blood pressures Continue supportive care. Strict I's and O's, daily weights, transitioned to oral lasix, continue fluid restrictions per nephrology. Continue IV cefepime, ID following. Cultures showing Chaparrita albicans will discuss with infectious disease regarding antibiotic and medication adjustment. On IV ferrlecit, status post 1 unit of PRBC. Hemoglobin improved. Considered high risk for cholecystectomy and no plans for surgical intervention at this time. Coumadin has been held due to toxicity, INR currently 1.09. Remains on hold due to the anemia and rectus sheath hematoma. PT/OT following, on dysphagia chopped diet with thin liquids. Continue to turn the patient every 2 hours for pressure offloading. Zinc paste and optifoam barrier to be applied. Repeat labs in the AM. Due to multiple complex medical issues, overall prognosis is guarded The impression and plan of care has been dictated by Marli Ortega, Nurse Practitioner as directed. Dr. Brent MD I have performed a history and physical examination and medical decision making of this patient, discussed the same with the dictator, and agree with the dictators assessment and plan as written, documented as a scribe. Based on total visit time, I have performed more than 50% of this visit. Objective - Vital Signs Vital signs: Vital Signs Temp 97.4 F L 07/06/23 07:42 Pulse 68 07/06/23 07:42 Resp 17 07/06/23 07:42 BP 95/48 07/06/23 07:42 Pulse Ox 93 L 07/06/23 07:42 FiO2 21 07/05/23 07:54 Intake & Output 07/05/23 07/06/23 07/06/23 18:59 06:59 18:59 Intake Total 870 Output Total 450 1200 250 Balance 420 -1200 -250 Weight 53.5 kg Intake: Intake, IV Titration 150 Amount Cefepime 1 gm In Sodium 50 Chloride 0.9% 50 ml @ 12. 5 mls/hr IVPB Q12HR [facility] Rx#:[id number] Sodium Ferric Gluconat- 100 Sucrose 125 mg In Sodium Chloride 0.9% 100 ml @ 100 mls/hr IVPB DAILY [facility] Rx#:[id number] Oral 720 Output: Urine 450 1200 250 Other: Voiding Method Indwelling Catheter Indwelling Catheter # Bowel Movements 1 4 - Labs CBC & Chem 7: 07/06/23 03:59 07/06/23 03:59 Labs: Abnormal Lab Results - Last 24 Hours (Table) 07/05/23 07/05/23 07/05/23 Range/Units 07:48 07:48 16:37 WBC (4.50-10.00) X 10*3/uL RBC 2.80 L (4.10-5.20) X 10*6/uL Hgb 8.6 L (12.0-15.0) g/dL Hct 28.0 L (37.2-46.3) % MCV 100.0 H (80.0-97.0) FL MCHC 30.7 L (32.0-37.0) g/dL RDW 18.6 H (11.5-14.5) % Lymphocytes # (Manual) 0.24 L (0.90-5.00) X 10*3/uL Eosinophils # (Manual) 0 L (0.04-0.35) X 10*3/uL NRBC/100 WBC Diff (0.00-0.01) X 10*3/uL Potassium (3.5-5.5) mmol/L BUN 52.4 H (9.0-27.0) mg/dL Est GFR (CKD-EPI) 38 L (>=60) BUN/Creatinine Ratio 37.43 H (12.00-20.00) Ratio POC Glucose (mg/dL) 126 H (70-110) mg/dL Calcium 8.3 L (8.7-10.3) mg/dL AST 184 H (13-35) U/L ALT 218 H (8-44) U/L Alkaline Phosphatase 153 H (41-126) U/L Total Protein 4.7 L (6.2-8.2) g/dL Albumin 2.0 L (3.8-4.9) g/dL Albumin/Globulin Ratio 0.74 L (1.60-3.17) Ratio 07/05/23 07/06/23 07/06/23 Range/Units 19:53 03:59 03:59 WBC 11.79 H (4.50-10.00) X 10*3/uL RBC 2.87 L (4.10-5.20) X 10*6/uL Hgb 8.5 L (12.0-15.0) g/dL Hct 27.7 L (37.2-46.3) % MCV (80.0-97.0) FL MCHC 30.7 L (32.0-37.0) g/dL RDW 18.6 H (11.5-14.5) % Lymphocytes # (Manual) (0.90-5.00) X 10*3/uL Eosinophils # (Manual) (0.04-0.35) X 10*3/uL NRBC/100 WBC Diff 0.03 H (0.00-0.01) X 10*3/uL Potassium 3.4 L (3.5-5.5) mmol/L BUN 48.6 H (9.0-27.0) mg/dL Est GFR (CKD-EPI) 51 L (>=60) BUN/Creatinine Ratio 44.18 H (12.00-20.00) Ratio POC Glucose (mg/dL) 155 H (70-110) mg/dL Calcium 8.3 L (8.7-10.3) mg/dL AST (13-35) U/L ALT (8-44) U/L Alkaline Phosphatase (41-126) U/L Total Protein (6.2-8.2) g/dL Albumin (3.8-4.9) g/dL Albumin/Globulin Ratio (1.60-3.17) Ratio
[2023-07-07 09:55] LABS: HCT 28.7 % (37.2-46.3); HGB 8.8 g/dL (12.0-15.0); MCH 30.8 pg (27.0-32.0); MCHC 30.7 g/dL (32.0-37.0); MCV 100.3 FL (80.0-97.0); Mean Platelet Volume 11.6 FL (9.5-12.2); NRBC Per 100 WBC 0.02 X 10*3/uL (0.00-0.01); Platelet Count 189 X 10*3/uL (140-440); RBC 2.86 X 10*6/uL (4.10-5.20); RDW 18.7 % (11.5-14.5); WBC 12.04 X 10*3/uL (4.50-10.00)
[2023-07-07 10:02] LABS: ALT 178 U/L (8-44); AST 135 U/L (13-35); Albumin 2.1 g/dL (3.8-4.9); Albumin/Globulin Ratio 0.81 Ratio (1.60-3.17); Alkaline Phosphatase 151 U/L (41-126); BUN/Creat Ratio 43.33 Ratio (12.00-20.00); Calcium 8.4 mg/dL (8.7-10.3); Carbon Dioxide 24.7 mmol/L (21.6-31.8); Chloride 105 mmol/L (96-109); Globulin 2.6 g/dL (1.6-3.3); Glucose 79 mg/dL (70-110); Magnesium 1.6 mg/dL (1.5-2.4); Potassium 4.3 mmol/L (3.5-5.5); Sodium 137 mmol/L (135-145); Total Bilirubin 0.4 mg/dL (0.3-1.2); Total Protein 4.7 g/dL (6.2-8.2)
[2023-07-07 10:52] LABS: Basophils # (M) 0 X 10*3/uL (0.00-0.10); Eosinophils # (M) 0 X 10*3/uL (0.04-0.35); Metamyelocytes % 3 % (0-0); Monocytes # (M) 0.24 X 10*3/uL (0.20-1.00); Myelocytes % 1 % (0-0); Neutrophils # (M) 9.99 X 10*3/uL (1.80-7.70); Neutrophils % (M) 83 %; Promyelocytes # (M) 0.12 k/uL (0); Promyelocytes % 1 %; RBC Morphology Normal (Normal)
--- NOTE | 2023-07-07 11:04 | P.PN ---
Subjective Progress Note Date: 07/07/23 Patient is seen in follow-up for acute kidney injury. Renal function stable. Hemoglobin improved post blood transfusion. No active bleeding. Oral intake improving,no new complaints. Vital signs are stable. General: No acute distress. HEENT: Head exam is unremarkable. On nasal cannula. LUNGS: No audible rhonchi or wheezes. HEART: Rate and Rhythm are regular. ABDOMEN: Nontender. EXTREMITITES: No edema. Objective - Vital Signs Vital signs: Vital Signs Temp 98.1 F 07/07/23 07:14 Pulse 59 L 07/07/23 08:58 Resp 17 07/07/23 07:14 BP 105/53 07/07/23 08:58 Pulse Ox 96 07/07/23 07:14 FiO2 21 07/05/23 07:54 Intake & Output 07/06/23 07/07/23 07/07/23 18:59 06:59 18:59 Output Total 250 503 Balance -250 -503 Weight 53.5 kg Output: Urine 250 500 Stool 3 Other: Voiding Method Indwelling Catheter # Voids 3 # Bowel Movements 2 - Labs CBC & Chem 7: 07/06/23 03:59 07/06/23 03:59 Labs: Abnormal Lab Results - Last 24 Hours (Table) 07/06/23 07/06/23 07/06/23 Range/Units 03:59 03:59 11:07 Lymphocytes # (Manual) 0.59 L (0.90-5.00) X 10*3/uL Eosinophils # (Manual) 0 L (0.04-0.35) X 10*3/uL Potassium 3.4 L (3.5-5.5) mmol/L BUN 48.6 H (9.0-27.0) mg/dL Est GFR (CKD-EPI) 51 L (>=60) BUN/Creatinine Ratio 44.18 H (12.00-20.00) Ratio POC Glucose (mg/dL) 135 H (70-110) mg/dL Calcium 8.3 L (8.7-10.3) mg/dL 07/06/23 07/06/23 Range/Units 16:48 21:34 Lymphocytes # (Manual) (0.90-5.00) X 10*3/uL Eosinophils # (Manual) (0.04-0.35) X 10*3/uL Potassium (3.5-5.5) mmol/L BUN (9.0-27.0) mg/dL Est GFR (CKD-EPI) (>=60) BUN/Creatinine Ratio (12.00-20.00) Ratio POC Glucose (mg/dL) 117 H 115 H (70-110) mg/dL Calcium (8.7-10.3) mg/dL Assessment and Plan Plan: Assessment: 1. Acute kidney injury secondary to ATN secondary to severe sepsis. Was also on Bactrim prior to admission. No hydronephrosis noted on kidney ultrasound/CT. Creatinine 1.7 on admission and improved 1.1 today. Now on lasix. 2. Chronic diastolic CHF with severe pulmonary hypertension, mild to moderate aortic stenosis, moderate aortic regurgitation, severe mitral stenosis. 3. Hyperkalemia secondary to acute kidney injury on Bactrim. Improved. 4. Mild volume overload. On Lasix. 5. Acute blood loss anemia. Status post blood transfusion this admission. Better. 6. Hyponatremia from poor solute intake. Hypervolemic. Improved. 7. Recent COVID infection. 8. Left abdominal rectus sheath hematoma. Surgery following. Plan: Maintain oral Lasix. Encouraged oral intake. Maintain 1500 cc fluid restriction. Maintain IV iron. Avoid nephrotoxins. Continue to monitor renal function and urine output. On midodrine. Hold for systolic blood pressure greater than 110.
[2023-07-07 11:41] LABS: Glucose,Whole Blood 83 mg/dL (70-110)
[2023-07-07 11:54] LABS: INR 1.13 sec (0.93-1.11); Prothrombin Time 12.1 sec (9.9-11.9)
[2023-07-07] MEDS: ONDANSETRON 4 MG/2 ML VIAL IVP PRN (12:05)
--- NOTE | 2023-07-07 12:46 | P.PN ---
Subjective Progress Note Date: 07/07/23 patient still has some complaints of epigastric pain. Her liver function tests are still mildly elevated. She has a slight leukocytosis. On exam vital signs appear stable. Abdomen is soft. There is some mild right quadrant tenderness. Acute cholecystitis. Patiently managed medically this time. She'll continue receive supportive care. Objective - Vital Signs Vital signs: Vital Signs Temp 98.1 F 07/07/23 07:14 Pulse 59 L 07/07/23 08:58 Resp 17 07/07/23 07:14 BP 105/53 07/07/23 08:58 Pulse Ox 96 07/07/23 07:14 FiO2 21 07/05/23 07:54 Intake & Output 07/06/23 07/07/23 07/07/23 18:59 06:59 18:59 Output Total 250 503 Balance -250 -503 Weight 53.5 kg Output: Urine 250 500 Stool 3 Other: Voiding Method Indwelling Catheter # Voids 3 # Bowel Movements 2 - Labs CBC & Chem 7: 07/07/23 06:04 07/07/23 06:04 Labs: Abnormal Lab Results - Last 24 Hours (Table) 07/06/23 07/06/23 07/07/23 Range/Units 16:48 21:34 05:36 WBC (4.50-10.00) X 10*3/uL RBC (4.10-5.20) X 10*6/uL Hgb (12.0-15.0) g/dL Hct (37.2-46.3) % MCV (80.0-97.0) FL MCHC (32.0-37.0) g/dL RDW (11.5-14.5) % Eosinophils # (Manual) (0.04-0.35) X 10*3/uL NRBC/100 WBC Diff (0.00-0.01) X 10*3/uL PT 12.1 H (9.9-11.9) sec INR 1.13 H (0.93-1.11) sec BUN (9.0-27.0) mg/dL Est GFR (CKD-EPI) (>=60) BUN/Creatinine Ratio (12.00-20.00) Ratio POC Glucose (mg/dL) 117 H 115 H (70-110) mg/dL Calcium (8.7-10.3) mg/dL AST (13-35) U/L ALT (8-44) U/L Alkaline Phosphatase (41-126) U/L Total Protein (6.2-8.2) g/dL Albumin (3.8-4.9) g/dL Albumin/Globulin Ratio (1.60-3.17) Ratio 07/07/23 07/07/23 Range/Units 06:04 06:04 WBC 12.04 H (4.50-10.00) X 10*3/uL RBC 2.86 L (4.10-5.20) X 10*6/uL Hgb 8.8 L (12.0-15.0) g/dL Hct 28.7 L (37.2-46.3) % MCV 100.3 H (80.0-97.0) FL MCHC 30.7 L (32.0-37.0) g/dL RDW 18.7 H (11.5-14.5) % Eosinophils # (Manual) 0 L (0.04-0.35) X 10*3/uL NRBC/100 WBC Diff 0.02 H (0.00-0.01) X 10*3/uL PT (9.9-11.9) sec INR (0.93-1.11) sec BUN 52.0 H (9.0-27.0) mg/dL Est GFR (CKD-EPI) 46 L (>=60) BUN/Creatinine Ratio 43.33 H (12.00-20.00) Ratio POC Glucose (mg/dL) (70-110) mg/dL Calcium 8.4 L (8.7-10.3) mg/dL AST 135 H (13-35) U/L ALT 178 H (8-44) U/L Alkaline Phosphatase 151 H (41-126) U/L Total Protein 4.7 L (6.2-8.2) g/dL Albumin 2.1 L (3.8-4.9) g/dL Albumin/Globulin Ratio 0.81 L (1.60-3.17) Ratio
--- NOTE | 2023-07-07 13:37 | P.PN ---
Subjective Progress Note Date: 07/07/23 This is an 82-year-old female, familiar to my service, patient was recently in the hospital with acute COVID-19 pneumonia, congestive heart failure, atrial fibrillation with RVR, possible underlying interstitial lung disease, patient was discharged on 06/26/2023, pulmonary service has seen this patient initially on 06/09/2023, at that time the patient was admitted with acute hypoxic respiratory failure, acute COVID-19 pneumonia, chronic bronchial asthma, and possible hospital-acquired pneumonia. In addition the patient had mild intermittent asthma, congestive heart failure, severe mitral calcification and moderate to severe mitral stenosis with preserved LV function and preserved ejection fraction. She also has history of rheumatoid arthritis, hypothyroidism, and lifelong non-smoker. We saw this patient last on 06/26/2023,, she was on 2 L nasal cannula, her labs were unremarkable, her sputum cultures were nondiagnostic, blood cultures were nondiagnostic, she had relatively normal renal profile, and she was at the time on warfarin, Symbicort, Singulair and albuterol. Patient was discharged to the [facility] on the [place]. Patient was discharged on amiodarone, Coumadin, prednisone 20 mg daily, Lopressor, and nystatin swish and swallow. Otherwise the patient was kept on her usual medications including Symbicort, Jardiance, levothyroxine, Singulair, Fosamax, ascorbic acid, atorvastatin, Lasix 40 mg p.o. daily, and Xanax. As well as albuterol. Patient was sent from the [facility] down to the ER today mostly because of low O2 saturation, and patient was noted to have some shortness of breath. Chest x-ray on this admission showed cardiomegaly and mild pulmonary vascular congestion, no clear-cut evidence of pneumonia. As a matter fact her chest x-ray shows significant improvement compared to her initial chest x-ray on her last admission. In addition to her shortness of breath, patient was noted to have abnormal labs with a potassium of 6.2, her BUN is 79 and creatinine 1.71. Patient was also noted to have elevated BNP level of 27,000 and troponin leak. ABG on 50% FiO2 showed a pO2 of 69 pCO2 48 pH of 7.54. Patient is now on 3 L nasal cannula, seems to be comfortable, not in distress. Seen by nephrology for her acute kidney injury, ATN, hyperkalemia with acute kidney injury and apparently the patient was on Bactrim and the recommendation by nephrology was to continue with IV fluids, IV antibiotics, and repeat labs in AM. Patient has a very poor urine output, I did recommend a fluid bolus of 500 cc of saline while in the ER, blood pressure is marginal. Considering her marginal low blood pressure, I am recommending that the patient goes to the ICU. Nephrology is addressing her abnormal renal profile and hyperkalemia The patient is seen today June 30, 2023 in follow-up in the emergency department. She is currently sitting up in the stretcher. Awake and alert in no acute distress. Doing quite a bit better today compared to yesterday. Tolerating a clear liquid breakfast. Maintaining O2 saturations in the upper 90s on 6 L/min per nasal cannula. She has been afebrile. Hemodynamically stable. X-ray reveals some diffuse hazy and patchy bilateral airspace disease. Blood cultures are pending. White count 19.8. Hemoglobin 8.6. Platelets 210. Sodium 135. Potassium 4.4. Bicarb 32. BUN 70. Creatinine 1.21. Glucose 149. AST 250. ALT 242. Alk phos 403. Echocardiogram reveals a hyperdynamic LV with a EF around 70%. There is severe mitral stenosis and moderate aortic stenosis. Severe pulmonary hypertension with an RVSP exceeding 50 mmHg. She is continued on DuoNeb ventilations, IV diuretics, antibiotics in the form of vancomycin and cefepime. Procalcitonin pending. The patient is seen today July 01, 2023 in follow-up on the regular medical floor. She is currently sitting up in bed. Awake and alert in no acute distress. She is maintaining O2 saturations in the 90s on 6 L high flow nasal cannula. Her procalcitonin was 1.16. She remains on cefepime and vancomycin. Cultures are pending. Creatinine 1.18. Glucose 121. INR 6.4. She remains on bronchodilators, oral diuretics, anticoagulated with warfarin. The patient is seen today July 02, 2023 in follow-up on the regular medical floor. She is currently resting in bed. Awake and alert in no acute distress. She is maintaining good O2 saturations up to 100% on 6 L/min per nasal cannula. She is afebrile. Hemodynamically stable. Ultrasound of the abdomen reveals hepatic steatosis with ascites adjacent to the liver. Echogenic material within the gallbladder lumen with masslike appearance. Borderline gallbladder wall thickening. Hemoglobin 6.9. She is receiving 1 unit of packed red blood cells. Platelets 113. White count 4.7. INR 2.3. Sodium 135. Potassium 5.3. Bicarb 29. BUN 58. Creatinine 1.4. Glucose 103. She is continued on DuoNeb inh alations, cefepime and vancomycin. Remains on oral diuretics. The patient is seen today July 03, 2023 in follow-up on the regular medical floor. She is awake and alert in no acute distress. Sitting up in bed. Denies any worsening shortness of breath, cough or congestion. She is down to 2 L/min per nasal cannula. No IV fluids. She is continued on Maxipime and vancomycin. CT scan of the abdomen and pelvis reveals a left rectus hematoma. Moderate cardiomegaly. Moderate to severe diffuse opacities in the lungs could be due to edema atelectasis or infection. Chronic and likely incidental findings. X-ray of the left ankle reveals no evidence of acute fracture. Status post 1 unit of packed red blood cells this admission. Current hemoglobin 8.7. White count 4.5. Platelets 110. Sodium 130. Potassium 4.6. Bicarb 30. BUN 57. Creatinine 1.53. Glucose 87. AST 292. ALT 235. Vancomycin trough 18.0. She remains on DuoNeb inhalations. Oral diuretics. Receiving iron supplements. The patient is seen today July 04, 2023 in follow-up on the regular medical floor. He is currently sitting up in bed. Awake and alert in no acute distress. Maintaining good O2 saturations in the 90s on 2 L/min per nasal cannula. She denies any worsening shortness of breath, cough or congestion. She denies any abdominal pain. No fever or chills. White count 4.6. Hemoglobin 8.7. Platelets 123. Sodium 133. Potassium 4.4. Bicarb 26. BUN 51. Creatinine 1.3. Glucose 97. AST 211. ALT 214. Alk phos 164. Hepatobiliary scan pending. Chest x-ray reveals stable scattered airspace disease unchanged compared to previous. The patient is seen today July 05, 2023 in follow-up on the regular medical floor. She is resting comfortably in bed. Awake and alert in no acute distre ss. She is now on room air. No IV fluids. She remains on cefepime. Continued on bronchodilators. Continued on oral diuretics. Urine culture positive for [place]. Blood cultures revealed no growth. White count 8.0. Hemoglobin 8.6. Platelets 149. Sodium 136. Potassium 4.1. Bicarb 52. Creatinine 1.4. AST 218. ALT 153. Hepatobiliary scan was within normal limits. Currently in a negative 1.6 L balance. The patient is seen today July 06, 2023 in follow-up on the regular medical miki or. She is sitting up in bed. Family is at the bedside. She remains quite weak and debilitated. She is maintaining good O2 saturations in the 90s on room air. She remains on cefepime. Continued on bronchodilators. Remains on oral diuretics. White count 11.7. Hemoglobin 8.5. Platelets 167. Sodium 137. Potassium 3.4. Bicarb 26. BUN 49. Creatinine 1.1. Glucose 88. The patient is seen today July 07, 2023 in follow-up on the regular medical floor. She is awake and alert in no acute distress. She does remain very weak and debilitated. Not taking much oral intake. White count 12.0. Hemoglobin 8.8. Platelets 189. Sodium 137. Potassium 4.3. Bicarb 25. BUN 52. Creatinine 1.2. Glucose 79. AST 135. ALT 178. She remains in a -750 mL balance. She is continued on DuoNeb inhalations. Remains on oral diuretics. Remains on cefepime. Objective - Vital Signs Vital signs: Vital Signs Temp 98.1 F 07/07/23 07:14 Pulse 59 L 07/07/23 08:58 Resp 17 07/07/23 07:14 BP 105/53 07/07/23 08:58 Pulse Ox 96 07/07/23 07:14 FiO2 21 07/05/23 07:54 Intake & Output 07/06/23 07/07/23 07/07/23 18:59 06:59 18:59 Output Total 250 503 Balance -250 -503 Weight 53.5 kg Output: Urine 250 500 Stool 3 Other: Voiding Method Indwelling Catheter # Voids 3 # Bowel Movements 2 - Exam GENERAL EXAM: Alert, weak 82-year-old female, on room air, in no apparent distress. HEAD: Normocephalic. EYES: Normal reaction of pupils, equal size. NOSE: Clear with pink turbinates. THROAT: No erythema or exudates. NECK: No masses, no JVD. CHEST: No chest wall deformity. LUNGS: Equal air entry with crackles in the bilateral bases. CVS: S1 and S2 normal with no audible murmur, regular rhythm. ABDOMEN: No hepatosplenomegaly, normal bowel sounds, no guarding or rigidity. SPINE: No scoliosis or deformity SKIN: No rashes CENTRAL NERVOUS SYSTEM: No focal deficits, tone is normal in all 4 extremities. EXTREMITIES: There is no peripheral edema. No clubbing, no cyanosis. Peripheral pulses are intact. - Labs CBC & Chem 7: 07/07/23 06:04 07/07/23 06:04 Labs: Abnormal Lab Results - Last 24 Hours (Table) 07/06/23 07/06/23 07/07/23 Range/Units 16:48 21:34 05:36 WBC (4.50-10.00) X 10*3/uL RBC (4.10-5.20) X 10*6/uL Hgb (12.0-15.0) g/dL Hct (37.2-46.3) % MCV (80.0-97.0) FL MCHC (32.0-37.0) g/dL RDW (11.5-14.5) % Eosinophils # (Manual) (0.04-0.35) X 10*3/uL NRBC/100 WBC Diff (0.00-0.01) X 10*3/uL PT 12.1 H (9.9-11.9) sec INR 1.13 H (0.93-1.11) sec BUN (9.0-27.0) mg/dL Est GFR (CKD-EPI) (>=60) BUN/Creatinine Ratio (12.00-20.00) Ratio POC Glucose (mg/dL) 117 H 115 H (70-110) mg/dL Calcium (8.7-10.3) mg/dL AST (13-35) U/L ALT (8-44) U/L Alkaline Phosphatase (41-126) U/L Total Protein (6.2-8.2) g/dL Albumin (3.8-4.9) g/dL Albumin/Globulin Ratio (1.60-3.17) Ratio 07/07/23 07/07/23 Range/Units 06:04 06:04 WBC 12.04 H (4.50-10.00) X 10*3/uL RBC 2.86 L (4.10-5.20) X 10*6/uL Hgb 8.8 L (12.0-15.0) g/dL Hct 28.7 L (37.2-46.3) % MCV 100.3 H (80.0-97.0) FL MCHC 30.7 L (32.0-37.0) g/dL RDW 18.7 H (11.5-14.5) % Eosinophils # (Manual) 0 L (0.04-0.35) X 10*3/uL NRBC/100 WBC Diff 0.02 H (0.00-0.01) X 10*3/uL PT (9.9-11.9) sec INR (0.93-1.11) sec BUN 52.0 H (9.0-27.0) mg/dL Est GFR (CKD-EPI) 46 L (>=60) BUN/Creatinine Ratio 43.33 H (12.00-20.00) Ratio POC Glucose (mg/dL) (70-110) mg/dL Calcium 8.4 L (8.7-10.3) mg/dL AST 135 H (13-35) U/L ALT 178 H (8-44) U/L Alkaline Phosphatase 151 H (41-126) U/L Total Protein 4.7 L (6.2-8.2) g/dL Albumin 2.1 L (3.8-4.9) g/dL Albumin/Globulin Ratio 0.81 L (1.60-3.17) Ratio Assessment and Plan Assessment: Acute on chronic hypoxic respiratory failure, multifactorial, recovered and on room air Acute on chronic congestive heart failure with preserved ejection fraction hyperdynamic LV with an ejection fraction of 70% Acute anemia with a hemoglobin of 6.9, received 1 unit of packed red blood cells, current hemoglobin 8.8 Echogenic material within the gallbladder lumen with masslike appearance. Borderline gallbladder thickening. Hepatobiliary scan within normal limits Hepatic steatosis with ascites adjacent to the liver suspected Transaminitis, trending down Severe mitral stenosis Mild to moderate aortic stenosis Severe pulmonary hypertension with RVSP exceeding 50 mmHg History of COVID-19 pneumonia and healthcare acquired pneumonia, patient was treated with remdesivir on the last admission History of rheumatoid arthritis and possibly some component of interstitial lung disease Severe mitral valve disease with severe mitral stenosis, and mild aortic regurgitation and stenosis. History of rheumatoid arthritis Hypothyroidism Lifelong non-smoker Mild intermittent asthma Acute kidney injury/ATN Acute hyperkalemia secondary to acute kidney injury, patient had recent treatment with Bactrim for a UTI. Pyuria, UTI, possible sepsis from urinary tract infection Plan: The patient was seen and evaluated Labs and medications reviewed Stable and on room air Very weak and debilitated Plan is for subacute rehab post discharge I have personally seen and examined the patient, performed the documentation and the assessment and plan as written. Number of minutes spent on the visit: 10.
--- NOTE | 2023-07-07 14:21 | P.PN ---
Subjective Progress Note Date: 07/07/23 82-year-old lady with past medical history significant for congestive heart failure, atrial fibrillation with RVR,presented to the ER because of worsening shortness of breath. Patient was only recently discharged on 06/25 after being treated in the hospital for similar complaints.after discharge, patient was all right for 1 day but started noticing that she was getting more short of breath on exertion. Patient denied any chest pain. There was no complain of orthopnea or PND. There was no complain of swelling of feet. There was no complain of fever or chills. Patient oxygen requirements were also increasing so she was transferred back to the ER Initial lab work done in the ER showed WBC 28, hemoglobin 10.5, platelet count 332, INR 3.7, sodium 138, potassium 6.2, BUN 79, creatinine1.71, AST 378, ALT 350, troponin 0.247 EKG done in the ER showed heart rate of 81 , no ST segment elevation or depression seen, no T-wave inversions seen. Chest x-ray done in the ER showed cardiomegaly and moderate vascular congestion Patient admitted to internal medicine service 06/29. Patient seen and examined. Blood work done this morning showed WBC 19.8, hemoglobin 8.6, sodium 135, potassium 4.4, BUN 70, creatinine 1.21. Ox requirements have improved, currently on 6 L of oxygen. Patient is much more talkative compared to yesterday. Answering questions. 07/01/2023 Patient examined today in follow up. Remains on 6L of oxygen, more awake and alert. She continues on clear liquid diet which will be upgraded pending speech therapy recommendations as there is concern for aspiration. Indwelling catheter remains in place for urinary retention with concern for acute UTI which family feels was caused from the IDC placed prior to her previous discharge. She has been started on cefepime and vancomycin with concern for sepsis. White blood cell count has normalized to 5.7. Hemoglobin 7.1. INR 6.4 and warfarin remains on hold. Renal function stable. LFTs remain significantly elevated. 07/02/2023 Patient is evaluated today on the medical floor. Weaned down to 4L of oxygen. LFTs remain elevated. Gallbladder ultrasound completed revealing hepatic steatosis with ascites adjacent to the liver suspected. Echogenic materinal within the gallbladder lumen with masslike appearance. Borderline wall t hickening. Hemoglobin 6.9 today. Patient will receive 1 unit of blood. Covid PCR positive. 07/03/2023 Patient continues to report feeling fatigued. Was able to be weaned down to 2L of oxygen. Does have visible bruising over the left abdomen. Had abdominal pelvis CT done today which reveals a 6.8 x 2.6 x 12 cm left abdominal rectus hematoma. INR has improved down to 1.2 and this will likely only need conservative management however general surgery was consulted. There is also mention of distended gallbladder although no mention of an acute cholecystitis, dilated ducted. Patient has consistently elevated LFTs this could be due to infection however general surgery recommending HIDA scan. Left ankle xray was completed due to the bruising and mild soft tissue swelling patient states this was injured end of March when she fell. There is no acute fracture noted and patient would benefit from icing and elevation as well as light compression. 07/04/2023 Patient is evaluated on the medical floor. Continues to feel fatigued. Has not been out of bed much and has fair appetite. Family has been coming to assist with meal time feeding. General surgery following for the rectus sheath hematoma and INR has normalized and patient is being monitored off coumadin at this time. HIDA scan completed for further evaluation of the gallbladder which was normal. Recommendations for cholecystectomy however after cardiology re-evaluation felt patient was high risk for surgery. Patient has significant valvular heart disease and there is concern for possible interstitial lung disease she will be taken off the amiodarone at this time. Hemoglobin is stable at 8.7. 07/05/2023 Patient is evaluated today sitting up in the chair with at the bedside. Patient has been more awake and alert and has increased appetite. Family has been coming in to help her at every meal. Hemoglobin stable at 8.6. Patient is continued on IV cefepime with ID following closely. Not a surgical candidate. Abdominal bruising improving. IDC remains and family has concerns and would like it removed before discharge to rehab. Patient remains off coumadin at this time with general surgery recommendations to continue holding. INR 1.0 today. 07/06/2023 Patient is seen and evaluated in follow-up this morning currently sitting up in bed asleep although arousable. Patient reports feeling tired and denies any sig nificant pain. General surgery following with no plans of surgical intervention given significant comorbidities and not a surgical candidate. Patient is continued on IV antibiotics with infectious disease following. Nephrology following as well and patient is maintained on fluid restrictions. Oral intake remains poor to fair and is being encouraged to attempt to eat small frequent meals. Patient is currently maintaining oxygen saturations above 90% on room air and pulmonary is following closely. Awaiting PT/OT therapy to reevaluate patient will most definitely need rehab on discharge. 07/07/23 : Patient seen and evaluated at bedside, vitals reviewed, blood work reviewed. CBC showed hemoglobin of 8.8, WBC 12, platelet count 189. Serum chemistry showed sodium 137 potassium 4.3 BUN 52 creatinine 1.2 magnesium of 1.6, patient does complain of nausea, continue to hold Coumadin till hemoglobin stabilized Assessment and plan Acute hypoxic respiratory failure due to asthma exacerbation; requiring 6L and has weaned to room air. Non-ST elevation OH Left abdominal rectus sheath hematoma Acute on chronic diastolic heart failure; Moderate to severe mitral calcification, moderate to severe mitral stenosis, mild aortic regurgitation and stenosis, Pulmonary hypertension WHO class II. Hyperkalemia normalized Anemia iron deficient with acute blood loss anemia from the left rectus sheath hematoma Acute transaminitis with concern for acute cholecystitis, HIDA scan normal. Not a surgical candidate at this time. Acute UTI with sepsis POA. Acute kidney injury Recent hospitalization for COVID in May, PCR still positive; not in active infection. Warfarin toxicity resolved. Paroxysmal atrial fibrillation currently maintaining normal sinus [id number]. History of coronary artery disease with previous PCI/stent x3 History of hyperlipidemia History of hypertension Rheumatoid arthritis History of hypothyroidism Mild protein calorie malnutrition Stage 2 pressure injury on right and left buttock present on admission Sacral decubitus ulcer, unstageable present on admission. Lifelong non-smoker Plan * In regards to atrial fibrillation patient was started on amiodarone and Coumadin however amiodarone was discontinued and patient was transition to dronedarone continue telemonitoring * In regards to hypertension continue patient on midodrine for blood pressure support * In regards to urinary tract infection and pneumonia continue patient on IV cefepime, infectious is following * In regards to anemia patient given IV iron replacement s/p 1 unit of packed RBC hemoglobin improved * In regards to rectus sheath hematoma and anemia Coumadin remains on hold * In regards to generalized debility and dysphagia patient seen by speech therapy as well as physical therapy patient was started on amiodarone and warfarin back on 06/18 due to findings of atrial fibrillation with RVR and severe mitral stenosis. Cardiology has concerns for interstitial lung disease and amiodarone has been discontinued. Patient has been started on dronedarone. * Due to multiple complex medical issues, overall prognosis is guarded Objective - Vital Signs Vital signs: Vital Signs Temp 98.1 F 07/07/23 07:14 Pulse 59 L 07/07/23 08:58 Resp 17 07/07/23 07:14 BP 105/53 07/07/23 08:58 Pulse Ox 96 07/07/23 07:14 FiO2 21 07/05/23 07:54 Intake & Output 07/06/23 07/07/23 07/07/23 18:59 06:59 18:59 Output Total 250 503 Balance -250 -503 Weight 53.5 kg Output: Urine 250 500 Stool 3 Other: Voiding Method Indwelling Catheter # Voids 3 # Bowel Movements 2 - Labs CBC & Chem 7: 07/07/23 06:04 07/07/23 06:04 Labs: Abnormal Lab Results - Last 24 Hours (Table) 07/06/23 07/06/23 07/06/23 Range/Units 11:07 16:48 21:34 WBC (4.50-10.00) X 10*3/uL RBC (4.10-5.20) X 10*6/uL Hgb (12.0-15.0) g/dL Hct (37.2-46.3) % MCV (80.0-97.0) FL MCHC (32.0-37.0) g/dL RDW (11.5-14.5) % Eosinophils # (Manual) (0.04-0.35) X 10*3/uL NRBC/100 WBC Diff (0.00-0.01) X 10*3/uL BUN (9.0-27.0) mg/dL Est GFR (CKD-EPI) (>=60) BUN/Creatinine Ratio (12.00-20.00) Ratio POC Glucose (mg/dL) 135 H 117 H 115 H (70-110) mg/dL Calcium (8.7-10.3) mg/dL AST (13-35) U/L ALT (8-44) U/L Alkaline Phosphatase (41-126) U/L Total Protein (6.2-8.2) g/dL Albumin (3.8-4.9) g/dL Albumin/Globulin Ratio (1.60-3.17) Ratio 07/07/23 07/07/23 Range/Units 06:04 06:04 WBC 12.04 H (4.50-10.00) X 10*3/uL RBC 2.86 L (4.10-5.20) X 10*6/uL Hgb 8.8 L (12.0-15.0) g/dL Hct 28.7 L (37.2-46.3) % MCV 100.3 H (80.0-97.0) FL MCHC 30.7 L (32.0-37.0) g/dL RDW 18.7 H (11.5-14.5) % Eosinophils # (Manual) 0 L (0.04-0.35) X 10*3/uL NRBC/100 WBC Diff 0.02 H (0.00-0.01) X 10*3/uL BUN 52.0 H (9.0-27.0) mg/dL Est GFR (CKD-EPI) 46 L (>=60) BUN/Creatinine Ratio 43.33 H (12.00-20.00) Ratio POC Glucose (mg/dL) (70-110) mg/dL Calcium 8.4 L (8.7-10.3) mg/dL AST 135 H (13-35) U/L ALT 178 H (8-44) U/L Alkaline Phosphatase 151 H (41-126) U/L Total Protein 4.7 L (6.2-8.2) g/dL Albumin 2.1 L (3.8-4.9) g/dL Albumin/Globulin Ratio 0.81 L (1.60-3.17) Ratio
--- NOTE | 2023-07-07 15:40 | P.PN ---
Subjective Progress Note Date: 07/06/23 Principal diagnosis: Reason for follow-up is sepsis UTI/pneumonia Patient is a 82-year-old female with a past medical history significant for hypertension hyperlipidemia mitral valve prolapse rheumatoid arthritis heart failure patient has been brought into the hospital for evaluation of increasing shortness of breath patient was initially admitted to the ICU concerning for sepsis secondary to possible pneumonia/UTI versus hepatobiliary source. On today's evaluation that is 07/06/2023, Patient is afebrile patient is currently on room air and denies having any shortness of breath, the patient denies any chest pain or cough, the patient denies any nausea vomiting, denies pain to the right upper quadrant area and no diarrhea feeling better. Patient white count slightly up to 11.79 today, creatinine is 1.1 Objective - Vital Signs Vital signs: Vital Signs Temp 97.6 F 07/06/23 14:00 Pulse 72 07/06/23 15:28 Resp 18 07/06/23 14:00 BP 91/50 07/06/23 14:00 Pulse Ox 95 07/06/23 14:00 FiO2 21 07/05/23 07:54 Intake & Output 07/05/23 07/06/23 07/06/23 18:59 06:59 18:59 Intake Total 870 Output Total 450 1200 250 Balance 420 -1200 -250 Weight 53.5 kg Intake: Intake, IV Titration 150 Amount Cefepime 1 gm In Sodium 50 Chloride 0.9% 50 ml @ 12. 5 mls/hr IVPB Q12HR [facility] Rx#:[id number] Sodium Ferric Gluconat- 100 Sucrose 125 mg In Sodium Chloride 0.9% 100 ml @ 100 mls/hr IVPB DAILY [facility] Rx#:[id number] Oral 720 Output: Urine 450 1200 250 Other: Voiding Method Indwelling Catheter Indwelling Catheter # Bowel Movements 1 4 - Exam GENERAL DESCRIPTION: An elderly female lying in bed in no distress RESPIRATORY SYSTEM: Unlabored breathing , decreased breath sounds at bases HEART: S1 S2 regular rate and rhythm , ABDOMEN: Soft , left abdominal wall tenderness EXTREMITIES: No edema feet - Labs CBC & Chem 7: 07/07/23 06:04 07/07/23 06:04 Labs: Abnormal Lab Results - Last 24 Hours (Table) 07/05/23 07/05/23 07/06/23 Range/Units 16:37 19:53 03:59 WBC (4.50-10.00) X 10*3/uL RBC (4.10-5.20) X 10*6/uL Hgb (12.0-15.0) g/dL Hct (37.2-46.3) % MCHC (32.0-37.0) g/dL RDW (11.5-14.5) % Lymphocytes # (Manual) (0.90-5.00) X 10*3/uL Eosinophils # (Manual) (0.04-0.35) X 10*3/uL NRBC/100 WBC Diff (0.00-0.01) X 10*3/uL Potassium 3.4 L (3.5-5.5) mmol/L BUN 48.6 H (9.0-27.0) mg/dL Est GFR (CKD-EPI) 51 L (>=60) BUN/Creatinine Ratio 44.18 H (12.00-20.00) Ratio POC Glucose (mg/dL) 126 H 155 H (70-110) mg/dL Calcium 8.3 L (8.7-10.3) mg/dL 07/06/23 07/06/23 Range/Units 03:59 11:07 WBC 11.79 H (4.50-10.00) X 10*3/uL RBC 2.87 L (4.10-5.20) X 10*6/uL Hgb 8.5 L (12.0-15.0) g/dL Hct 27.7 L (37.2-46.3) % MCHC 30.7 L (32.0-37.0) g/dL RDW 18.6 H (11.5-14.5) % Lymphocytes # (Manual) 0.59 L (0.90-5.00) X 10*3/uL Eosinophils # (Manual) 0 L (0.04-0.35) X 10*3/uL NRBC/100 WBC Diff 0.03 H (0.00-0.01) X 10*3/uL Potassium (3.5-5.5) mmol/L BUN (9.0-27.0) mg/dL Est GFR (CKD-EPI) (>=60) BUN/Creatinine Ratio (12.00-20.00) Ratio POC Glucose (mg/dL) 135 H (70-110) mg/dL Calcium (8.7-10.3) mg/dL Assessment and Plan (1) UTI (urinary tract infection) Current Visit: Yes Status: Acute Code(s): N39.0 - URINARY TRACT INFECTION, SITE NOT SPECIFIED SNOMED Code(s): 40232490 (2) Elevated liver enzymes Current Visit: Yes Status: Acute Code(s): R74.8 - ABNORMAL LEVELS OF OTHER SERUM ENZYMES SNOMED Code(s): 094508181 (3) Pneumonia Current Visit: Yes Status: Acute Code(s): J18.9 - PNEUMONIA, UNSPECIFIED ORGANISM SNOMED Code(s): 892771108 (4) Leukocytosis Current Visit: No Status: Acute Code(s): D72.829 - ELEVATED WHITE BLOOD CELL COUNT, UNSPECIFIED SNOMED Code(s): 364992988 (5) Diarrhea Current Visit: Yes Status: Acute Code(s): R19.7 - DIARRHEA, UNSPECIFIED SNOMED Code(s): 78769693 Plan: 1patient presented hospital with increasing shortness of breath which is likely multifactorial with a question of venous congestion/pneumonia not entirely excluded, patient also have a positive UA and elevated liver enzymes 2blood cultures currently pending MRSA nasal swab came back negative, vancomycin discontinued 3-patient CT abdominal pelvis with a rectus sheath hematoma also noticed to have a distended gallbladder HIDA scan has been negative Forpatient is currently afebrile patient noticed to have slight worsening of the white count and will be monitored closely repeat his CBC with a.m. lab continue with cefepime for now Dictation was produced using [employer] Android POS dictation software. please excuse any grammatical, word or spelling errors. Time with Patient: Less than 30
--- NOTE | 2023-07-07 15:41 | P.PN ---
Subjective Progress Note Date: 07/07/23 Principal diagnosis: Reason for follow-up is sepsis UTI/pneumonia Patient is a 82-year-old female with a past medical history significant for hypertension hyperlipidemia mitral valve prolapse rheumatoid arthritis heart failure patient has been brought into the hospital for evaluation of increasing shortness of breath patient was initially admitted to the ICU concerning for sepsis secondary to possible pneumonia/UTI versus hepatobiliary source. On today's evaluation that is 07/07/2023, patient has been afebrile, patient is breathing comfortably and is currently on room air, patient denies having any significant cough no chest pain shortness of breath, patient denies nausea vomiting or diarrhea and no abdominal pain, mention feeling better. Patient white count is 12.04, creatinine is 1.2 Objective - Vital Signs Vital signs: Vital Signs Temp 98.2 F 07/07/23 14:00 Pulse 73 07/07/23 15:29 Resp 16 07/07/23 14:00 BP 95/48 07/07/23 14:00 Pulse Ox 97 07/07/23 14:00 FiO2 21 07/05/23 07:54 Intake & Output 07/06/23 07/07/23 07/07/23 18:59 06:59 18:59 Output Total 250 503 Balance -250 -503 Weight 53.5 kg Output: Urine 250 500 Stool 3 Other: Voiding Method Indwelling Catheter # Voids 3 # Bowel Movements 2 - Exam GENERAL DESCRIPTION: An elderly female lying in bed in no distress RESPIRATORY SYSTEM: Unlabored breathing , decreased breath sounds at bases HEART: S1 S2 regular rate and rhythm , ABDOMEN: Soft , left abdominal wall tenderness EXTREMITIES: No edema feet - Labs CBC & Chem 7: 07/07/23 06:04 07/07/23 06:04 Labs: Abnormal Lab Results - Last 24 Hours (Table) 07/06/23 07/06/23 07/07/23 Range/Units 16:48 21:34 05:36 WBC (4.50-10.00) X 10*3/uL RBC (4.10-5.20) X 10*6/uL Hgb (12.0-15.0) g/dL Hct (37.2-46.3) % MCV (80.0-97.0) FL MCHC (32.0-37.0) g/dL RDW (11.5-14.5) % Eosinophils # (Manual) (0.04-0.35) X 10*3/uL NRBC/100 WBC Diff (0.00-0.01) X 10*3/uL PT 12.1 H (9.9-11.9) sec INR 1.13 H (0.93-1.11) sec BUN (9.0-27.0) mg/dL Est GFR (CKD-EPI) (>=60) BUN/Creatinine Ratio (12.00-20.00) Ratio POC Glucose (mg/dL) 117 H 115 H (70-110) mg/dL Calcium (8.7-10.3) mg/dL AST (13-35) U/L ALT (8-44) U/L Alkaline Phosphatase (41-126) U/L Total Protein (6.2-8.2) g/dL Albumin (3.8-4.9) g/dL Albumin/Globulin Ratio (1.60-3.17) Ratio 07/07/23 07/07/23 Range/Units 06:04 06:04 WBC 12.04 H (4.50-10.00) X 10*3/uL RBC 2.86 L (4.10-5.20) X 10*6/uL Hgb 8.8 L (12.0-15.0) g/dL Hct 28.7 L (37.2-46.3) % MCV 100.3 H (80.0-97.0) FL MCHC 30.7 L (32.0-37.0) g/dL RDW 18.7 H (11.5-14.5) % Eosinophils # (Manual) 0 L (0.04-0.35) X 10*3/uL NRBC/100 WBC Diff 0.02 H (0.00-0.01) X 10*3/uL PT (9.9-11.9) sec INR (0.93-1.11) sec BUN 52.0 H (9.0-27.0) mg/dL Est GFR (CKD-EPI) 46 L (>=60) BUN/Creatinine Ratio 43.33 H (12.00-20.00) Ratio POC Glucose (mg/dL) (70-110) mg/dL Calcium 8.4 L (8.7-10.3) mg/dL AST 135 H (13-35) U/L ALT 178 H (8-44) U/L Alkaline Phosphatase 151 H (41-126) U/L Total Protein 4.7 L (6.2-8.2) g/dL Albumin 2.1 L (3.8-4.9) g/dL Albumin/Globulin Ratio 0.81 L (1.60-3.17) Ratio Assessment and Plan (1) UTI (urinary tract infection) Current Visit: Yes Status: Acute Code(s): N39.0 - URINARY TRACT INFECTION, SITE NOT SPECIFIED SNOMED Code(s): 51872625 (2) Elevated liver enzymes Current Visit: Yes Status: Acute Code(s): R74.8 - ABNORMAL LEVELS OF OTHER SERUM ENZYMES SNOMED Code(s): 354371757 (3) Pneumonia Current Visit: Yes Status: Acute Code(s): J18.9 - PNEUMONIA, UNSPECIFIED ORGANISM SNOMED Code(s): 524940691 (4) Leukocytosis Current Visit: No Status: Acute Code(s): D72.829 - ELEVATED WHITE BLOOD CELL COUNT, UNSPECIFIED SNOMED Code(s): 980439751 (5) Diarrhea Current Visit: Yes Status: Acute Code(s): R19.7 - DIARRHEA, UNSPECIFIED SNOMED Code(s): 74238087 Plan: 1patient presented hospital with increasing shortness of breath which is likely multifactorial with a question of venous congestion/pneumonia not entirely excl uded, patient also have a positive UA and elevated liver enzymes 2blood cultures currently pending MRSA nasal swab came back negative, vancomycin discontinued 3-patient CT abdominal pelvis with a rectus sheath hematoma also noticed to have a distended gallbladder HIDA scan has been negative 4patient noticed to have worsening of the white count could be related to oropharyngeal candidiasis and the urine is showing Chaparrita unfortunately not able to use Diflucan because of severe drug interaction between Diflucan and another medication patient is on we will add Eraxis and see response repeat CBC with a.m. lab continue with the cefepime Family at the bedside question about Dictation was produced using [employer] dictation software. please excuse any grammatical, word or spelling errors. Time with Patient: Less than 30
[2023-07-07 16:32] LABS: Glucose,Whole Blood 156 mg/dL (70-110)
[2023-07-07 21:20] LABS: Glucose,Whole Blood 101 mg/dL (70-110)
[2023-07-08 05:55] LABS: Glucose,Whole Blood 107 mg/dL (70-110)
[2023-07-08 06:23] LABS: Anisocytosis Slight; HCT 28.6 % (34.0-46.0); HGB 8.8 gm/dL (11.4-16.0); Hypochromasia Slight; MCH 29.9 pg (25.0-35.0); MCHC 30.9 g/dL (31.0-37.0); MCV 96.5 fL (80.0-100.0); Macrocytosis Slight; Mean Platelet Volume 9.6; Platelet Count 159 k/uL (150-450); Poikilocytosis Slight; RBC 2.96 m/uL (3.80-5.40); RDW 17.8 % (11.5-15.5); WBC 11.8 k/uL (3.8-10.6)
[2023-07-08 07:09] LABS: African American GFR (CKD) 56 (>60 ml/min/1.73 sqM); Anion Gap 6 mmol/L; Blood Urea Nitrogen 56 mg/dL (7-17); Calcium 8.1 mg/dL (8.4-10.2); Carbon Dioxide 19 mmol/L (22-30); Chloride 111 mmol/L (98-107); Glucose 76 mg/dL (74-99); Non-African American GFR(CKD) 48 (>60 ml/min/1.73 sqM); Sodium 136 mmol/L (137-145)
[2023-07-08 07:26] LABS: Potassium 3.9 mmol/L (3.5-5.1)
[2023-07-08 11:36] LABS: Glucose,Whole Blood 153 mg/dL (70-110)
--- NOTE | 2023-07-08 12:18 | P.PN ---
Subjective Progress Note Date: 07/08/23 Principal diagnosis: Reason for follow-up is sepsis UTI/pneumonia Patient is a 82-year-old female with a past medical history significant for hypertension hyperlipidemia mitral valve prolapse rheumatoid arthritis heart failure patient has been brought into the hospital for evaluation of increasing shortness of breath patient was initially admitted to the ICU concerning for sepsis secondary to possible pneumonia/UTI versus hepatobiliary source. On today's evaluation that is 07/08/2023,the patient denies any fever or any chills, patient is breathing comfortably on room air, the patient denies chest pain shortness of breath and no significant cough, patient denies abdominal pain, no nausea vomiting did have diarrhea per the nursing staff. Patient white count is down to 11.8, creatinine 1.09 Objective - Vital Signs Vital signs: Vital Signs Temp 97.6 F 07/08/23 08:00 Pulse 64 07/08/23 09:39 Resp 18 07/08/23 08:00 BP 96/46 07/08/23 08:00 Pulse Ox 96 07/08/23 08:00 FiO2 21 07/05/23 07:54 Intake & Output 07/07/23 07/08/23 07/08/23 18:59 06:59 18:59 Intake Total 900 Output Total 2000 500 Balance -2000 400 Weight 53.5 kg Intake: Oral 900 Output: Urine 2000 500 Other: Voiding Method Indwelling Catheter # Voids 3 # Bowel Movements 1 2 - Exam GENERAL DESCRIPTION: An elderly female lying in bed in no distress RESPIRATORY SYSTEM: Unlabored breathing , decreased breath sounds at bases HEART: S1 S2 regular rate and rhythm , ABDOMEN: Soft , mild distention but no tenderness EXTREMITIES: No edema feet Patient did have a stage II pressure ulcer to the right gluteal and sacral area with some slough tissue - Labs CBC & Chem 7: 07/08/23 05:38 07/08/23 05:38 Labs: Abnormal Lab Results - Last 24 Hours (Table) 07/07/23 07/07/23 07/07/23 Range/Units 05:36 06:04 16:31 WBC (3.8-10.6) k/uL RBC (3.80-5.40) m/uL Hgb (11.4-16.0) gm/dL Hct (34.0-46.0) % MCHC (31.0-37.0) g/dL RDW (11.5-15.5) % Eosinophils # (Manual) 0 L (0.04-0.35) X 10*3/uL PT 12.1 H (9.9-11.9) sec INR 1.13 H (0.93-1.11) sec Sodium (137-145) mmol/L Chloride (98-107) mmol/L Carbon Dioxide (22-30) mmol/L BUN (7-17) mg/dL Creatinine (0.52-1.04) mg/dL POC Glucose (mg/dL) 156 H (70-110) mg/dL Calcium (8.4-10.2) mg/dL 07/08/23 07/08/23 Range/Units 05:38 05:38 WBC 11.8 H (3.8-10.6) k/uL RBC 2.96 L (3.80-5.40) m/uL Hgb 8.8 L (11.4-16.0) gm/dL Hct 28.6 L (34.0-46.0) % MCHC 30.9 L (31.0-37.0) g/dL RDW 17.8 H (11.5-15.5) % Eosinophils # (Manual) (0.04-0.35) X 10*3/uL PT (9.9-11.9) sec INR (0.93-1.11) sec Sodium 136 L (137-145) mmol/L Chloride 111 H (98-107) mmol/L Carbon Dioxide 19 L (22-30) mmol/L BUN 56 H (7-17) mg/dL Creatinine 1.09 H (0.52-1.04) mg/dL POC Glucose (mg/dL) (70-110) mg/dL Calcium 8.1 L (8.4-10.2) mg/dL Assessment and Plan (1) UTI (urinary tract infection) Current Visit: Yes Status: Acute Code(s): N39.0 - URINARY TRACT INFECTION, SITE NOT SPECIFIED SNOMED Code(s): 58502217 (2) Elevated liver enzymes Current Visit: Yes Status: Acute Code(s): R74.8 - ABNORMAL LEVELS OF OTHER SERUM ENZYMES SNOMED Code(s): 060091271 (3) Pneumonia Current Visit: Yes Status: Acute Code(s): J18.9 - PNEUMONIA, UNSPECIFIED ORGANISM SNOMED Code(s): 822186838 (4) Leukocytosis Current Visit: No Status: Acute Code(s): D72.829 - ELEVATED WHITE BLOOD CELL COUNT, UNSPECIFIED SNOMED Code(s): 735745893 (5) Diarrhea Current Visit: Yes Status: Acute Code(s): R19.7 - DIARRHEA, UNSPECIFIED SNOMED Code(s): 68098824 Plan: 1patient presented hospital with increasing shortness of breath which is likely multifactorial with a question of venous congestion/pneumonia not entirely excluded, patient also have a positive UA and elevated liver enzymes 2blood cultures currently pending MRSA nasal swab came back negative, vancomycin discontinued 3-patient CT abdominal pelvis with a rectus sheath hematoma also noticed to have a distended gallbladder HIDA scan has been negative 4patient noticed to have worsening of the white count could be related to oropharyngeal candidiasis and the urine is showing Chaparrita unfortunately not able to use Diflucan because of severe drug interaction between Diflucan and another medication patient has been started on Eraxis consider short course while inpatient and cefepime can be discontinued on discharge 5-patient did have a stage II sacral pressure ulcer to the right gluteal and sacral area local care with the Medihoney followed by moist dressing keep the area of the pressure Discussed with the nursing staff Dictation was produced using [employer] dictation software. please excuse any grammatical, word or spelling errors. Time with Patient: Less than 30
--- NOTE | 2023-07-08 12:30 | P.PN ---
Subjective Progress Note Date: 07/08/23 82-year-old lady with past medical history significant for congestive heart failure, atrial fibrillation with RVR,presented to the ER because of worsening shortness of breath. Patient was only recently discharged on 06/25 after being treated in the hospital for similar complaints.after discharge, patient was all right for 1 day but started noticing that she was getting more short of breath on exertion. Patient denied any chest pain. There was no complain of orthopnea or PND. There was no complain of swelling of feet. There was no complain of fever or chills. Patient oxygen requirements were also increasing so she was transferred back to the ER Initial lab work done in the ER showed WBC 28, hemoglobin 10.5, platelet count 332, INR 3.7, sodium 138, potassium 6.2, BUN 79, creatinine1.71, AST 378, ALT 350, troponin 0.247 EKG done in the ER showed heart rate of 81 , no ST segment elevation or depression seen, no T-wave inversions seen. Chest x-ray done in the ER showed cardiomegaly and moderate vascular congestion Patient admitted to internal medicine service 06/29. Patient seen and examined. Blood work done this morning showed WBC 19.8, hemoglobin 8.6, sodium 135, potassium 4.4, BUN 70, creatinine 1.21. Ox requirements have improved, currently on 6 L of oxygen. Patient is much more talkative compared to yesterday. Answering questions. 07/01/2023 Patient examined today in follow up. Remains on 6L of oxygen, more awake and alert. She continues on clear liquid diet which will be upgraded pending speech therapy recommendations as there is concern for aspiration. Indwelling catheter remains in place for urinary retention with concern for acute UTI which family feels was caused from the IDC placed prior to her previous discharge. She has been started on cefepime and vancomycin with concern for sepsis. White blood cell count has normalized to 5.7. Hemoglobin 7.1. INR 6.4 and warfarin remains on hold. Renal function stable. LFTs remain significantly elevated. 07/02/2023 Patient is evaluated today on the medical floor. Weaned down to 4L of oxygen. LFTs remain elevated. Gallbladder ultrasound completed revealing hepatic steatosis with ascites adjacent to the liver suspected. Echogenic materinal within the gallbladder lumen with masslike appearance. Borderline wall t hickening. Hemoglobin 6.9 today. Patient will receive 1 unit of blood. Covid PCR positive. 07/03/2023 Patient continues to report feeling fatigued. Was able to be weaned down to 2L of oxygen. Does have visible bruising over the left abdomen. Had abdominal pelvis CT done today which reveals a 6.8 x 2.6 x 12 cm left abdominal rectus hematoma. INR has improved down to 1.2 and this will likely only need conservative management however general surgery was consulted. There is also mention of distended gallbladder although no mention of an acute cholecystitis, dilated ducted. Patient has consistently elevated LFTs this could be due to infection however general surgery recommending HIDA scan. Left ankle xray was completed due to the bruising and mild soft tissue swelling patient states this was injured end of March when she fell. There is no acute fracture noted and patient would benefit from icing and elevation as well as light compression. 07/04/2023 Patient is evaluated on the medical floor. Continues to feel fatigued. Has not been out of bed much and has fair appetite. Family has been coming to assist with meal time feeding. General surgery following for the rectus sheath hematoma and INR has normalized and patient is being monitored off coumadin at this time. HIDA scan completed for further evaluation of the gallbladder which was normal. Recommendations for cholecystectomy however after cardiology re-evaluation felt patient was high risk for surgery. Patient has significant valvular heart disease and there is concern for possible interstitial lung disease she will be taken off the amiodarone at this time. Hemoglobin is stable at 8.7. 07/05/2023 Patient is evaluated today sitting up in the chair with at the bedside. Patient has been more awake and alert and has increased appetite. Family has been coming in to help her at every meal. Hemoglobin stable at 8.6. Patient is continued on IV cefepime with ID following closely. Not a surgical candidate. Abdominal bruising improving. IDC remains and family has concerns and would like it removed before discharge to rehab. Patient remains off coumadin at this time with general surgery recommendations to continue holding. INR 1.0 today. 07/06/2023 Patient is seen and evaluated in follow-up this morning currently sitting up in bed asleep although arousable. Patient reports feeling tired and denies any sig nificant pain. General surgery following with no plans of surgical intervention given significant comorbidities and not a surgical candidate. Patient is continued on IV antibiotics with infectious disease following. Nephrology following as well and patient is maintained on fluid restrictions. Oral intake remains poor to fair and is being encouraged to attempt to eat small frequent meals. Patient is currently maintaining oxygen saturations above 90% on room air and pulmonary is following closely. Awaiting PT/OT therapy to reevaluate patient will most definitely need rehab on discharge. 07/07/23 : Patient seen and evaluated at bedside, vitals reviewed, blood work reviewed. CBC showed hemoglobin of 8.8, WBC 12, platelet count 189. Serum chemistry showed sodium 137 potassium 4.3 BUN 52 creatinine 1.2 magnesium of 1.6, patient does complain of nausea, continue to hold Coumadin till hemoglobin stabilized 07/08/23 : Patient seen and evaluated bedside, patient started back on Coumadin hemoglobin 8.8 remained stable, serum chemistry reviewed creatinine 1.09, sodium 136 potassium 3.9 calcium 8.1. Liver profile shows trending down of AST and ALT Assessment and plan Acute hypoxic respiratory failure due to asthma exacerbation; requiring 6L and has weaned to room air. Non-ST elevation TX Left abdominal rectus sheath hematoma Acute on chronic diastolic heart failure; Moderate to severe mitral calcification, moderate to severe mitral stenosis, mild aortic regurgitation and stenosis, Pulmonary hypertension WHO class II. Hyperkalemia normalized Anemia iron deficient with acute blood loss anemia from the left rectus sheath hematoma Acute transaminitis with concern for acute cholecystitis, HIDA scan normal. Not a surgical candidate at this time. Acute UTI with sepsis POA. Acute kidney injury Recent hospitalization for COVID in May, PCR still positive; not in active infection. Warfarin toxicity resolved. Paroxysmal atrial fibrillation currently maintaining normal sinus rhyhtm. History of coronary artery disease with previous PCI/stent x3 History of hyperlipidemia History of hypertension Rheumatoid arthritis History of hypothyroidism Mild protein calorie malnutrition Stage 2 pressure injury on right and left buttock present on admission Sacral decubitus ulcer, unstageable present on admission. Lifelong non-smoker Plan * In regards to atrial fibrillation patient was started on amiodarone and Coumadin however amiodarone was discontinued and patient was transition to dronedarone , continue telemonitoring * In regards to hypertension continue patient on midodrine for blood pressure support * In regards to urinary tract infection and pneumonia continue patient on IV cefepime, infectious is following * In regards to anemia patient given IV iron replacement s/p 1 unit of packed RBC hemoglobin improved, * In regards to rectus sheath hematoma and anemia >> Coumadin will be resumed 07/07 follow-up on INR * In regards to generalized debility and dysphagia patient seen by speech therapy as well as physical therapy patient was started on amiodarone and warfarin back on 06/18 due to findings of atrial fibrillation with RVR and severe mitral stenosis. Cardiology has concerns for interstitial lung disease and amiodarone has been discontinued. Patient has been started on dronedarone. * Due to multiple complex medical issues, overall prognosis is guarded Objective - Vital Signs Vital signs: Vital Signs Temp 97.6 F 07/08/23 08:00 Pulse 64 07/08/23 09:39 Resp 18 07/08/23 08:00 BP 96/46 07/08/23 08:00 Pulse Ox 96 07/08/23 08:00 FiO2 21 07/05/23 07:54 Intake & Output 07/07/23 07/08/23 07/08/23 18:59 06:59 18:59 Intake Total 900 Output Total 2000 500 Balance -2000 400 Weight 53.5 kg Intake: Oral 900 Output: Urine 2000 500 Other: Voiding Method Indwelling Catheter # Voids 3 # Bowel Movements 1 2 - Labs CBC & Chem 7: 07/08/23 05:38 07/08/23 05:38 Labs: Abnormal Lab Results - Last 24 Hours (Table) 07/07/23 07/07/23 07/07/23 Range/Units 05:36 06:04 16:31 WBC (3.8-10.6) k/uL RBC (3.80-5.40) m/uL Hgb (11.4-16.0) gm/dL Hct (34.0-46.0) % MCHC (31.0-37.0) g/dL RDW (11.5-15.5) % Eosinophils # (Manual) 0 L (0.04-0.35) X 10*3/uL PT 12.1 H (9.9-11.9) sec INR 1.13 H (0.93-1.11) sec Sodium (137-145) mmol/L Chloride (98-107) mmol/L Carbon Dioxide (22-30) mmol/L BUN (7-17) mg/dL Creatinine (0.52-1.04) mg/dL POC Glucose (mg/dL) 156 H (70-110) mg/dL Calcium (8.4-10.2) mg/dL 07/08/23 07/08/23 Range/Units 05:38 05:38 WBC 11.8 H (3.8-10.6) k/uL RBC 2.96 L (3.80-5.40) m/uL Hgb 8.8 L (11.4-16.0) gm/dL Hct 28.6 L (34.0-46.0) % MCHC 30.9 L (31.0-37.0) g/dL RDW 17.8 H (11.5-15.5) % Eosinophils # (Manual) (0.04-0.35) X 10*3/uL PT (9.9-11.9) sec INR (0.93-1.11) sec Sodium 136 L (137-145) mmol/L Chloride 111 H (98-107) mmol/L Carbon Dioxide 19 L (22-30) mmol/L BUN 56 H (7-17) mg/dL Creatinine 1.09 H (0.52-1.04) mg/dL POC Glucose (mg/dL) (70-110) mg/dL Calcium 8.1 L (8.4-10.2) mg/dL
--- NOTE | 2023-07-08 13:30 | P.PN ---
Subjective Progress Note Date: 07/08/23 CHIEF COMPLAINT: Shortness of breath HISTORY OF PRESENT ILLNESS: Surgical service following in regards to patient's acute cholecystitis and Left rectus sheath hematoma. Patient sitting in bed comfortably. She reports being able to eat all of her breakfast this morning. She reports her pain is improved. She did have bowel movements. Afebrile. WBC 11.8 Hgb 8.8 platelets 159 sodium is 136 potassium 3.9 creatinine 1.09 LFTs mildly elevated but trending down as noted of yesterday's labs. PHYSICAL EXAM: VITAL SIGNS: Reviewed. GENERAL: Well-developed in no acute distress. ABDOMEN: Soft. Nondistended. Currently nontender on palpation. She does have ecchymosis along the lower abdomen and left flank which is improving. NEUROLOGIC: Alert and oriented. Cranial nerves II through XII grossly intact. ASSESSMENT: 1. Acute cholecystitis. Echogenic material within the gallbladder lumen with masslike appearance and borderline gallbladder wall thickening noted on ultrasound 2. Elevated LFTs 3. Left abdominal rectus sheath hematoma with Coumadin toxicity present on admission 4. Acute blood loss anemia due to rectus sheath hematoma requiring blood transfusion PLAN: -Patient is a poor surgical candidate. No surgical intervention planned. -Continue medical management -Continue low-fat diet -Ok to resume coumadin. Monitor HGB Physician Crutch Maker note has been reviewed by physician. Signing provider agrees with the documented findings, assessment, and plan of care. Objective - Vital Signs Vital signs: Vital Signs Temp 97.6 F 07/08/23 08:00 Pulse 68 07/08/23 12:01 Resp 18 07/08/23 08:00 BP 96/46 07/08/23 08:00 Pulse Ox 96 07/08/23 08:00 FiO2 21 07/05/23 07:54 Intake & Output 07/07/23 07/08/23 07/08/23 18:59 06:59 18:59 Intake Total 900 Output Total 1999 500 Balance -1999 400 Weight 53.5 kg 53.5 kg Intake: Oral 900 Output: Urine 2000 500 Other: Voiding Method Indwelling Catheter Indwelling Catheter # Voids 3 # Bowel Movements 1 2 - Labs CBC & Chem 7: 07/08/23 05:38 07/08/23 05:38 Labs: Abnormal Lab Results - Last 24 Hours (Table) 07/06/23 07/07/23 07/07/23 Range/Units 03:59 06:04 16:31 WBC (3.8-10.6) k/uL RBC (3.80-5.40) m/uL Hgb (11.4-16.0) gm/dL Hct (34.0-46.0) % MCHC (31.0-37.0) g/dL RDW (11.5-15.5) % Neutrophils # (Manual) 10.14 H 9.99 H (1.80-7.70) X 10*3/uL Promyelocytes # (Man) 0.35 H 0.12 H (0) k/uL Sodium (137-145) mmol/L Chloride (98-107) mmol/L Carbon Dioxide (22-30) mmol/L BUN (7-17) mg/dL Creatinine (0.52-1.04) mg/dL POC Glucose (mg/dL) 156 H (70-110) mg/dL Calcium (8.4-10.2) mg/dL 07/08/23 07/08/23 07/08/23 Range/Units 05:38 05:38 11:34 WBC 11.8 H (3.8-10.6) k/uL RBC 2.96 L (3.80-5.40) m/uL Hgb 8.8 L (11.4-16.0) gm/dL Hct 28.6 L (34.0-46.0) % MCHC 30.9 L (31.0-37.0) g/dL RDW 17.8 H (11.5-15.5) % Neutrophils # (Manual) (1.80-7.70) X 10*3/uL Promyelocytes # (Man) (0) k/uL Sodium 136 L (137-145) mmol/L Chloride 111 H (98-107) mmol/L Carbon Dioxide 19 L (22-30) mmol/L BUN 56 H (7-17) mg/dL Creatinine 1.09 H (0.52-1.04) mg/dL POC Glucose (mg/dL) 153 H (70-110) mg/dL Calcium 8.1 L (8.4-10.2) mg/dL
--- NOTE | 2023-07-08 13:35 | P.PN ---
Subjective Patient is seen for follow-up for acute kidney injury. renal function has improved. No significant complaints today. serum creatinine 1.0 Objective - Vital Signs Vital signs: Vital Signs Temp 97.6 F 07/08/23 08:00 Pulse 68 07/08/23 12:01 Resp 18 07/08/23 08:00 BP 96/46 07/08/23 08:00 Pulse Ox 96 07/08/23 08:00 FiO2 21 07/05/23 07:54 Intake & Output 07/07/23 07/08/23 07/08/23 18:59 06:59 18:59 Intake Total 900 Output Total 2000 500 Balance -1999 400 Weight 53.5 kg 53.5 kg Intake: Oral 900 Output: Urine 2000 500 Other: Voiding Method Indwelling Catheter Indwelling Catheter # Voids 3 # Bowel Movements 1 2 - Exam patient is awake, comfortable, in no acute distress Examination of the heart S1 and S2 Examination of the lungs bilateral breath sounds are heard Abdomen is soft nontender Examination of lower extremity shows no evidence of edema. RAMP JOCKEY exam grossly intact - Labs CBC & Chem 7: 07/08/23 05:38 07/08/23 05:38 Labs: Abnormal Lab Results - Last 24 Hours (Table) 07/06/23 07/07/23 07/07/23 Range/Units 03:59 06:04 16:31 WBC (3.8-10.6) k/uL RBC (3.80-5.40) m/uL Hgb (11.4-16.0) gm/dL Hct (34.0-46.0) % MCHC (31.0-37.0) g/dL RDW (11.5-15.5) % Neutrophils # (Manual) 10.14 H 9.99 H (1.80-7.70) X 10*3/uL Promyelocytes # (Man) 0.35 H 0.12 H (0) k/uL Sodium (137-145) mmol/L Chloride (98-107) mmol/L Carbon Dioxide (22-30) mmol/L BUN (7-17) mg/dL Creatinine (0.52-1.04) mg/dL POC Glucose (mg/dL) 156 H (70-110) mg/dL Calcium (8.4-10.2) mg/dL 07/08/23 07/08/23 07/08/23 Range/Units 05:38 05:38 11:34 WBC 11.8 H (3.8-10.6) k/uL RBC 2.96 L (3.80-5.40) m/uL Hgb 8.8 L (11.4-16.0) gm/dL Hct 28.6 L (34.0-46.0) % MCHC 30.9 L (31.0-37.0) g/dL RDW 17.8 H (11.5-15.5) % Neutrophils # (Manual) (1.80-7.70) X 10*3/uL Promyelocytes # (Man) (0) k/uL Sodium 136 L (137-145) mmol/L Chloride 111 H (98-107) mmol/L Carbon Dioxide 19 L (22-30) mmol/L BUN 56 H (7-17) mg/dL Creatinine 1.09 H (0.52-1.04) mg/dL POC Glucose (mg/dL) 153 H (70-110) mg/dL Calcium 8.1 L (8.4-10.2) mg/dL Assessment and Plan Assessment: 1. Acute kidney injury, ATN currently nonoliguric secondary to underlying infection and hypotension. Serum creatinine also elevated from Bactrim which was started as outpatient.UA shows WBC 17 1+ protein with WBC clumps and yeast. Ultrasound shows no evidence of obstructive uropathy. 2. Hyperkalemia associated with acute kidney injury and use of Bactrim 3. Pyuria with urine cultures growing Chaparrita 4. History of CHF, diastolic with recent echocardiogram on 05/28/2023 showing EF of 60-65% 5. Severe pulmonary hypertension 6. Severe mitral valve stenosis 7. Mental status changes likely related to underlying infection and hypotension, improved Plan: continue with oral Lasix clear for discharge from nephrology standpoint. Continue with midodrine
[2023-07-08] MEDS: ANIDULAFUNGIN 200 MG in SODIUM CHLORIDE 0.9% 200 ML IVPB ONE (14:48)
[2023-07-08 16:22] LABS: Glucose,Whole Blood 109 mg/dL (70-110)
[2023-07-08] MEDS: WARFARIN 0.5 MG TAB PO ONE (17:10)
[2023-07-08] MEDS: CHOLESTYRAMINE (WITH SUGAR) 4 GM PACKET PO SCH (17:11)
--- NOTE | 2023-07-08 17:34 | P.PN ---
Subjective Progress Note Date: 07/08/23 This is an 82-year-old female, familiar to my service, patient was recently in the hospital with acute COVID-19 pneumonia, congestive heart failure, atrial fibrillation with RVR, possible underlying interstitial lung disease, patient was discharged on 06/26/2023, pulmonary service has seen this patient initially on 06/09/2023, at that time the patient was admitted with acute hypoxic respiratory failure, acute COVID-19 pneumonia, chronic bronchial asthma, and possible hospital-acquired pneumonia. In addition the patient had mild intermittent asthma, congestive heart failure, severe mitral calcification and moderate to severe mitral stenosis with preserved LV function and preserved ejection fraction. She also has history of rheumatoid arthritis, hypothyroidism, and lifelong non-smoker. We saw this patient last on 06/26/2023,, she was on 2 L nasal cannula, her labs were unremarkable, her sputum cultures were nondiagnostic, blood cultures were nondiagnostic, she had relatively normal renal profile, and she was at the time on warfarin, Symbicort, Singulair and albuterol. Patient was discharged to the [facility] on the [place]. Patient was discharged on amiodarone, Coumadin, prednisone 20 mg daily, Lopressor, and nystatin swish and swallow. Otherwise the patient was kept on her usual medications including Symbicort, Jardiance, levothyroxine, Singulair, Fosamax, ascorbic acid, atorvastatin, Lasix 40 mg p.o. daily, and Xanax. As well as albuterol. Patient was sent from the [facility] down to the ER today mostly because of low O2 saturation, and patient was noted to have some shortness of breath. Chest x-ray on this admission showed cardiomegaly and mild pulmonary vascular congestion, no clear-cut evidence of pneumonia. As a matter fact her chest x-ray shows significant improvement compared to her initial chest x-ray on her last admission. In addition to her shortness of breath, patient was noted to have abnormal labs with a potassium of 6.2, her BUN is 79 and creatinine 1.71. Patient was also noted to have elevated BNP level of 27,000 and troponin leak. ABG on 50% FiO2 showed a pO2 of 69 pCO2 48 pH of 7.54. Patient is now on 3 L nasal cannula, seems to be comfortable, not in distress. Seen by nephrology for her acute kidney injury, ATN, hyperkalemia with acute kidney injury and apparently the patient was on Bactrim and the recommendation by nephrology was to continue with IV fluids, IV antibiotics, and repeat labs in AM. Patient has a very poor urine output, I did recommend a fluid bolus of 500 cc of saline while in the ER, blood pressure is marginal. Considering her marginal low blood pressure, I am recommending that the patient goes to the ICU. Nephrology is addressing her abnormal renal profile and hyperkalemia The patient is seen today June 30, 2023 in follow-up in the emergency department. She is currently sitting up in the stretcher. Awake and alert in no acute distress. Doing quite a bit better today compared to yesterday. Tolerating a clear liquid breakfast. Maintaining O2 saturations in the upper 90s on 6 L/min per nasal cannula. She has been afebrile. Hemodynamically stable. X-ray reveals some diffuse hazy and patchy bilateral airspace disease. Blood cultures are pending. White count 19.8. Hemoglobin 8.6. Platelets 210. Sodium 135. Potassium 4.4. Bicarb 32. BUN 70. Creatinine 1.21. Glucose 149. AST 250. ALT 242. Alk phos 403. Echocardiogram reveals a hyperdynamic LV with a EF around 70%. There is severe mitral stenosis and moderate aortic stenosis. Severe pulmonary hypertension with an RVSP exceeding 50 mmHg. She is continued on DuoNeb ventilations, IV diuretics, antibiotics in the form of vancomycin and cefepime. Procalcitonin pending. The patient is seen today July 01, 2023 in follow-up on the regular medical floor. She is currently sitting up in bed. Awake and alert in no acute distress. She is maintaining O2 saturations in the 90s on 6 L high flow nasal cannula. Her procalcitonin was 1.16. She remains on cefepime and vancomycin. Cultures are pending. Creatinine 1.18. Glucose 121. INR 6.4. She remains on bronchodilators, oral diuretics, anticoagulated with warfarin. The patient is seen today July 02, 2023 in follow-up on the regular medical floor. She is currently resting in bed. Awake and alert in no acute distress. She is maintaining good O2 saturations up to 100% on 6 L/min per nasal cannula. She is afebrile. Hemodynamically stable. Ultrasound of the abdomen reveals hepatic steatosis with ascites adjacent to the liver. Echogenic material within the gallbladder lumen with masslike appearance. Borderline gallbladder wall thickening. Hemoglobin 6.9. She is receiving 1 unit of packed red blood cells. Platelets 113. White count 4.7. INR 2.3. Sodium 135. Potassium 5.3. Bicarb 29. BUN 58. Creatinine 1.4. Glucose 103. She is continued on DuoNeb in halations, cefepime and vancomycin. Remains on oral diuretics. The patient is seen today July 03, 2023 in follow-up on the regular medical floor. She is awake and alert in no acute distress. Sitting up in bed. Denies any worsening shortness of breath, cough or congestion. She is down to 2 L/min per nasal cannula. No IV fluids. She is continued on Maxipime and vancomycin. CT scan of the abdomen and pelvis reveals a left rectus hematoma. Moderate cardiomegaly. Moderate to severe diffuse opacities in the lungs could be due to edema atelectasis or infection. Chronic and likely incidental findings. X-ray of the left ankle reveals no evidence of acute fracture. Status post 1 unit of packed red blood cells this admission. Current hemoglobin 8.7. White count 4.5. Platelets 110. Sodium 130. Potassium 4.6. Bicarb 30. BUN 57. Creatinine 1.53. Glucose 87. AST 292. ALT 235. Vancomycin trough 18.0. She remains on DuoNeb inhalations. Oral diuretics. Receiving iron supplements. The patient is seen today July 04, 2023 in follow-up on the regular medical floor. He is currently sitting up in bed. Awake and alert in no acute distress. Maintaining good O2 saturations in the 90s on 2 L/min per nasal cannula. She denies any worsening shortness of breath, cough or congestion. She denies any abdominal pain. No fever or chills. White count 4.6. Hemoglobin 8.7. Platelets 123. Sodium 133. Potassium 4.4. Bicarb 26. BUN 51. Creatinine 1.3. Glucose 97. AST 211. ALT 214. Alk phos 164. Hepatobiliary scan pending. Chest x-ray reveals stable scattered airspace disease unchanged compared to previous. The patient is seen today July 05, 2023 in follow-up on the regular medical floor. She is resting comfortably in bed. Awake and alert in no acute distr ess. She is now on room air. No IV fluids. She remains on cefepime. Continued on bronchodilators. Continued on oral diuretics. Urine culture positive for Chaparrita. Blood cultures revealed no growth. White count 8.0. Hemoglobin 8.6. Platelets 149. Sodium 136. Potassium 4.1. Bicarb 52. Cr eatinine 1.4. AST 218. ALT 153. Hepatobiliary scan was within normal limits. Currently in a negative 1.6 L balance. The patient is seen today July 06, 2023 in follow-up on the regular medical fl oor. She is sitting up in bed. Family is at the bedside. She remains quite weak and debilitated. She is maintaining good O2 saturations in the 90s on room air. She remains on cefepime. Continued on bronchodilators. Remains on oral diuretics. White count 11.7. Hemoglobin 8.5. Platelets 167. Sodium 137. Potassium 3.4. Bicarb 26. BUN 49. Creatinine 1.1. Glucose 88. The patient is seen today July 07, 2023 in follow-up on the regular medical floor. She is awake and alert in no acute distress. She does remain very weak and debilitated. Not taking much oral intake. White count 12.0. Hemoglobin 8.8. Platelets 189. Sodium 137. Potassium 4.3. Bicarb 25. BUN 52. Creatinine 1.2. Glucose 79. AST 135. ALT 178. She remains in a -750 mL balance. She is continued on DuoNeb inhalations. Remains on oral diuretics. Remains on cefepime. On today's evaluation of 07/08/2023, the patient is being seen for a follow-up. The patient is calm and comfortable. No specific complaints. The patient is currently on room air oxygen with a pulse ox of 97%. WBC count is 11.8 with a hemoglobin 8.8 and a platelet count of 159. BUN is 56 with a creatinine 1.09 and sodium levels at 136. Patient is on DuoNeb updrafts. Patient is also on anticoagulation with warfarin. Antibiotic coverage remains on a combination of IV cefepime and Eraxis. Patient remains on Lasix 40 mg p.o. daily. Urine cultures positive for Chaparrita albicans. No other new complaints otherwise for now. In terms of her gallbladder disease, the patient has echogenic material within the gallbladder lumen and masslike appearance and borderline gallbladder wall thickening with some elevation in the LFTs. She is considered to be a poor surgical candidate and no surgical intervention has been recommended and the patient is going to be treated conservatively. LFTs were essentially improving and based on the most recent labs were obtained on 07/07/2023. Objective - Vital Signs Vital signs: Vital Signs Temp 97.6 F 07/08/23 08:00 Pulse 68 07/08/23 12:01 Resp 18 07/08/23 08:00 BP 96/46 07/08/23 08:00 Pulse Ox 96 07/08/23 08:00 FiO2 21 07/05/23 07:54 Intake & Output 07/07/23 07/08/23 07/08/23 18:59 06:59 18:59 Intake Total 900 Output Total 2000 500 Balance -2000 400 Weight 53.5 kg Intake: Oral 900 Output: Urine 2000 500 Other: Voiding Method Indwelling Catheter Indwelling Catheter # Voids 3 # Bowel Movements 1 2 - Exam GENERAL EXAM: Alert, weak 82-year-old female, on room air, in no apparent distress. HEAD: Normocephalic. EYES: Normal reaction of pupils, equal size. NOSE: Clear with pink turbinates. THROAT: No erythema or exudates. NECK: No masses, no JVD. CHEST: No chest wall deformity. LUNGS: Equal air entry with crackles in the bilateral bases. CVS: S1 and S2 normal with no audible murmur, regular rhythm. ABDOMEN: No hepatosplenomegaly, normal bowel sounds, no guarding or rigidity. SPINE: No scoliosis or deformity SKIN: No rashes CENTRAL NERVOUS SYSTEM: No focal deficits, tone is normal in all 4 extremities. EXTREMITIES: There is no peripheral edema. No clubbing, no cyanosis. Peripher al pulses are intact. - Labs CBC & Chem 7: 07/08/23 05:38 07/08/23 05:38 Labs: Abnormal Lab Results - Last 24 Hours (Table) 07/06/23 07/07/23 07/07/23 Range/Units 03:59 06:04 16:31 WBC (3.8-10.6) k/uL RBC (3.80-5.40) m/uL Hgb (11.4-16.0) gm/dL Hct (34.0-46.0) % MCHC (31.0-37.0) g/dL RDW (11.5-15.5) % Neutrophils # (Manual) 10.14 H 9.99 H (1.80-7.70) X 10*3/uL Promyelocytes # (Man) 0.35 H 0.12 H (0) k/uL Sodium (137-145) mmol/L Chloride (98-107) mmol/L Carbon Dioxide (22-30) mmol/L BUN (7-17) mg/dL Creatinine (0.52-1.04) mg/dL POC Glucose (mg/dL) 156 H (70-110) mg/dL Calcium (8.4-10.2) mg/dL 07/08/23 07/08/23 07/08/23 Range/Units 05:38 05:38 11:34 WBC 11.8 H (3.8-10.6) k/uL RBC 2.96 L (3.80-5.40) m/uL Hgb 8.8 L (11.4-16.0) gm/dL Hct 28.6 L (34.0-46.0) % MCHC 30.9 L (31.0-37.0) g/dL RDW 17.8 H (11.5-15.5) % Neutrophils # (Manual) (1.80-7.70) X 10*3/uL Promyelocytes # (Man) (0) k/uL Sodium 136 L (137-145) mmol/L Chloride 111 H (98-107) mmol/L Carbon Dioxide 19 L (22-30) mmol/L BUN 56 H (7-17) mg/dL Creatinine 1.09 H (0.52-1.04) mg/dL POC Glucose (mg/dL) 153 H (70-110) mg/dL Calcium 8.1 L (8.4-10.2) mg/dL Assessment and Plan Plan: Acute on chronic hypoxic respiratory failure, multifactorial, recovered and on room air, no signs of any respite distress at this point in time. Acute on chronic congestive heart failure with preserved ejection fraction hyperdynamic LV with an ejection fraction of 70% Acute anemia with a hemoglobin of 6.9, received 1 unit of packed red blood cells, current hemoglobin 8.8 Echogenic material within the gallbladder lumen with masslike appearance. Borderline gallbladder thickening. Hepatobiliary scan within normal limits, LFTs are improving and the patient is going to be treated conservatively and she is considered to be high surgical risk for gallbladder surgery. Hepatic steatosis with ascites adjacent to the liver suspected Transaminitis, trending down Severe mitral stenosis Mild to moderate aortic stenosis Severe pulmonary hypertension with RVSP exceeding 50 mmHg History of COVID-19 pneumonia and healthcare acquired pneumonia, patient was treated with remdesivir on the last admission History of rheumatoid arthritis and possibly some component of interstitial lung disease Severe mitral valve disease with severe mitral stenosis, and mild aortic regurgitation and stenosis. History of rheumatoid arthritis Hypothyroidism Lifelong non-smoker Mild intermittent asthma Acute kidney injury/ATN Acute hyperkalemia secondary to acute kidney injury, patient had recent treatment with Bactrim for a UTI. Pyuria, UTI, possible sepsis from urinary tract infection Plan: No significant respiratory distress at this point in time. Stable and on room air Very weak and debilitated Plan is for subacute rehab post discharge
[2023-07-08 20:07] LABS: Glucose,Whole Blood 277 mg/dL (70-110)
[2023-07-09 05:59] LABS: Glucose,Whole Blood 95 mg/dL (70-110)
[2023-07-09 06:47] LABS: INR 1.1 (<1.2); Prothrombin Time 11.6 sec (10.0-12.5)
[2023-07-09 08:34] LABS: HCT 26.2 % (37.2-46.3); HGB 7.9 g/dL (12.0-15.0); MCH 30.6 pg (27.0-32.0); MCHC 30.2 g/dL (32.0-37.0); MCV 101.6 FL (80.0-97.0); Mean Platelet Volume 11.1 FL (9.5-12.2); NRBC Per 100 WBC 0.04 X 10*3/uL (0.00-0.01); Platelet Count 200 X 10*3/uL (140-440); RBC 2.58 X 10*6/uL (4.10-5.20); RDW 18.7 % (11.5-14.5)
[2023-07-09 09:03] LABS: BUN/Creat Ratio 40.17 Ratio (12.00-20.00); Blood Urea Nitrogen 48.2 mg/dL (9.0-27.0); Calcium 7.8 mg/dL (8.7-10.3); Carbon Dioxide 23.6 mmol/L (21.6-31.8); Chloride 101 mmol/L (96-109); Glucose 82 mg/dL (70-110); Potassium 3.6 mmol/L (3.5-5.5); Sodium 134 mmol/L (135-145)
[2023-07-09] MEDS: ANIDULAFUNGIN 100 MG in SODIUM CHLORIDE 0.9% 100 ML IVPB SCH (09:26)
[2023-07-09 11:33] LABS: Glucose,Whole Blood 102 mg/dL (70-110)
--- NOTE | 2023-07-09 12:22 | P.PN ---
Subjective Progress Note Date: 07/09/23 CHIEF COMPLAINT: Shortness of breath HISTORY OF PRESENT ILLNESS: Surgical service following in regards to patient's acute cholecystitis and Left rectus sheath hematoma. Patient reports no abdominal pain. She is tolerating diet. Her Coumadin was resumed yesterday. Afebrile. WBC up from 11.8-12.8 Hgb 8.8 down to 7.9 platelets 200 PHYSICAL EXAM: VITAL SIGNS: Reviewed. GENERAL: Well-developed in no acute distress. ABDOMEN: Soft. Nondistended. Nontender. She does have ecchymosis along the lower abdomen and left flank which is improving. NEUROLOGIC: Alert and oriented. Cranial nerves II through XII grossly intact. ASSESSMENT: 1. Acute cholecystitis. Echogenic material within the gallbladder lumen with masslike appearance and borderline gallbladder wall thickening noted on ultrasound 2. Elevated LFTs 3. Left abdominal rectus sheath hematoma with Coumadin toxicity present on admission 4. Acute blood loss anemia due to rectus sheath hematoma requiring blood transfusion PLAN: -Patient is a poor surgical candidate. No surgical intervention planned. -Continue medical management -Continue low-fat diet -Continue to monitor hemoglobin Physician Plaster Machine Tender note has been reviewed by physician. Signing provider agrees with the documented findings, assessment, and plan of care. Objective - Vital Signs Vital signs: Vital Signs Temp 97.4 F L 07/09/23 07:06 Pulse 64 07/09/23 09:37 Resp 18 07/09/23 07:06 BP 105/54 07/09/23 07:06 Pulse Ox 95 07/09/23 09:29 FiO2 21 07/05/23 07:54 Intake & Output 07/08/23 07/09/23 07/09/23 18:59 06:59 18:59 Output Total 1553 Balance -1553 Weight 53.5 kg 52.5 kg Output: Urine 1350 Stool 203 Other: Voiding Method Indwelling Catheter Indwelling Catheter Indwelling Catheter # Voids 3 # Bowel Movements 2 - Labs CBC & Chem 7: 07/09/23 05:23 07/09/23 05:23 Labs: Abnormal Lab Results - Last 24 Hours (Table) 07/08/23 07/09/23 07/09/23 Range/Units 20:06 05:23 05:23 WBC 12.80 H (4.50-10.00) X 10*3/uL RBC 2.58 L (4.10-5.20) X 10*6/uL Hgb 7.9 L (12.0-15.0) g/dL Hct 26.2 L (37.2-46.3) % MCV 101.6 H (80.0-97.0) FL MCHC 30.2 L (32.0-37.0) g/dL RDW 18.7 H (11.5-14.5) % NRBC/100 WBC Diff 0.04 H (0.00-0.01) X 10*3/uL Sodium 134 L (135-145) mmol/L BUN 48.2 H (9.0-27.0) mg/dL Est GFR (CKD-EPI) 46 L (>=60) BUN/Creatinine Ratio 40.17 H (12.00-20.00) Ratio POC Glucose (mg/dL) 277 H (70-110) mg/dL Calcium 7.8 L (8.7-10.3) mg/dL
--- NOTE | 2023-07-09 12:46 | P.PN ---
Subjective Progress Note Date: 07/09/23 82-year-old lady with past medical history significant for congestive heart failure, atrial fibrillation with RVR,presented to the ER because of worsening shortness of breath. Patient was only recently discharged on 06/25 after being treated in the hospital for similar complaints.after discharge, patient was all right for 1 day but started noticing that she was getting more short of breath on exertion. Patient denied any chest pain. There was no complain of orthopnea or PND. There was no complain of swelling of feet. There was no complain of fever or chills. Patient oxygen requirements were also increasing so she was transferred back to the ER Initial lab work done in the ER showed WBC 28, hemoglobin 10.5, platelet count 332, INR 3.7, sodium 138, potassium 6.2, BUN 79, creatinine1.71, AST 378, ALT 350, troponin 0.247 EKG done in the ER showed heart rate of 81 , no ST segment elevation or depression seen, no T-wave inversions seen. Chest x-ray done in the ER showed cardiomegaly and moderate vascular congestion Patient admitted to internal medicine service 06/29. Patient seen and examined. Blood work done this morning showed WBC 19.8, hemoglobin 8.6, sodium 135, potassium 4.4, BUN 70, creatinine 1.21. Ox requirements have improved, currently on 6 L of oxygen. Patient is much more talkative compared to yesterday. Answering questions. 07/01/2023 Patient examined today in follow up. Remains on 6L of oxygen, more awake and alert. She continues on clear liquid diet which will be upgraded pending speech therapy recommendations as there is concern for aspiration. Indwelling catheter remains in place for urinary retention with concern for acute UTI which family feels was caused from the IDC placed prior to her previous discharge. She has been started on cefepime and vancomycin with concern for sepsis. White blood cell count has normalized to 5.7. Hemoglobin 7.1. INR 6.4 and warfarin remains on hold. Renal function stable. LFTs remain significantly elevated. 07/02/2023 Patient is evaluated today on the medical floor. Weaned down to 4L of oxygen. LFTs remain elevated. Gallbladder ultrasound completed revealing hepatic steatosis with ascites adjacent to the liver suspected. Echogenic materinal within the gallbladder lumen with masslike appearance. Borderline wall t hickening. Hemoglobin 6.9 today. Patient will receive 1 unit of blood. Covid PCR positive. 07/03/2023 Patient continues to report feeling fatigued. Was able to be weaned down to 2L of oxygen. Does have visible bruising over the left abdomen. Had abdominal pelvis CT done today which reveals a 6.8 x 2.6 x 12 cm left abdominal rectus hematoma. INR has improved down to 1.2 and this will likely only need conservative management however general surgery was consulted. There is also mention of distended gallbladder although no mention of an acute cholecystitis, dilated ducted. Patient has consistently elevated LFTs this could be due to infection however general surgery recommending HIDA scan. Left ankle xray was completed due to the bruising and mild soft tissue swelling patient states this was injured end of March when she fell. There is no acute fracture noted and patient would benefit from icing and elevation as well as light compression. 07/04/2023 Patient is evaluated on the medical floor. Continues to feel fatigued. Has not been out of bed much and has fair appetite. Family has been coming to assist with meal time feeding. General surgery following for the rectus sheath hematoma and INR has normalized and patient is being monitored off coumadin at this time. HIDA scan completed for further evaluation of the gallbladder which was normal. Recommendations for cholecystectomy however after cardiology re-evaluation felt patient was high risk for surgery. Patient has significant valvular heart disease and there is concern for possible interstitial lung disease she will be taken off the amiodarone at this time. Hemoglobin is stable at 8.7. 07/05/2023 Patient is evaluated today sitting up in the chair with at the bedside. Patient has been more awake and alert and has increased appetite. Family has been coming in to help her at every meal. Hemoglobin stable at 8.6. Patient is continued on IV cefepime with ID following closely. Not a surgical candidate. Abdominal bruising improving. IDC remains and family has concerns and would like it removed before discharge to rehab. Patient remains off coumadin at this time with general surgery recommendations to continue holding. INR 1.0 today. 07/06/2023 Patient is seen and evaluated in follow-up this morning currently sitting up in bed asleep although arousable. Patient reports feeling tired and denies any sig nificant pain. General surgery following with no plans of surgical intervention given significant comorbidities and not a surgical candidate. Patient is continued on IV antibiotics with infectious disease following. Nephrology following as well and patient is maintained on fluid restrictions. Oral intake remains poor to fair and is being encouraged to attempt to eat small frequent meals. Patient is currently maintaining oxygen saturations above 90% on room air and pulmonary is following closely. Awaiting PT/OT therapy to reevaluate patient will most definitely need rehab on discharge. 07/07/23 : Patient seen and evaluated at bedside, vitals reviewed, blood work reviewed. CBC showed hemoglobin of 8.8, WBC 12, platelet count 189. Serum chemistry showed sodium 137 potassium 4.3 BUN 52 creatinine 1.2 magnesium of 1.6, patient does complain of nausea, continue to hold Coumadin till hemoglobin stabilized 07/08/23 : Patient seen and evaluated bedside, patient started back on Coumadin hemoglobin 8.8 remained stable, serum chemistry reviewed creatinine 1.09, sodium 136 potassium 3.9 calcium 8.1. Liver profile shows trending down of AST and ALT 07/09/23: Seen and evaluated at bedside, blood work reviewed, WBC 12.8 hemoglobin 7.9, serum chemistry reviewed sodium 134 creatinine 1.2, INR 1.1. Continue to remain on IV antibiotics, patient does have diarrhea and does have fecal manag ement system in place, C. difficile was negative continue patient on Lomotil along with cholestyramine Assessment and plan Acute hypoxic respiratory failure due to asthma exacerbation; requiring 6L and has weaned to room air. Non-ST elevation UT Left abdominal rectus sheath hematoma Acute on chronic diastolic heart failure; Moderate to severe mitral calcification, moderate to severe mitral stenosis, mild aortic regurgitation and stenosis, Pulmonary hypertension WHO class II. Hyperkalemia normalized Anemia iron deficient with acute blood loss anemia from the left rectus sheath hematoma Acute transaminitis with concern for acute cholecystitis, HIDA scan normal. Not a surgical candidate at this time. Acute UTI with sepsis POA. Acute kidney injury Recent hospitalization for COVID in May, PCR still positive; not in active infection. Warfarin toxicity resolved. Paroxysmal atrial fibrillation currently maintaining normal sinus rhyhtm. History of coronary artery disease with previous PCI/stent x3 History of hyperlipidemia History of hypertension Rheumatoid arthritis History of hypothyroidism Mild protein calorie malnutrition Stage 2 pressure injury on right and left buttock present on admission Sacral decubitus ulcer, unstageable present on admission. Lifelong non-smoker Plan * In regards to atrial fibrillation patient was started on amiodarone and Coumadin however amiodarone was discontinued and patient was transition to dronedarone , continue telemonitoring * In regards to hypertension continue patient on midodrine for blood pressure support * In regards to urinary tract infection and pneumonia continue patient on IV cefepime, infectious is following * In regards to anemia patient given IV iron replacement s/p 1 unit of packed RBC hemoglobin improved, * In regards to rectus sheath hematoma and anemia >> Coumadin will be resumed 07/07 follow-up on INR 1.1, monitor hemoglobin * In regards to generalized debility and dysphagia patient seen by speech therapy as well as physical therapy patient was started on amiodarone and warfarin back on 06/18 due to findings of atrial fibrillation with RVR and severe mitral stenosis. Cardiology has concerns for interstitial lung disease and amiodarone has been discontinued. Patient has been started on dronedarone. * Due to multiple complex medical issues, overall prognosis is guarded Objective - Vital Signs Vital signs: Vital Signs Temp 97.4 F L 07/09/23 07:06 Pulse 64 07/09/23 09:37 Resp 18 07/09/23 07:06 BP 105/54 07/09/23 07:06 Pulse Ox 95 07/09/23 09:29 FiO2 21 07/05/23 07:54 Intake & Output 07/08/23 07/09/23 07/09/23 18:59 06:59 18:59 Output Total 1553 Balance -1553 Weight 53.5 kg 52.5 kg Output: Urine 1350 Stool 203 Other: Voiding Method Indwelling Catheter Indwelling Catheter Indwelling Catheter # Voids 3 # Bowel Movements 2 - Labs CBC & Chem 7: 07/09/23 05:23 07/09/23 05:23 Labs: Abnormal Lab Results - Last 24 Hours (Table) 07/06/23 07/07/23 07/08/23 Range/Units 03:59 06:04 11:34 WBC (4.50-10.00) X 10*3/uL RBC (4.10-5.20) X 10*6/uL Hgb (12.0-15.0) g/dL Hct (37.2-46.3) % MCV (80.0-97.0) FL MCHC (32.0-37.0) g/dL RDW (11.5-14.5) % Neutrophils # (Manual) 10.14 H 9.99 H (1.80-7.70) X 10*3/uL Promyelocytes # (Man) 0.35 H 0.12 H (0) k/uL NRBC/100 WBC Diff (0.00-0.01) X 10*3/uL Sodium (135-145) mmol/L BUN (9.0-27.0) mg/dL Est GFR (CKD-EPI) (>=60) BUN/Creatinine Ratio (12.00-20.00) Ratio POC Glucose (mg/dL) 153 H (70-110) mg/dL Calcium (8.7-10.3) mg/dL 07/08/23 07/09/23 07/09/23 Range/Units 20:06 05:23 05:23 WBC 12.80 H (4.50-10.00) X 10*3/uL RBC 2.58 L (4.10-5.20) X 10*6/uL Hgb 7.9 L (12.0-15.0) g/dL Hct 26.2 L (37.2-46.3) % MCV 101.6 H (80.0-97.0) FL MCHC 30.2 L (32.0-37.0) g/dL RDW 18.7 H (11.5-14.5) % Neutrophils # (Manual) (1.80-7.70) X 10*3/uL Promyelocytes # (Man) (0) k/uL NRBC/100 WBC Diff 0.04 H (0.00-0.01) X 10*3/uL Sodium 134 L (135-145) mmol/L BUN 48.2 H (9.0-27.0) mg/dL Est GFR (CKD-EPI) 46 L (>=60) BUN/Creatinine Ratio 40.17 H (12.00-20.00) Ratio POC Glucose (mg/dL) 277 H (70-110) mg/dL Calcium 7.8 L (8.7-10.3) mg/dL
[2023-07-09] MEDS: LOPERAMIDE 2 MG CAP PO SCH (12:57)
--- NOTE | 2023-07-09 15:33 | P.PN ---
Subjective Progress Note Date: 07/09/23 This is an 82-year-old female, familiar to my service, patient was recently in the hospital with acute COVID-19 pneumonia, congestive heart failure, atrial fibrillation with RVR, possible underlying interstitial lung disease, patient was discharged on 06/26/2023, pulmonary service has seen this patient initially on 06/09/2023, at that time the patient was admitted with acute hypoxic respiratory failure, acute COVID-19 pneumonia, chronic bronchial asthma, and possible hospital-acquired pneumonia. In addition the patient had mild intermittent asthma, congestive heart failure, severe mitral calcification and moderate to severe mitral stenosis with preserved LV function and preserved ejection fraction. She also has history of rheumatoid arthritis, hypothyroidism, and lifelong non-smoker. We saw this patient last on 06/26/2023,, she was on 2 L nasal cannula, her labs were unremarkable, her sputum cultures were nondiagnostic, blood cultures were nondiagnostic, she had relatively normal renal profile, and she was at the time on warfarin, Symbicort, Singulair and albuterol. Patient was discharged to the [facility] on the [place]. Patient was discharged on amiodarone, Coumadin, prednisone 20 mg daily, Lopressor, and nystatin swish and swallow. Otherwise the patient was kept on her usual medications including Symbicort, Jardiance, levothyroxine, Singulair, Fosamax, ascorbic acid, atorvastatin, Lasix 40 mg p.o. daily, and Xanax. As well as albuterol. Patient was sent from the [facility] down to the ER today mostly because of low O2 saturation, and patient was noted to have some shortness of breath. Chest x-ray on this admission showed cardiomegaly and mild pulmonary vascular congestion, no clear-cut evidence of pneumonia. As a matter fact her chest x-ray shows significant improvement compared to her initial chest x-ray on her last admission. In addition to her shortness of breath, patient was noted to have abnormal labs with a potassium of 6.2, her BUN is 79 and creatinine 1.71. Patient was also noted to have elevated BNP level of 27,000 and troponin leak. ABG on 50% FiO2 showed a pO2 of 69 pCO2 48 pH of 7.54. Patient is now on 3 L nasal cannula, seems to be comfortable, not in distress. Seen by nephrology for her acute kidney injury, ATN, hyperkalemia with acute kidney injury and apparently the patient was on Bactrim and the recommendation by nephrology was to continue with IV fluids, IV antibiotics, and repeat labs in AM. Patient has a very poor urine output, I did recommend a fluid bolus of 500 cc of saline while in the ER, blood pressure is marginal. Considering her marginal low blood pressure, I am recommending that the patient goes to the ICU. Nephrology is addressing her abnormal renal profile and hyperkalemia The patient is seen today June 30, 2023 in follow-up in the emergency department. She is currently sitting up in the stretcher. Awake and alert in no acute distress. Doing quite a bit better today compared to yesterday. Tolerating a clear liquid breakfast. Maintaining O2 saturations in the upper 90s on 6 L/min per nasal cannula. She has been afebrile. Hemodynamically stable. X-ray reveals some diffuse hazy and patchy bilateral airspace disease. Blood cultures are pending. White count 19.8. Hemoglobin 8.6. Platelets 210. Sodium 135. Potassium 4.4. Bicarb 32. BUN 70. Creatinine 1.21. Glucose 149. AST 250. ALT 242. Alk phos 403. Echocardiogram reveals a hyperdynamic LV with a EF around 70%. There is severe mitral stenosis and moderate aortic stenosis. Severe pulmonary hypertension with an RVSP exceeding 50 mmHg. She is continued on DuoNeb ventilations, IV diuretics, antibiotics in the form of vancomycin and cefepime. Procalcitonin pending. The patient is seen today July 01, 2023 in follow-up on the regular medical floor. She is currently sitting up in bed. Awake and alert in no acute distress. She is maintaining O2 saturations in the 90s on 6 L high flow nasal cannula. Her procalcitonin was 1.16. She remains on cefepime and vancomycin. Cultures are pending. Creatinine 1.18. Glucose 121. INR 6.4. She remains on bronchodilators, oral diuretics, anticoagulated with warfarin. The patient is seen today July 02, 2023 in follow-up on the regular medical floor. She is currently resting in bed. Awake and alert in no acute distress. She is maintaining good O2 saturations up to 100% on 6 L/min per nasal cannula. She is afebrile. Hemodynamically stable. Ultrasound of the abdomen reveals hepatic steatosis with ascites adjacent to the liver. Echogenic material within the gallbladder lumen with masslike appearance. Borderline gallbladder wall thickening. Hemoglobin 6.9. She is receiving 1 unit of packed red blood cells. Platelets 113. White count 4.7. INR 2.3. Sodium 135. Potassium 5.3. Bicarb 29. BUN 58. Creatinine 1.4. Glucose 103. She is continued on DuoNeb in halations, cefepime and vancomycin. Remains on oral diuretics. The patient is seen today July 03, 2023 in follow-up on the regular medical floor. She is awake and alert in no acute distress. Sitting up in bed. Denies any worsening shortness of breath, cough or congestion. She is down to 2 L/min per nasal cannula. No IV fluids. She is continued on Maxipime and vancomycin. CT scan of the abdomen and pelvis reveals a left rectus hematoma. Moderate cardiomegaly. Moderate to severe diffuse opacities in the lungs could be due to edema atelectasis or infection. Chronic and likely incidental findings. X-ray of the left ankle reveals no evidence of acute fracture. Status post 1 unit of packed red blood cells this admission. Current hemoglobin 8.7. White count 4.5. Platelets 110. Sodium 130. Potassium 4.6. Bicarb 30. BUN 57. Creatinine 1.53. Glucose 87. AST 292. ALT 235. Vancomycin trough 18.0. She remains on DuoNeb inhalations. Oral diuretics. Receiving iron supplements. The patient is seen today July 04, 2023 in follow-up on the regular medical floor. He is currently sitting up in bed. Awake and alert in no acute distress. Maintaining good O2 saturations in the 90s on 2 L/min per nasal cannula. She denies any worsening shortness of breath, cough or congestion. She denies any abdominal pain. No fever or chills. White count 4.6. Hemoglobin 8.7. Platelets 123. Sodium 133. Potassium 4.4. Bicarb 26. BUN 51. Creatinine 1.3. Glucose 97. AST 211. ALT 214. Alk phos 164. Hepatobiliary scan pending. Chest x-ray reveals stable scattered airspace disease unchanged compared to previous. The patient is seen today July 05, 2023 in follow-up on the regular medical floor. She is resting comfortably in bed. Awake and alert in no acute distr ess. She is now on room air. No IV fluids. She remains on cefepime. Continued on bronchodilators. Continued on oral diuretics. Urine culture positive for Chaparrita. Blood cultures revealed no growth. White count 8.0. Hemoglobin 8.6. Platelets 149. Sodium 136. Potassium 4.1. Bicarb 52. Cr eatinine 1.4. AST 218. ALT 153. Hepatobiliary scan was within normal limits. Currently in a negative 1.6 L balance. The patient is seen today July 06, 2023 in follow-up on the regular medical fl oor. She is sitting up in bed. Family is at the bedside. She remains quite weak and debilitated. She is maintaining good O2 saturations in the 90s on room air. She remains on cefepime. Continued on bronchodilators. Remains on oral diuretics. White count 11.7. Hemoglobin 8.5. Platelets 167. Sodium 137. Potassium 3.4. Bicarb 26. BUN 49. Creatinine 1.1. Glucose 88. The patient is seen today July 07, 2023 in follow-up on the regular medical floor. She is awake and alert in no acute distress. She does remain very weak and debilitated. Not taking much oral intake. White count 12.0. Hemoglobin 8.8. Platelets 189. Sodium 137. Potassium 4.3. Bicarb 25. BUN 52. Creatinine 1.2. Glucose 79. AST 135. ALT 178. She remains in a -750 mL balance. She is continued on DuoNeb inhalations. Remains on oral diuretics. Remains on cefepime. On today's evaluation of 07/08/2023, the patient is being seen for a follow-up. The patient is calm and comfortable. No specific complaints. The patient is currently on room air oxygen with a pulse ox of 97%. WBC count is 11.8 with a hemoglobin 8.8 and a platelet count of 159. BUN is 56 with a creatinine 1.09 and sodium levels at 136. Patient is on DuoNeb updrafts. Patient is also on anticoagulation with warfarin. Antibiotic coverage remains on a combination of IV cefepime and Eraxis. Patient remains on Lasix 40 mg p.o. daily. Urine cultures positive for Chaparrita albicans. No other new complaints otherwise for now. In terms of her gallbladder disease, the patient has echogenic material within the gallbladder lumen and masslike appearance and borderline gallbladder wall thickening with some elevation in the LFTs. She is considered to be a poor surgical candidate and no surgical intervention has been recommended and the patient is going to be treated conservatively. LFTs were essentially improving and based on the most recent labs were obtained on 07/07/2023. On today's evaluation of 07/09/2023, patient is being seen for a follow-up. No new complaints. Patient is currently on room air oxygen with a pulse ox of 93%. Blood work shows a sodium level of 134, BUN is 48 with a creatinine 1.2 and WBC count 12.8 with a hemoglobin of 7.9. The patient is having diarrhea and she does have a fecal management system in place. T the stool was checked for C. difficile and it was negative and the patient was given Lomotil and cholestyramine. She is currently on Eraxis. No nausea or vomiting. No emesis. Objective - Vital Signs Vital signs: Vital Signs Temp 97.4 F L 07/09/23 07:06 Pulse 64 07/09/23 09:37 Resp 18 07/09/23 07:06 BP 105/54 07/09/23 07:06 Pulse Ox 95 07/09/23 09:29 FiO2 21 07/05/23 07:54 Intake & Output 07/08/23 07/09/23 07/09/23 18:59 06:59 18:59 Output Total 1553 Balance -1553 Weight 53.5 kg 52.5 kg Output: Urine 1350 Stool 203 Other: Voiding Method Indwelling Catheter Indwelling Catheter Indwelling Catheter # Voids 3 # Bowel Movements 2 - Exam GENERAL EXAM: Alert, weak 82-year-old female, on room air, in no apparent distress. HEAD: Normocephalic. EYES: Normal reaction of pupils, equal size. NOSE: Clear with pink turbinates. THROAT: No erythema or exudates. NECK: No masses, no JVD. CHEST: No chest wall deformity. LUNGS: Equal air entry with crackles in the bilateral bases. CVS: S1 and S2 normal with no audible murmur, regular rhythm. ABDOMEN: No hepatosplenomegaly, normal bowel sounds, no guarding or rigidity. SPINE: No scoliosis or deformity SKIN: No rashes CENTRAL NERVOUS SYSTEM: No focal deficits, tone is normal in all 4 extremities. EXTREMITIES: There is no peripheral edema. No clubbing, no cyanosis. Peripheral pulses are intact. - Labs CBC & Chem 7: 07/09/23 05:23 07/09/23 05:23 Labs: Abnormal Lab Results - Last 24 Hours (Table) 07/08/23 07/09/23 07/09/23 Range/Units 20:06 05:23 05:23 WBC 12.80 H (4.50-10.00) X 10*3/uL RBC 2.58 L (4.10-5.20) X 10*6/uL Hgb 7.9 L (12.0-15.0) g/dL Hct 26.2 L (37.2-46.3) % MCV 101.6 H (80.0-97.0) FL MCHC 30.2 L (32.0-37.0) g/dL RDW 18.7 H (11.5-14.5) % NRBC/100 WBC Diff 0.04 H (0.00-0.01) X 10*3/uL Sodium 134 L (135-145) mmol/L BUN 48.2 H (9.0-27.0) mg/dL Est GFR (CKD-EPI) 46 L (>=60) BUN/Creatinine Ratio 40.17 H (12.00-20.00) Ratio POC Glucose (mg/dL) 277 H (70-110) mg/dL Calcium 7.8 L (8.7-10.3) mg/dL Assessment and Plan Plan: Acute on chronic hypoxic respiratory failure, multifactorial, recovered and on room air, no signs of any respite distress at this point in time. Acute on chronic congestive heart failure with preserved ejection fraction hyperdynamic LV with an ejection fraction of 70% Anemia of chronic disease and the patient's hemoglobin is stable for now Diarrhea and the patient is a fecal management system in place. Stool for C. difficile has been negative Echogenic material within the gallbladder lumen with masslike appearance. Borderline gallbladder thickening. Hepatobiliary scan within normal limits, LFTs are improving and the patient is going to be treated conservatively and she is considered to be high surgical risk for gallbladder surgery. Hepatic steatosis with ascites adjacent to the liver suspected Transaminitis, trending down Severe mitral stenosis Mild to moderate aortic stenosis Severe pulmonary hypertension with RVSP exceeding 50 mmHg History of COVID-19 pneumonia and healthcare acquired pneumonia, patient was treated with remdesivir on the last admission History of rheumatoid arthritis and possibly some component of interstitial lung disease Severe mitral valve disease with severe mitral stenosis, and mild aortic regurgitation and stenosis. History of rheumatoid arthritis Hypothyroidism Lifelong non-smoker Mild intermittent asthma Acute kidney injury/ATN Acute hyperkalemia secondary to acute kidney injury, patient had recent treatmen t with Bactrim for a UTI. Pyuria, UTI, possible sepsis from urinary tract infection Plan: No significant respiratory distress at this point in time. Stable and on room air Very weak and debilitated Plan is for subacute rehab post discharge
[2023-07-09 16:49] LABS: Glucose,Whole Blood 190 mg/dL (70-110)
[2023-07-09] MEDS: WARFARIN 0.5 MG TAB PO ONE (17:02)
[2023-07-09] MEDS: SERTRALINE 25 MG TAB PO SCH (17:07)
--- NOTE | 2023-07-09 19:38 | P.PN ---
Subjective Patient is seen for follow-up for acute kidney injury. renal function has improved. No significant complaints today. serum creatinine 1.2 today. Objective - Vital Signs Vital signs: Vital Signs Temp 97.3 F L 07/09/23 14:45 Pulse 60 07/09/23 16:23 Resp 18 07/09/23 14:45 BP 102/51 07/09/23 14:45 Pulse Ox 93 L 07/09/23 14:45 FiO2 21 07/05/23 07:54 Intake & Output 07/09/23 07/09/23 07/10/23 06:59 18:59 06:59 Output Total 1553 300 Balance -1553 -300 Weight 52.5 kg Output: Urine 1350 300 Stool 203 Other: Voiding Method Indwelling Catheter Indwelling Catheter - Exam patient is awake, comfortable, in no acute distress Examination of the heart S1 and S2 Examination of the lungs bilateral breath sounds are heard Abdomen is soft nontender Examination of lower extremity shows no evidence of edema. LATHER APPRENTICE exam grossly intact - Labs CBC & Chem 7: 07/09/23 05:23 07/09/23 05:23 Labs: Abnormal Lab Results - Last 24 Hours (Table) 07/08/23 07/09/23 07/09/23 Range/Units 20:06 05:23 05:23 WBC 12.80 H (4.50-10.00) X 10*3/uL RBC 2.58 L (4.10-5.20) X 10*6/uL Hgb 7.9 L (12.0-15.0) g/dL Hct 26.2 L (37.2-46.3) % MCV 101.6 H (80.0-97.0) FL MCHC 30.2 L (32.0-37.0) g/dL RDW 18.7 H (11.5-14.5) % NRBC/100 WBC Diff 0.04 H (0.00-0.01) X 10*3/uL Sodium 134 L (135-145) mmol/L BUN 48.2 H (9.0-27.0) mg/dL Est GFR (CKD-EPI) 46 L (>=60) BUN/Creatinine Ratio 40.17 H (12.00-20.00) Ratio POC Glucose (mg/dL) 277 H (70-110) mg/dL Calcium 7.8 L (8.7-10.3) mg/dL 07/09/23 Range/Units 16:48 WBC (4.50-10.00) X 10*3/uL RBC (4.10-5.20) X 10*6/uL Hgb (12.0-15.0) g/dL Hct (37.2-46.3) % MCV (80.0-97.0) FL MCHC (32.0-37.0) g/dL RDW (11.5-14.5) % NRBC/100 WBC Diff (0.00-0.01) X 10*3/uL Sodium (135-145) mmol/L BUN (9.0-27.0) mg/dL Est GFR (CKD-EPI) (>=60) BUN/Creatinine Ratio (12.00-20.00) Ratio POC Glucose (mg/dL) 190 H (70-110) mg/dL Calcium (8.7-10.3) mg/dL Assessment and Plan Assessment: 1. Acute kidney injury, ATN currently nonoliguric secondary to underlying infection and hypotension. Serum creatinine also elevated from Bactrim. UA shows WBC 17 1+ protein with WBC clumps and yeast. Ultrasound shows no evidence of obstructive uropathy. 2. Hyperkalemia associated with acute kidney injury and use of Bactrim 3. Pyuria with urine cultures growing Chaparrita 4. History of CHF, diastolic with recent echocardiogram on 05/28/2023 showing EF of 60-65% 5. Severe pulmonary hypertension 6. Severe mitral valve stenosis 7. Mental status changes likely related to underlying infection and hypotension, improved Plan: continue with oral Lasix clear for discharge from nephrology standpoint. Continue with midodrine
[2023-07-09 20:26] LABS: Glucose,Whole Blood 200 mg/dL (70-110)
[2023-07-10 06:20] LABS: INR 1.1 (<1.2); Prothrombin Time 11.7 sec (10.0-12.5)
[2023-07-10 06:24] LABS: Glucose,Whole Blood 141 mg/dL (70-110)
[2023-07-10 08:58] LABS: HGB 7.7 g/dL (12.0-15.0); MCH 30.3 pg (27.0-32.0); MCHC 30.8 g/dL (32.0-37.0); MCV 98.4 FL (80.0-97.0); Mean Platelet Volume 10.7 FL (9.5-12.2); NRBC Per 100 WBC 0.02 X 10*3/uL (0.00-0.01); Platelet Count 202 X 10*3/uL (140-440); RBC 2.54 X 10*6/uL (4.10-5.20); RDW 18.8 % (11.5-14.5); WBC 15.28 X 10*3/uL (4.50-10.00)
--- NOTE | 2023-07-10 11:17 | P.PN ---
Subjective Patient is seen for follow-up for acute kidney injury. renal function has improved. No significant complaints today. serum creatinine 1.2 yesterday Objective - Vital Signs Vital signs: Vital Signs Temp 96.4 F L 07/10/23 08:24 Pulse 56 L 07/10/23 08:24 Resp 19 07/10/23 08:24 BP 95/56 07/10/23 08:24 Pulse Ox 95 07/10/23 08:24 FiO2 21 07/05/23 07:54 Intake & Output 07/09/23 07/10/23 07/10/23 18:59 06:59 18:59 Output Total 300 200 Balance -300 -200 Weight 54.5 kg Output: Urine 300 200 Other: Voiding Method Indwelling Catheter Indwelling Catheter - Exam patient is awake, comfortable, in no acute distress Examination of the heart S1 and S2 Examination of the lungs bilateral breath sounds are heard Abdomen is soft nontender Examination of lower extremity shows no evidence of edema. CFD ENGINEER exam grossly intact - Labs CBC & Chem 7: 07/10/23 05:33 07/09/23 05:23 Labs: Abnormal Lab Results - Last 24 Hours (Table) 07/09/23 07/09/23 07/10/23 Range/Units 16:48 20:25 05:33 WBC 15.28 H (4.50-10.00) X 10*3/uL RBC 2.54 L (4.10-5.20) X 10*6/uL Hgb 7.7 L (12.0-15.0) g/dL Hct 25.0 L (37.2-46.3) % MCV 98.4 H (80.0-97.0) FL MCHC 30.8 L (32.0-37.0) g/dL RDW 18.8 H (11.5-14.5) % NRBC/100 WBC Diff 0.02 H (0.00-0.01) X 10*3/uL POC Glucose (mg/dL) 190 H 200 H (70-110) mg/dL 07/10/23 Range/Units 06:22 WBC (4.50-10.00) X 10*3/uL RBC (4.10-5.20) X 10*6/uL Hgb (12.0-15.0) g/dL Hct (37.2-46.3) % MCV (80.0-97.0) FL MCHC (32.0-37.0) g/dL RDW (11.5-14.5) % NRBC/100 WBC Diff (0.00-0.01) X 10*3/uL POC Glucose (mg/dL) 141 H (70-110) mg/dL Assessment and Plan Assessment: 1. Acute kidney injury, ATN currently nonoliguric secondary to underlying infection and hypotension. Serum creatinine also elevated from Bactrim. UA shows WBC 17 1+ protein with WBC clumps and yeast. Ultrasound shows no evidence of obstructive uropathy. 2. Hyperkalemia associated with acute kidney injury and use of Bactrim 3. Pyuria with urine cultures growing Chaparrita 4. History of CHF, diastolic with recent echocardiogram on 05/28/2023 showing EF of 60-65% 5. Severe pulmonary hypertension 6. Severe mitral valve stenosis 7. Mental status changes likely related to underlying infection and hypotension, improved Plan: continue with oral Lasix clear for discharge from nephrology standpoint. Continue with midodrine
[2023-07-10 11:57] LABS: Glucose,Whole Blood 88 mg/dL (70-110)
--- NOTE | 2023-07-10 12:09 | P.PN ---
Subjective 82-year-old lady with past medical history significant for congestive heart failure, atrial fibrillation with RVR,presented to the ER because of worsening shortness of breath. Patient was only recently discharged on 06/25 after being treated in the hospital for similar complaints.after discharge, patient was all right for 1 day but started noticing that she was getting more short of breath on exertion. Patient denied any chest pain. There was no complain of orthopnea or PND. There was no complain of swelling of feet. There was no complain of fever or chills. Patient oxygen requirements were also increasing so she was transferred back to the ER Initial lab work done in the ER showed WBC 28, hemoglobin 10.5, platelet count 332, INR 3.7, sodium 138, potassium 6.2, BUN 79, creatinine1.71, AST 378, ALT 350, troponin 0.247 EKG done in the ER showed heart rate of 81 , no ST segment elevation or depression seen, no T-wave inversions seen. Chest x-ray done in the ER showed cardiomegaly and moderate vascular congestion Patient admitted to internal medicine service 06/29. Patient seen and examined. Blood work done this morning showed WBC 19.8, hemoglobin 8.6, sodium 135, potassium 4.4, BUN 70, creatinine 1.21. Ox requirements have improved, currently on 6 L of oxygen. Patient is much more talkative compared to yesterday. Answering questions. 07/01/2023 Patient examined today in follow up. Remains on 6L of oxygen, more awake and alert. She continues on clear liquid diet which will be upgraded pending speech therapy recommendations as there is concern for aspiration. Indwelling catheter remains in place for urinary retention with concern for acute UTI which family feels was caused from the IDC placed prior to her previous discharge. She has been started on cefepime and vancomycin with concern for sepsis. White blood c ell count has normalized to 5.7. Hemoglobin 7.1. INR 6.4 and warfarin remains on hold. Renal function stable. LFTs remain significantly elevated. 07/02/2023 Patient is evaluated today on the medical floor. Weaned down to 4L of oxygen. LFTs remain elevated. Gallbladder ultrasound completed revealing hepatic steatosis with ascites adjacent to the liver suspected. Echogenic materinal within the gallbladder lumen with masslike appearance. Borderline wall thickening. Hemoglobin 6.9 today. Patient will receive 1 unit of blood. Jevon PCR positive. 07/03/2023 Patient continues to report feeling fatigued. Was able to be weaned down to 2L of oxygen. Does have visible bruising over the left abdomen. Had abdominal pelvis CT done today which reveals a 6.8 x 2.6 x 12 cm left abdominal rectus hematoma. INR has improved down to 1.2 and this will likely only need conservative management however general surgery was consulted. There is also mention of distended gallbladder although no mention of an acute cholecystitis, dilated ducted. Patient has consistently elevated LFTs this could be due to infe ction however general surgery recommending HIDA scan. Left ankle xray was completed due to the bruising and mild soft tissue swelling patient states this was injured end of March when she fell. There is no acute fracture noted and patient would benefit from icing and elevation as well as light compression. 07/04/2023 Patient is evaluated on the medical floor. Continues to feel fatigued. Has not been out of bed much and has fair appetite. Family has been coming to assist with meal time feeding. General surgery following for the rectus sheath hematoma and INR has normalized and patient is being monitored off coumadin at this time. HIDA scan completed for further evaluation of the gallbladder which was normal. Recommendations for cholecystectomy however after cardiology re-evaluation felt patient was high risk for surgery. Patient has significant valvular heart disease and there is concern for possible interstitial lung disease she will be taken off the amiodarone at this time. Hemoglobin is stable at 8.7. 07/05/2023 Patient is evaluated today sitting up in the chair with at the bedside. Patient has been more awake and alert and has increased appetite. Family has been coming in to help her at every meal. Hemoglobin stable at 8.6. Patient is continued on IV cefepime with ID following closely. Not a surgical candidate. Abdominal bruising improving. IDC remains and family has concerns and would like it removed before discharge to rehab. Patient remains off coumadin at this time with general surgery recommendations to continue holding. INR 1.0 today. 07/06/2023 Patient is seen and evaluated in follow-up this morning currently sitting up in bed asleep although arousable. Patient reports feeling tired and denies any significant pain. General surgery following with no plans of surgical intervention given significant comorbidities and not a surgical candidate. Patient is continued on IV antibiotics with infectious disease following. Nephrology following as well and patient is maintained on fluid restrictions. Oral intake remains poor to fair and is being encouraged to attempt to eat small frequent meals. Patient is currently maintaining oxygen saturations above 90% on room air and pulmonary is following closely. Awaiting PT/OT therapy to reevaluate patient will most definitely need rehab on discharge. 07/07/23 : Patient seen and evaluated at bedside, vitals reviewed, blood work reviewed. CBC showed hemoglobin of 8.8, WBC 12, platelet count 189. Serum chemistry showed sodium 137 potassium 4.3 BUN 52 creatinine 1.2 magnesium of 1.6, patient does complain of nausea, continue to hold Coumadin till hemoglobin stabilized 07/08/23 : Patient seen and evaluated bedside, patient started back on Coumadin hemoglobin 8.8 remained stable, serum chemistry reviewed creatinine 1.09, sodium 136 potassium 3.9 calcium 8.1. Liver profile shows trending down of AST and ALT 07/09/23: Seen and evaluated at bedside, blood work reviewed, WBC 12.8 hemoglobin 7.9, serum chemistry reviewed sodium 134 creatinine 1.2, INR 1.1. Continue to remain on IV antibiotics, patient does have diarrhea and does have fecal management system in place, C. difficile was negative continue patient on Lomotil along with cholestyramine I am resuming the care of the patient today 07/10/2023 Patient awake and alert, feels very weak and tired and lethargic She follows commands and answers questions appropriately She has mild abdominal distention, she has ongoing diarrhea, C. difficile has been negative and patient placed on antimotility medication like Lomotil Also patient has mild left ankle swelling and bruise, patient denies falling, x- rays requested ( had negative xray about one week ago) Blood pressure chronically borderline, afebrile and rest of vital stable, Labs reviewed, INR 1.1, has leukocytosis of 15.2, hemoglobin slightly low at 7.9 down to 7.7. Creatinine pending pt currentlyon Eraxis, Coumadin and cholestyramine and Lasix 40 mg discussed with the bedside daughter at bedside and she verbalized understanding and acceptance Discussed with staff Review of systems CONSTITUTIONAL: No fever, no malaise, no fatigue. HEENT: No recent visual problems or hearing problems. Denied any sore throat. CARDIOVASCULAR: No orthopnea, PND, no palpitations, no syncope. NEUROLOGICAL: No headaches, no weakness, no numbness. HEMATOLOGICAL: Denies any bleeding or petechiae. GENITOURINARY: Denies any burning micturition, frequency, or urgency. MUSCULOSKELETAL/RHEUMATOLOGICAL: Denies any joint pain, swelling, or any muscle pain. ENDOCRINE: Denies any polyuria or polydipsia. Active Medications Generic Name Dose Route Start Last Admin Trade Name Freq PRN Reason Stop Dose Admin Acetaminophen 650 mg 07/01/23 20:00 07/10/23 11:04 Acetaminophen Tab 325 Mg Tab PO 650 mg Q6HR PRN Administration Fever and/ or Mild Pain Albuterol/Ipratropium 3 ml 06/29/23 08:00 07/10/23 12:05 Ipratropium-Albuterol 3 Ml Neb INHALATION 3 ml RT-QID PAUL Administration Albuterol/Ipratropium 3 ml 06/29/23 08:00 Ipratropium-Albuterol 3 Ml Neb INHALATION RT-Q2H PRN Shortness Of Breath Or Wheezing Alprazolam 0.25 mg 07/07/23 00:19 07/10/23 04:56 Alprazolam 0.25 Mg Tab PO 0.25 mg Q8HR PRN Administration Anxiety Calcium Carbonate/Glycine 1,000 mg 07/04/23 21:01 07/04/23 21:18 Calcium Carbonate 500 Mg Chewable PO 1,000 mg TID PRN Administration Heartburn Cholestyramine Resin 4 gm 07/08/23 18:00 07/10/23 09:59 Cholestyramine (With Sugar) 4 Gm Packet PO 4 gm BID@1000,1800 PAUL Administration Dronedarone 400 mg 07/05/23 09:00 07/10/23 09:58 Dronedarone 400 Mg Tab PO 400 mg AC-BID PAUL Administration Furosemide 40 mg 07/02/23 09:00 07/10/23 09:58 Furosemide 40 Mg Tab PO 40 mg DAILY PAUL Administration Anidulafungin 100 mg/ Sodium 100 mls @ 84 mls/hr 07/09/23 09:00 07/10/23 09:58 Chloride IVPB 84 mls/hr DAILY PAUL Administration Protocol Insulin Aspart 0 unit 06/29/23 21:00 07/10/23 06:32 Insulin Aspart (Novolog) 100 Unit/Ml Vial SQ Not Given ACHS PAUL Protocol Loperamide HCl 2 mg 07/09/23 13:00 07/10/23 09:58 Loperamide 2 Mg Cap PO 2 mg QID [facility] Administration Metoprolol Tartrate 25 mg 07/05/23 09:00 07/10/23 09:58 Metoprolol Tartrate 25 Mg Tab PO 25 mg BID PAUL Administration Midodrine 5 mg 07/05/23 12:30 07/10/23 09:58 Midodrine 5 Mg Tab PO 5 mg AC-TID PAUL Administration Miscellaneous Information 1 each 07/06/23 12:57 Potassium Replacement Protocol 1 Each Misc MISCELLANE DAILY PRN Per Protocol Protocol Miscellaneous Information 1 each 07/08/23 10:12 Warfarin Per Pharmacy MISCELLANE DIRECTED PRN Per Protocol Protocol Naloxone HCl 0.2 mg 06/29/23 01:11 Naloxone 0.4 Mg/Ml 1 Ml Vial IV Q2M PRN Opioid Reversal Nystatin 500,000 unit 06/29/23 22:00 07/10/23 09:57 Nystatin 100,000 Unit/Ml Susp 500,000 Unit/5 Ml Cup PO 500,000 unit QID [facility] Administration Protocol Ondansetron HCl 4 mg 06/29/23 01:11 07/07/23 12:05 Ondansetron 4 Mg/2 Ml Vial IVP 4 mg Q8HR PRN Administration Nausea And Vomiting Sertraline HCl 25 mg 07/09/23 15:00 07/10/23 09:57 Sertraline 25 Mg Tab PO 25 mg DAILY PAUL Administration Objective - Vital Signs Vital signs: Vital Signs Temp 96.4 F L 07/10/23 08:24 Pulse 56 L 07/10/23 08:24 Resp 19 07/10/23 08:24 BP 95/56 07/10/23 08:24 Pulse Ox 95 07/10/23 08:24 FiO2 21 07/05/23 07:54 Intake & Output 07/09/23 07/10/23 07/10/23 18:59 06:59 18:59 Output Total 300 200 Balance -300 -200 Weight 54.5 kg Output: Urine 300 200 Other: Voiding Method Indwelling Catheter Indwelling Catheter - Exam -GENERAL: The patient is alert and oriented x3, not in any acute distress. Well developed, well nourished. General weakness HEENT: Pupils are round and equally reacting to light. EOMI. No scleral icterus. No conjunctival pallor. Normocephalic, atraumatic. No pharyngeal erythema. No thyromegaly. CARDIOVASCULAR: S1 and S2 present. No murmurs, rubs, or gallops. PULMONARY: Chest is clear to auscultation, no wheezing , no crackles. -ABDOMEN: Soft, nontender, mildly distended, normoactive bowel sounds. No palpable organomegaly. MUSCULOSKELETAL: No joint swelling or deformity. -EXTREMITIES: No cyanosis, clubbing, or pedal edema. Left ankle swelling with mild bruising on the medial side NEUROLOGICAL: Gross neurological examination did not reveal any focal deficits. SKIN: No rashes. no petechiae. - Labs CBC & Chem 7: 07/10/23 05:33 07/09/23 05:23 Labs: Abnormal Lab Results - Last 24 Hours (Table) 07/09/23 07/09/23 07/10/23 Range/Units 16:48 20:25 05:33 WBC 15.28 H (4.50-10.00) X 10*3/uL RBC 2.54 L (4.10-5.20) X 10*6/uL Hgb 7.7 L (12.0-15.0) g/dL Hct 25.0 L (37.2-46.3) % MCV 98.4 H (80.0-97.0) FL MCHC 30.8 L (32.0-37.0) g/dL RDW 18.8 H (11.5-14.5) % NRBC/100 WBC Diff 0.02 H (0.00-0.01) X 10*3/uL POC Glucose (mg/dL) 190 H 200 H (70-110) mg/dL 07/10/23 Range/Units 06:22 WBC (4.50-10.00) X 10*3/uL RBC (4.10-5.20) X 10*6/uL Hgb (12.0-15.0) g/dL Hct (37.2-46.3) % MCV (80.0-97.0) FL MCHC (32.0-37.0) g/dL RDW (11.5-14.5) % NRBC/100 WBC Diff (0.00-0.01) X 10*3/uL POC Glucose (mg/dL) 141 H (70-110) mg/dL Assessment and Plan Assessment: Assessment and plan Left ankle swelling Abdominal distention Acute hypoxic respiratory failure due to asthma exacerbation; requiring 6L and has weaned to room air. Non-ST elevation MS Left abdominal rectus sheath hematoma Acute on chronic diastolic heart failure; Moderate to severe mitral calcification, moderate to severe mitral stenosis, mild aortic regurgitation and stenosis, Pulmonary hypertension WHO class II. Hyperkalemia normalized Anemia iron deficient with acute blood loss anemia from the left rectus sheath hematoma Acute transaminitis with concern for acute cholecystitis, HIDA scan normal. Not a surgical candidate at this time. Acute UTI with sepsis POA. Acute kidney injury Recent hospitalization for COVID in May, PCR still positive; not in active infection. Warfarin toxicity resolved. Paroxysmal atrial fibrillation currently maintaining normal sinus rhyhtm. History of coronary artery disease with previous PCI/stent x3 History of hyperlipidemia History of hypertension Rheumatoid arthritis History of hypothyroidism Mild protein calorie malnutrition Stage 2 pressure injury on right and left buttock present on admission Sacral decubitus ulcer, unstageable present on admission. Lifelong non-smoker Plan: Check KUB Check left ankle x-rays Continue with Coumadin Continue with Eraxis for fungal UTI Ongoing diarrhea suspicious for acute gastroenteritis, continue monitoring Patient cleared for discharge by nephrology Surgery team planning to continue monitoring and possible debridement of sacral pressure ulcer Pulmonary team on the case, ID team on the case Cardiology team signed off Labs and medication were reviewed.. Continue same treatment. Continue with symptomatic treatment. Resume home medication. Monitor labs and vitals. DVT and GI prophylaxis. Further recommendations as per clinical course of the patient DVT prophylaxis: Coumadin GI Prophylaxis: Pepcid PT/OT: Pen subacute rehab Prognosis is guarded
--- NOTE | 2023-07-10 13:46 | XR ---
EXAMINATION TYPE: XR KUB portable DATE OF EXAM: 07/10/2023 1:42 PM CLINICAL INDICATION:Female, 82 years old with history of distended abd and diarrhea; COMPARISON: 06/23/2023. TECHNIQUE: One radiographic view of the abdomen was obtained. FINDINGS: The gaseous distention of the stomach. Bowel gas pattern is nonspecific without dilated loo ps of small or large bowel. There is no evidence for organomegaly or pneumoperitoneum. The osseous s tructures are intact. No abnormal calcifications are present. Fecal material and gas are demonstrate d throughout the colon and rectum. Severe degeneration changes at the joint space narrowing and oste ophyte formation. Moderate to severe degeneration changes of the lower spine with osteophyte formatio n and mild scoliosis. IMPRESSION: Gaseous distention of the stomach, otherwise nonspecific bowel gas pattern.
--- NOTE | 2023-07-10 13:47 | XR ---
EXAMINATION TYPE: XR ankle limited LT DATE OF EXAM: 07/10/2023 1:42 PM CLINICAL INDICATION:Female, 82 years old with history of swollen and bruise; COMPARISON: None TECHNIQUE: XR ankle limited LT; ankle is imaged in frontal, lateral and oblique projections. FINDINGS: There is no evidence of acute osseous pathology. The joint spaces are well-preserved without evidenc e of subluxation or dislocation. Kager's fat pad is intact. Calcaneal Achilles enthesophyte formation . Mild soft tissue swelling around the ankle. No radiopaque foreign bodies are identified. IMPRESSION: 1. No evidence of acute fracture. 2. Subcutaneous swelling around the ankle likely secondary to underlying soft tissue injury.
--- NOTE | 2023-07-10 14:26 | P.PN ---
Subjective Progress Note Date: 07/10/23 CHIEF COMPLAINT: Shortness of breath HISTORY OF PRESENT ILLNESS: Surgical service following in regards to patient's acute cholecystitis and Left rectus sheath hematoma. Patient reports no abdominal pain. She is tolerating diet. Patient has a sacral decubitus ulcer. She is receiving local wound care. Patient continues to have diarrhea. No nausea or vomiting. Afebrile WBC is up at 15.2 hemoglobin 7.7 platelets 202 INR 1.1 PHYSICAL EXAM: VITAL SIGNS: Reviewed. GENERAL: Well-developed in no acute distress. ABDOMEN: Soft. Nondistended. Nontender. No right upper quadrant tenderness. Mild tenderness along the left lower abdomen. Decreased ecchymosis NEUROLOGIC: Alert and oriented. Cranial nerves II through XII grossly intact. Skin: Sacral decubitus ulcer with small area of darkened tissue. No drainage. Posterior left upper thigh at buttocks crease ulceration with slough ASSESSMENT: 1. Acute cholecystitis. Echogenic material within the gallbladder lumen with masslike appearance and borderline gallbladder wall thickening noted on ultrasound 2. Elevated LFTs 3. Left abdominal rectus sheath hematoma with Coumadin toxicity present on admission 4. Acute blood loss anemia due to rectus sheath hematoma requiring blood transfusion 5. Sacral decubitus ulcer and ulceration posterior left upper thigh PLAN: -Patient is a poor surgical candidate. No surgical intervention planned. -Recommend no debridement of the sacral and upper left posterior thigh. Patient is a poor surgical candidate. -Continue local wound care -Continue offloading -Continue medical management -Continue low-fat diet -Okay to resume Coumadin Physician General Assignment Reporter note has been reviewed by physician. Signing provider agrees with the documented findings, assessment, and plan of care. Objective - Vital Signs Vital signs: Vital Signs Temp 96.4 F L 07/10/23 08:24 Pulse 60 07/10/23 12:18 Resp 19 07/10/23 08:24 BP 95/56 07/10/23 08:24 Pulse Ox 95 07/10/23 08:24 FiO2 21 07/05/23 07:54 Intake & Output 07/09/23 07/10/23 07/10/23 18:59 06:59 18:59 Output Total 300 200 Balance -300 -200 Weight 54.5 kg Output: Urine 300 200 Other: Voiding Method Indwelling Catheter Indwelling Catheter - Labs CBC & Chem 7: 07/10/23 05:33 07/09/23 05:23 Labs: Abnormal Lab Results - Last 24 Hours (Table) 07/09/23 07/09/23 07/10/23 Range/Units 16:48 20:25 05:33 WBC 15.28 H (4.50-10.00) X 10*3/uL RBC 2.54 L (4.10-5.20) X 10*6/uL Hgb 7.7 L (12.0-15.0) g/dL Hct 25.0 L (37.2-46.3) % MCV 98.4 H (80.0-97.0) FL MCHC 30.8 L (32.0-37.0) g/dL RDW 18.8 H (11.5-14.5) % NRBC/100 WBC Diff 0.02 H (0.00-0.01) X 10*3/uL POC Glucose (mg/dL) 190 H 200 H (70-110) mg/dL 07/10/23 Range/Units 06:22 WBC (4.50-10.00) X 10*3/uL RBC (4.10-5.20) X 10*6/uL Hgb (12.0-15.0) g/dL Hct (37.2-46.3) % MCV (80.0-97.0) FL MCHC (32.0-37.0) g/dL RDW (11.5-14.5) % NRBC/100 WBC Diff (0.00-0.01) X 10*3/uL POC Glucose (mg/dL) 141 H (70-110) mg/dL
[2023-07-10 16:45] LABS: Glucose,Whole Blood 89 mg/dL (70-110)
[2023-07-10] MEDS: WARFARIN 0.5 MG TAB PO ONE (18:02)
[2023-07-10 21:04] LABS: Glucose,Whole Blood 85 mg/dL (70-110)
[2023-07-10 21:43] LABS: NT-Pro-B-Type Natriuretic Pept 4841 pg/mL (0-450)
[2023-07-10 22:05] LABS: Amorphous Sediment,Urine Rare /hpf; Appearance,Urine Cloudy (Clear); Bacteria,Urine Rare /hpf; Bilirubin,Urine Negative (Negative); Blood,Urine Moderate (Negative); Budding Yeast,Urine Moderate /hpf; Color,Urine Yellow; Glucose,Urine (UA) Negative (Negative); Granular Casts,Urine 5 /lpf (0); Hyaline Casts,Urine 2 /lpf (0-2); Ketones,Urine Trace (Negative); Leukocyte Esterase,Urine Large (Negative); Mucus,Urine Rare /hpf; Nitrite,Urine Negative (Negative); PH, Urine 5.5 (5.0-8.0); Protein,Urine 1+ (Negative); RBC,Urine 14 /hpf (0-5); Specific Gravity,Urine 1.016 (1.001-1.035); Squamous Epithelial Cell,Urine <1 /hpf (0-4); Urobilinogen,Urine <2.0 mg/dL (<2.0); WBC,Urine >182 /hpf (0-5)
[2023-07-10 22:46] LABS: BUN/Creat Ratio 38.29 Ratio (12.00-20.00); Blood Urea Nitrogen 53.6 mg/dL (9.0-27.0); Calcium 8.2 mg/dL (8.7-10.3); Carbon Dioxide 20.6 mmol/L (21.6-31.8); Chloride 103 mmol/L (96-109); Glucose 83 mg/dL (70-110); Potassium 4.1 mmol/L (3.5-5.5); Sodium 135 mmol/L (135-145)
[2023-07-11 05:59] LABS: Glucose,Whole Blood 80 mg/dL (70-110)
[2023-07-11 06:33] LABS: INR 1.1 (<1.2); Prothrombin Time 11.4 sec (10.0-12.5)
[2023-07-11 09:01] LABS: BUN/Creat Ratio 40.13 Ratio (12.00-20.00); Blood Urea Nitrogen 60.2 mg/dL (9.0-27.0); Carbon Dioxide 21.4 mmol/L (21.6-31.8); Chloride 104 mmol/L (96-109); Glucose 72 mg/dL (70-110); Potassium 4.4 mmol/L (3.5-5.5); Sodium 134 mmol/L (135-145)
[2023-07-11 10:01] LABS: HCT 26.1 % (37.2-46.3); HGB 7.7 g/dL (12.0-15.0); MCH 29.8 pg (27.0-32.0); MCHC 29.5 g/dL (32.0-37.0); MCV 101.2 FL (80.0-97.0); Mean Platelet Volume 10.5 FL (9.5-12.2); NRBC Per 100 WBC 0.02 X 10*3/uL (0.00-0.01); Platelet Count 212 X 10*3/uL (140-440); RBC 2.58 X 10*6/uL (4.10-5.20)
--- NOTE | 2023-07-11 10:02 | P.PN ---
Subjective 82-year-old lady with past medical history significant for congestive heart failure, atrial fibrillation with RVR,presented to the ER because of worsening shortness of breath. Patient was only recently discharged on 06/25 after being treated in the hospital for similar complaints.after discharge, patient was all right for 1 day but started noticing that she was getting more short of breath on exertion. Patient denied any chest pain. There was no complain of orthopnea or PND. There was no complain of swelling of feet. There was no complain of fever or chills. Patient oxygen requirements were also increasing so she was transferred back to the ER Initial lab work done in the ER showed WBC 28, hemoglobin 10.5, platelet count 332, INR 3.7, sodium 138, potassium 6.2, BUN 79, creatinine1.71, AST 378, ALT 350, troponin 0.247 EKG done in the ER showed heart rate of 81 , no ST segment elevation or depression seen, no T-wave inversions seen. Chest x-ray done in the ER showed cardiomegaly and moderate vascular congestion Patient admitted to internal medicine service 06/29. Patient seen and examined. Blood work done this morning showed WBC 19.8, hemoglobin 8.6, sodium 135, potassium 4.4, BUN 70, creatinine 1.21. Ox requirements have improved, currently on 6 L of oxygen. Patient is much more talkative compared to yesterday. Answering questions. 07/01/2023 Patient examined today in follow up. Remains on 6L of oxygen, more awake and alert. She continues on clear liquid diet which will be upgraded pending speech therapy recommendations as there is concern for aspiration. Indwelling catheter remains in place for urinary retention with concern for acute UTI which family feels was caused from the IDC placed prior to her previous discharge. She has been started on cefepime and vancomycin with concern for sepsis. White blood c ell count has normalized to 5.7. Hemoglobin 7.1. INR 6.4 and warfarin remains on hold. Renal function stable. LFTs remain significantly elevated. 07/02/2023 Patient is evaluated today on the medical floor. Weaned down to 4L of oxygen. LFTs remain elevated. Gallbladder ultrasound completed revealing hepatic steatosis with ascites adjacent to the liver suspected. Echogenic materinal within the gallbladder lumen with masslike appearance. Borderline wall thickening. Hemoglobin 6.9 today. Patient will receive 1 unit of blood. Jevon PCR positive. 07/03/2023 Patient continues to report feeling fatigued. Was able to be weaned down to 2L of oxygen. Does have visible bruising over the left abdomen. Had abdominal pelvis CT done today which reveals a 6.8 x 2.6 x 12 cm left abdominal rectus hematoma. INR has improved down to 1.2 and this will likely only need conservative management however general surgery was consulted. There is also mention of distended gallbladder although no mention of an acute cholecystitis, dilated ducted. Patient has consistently elevated LFTs this could be due to infe ction however general surgery recommending HIDA scan. Left ankle xray was completed due to the bruising and mild soft tissue swelling patient states this was injured end of March when she fell. There is no acute fracture noted and patient would benefit from icing and elevation as well as light compression. 07/04/2023 Patient is evaluated on the medical floor. Continues to feel fatigued. Has not been out of bed much and has fair appetite. Family has been coming to assist with meal time feeding. General surgery following for the rectus sheath hematoma and INR has normalized and patient is being monitored off coumadin at this time. HIDA scan completed for further evaluation of the gallbladder which was normal. Recommendations for cholecystectomy however after cardiology re-evaluation felt patient was high risk for surgery. Patient has significant valvular heart disease and there is concern for possible interstitial lung disease she will be taken off the amiodarone at this time. Hemoglobin is stable at 8.7. 07/05/2023 Patient is evaluated today sitting up in the chair with at the bedside. Patient has been more awake and alert and has increased appetite. Family has been coming in to help her at every meal. Hemoglobin stable at 8.6. Patient is continued on IV cefepime with ID following closely. Not a surgical candidate. Abdominal bruising improving. IDC remains and family has concerns and would like it removed before discharge to rehab. Patient remains off coumadin at this time with general surgery recommendations to continue holding. INR 1.0 today. 07/06/2023 Patient is seen and evaluated in follow-up this morning currently sitting up in bed asleep although arousable. Patient reports feeling tired and denies any significant pain. General surgery following with no plans of surgical intervention given significant comorbidities and not a surgical candidate. Patient is continued on IV antibiotics with infectious disease following. Nephrology following as well and patient is maintained on fluid restrictions. Oral intake remains poor to fair and is being encouraged to attempt to eat small frequent meals. Patient is currently maintaining oxygen saturations above 90% on room air and pulmonary is following closely. Awaiting PT/OT therapy to reevaluate patient will most definitely need rehab on discharge. 07/07/23 : Patient seen and evaluated at bedside, vitals reviewed, blood work reviewed. CBC showed hemoglobin of 8.8, WBC 12, platelet count 189. Serum chemistry showed sodium 137 potassium 4.3 BUN 52 creatinine 1.2 magnesium of 1.6, patient does complain of nausea, continue to hold Coumadin till hemoglobin stabilized 07/08/23 : Patient seen and evaluated bedside, patient started back on Coumadin hemoglobin 8.8 remained stable, serum chemistry reviewed creatinine 1.09, sodium 136 potassium 3.9 calcium 8.1. Liver profile shows trending down of AST and ALT 07/09/23: Seen and evaluated at bedside, blood work reviewed, WBC 12.8 hemoglobin 7.9, serum chemistry reviewed sodium 134 creatinine 1.2, INR 1.1. Continue to remain on IV antibiotics, patient does have diarrhea and does have fecal management system in place, C. difficile was negative continue patient on Lomotil along with cholestyramine I am resuming the care of the patient today 07/10/2023 Patient awake and alert, feels very weak and tired and lethargic She follows commands and answers questions appropriately She has mild abdominal distention, she has ongoing diarrhea, C. difficile has been negative and patient placed on antimotility medication like Lomotil Also patient has mild left ankle swelling and bruise, patient denies falling, x- rays requested ( had negative xray about one week ago) Blood pressure chronically borderline, afebrile and rest of vital stable, Labs reviewed, INR 1.1, has leukocytosis of 15.2, hemoglobin slightly low at 7.9 down to 7.7. Creatinine pending pt currentlyon Eraxis, Coumadin and cholestyramine and Lasix 40 mg discussed with the bedside daughter at bedside and she verbalized understanding and acceptance Discussed with staff 07/11/2023 Patient awake alert, she is slightly drowsy, she slept more than 3 hours this morning, daughter at bedside and patient she is still sleepy although she is improving compared to yesterday Patient herself feels fine. Daughter discussed with mother to discuss continue Zoloft for her sleepiness but patient's wants to keep it stating that it helped her become less anxious. Because the patient is more and oriented today. She is able to eat this morning. Yesterday she has some abdominal distention, KUB reviewed by myself showing gastric distention which is looks resolved now. Abdomen is not distended now. No bowel movement of diarrhea. She has mild bilateral leg edema and I believe this is given today. Blood pressure is at baseline, low normal with systolic 90-100. Resume Coumadin and follow-up INR. Patient remains on the Eraxis Repeat urine analysis still abnormal, urine culture is pending. Plan to discontinue Caldwell catheter and bladder check Objective - Vital Signs Vital signs: Vital Signs Temp 97.5 F L 07/11/23 01:49 Pulse 80 07/11/23 08:24 Resp 16 07/11/23 08:24 BP 95/57 07/11/23 07:15 Pulse Ox 95 07/11/23 08:13 FiO2 21 07/05/23 07:54 Intake & Output 07/10/23 07/11/23 07/11/23 18:59 06:59 18:59 Intake Total 500 Output Total 330 200 Balance -330 -200 500 Weight 53.5 kg Intake: Oral 500 Output: Urine 330 200 Other: Voiding Method Indwelling Catheter - Exam -GENERAL: The patient is alert and oriented x3, not in any acute distress. Well developed, well nourished. General weakness HEENT: Pupils are round and equally reacting to light. EOMI. No scleral icterus. No conjunctival pallor. Normocephalic, atraumatic. No pharyngeal erythema. No thyromegaly. CARDIOVASCULAR: S1 and S2 present. No murmurs, rubs, or gallops. PULMONARY: Chest is clear to auscultation, no wheezing , no crackles. -ABDOMEN: Soft, nontender, mildly distended, normoactive bowel sounds. No palpable organomegaly. MUSCULOSKELETAL: No joint swelling or deformity. -EXTREMITIES: No cyanosis, clubbing, or pedal edema. Left ankle swelling with mild bruising on the medial side NEUROLOGICAL: Gross neurological examination did not reveal any focal deficits. SKIN: No rashes. no petechiae. - Labs CBC & Chem 7: 07/10/23 05:33 07/11/23 05:43 Labs: Abnormal Lab Results - Last 24 Hours (Table) 07/10/23 07/10/23 07/10/23 Range/Units 09:24 14:40 14:40 Sodium (135-145) mmol/L Carbon Dioxide 20.6 L (21.6-31.8) mmol/L BUN 53.6 H (9.0-27.0) mg/dL Est GFR (CKD-EPI) 38 L (>=60) BUN/Creatinine Ratio 38.29 H (12.00-20.00) Ratio Calcium 8.2 L (8.7-10.3) mg/dL C-Reactive Protein 4.1 H (<1.0) mg/dL NT-Pro-B Natriuret Pep 4841 H (0-450) pg/mL Procalcitonin 0.81 H (0.02-0.09) ng/mL Urine Appearance (Clear) Urine Protein (Negative) Urine Ketones (Negative) Urine Blood (Negative) Ur Leukocyte Esterase (Negative) Urine RBC (0-5) /hpf Urine WBC (0-5) /hpf Urine WBC Clumps (None) /hpf Amorphous Sediment (None) /hpf Urine Bacteria (None) /hpf Urine Mucus (None) /hpf Urine Yeast (Budding) (None) /hpf 07/10/23 07/11/23 Range/Units 21:33 05:43 Sodium 134 L (135-145) mmol/L Carbon Dioxide 21.4 L (21.6-31.8) mmol/L BUN 60.2 H (9.0-27.0) mg/dL Est GFR (CKD-EPI) 35 L (>=60) BUN/Creatinine Ratio 40.13 H (12.00-20.00) Ratio Calcium 8.0 L (8.7-10.3) mg/dL C-Reactive Protein (<1.0) mg/dL NT-Pro-B Natriuret Pep (0-450) pg/mL Procalcitonin (0.02-0.09) ng/mL Urine Appearance Cloudy H (Clear) Urine Protein 1+ H (Negative) Urine Ketones Trace H (Negative) Urine Blood Moderate H (Negative) Ur Leukocyte Esterase Large H (Negative) Urine RBC 14 H (0-5) /hpf Urine WBC >182 H (0-5) /hpf Urine WBC Clumps Rare H (None) /hpf Amorphous Sediment Rare H (None) /hpf Urine Bacteria Rare H (None) /hpf Urine Mucus Rare H (None) /hpf Urine Yeast (Budding) Moderate H (None) /hpf Assessment and Plan Assessment: Acute cholecystitis, not surgical candidate continue with conservative management. Patient currently able to eat with no RUQ tenderness. Acute UTI with sepsis POA. Sacral pressure ulcer requiring debridement or surgery team,. Patient is a poor surgical candidate Acute hypoxic respiratory failure due to asthma exacerbation; requiring 6L and has weaned to room air.. Improved Non-ST elevation PA. Improved Left abdominal rectus sheath hematoma. Stable Acute on chronic diastolic heart failure; Moderate to severe mitral calcification, moderate to severe mitral stenosis, mild aortic regurgitation and stenosis, Pulmonary hypertension WHO class II. Stable Anemia iron deficient with acute blood loss anemia from the left rectus sheath hematoma Acute transaminitis with concern for acute cholecystitis, HIDA scan normal. Not a surgical candidate at this time. Acute kidney injury Recent hospitalization for COVID in May, PCR still positive; not in active infection. Warfarin toxicity resolved. Paroxysmal atrial fibrillation currently maintaining normal sinus rhyhtm. History of coronary artery disease with previous PCI/stent x3 History of hyperlipidemia History of hypertension Rheumatoid arthritis History of hypothyroidism Mild protein calorie malnutrition Stage 2 pressure injury on right and left buttock present on admission Sacral decubitus ulcer, unstageable present on admission. Lifelong non-smoker Left ankle swelling, x-rays negative. Secondary to trauma on admission. Stable and improving Abdominal distention, secondary to gastric distention improved Plan: Continue with Eraxis for fungal UTI And monitor INR Discontinue Caldwell catheter and follow-up repeat urine culture Patient is able to eat with no significant abdominal pain or diarrhea. Continue with Coumadin, monitor INR nephrology team on the case Surgery team planning to continue monitoring and possible debridement of sacral pressure ulcer Pulmonary team on the case, ID team on the case Cardiology team signed off Labs and medication were reviewed.. Continue same treatment. Continue with symptomatic treatment. Resume home medication. Monitor labs and vitals. DVT and GI prophylaxis. Further recommendations as per clinical course of the patient DVT prophylaxis: Coumadin GI Prophylaxis: Pepcid PT/OT: Pen subacute rehab Prognosis is guarded
--- NOTE | 2023-07-11 10:25 | P.PN ---
Subjective Progress Note Date: 07/11/23 CHIEF COMPLAINT: Shortness of breath HISTORY OF PRESENT ILLNESS: Surgical service following in regards to patient's acute cholecystitis and Left rectus sheath hematoma. Patient reports no abdominal pain. She tolerated diet. Appetite better today than yesterday. Patient has a sacral decubitus ulcer. She is receiving local wound care. Patient continues to have diarrhea. Now has FMS. No nausea or vomiting. Afebrile WBC up from 15-16 Hgb 7.7 platelets 212 sodium 134 potassium 4.4 creatinine 1.5 PHYSICAL EXAM: VITAL SIGNS: Reviewed. GENERAL: Well-developed in no acute distress. ABDOMEN: Soft. Nondistended. No right upper quadrant tenderness. Mild tenderness along the left lower abdomen. Decreased ecchymosis NEUROLOGIC: Alert and oriented. Cranial nerves II through XII grossly intact. Skin: Sacral decubitus ulcer with small area of darkened tissue. No drainage. Posterior left upper thigh at buttocks crease ulceration with slough ASSESSMENT: 1. Acute cholecystitis. Echogenic material within the gallbladder lumen with masslike appearance and borderline gallbladder wall thickening noted on ultrasound 2. Elevated LFTs 3. Left abdominal rectus sheath hematoma with Coumadin toxicity present on admission 4. Acute blood loss anemia due to rectus sheath hematoma requiring blood transfusion 5. Sacral decubitus ulcer and ulceration posterior left upper thigh PLAN: -Patient is a poor surgical candidate. No surgical intervention planned. -Recommend no debridement of the sacral and upper left posterior thigh. -Continue local wound care -Continue offloading -Continue medical management -Continue low-fat diet Physician Reiki Practitioner note has been reviewed by physician. Signing provider agrees with the documented findings, assessment, and plan of care. Objective - Vital Signs Vital signs: Vital Signs Temp 97.5 F L 07/11/23 01:49 Pulse 80 07/11/23 08:24 Resp 16 07/11/23 08:24 BP 95/57 07/11/23 07:15 Pulse Ox 95 07/11/23 08:13 FiO2 21 07/05/23 07:54 Intake & Output 07/10/23 07/11/23 07/11/23 18:59 06:59 18:59 Intake Total 500 Output Total 330 200 200 Balance -330 -200 300 Weight 53.5 kg Intake: Oral 500 Output: Urine 330 200 200 Other: Voiding Method Indwelling Catheter # Voids 3 - Labs CBC & Chem 7: 07/11/23 05:43 07/11/23 05:43 Labs: Abnormal Lab Results - Last 24 Hours (Table) 07/10/23 07/10/23 07/10/23 Range/Units 09:24 14:40 14:40 WBC (4.50-10.00) X 10*3/uL RBC (4.10-5.20) X 10*6/uL Hgb (12.0-15.0) g/dL Hct (37.2-46.3) % MCV (80.0-97.0) FL MCHC (32.0-37.0) g/dL RDW (11.5-14.5) % NRBC/100 WBC Diff (0.00-0.01) X 10*3/uL Sodium (135-145) mmol/L Carbon Dioxide 20.6 L (21.6-31.8) mmol/L BUN 53.6 H (9.0-27.0) mg/dL Est GFR (CKD-EPI) 38 L (>=60) BUN/Creatinine Ratio 38.29 H (12.00-20.00) Ratio Calcium 8.2 L (8.7-10.3) mg/dL C-Reactive Protein 4.1 H (<1.0) mg/dL NT-Pro-B Natriuret Pep 4841 H (0-450) pg/mL Procalcitonin 0.81 H (0.02-0.09) ng/mL Urine Appearance (Clear) Urine Protein (Negative) Urine Ketones (Negative) Urine Blood (Negative) Ur Leukocyte Esterase (Negative) Urine RBC (0-5) /hpf Urine WBC (0-5) /hpf Urine WBC Clumps (None) /hpf Amorphous Sediment (None) /hpf Urine Bacteria (None) /hpf Urine Mucus (None) /hpf Urine Yeast (Budding) (None) /hpf 07/10/23 07/11/23 07/11/23 Range/Units 21:33 05:43 05:43 WBC 16.60 H (4.50-10.00) X 10*3/uL RBC 2.58 L (4.10-5.20) X 10*6/uL Hgb 7.7 L (12.0-15.0) g/dL Hct 26.1 L (37.2-46.3) % MCV 101.2 H (80.0-97.0) FL MCHC 29.5 L (32.0-37.0) g/dL RDW 19.0 H (11.5-14.5) % NRBC/100 WBC Diff 0.02 H (0.00-0.01) X 10*3/uL Sodium 134 L (135-145) mmol/L Carbon Dioxide 21.4 L (21.6-31.8) mmol/L BUN 60.2 H (9.0-27.0) mg/dL Est GFR (CKD-EPI) 35 L (>=60) BUN/Creatinine Ratio 40.13 H (12.00-20.00) Ratio Calcium 8.0 L (8.7-10.3) mg/dL C-Reactive Protein (<1.0) mg/dL NT-Pro-B Natriuret Pep (0-450) pg/mL Procalcitonin (0.02-0.09) ng/mL Urine Appearance Cloudy H (Clear) Urine Protein 1+ H (Negative) Urine Ketones Trace H (Negative) Urine Blood Moderate H (Negative) Ur Leukocyte Esterase Large H (Negative) Urine RBC 14 H (0-5) /hpf Urine WBC >182 H (0-5) /hpf Urine WBC Clumps Rare H (None) /hpf Amorphous Sediment Rare H (None) /hpf Urine Bacteria Rare H (None) /hpf Urine Mucus Rare H (None) /hpf Urine Yeast (Budding) Moderate H (None) /hpf
--- NOTE | 2023-07-11 11:03 | P.PN ---
Subjective Patient is seen in follow-up for acute kidney injury. Renal function gradually worsened over the last 2 days. More edematous. Oral intake fair. Daughter present at bedside. Vital signs are stable. General: No acute distress. HEENT: Head exam is unremarkable. LUNGS: No audible rhonchi or wheezes. HEART: Rate and Rhythm are regular. ABDOMEN: Nontender. EXTREMITITES: 1+ edema. Objective - Vital Signs Vital signs: Vital Signs Temp 97.5 F L 07/11/23 01:49 Pulse 80 07/11/23 08:24 Resp 16 07/11/23 10:27 BP 95/57 07/11/23 07:15 Pulse Ox 95 07/11/23 08:13 FiO2 21 07/05/23 07:54 Intake & Output 07/10/23 07/11/23 07/11/23 18:59 06:59 18:59 Intake Total 500 Output Total 330 200 200 Balance -330 -200 300 Weight 53.5 kg Intake: Oral 500 Output: Urine 330 200 200 Other: Voiding Method Indwelling Catheter Indwelling Catheter # Voids 3 - Labs CBC & Chem 7: 07/11/23 05:43 07/11/23 05:43 Labs: Abnormal Lab Results - Last 24 Hours (Table) 07/10/23 07/10/23 07/10/23 Range/Units 09:24 14:40 14:40 WBC (4.50-10.00) X 10*3/uL RBC (4.10-5.20) X 10*6/uL Hgb (12.0-15.0) g/dL Hct (37.2-46.3) % MCV (80.0-97.0) FL MCHC (32.0-37.0) g/dL RDW (11.5-14.5) % NRBC/100 WBC Diff (0.00-0.01) X 10*3/uL Sodium (135-145) mmol/L Carbon Dioxide 20.6 L (21.6-31.8) mmol/L BUN 53.6 H (9.0-27.0) mg/dL Est GFR (CKD-EPI) 38 L (>=60) BUN/Creatinine Ratio 38.29 H (12.00-20.00) Ratio Calcium 8.2 L (8.7-10.3) mg/dL C-Reactive Protein 4.1 H (<1.0) mg/dL NT-Pro-B Natriuret Pep 4841 H (0-450) pg/mL Procalcitonin 0.81 H (0.02-0.09) ng/mL Urine Appearance (Clear) Urine Protein (Negative) Urine Ketones (Negative) Urine Blood (Negative) Ur Leukocyte Esterase (Negative) Urine RBC (0-5) /hpf Urine WBC (0-5) /hpf Urine WBC Clumps (None) /hpf Amorphous Sediment (None) /hpf Urine Bacteria (None) /hpf Urine Mucus (None) /hpf Urine Yeast (Budding) (None) /hpf 07/10/23 07/11/23 07/11/23 Range/Units 21:33 05:43 05:43 WBC 16.60 H (4.50-10.00) X 10*3/uL RBC 2.58 L (4.10-5.20) X 10*6/uL Hgb 7.7 L (12.0-15.0) g/dL Hct 26.1 L (37.2-46.3) % MCV 101.2 H (80.0-97.0) FL MCHC 29.5 L (32.0-37.0) g/dL RDW 19.0 H (11.5-14.5) % NRBC/100 WBC Diff 0.02 H (0.00-0.01) X 10*3/uL Sodium 134 L (135-145) mmol/L Carbon Dioxide 21.4 L (21.6-31.8) mmol/L BUN 60.2 H (9.0-27.0) mg/dL Est GFR (CKD-EPI) 35 L (>=60) BUN/Creatinine Ratio 40.13 H (12.00-20.00) Ratio Calcium 8.0 L (8.7-10.3) mg/dL C-Reactive Protein (<1.0) mg/dL NT-Pro-B Natriuret Pep (0-450) pg/mL Procalcitonin (0.02-0.09) ng/mL Urine Appearance Cloudy H (Clear) Urine Protein 1+ H (Negative) Urine Ketones Trace H (Negative) Urine Blood Moderate H (Negative) Ur Leukocyte Esterase Large H (Negative) Urine RBC 14 H (0-5) /hpf Urine WBC >182 H (0-5) /hpf Urine WBC Clumps Rare H (None) /hpf Amorphous Sediment Rare H (None) /hpf Urine Bacteria Rare H (None) /hpf Urine Mucus Rare H (None) /hpf Urine Yeast (Budding) Moderate H (None) /hpf Assessment and Plan Plan: Assessment: 1. Acute kidney injury secondary to ATN secondary to severe sepsis. Was also on Bactrim prior to admission. No hydronephrosis noted on kidney ultrasound/CT. Creatinine 1.7 on admission - 1.5 today. On lasix. 2. Chronic diastolic CHF with severe pulmonary hypertension, mild to moderate aortic stenosis, moderate aortic regurgitation, severe mitral stenosis. 3. Hyperkalemia secondary to acute kidney injury on Bactrim. Improved. 4. Volume overload. On Lasix. 5. Acute blood loss anemia. Status post blood transfusion this admission. Also received IV iron. Stable. 6. Hyponatremia from poor solute intake. Hypervolemic. 7. Acute COVID infection. 8. Left abdominal rectus sheath hematoma. Surgery following. Plan: Maintain oral Lasix. 20 mg IV Lasix once this afternoon. Encouraged oral intake. Add 1500 cc fluid restriction. Avoid nephrotoxins. Continue to monitor renal function and urine output. Maintain midodrine. Hold for systolic blood pressure greater than 110. A.m. cortisol level not low. DC Caldwell catheter. Monitor bladder scans to make sure no retention.
[2023-07-11 11:24] LABS: Glucose,Whole Blood 103 mg/dL (70-110)
[2023-07-11 11:55] LABS: Basophils # (M) 0 X 10*3/uL (0.00-0.10); Eosinophils # (M) 0 X 10*3/uL (0.04-0.35); Lymphocytes # (M) 0.33 X 10*3/uL (0.90-5.00); Monocytes # (M) 0.17 X 10*3/uL (0.20-1.00); Myelocytes % 3 % (0-0); Neutrophils # (M) 15.44 X 10*3/uL (1.80-7.70); Neutrophils % (M) 93 %; Promyelocytes # (M) 0.17 k/uL (0); Promyelocytes % 1 %
[2023-07-11 16:52] LABS: Glucose,Whole Blood 128 mg/dL (70-110)
[2023-07-11] MEDS: FUROSEMIDE 10 MG/ML 2 ML VIAL IV ONE (17:03)
[2023-07-11] MEDS: WARFARIN 1 MG TAB PO ONE (17:37)
[2023-07-11 21:18] LABS: Glucose,Whole Blood 176 mg/dL (70-110)
[2023-07-12 05:57] LABS: Glucose,Whole Blood 117 mg/dL (70-110)
--- NOTE | 2023-07-12 07:39 | P.PN ---
Subjective Progress Note Date: 07/09/23 Principal diagnosis: Reason for follow-up is sepsis UTI/pneumonia Patient is a 82-year-old female with a past medical history significant for hypertension hyperlipidemia mitral valve prolapse rheumatoid arthritis heart failure patient has been brought into the hospital for evaluation of increasing shortness of breath patient was initially admitted to the ICU concerning for sepsis secondary to possible pneumonia/UTI versus hepatobiliary source. On today's evaluation that is 07/09/2023,the patient remains to be afebrile, patient is on room air not requiring supplemental oxygen and denies any shortness of breath no chest pain or cough.Patient denies having any nausea or vomiting, no abdominal pain, the patient has significant diarrhea requiring fecal management system placement by the nursing staff. Patient white count is 12.80 creatinine is 1.2, stool for C. difficile has been negative Objective - Vital Signs Vital signs: Vital Signs Temp 97.4 F L 07/09/23 07:06 Pulse 64 07/09/23 13:10 Resp 18 07/09/23 07:06 BP 105/54 07/09/23 07:06 Pulse Ox 95 07/09/23 09:29 FiO2 21 07/05/23 07:54 Intake & Output 07/08/23 07/09/23 07/09/23 18:59 06:59 18:59 Output Total 1553 Balance -1553 Weight 53.5 kg 52.5 kg Output: Urine 1350 Stool 203 Other: Voiding Method Indwelling Catheter Indwelling Catheter Indwelling Catheter # Voids 3 # Bowel Movements 2 - Exam GENERAL DESCRIPTION: An elderly female lying in bed in no distress RESPIRATORY SYSTEM: Unlabored breathing , decreased breath sounds at bases HEART: S1 S2 regular rate and rhythm , ABDOMEN: Soft , mild distention but no tenderness EXTREMITIES: No edema feet Patient did have a stage II pressure ulcer to the right gluteal and sacral area with some slough tissue - Labs CBC & Chem 7: 07/11/23 05:43 07/11/23 05:43 Labs: Abnormal Lab Results - Last 24 Hours (Table) 07/08/23 07/09/23 07/09/23 Range/Units 20:06 05:23 05:23 WBC 12.80 H (4.50-10.00) X 10*3/uL RBC 2.58 L (4.10-5.20) X 10*6/uL Hgb 7.9 L (12.0-15.0) g/dL Hct 26.2 L (37.2-46.3) % MCV 101.6 H (80.0-97.0) FL MCHC 30.2 L (32.0-37.0) g/dL RDW 18.7 H (11.5-14.5) % NRBC/100 WBC Diff 0.04 H (0.00-0.01) X 10*3/uL Sodium 134 L (135-145) mmol/L BUN 48.2 H (9.0-27.0) mg/dL Est GFR (CKD-EPI) 46 L (>=60) BUN/Creatinine Ratio 40.17 H (12.00-20.00) Ratio POC Glucose (mg/dL) 277 H (70-110) mg/dL Calcium 7.8 L (8.7-10.3) mg/dL Assessment and Plan (1) UTI (urinary tract infection) Current Visit: Yes Status: Acute Code(s): N39.0 - URINARY TRACT INFECTION, SITE NOT SPECIFIED SNOMED Code(s): 27327809 (2) Elevated liver enzymes Current Visit: Yes Status: Acute Code(s): R74.8 - ABNORMAL LEVELS OF OTHER SERUM ENZYMES SNOMED Code(s): 812720860 (3) Pneumonia Current Visit: Yes Status: Acute Code(s): J18.9 - PNEUMONIA, UNSPECIFIED ORGANISM SNOMED Code(s): 335233980 (4) Leukocytosis Current Visit: No Status: Acute Code(s): D72.829 - ELEVATED WHITE BLOOD CELL COUNT, UNSPECIFIED SNOMED Code(s): 895797295 (5) Diarrhea Current Visit: Yes Status: Acute Code(s): R19.7 - DIARRHEA, UNSPECIFIED SNOMED Code(s): 54534590 Plan: 1patient presented hospital with increasing shortness of breath which is likely multifactorial with a question of venous congestion/pneumonia not entirely excluded, patient also have a positive UA and elevated liver enzymes 2blood cultures currently pending MRSA nasal swab came back negative, vancomyc in discontinued 3-patient CT abdominal pelvis with a rectus sheath hematoma also noticed to have a distended gallbladder HIDA scan has been negative 4patient noticed to have worsening of the white count could be related to oropharyngeal candidiasis and the urine is showing Chaparrita unfortunately not able to use Diflucan because of severe drug interaction between Diflucan and another medication patient has been started on Eraxis which will be continued and we will monitor her white counts closely 5-patient did have a stage II sacral pressure ulcer to the right gluteal and sacral area local care with the Medihoney followed by moist dressing keep the area of the pressure, will benefit from surgical debridement Dictation was produced using [employer] dictation software. please excuse any grammatical, word or spelling errors. Time with Patient: Less than 30
--- NOTE | 2023-07-12 07:40 | P.PN ---
Subjective Progress Note Date: 07/10/23 Principal diagnosis: Reason for follow-up is sepsis UTI/pneumonia Patient is a 82-year-old female with a past medical history significant for hypertension hyperlipidemia mitral valve prolapse rheumatoid arthritis heart failure patient has been brought into the hospital for evaluation of increasing shortness of breath patient was initially admitted to the ICU concerning for sepsis secondary to possible pneumonia/UTI versus hepatobiliary source. On today's evaluation that is 07/10/2023, the patient continues to be afebrile, the patient is on room air and breathing comfortably, the Pt slightly lethargic today and did not answer any question, no vomiting or worsening diarrhea reported by the nursing staff. Patient white count is up to 15.28 creatinine is 1.4, repeat UA is positive, with moderate yeast Objective - Vital Signs Vital signs: Vital Signs Temp 96.4 F L 07/10/23 08:24 Pulse 60 07/10/23 12:18 Resp 19 07/10/23 08:24 BP 95/56 07/10/23 08:24 Pulse Ox 95 07/10/23 08:24 FiO2 21 07/05/23 07:54 Intake & Output 07/09/23 07/10/23 07/10/23 18:59 06:59 18:59 Output Total 300 200 Balance -300 -200 Weight 54.5 kg Output: Urine 300 200 Other: Voiding Method Indwelling Catheter Indwelling Catheter - Exam GENERAL DESCRIPTION: An elderly female lying in bed in no distress RESPIRATORY SYSTEM: Unlabored breathing , decreased breath sounds at bases HEART: S1 S2 regular rate and rhythm , ABDOMEN: Soft , mild distention but no tenderness EXTREMITIES: No edema feet Patient did have a stage II pressure ulcer to the right gluteal and sacral area with some slough tissue - Labs CBC & Chem 7: 07/11/23 05:43 07/11/23 05:43 Labs: Abnormal Lab Results - Last 24 Hours (Table) 07/09/23 07/09/23 07/10/23 Range/Units 16:48 20:25 05:33 WBC 15.28 H (4.50-10.00) X 10*3/uL RBC 2.54 L (4.10-5.20) X 10*6/uL Hgb 7.7 L (12.0-15.0) g/dL Hct 25.0 L (37.2-46.3) % MCV 98.4 H (80.0-97.0) FL MCHC 30.8 L (32.0-37.0) g/dL RDW 18.8 H (11.5-14.5) % NRBC/100 WBC Diff 0.02 H (0.00-0.01) X 10*3/uL POC Glucose (mg/dL) 190 H 200 H (70-110) mg/dL 07/10/23 Range/Units 06:22 WBC (4.50-10.00) X 10*3/uL RBC (4.10-5.20) X 10*6/uL Hgb (12.0-15.0) g/dL Hct (37.2-46.3) % MCV (80.0-97.0) FL MCHC (32.0-37.0) g/dL RDW (11.5-14.5) % NRBC/100 WBC Diff (0.00-0.01) X 10*3/uL POC Glucose (mg/dL) 141 H (70-110) mg/dL Assessment and Plan (1) UTI (urinary tract infection) Current Visit: Yes Status: Acute Code(s): N39.0 - URINARY TRACT INFECTION, SITE NOT SPECIFIED SNOMED Code(s): 68519487 (2) Elevated liver enzymes Current Visit: Yes Status: Acute Code(s): R74.8 - ABNORMAL LEVELS OF OTHER SERUM ENZYMES SNOMED Code(s): 970738766 (3) Pneumonia Current Visit: Yes Status: Acute Code(s): J18.9 - PNEUMONIA, UNSPECIFIED ORGANISM SNOMED Code(s): 708192225 (4) Leukocytosis Current Visit: No Status: Acute Code(s): D72.829 - ELEVATED WHITE BLOOD CELL COUNT, UNSPECIFIED SNOMED Code(s): 950536305 (5) Diarrhea Current Visit: Yes Status: Acute Code(s): R19.7 - DIARRHEA, UNSPECIFIED SNOMED Code(s): 22259890 Plan: 1patient presented hospital with increasing shortness of breath which is likely multifactorial with a question of venous congestion/pneumonia not entirely excluded, patient also have a positive UA and elevated liver enzymes 2blood cultures currently pending MRSA nasal swab came back negative, vancomycin discontinued 3-patient CT abdominal pelvis with a rectus sheath hematoma also noticed to have a distended gallbladder HIDA scan has been negative 4patient noticed to have worsening of the white count could be related to oropharyngeal candidiasis and the urine is showing Chaparrita unfortunately not able to use Diflucan because of severe drug interaction between Diflucan and another medication patient is currently on Eraxis, still have worsening of the white count we will go ahead and repeat a UA and culture check blood cultures and inflammatory markers 5-patient did have a stage II sacral pressure ulcer to the right gluteal and sacral area local care with the Medihoney followed by moist dressing keep the area of the pressure, will benefit from surgical debridement, nursing staff discussed with the surgical team Dictation was produced using [employer] dictation software. please excuse any grammatical, word or spelling errors. Time with Patient: Less than 30
--- NOTE | 2023-07-12 07:42 | P.PN ---
Subjective Progress Note Date: 07/11/23 Principal diagnosis: Reason for follow-up is sepsis UTI/pneumonia Patient is a 82-year-old female with a past medical history significant for hypertension hyperlipidemia mitral valve prolapse rheumatoid arthritis heart failure patient has been brought into the hospital for evaluation of increasing shortness of breath patient was initially admitted to the ICU concerning for sepsis secondary to possible pneumonia/UTI versus hepatobiliary source. On today's evaluation that is 07/11/2023, Patient is afebrile patient is currently on room air and denies having any shortness of breath, the patient denies any chest pain or cough, the patient denies any nausea vomiting did not have any abdominal pain still having diarrhea and did have a fecal management system but no worsening output reported. Patient white count 16.60 creatinine is 1.5 repeat blood urine culture has been pending Objective - Vital Signs Vital signs: Vital Signs Temp 97.5 F L 07/11/23 01:49 Pulse 80 07/11/23 08:24 Resp 16 07/11/23 10:27 BP 95/57 07/11/23 07:15 Pulse Ox 95 07/11/23 08:13 FiO2 21 07/05/23 07:54 Intake & Output 07/10/23 07/11/23 07/11/23 18:59 06:59 18:59 Intake Total 500 Output Total 330 200 200 Balance -330 -200 300 Weight 53.5 kg Intake: Oral 500 Output: Urine 330 200 200 Other: Voiding Method Indwelling Catheter Indwelling Catheter # Voids 3 - Exam GENERAL DESCRIPTION: An elderly female lying in bed in no distress RESPIRATORY SYSTEM: Unlabored breathing , decreased breath sounds at bases HEART: S1 S2 regular rate and rhythm , ABDOMEN: Soft , mild distention but no tenderness EXTREMITIES: No edema feet Patient did have a stage II pressure ulcer to the right gluteal and sacral area with some slough tissue - Labs CBC & Chem 7: 07/11/23 05:43 07/11/23 05:43 Labs: Abnormal Lab Results - Last 24 Hours (Table) 07/10/23 07/10/23 07/10/23 Range/Units 09:24 14:40 14:40 WBC (4.50-10.00) X 10*3/uL RBC (4.10-5.20) X 10*6/uL Hgb (12.0-15.0) g/dL Hct (37.2-46.3) % MCV (80.0-97.0) FL MCHC (32.0-37.0) g/dL RDW (11.5-14.5) % NRBC/100 WBC Diff (0.00-0.01) X 10*3/uL Sodium (135-145) mmol/L Carbon Dioxide 20.6 L (21.6-31.8) mmol/L BUN 53.6 H (9.0-27.0) mg/dL Est GFR (CKD-EPI) 38 L (>=60) BUN/Creatinine Ratio 38.29 H (12.00-20.00) Ratio Calcium 8.2 L (8.7-10.3) mg/dL C-Reactive Protein 4.1 H (<1.0) mg/dL NT-Pro-B Natriuret Pep 4841 H (0-450) pg/mL Procalcitonin 0.81 H (0.02-0.09) ng/mL Urine Appearance (Clear) Urine Protein (Negative) Urine Ketones (Negative) Urine Blood (Negative) Ur Leukocyte Esterase (Negative) Urine RBC (0-5) /hpf Urine WBC (0-5) /hpf Urine WBC Clumps (None) /hpf Amorphous Sediment (None) /hpf Urine Bacteria (None) /hpf Urine Mucus (None) /hpf Urine Yeast (Budding) (None) /hpf 07/10/23 07/11/23 07/11/23 Range/Units 21:33 05:43 05:43 WBC 16.60 H (4.50-10.00) X 10*3/uL RBC 2.58 L (4.10-5.20) X 10*6/uL Hgb 7.7 L (12.0-15.0) g/dL Hct 26.1 L (37.2-46.3) % MCV 101.2 H (80.0-97.0) FL MCHC 29.5 L (32.0-37.0) g/dL RDW 19.0 H (11.5-14.5) % NRBC/100 WBC Diff 0.02 H (0.00-0.01) X 10*3/uL Sodium 134 L (135-145) mmol/L Carbon Dioxide 21.4 L (21.6-31.8) mmol/L BUN 60.2 H (9.0-27.0) mg/dL Est GFR (CKD-EPI) 35 L (>=60) BUN/Creatinine Ratio 40.13 H (12.00-20.00) Ratio Calcium 8.0 L (8.7-10.3) mg/dL C-Reactive Protein (<1.0) mg/dL NT-Pro-B Natriuret Pep (0-450) pg/mL Procalcitonin (0.02-0.09) ng/mL Urine Appearance Cloudy H (Clear) Urine Protein 1+ H (Negative) Urine Ketones Trace H (Negative) Urine Blood Moderate H (Negative) Ur Leukocyte Esterase Large H (Negative) Urine RBC 14 H (0-5) /hpf Urine WBC >182 H (0-5) /hpf Urine WBC Clumps Rare H (None) /hpf Amorphous Sediment Rare H (None) /hpf Urine Bacteria Rare H (None) /hpf Urine Mucus Rare H (None) /hpf Urine Yeast (Budding) Moderate H (None) /hpf Assessment and Plan (1) UTI (urinary tract infection) Current Visit: Yes Status: Acute Code(s): N39.0 - URINARY TRACT INFECTION, SITE NOT SPECIFIED SNOMED Code(s): 54964667 (2) Elevated liver enzymes Current Visit: Yes Status: Acute Code(s): R74.8 - ABNORMAL LEVELS OF OTHER SERUM ENZYMES SNOMED Code(s): 897857065 (3) Pneumonia Current Visit: Yes Status: Acute Code(s): J18.9 - PNEUMONIA, UNSPECIFIED ORGANISM SNOMED Code(s): 687133402 (4) Leukocytosis Current Visit: No Status: Acute Code(s): D72.829 - ELEVATED WHITE BLOOD CELL COUNT, UNSPECIFIED SNOMED Code(s): 533147393 (5) Diarrhea Current Visit: Yes Status: Acute Code(s): R19.7 - DIARRHEA, UNSPECIFIED SNOMED Code(s): 96260526 Plan: 1patient presented hospital with increasing shortness of breath which is likely multifactorial with a question of venous congestion/pneumonia not entirely excluded, patient also have a positive UA and elevated liver enzymes 2blood cultures currently pending MRSA nasal swab came back negative, vancomycin discontinued 3-patient CT abdominal pelvis with a rectus sheath hematoma also noticed to have a distended gallbladder HIDA scan has been negative 4patient noticed to have worsening of the white count could be related to oropharyngeal candidiasis and the urine is showing Chaparrita unfortunately not able to use Diflucan because of severe drug interaction between Diflucan and another medication patient was started on Eraxis however white count continued to be trending up I will go ahead and discontinue her Eraxis discussed in detail with the pharmacist who will be checking with the cardiology if we can Diflucan and see the white count response to it and we will repeat her CBC inflammatory markers with a.m. lab 5-patient did have a stage II sacral pressure ulcer to the right gluteal and sacral area local care with the Medihoney followed by moist dressing keep the area of the pressure, will benefit from surgical debridement, however the family has refused any surgical treatment of her pressure ulcer Dictation was produced using [employer] dictation software. please excuse any grammatical, word or spelling errors. Time with Patient: Greater than 30
[2023-07-12 08:04] LABS: INR 1.1 (<1.2); Prothrombin Time 12.3 sec (10.0-12.5)
--- NOTE | 2023-07-12 09:38 | P.PN ---
Subjective 82-year-old lady with past medical history significant for congestive heart failure, atrial fibrillation with RVR,presented to the ER because of worsening shortness of breath. Patient was only recently discharged on 06/25 after being treated in the hospital for similar complaints.after discharge, patient was all right for 1 day but started noticing that she was getting more short of breath on exertion. Patient denied any chest pain. There was no complain of orthopnea or PND. There was no complain of swelling of feet. There was no complain of fever or chills. Patient oxygen requirements were also increasing so she was transferred back to the ER Initial lab work done in the ER showed WBC 28, hemoglobin 10.5, platelet count 332, INR 3.7, sodium 138, potassium 6.2, BUN 79, creatinine1.71, AST 378, ALT 350, troponin 0.247 EKG done in the ER showed heart rate of 81 , no ST segment elevation or depression seen, no T-wave inversions seen. Chest x-ray done in the ER showed cardiomegaly and moderate vascular congestion Patient admitted to internal medicine service 06/29. Patient seen and examined. Blood work done this morning showed WBC 19.8, hemoglobin 8.6, sodium 135, potassium 4.4, BUN 70, creatinine 1.21. Ox requirements have improved, currently on 6 L of oxygen. Patient is much more talkative compared to yesterday. Answering questions. 07/01/2023 Patient examined today in follow up. Remains on 6L of oxygen, more awake and alert. She continues on clear liquid diet which will be upgraded pending speech therapy recommendations as there is concern for aspiration. Indwelling catheter remains in place for urinary retention with concern for acute UTI which family feels was caused from the IDC placed prior to her previous discharge. She has been started on cefepime and vancomycin with concern for sepsis. White blood c ell count has normalized to 5.7. Hemoglobin 7.1. INR 6.4 and warfarin remains on hold. Renal function stable. LFTs remain significantly elevated. 07/02/2023 Patient is evaluated today on the medical floor. Weaned down to 4L of oxygen. LFTs remain elevated. Gallbladder ultrasound completed revealing hepatic steatosis with ascites adjacent to the liver suspected. Echogenic materinal within the gallbladder lumen with masslike appearance. Borderline wall thickening. Hemoglobin 6.9 today. Patient will receive 1 unit of blood. Jevon PCR positive. 07/03/2023 Patient continues to report feeling fatigued. Was able to be weaned down to 2L of oxygen. Does have visible bruising over the left abdomen. Had abdominal pelvis CT done today which reveals a 6.8 x 2.6 x 12 cm left abdominal rectus hematoma. INR has improved down to 1.2 and this will likely only need conservative management however general surgery was consulted. There is also mention of distended gallbladder although no mention of an acute cholecystitis, dilated ducted. Patient has consistently elevated LFTs this could be due to infe ction however general surgery recommending HIDA scan. Left ankle xray was completed due to the bruising and mild soft tissue swelling patient states this was injured end of March when she fell. There is no acute fracture noted and patient would benefit from icing and elevation as well as light compression. 07/04/2023 Patient is evaluated on the medical floor. Continues to feel fatigued. Has not been out of bed much and has fair appetite. Family has been coming to assist with meal time feeding. General surgery following for the rectus sheath hematoma and INR has normalized and patient is being monitored off coumadin at this time. HIDA scan completed for further evaluation of the gallbladder which was normal. Recommendations for cholecystectomy however after cardiology re-evaluation felt patient was high risk for surgery. Patient has significant valvular heart disease and there is concern for possible interstitial lung disease she will be taken off the amiodarone at this time. Hemoglobin is stable at 8.7. 07/05/2023 Patient is evaluated today sitting up in the chair with at the bedside. Patient has been more awake and alert and has increased appetite. Family has been coming in to help her at every meal. Hemoglobin stable at 8.6. Patient is continued on IV cefepime with ID following closely. Not a surgical candidate. Abdominal bruising improving. IDC remains and family has concerns and would like it removed before discharge to rehab. Patient remains off coumadin at this time with general surgery recommendations to continue holding. INR 1.0 today. 07/06/2023 Patient is seen and evaluated in follow-up this morning currently sitting up in bed asleep although arousable. Patient reports feeling tired and denies any significant pain. General surgery following with no plans of surgical intervention given significant comorbidities and not a surgical candidate. Patient is continued on IV antibiotics with infectious disease following. Nephrology following as well and patient is maintained on fluid restrictions. Oral intake remains poor to fair and is being encouraged to attempt to eat small frequent meals. Patient is currently maintaining oxygen saturations above 90% on room air and pulmonary is following closely. Awaiting PT/OT therapy to reevaluate patient will most definitely need rehab on discharge. 07/07/23 : Patient seen and evaluated at bedside, vitals reviewed, blood work reviewed. CBC showed hemoglobin of 8.8, WBC 12, platelet count 189. Serum chemistry showed sodium 137 potassium 4.3 BUN 52 creatinine 1.2 magnesium of 1.6, patient does complain of nausea, continue to hold Coumadin till hemoglobin stabilized 07/08/23 : Patient seen and evaluated bedside, patient started back on Coumadin hemoglobin 8.8 remained stable, serum chemistry reviewed creatinine 1.09, sodium 136 potassium 3.9 calcium 8.1. Liver profile shows trending down of AST and ALT 07/09/23: Seen and evaluated at bedside, blood work reviewed, WBC 12.8 hemoglobin 7.9, serum chemistry reviewed sodium 134 creatinine 1.2, INR 1.1. Continue to remain on IV antibiotics, patient does have diarrhea and does have fecal management system in place, C. difficile was negative continue patient on Lomotil along with cholestyramine I am resuming the care of the patient today 07/10/2023 Patient awake and alert, feels very weak and tired and lethargic She follows commands and answers questions appropriately She has mild abdominal distention, she has ongoing diarrhea, C. difficile has been negative and patient placed on antimotility medication like Lomotil Also patient has mild left ankle swelling and bruise, patient denies falling, x- rays requested ( had negative xray about one week ago) Blood pressure chronically borderline, afebrile and rest of vital stable, Labs reviewed, INR 1.1, has leukocytosis of 15.2, hemoglobin slightly low at 7.9 down to 7.7. Creatinine pending pt currentlyon Eraxis, Coumadin and cholestyramine and Lasix 40 mg discussed with the bedside daughter at bedside and she verbalized understanding and acceptance Discussed with staff 07/11/2023 Patient awake alert, she is slightly drowsy, she slept more than 3 hours this morning, daughter at bedside and patient she is still sleepy although she is improving compared to yesterday Patient herself feels fine. Daughter discussed with mother to discuss continue Zoloft for her sleepiness but patient's wants to keep it stating that it helped her become less anxious. Because the patient is more and oriented today. She is able to eat this morning. Yesterday she has some abdominal distention, KUB reviewed by myself showing gastric distention which is looks resolved now. Abdomen is not distended now. No bowel movement of diarrhea. She has mild bilateral leg edema and I believe this is given today. Blood pressure is at baseline, low normal with systolic 90-100. Resume Coumadin and follow-up INR. Patient remains on the Eraxis Repeat urine analysis still abnormal, urine culture is pending. Plan to discontinue Caldwell catheter and bladder check 07/12/2023 pt is still not eating much despite encouragement , last week she passed swallow evaluation because she was losing muscle back in her throat, she was placed on chopped diet however still her appetite is poor. The patient is on the case and she is prescribed Ensure and other encouragement. However patient denies nausea. Discussed with staff we are going to do call for nutrition consult since she has prolonged malnutrition she might benefit from parenteral or other form of enteral feeding like via NG tube. Otherwise we expect patient to continue to deteriorate. Patient has this gallbladder mass, surgery team on the case and they patient poor surgical candidate. Family also declines surgical intervention like de bridement of her sacral wound. Her abdomen is soft and there is no RUQ tenderness or pain. She remains on Eraxis. Urine culture is repeated. Still pending. Caldwell catheter was discontinued yesterday and she was retaining more than 300 last night and she had to be straight cath. We contacted [facility] and if still continued to do rate then we may consider replacing the Caldwell catheter in again. Fecal management system is leaking and there is no obvious diarrhea currently there probably can be discontinued and monitored. She remains on Coumadin. INR still subtherapeutic. Patient still on leukocy tosis and she is covered with Eraxis but there is no fever Procalcitonin is checked and is mildly coming down 1.1 down from 0.8. For more than a week indicating persistent abnormality Discussed with the bedside nurse and case management director. Review of systems CONSTITUTIONAL: No fever, no malaise, no fatigue. HEENT: No recent visual problems or hearing problems. Denied any sore throat. NEUROLOGICAL: No headaches, no weakness, no numbness. HEMATOLOGICAL: Denies any bleeding or petechiae. GENITOURINARY: Denies any burning micturition, frequency, or urgency. MUSCULOSKELETAL/RHEUMATOLOGICAL: Denies any joint pain, swelling, or any muscle pain. ENDOCRINE: Denies any polyuria or polydipsia. Active Medications Generic Name Dose Route Start Last Admin Trade Name Freq PRN Reason Stop Dose Admin Acetaminophen 650 mg 07/01/23 20:00 07/11/23 13:11 Acetaminophen Tab 325 Mg Tab PO 650 mg Q6HR PRN Administration Fever and/ or Mild Pain Albuterol/Ipratropium 3 ml 06/29/23 08:00 07/12/23 09:10 Ipratropium-Albuterol 3 Ml Neb INHALATION 3 ml RT-QID PAUL Administration Albuterol/Ipratropium 3 ml 06/29/23 08:00 Ipratropium-Albuterol 3 Ml Neb INHALATION RT-Q2H PRN Shortness Of Breath Or Wheezing Alprazolam 0.25 mg 07/07/23 00:19 07/11/23 21:22 Alprazolam 0.25 Mg Tab PO 0.25 mg Q8HR PRN Administration Anxiety Calcium Carbonate/Glycine 1,000 mg 07/04/23 21:01 07/04/23 21:18 Calcium Carbonate 500 Mg Chewable PO 1,000 mg TID PRN Administration Heartburn Cholestyramine Resin 4 gm 07/08/23 18:00 07/11/23 17:37 Cholestyramine (With Sugar) 4 Gm Packet PO 4 gm BID@1000,1800 PAUL Administration Dronedarone 400 mg 07/05/23 09:00 07/12/23 06:14 Dronedarone 400 Mg Tab PO 400 mg AC-BID PAUL Administration Furosemide 40 mg 07/02/23 09:00 07/11/23 07:51 Furosemide 40 Mg Tab PO 40 mg DAILY PAUL Administration Insulin Aspart 0 unit 06/29/23 21:00 07/12/23 06:19 Insulin Aspart (Novolog) 100 Unit/Ml Vial SQ Not Given ACHS [facility] Protocol Loperamide HCl 2 mg 07/09/23 13:00 07/11/23 21:40 Loperamide 2 Mg Cap PO Not Given QID [facility] Metoprolol Tartrate 25 mg 07/05/23 09:00 07/11/23 21:40 Metoprolol Tartrate 25 Mg Tab PO Not Given BID [facility] Midodrine 5 mg 07/05/23 12:30 07/12/23 06:19 Midodrine 5 Mg Tab PO Not Given AC-TID [facility] Miscellaneous Information 1 each 07/06/23 12:57 Potassium Replacement Protocol 1 Each Misc MISCELLANE DAILY PRN Per Protocol Protocol Miscellaneous Information 1 each 07/08/23 10:12 Warfarin Per Pharmacy MISCELLANE DIRECTED PRN Per Protocol Protocol Naloxone HCl 0.2 mg 06/29/23 01:11 Naloxone 0.4 Mg/Ml 1 Ml Vial IV Q2M PRN Opioid Reversal Nystatin 500,000 unit 06/29/23 22:00 07/11/23 21:38 Nystatin 100,000 Unit/Ml Susp 500,000 Unit/5 Ml Cup PO 500,000 unit QID [facility] Administration Protocol Sertraline HCl 25 mg 07/09/23 15:00 07/10/23 14:08 Sertraline 25 Mg Tab PO Not Given DAILY [facility] Tamsulosin HCl 0.4 mg 07/12/23 09:15 Tamsulosin 0.4 Mg Cap.Er.24h PO PC-BRKFST [facility] Objective - Vital Signs Vital signs: Vital Signs Temp 97.6 F 07/12/23 07:32 Pulse 74 07/12/23 09:21 Resp 17 07/12/23 07:32 BP 135/62 07/12/23 07:32 Pulse Ox 97 07/12/23 07:32 FiO2 21 07/05/23 07:54 Intake & Output 07/11/23 07/12/23 07/12/23 18:59 06:59 18:59 Intake Total 1400 200 Output Total 510 400 Balance 890 -200 Weight 53.5 kg 60 kg Intake: Oral 1400 200 Output: Urine 510 400 Uretheral (Caldwell) 110 400 Other: Voiding Method Indwelling Catheter # Voids 3 - Exam -GENERAL: The patient is alert and oriented x3, not in any acute distress. Well developed, well nourished. General weakness HEENT: Pupils are round and equally reacting to light. EOMI. No scleral icterus. No conjunctival pallor. Normocephalic, atraumatic. No pharyngeal erythema. No thyromegaly. CARDIOVASCULAR: S1 and S2 present. No murmurs, rubs, or gallops. PULMONARY: Chest is clear to auscultation, no wheezing , no crackles. -ABDOMEN: Soft, nontender, mildly distended, normoactive bowel sounds. No palpable organomegaly. MUSCULOSKELETAL: No joint swelling or deformity. -EXTREMITIES: No cyanosis, clubbing, or pedal edema. Left ankle swelling with mild bruising on the medial side NEUROLOGICAL: Gross neurological examination did not reveal any focal deficits. SKIN: No rashes. no petechiae. - Labs CBC & Chem 7: 07/11/23 05:43 07/11/23 05:43 Labs: Abnormal Lab Results - Last 24 Hours (Table) 07/11/23 07/11/23 07/11/23 Range/Units 05:43 16:50 21:17 WBC 16.60 H (4.50-10.00) X 10*3/uL RBC 2.58 L (4.10-5.20) X 10*6/uL Hgb 7.7 L (12.0-15.0) g/dL Hct 26.1 L (37.2-46.3) % MCV 101.2 H (80.0-97.0) FL MCHC 29.5 L (32.0-37.0) g/dL RDW 19.0 H (11.5-14.5) % Neutrophils # (Manual) 15.44 H (1.80-7.70) X 10*3/uL Lymphocytes # (Manual) 0.33 L (0.90-5.00) X 10*3/uL Monocytes # (Manual) 0.17 L (0.20-1.00) X 10*3/uL Eosinophils # (Manual) 0 L (0.04-0.35) X 10*3/uL Promyelocytes # (Man) 0.17 H (0) k/uL NRBC/100 WBC Diff 0.02 H (0.00-0.01) X 10*3/uL POC Glucose (mg/dL) 128 H 176 H (70-110) mg/dL 07/12/23 Range/Units 05:56 WBC (4.50-10.00) X 10*3/uL RBC (4.10-5.20) X 10*6/uL Hgb (12.0-15.0) g/dL Hct (37.2-46.3) % MCV (80.0-97.0) FL MCHC (32.0-37.0) g/dL RDW (11.5-14.5) % Neutrophils # (Manual) (1.80-7.70) X 10*3/uL Lymphocytes # (Manual) (0.90-5.00) X 10*3/uL Monocytes # (Manual) (0.20-1.00) X 10*3/uL Eosinophils # (Manual) (0.04-0.35) X 10*3/uL Promyelocytes # (Man) (0) k/uL NRBC/100 WBC Diff (0.00-0.01) X 10*3/uL POC Glucose (mg/dL) 117 H (70-110) mg/dL Microbiology - Last 24 Hours (Table) 07/10/23 14:40 Blood Culture - Preliminary Blood Assessment and Plan Assessment: Acute cholecystitis, not surgical candidate continue with conservative management. Patient currently able to eat with no RUQ tenderness. Acute UTI with sepsis POA. Sacral pressure ulcer requiring debridement or surgery team,. Patient is a poor surgical candidate Acute hypoxic respiratory failure due to asthma exacerbation; requiring 6L and has weaned to room air.. Improved Non-ST elevation AL. Improved Left abdominal rectus sheath hematoma. Stable Acute on chronic diastolic heart failure; Moderate to severe mitral calcification, moderate to severe mitral stenosis, mild aortic regurgitation and stenosis, Pulmonary hypertension WHO class II. Stable Anemia iron deficient with acute blood loss anemia from the left rectus sheath hematoma Acute transaminitis with concern for acute cholecystitis, HIDA scan normal. Not a surgical candidate at this time. Acute kidney injury Recent hospitalization for COVID in May, PCR still positive; not in active infection. Warfarin toxicity resolved. Paroxysmal atrial fibrillation currently maintaining normal sinus rhyhtm. History of coronary artery disease with previous PCI/stent x3 History of hyperlipidemia History of hypertension Rheumatoid arthritis History of hypothyroidism Mild protein calorie malnutrition Stage 2 pressure injury on right and left buttock present on admission Sacral decubitus ulcer, unstageable present on admission. Lifelong non-smoker Left ankle swelling, x-rays negative. Secondary to trauma on admission. Stable and improving Abdominal distention, secondary to gastric distention improved Plan: Continue with Eraxis for fungal UTI. Follow-up repeat urine culture Discontinue Caldwell catheter and follow-up bladder scan if persistent retention may consider replacement Caldwell catheter in Patient is still with poor appetite. Will ask for nutritional follow-up to assess caloric intake, Continue with Coumadin, monitor INR nephrology team on the case Surgery team planning to continue monitoring and possible debridement of sacral pressure ulcer. However patient family declines as patient is poor surgical candidate Pulmonary team on the case, ID team on the case Cardiology team signed off Labs and medication were reviewed.. Continue same treatment. Continue with symptomatic treatment. Resume home medication. Monitor labs and vitals. DVT and GI prophylaxis. Further recommendations as per clinical course of the patient DVT prophylaxis: Coumadin GI Prophylaxis: Pepcid PT/OT: Pen subacute rehab Prognosis is guarded
[2023-07-12 10:19] LABS: HCT 27.4 % (37.2-46.3); HGB 8.3 g/dL (12.0-15.0); MCH 30.6 pg (27.0-32.0); MCHC 30.3 g/dL (32.0-37.0); MCV 101.1 FL (80.0-97.0); NRBC Per 100 WBC 0.04 X 10*3/uL (0.00-0.01); Platelet Count 239 X 10*3/uL (140-440); RBC 2.71 X 10*6/uL (4.10-5.20); RDW 19.4 % (11.5-14.5); WBC 14.09 X 10*3/uL (4.50-10.00)
[2023-07-12] MEDS: TAMSULOSIN 0.4 MG CAP.ER.24H PO SCH (10:30)
[2023-07-12 10:31] LABS: ALT 102 U/L (8-44); AST 53 U/L (13-35); Albumin/Globulin Ratio 0.69 Ratio (1.60-3.17); Alkaline Phosphatase 164 U/L (41-126); BUN/Creat Ratio 35.74 Ratio (12.00-20.00); Blood Urea Nitrogen 67.9 mg/dL (9.0-27.0); Calcium 8.4 mg/dL (8.7-10.3); Carbon Dioxide 20.3 mmol/L (21.6-31.8); Chloride 102 mmol/L (96-109); Globulin 2.9 g/dL (1.6-3.3); Glucose 94 mg/dL (70-110); Magnesium 1.9 mg/dL (1.5-2.4); Potassium 4.7 mmol/L (3.5-5.5); Sodium 131 mmol/L (135-145); Total Bilirubin <0.2 mg/dL (0.3-1.2); Total Protein 4.9 g/dL (6.2-8.2)
[2023-07-12 10:54] LABS: Basophils # (M) 0 X 10*3/uL (0.00-0.10); Eosinophils # (M) 0 X 10*3/uL (0.04-0.35); Lymphocytes # (M) 1.41 X 10*3/uL (0.90-5.00); Monocytes # (M) 0.14 X 10*3/uL (0.20-1.00); Myelocytes % 3 % (0-0); Neutrophils # (M) 11.98 X 10*3/uL (1.80-7.70); Neutrophils % (M) 85 %; Promyelocytes # (M) 0.14 k/uL (0); Promyelocytes % 1 %; RBC Morphology Normal (Normal)
--- NOTE | 2023-07-12 11:28 | P.PN ---
Subjective Patient is seen in follow-up for acute kidney injury. Renal function worsened with diuresis. Currently on oral Lasix. Received a dose of IV Lasix yesterday. Oral intake fair. Vital signs are stable. General: No acute distress. HEENT: Head exam is unremarkable. LUNGS: No audible rhonchi or wheezes. HEART: Rate and Rhythm are regular. ABDOMEN: Nontender. EXTREMITITES: 1+ edema. Objective - Vital Signs Vital signs: Vital Signs Temp 97.6 F 07/12/23 07:32 Pulse 74 07/12/23 09:21 Resp 16 07/12/23 08:30 BP 135/62 07/12/23 07:32 Pulse Ox 97 07/12/23 07:32 FiO2 21 07/05/23 07:54 Intake & Output 07/11/23 07/12/23 07/12/23 18:59 06:59 18:59 Intake Total 1400 200 Output Total 510 400 Balance 890 -200 Weight 53.5 kg 60 kg Intake: Oral 1400 200 Output: Urine 510 400 Uretheral (Caldwell) 110 400 Other: Voiding Method Indwelling Catheter Indwelling Catheter # Voids 3 - Labs CBC & Chem 7: 07/12/23 06:49 07/12/23 06:49 Labs: Abnormal Lab Results - Last 24 Hours (Table) 07/11/23 07/11/23 07/11/23 Range/Units 05:43 16:50 21:17 WBC (4.50-10.00) X 10*3/uL RBC (4.10-5.20) X 10*6/uL Hgb (12.0-15.0) g/dL Hct (37.2-46.3) % MCV (80.0-97.0) FL MCHC (32.0-37.0) g/dL RDW (11.5-14.5) % Neutrophils # (Manual) 15.44 H (1.80-7.70) X 10*3/uL Lymphocytes # (Manual) 0.33 L (0.90-5.00) X 10*3/uL Monocytes # (Manual) 0.17 L (0.20-1.00) X 10*3/uL Eosinophils # (Manual) 0 L (0.04-0.35) X 10*3/uL Promyelocytes # (Man) 0.17 H (0) k/uL NRBC/100 WBC Diff (0.00-0.01) X 10*3/uL Sodium (135-145) mmol/L Carbon Dioxide (21.6-31.8) mmol/L BUN (9.0-27.0) mg/dL Creatinine (0.6-1.5) mg/dL Est GFR (CKD-EPI) (>=60) BUN/Creatinine Ratio (12.00-20.00) Ratio POC Glucose (mg/dL) 128 H 176 H (70-110) mg/dL Calcium (8.7-10.3) mg/dL Total Bilirubin (0.3-1.2) mg/dL AST (13-35) U/L ALT (8-44) U/L Alkaline Phosphatase (41-126) U/L C-Reactive Protein (0.00-0.80) mg/dL Total Protein (6.2-8.2) g/dL Albumin (3.8-4.9) g/dL Albumin/Globulin Ratio (1.60-3.17) Ratio Procalcitonin (0.02-0.09) ng/mL 07/12/23 07/12/23 07/12/23 Range/Units 05:56 06:49 06:49 WBC (4.50-10.00) X 10*3/uL RBC (4.10-5.20) X 10*6/uL Hgb (12.0-15.0) g/dL Hct (37.2-46.3) % MCV (80.0-97.0) FL MCHC (32.0-37.0) g/dL RDW (11.5-14.5) % Neutrophils # (Manual) (1.80-7.70) X 10*3/uL Lymphocytes # (Manual) (0.90-5.00) X 10*3/uL Monocytes # (Manual) (0.20-1.00) X 10*3/uL Eosinophils # (Manual) (0.04-0.35) X 10*3/uL Promyelocytes # (Man) (0) k/uL NRBC/100 WBC Diff (0.00-0.01) X 10*3/uL Sodium 131 L (135-145) mmol/L Carbon Dioxide 20.3 L (21.6-31.8) mmol/L BUN 67.9 H (9.0-27.0) mg/dL Creatinine 1.9 H (0.6-1.5) mg/dL Est GFR (CKD-EPI) 26 L (>=60) BUN/Creatinine Ratio 35.74 H (12.00-20.00) Ratio POC Glucose (mg/dL) 117 H (70-110) mg/dL Calcium 8.4 L (8.7-10.3) mg/dL Total Bilirubin <0.2 L (0.3-1.2) mg/dL AST 53 H (13-35) U/L ALT 102 H (8-44) U/L Alkaline Phosphatase 164 H (41-126) U/L C-Reactive Protein 6.50 H (0.00-0.80) mg/dL Total Protein 4.9 L (6.2-8.2) g/dL Albumin 2.0 L (3.8-4.9) g/dL Albumin/Globulin Ratio 0.69 L (1.60-3.17) Ratio Procalcitonin 0.75 H (0.02-0.09) ng/mL 07/12/23 Range/Units 06:49 WBC 14.09 H (4.50-10.00) X 10*3/uL RBC 2.71 L (4.10-5.20) X 10*6/uL Hgb 8.3 L (12.0-15.0) g/dL Hct 27.4 L (37.2-46.3) % MCV 101.1 H (80.0-97.0) FL MCHC 30.3 L (32.0-37.0) g/dL RDW 19.4 H (11.5-14.5) % Neutrophils # (Manual) (1.80-7.70) X 10*3/uL Lymphocytes # (Manual) (0.90-5.00) X 10*3/uL Monocytes # (Manual) 0.14 L (0.20-1.00) X 10*3/uL Eosinophils # (Manual) 0 L (0.04-0.35) X 10*3/uL Promyelocytes # (Man) (0) k/uL NRBC/100 WBC Diff 0.04 H (0.00-0.01) X 10*3/uL Sodium (135-145) mmol/L Carbon Dioxide (21.6-31.8) mmol/L BUN (9.0-27.0) mg/dL Creatinine (0.6-1.5) mg/dL Est GFR (CKD-EPI) (>=60) BUN/Creatinine Ratio (12.00-20.00) Ratio POC Glucose (mg/dL) (70-110) mg/dL Calcium (8.7-10.3) mg/dL Total Bilirubin (0.3-1.2) mg/dL AST (13-35) U/L ALT (8-44) U/L Alkaline Phosphatase (41-126) U/L C-Reactive Protein (0.00-0.80) mg/dL Total Protein (6.2-8.2) g/dL Albumin (3.8-4.9) g/dL Albumin/Globulin Ratio (1.60-3.17) Ratio Procalcitonin (0.02-0.09) ng/mL Microbiology - Last 24 Hours (Table) 07/10/23 14:40 Blood Culture - Preliminary Blood Assessment and Plan Plan: Assessment: 1. Acute kidney injury secondary to ATN secondary to severe sepsis. Was also on Bactrim prior to admission. No hydronephrosis noted on kidney ultrasound/CT. Renal function worsening with diuresis. 2. Chronic diastolic CHF with severe pulmonary hypertension, mild to moderate aortic stenosis, moderate aortic regurgitation, severe mitral stenosis. 3. Hyperkalemia secondary to acute kidney injury on Bactrim. Improved. 4. Volume overload. On Lasix. 5. Acute blood loss anemia. Status post blood transfusion this admission. Also received IV iron. Stable. 6. Hyponatremia from poor solute intake. Hypervolemic. 7. Acute COVID infection. 8. Left abdominal rectus sheath hematoma. Surgery following. 9. Hypervolemic hyponatremia. 10. Protein calorie malnutrition with albumin level of 2.0. Plan: Maintain oral Lasix. Encouraged oral intake. Maintain 1500 cc fluid restriction. Avoid nephrotoxins. Continue to monitor renal function and urine output. Maintain midodrine. Hold for systolic blood pressure greater than 110. A.m. cortisol level not low. Caldwell catheter removed. Check bladder scan to rule out urinary retention. 25 g IV albumin once today. Repeat labs in the morning.
[2023-07-12 11:46] LABS: Glucose,Whole Blood 353 mg/dL (70-110)
[2023-07-12] MEDS: ALBUMIN HUMAN 25% 50 ML in EMPTY BAG 1 BAG IVPB SCH (13:05)
[2023-07-12 13:19] LABS: Glucose,Whole Blood 233 mg/dL (70-110)
[2023-07-12 14:37] LABS: T4, Free (Free Thyroxine) 0.18 ng/dL (0.80-1.80)
--- NOTE | 2023-07-12 15:04 | P.PN ---
Subjective Progress Note Date: 07/12/23 CHIEF COMPLAINT: Shortness of breath HISTORY OF PRESENT ILLNESS: Surgical service following in regards to patient's acute cholecystitis and Left rectus sheath hematoma. Patient reports no abdominal pain. She tolerated diet. Afebrile. WBC 16 down to 14 Hgb 8.3 INR 1.1 total bilirubin less than 0.2 LFTs trending down. Alk phos slightly up at 164 PHYSICAL EXAM: VITAL SIGNS: Reviewed. GENERAL: Well-developed in no acute distress. ABDOMEN: Soft. Nondistended. No right upper quadrant tenderness. Mild tenderness along the left lower abdomen. Decreased ecchymosis NEUROLOGIC: Alert and oriented. Cranial nerves II through XII grossly intact. Skin: Sacral decubitus ulcer with small area of darkened tissue. No drainage. Posterior left upper thigh at buttocks crease ulceration with slough ASSESSMENT: 1. Acute cholecystitis. Echogenic material within the gallbladder lumen with masslike appearance and borderline gallbladder wall thickening noted on ultrasound 2. Elevated LFTs 3. Left abdominal rectus sheath hematoma with Coumadin toxicity present on admission 4. Acute blood loss anemia due to rectus sheath hematoma requiring blood transfusion 5. Sacral decubitus ulcer and ulceration posterior left upper thigh PLAN: -Patient is a poor surgical candidate. No surgical intervention planned. -Recommend no debridement of the sacral and upper left posterior thigh. -Continue local wound care -Continue offloading -Continue medical management -Continue low-fat diet Physician Records And Tape Recordings Engineer note has been reviewed by physician. Signing provider agrees with the documented findings, assessment, and plan of care. Objective - Vital Signs Vital signs: Vital Signs Temp 97.5 F L 07/12/23 13:14 Pulse 67 07/12/23 13:14 Resp 20 07/12/23 13:14 BP 120/58 07/12/23 13:14 Pulse Ox 97 07/12/23 07:32 FiO2 21 07/05/23 07:54 Intake & Output 07/11/23 07/12/23 07/12/23 18:59 06:59 18:59 Intake Total 1400 200 200 Output Total 510 400 Balance 890 -200 200 Weight 53.5 kg 60 kg Intake: Oral 1400 200 200 Output: Urine 510 400 Uretheral (Caldwell) 110 400 Other: Voiding Method Indwelling Catheter Indwelling Catheter # Voids 3 - Labs CBC & Chem 7: 07/12/23 06:49 07/12/23 06:49 Labs: Abnormal Lab Results - Last 24 Hours (Table) 07/11/23 07/11/23 07/11/23 Range/Units 05:43 16:50 21:17 WBC (4.50-10.00) X 10*3/uL RBC (4.10-5.20) X 10*6/uL Hgb (12.0-15.0) g/dL Hct (37.2-46.3) % MCV (80.0-97.0) FL MCHC (32.0-37.0) g/dL RDW (11.5-14.5) % Neutrophils # (Manual) 15.44 H (1.80-7.70) X 10*3/uL Monocytes # (Manual) (0.20-1.00) X 10*3/uL Eosinophils # (Manual) (0.04-0.35) X 10*3/uL Promyelocytes # (Man) 0.17 H (0) k/uL NRBC/100 WBC Diff (0.00-0.01) X 10*3/uL Sodium (135-145) mmol/L Carbon Dioxide (21.6-31.8) mmol/L BUN (9.0-27.0) mg/dL Creatinine (0.6-1.5) mg/dL Est GFR (CKD-EPI) (>=60) BUN/Creatinine Ratio (12.00-20.00) Ratio POC Glucose (mg/dL) 128 H 176 H (70-110) mg/dL Calcium (8.7-10.3) mg/dL Total Bilirubin (0.3-1.2) mg/dL AST (13-35) U/L ALT (8-44) U/L Alkaline Phosphatase (41-126) U/L C-Reactive Protein (0.00-0.80) mg/dL Total Protein (6.2-8.2) g/dL Albumin (3.8-4.9) g/dL Albumin/Globulin Ratio (1.60-3.17) Ratio Procalcitonin (0.02-0.09) ng/mL TSH (0.350-5.500) UIU/ML Free T4 (0.80-1.80) ng/dL 07/12/23 07/12/23 07/12/23 Range/Units 05:56 06:49 06:49 WBC (4.50-10.00) X 10*3/uL RBC (4.10-5.20) X 10*6/uL Hgb (12.0-15.0) g/dL Hct (37.2-46.3) % MCV (80.0-97.0) FL MCHC (32.0-37.0) g/dL RDW (11.5-14.5) % Neutrophils # (Manual) (1.80-7.70) X 10*3/uL Monocytes # (Manual) (0.20-1.00) X 10*3/uL Eosinophils # (Manual) (0.04-0.35) X 10*3/uL Promyelocytes # (Man) (0) k/uL NRBC/100 WBC Diff (0.00-0.01) X 10*3/uL Sodium 131 L (135-145) mmol/L Carbon Dioxide 20.3 L (21.6-31.8) mmol/L BUN 67.9 H (9.0-27.0) mg/dL Creatinine 1.9 H (0.6-1.5) mg/dL Est GFR (CKD-EPI) 26 L (>=60) BUN/Creatinine Ratio 35.74 H (12.00-20.00) Ratio POC Glucose (mg/dL) 117 H (70-110) mg/dL Calcium 8.4 L (8.7-10.3) mg/dL Total Bilirubin <0.2 L (0.3-1.2) mg/dL AST 53 H (13-35) U/L ALT 102 H (8-44) U/L Alkaline Phosphatase 164 H (41-126) U/L C-Reactive Protein 6.50 H (0.00-0.80) mg/dL Total Protein 4.9 L (6.2-8.2) g/dL Albumin 2.0 L (3.8-4.9) g/dL Albumin/Globulin Ratio 0.69 L (1.60-3.17) Ratio Procalcitonin 0.75 H (0.02-0.09) ng/mL TSH (0.350-5.500) UIU/ML Free T4 (0.80-1.80) ng/dL 07/12/23 07/12/23 07/12/23 Range/Units 06:49 06:49 11:45 WBC 14.09 H (4.50-10.00) X 10*3/uL RBC 2.71 L (4.10-5.20) X 10*6/uL Hgb 8.3 L (12.0-15.0) g/dL Hct 27.4 L (37.2-46.3) % MCV 101.1 H (80.0-97.0) FL MCHC 30.3 L (32.0-37.0) g/dL RDW 19.4 H (11.5-14.5) % Neutrophils # (Manual) (1.80-7.70) X 10*3/uL Monocytes # (Manual) 0.14 L (0.20-1.00) X 10*3/uL Eosinophils # (Manual) 0 L (0.04-0.35) X 10*3/uL Promyelocytes # (Man) (0) k/uL NRBC/100 WBC Diff 0.04 H (0.00-0.01) X 10*3/uL Sodium (135-145) mmol/L Carbon Dioxide (21.6-31.8) mmol/L BUN (9.0-27.0) mg/dL Creatinine (0.6-1.5) mg/dL Est GFR (CKD-EPI) (>=60) BUN/Creatinine Ratio (12.00-20.00) Ratio POC Glucose (mg/dL) 353 H (70-110) mg/dL Calcium (8.7-10.3) mg/dL Total Bilirubin (0.3-1.2) mg/dL AST (13-35) U/L ALT (8-44) U/L Alkaline Phosphatase (41-126) U/L C-Reactive Protein (0.00-0.80) mg/dL Total Protein (6.2-8.2) g/dL Albumin (3.8-4.9) g/dL Albumin/Globulin Ratio (1.60-3.17) Ratio Procalcitonin (0.02-0.09) ng/mL TSH 86.100 H (0.350-5.500) UIU/ML Free T4 0.18 L (0.80-1.80) ng/dL 07/12/23 Range/Units 13:17 WBC (4.50-10.00) X 10*3/uL RBC (4.10-5.20) X 10*6/uL Hgb (12.0-15.0) g/dL Hct (37.2-46.3) % MCV (80.0-97.0) FL MCHC (32.0-37.0) g/dL RDW (11.5-14.5) % Neutrophils # (Manual) (1.80-7.70) X 10*3/uL Monocytes # (Manual) (0.20-1.00) X 10*3/uL Eosinophils # (Manual) (0.04-0.35) X 10*3/uL Promyelocytes # (Man) (0) k/uL NRBC/100 WBC Diff (0.00-0.01) X 10*3/uL Sodium (135-145) mmol/L Carbon Dioxide (21.6-31.8) mmol/L BUN (9.0-27.0) mg/dL Creatinine (0.6-1.5) mg/dL Est GFR (CKD-EPI) (>=60) BUN/Creatinine Ratio (12.00-20.00) Ratio POC Glucose (mg/dL) 233 H (70-110) mg/dL Calcium (8.7-10.3) mg/dL Total Bilirubin (0.3-1.2) mg/dL AST (13-35) U/L ALT (8-44) U/L Alkaline Phosphatase (41-126) U/L C-Reactive Protein (0.00-0.80) mg/dL Total Protein (6.2-8.2) g/dL Albumin (3.8-4.9) g/dL Albumin/Globulin Ratio (1.60-3.17) Ratio Procalcitonin (0.02-0.09) ng/mL TSH (0.350-5.500) UIU/ML Free T4 (0.80-1.80) ng/dL Microbiology - Last 24 Hours (Table) 07/10/23 21:33 Urine Culture - Preliminary Urine,Voided Chaparrita albicans 07/10/23 14:40 Blood Culture - Preliminary Blood
[2023-07-12] MEDS ORDERED: ZINC OXIDE PASTE (Z-GUARD) 1 APPLIC TOPICAL PRN (15:20)
[2023-07-12 16:46] LABS: Glucose,Whole Blood 147 mg/dL (70-110)
[2023-07-12] MEDS: PROCHLORPERAZINE INJ 10 MG/2 ML VIAL IVP PRN (17:41)
--- NOTE | 2023-07-12 18:02 | XR ---
EXAMINATION TYPE: XR KUB portable DATE OF EXAM: 07/12/2023 COMPARISON: 07/10/2023 INDICATION: Urinary retention TECHNIQUE: Single view abdomen FINDINGS: There is a normal bowel gas pattern. Psoas margins are normal. No organomegaly is present. IMPRESSION: 1. Nonspecific abdomen
[2023-07-12] MEDS: WARFARIN 2 MG TAB PO ONE (18:59)
[2023-07-12 21:38] LABS: Glucose,Whole Blood 148 mg/dL (70-110)
[2023-07-12] MEDS: PROCHLORPERAZINE 10 MG TAB PO SCH (23:48)
[2023-07-13 06:15] LABS: Glucose,Whole Blood 95 mg/dL (70-110)
[2023-07-13] MEDS: LEVOTHYROXINE 25 MCG TAB PO SCH (06:30)
[2023-07-13 06:45] LABS: INR 1.1 (<1.2); Prothrombin Time 11.6 sec (10.0-12.5)
--- NOTE | 2023-07-13 08:09 | P.PN ---
Subjective Progress Note Date: 07/12/23 Principal diagnosis: Reason for follow-up is sepsis UTI/pneumonia Patient is a 82-year-old female with a past medical history significant for hypertension hyperlipidemia mitral valve prolapse rheumatoid arthritis heart failure patient has been brought into the hospital for evaluation of increasing shortness of breath patient was initially admitted to the ICU concerning for sepsis secondary to possible pneumonia/UTI versus hepatobiliary source. On today's evaluation that is 07/12/2023, patient has been afebrile, patient is breathing comfortably and is currently on room air, patient denies having any significant cough no chest pain shortness of breath, patient denies nausea vomiting, no worsening diarrhea reported by the nursing staff or any abdominal pain. Patient white count is down to 14.09 creatinine is 1 point 9 repeat urine is growing Chaparrita Objective - Vital Signs Vital signs: Vital Signs Temp 97.5 F L 07/12/23 13:14 Pulse 67 07/12/23 13:14 Resp 20 07/12/23 13:14 BP 120/58 07/12/23 13:14 Pulse Ox 97 07/12/23 07:32 FiO2 21 07/05/23 07:54 Intake & Output 07/11/23 07/12/23 07/12/23 18:59 06:59 18:59 Intake Total 1400 200 200 Output Total 510 400 Balance 890 -200 200 Weight 53.5 kg 60 kg Intake: Oral 1400 200 200 Output: Urine 510 400 Uretheral (Caldwell) 110 400 Other: Voiding Method Indwelling Catheter Indwelling Catheter # Voids 3 - Exam GENERAL DESCRIPTION: An elderly female lying in bed in no distress RESPIRATORY SYSTEM: Unlabored breathing , decreased breath sounds at bases HEART: S1 S2 regular rate and rhythm , ABDOMEN: Soft , mild distention but no tenderness EXTREMITIES: No edema feet Patient did have a stage II pressure ulcer to the right gluteal and sacral area with some slough tissue - Labs CBC & Chem 7: 07/12/23 06:49 07/12/23 06:49 Labs: Abnormal Lab Results - Last 24 Hours (Table) 07/11/23 07/11/23 07/11/23 Range/Units 05:43 16:50 21:17 WBC (4.50-10.00) X 10*3/uL RBC (4.10-5.20) X 10*6/uL Hgb (12.0-15.0) g/dL Hct (37.2-46.3) % MCV (80.0-97.0) FL MCHC (32.0-37.0) g/dL RDW (11.5-14.5) % Neutrophils # (Manual) 15.44 H (1.80-7.70) X 10*3/uL Monocytes # (Manual) (0.20-1.00) X 10*3/uL Eosinophils # (Manual) (0.04-0.35) X 10*3/uL Promyelocytes # (Man) 0.17 H (0) k/uL NRBC/100 WBC Diff (0.00-0.01) X 10*3/uL Sodium (135-145) mmol/L Carbon Dioxide (21.6-31.8) mmol/L BUN (9.0-27.0) mg/dL Creatinine (0.6-1.5) mg/dL Est GFR (CKD-EPI) (>=60) BUN/Creatinine Ratio (12.00-20.00) Ratio POC Glucose (mg/dL) 128 H 176 H (70-110) mg/dL Calcium (8.7-10.3) mg/dL Total Bilirubin (0.3-1.2) mg/dL AST (13-35) U/L ALT (8-44) U/L Alkaline Phosphatase (41-126) U/L C-Reactive Protein (0.00-0.80) mg/dL Total Protein (6.2-8.2) g/dL Albumin (3.8-4.9) g/dL Albumin/Globulin Ratio (1.60-3.17) Ratio Procalcitonin (0.02-0.09) ng/mL 07/12/23 07/12/23 07/12/23 Range/Units 05:56 06:49 06:49 WBC (4.50-10.00) X 10*3/uL RBC (4.10-5.20) X 10*6/uL Hgb (12.0-15.0) g/dL Hct (37.2-46.3) % MCV (80.0-97.0) FL MCHC (32.0-37.0) g/dL RDW (11.5-14.5) % Neutrophils # (Manual) (1.80-7.70) X 10*3/uL Monocytes # (Manual) (0.20-1.00) X 10*3/uL Eosinophils # (Manual) (0.04-0.35) X 10*3/uL Promyelocytes # (Man) (0) k/uL NRBC/100 WBC Diff (0.00-0.01) X 10*3/uL Sodium 131 L (135-145) mmol/L Carbon Dioxide 20.3 L (21.6-31.8) mmol/L BUN 67.9 H (9.0-27.0) mg/dL Creatinine 1.9 H (0.6-1.5) mg/dL Est GFR (CKD-EPI) 26 L (>=60) BUN/Creatinine Ratio 35.74 H (12.00-20.00) Ratio POC Glucose (mg/dL) 117 H (70-110) mg/dL Calcium 8.4 L (8.7-10.3) mg/dL Total Bilirubin <0.2 L (0.3-1.2) mg/dL AST 53 H (13-35) U/L ALT 102 H (8-44) U/L Alkaline Phosphatase 164 H (41-126) U/L C-Reactive Protein 6.50 H (0.00-0.80) mg/dL Total Protein 4.9 L (6.2-8.2) g/dL Albumin 2.0 L (3.8-4.9) g/dL Albumin/Globulin Ratio 0.69 L (1.60-3.17) Ratio Procalcitonin 0.75 H (0.02-0.09) ng/mL 07/12/23 07/12/23 07/12/23 Range/Units 06:49 11:45 13:17 WBC 14.09 H (4.50-10.00) X 10*3/uL RBC 2.71 L (4.10-5.20) X 10*6/uL Hgb 8.3 L (12.0-15.0) g/dL Hct 27.4 L (37.2-46.3) % MCV 101.1 H (80.0-97.0) FL MCHC 30.3 L (32.0-37.0) g/dL RDW 19.4 H (11.5-14.5) % Neutrophils # (Manual) (1.80-7.70) X 10*3/uL Monocytes # (Manual) 0.14 L (0.20-1.00) X 10*3/uL Eosinophils # (Manual) 0 L (0.04-0.35) X 10*3/uL Promyelocytes # (Man) (0) k/uL NRBC/100 WBC Diff 0.04 H (0.00-0.01) X 10*3/uL Sodium (135-145) mmol/L Carbon Dioxide (21.6-31.8) mmol/L BUN (9.0-27.0) mg/dL Creatinine (0.6-1.5) mg/dL Est GFR (CKD-EPI) (>=60) BUN/Creatinine Ratio (12.00-20.00) Ratio POC Glucose (mg/dL) 353 H 233 H (70-110) mg/dL Calcium (8.7-10.3) mg/dL Total Bilirubin (0.3-1.2) mg/dL AST (13-35) U/L ALT (8-44) U/L Alkaline Phosphatase (41-126) U/L C-Reactive Protein (0.00-0.80) mg/dL Total Protein (6.2-8.2) g/dL Albumin (3.8-4.9) g/dL Albumin/Globulin Ratio (1.60-3.17) Ratio Procalcitonin (0.02-0.09) ng/mL Microbiology - Last 24 Hours (Table) 07/10/23 21:33 Urine Culture - Preliminary Urine,Voided Chaparrita albicans 07/10/23 14:40 Blood Culture - Preliminary Blood Assessment and Plan (1) UTI (urinary tract infection) Current Visit: Yes Status: Acute Code(s): N39.0 - URINARY TRACT INFECTION, SITE NOT SPECIFIED SNOMED Code(s): 51017229 (2) Elevated liver enzymes Current Visit: Yes Status: Acute Code(s): R74.8 - ABNORMAL LEVELS OF OTHER SERUM ENZYMES SNOMED Code(s): 721454608 (3) Pneumonia Current Visit: Yes Status: Acute Code(s): J18.9 - PNEUMONIA, UNSPECIFIED ORGANISM SNOMED Code(s): 916134183 (4) Leukocytosis Current Visit: No Status: Acute Code(s): D72.829 - ELEVATED WHITE BLOOD CELL COUNT, UNSPECIFIED SNOMED Code(s): 034375285 (5) Diarrhea Current Visit: Yes Status: Acute Code(s): R19.7 - DIARRHEA, UNSPECIFIED SNOMED Code(s): 30425071 Plan: 1patient with leukocytosis which is likely related to catheter assisted UTI with urine culture currently growing Chaparrita unfortunately we are not able to use Diflucan because of her cardiac medication and interaction cardiology has been reconsulted to see if we can use Diflucan with her current cardiac medication this was explained to the nursing staff who will be checking with the cardiology [employer], white count did show some improvement after her Caldwell catheter was discontinued yesterday and will monitor closely 5-patient did have a stage II sacral pressure ulcer to the right gluteal and sacral area local care with the Medihoney followed by moist dressing keep the area of the pressure Dictation was produced using [employer] dictation software. please excuse any grammatical, word or spelling errors. Time with Patient: Less than 30
[2023-07-13 09:56] LABS: ALT 77 U/L (8-44); AST 39 U/L (13-35); Albumin 2.2 g/dL (3.8-4.9); Albumin/Globulin Ratio 0.88 Ratio (1.60-3.17); Alkaline Phosphatase 138 U/L (41-126); BUN/Creat Ratio 34.47 Ratio (12.00-20.00); Blood Urea Nitrogen 65.5 mg/dL (9.0-27.0); Calcium 8.4 mg/dL (8.7-10.3); Carbon Dioxide 18.6 mmol/L (21.6-31.8); Chloride 106 mmol/L (96-109); Globulin 2.5 g/dL (1.6-3.3); Glucose 86 mg/dL (70-110); Magnesium 1.8 mg/dL (1.5-2.4); Potassium 4.6 mmol/L (3.5-5.5); Sodium 136 mmol/L (135-145); Total Bilirubin <0.2 mg/dL (0.3-1.2); Total Protein 4.7 g/dL (6.2-8.2)
--- NOTE | 2023-07-13 10:48 | P.PN ---
Subjective Patient is seen in follow-up for acute kidney injury. Renal function stable. Currently on oral Lasix. Received a dose of IV Lasix 07/12/23. Oral intake fair. Vital signs are stable. General: No acute distress. HEENT: Head exam is unremarkable. LUNGS: No audible rhonchi or wheezes. HEART: Rate and Rhythm are regular. ABDOMEN: Nontender. EXTREMITITES: 1+ edema. Objective - Vital Signs Vital signs: Vital Signs Temp 98.0 F 07/13/23 07:36 Pulse 62 07/13/23 08:44 Resp 17 07/13/23 07:36 BP 114/62 07/13/23 07:36 Pulse Ox 100 07/13/23 08:33 FiO2 21 07/05/23 07:54 Intake & Output 07/12/23 07/13/23 07/13/23 18:59 06:59 18:59 Intake Total 450 Output Total 975 Balance 450 -975 Weight 56 kg Intake: Oral 450 Output: Urine 975 Other: Voiding Method Indwelling Catheter Indwelling Catheter # Voids 2 # Bowel Movements 3 - Labs CBC & Chem 7: 07/12/23 06:49 07/13/23 06:10 Labs: Abnormal Lab Results - Last 24 Hours (Table) 07/12/23 07/12/23 07/12/23 Range/Units 06:49 06:49 11:45 Neutrophils # (Manual) 11.98 H (1.80-7.70) X 10*3/uL Monocytes # (Manual) 0.14 L (0.20-1.00) X 10*3/uL Eosinophils # (Manual) 0 L (0.04-0.35) X 10*3/uL Carbon Dioxide (21.6-31.8) mmol/L BUN (9.0-27.0) mg/dL Creatinine (0.6-1.5) mg/dL Est GFR (CKD-EPI) (>=60) BUN/Creatinine Ratio (12.00-20.00) Ratio POC Glucose (mg/dL) 353 H (70-110) mg/dL Calcium (8.7-10.3) mg/dL Total Bilirubin (0.3-1.2) mg/dL AST (13-35) U/L ALT (8-44) U/L Alkaline Phosphatase (41-126) U/L Total Protein (6.2-8.2) g/dL Albumin (3.8-4.9) g/dL Albumin/Globulin Ratio (1.60-3.17) Ratio TSH 86.100 H (0.350-5.500) UIU/ML Free T4 0.18 L (0.80-1.80) ng/dL 07/12/23 07/12/23 07/12/23 Range/Units 13:17 16:45 21:36 Neutrophils # (Manual) (1.80-7.70) X 10*3/uL Monocytes # (Manual) (0.20-1.00) X 10*3/uL Eosinophils # (Manual) (0.04-0.35) X 10*3/uL Carbon Dioxide (21.6-31.8) mmol/L BUN (9.0-27.0) mg/dL Creatinine (0.6-1.5) mg/dL Est GFR (CKD-EPI) (>=60) BUN/Creatinine Ratio (12.00-20.00) Ratio POC Glucose (mg/dL) 233 H 147 H 148 H (70-110) mg/dL Calcium (8.7-10.3) mg/dL Total Bilirubin (0.3-1.2) mg/dL AST (13-35) U/L ALT (8-44) U/L Alkaline Phosphatase (41-126) U/L Total Protein (6.2-8.2) g/dL Albumin (3.8-4.9) g/dL Albumin/Globulin Ratio (1.60-3.17) Ratio TSH (0.350-5.500) UIU/ML Free T4 (0.80-1.80) ng/dL 07/13/23 Range/Units 06:10 Neutrophils # (Manual) (1.80-7.70) X 10*3/uL Monocytes # (Manual) (0.20-1.00) X 10*3/uL Eosinophils # (Manual) (0.04-0.35) X 10*3/uL Carbon Dioxide 18.6 L (21.6-31.8) mmol/L BUN 65.5 H (9.0-27.0) mg/dL Creatinine 1.9 H (0.6-1.5) mg/dL Est GFR (CKD-EPI) 26 L (>=60) BUN/Creatinine Ratio 34.47 H (12.00-20.00) Ratio POC Glucose (mg/dL) (70-110) mg/dL Calcium 8.4 L (8.7-10.3) mg/dL Total Bilirubin <0.2 L (0.3-1.2) mg/dL AST 39 H (13-35) U/L ALT 77 H (8-44) U/L Alkaline Phosphatase 138 H (41-126) U/L Total Protein 4.7 L (6.2-8.2) g/dL Albumin 2.2 L (3.8-4.9) g/dL Albumin/Globulin Ratio 0.88 L (1.60-3.17) Ratio TSH (0.350-5.500) UIU/ML Free T4 (0.80-1.80) ng/dL Microbiology - Last 24 Hours (Table) 07/10/23 14:40 Blood Culture - Preliminary Blood 07/10/23 21:33 Urine Culture - Preliminary Urine,Voided Chaparrita albicans Assessment and Plan Plan: Assessment: 1. Acute kidney injury secondary to ATN secondary to severe sepsis. Was also on Bactrim prior to admission. No hydronephrosis noted on kidney ultrasound/CT. Renal function stable. 2. Chronic diastolic CHF with severe pulmonary hypertension, mild to moderate aortic stenosis, moderate aortic regurgitation, severe mitral stenosis. 3. Hyperkalemia secondary to acute kidney injury on Bactrim. Improved. 4. Volume overload. On Lasix. 5. Acute blood loss anemia. Status post blood transfusion this admission. Also received IV iron. Stable. 6. Hyponatremia from poor solute intake. Hypervolemic. 7. Acute COVID infection. 8. Left abdominal rectus sheath hematoma. Surgery following. 9. Hypervolemic hyponatremia. Better. 10. Protein calorie malnutrition with albumin level of 2.0. s/p IV albumin 07/12/23. 11. Urinary retention. Caldwell catheter had to be reinserted. On Flomax. 12. Metabolic acidosis secondary to acute kidney injury. Plan: Maintain oral Lasix. Encouraged oral intake. Maintain 1500 cc fluid restriction. Avoid nephrotoxins. Continue to monitor renal function and urine output. Maintain midodrine. Hold for systolic blood pressure greater than 110. A.m. cortisol level not low. Add oral bicarb.
[2023-07-13 11:38] LABS: Glucose,Whole Blood 103 mg/dL (70-110)
[2023-07-13] MEDS: SODIUM BICARBONATE TAB 650 MG TAB PO SCH (11:40)
--- NOTE | 2023-07-13 13:43 | P.PN ---
Subjective Progress Note Date: 07/13/23 82-year-old lady with past medical history significant for congestive heart failure, atrial fibrillation with RVR,presented to the ER because of worsening shortness of breath. Patient was only recently discharged on 06/25 after being treated in the hospital for similar complaints.after discharge, patient was all right for 1 day but started noticing that she was getting more short of breath on exertion. Patient denied any chest pain. There was no complain of orthopnea or PND. There was no complain of swelling of feet. There was no complain of fever or chills. Patient oxygen requirements were also increasing so she was transferred back to the ER Initial lab work done in the ER showed WBC 28, hemoglobin 10.5, platelet count 332, INR 3.7, sodium 138, potassium 6.2, BUN 79, creatinine1.71, AST 378, ALT 350, troponin 0.247 EKG done in the ER showed heart rate of 81 , no ST segment elevation or depression seen, no T-wave inversions seen. Chest x-ray done in the ER showed cardiomegaly and moderate vascular congestion Patient admitted to internal medicine service 06/29. Patient seen and examined. Blood work done this morning showed WBC 19.8, hemoglobin 8.6, sodium 135, potassium 4.4, BUN 70, creatinine 1.21. Ox requirements have improved, currently on 6 L of oxygen. Patient is much more talkative compared to yesterday. Answering questions. 07/01/2023 Patient examined today in follow up. Remains on 6L of oxygen, more awake and alert. She continues on clear liquid diet which will be upgraded pending speech therapy recommendations as there is concern for aspiration. Indwelling catheter remains in place for urinary retention with concern for acute UTI which family feels was caused from the IDC placed prior to her previous discharge. She has been started on cefepime and vancomycin with concern for sepsis. White blood cell count has normalized to 5.7. Hemoglobin 7.1. INR 6.4 and warfarin remains on hold. Renal function stable. LFTs remain significantly elevated. 07/02/2023 Patient is evaluated today on the medical floor. Weaned down to 4L of oxygen. LFTs remain elevated. Gallbladder ultrasound completed revealing hepatic steatosis with ascites adjacent to the liver suspected. Echogenic materinal within the gallbladder lumen with masslike appearance. Borderline wall t hickening. Hemoglobin 6.9 today. Patient will receive 1 unit of blood. Covid PCR positive. 07/03/2023 Patient continues to report feeling fatigued. Was able to be weaned down to 2L of oxygen. Does have visible bruising over the left abdomen. Had abdominal pelvis CT done today which reveals a 6.8 x 2.6 x 12 cm left abdominal rectus hematoma. INR has improved down to 1.2 and this will likely only need conservative management however general surgery was consulted. There is also mention of distended gallbladder although no mention of an acute cholecystitis, dilated ducted. Patient has consistently elevated LFTs this could be due to infection however general surgery recommending HIDA scan. Left ankle xray was completed due to the bruising and mild soft tissue swelling patient states this was injured end of March when she fell. There is no acute fracture noted and patient would benefit from icing and elevation as well as light compression. 07/04/2023 Patient is evaluated on the medical floor. Continues to feel fatigued. Has not been out of bed much and has fair appetite. Family has been coming to assist with meal time feeding. General surgery following for the rectus sheath hematoma and INR has normalized and patient is being monitored off coumadin at this time. HIDA scan completed for further evaluation of the gallbladder which was normal. Recommendations for cholecystectomy however after cardiology re-evaluation felt patient was high risk for surgery. Patient has significant valvular heart disease and there is concern for possible interstitial lung disease she will be taken off the amiodarone at this time. Hemoglobin is stable at 8.7. 07/05/2023 Patient is evaluated today sitting up in the chair with at the bedside. Patient has been more awake and alert and has increased appetite. Family has been coming in to help her at every meal. Hemoglobin stable at 8.6. Patient is continued on IV cefepime with ID following closely. Not a surgical candidate. Abdominal bruising improving. IDC remains and family has concerns and would like it removed before discharge to rehab. Patient remains off coumadin at this time with general surgery recommendations to continue holding. INR 1.0 today. 07/06/2023 Patient is seen and evaluated in follow-up this morning currently sitting up in bed asleep although arousable. Patient reports feeling tired and denies any sig nificant pain. General surgery following with no plans of surgical intervention given significant comorbidities and not a surgical candidate. Patient is continued on IV antibiotics with infectious disease following. Nephrology following as well and patient is maintained on fluid restrictions. Oral intake remains poor to fair and is being encouraged to attempt to eat small frequent meals. Patient is currently maintaining oxygen saturations above 90% on room air and pulmonary is following closely. Awaiting PT/OT therapy to reevaluate patient will most definitely need rehab on discharge. 07/07/23 : Patient seen and evaluated at bedside, vitals reviewed, blood work reviewed. CBC showed hemoglobin of 8.8, WBC 12, platelet count 189. Serum chemistry showed sodium 137 potassium 4.3 BUN 52 creatinine 1.2 magnesium of 1.6, patient does complain of nausea, continue to hold Coumadin till hemoglobin stabilized 07/08/23 : Patient seen and evaluated bedside, patient started back on Coumadin hemoglobin 8.8 remained stable, serum chemistry reviewed creatinine 1.09, sodium 136 potassium 3.9 calcium 8.1. Liver profile shows trending down of AST and ALT 07/09/23: Seen and evaluated at bedside, blood work reviewed, WBC 12.8 hemoglobin 7.9, serum chemistry reviewed sodium 134 creatinine 1.2, INR 1.1. Continue to remain on IV antibiotics, patient does have diarrhea and does have fecal manag ement system in place, C. difficile was negative continue patient on Lomotil along with cholestyramine I am resuming the care of the patient today 07/10/2023 Dr Scherer Patient awake and alert, feels very weak and tired and lethargic She follows commands and answers questions appropriately She has mild abdominal distention, she has ongoing diarrhea, C. difficile has been negative and patient placed on antimotility medication like Lomotil Also patient has mild left ankle swelling and bruise, patient denies falling, x- rays requested ( had negative xray about one week ago) Blood pressure chronically borderline, afebrile and rest of vital stable, Labs reviewed, INR 1.1, has leukocytosis of 15.2, hemoglobin slightly low at 7.9 down to 7.7. Creatinine pending pt currentlyon Eraxis, Coumadin and cholestyramine and Lasix 40 mg discussed with the bedside daughter at bedside and she verbalized understanding and acceptance Discussed with staff 07/11/2023 Patient awake alert, she is slightly drowsy, she slept more than 3 hours this morning, daughter at bedside and patient she is still sleepy although she is improving compared to yesterday Patient herself feels fine. Daughter discussed with mother to discuss continue Zoloft for her sleepiness but patient's wants to keep it stating that it helped her become less anxious. Because the patient is more and oriented today. She is able to eat this morning. Yesterday she has some abdominal distention, KUB reviewed by myself showing gastric distention which is looks resolved now. Abdomen is not distended now. No bowel movement of diarrhea. She has mild bilateral leg edema and I believe this is given today. Blood pressure is at baseline, low normal with systolic 90-100. Resume Coumadin and follow-up INR. Patient remains on the Eraxis Repeat urine analysis still abnormal, urine culture is pending. Plan to discontinue Caldwell catheter and bladder check 07/12/2023 pt is still not eating much despite encouragement , last week she passed swallow evaluation because she was losing muscle back in her throat, she was placed on chopped diet however still her appetite is poor. The patient is on the case and she is prescribed Ensure and other encouragement. However patient denies nausea. Discussed with staff we are going to do call for nutrition consult since she has prolonged malnutrition she might benefit from parenteral or other form of enteral feeding like via NG tube. Otherwise we expect patient to continue to deteriorate. Patient has this gallbladder mass, surgery team on the case and they patient poor surgical candidate. Family also declines surgical intervention like debridement of her sacral wound. Her abdomen is soft and there is no RUQ tenderness or pain. She remains on Eraxis. Urine culture is repeated. Still pending. Caldwell catheter was discontinued yesterday and she was retaining more than 300 last night and she had to be straight cath. We contacted [facility] and if still continued to do rate then we may consider replacing the Caldwell catheter in again. Fecal management system is leaking and there is no obvious diarrhea currently there probably can be discontinued and monitored. She remains on Coumadin. INR still subtherapeutic. Patient still on leukocytosis and she is covered with Eraxis but there is no fever Procalcitonin is checked and is mildly coming down 1.1 down from 0.8. For more than a week indicating persistent abnormality Discussed with the bedside nurse and case management associate. 07/13/23: Patient seen and evaluated bedside, blood work reviewed, serum chemistry reviewed, sodium 136 creatinine 1.9 liver profile trending down, INR 1.1, care plan discussed with daughter at bedside, dose of Synthyroid increase started on appetite stimulant Assessment and plan Acute hypoxic respiratory failure due to asthma exacerbation; requiring 6L and has weaned to room air. Non-ST elevation CO Left abdominal rectus sheath hematoma Acute on chronic diastolic heart failure; Moderate to severe mitral calcification, moderate to severe mitral stenosis, mild aortic regurgitation and stenosis, Pulmonary hypertension WHO class II. Hyperkalemia normalized Anemia iron deficient with acute blood loss anemia from the left rectus sheath hematoma Acute transaminitis with concern for acute cholecystitis, HIDA scan normal. Not a surgical candidate at this time. Acute UTI with sepsis POA. Acute kidney injury Recent hospitalization for COVID in May, PCR still positive; not in active infection. Warfarin toxicity resolved. Paroxysmal atrial fibrillation currently maintaining normal sinus rhyhtm. History of coronary artery disease with previous PCI/stent x3 History of hyperlipidemia History of hypertension Rheumatoid arthritis History of hypothyroidism Mild protein calorie malnutrition Stage 2 pressure injury on right and left buttock present on admission Sacral decubitus ulcer, unstageable present on admission. Lifelong non-smoker Plan * In regards to atrial fibrillation patient was started on amiodarone and Coumadin however amiodarone was discontinued and patient was transition to dronedarone , continue telemonitoring * In regards to hypertension continue patient on midodrine for blood pressure support * In regards to urinary tract infection and pneumonia , was on cefepime, completed antibiotic course * In regards to anemia patient given IV iron replacement s/p 1 unit of packed RBC hemoglobin improved, * In regards to rectus sheath hematoma and anemia >> Coumadin will be resumed 07/07 follow-up on INR 1.1, monitor hemoglobin * In regards to generalized debility and dysphagia patient seen by speech therapy as well as physical therapy patient was started on amiodarone and warfarin back on 06/18 due to findings of atrial fibrillation with RVR and severe mitral stenosis. Cardiology has concerns for interstitial lung disease and amiodarone has been discontinued. Patient has been started on dronedarone. * In regards to hypothyroidism continue patient on Synthyroid follow-up on TSH in 4 weeks * In regards to malnutrition patient started on Megace * Due to multiple complex medical issues, overall prognosis is guarded Objective - Vital Signs Vital signs: Vital Signs Temp 98.0 F 07/13/23 07:36 Pulse 62 07/13/23 08:44 Resp 17 07/13/23 07:36 BP 114/62 07/13/23 07:36 Pulse Ox 100 07/13/23 08:33 FiO2 21 07/05/23 07:54 Intake & Output 07/12/23 07/13/23 07/13/23 18:59 06:59 18:59 Intake Total 450 Output Total 975 Balance 450 -975 Weight 56 kg Intake: Oral 450 Output: Urine 975 Other: Voiding Method Indwelling Catheter Indwelling Catheter # Voids 2 # Bowel Movements 3 - Labs CBC & Chem 7: 07/12/23 06:49 07/13/23 06:10 Labs: Abnormal Lab Results - Last 24 Hours (Table) 07/12/23 07/12/23 07/12/23 Range/Units 06:49 06:49 11:45 Neutrophils # (Manual) 11.98 H (1.80-7.70) X 10*3/uL Monocytes # (Manual) 0.14 L (0.20-1.00) X 10*3/uL Eosinophils # (Manual) 0 L (0.04-0.35) X 10*3/uL Carbon Dioxide (21.6-31.8) mmol/L BUN (9.0-27.0) mg/dL Creatinine (0.6-1.5) mg/dL Est GFR (CKD-EPI) (>=60) BUN/Creatinine Ratio (12.00-20.00) Ratio POC Glucose (mg/dL) 353 H (70-110) mg/dL Calcium (8.7-10.3) mg/dL Total Bilirubin (0.3-1.2) mg/dL AST (13-35) U/L ALT (8-44) U/L Alkaline Phosphatase (41-126) U/L Total Protein (6.2-8.2) g/dL Albumin (3.8-4.9) g/dL Albumin/Globulin Ratio (1.60-3.17) Ratio TSH 86.100 H (0.350-5.500) UIU/ML Free T4 0.18 L (0.80-1.80) ng/dL 07/12/23 07/12/23 07/12/23 Range/Units 13:17 16:45 21:36 Neutrophils # (Manual) (1.80-7.70) X 10*3/uL Monocytes # (Manual) (0.20-1.00) X 10*3/uL Eosinophils # (Manual) (0.04-0.35) X 10*3/uL Carbon Dioxide (21.6-31.8) mmol/L BUN (9.0-27.0) mg/dL Creatinine (0.6-1.5) mg/dL Est GFR (CKD-EPI) (>=60) BUN/Creatinine Ratio (12.00-20.00) Ratio POC Glucose (mg/dL) 233 H 147 H 148 H (70-110) mg/dL Calcium (8.7-10.3) mg/dL Total Bilirubin (0.3-1.2) mg/dL AST (13-35) U/L ALT (8-44) U/L Alkaline Phosphatase (41-126) U/L Total Protein (6.2-8.2) g/dL Albumin (3.8-4.9) g/dL Albumin/Globulin Ratio (1.60-3.17) Ratio TSH (0.350-5.500) UIU/ML Free T4 (0.80-1.80) ng/dL 07/13/23 Range/Units 06:10 Neutrophils # (Manual) (1.80-7.70) X 10*3/uL Monocytes # (Manual) (0.20-1.00) X 10*3/uL Eosinophils # (Manual) (0.04-0.35) X 10*3/uL Carbon Dioxide 18.6 L (21.6-31.8) mmol/L BUN 65.5 H (9.0-27.0) mg/dL Creatinine 1.9 H (0.6-1.5) mg/dL Est GFR (CKD-EPI) 26 L (>=60) BUN/Creatinine Ratio 34.47 H (12.00-20.00) Ratio POC Glucose (mg/dL) (70-110) mg/dL Calcium 8.4 L (8.7-10.3) mg/dL Total Bilirubin <0.2 L (0.3-1.2) mg/dL AST 39 H (13-35) U/L ALT 77 H (8-44) U/L Alkaline Phosphatase 138 H (41-126) U/L Total Protein 4.7 L (6.2-8.2) g/dL Albumin 2.2 L (3.8-4.9) g/dL Albumin/Globulin Ratio 0.88 L (1.60-3.17) Ratio TSH (0.350-5.500) UIU/ML Free T4 (0.80-1.80) ng/dL Microbiology - Last 24 Hours (Table) 07/10/23 14:40 Blood Culture - Preliminary Blood 07/10/23 21:33 Urine Culture - Preliminary Urine,Voided Chaparrita albicans
[2023-07-13 16:26] LABS: Glucose,Whole Blood 117 mg/dL (70-110)
[2023-07-13] MEDS: WARFARIN 1 MG TAB PO ONE (20:42)
[2023-07-13] MEDS: MEGESTROL 40 MG TAB PO SCH (20:43)
[2023-07-13 20:50] LABS: Glucose,Whole Blood 134 mg/dL (70-110)
[2023-07-14 05:46] LABS: INR 1.2 (<1.2)
[2023-07-14 05:52] LABS: African American GFR (CKD) 33 (>60 ml/min/1.73 sqM); Anion Gap 6 mmol/L; Blood Urea Nitrogen 71 mg/dL (7-17); Calcium 8.2 mg/dL (8.4-10.2); Carbon Dioxide 19 mmol/L (22-30); Chloride 110 mmol/L (98-107); Glucose 78 mg/dL (74-99); Non-African American GFR(CKD) 28 (>60 ml/min/1.73 sqM); Potassium 4.6 mmol/L (3.5-5.1); Sodium 135 mmol/L (137-145)
[2023-07-14] MEDS: LEVOTHYROXINE 125 MCG TAB PO SCH (06:21)
[2023-07-14] MEDS ORDERED: LEVOTHYROXINE 25 MCG TAB PO SCH (06:30)
[2023-07-14 06:41] LABS: Glucose,Whole Blood 96 mg/dL (70-110)
[2023-07-14 10:17] LABS: Anisocytosis Slight; HCT 27.2 % (34.0-46.0); HGB 8.1 gm/dL (11.4-16.0); Hypochromasia Marked; MCH 30.6 pg (25.0-35.0); MCHC 29.7 g/dL (31.0-37.0); Macrocytosis Moderate; Mean Platelet Volume 8.6; Platelet Count 161 k/uL (150-450); RBC 2.64 m/uL (3.80-5.40); RDW 18.9 % (11.5-15.5); WBC 12.7 k/uL (3.8-10.6)
[2023-07-14 10:19] LABS: MCV 102.8 fL (80.0-100.0)
--- NOTE | 2023-07-14 10:30 | P.PN ---
Subjective Patient is seen in follow-up for acute kidney injury. Renal function stable. Currently on oral Lasix. Oral intake fair. Nonoliguric. Family present at bedside. Vital signs are stable. General: No acute distress. HEENT: Head exam is unremarkable. LUNGS: No audible rhonchi or wheezes. HEART: Rate and Rhythm are regular. ABDOMEN: Nontender. EXTREMITITES: 1+ edema. Objective - Vital Signs Vital signs: Vital Signs Temp 97.6 F 07/14/23 07:52 Pulse 62 07/14/23 07:52 Resp 15 07/14/23 07:52 BP 90/36 07/14/23 07:52 Pulse Ox 95 07/14/23 07:52 FiO2 21 07/05/23 07:54 Intake & Output 07/13/23 07/14/23 07/14/23 18:59 06:59 18:59 Output Total 400 750 Balance -400 -750 Weight 56.5 kg Output: Urine 400 750 Other: Voiding Method Indwelling Catheter # Bowel Movements 2 2 2 - Labs CBC & Chem 7: 07/14/23 09:24 07/14/23 04:52 Labs: Abnormal Lab Results - Last 24 Hours (Table) 07/13/23 07/13/23 07/14/23 Range/Units 16:24 20:48 04:52 WBC (3.8-10.6) k/uL RBC (3.80-5.40) m/uL Hgb (11.4-16.0) gm/dL Hct (34.0-46.0) % MCV (80.0-100.0) fL MCHC (31.0-37.0) g/dL RDW (11.5-15.5) % PT 13.0 H (10.0-12.5) sec INR 1.2 H (<1.2) Sodium (137-145) mmol/L Chloride (98-107) mmol/L Carbon Dioxide (22-30) mmol/L BUN (7-17) mg/dL Creatinine (0.52-1.04) mg/dL POC Glucose (mg/dL) 117 H 134 H (70-110) mg/dL Calcium (8.4-10.2) mg/dL 07/14/23 07/14/23 Range/Units 04:52 09:24 WBC 12.7 H (3.8-10.6) k/uL RBC 2.64 L (3.80-5.40) m/uL Hgb 8.1 L (11.4-16.0) gm/dL Hct 27.2 L (34.0-46.0) % MCV 102.8 H D (80.0-100.0) fL MCHC 29.7 L (31.0-37.0) g/dL RDW 18.9 H (11.5-15.5) % PT (10.0-12.5) sec INR (<1.2) Sodium 135 L (137-145) mmol/L Chloride 110 H (98-107) mmol/L Carbon Dioxide 19 L (22-30) mmol/L BUN 71 H (7-17) mg/dL Creatinine 1.68 H (0.52-1.04) mg/dL POC Glucose (mg/dL) (70-110) mg/dL Calcium 8.2 L (8.4-10.2) mg/dL Microbiology - Last 24 Hours (Table) 07/10/23 14:40 Blood Culture - Preliminary Blood 07/10/23 21:33 Urine Culture - Final Urine,Voided Chaparrita albicans Enterococcus gallinarum Assessment and Plan Plan: Assessment: 1. Acute kidney injury secondary to ATN secondary to severe sepsis. Was also on Bactrim prior to admission. No hydronephrosis noted on kidney ultrasound/CT. Renal function better. Nonoliguric. 2. Chronic diastolic CHF with severe pulmonary hypertension, mild to moderate aortic stenosis, moderate aortic regurgitation, severe mitral stenosis. 3. Hyperkalemia secondary to acute kidney injury on Bactrim. Improved. 4. Volume overload. On Lasix. 5. Acute blood loss anemia. Status post blood transfusion this admission. Also received IV iron. Stable. 6. Hyponatremia from poor solute intake. Hypervolemic. 7. Acute COVID infection. 8. Left abdominal rectus sheath hematoma. Surgery following. 9. Hypervolemic hyponatremia. Better. 10. Protein calorie malnutrition with albumin level of 2.0. s/p IV albumin 07/12/23. 11. Urinary retention. Caldwell catheter had to be reinserted. On Flomax. 12. Metabolic acidosis secondary to acute kidney injury. On oral bicarb. Plan: Lasix held this morning due to low blood pressures. Encouraged oral intake. Maintain 1500 cc fluid restriction. Avoid nephrotoxins. Continue to monitor renal function and urine output. Maintain midodrine. Increase dose to 10 mg. Hold for systolic blood pressure greater than 110. A.m. cortisol level not low. Check chest x-ray and abdominal ultrasound. Add Aranesp. Received fluid bolus due to hypotension this morning. Case discussed with patient's family present at bedside.
[2023-07-14 11:12] LABS: Glucose,Whole Blood 191 mg/dL (70-110)
--- NOTE | 2023-07-14 11:45 | XR ---
EXAMINATION TYPE: XR chest 1V DATE OF EXAM: 07/14/2023 COMPARISON: 06/30/2023 HISTORY: Shortness of breath TECHNIQUE: Single frontal view of the chest is obtained. FINDINGS: Heart is mildly prominent in size. There are diffuse interstitial and small airspace opacities unchanged compared to previous. There is no pneumothorax or pleural effusion. The osseous structures are intact IMPRESSION: Acute cardiopulmonary disease with no significant interval change. Findings are consiste nt with pulmonary edema versus diffuse inflammatory/pneumonic process.
--- NOTE | 2023-07-14 12:17 | US ---
EXAMINATION TYPE: US abdomen limited DATE OF EXAM: 07/14/2023 Exam done portable COMPARISON: NONE CLINICAL INDICATION: Female, 82 years old with history of ascites; Small amount of fluid seen in LLQ IMPRESSION: Small amount of ascites in the left lower quadrant of the abdomen.
[2023-07-14] MEDS: MIDODRINE 5 MG TAB PO SCH (12:52)
[2023-07-14] MEDS: DARBEPOETIN ALFA 40 MCG/0.4 ML SYRINGE SQ SCH (12:58)
--- NOTE | 2023-07-14 13:04 | P.PN ---
Subjective Progress Note Date: 07/14/23 82-year-old lady with past medical history significant for congestive heart failure, atrial fibrillation with RVR,presented to the ER because of worsening shortness of breath. Patient was only recently discharged on 06/25 after being treated in the hospital for similar complaints.after discharge, patient was all right for 1 day but started noticing that she was getting more short of breath on exertion. Patient denied any chest pain. There was no complain of orthopnea or PND. There was no complain of swelling of feet. There was no complain of fever or chills. Patient oxygen requirements were also increasing so she was transferred back to the ER Initial lab work done in the ER showed WBC 28, hemoglobin 10.5, platelet count 332, INR 3.7, sodium 138, potassium 6.2, BUN 79, creatinine1.71, AST 378, ALT 350, troponin 0.247 EKG done in the ER showed heart rate of 81 , no ST segment elevation or depression seen, no T-wave inversions seen. Chest x-ray done in the ER showed cardiomegaly and moderate vascular congestion Patient admitted to internal medicine service 06/29. Patient seen and examined. Blood work done this morning showed WBC 19.8, hemoglobin 8.6, sodium 135, potassium 4.4, BUN 70, creatinine 1.21. Ox requirements have improved, currently on 6 L of oxygen. Patient is much more talkative compared to yesterday. Answering questions. 07/01/2023 Patient examined today in follow up. Remains on 6L of oxygen, more awake and alert. She continues on clear liquid diet which will be upgraded pending speech therapy recommendations as there is concern for aspiration. Indwelling catheter remains in place for urinary retention with concern for acute UTI which family feels was caused from the IDC placed prior to her previous discharge. She has been started on cefepime and vancomycin with concern for sepsis. White blood cell count has normalized to 5.7. Hemoglobin 7.1. INR 6.4 and warfarin remains on hold. Renal function stable. LFTs remain significantly elevated. 07/02/2023 Patient is evaluated today on the medical floor. Weaned down to 4L of oxygen. LFTs remain elevated. Gallbladder ultrasound completed revealing hepatic steatosis with ascites adjacent to the liver suspected. Echogenic materinal within the gallbladder lumen with masslike appearance. Borderline wall t hickening. Hemoglobin 6.9 today. Patient will receive 1 unit of blood. Covid PCR positive. 07/03/2023 Patient continues to report feeling fatigued. Was able to be weaned down to 2L of oxygen. Does have visible bruising over the left abdomen. Had abdominal pelvis CT done today which reveals a 6.8 x 2.6 x 12 cm left abdominal rectus hematoma. INR has improved down to 1.2 and this will likely only need conservative management however general surgery was consulted. There is also mention of distended gallbladder although no mention of an acute cholecystitis, dilated ducted. Patient has consistently elevated LFTs this could be due to infection however general surgery recommending HIDA scan. Left ankle xray was completed due to the bruising and mild soft tissue swelling patient states this was injured end of March when she fell. There is no acute fracture noted and patient would benefit from icing and elevation as well as light compression. 07/04/2023 Patient is evaluated on the medical floor. Continues to feel fatigued. Has not been out of bed much and has fair appetite. Family has been coming to assist with meal time feeding. General surgery following for the rectus sheath hematoma and INR has normalized and patient is being monitored off coumadin at this time. HIDA scan completed for further evaluation of the gallbladder which was normal. Recommendations for cholecystectomy however after cardiology re-evaluation felt patient was high risk for surgery. Patient has significant valvular heart disease and there is concern for possible interstitial lung disease she will be taken off the amiodarone at this time. Hemoglobin is stable at 8.7. 07/05/2023 Patient is evaluated today sitting up in the chair with at the bedside. Patient has been more awake and alert and has increased appetite. Family has been coming in to help her at every meal. Hemoglobin stable at 8.6. Patient is continued on IV cefepime with ID following closely. Not a surgical candidate. Abdominal bruising improving. IDC remains and family has concerns and would like it removed before discharge to rehab. Patient remains off coumadin at this time with general surgery recommendations to continue holding. INR 1.0 today. 07/06/2023 Patient is seen and evaluated in follow-up this morning currently sitting up in bed asleep although arousable. Patient reports feeling tired and denies any sig nificant pain. General surgery following with no plans of surgical intervention given significant comorbidities and not a surgical candidate. Patient is continued on IV antibiotics with infectious disease following. Nephrology following as well and patient is maintained on fluid restrictions. Oral intake remains poor to fair and is being encouraged to attempt to eat small frequent meals. Patient is currently maintaining oxygen saturations above 90% on room air and pulmonary is following closely. Awaiting PT/OT therapy to reevaluate patient will most definitely need rehab on discharge. 07/07/23 : Patient seen and evaluated at bedside, vitals reviewed, blood work reviewed. CBC showed hemoglobin of 8.8, WBC 12, platelet count 189. Serum chemistry showed sodium 137 potassium 4.3 BUN 52 creatinine 1.2 magnesium of 1.6, patient does complain of nausea, continue to hold Coumadin till hemoglobin stabilized 07/08/23 : Patient seen and evaluated bedside, patient started back on Coumadin hemoglobin 8.8 remained stable, serum chemistry reviewed creatinine 1.09, sodium 136 potassium 3.9 calcium 8.1. Liver profile shows trending down of AST and ALT 07/09/23: Seen and evaluated at bedside, blood work reviewed, WBC 12.8 hemoglobin 7.9, serum chemistry reviewed sodium 134 creatinine 1.2, INR 1.1. Continue to remain on IV antibiotics, patient does have diarrhea and does have fecal manag ement system in place, C. difficile was negative continue patient on Lomotil along with cholestyramine I am resuming the care of the patient today 07/10/2023 Dr Scherer Patient awake and alert, feels very weak and tired and lethargic She follows commands and answers questions appropriately She has mild abdominal distention, she has ongoing diarrhea, C. difficile has been negative and patient placed on antimotility medication like Lomotil Also patient has mild left ankle swelling and bruise, patient denies falling, x- rays requested ( had negative xray about one week ago) Blood pressure chronically borderline, afebrile and rest of vital stable, Labs reviewed, INR 1.1, has leukocytosis of 15.2, hemoglobin slightly low at 7.9 down to 7.7. Creatinine pending pt currentlyon Eraxis, Coumadin and cholestyramine and Lasix 40 mg discussed with the bedside daughter at bedside and she verbalized understanding and acceptance Discussed with staff 07/11/2023 Patient awake alert, she is slightly drowsy, she slept more than 3 hours this morning, daughter at bedside and patient she is still sleepy although she is improving compared to yesterday Patient herself feels fine. Daughter discussed with mother to discuss continue Zoloft for her sleepiness but patient's wants to keep it stating that it helped her become less anxious. Because the patient is more and oriented today. She is able to eat this morning. Yesterday she has some abdominal distention, KUB reviewed by myself showing gastric distention which is looks resolved now. Abdomen is not distended now. No bowel movement of diarrhea. She has mild bilateral leg edema and I believe this is given today. Blood pressure is at baseline, low normal with systolic 90-100. Resume Coumadin and follow-up INR. Patient remains on the Eraxis Repeat urine analysis still abnormal, urine culture is pending. Plan to discontinue Caldwell catheter and bladder check 07/12/2023 pt is still not eating much despite encouragement , last week she passed swallow evaluation because she was losing muscle back in her throat, she was placed on chopped diet however still her appetite is poor. The patient is on the case and she is prescribed Ensure and other encouragement. However patient denies nausea. Discussed with staff we are going to do call for nutrition consult since she has prolonged malnutrition she might benefit from parenteral or other form of enteral feeding like via NG tube. Otherwise we expect patient to continue to deteriorate. Patient has this gallbladder mass, surgery team on the case and they patient poor surgical candidate. Family also declines surgical intervention like debridement of her sacral wound. Her abdomen is soft and there is no RUQ tenderness or pain. She remains on Eraxis. Urine culture is repeated. Still pending. Caldwell catheter was discontinued yesterday and she was retaining more than 300 last night and she had to be straight cath. We contacted [facility] and if still continued to do rate then we may consider replacing the Caldwell catheter in again. Fecal management system is leaking and there is no obvious diarrhea currently there probably can be discontinued and monitored. She remains on Coumadin. INR still subtherapeutic. Patient still on leukocytosis and she is covered with Eraxis but there is no fever Procalcitonin is checked and is mildly coming down 1.1 down from 0.8. For more than a week indicating persistent abnormality Discussed with the bedside nurse and pillowcase cleaner. 07/13/23: Patient seen and evaluated bedside, blood work reviewed, serum chemistry reviewed, sodium 136 creatinine 1.9 liver profile trending down, INR 1.1, care plan discussed with daughter at bedside, dose of Synthyroid increase started on appetite stimulant 07/14/23: Patient seen and evaluated bedside overnight patient had episode of hypotension, Lasix placed on hold patient given fluid bolus, dose of midodrine increased to 10 mg 3 times daily as well. Blood work reviewed including CBC and hemoglobin remained stable electrolyte panel reviewed as well. Patient does have preserved ejection fraction with EF of around 70% that was checked earlier in the hospitalization Assessment and plan Acute hypoxic respiratory failure due to asthma exacerbation; requiring 6L and has weaned to room air. Non-ST elevation NV Left abdominal rectus sheath hematoma Acute on chronic diastolic heart failure; Moderate to severe mitral calcification, moderate to severe mitral stenosis, mild aortic regurgitation and stenosis, Pulmonary hypertension WHO class II. Hyperkalemia normalized Anemia iron deficient with acute blood loss anemia from the left rectus sheath hematoma Acute transaminitis with concern for acute cholecystitis, HIDA scan normal. Not a surgical candidate at this time. Acute UTI with sepsis POA. Acute kidney injury Recent hospitalization for COVID in May, PCR still positive; not in active infection. Warfarin toxicity resolved. Paroxysmal atrial fibrillation currently maintaining normal sinus rhyhtm. History of coronary artery disease with previous PCI/stent x3 History of hyperlipidemia History of hypertension Rheumatoid arthritis History of hypothyroidism Mild protein calorie malnutrition Stage 2 pressure injury on right and left buttock present on admission Sacral decubitus ulcer, unstageable present on admission. Lifelong non-smoker Plan * In regards to atrial fibrillation patient was started on amiodarone and Coumadin however amiodarone was discontinued and patient was transition to dronedarone , continue telemonitoring * In regards to [id number] continue patient on midodrine for blood pressure support, Lasix placed on hold on 07/13 * In regards to urinary tract infection and pneumonia , was on cefepime, completed antibiotic course * In regards to anemia patient given IV iron replacement s/p 1 unit of packed RBC hemoglobin improved, * In regards to rectus sheath hematoma and anemia >> Coumadin will be resumed 07/07 follow-up on INR 1.2, monitor hemoglobin * In regards to generalized debility and dysphagia patient seen by speech therapy as well as physical therapy patient was started on amiodarone and warfarin back on 06/18 due to findings of atrial fibrillation with RVR and severe mitral stenosis. Cardiology has concerns for interstitial lung disease and amiodarone has been discontinued. Patient has been started on dronedarone. * In regards to hypothyroidism continue patient on Synthyroid follow-up on TSH in 4 weeks * In regards to malnutrition patient started on Megace * Due to multiple complex medical issues, overall prognosis is guarded Objective - Vital Signs Vital signs: Vital Signs Temp 97.6 F 07/14/23 07:52 Pulse 62 07/14/23 07:52 Resp 15 07/14/23 07:52 BP 90/36 07/14/23 07:52 Pulse Ox 95 07/14/23 07:52 FiO2 21 07/05/23 07:54 Intake & Output 07/13/23 07/14/23 07/14/23 18:59 06:59 18:59 Output Total 400 750 Balance -400 -750 Weight 56.5 kg Output: Urine 400 750 Other: Voiding Method Indwelling Catheter # Bowel Movements 2 2 2 - Labs CBC & Chem 7: 07/14/23 09:24 07/14/23 04:52 Labs: Abnormal Lab Results - Last 24 Hours (Table) 07/13/23 07/13/23 07/14/23 Range/Units 16:24 20:48 04:52 WBC (3.8-10.6) k/uL RBC (3.80-5.40) m/uL Hgb (11.4-16.0) gm/dL Hct (34.0-46.0) % MCV (80.0-100.0) fL MCHC (31.0-37.0) g/dL RDW (11.5-15.5) % PT 13.0 H (10.0-12.5) sec INR 1.2 H (<1.2) Sodium (137-145) mmol/L Chloride (98-107) mmol/L Carbon Dioxide (22-30) mmol/L BUN (7-17) mg/dL Creatinine (0.52-1.04) mg/dL POC Glucose (mg/dL) 117 H 134 H (70-110) mg/dL Calcium (8.4-10.2) mg/dL 07/14/23 07/14/23 Range/Units 04:52 09:24 WBC 12.7 H (3.8-10.6) k/uL RBC 2.64 L (3.80-5.40) m/uL Hgb 8.1 L (11.4-16.0) gm/dL Hct 27.2 L (34.0-46.0) % MCV 102.8 H D (80.0-100.0) fL MCHC 29.7 L (31.0-37.0) g/dL RDW 18.9 H (11.5-15.5) % PT (10.0-12.5) sec INR (<1.2) Sodium 135 L (137-145) mmol/L Chloride 110 H (98-107) mmol/L Carbon Dioxide 19 L (22-30) mmol/L BUN 71 H (7-17) mg/dL Creatinine 1.68 H (0.52-1.04) mg/dL POC Glucose (mg/dL) (70-110) mg/dL Calcium 8.2 L (8.4-10.2) mg/dL Microbiology - Last 24 Hours (Table) 07/10/23 14:40 Blood Culture - Preliminary Blood 07/10/23 21:33 Urine Culture - Final Urine,Voided Chaparrita albicans Enterococcus gallinarum
[2023-07-14 16:28] LABS: Glucose,Whole Blood 143 mg/dL (70-110)
[2023-07-14] MEDS: DAPTOMYCIN IVPB SCH (17:42)
[2023-07-14] MEDS: SODIUM CHLORIDE 0.9% IVPB SCH (17:42)
[2023-07-14] MEDS: WARFARIN 2 MG TAB PO ONE (17:45)
--- NOTE | 2023-07-14 18:10 | P.PN ---
Subjective Progress Note Date: 07/13/23 Principal diagnosis: Reason for follow-up is sepsis UTI/pneumonia Patient is a 82-year-old female with a past medical history significant for hypertension hyperlipidemia mitral valve prolapse rheumatoid arthritis heart failure patient has been brought into the hospital for evaluation of increasing shortness of breath patient was initially admitted to the ICU concerning for sepsis secondary to possible pneumonia/UTI versus hepatobiliary source. On today's evaluation that is 07/13/2023,the patient denies any fever or any chills, patient is breathing comfortably on room air, the patient denies chest pain shortness of breath and no significant cough, patient denies abdominal pain, no nausea vomiting or any worsening diarrhea reported by the nursing staff. No CBC was done today patient did have a creatinine of 1.9 Objective - Vital Signs Vital signs: Vital Signs Temp 98.0 F 07/13/23 07:36 Pulse 62 07/13/23 08:44 Resp 17 07/13/23 07:36 BP 114/62 07/13/23 07:36 Pulse Ox 100 07/13/23 08:33 FiO2 21 07/05/23 07:54 Intake & Output 07/12/23 07/13/23 07/13/23 18:59 06:59 18:59 Intake Total 450 Output Total 975 Balance 450 -975 Weight 56 kg Intake: Oral 450 Output: Urine 975 Other: Voiding Method Indwelling Catheter Indwelling Catheter # Voids 2 # Bowel Movements 3 - Exam GENERAL DESCRIPTION: An elderly female lying in bed in no distress RESPIRATORY SYSTEM: Unlabored breathing , decreased breath sounds at bases HEART: S1 S2 regular rate and rhythm , ABDOMEN: Soft , mild distention but no tenderness EXTREMITIES: No edema feet Patient did have a stage II pressure ulcer to the right gluteal and sacral area with some slough tissue - Labs CBC & Chem 7: 07/14/23 09:24 07/14/23 04:52 Labs: Abnormal Lab Results - Last 24 Hours (Table) 07/12/23 07/12/23 07/12/23 Range/Units 06:49 06:49 06:49 WBC 14.09 H (4.50-10.00) X 10*3/uL RBC 2.71 L (4.10-5.20) X 10*6/uL Hgb 8.3 L (12.0-15.0) g/dL Hct 27.4 L (37.2-46.3) % MCV 101.1 H (80.0-97.0) FL MCHC 30.3 L (32.0-37.0) g/dL RDW 19.4 H (11.5-14.5) % Neutrophils # (Manual) 11.98 H (1.80-7.70) X 10*3/uL Monocytes # (Manual) 0.14 L (0.20-1.00) X 10*3/uL Eosinophils # (Manual) 0 L (0.04-0.35) X 10*3/uL NRBC/100 WBC Diff 0.04 H (0.00-0.01) X 10*3/uL Sodium 131 L (135-145) mmol/L Carbon Dioxide 20.3 L (21.6-31.8) mmol/L BUN 67.9 H (9.0-27.0) mg/dL Creatinine 1.9 H (0.6-1.5) mg/dL Est GFR (CKD-EPI) 26 L (>=60) BUN/Creatinine Ratio 35.74 H (12.00-20.00) Ratio POC Glucose (mg/dL) (70-110) mg/dL Calcium 8.4 L (8.7-10.3) mg/dL Total Bilirubin <0.2 L (0.3-1.2) mg/dL AST 53 H (13-35) U/L ALT 102 H (8-44) U/L Alkaline Phosphatase 164 H (41-126) U/L C-Reactive Protein 6.50 H (0.00-0.80) mg/dL Total Protein 4.9 L (6.2-8.2) g/dL Albumin 2.0 L (3.8-4.9) g/dL Albumin/Globulin Ratio 0.69 L (1.60-3.17) Ratio Procalcitonin 0.75 H (0.02-0.09) ng/mL TSH (0.350-5.500) UIU/ML Free T4 (0.80-1.80) ng/dL 07/12/23 07/12/23 07/12/23 Range/Units 06:49 11:45 13:17 WBC (4.50-10.00) X 10*3/uL RBC (4.10-5.20) X 10*6/uL Hgb (12.0-15.0) g/dL Hct (37.2-46.3) % MCV (80.0-97.0) FL MCHC (32.0-37.0) g/dL RDW (11.5-14.5) % Neutrophils # (Manual) (1.80-7.70) X 10*3/uL Monocytes # (Manual) (0.20-1.00) X 10*3/uL Eosinophils # (Manual) (0.04-0.35) X 10*3/uL NRBC/100 WBC Diff (0.00-0.01) X 10*3/uL Sodium (135-145) mmol/L Carbon Dioxide (21.6-31.8) mmol/L BUN (9.0-27.0) mg/dL Creatinine (0.6-1.5) mg/dL Est GFR (CKD-EPI) (>=60) BUN/Creatinine Ratio (12.00-20.00) Ratio POC Glucose (mg/dL) 353 H 233 H (70-110) mg/dL Calcium (8.7-10.3) mg/dL Total Bilirubin (0.3-1.2) mg/dL AST (13-35) U/L ALT (8-44) U/L Alkaline Phosphatase (41-126) U/L C-Reactive Protein (0.00-0.80) mg/dL Total Protein (6.2-8.2) g/dL Albumin (3.8-4.9) g/dL Albumin/Globulin Ratio (1.60-3.17) Ratio Procalcitonin (0.02-0.09) ng/mL TSH 86.100 H (0.350-5.500) UIU/ML Free T4 0.18 L (0.80-1.80) ng/dL 07/12/23 07/12/23 07/13/23 Range/Units 16:45 21:36 06:10 WBC (4.50-10.00) X 10*3/uL RBC (4.10-5.20) X 10*6/uL Hgb (12.0-15.0) g/dL Hct (37.2-46.3) % MCV (80.0-97.0) FL MCHC (32.0-37.0) g/dL RDW (11.5-14.5) % Neutrophils # (Manual) (1.80-7.70) X 10*3/uL Monocytes # (Manual) (0.20-1.00) X 10*3/uL Eosinophils # (Manual) (0.04-0.35) X 10*3/uL NRBC/100 WBC Diff (0.00-0.01) X 10*3/uL Sodium (135-145) mmol/L Carbon Dioxide 18.6 L (21.6-31.8) mmol/L BUN 65.5 H (9.0-27.0) mg/dL Creatinine 1.9 H (0.6-1.5) mg/dL Est GFR (CKD-EPI) 26 L (>=60) BUN/Creatinine Ratio 34.47 H (12.00-20.00) Ratio POC Glucose (mg/dL) 147 H 148 H (70-110) mg/dL Calcium 8.4 L (8.7-10.3) mg/dL Total Bilirubin <0.2 L (0.3-1.2) mg/dL AST 39 H (13-35) U/L ALT 77 H (8-44) U/L Alkaline Phosphatase 138 H (41-126) U/L C-Reactive Protein (0.00-0.80) mg/dL Total Protein 4.7 L (6.2-8.2) g/dL Albumin 2.2 L (3.8-4.9) g/dL Albumin/Globulin Ratio 0.88 L (1.60-3.17) Ratio Procalcitonin (0.02-0.09) ng/mL TSH (0.350-5.500) UIU/ML Free T4 (0.80-1.80) ng/dL Microbiology - Last 24 Hours (Table) 07/10/23 14:40 Blood Culture - Preliminary Blood 07/10/23 21:33 Urine Culture - Preliminary Urine,Voided Chaparrita albicans Assessment and Plan (1) UTI (urinary tract infection) Current Visit: Yes Status: Acute Code(s): N39.0 - URINARY TRACT INFECTION, SITE NOT SPECIFIED SNOMED Code(s): 90638223 (2) Elevated liver enzymes Current Visit: Yes Status: Acute Code(s): R74.8 - ABNORMAL LEVELS OF OTHER SERUM ENZYMES SNOMED Code(s): 049054195 (3) Pneumonia Current Visit: Yes Status: Acute Code(s): J18.9 - PNEUMONIA, UNSPECIFIED ORGANISM SNOMED Code(s): 174517591 (4) Leukocytosis Current Visit: No Status: Acute Code(s): D72.829 - ELEVATED WHITE BLOOD CELL COUNT, UNSPECIFIED SNOMED Code(s): 028254481 (5) Diarrhea Current Visit: Yes Status: Acute Code(s): R19.7 - DIARRHEA, UNSPECIFIED SNOMED Code(s): 63352726 Plan: 1patient with leukocytosis which is likely related to catheter assisted UTI with urine culture currently growing Chaparrita unfortunately we are not able to use Diflucan because of her cardiac medication and interaction cardiology has been reconsulted to see if we can use Diflucan with her current cardiac medication, nursing staff to contact cardiology service today we will repeat a CBC with a.m. lab 5-patient did have a stage II sacral pressure ulcer to the right gluteal and sacral area local care with the Medihoney followed by moist dressing keep the area of the pressure Dictation was produced using [employer] dictation software. please excuse any grammatical, word or spelling errors. Time with Patient: Less than 30
--- NOTE | 2023-07-14 18:11 | P.PN ---
Subjective Progress Note Date: 07/14/23 Principal diagnosis: Reason for follow-up is sepsis UTI/pneumonia Patient is a 82-year-old female with a past medical history significant for hypertension hyperlipidemia mitral valve prolapse rheumatoid arthritis heart failure patient has been brought into the hospital for evaluation of increasing shortness of breath patient was initially admitted to the ICU concerning for sepsis secondary to possible pneumonia/UTI versus hepatobiliary source. On today's evaluation that is 07/14/2023,the patient remains to be afebrile, patient is on room air not requiring supplemental oxygen and denies any shortness of breath no chest pain or cough.Patient denies having any nausea or vomiting, no abdominal pain and did have improvement in her diarrhea fecal management system is out. Patient white count is down to 12.7, creatinine is 1.68 urine culture growing VRE Objective - Vital Signs Vital signs: Vital Signs Temp 97.0 F L 07/14/23 14:00 Pulse 74 07/14/23 14:00 Resp 15 07/14/23 14:00 BP 96/44 07/14/23 14:00 Pulse Ox 95 07/14/23 14:00 FiO2 21 07/05/23 07:54 Intake & Output 07/13/23 07/14/23 07/14/23 18:59 06:59 18:59 Output Total 400 750 Balance -400 -750 Weight 56.5 kg Output: Urine 400 750 Other: Voiding Method Indwelling Catheter Indwelling Catheter # Bowel Movements 2 2 2 - Exam GENERAL DESCRIPTION: An elderly female lying in bed in no distress RESPIRATORY SYSTEM: Unlabored breathing , decreased breath sounds at bases HEART: S1 S2 regular rate and rhythm , ABDOMEN: Soft , mild distention but no tenderness EXTREMITIES: No edema feet Patient did have a stage II pressure ulcer to the right gluteal and sacral area with some slough tissue - Labs CBC & Chem 7: 07/14/23 09:24 07/14/23 04:52 Labs: Abnormal Lab Results - Last 24 Hours (Table) 07/13/23 07/13/23 07/14/23 Range/Units 16:24 20:48 04:52 WBC (3.8-10.6) k/uL RBC (3.80-5.40) m/uL Hgb (11.4-16.0) gm/dL Hct (34.0-46.0) % MCV (80.0-100.0) fL MCHC (31.0-37.0) g/dL RDW (11.5-15.5) % PT 13.0 H (10.0-12.5) sec INR 1.2 H (<1.2) Sodium (137-145) mmol/L Chloride (98-107) mmol/L Carbon Dioxide (22-30) mmol/L BUN (7-17) mg/dL Creatinine (0.52-1.04) mg/dL POC Glucose (mg/dL) 117 H 134 H (70-110) mg/dL Calcium (8.4-10.2) mg/dL 07/14/23 07/14/23 07/14/23 Range/Units 04:52 09:24 11:11 WBC 12.7 H (3.8-10.6) k/uL RBC 2.64 L (3.80-5.40) m/uL Hgb 8.1 L (11.4-16.0) gm/dL Hct 27.2 L (34.0-46.0) % MCV 102.8 H D (80.0-100.0) fL MCHC 29.7 L (31.0-37.0) g/dL RDW 18.9 H (11.5-15.5) % PT (10.0-12.5) sec INR (<1.2) Sodium 135 L (137-145) mmol/L Chloride 110 H (98-107) mmol/L Carbon Dioxide 19 L (22-30) mmol/L BUN 71 H (7-17) mg/dL Creatinine 1.68 H (0.52-1.04) mg/dL POC Glucose (mg/dL) 191 H (70-110) mg/dL Calcium 8.2 L (8.4-10.2) mg/dL Microbiology - Last 24 Hours (Table) 07/10/23 14:40 Blood Culture - Preliminary Blood 07/10/23 21:33 Urine Culture - Final Urine,Voided Chaparrita albicans Enterococcus gallinarum Assessment and Plan (1) UTI (urinary tract infection) Current Visit: Yes Status: Acute Code(s): N39.0 - URINARY TRACT INFECTION, SITE NOT SPECIFIED SNOMED Code(s): 91550217 (2) Elevated liver enzymes Current Visit: Yes Status: Acute Code(s): R74.8 - ABNORMAL LEVELS OF OTHER SERUM ENZYMES SNOMED Code(s): 381043420 (3) Pneumonia Current Visit: Yes Status: Acute Code(s): J18.9 - PNEUMONIA, UNSPECIFIED ORGANISM SNOMED Code(s): 448138745 (4) Leukocytosis Current Visit: No Status: Acute Code(s): D72.829 - ELEVATED WHITE BLOOD CELL COUNT, UNSPECIFIED SNOMED Code(s): 499223253 (5) Diarrhea Current Visit: Yes Status: Acute Code(s): R19.7 - DIARRHEA, UNSPECIFIED SNOMED Code(s): 73170803 Plan: 1-patient did have a stage II sacral pressure ulcer to the right gluteal and sacral area local care with the Medihoney followed by moist dressing keep the area of the pressure 2-patient with leukocytosis which is likely related to catheter assisted UTI with urine culture currently growing Chaparrita unfortunately we are not able to use Diflucan because of her cardiac medication and interaction cardiology clearance is pending her urine culture also showing a VRE will add daptomycin and repeat a CBC with a.m. lab Dictation was produced using Stream dictation software. please excuse any grammatical, word or spelling errors. Time with Patient: Less than 30
--- NOTE | 2023-07-14 18:13 | P.PN ---
Subjective Progress Note Date: 07/14/23 Patient's family is at bedside. They report that she has low appetite. They also report she had a chest x-ray and ultrasound at bedside. She is on full liquid diet. Health care team also reports patient had purulent drainage from the rectum. Abdomen: No peritonitis. Studies: Chest x-ray independently reviewed demonstrate multiple bilateral pulmonary infiltrates. This is my independent interpretation. Ultrasound of the abdomen demonstrates bilateral kidneys without hydronephrosis. This is my independent interpretation. CT of the abdomen pelvis independently reviewed demonstrates questionable mass/fluid collection along the left lower abdominal wall. Features of gallstones identified. Questionable inflammatory changes involving the sigmoid colon. Plan: 1. Continue antibiotics. 2. Patient elevated risk for surgical intervention with regards to her gallbladder. 3. Monitor signs of rectal bleeding with recent drainage from the rectum. Objective - Vital Signs Vital signs: Vital Signs Temp 97.0 F L 07/14/23 14:00 Pulse 62 07/14/23 16:24 Resp 15 07/14/23 14:00 BP 102/51 07/14/23 18:00 Pulse Ox 95 07/14/23 14:00 FiO2 21 07/05/23 07:54 Intake & Output 07/13/23 07/14/23 07/14/23 18:59 06:59 18:59 Output Total 400 750 Balance -400 -750 Weight 56.5 kg Output: Urine 400 750 Other: Voiding Method Indwelling Catheter Indwelling Catheter # Bowel Movements 2 2 2 - Labs CBC & Chem 7: 07/14/23 09:24 07/14/23 04:52 Labs: Abnormal Lab Results - Last 24 Hours (Table) 07/13/23 07/14/23 07/14/23 Range/Units 20:48 04:52 04:52 WBC (3.8-10.6) k/uL RBC (3.80-5.40) m/uL Hgb (11.4-16.0) gm/dL Hct (34.0-46.0) % MCV (80.0-100.0) fL MCHC (31.0-37.0) g/dL RDW (11.5-15.5) % PT 13.0 H (10.0-12.5) sec INR 1.2 H (<1.2) Sodium 135 L (137-145) mmol/L Chloride 110 H (98-107) mmol/L Carbon Dioxide 19 L (22-30) mmol/L BUN 71 H (7-17) mg/dL Creatinine 1.68 H (0.52-1.04) mg/dL POC Glucose (mg/dL) 134 H (70-110) mg/dL Calcium 8.2 L (8.4-10.2) mg/dL 07/14/23 07/14/23 07/14/23 Range/Units 09:24 11:11 16:27 WBC 12.7 H (3.8-10.6) k/uL RBC 2.64 L (3.80-5.40) m/uL Hgb 8.1 L (11.4-16.0) gm/dL Hct 27.2 L (34.0-46.0) % MCV 102.8 H D (80.0-100.0) fL MCHC 29.7 L (31.0-37.0) g/dL RDW 18.9 H (11.5-15.5) % PT (10.0-12.5) sec INR (<1.2) Sodium (137-145) mmol/L Chloride (98-107) mmol/L Carbon Dioxide (22-30) mmol/L BUN (7-17) mg/dL Creatinine (0.52-1.04) mg/dL POC Glucose (mg/dL) 191 H 143 H (70-110) mg/dL Calcium (8.4-10.2) mg/dL Microbiology - Last 24 Hours (Table) 07/10/23 14:40 Blood Culture - Preliminary Blood 07/10/23 21:33 Urine Culture - Final Urine,Voided Chaparrita albicans Enterococcus gallinarum
[2023-07-14 20:56] LABS: Glucose,Whole Blood 105 mg/dL (70-110)
[2023-07-15 06:08] LABS: Glucose,Whole Blood 100 mg/dL (70-110)
[2023-07-15 06:37] LABS: INR 1.4 (<1.2); Prothrombin Time 14.4 sec (10.0-12.5)
[2023-07-15 08:37] LABS: BUN/Creat Ratio 39.38 Ratio (12.00-20.00); Carbon Dioxide 19.2 mmol/L (21.6-31.8); Chloride 108 mmol/L (96-109); Glucose 80 mg/dL (70-110); Magnesium 1.9 mg/dL (1.5-2.4); Sodium 137 mmol/L (135-145)
[2023-07-15 08:38] LABS: Calcium 7.8 mg/dL (8.7-10.3)
[2023-07-15 09:58] LABS: Basophils # (A) 0.04 X 10*3/uL (0.00-0.10); Basophils % (A) 0.4 %; Eosinophils # (A) 0.03 X 10*3/uL (0.04-0.35); Eosinophils % (A) 0.3 %; HCT 22.5 % (37.2-46.3); HGB 7.1 g/dL (12.0-15.0); Lymphocytes # (A) 1.33 X 10*3/uL (0.90-5.00); Lymphocytes % (A) 13.1 %; MCH 30.9 pg (27.0-32.0); MCHC 31.6 g/dL (32.0-37.0); MCV 97.8 FL (80.0-97.0); Mean Platelet Volume 10.3 FL (9.5-12.2); Monocytes # (A) 0.85 X 10*3/uL (0.20-1.00); Monocytes % (A) 8.3 %; NRBC Per 100 WBC 0.03 X 10*3/uL (0.00-0.01); Neutrophils # (A) 7.54 X 10*3/uL (1.80-7.70); Neutrophils % (A) 74.1 %; Platelet Count 124 X 10*3/uL (140-440); RDW 19.9 % (11.5-14.5); WBC 10.18 X 10*3/uL (4.50-10.00)
--- NOTE | 2023-07-15 10:51 | P.PN ---
Subjective Patient is seen in follow-up for acute kidney injury. Renal function stable. Currently on oral Lasix. Oral intake fair. Nonoliguric. Remains quite lethargic. Vital signs are stable. General: No acute distress. HEENT: Head exam is unremarkable. LUNGS: No audible rhonchi or wheezes. HEART: Rate and Rhythm are regular. ABDOMEN: Nontender. EXTREMITITES: 1+ edema. Objective - Vital Signs Vital signs: Vital Signs Temp 97.6 F 07/15/23 07:18 Pulse 76 07/15/23 07:18 Resp 20 07/15/23 07:18 BP 89/50 07/15/23 08:55 Pulse Ox 94 L 07/15/23 07:18 FiO2 21 07/05/23 07:54 Intake & Output 07/14/23 07/15/23 07/15/23 18:59 06:59 18:59 Output Total 200 550 Balance -200 -550 Weight 56 kg Output: Urine 200 550 Other: Voiding Method Indwelling Catheter Indwelling Catheter Indwelling Catheter # Bowel Movements 2 3 - Labs CBC & Chem 7: 07/15/23 05:37 07/15/23 05:37 Labs: Abnormal Lab Results - Last 24 Hours (Table) 07/14/23 07/14/23 07/15/23 Range/Units 11:11 16:27 05:37 WBC (4.50-10.00) X 10*3/uL RBC (4.10-5.20) X 10*6/uL Hgb (12.0-15.0) g/dL Hct (37.2-46.3) % MCV (80.0-97.0) FL MCHC (32.0-37.0) g/dL RDW (11.5-14.5) % Plt Count (140-440) X 10*3/uL Immature Gran # (0.00-0.04) X 10*3/uL Eosinophils # (0.04-0.35) X 10*3/uL NRBC/100 WBC Diff (0.00-0.01) X 10*3/uL PT 14.4 H (10.0-12.5) sec INR 1.4 H (<1.2) Carbon Dioxide (21.6-31.8) mmol/L BUN (9.0-27.0) mg/dL Creatinine (0.6-1.5) mg/dL Est GFR (CKD-EPI) (>=60) BUN/Creatinine Ratio (12.00-20.00) Ratio POC Glucose (mg/dL) 191 H 143 H (70-110) mg/dL Calcium (8.7-10.3) mg/dL 07/15/23 07/15/23 Range/Units 05:37 05:37 WBC 10.18 H (4.50-10.00) X 10*3/uL RBC 2.30 L (4.10-5.20) X 10*6/uL Hgb 7.1 L (12.0-15.0) g/dL Hct 22.5 L (37.2-46.3) % MCV 97.8 H (80.0-97.0) FL MCHC 31.6 L (32.0-37.0) g/dL RDW 19.9 H (11.5-14.5) % Plt Count 124 L (140-440) X 10*3/uL Immature Gran # 0.39 H (0.00-0.04) X 10*3/uL Eosinophils # 0.03 L (0.04-0.35) X 10*3/uL NRBC/100 WBC Diff 0.03 H (0.00-0.01) X 10*3/uL PT (10.0-12.5) sec INR (<1.2) Carbon Dioxide 19.2 L (21.6-31.8) mmol/L BUN 63.0 H (9.0-27.0) mg/dL Creatinine 1.6 H (0.6-1.5) mg/dL Est GFR (CKD-EPI) 32 L (>=60) BUN/Creatinine Ratio 39.38 H (12.00-20.00) Ratio POC Glucose (mg/dL) (70-110) mg/dL Calcium 7.8 L (8.7-10.3) mg/dL Assessment and Plan Plan: Assessment: 1. Acute kidney injury secondary to ATN secondary to severe sepsis. Was also on Bactrim prior to admission. No hydronephrosis noted on kidney ultrasound/CT. Renal function better. Nonoliguric. 2. Chronic diastolic CHF with severe pulmonary hypertension, mild to moderate aortic stenosis, moderate aortic regurgitation, severe mitral stenosis. 3. Hyperkalemia secondary to acute kidney injury on Bactrim. Improved. 4. Volume overload. On Lasix. 5. Acute blood loss anemia. Status post blood transfusion this admission. Also received IV iron. On Aranesp. Defer blood transfusions to primary team and surgery. 6. Hyponatremia from poor solute intake. Hypervolemic. 7. Acute COVID infection. 8. Left abdominal rectus sheath hematoma. Surgery following. 9. Hypervolemic hyponatremia. Better. 10. Protein calorie malnutrition with albumin level of 2.0. s/p IV albumin 07/12/23. 11. Urinary retention. Caldwell catheter had to be reinserted. On Flomax. 12. Metabolic acidosis secondary to acute kidney injury. On oral bicarb. Stable. Plan: Lasix held due to low blood pressures. Encouraged oral intake. Maintain 1500 cc fluid restriction. Avoid nephrotoxins. Continue to monitor renal function and urine output. Maintain midodrine. Hold for systolic blood pressure greater than 110. A.m. cortisol level not low. Prognosis guarded.
[2023-07-15 11:17] LABS: Glucose,Whole Blood 167 mg/dL (70-110)
--- NOTE | 2023-07-15 13:25 | P.PN ---
Subjective Progress Note Date: 07/15/23 82-year-old lady with past medical history significant for congestive heart failure, atrial fibrillation with RVR,presented to the ER because of worsening shortness of breath. Patient was only recently discharged on 06/25 after being treated in the hospital for similar complaints.after discharge, patient was all right for 1 day but started noticing that she was getting more short of breath on exertion. Patient denied any chest pain. There was no complain of orthopnea or PND. There was no complain of swelling of feet. There was no complain of fever or chills. Patient oxygen requirements were also increasing so she was transferred back to the ER Initial lab work done in the ER showed WBC 28, hemoglobin 10.5, platelet count 332, INR 3.7, sodium 138, potassium 6.2, BUN 79, creatinine1.71, AST 378, ALT 350, troponin 0.247 EKG done in the ER showed heart rate of 81 , no ST segment elevation or depression seen, no T-wave inversions seen. Chest x-ray done in the ER showed cardiomegaly and moderate vascular congestion Patient admitted to internal medicine service 06/29. Patient seen and examined. Blood work done this morning showed WBC 19.8, hemoglobin 8.6, sodium 135, potassium 4.4, BUN 70, creatinine 1.21. Ox requirements have improved, currently on 6 L of oxygen. Patient is much more talkative compared to yesterday. Answering questions. 07/01/2023 Patient examined today in follow up. Remains on 6L of oxygen, more awake and alert. She continues on clear liquid diet which will be upgraded pending speech therapy recommendations as there is concern for aspiration. Indwelling catheter remains in place for urinary retention with concern for acute UTI which family feels was caused from the IDC placed prior to her previous discharge. She has been started on cefepime and vancomycin with concern for sepsis. White blood cell count has normalized to 5.7. Hemoglobin 7.1. INR 6.4 and warfarin remains on hold. Renal function stable. LFTs remain significantly elevated. 07/02/2023 Patient is evaluated today on the medical floor. Weaned down to 4L of oxygen. LFTs remain elevated. Gallbladder ultrasound completed revealing hepatic steatosis with ascites adjacent to the liver suspected. Echogenic materinal within the gallbladder lumen with masslike appearance. Borderline wall t hickening. Hemoglobin 6.9 today. Patient will receive 1 unit of blood. Covid PCR positive. 07/03/2023 Patient continues to report feeling fatigued. Was able to be weaned down to 2L of oxygen. Does have visible bruising over the left abdomen. Had abdominal pelvis CT done today which reveals a 6.8 x 2.6 x 12 cm left abdominal rectus hematoma. INR has improved down to 1.2 and this will likely only need conservative management however general surgery was consulted. There is also mention of distended gallbladder although no mention of an acute cholecystitis, dilated ducted. Patient has consistently elevated LFTs this could be due to infection however general surgery recommending HIDA scan. Left ankle xray was completed due to the bruising and mild soft tissue swelling patient states this was injured end of March when she fell. There is no acute fracture noted and patient would benefit from icing and elevation as well as light compression. 07/04/2023 Patient is evaluated on the medical floor. Continues to feel fatigued. Has not been out of bed much and has fair appetite. Family has been coming to assist with meal time feeding. General surgery following for the rectus sheath hematoma and INR has normalized and patient is being monitored off coumadin at this time. HIDA scan completed for further evaluation of the gallbladder which was normal. Recommendations for cholecystectomy however after cardiology re-evaluation felt patient was high risk for surgery. Patient has significant valvular heart disease and there is concern for possible interstitial lung disease she will be taken off the amiodarone at this time. Hemoglobin is stable at 8.7. 07/05/2023 Patient is evaluated today sitting up in the chair with at the bedside. Patient has been more awake and alert and has increased appetite. Family has been coming in to help her at every meal. Hemoglobin stable at 8.6. Patient is continued on IV cefepime with ID following closely. Not a surgical candidate. Abdominal bruising improving. IDC remains and family has concerns and would like it removed before discharge to rehab. Patient remains off coumadin at this time with general surgery recommendations to continue holding. INR 1.0 today. 07/06/2023 Patient is seen and evaluated in follow-up this morning currently sitting up in bed asleep although arousable. Patient reports feeling tired and denies any sig nificant pain. General surgery following with no plans of surgical intervention given significant comorbidities and not a surgical candidate. Patient is continued on IV antibiotics with infectious disease following. Nephrology following as well and patient is maintained on fluid restrictions. Oral intake remains poor to fair and is being encouraged to attempt to eat small frequent meals. Patient is currently maintaining oxygen saturations above 90% on room air and pulmonary is following closely. Awaiting PT/OT therapy to reevaluate patient will most definitely need rehab on discharge. 07/07/23 : Patient seen and evaluated at bedside, vitals reviewed, blood work reviewed. CBC showed hemoglobin of 8.8, WBC 12, platelet count 189. Serum chemistry showed sodium 137 potassium 4.3 BUN 52 creatinine 1.2 magnesium of 1.6, patient does complain of nausea, continue to hold Coumadin till hemoglobin stabilized 07/08/23 : Patient seen and evaluated bedside, patient started back on Coumadin hemoglobin 8.8 remained stable, serum chemistry reviewed creatinine 1.09, sodium 136 potassium 3.9 calcium 8.1. Liver profile shows trending down of AST and ALT 07/09/23: Seen and evaluated at bedside, blood work reviewed, WBC 12.8 hemoglobin 7.9, serum chemistry reviewed sodium 134 creatinine 1.2, INR 1.1. Continue to remain on IV antibiotics, patient does have diarrhea and does have fecal manag ement system in place, C. difficile was negative continue patient on Lomotil along with cholestyramine I am resuming the care of the patient today 07/10/2023 Dr Scherer Patient awake and alert, feels very weak and tired and lethargic She follows commands and answers questions appropriately She has mild abdominal distention, she has ongoing diarrhea, C. difficile has been negative and patient placed on antimotility medication like Lomotil Also patient has mild left ankle swelling and bruise, patient denies falling, x- rays requested ( had negative xray about one week ago) Blood pressure chronically borderline, afebrile and rest of vital stable, Labs reviewed, INR 1.1, has leukocytosis of 15.2, hemoglobin slightly low at 7.9 down to 7.7. Creatinine pending pt currentlyon Eraxis, Coumadin and cholestyramine and Lasix 40 mg discussed with the bedside daughter at bedside and she verbalized understanding and acceptance Discussed with staff 07/11/2023 Patient awake alert, she is slightly drowsy, she slept more than 3 hours this morning, daughter at bedside and patient she is still sleepy although she is improving compared to yesterday Patient herself feels fine. Daughter discussed with mother to discuss continue Zoloft for her sleepiness but patient's wants to keep it stating that it helped her become less anxious. Because the patient is more and oriented today. She is able to eat this morning. Yesterday she has some abdominal distention, KUB reviewed by myself showing gastric distention which is looks resolved now. Abdomen is not distended now. No bowel movement of diarrhea. She has mild bilateral leg edema and I believe this is given today. Blood pressure is at baseline, low normal with systolic 90-100. Resume Coumadin and follow-up INR. Patient remains on the Eraxis Repeat urine analysis still abnormal, urine culture is pending. Plan to discontinue Caldwell catheter and bladder check 07/12/2023 pt is still not eating much despite encouragement , last week she passed swallow evaluation because she was losing muscle back in her throat, she was placed on chopped diet however still her appetite is poor. The patient is on the case and she is prescribed Ensure and other encouragement. However patient denies nausea. Discussed with staff we are going to do call for nutrition consult since she has prolonged malnutrition she might benefit from parenteral or other form of enteral feeding like via NG tube. Otherwise we expect patient to continue to deteriorate. Patient has this gallbladder mass, surgery team on the case and they patient poor surgical candidate. Family also declines surgical intervention like debridement of her sacral wound. Her abdomen is soft and there is no RUQ tenderness or pain. She remains on Eraxis. Urine culture is repeated. Still pending. Caldwell catheter was discontinued yesterday and she was retaining more than 300 last night and she had to be straight cath. We contacted [facility] and if still continued to do rate then we may consider replacing the Caldwell catheter in again. Fecal management system is leaking and there is no obvious diarrhea currently there probably can be discontinued and monitored. She remains on Coumadin. INR still subtherapeutic. Patient still on leukocytosis and she is covered with Eraxis but there is no fever Procalcitonin is checked and is mildly coming down 1.1 down from 0.8. For more than a week indicating persistent abnormality Discussed with the bedside nurse and cyanide case hardener. 07/13/23: Patient seen and evaluated bedside, blood work reviewed, serum chemistry reviewed, sodium 136 creatinine 1.9 liver profile trending down, INR 1.1, care plan discussed with daughter at bedside, dose of Synthyroid increase started on appetite stimulant 07/14/23: Patient seen and evaluated bedside overnight patient had episode of hypotension, Lasix placed on hold patient given fluid bolus, dose of midodrine increased to 10 mg 3 times daily as well. Blood work reviewed including CBC and hemoglobin remained stable electrolyte panel reviewed as well. Patient does have preserved ejection fraction with EF of around 70% that was checked earlier in the hospitalization 07/15/23: Patient seen and evaluated bedside, blood work reviewed, hemoglobin 7.1, 1 unit of packed RBC ordered, follow-up on INR levels, 1.4, serum chemistry reviewed sodium 137 potassium 5, creatinine 1.6. Patient started on daptomycin by infectious culture growing VRE. Upon evaluation patient states she feels better, chills have improved as well does complain of weakness Assessment and plan * Left abdominal rectus sheath hematoma improved * Acute on chronic diastolic heart failure; Moderate to severe mitral calci fication, moderate to severe mitral stenosis, mild aortic regurgitation and stenosis, Pulmonary hypertension WHO class II. * Acute hypoxic respiratory failure due to asthma exacerbation; requiring 6L and has weaned to room air. * Non-ST elevation DE * Hyperkalemia RESOLVED * Anemia iron deficient with acute blood loss anemia from the left rectus sheath hematoma * Acute transaminitis with concern for acute cholecystitis, HIDA scan normal. Not a surgical candidate at this time. * Urinary tract infection with VRE * Acute kidney injury * Recent hospitalization for COVID in May, PCR still positive; not in active infection. * Supratherapeutic INR on admission while on Coumadin * Paroxysmal atrial fibrillation * History of coronary artery disease with previous PCI/stent x3 * History of hyperlipidemia * History of hypertension * Rheumatoid arthritis * History of hypothyroidism * Mild protein calorie malnutrition * Stage 2 pressure injury on right and left buttock present on admission * Sacral decubitus ulcer, unstageable present on admission. * Lifelong non-smoker Plan * In regards to atrial fibrillation patient was started on amiodarone and Coumadin however amiodarone was discontinued and patient was transition to dronedarone , continue telemonitoring * In regards to [id number] continue patient on midodrine for blood pressure support, Lasix placed on hold on 07/13 due to hypotension * In regards to urinary tract infection and pneumonia , was on cefepime, completed antibiotic course, already started on daptomycin by infectious disease secondary to VRE * In regards to anemia patient given IV iron replacement , received 1 unit of packed RBC earlier in hospitalization second unit ordered on 07/15/2023 * In regards to rectus sheath hematoma and anemia >> Coumadin resumed 07/07 follow-up on INR 1.4, monitor hemoglobin * In regards to generalized debility and dysphagia patient seen by speech therapy as well as physical therapy patient was started on amiodarone and warfarin back on 06/18 due to findings of atrial fibrillation with RVR and severe mitral stenosis. Cardiology has concerns for interstitial lung disease and amiodarone has been discontinued. Patient has been started on dronedarone. * In regards to hypothyroidism continue patient on Synthyroid follow-up on TSH in 4 weeks * In regards to malnutrition patient started on Megace * Due to multiple complex medical issues, overall prognosis is guarded Objective - Vital Signs Vital signs: Vital Signs Temp 97.6 F 07/15/23 07:18 Pulse 76 07/15/23 07:18 Resp 20 07/15/23 07:18 BP 89/50 07/15/23 08:55 Pulse Ox 94 L 07/15/23 07:18 FiO2 21 07/05/23 07:54 Intake & Output 07/14/23 07/15/23 07/15/23 18:59 06:59 18:59 Output Total 200 550 Balance -200 -550 Weight 56 kg Output: Urine 200 550 Other: Voiding Method Indwelling Catheter Indwelling Catheter # Bowel Movements 2 3 - Labs CBC & Chem 7: 07/15/23 05:37 07/15/23 05:37 Labs: Abnormal Lab Results - Last 24 Hours (Table) 07/14/23 07/14/23 07/15/23 Range/Units 11:11 16:27 05:37 WBC (4.50-10.00) X 10*3/uL RBC (4.10-5.20) X 10*6/uL Hgb (12.0-15.0) g/dL Hct (37.2-46.3) % MCV (80.0-97.0) FL MCHC (32.0-37.0) g/dL RDW (11.5-14.5) % Plt Count (140-440) X 10*3/uL Immature Gran # (0.00-0.04) X 10*3/uL Eosinophils # (0.04-0.35) X 10*3/uL NRBC/100 WBC Diff (0.00-0.01) X 10*3/uL PT 14.4 H (10.0-12.5) sec INR 1.4 H (<1.2) Carbon Dioxide (21.6-31.8) mmol/L BUN (9.0-27.0) mg/dL Creatinine (0.6-1.5) mg/dL Est GFR (CKD-EPI) (>=60) BUN/Creatinine Ratio (12.00-20.00) Ratio POC Glucose (mg/dL) 191 H 143 H (70-110) mg/dL Calcium (8.7-10.3) mg/dL 07/15/23 07/15/23 Range/Units 05:37 05:37 WBC 10.18 H (4.50-10.00) X 10*3/uL RBC 2.30 L (4.10-5.20) X 10*6/uL Hgb 7.1 L (12.0-15.0) g/dL Hct 22.5 L (37.2-46.3) % MCV 97.8 H (80.0-97.0) FL MCHC 31.6 L (32.0-37.0) g/dL RDW 19.9 H (11.5-14.5) % Plt Count 124 L (140-440) X 10*3/uL Immature Gran # 0.39 H (0.00-0.04) X 10*3/uL Eosinophils # 0.03 L (0.04-0.35) X 10*3/uL NRBC/100 WBC Diff 0.03 H (0.00-0.01) X 10*3/uL PT (10.0-12.5) sec INR (<1.2) Carbon Dioxide 19.2 L (21.6-31.8) mmol/L BUN 63.0 H (9.0-27.0) mg/dL Creatinine 1.6 H (0.6-1.5) mg/dL Est GFR (CKD-EPI) 32 L (>=60) BUN/Creatinine Ratio 39.38 H (12.00-20.00) Ratio POC Glucose (mg/dL) (70-110) mg/dL Calcium 7.8 L (8.7-10.3) mg/dL
--- NOTE | 2023-07-15 13:54 | P.PN ---
Subjective Progress Note Date: 07/15/23 This is an 82-year-old female, familiar to my service, patient was recently in the hospital with acute COVID-19 pneumonia, congestive heart failure, atrial fibrillation with RVR, possible underlying interstitial lung disease, patient was discharged on 06/26/2023, pulmonary service has seen this patient initially on 06/09/2023, at that time the patient was admitted with acute hypoxic respiratory failure, acute COVID-19 pneumonia, chronic bronchial asthma, and possible hospital-acquired pneumonia. In addition the patient had mild intermittent asthma, congestive heart failure, severe mitral calcification and moderate to severe mitral stenosis with preserved LV function and preserved ejection fraction. She also has history of rheumatoid arthritis, hypothyroidism, and lifelong non-smoker. We saw this patient last on 06/26/2023,, she was on 2 L nasal cannula, her labs were unremarkable, her sputum cultures were nondiagnostic, blood cultures were nondiagnostic, she had relatively normal renal profile, and she was at the time on warfarin, Symbicort, Singulair and albuterol. Patient was discharged to the [facility] on the [place]. Patient was discharged on amiodarone, Coumadin, prednisone 20 mg daily, Lopressor, and nystatin swish and swallow. Otherwise the patient was kept on her usual medications including Symbicort, Jardiance, levothyroxine, Singulair, Fosamax, ascorbic acid, atorvastatin, Lasix 40 mg p.o. daily, and Xanax. As well as albuterol. Patient was sent from the [facility] down to the ER today mostly because of low O2 saturation, and patient was noted to have some shortness of breath. Chest x-ray on this admission showed cardiomegaly and mild pulmonary vascular congestion, no clear-cut evidence of pneumonia. As a matter fact her chest x-ray shows significant improvement compared to her initial chest x-ray on her last admission. In addition to her shortness of breath, patient was noted to have abnormal labs with a potassium of 6.2, her BUN is 79 and creatinine 1.71. Patient was also noted to have elevated BNP level of 27,000 and troponin leak. ABG on 50% FiO2 showed a pO2 of 69 pCO2 48 pH of 7.54. Patient is now on 3 L nasal cannula, seems to be comfortable, not in distress. Seen by nephrology for her acute kidney injury, ATN, hyperkalemia with acute kidney injury and apparently the patient was on Bactrim and the recommendation by nephrology was to continue with IV fluids, IV antibiotics, and repeat labs in AM. Patient has a very poor urine output, I did recommend a fluid bolus of 500 cc of saline while in the ER, blood pressure is marginal. Considering her marginal low blood pressure, I am recommending that the patient goes to the ICU. Nephrology is addressing her abnormal renal profile and hyperkalemia The patient is seen today June 30, 2023 in follow-up in the emergency department. She is currently sitting up in the stretcher. Awake and alert in no acute distress. Doing quite a bit better today compared to yesterday. Tolerating a clear liquid breakfast. Maintaining O2 saturations in the upper 90s on 6 L/min per nasal cannula. She has been afebrile. Hemodynamically stable. X-ray reveals some diffuse hazy and patchy bilateral airspace disease. Blood cultures are pending. White count 19.8. Hemoglobin 8.6. Platelets 210. Sodium 135. Potassium 4.4. Bicarb 32. BUN 70. Creatinine 1.21. Glucose 149. AST 250. ALT 242. Alk phos 403. Echocardiogram reveals a hyperdynamic LV with a EF around 70%. There is severe mitral stenosis and moderate aortic stenosis. Severe pulmonary hypertension with an RVSP exceeding 50 mmHg. She is continued on DuoNeb ventilations, IV diuretics, antibiotics in the form of vancomycin and cefepime. Procalcitonin pending. The patient is seen today July 01, 2023 in follow-up on the regular medical floor. She is currently sitting up in bed. Awake and alert in no acute distress. She is maintaining O2 saturations in the 90s on 6 L high flow nasal cannula. Her procalcitonin was 1.16. She remains on cefepime and vancomycin. Cultures are pending. Creatinine 1.18. Glucose 121. INR 6.4. She remains on bronchodilators, oral diuretics, anticoagulated with warfarin. The patient is seen today July 02, 2023 in follow-up on the regular medical floor. She is currently resting in bed. Awake and alert in no acute distress. She is maintaining good O2 saturations up to 100% on 6 L/min per nasal cannula. She is afebrile. Hemodynamically stable. Ultrasound of the abdomen reveals hepatic steatosis with ascites adjacent to the liver. Echogenic material within the gallbladder lumen with masslike appearance. Borderline gallbladder wall thickening. Hemoglobin 6.9. She is receiving 1 unit of packed red blood cells. Platelets 113. White count 4.7. INR 2.3. Sodium 135. Potassium 5.3. Bicarb 29. BUN 58. Creatinine 1.4. Glucose 103. She is continued on DuoNeb inh alations, cefepime and vancomycin. Remains on oral diuretics. The patient is seen today July 03, 2023 in follow-up on the regular medical floor. She is awake and alert in no acute distress. Sitting up in bed. Denies any worsening shortness of breath, cough or congestion. She is down to 2 L/min per nasal cannula. No IV fluids. She is continued on Maxipime and vancomycin. CT scan of the abdomen and pelvis reveals a left rectus hematoma. Moderate cardiomegaly. Moderate to severe diffuse opacities in the lungs could be due to edema atelectasis or infection. Chronic and likely incidental findings. X-ray of the left ankle reveals no evidence of acute fracture. Status post 1 unit of packed red blood cells this admission. Current hemoglobin 8.7. White count 4.5. Platelets 110. Sodium 130. Potassium 4.6. Bicarb 30. BUN 57. Creatinine 1.53. Glucose 87. AST 292. ALT 235. Vancomycin trough 18.0. She remains on DuoNeb inhalations. Oral diuretics. Receiving iron supplements. The patient is seen today July 04, 2023 in follow-up on the regular medical floor. He is currently sitting up in bed. Awake and alert in no acute distress. Maintaining good O2 saturations in the 90s on 2 L/min per nasal cannula. She denies any worsening shortness of breath, cough or congestion. She denies any abdominal pain. No fever or chills. White count 4.6. Hemoglobin 8.7. Platelets 123. Sodium 133. Potassium 4.4. Bicarb 26. BUN 51. Creatinine 1.3. Glucose 97. AST 211. ALT 214. Alk phos 164. Hepatobiliary scan pending. Chest x-ray reveals stable scattered airspace disease unchanged compared to previous. The patient is seen today July 05, 2023 in follow-up on the regular medical floor. She is resting comfortably in bed. Awake and alert in no acute distre ss. She is now on room air. No IV fluids. She remains on cefepime. Continued on bronchodilators. Continued on oral diuretics. Urine culture positive for Chaparrita. Blood cultures revealed no growth. White count 8.0. Hemoglobin 8.6. Platelets 149. Sodium 136. Potassium 4.1. Bicarb 52. Creatinine 1.4. AST 218. ALT 153. Hepatobiliary scan was within normal limits. Currently in a negative 1.6 L balance. The patient is seen today July 06, 2023 in follow-up on the regular medical miki or. She is sitting up in bed. Family is at the bedside. She remains quite weak and debilitated. She is maintaining good O2 saturations in the 90s on room air. She remains on cefepime. Continued on bronchodilators. Remains on oral diuretics. White count 11.7. Hemoglobin 8.5. Platelets 167. Sodium 137. Potassium 3.4. Bicarb 26. BUN 49. Creatinine 1.1. Glucose 88. The patient is seen today July 07, 2023 in follow-up on the regular medical floor. She is awake and alert in no acute distress. She does remain very weak and debilitated. Not taking much oral intake. White count 12.0. Hemoglobin 8.8. Platelets 189. Sodium 137. Potassium 4.3. Bicarb 25. BUN 52. Creatinine 1.2. Glucose 79. AST 135. ALT 178. She remains in a -750 mL balance. She is continued on DuoNeb inhalations. Remains on oral diuretics. Remains on cefepime. The patient is seen today July 15, 2023 in follow-up on the regular medical floor. She is currently sitting up in bed. Awake and alert in no acute distress. She remains quite weak and debilitated. Her appetite is poor. She has been being considered for a PEG tube placement. Ultrasound of the abdomen revealed a small amount of ascites in the left lower quadrant. Her hemoglobin continues to drift down currently at 7.1. 1 unit of packed red blood cells have been transfused. White count 10.1. Platelets 124. INR 1.4. Sodium 137. Potassium 5.0. Bicarb 19. BUN 63. Creatinine 1.6. Glucose 80. Remains on she is daptomycin. Continued on bronchodilators. Anticoagulated with warfarin. Objective - Vital Signs Vital signs: Vital Signs Temp 97.6 F 07/15/23 13:43 Pulse 75 07/15/23 13:43 Resp 18 07/15/23 13:43 BP 88/51 07/15/23 13:43 Pulse Ox 100 07/15/23 13:43 FiO2 21 07/05/23 07:54 Intake & Output 07/14/23 07/15/23 07/15/23 18:59 06:59 18:59 Output Total 200 550 Balance -200 -550 Weight 56 kg 56 kg Output: Urine 200 550 Other: Voiding Method Indwelling Catheter Indwelling Catheter Indwelling Catheter # Bowel Movements 2 3 - Exam GENERAL EXAM: Alert, very weak 82-year-old female, on room air, in no apparent distress. HEAD: Normocephalic. EYES: Normal reaction of pupils, equal size. NOSE: Clear with pink turbinates. THROAT: No erythema or exudates. NECK: No masses, no JVD. CHEST: No chest wall deformity. LUNGS: Equal air entry with crackles in the bilateral bases. CVS: S1 and S2 normal with no audible murmur, regular rhythm. ABDOMEN: No hepatosplenomegaly, normal bowel sounds, no guarding or rigidity. SPINE: No scoliosis or deformity SKIN: No rashes CENTRAL NERVOUS SYSTEM: No focal deficits, tone is normal in all 4 extremities. EXTREMITIES: There is no peripheral edema. No clubbing, no cyanosis. Peripheral pulses are intact. - Labs CBC & Chem 7: 07/15/23 05:37 07/15/23 05:37 Labs: Abnormal Lab Results - Last 24 Hours (Table) 07/12/23 07/14/23 07/15/23 Range/Units 06:49 16:27 05:37 WBC (4.50-10.00) X 10*3/uL RBC (4.10-5.20) X 10*6/uL Hgb (12.0-15.0) g/dL Hct (37.2-46.3) % MCV (80.0-97.0) FL MCHC (32.0-37.0) g/dL RDW (11.5-14.5) % Plt Count (140-440) X 10*3/uL Immature Gran # (0.00-0.04) X 10*3/uL Eosinophils # (0.04-0.35) X 10*3/uL Promyelocytes # (Man) 0.14 H (0) k/uL NRBC/100 WBC Diff (0.00-0.01) X 10*3/uL PT 14.4 H (10.0-12.5) sec INR 1.4 H (<1.2) Carbon Dioxide (21.6-31.8) mmol/L BUN (9.0-27.0) mg/dL Creatinine (0.6-1.5) mg/dL Est GFR (CKD-EPI) (>=60) BUN/Creatinine Ratio (12.00-20.00) Ratio POC Glucose (mg/dL) 143 H (70-110) mg/dL Calcium (8.7-10.3) mg/dL Crossmatch 07/15/23 07/15/23 07/15/23 Range/Units 05:37 05:37 11:15 WBC 10.18 H (4.50-10.00) X 10*3/uL RBC 2.30 L (4.10-5.20) X 10*6/uL Hgb 7.1 L (12.0-15.0) g/dL Hct 22.5 L (37.2-46.3) % MCV 97.8 H (80.0-97.0) FL MCHC 31.6 L (32.0-37.0) g/dL RDW 19.9 H (11.5-14.5) % Plt Count 124 L (140-440) X 10*3/uL Immature Gran # 0.39 H (0.00-0.04) X 10*3/uL Eosinophils # 0.03 L (0.04-0.35) X 10*3/uL Promyelocytes # (Man) (0) k/uL NRBC/100 WBC Diff 0.03 H (0.00-0.01) X 10*3/uL PT (10.0-12.5) sec INR (<1.2) Carbon Dioxide 19.2 L (21.6-31.8) mmol/L BUN 63.0 H (9.0-27.0) mg/dL Creatinine 1.6 H (0.6-1.5) mg/dL Est GFR (CKD-EPI) 32 L (>=60) BUN/Creatinine Ratio 39.38 H (12.00-20.00) Ratio POC Glucose (mg/dL) 167 H (70-110) mg/dL Calcium 7.8 L (8.7-10.3) mg/dL Crossmatch 07/15/23 Range/Units 11:36 WBC (4.50-10.00) X 10*3/uL RBC (4.10-5.20) X 10*6/uL Hgb (12.0-15.0) g/dL Hct (37.2-46.3) % MCV (80.0-97.0) FL MCHC (32.0-37.0) g/dL RDW (11.5-14.5) % Plt Count (140-440) X 10*3/uL Immature Gran # (0.00-0.04) X 10*3/uL Eosinophils # (0.04-0.35) X 10*3/uL Promyelocytes # (Man) (0) k/uL NRBC/100 WBC Diff (0.00-0.01) X 10*3/uL PT (10.0-12.5) sec INR (<1.2) Carbon Dioxide (21.6-31.8) mmol/L BUN (9.0-27.0) mg/dL Creatinine (0.6-1.5) mg/dL Est GFR (CKD-EPI) (>=60) BUN/Creatinine Ratio (12.00-20.00) Ratio POC Glucose (mg/dL) (70-110) mg/dL Calcium (8.7-10.3) mg/dL Crossmatch See Detail Assessment and Plan Assessment: Acute on chronic hypoxic respiratory failure, multifactorial, recovered and on room air Acute on chronic congestive heart failure with preserved ejection fraction hyperdynamic LV with an ejection fraction of 70% Acute anemia with a hemoglobin of 6.9, received 2 units of packed red blood cells, current hemoglobin 7.1 Echogenic material within the gallbladder lumen with masslike appearance. Borderline gallbladder thickening. Hepatobiliary scan within normal limits Hepatic steatosis with ascites adjacent to the liver suspected Transaminitis, trending down Severe mitral stenosis Mild to moderate aortic stenosis Severe pulmonary hypertension with RVSP exceeding 50 mmHg History of COVID-19 pneumonia and healthcare acquired pneumonia, patient was treated with remdesivir on the last admission History of rheumatoid arthritis and possibly some component of interstitial lung disease Severe mitral valve disease with severe mitral stenosis, and mild aortic re gurgitation and stenosis. History of rheumatoid arthritis Hypothyroidism Lifelong non-smoker Mild intermittent asthma Acute kidney injury/ATN Failure to thrive Very poor functional performance based on the above-mentioned multiple comorbidities Plan: The patient was seen and evaluated Labs and medications reviewed Stable and on room air Very weak and debilitated Plan is for subacute rehab at discharge I have personally seen and examined the patient, performed the documentation and the assessment and plan as written. Number of minutes spent on the visit: 10.
--- NOTE | 2023-07-15 15:40 | P.PN ---
Subjective Progress Note Date: 07/15/23 CHIEF COMPLAINT: Shortness of breath HISTORY OF PRESENT ILLNESS: Surgical service following in regards to patient's acute cholecystitis and Left rectus sheath hematoma. Patient reports no abdominal pain. She tolerated diet. Eating a small amount. Afebrile. WBC 10.18 hgb 7.1 PHYSICAL EXAM: VITAL SIGNS: Reviewed. GENERAL: no acute distress. ABDOMEN: Soft. Nondistended. ASSESSMENT: 1. Acute cholecystitis. Echogenic material within the gallbladder lumen with masslike appearance and borderline gallbladder wall thickening noted on ultrasound 2. Elevated LFTs 3. Left abdominal rectus sheath hematoma with Coumadin toxicity present on admission 4. Acute blood loss anemia due to rectus sheath hematoma requiring blood transfusion 5. Sacral decubitus ulcer and ulceration posterior left upper thigh PLAN: -Patient is a poor surgical candidate. No surgical intervention planned. -Recommend no debridement of the sacral and upper left posterior thigh. -Continue local wound care -Continue offloading -Continue medical management -Continue low-fat diet Physician Branch Store Manager note has been reviewed by physician. Signing provider agrees with the documented findings, assessment, and plan of care. Objective - Vital Signs Vital signs: Vital Signs Temp 97.6 F 07/15/23 15:25 Pulse 79 07/15/23 15:25 Resp 18 07/15/23 15:25 BP 84/43 07/15/23 15:25 Pulse Ox 100 07/15/23 15:25 FiO2 21 07/05/23 07:54 Intake & Output 07/14/23 07/15/23 07/15/23 18:59 06:59 18:59 Intake Total 0 Output Total 200 550 Balance -200 -550 0 Weight 56 kg 56 kg Intake: Blood Product 0 Unit 0 Output: Urine 200 550 Other: Voiding Method Indwelling Catheter Indwelling Catheter Indwelling Catheter # Bowel Movements 2 3 - Labs CBC & Chem 7: 07/15/23 05:37 07/15/23 05:37 Labs: Abnormal Lab Results - Last 24 Hours (Table) 07/12/23 07/14/23 07/15/23 Range/Units 06:49 16:27 05:37 WBC (4.50-10.00) X 10*3/uL RBC (4.10-5.20) X 10*6/uL Hgb (12.0-15.0) g/dL Hct (37.2-46.3) % MCV (80.0-97.0) FL MCHC (32.0-37.0) g/dL RDW (11.5-14.5) % Plt Count (140-440) X 10*3/uL Immature Gran # (0.00-0.04) X 10*3/uL Eosinophils # (0.04-0.35) X 10*3/uL Promyelocytes # (Man) 0.14 H (0) k/uL NRBC/100 WBC Diff (0.00-0.01) X 10*3/uL PT 14.4 H (10.0-12.5) sec INR 1.4 H (<1.2) Carbon Dioxide (21.6-31.8) mmol/L BUN (9.0-27.0) mg/dL Creatinine (0.6-1.5) mg/dL Est GFR (CKD-EPI) (>=60) BUN/Creatinine Ratio (12.00-20.00) Ratio POC Glucose (mg/dL) 143 H (70-110) mg/dL Calcium (8.7-10.3) mg/dL Crossmatch 07/15/23 07/15/23 07/15/23 Range/Units 05:37 05:37 11:15 WBC 10.18 H (4.50-10.00) X 10*3/uL RBC 2.30 L (4.10-5.20) X 10*6/uL Hgb 7.1 L (12.0-15.0) g/dL Hct 22.5 L (37.2-46.3) % MCV 97.8 H (80.0-97.0) FL MCHC 31.6 L (32.0-37.0) g/dL RDW 19.9 H (11.5-14.5) % Plt Count 124 L (140-440) X 10*3/uL Immature Gran # 0.39 H (0.00-0.04) X 10*3/uL Eosinophils # 0.03 L (0.04-0.35) X 10*3/uL Promyelocytes # (Man) (0) k/uL NRBC/100 WBC Diff 0.03 H (0.00-0.01) X 10*3/uL PT (10.0-12.5) sec INR (<1.2) Carbon Dioxide 19.2 L (21.6-31.8) mmol/L BUN 63.0 H (9.0-27.0) mg/dL Creatinine 1.6 H (0.6-1.5) mg/dL Est GFR (CKD-EPI) 32 L (>=60) BUN/Creatinine Ratio 39.38 H (12.00-20.00) Ratio POC Glucose (mg/dL) 167 H (70-110) mg/dL Calcium 7.8 L (8.7-10.3) mg/dL Crossmatch 07/15/23 Range/Units 11:36 WBC (4.50-10.00) X 10*3/uL RBC (4.10-5.20) X 10*6/uL Hgb (12.0-15.0) g/dL Hct (37.2-46.3) % MCV (80.0-97.0) FL MCHC (32.0-37.0) g/dL RDW (11.5-14.5) % Plt Count (140-440) X 10*3/uL Immature Gran # (0.00-0.04) X 10*3/uL Eosinophils # (0.04-0.35) X 10*3/uL Promyelocytes # (Man) (0) k/uL NRBC/100 WBC Diff (0.00-0.01) X 10*3/uL PT (10.0-12.5) sec INR (<1.2) Carbon Dioxide (21.6-31.8) mmol/L BUN (9.0-27.0) mg/dL Creatinine (0.6-1.5) mg/dL Est GFR (CKD-EPI) (>=60) BUN/Creatinine Ratio (12.00-20.00) Ratio POC Glucose (mg/dL) (70-110) mg/dL Calcium (8.7-10.3) mg/dL Crossmatch See Detail
[2023-07-15 16:12] LABS: Glucose,Whole Blood 161 mg/dL (70-110)
[2023-07-15] MEDS: WARFARIN 2 MG TAB PO ONE (17:20)
[2023-07-15 20:50] LABS: Glucose,Whole Blood 187 mg/dL (70-110)
[2023-07-15] MEDS: SODIUM CHLORIDE 0.9% 1,000 ML IV SCH (21:07)
[2023-07-15] MEDS: SODIUM CHLORIDE 0.9% 500 ML 500 ML IV ONE (21:07)
--- NOTE | 2023-07-15 21:27 | P.PN ---
Subjective Progress Note Date: 07/15/23 Principal diagnosis: Reason for follow-up is sepsis UTI/pneumonia Patient is a 82-year-old female with a past medical history significant for hypertension hyperlipidemia mitral valve prolapse rheumatoid arthritis heart failure patient has been brought into the hospital for evaluation of increasing shortness of breath patient was initially admitted to the ICU concerning for sepsis secondary to possible pneumonia/UTI versus hepatobiliary source. On today's evaluation that is 07/15/2023, the patient continues to be afebrile, the patient is on 2 L nasal cannula oxygen and breathing comfortably, the Pt denies having any chest pain or cough, the patient denies having any abdominal pain no vomiting or any worsening diarrhea reported by the nursing staff. Patient white count is down to 10.18, creatinine is 1.6 Objective - Vital Signs Vital signs: Vital Signs Temp 97.8 F 07/15/23 15:45 Pulse 75 07/15/23 15:56 Resp 18 07/15/23 15:45 BP 90/48 07/15/23 15:45 Pulse Ox 98 07/15/23 15:45 FiO2 21 07/05/23 07:54 Intake & Output 07/14/23 07/15/23 07/15/23 18:59 06:59 18:59 Intake Total 310 Output Total 200 550 300 Balance -200 -550 10 Weight 56 kg 56 kg Intake: Blood Product 310 Rc As-1 Unit 310 [id number] Output: Urine 200 550 300 Other: Voiding Method Indwelling Catheter Indwelling Catheter Indwelling Catheter # Bowel Movements 2 3 5 - Exam GENERAL DESCRIPTION: An elderly female lying in bed in no distress RESPIRATORY SYSTEM: Unlabored breathing , decreased breath sounds at bases HEART: S1 S2 regular rate and rhythm , ABDOMEN: Soft , mild distention but no tenderness EXTREMITIES: No edema feet Patient did have a stage II pressure ulcer to the right gluteal and sacral area with some slough tissue - Labs CBC & Chem 7: 07/15/23 05:37 07/15/23 05:37 Labs: Abnormal Lab Results - Last 24 Hours (Table) 07/12/23 07/15/23 07/15/23 Range/Units 06:49 05:37 05:37 WBC 10.18 H (4.50-10.00) X 10*3/uL RBC 2.30 L (4.10-5.20) X 10*6/uL Hgb 7.1 L (12.0-15.0) g/dL Hct 22.5 L (37.2-46.3) % MCV 97.8 H (80.0-97.0) FL MCHC 31.6 L (32.0-37.0) g/dL RDW 19.9 H (11.5-14.5) % Plt Count 124 L (140-440) X 10*3/uL Immature Gran # 0.39 H (0.00-0.04) X 10*3/uL Eosinophils # 0.03 L (0.04-0.35) X 10*3/uL Promyelocytes # (Man) 0.14 H (0) k/uL NRBC/100 WBC Diff 0.03 H (0.00-0.01) X 10*3/uL PT 14.4 H (10.0-12.5) sec INR 1.4 H (<1.2) Carbon Dioxide (21.6-31.8) mmol/L BUN (9.0-27.0) mg/dL Creatinine (0.6-1.5) mg/dL Est GFR (CKD-EPI) (>=60) BUN/Creatinine Ratio (12.00-20.00) Ratio POC Glucose (mg/dL) (70-110) mg/dL Calcium (8.7-10.3) mg/dL Crossmatch 07/15/23 07/15/23 07/15/23 Range/Units 05:37 11:15 11:36 WBC (4.50-10.00) X 10*3/uL RBC (4.10-5.20) X 10*6/uL Hgb (12.0-15.0) g/dL Hct (37.2-46.3) % MCV (80.0-97.0) FL MCHC (32.0-37.0) g/dL RDW (11.5-14.5) % Plt Count (140-440) X 10*3/uL Immature Gran # (0.00-0.04) X 10*3/uL Eosinophils # (0.04-0.35) X 10*3/uL Promyelocytes # (Man) (0) k/uL NRBC/100 WBC Diff (0.00-0.01) X 10*3/uL PT (10.0-12.5) sec INR (<1.2) Carbon Dioxide 19.2 L (21.6-31.8) mmol/L BUN 63.0 H (9.0-27.0) mg/dL Creatinine 1.6 H (0.6-1.5) mg/dL Est GFR (CKD-EPI) 32 L (>=60) BUN/Creatinine Ratio 39.38 H (12.00-20.00) Ratio POC Glucose (mg/dL) 167 H (70-110) mg/dL Calcium 7.8 L (8.7-10.3) mg/dL Crossmatch See Detail 07/15/23 Range/Units 16:11 WBC (4.50-10.00) X 10*3/uL RBC (4.10-5.20) X 10*6/uL Hgb (12.0-15.0) g/dL Hct (37.2-46.3) % MCV (80.0-97.0) FL MCHC (32.0-37.0) g/dL RDW (11.5-14.5) % Plt Count (140-440) X 10*3/uL Immature Gran # (0.00-0.04) X 10*3/uL Eosinophils # (0.04-0.35) X 10*3/uL Promyelocytes # (Man) (0) k/uL NRBC/100 WBC Diff (0.00-0.01) X 10*3/uL PT (10.0-12.5) sec INR (<1.2) Carbon Dioxide (21.6-31.8) mmol/L BUN (9.0-27.0) mg/dL Creatinine (0.6-1.5) mg/dL Est GFR (CKD-EPI) (>=60) BUN/Creatinine Ratio (12.00-20.00) Ratio POC Glucose (mg/dL) 161 H (70-110) mg/dL Calcium (8.7-10.3) mg/dL Crossmatch Assessment and Plan (1) UTI (urinary tract infection) Current Visit: Yes Status: Acute Code(s): N39.0 - URINARY TRACT INFECTION, SITE NOT SPECIFIED SNOMED Code(s): 94075885 (2) Elevated liver enzymes Current Visit: Yes Status: Acute Code(s): R74.8 - ABNORMAL LEVELS OF OTHER SERUM ENZYMES SNOMED Code(s): 759396743 (3) Pneumonia Current Visit: Yes Status: Acute Code(s): J18.9 - PNEUMONIA, UNSPECIFIED ORGANISM SNOMED Code(s): 698207312 (4) Leukocytosis Current Visit: No Status: Acute Code(s): D72.829 - ELEVATED WHITE BLOOD CELL COUNT, UNSPECIFIED SNOMED Code(s): 554990150 (5) Diarrhea Current Visit: Yes Status: Acute Code(s): R19.7 - DIARRHEA, UNSPECIFIED SNOMED Code(s): 88009897 Plan: 1-patient did have a stage II sacral pressure ulcer to the right gluteal and sacral area local care with the Medihoney followed by moist dressing keep the area of the pressure 2-patient with leukocytosis which is likely related to catheter assisted UTI with urine culture currently growing Chaparrita unfortunately we are not able to use Diflucan because of her cardiac medication also grew VRE for the patient started on daptomycin patient did have improvement in the white count we will repeat his CBC with a.m. lab Dictation was produced using [employer] dictation software. please excuse any grammatical, word or spelling errors. Time with Patient: Less than 30
[2023-07-16 06:02] LABS: Glucose,Whole Blood 91 mg/dL (70-110)
[2023-07-16 06:42] LABS: African American GFR (CKD) 44 (>60 ml/min/1.73 sqM); Anion Gap 2 mmol/L; Blood Urea Nitrogen 60 mg/dL (7-17); Calcium 7.6 mg/dL (8.4-10.2); Carbon Dioxide 19 mmol/L (22-30); Chloride 113 mmol/L (98-107); Glucose 81 mg/dL (74-99); Magnesium 1.8 mg/dL (1.6-2.3); Non-African American GFR(CKD) 39 (>60 ml/min/1.73 sqM); Potassium 4.8 mmol/L (3.5-5.1); Sodium 134 mmol/L (137-145)
[2023-07-16 06:54] LABS: Anisocytosis Slight; HCT 26.6 % (34.0-46.0); HGB 8.6 gm/dL (11.4-16.0); Hypochromasia Slight; MCHC 32.3 g/dL (31.0-37.0); Macrocytosis Slight; Mean Platelet Volume 8.7; Platelet Count 173 k/uL (150-450); Poikilocytosis Slight; RBC 2.77 m/uL (3.80-5.40); RDW 18.5 % (11.5-15.5); WBC 10.1 k/uL (3.8-10.6)
[2023-07-16 07:11] LABS: INR 1.6 (<1.2); Prothrombin Time 16.5 sec (10.0-12.5)
--- NOTE | 2023-07-16 10:48 | P.PN ---
Subjective Patient is seen in follow-up for acute kidney injury. Renal function better. Diuretics held. Receiving IV hydration. Oral intake fair. Nonoliguric. Remains quite lethargic. Vital signs are stable. General: No acute distress. HEENT: Head exam is unremarkable. LUNGS: No audible rhonchi or wheezes. HEART: Rate and Rhythm are regular. ABDOMEN: Nontender. EXTREMITITES: 1+ edema. Objective - Vital Signs Vital signs: Vital Signs Temp 97.9 F 07/16/23 07:20 Pulse 85 07/16/23 07:20 Resp 20 07/16/23 07:20 BP 95/53 07/16/23 07:20 Pulse Ox 94 L 07/16/23 07:20 FiO2 21 07/05/23 07:54 Intake & Output 07/15/23 07/16/23 07/16/23 18:59 06:59 18:59 Intake Total 310 Output Total 300 400 Balance 10 -400 Weight 56 kg 56.5 kg Intake: Blood Product 310 Rc As-1 Unit 310 [id number] Output: Urine 300 400 Other: Voiding Method Indwelling Catheter Indwelling Catheter Indwelling Catheter # Bowel Movements 5 2 - Labs CBC & Chem 7: 07/16/23 05:32 07/16/23 05:32 Labs: Abnormal Lab Results - Last 24 Hours (Table) 07/12/23 07/15/23 07/15/23 Range/Units 06:49 11:15 11:36 RBC (3.80-5.40) m/uL Hgb (11.4-16.0) gm/dL Hct (34.0-46.0) % RDW (11.5-15.5) % Promyelocytes # (Man) 0.14 H (0) k/uL PT (10.0-12.5) sec INR (<1.2) Sodium (137-145) mmol/L Chloride (98-107) mmol/L Carbon Dioxide (22-30) mmol/L BUN (7-17) mg/dL Creatinine (0.52-1.04) mg/dL POC Glucose (mg/dL) 167 H (70-110) mg/dL Calcium (8.4-10.2) mg/dL Crossmatch See Detail 07/15/23 07/15/23 07/16/23 Range/Units 16:11 20:47 05:32 RBC (3.80-5.40) m/uL Hgb (11.4-16.0) gm/dL Hct (34.0-46.0) % RDW (11.5-15.5) % Promyelocytes # (Man) (0) k/uL PT 16.5 H (10.0-12.5) sec INR 1.6 H (<1.2) Sodium (137-145) mmol/L Chloride (98-107) mmol/L Carbon Dioxide (22-30) mmol/L BUN (7-17) mg/dL Creatinine (0.52-1.04) mg/dL POC Glucose (mg/dL) 161 H 187 H (70-110) mg/dL Calcium (8.4-10.2) mg/dL Crossmatch 07/16/23 07/16/23 Range/Units 05:32 05:32 RBC 2.77 L (3.80-5.40) m/uL Hgb 8.6 L (11.4-16.0) gm/dL Hct 26.6 L (34.0-46.0) % RDW 18.5 H (11.5-15.5) % Promyelocytes # (Man) (0) k/uL PT (10.0-12.5) sec INR (<1.2) Sodium 134 L (137-145) mmol/L Chloride 113 H (98-107) mmol/L Carbon Dioxide 19 L (22-30) mmol/L BUN 60 H (7-17) mg/dL Creatinine 1.31 H (0.52-1.04) mg/dL POC Glucose (mg/dL) (70-110) mg/dL Calcium 7.6 L (8.4-10.2) mg/dL Crossmatch Microbiology - Last 24 Hours (Table) 07/10/23 14:40 Blood Culture - Final Blood Assessment and Plan Plan: Assessment: 1. Acute kidney injury secondary to ATN secondary to severe sepsis. Was also on Bactrim prior to admission. No hydronephrosis noted on kidney ultrasound/CT. Renal function better. Nonoliguric. 2. Chronic diastolic CHF with severe pulmonary hypertension, mild to moderate aortic stenosis, moderate aortic regurgitation, severe mitral stenosis. 3. Hyperkalemia secondary to acute kidney injury on Bactrim. Improved. 4. Edema. Partially third spacing from hypoalbuminemia. 5. Acute blood loss anemia. Status post blood transfusion this admission. Also received IV iron. On Aranesp. Defer blood transfusions to primary team and surgery. 6. Hyponatremia from poor solute intake. Hypervolemic. 7. Acute COVID infection. 8. Left abdominal rectus sheath hematoma. Surgery following. 9. Hypervolemic hyponatremia. 10. Protein calorie malnutrition with albumin level of 2.0. s/p IV albumin 07/12/23. 11. Urinary retention. Caldwell catheter had to be reinserted. On Flomax. 12. Metabolic acidosis secondary to acute kidney injury. On oral bicarb. Stable. Plan: Hep-Lock IV fluids. Encouraged oral intake. Maintain 1500 cc fluid restriction. Avoid nephrotoxins. Continue to monitor renal function and urine output. Maintain midodrine. Hold for systolic blood pressure greater than 110. A.m. cortisol level not low. Prognosis guarded.
[2023-07-16 11:38] LABS: Glucose,Whole Blood 129 mg/dL (70-110)
--- NOTE | 2023-07-16 12:30 | P.PN ---
Subjective Progress Note Date: 07/16/23 CHIEF COMPLAINT: Shortness of breath HISTORY OF PRESENT ILLNESS: Surgical service following in regards to patient's acute cholecystitis and Left rectus sheath hematoma. Patient reports no abdominal pain. She tolerated diet. Eating a small amount. Afebrile. WBC 10.1 hgb 8.6 PHYSICAL EXAM: VITAL SIGNS: Reviewed. GENERAL: no acute distress. ABDOMEN: Soft. Nondistended. ASSESSMENT: 1. Acute cholecystitis. Echogenic material within the gallbladder lumen with masslike appearance and borderline gallbladder wall thickening noted on ultrasound 2. Elevated LFTs 3. Left abdominal rectus sheath hematoma with Coumadin toxicity present on admission 4. Acute blood loss anemia due to rectus sheath hematoma requiring blood transfusion 5. Sacral decubitus ulcer and ulceration posterior left upper thigh PLAN: -Patient is a poor surgical candidate. No surgical intervention planned. -Recommend no debridement of the sacral and upper left posterior thigh. -Continue local wound care -Continue offloading -Continue medical management -Continue low-fat diet -Antibiotics per ID service Physician [facility] note has been reviewed by physician. Signing provider agrees with the documented findings, assessment, and plan of care. Objective - Vital Signs Vital signs: Vital Signs Temp 97.9 F 07/16/23 07:20 Pulse 80 07/16/23 11:15 Resp 20 07/16/23 07:20 BP 95/53 07/16/23 07:20 Pulse Ox 94 L 07/16/23 07:20 FiO2 21 07/05/23 07:54 Intake & Output 07/15/23 07/16/23 07/16/23 18:59 06:59 18:59 Intake Total 310 Output Total 300 400 Balance 10 -400 Weight 56 kg 56.5 kg Intake: Blood Product 310 Rc As-1 Unit 310 [id number] Output: Urine 300 400 Other: Voiding Method Indwelling Catheter Indwelling Catheter Indwelling Catheter # Bowel Movements 5 2 - Labs CBC & Chem 7: 07/16/23 05:32 07/16/23 05:32 Labs: Abnormal Lab Results - Last 24 Hours (Table) 07/15/23 07/15/23 07/15/23 Range/Units 11:36 16:11 20:47 RBC (3.80-5.40) m/uL Hgb (11.4-16.0) gm/dL Hct (34.0-46.0) % RDW (11.5-15.5) % PT (10.0-12.5) sec INR (<1.2) Sodium (137-145) mmol/L Chloride (98-107) mmol/L Carbon Dioxide (22-30) mmol/L BUN (7-17) mg/dL Creatinine (0.52-1.04) mg/dL POC Glucose (mg/dL) 161 H 187 H (70-110) mg/dL Calcium (8.4-10.2) mg/dL Crossmatch See Detail 07/16/23 07/16/23 07/16/23 Range/Units 05:32 05:32 05:32 RBC 2.77 L (3.80-5.40) m/uL Hgb 8.6 L (11.4-16.0) gm/dL Hct 26.6 L (34.0-46.0) % RDW 18.5 H (11.5-15.5) % PT 16.5 H (10.0-12.5) sec INR 1.6 H (<1.2) Sodium 134 L (137-145) mmol/L Chloride 113 H (98-107) mmol/L Carbon Dioxide 19 L (22-30) mmol/L BUN 60 H (7-17) mg/dL Creatinine 1.31 H (0.52-1.04) mg/dL POC Glucose (mg/dL) (70-110) mg/dL Calcium 7.6 L (8.4-10.2) mg/dL Crossmatch 07/16/23 Range/Units 11:36 RBC (3.80-5.40) m/uL Hgb (11.4-16.0) gm/dL Hct (34.0-46.0) % RDW (11.5-15.5) % PT (10.0-12.5) sec INR (<1.2) Sodium (137-145) mmol/L Chloride (98-107) mmol/L Carbon Dioxide (22-30) mmol/L BUN (7-17) mg/dL Creatinine (0.52-1.04) mg/dL POC Glucose (mg/dL) 129 H (70-110) mg/dL Calcium (8.4-10.2) mg/dL Crossmatch Microbiology - Last 24 Hours (Table) 07/10/23 14:40 Blood Culture - Final Blood
--- NOTE | 2023-07-16 14:05 | P.PN ---
Subjective Progress Note Date: 07/16/23 This is an 82-year-old female, familiar to my service, patient was recently in the hospital with acute COVID-19 pneumonia, congestive heart failure, atrial fibrillation with RVR, possible underlying interstitial lung disease, patient was discharged on 06/26/2023, pulmonary service has seen this patient initially on 06/09/2023, at that time the patient was admitted with acute hypoxic respiratory failure, acute COVID-19 pneumonia, chronic bronchial asthma, and possible hospital-acquired pneumonia. In addition the patient had mild intermittent asthma, congestive heart failure, severe mitral calcification and moderate to severe mitral stenosis with preserved LV function and preserved ejection fraction. She also has history of rheumatoid arthritis, hypothyroidism, and lifelong non-smoker. We saw this patient last on 06/26/2023,, she was on 2 L nasal cannula, her labs were unremarkable, her sputum cultures were nondiagnostic, blood cultures were nondiagnostic, she had relatively normal renal profile, and she was at the time on warfarin, Symbicort, Singulair and albuterol. Patient was discharged to the [facility] on the free soil. Patient was discharged on amiodarone, Coumadin, prednisone 20 mg daily, Lopressor, and nystatin swish and swallow. Otherwise the patient was kept on her usual medications including Symbicort, Jardiance, levothyroxine, Singulair, Fosamax, ascorbic acid, atorvastatin, Lasix 40 mg p.o. daily, and Xanax. As well as albuterol. Patient was sent from the [facility] down to the ER today mostly because of low O2 saturation, and patient was noted to have some shortness of breath. Chest x-ray on this admission showed cardiomegaly and mild pulmonary vascular congestion, no clear-cut evidence of pneumonia. As a matter fact her chest x-ray shows significant improvement compared to her initial chest x-ray on her last admission. In addition to her shortness of breath, patient was noted to have abnormal labs with a potassium of 6.2, her BUN is 79 and creatinine 1.71. Patient was also noted to have elevated BNP level of 27,000 and troponin leak. ABG on 50% FiO2 showed a pO2 of 69 pCO2 48 pH of 7.54. Patient is now on 3 L nasal cannula, seems to be comfortable, not in distress. Seen by nephrology for her acute kidney injury, ATN, hyperkalemia with acute kidney injury and apparently the patient was on Bactrim and the recommendation by nephrology was to continue with IV fluids, IV antibiotics, and repeat labs in AM. Patient has a very poor urine output, I did recommend a fluid bolus of 500 cc of saline while in the ER, blood pressure is marginal. Considering her marginal low blood pressure, I am recommending that the patient goes to the ICU. Nephrology is addressing her abnormal renal profile and hyperkalemia The patient is seen today June 30, 2023 in follow-up in the emergency department. She is currently sitting up in the stretcher. Awake and alert in no acute distress. Doing quite a bit better today compared to yesterday. Tolerating a clear liquid breakfast. Maintaining O2 saturations in the upper 90s on 6 L/min per nasal cannula. She has been afebrile. Hemodynamically stable. X-ray reveals some diffuse hazy and patchy bilateral airspace disease. Blood cultures are pending. White count 19.8. Hemoglobin 8.6. Platelets 210. Sodium 135. Potassium 4.4. Bicarb 32. BUN 70. Creatinine 1.21. Glucose 149. AST 250. ALT 242. Alk phos 403. Echocardiogram reveals a hyperdynamic LV with a EF around 70%. There is severe mitral stenosis and moderate aortic stenosis. Severe pulmonary hypertension with an RVSP exceeding 50 mmHg. She is continued on DuoNeb ventilations, IV diuretics, antibiotics in the form of vancomycin and cefepime. Procalcitonin pending. The patient is seen today July 01, 2023 in follow-up on the regular medical floor. She is currently sitting up in bed. Awake and alert in no acute distress. She is maintaining O2 saturations in the 90s on 6 L high flow nasal cannula. Her procalcitonin was 1.16. She remains on cefepime and vancomycin. Cultures are pending. Creatinine 1.18. Glucose 121. INR 6.4. She remains on bronchodilators, oral diuretics, anticoagulated with warfarin. The patient is seen today July 02, 2023 in follow-up on the regular medical floor. She is currently resting in bed. Awake and alert in no acute distress. She is maintaining good O2 saturations up to 100% on 6 L/min per nasal cannula. She is afebrile. Hemodynamically stable. Ultrasound of the abdomen reveals hepatic steatosis with ascites adjacent to the liver. Echogenic material within the gallbladder lumen with masslike appearance. Borderline gallbladder wall thickening. Hemoglobin 6.9. She is receiving 1 unit of packed red blood cells. Platelets 113. White count 4.7. INR 2.3. Sodium 135. Potassium 5.3. Bicarb 29. BUN 58. Creatinine 1.4. Glucose 103. She is continued on DuoNeb inh alations, cefepime and vancomycin. Remains on oral diuretics. The patient is seen today July 03, 2023 in follow-up on the regular medical floor. She is awake and alert in no acute distress. Sitting up in bed. Denies any worsening shortness of breath, cough or congestion. She is down to 2 L/min per nasal cannula. No IV fluids. She is continued on Maxipime and vancomycin. CT scan of the abdomen and pelvis reveals a left rectus hematoma. Moderate cardiomegaly. Moderate to severe diffuse opacities in the lungs could be due to edema atelectasis or infection. Chronic and likely incidental findings. X-ray of the left ankle reveals no evidence of acute fracture. Status post 1 unit of packed red blood cells this admission. Current hemoglobin 8.7. White count 4.5. Platelets 110. Sodium 130. Potassium 4.6. Bicarb 30. BUN 57. Creatinine 1.53. Glucose 87. AST 292. ALT 235. Vancomycin trough 18.0. She remains on DuoNeb inhalations. Oral diuretics. Receiving iron supplements. The patient is seen today July 04, 2023 in follow-up on the regular medical floor. He is currently sitting up in bed. Awake and alert in no acute distress. Maintaining good O2 saturations in the 90s on 2 L/min per nasal cannula. She denies any worsening shortness of breath, cough or congestion. She denies any abdominal pain. No fever or chills. White count 4.6. Hemoglobin 8.7. Platelets 123. Sodium 133. Potassium 4.4. Bicarb 26. BUN 51. Creatinine 1.3. Glucose 97. AST 211. ALT 214. Alk phos 164. Hepatobiliary scan pending. Chest x-ray reveals stable scattered airspace disease unchanged compared to previous. The patient is seen today July 05, 2023 in follow-up on the regular medical floor. She is resting comfortably in bed. Awake and alert in no acute distre ss. She is now on room air. No IV fluids. She remains on cefepime. Continued on bronchodilators. Continued on oral diuretics. Urine culture positive for [place]. Blood cultures revealed no growth. White count 8.0. Hemoglobin 8.6. Platelets 149. Sodium 136. Potassium 4.1. Bicarb 52. Creatinine 1.4. AST 218. ALT 153. Hepatobiliary scan was within normal limits. Currently in a negative 1.6 L balance. The patient is seen today July 06, 2023 in follow-up on the regular medical [facility]. She is sitting up in bed. Family is at the bedside. She remains quite weak and debilitated. She is maintaining good O2 saturations in the 90s on room air. She remains on cefepime. Continued on bronchodilators. Remains on oral diuretics. White count 11.7. Hemoglobin 8.5. Platelets 167. Sodium 137. Potassium 3.4. Bicarb 26. BUN 49. Creatinine 1.1. Glucose 88. The patient is seen today July 07, 2023 in follow-up on the regular medical floor. She is awake and alert in no acute distress. She does remain very weak and debilitated. Not taking much oral intake. White count 12.0. Hemoglobin 8.8. Platelets 189. Sodium 137. Potassium 4.3. Bicarb 25. BUN 52. Creatinine 1.2. Glucose 79. AST 135. ALT 178. She remains in a -750 mL balance. She is continued on DuoNeb inhalations. Remains on oral diuretics. Remains on cefepime. The patient is seen today July 15, 2023 in follow-up on the regular medical floor. She is currently sitting up in bed. Awake and alert in no acute distress. She remains quite weak and debilitated. Her appetite is poor. She has been being considered for a PEG tube placement. Ultrasound of the abdomen revealed a small amount of ascites in the left lower quadrant. Her hemoglobin continues to drift down currently at 7.1. 1 unit of packed red blood cells have been transfused. White count 10.1. Platelets 124. INR 1.4. Sodium 137. Potassium 5.0. Bicarb 19. BUN 63. Creatinine 1.6. Glucose 80. Remains on she is daptomycin. Continued on bronchodilators. Anticoagulated with warfarin. The patient is seen today July 16, 2023 in follow-up on the regular medical floor. She remains awake and alert in no acute distress. Maintaining O2 saturations in the 90s on 2 L/min per nasal cannula. She is on Megace attempting to improve her appetite. She remains on daptomycin. Anticoagulated with warfarin. Continued on bronchodilators. White count 10.1. Hemoglobin 8.6. Platelets 176. INR 1.6. Sodium 134. Potassium 4.8. Bicarb 19. BUN 60. Creatinine 1.31. Glucose 81. Objective - Vital Signs Vital signs: Vital Signs Temp 97.9 F 07/16/23 07:20 Pulse 80 07/16/23 11:15 Resp 20 07/16/23 07:20 BP 95/53 07/16/23 07:20 Pulse Ox 94 L 07/16/23 07:20 FiO2 21 07/05/23 07:54 Intake & Output 07/15/23 07/16/23 07/16/23 18:59 06:59 18:59 Intake Total 310 Output Total 300 400 Balance 10 -400 Weight 56 kg 56.5 kg Intake: Blood Product 310 Rc As-1 Unit 310 [id number] Output: Urine 300 400 Other: Voiding Method Indwelling Catheter Indwelling Catheter Indwelling Catheter # Bowel Movements 5 2 - Exam GENERAL EXAM: Alert, very weak, pleasant 82-year-old female, on room air, in no apparent distress. HEAD: Normocephalic. EYES: Normal reaction of pupils, equal size. NOSE: Clear with pink turbinates. THROAT: No erythema or exudates. NECK: No masses, no JVD. CHEST: No chest wall deformity. LUNGS: Equal air entry with crackles in the bilateral bases. CVS: S1 and S2 normal with no audible murmur, regular rhythm. ABDOMEN: No hepatosplenomegaly, normal bowel sounds, no guarding or rigidity. SPINE: No scoliosis or deformity SKIN: No rashes CENTRAL NERVOUS SYSTEM: No focal deficits, tone is normal in all 4 extremities. EXTREMITIES: There is no peripheral edema. No clubbing, no cyanosis. Peripheral pulses are intact. - Labs CBC & Chem 7: 07/16/23 05:32 07/16/23 05:32 Labs: Abnormal Lab Results - Last 24 Hours (Table) 07/15/23 07/15/23 07/15/23 Range/Units 11:36 16:11 20:47 RBC (3.80-5.40) m/uL Hgb (11.4-16.0) gm/dL Hct (34.0-46.0) % RDW (11.5-15.5) % PT (10.0-12.5) sec INR (<1.2) Sodium (137-145) mmol/L Chloride (98-107) mmol/L Carbon Dioxide (22-30) mmol/L BUN (7-17) mg/dL Creatinine (0.52-1.04) mg/dL POC Glucose (mg/dL) 161 H 187 H (70-110) mg/dL Calcium (8.4-10.2) mg/dL Crossmatch See Detail 07/16/23 07/16/23 07/16/23 Range/Units 05:32 05:32 05:32 RBC 2.77 L (3.80-5.40) m/uL Hgb 8.6 L (11.4-16.0) gm/dL Hct 26.6 L (34.0-46.0) % RDW 18.5 H (11.5-15.5) % PT 16.5 H (10.0-12.5) sec INR 1.6 H (<1.2) Sodium 134 L (137-145) mmol/L Chloride 113 H (98-107) mmol/L Carbon Dioxide 19 L (22-30) mmol/L BUN 60 H (7-17) mg/dL Creatinine 1.31 H (0.52-1.04) mg/dL POC Glucose (mg/dL) (70-110) mg/dL Calcium 7.6 L (8.4-10.2) mg/dL Crossmatch 07/16/23 Range/Units 11:36 RBC (3.80-5.40) m/uL Hgb (11.4-16.0) gm/dL Hct (34.0-46.0) % RDW (11.5-15.5) % PT (10.0-12.5) sec INR (<1.2) Sodium (137-145) mmol/L Chloride (98-107) mmol/L Carbon Dioxide (22-30) mmol/L BUN (7-17) mg/dL Creatinine (0.52-1.04) mg/dL POC Glucose (mg/dL) 129 H (70-110) mg/dL Calcium (8.4-10.2) mg/dL Crossmatch Microbiology - Last 24 Hours (Table) 07/10/23 14:40 Blood Culture - Final Blood Assessment and Plan Assessment: Acute on chronic hypoxic respiratory failure, multifactorial, recovered and on room air or occasionally preferring 2 L Acute on chronic congestive heart failure with preserved ejection fraction hyperdynamic LV with an ejection fraction of 70% Acute anemia with a hemoglobin of 6.9, received 2 units of packed red blood cells, current hemoglobin 8.6 Echogenic material within the gallbladder lumen with masslike appearance. Borderline gallbladder thickening. Hepatobiliary scan within normal limits Hepatic steatosis with ascites adjacent to the liver suspected Transaminitis, trending down Severe mitral stenosis Mild to moderate aortic stenosis Severe pulmonary hypertension with RVSP exceeding 50 mmHg History of COVID-19 pneumonia and healthcare acquired pneumonia, patient was treated with remdesivir on the last admission History of rheumatoid arthritis and possibly some component of interstitial lung disease Severe mitral valve disease with severe mitral stenosis, and mild aortic regurgitation and stenosis. History of rheumatoid arthritis Hypothyroidism Lifelong non-smoker Mild intermittent asthma Acute kidney injury/ATN Failure to thrive Very poor functional performance based on the above-mentioned multiple comorbidities Plan: The patient was seen and evaluated Labs and medications reviewed Prognosis remains guarded Remains very weak and debilitated Plan is for subacute rehab at discharge I have personally seen and examined the patient, performed the documentation and the assessment and plan as written. Number of minutes spent on the visit: 10.
[2023-07-16 16:54] LABS: Glucose,Whole Blood 132 mg/dL (70-110)
[2023-07-16] MEDS: WARFARIN 3 MG TAB PO ONE (17:59)
[2023-07-16 21:11] LABS: Glucose,Whole Blood 182 mg/dL (70-110)
--- NOTE | 2023-07-16 22:45 | P.PN ---
Subjective Progress Note Date: 07/16/23 82-year-old lady with past medical history significant for congestive heart failure, atrial fibrillation with RVR,presented to the ER because of worsening shortness of breath. Patient was only recently discharged on 06/25 after being treated in the hospital for similar complaints.after discharge, patient was all right for 1 day but started noticing that she was getting more short of breath on exertion. Patient denied any chest pain. There was no complain of orthopnea or PND. There was no complain of swelling of feet. There was no complain of fever or chills. Patient oxygen requirements were also increasing so she was transferred back to the ER Initial lab work done in the ER showed WBC 28, hemoglobin 10.5, platelet count 332, INR 3.7, sodium 138, potassium 6.2, BUN 79, creatinine1.71, AST 378, ALT 350, troponin 0.247 EKG done in the ER showed heart rate of 81 , no ST segment elevation or depression seen, no T-wave inversions seen. Chest x-ray done in the ER showed cardiomegaly and moderate vascular congestion Patient admitted to internal medicine service 06/29. Patient seen and examined. Blood work done this morning showed WBC 19.8, hemoglobin 8.6, sodium 135, potassium 4.4, BUN 70, creatinine 1.21. Ox requirements have improved, currently on 6 L of oxygen. Patient is much more talkative compared to yesterday. Answering questions. 07/01/2023 Patient examined today in follow up. Remains on 6L of oxygen, more awake and alert. She continues on clear liquid diet which will be upgraded pending speech therapy recommendations as there is concern for aspiration. Indwelling catheter remains in place for urinary retention with concern for acute UTI which family feels was caused from the IDC placed prior to her previous discharge. She has been started on cefepime and vancomycin with concern for sepsis. White blood cell count has normalized to 5.7. Hemoglobin 7.1. INR 6.4 and warfarin remains on hold. Renal function stable. LFTs remain significantly elevated. 07/02/2023 Patient is evaluated today on the medical floor. Weaned down to 4L of oxygen. LFTs remain elevated. Gallbladder ultrasound completed revealing hepatic steatosis with ascites adjacent to the liver suspected. Echogenic materinal within the gallbladder lumen with masslike appearance. Borderline wall t hickening. Hemoglobin 6.9 today. Patient will receive 1 unit of blood. Covid PCR positive. 07/03/2023 Patient continues to report feeling fatigued. Was able to be weaned down to 2L of oxygen. Does have visible bruising over the left abdomen. Had abdominal pelvis CT done today which reveals a 6.8 x 2.6 x 12 cm left abdominal rectus hematoma. INR has improved down to 1.2 and this will likely only need conservative management however general surgery was consulted. There is also mention of distended gallbladder although no mention of an acute cholecystitis, dilated ducted. Patient has consistently elevated LFTs this could be due to infection however general surgery recommending HIDA scan. Left ankle xray was completed due to the bruising and mild soft tissue swelling patient states this was injured end of March when she fell. There is no acute fracture noted and patient would benefit from icing and elevation as well as light compression. 07/04/2023 Patient is evaluated on the medical floor. Continues to feel fatigued. Has not been out of bed much and has fair appetite. Family has been coming to assist with meal time feeding. General surgery following for the rectus sheath hematoma and INR has normalized and patient is being monitored off coumadin at this time. HIDA scan completed for further evaluation of the gallbladder which was normal. Recommendations for cholecystectomy however after cardiology re-evaluation felt patient was high risk for surgery. Patient has significant valvular heart disease and there is concern for possible interstitial lung disease she will be taken off the amiodarone at this time. Hemoglobin is stable at 8.7. 07/05/2023 Patient is evaluated today sitting up in the chair with at the bedside. Patient has been more awake and alert and has increased appetite. Family has been coming in to help her at every meal. Hemoglobin stable at 8.6. Patient is continued on IV cefepime with ID following closely. Not a surgical candidate. Abdominal bruising improving. IDC remains and family has concerns and would like it removed before discharge to rehab. Patient remains off coumadin at this time with general surgery recommendations to continue holding. INR 1.0 today. 07/06/2023 Patient is seen and evaluated in follow-up this morning currently sitting up in bed asleep although arousable. Patient reports feeling tired and denies any sig nificant pain. General surgery following with no plans of surgical intervention given significant comorbidities and not a surgical candidate. Patient is continued on IV antibiotics with infectious disease following. Nephrology following as well and patient is maintained on fluid restrictions. Oral intake remains poor to fair and is being encouraged to attempt to eat small frequent meals. Patient is currently maintaining oxygen saturations above 90% on room air and pulmonary is following closely. Awaiting PT/OT therapy to reevaluate patient will most definitely need rehab on discharge. 07/07/23 : Patient seen and evaluated at bedside, vitals reviewed, blood work reviewed. CBC showed hemoglobin of 8.8, WBC 12, platelet count 189. Serum chemistry showed sodium 137 potassium 4.3 BUN 52 creatinine 1.2 magnesium of 1.6, patient does complain of nausea, continue to hold Coumadin till hemoglobin stabilized 07/08/23 : Patient seen and evaluated bedside, patient started back on Coumadin hemoglobin 8.8 remained stable, serum chemistry reviewed creatinine 1.09, sodium 136 potassium 3.9 calcium 8.1. Liver profile shows trending down of AST and ALT 07/09/23: Seen and evaluated at bedside, blood work reviewed, WBC 12.8 hemoglobin 7.9, serum chemistry reviewed sodium 134 creatinine 1.2, INR 1.1. Continue to remain on IV antibiotics, patient does have diarrhea and does have fecal manag ement system in place, C. difficile was negative continue patient on Lomotil along with cholestyramine Patient awake and alert, feels very weak and tired and lethargic She follows commands and answers questions appropriately She has mild abdominal distention, she has ongoing diarrhea, C. difficile has been negative and patient placed on antimotility medication like Lomotil Also patient has mild left ankle swelling and bruise, patient denies falling, x- rays requested ( had negative xray about one week ago) Blood pressure chronically borderline, afebrile and rest of vital stable, Labs reviewed, INR 1.1, has leukocytosis of 15.2, hemoglobin slightly low at 7.9 down to 7.7. Creatinine pending pt currentlyon Eraxis, Coumadin and cholestyramine and Lasix 40 mg discussed with the bedside daughter at bedside and she verbalized understanding and acceptance Discussed with staff 07/11/2023 Patient awake alert, she is slightly drowsy, she slept more than 3 hours this morning, daughter at bedside and patient she is still sleepy although she is improving compared to yesterday Patient herself feels fine. Daughter discussed with mother to discuss continue Zoloft for her sleepiness but patient's wants to keep it stating that it helped her become less anxious. Because the patient is more and oriented today. She is able to eat this morning. Yesterday she has some abdominal distention, KUB reviewed by myself showing gastric distention which is looks resolved now. Abdomen is not distended now. No bowel movement of diarrhea. She has mild bilateral leg edema and I believe this is given today. Blood pressure is at baseline, low normal with systolic 90-100. Resume Coumadin and follow-up INR. Patient remains on the Eraxis Repeat urine analysis still abnormal, urine culture is pending. Plan to discontinue Caldwell catheter and bladder check 07/12/2023 pt is still not eating much despite encouragement , last week she passed swallow evaluation because she was losing muscle back in her throat, she was placed on chopped diet however still her appetite is poor. The patient is on the case and she is prescribed Ensure and other encouragement. However patient denies nausea. Discussed with staff we are going to do call for nutrition consult since she has prolonged malnutrition she might benefit from parenteral or other form of enteral feeding like via NG tube. Otherwise we expect patient to continue to deteriorate. Patient has this gallbladder mass, surgery team on the case and they patient poor surgical candidate. Family also declines surgical intervention like debridement of her sacral wound. Her abdomen is soft and there is no RUQ tenderness or pain. She remains on Eraxis. Urine culture is repeated. Still pending. Caldwell catheter was discontinued yesterday and she was retaining more than 300 last night and she had to be straight cath. We contacted [facility] and if still continued to do rate then we may consider replacing the Caldwell catheter in again. Fecal management sy stem is leaking and there is no obvious diarrhea currently there probably can be discontinued and monitored. She remains on Coumadin. INR still subtherapeutic. Patient still on leukocytosis and she is covered with Eraxis but there is no fever Procalcitonin is checked and is mildly coming down 1.1 down from 0.8. For more than a week indicating persistent abnormality Discussed with the bedside nurse and leather case finisher. 07/13/23: Patient seen and evaluated bedside, blood work reviewed, serum chemistry reviewed, sodium 136 creatinine 1.9 liver profile trending down, INR 1.1, care plan discussed with daughter at bedside, dose of Synthyroid increase started on appetite stimulant 07/14/23: Patient seen and evaluated bedside overnight patient had episode of hypotension, Lasix placed on hold patient given fluid bolus, dose of midodrine increased to 10 mg 3 times daily as well. Blood work reviewed including CBC and hemoglobin remained stable electrolyte panel reviewed as well. Patient does have preserved ejection fraction with EF of around 70% that was checked earlier in the hospitalization 07/15/23: Patient seen and evaluated bedside, blood work reviewed, hemoglobin 7.1, 1 unit of packed RBC ordered, follow-up on INR levels, 1.4, serum chemistry reviewed sodium 137 potassium 5, creatinine 1.6. Patient started on daptomycin by infectious culture growing VRE. Upon evaluation patient states she feels better, chills have improved as well does complain of weakness 07/16/2023 Patient is awake and alert but is lethargic and weak. Currently requiring 2 L oxygen via nasal cannula. Patient does have poor oral intake. Denies any nausea or vomiting. No diarrhea. Patient has been afebrile. On antibiotics with daptomycin due to VRE. Currently on Coumadin dosing and dronedarone and metoprolol for atrial fibrillation. Renal function is improving. Laboratory data showed WBC 10.1 hemoglobin 8.6 and platelets 173, sodium 134 potassium 4.8 chloride 113 bicarb is 19 BUN 16 creatinine 1.31 and calcium 7.6. PHYSICAL EXAMINATION: Patient is lying in the bed, no acute distress, awake alert but patient is lethargic and weak... HEENT: Normocephalic. Neck is supple. Pupils reactive. Nostrils clear. Oral cavity is moist. Neck reveals no JVD, carotid bruits, or thyromegaly. CHEST EXAMINATION: Trachea is central. Symmetrical expansion. Bibasilar diminished sounds. No wheezing or rhonchi.. CARDIAC: Normal S1, S2 with no gallops. No murmurs ABDOMEN: Soft. Bowel sounds normal. No organomegaly. No abdominal bruits. Extremities: reveal no edema. No clubbing or cyanosis Neurologically awake, alert, oriented x 1-2 able to move all extremities. No gross focal deficits noted Skin: No rash or skin lesions. Psychiatric: Coperative. Could not be assessed completely Musculoskeletal: No joint swelling or deformity. Assessment and plan * Left abdominal rectus sheath hematoma improved * Acute on chronic diastolic heart failure; Moderate to severe mitral calcification, moderate to severe mitral stenosis, mild aortic regurgitation and stenosis, Severe Pulmonary hypertension WHO class II. * Acute hypoxic respiratory failure due to asthma exacerbation; was requiring 6L and has weaned to 2 L. * Non-ST elevation MT * Hyperkalemia RESOLVED * Anemia iron deficient with acute blood loss anemia from the left rectus sheath hematoma * Acute transaminitis with concern for acute cholecystitis, HIDA scan normal. Not a surgical candidate at this time. * Urinary tract infection with VRE * Acute kidney injury due to ATN severe sepsis. Improving. * Recent hospitalization for COVID in May, PCR still positive; not in active infection. * Supratherapeutic INR on admission while on Coumadin * Paroxysmal atrial fibrillation * History of coronary artery disease with previous PCI/stent x3 * History of hyperlipidemia * History of hypertension * Rheumatoid arthritis * History of hypothyroidism * Mild protein calorie malnutrition * Stage 2 pressure injury on right and left buttock present on admission * Sacral decubitus ulcer, unstageable present on admission. * Lifelong non-smoker Plan * In regards to atrial fibrillation patient was started on amiodarone and Coumadin however amiodarone was discontinued and patient was transition to dronedarone , continue telemonitoring * In regards to [id number] continue patient on midodrine for blood pressure support, Lasix placed on hold on 07/13 due to hypotension * In regards to urinary tract infection and pneumonia , was on cefepime, completed antibiotic course, already started on daptomycin by infectious disease secondary to VRE * In regards to anemia patient given IV iron replacement , received 1 unit of packed RBC earlier in hospitalization second unit ordered on 07/15/2023 * In regards to rectus sheath hematoma and anemia >> Coumadin resumed 07/07 follow-up on INR 1.4, monitor hemoglobin * In regards to generalized debility and dysphagia patient seen by speech therapy as well as physical therapy patient was started on amiodarone and warfarin back on 06/18 due to findings of atrial fibrillation with RVR and severe mitral stenosis. Cardiology has concerns for interstitial lung disease and amiodarone has been discontinued. Patient has been started on dronedarone. * In regards to hypothyroidism continue patient on Synthyroid follow-up on TSH in 4 weeks * In regards to malnutrition patient started on Megace * Due to multiple complex medical issues, overall prognosis is guarded. PT OT is on board. Will discuss with family regarding goals of care. Objective - Vital Signs Vital signs: Vital Signs Temp 97.9 F 07/16/23 07:20 Pulse 85 07/16/23 07:20 Resp 20 07/16/23 07:20 BP 95/53 07/16/23 07:20 Pulse Ox 94 L 07/16/23 07:20 FiO2 21 07/05/23 07:54 Intake & Output 07/15/23 07/16/23 07/16/23 18:59 06:59 18:59 Intake Total 310 Output Total 300 400 Balance 10 -400 Weight 56 kg 56.5 kg Intake: Blood Product 310 Rc As-1 Unit 310 [id number] Output: Urine 300 400 Other: Voiding Method Indwelling Catheter Indwelling Catheter # Bowel Movements 5 2 - Labs CBC & Chem 7: 07/16/23 05:32 07/16/23 05:32 Labs: Abnormal Lab Results - Last 24 Hours (Table) 07/12/23 07/15/23 07/15/23 Range/Units 06:49 11:15 11:36 RBC (3.80-5.40) m/uL Hgb (11.4-16.0) gm/dL Hct (34.0-46.0) % RDW (11.5-15.5) % Promyelocytes # (Man) 0.14 H (0) k/uL PT (10.0-12.5) sec INR (<1.2) Sodium (137-145) mmol/L Chloride (98-107) mmol/L Carbon Dioxide (22-30) mmol/L BUN (7-17) mg/dL Creatinine (0.52-1.04) mg/dL POC Glucose (mg/dL) 167 H (70-110) mg/dL Calcium (8.4-10.2) mg/dL Crossmatch See Detail 07/15/23 07/15/23 07/16/23 Range/Units 16:11 20:47 05:32 RBC (3.80-5.40) m/uL Hgb (11.4-16.0) gm/dL Hct (34.0-46.0) % RDW (11.5-15.5) % Promyelocytes # (Man) (0) k/uL PT 16.5 H (10.0-12.5) sec INR 1.6 H (<1.2) Sodium (137-145) mmol/L Chloride (98-107) mmol/L Carbon Dioxide (22-30) mmol/L BUN (7-17) mg/dL Creatinine (0.52-1.04) mg/dL POC Glucose (mg/dL) 161 H 187 H (70-110) mg/dL Calcium (8.4-10.2) mg/dL Crossmatch 07/16/23 07/16/23 Range/Units 05:32 05:32 RBC 2.77 L (3.80-5.40) m/uL Hgb 8.6 L (11.4-16.0) gm/dL Hct 26.6 L (34.0-46.0) % RDW 18.5 H (11.5-15.5) % Promyelocytes # (Man) (0) k/uL PT (10.0-12.5) sec INR (<1.2) Sodium 134 L (137-145) mmol/L Chloride 113 H (98-107) mmol/L Carbon Dioxide 19 L (22-30) mmol/L BUN 60 H (7-17) mg/dL Creatinine 1.31 H (0.52-1.04) mg/dL POC Glucose (mg/dL) (70-110) mg/dL Calcium 7.6 L (8.4-10.2) mg/dL Crossmatch Microbiology - Last 24 Hours (Table) 07/10/23 14:40 Blood Culture - Final Blood Assessment and Plan Time with Patient: Greater than 30
[2023-07-17 05:54] LABS: Glucose,Whole Blood 97 mg/dL (70-110)
[2023-07-17 06:05] LABS: African American GFR (CKD) 55 (>60 ml/min/1.73 sqM); Anion Gap 0 mmol/L; Blood Urea Nitrogen 59 mg/dL (7-17); Calcium 7.5 mg/dL (8.4-10.2); Carbon Dioxide 22 mmol/L (22-30); Chloride 112 mmol/L (98-107); Glucose 84 mg/dL (74-99); Non-African American GFR(CKD) 48 (>60 ml/min/1.73 sqM); Sodium 134 mmol/L (137-145)
[2023-07-17 06:17] LABS: INR 1.9 (<1.2); Prothrombin Time 18.8 sec (10.0-12.5)
[2023-07-17 06:18] LABS: Anisocytosis Slight; HCT 26.9 % (34.0-46.0); HGB 8.4 gm/dL (11.4-16.0); Hypochromasia Slight; MCH 30.1 pg (25.0-35.0); MCHC 31.3 g/dL (31.0-37.0); Macrocytosis Slight; Mean Platelet Volume 9.1; Platelet Count 178 k/uL (150-450); Poikilocytosis Slight; RBC 2.81 m/uL (3.80-5.40); RDW 18.3 % (11.5-15.5); WBC 7.7 k/uL (3.8-10.6)
[2023-07-17] MEDS: NYSTATIN 100,000 UNIT/ML SUSP 500,000 UNIT/5 ML CUP PO SCH (09:40)
--- NOTE | 2023-07-17 10:30 | P.PN ---
Subjective Progress Note Date: 07/17/23 CHIEF COMPLAINT: Shortness of breath HISTORY OF PRESENT ILLNESS: Surgical service following in regards to patient's acute cholecystitis and Left rectus sheath hematoma. Patient reports no abdominal pain. She tolerated diet. Eating a small amount. She is sitting up in bed. Afebrile. WBC 7.7 Hgb 8.4 PHYSICAL EXAM: VITAL SIGNS: Reviewed. GENERAL: no acute distress. ABDOMEN: Soft. Nondistended. ASSESSMENT: 1. Acute cholecystitis. Echogenic material within the gallbladder lumen with masslike appearance and borderline gallbladder wall thickening noted on ultrasound 2. Elevated LFTs 3. Left abdominal rectus sheath hematoma with Coumadin toxicity present on admission 4. Acute blood loss anemia due to rectus sheath hematoma requiring blood transfusion 5. Sacral decubitus ulcer and ulceration posterior left upper thigh PLAN: -Patient is a poor surgical candidate. No surgical intervention planned. Patient reports no abdominal pain. She is tolerating diet. -Recommend no debridement of the sacral and upper left posterior thigh. -Continue local wound care -Continue offloading -Continue medical management -Continue low-fat diet Physician Photographic Equipment Mechanic note has been reviewed by physician. Signing provider agrees with the documented findings, assessment, and plan of care. Objective - Vital Signs Vital signs: Vital Signs Temp 97.6 F 07/17/23 07:28 Pulse 68 07/17/23 10:08 Resp 20 07/17/23 07:28 BP 80/49 07/17/23 07:28 Pulse Ox 96 07/17/23 10:00 FiO2 21 07/05/23 07:54 Intake & Output 07/16/23 07/17/23 07/17/23 18:59 06:59 18:59 Output Total 450 300 Balance -450 -300 Weight 60 kg Output: Urine 450 300 Other: Voiding Method Indwelling Catheter # Bowel Movements 1 1 - Labs CBC & Chem 7: 07/17/23 05:14 07/17/23 05:14 Labs: Abnormal Lab Results - Last 24 Hours (Table) 07/16/23 07/16/23 07/16/23 Range/Units 11:36 16:50 21:09 RBC (3.80-5.40) m/uL Hgb (11.4-16.0) gm/dL Hct (34.0-46.0) % RDW (11.5-15.5) % PT (10.0-12.5) sec INR (<1.2) Sodium (137-145) mmol/L Chloride (98-107) mmol/L BUN (7-17) mg/dL Creatinine (0.52-1.04) mg/dL POC Glucose (mg/dL) 129 H 132 H 182 H (70-110) mg/dL Calcium (8.4-10.2) mg/dL 07/17/23 07/17/23 07/17/23 Range/Units 05:14 05:14 05:14 RBC 2.81 L (3.80-5.40) m/uL Hgb 8.4 L (11.4-16.0) gm/dL Hct 26.9 L (34.0-46.0) % RDW 18.3 H (11.5-15.5) % PT 18.8 H (10.0-12.5) sec INR 1.9 H (<1.2) Sodium 134 L (137-145) mmol/L Chloride 112 H (98-107) mmol/L BUN 59 H (7-17) mg/dL Creatinine 1.10 H (0.52-1.04) mg/dL POC Glucose (mg/dL) (70-110) mg/dL Calcium 7.5 L (8.4-10.2) mg/dL
[2023-07-17 11:18] LABS: Glucose,Whole Blood 115 mg/dL (70-110)
--- NOTE | 2023-07-17 11:24 | P.PN ---
Subjective Patient is seen in follow-up for acute kidney injury. Renal function better. Diuretics held. Receiving IV hydration. Oral intake fair. Nonoliguric. Vital signs - blood pressure on the lower side. General: No acute distress. HEENT: Head exam is unremarkable. LUNGS: No audible rhonchi or wheezes. HEART: Rate and Rhythm are regular. ABDOMEN: Nontender. EXTREMITITES: 1+ edema. Objective - Vital Signs Vital signs: Vital Signs Temp 97.6 F 07/17/23 07:28 Pulse 68 07/17/23 10:08 Resp 20 07/17/23 07:28 BP 80/49 07/17/23 07:28 Pulse Ox 96 07/17/23 10:00 FiO2 21 07/05/23 07:54 Intake & Output 07/16/23 07/17/23 07/17/23 18:59 06:59 18:59 Output Total 450 300 Balance -450 -300 Weight 60 kg Output: Urine 450 300 Other: Voiding Method Indwelling Catheter Indwelling Catheter # Bowel Movements 1 1 - Labs CBC & Chem 7: 07/17/23 05:14 07/17/23 05:14 Labs: Abnormal Lab Results - Last 24 Hours (Table) 07/16/23 07/16/23 07/16/23 Range/Units 11:36 16:50 21:09 RBC (3.80-5.40) m/uL Hgb (11.4-16.0) gm/dL Hct (34.0-46.0) % RDW (11.5-15.5) % PT (10.0-12.5) sec INR (<1.2) Sodium (137-145) mmol/L Chloride (98-107) mmol/L BUN (7-17) mg/dL Creatinine (0.52-1.04) mg/dL POC Glucose (mg/dL) 129 H 132 H 182 H (70-110) mg/dL Calcium (8.4-10.2) mg/dL 07/17/23 07/17/23 07/17/23 Range/Units 05:14 05:14 05:14 RBC 2.81 L (3.80-5.40) m/uL Hgb 8.4 L (11.4-16.0) gm/dL Hct 26.9 L (34.0-46.0) % RDW 18.3 H (11.5-15.5) % PT 18.8 H (10.0-12.5) sec INR 1.9 H (<1.2) Sodium 134 L (137-145) mmol/L Chloride 112 H (98-107) mmol/L BUN 59 H (7-17) mg/dL Creatinine 1.10 H (0.52-1.04) mg/dL POC Glucose (mg/dL) (70-110) mg/dL Calcium 7.5 L (8.4-10.2) mg/dL 07/17/23 Range/Units 11:17 RBC (3.80-5.40) m/uL Hgb (11.4-16.0) gm/dL Hct (34.0-46.0) % RDW (11.5-15.5) % PT (10.0-12.5) sec INR (<1.2) Sodium (137-145) mmol/L Chloride (98-107) mmol/L BUN (7-17) mg/dL Creatinine (0.52-1.04) mg/dL POC Glucose (mg/dL) 115 H (70-110) mg/dL Calcium (8.4-10.2) mg/dL Assessment and Plan Plan: Assessment: 1. Acute kidney injury secondary to ATN secondary to severe sepsis. Was also on Bactrim prior to admission. No hydronephrosis noted on kidney ultrasound/CT. Renal function better. Nonoliguric. 2. Chronic diastolic CHF with severe pulmonary hypertension, mild to moderate aortic stenosis, moderate aortic regurgitation, severe mitral stenosis. 3. Hyperkalemia secondary to acute kidney injury on Bactrim. Improved. 4. Edema. Partially third spacing from hypoalbuminemia. 5. Acute blood loss anemia. Status post blood transfusion this admission. A lso received IV iron. On Aranesp. Defer blood transfusions to primary team and surgery. 6. Hyponatremia from poor solute intake. Hypervolemic. Stable. 7. Acute COVID infection. 8. Left abdominal rectus sheath hematoma. Surgery following. 9. Protein calorie malnutrition with albumin level of 2.0. s/p IV albumin 07/12/23. 10. Urinary retention. Caldwell catheter had to be reinserted. On Flomax. 11. Metabolic acidosis secondary to acute kidney injury. On oral bicarb. Better. Plan: Encouraged oral intake. Maintain 1500 cc fluid restriction. Avoid nephrotoxins. Continue to monitor renal function and urine output. Maintain midodrine. Hold for systolic blood pressure greater than 110. A.m. cortisol level not low. Consider trial with IV steroids to see if it improves blood pressure. Defer to primary team. Prednisone listed as patient's allergy. Prognosis guarded.
[2023-07-17 12:30] LABS: Band Neutrophils % 8 %; Lymphocytes # (M) 1.31 k/uL (1.0-4.8); Monocytes # (M) 0.85 k/uL (0-1.0); Myelocytes # (M) 0.15 k/uL (0); Myelocytes % 2 %; Neutrophils % (M) 62 %; Nucleated Red Blood Cells 0 /100 WBC (0-0); Total Cells Counted 200
--- NOTE | 2023-07-17 13:09 | P.PN ---
Subjective Progress Note Date: 07/17/23 This is an 82-year-old female, familiar to my service, patient was recently in the hospital with acute COVID-19 pneumonia, congestive heart failure, atrial fibrillation with RVR, possible underlying interstitial lung disease, patient was discharged on 06/26/2023, pulmonary service has seen this patient initially on 06/09/2023, at that time the patient was admitted with acute hypoxic respiratory failure, acute COVID-19 pneumonia, chronic bronchial asthma, and possible hospital-acquired pneumonia. In addition the patient had mild intermittent asthma, congestive heart failure, severe mitral calcification and moderate to severe mitral stenosis with preserved LV function and preserved ejection fraction. She also has history of rheumatoid arthritis, hypothyroidism, and lifelong non-smoker. We saw this patient last on 06/26/2023,, she was on 2 L nasal cannula, her labs were unremarkable, her sputum cultures were nondiagnostic, blood cultures were nondiagnostic, she had relatively normal renal profile, and she was at the time on warfarin, Symbicort, Singulair and albuterol. Patient was discharged to the [facility] on the [place]. Patient was discharged on amiodarone, Coumadin, prednisone 20 mg daily, Lopressor, and nystatin swish and swallow. Otherwise the patient was kept on her usual medications including Symbicort, Jardiance, levothyroxine, Singulair, Fosamax, ascorbic acid, atorvastatin, Lasix 40 mg p.o. daily, and Xanax. As well as albuterol. Patient was sent from the [facility] down to the ER today mostly because of low O2 saturation, and patient was noted to have some shortness of breath. Chest x-ray on this admission showed cardiomegaly and mild pulmonary vascular congestion, no clear-cut evidence of pneumonia. As a matter fact her chest x-ray shows significant improvement compared to her initial chest x-ray on her last admission. In addition to her shortness of breath, patient was noted to have abnormal labs with a potassium of 6.2, her BUN is 79 and creatinine 1.71. Patient was also noted to have elevated BNP level of 27,000 and troponin leak. ABG on 50% FiO2 showed a pO2 of 69 pCO2 48 pH of 7.54. Patient is now on 3 L nasal cannula, seems to be comfortable, not in distress. Seen by nephrology for her acute kidney injury, ATN, hyperkalemia with acute kidney injury and apparently the patient was on Bactrim and the recommendation by nephrology was to continue with IV fluids, IV antibiotics, and repeat labs in AM. Patient has a very poor urine output, I did recommend a fluid bolus of 500 cc of saline while in the ER, blood pressure is marginal. Considering her marginal low blood pressure, I am recommending that the patient goes to the ICU. Nephrology is addressing her abnormal renal profile and hyperkalemia The patient is seen today June 30, 2023 in follow-up in the emergency department. She is currently sitting up in the stretcher. Awake and alert in no acute distress. Doing quite a bit better today compared to yesterday. Tolerating a clear liquid breakfast. Maintaining O2 saturations in the upper 90s on 6 L/min per nasal cannula. She has been afebrile. Hemodynamically stable. X-ray reveals some diffuse hazy and patchy bilateral airspace disease. Blood cultures are pending. White count 19.8. Hemoglobin 8.6. Platelets 210. Sodium 135. Potassium 4.4. Bicarb 32. BUN 70. Creatinine 1.21. Glucose 149. AST 250. ALT 242. Alk phos 403. Echocardiogram reveals a hyperdynamic LV with a EF around 70%. There is severe mitral stenosis and moderate aortic stenosis. Severe pulmonary hypertension with an RVSP exceeding 50 mmHg. She is continued on DuoNeb ventilations, IV diuretics, antibiotics in the form of vancomycin and cefepime. Procalcitonin pending. The patient is seen today July 01, 2023 in follow-up on the regular medical floor. She is currently sitting up in bed. Awake and alert in no acute distress. She is maintaining O2 saturations in the 90s on 6 L high flow nasal cannula. Her procalcitonin was 1.16. She remains on cefepime and vancomycin. Cultures are pending. Creatinine 1.18. Glucose 121. INR 6.4. She remains on bronchodilators, oral diuretics, anticoagulated with warfarin. The patient is seen today July 02, 2023 in follow-up on the regular medical floor. She is currently resting in bed. Awake and alert in no acute distress. She is maintaining good O2 saturations up to 100% on 6 L/min per nasal cannula. She is afebrile. Hemodynamically stable. Ultrasound of the abdomen reveals hepatic steatosis with ascites adjacent to the liver. Echogenic material within the gallbladder lumen with masslike appearance. Borderline gallbladder wall thickening. Hemoglobin 6.9. She is receiving 1 unit of packed red blood cells. Platelets 113. White count 4.7. INR 2.3. Sodium 135. Potassium 5.3. Bicarb 29. BUN 58. Creatinine 1.4. Glucose 103. She is continued on DuoNeb inh alations, cefepime and vancomycin. Remains on oral diuretics. The patient is seen today July 03, 2023 in follow-up on the regular medical floor. She is awake and alert in no acute distress. Sitting up in bed. Denies any worsening shortness of breath, cough or congestion. She is down to 2 L/min per nasal cannula. No IV fluids. She is continued on Maxipime and vancomycin. CT scan of the abdomen and pelvis reveals a left rectus hematoma. Moderate cardiomegaly. Moderate to severe diffuse opacities in the lungs could be due to edema atelectasis or infection. Chronic and likely incidental findings. X-ray of the left ankle reveals no evidence of acute fracture. Status post 1 unit of packed red blood cells this admission. Current hemoglobin 8.7. White count 4.5. Platelets 110. Sodium 130. Potassium 4.6. Bicarb 30. BUN 57. Creatinine 1.53. Glucose 87. AST 292. ALT 235. Vancomycin trough 18.0. She remains on DuoNeb inhalations. Oral diuretics. Receiving iron supplements. The patient is seen today July 04, 2023 in follow-up on the regular medical floor. He is currently sitting up in bed. Awake and alert in no acute distress. Maintaining good O2 saturations in the 90s on 2 L/min per nasal cannula. She denies any worsening shortness of breath, cough or congestion. She denies any abdominal pain. No fever or chills. White count 4.6. Hemoglobin 8.7. Platelets 123. Sodium 133. Potassium 4.4. Bicarb 26. BUN 51. Creatinine 1.3. Glucose 97. AST 211. ALT 214. Alk phos 164. Hepatobiliary scan pending. Chest x-ray reveals stable scattered airspace disease unchanged compared to previous. The patient is seen today July 05, 2023 in follow-up on the regular medical floor. She is resting comfortably in bed. Awake and alert in no acute distre ss. She is now on room air. No IV fluids. She remains on cefepime. Continued on bronchodilators. Continued on oral diuretics. Urine culture positive for Chaparrita. Blood cultures revealed no growth. White count 8.0. Hemoglobin 8.6. Platelets 149. Sodium 136. Potassium 4.1. Bicarb 52. Creatinine 1.4. AST 218. ALT 153. Hepatobiliary scan was within normal limits. Currently in a negative 1.6 L balance. The patient is seen today July 06, 2023 in follow-up on the regular medical [facility] or. She is sitting up in bed. Family is at the bedside. She remains quite weak and debilitated. She is maintaining good O2 saturations in the 90s on room air. She remains on cefepime. Continued on bronchodilators. Remains on oral diuretics. White count 11.7. Hemoglobin 8.5. Platelets 167. Sodium 137. Potassium 3.4. Bicarb 26. BUN 49. Creatinine 1.1. Glucose 88. The patient is seen today July 07, 2023 in follow-up on the regular medical floor. She is awake and alert in no acute distress. She does remain very weak and debilitated. Not taking much oral intake. White count 12.0. Hemoglobin 8.8. Platelets 189. Sodium 137. Potassium 4.3. Bicarb 25. BUN 52. Creatinine 1.2. Glucose 79. AST 135. ALT 178. She remains in a -750 mL balance. She is continued on DuoNeb inhalations. Remains on oral diuretics. Remains on cefepime. The patient is seen today July 15, 2023 in follow-up on the regular medical floor. She is currently sitting up in bed. Awake and alert in no acute distress. She remains quite weak and debilitated. Her appetite is poor. She has been being considered for a PEG tube placement. Ultrasound of the abdomen revealed a small amount of ascites in the left lower quadrant. Her hemoglobin continues to drift down currently at 7.1. 1 unit of packed red blood cells have been transfused. White count 10.1. Platelets 124. INR 1.4. Sodium 137. Potassium 5.0. Bicarb 19. BUN 63. Creatinine 1.6. Glucose 80. Remains on she is daptomycin. Continued on bronchodilators. Anticoagulated with warfarin. The patient is seen today July 16, 2023 in follow-up on the regular medical floor. She remains awake and alert in no acute distress. Maintaining O2 saturations in the 90s on 2 L/min per nasal cannula. She is on Megace attempting to improve her appetite. She remains on daptomycin. Anticoagulated with warfarin. Continued on bronchodilators. White count 10.1. Hemoglobin 8.6. Platelets 176. INR 1.6. Sodium 134. Potassium 4.8. Bicarb 19. BUN 60. Creatinine 1.31. Glucose 81. The patient is seen today July 17, 2023 in follow-up on the regular medical floor. She is sitting up in bed. Awake and alert. Maintaining good O2 saturations in the upper 90s on room air. Afebrile. Hemodynamically stable. Urine culture was positive for Chaparrita and Enterococcus gallinarum. She remains on daptomycin. White count 7.7. Hemoglobin 8.4. Platelets 178. INR 1.9. Sodium 134. Potassium 5.0. Bicarb 22. BUN 59. Creatinine 1.10. Glucose 84. She remains on Megace. Continued on bronchodilators. Anticoagulated with warfarin. Objective - Vital Signs Vital signs: Vital Signs Temp 97.6 F 07/17/23 07:28 Pulse 68 07/17/23 10:08 Resp 20 07/17/23 07:28 BP 90/50 07/17/23 12:18 Pulse Ox 96 07/17/23 10:00 FiO2 21 07/05/23 07:54 Intake & Output 07/16/23 07/17/23 07/17/23 18:59 06:59 18:59 Output Total 450 300 Balance -450 -300 Weight 60 kg Output: Urine 450 300 Other: Voiding Method Indwelling Catheter Indwelling Catheter # Bowel Movements 1 1 - Exam GENERAL EXAM: Alert, very weak, frail 82-year-old female, on 2 L nasal cannula, in no apparent distress. HEAD: Normocephalic. EYES: Normal reaction of pupils, equal size. NOSE: Clear with pink turbinates. THROAT: No erythema or exudates. NECK: No masses, no JVD. CHEST: No chest wall deformity. LUNGS: Equal air entry with crackles in the bilateral bases. CVS: S1 and S2 normal with no audible murmur, regular rhythm. ABDOMEN: No hepatosplenomegaly, normal bowel sounds, no guarding or rigidity. SPINE: No scoliosis or deformity SKIN: No rashes CENTRAL NERVOUS SYSTEM: No focal deficits, tone is normal in all 4 extremities. EXTREMITIES: There is no peripheral edema. No clubbing, no cyanosis. P eripheral pulses are intact. - Labs CBC & Chem 7: 07/17/23 05:14 07/17/23 05:14 Labs: Abnormal Lab Results - Last 24 Hours (Table) 07/16/23 07/16/23 07/17/23 Range/Units 16:50 21:09 05:14 RBC (3.80-5.40) m/uL Hgb (11.4-16.0) gm/dL Hct (34.0-46.0) % RDW (11.5-15.5) % Myelocytes # (Manual) (0) k/uL PT 18.8 H (10.0-12.5) sec INR 1.9 H (<1.2) Sodium (137-145) mmol/L Chloride (98-107) mmol/L BUN (7-17) mg/dL Creatinine (0.52-1.04) mg/dL POC Glucose (mg/dL) 132 H 182 H (70-110) mg/dL Calcium (8.4-10.2) mg/dL 07/17/23 07/17/23 07/17/23 Range/Units 05:14 05:14 11:17 RBC 2.81 L (3.80-5.40) m/uL Hgb 8.4 L (11.4-16.0) gm/dL Hct 26.9 L (34.0-46.0) % RDW 18.3 H (11.5-15.5) % Myelocytes # (Manual) 0.15 H (0) k/uL PT (10.0-12.5) sec INR (<1.2) Sodium 134 L (137-145) mmol/L Chloride 112 H (98-107) mmol/L BUN 59 H (7-17) mg/dL Creatinine 1.10 H (0.52-1.04) mg/dL POC Glucose (mg/dL) 115 H (70-110) mg/dL Calcium 7.5 L (8.4-10.2) mg/dL Assessment and Plan Assessment: Acute on chronic hypoxic respiratory failure, multifactorial, recovered and on room air or occasionally preferring 2 L nasal cannula Acute on chronic congestive heart failure with preserved ejection fraction hyperdynamic LV with an ejection fraction of 70% Acute anemia with a hemoglobin of 6.9, received 2 units of packed red blood cells, current hemoglobin 8.4 Echogenic material within the gallbladder lumen with masslike appearance. Borderline gallbladder thickening. Hepatobiliary scan within normal limits Hepatic steatosis with ascites adjacent to the liver suspected Transaminitis, trending down Severe mitral stenosis Mild to moderate aortic stenosis Severe pulmonary hypertension with RVSP exceeding 50 mmHg History of COVID-19 pneumonia and healthcare acquired pneumonia, patient was treated with remdesivir on the last admission History of rheumatoid arthritis and possibly some component of interstitial lung disease Severe mitral valve disease with severe mitral stenosis, and mild aortic regu rgitation and stenosis. History of rheumatoid arthritis Hypothyroidism Lifelong non-smoker Mild intermittent asthma Acute kidney injury/ATN Failure to thrive Very poor functional performance based on the above-mentioned multiple comorbidities Plan: The patient was seen and evaluated Labs and medications reviewed Prognosis remains poor Remains very weak and debilitated Very minimal oral intake despite Megace Recommend a DNR/DNI CODE STATUS Recommend hospice care I have personally seen and examined the patient, performed the documentation and the assessment and plan as written. Number of minutes spent on the visit: 10.
[2023-07-17 16:34] LABS: Glucose,Whole Blood 311 mg/dL (70-110)
[2023-07-17 16:59] LABS: Glucose,Whole Blood 159 mg/dL (70-110)
[2023-07-17] MEDS: SODIUM CHLORIDE 0.9% IVPB SCH (17:18)
[2023-07-17] MEDS: DAPTOMYCIN IVPB SCH (17:18)
[2023-07-17] MEDS: WARFARIN 3 MG TAB PO ONE (17:27)
[2023-07-17 20:38] LABS: Glucose,Whole Blood 127 mg/dL (70-110)
[2023-07-18 04:36] LABS: INR 2.6 (<1.2)
[2023-07-18 05:49] LABS: Glucose,Whole Blood 115 mg/dL (70-110)
[2023-07-18 05:49] LABS: Glucose,Whole Blood 122 mg/dL (70-110)
[2023-07-18 09:04] LABS: BUN/Creat Ratio 48.27 Ratio (12.00-20.00); Blood Urea Nitrogen 53.1 mg/dL (9.0-27.0); Calcium 7.7 mg/dL (8.7-10.3); Carbon Dioxide 18.5 mmol/L (21.6-31.8); Chloride 107 mmol/L (96-109); Glucose 95 mg/dL (70-110); Potassium 5.5 mmol/L (3.5-5.5); Sodium 135 mmol/L (135-145)
--- NOTE | 2023-07-18 09:11 | XR ---
EXAMINATION TYPE: XR chest 1V portable DATE OF EXAM: 07/18/2023 Comparison: 07/14/2023 Clinical History: 82-year-old female r/o aspiration Findings: Heart remains mildly enlarged. Worsening bilateral patchy confluent airspace opacities. No sizable pl eural effusion on the frontal view. Impression: Interval worsening in bilateral patchy and confluent airspace disease.
--- NOTE | 2023-07-18 09:20 | P.PN ---
Subjective Progress Note Date: 07/17/23 82-year-old lady with past medical history significant for congestive heart failure, atrial fibrillation with RVR,presented to the ER because of worsening shortness of breath. Patient was only recently discharged on 06/25 after being treated in the hospital for similar complaints.after discharge, patient was all right for 1 day but started noticing that she was getting more short of breath on exertion. Patient denied any chest pain. There was no complain of orthopnea or PND. There was no complain of swelling of feet. There was no complain of fever or chills. Patient oxygen requirements were also increasing so she was transferred back to the ER Initial lab work done in the ER showed WBC 28, hemoglobin 10.5, platelet count 332, INR 3.7, sodium 138, potassium 6.2, BUN 79, creatinine1.71, AST 378, ALT 350, troponin 0.247 EKG done in the ER showed heart rate of 81 , no ST segment elevation or depression seen, no T-wave inversions seen. Chest x-ray done in the ER showed cardiomegaly and moderate vascular congestion Patient admitted to internal medicine service 06/29. Patient seen and examined. Blood work done this morning showed WBC 19.8, hemoglobin 8.6, sodium 135, potassium 4.4, BUN 70, creatinine 1.21. Ox requirements have improved, currently on 6 L of oxygen. Patient is much more talkative compared to yesterday. Answering questions. 07/01/2023 Patient examined today in follow up. Remains on 6L of oxygen, more awake and alert. She continues on clear liquid diet which will be upgraded pending speech therapy recommendations as there is concern for aspiration. Indwelling catheter remains in place for urinary retention with concern for acute UTI which family feels was caused from the IDC placed prior to her previous discharge. She has been started on cefepime and vancomycin with concern for sepsis. White blood cell count has normalized to 5.7. Hemoglobin 7.1. INR 6.4 and warfarin remains on hold. Renal function stable. LFTs remain significantly elevated. 07/02/2023 Patient is evaluated today on the medical floor. Weaned down to 4L of oxygen. LFTs remain elevated. Gallbladder ultrasound completed revealing hepatic steatosis with ascites adjacent to the liver suspected. Echogenic materinal within the gallbladder lumen with masslike appearance. Borderline wall t hickening. Hemoglobin 6.9 today. Patient will receive 1 unit of blood. Covid PCR positive. 07/03/2023 Patient continues to report feeling fatigued. Was able to be weaned down to 2L of oxygen. Does have visible bruising over the left abdomen. Had abdominal pelvis CT done today which reveals a 6.8 x 2.6 x 12 cm left abdominal rectus hematoma. INR has improved down to 1.2 and this will likely only need conservative management however general surgery was consulted. There is also mention of distended gallbladder although no mention of an acute cholecystitis, dilated ducted. Patient has consistently elevated LFTs this could be due to infection however general surgery recommending HIDA scan. Left ankle xray was completed due to the bruising and mild soft tissue swelling patient states this was injured end of March when she fell. There is no acute fracture noted and patient would benefit from icing and elevation as well as light compression. 07/04/2023 Patient is evaluated on the medical floor. Continues to feel fatigued. Has not been out of bed much and has fair appetite. Family has been coming to assist with meal time feeding. General surgery following for the rectus sheath hematoma and INR has normalized and patient is being monitored off coumadin at this time. HIDA scan completed for further evaluation of the gallbladder which was normal. Recommendations for cholecystectomy however after cardiology re-evaluation felt patient was high risk for surgery. Patient has significant valvular heart disease and there is concern for possible interstitial lung disease she will be taken off the amiodarone at this time. Hemoglobin is stable at 8.7. 07/05/2023 Patient is evaluated today sitting up in the chair with at the bedside. Patient has been more awake and alert and has increased appetite. Family has been coming in to help her at every meal. Hemoglobin stable at 8.6. Patient is continued on IV cefepime with ID following closely. Not a surgical candidate. Abdominal bruising improving. IDC remains and family has concerns and would like it removed before discharge to rehab. Patient remains off coumadin at this time with general surgery recommendations to continue holding. INR 1.0 today. 07/06/2023 Patient is seen and evaluated in follow-up this morning currently sitting up in bed asleep although arousable. Patient reports feeling tired and denies any sig nificant pain. General surgery following with no plans of surgical intervention given significant comorbidities and not a surgical candidate. Patient is continued on IV antibiotics with infectious disease following. Nephrology following as well and patient is maintained on fluid restrictions. Oral intake remains poor to fair and is being encouraged to attempt to eat small frequent meals. Patient is currently maintaining oxygen saturations above 90% on room air and pulmonary is following closely. Awaiting PT/OT therapy to reevaluate patient will most definitely need rehab on discharge. 07/07/23 : Patient seen and evaluated at bedside, vitals reviewed, blood work reviewed. CBC showed hemoglobin of 8.8, WBC 12, platelet count 189. Serum chemistry showed sodium 137 potassium 4.3 BUN 52 creatinine 1.2 magnesium of 1.6, patient does complain of nausea, continue to hold Coumadin till hemoglobin stabilized 07/08/23 : Patient seen and evaluated bedside, patient started back on Coumadin hemoglobin 8.8 remained stable, serum chemistry reviewed creatinine 1.09, sodium 136 potassium 3.9 calcium 8.1. Liver profile shows trending down of AST and ALT 07/09/23: Seen and evaluated at bedside, blood work reviewed, WBC 12.8 hemoglobin 7.9, serum chemistry reviewed sodium 134 creatinine 1.2, INR 1.1. Continue to remain on IV antibiotics, patient does have diarrhea and does have fecal manag ement system in place, C. difficile was negative continue patient on Lomotil along with cholestyramine Patient awake and alert, feels very weak and tired and lethargic She follows commands and answers questions appropriately She has mild abdominal distention, she has ongoing diarrhea, C. difficile has been negative and patient placed on antimotility medication like Lomotil Also patient has mild left ankle swelling and bruise, patient denies falling, x- rays requested ( had negative xray about one week ago) Blood pressure chronically borderline, afebrile and rest of vital stable, Labs reviewed, INR 1.1, has leukocytosis of 15.2, hemoglobin slightly low at 7.9 down to 7.7. Creatinine pending pt currentlyon Eraxis, Coumadin and cholestyramine and Lasix 40 mg discussed with the bedside daughter at bedside and she verbalized understanding and acceptance Discussed with staff 07/11/2023 Patient awake alert, she is slightly drowsy, she slept more than 3 hours this morning, daughter at bedside and patient she is still sleepy although she is improving compared to yesterday Patient herself feels fine. Daughter discussed with mother to discuss continue Zoloft for her sleepiness but patient's wants to keep it stating that it helped her become less anxious. Because the patient is more and oriented today. She is able to eat this morning. Yesterday she has some abdominal distention, KUB reviewed by myself showing gastric distention which is looks resolved now. Abdomen is not distended now. No bowel movement of diarrhea. She has mild bilateral leg edema and I believe this is given today. Blood pressure is at baseline, low normal with systolic 90-100. Resume Coumadin and follow-up INR. Patient remains on the Eraxis Repeat urine analysis still abnormal, urine culture is pending. Plan to discontinue Caldwell catheter and bladder check 07/12/2023 pt is still not eating much despite encouragement , last week she passed swallow evaluation because she was losing muscle back in her throat, she was placed on chopped diet however still her appetite is poor. The patient is on the case and she is prescribed Ensure and other encouragement. However patient denies nausea. Discussed with staff we are going to do call for nutrition consult since she has prolonged malnutrition she might benefit from parenteral or other form of enteral feeding like via NG tube. Otherwise we expect patient to continue to deteriorate. Patient has this gallbladder mass, surgery team on the case and they patient poor surgical candidate. Family also declines surgical intervention like debridement of her sacral wound. Her abdomen is soft and there is no RUQ tenderness or pain. She remains on Eraxis. Urine culture is repeated. Still pending. Caldwell catheter was discontinued yesterday and she was retaining more than 300 last night and she had to be straight cath. We contacted [facility] and if still continued to do rate then we may consider replacing the Caldwell catheter in again. Fecal management sy stem is leaking and there is no obvious diarrhea currently there probably can be discontinued and monitored. She remains on Coumadin. INR still subtherapeutic. Patient still on leukocytosis and she is covered with Eraxis but there is no fever Procalcitonin is checked and is mildly coming down 1.1 down from 0.8. For more than a week indicating persistent abnormality Discussed with the bedside nurse and disease case manager. 07/13/23: Patient seen and evaluated bedside, blood work reviewed, serum chemistry reviewed, sodium 136 creatinine 1.9 liver profile trending down, INR 1.1, care plan discussed with daughter at bedside, dose of Synthyroid increase started on appetite stimulant 07/14/23: Patient seen and evaluated bedside overnight patient had episode of hypotension, Lasix placed on hold patient given fluid bolus, dose of midodrine increased to 10 mg 3 times daily as well. Blood work reviewed including CBC and hemoglobin remained stable electrolyte panel reviewed as well. Patient does have preserved ejection fraction with EF of around 70% that was checked earlier in the hospitalization 07/15/23: Patient seen and evaluated bedside, blood work reviewed, hemoglobin 7.1, 1 unit of packed RBC ordered, follow-up on INR levels, 1.4, serum chemistry reviewed sodium 137 potassium 5, creatinine 1.6. Patient started on daptomycin by infectious culture growing VRE. Upon evaluation patient states she feels better, chills have improved as well does complain of weakness 07/16/2023 Patient is awake and alert but is lethargic and weak. Currently requiring 2 L oxygen via nasal cannula. Patient does have poor oral intake. Denies any nausea or vomiting. No diarrhea. Patient has been afebrile. On antibiotics with daptomycin due to VRE. Currently on Coumadin dosing and dronedarone and metoprolol for atrial fibrillation. Renal function is improving. Laboratory data showed WBC 10.1 hemoglobin 8.6 and platelets 173, sodium 134 potassium 4.8 chloride 113 bicarb is 19 BUN 16 creatinine 1.31 and calcium 7.6. 07/17/2023 Patient is currently lying in the bed. Was able to sit in the chair today. Patient's is at bedside. Currently requiring 2 L oxygen via nasal cannula. No complaints of chest pain or shortness of breath. Patient is more awake and oriented today. Was able to tolerate some oral diet. Patient remains on antibiotics in the form of daptomycin with Enterococcus ga llinarum in the urine culture. Otherwise patient is very weak and could not ambulate with support. The laboratory data showed WBC of 7.7 hemoglobin 8.4 and platelets at 178 Sodium 134 potassium 5.0 chloride 112, BUN 59 and creatinine improved to 1.1 and calcium 7.5 Nephrology, pulmonary and ID is on board. PHYSICAL EXAMINATION: Patient is lying in the bed, no acute distress, awake alert but patient is lethargic and weak... HEENT: Normocephalic. Neck is supple. Pupils reactive. Nostrils clear. Oral cavity is moist. Neck reveals no JVD, carotid bruits, or thyromegaly. CHEST EXAMINATION: Trachea is central. Symmetrical expansion. Bibasilar diminished sounds. No wheezing or rhonchi.. CARDIAC: Normal S1, S2 with no gallops. No murmurs ABDOMEN: Soft. Bowel sounds normal. No organomegaly. No abdominal bruits. Extremities: reveal no edema. No clubbing or cyanosis Neurologically awake, alert, oriented x 1-2 able to move all extremities. No gross focal deficits noted Skin: No rash or skin lesions. Psychiatric: Coperative. Could not be assessed completely Musculoskeletal: No joint swelling or deformity. Assessment and plan * Left abdominal rectus sheath hematoma improved. Hemoglobin is fairly stable. * Acute on chronic diastolic heart failure; Moderate to severe mitral calcification, moderate to severe mitral stenosis, mild aortic regurgitation and stenosis, Severe Pulmonary hypertension WHO class II. * Acute hypoxic respiratory failure due to asthma exacerbation; was requiring 6L and has weaned to 2 L. * Non-ST elevation MN * Hyperkalemia RESOLVED * Anemia iron deficient with acute blood loss anemia from the left rectus sheath hematoma * Acute transaminitis with concern for acute cholecystitis, HIDA scan normal. Not a surgical candidate at this time. * Urinary tract infection with VRE * Acute kidney injury due to ATN severe sepsis. Improving. * Recent hospitalization for COVID in May, PCR still positive; not in active infection. * Supratherapeutic INR on admission while on Coumadin * Paroxysmal atrial fibrillation * History of coronary artery disease with previous PCI/stent x3 * History of hyperlipidemia * History of hypertension * Rheumatoid arthritis * History of hypothyroidism * Mild protein calorie malnutrition * Stage 2 pressure injury on right and left buttock present on admission * Sacral decubitus ulcer, unstageable present on admission. * Lifelong non-smoker Plan * In regards to atrial fibrillation patient was started on amiodarone and Coumadin however amiodarone was discontinued and patient was transition to dronedarone , continue telemonitoring * In regards to [id number] continue patient on midodrine for blood pressure support, Lasix placed on hold on 55 due to hypotension * In regards to urinary tract infection and pneumonia , was on cefepime, completed antibiotic course, already started on daptomycin by infectious disease secondary to VRE * In regards to anemia patient given IV iron replacement , received 1 unit of packed RBC earlier in hospitalization second unit ordered on 07/15/2023 * In regards to rectus sheath hematoma and anemia >> Coumadin resumed 07/07 follow-up on INR 1.4, monitor hemoglobin * In regards to generalized debility and dysphagia patient seen by speech therapy as well as physical therapy patient was started on amiodarone and warfarin back on 06/18 due to findings of atrial fibrillation with RVR and severe mitral stenosis. Cardiology has concerns for interstitial lung disease and amiodarone has been discontinued. Patient has been started on dronedarone. * In regards to hypothyroidism continue patient on Synthyroid follow-up on TSH in 4 weeks * In regards to malnutrition patient started on Megace * Due to multiple complex medical issues, overall prognosis is guarded. PT OT is on board. Will discuss with family regarding goals of care. Objective - Vital Signs Vital signs: Vital Signs Temp 97.7 F 07/18/23 01:29 Pulse 85 07/18/23 01:29 Resp 16 07/18/23 01:29 BP 95/52 07/18/23 01:29 Pulse Ox 98 07/18/23 01:29 FiO2 21 07/05/23 07:54 Intake & Output 07/17/23 07/17/23 07/18/23 06:59 18:59 06:59 Output Total 300 700 500 Balance -300 -700 -500 Weight 60 kg Output: Urine 300 700 500 Uretheral (Caldwell) 500 Other: Voiding Method Indwelling Catheter # Bowel Movements 1 3 - Labs CBC & Chem 7: 07/17/23 05:14 07/18/23 03:49 Labs: Abnormal Lab Results - Last 24 Hours (Table) 07/17/23 07/17/23 07/17/23 Range/Units 05:14 05:14 05:14 RBC 2.81 L (3.80-5.40) m/uL Hgb 8.4 L (11.4-16.0) gm/dL Hct 26.9 L (34.0-46.0) % RDW 18.3 H (11.5-15.5) % Myelocytes # (Manual) 0.15 H (0) k/uL PT 18.8 H (10.0-12.5) sec INR 1.9 H (<1.2) Sodium 134 L (137-145) mmol/L Chloride 112 H (98-107) mmol/L BUN 59 H (7-17) mg/dL Creatinine 1.10 H (0.52-1.04) mg/dL POC Glucose (mg/dL) (70-110) mg/dL Calcium 7.5 L (8.4-10.2) mg/dL 07/17/23 07/17/23 07/17/23 Range/Units 11:17 16:31 16:58 RBC (3.80-5.40) m/uL Hgb (11.4-16.0) gm/dL Hct (34.0-46.0) % RDW (11.5-15.5) % Myelocytes # (Manual) (0) k/uL PT (10.0-12.5) sec INR (<1.2) Sodium (137-145) mmol/L Chloride (98-107) mmol/L BUN (7-17) mg/dL Creatinine (0.52-1.04) mg/dL POC Glucose (mg/dL) 115 H 311 H 159 H (70-110) mg/dL Calcium (8.4-10.2) mg/dL 07/17/23 Range/Units 20:35 RBC (3.80-5.40) m/uL Hgb (11.4-16.0) gm/dL Hct (34.0-46.0) % RDW (11.5-15.5) % Myelocytes # (Manual) (0) k/uL PT (10.0-12.5) sec INR (<1.2) Sodium (137-145) mmol/L Chloride (98-107) mmol/L BUN (7-17) mg/dL Creatinine (0.52-1.04) mg/dL POC Glucose (mg/dL) 127 H (70-110) mg/dL Calcium (8.4-10.2) mg/dL
--- NOTE | 2023-07-18 10:37 | P.PN ---
Subjective Progress Note Date: 07/18/23 CHIEF COMPLAINT: Shortness of breath HISTORY OF PRESENT ILLNESS: Surgical service following in regards to patient's acute cholecystitis and Left rectus sheath hematoma. Patient reports no abdominal pain. She tolerated diet. Eating a small amount. No new complaints afebrile. PHYSICAL EXAM: VITAL SIGNS: Reviewed. GENERAL: no acute distress. ABDOMEN: Soft. Nondistended. ASSESSMENT: 1. Acute cholecystitis. Echogenic material within the gallbladder lumen with masslike appearance and borderline gallbladder wall thickening noted on ultrasound 2. Elevated LFTs 3. Left abdominal rectus sheath hematoma with Coumadin toxicity present on admission 4. Acute blood loss anemia due to rectus sheath hematoma requiring blood transfusion 5. Sacral decubitus ulcer and ulceration posterior left upper thigh PLAN: -Patient is a poor surgical candidate. No surgical intervention planned. Vamsi khanna reports no abdominal pain. She is tolerating diet. -Recommend no debridement of the sacral and upper left posterior thigh. -Continue local wound care -Continue offloading -Continue medical management -Continue low-fat diet Physician Manager [employer] note has been reviewed by physician. Signing provider agrees with the documented findings, assessment, and plan of care. Objective - Vital Signs Vital signs: Vital Signs Temp 98.2 F 07/18/23 07:34 Pulse 100 07/18/23 07:34 Resp 20 07/18/23 07:34 BP 111/56 07/18/23 07:34 Pulse Ox 88 L 07/18/23 07:34 FiO2 21 07/05/23 07:54 Intake & Output 07/17/23 07/18/23 07/18/23 18:59 06:59 18:59 Output Total 700 500 Balance -700 -500 Output: Urine 700 500 Uretheral (Caldwell) 500 Other: Voiding Method Indwelling Catheter Indwelling Catheter # Bowel Movements 3 1 - Labs CBC & Chem 7: 07/17/23 05:14 07/18/23 03:49 Labs: Abnormal Lab Results - Last 24 Hours (Table) 07/17/23 07/17/23 07/17/23 Range/Units 05:14 11:17 16:31 Myelocytes # (Manual) 0.15 H (0) k/uL PT (10.0-12.5) sec INR (<1.2) Carbon Dioxide (21.6-31.8) mmol/L BUN (9.0-27.0) mg/dL Est GFR (CKD-EPI) (>=60) BUN/Creatinine Ratio (12.00-20.00) Ratio POC Glucose (mg/dL) 115 H 311 H (70-110) mg/dL Calcium (8.7-10.3) mg/dL 07/17/23 07/17/23 07/18/23 Range/Units 16:58 20:35 03:49 Myelocytes # (Manual) (0) k/uL PT 26.0 H (10.0-12.5) sec INR 2.6 H (<1.2) Carbon Dioxide (21.6-31.8) mmol/L BUN (9.0-27.0) mg/dL Est GFR (CKD-EPI) (>=60) BUN/Creatinine Ratio (12.00-20.00) Ratio POC Glucose (mg/dL) 159 H 127 H (70-110) mg/dL Calcium (8.7-10.3) mg/dL 07/18/23 07/18/23 07/18/23 Range/Units 03:49 05:41 05:42 Myelocytes # (Manual) (0) k/uL PT (10.0-12.5) sec INR (<1.2) Carbon Dioxide 18.5 L (21.6-31.8) mmol/L BUN 53.1 H (9.0-27.0) mg/dL Est GFR (CKD-EPI) 51 L (>=60) BUN/Creatinine Ratio 48.27 H (12.00-20.00) Ratio POC Glucose (mg/dL) 115 H 122 H (70-110) mg/dL Calcium 7.7 L (8.7-10.3) mg/dL
[2023-07-18] MEDS: FUROSEMIDE 10 MG/ML 4 ML VIAL IV STA (11:20)
--- NOTE | 2023-07-18 11:40 | P.PN ---
Subjective Progress Note Date: 07/18/23 82-year-old lady with past medical history significant for congestive heart failure, atrial fibrillation with RVR,presented to the ER because of worsening shortness of breath. Patient was only recently discharged on 06/25 after being treated in the hospital for similar complaints.after discharge, patient was all right for 1 day but started noticing that she was getting more short of breath on exertion. Patient denied any chest pain. There was no complain of orthopnea or PND. There was no complain of swelling of feet. There was no complain of fever or chills. Patient oxygen requirements were also increasing so she was transferred back to the ER Initial lab work done in the ER showed WBC 28, hemoglobin 10.5, platelet count 332, INR 3.7, sodium 138, potassium 6.2, BUN 79, creatinine1.71, AST 378, ALT 350, troponin 0.247 EKG done in the ER showed heart rate of 81 , no ST segment elevation or depression seen, no T-wave inversions seen. Chest x-ray done in the ER showed cardiomegaly and moderate vascular congestion Patient admitted to internal medicine service 06/29. Patient seen and examined. Blood work done this morning showed WBC 19.8, hemoglobin 8.6, sodium 135, potassium 4.4, BUN 70, creatinine 1.21. Ox requirements have improved, currently on 6 L of oxygen. Patient is much more talkative compared to yesterday. Answering questions. 07/01/2023 Patient examined today in follow up. Remains on 6L of oxygen, more awake and alert. She continues on clear liquid diet which will be upgraded pending speech therapy recommendations as there is concern for aspiration. Indwelling catheter remains in place for urinary retention with concern for acute UTI which family feels was caused from the IDC placed prior to her previous discharge. She has been started on cefepime and vancomycin with concern for sepsis. White blood cell count has normalized to 5.7. Hemoglobin 7.1. INR 6.4 and warfarin remains on hold. Renal function stable. LFTs remain significantly elevated. 07/02/2023 Patient is evaluated today on the medical floor. Weaned down to 4L of oxygen. LFTs remain elevated. Gallbladder ultrasound completed revealing hepatic steatosis with ascites adjacent to the liver suspected. Echogenic materinal within the gallbladder lumen with masslike appearance. Borderline wall t hickening. Hemoglobin 6.9 today. Patient will receive 1 unit of blood. Covid PCR positive. 07/03/2023 Patient continues to report feeling fatigued. Was able to be weaned down to 2L of oxygen. Does have visible bruising over the left abdomen. Had abdominal pelvis CT done today which reveals a 6.8 x 2.6 x 12 cm left abdominal rectus hematoma. INR has improved down to 1.2 and this will likely only need conservative management however general surgery was consulted. There is also mention of distended gallbladder although no mention of an acute cholecystitis, dilated ducted. Patient has consistently elevated LFTs this could be due to infection however general surgery recommending HIDA scan. Left ankle xray was completed due to the bruising and mild soft tissue swelling patient states this was injured end of March when she fell. There is no acute fracture noted and patient would benefit from icing and elevation as well as light compression. 07/04/2023 Patient is evaluated on the medical floor. Continues to feel fatigued. Has not been out of bed much and has fair appetite. Family has been coming to assist with meal time feeding. General surgery following for the rectus sheath hematoma and INR has normalized and patient is being monitored off coumadin at this time. HIDA scan completed for further evaluation of the gallbladder which was normal. Recommendations for cholecystectomy however after cardiology re-evaluation felt patient was high risk for surgery. Patient has significant valvular heart disease and there is concern for possible interstitial lung disease she will be taken off the amiodarone at this time. Hemoglobin is stable at 8.7. 07/05/2023 Patient is evaluated today sitting up in the chair with at the bedside. Patient has been more awake and alert and has increased appetite. Family has been coming in to help her at every meal. Hemoglobin stable at 8.6. Patient is continued on IV cefepime with ID following closely. Not a surgical candidate. Abdominal bruising improving. IDC remains and family has concerns and would like it removed before discharge to rehab. Patient remains off coumadin at this time with general surgery recommendations to continue holding. INR 1.0 today. 07/06/2023 Patient is seen and evaluated in follow-up this morning currently sitting up in bed asleep although arousable. Patient reports feeling tired and denies any sig nificant pain. General surgery following with no plans of surgical intervention given significant comorbidities and not a surgical candidate. Patient is continued on IV antibiotics with infectious disease following. Nephrology following as well and patient is maintained on fluid restrictions. Oral intake remains poor to fair and is being encouraged to attempt to eat small frequent meals. Patient is currently maintaining oxygen saturations above 90% on room air and pulmonary is following closely. Awaiting PT/OT therapy to reevaluate patient will most definitely need rehab on discharge. 07/07/23 : Patient seen and evaluated at bedside, vitals reviewed, blood work reviewed. CBC showed hemoglobin of 8.8, WBC 12, platelet count 189. Serum chemistry showed sodium 137 potassium 4.3 BUN 52 creatinine 1.2 magnesium of 1.6, patient does complain of nausea, continue to hold Coumadin till hemoglobin stabilized 07/08/23 : Patient seen and evaluated bedside, patient started back on Coumadin hemoglobin 8.8 remained stable, serum chemistry reviewed creatinine 1.09, sodium 136 potassium 3.9 calcium 8.1. Liver profile shows trending down of AST and ALT 07/09/23: Seen and evaluated at bedside, blood work reviewed, WBC 12.8 hemoglobin 7.9, serum chemistry reviewed sodium 134 creatinine 1.2, INR 1.1. Continue to remain on IV antibiotics, patient does have diarrhea and does have fecal manag ement system in place, C. difficile was negative continue patient on Lomotil along with cholestyramine Patient awake and alert, feels very weak and tired and lethargic She follows commands and answers questions appropriately She has mild abdominal distention, she has ongoing diarrhea, C. difficile has been negative and patient placed on antimotility medication like Lomotil Also patient has mild left ankle swelling and bruise, patient denies falling, x- rays requested ( had negative xray about one week ago) Blood pressure chronically borderline, afebrile and rest of vital stable, Labs reviewed, INR 1.1, has leukocytosis of 15.2, hemoglobin slightly low at 7.9 down to 7.7. Creatinine pending pt currentlyon Eraxis, Coumadin and cholestyramine and Lasix 40 mg discussed with the bedside daughter at bedside and she verbalized understanding and acceptance Discussed with staff 07/11/2023 Patient awake alert, she is slightly drowsy, she slept more than 3 hours this morning, daughter at bedside and patient she is still sleepy although she is improving compared to yesterday Patient herself feels fine. Daughter discussed with mother to discuss continue Zoloft for her sleepiness but patient's wants to keep it stating that it helped her become less anxious. Because the patient is more and oriented today. She is able to eat this morning. Yesterday she has some abdominal distention, KUB reviewed by myself showing gastric distention which is looks resolved now. Abdomen is not distended now. No bowel movement of diarrhea. She has mild bilateral leg edema and I believe this is given today. Blood pressure is at baseline, low normal with systolic 90-100. Resume Coumadin and follow-up INR. Patient remains on the Eraxis Repeat urine analysis still abnormal, urine culture is pending. Plan to discontinue Caldwell catheter and bladder check 07/12/2023 pt is still not eating much despite encouragement , last week she passed swallow evaluation because she was losing muscle back in her throat, she was placed on chopped diet however still her appetite is poor. The patient is on the case and she is prescribed Ensure and other encouragement. However patient denies nausea. Discussed with staff we are going to do call for nutrition consult since she has prolonged malnutrition she might benefit from parenteral or other form of enteral feeding like via NG tube. Otherwise we expect patient to continue to deteriorate. Patient has this gallbladder mass, surgery team on the case and they patient poor surgical candidate. Family also declines surgical intervention like debridement of her sacral wound. Her abdomen is soft and there is no RUQ tenderness or pain. She remains on Eraxis. Urine culture is repeated. Still pending. Caldwell catheter was discontinued yesterday and she was retaining more than 300 last night and she had to be straight cath. We contacted [facility] and if still continued to do rate then we may consider replacing the Caldwell catheter in again. Fecal management sy stem is leaking and there is no obvious diarrhea currently there probably can be discontinued and monitored. She remains on Coumadin. INR still subtherapeutic. Patient still on leukocytosis and she is covered with Eraxis but there is no fever Procalcitonin is checked and is mildly coming down 1.1 down from 0.8. For more than a week indicating persistent abnormality Discussed with the bedside nurse and case technician. 07/13/23: Patient seen and evaluated bedside, blood work reviewed, serum chemistry reviewed, sodium 136 creatinine 1.9 liver profile trending down, INR 1.1, care plan discussed with daughter at bedside, dose of Synthyroid increase started on appetite stimulant 07/14/23: Patient seen and evaluated bedside overnight patient had episode of hypotension, Lasix placed on hold patient given fluid bolus, dose of midodrine increased to 10 mg 3 times daily as well. Blood work reviewed including CBC and hemoglobin remained stable electrolyte panel reviewed as well. Patient does have preserved ejection fraction with EF of around 70% that was checked earlier in the hospitalization 07/15/23: Patient seen and evaluated bedside, blood work reviewed, hemoglobin 7.1, 1 unit of packed RBC ordered, follow-up on INR levels, 1.4, serum chemistry reviewed sodium 137 potassium 5, creatinine 1.6. Patient started on daptomycin by infectious culture growing VRE. Upon evaluation patient states she feels better, chills have improved as well does complain of weakness 07/16/2023 Patient is awake and alert but is lethargic and weak. Currently requiring 2 L oxygen via nasal cannula. Patient does have poor oral intake. Denies any nausea or vomiting. No diarrhea. Patient has been afebrile. On antibiotics with daptomycin due to VRE. Currently on Coumadin dosing and dronedarone and metoprolol for atrial fibrillation. Renal function is improving. Laboratory data showed WBC 10.1 hemoglobin 8.6 and platelets 173, sodium 134 potassium 4.8 chloride 113 bicarb is 19 BUN 16 creatinine 1.31 and calcium 7.6. 07/17/2023 Patient is currently lying in the bed. Was able to sit in the chair today. Patient's is at bedside. Currently requiring 2 L oxygen via nasal cannula. No complaints of chest pain or shortness of breath. Patient is more awake and oriented today. Was able to tolerate some oral diet. Patient remains on antibiotics in the form of daptomycin with Enterococcus ga llinarum in the urine culture. Otherwise patient is very weak and could not ambulate with support. The laboratory data showed WBC of 7.7 hemoglobin 8.4 and platelets at 178 Sodium 134 potassium 5.0 chloride 112, BUN 59 and creatinine improved to 1.1 and calcium 7.5 Nephrology, pulmonary and ID is on board. 07/18/2023 Patient is currently lying in the bed. Patient is more awake and oriented today. Was able to drink Ensure this morning and had episode of choking. Otherwise patient is on 2 L oxygen via nasal cannula. Patient otherwise denies any complaints of abdominal pain. No nausea or vomit ing. No cough or sputum production. Hemoglobin is stable. Patient is afebrile. Laboratory data showed INR 2.6, sodium 132 potassium 5.5 chloride 107 Repeat chest x-ray was ordered which showed interval worsening in bilateral patchy and confluent airspace disease. Bicarb is 18.5 BUN 53.1 and creatinine 1.1 and blood sugar 95 and calcium 7.7. PHYSICAL EXAMINATION: Patient is lying in the bed, no acute distress, awake alert and oriented. Generalized weakness and.. HEENT: Normocephalic. Neck is supple. Pupils reactive. Nostrils clear. Oral cavity is moist. Neck reveals no JVD, carotid bruits, or thyromegaly. CHEST EXAMINATION: Trachea is central. Symmetrical expansion. Bibasilar diminished sounds. No wheezing or rhonchi.. CARDIAC: Normal S1, S2 with no gallops. No murmurs ABDOMEN: Soft. Bowel sounds normal. No organomegaly. No abdominal bruits. Extremities: reveal no edema. No clubbing or cyanosis Neurologically awake, alert, oriented x 1-2 able to move all extremities. No gross focal deficits noted Skin: No rash or skin lesions. Psychiatric: Coperative. Could not be assessed completely Musculoskeletal: No joint swelling or deformity. Assessment and plan * Left abdominal rectus sheath hematoma improved. Hemoglobin is fairly stable. * Acute on chronic diastolic heart failure; Moderate to severe mitral calcification, moderate to severe mitral stenosis, mild aortic regurgitation and stenosis, Severe Pulmonary hypertension WHO class II. * Acute hypoxic respiratory failure due to asthma exacerbation; was requiring 6L and has weaned to 2 L. * Non-ST elevation DE * Hyperkalemia RESOLVED * Anemia iron deficient with acute blood loss anemia from the left rectus sheath hematoma * Acute transaminitis with concern for acute cholecystitis, HIDA scan normal. Not a surgical candidate at this time. * Urinary tract infection with VRE * Acute kidney injury due to ATN severe sepsis. Improving. * Recent hospitalization for COVID in May, PCR still positive; not in active infection. * Supratherapeutic INR on admission while on Coumadin * Paroxysmal atrial fibrillation * History of coronary artery disease with previous PCI/stent x3 * History of hyperlipidemia * History of hypertension * Rheumatoid arthritis * Hypothyroidism. Started back on levothyroxine. * Mild protein calorie malnutrition * Stage 2 pressure injury on right and left buttock present on admission * Sacral decubitus ulcer, unstageable present on admission. * Lifelong non-smoker Plan * In regards to atrial fibrillation patient was started on amiodarone and Coumadin however amiodarone was discontinued and patient was transition to dronedarone , continue telemonitoring * In regards to [id number] continue patient on midodrine for blood pressure support, Lasix placed on hold on 07/13 due to hypotension * In regards to urinary tract infection and pneumonia , was on cefepime, completed antibiotic course, already started on daptomycin by infectious disease secondary to VRE * In regards to anemia patient given IV iron replacement , received 1 unit of packed RBC earlier in hospitalization second unit ordered on 07/15/2023 * In regards to rectus sheath hematoma and anemia >> Coumadin resumed 07/07 follow-up on INR 1.4, monitor hemoglobin * In regards to generalized debility and dysphagia patient seen by speech therapy as well as physical therapy patient was started on amiodarone and warfarin back on 06/18 due to findings of atrial fibrillation with RVR and severe mitral stenosis. Cardiology has concerns for interstitial lung disease and amiodarone has been discontinued. Patient has been started on dronedarone. * In regards to hypothyroidism continue patient on Synthyroid follow-up on TSH in 4 weeks * In regards to malnutrition patient started on Megace * Due to multiple complex medical issues, overall prognosis is guarded. PT OT is on board. * Discussed with family regarding goals of care and currently would like to continue with full code. * Patient will be reevaluated by speech pathology and also dietitian consult. Objective - Vital Signs Vital signs: Vital Signs Temp 98.2 F 07/18/23 07:34 Pulse 100 07/18/23 07:34 Resp 20 07/18/23 07:34 BP 111/56 07/18/23 07:34 Pulse Ox 88 L 07/18/23 07:34 FiO2 21 07/05/23 07:54 Intake & Output 07/17/23 07/18/23 07/18/23 18:59 06:59 18:59 Output Total 700 500 Balance -700 -500 Output: Urine 700 500 Uretheral (Caldwell) 500 Other: Voiding Method Indwelling Catheter Indwelling Catheter # Bowel Movements 3 1 - Labs CBC & Chem 7: 07/17/23 05:14 07/18/23 03:49 Labs: Abnormal Lab Results - Last 24 Hours (Table) 07/17/23 07/17/23 07/17/23 Range/Units 05:14 16:31 16:58 Myelocytes # (Manual) 0.15 H (0) k/uL PT (10.0-12.5) sec INR (<1.2) Carbon Dioxide (21.6-31.8) mmol/L BUN (9.0-27.0) mg/dL Est GFR (CKD-EPI) (>=60) BUN/Creatinine Ratio (12.00-20.00) Ratio POC Glucose (mg/dL) 311 H 159 H (70-110) mg/dL Calcium (8.7-10.3) mg/dL 07/17/23 07/18/23 07/18/23 Range/Units 20:35 03:49 03:49 Myelocytes # (Manual) (0) k/uL PT 26.0 H (10.0-12.5) sec INR 2.6 H (<1.2) Carbon Dioxide 18.5 L (21.6-31.8) mmol/L BUN 53.1 H (9.0-27.0) mg/dL Est GFR (CKD-EPI) 51 L (>=60) BUN/Creatinine Ratio 48.27 H (12.00-20.00) Ratio POC Glucose (mg/dL) 127 H (70-110) mg/dL Calcium 7.7 L (8.7-10.3) mg/dL 07/18/23 07/18/23 Range/Units 05:41 05:42 Myelocytes # (Manual) (0) k/uL PT (10.0-12.5) sec INR (<1.2) Carbon Dioxide (21.6-31.8) mmol/L BUN (9.0-27.0) mg/dL Est GFR (CKD-EPI) (>=60) BUN/Creatinine Ratio (12.00-20.00) Ratio POC Glucose (mg/dL) 115 H 122 H (70-110) mg/dL Calcium (8.7-10.3) mg/dL
[2023-07-18 11:50] LABS: Glucose,Whole Blood 119 mg/dL (70-110)
--- NOTE | 2023-07-18 12:03 | P.PN ---
Subjective Patient is seen in follow-up for acute kidney injury. Renal function stable. Diuretics held. Oral intake fair. Nonoliguric. Vital signs - blood pressure on the lower side. General: No acute distress. HEENT: Head exam is unremarkable. LUNGS: No audible rhonchi or wheezes. HEART: Rate and Rhythm are regular. ABDOMEN: Nontender. EXTREMITITES: 1+ edema. Objective - Vital Signs Vital signs: Vital Signs Temp 98.2 F 07/18/23 07:34 Pulse 100 07/18/23 07:34 Resp 20 07/18/23 07:34 BP 111/56 07/18/23 07:34 Pulse Ox 88 L 07/18/23 07:34 FiO2 21 07/05/23 07:54 Intake & Output 07/17/23 07/18/23 07/18/23 18:59 06:59 18:59 Output Total 700 500 Balance -700 -500 Output: Urine 700 500 Uretheral (Caldwell) 500 Other: Voiding Method Indwelling Catheter Indwelling Catheter # Bowel Movements 3 1 - Labs CBC & Chem 7: 07/17/23 05:14 07/18/23 03:49 Labs: Abnormal Lab Results - Last 24 Hours (Table) 07/17/23 07/17/23 07/17/23 Range/Units 05:14 16:31 16:58 Myelocytes # (Manual) 0.15 H (0) k/uL PT (10.0-12.5) sec INR (<1.2) Carbon Dioxide (21.6-31.8) mmol/L BUN (9.0-27.0) mg/dL Est GFR (CKD-EPI) (>=60) BUN/Creatinine Ratio (12.00-20.00) Ratio POC Glucose (mg/dL) 311 H 159 H (70-110) mg/dL Calcium (8.7-10.3) mg/dL 07/17/23 07/18/23 07/18/23 Range/Units 20:35 03:49 03:49 Myelocytes # (Manual) (0) k/uL PT 26.0 H (10.0-12.5) sec INR 2.6 H (<1.2) Carbon Dioxide 18.5 L (21.6-31.8) mmol/L BUN 53.1 H (9.0-27.0) mg/dL Est GFR (CKD-EPI) 51 L (>=60) BUN/Creatinine Ratio 48.27 H (12.00-20.00) Ratio POC Glucose (mg/dL) 127 H (70-110) mg/dL Calcium 7.7 L (8.7-10.3) mg/dL 07/18/23 07/18/23 07/18/23 Range/Units 05:41 05:42 11:49 Myelocytes # (Manual) (0) k/uL PT (10.0-12.5) sec INR (<1.2) Carbon Dioxide (21.6-31.8) mmol/L BUN (9.0-27.0) mg/dL Est GFR (CKD-EPI) (>=60) BUN/Creatinine Ratio (12.00-20.00) Ratio POC Glucose (mg/dL) 115 H 122 H 119 H (70-110) mg/dL Calcium (8.7-10.3) mg/dL Assessment and Plan Plan: Assessment: 1. Acute kidney injury secondary to ATN secondary to severe sepsis. Was also on Bactrim prior to admission. No hydronephrosis noted on kidney ultrasound/CT. Renal function improved. Creatinine 1.1. Nonoliguric. 2. Chronic diastolic CHF with severe pulmonary hypertension, mild to moderate aortic stenosis, moderate aortic regurgitation, severe mitral stenosis. 3. Hyperkalemia secondary to acute kidney injury on Bactrim. Potassium level 5.5 today. 4. Edema. Partially third spacing from hypoalbuminemia. 5. Acute blood loss anemia. Status post blood transfusion this admission. Also received IV iron. On Aranesp. Defer blood transfusions to primary team and surgery. 6. Hyponatremia from poor solute intake. Hypervolemic. Stable. 7. Acute COVID infection. 8. Left abdominal rectus sheath hematoma. Surgery following. 9. Protein calorie malnutrition with albumin level of 2.0. s/p IV albumin 07/12/23. 10. Urinary retention. Caldwell catheter had to be reinserted. On Flomax. 11. Metabolic acidosis secondary to acute kidney injury. On oral bicarb. Plan: Status post 40 mg IV Lasix given this morning. Encouraged oral intake. Maintain 1500 cc fluid restriction. Avoid nephrotoxins. Continue to monitor renal function and urine output. Maintain midodrine. Hold for systolic blood pressure greater than 110. A.m. cortisol level not low. 2 amps sodium bicarb IV push today.
[2023-07-18] MEDS: SODIUM BICARB 8.4% 50 ML SYR (1 MEQ/ML) IV STA (12:10)
--- NOTE | 2023-07-18 13:36 | P.PN ---
Subjective Progress Note Date: 07/18/23 This is an 82-year-old female, familiar to my service, patient was recently in the hospital with acute COVID-19 pneumonia, congestive heart failure, atrial fibrillation with RVR, possible underlying interstitial lung disease, patient was discharged on 06/26/2023, pulmonary service has seen this patient initially on 06/09/2023, at that time the patient was admitted with acute hypoxic respiratory failure, acute COVID-19 pneumonia, chronic bronchial asthma, and possible hospital-acquired pneumonia. In addition the patient had mild intermittent asthma, congestive heart failure, severe mitral calcification and moderate to severe mitral stenosis with preserved LV function and preserved ejection fraction. She also has history of rheumatoid arthritis, hypothyroidism, and lifelong non-smoker. We saw this patient last on 06/26/2023,, she was on 2 L nasal cannula, her labs were unremarkable, her sputum cultures were nondiagnostic, blood cultures were nondiagnostic, she had relatively normal renal profile, and she was at the time on warfarin, Symbicort, Singulair and albuterol. Patient was discharged to the [facility] on the [facility]. Patient was discharged on amiodarone, Coumadin, prednisone 20 mg daily, Lopressor, and nystatin swish and swallow. Otherwise the patient was kept on her usual medications including Symbicort, Jardiance, levothyroxine, Singulair, Fosamax, ascorbic acid, atorvastatin, Lasix 40 mg p.o. daily, and Xanax. As well as albuterol. Patient was sent from the [facility] down to the ER today mostly because of low O2 saturation, and patient was noted to have some shortness of breath. Chest x-ray on this admission showed cardiomegaly and mild pulmonary vascular congestion, no clear-cut evidence of pneumonia. As a matter fact her chest x-ray shows significant improvement compared to her initial chest x-ray on her last admission. In addition to her shortness of breath, patient was noted to have abnormal labs with a potassium of 6.2, her BUN is 79 and creatinine 1.71. Patient was also noted to have elevated BNP level of 27,000 and troponin leak. ABG on 50% FiO2 showed a pO2 of 69 pCO2 48 pH of 7.54. Patient is now on 3 L nasal cannula, seems to be comfortable, not in distress. Seen by nephrology for her acute kidney injury, ATN, hyperkalemia with acute kidney injury and apparently the patient was on Bactrim and the recommendation by nephrology was to continue with IV fluids, IV antibiotics, and repeat labs in AM. Patient has a very poor urine output, I did recommend a fluid bolus of 500 cc of saline while in the ER, blood pressure is marginal. Considering her marginal low blood pressure, I am recommending that the patient goes to the ICU. Nephrology is addressing her abnormal renal profile and hyperkalemia The patient is seen today June 30, 2023 in follow-up in the emergency department. She is currently sitting up in the stretcher. Awake and alert in no acute distress. Doing quite a bit better today compared to yesterday. Tolerating a clear liquid breakfast. Maintaining O2 saturations in the upper 90s on 6 L/min per nasal cannula. She has been afebrile. Hemodynamically stable. X-ray reveals some diffuse hazy and patchy bilateral airspace disease. Blood cultures are pending. White count 19.8. Hemoglobin 8.6. Platelets 210. Sodium 135. Potassium 4.4. Bicarb 32. BUN 70. Creatinine 1.21. Glucose 149. AST 250. ALT 242. Alk phos 403. Echocardiogram reveals a hyperdynamic LV with a EF around 70%. There is severe mitral stenosis and moderate aortic stenosis. Severe pulmonary hypertension with an RVSP exceeding 50 mmHg. She is continued on DuoNeb ventilations, IV diuretics, antibiotics in the form of vancomycin and cefepime. Procalcitonin pending. The patient is seen today July 01, 2023 in follow-up on the regular medical floor. She is currently sitting up in bed. Awake and alert in no acute distress. She is maintaining O2 saturations in the 90s on 6 L high flow nasal cannula. Her procalcitonin was 1.16. She remains on cefepime and vancomycin. Cultures are pending. Creatinine 1.18. Glucose 121. INR 6.4. She remains on bronchodilators, oral diuretics, anticoagulated with warfarin. The patient is seen today July 02, 2023 in follow-up on the regular medical floor. She is currently resting in bed. Awake and alert in no acute distress. She is maintaining good O2 saturations up to 100% on 6 L/min per nasal cannula. She is afebrile. Hemodynamically stable. Ultrasound of the abdomen reveals hepatic steatosis with ascites adjacent to the liver. Echogenic material within the gallbladder lumen with masslike appearance. Borderline gallbladder wall thickening. Hemoglobin 6.9. She is receiving 1 unit of packed red blood cells. Platelets 113. White count 4.7. INR 2.3. Sodium 135. Potassium 5.3. Bicarb 29. BUN 58. Creatinine 1.4. Glucose 103. She is continued on DuoNeb inh alations, cefepime and vancomycin. Remains on oral diuretics. The patient is seen today July 03, 2023 in follow-up on the regular medical floor. She is awake and alert in no acute distress. Sitting up in bed. Denies any worsening shortness of breath, cough or congestion. She is down to 2 L/min per nasal cannula. No IV fluids. She is continued on Maxipime and vancomycin. CT scan of the abdomen and pelvis reveals a left rectus hematoma. Moderate cardiomegaly. Moderate to severe diffuse opacities in the lungs could be due to edema atelectasis or infection. Chronic and likely incidental findings. X-ray of the left ankle reveals no evidence of acute fracture. Status post 1 unit of packed red blood cells this admission. Current hemoglobin 8.7. White count 4.5. Platelets 110. Sodium 130. Potassium 4.6. Bicarb 30. BUN 57. Creatinine 1.53. Glucose 87. AST 292. ALT 235. Vancomycin trough 18.0. She remains on DuoNeb inhalations. Oral diuretics. Receiving iron supplements. The patient is seen today July 04, 2023 in follow-up on the regular medical floor. He is currently sitting up in bed. Awake and alert in no acute distress. Maintaining good O2 saturations in the 90s on 2 L/min per nasal cannula. She denies any worsening shortness of breath, cough or congestion. She denies any abdominal pain. No fever or chills. White count 4.6. Hemoglobin 8.7. Platelets 123. Sodium 133. Potassium 4.4. Bicarb 26. BUN 51. Creatinine 1.3. Glucose 97. AST 211. ALT 214. Alk phos 164. Hepatobiliary scan pending. Chest x-ray reveals stable scattered airspace disease unchanged compared to previous. The patient is seen today July 05, 2023 in follow-up on the regular medical floor. She is resting comfortably in bed. Awake and alert in no acute distre ss. She is now on room air. No IV fluids. She remains on cefepime. Continued on bronchodilators. Continued on oral diuretics. Urine culture positive for Chaparrita. Blood cultures revealed no growth. White count 8.0. Hemoglobin 8.6. Platelets 149. Sodium 136. Potassium 4.1. Bicarb 52. Creatinine 1.4. AST 218. ALT 153. Hepatobiliary scan was within normal limits. Currently in a negative 1.6 L balance. The patient is seen today July 06, 2023 in follow-up on the regular medical [facility] or. She is sitting up in bed. Family is at the bedside. She remains quite weak and debilitated. She is maintaining good O2 saturations in the 90s on room air. She remains on cefepime. Continued on bronchodilators. Remains on oral diuretics. White count 11.7. Hemoglobin 8.5. Platelets 167. Sodium 137. Potassium 3.4. Bicarb 26. BUN 49. Creatinine 1.1. Glucose 88. The patient is seen today July 07, 2023 in follow-up on the regular medical floor. She is awake and alert in no acute distress. She does remain very weak and debilitated. Not taking much oral intake. White count 12.0. Hemoglobin 8.8. Platelets 189. Sodium 137. Potassium 4.3. Bicarb 25. BUN 52. Creatinine 1.2. Glucose 79. AST 135. ALT 178. She remains in a -750 mL balance. She is continued on DuoNeb inhalations. Remains on oral diuretics. Remains on cefepime. The patient is seen today July 15, 2023 in follow-up on the regular medical floor. She is currently sitting up in bed. Awake and alert in no acute distress. She remains quite weak and debilitated. Her appetite is poor. She has been being considered for a PEG tube placement. Ultrasound of the abdomen revealed a small amount of ascites in the left lower quadrant. Her hemoglobin continues to drift down currently at 7.1. 1 unit of packed red blood cells have been transfused. White count 10.1. Platelets 124. INR 1.4. Sodium 137. Potassium 5.0. Bicarb 19. BUN 63. Creatinine 1.6. Glucose 80. Remains on she is daptomycin. Continued on bronchodilators. Anticoagulated with warfarin. The patient is seen today July 16, 2023 in follow-up on the regular medical floor. She remains awake and alert in no acute distress. Maintaining O2 saturations in the 90s on 2 L/min per nasal cannula. She is on Megace attempting to improve her appetite. She remains on daptomycin. Anticoagulated with warfarin. Continued on bronchodilators. White count 10.1. Hemoglobin 8.6. Platelets 176. INR 1.6. Sodium 134. Potassium 4.8. Bicarb 19. BUN 60. Creatinine 1.31. Glucose 81. The patient is seen today July 17, 2023 in follow-up on the regular medical floor. She is sitting up in bed. Awake and alert. Maintaining good O2 saturations in the upper 90s on room air. Afebrile. Hemodynamically stable. Urine culture was positive for Chaparrita and Enterococcus gallinarum. She remains on daptomycin. White count 7.7. Hemoglobin 8.4. Platelets 178. INR 1.9. Sodium 134. Potassium 5.0. Bicarb 22. BUN 59. Creatinine 1.10. Glucose 84. She remains on Megace. Continued on bronchodilators. Anticoagulated with warfarin. The patient is seen today July 18, 2023 in follow-up on the regular medical floor. She is currently sitting up in bed. Awake and alert in no acute distress. She is maintaining good O2 saturations in the 90s on 2 L/min per nasal cannula. She is afebrile. Hemodynamically stable. She remains very weak and debilitated. She remains with a poor appetite. She remains reluctant to take any m edications. Remains reluctant to work with physical therapy. Chest x-ray shows interval worsening in the patchy bilateral airspace disease. She is status post 2 units of packed red blood cells this admission. Most recent hemoglobin 8.4. INR 2.6 today. Sodium 135. Potassium 5.5. Bicarb 19. BUN 53. Creatinine 1.1. Glucose 95. She is continued on bronchodilators. Remains on warfarin. Objective - Vital Signs Vital signs: Vital Signs Temp 98.2 F 07/18/23 07:34 Pulse 98 07/18/23 12:19 Resp 20 07/18/23 07:34 BP 111/56 07/18/23 07:34 Pulse Ox 88 L 07/18/23 07:34 FiO2 21 07/05/23 07:54 Intake & Output 07/17/23 07/18/23 07/18/23 18:59 06:59 18:59 Output Total 700 500 Balance -700 -500 Output: Urine 700 500 Uretheral ([place]) 500 Other: Voiding Method Indwelling Catheter Indwelling Catheter # Bowel Movements 3 1 - Exam GENERAL EXAM: Alert, very weak, frail 82-year-old female, on 2 L nasal cannula, resting in bed. HEAD: Normocephalic. EYES: Normal reaction of pupils, equal size. NOSE: Clear with pink turbinates. THROAT: No erythema or exudates. NECK: No masses, no JVD. CHEST: No chest wall deformity. LUNGS: Equal air entry with crackles in the bilateral bases. CVS: S1 and S2 normal with no audible murmur, regular rhythm. ABDOMEN: No hepatosplenomegaly, normal bowel sounds, no guarding or rigidity. SPINE: No scoliosis or deformity SKIN: No rashes CENTRAL NERVOUS SYSTEM: No focal deficits, tone is normal in all 4 extremities. EXTREMITIES: There is no peripheral edema. No clubbing, no cyanosis. Periphe ral pulses are intact. - Labs CBC & Chem 7: 07/17/23 05:14 07/18/23 03:49 Labs: Abnormal Lab Results - Last 24 Hours (Table) 07/17/23 07/17/23 07/17/23 Range/Units 16:31 16:58 20:35 PT (10.0-12.5) sec INR (<1.2) Carbon Dioxide (21.6-31.8) mmol/L BUN (9.0-27.0) mg/dL Est GFR (CKD-EPI) (>=60) BUN/Creatinine Ratio (12.00-20.00) Ratio POC Glucose (mg/dL) 311 H 159 H 127 H (70-110) mg/dL Calcium (8.7-10.3) mg/dL 07/18/23 07/18/23 07/18/23 Range/Units 03:49 03:49 05:41 PT 26.0 H (10.0-12.5) sec INR 2.6 H (<1.2) Carbon Dioxide 18.5 L (21.6-31.8) mmol/L BUN 53.1 H (9.0-27.0) mg/dL Est GFR (CKD-EPI) 51 L (>=60) BUN/Creatinine Ratio 48.27 H (12.00-20.00) Ratio POC Glucose (mg/dL) 115 H (70-110) mg/dL Calcium 7.7 L (8.7-10.3) mg/dL 07/18/23 07/18/23 Range/Units 05:42 11:49 PT (10.0-12.5) sec INR (<1.2) Carbon Dioxide (21.6-31.8) mmol/L BUN (9.0-27.0) mg/dL Est GFR (CKD-EPI) (>=60) BUN/Creatinine Ratio (12.00-20.00) Ratio POC Glucose (mg/dL) 122 H 119 H (70-110) mg/dL Calcium (8.7-10.3) mg/dL Assessment and Plan Assessment: Acute on chronic hypoxic respiratory failure, multifactorial, recovered and on room air or occasionally preferring 2 L nasal cannula Acute on chronic congestive heart failure with preserved ejection fraction hyperdynamic LV with an ejection fraction of 70% Acute anemia with a hemoglobin of 6.9, received 2 units of packed red blood cells, current hemoglobin 8.4 Echogenic material within the gallbladder lumen with masslike appearance. Borderline gallbladder thickening. Hepatobiliary scan within normal limits Hepatic steatosis with ascites adjacent to the liver suspected Transaminitis, trending down Severe mitral stenosis Mild to moderate aortic stenosis Severe pulmonary hypertension with RVSP exceeding 50 mmHg History of COVID-19 pneumonia and healthcare acquired pneumonia, patient was treated with remdesivir on the last admission History of rheumatoid arthritis and possibly some component of interstitial lung disease Severe mitral valve disease with severe mitral stenosis, and mild aortic regurgitation and stenosis. History of rheumatoid arthritis Hypothyroidism Lifelong non-smoker Mild intermittent asthma Acute kidney injury/ATN Failure to thrive Very poor functional performance based on the above-mentioned multiple co morbidities Plan: The patient was seen and evaluated Labs and medications reviewed Prognosis remains poor Remains very weak and debilitated with failure to thrive Dr. Sarabia did speak with the patient's daughter today Recommending hospice care I have personally seen and examined the patient, performed the documentation and the assessment and plan as written. Number of minutes spent on the visit: 10.
--- NOTE | 2023-07-18 15:43 | P.PN ---
Subjective Progress Note Date: 07/17/23 Principal diagnosis: Reason for follow-up is sepsis UTI/pneumonia Patient is a 82-year-old female with a past medical history significant for hypertension hyperlipidemia mitral valve prolapse rheumatoid arthritis heart failure patient has been brought into the hospital for evaluation of increasing shortness of breath patient was initially admitted to the ICU concerning for sepsis secondary to possible pneumonia/UTI versus hepatobiliary source. On today's evaluation that is 07/17/2023, patient has been afebrile, patient is breathing comfortably and is currently on 2 L nasal cannula oxygen, patient denies having any significant cough no chest pain shortness of breath, patient denies nausea vomiting denies abdominal pain diarrhea has slowed down. Patient white count 7.7 creatinine 1.10 Objective - Vital Signs Vital signs: Vital Signs Temp 98.9 F 07/17/23 14:00 Pulse 72 07/17/23 16:45 Resp 16 07/17/23 14:00 BP 94/57 07/17/23 14:00 Pulse Ox 95 07/17/23 14:00 FiO2 21 07/05/23 07:54 Intake & Output 07/16/23 07/17/23 07/17/23 18:59 06:59 18:59 Output Total 450 300 Balance -450 -300 Weight 60 kg Output: Urine 450 300 Other: Voiding Method Indwelling Catheter Indwelling Catheter # Bowel Movements 1 1 - Exam GENERAL DESCRIPTION: An elderly female lying in bed in no distress RESPIRATORY SYSTEM: Unlabored breathing , decreased breath sounds at bases HEART: S1 S2 regular rate and rhythm , ABDOMEN: Soft , mild distention but no tenderness EXTREMITIES: No edema feet Patient did have a stage II pressure ulcer to the right gluteal and sacral area with some slough tissue - Labs CBC & Chem 7: 07/17/23 05:14 07/18/23 03:49 Labs: Abnormal Lab Results - Last 24 Hours (Table) 07/16/23 07/16/23 07/17/23 Range/Units 16:50 21:09 05:14 RBC (3.80-5.40) m/uL Hgb (11.4-16.0) gm/dL Hct (34.0-46.0) % RDW (11.5-15.5) % Myelocytes # (Manual) (0) k/uL PT 18.8 H (10.0-12.5) sec INR 1.9 H (<1.2) Sodium (137-145) mmol/L Chloride (98-107) mmol/L BUN (7-17) mg/dL Creatinine (0.52-1.04) mg/dL POC Glucose (mg/dL) 132 H 182 H (70-110) mg/dL Calcium (8.4-10.2) mg/dL 07/17/23 07/17/23 07/17/23 Range/Units 05:14 05:14 11:17 RBC 2.81 L (3.80-5.40) m/uL Hgb 8.4 L (11.4-16.0) gm/dL Hct 26.9 L (34.0-46.0) % RDW 18.3 H (11.5-15.5) % Myelocytes # (Manual) 0.15 H (0) k/uL PT (10.0-12.5) sec INR (<1.2) Sodium 134 L (137-145) mmol/L Chloride 112 H (98-107) mmol/L BUN 59 H (7-17) mg/dL Creatinine 1.10 H (0.52-1.04) mg/dL POC Glucose (mg/dL) 115 H (70-110) mg/dL Calcium 7.5 L (8.4-10.2) mg/dL 07/17/23 Range/Units 16:31 RBC (3.80-5.40) m/uL Hgb (11.4-16.0) gm/dL Hct (34.0-46.0) % RDW (11.5-15.5) % Myelocytes # (Manual) (0) k/uL PT (10.0-12.5) sec INR (<1.2) Sodium (137-145) mmol/L Chloride (98-107) mmol/L BUN (7-17) mg/dL Creatinine (0.52-1.04) mg/dL POC Glucose (mg/dL) 311 H (70-110) mg/dL Calcium (8.4-10.2) mg/dL Assessment and Plan (1) UTI (urinary tract infection) Current Visit: Yes Status: Acute Code(s): N39.0 - URINARY TRACT INFECTION, SITE NOT SPECIFIED SNOMED Code(s): 54974129 (2) Elevated liver enzymes Current Visit: Yes Status: Acute Code(s): R74.8 - ABNORMAL LEVELS OF OTHER SERUM ENZYMES SNOMED Code(s): 223538714 (3) Pneumonia Current Visit: Yes Status: Acute Code(s): J18.9 - PNEUMONIA, UNSPECIFIED ORGANISM SNOMED Code(s): 947188187 (4) Leukocytosis Current Visit: No Status: Acute Code(s): D72.829 - ELEVATED WHITE BLOOD CELL COUNT, UNSPECIFIED SNOMED Code(s): 920065874 (5) Diarrhea Current Visit: Yes Status: Acute Code(s): R19.7 - DIARRHEA, UNSPECIFIED SNOMED Code(s): 47737389 Plan: 1-patient did have a stage II sacral pressure ulcer to the right gluteal and sacral area local care with the [facility] followed by moist dressing keep the area of the pressure 2-patient with leukocytosis which is likely related to catheter assisted UTI with urine culture currently growing Chaparrita unfortunately we are not able to use Diflucan because of her cardiac medication also grew VRE 3-patient white count has normalized patient is currently covered with the daptomycin and monitor clinical course closely Dictation was produced using [employer] dictation software. please excuse any grammatical, word or spelling errors. Time with Patient: Less than 30
--- NOTE | 2023-07-18 15:43 | P.PN ---
Subjective Progress Note Date: 07/16/23 Principal diagnosis: Reason for follow-up is sepsis UTI/pneumonia Patient is a 82-year-old female with a past medical history significant for hypertension hyperlipidemia mitral valve prolapse rheumatoid arthritis heart failure patient has been brought into the hospital for evaluation of increasing shortness of breath patient was initially admitted to the ICU concerning for sepsis secondary to possible pneumonia/UTI versus hepatobiliary source. On today's evaluation that is 07/16/2023, Patient is afebrile patient is currently on 2 L nasal cannula oxygen denies having any shortness of breath, the patient denies any chest pain or cough, the patient denies any nausea vomiting did not have any abdominal pain and no worsening diarrhea reported by the nursing staff. The patient white count is 10.1 creatinine is 1.31 Objective - Vital Signs Vital signs: Vital Signs Temp 97.5 F L 07/16/23 13:40 Pulse 76 07/16/23 15:09 Resp 19 07/16/23 13:40 BP 96/54 07/16/23 13:40 Pulse Ox 99 07/16/23 13:40 FiO2 21 07/05/23 07:54 Intake & Output 07/15/23 07/16/23 07/16/23 18:59 06:59 18:59 Intake Total 310 Output Total 300 400 Balance 10 -400 Weight 56 kg 56.5 kg Intake: Blood Product 310 Rc As-1 Unit 310 [id number] Output: Urine 300 400 Other: Voiding Method Indwelling Catheter Indwelling Catheter Indwelling Catheter # Bowel Movements 5 2 - Exam GENERAL DESCRIPTION: An elderly female lying in bed in no distress RESPIRATORY SYSTEM: Unlabored breathing , decreased breath sounds at bases HEART: S1 S2 regular rate and rhythm , ABDOMEN: Soft , mild distention but no tenderness EXTREMITIES: No edema feet Patient did have a stage II pressure ulcer to the right gluteal and sacral area with some slough tissue - Labs CBC & Chem 7: 07/17/23 05:14 07/18/23 03:49 Labs: Abnormal Lab Results - Last 24 Hours (Table) 07/15/23 07/15/23 07/15/23 Range/Units 11:36 16:11 20:47 RBC (3.80-5.40) m/uL Hgb (11.4-16.0) gm/dL Hct (34.0-46.0) % RDW (11.5-15.5) % PT (10.0-12.5) sec INR (<1.2) Sodium (137-145) mmol/L Chloride (98-107) mmol/L Carbon Dioxide (22-30) mmol/L BUN (7-17) mg/dL Creatinine (0.52-1.04) mg/dL POC Glucose (mg/dL) 161 H 187 H (70-110) mg/dL Calcium (8.4-10.2) mg/dL Crossmatch See Detail 07/16/23 07/16/23 07/16/23 Range/Units 05:32 05:32 05:32 RBC 2.77 L (3.80-5.40) m/uL Hgb 8.6 L (11.4-16.0) gm/dL Hct 26.6 L (34.0-46.0) % RDW 18.5 H (11.5-15.5) % PT 16.5 H (10.0-12.5) sec INR 1.6 H (<1.2) Sodium 134 L (137-145) mmol/L Chloride 113 H (98-107) mmol/L Carbon Dioxide 19 L (22-30) mmol/L BUN 60 H (7-17) mg/dL Creatinine 1.31 H (0.52-1.04) mg/dL POC Glucose (mg/dL) (70-110) mg/dL Calcium 7.6 L (8.4-10.2) mg/dL Crossmatch 07/16/23 Range/Units 11:36 RBC (3.80-5.40) m/uL Hgb (11.4-16.0) gm/dL Hct (34.0-46.0) % RDW (11.5-15.5) % PT (10.0-12.5) sec INR (<1.2) Sodium (137-145) mmol/L Chloride (98-107) mmol/L Carbon Dioxide (22-30) mmol/L BUN (7-17) mg/dL Creatinine (0.52-1.04) mg/dL POC Glucose (mg/dL) 129 H (70-110) mg/dL Calcium (8.4-10.2) mg/dL Crossmatch Microbiology - Last 24 Hours (Table) 07/10/23 14:40 Blood Culture - Final Blood Assessment and Plan (1) UTI (urinary tract infection) Current Visit: Yes Status: Acute Code(s): N39.0 - URINARY TRACT INFECTION, SITE NOT SPECIFIED SNOMED Code(s): 02387071 (2) Elevated liver enzymes Current Visit: Yes Status: Acute Code(s): R74.8 - ABNORMAL LEVELS OF OTHER SERUM ENZYMES SNOMED Code(s): 674298114 (3) Pneumonia Current Visit: Yes Status: Acute Code(s): J18.9 - PNEUMONIA, UNSPECIFIED ORGANISM SNOMED Code(s): 316970576 (4) Leukocytosis Current Visit: No Status: Acute Code(s): D72.829 - ELEVATED WHITE BLOOD CELL COUNT, UNSPECIFIED SNOMED Code(s): 114356818 (5) Diarrhea Current Visit: Yes Status: Acute Code(s): R19.7 - DIARRHEA, UNSPECIFIED SNOMED Code(s): 34670771 Plan: 1-patient did have a stage II sacral pressure ulcer to the right gluteal and sacral area local care with the [facility] [place] followed by moist dressing keep the area of the pressure 2-patient with leukocytosis which is likely related to catheter assisted UTI with urine culture currently growing Chaparrita unfortunately we are not able to use Diflucan because of her cardiac medication also grew VRE 3-patient white count has normalized continue with daptomycin Dictation was produced using [employer] dictation software. please excuse any grammatical, word or spelling errors. Time with Patient: Less than 30
--- NOTE | 2023-07-18 15:44 | P.PN ---
Subjective Progress Note Date: 07/18/23 Principal diagnosis: Reason for follow-up is sepsis UTI/pneumonia Patient is a 82-year-old female with a past medical history significant for hypertension hyperlipidemia mitral valve prolapse rheumatoid arthritis heart failure patient has been brought into the hospital for evaluation of increasing shortness of breath patient was initially admitted to the ICU concerning for sepsis secondary to possible pneumonia/UTI versus hepatobiliary source. On today's evaluation that is 07/18/2023,the patient denies any fever or any chills, patient is breathing comfortably on 2 L nasal oxygen the patient denies chest pain shortness of breath and no significant cough, patient denies abdominal pain, no nausea vomiting or any worsening diarrhea. No CBC was done during the patient creatinine is 1.1 INR is 2.6 Objective - Vital Signs Vital signs: Vital Signs Temp 98.2 F 07/18/23 07:34 Pulse 98 07/18/23 12:19 Resp 20 07/18/23 07:34 BP 111/56 07/18/23 07:34 Pulse Ox 88 L 07/18/23 07:34 FiO2 21 07/05/23 07:54 Intake & Output 07/17/23 07/18/23 07/18/23 18:59 06:59 18:59 Output Total 700 500 Balance -700 -500 Output: Urine 700 500 Uretheral (Caldwell) 500 Other: Voiding Method Indwelling Catheter Indwelling Catheter # Bowel Movements 3 1 - Exam GENERAL DESCRIPTION: An elderly female lying in bed in no distress RESPIRATORY SYSTEM: Unlabored breathing , decreased breath sounds at bases HEART: S1 S2 regular rate and rhythm , ABDOMEN: Soft , mild distention but no tenderness EXTREMITIES: No edema feet Patient did have a stage II pressure ulcer to the right gluteal and sacral area with some slough tissue - Labs CBC & Chem 7: 07/17/23 05:14 07/18/23 03:49 Labs: Abnormal Lab Results - Last 24 Hours (Table) 07/17/23 07/17/23 07/17/23 Range/Units 16:31 16:58 20:35 PT (10.0-12.5) sec INR (<1.2) Carbon Dioxide (21.6-31.8) mmol/L BUN (9.0-27.0) mg/dL Est GFR (CKD-EPI) (>=60) BUN/Creatinine Ratio (12.00-20.00) Ratio POC Glucose (mg/dL) 311 H 159 H 127 H (70-110) mg/dL Calcium (8.7-10.3) mg/dL 07/18/23 07/18/23 07/18/23 Range/Units 03:49 03:49 05:41 PT 26.0 H (10.0-12.5) sec INR 2.6 H (<1.2) Carbon Dioxide 18.5 L (21.6-31.8) mmol/L BUN 53.1 H (9.0-27.0) mg/dL Est GFR (CKD-EPI) 51 L (>=60) BUN/Creatinine Ratio 48.27 H (12.00-20.00) Ratio POC Glucose (mg/dL) 115 H (70-110) mg/dL Calcium 7.7 L (8.7-10.3) mg/dL 07/18/23 07/18/23 Range/Units 05:42 11:49 PT (10.0-12.5) sec INR (<1.2) Carbon Dioxide (21.6-31.8) mmol/L BUN (9.0-27.0) mg/dL Est GFR (CKD-EPI) (>=60) BUN/Creatinine Ratio (12.00-20.00) Ratio POC Glucose (mg/dL) 122 H 119 H (70-110) mg/dL Calcium (8.7-10.3) mg/dL Assessment and Plan (1) UTI (urinary tract infection) Current Visit: Yes Status: Acute Code(s): N39.0 - URINARY TRACT INFECTION, SITE NOT SPECIFIED SNOMED Code(s): 44699750 (2) Elevated liver enzymes Current Visit: Yes Status: Acute Code(s): R74.8 - ABNORMAL LEVELS OF OTHER SERUM ENZYMES SNOMED Code(s): 981715379 (3) Pneumonia Current Visit: Yes Status: Acute Code(s): J18.9 - PNEUMONIA, UNSPECIFIED ORGANISM SNOMED Code(s): 288585507 (4) Leukocytosis Current Visit: No Status: Acute Code(s): D72.829 - ELEVATED WHITE BLOOD CELL COUNT, UNSPECIFIED SNOMED Code(s): 845728086 (5) Diarrhea Current Visit: Yes Status: Acute Code(s): R19.7 - DIARRHEA, UNSPECIFIED SNOMED Code(s): 41968042 Plan: 1-patient did have a stage II sacral pressure ulcer to the right gluteal and sacral area local care with the Medihoney followed by moist dressing keep the area of the pressure 2-patient with leukocytosis which is likely related to catheter assisted UTI with urine culture currently growing Chaparrita unfortunately we are not able to use Diflucan because of her cardiac medication also grew VRE 3-patient white count has normalized patient to continue with the daptomycin however no plan for any IV antibiotic on discharge Family at the bedside questions were answered Dictation was produced using [employer] dictation software. please excuse any grammatical, word or spelling errors. Time with Patient: Less than 30
[2023-07-18 17:14] LABS: Glucose,Whole Blood 107 mg/dL (70-110)
[2023-07-18] MEDS: WARFARIN 0.5 MG TAB PO ONE (17:49)
[2023-07-18 19:59] LABS: Glucose,Whole Blood 99 mg/dL (70-110)
[2023-07-19 05:52] LABS: Glucose,Whole Blood 92 mg/dL (70-110)
[2023-07-19 10:45] LABS: HCT 27.4 % (37.2-46.3); HGB 8.5 g/dL (12.0-15.0); MCH 30.1 pg (27.0-32.0); MCV 97.2 FL (80.0-97.0); Mean Platelet Volume 10.3 FL (9.5-12.2); NRBC Per 100 WBC 0 X 10*3/uL (0.00-0.01); Platelet Count 259 X 10*3/uL (140-440); RBC 2.82 X 10*6/uL (4.10-5.20); WBC 12.16 X 10*3/uL (4.50-10.00)
[2023-07-19 11:04] LABS: ALT 40 U/L (8-44); AST 26 U/L (13-35); Albumin 1.8 g/dL (3.8-4.9); Albumin/Globulin Ratio 0.62 Ratio (1.60-3.17); Alkaline Phosphatase 121 U/L (41-126); Blood Urea Nitrogen 50.7 mg/dL (9.0-27.0); Calcium 7.8 mg/dL (8.7-10.3); Carbon Dioxide 21.1 mmol/L (21.6-31.8); Chloride 107 mmol/L (96-109); Globulin 2.9 g/dL (1.6-3.3); Glucose 85 mg/dL (70-110); Magnesium 1.7 mg/dL (1.5-2.4); Potassium 5.1 mmol/L (3.5-5.5); Sodium 138 mmol/L (135-145); Total Bilirubin 0.3 mg/dL (0.3-1.2); Total Protein 4.7 g/dL (6.2-8.2)
[2023-07-19 11:25] LABS: Basophils # (A) 0.06 X 10*3/uL (0.00-0.10); Basophils % (A) 0.5 %; Eosinophils # (A) 0.01 X 10*3/uL (0.04-0.35); Eosinophils % (A) 0.1 %; Lymphocytes # (A) 1.04 X 10*3/uL (0.90-5.00); Lymphocytes % (A) 8.6 %; Monocytes # (A) 1.42 X 10*3/uL (0.20-1.00); Monocytes % (A) 11.7 %; Neutrophils # (A) 9.02 X 10*3/uL (1.80-7.70); Neutrophils % (A) 74.1 %
--- NOTE | 2023-07-19 11:37 | P.PN ---
Subjective Patient is seen in follow-up for acute kidney injury. Renal function improved. Edema worse today. Oral intake poor. Nonoliguric. Vital signs - blood pressure on the lower side. General: No acute distress. HEENT: Head exam is unremarkable. LUNGS: No audible rhonchi or wheezes. HEART: Rate and Rhythm are regular. ABDOMEN: Nontender. EXTREMITITES: 2+ edema. Objective - Vital Signs Vital signs: Vital Signs Temp 96.4 F L 07/19/23 07:02 Pulse 90 07/19/23 09:19 Resp 17 07/19/23 07:02 BP 89/52 07/19/23 07:02 Pulse Ox 92 L 07/19/23 09:06 FiO2 21 07/05/23 07:54 Intake & Output 07/18/23 07/19/23 07/19/23 18:59 06:59 18:59 Intake Total 340 Output Total 600 Balance 340 -600 Intake: Intake, IV Titration 100 Amount DAPTOmycin 225 mg In 100 Sodium Chloride 0.9% 50 ml @ 100 mls/hr IVPB Q24H [facility] Rx#:[id number] Oral 240 Output: Urine 600 Other: Voiding Method Indwelling Catheter Indwelling Catheter Indwelling Catheter # Bowel Movements 1 2 - Labs CBC & Chem 7: 07/19/23 07:04 07/19/23 07:04 Labs: Abnormal Lab Results - Last 24 Hours (Table) 07/18/23 07/19/23 07/19/23 Range/Units 11:49 07:04 07:04 WBC 12.16 H (4.50-10.00) X 10*3/uL RBC 2.82 L (4.10-5.20) X 10*6/uL Hgb 8.5 L (12.0-15.0) g/dL Hct 27.4 L (37.2-46.3) % MCV 97.2 H (80.0-97.0) FL MCHC 31.0 L (32.0-37.0) g/dL RDW 19.0 H (11.5-14.5) % Immature Gran # 0.61 H (0.00-0.04) X 10*3/uL Neutrophils # 9.02 H (1.80-7.70) X 10*3/uL Monocytes # 1.42 H (0.20-1.00) X 10*3/uL Eosinophils # 0.01 L (0.04-0.35) X 10*3/uL Carbon Dioxide 21.1 L (21.6-31.8) mmol/L BUN 50.7 H (9.0-27.0) mg/dL Est GFR (CKD-EPI) 57 L (>=60) BUN/Creatinine Ratio 50.70 H (12.00-20.00) Ratio POC Glucose (mg/dL) 119 H (70-110) mg/dL Calcium 7.8 L (8.7-10.3) mg/dL Total Protein 4.7 L (6.2-8.2) g/dL Albumin 1.8 L (3.8-4.9) g/dL Albumin/Globulin Ratio 0.62 L (1.60-3.17) Ratio Assessment and Plan Plan: Assessment: 1. Acute kidney injury secondary to ATN secondary to severe sepsis. Was also on Bactrim prior to admission. No hydronephrosis noted on kidney ultrasound/CT. Renal function improved. Creatinine 1.0. Nonoliguric. 2. Chronic diastolic CHF with severe pulmonary hypertension, mild to moderate aortic stenosis, moderate aortic regurgitation, severe mitral stenosis. 3. Hyperkalemia secondary to acute kidney injury on Bactrim. Potassium level 5.5 today. 4. Edema. Partially third spacing from hypoalbuminemia. 5. Acute blood loss anemia. Status post blood transfusion this admission. Also received IV iron. On Aranesp. Defer blood transfusions to primary team and surgery. 6. Hyponatremia from poor solute intake. Hypervolemic. Stable. 7. Acute COVID infection. 8. Left abdominal rectus sheath hematoma. Surgery following. 9. Protein calorie malnutrition with albumin level of 2.0. s/p IV albumin 07/12/23. 10. Urinary retention. Caldwell catheter had to be reinserted. On Flomax. 11. Metabolic acidosis secondary to acute kidney injury. On oral bicarb. Better. Plan: Repeat IV Lasix today. Encouraged oral intake. Maintain 1500 cc fluid restriction. Avoid nephrotoxins. Continue to monitor renal function and urine output. Maintain midodrine. Hold for systolic blood pressure greater than 110. A.m. cortisol level not low. Case discussed with patient's daughter present at bedside. Conservative measures. Considering comfort measures as well.
[2023-07-19 11:40] LABS: Glucose,Whole Blood 155 mg/dL (70-110)
--- NOTE | 2023-07-19 11:55 | P.PN ---
Subjective Progress Note Date: 07/19/23 This is an 82-year-old female, familiar to my service, patient was recently in the hospital with acute COVID-19 pneumonia, congestive heart failure, atrial fibrillation with RVR, possible underlying interstitial lung disease, patient was discharged on 06/26/2023, pulmonary service has seen this patient initially on 06/09/2023, at that time the patient was admitted with acute hypoxic respiratory failure, acute COVID-19 pneumonia, chronic bronchial asthma, and possible hospital-acquired pneumonia. In addition the patient had mild intermittent asthma, congestive heart failure, severe mitral calcification and moderate to severe mitral stenosis with preserved LV function and preserved ejection fraction. She also has history of rheumatoid arthritis, hypothyroidism, and lifelong non-smoker. We saw this patient last on 06/26/2023,, she was on 2 L nasal cannula, her labs were unremarkable, her sputum cultures were nondiagnostic, blood cultures were nondiagnostic, she had relatively normal renal profile, and she was at the time on warfarin, Symbicort, Singulair and albuterol. Patient was discharged to the [facility] on the [place]. Patient was discharged on amiodarone, Coumadin, prednisone 20 mg daily, Lopressor, and nystatin swish and swallow. Otherwise the patient was kept on her usual medications including Symbicort, Jardiance, levothyroxine, Singulair, Fosamax, ascorbic acid, atorvastatin, Lasix 40 mg p.o. daily, and Xanax. As well as albuterol. Patient was sent from the [facility] down to the ER today mostly because of low O2 saturation, and patient was noted to have some shortness of breath. Chest x-ray on this admission showed cardiomegaly and mild pulmonary vascular congestion, no clear-cut evidence of pneumonia. As a matter fact her chest x-ray shows significant improvement compared to her initial chest x-ray on her last admission. In addition to her shortness of breath, patient was noted to have abnormal labs with a potassium of 6.2, her BUN is 79 and creatinine 1.71. Patient was also noted to have elevated BNP level of 27,000 and troponin leak. ABG on 50% FiO2 showed a pO2 of 69 pCO2 48 pH of 7.54. Patient is now on 3 L nasal cannula, seems to be comfortable, not in distress. Seen by nephrology for her acute kidney injury, ATN, hyperkalemia with acute kidney injury and apparently the patient was on Bactrim and the recommendation by nephrology was to continue with IV fluids, IV antibiotics, and repeat labs in AM. Patient has a very poor urine output, I did recommend a fluid bolus of 500 cc of saline while in the ER, blood pressure is marginal. Considering her marginal low blood pressure, I am recommending that the patient goes to the ICU. Nephrology is addressing her abnormal renal profile and hyperkalemia The patient is seen today June 30, 2023 in follow-up in the emergency department. She is currently sitting up in the stretcher. Awake and alert in no acute distress. Doing quite a bit better today compared to yesterday. Tolerating a clear liquid breakfast. Maintaining O2 saturations in the upper 90s on 6 L/min per nasal cannula. She has been afebrile. Hemodynamically stable. X-ray reveals some diffuse hazy and patchy bilateral airspace disease. Blood cultures are pending. White count 19.8. Hemoglobin 8.6. Platelets 210. Sodium 135. Potassium 4.4. Bicarb 32. BUN 70. Creatinine 1.21. Glucose 149. AST 250. ALT 242. Alk phos 403. Echocardiogram reveals a hyperdynamic LV with a EF around 70%. There is severe mitral stenosis and moderate aortic stenosis. Severe pulmonary hypertension with an RVSP exceeding 50 mmHg. She is continued on DuoNeb ventilations, IV diuretics, antibiotics in the form of vancomycin and cefepime. Procalcitonin pending. The patient is seen today July 01, 2023 in follow-up on the regular medical floor. She is currently sitting up in bed. Awake and alert in no acute distress. She is maintaining O2 saturations in the 90s on 6 L high flow nasal cannula. Her procalcitonin was 1.16. She remains on cefepime and vancomycin. Cultures are pending. Creatinine 1.18. Glucose 121. INR 6.4. She remains on bronchodilators, oral diuretics, anticoagulated with warfarin. The patient is seen today July 02, 2023 in follow-up on the regular medical floor. She is currently resting in bed. Awake and alert in no acute distress. She is maintaining good O2 saturations up to 100% on 6 L/min per nasal cannula. She is afebrile. Hemodynamically stable. Ultrasound of the abdomen reveals hepatic steatosis with ascites adjacent to the liver. Echogenic material within the gallbladder lumen with masslike appearance. Borderline gallbladder wall thickening. Hemoglobin 6.9. She is receiving 1 unit of packed red blood cells. Platelets 113. White count 4.7. INR 2.3. Sodium 135. Potassium 5.3. Bicarb 29. BUN 58. Creatinine 1.4. Glucose 103. She is continued on DuoNeb inh alations, cefepime and vancomycin. Remains on oral diuretics. The patient is seen today July 03, 2023 in follow-up on the regular medical floor. She is awake and alert in no acute distress. Sitting up in bed. Denies any worsening shortness of breath, cough or congestion. She is down to 2 L/min per nasal cannula. No IV fluids. She is continued on Maxipime and vancomycin. CT scan of the abdomen and pelvis reveals a left rectus hematoma. Moderate cardiomegaly. Moderate to severe diffuse opacities in the lungs could be due to edema atelectasis or infection. Chronic and likely incidental findings. X-ray of the left ankle reveals no evidence of acute fracture. Status post 1 unit of packed red blood cells this admission. Current hemoglobin 8.7. White count 4.5. Platelets 110. Sodium 130. Potassium 4.6. Bicarb 30. BUN 57. Creatinine 1.53. Glucose 87. AST 292. ALT 235. Vancomycin trough 18.0. She remains on DuoNeb inhalations. Oral diuretics. Receiving iron supplements. The patient is seen today July 04, 2023 in follow-up on the regular medical floor. He is currently sitting up in bed. Awake and alert in no acute distress. Maintaining good O2 saturations in the 90s on 2 L/min per nasal cannula. She denies any worsening shortness of breath, cough or congestion. She denies any abdominal pain. No fever or chills. White count 4.6. Hemoglobin 8.7. Platelets 123. Sodium 133. Potassium 4.4. Bicarb 26. BUN 51. Creatinine 1.3. Glucose 97. AST 211. ALT 214. Alk phos 164. Hepatobiliary scan pending. Chest x-ray reveals stable scattered airspace disease unchanged compared to previous. The patient is seen today July 05, 2023 in follow-up on the regular medical floor. She is resting comfortably in bed. Awake and alert in no acute distre ss. She is now on room air. No IV fluids. She remains on cefepime. Continued on bronchodilators. Continued on oral diuretics. Urine culture positive for Chaparrita. Blood cultures revealed no growth. White count 8.0. Hemoglobin 8.6. Platelets 149. Sodium 136. Potassium 4.1. Bicarb 52. Creatinine 1.4. AST 218. ALT 153. Hepatobiliary scan was within normal limits. Currently in a negative 1.6 L balance. The patient is seen today July 06, 2023 in follow-up on the regular medical [facility] or. She is sitting up in bed. Family is at the bedside. She remains quite weak and debilitated. She is maintaining good O2 saturations in the 90s on room air. She remains on cefepime. Continued on bronchodilators. Remains on oral diuretics. White count 11.7. Hemoglobin 8.5. Platelets 167. Sodium 137. Potassium 3.4. Bicarb 26. BUN 49. Creatinine 1.1. Glucose 88. The patient is seen today July 07, 2023 in follow-up on the regular medical floor. She is awake and alert in no acute distress. She does remain very weak and debilitated. Not taking much oral intake. White count 12.0. Hemoglobin 8.8. Platelets 189. Sodium 137. Potassium 4.3. Bicarb 25. BUN 52. Creatinine 1.2. Glucose 79. AST 135. ALT 178. She remains in a -750 mL balance. She is continued on DuoNeb inhalations. Remains on oral diuretics. Remains on cefepime. The patient is seen today July 15, 2023 in follow-up on the regular medical floor. She is currently sitting up in bed. Awake and alert in no acute distress. She remains quite weak and debilitated. Her appetite is poor. She has been being considered for a PEG tube placement. Ultrasound of the abdomen revealed a small amount of ascites in the left lower quadrant. Her hemoglobin continues to drift down currently at 7.1. 1 unit of packed red blood cells have been transfused. White count 10.1. Platelets 124. INR 1.4. Sodium 137. Potassium 5.0. Bicarb 19. BUN 63. Creatinine 1.6. Glucose 80. Remains on she is daptomycin. Continued on bronchodilators. Anticoagulated with warfarin. The patient is seen today July 16, 2023 in follow-up on the regular medical floor. She remains awake and alert in no acute distress. Maintaining O2 saturations in the 90s on 2 L/min per nasal cannula. She is on Megace attempting to improve her appetite. She remains on daptomycin. Anticoagulated with warfarin. Continued on bronchodilators. White count 10.1. Hemoglobin 8.6. Platelets 176. INR 1.6. Sodium 134. Potassium 4.8. Bicarb 19. BUN 60. Creatinine 1.31. Glucose 81. The patient is seen today July 17, 2023 in follow-up on the regular medical floor. She is sitting up in bed. Awake and alert. Maintaining good O2 saturations in the upper 90s on room air. Afebrile. Hemodynamically stable. Urine culture was positive for Chaparrita and Enterococcus gallinarum. She remains on daptomycin. White count 7.7. Hemoglobin 8.4. Platelets 178. INR 1.9. Sodium 134. Potassium 5.0. Bicarb 22. BUN 59. Creatinine 1.10. Glucose 84. She remains on Megace. Continued on bronchodilators. Anticoagulated with warfarin. The patient is seen today July 18, 2023 in follow-up on the regular medical floor. She is currently sitting up in bed. Awake and alert in no acute distress. She is maintaining good O2 saturations in the 90s on 2 L/min per nasal cannula. She is afebrile. Hemodynamically stable. She remains very weak and debilitated. She remains with a poor appetite. She remains reluctant to take any m edications. Remains reluctant to work with physical therapy. Chest x-ray shows interval worsening in the patchy bilateral airspace disease. She is status post 2 units of packed red blood cells this admission. Most recent hemoglobin 8.4. INR 2.6 today. Sodium 135. Potassium 5.5. Bicarb 19. BUN 53. Creatinine 1.1. Glucose 95. She is continued on bronchodilators. Remains on warfarin. The patient is seen today July 19, 2023 in follow-up on the regular medical floor. She continues to rest fairly comfortably in bed. Awake and alert. She is maintaining good O2 saturations in the 90s on 4 L/min per nasal cannula. She is afebrile. Hemodynamically stable. She is status post 2 units of packed red blood cells this admission. Current hemoglobin 8.5. Platelets 259. Count 12.1. Sodium 138. Potassium 5.1. Bicarb 21. BUN 51. Creatinine 1.0. Glucose 85. Is anticoagulated with warfarin. Continued on bronchodilators. Antibiotics in the form of daptomycin. Objective - Vital Signs Vital signs: Vital Signs Temp 96.4 F L 07/19/23 07:02 Pulse 90 07/19/23 09:19 Resp 17 07/19/23 07:02 BP 89/52 07/19/23 07:02 Pulse Ox 92 L 07/19/23 09:06 FiO2 21 07/05/23 07:54 Intake & Output 07/18/23 07/19/23 07/19/23 18:59 06:59 18:59 Intake Total 340 Output Total 600 Balance 340 -600 Intake: Intake, IV Titration 100 Amount DAPTOmycin 225 mg In 100 Sodium Chloride 0.9% 50 ml @ 100 mls/hr IVPB Q[facility]H [facility] Rx#:[id number] Oral 240 Output: Urine 600 Other: Voiding Method Indwelling Catheter Indwelling Catheter Indwelling Catheter # Bowel Movements 1 2 - Exam GENERAL EXAM: Alert, very weak, frail 82-year-old female, on 4 L nasal cannula, resting in bed. HEAD: Normocephalic. EYES: Normal reaction of pupils, equal size. NOSE: Clear with pink turbinates. THROAT: No erythema or exudates. NECK: No masses, no JVD. CHEST: No chest wall deformity. LUNGS: Equal air entry with crackles in the bilateral bases. CVS: S1 and S2 normal with no audible murmur, regular rhythm. ABDOMEN: No hepatosplenomegaly, normal bowel sounds, no guarding or rigidity. SPINE: No scoliosis or deformity SKIN: No rashes CENTRAL NERVOUS SYSTEM: No focal deficits, tone is normal in all 4 extremities. EXTREMITIES: There is no peripheral edema. No clubbing, no cyanosis. Peripheral pulses are intact. - Labs CBC & Chem 7: 07/19/23 07:04 07/19/23 07:04 Labs: Abnormal Lab Results - Last 24 Hours (Table) 07/18/23 07/19/23 07/19/23 Range/Units 11:49 07:04 07:04 WBC 12.16 H (4.50-10.00) X 10*3/uL RBC 2.82 L (4.10-5.20) X 10*6/uL Hgb 8.5 L (12.0-15.0) g/dL Hct 27.4 L (37.2-46.3) % MCV 97.2 H (80.0-97.0) FL MCHC 31.0 L (32.0-37.0) g/dL RDW 19.0 H (11.5-14.5) % Immature Gran # 0.61 H (0.00-0.04) X 10*3/uL Neutrophils # 9.02 H (1.80-7.70) X 10*3/uL Monocytes # 1.42 H (0.20-1.00) X 10*3/uL Eosinophils # 0.01 L (0.04-0.35) X 10*3/uL Carbon Dioxide 21.1 L (21.6-31.8) mmol/L BUN 50.7 H (9.0-27.0) mg/dL Est GFR (CKD-EPI) 57 L (>=60) BUN/Creatinine Ratio 50.70 H (12.00-20.00) Ratio POC Glucose (mg/dL) 119 H (70-110) mg/dL Calcium 7.8 L (8.7-10.3) mg/dL Total Protein 4.7 L (6.2-8.2) g/dL Albumin 1.8 L (3.8-4.9) g/dL Albumin/Globulin Ratio 0.62 L (1.60-3.17) Ratio /01/01 Range/Units 11:39 WBC (4.50-10.00) X 10*3/uL RBC (4.10-5.20) X 10*6/uL Hgb (12.0-15.0) g/dL Hct (37.2-46.3) % MCV (80.0-97.0) FL MCHC (32.0-37.0) g/dL RDW (11.5-14.5) % Immature Gran # (0.00-0.04) X 10*3/uL Neutrophils # (1.80-7.70) X 10*3/uL Monocytes # (0.20-1.00) X 10*3/uL Eosinophils # (0.04-0.35) X 10*3/uL Carbon Dioxide (21.6-31.8) mmol/L BUN (9.0-27.0) mg/dL Est GFR (CKD-EPI) (>=60) BUN/Creatinine Ratio (12.00-20.00) Ratio POC Glucose (mg/dL) 155 H (70-110) mg/dL Calcium (8.7-10.3) mg/dL Total Protein (6.2-8.2) g/dL Albumin (3.8-4.9) g/dL Albumin/Globulin Ratio (1.60-3.17) Ratio Assessment and Plan Assessment: Acute on chronic hypoxic respiratory failure, multifactorial, currently on 4 L/min per nasal cannula Acute on chronic congestive heart failure with preserved ejection fraction hyperdynamic LV with an ejection fraction of 70% Acute anemia with a hemoglobin of 6.9, received 2 units of packed red blood cells, current hemoglobin 8.5 Echogenic material within the gallbladder lumen with masslike appearance. Borderline gallbladder thickening. Hepatobiliary scan within normal limits Hepatic steatosis with ascites adjacent to the liver suspected Transaminitis, trending down Severe mitral stenosis Mild to moderate aortic stenosis Severe pulmonary hypertension with RVSP exceeding 50 mmHg History of COVID-19 pneumonia and healthcare acquired pneumonia, patient was treated with remdesivir on the last admission History of rheumatoid arthritis and possibly some component of interstitial lung disease Severe mitral valve disease with severe mitral stenosis, and mild aortic regurgitation and stenosis. History of rheumatoid arthritis Hypothyroidism Lifelong non-smoker Mild intermittent asthma Acute kidney injury/ATN Failure to thrive Very poor functional performance based on the above-mentioned multiple comorbidities Plan: The patient was seen and evaluated Labs and medications reviewed Prognosis remains poor Remains very weak and debilitated with failure to thrive Family is considering hospice care Until a final decision is made we will continue with full supportive care This patient was seen independently by the pulmonary nurse practitioner addressing pulmonary issues I have personally seen and examined the patient, performed the documentation and the assessment and plan as written. Number of minutes spent on the visit: 24.
--- NOTE | 2023-07-19 12:34 | P.PN ---
Subjective Progress Note Date: 07/19/23 CHIEF COMPLAINT: Shortness of breath HISTORY OF PRESENT ILLNESS: Surgical service following in regards to patient's acute cholecystitis and Left rectus sheath hematoma. Patient reports no abdominal pain. She tolerated diet. Eating a small amount. No new complaints. afebrile. PHYSICAL EXAM: VITAL SIGNS: Reviewed. GENERAL: no acute distress. ABDOMEN: Soft. Nondistended. ASSESSMENT: 1. Acute cholecystitis. Echogenic material within the gallbladder lumen with masslike appearance and borderline gallbladder wall thickening noted on ultrasound 2. Elevated LFTs 3. Left abdominal rectus sheath hematoma with Coumadin toxicity present on admission 4. Acute blood loss anemia due to rectus sheath hematoma requiring blood transfusion 5. Sacral decubitus ulcer and ulceration posterior left upper thigh PLAN: -Patient is a poor surgical candidate. No surgical intervention planned. P atient reports no abdominal pain. -Recommend no debridement of the sacral and upper left posterior thigh. -Continue local wound care -Continue offloading -Continue medical management -Continue low-fat diet -Patient evaluated by speech therapy Physician Legal Billing Clerk note has been reviewed by physician. Signing provider agrees with the documented findings, assessment, and plan of care. Objective - Vital Signs Vital signs: Vital Signs Temp 96.4 F L 07/19/23 07:02 Pulse 90 07/19/23 09:19 Resp 17 07/19/23 07:02 BP 89/52 07/19/23 07:02 Pulse Ox 92 L 07/19/23 09:06 FiO2 21 07/05/23 07:54 Intake & Output 07/18/23 07/19/23 07/19/23 18:59 06:59 18:59 Intake Total 340 Output Total 600 Balance 340 -600 Intake: Intake, IV Titration 100 Amount DAPTOmycin 225 mg In 100 Sodium Chloride 0.9% 50 ml @ 100 mls/hr IVPB Q24H [facility] Rx#:[id number] Oral 240 Output: Urine 600 Other: Voiding Method Indwelling Catheter Indwelling Catheter Indwelling Catheter # Bowel Movements 1 2 - Labs CBC & Chem 7: 07/19/23 07:04 07/19/23 07:04 Labs: Abnormal Lab Results - Last 24 Hours (Table) 07/19/23 07/19/23 07/19/23 Range/Units 07:04 07:04 11:39 WBC 12.16 H (4.50-10.00) X 10*3/uL RBC 2.82 L (4.10-5.20) X 10*6/uL Hgb 8.5 L (12.0-15.0) g/dL Hct 27.4 L (37.2-46.3) % MCV 97.2 H (80.0-97.0) FL MCHC 31.0 L (32.0-37.0) g/dL RDW 19.0 H (11.5-14.5) % Immature Gran # 0.61 H (0.00-0.04) X 10*3/uL Neutrophils # 9.02 H (1.80-7.70) X 10*3/uL Monocytes # 1.42 H (0.20-1.00) X 10*3/uL Eosinophils # 0.01 L (0.04-0.35) X 10*3/uL Carbon Dioxide 21.1 L (21.6-31.8) mmol/L BUN 50.7 H (9.0-27.0) mg/dL Est GFR (CKD-EPI) 57 L (>=60) BUN/Creatinine Ratio 50.70 H (12.00-20.00) Ratio POC Glucose (mg/dL) 155 H (70-110) mg/dL Calcium 7.8 L (8.7-10.3) mg/dL Total Protein 4.7 L (6.2-8.2) g/dL Albumin 1.8 L (3.8-4.9) g/dL Albumin/Globulin Ratio 0.62 L (1.60-3.17) Ratio
[2023-07-19] MEDS: FUROSEMIDE 10 MG/ML 4 ML VIAL IV STA (13:15)
[2023-07-19 14:24] VITALS: BMI 23.4
[2023-07-19 14:57] LABS: INR 3.9 (<1.2)
--- NOTE | 2023-07-19 16:19 | P.PN ---
Subjective Progress Note Date: 07/19/23 Principal diagnosis: Reason for follow-up is sepsis UTI/pneumonia Patient is a 82-year-old female with a past medical history significant for hypertension hyperlipidemia mitral valve prolapse rheumatoid arthritis heart failure patient has been brought into the hospital for evaluation of increasing shortness of breath patient was initially admitted to the ICU concerning for sepsis secondary to possible pneumonia/UTI versus hepatobiliary source. On today's evaluation that is 07/19/2023,the patient is afebrile this afternoon, patient is 4 L nasal cannula supplemental oxygen and denies any shortness of breath no chest pain or cough.Patient denies having any nausea or vomiting, no abdominal pain and no worsening diarrhea has been reported by the nursing staff. Patient white count is slightly up at 12.16 creatinine is 1.0 Objective - Vital Signs Vital signs: Vital Signs Temp 96.4 F L 07/19/23 07:02 Pulse 90 07/19/23 09:19 Resp 17 07/19/23 07:02 BP 89/52 07/19/23 07:02 Pulse Ox 92 L 07/19/23 09:06 FiO2 21 07/05/23 07:54 Intake & Output 07/18/23 07/19/23 07/19/23 18:59 06:59 18:59 Intake Total 340 Output Total 600 Balance 340 -600 Intake: Intake, IV Titration 100 Amount DAPTOmycin 225 mg In 100 Sodium Chloride 0.9% 50 ml @ 100 mls/hr IVPB Q24H [facility] Rx#:[id number] Oral 240 Output: Urine 600 Other: Voiding Method Indwelling Catheter Indwelling Catheter Indwelling Catheter # Bowel Movements 1 2 - Exam GENERAL DESCRIPTION: An elderly female lying in bed in no distress RESPIRATORY SYSTEM: Unlabored breathing , decreased breath sounds at bases HEART: S1 S2 regular rate and rhythm , ABDOMEN: Soft , mild distention but no tenderness EXTREMITIES: No edema feet Patient did have a stage II pressure ulcer to the right gluteal and sacral area has more necrotic tissue on today's evaluation - Labs CBC & Chem 7: 07/19/23 07:04 07/19/23 07:04 Labs: Abnormal Lab Results - Last 24 Hours (Table) 07/19/23 07/19/23 07/19/23 Range/Units 07:04 07:04 11:39 WBC 12.16 H (4.50-10.00) X 10*3/uL RBC 2.82 L (4.10-5.20) X 10*6/uL Hgb 8.5 L (12.0-15.0) g/dL Hct 27.4 L (37.2-46.3) % MCV 97.2 H (80.0-97.0) FL MCHC 31.0 L (32.0-37.0) g/dL RDW 19.0 H (11.5-14.5) % Immature Gran # 0.61 H (0.00-0.04) X 10*3/uL Neutrophils # 9.02 H (1.80-7.70) X 10*3/uL Monocytes # 1.42 H (0.20-1.00) X 10*3/uL Eosinophils # 0.01 L (0.04-0.35) X 10*3/uL Carbon Dioxide 21.1 L (21.6-31.8) mmol/L BUN 50.7 H (9.0-27.0) mg/dL Est GFR (CKD-EPI) 57 L (>=60) BUN/Creatinine Ratio 50.70 H (12.00-20.00) Ratio POC Glucose (mg/dL) 155 H (70-110) mg/dL Calcium 7.8 L (8.7-10.3) mg/dL Total Protein 4.7 L (6.2-8.2) g/dL Albumin 1.8 L (3.8-4.9) g/dL Albumin/Globulin Ratio 0.62 L (1.60-3.17) Ratio Assessment and Plan (1) UTI (urinary tract infection) Current Visit: Yes Status: Acute Code(s): N39.0 - URINARY TRACT INFECTION, SITE NOT SPECIFIED SNOMED Code(s): 11468536 (2) Elevated liver enzymes Current Visit: Yes Status: Acute Code(s): R74.8 - ABNORMAL LEVELS OF OTHER SERUM ENZYMES SNOMED Code(s): 252807769 (3) Pneumonia Current Visit: Yes Status: Acute Code(s): J18.9 - PNEUMONIA, UNSPECIFIED ORGANISM SNOMED Code(s): 123429289 (4) Leukocytosis Current Visit: No Status: Acute Code(s): D72.829 - ELEVATED WHITE BLOOD CELL COUNT, UNSPECIFIED SNOMED Code(s): 995010910 (5) Diarrhea Current Visit: Yes Status: Acute Code(s): R19.7 - DIARRHEA, UNSPECIFIED SNOMED Code(s): 68938632 Plan: 1-patient did have a stage II sacral pressure ulcer to the right gluteal and sacral area local care with the Medihoney followed by moist dressing keep the area of the pressure 2-patient with leukocytosis which is likely related to catheter assisted UTI with urine culture currently growing Chaparrita unfortunately we are not able to use Diflucan because of her cardiac medication also grew VRE 3-patient is currently covered with the daptomycin for VRE urinary tract infection to continue, patient noted to have slight worsening of her sacral pressure ulcer surgical debridement has been discussed with the family also noted to have slight worsening of the white count to review monitor closely Dictation was produced using [employer] dictation software. please excuse any grammatical, word or spelling errors.
[2023-07-19 16:23] LABS: Glucose,Whole Blood 186 mg/dL (70-110)
[2023-07-19] MEDS: WARFARIN 0.5 MG TAB PO ONE (16:58)
--- NOTE | 2023-07-19 17:24 | P.PN ---
Subjective Progress Note Date: 07/19/23 82-year-old lady with past medical history significant for congestive heart failure, atrial fibrillation with RVR,presented to the ER because of worsening shortness of breath. Patient was only recently discharged on 06/25 after being treated in the hospital for similar complaints.after discharge, patient was all right for 1 day but started noticing that she was getting more short of breath on exertion. Patient denied any chest pain. There was no complain of orthopnea or PND. There was no complain of swelling of feet. There was no complain of fever or chills. Patient oxygen requirements were also increasing so she was transferred back to the ER Initial lab work done in the ER showed WBC 28, hemoglobin 10.5, platelet count 332, INR 3.7, sodium 138, potassium 6.2, BUN 79, creatinine1.71, AST 378, ALT 350, troponin 0.247 EKG done in the ER showed heart rate of 81 , no ST segment elevation or depression seen, no T-wave inversions seen. Chest x-ray done in the ER showed cardiomegaly and moderate vascular congestion Patient admitted to internal medicine service Objective - Vital Signs Vital signs: Vital Signs Temp 96.4 F L 07/19/23 07:02 Pulse 90 07/19/23 09:19 Resp 17 07/19/23 07:02 BP 89/52 07/19/23 07:02 Pulse Ox 92 L 07/19/23 09:06 FiO2 21 07/05/23 07:54 Intake & Output 07/18/23 07/19/23 07/19/23 18:59 06:59 18:59 Intake Total 340 Output Total 600 Balance 340 -600 Intake: Intake, IV Titration 100 Amount DAPTOmycin 225 mg In 100 Sodium Chloride 0.9% 50 ml @ 100 mls/hr IVPB Q24H [facility] Rx#:[id number] Oral 240 Output: Urine 600 Other: Voiding Method Indwelling Catheter Indwelling Catheter Indwelling Catheter # Bowel Movements 1 2 - Exam HEENT: Normocephalic. Neck is supple. Pupils reactive. Nostrils clear. Oral cavity is moist. Neck reveals no JVD, carotid bruits, or thyromegaly. CHEST EXAMINATION: Trachea is central. Symmetrical expansion. Bibasilar diminished sounds. No wheezing or rhonchi.. CARDIAC: Normal S1, S2 with no gallops. No murmurs ABDOMEN: Soft. Bowel sounds normal. No organomegaly. No abdominal bruits. Extremities: reveal no edema. No clubbing or cyanosis Neurologically awake, alert, oriented x 1-2 able to move all extremities. No gross focal deficits noted Skin: No rash or skin lesions. Psychiatric: Coperative. Could not be assessed completely Musculoskeletal: No joint swelling or deformity. - Labs CBC & Chem 7: 07/19/23 07:04 07/19/23 07:04 Labs: Abnormal Lab Results - Last 24 Hours (Table) 07/18/23 07/19/23 07/19/23 Range/Units 11:49 07:04 07:04 WBC 12.16 H (4.50-10.00) X 10*3/uL RBC 2.82 L (4.10-5.20) X 10*6/uL Hgb 8.5 L (12.0-15.0) g/dL Hct 27.4 L (37.2-46.3) % MCV 97.2 H (80.0-97.0) FL MCHC 31.0 L (32.0-37.0) g/dL RDW 19.0 H (11.5-14.5) % Immature Gran # 0.61 H (0.00-0.04) X 10*3/uL Neutrophils # 9.02 H (1.80-7.70) X 10*3/uL Monocytes # 1.42 H (0.20-1.00) X 10*3/uL Eosinophils # 0.01 L (0.04-0.35) X 10*3/uL Carbon Dioxide 21.1 L (21.6-31.8) mmol/L BUN 50.7 H (9.0-27.0) mg/dL Est GFR (CKD-EPI) 57 L (>=60) BUN/Creatinine Ratio 50.70 H (12.00-20.00) Ratio POC Glucose (mg/dL) 119 H (70-110) mg/dL Calcium 7.8 L (8.7-10.3) mg/dL Total Protein 4.7 L (6.2-8.2) g/dL Albumin 1.8 L (3.8-4.9) g/dL Albumin/Globulin Ratio 0.62 L (1.60-3.17) Ratio 05/10/24 Range/Units 11:39 WBC (4.50-10.00) X 10*3/uL RBC (4.10-5.20) X 10*6/uL Hgb (12.0-15.0) g/dL Hct (37.2-46.3) % MCV (80.0-97.0) FL MCHC (32.0-37.0) g/dL RDW (11.5-14.5) % Immature Gran # (0.00-0.04) X 10*3/uL Neutrophils # (1.80-7.70) X 10*3/uL Monocytes # (0.20-1.00) X 10*3/uL Eosinophils # (0.04-0.35) X 10*3/uL Carbon Dioxide (21.6-31.8) mmol/L BUN (9.0-27.0) mg/dL Est GFR (CKD-EPI) (>=60) BUN/Creatinine Ratio (12.00-20.00) Ratio POC Glucose (mg/dL) 155 H (70-110) mg/dL Calcium (8.7-10.3) mg/dL Total Protein (6.2-8.2) g/dL Albumin (3.8-4.9) g/dL Albumin/Globulin Ratio (1.60-3.17) Ratio Assessment and Plan Assessment: * Left abdominal rectus sheath hematoma improved. Hemoglobin is fairly stable. * Acute on chronic diastolic heart failure; Moderate to severe mitral calcification, moderate to severe mitral stenosis, mild aortic regurgitation and stenosis, Severe Pulmonary hypertension WHO class II. * Acute hypoxic respiratory failure due to asthma exacerbation; was requiring 6L and has weaned to 2 L. * Non-ST elevation OH * Hyperkalemia RESOLVED * Anemia iron deficient with acute blood loss anemia from the left rectus sheath hematoma * Acute transaminitis with concern for acute cholecystitis, HIDA scan normal. Not a surgical candidate at this time. * Urinary tract infection with VRE * Acute kidney injury due to ATN severe sepsis. Improving. * Recent hospitalization for COVID in May, PCR still positive; not in active infection. * Supratherapeutic INR on admission while on Coumadin * Paroxysmal atrial fibrillation * History of coronary artery disease with previous PCI/stent x3 * History of hyperlipidemia * History of hypertension * Rheumatoid arthritis * Hypothyroidism. Started back on levothyroxine. * Mild protein calorie malnutrition * Stage 2 pressure injury on right and left buttock present on admission * Sacral decubitus ulcer, unstageable present on admission. * Lifelong non-smoker Plan * In regards to atrial fibrillation patient was started on amiodarone and Coumadin however amiodarone was discontinued and patient was transition to dronedarone , continue telemonitoring * In regards to [id number] continue patient on midodrine for blood pressure support, Lasix placed on hold on 07/13 due to hypotension * In regards to urinary tract infection and pneumonia , was on cefepime, completed antibiotic course, already started on daptomycin by infectious disease secondary to VRE * In regards to anemia patient given IV iron replacement , received 1 unit of packed RBC earlier in hospitalization second unit ordered on 07/15/2023 * In regards to rectus sheath hematoma and anemia >> Coumadin resumed 07/07 follow-up on INR 1.4, monitor hemoglobin * In regards to generalized debility and dysphagia patient seen by speech therapy as well as physical therapy patient was started on amiodarone and warfarin back on 06/18 due to findings of atrial fibrillation with RVR and severe mitral stenosis. Cardiology has concerns for interstitial lung disease and amiodarone has been discontinued. Patient has been started on dronedarone. * In regards to hypothyroidism continue patient on Synthyroid follow-up on TSH in 4 weeks * In regards to malnutrition patient started on Megace * Due to multiple complex medical issues, overall prognosis is guarded. PT OT is on board. * Discussed with family regarding goals of care and currently would like to continue with full code. * Patient will be reevaluated by speech pathology and also dietitian consult.
[2023-07-19 20:42] LABS: Glucose,Whole Blood 129 mg/dL (70-110)
[2023-07-20 06:26] LABS: Glucose,Whole Blood 101 mg/dL (70-110)
[2023-07-20 07:09] LABS: INR 3.7 (<1.2); Prothrombin Time 35.8 sec (10.0-12.5)
[2023-07-20 07:27] LABS: African American GFR (CKD) 83 (>60 ml/min/1.73 sqM); Anion Gap 4 mmol/L; Blood Urea Nitrogen 54 mg/dL (7-17); Calcium 8.1 mg/dL (8.4-10.2); Carbon Dioxide 22 mmol/L (22-30); Chloride 111 mmol/L (98-107); Glucose 94 mg/dL (74-99); Non-African American GFR(CKD) 72 (>60 ml/min/1.73 sqM); Sodium 137 mmol/L (137-145)
[2023-07-20 07:34] LABS: Potassium 5.1 mmol/L (3.5-5.1)
[2023-07-20 09:16] LABS: Basophils # (A) 0.08 X 10*3/uL (0.00-0.10); Basophils % (A) 0.6 %; Eosinophils # (A) 0 X 10*3/uL (0.04-0.35); Eosinophils % (A) 0 %; HCT 29.9 % (37.2-46.3); HGB 8.9 g/dL (12.0-15.0); Lymphocytes % (A) 6.5 %; MCH 30.1 pg (27.0-32.0); MCHC 29.8 g/dL (32.0-37.0); Mean Platelet Volume 10.4 FL (9.5-12.2); Monocytes # (A) 1.38 X 10*3/uL (0.20-1.00); NRBC Per 100 WBC 0.02 X 10*3/uL (0.00-0.01); Neutrophils # (A) 10.75 X 10*3/uL (1.80-7.70); Neutrophils % (A) 77.9 %; Platelet Count 259 X 10*3/uL (140-440); RBC 2.96 X 10*6/uL (4.10-5.20); RDW 19.3 % (11.5-14.5)
[2023-07-20] MEDS: FUROSEMIDE 10 MG/ML 4 ML VIAL IV SCH (09:45)
[2023-07-20 11:46] LABS: Glucose,Whole Blood 127 mg/dL (70-110)
--- NOTE | 2023-07-20 12:37 | P.PN ---
Subjective Progress Note Date: 07/20/23 Principal diagnosis: Acute on chronic hypoxic respiratory failure, multifactorial This is an 82-year-old female, familiar to my service, patient was recently in the hospital with acute COVID-19 pneumonia, congestive heart failure, atrial fibrillation with RVR, possible underlying interstitial lung disease, patient was discharged on 06/26/2023, pulmonary service has seen this patient initially on 06/09/2023, at that time the patient was admitted with acute hypoxic respiratory failure, acute COVID-19 pneumonia, chronic bronchial asthma, and possible hospital-acquired pneumonia. In addition the patient had mild intermittent asthma, congestive heart failure, severe mitral calcification and moderate to severe mitral stenosis with preserved LV function and preserved ejection fraction. She also has history of rheumatoid arthritis, hypothyroidism, and lifelong non-smoker. We saw this patient last on 06/26/2023,, she was on 2 L nasal cannula, her labs were unremarkable, her sputum cultures were nondiagnostic, blood cultures were nondiagnostic, she had relatively normal renal profile, and she was at the time on warfarin, Symbicort, Singulair and albuterol. Patient was discharged to the [facility] on [place]. Patient was discharged on amiodarone, Coumadin, prednisone 20 mg daily, Lopressor, and nystatin swish and swallow. Otherwise the patient was kept on her usual medications including Symbicort, Jardiance, levothyroxine, Singulair, Fosamax, ascorbic acid, atorvastatin, Lasix 40 mg p.o. daily, and Xanax. As well as albuterol. Patient was sent from the [facility] down to the ER today mostly because of low O2 saturation, and patient was noted to have some shortne ss of breath. Chest x-ray on this admission showed cardiomegaly and mild pulmonary vascular congestion, no clear-cut evidence of pneumonia. As a matter fact her chest x-ray shows significant improvement compared to her initial chest x-ray on her last admission. In addition to her shortness of breath, patient was noted to have abnormal labs with a potassium of 6.2, her BUN is 79 and creatinine 1.71. Patient was also noted to have elevated BNP level of 27,000 and troponin leak. ABG on 50% FiO2 showed a pO2 of 69 pCO2 48 pH of 7.54. Patient is now on 3 L nasal cannula, seems to be comfortable, not in distress. Seen by nephrology for her acute kidney injury, ATN, hyperkalemia with acute k idney injury and apparently the patient was on Bactrim and the recommendation by nephrology was to continue with IV fluids, IV antibiotics, and repeat labs in AM. Patient has a very poor urine output, I did recommend a fluid bolus of 500 cc of saline while in the ER, blood pressure is marginal. Considering her marginal low blood pressure, I am recommending that the patient goes to the ICU. Nephrology is addressing her abnormal renal profile and hyperkalemia The patient is seen today June 30, 2023 in follow-up in the emergency department. She is currently sitting up in the stretcher. Awake and alert in no acute distress. Doing quite a bit better today compared to yesterday. Tolerating a clear liquid breakfast. Maintaining O2 saturations in the upper 90s on 6 L/min per nasal cannula. She has been afebrile. Hemodynamically stable. X-ray reveals some diffuse hazy and patchy bilateral airspace disease. Blood cultures are pending. White count 19.8. Hemoglobin 8.6. Platelets 210. Sodium 135. Potassium 4.4. Bicarb 32. BUN 70. Creatinine 1.21. Glucose 149. AST 250. ALT 242. Alk phos 403. Echocardiogram reveals a hyperdynamic LV with a EF around 70%. There is severe mitral stenosis and moderate aortic stenosis. Severe pulmonary hypertension with an RVSP exceeding 50 mmHg. She is continued on DuoNeb ventilations, IV diuretics, antibiotics in the form of vanco mycin and cefepime. Procalcitonin pending. The patient is seen today July 01, 2023 in follow-up on the regular medical floor. She is currently sitting up in bed. Awake and alert in no acute distr ess. She is maintaining O2 saturations in the 90s on 6 L high flow nasal cannula. Her procalcitonin was 1.16. She remains on cefepime and vancomycin. Cultures are pending. Creatinine 1.18. Glucose 121. INR 6.4. She remains on bronchodilators, oral diuretics, anticoagulated with warfarin. The patient is seen today July 02, 2023 in follow-up on the regular medical floor. She is currently resting in bed. Awake and alert in no acute distress. She is maintaining good O2 saturations up to 100% on 6 L/min per nasal cannula. She is afebrile. Hemodynamically stable. Ultrasound of the abdomen reveals hepatic steatosis with ascites adjacent to the liver. Echogenic material within the gallbladder lumen with masslike appearance. Borderline gallbladder wall thickening. Hemoglobin 6.9. She is receiving 1 unit of packed red blood cells. Platelets 113. White count 4.7. INR 2.3. Sodium 135. Potassium 5.3. Bicarb 29. BUN 58. Creatinine 1.4. Glucose 103. She is continued on DuoNeb inhalations, cefepime and vancomycin. Remains on oral diuretics. The patient is seen today July 03, 2023 in follow-up on the regular medical floor. She is awake and alert in no acute distress. Sitting up in bed. Denies any worsening shortness of breath, cough or congestion. She is down to 2 L/min per nasal cannula. No IV fluids. She is continued on Maxipime and vancomycin. CT scan of the abdomen and pelvis reveals a left rectus hematoma. Moderate cardiomegaly. Moderate to severe diffuse opacities in the lungs could be due to edema atelectasis or infection. Chronic and likely incidental findings. X-ray of the left ankle reveals no evidence of acute fracture. Status post 1 unit of packed red blood cells this admission. Current hemoglobin 8.7. White count 4.5. Platelets 110. Sodium 130. Potassium 4.6. Bicarb 30. BUN 57. Creatinine 1.53. Glucose 87. AST 292. ALT 235. Vancomycin trough 18.0. She remains on DuoNeb inhalations. Oral diuretics. Receiving iron supplements. The patient is seen today July 04, 2023 in follow-up on the regular medical floor. He is currently sitting up in bed. Awake and alert in no acute distress. Maintaining good O2 saturations in the 90s on 2 L/min per nasal cannula. She denies any worsening shortness of breath, cough or congestion. She denies any abdominal pain. No fever or chills. White count 4.6. Hemoglobin 8.7. Platelets 123. Sodium 133. Potassium 4.4. Bicarb 26. BUN 51. Creatinine 1.3. Glucose 97. AST 211. ALT 214. Alk phos 164. Hepatobiliary scan pending. Chest x-ray reveals stable scattered airspace disease unchanged compared to previous. The patient is seen today July 05, 2023 in follow-up on the regular medical floor. She is resting comfortably in bed. Awake and alert in no acute distress. She is now on room air. No IV fluids. She remains on cefepime. Continued on bronchodilators. Continued on oral diuretics. Urine culture positive for Chaparrita. Blood cultures revealed no growth. White count 8.0. Hemoglobin 8.6. Platelets 149. Sodium 136. Potassium 4.1. Bicarb 52. Creatinine 1.4. AST 218. ALT 153. Hepatobiliary scan was within normal limits. Currently in a negative 1.6 L balance. The patient is seen today July 06, 2023 in follow-up on the regular medical floor. She is sitting up in bed. Family is at the bedside. She remains quite weak and debilitated. She is maintaining good O2 saturations in the 90s on room air. She remains on cefepime. Continued on bronchodilators. Remains on oral diuretics. White count 11.7. Hemoglobin 8.5. Platelets 167. Sodium 137. Potassium 3.4. Bicarb 26. BUN 49. Creatinine 1.1. Glucose 88. The patient is seen today July 07, 2023 in follow-up on the regular medical floor. She is awake and alert in no acute distress. She does remain very weak and debilitated. Not taking much oral intake. White count 12.0. Hemoglobin 8.8. Platelets 189. Sodium 137. Potassium 4.3. Bicarb 25. BUN 52. Cre atinine 1.2. Glucose 79. AST 135. ALT 178. She remains in a -750 mL balance. She is continued on DuoNeb inhalations. Remains on oral diuretics. Remains on cefepime. The patient is seen today July 15, 2023 in follow-up on the regular medical floor. She is currently sitting up in bed. Awake and alert in no acute distress. She remains quite weak and debilitated. Her appetite is poor. She has been being considered for a PEG tube placement. Ultrasound of the abdomen revealed a small amount of ascites in the left lower quadrant. Her hemoglobin continues to drift down currently at 7.1. 1 unit of packed red blood cells have been transfused. White count 10.1. Platelets 124. INR 1.4. Sodium 137. Potassium 5.0. Bicarb 19. BUN 63. Creatinine 1.6. Glucose 80. Remains on she is daptomycin. Continued on bronchodilators. Anticoagulated with warfarin. The patient is seen today July 16, 2023 in follow-up on the regular medical floor. She remains awake and alert in no acute distress. Maintaining O2 saturations in the 90s on 2 L/min per nasal cannula. She is on Megace attempting to improve her appetite. She remains on daptomycin. Anticoagulated with warfarin. Continued on bronchodilators. White count 10.1. Hemoglobin 8.6. Platelets 176. INR 1.6. Sodium 134. Potassium 4.8. Bicarb 19. BUN 60. Creatinine 1.31. Glucose 81. The patient is seen today July 17, 2023 in follow-up on the regular medical floor. She is sitting up in bed. Awake and alert. Maintaining good O2 saturations in the upper 90s on room air. Afebrile. Hemodynamically stable. Urine culture was positive for Chaparrita and Enterococcus gallinarum. She remains on daptomycin. White count 7.7. Hemoglobin 8.4. Platelets 178. INR 1.9. Sodium 134. Potassium 5.0. Bicarb 22. BUN 59. Creatinine 1.10. Glucose 84. She remains on Megace. Continued on bronchodilators. Anticoagulated with warfarin. The patient is seen today July 18, 2023 in follow-up on the regular medical floor. She is currently sitting up in bed. Awake and alert in no acute distress. She is maintaining good O2 saturations in the 90s on 2 L/min per nasal cannula. She is afebrile. Hemodynamically stable. She remains very weak and debilitated. She remains with a poor appetite. She remains reluctant to take any medications. Remains reluctant to work with physical therapy. Chest x-ray shows interval worsening in the patchy bilateral airspace disease. She is status post 2 units of packed red blood cells this admission. Most recent hemoglobin 8.4. INR 2.6 today. Sodium 135. Potassium 5.5. Bicarb 19. BUN 53. Creatinine 1.1. Glucose 95. She is continued on bronchodilators. Remains on warfarin. The patient is seen today July 19, 2023 in follow-up on the regular medical floor. She continues to rest fairly comfortably in bed. Awake and alert. She is maintaining good O2 saturations in the 90s on 4 L/min per nasal cannula. She is afebrile. Hemodynamically stable. She is status post 2 units of packed red blood cells this admission. Current hemoglobin 8.5. Platelets 259. Count 12. 1. Sodium 138. Potassium 5.1. Bicarb 21. BUN 51. Creatinine 1.0. Glucose 85. Is anticoagulated with warfarin. Continued on bronchodilators. Antibiotics in the form of daptomycin. Patient was reevaluated today on , basically about the same, not in any distress, on 2 L nasal cannula O2 sats of 93%, patient does sound wet on physical examination, hence I wrote for more Lasix to be given today, and I am recommending Lasix 40 mg IV push twice daily. WBC count today is 13.8 hemoglo bin 8.9 INR is 3.7 basic metabolic profile is normal BUN is 54 creatinine 0.78 Objective - Vital Signs Vital signs: Vital Signs Temp 97.3 F L 07/20/23 07:16 Pulse 80 07/20/23 07:16 Resp 18 07/20/23 07:16 BP 91/85 07/20/23 07:16 Pulse Ox 93 L 07/20/23 08:21 FiO2 21 07/05/23 07:54 Intake & Output 07/19/23 07/20/23 07/20/23 18:59 06:59 18:59 Output Total 550 Balance -550 Weight 60 kg Output: Urine 550 Other: Voiding Method Indwelling Catheter Indwelling Catheter Indwelling Catheter # Bowel Movements 1 - Exam GENERAL EXAM: Alert, weak, on 2 L nasal cannula HEAD: Normocephalic. EYES: Normal reaction of pupils, equal size. NOSE: Clear with pink turbinates. THROAT: No erythema or exudates. NECK: No masses, no JVD. CHEST: No chest wall deformity. LUNGS: Crackles and rhonchi noted bilaterally. CVS: S1 and S2 normal with no audible murmur, regular rhythm. ABDOMEN: No hepatosplenomegaly, normal bowel sounds, no guarding or rigidity. CENTRAL NERVOUS SYSTEM: Patient is noted to be a bit more lethargic today compared to baseline. No focal deficits, tone is normal in all 4 extremities. EXTREMITIES: There is trace of bipedal edema, no cyanosis. - Labs CBC & Chem 7: 07/20/23 06:14 07/20/23 05:59 Labs: Abnormal Lab Results - Last 24 Hours (Table) 07/19/23 07/19/23 07/19/23 Range/Units 14:25 16:22 20:41 WBC (4.50-10.00) X 10*3/uL RBC (4.10-5.20) X 10*6/uL Hgb (12.0-15.0) g/dL Hct (37.2-46.3) % MCV (80.0-97.0) FL MCHC (32.0-37.0) g/dL RDW (11.5-14.5) % Immature Gran # (0.00-0.04) X 10*3/uL Neutrophils # (1.80-7.70) X 10*3/uL Monocytes # (0.20-1.00) X 10*3/uL Eosinophils # (0.04-0.35) X 10*3/uL NRBC/100 WBC Diff (0.00-0.01) X 10*3/uL PT 38.0 H (10.0-12.5) sec INR 3.9 H (<1.2) Chloride (98-107) mmol/L BUN (7-17) mg/dL POC Glucose (mg/dL) 186 H 129 H (70-110) mg/dL Calcium (8.4-10.2) mg/dL 07/20/23 07/20/23 07/20/23 Range/Units 05:59 05:59 06:14 WBC 13.80 H (4.50-10.00) X 10*3/uL RBC 2.96 L (4.10-5.20) X 10*6/uL Hgb 8.9 L (12.0-15.0) g/dL Hct 29.9 L (37.2-46.3) % MCV 101.0 H (80.0-97.0) FL MCHC 29.8 L (32.0-37.0) g/dL RDW 19.3 H (11.5-14.5) % Immature Gran # 0.69 H (0.00-0.04) X 10*3/uL Neutrophils # 10.75 H (1.80-7.70) X 10*3/uL Monocytes # 1.38 H (0.20-1.00) X 10*3/uL Eosinophils # 0 L (0.04-0.35) X 10*3/uL NRBC/100 WBC Diff 0.02 H (0.00-0.01) X 10*3/uL PT 35.8 H (10.0-12.5) sec INR 3.7 H (<1.2) Chloride 111 H (98-107) mmol/L BUN 54 H (7-17) mg/dL POC Glucose (mg/dL) (70-110) mg/dL Calcium 8.1 L (8.4-10.2) mg/dL 07/20/23 Range/Units 11:44 WBC (4.50-10.00) X 10*3/uL RBC (4.10-5.20) X 10*6/uL Hgb (12.0-15.0) g/dL Hct (37.2-46.3) % MCV (80.0-97.0) FL MCHC (32.0-37.0) g/dL RDW (11.5-14.5) % Immature Gran # (0.00-0.04) X 10*3/uL Neutrophils # (1.80-7.70) X 10*3/uL Monocytes # (0.20-1.00) X 10*3/uL Eosinophils # (0.04-0.35) X 10*3/uL NRBC/100 WBC Diff (0.00-0.01) X 10*3/uL PT (10.0-12.5) sec INR (<1.2) Chloride (98-107) mmol/L BUN (7-17) mg/dL POC Glucose (mg/dL) 127 H (70-110) mg/dL Calcium (8.4-10.2) mg/dL Assessment and Plan Assessment: Impression: Acute on chronic hypoxic respiratory failure, multifactorial Acute on chronic congestive heart failure with preserved ejection fraction History of COVID-19 pneumonia and healthcare acquired pneumonia, patient was treated with remdesivir on the last admission History of rheumatoid arthritis and possibly some component of interstitial lung disease Severe mitral valve disease with severe mitral stenosis, and mild aortic regurgitation and stenosis. But the patient has relatively maintained ejection fraction. History of rheumatoid arthritis Hypothyroidism Lifelong non-smoker Mild intermittent asthma Acute kidney injury/ATN Acute hyperkalemia secondary to acute kidney injury, patient had recent treatment with Bactrim for a UTI. Pyuria, UTI, possible sepsis from urinary tract infection Recommendation: Continue oxygen and titrate accordingly Continue present supportive care measures Continue diuretics, placed on Lasix 40 mg IV push twice daily Continue bronchodilators Still recommend consider hospice care. Patient is basically failure to thrive. Patient has been in the hospital now for over a month. Overall prognosis extremely poor. Time with Patient: Less than 30
--- NOTE | 2023-07-20 13:23 | P.PN ---
Subjective Progress Note Date: 07/20/23 Patient is seen in follow-up for acute kidney injury. Renal function improved. Oral intake poor. Nonoliguric. Vital signs - blood pressure on the lower side. General: No acute distress. HEENT: Head exam is unremarkable. LUNGS: No audible rhonchi or wheezes. HEART: Rate and Rhythm are regular. ABDOMEN: Nontender. EXTREMITITES: 2+ edema. Objective - Vital Signs Vital signs: Vital Signs Temp 97.3 F L 07/20/23 07:16 Pulse 80 07/20/23 07:16 Resp 18 07/20/23 07:16 BP 91/85 07/20/23 07:16 Pulse Ox 93 L 07/20/23 08:21 FiO2 21 07/05/23 07:54 Intake & Output 07/19/23 07/20/23 07/20/23 18:59 06:59 18:59 Output Total 550 Balance -550 Weight 60 kg Output: Urine 550 Other: Voiding Method Indwelling Catheter Indwelling Catheter Indwelling Catheter # Bowel Movements 1 - Labs CBC & Chem 7: 07/20/23 06:14 07/20/23 05:59 Labs: Abnormal Lab Results - Last 24 Hours (Table) 07/19/23 07/19/23 07/19/23 Range/Units 07:04 07:04 11:39 WBC (4.50-10.00) X 10*3/uL RBC (4.10-5.20) X 10*6/uL Hgb (12.0-15.0) g/dL Hct (37.2-46.3) % MCV (80.0-97.0) FL MCHC (32.0-37.0) g/dL RDW (11.5-14.5) % Immature Gran # 0.61 H (0.00-0.04) X 10*3/uL Neutrophils # 9.02 H (1.80-7.70) X 10*3/uL Monocytes # 1.42 H (0.20-1.00) X 10*3/uL Eosinophils # 0.01 L (0.04-0.35) X 10*3/uL NRBC/100 WBC Diff (0.00-0.01) X 10*3/uL PT (10.0-12.5) sec INR (<1.2) Chloride (98-107) mmol/L Carbon Dioxide 21.1 L (21.6-31.8) mmol/L BUN 50.7 H (9.0-27.0) mg/dL Est GFR (CKD-EPI) 57 L (>=60) BUN/Creatinine Ratio 50.70 H (12.00-20.00) Ratio POC Glucose (mg/dL) 155 H (70-110) mg/dL Calcium 7.8 L (8.7-10.3) mg/dL Total Protein 4.7 L (6.2-8.2) g/dL Albumin 1.8 L (3.8-4.9) g/dL Albumin/Globulin Ratio 0.62 L (1.60-3.17) Ratio 07/19/23 07/19/23 07/19/23 Range/Units 14:25 16:22 20:41 WBC (4.50-10.00) X 10*3/uL RBC (4.10-5.20) X 10*6/uL Hgb (12.0-15.0) g/dL Hct (37.2-46.3) % MCV (80.0-97.0) FL MCHC (32.0-37.0) g/dL RDW (11.5-14.5) % Immature Gran # (0.00-0.04) X 10*3/uL Neutrophils # (1.80-7.70) X 10*3/uL Monocytes # (0.20-1.00) X 10*3/uL Eosinophils # (0.04-0.35) X 10*3/uL NRBC/100 WBC Diff (0.00-0.01) X 10*3/uL PT 38.0 H (10.0-12.5) sec INR 3.9 H (<1.2) Chloride (98-107) mmol/L Carbon Dioxide (21.6-31.8) mmol/L BUN (9.0-27.0) mg/dL Est GFR (CKD-EPI) (>=60) BUN/Creatinine Ratio (12.00-20.00) Ratio POC Glucose (mg/dL) 186 H 129 H (70-110) mg/dL Calcium (8.7-10.3) mg/dL Total Protein (6.2-8.2) g/dL Albumin (3.8-4.9) g/dL Albumin/Globulin Ratio (1.60-3.17) Ratio 07/20/23 07/20/23 07/20/23 Range/Units 05:59 05:59 06:14 WBC 13.80 H (4.50-10.00) X 10*3/uL RBC 2.96 L (4.10-5.20) X 10*6/uL Hgb 8.9 L (12.0-15.0) g/dL Hct 29.9 L (37.2-46.3) % MCV 101.0 H (80.0-97.0) FL MCHC 29.8 L (32.0-37.0) g/dL RDW 19.3 H (11.5-14.5) % Immature Gran # 0.69 H (0.00-0.04) X 10*3/uL Neutrophils # 10.75 H (1.80-7.70) X 10*3/uL Monocytes # 1.38 H (0.20-1.00) X 10*3/uL Eosinophils # 0 L (0.04-0.35) X 10*3/uL NRBC/100 WBC Diff 0.02 H (0.00-0.01) X 10*3/uL PT 35.8 H (10.0-12.5) sec INR 3.7 H (<1.2) Chloride 111 H (98-107) mmol/L Carbon Dioxide (21.6-31.8) mmol/L BUN 54 H (9.0-27.0) mg/dL Est GFR (CKD-EPI) (>=60) BUN/Creatinine Ratio (12.00-20.00) Ratio POC Glucose (mg/dL) (70-110) mg/dL Calcium 8.1 L (8.7-10.3) mg/dL Total Protein (6.2-8.2) g/dL Albumin (3.8-4.9) g/dL Albumin/Globulin Ratio (1.60-3.17) Ratio Assessment and Plan Plan: Assessment: 1. Acute kidney injury secondary to ATN secondary to severe sepsis. Was also on Bactrim prior to admission. No hydronephrosis noted on kidney ultrasound/CT. Renal function improved. Creatinine 1.0. Nonoliguric. 2. Chronic diastolic CHF with severe pulmonary hypertension, mild to moderate aortic stenosis, moderate aortic regurgitation, severe mitral stenosis. 3. Hyperkalemia secondary to acute kidney injury on Bactrim. Potassium level 5.5 today. 4. Edema. Partially third spacing from hypoalbuminemia. 5. Acute blood loss anemia. Status post blood transfusion this admission. Also received IV iron. On Aranesp. Defer blood transfusions to primary team and surgery. 6. Hyponatremia from poor solute intake. Hypervolemic. Stable. 7. Acute COVID infection. 8. Left abdominal rectus sheath hematoma. Surgery following. 9. Protein calorie malnutrition with albumin level of 2.0. s/p IV albumin 07/12/23. 10. Urinary retention. Caldwell catheter had to be reinserted. On Flomax. 11. Metabolic acidosis secondary to acute kidney injury. On oral bicarb. Better. Plan: Continue IV Lasix for edema. Maintain 1500 cc fluid restriction. Avoid nephrotoxins. Continue to monitor renal function and urine output. Maintain midodrine. Hold for systolic blood pressure greater than 110. A.m. cortisol level not low. Conservative measures. Family considering comfort measures as well.
--- NOTE | 2023-07-20 13:56 | P.PN ---
Subjective Progress Note Date: 07/20/23 Principal diagnosis: Reason for follow-up is sepsis UTI/pneumonia Patient is a 82-year-old female with a past medical history significant for hypertension hyperlipidemia mitral valve prolapse rheumatoid arthritis heart failure patient has been brought into the hospital for evaluation of increasing shortness of breath patient was initially admitted to the ICU concerning for sepsis secondary to possible pneumonia/UTI versus hepatobiliary source. On today's evaluation that is 07/20/2023, the patient continues to be afebrile, the patient is on 4 L nasal cannula oxygen and breathing comfortably, the Pt denies having any chest pain or cough, the patient denies having any abdominal pain no vomiting or any worsening diarrhea has been reported by the nursing staff. Patient white count 13.80, creatinine 0.78 Objective - Vital Signs Vital signs: Vital Signs Temp 97.3 F L 07/20/23 07:16 Pulse 80 07/20/23 07:16 Resp 18 07/20/23 07:16 BP 91/85 07/20/23 07:16 Pulse Ox 93 L 07/20/23 08:21 FiO2 21 07/05/23 07:54 Intake & Output 07/19/23 07/20/23 07/20/23 18:59 06:59 18:59 Output Total 550 Balance -550 Weight 60 kg Output: Urine 550 Other: Voiding Method Indwelling Catheter Indwelling Catheter Indwelling Catheter # Bowel Movements 1 - Exam GENERAL DESCRIPTION: An elderly female lying in bed in no distress RESPIRATORY SYSTEM: Unlabored breathing , decreased breath sounds at bases HEART: S1 S2 regular rate and rhythm , ABDOMEN: Soft , mild distention but no tenderness EXTREMITIES: No edema feet Patient did have a stage II pressure ulcer to the right gluteal and sacral area has more necrotic tissue on today's evaluation - Labs CBC & Chem 7: 07/20/23 06:14 07/20/23 05:59 Labs: Abnormal Lab Results - Last 24 Hours (Table) 07/19/23 07/19/23 07/19/23 Range/Units 07:04 07:04 11:39 WBC 12.16 H (4.50-10.00) X 10*3/uL RBC 2.82 L (4.10-5.20) X 10*6/uL Hgb 8.5 L (12.0-15.0) g/dL Hct 27.4 L (37.2-46.3) % MCV 97.2 H (80.0-97.0) FL MCHC 31.0 L (32.0-37.0) g/dL RDW 19.0 H (11.5-14.5) % Immature Gran # 0.61 H (0.00-0.04) X 10*3/uL Neutrophils # 9.02 H (1.80-7.70) X 10*3/uL Monocytes # 1.42 H (0.20-1.00) X 10*3/uL Eosinophils # 0.01 L (0.04-0.35) X 10*3/uL PT (10.0-12.5) sec INR (<1.2) Chloride (98-107) mmol/L Carbon Dioxide 21.1 L (21.6-31.8) mmol/L BUN 50.7 H (9.0-27.0) mg/dL Est GFR (CKD-EPI) 57 L (>=60) BUN/Creatinine Ratio 50.70 H (12.00-20.00) Ratio POC Glucose (mg/dL) 155 H (70-110) mg/dL Calcium 7.8 L (8.7-10.3) mg/dL Total Protein 4.7 L (6.2-8.2) g/dL Albumin 1.8 L (3.8-4.9) g/dL Albumin/Globulin Ratio 0.62 L (1.60-3.17) Ratio 07/19/23 07/19/23 07/19/23 Range/Units 14:25 16:22 20:41 WBC (4.50-10.00) X 10*3/uL RBC (4.10-5.20) X 10*6/uL Hgb (12.0-15.0) g/dL Hct (37.2-46.3) % MCV (80.0-97.0) FL MCHC (32.0-37.0) g/dL RDW (11.5-14.5) % Immature Gran # (0.00-0.04) X 10*3/uL Neutrophils # (1.80-7.70) X 10*3/uL Monocytes # (0.20-1.00) X 10*3/uL Eosinophils # (0.04-0.35) X 10*3/uL PT 38.0 H (10.0-12.5) sec INR 3.9 H (<1.2) Chloride (98-107) mmol/L Carbon Dioxide (21.6-31.8) mmol/L BUN (9.0-27.0) mg/dL Est GFR (CKD-EPI) (>=60) BUN/Creatinine Ratio (12.00-20.00) Ratio POC Glucose (mg/dL) 186 H 129 H (70-110) mg/dL Calcium (8.7-10.3) mg/dL Total Protein (6.2-8.2) g/dL Albumin (3.8-4.9) g/dL Albumin/Globulin Ratio (1.60-3.17) Ratio 07/20/23 07/20/23 Range/Units 05:59 05:59 WBC (4.50-10.00) X 10*3/uL RBC (4.10-5.20) X 10*6/uL Hgb (12.0-15.0) g/dL Hct (37.2-46.3) % MCV (80.0-97.0) FL MCHC (32.0-37.0) g/dL RDW (11.5-14.5) % Immature Gran # (0.00-0.04) X 10*3/uL Neutrophils # (1.80-7.70) X 10*3/uL Monocytes # (0.20-1.00) X 10*3/uL Eosinophils # (0.04-0.35) X 10*3/uL PT 35.8 H (10.0-12.5) sec INR 3.7 H (<1.2) Chloride 111 H (98-107) mmol/L Carbon Dioxide (21.6-31.8) mmol/L BUN 54 H (9.0-27.0) mg/dL Est GFR (CKD-EPI) (>=60) BUN/Creatinine Ratio (12.00-20.00) Ratio POC Glucose (mg/dL) (70-110) mg/dL Calcium 8.1 L (8.7-10.3) mg/dL Total Protein (6.2-8.2) g/dL Albumin (3.8-4.9) g/dL Albumin/Globulin Ratio (1.60-3.17) Ratio Assessment and Plan (1) UTI (urinary tract infection) Current Visit: Yes Status: Acute Code(s): N39.0 - URINARY TRACT INFECTION, SITE NOT SPECIFIED SNOMED Code(s): 90487853 (2) Elevated liver enzymes Current Visit: Yes Status: Acute Code(s): R74.8 - ABNORMAL LEVELS OF OTHER SERUM ENZYMES SNOMED Code(s): 090292013 (3) Pneumonia Current Visit: Yes Status: Acute Code(s): J18.9 - PNEUMONIA, UNSPECIFIED ORGANISM SNOMED Code(s): 248185840 (4) Leukocytosis Current Visit: No Status: Acute Code(s): D72.829 - ELEVATED WHITE BLOOD CELL COUNT, UNSPECIFIED SNOMED Code(s): 697189176 (5) Diarrhea Current Visit: Yes Status: Acute Code(s): R19.7 - DIARRHEA, UNSPECIFIED SNOMED Code(s): 31766615 Plan: 1-patient did have a stage II sacral pressure ulcer to the right gluteal and sacral area [facility] by moist dressing keep the area of the pressure 2-patient with leukocytosis which is likely related to catheter assisted UTI with urine culture currently growing Chaparrita unfortunately we are not able to use Diflucan because of her cardiac medication also grew VRE 3-patient is currently covered with the daptomycin for VRE urinary tract infection to continue, patient noted to have slight worsening of her sacral pressure ulcer surgical debridement has been discussed with the family however did not want to put the patient through any surgical procedure also considering hospice which may be appropriate for her if that is the case antibiotics can be safely discontinued and will hold on adding any further workup at this point Dictation was produced using [employer] dictation software. please excuse any grammatical, word or spelling errors. Time with Patient: Less than 30
[2023-07-20 15:18] VITALS: BP 89/53; PULSE 61; TEMP 97.8
--- NOTE | 2023-07-20 17:31 | P.PN ---
Subjective Progress Note Date: 07/20/23 82-year-old lady with past medical history significant for congestive heart failure, atrial fibrillation with RVR,presented to the ER because of worsening shortness of breath. Patient was only recently discharged on 06/25 after being treated in the hospital for similar complaints.after discharge, patient was all right for 1 day but started noticing that she was getting more short of breath on exertion. Patient denied any chest pain. There was no complain of orthopnea or PND. There was no complain of swelling of feet. There was no complain of fever or chills. Patient oxygen requirements were also increasing so she was transferred back to the ER Initial lab work done in the ER showed WBC 28, hemoglobin 10.5, platelet count 332, INR 3.7, sodium 138, potassium 6.2, BUN 79, creatinine1.71, AST 378, ALT 350, troponin 0.247 EKG done in the ER showed heart rate of 81 , no ST segment elevation or depression seen, no T-wave inversions seen. Chest x-ray done in the ER showed cardiomegaly and moderate vascular congestion Patient admitted to internal medicine service 07/20/2023 Patient is seen and evaluated with family at bedside; the same, not in any distress, on 2 L nasal cannula O2 sats of 93% patient is fluid overloaded today and has been placed on Lasix 40 mg IV twice daily by pulmonary service WBC count today is 13.8 hemoglobin 8.9 INR is 3.7 basic metabolic profile is normal BUN is 54 creatinine 0.78 --Family has decided to proceed with an informational visit with hospice care Objective - Vital Signs Vital signs: Vital Signs Temp 97.3 F L 07/20/23 07:16 Pulse 80 07/20/23 07:16 Resp 18 07/20/23 07:16 BP 91/85 07/20/23 07:16 Pulse Ox 93 L 07/20/23 08:21 FiO2 21 07/05/23 07:54 Intake & Output 07/19/23 07/20/23 07/20/23 18:59 06:59 18:59 Output Total 550 Balance -550 Weight 60 kg Output: Urine 550 Other: Voiding Method Indwelling Catheter Indwelling Catheter Indwelling Catheter # Bowel Movements 1 - Exam HEENT: Normocephalic. Neck is supple. Pupils reactive. Nostrils clear. Oral cavity is moist. Neck reveals no JVD, carotid bruits, or thyromegaly. CHEST EXAMINATION: Trachea is central. Symmetrical expansion. Bibasilar diminished sounds. No wheezing or rhonchi.. CARDIAC: Normal S1, S2 with no gallops. No murmurs ABDOMEN: Soft. Bowel sounds normal. No organomegaly. No abdominal bruits. Extremities: reveal no edema. No clubbing or cyanosis Neurologically awake, alert, oriented x 1-2 able to move all extremities. No gross focal deficits noted Skin: No rash or skin lesions. Psychiatric: Coperative. Could not be assessed completely Musculoskeletal: No joint swelling or deformity. - Labs CBC & Chem 7: 07/20/23 06:14 07/20/23 05:59 Labs: Abnormal Lab Results - Last 24 Hours (Table) 07/19/23 07/19/23 07/19/23 Range/Units 11:39 14:25 16:22 WBC (4.50-10.00) X 10*3/uL RBC (4.10-5.20) X 10*6/uL Hgb (12.0-15.0) g/dL Hct (37.2-46.3) % MCV (80.0-97.0) FL MCHC (32.0-37.0) g/dL RDW (11.5-14.5) % Immature Gran # (0.00-0.04) X 10*3/uL Neutrophils # (1.80-7.70) X 10*3/uL Monocytes # (0.20-1.00) X 10*3/uL Eosinophils # (0.04-0.35) X 10*3/uL NRBC/100 WBC Diff (0.00-0.01) X 10*3/uL PT 38.0 H (10.0-12.5) sec INR 3.9 H (<1.2) Chloride (98-107) mmol/L BUN (7-17) mg/dL POC Glucose (mg/dL) 155 H 186 H (70-110) mg/dL Calcium (8.4-10.2) mg/dL 07/19/23 07/20/23 07/20/23 Range/Units 20:41 05:59 05:59 WBC (4.50-10.00) X 10*3/uL RBC (4.10-5.20) X 10*6/uL Hgb (12.0-15.0) g/dL Hct (37.2-46.3) % MCV (80.0-97.0) FL MCHC (32.0-37.0) g/dL RDW (11.5-14.5) % Immature Gran # (0.00-0.04) X 10*3/uL Neutrophils # (1.80-7.70) X 10*3/uL Monocytes # (0.20-1.00) X 10*3/uL Eosinophils # (0.04-0.35) X 10*3/uL NRBC/100 WBC Diff (0.00-0.01) X 10*3/uL PT 35.8 H (10.0-12.5) sec INR 3.7 H (<1.2) Chloride 111 H (98-107) mmol/L BUN 54 H (7-17) mg/dL POC Glucose (mg/dL) 129 H (70-110) mg/dL Calcium 8.1 L (8.4-10.2) mg/dL 07/20/23 Range/Units 06:14 WBC 13.80 H (4.50-10.00) X 10*3/uL RBC 2.96 L (4.10-5.20) X 10*6/uL Hgb 8.9 L (12.0-15.0) g/dL Hct 29.9 L (37.2-46.3) % MCV 101.0 H (80.0-97.0) FL MCHC 29.8 L (32.0-37.0) g/dL RDW 19.3 H (11.5-14.5) % Immature Gran # 0.69 H (0.00-0.04) X 10*3/uL Neutrophils # 10.75 H (1.80-7.70) X 10*3/uL Monocytes # 1.38 H (0.20-1.00) X 10*3/uL Eosinophils # 0 L (0.04-0.35) X 10*3/uL NRBC/100 WBC Diff 0.02 H (0.00-0.01) X 10*3/uL PT (10.0-12.5) sec INR (<1.2) Chloride (98-107) mmol/L BUN (7-17) mg/dL POC Glucose (mg/dL) (70-110) mg/dL Calcium (8.4-10.2) mg/dL Assessment and Plan Assessment: * Left abdominal rectus sheath hematoma improved. Hemoglobin is fairly stable. * Acute on chronic diastolic heart failure; Moderate to severe mitral calcification, moderate to severe mitral stenosis, mild aortic regurgitation and stenosis, Severe Pulmonary hypertension WHO class II. * Acute hypoxic respiratory failure due to asthma exacerbation; was requiring 6L and has weaned to 2 L. * Non-ST elevation IL * Hyperkalemia RESOLVED * Anemia iron deficient with acute blood loss anemia from the left rectus sheath hematoma * Acute transaminitis with concern for acute cholecystitis, HIDA scan normal. Not a surgical candidate at this time. * Urinary tract infection with VRE * Acute kidney injury due to ATN severe sepsis. Improving. * Recent hospitalization for COVID in May, PCR still positive; not in active infection. * Supratherapeutic INR on admission while on Coumadin * Paroxysmal atrial fibrillation * History of coronary artery disease with previous PCI/stent x3 * History of hyperlipidemia * History of hypertension * Rheumatoid arthritis * Hypothyroidism. Started back on levothyroxine. * Mild protein calorie malnutrition * Stage 2 pressure injury on right and left buttock present on admission * Sacral decubitus ulcer, unstageable present on admission. * Lifelong non-smoker Plan * In regards to atrial fibrillation patient was started on amiodarone and Coumadin however amiodarone was discontinued and patient was transition to dronedarone , continue telemonitoring * In regards to [id number] continue patient on midodrine for blood pressure support, Lasix placed on hold on 07/13 due to hypotension * In regards to urinary tract infection and pneumonia , was on cefepime, completed antibiotic course, already started on daptomycin by infectious disease secondary to VRE * In regards to anemia patient given IV iron replacement , received 1 unit of packed RBC earlier in hospitalization second unit ordered on 07/15/2023 * In regards to rectus sheath hematoma and anemia >> Coumadin resumed 07/07 follow-up on INR 1.4, monitor hemoglobin * In regards to generalized debility and dysphagia patient seen by speech therapy as well as physical therapy patient was started on amiodarone and warfarin back on 06/18 due to findings of atrial fibrillation with RVR and severe mitral stenosis. Cardiology has concerns for interstitial lung disease and amiodarone has been discontinued. Patient has been started on dronedarone. * In regards to hypothyroidism continue patient on Synthyroid follow-up on TSH in 4 weeks * In regards to malnutrition patient started on Megace * Due to multiple complex medical issues, overall prognosis is guarded. PT OT is on board. * Discussed with family regarding goals of care and currently would like to continue with full code. * Patient will be reevaluated by speech pathology and also dietitian consult.
[2023-07-20] MEDS: WARFARIN 0.5 MG TAB PO ONE (17:41)
--- NOTE | 2023-07-20 23:02 | P.PN ---
Subjective Patient seen and evaluated at bedside. No acute events overnight, no new complaints. Objective - Vital Signs Vital signs: Vital Signs Temp 97.8 F 07/20/23 14:14 Pulse 61 07/20/23 14:14 Resp 19 07/20/23 14:14 BP 89/53 07/20/23 14:14 Pulse Ox 91 L 07/20/23 14:14 FiO2 21 07/05/23 07:54 Intake & Output 07/20/23 07/20/23 07/21/23 06:59 18:59 06:59 Intake Total 50 Balance 50 Intake: Intake, IV Titration 50 Amount DAPTOmycin 225 mg In 50 Sodium Chloride 0.9% 50 ml @ 100 mls/hr IVPB Q24H [facility] Rx#:[id number] Other: Voiding Method Indwelling Catheter Indwelling Catheter Indwelling Catheter - Constitutional Constitutional Comment(s): PHYSICAL EXAM: VITAL SIGNS: Reviewed. GENERAL: no acute distress. ABDOMEN: Soft. Nondistended. - Labs CBC & Chem 7: 07/20/23 06:14 07/20/23 05:59 Labs: Abnormal Lab Results - Last 24 Hours (Table) 07/20/23 07/20/23 07/20/23 Range/Units 05:59 05:59 06:14 WBC 13.80 H (4.50-10.00) X 10*3/uL RBC 2.96 L (4.10-5.20) X 10*6/uL Hgb 8.9 L (12.0-15.0) g/dL Hct 29.9 L (37.2-46.3) % MCV 101.0 H (80.0-97.0) FL MCHC 29.8 L (32.0-37.0) g/dL RDW 19.3 H (11.5-14.5) % Immature Gran # 0.69 H (0.00-0.04) X 10*3/uL Neutrophils # 10.75 H (1.80-7.70) X 10*3/uL Monocytes # 1.38 H (0.20-1.00) X 10*3/uL Eosinophils # 0 L (0.04-0.35) X 10*3/uL NRBC/100 WBC Diff 0.02 H (0.00-0.01) X 10*3/uL PT 35.8 H (10.0-12.5) sec INR 3.7 H (<1.2) Chloride 111 H (98-107) mmol/L BUN 54 H (7-17) mg/dL POC Glucose (mg/dL) (70-110) mg/dL Calcium 8.1 L (8.4-10.2) mg/dL 07/20/23 Range/Units 11:44 WBC (4.50-10.00) X 10*3/uL RBC (4.10-5.20) X 10*6/uL Hgb (12.0-15.0) g/dL Hct (37.2-46.3) % MCV (80.0-97.0) FL MCHC (32.0-37.0) g/dL RDW (11.5-14.5) % Immature Gran # (0.00-0.04) X 10*3/uL Neutrophils # (1.80-7.70) X 10*3/uL Monocytes # (0.20-1.00) X 10*3/uL Eosinophils # (0.04-0.35) X 10*3/uL NRBC/100 WBC Diff (0.00-0.01) X 10*3/uL PT (10.0-12.5) sec INR (<1.2) Chloride (98-107) mmol/L BUN (7-17) mg/dL POC Glucose (mg/dL) 127 H (70-110) mg/dL Calcium (8.4-10.2) mg/dL Assessment and Plan Assessment: ASSESSMENT: 1. Acute cholecystitis. Echogenic material within the gallbladder lumen with masslike appearance and borderline gallbladder wall thickening noted on ultrasou nd 2. Elevated LFTs 3. Left abdominal rectus sheath hematoma with Coumadin toxicity present on adm ission 4. Acute blood loss anemia due to rectus sheath hematoma requiring blood transfusion 5. Sacral decubitus ulcer and ulceration posterior left upper thigh PLAN: -Patient is a poor surgical candidate. No surgical intervention planned. Patient reports no abdominal pain. cold compress and abdominal binder if eveidence of expansion family is seeking hospice Time with Patient: Greater than 30
[2023-07-21] MEDS ORDERED: ATROPINE OPHTH SOLN 1% 5ML BTL SUBLINGUAL PRN (09:31)
[2023-07-21] MEDS ORDERED: LORazepam 2 MG/ML INJ IV PRN (09:31)
[2023-07-21] MEDS ORDERED: DRY MOUTH SPRAY 44.3 SPRAY/44.3 ML SPRAY MUCOUS MEM PRN (09:31)
[2023-07-21] MEDS: MORPHINE SULFATE (100 MG/2 ML) 100 MG in SODIUM CHLORIDE 0.9% 100 ML IV SCH (10:17)
--- NOTE | 2023-07-21 11:34 | P.PN ---
Subjective Progress Note Date: 07/21/23 patient remains clinically unchanged. The family is possibly place an outpatient hospice. On exam vital signs are stable. Abdomen soft. History of acute cholecystitis. Patient will continue to izzy management medically. Objective - Vital Signs Vital signs: Vital Signs Temp 97.8 F 07/20/23 14:14 Pulse 61 07/20/23 14:14 Resp 26 H 07/21/23 11:11 BP 89/53 07/20/23 14:14 Pulse Ox 91 L 07/20/23 14:14 FiO2 21 07/05/23 07:54 Intake & Output 07/20/23 07/21/23 07/21/23 18:59 06:59 18:59 Intake Total 50 2.805 Balance 50 2.805 Intake: Intake, IV Titration 50 2.805 Amount DAPTOmycin 225 mg In 50 Sodium Chloride 0.9% 50 ml @ 100 mls/hr IVPB Q24H [facility] Rx#:[id number] Morphine Sulfate (100 mg/ 2.805 2 ml) 100 mg In Sodium Chloride 0.9% 100 ml @ 1 MG/HR 1.02 mls/hr IV . Q24H [facility] Rx#:[id number] Other: Voiding Method Indwelling Catheter Indwelling Catheter # Bowel Movements 1 - Labs CBC & Chem 7: 07/20/23 06:14 07/20/23 05:59 Labs: Abnormal Lab Results - Last 24 Hours (Table) 07/20/23 Range/Units 11:44 POC Glucose (mg/dL) 127 H (70-110) mg/dL
[2023-07-21 11:43] VITALS: RESP 26
[2023-07-21] MEDS: SCOPOLAMINE 1 MG/72 HR PATCH TRANSDERM SCH (11:56)
--- NOTE | 2023-07-21 12:02 | P.PN ---
Subjective Progress Note Date: 07/21/23 Patient is seen in follow-up for acute kidney injury. Renal function improved. Oral intake poor. Nonoliguric. Vital signs - blood pressure on the lower side. General: No acute distress. HEENT: Head exam is unremarkable. LUNGS: No audible rhonchi or wheezes. HEART: Rate and Rhythm are regular. ABDOMEN: Nontender. EXTREMITITES: 2+ edema. Objective - Vital Signs Vital signs: Vital Signs Temp 97.8 F 07/20/23 14:14 Pulse 61 07/20/23 14:14 Resp 19 07/20/23 14:14 BP 89/53 07/20/23 14:14 Pulse Ox 91 L 07/20/23 14:14 FiO2 21 07/05/23 07:54 Intake & Output 07/20/23 07/21/23 07/21/23 18:59 06:59 18:59 Intake Total 50 Balance 50 Intake: Intake, IV Titration 50 Amount DAPTOmycin 225 mg In 50 Sodium Chloride 0.9% 50 ml @ 100 mls/hr IVPB Q24H [facility] Rx#:[id number] Other: Voiding Method Indwelling Catheter Indwelling Catheter # Bowel Movements 1 - Labs CBC & Chem 7: 07/20/23 06:14 07/20/23 05:59 Labs: Abnormal Lab Results - Last 24 Hours (Table) 07/20/23 Range/Units 11:44 POC Glucose (mg/dL) 127 H (70-110) mg/dL Assessment and Plan Plan: Assessment: 1. Acute kidney injury secondary to ATN secondary to severe sepsis. Was also on Bactrim prior to admission. No hydronephrosis noted on kidney ultrasound/CT. Renal function improved. Creatinine 1.0. Nonoliguric. 2. Chronic diastolic CHF with severe pulmonary hypertension, mild to moderate aortic stenosis, moderate aortic regurgitation, severe mitral stenosis. 3. Hyperkalemia secondary to acute kidney injury on Bactrim. Potassium level 5.5 today. 4. Edema. Partially third spacing from hypoalbuminemia. 5. Acute blood loss anemia. Status post blood transfusion this admission. Also received IV iron. On Aranesp. Defer blood transfusions to primary team and surgery. 6. Hyponatremia from poor solute intake. Hypervolemic. Stable. 7. Acute COVID infection. 8. Left abdominal rectus sheath hematoma. Surgery following. 9. Protein calorie malnutrition with albumin level of 2.0. s/p IV albumin 07/12/23. 10. Urinary retention. Caldwell catheter had to be reinserted. On Flomax. 11. Metabolic acidosis secondary to acute kidney injury. On oral bicarb. Better. Plan: Continue IV Lasix for edema. Maintain 1500 cc fluid restriction. Avoid nephrotoxins. Continue to monitor renal function and urine output. Maintain midodrine. Hold for systolic blood pressure greater than 110. A.m. cortisol level not low. Conservative measures. Family considering comfort measures as well.
--- NOTE | 2023-07-21 18:35 | P.PN ---
Subjective Progress Note Date: 07/21/23 82-year-old lady with past medical history significant for congestive heart failure, atrial fibrillation with RVR,presented to the ER because of worsening shortness of breath. Patient was only recently discharged on 06/25 after being treated in the hospital for similar complaints.after discharge, patient was all right for 1 day but started noticing that she was getting more short of breath on exertion. Patient denied any chest pain. There was no complain of orthopnea or PND. There was no complain of swelling of feet. There was no complain of fever or chills. Patient oxygen requirements were also increasing so she was transferred back to the ER Initial lab work done in the ER showed WBC 28, hemoglobin 10.5, platelet count 332, INR 3.7, sodium 138, potassium 6.2, BUN 79, creatinine1.71, AST 378, ALT 350, troponin 0.247 EKG done in the ER showed heart rate of 81 , no ST segment elevation or depression seen, no T-wave inversions seen. Chest x-ray done in the ER showed cardiomegaly and moderate vascular congestion Patient admitted to internal medicine service 07/20/2023 Patient is seen and evaluated with family at bedside; the same, not in any distress, on 2 L nasal cannula O2 sats of 93% patient is fluid overloaded today and has been placed on Lasix 40 mg IV twice daily by pulmonary service WBC count today is 13.8 hemoglobin 8.9 INR is 3.7 basic metabolic profile is normal BUN is 54 creatinine 0.78 --Family has decided to proceed with an informational visit with hospice care 07/21/2023 Patient is seen and discussed with nursing staff; family has decided to proceed with comfort care -Comfort care measures are ordered with IV morphine and Ativan; hospice has been consulted Objective - Vital Signs Vital signs: Vital Signs Temp 97.8 F 07/20/23 14:14 Pulse 61 07/20/23 14:14 Resp 26 H 07/21/23 11:11 BP 89/53 07/20/23 14:14 Pulse Ox 91 L 07/20/23 14:14 FiO2 21 07/05/23 07:54 Intake & Output 07/20/23 07/21/23 07/21/23 18:59 06:59 18:59 Intake Total 50 2.805 Balance 50 2.805 Intake: Intake, IV Titration 50 2.805 Amount DAPTOmycin 225 mg In 50 Sodium Chloride 0.9% 50 ml @ 100 mls/hr IVPB Q24H [facility] Rx#:[id number] Morphine Sulfate (100 mg/ 2.805 2 ml) 100 mg In Sodium Chloride 0.9% 100 ml @ 1 MG/HR 1.02 mls/hr IV . Q24H [facility] Rx#:[id number] Other: Voiding Method Indwelling Catheter Indwelling Catheter # Bowel Movements 1 - Exam Patient is minimally responsive at this time HEENT: Normocephalic. CARDIAC: Normal S1, S2 with no gallops. No murmurs ABDOMEN: Soft. Bowel sounds normal. No organomegaly. No abdominal bruits. Extremities: reveal no edema. No clubbing or cyanosis Neurologically awake, alert, oriented x 1-2 able to move all extremities. No gross focal deficits noted Skin: No rash or skin lesions. Psychiatric: Coperative. Could not be assessed completely Musculoskeletal: No joint swelling or deformity. - Labs CBC & Chem 7: 07/20/23 06:14 07/20/23 05:59 Assessment and Plan Assessment: * Left abdominal rectus sheath hematoma improved. Hemoglobin is fairly stable. * Acute on chronic diastolic heart failure; Moderate to severe mitral calcification, moderate to severe mitral stenosis, mild aortic regurgitation and stenosis, Severe Pulmonary hypertension WHO class II. * Acute hypoxic respiratory failure due to asthma exacerbation; was requiring 6L and has weaned to 2 L. * Non-ST elevation [place] * Hyperkalemia RESOLVED * Anemia iron deficient with acute blood loss anemia from the left rectus sheath hematoma * Acute transaminitis with concern for acute cholecystitis, HIDA scan normal. Not a surgical candidate at this time. * Urinary tract infection with VRE * Acute kidney injury due to ATN severe sepsis. Improving. * Recent hospitalization for COVID in May, PCR still positive; not in active infection. * Supratherapeutic INR on admission while on Coumadin * Paroxysmal atrial fibrillation * History of coronary artery disease with previous PCI/stent x3 * History of hyperlipidemia * History of hypertension * Rheumatoid arthritis * Hypothyroidism. Started back on levothyroxine. * Mild protein calorie malnutrition * Stage 2 pressure injury on right and left buttock present on admission * Sacral decubitus ulcer, unstageable present on admission. * Lifelong non-smoker Plan * In regards to atrial fibrillation patient was started on amiodarone and Coumadin however amiodarone was discontinued and patient was transition to dronedarone , continue telemonitoring * In regards to [id number] continue patient on midodrine for blood pressure support, Lasix placed on hold on 07/13 due to hypotension * In regards to urinary tract infection and pneumonia , was on cefepime, completed antibiotic course, already started on daptomycin by infectious disease secondary to VRE * In regards to anemia patient given IV iron replacement , received 1 unit of packed RBC earlier in hospitalization second unit ordered on 07/15/2023 * In regards to rectus sheath hematoma and anemia >> Coumadin resumed 07/07 follow-up on INR 1.4, monitor hemoglobin * In regards to generalized debility and dysphagia patient seen by speech therapy as well as physical therapy patient was started on amiodarone and warfarin back on 06/18 due to findings of atrial fibrillation with RVR and severe mitral stenosis. Cardiology has concerns for interstitial lung disease and amiodarone has been discontinued. Patient has been started on dronedarone. * In regards to hypothyroidism continue patient on Synthyroid follow-up on TSH in 4 weeks * In regards to malnutrition patient started on Megace * Due to multiple complex medical issues, overall prognosis is guarded. PT OT is on board. * Discussed with family regarding goals of care and currently would like to continue with full code. * Patient will be reevaluated by speech pathology and also dietitian consult.
--- NOTE | 2023-07-23 22:52 | CDI ---
Documentation Clarification Form Date: 07/23/2023 10:37:11 PM From: Madeleine Olsen Phone: Admit Date: 06/29/2023 01:11:00 AM Patient Name: Juan Francisco Grande Visit Number: [id number] Discharge Date: 07/21/2023 03:01:00 PM ATTENTION: The Clinical Documentation Specialists (CDI) and [facility] Coding Staff appreciate your assistance in clarifying documentation. Please respond to the clarification below the line at the bottom and electronically sign. The CDI & [facility] Coding staff will review the response and follow-up if needed. Please note: Queries are made part of the Legal Health Record. If you have any questions, please contact the author of this message via ITS. Dr. Kian Kennedy UTI is documented per ED Note and throughout and patient has an Indwelling catheter. Additional clarification regarding the etiology of the UTI is requested. History/Risk Factors: 82yo F, ACHRF, NSTEMI, hyperkalemia, HTN, MS/AR, LETICIA on CKD, acutetransaminitis, AE mild intermittent chronicbronchial asthma, CAD/stentx3, HLD, PHTNWHO class II & III, RA,hypothyroidism, COVID w PNA, mild PCM Clinical Indicators: Urinalysis: Cloudy, Urine Blood, Urine Urobilinogen Urine culture: Chaparrita albicans, Enterococcus gallinarum WBC urine: 06/28 17 07/09 >182 Treatment: Vancomycin Please clarify the etiology of the UTI, if known: [ x ] Caldwell catheter [ ] UTI not related to catheter/urostomy [ ] Other condition, please specify [ ] Unable to determine (Template Last Revised: May 2020) MTDD
--- NOTE | 2023-07-23 23:01 | CDI ---
Documentation Clarification Form Date: 07/23/2023 10:52:00 PM From: Madeleine Olsen Phone: Admit Date: 06/29/2023 01:11:00 AM Patient Name: Juan Francisco Grande Visit Number: [id number] Discharge Date: 07/21/2023 03:01:00 PM ATTENTION: The Clinical Documentation Specialists (CDI) and [facility] Coding Staff appreciate your assistance in clarifying documentation. Please respond to the clarification below the line at the bottom and electronically sign. The CDI & [facility] Coding staff will review the response and follow-up if needed. Please note: Queries are made part of the Legal Health Record. If you have any questions, please contact the author of this message via ITS. Dr. Karin Tinajero Unspecified CKD is documented Progress Note 06/29. Additional clarification regarding the stage of CKD is requested. History/Risk Factors: 82yo F, PAF, ACHRF, NSTEMI, hyperkalemia, COVID w PNA, mild PCM LETICIA on CKD, acute transaminases, AE mild intermittent chronic bronchial asthma, CAD/stent x3, HLD, HTN, MS/AR, PHTN WHO class II & III, RA, hypothyroidism Clinical Indicators: Current BUN: 79 CR: 1.71 AfAm: 32 NonAf: 28 Treatment: Nephrology is addressing herabnormalrenal profile andhyperkalemia Please clarify the stage of the CKD, if known: [ ] CKD Stage 3b [ ] CKD Stage 4 [ x] Other, please specify ____NO CKD [ ] Unable to determine Reference: [employer] Stage 1 eGFR = 90 and kidney damage for =3 months Stage 2 eGFR 60-89 and kidney damage for =3 months Stage 3a eGFR 45-59 and kidney damage for =3 months Stage 3b eGFR 30-44 and kidney damage for =3 months Stage 4 eGFR 15-29 r and kidney damage for =3 months Stage 5 eGFR <15 and kidney damage for =3 months (Template last revised: March 2023) JUANID
== END 2023-07-21 15:01 | disposition expired | DRG 698 ==
LOC: EC 23:30 → 3SCARD 06-29 01:11 → 2SICU 06-29 02:32 → 3SCARD 06-30 10:19 → 4SSUR 06-30 13:38
PROVIDERS: ADMIT Hospitalist; ATTEND Hospitalist
PROC: 30233N1 Transfusion of Nonautologous Red Blood Cells into Peripheral Vein, Percutaneous Approach (ICD-10-PCS; principal; 2023-07-02)
PROC: 30233J1 Transfusion of Nonautologous Serum Albumin into Peripheral Vein, Percutaneous Approach (ICD-10-PCS; 2023-07-12)
DX: T83.511A Infection and inflammatory reaction due to indwelling urethral catheter, initial encounter (principal); A41.81 Sepsis due to Enterococcus; N17.0 Acute kidney failure with tubular necrosis; R65.20 Severe sepsis without septic shock; I21.4 Non-ST elevation (NSTEMI) myocardial infarction; I50.33 Acute on chronic diastolic (congestive) heart failure; J96.21 Acute and chronic respiratory failure with hypoxia; J12.82 Pneumonia due to coronavirus disease 2019; U07.1 COVID-19; E44.1 Mild protein-calorie malnutrition; D68.32 Hemorrhagic disorder due to extrinsic circulating anticoagulants; J44.1 Chronic obstructive pulmonary disease with (acute) exacerbation; J44.0 Chronic obstructive pulmonary disease with (acute) lower respiratory infection; J84.9 Interstitial pulmonary disease, unspecified; K80.00 Calculus of gallbladder with acute cholecystitis without obstruction; R18.8 Other ascites; E87.20 Acidosis, unspecified; J45.21 Mild intermittent asthma with (acute) exacerbation; D62 Acute posthemorrhagic anemia; E87.1 Hypo-osmolality and hyponatremia; Z16.21 Resistance to vancomycin; B37.49 Other urogenital candidiasis; Z68.1 Body mass index [BMI] 19.9 or less, adult; I27.22 Pulmonary hypertension due to left heart disease; I27.23 Pulmonary hypertension due to lung diseases and hypoxia; Z51.5 Encounter for palliative care; Z66 Do not resuscitate; M06.9 Rheumatoid arthritis, unspecified; L89.150 Pressure ulcer of sacral region, unstageable; L89.322 Pressure ulcer of left buttock, stage 2; L89.312 Pressure ulcer of right buttock, stage 2; I11.0 Hypertensive heart disease with heart failure; I48.0 Paroxysmal atrial fibrillation; Z79.4 Long term (current) use of insulin; K76.0 Fatty (change of) liver, not elsewhere classified; D50.9 Iron deficiency anemia, unspecified; I08.0 Rheumatic disorders of both mitral and aortic valves; E03.9 Hypothyroidism, unspecified; R62.7 Adult failure to thrive; E88.09 Other disorders of plasma-protein metabolism, not elsewhere classified; I95.9 Hypotension, unspecified; R54 Age-related physical debility; T45.515A Adverse effect of anticoagulants, initial encounter; R13.10 Dysphagia, unspecified; R19.7 Diarrhea, unspecified; B95.2 Enterococcus as the cause of diseases classified elsewhere; E87.5 Hyperkalemia; E78.5 Hyperlipidemia, unspecified; I25.10 Atherosclerotic heart disease of native coronary artery without angina pectoris; T46.2X5A Adverse effect of other antidysrhythmic drugs, initial encounter; R33.9 Retention of urine, unspecified; S30.1XXA Contusion of abdominal wall, initial encounter; Y73.1 Therapeutic (nonsurgical) and rehabilitative gastroenterology and urology devices associated with adverse incidents; Z96.651 Presence of right artificial knee joint; I25.2 Old myocardial infarction; Z95.5 Presence of coronary angioplasty implant and graft; Z79.83 Long term (current) use of bisphosphonates; Z79.51 Long term (current) use of inhaled steroids; Z79.899 Other long term (current) drug therapy; Z79.84 Long term (current) use of oral hypoglycemic drugs; Z79.890 Hormone replacement therapy; Z79.82 Long term (current) use of aspirin; Z79.01 Long term (current) use of anticoagulants; Z88.8 Allergy status to other drugs, medicaments and biological substances; Z88.0 Allergy status to penicillin; Z88.1 Allergy status to other antibiotic agents; Z91.81 History of falling; Z87.01 Personal history of pneumonia (recurrent); Z86.16 Personal history of COVID-19; Z74.01 Bed confinement status
CPT/HCPCS: 36410; 36415; 36600; 71045; 71046; 74018; 74176; 76705; 76770; 76937; 78226; 80048; 80053; 80202; 80306; 81001; 82533; 82565; 82728; 82805; 83540; 83550; 83735; 83880; 84100; 84145; 84439; 84443; 84484; 85025; 85027; 85610; 85730; 86140; 86850; 86900; 86901; 86920; 87040; 87070; 87077; 87086; 87186; 87324; 87635; 93005; 93306; 94640; 94760; 96361; 96365; 96366; 96367; 96368; 96375; 99291